=== PATIENT | female | born 1960 | race Caucasian/White ===

== ENCOUNTER 2018-04-19 13:25 | Outpatient (REF) | payer OTHER, SELFPAY ==
[2018-04-19 15:29] LABS: Anion Gap 6.9 mmol/L (3-11); BUN 18 mg/dL (7-18); CO2 33.1 mmol/L (21.0-32.0); CREATININE 1.08 mg/dL (0.55-1.02); Calcium 9.5 mg/dL (8.5-10.1); Chloride 98 mmol/L (98-107); Cholesterol 197 mg/dL (50-200); Estimated GFR 51.93 (mL/min/1.73m2); Glucose 104 mg/dL (70-100); HDL Cholesterol 79 mg/dL (40-60); LDL CHOLESTEROL 106 mg/dL (<100); Potassium 4.8 mmol/L (3.5-5.1); Sodium 138 mmol/L (136-145); Triglyceride 98 mg/dL (30-150)
[2018-04-22 10:33] LABS: Hepatitis C Ab w Rflx HCV PCR Negative (NEGAT)
== END 2018-04-19 13:45 ==
LOC: NCHCN 13:25
PROVIDERS: PCP Family Medicine; Visit Provider Family Medicine
DX: Z00.00 Encounter for general adult medical examination without abnormal findings (principal); Z13.220 Encounter for screening for lipoid disorders; Z11.59 Encounter for screening for other viral diseases; I42.9 Cardiomyopathy, unspecified; I10 Essential (primary) hypertension
CPT/HCPCS: 80048; 80061; 83721; 86803

== ENCOUNTER 2018-05-15 02:19 | Outpatient (CLI) | payer OTHER, SELFPAY ==
--- NOTE | 2018-06-10 09:31 | ZIOP_ITS ---
ZIO Patch Report DATE OF DICTATION June 10, [address] 14 days, May 15 - May 29, 2018 COMMENTS Baseline rhythm sinus. Rare single PAC. SVT noted 34 times, longest run 20 beat duration, fastest 138 beats per minute. Rare single PVC, less than 1% total beat. Rare couplet. Rare triplet. No VT. No bradycardia or block. No triggered events. No symptoms. Average rate sinus. 61 beats per minute, range 47 - 191 beats per minute. Luiz Malagon M.D. ELIA/solo T - 06/10/2018
== END 2018-05-15 02:39 ==
PROVIDERS: PCP Family Medicine; Visit Provider Family Medicine
DX: I48.91 Unspecified atrial fibrillation (principal)
CPT/HCPCS: 93225

== ENCOUNTER 2018-05-16 15:47 | Outpatient (RCR) | payer OTHER, SELFPAY ==
--- NOTE | 2018-05-16 15:48 | COCO.CNN ---
Primary Reason for Visit Medical/Dental/Vision Referral to Care Coordination Referral to Care Coordination: No Type: Other Referral to Services: No - Referral From Referral From: Self Care Plan - Plan of Care Assessment/Background: 2nd [facility] visit. Reviewed COPD triggers, provided cleaning supplies and education about making your own cleaning supplies. provided an air purifier and education about maintenance. Also provided wedge pillow. Advised client that Vacuum and matress cover had not arrived yet. Plan of Care: provide Vacuum and instruct on use.
--- NOTE | 2018-05-16 15:54 | PDOC.CNN_ITS ---
Primary Reason for Visit Medical/Dental/Vision Referral to Care Coordination Referral to Care Coordination: No Type: Other Referral to Services: No - Referral From Referral From: Self Care Plan - Plan of Care Assessment/Background: 2nd [facility] visit. Reviewed COPD triggers, provided cleaning supplies and education about making your own cleaning supplies. provided an air purifier and education about maintenance. Also provided wedge pillow. Advised client that Vacuum and matress cover had not arrived yet. Plan of Care: provide Vacuum and instruct on use.
== END 2018-06-14 23:59 | disposition home or self-care (01) ==
LOC: COCO 15:47
PROVIDERS: PCP Family Medicine; Visit Provider Family Medicine

== ENCOUNTER 2018-06-12 09:13 | Outpatient (CLI) | payer OTHER, SELFPAY ==
[2018-06-12 10:26] LABS: BUN 7 mg/dL (7-18); CREATININE 0.75 mg/dL (0.55-1.02); Calcium 9.2 mg/dL (8.5-10.1); Chloride 88 mmol/L (98-107); Glucose 95 mg/dL (70-100); Potassium 4.9 mmol/L (3.5-5.1); Sodium 125 mmol/L (136-145)
== END 2018-06-12 09:33 ==
PROVIDERS: PCP Family Medicine; Visit Provider Family Medicine
DX: I10 Essential (primary) hypertension (principal)
CPT/HCPCS: 36415; 80048

== ENCOUNTER 2018-07-03 10:11 | Outpatient (REF) | payer OTHER, SELFPAY ==
[2018-07-03 12:49] LABS: BUN 14 mg/dL (7-18); CREATININE 0.85 mg/dL (0.55-1.02); Calcium 9.6 mg/dL (8.5-10.1); Chloride 86 mmol/L (98-107); Glucose 102 mg/dL (70-100); Potassium 4.7 mmol/L (3.5-5.1)
[2018-07-03 14:05] LABS: Sodium 124 mmol/L (136-145)
== END 2018-07-03 10:31 ==
LOC: NCHCN 10:11
PROVIDERS: PCP Family Medicine; Visit Provider Family Medicine
DX: E87.1 Hypo-osmolality and hyponatremia (principal)
CPT/HCPCS: 80048

== ENCOUNTER 2018-07-12 10:38 | Outpatient (REF) | payer OTHER, SELFPAY ==
[2018-07-12 15:13] LABS: Anion Gap 7.3 mmol/L (3-11); BUN 8 mg/dL (7-18); CO2 28.7 mmol/L (21.0-32.0); CREATININE 0.86 mg/dL (0.55-1.02); Chloride 90 mmol/L (98-107); Glucose 99 mg/dL (70-100); Potassium 4.7 mmol/L (3.5-5.1); Sodium 126 mmol/L (136-145)
== END 2018-07-12 10:58 ==
LOC: NCHCN 10:38
PROVIDERS: PCP Family Medicine; Visit Provider Family Medicine
DX: E87.1 Hypo-osmolality and hyponatremia (principal)
CPT/HCPCS: 80048

== ENCOUNTER 2018-12-27 12:58 | Outpatient (REF) | payer OTHER, SELFPAY ==
[2018-12-27 19:58] LABS: Anion Gap 6.8 mmol/L (3-11); BUN 12 mg/dL (7-18); CO2 28.2 mmol/L (21.0-32.0); CREATININE 0.87 mg/dL (0.55-1.02); Calcium 9.2 mg/dL (8.5-10.1); Chloride 85 mmol/L (98-107); Glucose 107 mg/dL (70-100); Potassium 3.9 mmol/L (3.5-5.1)
[2018-12-27 20:03] LABS: Sodium 120 mmol/L (136-145)
== END 2018-12-27 13:18 ==
LOC: NCHCN 12:58
PROVIDERS: PCP Family Medicine; Visit Provider Family Medicine
DX: E87.1 Hypo-osmolality and hyponatremia (principal)
CPT/HCPCS: 80048

== ENCOUNTER 2019-01-12 15:40 | Emergency (ER) | payer OTHER, SELFPAY ==
[2019-01-12] VITALS (12 sets, daily range): BP systolic 120–136; BP diastolic 68–85; PULSE 72–90; RESP 16; TEMP 36–37.6; O2SAT 92–96
[2019-01-12] MEDS: Ondansetron 4 MG/2 ML VIAL IVP (16:08)
[2019-01-12] MEDS: Normal Saline 250 ML 500 ML IV (16:08)
--- NOTE | 2019-01-12 16:13 | ED.GENADUL_ITS ---
Discharge Plan Disposition Patient Disposition: HOME Condition: Stable Discharge Details Chief Complaint: Nausea/Vomit/Diar Clinical Impression: Nausea & vomiting, Hyponatremia, Hypomagnesemia Primary Care Provider: Hardy Eagle ED Provider: Luiz Chery Home Meds and New Rx's Prescriptions: New ondansetron 4 mg tablet,disintegrating 4 mg PO QID 5 Days Qty: 20 RF: 0 Continued nicotine 14 MG/24 HR patch 24 hour 14 mg Transdermal DAILY PRN PRNQty: 7 RF: 0 multivit, iron, min no.8, FA [Therapeutic-M] 1 TAB tablet 1 tab PO BID Qty: 200 RF: 0 fluoxetine 10 MG tablet 10 mg PO DAILY Qty: 30 RF: 1 folic acid 1 MG tablet 1 mg PO DAILY Qty: 100 RF: 0 lisinopril 5 MG tablet 5 mg PO DAILY Qty: 30 RF: 1 metoprolol tartrate 100 MG tablet 100 mg PO BID Qty: 60 RF: 1 furosemide 20 MG tablet 20 mg PO QAM Qty: 30 RF: 1 ipratropium bromide 0.2 MG/ML solution 0.2 mg Inhalation BID Qty: 25 RF: 1 albuterol sulfate 0.63 MG/3 ML solution for nebulization 0.63 mg Inhalation BID Qty: 25 RF: 1 ciprofloxacin HCl 500 MG tablet 500 mg PO BID Qty: 20 RF: 0 famotidine 20 MG tablet 20 mg PO BID Qty: 60 RF: 1 Discharge Instructions Instructions: Hyponatremia (ED), Hypomagnesemia (ED) Additional Instructions: your sodium and magnesium was found to be low and you also had evidence of dehydration from the nausea and vomit Continue to use the ondansetron every 4 hours as needed for nausea/vomit follow up this week with your primary care provider's office and you will likely need your sodium and magnesium level along with your kidney function rechecked if you feel you are becoming more ill, have persistent vomit despite medications or new symptoms such as severe abdominal pain return to the emergency department Medical Decision Making 58 yo female comes in with 3-4 days of n/v. She denies recent travel, new foods or known sick contacts. She can't think of anything that makes it better or worse. She is sitting in the stretcher in n odistress speaking in full sentences. She denies chest pain or pressure or abdominal pain nor sob. She has no abdominal tenderness or distention on exam. Given her exam I feel it is unlikely she has acute surgical pathology such as cholecystitis, sbo or other surgical pathology so do not feel ct imaging indicated at this time. Given no chest pain or pressure or sob do not feel acs workup indicated. Will tx her symptoms and evaluate for electrolyte abnormalities and monitor pt remains stable and is ambulating and drinking fluids without problems and states she feels better and has no complaints now and still has no abdominal pain. Her labs are notable for nonspecifi leukocytosis, is not having any fevers or other infectious symptoms so doubt infectious etiology at this time. Also has low mag and Na of 125. She does have hx of having low Na and with her hx of cardiomyopathy and being on lasix suspect this as the cause. Given she feels better and is tolerating PO I feel discharge with outpatient f/u is reasonable and the patient is also in agreement with this and feels well to go home. She understands to return immediately if worsening and to f/u with pcp this week Differential Diagnosis pancreatitis, food illness, colitis, gastroenteritis Medical Records Medical records reviewed: Yes I reviewed the patient's medical records. Lab Data Lab results reviewed: Yes I reviewed the patient's lab results. HPI General Mode of arrival: wheelchair . Date/Time Provider Initiated Documentation: 01/12/19 15:45 . Limitations to Documentation: no limitations . Information obtained by: patient . History of Present Illness 58 year old F presents to the emergency department with the chief complaint of vomit, described as moderate, Patient started experiencing this day(s) (4) and it has been constant. No relieving factors improve symptom(s), No exacerbating factors reported . Patient notes no other symptoms.. Patient did receive the following treatments prior to arrival, none Related Data Home Medications Medication Instructions Recorded Confirmed albuterol sulfate 0.63 mg INHALATION BID #25 vial.neb 07/10/16 ciprofloxacin HCl 500 mg PO BID #20 tab 07/10/16 famotidine 20 mg PO BID #60 tab 07/10/16 fluoxetine 10 mg PO DAILY #30 tab 07/10/16 folic acid 1 mg PO DAILY #100 tab 07/10/16 furosemide 20 mg PO QAM #30 tablet 07/10/16 ipratropium bromide 0.2 mg INHALATION BID #25 solution 07/10/16 lisinopril 5 mg PO DAILY #30 tab 07/10/16 metoprolol tartrate 100 mg PO BID #60 tablet 07/10/16 multivit, iron, min no.8, FA 1 tab PO BID #200 tab 07/10/16 [Therapeutic-M] nicotine 14 mg TRANSDERMAL DAILY PRN PRN #7 07/10/16 patch ondansetron 4 mg PO QID 5 Days #20 tab 01/12/19 Previous Rx's Medication Instructions Recorded albuterol sulfate 0.63 mg INHALATION BID #25 vial.neb 07/10/16 ciprofloxacin HCl 500 mg PO BID #20 tab 07/10/16 famotidine 20 mg PO BID #60 tab 07/10/16 fluoxetine 10 mg PO DAILY #30 tab 07/10/16 folic acid 1 mg PO DAILY #100 tab 07/10/16 furosemide 20 mg PO QAM #30 tablet 07/10/16 ipratropium bromide 0.2 mg INHALATION BID #25 solution 07/10/16 lisinopril 5 mg PO DAILY #30 tab 07/10/16 metoprolol tartrate 100 mg PO BID #60 tablet 07/10/16 multivit, iron, min no.8, FA 1 tab PO BID #200 tab 07/10/16 [Therapeutic-M] nicotine 14 mg TRANSDERMAL DAILY PRN PRN #7 07/10/16 patch ondansetron 4 mg PO QID 5 Days #20 tab 01/12/19 Allergies Allergy/AdvReac Type Severity Reaction Status Date / Time No Known Allergies Allergy Unverified 07/04/16 09:45 General Stated Complaint: Nausea/Vomit/Diar MAYA: 3 Review of Systems Review of Systems All systems reviewed & are unremarkable except as noted in HPI and below Constitutional Denies chills, Denies fever(s) and Denies weakness ENT Denies change in voice Cardiovascular Denies chest pain and Denies dyspnea Respiratory Denies cough and Denies dyspnea Gastrointestinal Denies abdominal pain and Denies vomiting Genitourinary Denies dysuria Musculoskeletal Denies joint swelling Integumentary/Breasts Denies rash Neurologic Denies weakness PFSH Medical History COPD (chronic obstructive pulmonary disease) (Chronic) Surgical History EGD - MAC (07/04/16) Social History Smoking/Tobacco Use Status: Former Tobacco Use Alcohol Intake: former Substance use type: does not use Do you feel safe in your relationship?: Yes Exam Const General: no acute distress Orientation: alert HENNJ Head: normal to inspection Ears: external ears normal General nose exam: external nose normal Mouth: moist mucous membranes Eyes General: appearance normal, both eyes and all related structures Neck Neck: normal visual inspection Resp Effort & Inspection: normal respiratory effort and able to speak in complete sentences Cardio Rate: regular rate Skin General skin exam: no rashes or lesions noted Neuro General: alert and oriented x3 Extrem General: normal to inspection Psych Mental Status: mental status grossly normal Course Vital Signs Temperature 36 C L 01/12/19 15:52 Pulse 90 01/12/19 15:52 Respiratory Rate 16 01/12/19 15:52 Blood Pressure 120/68 01/12/19 15:52 Pulse Oximetry 92 L 01/12/19 15:52 Temperature 36 C L 01/12/19 15:52 Temperature Source Temporal Artery Scan 01/12/19 15:52 Pulse 90 01/12/19 15:52 Respiratory Rate 16 01/12/19 15:52 Respiratory Effort 01/12/19 15:54 Blood Pressure 120/68 01/12/19 15:52 Pulse Oximetry 92 L 01/12/19 15:52 Oxygen Delivery Method Room Air 01/12/19 15:52 Oxygen Flow Rate 0 01/12/19 15:52 Pain Level 4 01/12/19 16:08
[2019-01-12 16:25] LABS: Abs Immature Grans 0.11 k/cumm (0.0-0.09); Absolute Basophil Count 0.03 k/cumm (0.0-0.2); Absolute Eosinophil Count 0.06 k/cumm (0.0-0.7); Absolute Neutrophil Count 13.09 k/cumm (1.2-6.7); Basophils % 0.2; Eosinophils % 0.4; HCT 43.2 % (36.0-46.0); HGB 15.1 g/dL (12.0-15.5); Immature Grans % 0.7; Lymphocytes % 7.8; Mean Corpuscular Hemoglobin 29.7 pg (27.0-33.0); Mean Platelet Volume 8.4 fL (8.0-11.0); Monocytes % 8.8; Neutrophils % 82.1; Platelet Count 354 x1000/uL (130-400); RBC 5.08 m/cumm (4.00-5.20); RBC Distribution Width 13.3 % (11.7-14.6); White Blood Cell Count 15.95 k/cumm (4.4-10.8)
[2019-01-12 16:29] LABS: Absolute Lymphocyte Count 1.24 k/cumm (1.2-3.4)
[2019-01-12 16:40] LABS: ALT 24 U/L (12-78); AST 16 U/L (15-37); Alkaline Phosphatase 103 U/L (46-116); Anion Gap 12.3 mmol/L (3-11); BUN 34 mg/dL (7-18); Bilirubin, Total 1.2 mg/dL (0.2-1.0); CO2 29.7 mmol/L (21.0-32.0); CREATININE 1.44 mg/dL (0.55-1.02); Chloride 83 mmol/L (98-107); Estimated GFR 37.13 (mL/min/1.73m2); Glucose 115 mg/dL (70-100); Lipase 243 U/L (73-393); Magnesium 1.5 mg/dL (1.8-2.4); Potassium 3.9 mmol/L (3.5-5.1); Prothrombin Time 10.1 sec (9.3-11.0)
[2019-01-12 16:43] LABS: Sodium 125 mmol/L (136-145)
--- NOTE | 2019-01-18 11:40 | NUR.NOTE ---
PCP referral faxed to patient's pcp [facility]. Dr. Eagle.Nursing Note:
== END 2019-01-12 17:23 | disposition home or self-care (01) ==
LOC: ER 17:27
PROVIDERS: Emergency Provider Emergency Medicine; PCP Family Medicine
DX: R11.2 Nausea with vomiting, unspecified (principal); E87.1 Hypo-osmolality and hyponatremia; E83.42 Hypomagnesemia; E86.0 Dehydration; I42.9 Cardiomyopathy, unspecified; J44.9 Chronic obstructive pulmonary disease, unspecified; Z87.891 Personal history of nicotine dependence
CPT/HCPCS: 80053; 83690; 96361; 96374; 99284; 83735; 85025; 85610; 85730; 99283; J2405

== ENCOUNTER 2019-01-14 08:30 | Observation (INO) | payer OTHER, SELFPAY ==
[2019-01-14] VITALS (7 sets, daily range): BP systolic 101–129; BP diastolic 65–84; PULSE 69–107; RESP 1–18; TEMP 36.2–37.1; O2SAT 87–94
--- NOTE | 2019-01-14 08:47 | ED.GENADUL_ITS ---
Discharge Plan Disposition Patient Disposition: [facility]IENT Condition: Stable Discharge Details Chief Complaint: Nausea/Vomit/Diar Clinical Impression: Inguinal hernia of left side with obstruction Admit Date/Time: 01/14/19 11:56 Admit Provider: Odette Cormier Attending Provider: Odette Cormier Primary Care Provider: [facility] Eagle ED Provider: Roni Scott Discharge Data Discharge Date/Time-TO BE ENTERED AT DEPARTURE: 01/14/19 13:02 Medical Decision Making Patient presenting to the emergency department for chief complaint of nausea vomiting. Patient states this been going on for 5 days. She denies any fever chills, belly pain, spoiled or rotten food that she is eaten, or diarrhea. She does state that she was seen here couple days ago and her sodium was low and was slightly dehydrated. Patient does state history of low sodium in the past. Patient denies any chest pain, shortness of breath, or difficulty breathing,. Physical exam shows a distended but nontender abdomen, hypoactive bowel sounds, no CVA tenderness and otherwise unremarkable examination. Plan to check labs and CT imaging given the patient is having continued symptoms and was not imaged during previous visit. Pending results patient given Phenergan and IV fluids Review of labs show hyponatremia, decreased renal function, and nonspecific leukocytosis. Speaking with radiologist and review of radiological imaging shows a left inguinal hernia that also does show evidence of bowel obstruction. Lactate was ordered and reviewed at 1.7. Did call and speak with Dr. Cormier who came and evaluated the patient. She was able to reduce the hernia in the emergency department but did recommend admission due to hydration status and continued nausea vomiting. Patient was in agreement with this plan of care. HPI General Mode of arrival: ambulatory . Date/Time Provider Initiated Documentation: 01/14/19 08:36 . Limitations to Documentation: no limitations . Information obtained by: patient, RN notes reviewed and old records reviewed . History of Present Illness 58 year old F presents to the emergency department with the chief complaint of Nausea vomiting, described as moderate and similar to prior episodes, Quality is described as other (Denies abdominal pain), Patient started experiencing this day(s) (5) and it has been constant and colicky. No relieving factors improve symptom(s), No exacerbating factors reported . Patient did receive the following treatments prior to arrival, none Related Data Home Medications Medication Instructions Recorded Confirmed Therapeutic-M 1 tab PO BID #200 tab 07/10/16 01/15/19 metoprolol tartrate 100 mg PO BID #60 tablet 07/10/16 01/15/19 ondansetron 4 mg PO QID 5 Days #20 tab 01/12/19 01/15/19 albuterol sulfate 2.5 mg INHALATION BID 01/14/19 01/15/19 albuterol sulfate [ProAir HFA] 1 - 2 puff INHALATION PRN PRN 01/14/19 01/15/19 fluoxetine 20 mg PO DAILY 01/14/19 01/15/19 lisinopril 20 mg PO HS 01/14/19 01/15/19 spironolactone 50 mg PO DAILY 01/14/19 01/15/19 fluticasone furoate-vilanterol 1 inh INHALATION DAILY 01/15/19 [Breo Ellipta] Previous Rx's Medication Instructions Recorded Therapeutic-M 1 tab PO BID #200 tab 07/10/16 metoprolol tartrate 100 mg PO BID #60 tablet 07/10/16 ondansetron 4 mg PO QID 5 Days #20 tab 01/12/19 Allergies Allergy/AdvReac Type Severity Reaction Status Date / Time No Known Allergies Allergy Unverified 07/04/16 09:45 General Stated Complaint: Nausea/Vomit/Diar MAYA: 3 Review of Systems Constitutional Reports chills, Reports fever(s) and Reports poor appetite Cardiovascular Denies chest pain and Denies dyspnea Respiratory Denies dyspnea Gastrointestinal Reports as per HPI, Reports abdominal pain, Denies melena, Denies change in bowel habits, Reports constipation, Denies diarrhea, Reports nausea and Reports vomiting Genitourinary Denies hematuria, Denies urinary incontinence, Denies urinary hesitancy and Denies urinary urgency Integumentary/Breasts Denies rash [facility] Medical History History of gastric ulcer (Resolved) History of alcoholism (Resolved) History of CHF (congestive heart failure) (Resolved) Hypertension (Chronic) COPD (chronic obstructive pulmonary disease) (Chronic) Surgical History EGD - MAC (07/04/16) Social History Smoking/Tobacco Use Status: Former Tobacco Use Alcohol Intake: former Substance use type: does not use Do you feel safe at home: Yes Do you feel safe in your relationship?: Yes Exam Const General: cooperative Orientation: alert, awake and oriented x3 Resp Effort & Inspection: normal respiratory effort and able to speak in complete sentences Auscultation: clear to auscultation bilaterally Cardio Rate: regular rate Rhythm: regular rhythm Heart Sounds: S1 normal and S2 normal GI Inspection: distended Palpation: soft, not firm, no guarding, no masses, no pulsatile masses, not rigid, no splenomegaly and nontender Auscultation: hypoactive bowel sounds Back/Spine/Pelvis Back: no CVA tenderness Neuro General: alert, awake, oriented x3, gait normal and moves all extremities Course Vital Signs Temperature 36.8 C 01/14/19 08:40 Pulse 86 01/14/19 08:40 Respiratory Rate 18 01/14/19 08:40 Blood Pressure 103/78 01/14/19 08:40 Pulse Oximetry 94 L 01/14/19 08:40 Temperature 36.8 C 01/14/19 08:40 Temperature Source Skin 01/14/19 08:40 Pulse 86 01/14/19 08:40 Respiratory Rate 18 01/14/19 08:40 Blood Pressure 103/78 01/14/19 08:40 Blood Pressure Position Sitting 01/14/19 08:40 Pulse Oximetry 94 L 01/14/19 08:40
[2019-01-14 09:07] LABS: Abs Immature Grans 0.14 k/cumm (0.0-0.09); Absolute Lymphocyte Count 1.18 k/cumm (1.2-3.4); Basophils % 0.2; Eosinophils % 0.2; HCT 42.2 % (36.0-46.0); HGB 15.1 g/dL (12.0-15.5); Immature Grans % 0.8; Lymphocytes % 6.7; Mean Corp. HGB Concentration 35.8 g/dL (32.0-36.0); Mean Corpuscular Hemoglobin 30.3 pg (27.0-33.0); Mean Corpuscular Volume 84.7 fL (80-95); Mean Platelet Volume 8.7 fL (8.0-11.0); Monocytes % 9.1; Platelet Count 323 x1000/uL (130-400); RBC 4.98 m/cumm (4.00-5.20); RBC Distribution Width 13.2 % (11.7-14.6); White Blood Cell Count 17.58 k/cumm (4.4-10.8)
[2019-01-14 09:08] LABS: Absolute Basophil Count 0.04 k/cumm (0.0-0.2); Absolute Eosinophil Count 0.04 k/cumm (0.0-0.7); Absolute Neutrophil Count 14.59 k/cumm (1.2-6.7)
[2019-01-14] MEDS: Normal Saline 1,000 ML 1000 ML IV ×2 (09:10→12:48)
[2019-01-14 09:21] LABS: Diff Comment Diff Reviewed; RBC Morphology Normal
[2019-01-14 09:44] LABS: ALT 21 U/L (12-78); AST 27 U/L (15-37); Albumin 4.1 g/dL (3.4-5.0); Alkaline Phosphatase 103 U/L (46-116); Anion Gap 14.6 mmol/L (3-11); BUN 57 mg/dL (7-18); Bilirubin, Total 1.2 mg/dL (0.2-1.0); CO2 29.4 mmol/L (21.0-32.0); CREATININE 2.43 mg/dL (0.55-1.02); Calcium 10.3 mg/dL (8.5-10.1); Chloride 80 mmol/L (98-107); Glucose 112 mg/dL (70-100); Lipase 232 U/L (73-393); Magnesium 1.7 mg/dL (1.8-2.4); Potassium 4.6 mmol/L (3.5-5.1); Total Protein 8.3 g/dL (6.4-8.2)
[2019-01-14 09:53] LABS: Sodium 124 mmol/L (136-145)
--- NOTE | 2019-01-14 10:15 | DI.CT_ITS ---
SYMPTOM/DIAGNOSIS: VOMITING, CONSTIPATION. NONCONTRAST CT ABDOMEN AND PELVIS: There are no prior comparison exams. Images were performed from the level of the adrenals through the ischial tuberosities without IV or oral contrast. There is a left inguinal hernia containing a loop of small bowel which appears obstructing. There is some thickening of the bowel wall which could indicate strangulation. There is dilatation of proximal small bowel loops. The stomach is not fully included on the exam. The colon is decompressed. There are a few scattered diverticula. The appendix appears normal. There is no free air or free fluid. The bladder is unremarkable. The uterus is markedly enlarged likely secondary to fibroids. The ovaries are unremarkable. The inferior portions of the liver and spleen appear normal. There is mild bilateral adrenal prominence without focal mass. There is no hydronephrosis or renal calculi. The aorta shows some calcification but is normal in diameter. There are severe degenerative changes as well as scoliosis in the lumbar spine. There is a tiny fatty containing hernia just above the umbilicus IMPRESSION: Left inguinal hernia containing a loop of small bowel causing obstruction.
[2019-01-14 10:36] LABS: Lactate-non-spesis 1.7 mmol/l (0.6-1.4)
--- NOTE | 2019-01-14 12:05 | W.PM.HP.N ---
Date of service: 01/14/19 Time of Service: 12:27 Assessment and Plan (1) Dehydration: Current visit: Yes Status: Acute The patient has had several days of vomiting and poor PO intake. Needs placement in the hospital for fluids and repeat labs. (2) Small bowel obstruction: Current visit: Yes Status: Acute The cause appears to be a left inguinal hernia. This was easily reduced. There is no evidence of ischemia on exam. Needs admission to ensure symptoms to not persist and she can tolerated PO. She did start having stools in the ER. Will plan to repair within the next week or so on an outpatient basis. History of Present Illness Narrative: This 58-year-old patient presented to the emergency department with complaints of vomiting all night long. This is been occurring intermittently for several days. She reports some vague abdominal discomfort but no significant pain. She has been passing flatus although is not having regular bowel movements. She had a CT scan of the abdomen pelvis which I reviewed. There is evidence of a small bowel obstruction with hernia. Patient had noted a bulge there about a year ago but was not recently aware of it. She denies recent bronchitis or pneumonia which may have exacerbated the hernia. She does have a long-standing history of COPD. Review of Systems Constitutional Denies fatigue and Denies headache(s) Eyes Denies change in vision ENT Denies headache(s) and Denies neck mass Cardiovascular Denies chest pain, Denies edema and Denies palpitations Respiratory Denies cough and Denies wheezing Gastrointestinal Denies hematochezia Genitourinary Denies abnormal vaginal bleeding and Denies dysuria Musculoskeletal Denies joint swelling Integumentary/Breasts Denies new lesions and Denies rash Neurologic Denies confusion, Denies headache(s) and Denies focal weakness Psychiatric Reports system reviewed and no additional complaints, except as docu and Denies confusion Endocrine Denies fatigue and Denies palpitations Hematologic/Lymphatic Denies easy bleeding and Denies lymphadenopathy Allergic/Immunologic Denies wheezing [facility] Medical History History of gastric ulcer (Resolved) History of alcoholism (Resolved) History of CHF (congestive heart failure) (Resolved) Hypertension (Chronic) COPD (chronic obstructive pulmonary disease) (Chronic) Surgical History EGD - MAC (07/04/16) Social History Smoking/Tobacco Use Status: Former Tobacco Use Alcohol Intake: former Substance use type: does not use Do you feel safe at home: Yes Do you feel safe in your relationship?: Yes Meds Home Medications Medication Instructions Recorded Confirmed Type albuterol sulfate 0.63 mg INHALATION BID #25 vial.neb 07/10/16 Rx ciprofloxacin HCl 500 mg PO BID #20 tab 07/10/16 Rx famotidine 20 mg PO BID #60 tab 07/10/16 Rx fluoxetine 10 mg PO DAILY #30 tab 07/10/16 Rx folic acid 1 mg PO DAILY #100 tab 07/10/16 Rx furosemide 20 mg PO QAM #30 tablet 07/10/16 Rx ipratropium bromide 0.2 mg INHALATION BID #25 solution 07/10/16 Rx lisinopril 5 mg PO DAILY #30 tab 07/10/16 Rx metoprolol tartrate 100 mg PO BID #60 tablet 07/10/16 Rx multivit, iron, min no.8, FA 1 tab PO BID #200 tab 07/10/16 Rx [Therapeutic-M] nicotine 14 mg TRANSDERMAL DAILY PRN PRN #7 07/10/16 Rx patch ondansetron 4 mg PO QID 5 Days #20 tab 01/12/19 Rx Allergies Allergy/AdvReac Type Severity Reaction Status Date / Time No Known Allergies Allergy Unverified 07/04/16 09:45 Exam Const General: not in acute distress Nutritional Appearance: well nourished Orientation: oriented x3 HENMT Head: normal to inspection Eyes Sclera: sclerae normal Pupils: PERRL Neck Neck: no lymphadenopathy Carotids: no bruits Lymphatic: no lymphadenopathy noted Resp Effort & Inspection: normal respiratory effort Auscultation: clear to auscultation bilaterally and no wheezes Cardio Rate: regular rate Rhythm: regular rhythm Pulses: dorsalis pedis pulses present GI Inspection: non-distended Palpation: soft, no hepatosplenomegaly and nontender Other: Soft, nontender hernia in left groin with bowel present. No overlying skin change. Reduced with gentle pressure. Skin General skin exam: no rashes or lesions noted Neuro General: alert Cognition: normal cognition Extrem General: normal to inspection Psych Affect: normal affect Attitude: cooperative Results Labs : 01/14/19 09:00 01/14/19 09:00 Laboratory Results - last 24 hr 01/14/19 01/14/19 01/14/19 09:00 09:00 10:30 WBC 17.58 H RBC 4.98 Hgb 15.1 Hct 42.2 MCV 84.7 MCH 30.3 MCHC 35.8 RDW 13.2 Plt Count 323 MPV 8.7 Immature Gran % 0.8 Neutrophils % 83.0 Lymphocytes % 6.7 Monocytes % 9.1 Eosinophils % 0.2 Basophils % 0.2 Absolute Neutrophils 14.59 H Absolute Lymphocytes 1.18 L Absolute Monocytes 1.60 H Absolute Eosinophils 0.04 Absolute Basophils 0.04 Differential Comment Diff reviewed RBC Morphology Normal Sodium 124 L* Potassium 4.6 Chloride 80 L Carbon Dioxide 29.4 Anion Gap 14.6 H BUN 57 H D Creatinine 2.43 H D Estimated GFR/1.73 m2 20.30 Glucose 112 H Lactate 1.7 H Calcium 10.3 H Magnesium 1.7 L Total Bilirubin 1.2 H AST 27 ALT 21 Alkaline Phosphatase 103 Total Protein 8.3 H Albumin 4.1 Lipase 232 Last Vital Signs Temp 98.2 F 01/14/19 08:40 Pulse 86 01/14/19 08:40 Resp 18 01/14/19 08:40 BP 103/78 01/14/19 08:40 Pulse Ox 94 L 01/14/19 08:40
[2019-01-14] MEDS: Normal Saline 1,000 ML 125 ML IV ×2 (13:35→22:44)
[2019-01-14] MEDS: Acetaminophen 325 MG TAB 650 MG PO (13:46)
[2019-01-14] MEDS: MORPHine 2 MG/ML SYR IVP ×2 (15:20→21:19)
[2019-01-14 15:56] LABS: Bilirubin Small (Negative); Blood Trace-intact (Negative); Clarity Clear (Clear); Glucose Negative (Negative); Ketones 40 mg/dL (Negative); Leukocyte Esterase Negative (Negative); Nitrite Negative (Negative); Specific Gravity 1.015 (1.005-1.025); Urobilinogen 0.2 EU/dL (Up TO 0.2); pH 5.5 (5-8)
[2019-01-14 16:13] LABS: Bacteria Rare HPF (Negative); C & S Indicated? No; Casts 0-2 Hyaline LPF (Negative); Crystals Negative HPF (Negative); Epithelial Cells Rare HPF (Negative); Mucus Negative (Negative)
[2019-01-14] MEDS: Normal Saline Flush 10 ML SYR IVP (20:06)
[2019-01-14] MEDS: Metoprolol 50 MG TAB 100 MG PO (20:06)
[2019-01-14] MEDS: Famotidine 20 MG TAB PO (20:06)
[2019-01-14] MEDS: Albuterol 2.5 MG/3 ML INH SOLN VIAL IH (20:20)
[2019-01-14] MEDS: Ipratropium 0.5 MG/2.5 ML UPD VIAL IH (20:21)
[2019-01-14] MEDS: Lisinopril 20 MG TAB PO (21:14)
[2019-01-15] MEDS: Normal Saline 1,000 ML 125 ML IV ×2 (06:19→13:58)
--- NOTE | 2019-01-15 06:59 | PGE_ITS ---
Documented by User: KENDALL Min 01/15/19 06:59 Date of Service Date of service: 01/15/19 Time of Service: 06:50 Assessment and Plan (1) Small bowel obstruction: Current visit: Yes Status: Acute Abdominal pain has resolved. (+) BM Tolerating clear liquids. Will progress to soft diet for breakfast denies nausea and vomiting. Disposition- D/C home once tolerating regular diet. (2) Dehydration: Current visit: Yes Status: Acute Subjective Interval history since last seen: I am so much better than yesterday. Denies nausea and vomiting. Diarrhea has resolved, after having multiple BMs yesterday. Denies any abdominal pain. Exam Const General: cooperative, healthy appearing and comfortable Orientation: alert and oriented x3 Resp Effort & Inspection: normal respiratory effort, no audible wheezes and no cough Auscultation: clear to auscultation bilaterally Cardio Rate: regular rate Rhythm: regular rhythm Heart Sounds: S1 normal, S2 normal and no murmurs GI Inspection: normal to inspection and non-distended Palpation: soft, no guarding and nontender Auscultation: normal bowel sounds Objective Objective Clinical Data: Abnormal lab results 01/14/19 01/14/19 01/14/19 Range/Units 09:00 09:00 10:30 WBC 17.58 H (4.4-10.8) k/cumm Absolute Neutrophils 14.59 H (1.2-6.7) k/cumm Absolute Lymphocytes 1.18 L (1.2-3.4) k/cumm Absolute Monocytes 1.60 H (0.11-0.7) k/cumm Sodium 124 L* (136-145) mmol/L Chloride 80 L (98-107) mmol/L Anion Gap 14.6 H (3-11) mmol/L BUN 57 H D (7-18) mg/dL Creatinine 2.43 H D (0.55-1.02) mg/dL Glucose 112 H (70-100) mg/dL Lactate 1.7 H (0.6-1.4) mmol/l Calcium 10.3 H (8.5-10.1) mg/dL Magnesium 1.7 L (1.8-2.4) mg/dL Total Bilirubin 1.2 H (0.2-1.0) mg/dL Total Protein 8.3 H (6.4-8.2) g/dL Urine Ketones (Negative) mg/dL Urine Blood (Negative) Urine Bilirubin (Negative) Urine RBC (0-2) 01/14/19 Range/Units 15:30 WBC (4.4-10.8) k/cumm Absolute Neutrophils (1.2-6.7) k/cumm Absolute Lymphocytes (1.2-3.4) k/cumm Absolute Monocytes (0.11-0.7) k/cumm Sodium (136-145) mmol/L Chloride (98-107) mmol/L Anion Gap (3-11) mmol/L BUN (7-18) mg/dL Creatinine (0.55-1.02) mg/dL Glucose (70-100) mg/dL Lactate (0.6-1.4) mmol/l Calcium (8.5-10.1) mg/dL Magnesium (1.8-2.4) mg/dL Total Bilirubin (0.2-1.0) mg/dL Total Protein (6.4-8.2) g/dL Urine Ketones 40 H (Negative) mg/dL Urine Blood Trace-intact H (Negative) Urine Bilirubin Small H (Negative) Urine RBC 3-5 H (0-2) Vital Signs Temperature 36.2 C L 01/14/19 20:02 Temperature Source Tympanic 01/14/19 20:02 Pulse 107 H 01/14/19 20:02 Pulse Rhythm Regular 01/14/19 21:55 Respiratory Rate 16 01/14/19 20:02 Respiratory Effort 01/14/19 21:55 Respiratory Depth Normal 01/14/19 21:55 Respiratory Pattern Normal 01/14/19 21:55 Blood Pressure 128/84 01/14/19 20:02 Blood Pressure Position Sitting 01/14/19 08:40 Pulse Oximetry 94 L 01/14/19 20:02 Oxygen Delivery Method Room Air 01/14/19 20:02 Oxygen Flow Rate 0 01/14/19 20:02 Pain Level 4 01/14/19 21:19 Comment 01/14/19 16:22 Intake & Output 01/14/19 01/14/19 01/15/19 06:59 18:59 06:59 Intake Total 551 / 3938.917 3387.917 / 3938.917 Output Total 400 / 400 Balance 151 / 3538.917 3387.917 / 3538.917 Weight 69.9 kg Intake: IV 51 / 8843.078 9411. Oral 500 / 0 144 / 1939 Output: Urine 400 / 400 Other: Urine Color Yellow Urine Appearance Clear Comment voiding not witnessed as pt has BRP Stool Size Small Large Stool Characteristics Liquid Brown Voiding Methods Toilet Toilet Laboratory Results WBC 17.58 k/cumm (4.4-10.8) H 01/14/19 09:00 RBC 4.98 m/cumm (4.00-5.20) 01/14/19 09:00 Hgb 15.1 g/dL (12.0-15.5) 01/14/19 09:00 Hct 42.2 % (36.0-46.0) 01/14/19 09:00 MCV 84.7 fL (80-95) 01/14/19 09:00 MCH 30.3 pg (27.0-33.0) 01/14/19 09:00 MCHC 35.8 g/dL (32.0-36.0) 01/14/19 09:00 RDW 13.2 % (11.7-14.6) 01/14/19 09:00 Plt Count 323 x1000/uL (130-400) 01/14/19 09:00 MPV 8.7 fL (8.0-11.0) 01/14/19 09:00 Immature Gran % 0.8 01/14/19 09:00 Neutrophils % 83.0 01/14/19 09:00 Lymphocytes % 6.7 01/14/19 09:00 Monocytes % 9.1 01/14/19 09:00 Eosinophils % 0.2 01/14/19 09:00 Basophils % 0.2 01/14/19 09:00 Absolute Neutrophils 14.59 k/cumm (1.2-6.7) H 01/14/19 09:00 Absolute Lymphocytes 1.18 k/cumm (1.2-3.4) L 01/14/19 09:00 Absolute Monocytes 1.60 k/cumm (0.11-0.7) H 01/14/19 09:00 Absolute Eosinophils 0.04 k/cumm (0.0-0.7) 01/14/19 09:00 Absolute Basophils 0.04 k/cumm (0.0-0.2) 01/14/19 09:00 Differential Comment Diff reviewed 01/14/19 09:00 RBC Morphology Normal 01/14/19 09:00 Sodium 124 mmol/L (136-145) L* 01/14/19 09:00 Potassium 4.6 mmol/L (3.5-5.1) 01/14/19 09:00 Chloride 80 mmol/L (98-107) L 01/14/19 09:00 Carbon Dioxide 29.4 mmol/L (21.0-32.0) 01/14/19 09:00 Anion Gap 14.6 mmol/L (3-11) H 01/14/19 09:00 BUN 57 mg/dL (7-18) H D 01/14/19 09:00 Creatinine 2.43 mg/dL (0.55-1.02) H D 01/14/19 09:00 Estimated GFR/1.73 m2 20.30 (mL/min/1.73m2) 01/14/19 09:00 Glucose 112 mg/dL (70-100) H 01/14/19 09:00 Lactate 1.7 mmol/l (0.6-1.4) H 01/14/19 10:30 Calcium 10.3 mg/dL (8.5-10.1) H 01/14/19 09:00 Magnesium 1.7 mg/dL (1.8-2.4) L 01/14/19 09:00 Total Bilirubin 1.2 mg/dL (0.2-1.0) H 01/14/19 09:00 AST 27 U/L (15-37) 01/14/19 09:00 ALT 21 U/L (12-78) 01/14/19 09:00 Alkaline Phosphatase 103 U/L (46-116) 01/14/19 09:00 Total Protein 8.3 g/dL (6.4-8.2) H 01/14/19 09:00 Albumin 4.1 g/dL (3.4-5.0) 01/14/19 09:00 Lipase 232 U/L (73-393) 01/14/19 09:00 Urine Color Yellow (Yellow) 01/14/19 15:30 Urine Clarity Clear (Clear) 01/14/19 15:30 Urine pH 5.5 (5-8) 01/14/19 15:30 Ur Specific [place] 1.015 (1.005-1.025) 01/14/19 15:30 Urine Protein Negative mg/dL (Negative) 01/14/19 15:30 Urine Ketones 40 mg/dL (Negative) H 01/14/19 15:30 Urine Blood Trace-intact (Negative) H 01/14/19 15:30 Urine Nitrite Negative (Negative) 01/14/19 15:30 Urine Bilirubin Small (Negative) H 01/14/19 15:30 Urine Urobilinogen 0.2 EU/dL (Up TO 0.2) 01/14/19 15:30 Ur Leukocyte Esterase Negative (Negative) 01/14/19 15:30 Urine RBC 3-5 (0-2) H 01/14/19 15:30 Urine WBC 3-5 HPF (0-5) 01/14/19 15:30 Ur Epithelial Cells Rare HPF (Negative) 01/14/19 15:30 Urine Crystals Negative HPF (Negative) 01/14/19 15:30 Urine Bacteria Rare HPF (Negative) 01/14/19 15:30 Urine Casts 0-2 hyaline LPF (Negative) 01/14/19 15:30 Urine Mucus Negative (Negative) 01/14/19 15:30 Ur Culture Indicated? No 01/14/19 15:30 Urine Glucose Negative mg/dL (Negative) 01/14/19 15:30 Documented by User: Oneyda Harris MD 01/15/19 13:25
[2019-01-15 07:17] LABS: Abs Immature Grans 0.04 k/cumm (0.0-0.09); Absolute Basophil Count 0.02 k/cumm (0.0-0.2); Absolute Eosinophil Count 0.13 k/cumm (0.0-0.7); Absolute Lymphocyte Count 0.86 k/cumm (1.2-3.4); Absolute Monocyte Count 0.47 k/cumm (0.11-0.7); Absolute Neutrophil Count 4.12 k/cumm (1.2-6.7); Basophils % 0.4; Eosinophils % 2.3; HCT 35.3 % (36.0-46.0); HGB 11.9 g/dL (12.0-15.5); Immature Grans % 0.7; Lymphocytes % 15.2; Mean Corp. HGB Concentration 33.7 g/dL (32.0-36.0); Mean Corpuscular Hemoglobin 29.7 pg (27.0-33.0); Mean Platelet Volume 8.6 fL (8.0-11.0); Monocytes % 8.3; Neutrophils % 73.1; Platelet Count 218 x1000/uL (130-400); RBC 4.01 m/cumm (4.00-5.20); RBC Distribution Width 13.1 % (11.7-14.6); White Blood Cell Count 5.64 k/cumm (4.4-10.8)
[2019-01-15 07:29] LABS: Anion Gap 7.2 mmol/L (3-11); BUN 29 mg/dL (7-18); CO2 26.8 mmol/L (21.0-32.0); Calcium 8.3 mg/dL (8.5-10.1); Chloride 97 mmol/L (98-107); Estimated GFR 45.83 (mL/min/1.73m2); Glucose 98 mg/dL (70-100); Potassium 3.6 mmol/L (3.5-5.1); Sodium 131 mmol/L (136-145)
[2019-01-15 08:20] VITALS: BP 115/72; PULSE 70; RESP 18; TEMP 36.9; O2SAT 91
[2019-01-15] MEDS: Famotidine 20 MG TAB PO (08:27)
[2019-01-15] MEDS: Metoprolol 50 MG TAB 100 MG PO (08:27)
[2019-01-15] MEDS: FLUoxetine 20 MG CAP PO (08:27)
[2019-01-15 10:15] VITALS: PULSE 77; O2SAT 100
[2019-01-15] MEDS: Albuterol 2.5 MG/3 ML INH SOLN VIAL IH (10:15)
[2019-01-15] MEDS: Ipratropium 0.5 MG/2.5 ML UPD VIAL IH (10:15)
--- NOTE | 2019-01-15 11:14 | INITIAL_ITS ---
- If Service Date Differs Date of service: 01/15/19 Time of Service: 10:42 Care Management Initial Assess REASON FOR HOSPITALIZATION:: SBO PAST MEDICAL HISTORY/PAST SURGICAL HISTORY:: Gastric ulcer, etoh, CHF, cardiomyopathy, iron deficency, COPD PREVIOUS FUNCTIONAL STATUS/SOCIAL/FAMILY SUPPORTS:: Deepthi lives in her own home in [place], [place] with her spouse. Her daughter Evonne lives in the upstairs apartment and her grandson. She drives minimally her spouse provides transportation. CURRENT FUNCTIONAL STATUS:: Deepthi is alert she is concerned r/t to her spouse in the ED with chest pain she ADVANCE DIRECTIVES:: On file daughter Evonne is the agent Has patient been provided with information about the portal?: Yes Did the patient sign up for the portal?: No (information provided) CODE STATUS:: Full Code INSURANCE COVERAGE / FINANCIAL ISSUES:: [facility] CURRENT HOME/COMMUNITY SERVICES/EQUIPMENT:: Patient is normally independent with ADLs, does not use any assistive equipment and does not have any services in place. PRIMARY CARE PHYSICIAN:: POTENTIAL DISCHARGE NEEDS:: Scheduled follow up with surgical provider prior to discharge. PATIENT/FAMILY EDUCATION NEEDS:: Review discharge instructions regarding medications and follow up appointments. Ask me three and self management. ANTICIPATED BARRIERS TO DISCHARGE:: None identified TRANSPORTATION:: Home via private vehicle. , [facility] to transport. PLAN:: Deepthi will be discharged home when medically ready per provider. She is receiving IV fluids and pain management. Plan will be for her to return home with no additional services she is scheduled to have a hernia repair. Deepthi will follow up with provider as directed.
--- NOTE | 2019-01-15 14:19 | DSE_ITS ---
Date of service: 01/15/19 Time of Service: 14:19 DS: Diagnosis Discharge Diagnosis (1) Incarcerated inguinal hernia, unilateral: Status: Acute (2) Dehydration: Status: Acute Discharge Plan Disposition Patient Disposition: HOME Condition: Stable Discharge Details Reason For Visit: SBO, Dehydration and incarcerated IH Admit Date/Time: 01/14/19 11:56 Admit Provider: Odette Cormier Attending Provider: Odette Cormier Primary Care Provider: Hardy Eagle [facility] Hospital Course: This 58-year-old patient presented to the emergency department on 01/14/19 with complaints of vomiting all night long. This is been occurring intermittently for several days. She reports some vague abdominal discomfort but no significant pain. She has been passing flatus although is not having regular bowel movements. She had a CT scan of the abdomen pelvis which I reviewed. There is evidence of a small bowel obstruction with hernia. Patient had noted a bulge there about a year ago but was not recently aware of it. She denies recent bronchitis or pneumonia which may have exacerbated the hernia. She does have a long-standing history of COPD. The hernia was easily reduced in the ER. There were no signs of ischemic bowel on CT scan. Patient was admitted overnight for hydration and observation. She h ad several liquid stools throughout the night and the next day. At time of admission the BM's have started to become more formed. She has no abdominal pain and no N/V. She has eaten a soft diet both for breakfast and lunch without issue. Patient will be discharged to home and is scheduled for elective inguinal hernia repair with mesh with Dr. Cormier on sunday01/21/19. She is to arrive in [facility] at 0 6:15 in the morning. She is to be NPO after misnight except for a sip of water with her metformin. She was also asked to go ahead and do her breathing treatment prior to coming to the hospital. Home Meds and New Rx's Prescriptions: Continued Therapeutic-M 1 TAB tablet 1 tab PO BID Qty: 200 RF: 0 metoprolol tartrate 100 MG tablet 100 mg PO BID Qty: 60 RF: 1 ondansetron 4 mg tablet,disintegrating 4 mg PO QID 5 Days Qty: 20 RF: 0 albuterol sulfate 2.5 mg /3 mL (0.083 %) Solution For Nebulization 2.5 mg Inhalation BID RF: 0 lisinopril 20 mg Tablet 20 mg PO HS RF: 0 albuterol sulfate [ProAir HFA] 90 mcg/actuation Hfa Aerosol Inhaler 1 - 2 puff Inhalation PRN PRNRF: 0 fluoxetine 20 mg Capsule 20 mg PO DAILY RF: 0 spironolactone 50 mg Tablet 50 mg PO DAILY RF: 0 Breo Ellipta 100-25 mcg/dose Blister With Device 1 inh INHALATION DAILY RF: 0 Discharge Instructions Instructions: Inguinal Hernia (GEN), Inguinal Hernia Repair (GEN) Additional Instructions: Activity: please do not lift anything over 20 lb until surgery. Take it easy Diet: as tolerated Please return to the ER if you develop: Fevers >101.5 Have recurrence of the Nausea, Vomiting or abdominal pain. If you see a bulge in the inguinal area that you can't push back in Activity:: No lifting, pulling or pushing >20 lb Equipment/Supplies:: No Equipment Needed Diet:: As Tolerated Discharge Orders Discharge Orders: Discharge Order (Routine); Ordered 01/15/19 Ordered By: Oneyda Harris Exam Const General: cooperative, comfortable and no acute distress Orientation: alert and oriented x3 HENMT Head: normocephalic and atraumatic Resp Effort & Inspection: normal respiratory effort Auscultation: clear to auscultation bilaterally Cardio Rate: regular rate Rhythm: regular rhythm GI Inspection: normal to inspection Palpation: soft, no hepatosplenomegaly, hernia (left inguinal hernia, reducible) and nontender Auscultation: normal bowel sounds DS: Data Vitals/I&O Vitals and I&O: Vital Signs Temperature 98.4 F 01/15/19 08:20 Temperature Source Tympanic 01/15/19 08:20 Pulse 77 01/15/19 10:15 Pulse Rhythm Regular 01/15/19 08:20 Respiratory Rate 18 01/15/19 08:20 Respiratory Effort 01/15/19 08:20 Respiratory Depth Normal 01/15/19 08:20 Respiratory Pattern Normal 01/15/19 08:20 Blood Pressure 115/72 01/15/19 08:20 Blood Pressure Position Sitting 01/14/19 08:40 Pulse Oximetry 100 01/15/19 10:15 Oxygen Delivery Method Room Air 01/15/19 10:15 Oxygen Flow Rate 0 01/15/19 10:15 Pain Level 0 01/15/19 12:57 Comment 01/14/19 16:22 Intake & Output 01/14/19 01/15/19 01/15/19 23:59 11:59 23:59 Intake Total 2700 / 2751 1427.917 / 2624.167 1196.25 / 2624.167 Output Total 400 / 400 Balance 2300 / 2351 1427.917 / 2624.167 1196.25 / 2624.167 Weight 154 lb 1.65 oz Intake: IV 1000 / 1051 947.917 / 1904.167 956.25 / 1904.167 Oral 1700 / 1700 480 / 720 240 / 720 Output: Urine 400 / 400 Other: Urine Color Yellow Urine Appearance Clear Comment voiding not witnessed as pt has BRP Stool Size Large Large Stool Characteristics Liquid Soft Brown Liquid Voiding Methods Toilet Toilet Labs on day of discharge: Labs from last 24 hours 01/15/19 01/15/19 01/14/19 06:50 06:50 15:30 WBC 5.64 D RBC 4.01 Hgb 11.9 L D Hct 35.3 L MCV 88.0 D MCH 29.7 MCHC 33.7 RDW 13.1 Plt Count 218 D MPV 8.6 Immature Gran % 0.7 Neutrophils % 73.1 Lymphocytes % 15.2 Monocytes % 8.3 Eosinophils % 2.3 Basophils % 0.4 Absolute Neutrophils 4.12 Absolute Lymphocytes 0.86 L Absolute Monocytes 0.47 Absolute Eosinophils 0.13 Absolute Basophils 0.02 Sodium 131 L Potassium 3.6 D Chloride 97 L Carbon Dioxide 26.8 Anion Gap 7.2 BUN 29 H D Creatinine 1.20 H D Estimated GFR/1.73 m2 45.83 Glucose 98 Calcium 8.3 L Urine Color Yellow Urine Clarity Clear Urine pH 5.5 Ur Specific Ava 1.015 Urine Protein Negative Urine Ketones 40 H Urine Blood Trace-intact H Urine Nitrite Negative Urine Bilirubin Small H Urine Urobilinogen 0.2 Ur Leukocyte Esterase Negative Urine RBC 3-5 H Urine WBC 3-5 Ur Epithelial Cells Rare Urine Crystals Negative Urine Bacteria Rare Urine Casts 0-2 hyaline Urine Mucus Negative Ur Culture Indicated? No Urine Glucose Negative PFSH Medical History Incarcerated inguinal hernia, unilateral (Acute) History of gastric ulcer (Resolved) History of alcoholism (Resolved) History of CHF (congestive heart failure) (Resolved) Hypertension (Chronic) COPD (chronic obstructive pulmonary disease) (Chronic) Surgical History EGD - MAC (07/04/16) Social History Smoking/Tobacco Use Status: Former Tobacco Use Alcohol Intake: former Substance use type: does not use Do you feel safe at home: Yes Do you feel safe in your relationship?: Yes
== END 2019-01-15 15:24 | disposition home or self-care (01) ==
LOC: ER 11:54 → MS 13:08
PROVIDERS: Admitting Provider Surgery; Emergency Provider Nurse Practitioner Family; PCP Family Medicine; Visit Provider Surgery
DX: K40.30 Unilateral inguinal hernia, with obstruction, without gangrene, not specified as recurrent (principal); K56.609 Unspecified intestinal obstruction, unspecified as to partial versus complete obstruction; E86.0 Dehydration; J44.9 Chronic obstructive pulmonary disease, unspecified
CPT/HCPCS: 36415; 80048; 80053; 83690; 96361; 96365; 99217; 99220; 99222; 99232; 99239; 99285; 74176; 81003; 81015; 83605; 83735; 85025; 94640; 99284; G0378; J2270; J7613; J7644

== ENCOUNTER 2019-01-21 05:44 | Day surgery (SDC) | payer OTHER, SELFPAY ==
[2019-01-21] VITALS (7 sets, daily range): BP systolic 115–135; BP diastolic 55–100; PULSE 69–84; RESP 15–20; TEMP 36.5–36.7; O2SAT 93–100
[2019-01-21] MEDS: Lactated Ringers 1,000 ML 100 ML IV ×2 (06:46→09:07)
[2019-01-21] MEDS: ceFAZolin 2 GM/50 ML BAG IVPB (07:40)
[2019-01-21] MEDS: Bupivacaine 0.25% Pres-Free 30 ML VIAL ×2 (07:50→08:10)
[2019-01-21] MEDS: Bupivacaine LIPOSOME/PF 133 MG/10 ML VIAL IJ (07:50)
--- NOTE | 2019-01-21 09:06 | W.PM.DSUDISC ---
Discharge Plan Disposition Patient Disposition: HOME Condition: Good Discharge Details Attending Provider: Odette Cormier Primary Care Provider: Hardy Eagle Home Meds and New Rx's Prescriptions: New ibuprofen [IBU] 800 mg Tablet 800 mg PO Q8-10H PRN (Reason: Pain) Qty: 30 RF: 0 Continued Therapeutic-M 1 TAB tablet 1 tab PO BID Qty: 200 RF: 0 metoprolol tartrate 100 MG tablet 100 mg PO BID Qty: 60 RF: 1 albuterol sulfate 2.5 mg /3 mL (0.083 %) Solution For Nebulization 2.5 mg Inhalation BID RF: 0 lisinopril 20 mg Tablet 20 mg PO HS RF: 0 albuterol sulfate [ProAir HFA] 90 mcg/actuation Hfa Aerosol Inhaler 1 - 2 puff Inhalation PRN PRNRF: 0 fluoxetine 20 mg Capsule 20 mg PO DAILY RF: 0 spironolactone 50 mg Tablet 50 mg PO DAILY RF: 0 Breo Ellipta 100-25 mcg/dose Blister With Device 1 inh INHALATION DAILY RF: 0 acetaminophen 325 mg Tablet 650 mg PO PRN PRNRF: 0 Discharge Instructions Instructions: Inguinal Hernia Repair (DC) Additional Instructions: Okay to shower tomorrow. Remove top dressing, water may run over steri strips Take a stool softener or milk of magnesia as needed for constipation Do not lift more than 15# for one month postop Referrals: Odette Cormier MD [ [facility] STAFF PHYSICIAN] - (Return to the office in 10-14 days) Activity:: No lifting over 15# Remove Dressings/Wound Care:: 24 hours Shower/Bathe:: 24 hours Diet:: As Tolerated DS: Diagnosis Discharge Diagnosis (1) Left inguinal hernia: Start date: 01/21/19 Start time: 09:08 Status: Acute
--- NOTE | 2019-01-21 09:09 | PDOC.DSDIS_ITS ---
Discharge Plan Disposition Patient Disposition: HOME Condition: Good Discharge Details Attending Provider: Odette Cormier Primary Care Provider: Hardy Eagle Home Meds and New Rx's Prescriptions: New ibuprofen [IBU] 800 mg Tablet 800 mg PO Q8-10H PRN (Reason: Pain) Qty: 30 RF: 0 Continued Therapeutic-M 1 TAB tablet 1 tab PO BID Qty: 200 RF: 0 metoprolol tartrate 100 MG tablet 100 mg PO BID Qty: 60 RF: 1 albuterol sulfate 2.5 mg /3 mL (0.083 %) Solution For Nebulization 2.5 mg Inhalation BID RF: 0 lisinopril 20 mg Tablet 20 mg PO HS RF: 0 albuterol sulfate [ProAir HFA] 90 mcg/actuation Hfa Aerosol Inhaler 1 - 2 puff Inhalation PRN PRNRF: 0 fluoxetine 20 mg Capsule 20 mg PO DAILY RF: 0 spironolactone 50 mg Tablet 50 mg PO DAILY RF: 0 Breo Ellipta 100-25 mcg/dose Blister With Device 1 inh INHALATION DAILY RF: 0 acetaminophen 325 mg Tablet 650 mg PO PRN PRNRF: 0 Discharge Instructions Instructions: Inguinal Hernia Repair (DC) Additional Instructions: Okay to shower tomorrow. Remove top dressing, water may run over steri strips Take a stool softener or milk of magnesia as needed for constipation Do not lift more than 15# for one month postop Referrals: Odette Cormier MD [ [facility] STAFF PHYSICIAN] - (Return to the office in 10-14 days) Activity:: No lifting over 15# Remove Dressings/Wound Care:: 24 hours Shower/Bathe:: 24 hours Diet:: As Tolerated DS: Diagnosis Discharge Diagnosis (1) Left inguinal hernia: Start date: 01/21/19 Start time: 09:08 Status: Acute
--- NOTE | 2019-01-21 14:55 | ROE_ITS ---
DATE OF PROCEDURE: January 21, 2019 PREOPERATIVE DIAGNOSIS: Left inguinal hernia. POSTOPERATIVE DIAGNOSIS: Left indirect inguinal hernia. PROCEDURE: Left inguinal hernia repair with mesh. SURGEON: Odette Cormier M.D. ANESTHESIA: Local, general and TAP block. INDICATIONS: This is a 58-year-old woman who presented last week with nausea and vomiting related to an incarcerated left inguinal hernia. The hernia was easily reduced and her symptoms resolved. She presents for repair of the hernia. PROCEDURE: She was placed supine on the operating table and after induction of general anesthetic lobo d a left-sided TAP block placed. Her left groin was then prepped and draped sterilely. The ASIS and pubic tubercle were identified and a transverse incision made between these two points after injecti ng local anesthetic. Subcutaneous tissue was divided with cautery down to the external oblique fasci a. There was a bridging vein that was clamped, divided and ligated with #3-0 Vicryl ties. Local ane sthetic was infiltrated underneath the external oblique fascia. A small incision was then made in th e fascia and extended bluntly through the external inguinal ring. The round ligament was encircled a t the level of the pubic tubercle with a Kim drain. There was a moderate-sized, chronic hernia s ac that was dissected free of the round ligament. This did have bowel within it and was carefully ma nipulated. This was reduced through the internal ring. A large mesh plug had a few of the internal petals trimmed out and then fit nicely into the internal ring. This was sutured in position with int errupted #2-0 Prolene sutures. A flat sheet of mesh was then sewn to the floor of the inguinal canal in standard Dave fashion. There was good hemostasis. The mesh was noted to not be too tigh t around the round ligament. Of note, I had identified the iliohypogastric nerve and carefully avoid ed this. The fascia was then closed with a running #3-0 Vicryl stitch, as was Otoniel's fascia, and t hen the skin closed with a running #4-0 Monocryl subcuticular stitch. She tolerated the procedure we ll and was stable to recovery.
== END 2019-01-21 11:00 | disposition home or self-care (01) ==
PROVIDERS: PCP Family Medicine; Visit Provider Surgery
PROC: (CPT 49505; principal; 2019-01-21 07:30)
DX: K40.90 Unilateral inguinal hernia, without obstruction or gangrene, not specified as recurrent (principal); J44.9 Chronic obstructive pulmonary disease, unspecified; I10 Essential (primary) hypertension
CPT/HCPCS: 49505; 76942; C1781; J0690; J1100; J1885; J2250; J2405; J3010

== ENCOUNTER → 2019-01-24 16:40 | Outpatient (REF) | payer OTHER, SELFPAY ==
[2019-01-24 19:40] LABS: HCT 36.8 % (36.0-46.0); HGB 12.2 g/dL (12.0-15.5); Mean Corp. HGB Concentration 33.2 g/dL (32.0-36.0); Mean Corpuscular Hemoglobin 30.3 pg (27.0-33.0); Mean Corpuscular Volume 91.3 fL (80-95); Mean Platelet Volume 8.7 fL (8.0-11.0); Platelet Count 359 x1000/uL (130-400); RBC 4.03 m/cumm (4.00-5.20); RBC Distribution Width 13.5 % (11.7-14.6); White Blood Cell Count 7.38 k/cumm (4.4-10.8)
[2019-01-24 19:58] LABS: Anion Gap 6.2 mmol/L (3-11); BUN 13 mg/dL (7-18); CO2 30.8 mmol/L (21.0-32.0); CREATININE 0.85 mg/dL (0.55-1.02); Calcium 9.4 mg/dL (8.5-10.1); Chloride 98 mmol/L (98-107); Glucose 99 mg/dL (70-100); NT-proBNP 3582 pg/mL; Potassium 4.1 mmol/L (3.5-5.1); Sodium 135 mmol/L (136-145)
== END ==
LOC: NCHCN 16:40
PROVIDERS: PCP Registered Nurse; Visit Provider Family Medicine
DX: E87.1 Hypo-osmolality and hyponatremia (principal); R06.02 Shortness of breath
CPT/HCPCS: 80048; 85027; 83880

== ENCOUNTER → 2019-01-27 15:14 | Outpatient (BNVA) | payer OTHER, SELFPAY | PROVIDERS: PCP Family Medicine; Referring Provider Family Medicine; Visit Provider Surgery | DX: Z98.890 Other specified postprocedural states; Z87.19 Personal history of other diseases of the digestive system; Z48.815 Encounter for surgical aftercare following surgery on the digestive system ==

== ENCOUNTER 2019-02-18 10:45 | Outpatient (REF) | payer OTHER, SELFPAY ==
[2019-02-18 20:38] LABS: Anion Gap 8.8 mmol/L (3-11); BUN 15 mg/dL (7-18); CO2 29.2 mmol/L (21.0-32.0); CREATININE 1.01 mg/dL (0.55-1.02); Calcium 9.6 mg/dL (8.5-10.1); Chloride 96 mmol/L (98-107); Estimated GFR 55.91 (mL/min/1.73m2); Glucose 106 mg/dL (70-100); Potassium 4.8 mmol/L (3.5-5.1); Sodium 134 mmol/L (136-145)
== END 2019-02-18 11:05 ==
LOC: NCHCN 10:45
PROVIDERS: PCP Family Medicine; Visit Provider Family Medicine
DX: R06.2 Wheezing (principal); E87.1 Hypo-osmolality and hyponatremia
CPT/HCPCS: 80048

== ENCOUNTER 2019-03-10 01:12 | Outpatient (CLI) | payer OTHER, SELFPAY ==
--- NOTE | 2019-03-10 13:11 | DI.MAMMO_ITS ---
SYMPTOM/DIAGNOSIS: SCREENING, PREVENTIVE HEALTH , Z00.00 MAMMOGRAMS: Mammograms were interpreted according to the usual protocol including computer analysis with CAD system, tomosynthesis and C view imaging. Comparison is made with 2018. The breasts are composed of scattered fibroglandular densities, breast density, Category B. No suspicious masses or suspicious microcalcifications are seen. There has been no significant change. IMPRESSION: Category 1, negative mammogram. Yearly screening mammography is recommended. [facility] ASSESSMENT OF FINDINGS: Negative. Category 1. Patient will receive a letter notifying them of these results. BI-RADS category B. There are scattered areas of fibroglandular density.
== END 2019-03-10 01:32 ==
PROVIDERS: PCP Family Medicine; Visit Provider Family Medicine
DX: Z12.31 Encounter for screening mammogram for malignant neoplasm of breast (principal)
CPT/HCPCS: 77063; 77067

== ENCOUNTER 2019-03-14 00:22 | Outpatient (CLI) | payer OTHER, SELFPAY ==
--- NOTE | 2019-03-14 10:20 | MERGE_ITS ---
*[facility]* *[facility]* [address] [place] [address] Date of study: 03/14/2019 Transthoracic Echocardiography M-mode, complete 2D, complete spectral Doppler, and color Doppler *STUDY CONCLUSIONS* Summary: 1. Left ventricle: The cavity size was normal. Wall thickness was increased in a pattern of mild LVH. Systolic function was normal. The estimated ejection fraction was 55-60%. Wall motion was normal; there were no regional wall motion abnormalities. 2. Right ventricle: The cavity size was normal. Systolic function was normal. 3. Mitral valve: There was mild regurgitation. 4. Pulmonary arteries: Pulmonary systolic pressure was increased, in the range of 40mm Hg to 45mm Hg. 5. Inferior vena cava: The vessel was patent and normal in size. The respirophasic diameter changes were in the normal range (greater than or equal to 50%), consistent with normal central venous pressure. *PATIENT PRESENTATION* Height: 152.4cm (60in ) S/D Pressure: Weight: 72.6kg (159.7lb ) BSA: 1.78m^2 Test start time: 10:30 AM. Test stop time: 11:30 AM. PERFORMING Unknown PERFORMING [facility] TRUCK UNLOADER Elise Villagomez RT (R)(CT), CS CONSULTING Hardy Eagle ORDERING Hardy Eagle REFERRING Hardy Eagle *PROCEDURE DATA* Procedure information: The patient was identified by two identifiers. This study was interpreted by [facility]. Pertinent images and digital data are archived for permanent storage and are available for subsequent review. Comparison was made to the study of 02/24/2017. Study status: Routine. Transthoracic echocardiography. M-mode, complete 2D, complete spectral Doppler, and color Doppler. A Transthoracic Echocardiogram was performed. Scanning was performed from the parasternal, apical, subcostal, and suprasternal notch acoustic windows. Images were obtained using an [id number] cardiac ultrasound machine. Image quality was adequate. Study completion: The patient tolerated the procedure well. There were no complications. History: PMH: SOB CM CHF 58 y/o F with h/o cardiomyopathy that improved in last echo 2016. With new SOB elevated BNap, responds to diuresis i42.9, o06.02, i50.9 *CARDIAC ANATOMY* Left ventricle: The cavity size was normal. Wall thickness was increased in a pattern of mild LVH. Systolic function was normal. The estimated ejection fraction was 55-60%. Wall motion was normal; there were no regional wall motion abnormalities. Findings consistent with diastolic dysfunction. There was no evidence of elevated ventricular filling pressure by Doppler parameters. Aortic valve: Trileaflet; mildly thickened leaflets. Mobility was not restricted. Doppler: Transvalvular velocity was within the normal range. There was no stenosis. There was no significant regurgitation. VTI ratio of LVOT to aortic valve: 0.92. Valve area (VTI): 3.1cm^2. Indexed valve area (VTI): 1.8cm^2/m^2. Peak velocity ratio of LVOT to aortic valve: 0.93. Valve area (Vmax): 3.2cm^2. Indexed valve area (Vmax): 1.8cm^2/m^2. Mean velocity ratio of LVOT to aortic valve: 0.79. Valve area (Vmean): 2.7cm^2. Indexed valve area (Vmean): 1.5cm^2/m^2. Mean gradient (S): 3mm Hg. Peak gradient (S): 5.5mm Hg. Aorta: Aortic root: The aortic root was normal in size. Ascending aorta: The ascending aorta was normal in size. Mitral valve: Mildly thickened leaflets. Mobility was not restricted. Doppler: Transvalvular velocity was within the normal range. There was no evidence for stenosis. There was mild regurgitation. Valve area by pressure half-time: 3.7cm^2. Indexed valve area by pressure half-time: 2.1cm^2/m^2. Peak gradient (D): 2.2mm Hg. Left atrium: The atrium was at the upper limits of normal in size. Right ventricle: The cavity size was normal. Systolic function was normal. Pulmonic valve: The pulmonary valve appears to be grossly normal. Doppler: Transvalvular velocity was within the normal range. There was no evidence for stenosis. There was trivial regurgitation. Tricuspid valve: Structurally normal valve. Doppler: Transvalvular velocity was within the normal range. There was no evidence for stenosis. There was trivial regurgitation. Pulmonary artery: Poorly visualized. Pulmonary systolic pressure was increased, in the range of 40mm Hg to 45mm Hg. Right atrium: The atrium was normal in size. Pericardium: There was no pericardial effusion. Systemic veins: Inferior vena cava: Well visualized. The vessel was patent and normal in size. The respirophasic diameter changes were in the normal range (greater than or equal to 50%), consistent with normal central venous pressure. Baseline ECG: Bradycardia. Measurements Left ventricle Value 03/27/2017 Reference LV ID, ED, PLAX 4.5 cm 4.4 3.5 - 6.0 LV ID, ES, PLAX 3.3 cm 3.1 2.1 - 4.0 LV PW thickness, ED, PLAX 1.2 cm 1.2 LV end-diastolic volume, 55 ml 50 1-p A2C LV ejection fraction, 1-p 63 % 55 A2C LV end-diastolic volume, 58 ml 42 1-p A4C LV ejection fraction, 1-p 67 % 45 A4C LV e', lateral 0.108 m/sec LV E/e', lateral 7 LV e', medial 0.072 m/sec LV E/e', medial 10 LV e', average 0.09 m/sec LV E/e', average 8 Ventricular septum Value 03/27/2017 Reference IVS thickness, ED, PLAX 1.3 cm 1.4 LVOT Value 03/27/2017 Reference LVOT ID, A-P 2.1 cm 2.0 LVOT area 3.4 cm^2 3.1 LVOT peak velocity, S 1.09 m/sec 1.01 LVOT mean velocity, S 0.65 m/sec LVOT VTI, S 23.9 cm 22.2 LVOT peak gradient, S 4.8 mm Hg LVOT mean gradient, S 2 mm Hg 1.8 Stroke volume (SV), LVOT 82 ml DP Stroke index (SV/bsa), 46 ml/m^2 LVOT DP Aortic valve Value 03/27/2017 Reference Aortic valve peak 1.2 m/sec velocity, S Aortic valve mean 0.8 m/sec velocity, S Aortic valve VTI, S 26.0 cm Aortic mean gradient, S 3 mm Hg Aortic peak gradient, S 5.5 mm Hg VTI ratio, LVOT/AV 0.92 Aortic valve area, VTI 3.1 cm^2 2.5 Velocity ratio, peak, 0.93 LVOT/AV Aortic valve area, peak 3.2 cm^2 2.4 velocity Velocity ratio, mean, 0.79 LVOT/AV Aortic valve area, mean 2.7 cm^2 velocity Aortic valve area/bsa, 1.5 cm^2/m^2 mean velocity Aorta Value 03/27/2017 Reference Aortic root ID, ED 2.8 cm 3.4 Ascending aorta ID, A-P, S 3.4 cm 3.4 Left atrium Value 03/27/2017 Reference LA ID, A-P, ES 3.6 cm LA ID/bsa, A-P 2.0 cm/m^2 <=2.2 LA volume, ES, 2-p 52 ml LA volume/bsa, ES, 2-p 29 ml/m^2 LA/aortic root ratio 1.32 0.99 Mitral valve Value 03/27/2017 Reference Mitral E-wave peak 0.74 m/sec 0.59 velocity Mitral A-wave peak 0.47 m/sec 0.47 velocity Mitral deceleration time 207 ms 150 - 230 Mitral pressure half-time 60 ms 73 Mitral peak gradient, D 2.2 mm Hg Mitral E/A ratio, peak 1.58 1.26 Mitral valve area, PHT, DP 3.7 cm^2 3 Tricuspid valve Value 03/27/2017 Reference Tricuspid regurg peak 3 m/sec 3.5 velocity Tricuspid peak RV-RA 36.6 mm Hg 49.1 gradient Right atrium Value 03/27/2017 Reference RA area, ES, A4C 18.4 cm^2 16 8.3 - 19.5 Pulmonic valve Value 03/27/2017 Reference Pulmonic regurg velocity, 1.24 m/sec ED Pulmonic regurg gradient, 6 mm Hg ED Legend: (L) and (H) griffin values outside specified reference range. I have personally reviewed the images and have reviewed and edited the reported findings. Electronically signed by Francesca Schmidt 03/14/2019 12:57
== END 2019-03-14 00:42 ==
PROVIDERS: PCP Family Medicine; Visit Provider Family Medicine
DX: R06.02 Shortness of breath (principal); R79.89 Other specified abnormal findings of blood chemistry; I34.0 Nonrheumatic mitral (valve) insufficiency
CPT/HCPCS: 93306

== ENCOUNTER 2019-09-03 03:42 | Outpatient (CLI) | payer OTHER, SELFPAY ==
--- NOTE | 2019-09-03 | PFT_ITS ---
PULMONARY FUNCTION TEST REPORT Patient - Deepthi Hernandez DATE OF SERVICE September 03 REQUESTING PROVIDER Hardy Eagle M.D. INTERPRETATION OF STUDY Spirometry shows severe obstructive airways disease with significant bronchodilator response. LUNG VOLUMES - Lung volumes show no evidence of restriction. There is low FVC, which is mostly due to very low ERV. DIFFUSION CAPACITY- Moderately reduced, which is mildly reduced when corrected to alveolar volume. AIRWAY RESISTANCE - Elevated. IMPRESSION Severe obstructive airways disease with significant bronchodilator response. This is associated with moderate hyperinflation and air trapping and moderate diffusion defect. When this study was compared to previous one from 04/19/17, the patient has a total of a 150 cc decline in FVC. FEV1 has remained stable. Clinical correlation recommended. Christy Renee M.D. VIVEK/ T- 04/04/20
[2019-09-03] MEDS: Inhaler, Assist Device 1 EACH MC (14:25)
[2019-09-03] MEDS: Albuterol HFA 18 GM 200 PUFF INH IH (14:26)
== END 2019-09-03 04:02 ==
PROVIDERS: PCP Family Medicine; Visit Provider Family Medicine
DX: R05 Cough (principal); J44.9 Chronic obstructive pulmonary disease, unspecified; Z87.891 Personal history of nicotine dependence
CPT/HCPCS: 94060; 94726; 94729

== ENCOUNTER 2019-09-24 02:55 | Outpatient (CLI) | payer OTHER, SELFPAY ==
--- NOTE | 2019-09-24 | DI.RAD_ITS ---
EXAM: XR CERVICAL SPINE COMP 4-5V CLINICAL HISTORY: RT NECK PAIN, M54.2. TECHNIQUE: 2D digital imaging was performed. COMPARISON: No exams were available for comparison FINDINGS: There are severe degenerative disc changes, greatest at C5-6 and C6-7. Facet degenerative changes ar e also present. There is neural foraminal narrowing bilaterally, worse at the lower levels. ALIGNMENT: Cervical spinal alignment is within normal limits. The odontoid and atlantoaxial articulat ions are normal. SOFT TISSUE: Normal. The lung apices are clear. IMPRESSION: Severe degenerative disc changes and facet degenerative changes, greatest at C5-6 and C6-7 causing ne ural foraminal narrowing bilaterally. DATA REPOSITORY: RADIATION DOSE DELIVERED:
== END 2019-09-24 03:15 ==
PROVIDERS: PCP Family Medicine; Visit Provider Family Medicine
DX: M54.2 Cervicalgia (principal); M50.322 Other cervical disc degeneration at C5-C6 level; M50.323 Other cervical disc degeneration at C6-C7 level; M47.812 Spondylosis without myelopathy or radiculopathy, cervical region
CPT/HCPCS: 72050

== ENCOUNTER → 2020-01-01 02:58 | Outpatient (CLI) | payer OTHER, SELFPAY ==
--- NOTE | 2020-01-01 | DI.US_ITS ---
EXAM: US PAIN CLINIC NEEDLE GUIDANCE CLINICAL HISTORY: NECK PAIN RT SIDE AND TRAPEZIUS REGION. TECHNIQUE: Ultrasound was performed using standard protocol. COMPARISON: No exams were available for comparison FINDINGS: Ultrasound was provided for Dr. Gray for guidance with pain clinic injection. Please see procedure n ote for details. DATA REPOSITORY:
[2020-01-01 14:46] VITALS: BP 115/72; PULSE 64; RESP 17; TEMP 36.8; O2SAT 96
[2020-01-01] MEDS: Lidocaine 2% Pres-Free 5 ML VIAL IJ (15:28)
--- NOTE | 2020-01-01 15:31 | PDOC.PAIN_ITS ---
Pain Clinic Procedure Note Procedure Note Procedure Note: ULTRASOUND GUIDED RIGHT Trapezius muscle trigger point INJECTIONS Pre-Procedural Evaluation: MYRIAM MATSON has been referred to the [facility] for an Ultrasound Guided right trapezius muscle trigger point injection for a chief com plaint of right trapezius muscle area pain. Pre-procedure Pain Score: 5/10 DX: Muscle pain Patient was interviewed and the medical record reviewed. There were no medical, pharmacologic, radiographic, or other structural contraindications to preforming an ultrasound guided injection. Risks and expected side effects as well as potential benefits of the procedure were reviewed. The patient consent form was signed and witnessed. Standard time-out procedure was performed. The use of direct ultrasound visualization of the needle (rather than a non-guid ed injection) was required to increase patient safety by excluding inadvertent intramuscular, intratendinous, or intraneural needle placement and minimizing bleeding by avoiding osteochondral or vascular injury from the needle. Additionally, the increased accuracy of placement may increase clinical effectiveness and will allow higher diagnostic specificity when evaluating effectiveness of this injection. Procedure Description: The patient was placed in the PRONE position and automated blood pressure cuff and pulse oximeter applied for monitoring during the procedure and recorded in the medical record. Pre-injection ultrasound scanning of the area of interest was performed using a linear transducer, identifying relevant anatomy, landmarks, and neurovascular structures allowing for optimal needle path. The site was then prepared in the usual sterile fashion, using thorough Chlorhexadine preparation of the skin and sterile draping. The same ultrasound transducer was then passed into the sterile field using sterile probe cover and sterile ultrasound gel. The injection target was again visualized. Skin and subcutaneous tissues were anesthetized with 1 mL of 1% Lidocaine. A 21G 80 mm PAJUNK US needle was placed under live ultrasound guidance, using an in- plane approach, to the target area. After visualization of the needle tip at the target area, a mixture of 3 mL 2% Lidocaine was delivered after negative aspiration for blood. Ultrasound images were captured and stored for documentation purposes. Post-procedure Pain Score:1/10 Vital signs were stable throughout the procedure and were as recorded in the docflowsheet by the nursing staff. Follow up plans and appointments were discussed with the patient.Post procedure instruction was given as documented in nursing documentation and having met discharge criteria, they were discharged from the [facility]. COMMENTS: Stretching of the area as taught
[2020-01-01 15:33] VITALS: PULSE 64; O2SAT 94
== END ==
PROVIDERS: PCP Family Medicine; Visit Provider Preventive Medicine Occupational Medicine
DX: M79.18 Myalgia, other site (principal)
CPT/HCPCS: 20552; 76942

== ENCOUNTER 2020-03-02 13:50 | Outpatient (REF) | payer OTHER, SELFPAY ==
[2020-03-02 20:25] LABS: Anion Gap 9.2 mmol/L (3-11); BUN 19 mg/dL (7-18); CO2 29.8 mmol/L (21.0-32.0); CREATININE 0.88 mg/dL (0.55-1.02); Calcium 9.4 mg/dL (8.5-10.1); Chloride 94 mmol/L (98-107); Glucose 110 mg/dL (74-106); Potassium 4.5 mmol/L (3.5-5.1); Sodium 133 mmol/L (136-145)
== END 2020-03-02 14:10 ==
LOC: NCHCN 13:50
PROVIDERS: PCP Family Medicine; Visit Provider Family Medicine
DX: E87.1 Hypo-osmolality and hyponatremia (principal); I50.9 Heart failure, unspecified
CPT/HCPCS: 80048

== ENCOUNTER 2020-03-04 12:19 | Outpatient (CLI) | payer OTHER, SELFPAY ==
--- NOTE | 2020-03-04 | DI.US_ITS ---
EXAM: US PAIN CLINIC NEEDLE GUIDANCE CLINICAL HISTORY: CERVICAL MYOFASCIAL PAIN SYNDROME,RT TRAPEZIUS. TECHNIQUE: Ultrasound was provided for the referring physician for guidance with performing injectio n procedure. COMPARISON: No exams were available for comparison FINDINGS: Please see procedure note for details. RADIATION DOSE DELIVERED:
[2020-03-04 12:30] VITALS: BP 123/78; PULSE 61; RESP 17; TEMP 36.6; O2SAT 95
[2020-03-04 13:16] VITALS: PULSE 64; O2SAT 95
--- NOTE | 2020-03-04 13:24 | PDOC.PAIN_ITS ---
Pain Clinic Procedure Note Procedure Note Procedure Note: ULTRASOUND GUIDED RIGHT TRAPEZIUS MUSCLE TRIGGER POINT INJECTIONS Pre-Procedural Evaluation: MYRIAM MATSON has been referred to the [facility] for an Ultrasound Guided right trapezius muscle trigger point injection for a chief com plaint of right upper shoulder pain. Pre-procedure Pain Score: 6/10 DX: Muscle pain Patient was interviewed and the medical record reviewed. There were no medical, pharmacologic, radiographic, or other structural contraindications to preforming an ultrasound guided injection. Risks and expected side effects as well as potential benefits of the procedure were reviewed. The patient consent form was signed and witnessed. Standard time-out procedure was performed. The use of direct ultrasound visualization of the needle (rather than a non- guided injection) was required to increase patient safety by excluding inadvertent intramuscular, intratendinous, or intraneural needle placement and minimizing bleeding by avoiding osteochondral or vascular injury from the needle. Additionally, the increased accuracy of placement may increase clinical effectiveness and will allow higher diagnostic specificity when evaluating effectiveness of this injection. Procedure Description: The patient was placed in the Prone position and automated blood pressure cuff and pulse oximeter applied for monitoring during the procedure and recorded in the medical record. Pre-injection ultrasound scanning of the area of interest was performed using linear transducer, identifying relevant anatomy, landmarks, and neurovascular structures allowing for optimal needle path. The site was then prepared in the usual sterile fashion, using thorough Chlorhexadine preparation of the skin and sterile draping. The same ultrasound transducer was then passed into the sterile field using sterile probe cover and sterile ultrasound gel. The injection target was again visualized. Skin and subcutaneous tissues were anesthetized with 1 mL of 1% Lidocaine. A 20 guage Pajunk Ultrasound needle was placed under live ultrasound guidance, using an in-plane, to the target area. After visualization of the needle tip at the target area, 3 mL of 1% Lidocaine was delivered after negative aspiration for blood. Ultrasound images were captured and stored for documentation purposes. Post-procedure Pain Score:2/10 Vital signs were stable throughout the procedure and were as recorded in the docflowsheet by the nursing staff. Follow up plans and appointments were discussed with the patient.Post procedure instruction was given as documented in nursing documentation and having met discharge criteria, they were discharged from the [facility]. COMMENTS: As no steroids were injected at this injection, it can be repeated at any time if it is helping her to improve her function.
== END 2020-03-04 12:39 ==
LOC: PC 13:01 → DI 13:06
PROVIDERS: PCP Family Medicine; Visit Provider Preventive Medicine Occupational Medicine
DX: M79.18 Myalgia, other site (principal)
CPT/HCPCS: 20552; 76942

== ENCOUNTER 2020-06-03 01:08 | Outpatient (CLI) | payer OTHER, SELFPAY ==
--- NOTE | 2020-06-03 | DI.US_ITS ---
EXAM: CERVICAL MYOFASCIAL PAIN SYNDROOME, COMPARISON: US US PAIN CLINIC NEEDLE GUIDANCE from 03/04/2020 TECHNIQUE: Ultrasound performed using standard protocol. FINDINGS: Sonography was provided for Dr. Gray during the performance of a trigger point injection. Please re agueda to the procedure report for complete details. DATA REPOSITORY:
[2020-06-03 13:10] VITALS: BP 123/75; PULSE 77; RESP 16; TEMP 37.2; O2SAT 93
[2020-06-03] MEDS: Lidocaine 2% Pres-Free 5 ML VIAL IJ (13:38)
[2020-06-03] MEDS: methylPREDNISolone ACETATE 40 MG/ML VIAL IJ (13:41)
[2020-06-03 13:42] VITALS: PULSE 70; O2SAT 93
--- NOTE | 2020-06-03 14:31 | PDOC.PAIN_ITS ---
Pain Clinic Procedure Note Procedure Note Procedure Note: ULTRASOUND GUIDED RIGHT TRAPEZIUS TRIGGER POINT INJECTIONS Pre-Procedural Evaluation: MYRIAM MATSON has been referred to the [facility] for an Ultrasound Guided [right/left/bilateral] [] injection for a chief complaint of []. Pre-procedure Pain Score: 6/10 DX: Muscle pain Patient was interviewed and the medical record reviewed. There were no medical, pharmacologic, radiographic, or other structural contraindications to preforming an ultrasound guided injection. Risks and expected side effects as well as potential benefits of the procedure were reviewed. The patient consent form was signed and witnessed. Standard time-out procedure was performed. The use of direct ultrasound visualization of the needle (rather than a non- guided injection) was required to increase patient safety by excluding inadvertent intramuscular, intratendinous, or intraneural needle placement and minimizing bleeding by avoiding osteochondral or vascular injury from the needle. Additionally, the increased accuracy of placement may increase clinical effectiveness and will allow higher diagnostic specificity when evaluating effectiveness of this injection. Procedure Description: The patient was placed in the prone position and automated blood pressure cuff and pulse oximeter applied for monitoring during the procedure and recorded in the medical record. Pre-injection ultrasound scanning of the area of interest was performed using linear transducer, identifying relevant anatomy, landmarks, and neurovascular structures allowing for optimal needle path. The site was then prepared in the usual sterile fashion, using thorough Chlorhexadine preparation of the skin and sterile draping. The same ultrasound transducer was then passed into the sterile field using sterile probe cover and sterile ultrasound gel. The injection target was again visualized. Skin and subcutaneous tissues were anesthetized with 1 mL of 1% Lidocaine. A 3.5 inch Pajunk Ultrasound needle was placed under live ultrasound guidance, using an in-plane approach, to the target area. After visualization of the needle tip at the target area, a mixture of 5 mL 2% Lidocaine and 1 cc Depomedrol (40 mg/cc), totaling 6 mL of injectate was delivered after negative aspiration for blood. The needle was flushed with 1/2 cc of 1% Lidocaine prior to removal. Ultrasound images were captured and stored for documentation purposes. Post-procedure Pain Score:0/10 Vital signs were stable throughout the procedure and were as recorded in the docflowsheet by the nursing staff. Follow up plans and appointments were discussed with the patient.Post procedure instruction was given as documented in nursing documentation and having met discharge criteria, they were discharged from the [facility]. COMMENTS: I did strongly encourage stretching exercises for the are we injected today
== END 2020-06-03 01:28 ==
PROVIDERS: PCP Family Medicine; Visit Provider Preventive Medicine Occupational Medicine
DX: M79.18 Myalgia, other site (principal)
CPT/HCPCS: 20552; 76942; J1030

== ENCOUNTER → 2020-09-15 01:00 | Outpatient (CLI) | payer OTHER, SELFPAY ==
--- NOTE | 2020-09-15 | DI.US_ITS ---
EXAM: CERVICAL MYOFASCIAL PAIN SYNDROME, ULTRASOUND GUIDED INJECTION COMPARISON: US US PAIN CLINIC NEEDLE GUIDANCE from 06/03/2020 TECHNIQUE: Ultrasound performed using standard protocol. FINDINGS: Sonography was provided for Dr. Gray during the performance of a ultrasound-guided myofascial inject ion. Please refer to the procedure report for complete details. DATA REPOSITORY:
[2020-09-15 08:09] VITALS: BP 142/84; PULSE 70; RESP 18; TEMP 36.9; O2SAT 93
--- NOTE | 2020-09-15 08:51 | PDOC.PAIN_ITS ---
Pain Clinic Procedure Note Procedure Note Procedure Note: Date of service: September 15, 2020 ULTRASOUND GUIDED RIGHT TRAPEZIUS MUSCLE TRIGGER POINT INJECTIONS Pre-Procedural Evaluation: MYRIAM MATSON has been referred to the [facility] for an Ultrasound Guided right Trapezius muscle trigger point injection for a chief complaint of []. Pre-procedure Pain Score: 6/10 Dx: Muscle pain Patient was interviewed and the medical record reviewed. There were no medical, pharmacologic, radiographic, or other structural contraindications to preforming an ultrasound guided injection. Risks and expected side effects as well as potential benefits of the procedure were reviewed. The patient consent form was signed and witnessed. Standard time-out procedure was performed. The use of direct ultrasound visualization of the needle (rather than a non-gu ided injection) was required to increase patient safety by excluding inadvertent intramuscular, intratendinous, or intraneural needle placement and minimizing bleeding by avoiding osteochondral or vascular injury from the needle. Additionally, the increased accuracy of placement may increase clinical effectiveness and will allow higher diagnostic specificity when evaluating effectiveness of this injection. Procedure Description: The patient was placed in the prone position and automated blood pressure cuff and pulse oximeter applied for monitoring during the procedure and recorded in the medical record. Pre-injection ultrasound scanning of the area of interest was performed using linear transducer, identifying relevant anatomy, landmarks, and neurovascular structures allowing for optimal needle path. The site was then prepared in the usual sterile fashion, using thorough Chlorhexadine preparation of the skin and sterile draping. The same ultrasound transducer was then passed into the sterile field using sterile probe cover and sterile ultrasound gel. The injection target was again visualized. Skin and subcutaneous tissues were anesthetized with 1 mL of 1% Lidocaine. A Pajunk 3.5 inch Ultrasound needle was placed under live ultrasound guidance, using an in-plane approach, to the target area. After visualization of the needle tip at the target area, a mixture of 5 cc of 2% Lidocaine and 1 cc of Depomedrol (40 mg/cc), totaling 6 mL of injectate was delivered after negative aspiration for blood. Ultrasound images were captured and stored for documentation purposes. The needle was flushed with 1 cc of 1% Lidocaine and removed. Post-procedure Pain Score:1/10 Vital signs were stable throughout the procedure and were as recorded in the docflowsheet by the nursing staff. Follow up plans and appointments were discussed with the patient.Post procedure instruction was given as documented in nursing documentation and having met discharge criteria, they were discharged from the [facility]. COMMENTS: She did well throughout the procedure. Audie Gray DO, MPH Pain Management
[2020-09-15 08:54] VITALS: PULSE 70; O2SAT 93
[2020-09-15] MEDS: methylPREDNISolone ACETATE 40 MG/ML VIAL IJ (08:55)
[2020-09-15] MEDS: Lidocaine 2% Pres-Free 5 ML VIAL IJ (08:56)
== END ==
PROVIDERS: PCP Family Medicine; Visit Provider Preventive Medicine Occupational Medicine
DX: M79.18 Myalgia, other site (principal)
CPT/HCPCS: 20552; 76942; J1030

== ENCOUNTER 2020-12-01 13:40 | Outpatient (REF) | payer OTHER, SELFPAY ==
[2020-12-01 19:05] LABS: ALT 19 U/L (14-59); AST 20 U/L (15-37); Albumin 3.9 g/dL (3.4-5.0); Alkaline Phosphatase 115 U/L (46-116); Anion Gap 6.3 mmol/L (3-11); BUN 20 mg/dL (7-18); Bilirubin, Total 0.3 mg/dL (0.2-1.0); CO2 30.7 mmol/L (21.0-32.0); Calcium 9.2 mg/dL (8.5-10.1); Chloride 93 mmol/L (98-107); Estimated GFR 56.18 (mL/min/1.73m2); Glucose 110 mg/dL (74-106); NT-proBNP 459 pg/mL (<300); Potassium 5.1 mmol/L (3.5-5.1); Sodium 130 mmol/L (136-145)
== END 2020-12-01 13:41 | disposition home or self-care (01) ==
LOC: NCHCN 13:40
PROVIDERS: PCP Family Medicine; Visit Provider Family Medicine
DX: E87.1 Hypo-osmolality and hyponatremia (principal); R17 Unspecified jaundice; I50.9 Heart failure, unspecified
CPT/HCPCS: 80053; 83880

== ENCOUNTER 2020-12-21 10:51 | Outpatient (CLI) | payer OTHER, SELFPAY ==
[2020-12-21 11:04] VITALS: BP 96/69; PULSE 72; RESP 18; TEMP 36.7; O2SAT 98
[2020-12-21] MEDS: methylPREDNISolone ACETATE 40 MG/ML VIAL IJ (11:43)
[2020-12-21] MEDS: Lidocaine 2% Pres-Free 5 ML VIAL IJ (11:43)
[2020-12-21 11:44] VITALS: BP 122/78; PULSE 67; O2SAT 98
--- NOTE | 2020-12-21 11:50 | PDOC.PAIN_ITS ---
Pain Clinic Procedure Note Procedure Note Procedure Note: Date of service: December 21, 2020 RIGHT TRAPEZIUS MUSCLE TRIGGER POINT INJECTIONS Pre-Procedural Evaluation: MYRIAM MATSON has been referred to the [facility] for an Ultrasound Guided right Trapezius muscle trigger point injection for a chief complaint of right shoulder pain. Pre-procedure Pain Score: 6/10 Dx: myofascial pain Patient was interviewed and the medical record reviewed. There were no medical, pharmacologic, radiographic, or other structural contraindications to preforming an ultrasound guided injection. Risks and expected side effects as well as potential benefits of the procedure were reviewed. The patient consent form was signed and witnessed. Standard time-out procedure was performed. The use of direct ultrasound visualization of the needle (rather than a non- guided injection) was required to increase patient safety by excluding inadvertent intramuscular, intratendinous, or intraneural needle placement and minimizing bleeding by avoiding osteochondral or vascular injury from the needle. Additionally, the increased accuracy of placement may increase clinical effectiveness and will allow higher diagnostic specificity when evaluating effectiveness of this injection. Procedure Description: The patient was placed in the seated position and automated blood pressure cuff and pulse oximeter applied for monitoring during the procedure and recorded in the medical record. The site was then prepared in the usual sterile fashion, using thorough Chlorhexadine preparation of the skin and sterile draping. Skin and subcutaneous tissues were anesthetized with 1 mL of 1% Lidocaine. A mixture of 5 cc of 2% Lidocaine and 1 cc of Depomedrol (40 mg/cc), totaling 6 mL of injectate was delivered after negative aspiration for blood into the right trapezisu muscle. The needle was flushed with 1 cc of 1% Lidocaine and removed. Post-procedure Pain Score:0/10 Vital signs were stable throughout the procedure and were as recorded in the docflowsheet by the nursing staff. Follow up plans and appointments were discussed with the patient.Post procedure instruction was given as documented in nursing documentation and having met discharge criteria, they were discharged from the [facility]. COMMENTS: She did well throughout the procedure. Rodrick Vasquez MD Pain Management
== END 2020-12-21 10:52 | disposition home or self-care (01) ==
PROVIDERS: PCP Family Medicine; Visit Provider Internal Medicine
DX: M79.18 Myalgia, other site (principal); M25.511 Pain in right shoulder
CPT/HCPCS: 20552; J1030

== ENCOUNTER 2021-03-11 03:37 | Outpatient (CLI) | payer OTHER, SELFPAY ==
--- NOTE | 2021-03-11 | DI.MAMMO_ITS ---
Exam(s) MAMMO SCREENING EXAM: MAMMO SCREENING CLINICAL HISTORY: SCREENING, Z12.39 TECHNIQUE: Mammograms were interpreted according to the usual protocol including computer analysis w DGIT CAD system, tomosynthesis and C-view imaging. COMPARISON: FINDINGS: The breasts are of moderate density with fairly symmetrical distribution of fibroglandular tissue. N o dominant mass or clumped microcalcification is identified in either breast. The current examinatio n is compared with previous examinations including February 2019 and there has been no gross interval c hange in appearance in comparison with the prior studies. IMPRESSION: No specific evidence of malignancy at this time. Routine screening examinations are suggested at yea rly intervals due to the family history of breast carcinoma. BI-RADS Category 1 - Negative Breast Density - Category B - Scattered areas of fibroglandular density
== END 2021-03-11 03:57 ==
PROVIDERS: PCP Family Medicine; Visit Provider Family Medicine
DX: Z12.31 Encounter for screening mammogram for malignant neoplasm of breast (principal)
CPT/HCPCS: 77063; 77067

== ENCOUNTER 2021-05-18 06:33 | Emergency (ER) | payer MEDICARE, SELFPAY ==
[2021-05-18] VITALS (37 sets, daily range): BP systolic 99–155; BP diastolic 43–107; PULSE 61–94; RESP 16–30; TEMP 36.3; O2SAT 89–99
--- NOTE | 2021-05-18 06:30 | RT.EKG_ITS ---
APPROVED REPORT Exam: Resting ECG Reason for Exam: bleeding Patient Location: E HR:68 bpm ECG Measurements Heart Rate 68 AXIS CA 220 P 68 QRSd 88 QRS -17 QT 399 T 43 QTc 422 Conclusion Sinus rhythm...normal P axis, V-rate 60- 99 Atrial premature complex...SV complex w/ short R-R interval Prolonged CA interval...CA >220, V-rate 50- 90 Low voltage, precordial leads...precordial leads <1.0mV
--- NOTE | 2021-05-18 06:37 | ED.GENADUL_ITS ---
Discharge Plan Disposition Patient Disposition: HOME Condition: Stable Discharge Details Clinical Impression: Post-menopausal bleeding, Uterine mass Primary Care Provider: [facility] ED Provider: Sugey Ann Home Meds and New Rx's Prescriptions: Continued multivitamin Tablet 1 tab DAILY RF: 0 furosemide 40 mg tablet 40 mg PO DAILY RF: 0 amitriptyline 25 mg tablet 25 mg PO QHS RF: 0 metoprolol tartrate 100 MG tablet 100 mg PO BID Qty: 60 RF: 1 Stiolto Respimat 2.5-2.5 mcg/actuation Mist 2 puff INHALATION DAILY RF: 0 albuterol sulfate 2.5 mg /3 mL (0.083 %) Solution For Nebulization 2.5 mg Inhalation BID RF: 0 lisinopril 20 mg Tablet 20 mg PO HS RF: 0 albuterol sulfate [ProAir HFA] 90 mcg/actuation Hfa Aerosol Inhaler 1 - 2 puff Inhalation PRN PRNRF: 0 fluoxetine 20 mg Capsule 20 mg PO DAILY RF: 0 spironolactone 50 mg Tablet 50 mg PO DAILY RF: 0 acetaminophen 325 mg Tablet 650 mg PO PRN PRNRF: 0 Discharge Instructions Instructions: Abnormal (Dysfunctional) Uterine Bleeding (ED), Endometrial Biopsy (DC) Additional Instructions: Your ultrasound today noted a uterine mass which may be a fibroid. You will be contacted by Dr. hPan's gynecology office to schedule an appointment for discussion and likely endometrial biopsy for further evaluation of this mass. Your lab work today is reassuring and your hemoglobin is within normal limits. Return immediately to the emergency department if you develop any worsening or new concerning symptoms such as fever, chest pain, shortness of breath, dizziness or worsening vaginal. Referrals: Genna Phan MD [ [facility] STAFF PHYSICIAN] - Discharge Data Discharge Physician: Sugey Ann Medical Decision Making <Luiz Chery MD - Last Filed: 05/18/21 06:51> 60 yo female with hx of copd on home o2, former smoker, who comes in with cc of vaginal bleeding. She states she felt well yesterdya and did not have any bleeding. She went to bed feeling fine then woke up about an hour ago and had a gush of blood from the vagina. She denies having this issue in the past since menopause. She felt lightheaded when she saw the blood that resolved after a few minutes, denies any chest pain or dyspnea or abdominal pain and has no lightheadedness now. She has no abdominal tenderness. She does have small amount of blood coming from the os on initial exam and does have a clot in the vaginal cault. Suspect fibroid vs tumor, will obtain labs and u/s to further evaluate pt signed out to oncoming provider pending lab and imaging results Differential Diagnosis Differential Diagnosis: fibroid, cancer, anemia Medical Records Medical records reviewed: Yes I reviewed the patient's medical records. ECG Data Attestation: I personally reviewed and interpreted this ECG (s) as follows: Prior ECG tracings: not available for review Interpretation: sinus rhythm, rate of 68, pr 220, qtc 422, no acute st t wave ischemic findings <Sugey Ann DO - Last Filed: 05/18/21 11:12> 0800 -- Please see Dr. Chery's note for initial presentation, exam and plan. Case endorsed to follow-up on ultrasound and final disposition. 0945 -- US notes: IMPRESSION: 1. There is a large solid 9 x 8 centimeter mass which is either a large uterine fibroid or parauterine mass. This was present on prior CT scan of January 2019. 2. Ovaries were not able to be identified. 3. Recommend follow-up contrast infused CT scan or MRI for added specificity here. Case discussed with Dr. Phan. No indication for additional imaging at this time and will follow up with patient in the office with plan for endometrial biopsy. Her office will call the patient to confirm this appointment. Patient also placed on gynecology list to confirm the follow-up appointment. Patient requested her morning meds here. 1100 -- Repeat H&H no significant change. Patient was able to ambulate to the bathroom and no return of vaginal bleeding. She remains hemodynamically stable. She feels comfortable going home. Advised to follow-up with [facility] as directed. Usual and customary return precautions given prior to discharge. Medical Records Medical records reviewed: Yes I reviewed the patient's medical records. Imaging Data Radiologic Study: Radiologist's impression: US PELVIS TRANSVAGINAL CLINICAL HISTORY: vaginal bleeding TECHNIQUE: Ultrasound of the pelvis was performed both transabdominal and transvaginal. COMPARISON: CT CT ABDOMEN PELVIS WO from 01/14/[address] ABDOMEN PELVIS WO from 01/14/2019 US US PAIN CLINIC NEEDLE GUIDANCE from 09/15/2020 FINDINGS: UTERUS: Measures 11 cm length x 9 cm AP x 9 cm wide. There is a large solid mass measuring approximately 9 x 8 x 8 cm which probably represents a large uterine fibroid.This prevents visualization of the remainder of the uterus including the endometrial cavity therefore cannot be assessed. OVARIES: The ovaries were not able to be identified due to this large mass.. CUL-DE-SAC: No free fluid evident. IMPRESSION: 1. There is a large solid 9 x 8 centimeter mass which is either a large uterine fibroid or parauterine mass. This was present on prior CT scan of January 2019. 2. Ovaries were not able to be identified. 3. Recommend follow-up contrast infused CT scan or MRI for added specificity here. Lab Data Lab results reviewed: Yes I reviewed the patient's lab results. Labs: Laboratory Tests Range/Units 05/18/21 05/18/21 05/18/21 06:45 06:45 06:45 WBC (4.4-10.8) 10^3/uL 7.67 RBC (3.93-5.22) 10^6/uL 4.41 Hgb (11.2-15.7) g/dL 12.9 Hct (36.0-46.0) % 41.3 MCV (80-95) fL 93.7 MCH (27.0-33.0) pg 29.3 MCHC (32.0-36.0) % 31.2 L RDW (11.7-14.6) % 13.1 Plt Count (130-400) 10^3/uL 223 MPV (8.0-11.0) fL 8.5 Immature Gran % 0.7 Neutrophils % 79.9 Lymphocytes % 8.7 Monocytes % 6.8 Eosinophils % 3.4 Basophils % 0.5 Nucleated RBC % % 0 Absolute Neutrophils (1.2-6.7) 10^3/uL 6.13 Absolute Lymphocytes (1.2-3.4) 10^3/uL 0.67 L Absolute Monocytes (0.1-0.8) 10^3/uL 0.52 Absolute Eosinophils (0.0-0.7) 10^3/uL 0.26 Absolute Basophils (0.0-0.2) 10^3/uL 0.04 PT (9.3-11.0) sec 10.2 INR (0.9-1.1) 1.0 APTT (21.0-27.5) sec 23.0 Sodium (136-145) mmol/L 133 L Potassium (3.5-5.1) mmol/L 4.3 Chloride (98-107) mmol/L 95 L Carbon Dioxide (21.0-32.0) mmol/L 37.3 H Anion Gap (3-11) mmol/L 0.7 L BUN (7-18) mg/dL 10 Creatinine (0.55-1.02) mg/dL 0.9 Estimated GFR/1.73 m2 (mL/min/1.73m2) >= 60.00 Glucose (74-106) mg/dL 129 H Calcium (8.5-10.1) mg/dL 8.9 Magnesium (1.8-2.4) mg/dL 1.8 Total Bilirubin (0.2-1.0) mg/dL 0.4 AST (15-37) U/L 17 ALT (14-59) U/L 17 Alkaline Phosphatase (46-116) U/L 102 Total Protein (6.4-8.2) g/dL 7.2 Albumin (3.4-5.0) g/dL 3.6 COVID-19 Source SARS-CoV-2 (PCR) (Negative) Patient ABO/Rh Antibody Screen Range/Units 05/18/21 05/18/21 05/18/21 06:45 07:10 10:35 WBC (4.4-10.8) 10^3/uL RBC (3.93-5.22) 10^6/uL Hgb (11.2-15.7) g/dL 12.6 Hct (36.0-46.0) % 39.7 MCV (80-95) fL MCH (27.0-33.0) pg MCHC (32.0-36.0) % RDW (11.7-14.6) % Plt Count (130-400) 10^3/uL MPV (8.0-11.0) fL Immature Gran % Neutrophils % Lymphocytes % Monocytes % Eosinophils % Basophils % Nucleated RBC % % Absolute Neutrophils (1.2-6.7) 10^3/uL Absolute Lymphocytes (1.2-3.4) 10^3/uL Absolute Monocytes (0.1-0.8) 10^3/uL Absolute Eosinophils (0.0-0.7) 10^3/uL Absolute Basophils (0.0-0.2) 10^3/uL PT (9.3-11.0) sec INR (0.9-1.1) APTT (21.0-27.5) sec Sodium (136-145) mmol/L Potassium (3.5-5.1) mmol/L Chloride (98-107) mmol/L Carbon Dioxide (21.0-32.0) mmol/L Anion Gap (3-11) mmol/L BUN (7-18) mg/dL Creatinine (0.55-1.02) mg/dL Estimated GFR/1.73 m2 (mL/min/1.73m2) Glucose (74-106) mg/dL Calcium (8.5-10.1) mg/dL Magnesium (1.8-2.4) mg/dL Total Bilirubin (0.2-1.0) mg/dL AST (15-37) U/L ALT (14-59) U/L Alkaline Phosphatase (46-116) U/L Total Protein (6.4-8.2) g/dL Albumin (3.4-5.0) g/dL COVID-19 Source Nasal/Nares SARS-CoV-2 (PCR) (Negative) Negative Patient ABO/Rh O Positive Antibody Screen NEGATIVE HPI <Luiz Chery MD - Last Filed: 05/18/21 06:51> General Mode of arrival: EMS . Date/Time Provider Initiated Documentation: 05/18/21 06:37 . Limitations to Documentation: no limitations . Information obtained by: patient . History of Present Illness 60 year old F presents to the emergency department with the chief complaint of vaginal bleeding, described as moderate, and it has been intermittent. No relieving factors improve symptom(s), No exacerbating factors reported . Patient did receive the following treatments prior to arrival, none Related Data Home Medications Medication Instructions Recorded Confirmed metoprolol tartrate 100 mg PO BID #60 tab 07/10/16 05/18/21 albuterol sulfate 2.5 mg INHALATION BID 01/14/19 05/18/21 albuterol sulfate [ProAir HFA] 1 - 2 puff INHALATION PRN PRN 01/14/19 05/18/21 fluoxetine 20 mg PO DAILY 01/14/19 05/18/21 lisinopril 20 mg PO HS 01/14/19 05/18/21 spironolactone 50 mg PO DAILY 01/14/19 05/18/21 acetaminophen 650 mg PO PRN PRN 01/21/19 05/18/21 furosemide 40 mg PO DAILY 11/17/19 05/18/21 multivitamin 1 tab DAILY 11/17/19 05/18/21 amitriptyline 25 mg tablet 25 mg PO QHS tab 11/18/19 05/18/21 Stiolto Respimat 2 puff INHALATION DAILY 09/15/20 05/18/21 Previous Rx's Medication Instructions Recorded metoprolol tartrate 100 mg PO BID #60 tab 07/10/16 Allergies Allergy/AdvReac Type Severity Reaction Status Date / Time No Known Allergies Allergy Verified 05/18/21 06:43 General MAYA: 3 Review of Systems <Luiz Chery MD - Last Filed: 05/18/21 06:51> All systems reviewed & are unremarkable except as noted in HPI and below Constitutional Constitutional: Denies chills and Denies fever(s) Cardiovascular Cardiovascular: Denies chest pain and Denies dyspnea Respiratory Respiratory: Denies cough and Denies dyspnea Gastrointestinal Gastrointestinal: Denies nausea and Denies vomiting Genitourinary Genitourinary: Denies dysuria PFS <Luiz Chery MD - Last Filed: 05/18/21 06:51> Medical History (Updated 05/18/21 @ 10:46 by Sugey Ann DO) Alcoholic gastritis COPD (chronic obstructive pulmonary disease) Former smoker History of alcoholism History of CHF (congestive heart failure) History of gastric ulcer Hypertension Hyponatremia Incarcerated inguinal hernia, unilateral Mood disorder with psychosis Neck pain on right side Surgical History EGD - [facility] (07/04/16) S/P left inguinal hernia repair 01/21/19 Dr Odette Cormier, left Social History Smoking/Tobacco Use Status: Former Tobacco Use Quit Date: 01/13/15 Smoking risk assessment performed?: Yes Alcohol Intake: former Drug use: Never Substance use type: does not use Do you feel safe at home: Yes Do you feel safe in your relationship?: Yes Exam <Luiz Chery MD - Last Filed: 05/18/21 06:51> Const General: no acute distress Orientation: alert [facility] Head: normal to inspection Ears: external ears normal General nose exam: external nose normal Mouth: moist mucous membranes Eyes General: appearance normal, both eyes and all related structures Neck Neck: normal visual inspection Resp Effort & Inspection: normal respiratory effort and able to speak in complete sentences Cardio Rate: regular rate GI Palpation: soft and nontender Skin General skin exam: no rashes or lesions noted Neuro General: patient alert and patient oriented x3 Extrem General: normal to inspection Psych Mental Status: mental status grossly normal Sign Out <Luiz Chery MD - Last Filed: 05/18/21 06:51> Sign Out Data: Sign Out Comment: woke up and had vaginal bleeding, brief sensation of lightheadedness when it happened. Pending labs and u/s Last updated by Luiz Chery MD at 05/18/21 06:52
[2021-05-18 07:00] LABS: Abs Immature Grans 0.05 10^3/uL (0.0-0.06); Absolute Basophil Count 0.04 10^3/uL (0.0-0.2); Absolute Eosinophil Count 0.26 10^3/uL (0.0-0.7); Absolute Lymphocyte Count 0.67 10^3/uL (1.2-3.4); Absolute Monocyte Count 0.52 10^3/uL (0.1-0.8); Absolute Neutrophil Count 6.13 10^3/uL (1.2-6.7); Basophils % 0.5; Eosinophils % 3.4; HCT 41.3 % (36.0-46.0); HGB 12.9 g/dL (11.2-15.7); Immature Grans % 0.7; Lymphocytes % 8.7; MCH 29.3 pg (27.0-33.0); MCHC 31.2 % (32.0-36.0); MCV 93.7 fL (80-95); MPV 8.5 fL (8.0-11.0); Monocytes % 6.8; Neutrophils % 79.9; Nucleated RBC 0 %; Platelet Count 223 10^3/uL (130-400); RBC 4.41 10^6/uL (3.93-5.22); RDW 13.1 % (11.7-14.6); RDW-SD 44.9 fL; WBC 7.67 10^3/uL (4.4-10.8)
--- NOTE | 2021-05-18 07:00 | DI.US_ITS ---
Exam(s) US PELVIS TRANSVAGINAL EXAM: US PELVIS TRANSVAGINAL CLINICAL HISTORY: vaginal bleeding TECHNIQUE: Ultrasound of the pelvis was performed both transabdominal and transvaginal. COMPARISON: CT CT ABDOMEN PELVIS WO from 01/14/[address] ABDOMEN PELVIS WO from 01/14/2019 US US PAIN CLINIC NEEDLE GUIDANCE from 09/15/2020 FINDINGS: UTERUS: Measures 11 cm length x 9 cm AP x 9 cm wide. There is a large solid mass measuring approximately 9 x 8 x 8 cm which probably represents a large ut erine fibroid.This prevents visualization of the remainder of the uterus including the endometrial ca vity therefore cannot be assessed. OVARIES: The ovaries were not able to be identified due to this large mass.. CUL-DE-SAC: No free fluid evident. IMPRESSION: 1. There is a large solid 9 x 8 centimeter mass which is either a large uterine fibroid or parauterin e mass. This was present on prior CT scan of January 2019. 2. Ovaries were not able to be identified. 3. Recommend follow-up contrast infused CT scan or MRI for added specificity here. DATA REPOSITORY:
[2021-05-18 07:13] LABS: ALT 17 U/L (14-59); AST 17 U/L (15-37); Albumin 3.6 g/dL (3.4-5.0); Alkaline Phosphatase 102 U/L (46-116); Anion Gap 0.7 mmol/L (3-11); BUN 10 mg/dL (7-18); Bilirubin, Total 0.4 mg/dL (0.2-1.0); CO2 37.3 mmol/L (21.0-32.0); CREATININE 0.9 mg/dL (0.55-1.02); Calcium 8.9 mg/dL (8.5-10.1); Chloride 95 mmol/L (98-107); Glucose 129 mg/dL (74-106); Magnesium 1.8 mg/dL (1.8-2.4); Potassium 4.3 mmol/L (3.5-5.1); Sodium 133 mmol/L (136-145); Total Protein 7.2 g/dL (6.4-8.2)
[2021-05-18 07:18] LABS: Prothrombin Time 10.2 sec (9.3-11.0)
[2021-05-18 07:31] LABS: Source Nasal/Nares
[2021-05-18 08:24] LABS: COVID-19 PCR Negative (Negative)
--- NOTE | 2021-05-18 09:54 | NUR.NOTE ---
Nursing Note: Referral fax[facility] to [facility] for follow up of uterine fibroid or mass on US. Consulted with Dr. Phan, planning procedure. Within the next few days. Cally John
[2021-05-18] MEDS: Furosemide 40 MG TAB PO (10:26)
[2021-05-18] MEDS: Spironolactone 50 MG TAB PO (10:26)
[2021-05-18] MEDS: FLUoxetine 20 MG CAP PO (10:26)
[2021-05-18] MEDS: Metoprolol 50 MG TAB 100 MG PO (10:26)
[2021-05-18 10:37] LABS: HCT 39.7 % (36.0-46.0); HGB 12.6 g/dL (11.2-15.7)
== END 2021-05-18 12:09 | disposition home or self-care (01) ==
PROVIDERS: Emergency Medicine; Emergency Provider Physician Assistant; PCP Family Medicine
DX: N95.0 Postmenopausal bleeding (principal); N85.8 Other specified noninflammatory disorders of uterus
CPT/HCPCS: 36415; 80053; 86850; 86900; 86901; 87635; 93005; 99284; 76830; 76856; 83735; 85014; 85018; 85025; 85610; 85730; 93010

== ENCOUNTER 2021-05-18 17:23 | Emergency (ER) | payer MEDICARE, SELFPAY ==
[2021-05-18] VITALS (17 sets, daily range): BP systolic 131–168; BP diastolic 73–95; PULSE 64–74; RESP 16–27; TEMP 36.1; O2SAT 95–100
--- NOTE | 2021-05-18 17:56 | ED.GENADUL_ITS ---
Discharge Plan Disposition Patient Disposition: HOME Condition: Good Discharge Details Clinical Impression: Abnormal vaginal bleeding Primary Care Provider: Hardy Eagle ED Provider: Douglas Alvarenga Home Meds and New Rx's Prescriptions: Continued multivitamin Tablet 1 tab DAILY RF: 0 furosemide 40 mg tablet 40 mg PO DAILY RF: 0 amitriptyline 25 mg tablet 25 mg PO QHS RF: 0 metoprolol tartrate 100 MG tablet 100 mg PO BID Qty: 60 RF: 1 Stiolto Respimat 2.5-2.5 mcg/actuation Mist 2 puff INHALATION DAILY RF: 0 albuterol sulfate 2.5 mg /3 mL (0.083 %) Solution For Nebulization 2.5 mg Inhalation BID RF: 0 lisinopril 20 mg Tablet 20 mg PO HS RF: 0 albuterol sulfate [ProAir HFA] 90 mcg/actuation Hfa Aerosol Inhaler 1 - 2 puff Inhalation PRN PRNRF: 0 fluoxetine 20 mg Capsule 20 mg PO DAILY RF: 0 spironolactone 50 mg Tablet 50 mg PO DAILY RF: 0 acetaminophen 325 mg Tablet 650 mg PO PRN PRNRF: 0 Discharge Instructions Instructions: Abnormal (Dysfunctional) Uterine Bleeding (ED) Additional Instructions: At this time your hemoglobin levels are stable, your heart rate is normal, your blood pressure is good. You have been given the medication medroxyprogesterone which will help slow the bleeding. Please follow-up closely with the OB doctor tomorrow at your appointment. If you notice any worsening of your symptoms, or any new symptoms such as vom iting, diarrhea, fever, chills, shortness of breath, chest pain, numbness, weakness, or fainting , please return immediately to the emergency department for reevaluation. Please follow up with your primary care provider as soon as possible for reassessment and reevaluation. As always, it was a pleasure participating in your medical care today. Referrals: Diane Celestin DO [OSTEOPATHIC DOCTOR] - Genna Phan MD [ [facility] STAFF PHYSICIAN] - Medical Decision Making 60-year-old female presents today for vaginal bleeding. She was here earlier today she was noted to have a large uterine mass. Concern for fibroid. She was discharged home as her vital signs and hemoglobin levels are stable. Throughout the day she has had continued notable bleeding and clots. She denies lightheadedness or syncope. She still admits to mild abdominal discomfort. She denies any chest pain or shortness of breath. She is not on any blood thinners. No other complaints at this time. No other modifying factors. She has not transfused earlier as there was no indication. She has not yet followed up with OB gynecology as that appointment is tomorrow. Physical exam demonstrates evidence of clots in the vaginal vault, as well as a steady slow ooze of blood. Patient's vital signs are stable. No tachycardia or hypotension. We will get a repeat CBC and evaluate for hemoglobin status, with potential for admission. Patient is notably concerned with the amount of blood that she was last throughout today. 6:26 PM Patient laboratory work-up has returned, hemoglobin is notably stable at 12.1, only 0.5 lower than earlier today. She remains normotensive with no tachycardia. I did contact OB/Dr. Phan, and discussed the case with her. She does recommend starting medroxyprogesterone to be started here and prompt follow-up tomorrow morning. With no evidence of hemodynamic instability, there is no indication for emergent operative management at this time. Discussed the case with the patient's daughter, Evonne, she is comfortable with the plan. Discussed red flags which to return. We will start the patient on the medroxyprogesterone here tonight. I have extensively reviewed the treatment plan and discharge instructions with the patient. I have addressed all patient concerns at this time. The patient was made aware of what symptoms to monitor for that would warrant a return to the emergency department. Discussed the plan with the patient, they demonstrate verbal understanding and agreement with our assessment and plan at this time. The documentation in this chart was dictated using [employer] dictation software. Please excuse any dictation errors. HPI General Date/Time Provider Initiated Documentation: 05/18/21 17:45 . HPI Narrative: 60-year-old female presents today for vaginal bleeding. She was here earlier today she was noted to have a large uterine mass. Concern for fibroid. She was discharged home as her vital signs and hemoglobin levels are stable. Throughout the day she has had continued notable bleeding and clots. She denies lightheadedness or syncope. She still admits to mild abdominal discomfort. She denies any chest pain or shortness of breath. She is not on any blood thinners. No other complaints at this time. No other modifying factors. She has not transfused earlier as there was no indication. She has not yet followed up with OB gynecology as that appointment is tomorrow. Related Data Home Medications Medication Instructions Recorded Confirmed metoprolol tartrate 100 mg PO BID #60 tab 07/10/16 05/18/21 albuterol sulfate 2.5 mg INHALATION BID 01/14/19 05/18/21 albuterol sulfate [ProAir HFA] 1 - 2 puff INHALATION PRN PRN 01/14/19 05/18/21 fluoxetine 20 mg PO DAILY 01/14/19 05/18/21 lisinopril 20 mg PO HS 01/14/19 05/18/21 spironolactone 50 mg PO DAILY 01/14/19 05/18/21 acetaminophen 650 mg PO PRN PRN 01/21/19 05/18/21 furosemide 40 mg PO DAILY 11/17/19 05/18/21 multivitamin 1 tab DAILY 11/17/19 05/18/21 amitriptyline 25 mg tablet 25 mg PO QHS tab 11/18/19 05/18/21 Stiolto Respimat 2 puff INHALATION DAILY 09/15/20 05/18/21 Previous Rx's Medication Instructions Recorded metoprolol tartrate 100 mg PO BID #60 tab 07/10/16 Allergies Allergy/AdvReac Type Severity Reaction Status Date / Time No Known Allergies Allergy Verified 05/18/21 17:39 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: 3 Review of Systems All systems reviewed & are unremarkable except as noted in HPI and below [facility] Medical History (Updated 05/18/21 @ 18:30 by Douglas Alvarenga DO) Alcoholic gastritis COPD (chronic obstructive pulmonary disease) Former smoker History of alcoholism History of CHF (congestive heart failure) History of gastric ulcer Hypertension Hyponatremia Incarcerated inguinal hernia, unilateral Mood disorder with psychosis Neck pain on right side Surgical History EGD - MAC (07/04/16) S/P left inguinal hernia repair 01/21/19 Dr Odette Cormier, left Social History Smoking/Tobacco Use Status: Former Tobacco Use Quit Date: 01/13/15 Smoking risk assessment performed?: Yes Alcohol Intake: former Drug use: Never Substance use type: does not use Do you feel safe at home: Yes Do you feel safe in your relationship?: Yes Exam Narrative Exam Narrative: 1.Const: Well-nourished, Well-developed, appearing stated age 2.Eyes: PERRL, no conjunctival injection, and symmetrical lids. 3.ENT: Atraumatic external nose and ears. Moist MM. Neck: Symmetric, trachea midline, No thyromegaly. 4.CVS: +S1/S2, No murmurs or gallops. Peripheral pulses 2+ and equal in all ex tremities. Brisk capillary refill in all extremities. 5.RESP: Unlabored respiratory effort. Clear to auscultation bilaterally. No wheezes rales or rhonchi 6.GI: Soft, Nontender/Nondistended, No hepatosplenomegaly. No guarding or rebound. Vaginal exam was performed with female nurse Theodora at bedside. Patient does have notable clots in mild continued oozing vaginally of blood. 7.MSK: Normocephalic/Atraumatic, Extremities w/o deformity or ttp No cyanosis or clubbing, Normal movement of all extremities 8.Skin: Warm, Dry. No rashes or lesions. 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 Sensation grossly intact, no focal neurologic deficits. 10.Psych: (AAO) x3. Appropriate mood and affect Course Vital Signs Vital signs: Vital Signs Temperature 36.1 C L 05/18/21 17:35 Pulse 65 05/18/21 17:35 Respiratory Rate 16 05/18/21 17:35 Blood Pressure 165/91 H 05/18/21 17:35 Pulse Oximetry 100 05/18/21 17:35 Temperature 36.1 C L 05/18/21 17:35 Temperature Source Skin 05/18/21 17:35 Pulse 65 05/18/21 17:35 Respiratory Rate 16 05/18/21 17:35 Respiratory Effort 05/18/21 17:35 Blood Pressure 165/91 H 05/18/21 17:35 Blood Pressure Position Supine 05/18/21 17:35 Pulse Oximetry 100 05/18/21 17:35 Oxygen Delivery Method Nasal Cannula 05/18/21 17:35 Oxygen Flow Rate 2 05/18/21 17:35 Pain Level 6 05/18/21 17:41 Comment 05/18/21 17:35
[2021-05-18 18:03] LABS: Abs Immature Grans 0.05 10^3/uL (0.0-0.06); Absolute Basophil Count 0.04 10^3/uL (0.0-0.2); Absolute Eosinophil Count 0.14 10^3/uL (0.0-0.7); Absolute Lymphocyte Count 0.86 10^3/uL (1.2-3.4); Absolute Monocyte Count 1.17 10^3/uL (0.1-0.8); Basophils % 0.4; Eosinophils % 1.3; HCT 37.4 % (36.0-46.0); HGB 12.1 g/dL (11.2-15.7); Immature Grans % 0.5; Lymphocytes % 7.9; MCH 29.7 pg (27.0-33.0); MCHC 32.4 % (32.0-36.0); MCV 91.7 fL (80-95); MPV 8.6 fL (8.0-11.0); Monocytes % 10.7; Neutrophils % 79.2; Nucleated RBC 0 %; Platelet Count 228 10^3/uL (130-400); RBC 4.08 10^6/uL (3.93-5.22); WBC 10.89 10^3/uL (4.4-10.8)
[2021-05-18 18:05] LABS: Absolute Neutrophil Count 8.62 10^3/uL (1.2-6.7)
[2021-05-18 18:19] LABS: ALT 20 U/L (14-59); AST 15 U/L (15-37); Albumin 3.7 g/dL (3.4-5.0); Alkaline Phosphatase 97 U/L (46-116); Anion Gap 0.2 mmol/L (3-11); BUN 11 mg/dL (7-18); Bilirubin, Total 0.3 mg/dL (0.2-1.0); CO2 37.8 mmol/L (21.0-32.0); CREATININE 0.9 mg/dL (0.55-1.02); Calcium 9.2 mg/dL (8.5-10.1); Chloride 94 mmol/L (98-107); Glucose 98 mg/dL (74-106); Potassium 4.2 mmol/L (3.5-5.1); Sodium 132 mmol/L (136-145); Total Protein 7.2 g/dL (6.4-8.2)
[2021-05-18] MEDS: medroxyPROGESTERone 10 MG TAB PO (19:26)
== END 2021-05-18 19:25 | disposition home or self-care (01) ==
PROVIDERS: Emergency Provider Student in an Organized Health Care Education/Training Program; PCP Family Medicine
DX: N93.9 Abnormal uterine and vaginal bleeding, unspecified (principal)
CPT/HCPCS: 36415; 80053; 99283; 85025

== ENCOUNTER 2021-05-19 16:18 | Outpatient (REF) | payer MEDICARE, SELFPAY ==
--- NOTE | 2021-05-19 15:00 | ENDOMET_PTH ---
PATIENT: Deepthi Hernandez LOC: [facility] U#:[id number] AGE/SX: 60/F ROOM: RE05/19/[address]: Genna Phan : 1960 BED: DIS: 05/19/2021 SPEC #: [id number] RECD: 05/19/21 16:42 STATUS: LUCIA REQ #: [id number] BRYAN: 05/19/21 15:[address]: Genna Phan DEPT: Surgical Specimen RECD BY: Gemma Hooks ENTERED: 05/19/21 16:43 SP TYPE: Endomet OTHR DR: Hardy Eagle Tissues: 1 - ENDOMETRIUM BX/SHIVETTE Procedures: GROSS AND MICRO LEVEL 4 Comments: [id number]
== END 2021-05-19 16:19 | disposition home or self-care (01) ==
LOC: LBN 16:18
PROVIDERS: PCP Family Medicine; Visit Provider Obstetrics & Gynecology Gynecology
DX: N95.0 Postmenopausal bleeding (principal)
CPT/HCPCS: 88305

== ENCOUNTER 2021-05-23 15:00 | Outpatient (REF) | payer MEDICARE, SELFPAY ==
[2021-05-23 16:42] LABS: HCT 28.1 % (36.0-46.0); HGB 8.9 g/dL (11.2-15.7); MCHC 31.7 % (32.0-36.0); MCV 94.6 fL (80-95); MPV 9.5 fL (8.0-11.0); Platelet Count 293 10^3/uL (130-400); RBC 2.97 10^6/uL (3.93-5.22); RDW 13.6 % (11.7-14.6); RDW-SD 47.1 fL; WBC 10.46 10^3/uL (4.4-10.8)
== END 2021-05-23 15:01 | disposition home or self-care (01) ==
LOC: NCHCN 15:00
PROVIDERS: PCP Family Medicine; Visit Provider Family Medicine
DX: D50.0 Iron deficiency anemia secondary to blood loss (chronic) (principal)
CPT/HCPCS: 85027

== ENCOUNTER 2021-05-26 17:49 | Inpatient (IN) | payer MEDICARE, SELFPAY ==
[2021-05-26] VITALS (19 sets, daily range): BP systolic 107–158; BP diastolic 70–98; PULSE 80–98; RESP 16–26; TEMP 36.6–37.2; O2SAT 95–100
--- NOTE | 2021-05-26 17:30 | RT.EKG_ITS ---
APPROVED REPORT Exam: Resting ECG Reason for Exam: chest pain, sob Patient Location: E HR:78 bpm ECG Measurements Heart Rate 78 AXIS RI 183 P 87 QRSd 94 QRS 0 QT 369 T 50 QTc 421 Conclusion Sinus rhythm...normal P axis, V-rate 60- 99 Low voltage, precordial leads...precordial leads <1.0mV. Sinus. No STEMI. I have reviewed and interpreted ECG and agree with software generated interpretation.
--- NOTE | 2021-05-26 18:15 | ED.GENADUL_ITS ---
Discharge Plan Disposition Patient Disposition: [facility] INPATIENT Condition: Stable Discharge Details Clinical Impression: Acute anemia, Postmenopausal bleeding, Dyspnea on exertion Admit Date/Time: 05/27/21 09:26 Admit Provider: Hardy Daniel Attending Provider: Hardy Daniel Primary Care Provider: Hardy Eagle ED Provider: Sugey Ann Discharge Data Discharge Date/Time-TO BE ENTERED AT DEPARTURE: 05/26/21 21:17 Medical Decision Making 60-year-old female with w/ recent post-menopausal bleeding with recently diagnosed parauterine mass on ultrasound 05/18 w/ endometrial biopsy with HSE SPECIALIST on 05/19 presents for continued vaginal bleeding as well as an episode of shortness of breath last night requiring increase of her normal 2 L of nasal cannula oxygen up to 6 L. EKG notes a rate of 78, sinus, no STEMI. EMS reported an O2 sat of 77% on 2 L nasal cannula which increased to 97% on 10 L nonrebreather. Oxygen saturation 98% on 2 L here in the ED. Upon my assessment, patient states she feels much better. Remainder of her vitals are within normal limits. Nursing noted that pt had a medium sized clot in the commode in the room but has not had continued bleeding while laying on stretcher. Endometrial biopsy from 05/19 noted Scant inflamed endocervical and squamous mucosa. Insufficient endometrium for further diagnosis. We will obtain screening labs, chest x-ray. Patient states she cannot go home due to her weakness and concern for continued bleeding. Case discussed with [employer] Dr. Celestin. Patient's is currently taking norethindrone 10 mg twice daily. She is planned for a hysteroscopy this week and they can f/u with pt on this admission but no indication for emergent intervention at this time. Labs reviewed. White blood cell count 13. Hemoglobin down trended from 8.9 on 05/23 to 6.9 today. 1 unit of blood ordered. Will admit to the hospital for acute anemia in the setting of dyspnea on exertion and continued vaginal bleeding for serial hemoglobins and blood transfusions if needed. Gynecology will see her while inpatient. Case discussed with hospitalist who accepts patient for admission. Medical Records Medical records reviewed: Yes I reviewed the patient's medical records. Imaging Data Radiologic Study: Radiologist's impression: Pelvis US from 05/18/21 noted: IMPRESSION: 1. There is a large solid 9 x 8 centimeter mass which is either a large uterine fibroid or parauterine mass. This was present on prior CT scan of January 2019. 2. Ovaries were not able to be identified. 3. Recommend follow-up contrast infused CT scan or MRI for added specificity here. XR Chest - 05/26/21 Exam date and time: 05/26/2021 6:47 PM Age: 60 years old Clinical indication: Shortness of breath TECHNIQUE: Imaging protocol: XR of the chest. Views: 1 view. COMPARISON: CR CHEST 2 VIEWS PA,LAT 07/09/2016 2:42 PM FINDINGS: Lungs: No mass. No consolidation. Pleural spaces: Unremarkable. No pleural effusion. No pneumothorax. Heart/Mediastinum: Unremarkable cardiomediastinal silhouette. No cardiomegaly. Bones/joints: Unremarkable. There is dextroscoliosis of the thoracolumbar spine. IMPRESSION: No evidence for acute cardiopulmonary disease. Lab Data Lab results reviewed: Yes I reviewed the patient's lab results. Labs: Laboratory Tests Range/Units 05/26/21 05/26/21 05/26/21 19:06 19:06 19:40 WBC (4.4-10.8) 10^3/uL 13.15 H RBC (3.93-5.22) 10^6/uL 2.36 L Hgb (11.2-15.7) g/dL 6.9 L* Hct (36.0-46.0) % 21.5 L MCV (80-95) fL 91.1 MCH (27.0-33.0) pg 29.2 MCHC (32.0-36.0) % 32.1 RDW (11.7-14.6) % 13.8 Plt Count (130-400) 10^3/uL 275 MPV (8.0-11.0) fL 8.5 Immature Gran % 0.4 Neutrophils % 84.6 Lymphocytes % 6.5 Monocytes % 6.9 Eosinophils % 1.4 Basophils % 0.2 Nucleated RBC % % 0 Absolute Neutrophils (1.2-6.7) 10^3/uL 11.12 H Absolute Lymphocytes (1.2-3.4) 10^3/uL 0.85 L Absolute Monocytes (0.1-0.8) 10^3/uL 0.91 H Absolute Eosinophils (0.0-0.7) 10^3/uL 0.18 Absolute Basophils (0.0-0.2) 10^3/uL 0.03 RBC Morphology See Below Polychromasia Present Sodium (136-145) mmol/L 128 L Potassium (3.5-5.1) mmol/L 4.2 Chloride (98-107) mmol/L 93 L Carbon Dioxide (21.0-32.0) mmol/L 31.4 Anion Gap (3-11) mmol/L 3.6 BUN (7-18) mg/dL 9 Creatinine (0.55-1.02) mg/dL 0.8 Estimated GFR/1.73 m2 (mL/min/1.73m2) >= 60.00 Glucose (74-106) mg/dL 106 Calcium (8.5-10.1) mg/dL 8.6 Magnesium (1.8-2.4) mg/dL 1.8 Total Bilirubin (0.2-1.0) mg/dL 0.3 AST (15-37) U/L 17 ALT (14-59) U/L 24 Alkaline Phosphatase (46-116) U/L 64 Troponin I (<0.06) ng/mL < 0.05 Total Protein (6.4-8.2) g/dL 6.1 L Albumin (3.4-5.0) g/dL 3.1 L Crossmatch See Detail ECG Data Attestation: I personally reviewed and interpreted this ECG (s) as follows: Interpretation: Rate of 78, sinus, no acute ST elevation or depression. MO 193. QRS 94. QTc 421. HPI General Mode of arrival: ambulatory . Date/Time Provider Initiated Documentation: 05/26/21 18:15 . Limitations to Documentation: no limitations . Information obtained by: patient . HPI Narrative: Pt is a 60-year-old female with w/ recent post-menopausal bleeding with recently diagnosed parauterine mass on ultrasound 05/18 w/ endometrial biopsy with HSE SPECIALIST on 05/19 presents for continued vaginal bleeding as well as an episode of shortness of breath last night requiring increase of her normal 2 L of nasal cannula oxygen up to 6 L. Patient states last night while sitting in bed she became more short of breath. She states this is worse with exertion. She denies any fever, cough or chest pain. She states her vaginal bleeding subsides at times but randomly she has large clots. She states she does not feel comfortable going home as she becomes weak and short of breath with ambulating requiring increase in her oxygen and she is too afraid to go home. She states the psychometric examiner advised that she may need surgery and she wants this done soon as possible. Related Data Home Medications Medication Instructions Recorded Confirmed metoprolol tartrate 100 mg PO BID #60 tab 07/10/16 05/26/21 albuterol sulfate 2.5 mg INHALATION BID 01/14/19 05/26/21 albuterol sulfate [ProAir HFA] 1 - 2 puff INHALATION PRN PRN 01/14/19 05/26/21 fluoxetine 20 mg PO DAILY 01/14/19 05/26/21 lisinopril 20 mg PO HS 01/14/19 05/26/21 spironolactone 50 mg PO DAILY 01/14/19 05/26/21 acetaminophen 650 mg PO PRN PRN 01/21/19 05/26/21 furosemide 40 mg PO DAILY 11/17/19 05/26/21 multivitamin 1 tab DAILY 11/17/19 05/26/21 amitriptyline 25 mg tablet 25 mg PO QHS tab 11/18/19 05/26/21 Stiolto Respimat 2 puff INHALATION DAILY 09/15/20 05/26/21 norethindrone acetate 5 mg tablet 5 mg PO .COMPLEX #45 tab 05/19/21 05/26/21 ipratropium-albuterol 3 ml INHALATION QID 05/27/21 05/27/21 lorazepam [Ativan] 1 mg PO TID PRN #20 tab 05/28/21 Previous Rx's Medication Instructions Recorded metoprolol tartrate 100 mg PO BID #60 tab 07/10/16 norethindrone acetate 5 mg tablet 5 mg PO .COMPLEX #45 tab 05/19/21 lorazepam [Ativan] 1 mg PO TID PRN #20 tab 05/28/21 Allergies Allergy/AdvReac Type Severity Reaction Status Date / Time No Known Allergies Allergy Verified 05/26/21 18:14 General Stated Complaint: SOB MAYA: 2 Review of Systems All systems reviewed & are unremarkable except as noted in HPI and below Constitutional Constitutional: Reports as per HPI, Denies chills, Denies fever(s) and Reports weakness Eyes Eyes: Denies blurry vision ENT Ears, Nose, Mouth, and Throat: Denies dizziness, Denies sore throat and Denies throat swelling Cardiovascular Cardiovascular: Denies chest pain and Reports dyspnea Respiratory Respiratory: Denies cough and Reports dyspnea Gastrointestinal Gastrointestinal: Denies abdominal pain, Denies diarrhea and Denies vomiting Genitourinary Genitourinary: Denies hematuria, Denies dysuria and Reports other (vaginal bleeding) Musculoskeletal Musculoskeletal: Denies back pain and Denies numbness Integumentary/Breasts Skin/Breast: Denies lesions and Denies rash Neurologic Neurologic: Denies dizziness, Denies localized weakness, Denies numbness and Reports weakness Allergic/Immunologic Allergic/Immunologic: Denies throat swelling [facility] Active Problem List (Updated 05/28/21 @ 10:56 by Sharon Russo NP) Anxiety (Chronic) Dyspnea (Acute) Post-menopausal bleeding (Acute) Uterine mass (Acute) Abnormal vaginal bleeding (Acute) Acute anemia (Acute) Postmenopausal bleeding (Acute) Dyspnea on exertion (Acute) S/P left inguinal hernia repair (Acute) Left inguinal hernia (Acute) Incarcerated inguinal hernia, unilateral (Acute) Small bowel obstruction (Acute) Dehydration (Acute) Hypertension (Chronic) Change in mental status (Acute) Paroxysmal SVT (supraventricular tachycardia) (Acute) Cardiomyopathy (Acute) PUD (peptic ulcer disease) (Acute) Iron deficiency anemia due to chronic blood loss (Acute) Chronic bronchitis with COPD (chronic obstructive pulmonary disease) (Acute) Alcohol abuse (Acute) Pneumonia (Acute) COPD (chronic obstructive pulmonary disease) (Chronic) Medical History (Updated 05/28/21 @ 10:56 by Sharon Russo NP) Alcoholic gastritis Former smoker Hyponatremia Mood disorder with psychosis Neck pain on right side Surgical History EGD - MAC (07/04/16) S/P left inguinal hernia repair 01/21/19 Dr Odette Cormier, left Social History Smoking/Tobacco Use Status: Former Tobacco Use Quit Date: 01/13/15 Smoking risk assessment performed?: Yes Alcohol Intake: former Drug use: Never Substance use type: does not use Do you feel safe at home: Yes Do you feel safe in your relationship?: Yes Exam Const General: cooperative and anxious HENNJ Head: normal to inspection Face and sinus: normal facial exam Eyes General: appearance normal, both eyes and all related structures EOM: EOM intact bilaterally Neck Neck: normal visual inspection and No submandibular swelling Lymphatic: no lymphadenopathy noted Chest Chest: normal inspection of the chest and no tenderness Resp Effort & Inspection: normal respiratory effort and able to speak in complete sentences Auscultation: clear to auscultation bilaterally Cardio Rate: regular rate Rhythm: regular rhythm GI Inspection: normal to inspection Palpation: soft, not firm, not rigid and nontender Auscultation: normal bowel sounds Skin General skin exam: no rashes or lesions noted Neuro General: patient alert, patient awake and patient oriented x3 Cognition: normal cognition Speech: speech normal Motor: muscle tone normal throughout Sensory Exam: no sensory deficits noted Extrem General: normal to inspection, full ROM, capillary refill normal, no calf tenderness bilaterally and no edema Psych Appearance: grossly normal Mental Status: mental status grossly normal Speech and Movement: speech and movement normal Affect: normal affect Course Vital Signs Vital signs: Vital Signs Temperature 99.0 F 05/26/21 17:49 Pulse 95 H 05/26/21 17:49 Respiratory Rate 24 05/26/21 17:49 Blood Pressure 137/93 H 05/26/21 17:49 Pulse Oximetry 95 05/26/21 17:49 Temperature 99.0 F 05/26/21 17:49 Temperature Source Temporal Artery Scan 05/26/21 17:49 Pulse 95 H 05/26/21 17:49 Respiratory Rate 24 05/26/21 17:49 Blood Pressure 137/93 H 05/26/21 17:49 Pulse Oximetry 95 05/26/21 17:49 Oxygen Delivery Method Nasal Cannula 05/26/21 17:49 Pain Level 0 05/26/21 17:49
--- NOTE | 2021-05-26 18:45 | DI.RAD_ITS ---
Exam(s) XR PORTABLE CHEST AP EXAM: XR PORTABLE CHEST AP CLINICAL HISTORY: shortness of breath, r/o acute disease. TECHNIQUE: 2D digital imaging was performed. COMPARISON: CR CHEST 2 VIEWS PA,LAT from 07/09/2016 FINDINGS: LUNGS: Clear. No pleural abnormality seen. HEART: Normal. MEDIASTINUM: Normal. OTHER FINDINGS: None. IMPRESSION: No acute pulmonary findings. DATA REPOSITORY: RADIATION DOSE DELIVERED: Total DLP
[2021-05-26 19:19] LABS: Abs Immature Grans 0.05 10^3/uL (0.0-0.06); Absolute Basophil Count 0.03 10^3/uL (0.0-0.2); Absolute Monocyte Count 0.91 10^3/uL (0.1-0.8); Basophils % 0.2; Eosinophils % 1.4; HCT 21.5 % (36.0-46.0); Immature Grans % 0.4; Lymphocytes % 6.5; MCH 29.2 pg (27.0-33.0); MCHC 32.1 % (32.0-36.0); MCV 91.1 fL (80-95); MPV 8.5 fL (8.0-11.0); Monocytes % 6.9; Neutrophils % 84.6; Nucleated RBC 0 %; Platelet Count 275 10^3/uL (130-400); RBC 2.36 10^6/uL (3.93-5.22); RDW 13.8 % (11.7-14.6); RDW-SD 45.7 fL; WBC 13.15 10^3/uL (4.4-10.8)
[2021-05-26 19:20] LABS: Absolute Eosinophil Count 0.18 10^3/uL (0.0-0.7); Absolute Lymphocyte Count 0.85 10^3/uL (1.2-3.4); Absolute Neutrophil Count 11.12 10^3/uL (1.2-6.7)
[2021-05-26 19:21] LABS: HGB 6.9 g/dL (11.2-15.7)
[2021-05-26 19:31] LABS: Albumin 3.1 g/dL (3.4-5.0); Alkaline Phosphatase 64 U/L (46-116); BUN 9 mg/dL (7-18); Bilirubin, Total 0.3 mg/dL (0.2-1.0); CREATININE 0.8 mg/dL (0.55-1.02); Calcium 8.6 mg/dL (8.5-10.1); Chloride 93 mmol/L (98-107); Glucose 106 mg/dL (74-106); Potassium 4.2 mmol/L (3.5-5.1); Sodium 128 mmol/L (136-145); Total Protein 6.1 g/dL (6.4-8.2)
[2021-05-26 19:32] LABS: ALT 24 U/L (14-59); AST 17 U/L (15-37); Anion Gap 3.6 mmol/L (3-11); CO2 31.4 mmol/L (21.0-32.0); Magnesium 1.8 mg/dL (1.8-2.4); Troponin I < 0.05 ng/mL (<0.06)
[2021-05-26 19:35] LABS: Diff Comment RBC Morph Reviewed; Polychromasia Present
--- NOTE | 2021-05-26 19:56 | DI.VRAD_ITS ---
PROCEDURE INFORMATION: Exam: XR Chest Exam date and time: 05/26/2021 6:47 PM Age: 60 years old Clinical indication: Shortness of breath TECHNIQUE: Imaging protocol: XR of the chest. Views: 1 view. COMPARISON: CR CHEST 2 VIEWS PA,LAT 07/09/2016 2:42 PM FINDINGS: Lungs: No mass. No consolidation. Pleural spaces: Unremarkable. No pleural effusion. No pneumothorax. Heart/Mediastinum: Unremarkable cardiomediastinal silhouette. No cardiomegaly. Bones/joints: Unremarkable. There is dextroscoliosis of the thoracolumbar spine. IMPRESSION: No evidence for acute cardiopulmonary disease. Dictated and Authenticated by: Audie Contreras MD. Ordering:BJORN Mayes MD
--- NOTE | 2021-05-26 20:18 | W.PM.HP.N ---
Date of service: 05/26/21 Time of Service: 20:18 Assessment and Plan Assessment and plan (1) Post-menopausal bleeding: Status: Acute Assessment and plan: This post menopausal bleeding problem is currently being investigated by gynecology. Gynecology was consulted tonight and they will be planning a hysteroscopy. I will ask for RESPIRATORY SERVICES MANAGER consult tomorrow and will keep her n.p.o. after midnight in case they decide to do a procedure tomorrow. (2) Acute anemia: Status: Acute Assessment and plan: This anemia appears likely due to her postmenopausal bleeding. She will be transfused 1 unit of blood and her hemoglobin be rechecked tomorrow. (3) Dyspnea: Status: Acute Assessment and plan: She has chronic lung disease and is on home oxygen. I think there is a component of anxiety here today as well as today at home. I will check a D-dimer to see how that looks. If the D-dimer elevated she may need a CT angiogram of the lung. Her chest x-ray is stable at this time. History of Present Illness History of Present Illness Chief Complaint: vaginal bleeding and dyspnea Narrative: This 60-year-old female is here because of shortness of breath, weakness, and recurrent vaginal bleeding. It was a bit difficult to get a history from her but she says this is the third time she has been in the emergency department because of vaginal bleeding. She told me she been bleeding for a week but she is had an endometrial biopsy done last month. She had more bleeding today and became very short of breath with O2 saturations in the 70s at home. Her oxygen saturation improved with EMS. She was told to take norethindrone an increased dose but she says is not working. She said she has been in bed all day today. She thinks menopause was about 10 years ago or more. She has not been around anyone else has been sick. She has had decreased appetite for couple days. She has had both coronavirus vaccines. She has not used tobacco. She said she is on 2 L of oxygen at home. She was found emergency department today to be anemic with a hemoglobin of 6.9 compared to 8.9 recently. Patient said she did not want to go home until she got her problem cleared up. Review of Systems Constitutional Constitutional: Denies chills, Reports fatigue, Denies fever(s), Reports malaise, Reports poor appetite and Reports weakness Cardiovascular Cardiovascular: Denies chest pain, Denies rapid heart rate, Denies palpitations, Reports dyspnea and Reports dyspnea on exertion Respiratory Respiratory: Denies chest congestion, Denies cough, Reports dyspnea, Reports dyspnea on exertion and Denies wheezing Gastrointestinal Gastrointestinal: Denies heartburn, Denies diarrhea, Denies loose stools, Denies nausea and Denies vomiting Genitourinary Genitourinary: Reports abnormal vaginal bleeding, Denies difficulty voiding and Denies flank pain Neurologic Neurologic: Denies abnormal speech and Reports weakness Endocrine Endocrine: Reports fatigue and Denies palpitations Allergic/Immunologic Allergic/Immunologic: Denies wheezing [facility] Medical History (Updated 05/26/21 @ 20:28 by Hardy Daniel MD) Alcoholic gastritis COPD (chronic obstructive pulmonary disease) Former smoker History of alcoholism History of CHF (congestive heart failure) History of gastric ulcer Hypertension Hyponatremia Incarcerated inguinal hernia, unilateral Mood disorder with psychosis Neck pain on right side Surgical History EGD - MAC (07/04/16) S/P left inguinal hernia repair 01/21/19 Dr Odette Cormier, left Social History Smoking/Tobacco Use Status: Former Tobacco Use Quit Date: 01/13/15 Smoking risk assessment performed?: Yes Alcohol Intake: former Drug use: Never Substance use type: does not use Do you feel safe at home: Yes Do you feel safe in your relationship?: Yes Meds Allergies and Home Medications Allergies Allergy/AdvReac Type Severity Reaction Status Date / Time No Known Allergies Allergy Verified 05/26/21 18:14 Home Medications Medication Instructions Recorded Confirmed Type metoprolol tartrate 100 mg PO BID #60 tab 07/10/16 05/26/21 Rx albuterol sulfate 2.5 mg INHALATION BID 01/14/19 05/26/21 History albuterol sulfate [ProAir HFA] 1 - 2 puff INHALATION PRN PRN 01/14/19 05/26/21 History fluoxetine 20 mg PO DAILY 01/14/19 05/26/21 History lisinopril 20 mg PO HS 01/14/19 05/26/21 History spironolactone 50 mg PO DAILY 01/14/19 05/26/21 History acetaminophen 650 mg PO PRN PRN 01/21/19 05/26/21 History furosemide 40 mg PO DAILY 11/17/19 05/26/21 History multivitamin 1 tab DAILY 11/17/19 05/26/21 History amitriptyline 25 mg tablet 25 mg PO QHS tab 11/18/19 05/26/21 History Stiolto Respimat 2 puff INHALATION DAILY 09/15/20 05/26/21 History norethindrone acetate 5 mg tablet 5 mg PO .COMPLEX #45 tab 05/19/21 05/26/21 Rx Exam Const General: cooperative, no acute distress and anxious Nutritional Appearance: obese Orientation: alert and awake Neck Neck: normal visual inspection and no lymphadenopathy Thyroid: thyroid normal Resp Effort & Inspection: normal respiratory effort and able to speak in complete sentences Auscultation: no rales, no rhonchi and no wheezes Cardio Jugular venous pressure: no JVD Rate: regular rate Rhythm: regular rhythm Heart Sounds: S1 normal, S2 normal, no gallops and no murmurs GI Inspection: normal to inspection and obesity Palpation: no hepatosplenomegaly and nontender Extrem General: normal to inspection and no pedal edema Results Labs Result diagrams: 05/26/21 19:06 05/26/21 19:06 Labs: Laboratory Results - last 24 hr 05/26/21 05/26/21 05/26/21 19:06 19:06 19:40 WBC 13.15 H RBC 2.36 L Hgb 6.9 L* Hct 21.5 L MCV 91.1 MCH 29.2 MCHC 32.1 RDW 13.8 Plt Count 275 MPV 8.5 Immature Gran % 0.4 Neutrophils % 84.6 Lymphocytes % 6.5 Monocytes % 6.9 Eosinophils % 1.4 Basophils % 0.2 Nucleated RBC % 0 Absolute Neutrophils 11.12 H Absolute Lymphocytes 0.85 L Absolute Monocytes 0.91 H Absolute Eosinophils 0.18 Absolute Basophils 0.03 RBC Morphology See Below Polychromasia Present Sodium 128 L Potassium 4.2 Chloride 93 L Carbon Dioxide 31.4 Anion Gap 3.6 BUN 9 Creatinine 0.8 Estimated GFR/1.73 m2 >= 60.00 Glucose 106 Calcium 8.6 Magnesium 1.8 Total Bilirubin 0.3 AST 17 ALT 24 Alkaline Phosphatase 64 Troponin I < 0.05 Total Protein 6.1 L Albumin 3.1 L Crossmatch See Detail Last Vital Signs Temp 37.2 C 05/26/21 17:49 Pulse 95 H 05/26/21 17:49 Resp 26 H 05/26/21 18:15 BP 137/93 H 05/26/21 17:49 Pulse Ox 95 05/26/21 17:49
[2021-05-26 21:06] LABS: Source Nasal/Nares
[2021-05-26] MEDS: Metoprolol 50 MG TAB 100 MG PO (22:07)
[2021-05-26] MEDS: Acetaminophen 500 MG TAB PO (22:08)
[2021-05-26] MEDS: diphenhydrAMINE 25 MG CAP 50 MG PO (22:08)
[2021-05-26] MEDS: Lisinopril 20 MG TAB PO (22:08)
[2021-05-27] VITALS (13 sets, daily range): BP systolic 97–142; BP diastolic 66–77; PULSE 70–87; RESP 4–20; TEMP 36–36.6; O2SAT 91–99
[2021-05-27] MEDS: LORazepam 1 MG TAB PO
[2021-05-27 06:57] LABS: Abs Immature Grans 0.05 10^3/uL (0.0-0.06); Absolute Lymphocyte Count 1.03 10^3/uL (1.2-3.4); Absolute Monocyte Count 0.73 10^3/uL (0.1-0.8); Basophils % 0.6; Eosinophils % 3.7; HCT 23.1 % (36.0-46.0); HGB 7.5 g/dL (11.2-15.7); Immature Grans % 0.5; Lymphocytes % 9.5; MCH 29.5 pg (27.0-33.0); MCHC 32.5 % (32.0-36.0); MCV 90.9 fL (80-95); MPV 8.6 fL (8.0-11.0); Monocytes % 6.7; Nucleated RBC 0 %; Platelet Count 236 10^3/uL (130-400); RBC 2.54 10^6/uL (3.93-5.22); RDW 13.7 % (11.7-14.6); RDW-SD 46.1 fL; WBC 10.84 10^3/uL (4.4-10.8)
[2021-05-27 07:06] LABS: Absolute Basophil Count 0.07 10^3/uL (0.0-0.2); Absolute Neutrophil Count 8.56 10^3/uL (1.2-6.7)
[2021-05-27 07:39] LABS: BUN 8 mg/dL (7-18); CREATININE 0.8 mg/dL (0.55-1.02); Calcium 8.2 mg/dL (8.5-10.1); Chloride 95 mmol/L (98-107); Glucose 96 mg/dL (74-106); Potassium 3.8 mmol/L (3.5-5.1); Sodium 130 mmol/L (136-145)
[2021-05-27] MEDS: Metoprolol 50 MG TAB 100 MG PO ×2 (08:18→19:59)
[2021-05-27] MEDS: Spironolactone 50 MG TAB PO (08:19)
[2021-05-27] MEDS: FLUoxetine 20 MG CAP PO (08:19)
--- NOTE | 2021-05-27 08:30 | GCONE_ITS ---
Date of service: 05/27/21 Time of Service: 08:30 Assessment and Plan Assessment and plan (1) Uterine mass: Status: Acute Assessment and plan: Patient has a known uterine mass consistent with uterine fibroids. She has had episodes of postmenopausal bleeding most recently significant. She had been previously scheduled for hysteroscopy with dilation and curettage for diagnosis. Endometrial sampling had been performed in the office was unsatisfactory. In the interval from the time of her sampling to current she had significant bleeding with a hemoglobin of 6.9. This caused exacerbation of her COPD and she is also known to have history of congestive heart failure. At this point my recommendation would be that she is not a surgical candidate in her current state. Efforts will be made to control her bleeding with medication which she has not proven to be compliant with at this point. She will take her norethindrone acetate, 10 mg twice daily. She is received 1 unit of packed red blood cells and a second unit has been ordered. Appreciate internal medicine input and optimizing her medical condition in hopes that she may be a candidate in the future for diagnostic procedure. She is not a surgical candidate here, arrangements will be made for follow-up with gynecology at a tertiary care center. (2) Postmenopausal bleeding: Status: Acute (3) Acute anemia: Status: Acute (4) Dyspnea on exertion: Status: Acute (5) History of CHF (congestive heart failure): Status: Resolved History of Present Illness History of Present Illness Chief Complaint: Vaginal bleeding, anemia, uterine fibroids Narrative: Patient is a 60-year-old female known to the women's wellness service who has a history of uterine fibroids. She had onset of postmenopausal bleeding and has been seen by Dr. Phan. Attempted endometrial sampling in the office was performed, however tissue was insufficient for diagnosis. She had been scheduled for hysteroscopy with dilation and curettage for diagnosis in the up coming week. Over the course of the past few days she has had increasing significantly heavy bleeding. She had been prescribed norethindrone acetate as an outpatient, though it is unclear as to how often she was truly taking her medication. She called last night with increasing bleeding. She was seen in the emergency department and evaluated found to have profound anemia with a hemoglobin of 6.9. She was admitted to the hospitalist service for this reason for transfusion and medical management. I have been asked for consultation and recommendations. Consults Consult date: 05/27/21 Requesting physician: Ashish Meneses Review of Systems All systems reviewed & are unremarkable except as noted in HPI and below Constitutional Constitutional: Reports body ache(s), Reports fatigue, Reports lethargy, Reports malaise, Reports poor appetite and Reports weakness Cardiovascular Cardiovascular: Denies chest pain, Denies chest pain at rest, Reports irregular heart rhythm, Reports palpitations, Reports dyspnea, Reports dyspnea on exertion and Reports orthopnea Respiratory Respiratory: Denies chest congestion, Denies cough, Reports dyspnea and Reports dyspnea on exertion Gastrointestinal Gastrointestinal: Denies abdominal pain, Denies belching, Denies change in stool character, Denies constipation, Denies diarrhea and Denies nausea Genitourinary Genitourinary: Reports as per HPI, Reports abnormal vaginal bleeding, Denies pelvic pain and Denies prolapse symptoms Neurologic Neurologic: Reports system reviewed and no additional complaints, except as documented and Reports weakness Endocrine Endocrine: Reports fatigue and Reports palpitations Hematologic/Lymphatic Hematologic/Lymphatic: Reports as per HPI [facility] Medical History Alcoholic gastritis COPD (chronic obstructive pulmonary disease) Former smoker History of alcoholism History of CHF (congestive heart failure) History of gastric ulcer Hypertension Hyponatremia Incarcerated inguinal hernia, unilateral Mood disorder with psychosis Neck pain on right side Surgical History EGD - MAC (07/04/16) S/P left inguinal hernia repair 01/21/19 Dr Odette Cormier, left Social History Smoking/Tobacco Use Status: Former Tobacco Use Quit Date: 01/13/15 Smoking risk assessment performed?: Yes Alcohol Intake: former Drug use: Never Substance use type: does not use Do you feel safe at home: Yes Do you feel safe in your relationship?: Yes Exam Narrative Exam Narrative: Patient was seen and examined this morning. Current activities and plan of care reviewed. She is anticipating that she has surgical procedure with hysteroscopy and dilation and curettage. We discussed over the course of approximately 30 minutes that her procedure would be for diagnosis and not curative and the most important thing at this point is to stabilize her hemoglobin, control her bleeding, and get her to the point that she is medically stable for surgical procedure. Const General: not healthy appearing, in distress (Shortness of breath) mild and ill appearing Nutritional Appearance: overweight Orientation: alert and oriented x3 Limitations: behavioral limitations Eyes General: appearance normal, both eyes and all related structures Neck Neck: normal visual inspection and supple Resp Effort & Inspection: not able to speak in complete sentences, labored and uses accessory muscles Cardio Rate: regular rate GI Inspection: normal to inspection, non-distended and visible herniation (Small umbilical hernia) Palpation: soft, not firm, no guarding and not rigid Skin General skin exam: dry skin and pallor Results Last Vital Signs Temp 97.7 F 05/27/21 07:40 Pulse 87 05/27/21 07:40 Resp 19 05/27/21 07:40 BP 123/77 05/27/21 07:40 Pulse Ox 91 L 05/27/21 07:40 Labs Result diagrams: 05/27/21 06:11 05/27/21 06:11 Labs: Laboratory Results - last 24 hr 05/26/21 05/26/21 05/26/21 19:06 19:06 19:40 WBC 13.15 H RBC 2.36 L Hgb 6.9 L* Hct 21.5 L MCV 91.1 MCH 29.2 MCHC 32.1 RDW 13.8 Plt Count 275 MPV 8.5 Immature Gran % 0.4 Neutrophils % 84.6 Lymphocytes % 6.5 Monocytes % 6.9 Eosinophils % 1.4 Basophils % 0.2 Nucleated RBC % 0 Absolute Neutrophils 11.12 H Absolute Lymphocytes 0.85 L Absolute Monocytes 0.91 H Absolute Eosinophils 0.18 Absolute Basophils 0.03 RBC Morphology See Below Polychromasia Present Sodium 128 L Potassium 4.2 Chloride 93 L Carbon Dioxide 31.4 Anion Gap 3.6 BUN 9 Creatinine 0.8 Estimated GFR/1.73 m2 >= 60.00 Glucose 106 Calcium 8.6 Magnesium 1.8 Total Bilirubin 0.3 AST 17 ALT 24 Alkaline Phosphatase 64 Troponin I < 0.05 Total Protein 6.1 L Albumin 3.1 L COVID-19 Source Patient ABO/Rh O Positive Antibody Screen NEGATIVE Crossmatch See Detail 05/26/21 05/27/21 05/27/21 21:03 06:11 06:11 WBC 10.84 H RBC 2.54 L Hgb 7.5 L Hct 23.1 L MCV 90.9 MCH 29.5 MCHC 32.5 RDW 13.7 Plt Count 236 MPV 8.6 Immature Gran % 0.5 Neutrophils % 79.0 Lymphocytes % 9.5 Monocytes % 6.7 Eosinophils % 3.7 Basophils % 0.6 Nucleated RBC % 0 Absolute Neutrophils 8.56 H Absolute Lymphocytes 1.03 L Absolute Monocytes 0.73 Absolute Eosinophils 0.40 Absolute Basophils 0.07 RBC Morphology Polychromasia Sodium 130 L Potassium 3.8 Chloride 95 L Carbon Dioxide 32.0 Anion Gap 3.0 BUN 8 Creatinine 0.8 Estimated GFR/1.73 m2 >= 60.00 Glucose 96 Calcium 8.2 L Magnesium Total Bilirubin AST ALT Alkaline Phosphatase Troponin I Total Protein Albumin COVID-19 Source Nasal/Nares Patient ABO/Rh Antibody Screen Crossmatch
--- NOTE | 2021-05-27 08:47 | INITIAL_ITS ---
- If Service Date Differs Date of service: 05/27/21 Time of Service: 08:48 Care Management Initial Assess REASON FOR HOSPITALIZATION:: post-menopausal bleeding PAST MEDICAL HISTORY/PAST SURGICAL HISTORY:: Medical History (Updated 05/26/21 @ 20:28 by Hardy Daniel MD). Alcoholic gastritis. COPD (chronic obstructive pulmonary disease). Former smoker. History of alcoholism. History of CHF (congestive heart failure). History of gastric ulcer. Hypertension. Hyponatremia. Incarcerated inguinal hernia, unilateral. Mood disorder with psychosis. Neck pain on right side. Surgical History . EGD - MAC (07/04/16). S/P left inguinal hernia repair. 01/21/19 Dr Odette Cormier, left PREVIOUS FUNCTIONAL STATUS/SOCIAL/FAMILY SUPPORTS:: Елена lives in a single family home with her Osmani and daughter Evonne in [place]. Osmani has 2 other children by a previous marriage. 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 She has COPD and emphysema (per patient) and uses home oxygen at 2L/min. Елена receives no additional community services and is independent with ADLs at baseline. She continues to drive, but rarely, she reported. CURRENT FUNCTIONAL STATUS:: Елена was sitting up in bed when CM met with her. She was polite and agreeable to answering questions. Елена shared that she has an appointmrent at [facility] for a D&C on 06/02/21. She informed that she does not believe she can wait that long however and hopes to have it done sooner. Per provider, the surgery is for diagnostic purposes only and will not likely be done at [facility]. This was explained to Елена, however in her conversation with CM, it is not clear that she understands that. The plan is to stabilize her medically with transfusions and to stop the bleeding. ADVANCE DIRECTIVES:: On file. Evonne [facility] Has patient been provided with info about the portal/API?: Yes Did the patient sign up for the portal?: No CODE STATUS:: Full Code INSURANCE COVERAGE / FINANCIAL ISSUES:: AARP Medicare Replacement CURRENT HOME/COMMUNITY SERVICES/EQUIPMENT:: Home oxygen through [facility] PRIMARY CARE PHYSICIAN:: Hardy Eagle POTENTIAL DISCHARGE NEEDS:: Follow up with PCP and plan of care PATIENT/FAMILY EDUCATION NEEDS:: Review of discharge instructions, medications, limitations, activity, Ask Me Three TRANSPORTATION:: via private vehicle with family PLAN:: Елена will likely be discharged home with no new services. She will follow up with her PCP and plan of care and transport with family. CM will assess and support identified discharge needs.
[2021-05-27 09:02] LABS: NT-proBNP 563 pg/mL (<300)
[2021-05-27 14:01] LABS: HCT 26.6 % (36.0-46.0); HGB 8.8 g/dL (11.2-15.7)
[2021-05-27 14:23] LABS: COVID-19 PCR Negative (Negative)
--- NOTE | 2021-05-27 16:06 | W.PM.PROGNOT ---
Date of Service Date of service: 05/27/21 Time of Service: 16:07 Assessment and Plan Assessment and plan (1) Post-menopausal bleeding: Start date: 05/27/21 Start time: 16:09 Status: Acute Assessment and plan: Gynecology was consulted met with patient, feel that she her needs would be best met at a tertiary center they are working on appt. She continues to have moderate to large amount of bleeding per patient. Hemoglobin 7.5 this am with repeat of 8.8 at 1350. Will repeat H/H in am, may need Transfusion and iron infusion in am. (2) Acute anemia: Start date: 05/27/21 Start time: 16:11 Status: Acute Assessment and plan: This anemia appears likely due to her postmenopausal bleeding. Transfused 1 unit PRBC. May need another unit in the morning along with iron infusion (3) Dyspnea: Start date: 05/27/21 Start time: 16:12 Status: Acute Assessment and plan: She has chronic lung disease and is on home oxygen. There is a component of anxiety here today as well as today at home. discussed with Dr. Meneses Subjective Subjective Patient reports: other Interval history since last seen: Patient sitting up in chair. On oxygen. states she had a large flow of output of blood. Will repeat labs in am. Gyno working on case as well. Exam Const General: cooperative, no acute distress and anxious Nutritional Appearance: obese Orientation: alert and awake Neck Neck: normal visual inspection and no lymphadenopathy Thyroid: thyroid normal Resp Effort & Inspection: normal respiratory effort and able to speak in complete sentences Auscultation: no rales, no rhonchi and no wheezes Cardio Jugular venous pressure: no JVD Rate: regular rate Rhythm: regular rhythm Heart Sounds: S1 normal, S2 normal, no gallops and no murmurs GI Inspection: normal to inspection and obesity Palpation: no hepatosplenomegaly and nontender Extrem General: normal to inspection and no pedal edema Objective Last Vital Signs Temp 36.6 C 05/27/21 15:46 Pulse 75 05/27/21 15:46 Resp 16 05/27/21 15:46 BP 109/73 05/27/21 11:48 Pulse Ox 95 05/27/21 15:46 Laboratory Results - last 24 hr 05/26/21 05/26/21 05/26/21 19:06 19:06 19:40 WBC 13.15 H RBC 2.36 L Hgb 6.9 L* Hct 21.5 L MCV 91.1 MCH 29.2 MCHC 32.1 RDW 13.8 Plt Count 275 MPV 8.5 Immature Gran % 0.4 Neutrophils % 84.6 Lymphocytes % 6.5 Monocytes % 6.9 Eosinophils % 1.4 Basophils % 0.2 Nucleated RBC % 0 Absolute Neutrophils 11.12 H Absolute Lymphocytes 0.85 L Absolute Monocytes 0.91 H Absolute Eosinophils 0.18 Absolute Basophils 0.03 RBC Morphology See Below Polychromasia Present Sodium 128 L Potassium 4.2 Chloride 93 L Carbon Dioxide 31.4 Anion Gap 3.6 BUN 9 Creatinine 0.8 Estimated GFR/1.73 m2 >= 60.00 Glucose 106 Calcium 8.6 Magnesium 1.8 Total Bilirubin 0.3 AST 17 ALT 24 Alkaline Phosphatase 64 Troponin I < 0.05 NT-Pro-B Natriuret Pep Total Protein 6.1 L Albumin 3.1 L COVID-19 Source SARS-CoV-2 (PCR) Patient ABO/Rh O Positive Antibody Screen NEGATIVE Crossmatch See Detail 05/26/21 05/27/21 05/27/21 21:03 06:11 06:11 WBC 10.84 H RBC 2.54 L Hgb 7.5 L Hct 23.1 L MCV 90.9 MCH 29.5 MCHC 32.5 RDW 13.7 Plt Count 236 MPV 8.6 Immature Gran % 0.5 Neutrophils % 79.0 Lymphocytes % 9.5 Monocytes % 6.7 Eosinophils % 3.7 Basophils % 0.6 Nucleated RBC % 0 Absolute Neutrophils 8.56 H Absolute Lymphocytes 1.03 L Absolute Monocytes 0.73 Absolute Eosinophils 0.40 Absolute Basophils 0.07 RBC Morphology Polychromasia Sodium 130 L Potassium 3.8 Chloride 95 L Carbon Dioxide 32.0 Anion Gap 3.0 BUN 8 Creatinine 0.8 Estimated GFR/1.73 m2 >= 60.00 Glucose 96 Calcium 8.2 L Magnesium Total Bilirubin AST ALT Alkaline Phosphatase Troponin I NT-Pro-B Natriuret Pep 563 H Total Protein Albumin COVID-19 Source Nasal/Nares SARS-CoV-2 (PCR) Negative Patient ABO/Rh Antibody Screen Crossmatch 05/27/21 13:50 WBC RBC Hgb 8.8 L Hct 26.6 L MCV MCH MCHC RDW Plt Count MPV Immature Gran % Neutrophils % Lymphocytes % Monocytes % Eosinophils % Basophils % Nucleated RBC % Absolute Neutrophils Absolute Lymphocytes Absolute Monocytes Absolute Eosinophils Absolute Basophils RBC Morphology Polychromasia Sodium Potassium Chloride Carbon Dioxide Anion Gap BUN Creatinine Estimated GFR/1.73 m2 Glucose Calcium Magnesium Total Bilirubin AST ALT Alkaline Phosphatase Troponin I NT-Pro-B Natriuret Pep Total Protein Albumin COVID-19 Source SARS-CoV-2 (PCR) Patient ABO/Rh Antibody Screen Crossmatch
[2021-05-27] MEDS: Norethindrone 5 MG TAB PO (17:27)
[2021-05-27] MEDS: Albuterol/Ipratropium 3 ML UPD VIAL UPD (17:45)
[2021-05-27] MEDS: Albuterol/Ipratropium 3 ML UPD VIAL IH (20:00)
[2021-05-27] MEDS: Lisinopril 20 MG TAB PO (21:48)
[2021-05-27] MEDS: Amitriptyline 25 MG TAB PO (21:48)
[2021-05-27] MEDS: LORazepam 0.5 MG TAB PO (21:48)
[2021-05-28 00:07] VITALS: BP 115/74; PULSE 79; RESP 20; TEMP 36.6; O2SAT 95
[2021-05-28] MEDS: Norethindrone 5 MG TAB PO ×2 (06:59→10:36)
[2021-05-28 07:39] VITALS: BP 116/62; PULSE 80; RESP 19; TEMP 36.8; O2SAT 99
[2021-05-28 07:43] LABS: HCT 26.1 % (36.0-46.0); HGB 8.5 g/dL (11.2-15.7); MCV 90.9 fL (80-95); RBC 2.87 10^6/uL (3.93-5.22); WBC 10.77 10^3/uL (4.4-10.8)
[2021-05-28 07:44] LABS: Absolute Basophil Count 0.06 10^3/uL (0.0-0.2); Absolute Eosinophil Count 0.52 10^3/uL (0.0-0.7); Absolute Lymphocyte Count 0.85 10^3/uL (1.2-3.4); Absolute Neutrophil Count 8.59 10^3/uL (1.2-6.7); Basophils % 0.6; Eosinophils % 4.8; Immature Grans % 0.4; Lymphocytes % 7.9; MCH 29.6 pg (27.0-33.0); MCHC 32.6 % (32.0-36.0); MPV 8.4 fL (8.0-11.0); Monocytes % 6.5; Neutrophils % 79.8; Platelet Count 282 10^3/uL (130-400); RDW 14.1 % (11.7-14.6)
[2021-05-28 07:50] LABS: Abs Immature Grans 0.09 10^3/uL (0.0-0.06)
[2021-05-28] MEDS: Spironolactone 50 MG TAB PO (08:31)
[2021-05-28] MEDS: Furosemide 40 MG TAB PO (08:31)
[2021-05-28] MEDS: Metoprolol 50 MG TAB 100 MG PO (08:32)
[2021-05-28] MEDS: FLUoxetine 20 MG CAP PO (08:32)
[2021-05-28] MEDS: Normal Saline Flush 10 ML SYR IVP (08:33)
[2021-05-28 08:54] VITALS: RESP 4; RESP 5
[2021-05-28] MEDS: Albuterol/Ipratropium 3 ML UPD VIAL IH ×2 (08:54→11:09)
--- NOTE | 2021-05-28 09:06 | W.PM.PROGNOT ---
Date of Service Date of service: 05/28/21 Time of Service: 09:07 Assessment and Plan Assessment and plan (1) Post-menopausal bleeding: Status: Acute Assessment and plan: Patient has Post menopausal bleeding which is controlled with progestational agents. Hgb is stable. From a video system repairer perspective, will need endometrial sampling via hysteroscopy D&C in the near future. Patient appears stable clinically for D/C home with outpatient follow up for scheduled procedure. If definitive therapy is warranted, may need procedure at a tertiary care facility. Discussed with hospitalist service who is in agreement. social services analyst involvement with medication compliance will be helpful. (2) Uterine mass: Status: Acute Assessment and plan: Suspect fibroids. Will need sampling to role out other pathology. (3) Abnormal vaginal bleeding: Status: Acute Subjective Subjective Patient reports: tolerating a regular diet; denies diarrhea, nausea and vomiting Interval history since last seen: Patient seen this AM. Less shortness of breath. Patient reports an episode of bleeding this AM with a bowel movement, though HGFB is stable and Vital are stable. Is taking Aygestin, 10 mg BID. Exam Eyes General: appearance normal, both eyes and all related structures Neck Neck: normal visual inspection Resp Effort & Inspection: normal respiratory effort Cardio Rate: regular rate Skin General skin exam: no pallor Extrem General: no clubbing, cyanosis or edema Objective Last Vital Signs Temp 98.2 F 05/28/21 07:39 Pulse 80 05/28/21 07:39 Resp 19 05/28/21 07:39 BP 116/62 05/28/21 07:39 Pulse Ox 99 05/28/21 07:39 Laboratory Results - last 24 hr 05/26/21 05/26/21 05/27/21 19:40 21:03 13:50 WBC RBC Hgb 8.8 L Hct 26.6 L MCV MCH MCHC RDW Plt Count MPV Immature Gran % Neutrophils % Lymphocytes % Monocytes % Eosinophils % Basophils % Absolute Neutrophils Absolute Lymphocytes Absolute Monocytes Absolute Eosinophils Absolute Basophils SARS-CoV-2 (PCR) Negative Patient ABO/Rh O Positive Antibody Screen NEGATIVE Crossmatch See Detail 05/28/21 07:20 WBC 10.77 RBC 2.87 L Hgb 8.5 L Hct 26.1 L MCV 90.9 MCH 29.6 MCHC 32.6 RDW 14.1 Plt Count 282 MPV 8.4 Immature Gran % 0.4 Neutrophils % 79.8 Lymphocytes % 7.9 Monocytes % 6.5 Eosinophils % 4.8 Basophils % 0.6 Absolute Neutrophils 8.59 H Absolute Lymphocytes 0.85 L Absolute Monocytes 0.70 Absolute Eosinophils 0.52 Absolute Basophils 0.06 SARS-CoV-2 (PCR) Patient ABO/Rh Antibody Screen Crossmatch
--- NOTE | 2021-05-28 10:49 | DSE_ITS ---
Date of service: 05/28/21 Time of Service: 10:49 DS: Diagnosis Discharge Diagnosis (1) Post-menopausal bleeding: Start date: 05/28/21 Start time: 10:50 Status: Acute Asessment and Plan: Patient seen by gynecology. She was suppose to be taking Aygestine 10 BID it was likely she was noncompliant given her hemoglobing on admission was 6.9 and she had profuse bleeding. She was scheduled for outpatient D&C this week. She was admitted transfused 1 unit PRBC and placed on 5 mg Aygestine po 6 hours. Per nursing she has only had spotting. Her H/H has been stable since receiving 1 unit. today hemoglobin is 8.5. Patient is highly anxious. Dr. Feliciano from Gynecology agrees to patient being discharged home as she is stable. She needs to take aygetine 10 mg BID. Will have services Nursing set up to monitor patient for bleeding, med management and symptoms. Will give anxiety medication Repeat CBC for Sunday D&C planned for with Dr. Moise (2) Anxiety: Start date: 05/28/21 Start time: 11:02 Status: Chronic Asessment and Plan: as above will write for ativan 1 mg po BID-TID prn, likely contributing to sx. (3) Uterine mass: Start date: 05/28/21 Start time: 11:03 Status: Acute Asessment and Plan: 05/18 u/s revealed large solid 9x8 cm mass either large uterine fibroid or parauterine mass. Further testing needed at [facility], will be set [facility] by [facility] (4) Abnormal vaginal bleeding: Start date: 05/28/21 Start time: 11:05 Status: Acute Asessment and Plan: as above discussed with Dr. Wu Discharge Plan Disposition Patient Disposition: HOME W/HOME HEALTH SERVICE Condition: Stable Discharge Details Reason For Visit: Anemia Admit Date/Time: 05/27/21 09:26 Admit Provider: Hardy Daniel Attending Provider: Hardy Daniel Primary Care Provider: [facility] Course Hospital Course: 60 y.o female with PMH of CHF, Alcoholism, HTN, Cardiomyopathy, PUD, ANNE MARIE, COPD oxygen dependent admitted to [facility] after labs revealed hemoglobin 6.9. She had been seen by gynecology as an outpatient and found to have uterine mass with bleeding she was initiated on Aygstimine as outpatient bid, but likely was noncompliant as she was bleeding and came in with hemoglobin 6.9. Hospitalist asked to admit, and gynecology was consulted. She was admitted to /s, she received 1 unit PRBC. Aygestin was ordered 5 mg po q 6 hours. Patient states to both myself and Dr. Celestin that she is having severe bleeding however per nursing she is only having spotting on her pads. Her hemoglobin is stable and has gone from 6.9 to 8.8 yesterday afternoon and 8.5 today. She likely is not bleeding heavy as she would require more transfusion. Per gynecology and hospitalist perspective she is stable for discharge. She will have outpatient D&C on . She needs to take her medication 10 mg BID for bleeding. Will have services nursing started to monitor patient taking medication, bleeding and for any issues. She is highly anxious which is likely her biggest concern about going home. Will give her anxiety medication, repeat cbc on Sunday and procedure with Dr. Moise on . [facility] will set up for further testing to be done at [facility] as she is not a candidate for hysteroscopy at this facility and will need to be done at tertiary center. Home Meds and New Rx's Prescriptions: New lorazepam [Ativan] 1 mg tablet 1 mg PO TID PRNQty: 20 RF: 0 Continued multivitamin Tablet 1 tab DAILY RF: 0 furosemide 40 mg tablet 40 mg PO DAILY RF: 0 amitriptyline 25 mg tablet 25 mg PO QHS RF: 0 norethindrone acetate 5 mg tablet 5 mg PO .COMPLEX Qty: 45 RF: 1 metoprolol tartrate 100 MG tablet 100 mg PO BID Qty: 60 RF: 1 Stiolto Respimat 2.5-2.5 mcg/actuation Mist 2 puff INHALATION DAILY RF: 0 ipratropium-albuterol 0.5 mg-3 mg(2.5 mg base)/3 mL Solution For Nebulization 3 ml INHALATION QID RF: 0 albuterol sulfate 2.5 mg /3 mL (0.083 %) Solution For Nebulization 2.5 mg Inhalation BID RF: 0 lisinopril 20 mg Tablet 20 mg PO HS RF: 0 albuterol sulfate [ProAir HFA] 90 mcg/actuation Hfa Aerosol Inhaler 1 - 2 puff Inhalation PRN PRNRF: 0 fluoxetine 20 mg Capsule 20 mg PO DAILY RF: 0 spironolactone 50 mg Tablet 50 mg PO DAILY RF: 0 acetaminophen 325 mg Tablet 650 mg PO PRN PRNRF: 0 Discharge Instructions Instructions: Norethindrone (By mouth), Abnormal (Dysfunctional) Uterine Bleeding (DC), Anxiety (DC), Dilation and Curettage (DC) Additional Instructions: Take Aygestin (Norethindrone) [address] Celestin Blood work to be done on Sunday Take Ativan 2-3 times daily as needed for anxiety You are scheduled with Dr. Louis to have a D&C on . Nothing to eat or drink after [place], [facility] will call you this week with the details. We will set up nursing to help you at home with medication administration, monitoring blood loss and taking lab work Follow up with [facility] as scheduled. Stand Alone Forms: Nursing Discharge Form Activity:: Activity as Tolerated Equipment/Supplies:: No Equipment Needed Diet:: Low Sodium Discharge Orders Discharge Orders: Discharge Order (Routine); Ordered 05/28/21 Ordered By: Sharon Russo DS: Summary Time Spent with Patient providing and/or coordinating discharge services: Less than 30 minutes Status at Discharge Functional status at discharge: independent ambulation Overall status at discharge: patient is back to baseline Mental Status: mental status grossly normal Speech and Movement: speech and movement normal Mood: congruent mood Affect: normal affect Exam Const General: cooperative, no acute distress and anxious Nutritional Appearance: obese Orientation: alert and awake Neck Neck: normal visual inspection and no lymphadenopathy Thyroid: thyroid normal Resp Effort & Inspection: normal respiratory effort and able to speak in complete sentences Auscultation: no rales, no rhonchi and no wheezes Cardio Jugular venous pressure: no JVD Rate: regular rate Rhythm: regular rhythm Heart Sounds: S1 normal, S2 normal, no gallops and no murmurs GI Inspection: normal to inspection and obesity Palpation: no hepatosplenomegaly and nontender Extrem General: normal to inspection and no pedal edema Psych Mental Status: mental status grossly normal Speech and Movement: speech and movement normal Mood: congruent mood Affect: normal affect DS: Data Vitals/I&O Vitals and I&O: Vital Signs Temperature 36.8 C 05/28/21 07:39 Temperature Source Tympanic 05/28/21 07:39 Pulse 80 05/28/21 07:39 Pulse Rhythm Regular 05/28/21 09:36 Pulse 91 H 05/26/21 21:01 Respiratory Rate 19 05/28/21 07:39 Respiratory Effort Short of Breath 05/28/21 09:36 Respiratory Depth Normal 05/28/21 09:36 Respiratory Pattern Normal 05/28/21 09:36 Blood Pressure 116/62 05/28/21 07:39 Blood Pressure Mean 113 05/26/21 21:01 Pulse Oximetry 99 05/28/21 07:39 Oxygen Delivery Method Room Air 05/28/21 07:39 Oxygen Flow Rate 0 05/28/21 07:39 Pain Level 0 05/28/21 07:39 Comment 05/27/21 15:30 Intake & Output 05/27/21 05/27/21 05/28/21 11:59 23:59 11:59 Intake Total 628 / 1418 790 / 1418 360 / 360 Output Total 200 / 700 500 / 700 950 / 950 Balance 428 / 718 290 / 718 -590 / -590 Intake: Oral 790 / 790 360 / 360 Blood Product 562 / 562 Rbc Leuko Reduced Unit 280 / 280 [id number] Rbc Leuko Reduced Unit 282 / 282 [id number] Other 66 / 66 Rbc Leuko Reduced Unit 30 / 30 [id number] Rbc Leuko Reduced Unit 36 / 36 [id number] Output: Urine 200 / 700 500 / 700 950 / 950 Other: Urine Color Yellow Pale Yellow Urine Appearance Clear Hematuria Clear Urine Odor None Normal Comment Void x1 in the bedside commode. RN unable to determine urine amount; pt. tossed toilet paper in the urine. Slight pink tinge to urine due to vaginal bleeding. There is blood in the urine. Stool Size Small Small Small Stool Characteristics Soft Soft Formed Brown Voiding Methods Bedside Commode Bedside Commode Diaper Data Completed and Pending Completed studies during hospitalization [Text1]: Exam(s) XR PORTABLE CHEST AP EXAM: XR PORTABLE CHEST AP CLINICAL HISTORY: shortness of breath, r/o acute disease. TECHNIQUE: 2D digital imaging was performed. COMPARISON: CR CHEST 2 VIEWS PA,LAT from 07/09/2016 FINDINGS: LUNGS: Clear. No pleural abnormality seen. HEART: Normal. MEDIASTINUM: Normal. OTHER FINDINGS: None. IMPRESSION: No acute pulmonary findings. Labs on day of discharge: Labs from last 24 hours 05/28/21 05/27/21 05/26/21 07:20 13:50 21:03 WBC 10.77 RBC 2.87 L Hgb 8.5 L 8.8 L Hct 26.1 L 26.6 L MCV 90.9 MCH 29.6 MCHC 32.6 RDW 14.1 Plt Count 282 MPV 8.4 Immature Gran % 0.4 Neutrophils % 79.8 Lymphocytes % 7.9 Monocytes % 6.5 Eosinophils % 4.8 Basophils % 0.6 Absolute Neutrophils 8.59 H Absolute Lymphocytes 0.85 L Absolute Monocytes 0.70 Absolute Eosinophils 0.52 Absolute Basophils 0.06 SARS-CoV-2 (PCR) Negative Crossmatch 05/26/21 19:40 WBC RBC Hgb Hct MCV MCH MCHC RDW Plt Count MPV Immature Gran % Neutrophils % Lymphocytes % Monocytes % Eosinophils % Basophils % Absolute Neutrophils Absolute Lymphocytes Absolute Monocytes Absolute Eosinophils Absolute Basophils SARS-CoV-2 (PCR) Crossmatch See Detail [facility] Medical History (Updated 05/28/21 @ 10:56 by Sharon Russo NP) Alcoholic gastritis COPD (chronic obstructive pulmonary disease) Former smoker History of alcoholism History of CHF (congestive heart failure) History of gastric ulcer Hypertension Hyponatremia Incarcerated inguinal hernia, unilateral Mood disorder with psychosis Neck pain on right side Surgical History EGD - MAC (07/04/16) S/P left inguinal hernia repair 01/21/19 Dr Odette Cormier, left Social History Smoking/Tobacco Use Status: Former Tobacco Use Quit Date: 01/13/15 Smoking risk assessment performed?: Yes Alcohol Intake: former Drug use: Never Substance use type: does not use Do you feel safe at home: Yes Do you feel safe in your relationship?: Yes
[2021-05-28] MEDS: LORazepam 0.5 MG TAB PO (11:07)
[2021-05-28 11:09] VITALS: RESP 1
[2021-05-28] MEDS: Tiotropium/Olodaterol 10 PUFF INHALER 2 PUFF IH (11:09)
--- NOTE | 2021-05-28 11:23 | PDOC.CMDIS ---
- If Service Date Differs Date of service: 05/28/21 Time of Service: 11:23 LACE Index Scoring Tool - Questions: Length of Stay (in days): 1 Acuity (Admit via E.D.?): Yes Comorbidities: Congestive Heart Failure, Chronic Pulmonary Disease, Any Tumor E.D. Visits: 3 - Answers: Total Score: 12 Risk of Readmission: High Risk Care Management Discharge Reason for Hospitalization: post-menopausal bleeding Discharge Plan: Елена will be discharged home with no new services. She will follow up with her PCP and plan of care and transport with family. She is cheduled for an outpatient diagnostic D&C on 06/02/21. Patient/Family Education Needs: Review of discharge instructions, medications, limitations, activity, Ask Me Three
--- NOTE | 2021-05-28 11:42 | PDOC.HHF2F ---
Home Health Certification Home Health Certification: 1. Encounter Date and Reason I certify that Deepthi Hernandez was seen by Sharon Russo on 05/28/21 and that I had a [id number] encounter with this patient that meets the physician face to face encounter requirements. 2. Clinical Findings Supporting Skilled Need and Homebound Status I certify that home health services are medically necessary, include either intermittent penitentiary and/or physical/speech therapy, and that this patient is homebound in that absences from the home require considerable and taxing effort and are infrequent or of short duration, or are attributable to the need to receive medical care. [X] (a) Attached documentation from encounter provides clinical findings supporting skilled need and homebound status (including what assistance patient requires to leave the home). The encounter with the patient was in whole, or in part, for the following medical condition, which is the primary reason for home health care: Anemia Assisted: Patient would benefit from nursing service to help with medication administration, monitoring blood loss, adl, easing anxiety with techniques, etc. 3. Certification and Authentication I certify that I composed the above information based on my clinical judgement relating to this patient's medical condition and, if applicable, clinical findings communicated to me by the NPP or inpatient physician who performed the Home Health Referral. All further orders will be obtained through ___[facility]____(Community Based Physician - PCP)
== END 2021-05-28 14:15 | disposition home health service (06) | DRG 760 ==
LOC: ER 20:57 → MS 21:19
PROVIDERS: Nurse Practitioner Family; Admitting Provider Family Medicine; Emergency Provider Physician Assistant; PCP Family Medicine; Visit Provider Family Medicine
DX: N95.0 Postmenopausal bleeding (principal); D62 Acute posthemorrhagic anemia; I42.9 Cardiomyopathy, unspecified; D25.9 Leiomyoma of uterus, unspecified; F41.9 Anxiety disorder, unspecified; J44.9 Chronic obstructive pulmonary disease, unspecified; F10.21 Alcohol dependence, in remission; I11.0 Hypertensive heart disease with heart failure; I50.9 Heart failure, unspecified; Z87.891 Personal history of nicotine dependence; Z87.11 Personal history of peptic ulcer disease; Z99.81 Dependence on supplemental oxygen; Z91.14 Patient's other noncompliance with medication regimen; Z20.822 Contact with and (suspected) exposure to COVID-19
CPT/HCPCS: 36415; 80048; 80053; 86850; 86900; 86901; 86920; 87635; 93005; 94640; 99285; 71045; 83735; 83880; 84484; 85014; 85018; 85025; 93010; 99219; 99232; 99238; J7620; P9016

== ENCOUNTER 2021-05-31 08:36 | Outpatient (CLI) | payer MEDICARE, SELFPAY ==
[2021-05-31 10:52] LABS: Source Nasal/Nares
[2021-05-31 12:33] LABS: Abs Immature Grans 0.06 10^3/uL (0.0-0.06); Absolute Basophil Count 0.05 10^3/uL (0.0-0.2); Absolute Eosinophil Count 0.22 10^3/uL (0.0-0.7); Absolute Lymphocyte Count 0.75 10^3/uL (1.2-3.4); Absolute Monocyte Count 0.82 10^3/uL (0.1-0.8); Absolute Neutrophil Count 7.58 10^3/uL (1.2-6.7); Basophils % 0.5; Eosinophils % 2.3; HCT 29.2 % (36.0-46.0); HGB 9.4 g/dL (11.2-15.7); Immature Grans % 0.6; Lymphocytes % 7.9; MCH 29.7 pg (27.0-33.0); MCHC 32.2 % (32.0-36.0); MCV 92.1 fL (80-95); MPV 8.6 fL (8.0-11.0); Monocytes % 8.6; Neutrophils % 80.1; Nucleated RBC 0 %; Platelet Count 333 10^3/uL (130-400); RBC 3.17 10^6/uL (3.93-5.22); RDW 13.8 % (11.7-14.6); RDW-SD 46.8 fL; WBC 9.48 10^3/uL (4.4-10.8)
[2021-05-31 17:36] LABS: COVID-19 PCR Negative (Negative)
== END 2021-05-31 08:37 | disposition home or self-care (01) ==
LOC: LBO 08:36
PROVIDERS: PCP Family Medicine; Visit Provider Obstetrics & Gynecology Gynecology
DX: N95.0 Postmenopausal bleeding (principal); Z20.822 Contact with and (suspected) exposure to COVID-19; Z01.818 Encounter for other preprocedural examination
CPT/HCPCS: 87635; 85025

== ENCOUNTER 2021-06-02 06:10 | Day surgery (SDC) | payer MEDICARE, SELFPAY ==
--- NOTE | 2021-06-01 21:47 | HPE_ITS ---
Date of service: 06/02/21 Time of Service: 07:15 Assessment and Plan Assessment and plan (1) Post-menopausal bleeding: Status: Acute (2) Uterine mass: Status: Acute (3) Chronic bronchitis with COPD (chronic obstructive pulmonary disease): Status: Acute (4) Preoperative exam for gynecologic surgery: Status: Acute Assessment and plan: Informed consent was obtained. Patient was counseled regarding the risk of puncture of uterus with subsequent bleeding and need for possible laparotomy;the risk of infection and injury to surrounding structures including bowel, bladder, and blood vessels. Her questions were answered. She was instructed to be n.p.o. after midnight. History of Present Illness History of Present Illness Chief Complaint: Postmenopausal bleeding Narrative: Pt is a 60yo postmenopausal female who presented to [facility] ED 04/17/21 with heavy uterine bleeding. CT showed a 9x8cm fibroid obscuring the uterine ES. Normal adnexa. H/H 12/37.4, Nl EKG. Attempt at EMBx on 05/19/21 was unsuccessful. Rx with Norethindrone q6hr She was scheduled for D&C/Hysteroscopy. 05/26/21. Admitted via ED with repeat episode of bleeding. Hbg 6.9 with heavy uterine bleeding. She was admitted, transfused 1 unit PRBC and placed on 5 mg Aygestin Acetate po 6 hours Review of Systems All systems reviewed & are unremarkable except as noted in HPI and below Cardiovascular Cardiovascular: Reports system reviewed and no additional complaints, except as documented and Reports dyspnea on exertion Respiratory Respiratory: Reports dyspnea on exertion and Reports wheezing Gastrointestinal Gastrointestinal: Denies abdominal pain Genitourinary Genitourinary: Reports abnormal vaginal bleeding (minimal at this time.) Musculoskeletal Musculoskeletal: Reports back pain and Reports myalgias Psychiatric Psychiatric: Reports anxiety Allergic/Immunologic Allergic/Immunologic: Reports wheezing [facility] Active Problem List Preoperative exam for gynecologic surgery (Acute) Anxiety (Chronic) Dyspnea (Acute) Post-menopausal bleeding (Acute) Uterine mass (Acute) Abnormal vaginal bleeding (Acute) Acute anemia (Acute) Postmenopausal bleeding (Acute) Dyspnea on exertion (Acute) S/P left inguinal hernia repair (Acute) Left inguinal hernia (Acute) Incarcerated inguinal hernia, unilateral (Acute) Small bowel obstruction (Acute) Dehydration (Acute) Hypertension (Chronic) Change in mental status (Acute) Paroxysmal SVT (supraventricular tachycardia) (Acute) Cardiomyopathy (Acute) PUD (peptic ulcer disease) (Acute) Iron deficiency anemia due to chronic blood loss (Acute) Chronic bronchitis with COPD (chronic obstructive pulmonary disease) (Acute) Alcohol abuse (Acute) Pneumonia (Acute) COPD (chronic obstructive pulmonary disease) (Chronic) Medical History Alcoholic gastritis Former smoker Hyponatremia Mood disorder with psychosis Neck pain on right side Surgical History EGD - MAC (07/04/16) S/P left inguinal hernia repair 01/21/19 Dr Odette Cormier, left Social History Smoking/Tobacco Use Status: Former Tobacco Use Quit Date: 01/13/15 Smoking risk assessment performed?: Yes Alcohol Intake: former Drug use: Never Substance use type: does not use Do you feel safe at home: Yes Do you feel safe in your relationship?: Yes Additional Social history: Unable to assess [employer] Allergies and Home Medications Allergies Allergy/AdvReac Type Severity Reaction Status Date / Time No Known Allergies Allergy Verified 05/31/21 12:12 Home Medications Medication Instructions Recorded Confirmed Type metoprolol tartrate 100 mg PO BID #60 tab 07/10/16 06/02/21 Rx albuterol sulfate 2.5 mg INHALATION BID 01/14/19 06/02/21 History albuterol sulfate [ProAir HFA] 1 - 2 puff INHALATION PRN PRN 01/14/19 06/02/21 History fluoxetine 20 mg PO DAILY 01/14/19 06/02/21 History lisinopril 20 mg PO HS 01/14/19 06/02/21 History spironolactone 50 mg PO DAILY 01/14/19 06/02/21 History acetaminophen 650 mg PO PRN PRN 01/21/19 06/02/21 History furosemide 40 mg PO DAILY 11/17/19 06/02/21 History multivitamin 1 tab DAILY 11/17/19 06/02/21 History amitriptyline 25 mg tablet 25 mg PO QHS tab 11/18/19 06/02/21 History Stiolto Respimat 2 puff INHALATION DAILY 09/15/20 06/02/21 History norethindrone acetate 5 mg tablet 5 mg PO .COMPLEX #45 tab 05/19/21 06/02/21 Rx ipratropium-albuterol 3 ml INHALATION QID 05/27/21 06/02/21 History lorazepam [Ativan] 1 mg PO TID PRN #20 tab 05/28/21 06/02/21 Rx Exam Narrative Exam Narrative: Pt reports no bleeding since previous admission. She continues to take her Progesterone as directed. Const General: cooperative and ill appearing Nutritional Appearance: overweight Orientation: alert, awake and oriented x3 Resp Effort & Inspection: audible wheezes Auscultation: wheezes Cardio Rate: regular rate Rhythm: regular rhythm GI Inspection: normal to inspection Palpation: no masses and tender General: deferred Skin General skin exam: no rashes or lesions noted Lesions: no lesions Rashes: no rashes Extrem General: normal to inspection and no clubbing, cyanosis or edema Psych Appearance: grossly normal Mental Status: mental status grossly normal Speech and Movement: speech and movement normal Mood: anxious mood Affect: normal affect Attitude: cooperative Thought Process: normal Thought Content: normal Insight: insight good Judgment: judgment good PAWSS Pt Consumed Any Amount of Alcohol Within the Last 30 days OR had positive KENDY Upon Admission: No
[2021-06-02 06:43] VITALS: BP 141/85; PULSE 76; RESP 24; TEMP 37.3; O2SAT 100
[2021-06-02] MEDS: Lactated Ringers 1,000 ML 125 ML IV (07:05)
--- NOTE | 2021-06-02 07:43 | ANES.PREOP_ITS ---
General Info Date of Service Date Performed: 06/02/21 Height: 5 ft Weight: 81.7 kg Body Mass Index (BMI): 35.2 Surgical Procedure: Operation Date: 06/02/21 07:40 Proposed Procedures Side Surgeon p Dilation & Curettage with Hysteroscopy Genna Phan MD Meds Allergies and Home Medications Allergies Allergy/AdvReac Type Severity Reaction Status Date / Time No Known Allergies Allergy Verified 05/31/21 12:12 Home Medication Medication Instructions Recorded metoprolol tartrate 100 mg PO BID #60 tab 07/10/16 albuterol sulfate 2.5 mg INHALATION BID 01/14/19 albuterol sulfate [ProAir HFA] 1 - 2 puff INHALATION PRN PRN 01/14/19 fluoxetine 20 mg PO DAILY 01/14/19 lisinopril 20 mg PO HS 01/14/19 spironolactone 50 mg PO DAILY 01/14/19 acetaminophen 650 mg PO PRN PRN 01/21/19 furosemide 40 mg PO DAILY 11/17/19 multivitamin 1 tab DAILY 11/17/19 amitriptyline 25 mg tablet 25 mg PO QHS tab 11/18/19 Stiolto Respimat 2 puff INHALATION DAILY 09/15/20 norethindrone acetate 5 mg tablet 5 mg PO .COMPLEX #45 tab 05/19/21 ipratropium-albuterol 3 ml INHALATION QID 05/27/21 lorazepam [Ativan] 1 mg PO TID PRN #20 tab 05/28/21 Current Visit Medications: Current Medications Generic Name Dose Route Start Last Admin Trade Name Freq PRN Reason Stop Dose Admin Ringer's Solution 1,000 mls @ 125 mls/hr 06/02/21 06:00 06/02/21 07:05 IV 06/14/21 23:59 125 mls/hr INFUSION ESDRAS Administration IV Miscellaneous Supplies 1 each 06/02/21 06:00 Iv Access IV 06/14/21 23:59 DIRECTED ESDRAS Sodium Chloride 0 ml 06/02/21 06:00 Normal Saline Flush 10 Ml Syr IV 06/14/21 23:59 PRN PRN Sodium Chloride 0 ml 06/02/21 06:00 Normal Saline 10 Ml Vial IJ 06/14/21 23:59 DIRECTED PRN Sterile Water 0 ml 06/02/21 06:00 Water,Injection,Sterile 10 Ml Vial IJ 06/14/21 23:59 DIRECTED PRN [facility] Active Problems Active Problems: Problem Status Onset Code Preoperative exam for gynecologic surgery Z01.818 Anxiety F41.9 Dyspnea R06.00 Post-menopausal bleeding N95.0 Uterine mass N85.8 Abnormal vaginal bleeding N93.9 Acute anemia D64.9 Postmenopausal bleeding N95.0 Dyspnea on exertion R06.00 S/P left inguinal hernia repair Z98.890, Z87.19 Left inguinal hernia K40.90 Incarcerated inguinal hernia, unilateral K40.30 Small bowel obstruction K56.609 Dehydration E86.0 History of gastric ulcer Z87.19 History of alcoholism F10.21 History of CHF (congestive heart failure) Z86.79 Hypertension I10 Change in mental status R41.82 Paroxysmal SVT (supraventricular tachycardia) I47.1 Cardiomyopathy I42.9 PUD (peptic ulcer disease) K27.9 Iron deficiency anemia due to chronic blood loss D50.0 Chronic bronchitis with COPD (chronic obstructive pulmonary disease) J44.9 Alcohol abuse F10.10 Pneumonia J18.9 COPD (chronic obstructive pulmonary disease) J44.9 Medical History Active Problem List Preoperative exam for gynecologic surgery (Acute) Anxiety (Chronic) Dyspnea (Acute) Post-menopausal bleeding (Acute) Uterine mass (Acute) Abnormal vaginal bleeding (Acute) Acute anemia (Acute) Postmenopausal bleeding (Acute) Dyspnea on exertion (Acute) S/P left inguinal hernia repair (Acute) Left inguinal hernia (Acute) Incarcerated inguinal hernia, unilateral (Acute) Small bowel obstruction (Acute) Dehydration (Acute) Hypertension (Chronic) Change in mental status (Acute) Paroxysmal SVT (supraventricular tachycardia) (Acute) Cardiomyopathy (Acute) PUD (peptic ulcer disease) (Acute) Iron deficiency anemia due to chronic blood loss (Acute) Chronic bronchitis with COPD (chronic obstructive pulmonary disease) (Acute) Alcohol abuse (Acute) Pneumonia (Acute) COPD (chronic obstructive pulmonary disease) (Chronic) Medical History Alcoholic gastritis Former smoker Hyponatremia Mood disorder with psychosis Neck pain on right side Surgical History Surgical History EGD - MAC (07/04/16) S/P left inguinal hernia repair 01/21/19 Dr Odette Cormier, left Tobacco Smoking/Tobacco Use Status: Former Tobacco Use Alcohol Alcohol Intake: former Substance Use Substance use: Never Substance use type: does not use Vital Signs and Lab Results Vital Signs Most Recent Vital Signs in EMR: Most Recent Vital Signs Temp Pulse Resp BP Pulse Ox 37.3 C 76 24 141/85 H 100 06/02/21 06:43 06/02/21 06:43 06/02/21 06:43 06/02/21 06:43 06/02/21 06:43 Lab Results Blood Type / Crossmatch: Patient ABO/Rh O Positive 05/26/21 19:40 05/26/21 Antibody Screen NEGATIVE 05/26/21 19:40 05/26/21 Crossmatch See Detail 05/26/21 19:40 05/26/21 Complete Blood Count: White Blood Count 9.48 10^3/uL (4.4-10.8) 05/31/21 10:15 05/31/21 Red Blood Count 3.17 10^6/uL (3.93-5.22) L 05/31/21 10:15 05/31/21 Hemoglobin 9.4 g/dL (11.2-15.7) L 05/31/21 10:15 05/31/21 Hematocrit 29.2 % (36.0-46.0) L 05/31/21 10:15 05/31/21 Platelet Count 333 10^3/uL (130-400) 05/31/21 10:15 05/31/21 Complete Metabolic Panel: Sodium Level 130 mmol/L (136-145) L 05/27/21 06:11 05/27/21 Potassium Level 3.8 mmol/L (3.5-5.1) 05/27/21 06:11 05/27/21 Chloride Level 95 mmol/L (98-107) L 05/27/21 06:11 05/27/21 Carbon Dioxide Level 32.0 mmol/L (21.0-32.0) 05/27/21 06:11 05/27/21 Blood Urea Nitrogen 8 mg/dL (7-18) 05/27/21 06:11 05/27/21 Creatinine 0.8 mg/dL (0.55-1.02) 05/27/21 06:11 05/27/21 Estimated GFR/1.73 m2 >= 60.00 (mL/min/1.73m2) 05/27/21 06:11 05/27/21 Magnesium Level 1.8 mg/dL (1.8-2.4) 05/26/21 19:06 05/26/21 Calcium Level 8.2 mg/dL (8.5-10.1) L 05/27/21 06:11 05/27/21 Albumin 3.1 g/dL (3.4-5.0) L 05/26/21 19:06 05/26/21 Glucose Level 96 mg/dL (74-106) 05/27/21 06:11 05/27/21 Liver Function Panel: Alanine Aminotransferase (ALT/SGPT) 24 U/L (14-59) 05/26/21 19:06 05/26/21 Aspartate Amino Transf (AST/SGOT) 17 U/L (15-37) 05/26/21 19:06 05/26/21 Coagulation Panel: INR International Normalized Ratio 1.0 (0.9-1.1) 05/18/21 06:45 05/18/21 Prothrombin Time 10.2 sec (9.3-11.0) 05/18/21 06:45 05/18/21 Activated Partial Thromboplast Time 23.0 sec (21.0-27.5) 05/18/21 06:45 05/18/21 Cardiac Panel: Troponin I < 0.05 ng/mL (<0.06) 05/26/21 19:06 05/26/21 BQ-Nle-Y-Type Natriuretic Peptide 563 pg/mL (<300) H 05/27/21 06:11 05/27/21 Arterial Blood Gas: No Data to Display Venous Blood Gas: No Data to Display Pancreas Panel: No Data to Display Thyroid Panel: No Data to Display Infectious Disease: Coronavirus (COVID-19)(PCR) Negative (Negative) 05/31/21 09:42 05/31/21 Coronavirus 2019 Source Nasal/Nares 05/31/21 09:42 05/31/21 Blood Cultures: No Data to Display Toxicology Panel: No Data to Display Imaging and Studies Imaging and Studies EKG Summary: Conclusion Sinus rhythm...normal P axis, V-rate 60- 99 Low voltage, precordial leads...precordial leads <1.0mV. Sinus. No STEMI. I have reviewed and interpreted ECG and agree with software generated interpretation. 05/26/21 Echocardiogram Summary: Summary: 1. Left ventricle: The cavity size was normal. Wall thickness was increased in a pattern of mild LVH. Systolic function was normal. The estimated ejection fraction was 55-60%. Wall motion was normal; there were no regional wall motion abnormalities. 2. Right ventricle: The cavity size was normal. Systolic function was normal. 3. Mitral valve: There was mild regurgitation. 4. Pulmonary arteries: Pulmonary systolic pressure was increased, in the range of 40mm Hg to 45mm Hg. 5. Inferior vena cava: The vessel was patent and normal in size. The respirophasic diameter changes were in the normal range (greater than or equal to 50%), consistent with normal central venous pressure. 03/14/19 Anesthesia Assessment and Plan Anesthesia History Personal History: No History of Anesthesia Complications Family History: No Family History of Anesthesia Complications Exercise Tolerance Exercise Tolerance: Metabolic Equivalents<4 Pertinent Negatives Pertinent Negatives: No Major Cardiovascular Symptoms or Complaints Cardiac & Pulmonary Exam Cardiac Exam: Normal S1/S2 Heart Sounds Pulmonary Exam: Other Cardiac and Pulmonary Comment:: COPD with home oxygen dependence. Lungs diminished throughout. ?Breathing is good today? per patient. Used inhalers per usual routine. Implantable Cardiac Device Does patient have a Pacemaker or an ICD?: No Airway Exam Known Difficult Airway: No Mallampati Class: 3 Mouth Opening: Normal (> 3cm) Thyromental Distance: Greater than 3 cm Neck Range of Motion: Full ROM Neck Circumference: Normal Teeth Condition: Normal Dentition, Removable Dentures/Plates Upper and Removable Dentures/Plates Lower ASA Classification ASA Score: ASA 3 Emergency Case?: No NPO Status NPO Status: NPO Clears >2 hours, Solids >8 hours Anesthesia Plan Resuscitation Status: Full Code Anesthesia Technique: General Anesthesia Airway Planned: Natural Airway Monitors Used: Standard Monitors Preoperative Comments:: Plan minimal sedation, patient aware she will be kept mostly awake but comfortable to maintain respiratory status.
[2021-06-02 07:48] VITALS: BMI 35.2
[2021-06-02] MEDS: Bupivacaine 0.25% Pres-Free 30 ML VIAL (08:45)
--- NOTE | 2021-06-02 08:55 | ENDOMET_PTH ---
PATIENT: Deepthi Hernandez LOC: [facility] U#:[id number] AGE/SX: 60/F ROOM: RE06/02/[address]: Genna Phan : 1960 BED: DIS: 06/02/2021 SPEC #: [id number] RECD: 06/02/21 12:00 STATUS: LUCIA REKhloe #: [id number] BRYAN: 06/02/21 08:[address]: Genna Phan DEPT: Surgical Specimen RECD BY: Gemma Hooks ENTERED: 06/02/21 12:00 SP TYPE: Endomet OTHR DR: Hardy Eagle Tissues: 1 - ENDOMETRIUM BX/BETITO Procedures: GROSS AND MICRO LEVEL 4 Comments: [id number]
[2021-06-02 09:10] VITALS: BP 115/84; PULSE 80; RESP 22; TEMP 36.6; O2SAT 93
--- NOTE | 2021-06-02 09:17 | W.PM.OP ---
Date of service: 06/02/21 Time of Service: 09:17 Operative Note Operative Note DATE OF PROCEDURE: 06/02/21 PRE-OP DIAGNOSIS: Postmenopausal bleeding, uterine fibroid POST-OP DIAGNOSIS: same PROCEDURE: Cervical dilation uterine curettage with diagnostic hysteroscopy SURGEON: Genna Phan ANESTHESIA TYPE: MAC Refer to Anesthesia Record ESTIMATED BLOOD LOSS: 5 PATHOLOGY: other (Endometrial curettings to pathology) COMPLICATIONS: None Patient was transported to: PACU Patient's condition: stable Indications: 60-year-old postmenopausal female with new onset of postmenopausal bleeding approximately 3 weeks ago. Endometrial stripe is not visualized secondary to uterine fibroid obscuring uterine cavity. Findings: Uterus sounded to 10 cm. Hysteroscopic examination showed a narrow uterine cavity with fine almost gossamer-like lining. Bilateral tubal ostia not visualized secondary to obscuring endometrial tissue. No evidence of uterine masses or active bleeding. Small amount of endometrial curettings obtained. Procedure Description: Patient was taken to the operating room where she was placed in the dorsal supine position and monitored anesthesia was administered without difficulty. She was then placed in the dorsal lithotomy position in [facility] stirrups in a neurologically neutral position. She was then prepped, and draped in the usual sterile fashion. Surgical timeout was performed and bivalve speculum was placed into the vagina and the anterior lip of the cervix was infiltrated with 2 cc of 0.25% Marcaine without epinephrine. A single-tooth tenaculum was then used to grasp and hold the anterior lip of the cervix. A paracervical block was performed with 4 cc of quarter percent Marcaine injected into the 4 and 8:00 paracervical spaces respectively. The uterus was sounded to 10 cm. The cervix was then sequentially dilated to a maximum of 16 Rashid and a hysteroscope was introduced into the uterine cavity with normal saline as the distention medium with the above noted findings. The hysteroscope was removed and a serrated banjo curette was inserted into the uterine cavity and all 4 quadrants were sequentially curetted in the tissue passed off the operative field to be sent to pathology. The hysteroscope was then reinserted uterine cavity inspected and it was noted to be intact with no bleeding. Hysteroscope was removed and the tenaculum was removed from the anterior lip of the cervix and the site was noted to be hemostatic. All instruments removed from the patient's vagina. She was placed in the dorsal supine position, awakened and transported to recovery area in stable condition. All sponge lap and needle counts are correct x2.
--- NOTE | 2021-06-02 09:36 | W.ANESPOSTOP ---
Postoperative Evaluation Date, Time and Location Date Performed: 06/02/21 Time Performed: 09:12 Patient Location: Day Surgery Unit Vital Signs Most Recent Imported Vital Signs: Most Recent Vital Signs Temp Pulse Resp BP Pulse Ox 36.6 C 80 22 115/84 93 06/02/21 09:10 06/02/21 09:10 06/02/21 09:10 06/02/21 09:10 06/02/21 09:10 Pain Score Most Recent Pain Score: Most Recent Pain Score Pain Level 0 06/02/21 09:10 Assessment Mental Status: Awake (Alert & Oriented to Patient Baseline) Airway and Respiratory Function: Patent airway with normal (patient baseline) respiratory exam Cardiovascular Function: Hemodynamically Stable Hydration Status: Adequately Hydrated Nausea & Vomiting: No Nausea or Vomiting Pain: Pt. Denies Any Pain Peripheral Nerve Block: Patient did not receive a nerve block
[2021-06-02 09:38] VITALS: BP 118/81; PULSE 70; RESP 24; TEMP 36.6; O2SAT 92
[2021-06-02 09:57] VITALS: RESP 24; O2SAT 92
--- NOTE | 2021-06-02 17:05 | PDOC.DSDIS_ITS ---
Discharge Plan Disposition Patient Disposition: HOME Condition: Fair Discharge Details Reason For Visit: Hysteroscopy with D&C Attending Provider: Genna Phan Primary Care Provider: Hardy Eagle [place] Meds and New Rx's Prescriptions: No Action multivitamin Tablet 1 tab DAILY RF: 0 furosemide 40 mg tablet 40 mg PO DAILY RF: 0 amitriptyline 25 mg tablet 25 mg PO QHS RF: 0 lorazepam [Ativan] 1 mg tablet 1 mg PO TID PRN (Reason: anxiety) Qty: 20 RF: 0 norethindrone acetate 5 mg tablet 10 mg PO BID Qty: 90 RF: 1 metoprolol tartrate 100 MG tablet 100 mg PO BID Qty: 60 RF: 1 Stiolto Respimat 2.5-2.5 mcg/actuation Mist 2 puff INHALATION DAILY RF: 0 ipratropium-albuterol 0.5 mg-3 mg(2.5 mg base)/3 mL Solution For Nebulization 3 ml INHALATION QID RF: 0 albuterol sulfate 2.5 mg /3 mL (0.083 %) Solution For Nebulization 2.5 mg Inhalation BID RF: 0 lisinopril 20 mg Tablet 20 mg PO HS RF: 0 albuterol sulfate [ProAir HFA] 90 mcg/actuation Hfa Aerosol Inhaler 1 - 2 puff Inhalation PRN PRNRF: 0 fluoxetine 20 mg Capsule 20 mg PO DAILY RF: 0 spironolactone 50 mg Tablet 50 mg PO DAILY RF: 0 acetaminophen 325 mg Tablet 650 mg PO PRN PRNRF: 0 Discharge Instructions Additional Instructions: I will call the patient with pathology results when available. You can expect additional bleeding because of the procedure. Continue to take your norethindrone 10 mg twice a day. Stand Alone Forms: Anesthesia Discharge Inst., DSU Post Gynecology Surgery Activity:: Activity as Tolerated Diet:: As Tolerated Discharge Orders Discharge Orders: Discharge Order (Routine); Ordered 06/02/21 Ordered By: Genna Phan Discharge Data Discharge Date/Time-TO BE ENTERED AT DEPARTURE: 06/02/21 11:00 Discharge Comment: Pt d/c'd with daughter in personal vehicle. DS: Diagnosis Discharge Diagnosis (1) Post-menopausal bleeding: Status: Acute (2) Uterine mass: Status: Acute (3) Chronic bronchitis with COPD (chronic obstructive pulmonary disease): Status: Acute (4) Preoperative exam for gynecologic surgery: Status: Acute
== END 2021-06-02 11:00 | disposition home or self-care (01) ==
LOC: SUR 06:11
PROVIDERS: PCP Family Medicine; Visit Provider Obstetrics & Gynecology Gynecology
PROC: 0UDB8ZZ Extraction of Endometrium, Via Natural or Artificial Opening Endoscopic (ICD-10-PCS; CPT 58558; principal; 2021-06-02 07:30)
DX: D25.0 Submucous leiomyoma of uterus (principal); N95.0 Postmenopausal bleeding; N85.8 Other specified noninflammatory disorders of uterus; J44.9 Chronic obstructive pulmonary disease, unspecified
CPT/HCPCS: 58558; 36415; 86850; 86900; 86901; 88305; J2250

== ENCOUNTER 2021-06-24 19:13 | Outpatient (REF) | payer MEDICARE, SELFPAY ==
[2021-06-24 19:26] LABS: Iron 12 ug/dL (50-170); Total Iron Binding Capacity 496 ug/dL (250-450); Transferrin Sat 2 % (15-50)
[2021-06-24 19:27] LABS: Abs Immature Grans 0.03 10^3/uL (0.0-0.06); Absolute Basophil Count 0.07 10^3/uL (0.0-0.2); Absolute Eosinophil Count 0.16 10^3/uL (0.0-0.7); Absolute Lymphocyte Count 0.74 10^3/uL (1.2-3.4); Absolute Monocyte Count 1.17 10^3/uL (0.1-0.8); Absolute Neutrophil Count 6.76 10^3/uL (1.2-6.7); Basophils % 0.8; Eosinophils % 1.8; HCT 29.9 % (36.0-46.0); Immature Grans % 0.3; Lymphocytes % 8.3; MCH 25.7 pg (27.0-33.0); MCHC 30.1 % (32.0-36.0); MCV 85.4 fL (80-95); Monocytes % 13.1; Neutrophils % 75.7; Nucleated RBC 0 %; Platelet Count 405 10^3/uL (130-400); RDW 16.1 % (11.7-14.6); RDW-SD 50.8 fL; WBC 8.93 10^3/uL (4.4-10.8)
== END 2021-06-24 19:14 | disposition home or self-care (01) ==
LOC: NCHCN 19:13
PROVIDERS: PCP Family Medicine; Visit Provider Family Medicine
DX: D50.0 Iron deficiency anemia secondary to blood loss (chronic) (principal); J44.1 Chronic obstructive pulmonary disease with (acute) exacerbation
CPT/HCPCS: 83540; 83550; 85025

== ENCOUNTER 2021-07-13 00:15 | Outpatient (CLI) | payer MEDICARE, SELFPAY ==
--- NOTE | 2021-07-13 | DI.CTLCSR_ITS ---
Exam(s) CT CHEST LUNG CANCER SCREEN EXAM: CT CHEST LUNG CANCER SCREEN CLINICAL HISTORY: SCREENING FOR LUNG CA, FORMER SMOKER, Z87.891. TECHNIQUE: Imaging Protocol: Low Dose Technique CONTRAST MATERIAL: None COMPARISON: CR,XR XR PORTABLE CHEST AP from 05/26/2021 CR,XR XR PORTABLE CHEST AP from 05/26/2021 FINDINGS: CHEST: LUNGS: There are no ominous pulmonary nodules. There is thickening of the minor fissure on the right side, this exhibiting benign appearance. There is also some atelectasis in the superior lingular seg ment of the opposite-left lung. There are no ominous pulmonary nodules and there are no pleural effu sions. MEDIASTINUM: There is no obvious hilar nor mediastinal adenopathy. CARDIAC: Heart size is normal. There is no pericardial effusion.Caliber of the thoracic aorta is wit hin normal limits. OTHER: OSSEOUS: No significant osseous lesions.. IMPRESSION: 1. Benign-appearing findings in both lungs as described above. No ominous pulmonary nodules nor pleu ral effusions. 2. No intrathoracic adenopathy evident 3. Lung RADS Cat 2 - Benign Appearance / Behavior: Nodules with a very low likelihood of becoming a c linically active cancer due to size or lack of growth Lung-RADS 1.0 CATEGORIES: Category 0 - Prior chest CT exam(s) being located for comparison. Category 1 - Annual screening in 12 months. No nodules or definitely benign nodules. Category 2 - Annual screening in 12 months. Benign appearance. Nodules with low likelihood of becomin g active cancer. Category 3 - 6-month follow-up. Probably benign. Short-term follow-up suggested. Nodules with low lik elihood of becoming active cancer. Category 4A - 3-month follow-up and CT/PET if >8 mm in size. Suspicious finding. Findings which requi re additional testing. Category 4B - Findings which require additional testing and tissue sampling. Modifier S- Potentially clinically significant findings (non lung cancer) RADIATION DOSE DELIVERED: 71.13mGy.cm Total DLP 1.84mGy CTDIvol DATA REPOSITORY: All CT scans at this facility are submitted to the National Radiology Data Registry (NRDR) Dose Index Registry (DIR) with the [employer] (ACR). RADIATION OPTIMIZATION: All CT scans at this facility use at least one of these dose optimization te chniques: automated exposure control; mA and/or kV adjustment per patient size (includes targeted exa ms where dose is matched to clinical indication); or iterative reconstruction.
== END 2021-07-13 00:35 ==
PROVIDERS: PCP Family Medicine; Visit Provider Family Medicine
DX: Z87.891 Personal history of nicotine dependence (principal); Z12.2 Encounter for screening for malignant neoplasm of respiratory organs
CPT/HCPCS: 71271

== ENCOUNTER 2021-07-25 08:54 | Inpatient (IN) | payer MEDICARE, SELFPAY ==
[2021-07-25] VITALS (20 sets, daily range): BP systolic 117–159; BP diastolic 57–86; PULSE 74–106; RESP 1–26; TEMP 36.5–37; O2SAT 93–100
--- NOTE | 2021-07-25 | DI.US_ITS ---
APPROVED REPORT EXAM: Comprehensive 2D, Doppler, and color-flow Echocardiogram Patient Location: In-Patient Room/Bed: [address] [employer] Protector: Nataliya Kate RDCS (AE) Indications: CHF, COPD, SOB, HTN Other Information Study Quality: Fair. Technically limited study due to body habitus, inability to position patient. Conclusion Technically limited study Mild concentric left ventricular hypertrophy. Estimated ejection fraction is 55 to 60%. There are n o apparent segmental wall motion abnormalities Right ventricle is not well visualized, but may be mildly enlarged Normal left atrial size. The right atrium is not well visualized There is no structural or hemodynamically significant valvular disease identified Wall motion Left Ventricle The left ventricle is normal size. The left ventricular systolic function is normal. The left ventric ular ejection fraction is within the normal range. Mild concentric left ventricular hypertrophy. Jennifer onal wall motion is grossly normal. There is no ventricular septal defect visualized. LVEF is 55-60%. Right Ventricle Right ventricle is not well visualized but appears to be enlarged Right ventricular systolic function could not be assessed. Atria The left atrium size is normal. Right atrium is not well visualized The interatrial septum is intact with no evidence for an atrial septal defect. Aortic Valve The Aortic valve is sclerotic. Aortic valve is trileaflet. There is no aortic valvular stenosis. No a ortic regurgitation is present. Mitral Valve The mitral valve is normal in structure. No evidence of mitral valve stenosis. Trace mitral regurgita tion. Tricuspid Valve The tricuspid valve is normal in structure. There is no tricuspid valve stenosis. Trace tricuspid reg urgitation. Unable to assess PA pressure. Pulmonic Valve Pulmonic valve is not well visualized. There is no pulmonic valvular stenosis. There is no pulmonic v alvular regurgitation. Great Vessels The aortic root is normal in size. Ascending aorta is not well visualized. Aortic arch is not well vi sualized. IVC is normal in size and collapses >50% with inspiration. Pericardium There is no pericardial effusion. 2D Dimensions IVSD d PLAX 1.21 cm F: 0.6-1.0 LV Vol A2C d MOD 81.7 mL LVPW d PLAX 1.20 cm F: 0.6 - 1.0 LV Vol A4C d MOD 101.4 mL LVID d PLAX 4.00 cm F: 3.8 - 5.2 LV EF A4C MOD 55.5 % LVDs 2.85 cm F: 2.2 - 3.5 LV EF A2C MOD 56.2 % Ao Root d 2.87 cm F: 2.7 - 3.3 LV EF Biplane MOD 56.4 % RA Area A4C 13.21 cm2 SV 55.18 mL RA Vol/ BSA A4C s A-L 19.5 mL/m2 SV Index 30.70 mL/m2 LV EF Teichholz 54.9 % LVEF (Sinclair's) 56.37 % F: 54 - 74 LV Volume 76.17 mL F: 46 - 106 LV Volume Index 42.55 mL/m2 F: 29 - 61 LV Vol Biplane MOD 97.9 mL FS 28.05 % M-Mode TAPSE 1.67 cm (M/F) >1.7 LV Diastology MV E' medial 0.076 (>0.07 m/s) E/A Ratio 1.2 LV E/e MED 9.90 (<14) MV E Vmax 0.75 (0.4-1.3 m/s) MV E' lateral 0.121 (>0.1 m/s) MV A Vmax 0.65 (0.4-1.3 m/s) LV E/e LAT 6.20 (<14) MV E/A Ratio 1.12 MV E/E' medial 9.94 MV E/E' lateral 6.22 Aortic Valve LVOT Area 2.79 cm2 AoV Area Vmax 2.46 cm2 LVOT Vmax 1.43 m/s AoV Area/ BSA (Vmax) 1.37 cm2/m2 LVOT Mean Cassius. 0.82 m/s ERICH Mean Cassius. 2.10 cm2 LVOT Peak Grad 8.2 mmHg ERICH Mean Cassius. Index 1.17 cm2/m2 LVOT Mean Grad 3.4 mmHg LVOT VTI 0.245 m LVOT Diam s 1.85 cm AoV Vmax 1.62 m/s Velocity Ratio 0.88 AoV Mean Cassius. 1.09 m/s AoV Peak Grad 10.5 mmHg LVOT SV 68.31 mL AoV Mean Grad 5.5 mmHg AoV VTI 0.255 m AoV Area VTI 2.68 cm2 AoV Area/ BSA (VTI) 1.49 cm/m2 Mitral Valve MV DT 209 (160-240 msec) MV PHT 61 msec MV Area PHT 3.64 cm2 MV VTI 0.192 m MV Area VTI 3.57 (4.0-6.0 cm2) Pulmonary Valve PV Vmax 1.21 (0.5-1.5 m/s) RVOT Peak Gr. 4.29 mmHg PV Peak Grad 5.9 mmHg RVOT Mean Gr. 2.25 mmHg PV Mean Grad 3.3 mmHg RVOT VTI 0.170 m PV VTI 0.204 m RVOT Vmax 1.04 m/s
--- NOTE | 2021-07-25 09:00 | RT.EKG_ITS ---
APPROVED REPORT Exam: Resting ECG Reason for Exam: SOB Patient Location: E HR:80 bpm ECG Measurements Heart Rate 80 AXIS KS 195 P 75 QRSd 82 QRS 0 QT 343 T 57 QTc 396 Conclusion Sinus rhythm...normal P axis, V-rate 60- 99 Low voltage, precordial leads...precordial leads <1.0mV Physician: no stemi, no significant st elevtion or depression
--- NOTE | 2021-07-25 09:00 | DI.RAD_ITS ---
Exam(s) XR PORTABLE CHEST AP EXAM: XR PORTABLE CHEST AP CLINICAL HISTORY: SOB TECHNIQUE: 2D digital imaging was performed. COMPARISON: CR,XR XR PORTABLE CHEST AP from 05/26/[address] CHEST LUNG CANCER SCREEN from 07/13/2021 FINDINGS: LUNGS: Clear. No pleural abnormality seen. HEART: Normal. MEDIASTINUM: Normal. BONES: Scoliosis and degenerative changes. IMPRESSION: No acute pulmonary findings. DATA REPOSITORY: RADIATION DOSE DELIVERED:
--- NOTE | 2021-07-25 09:07 | W.ED.GENAD ---
Discharge Plan Discharge Details Chief Complaint: SOB Admit Date/Time: 07/25/21 11:39 Admit Provider: Laura Mars Attending Provider: Laura Mars Primary Care Provider: [facility] ED Provider: Joslyn Mathis Discharge Data Discharge Date/Time-TO BE ENTERED AT DEPARTURE: 07/25/21 13:00 Medical Decision Making Patient is a from 60-year-old female presents with chief complaint of shortness of breath. Patient reports that she began feeling short of breath over the past couple of days and progressively been increasing. States she is feeling profoundly weak. Is having difficulty with simple daily activities. Patient that has past medical history pertinent for anxiety, uterine mass, CHF, hypertension, SVT, cardiomyopathy, iron deficiency anemia, COPD, alcohol abuse. Patient is chronically on 2 L home O2, has not increased her home O2. Did have a recent Covid test which was negative. Patient is vaccinated for COVID-19. She denies any chest pain. Is not noted lower extremity edema or discomfort. No history of PE or DVT. Patient reports that she did run out of her Stiolto 1 month ago On exam, patient appears short of breath. She does have work of breathing. Patient is tachypneic. She is on 2 L at 98%. This is the baseline for the patient. She is speaking in fragmented sentences. She sounds quite tight, wheezing noted particularly on the right side with diminished breath throughout. No lower extremity edema, calves are soft and nontender. Patient is afebrile. Vital signs stable. Concern for potential COPD exacerbation given the wheezing on exam and will begin with DuoNeb and steroids. Patient is maintaining her oxygen well. Will obtain portable chest x-ray. Also considered COVID-19, PE, ACS, pneumonia or other infectious etiology. She also received recent infusion for her anemia which did increase the shortness of breath and does have a history of CHF throughout the considers this. Will obtain baseline labs to also include a D-dimer as well as BNP. CXR reviewed by radiologist: FINDINGS: LUNGS: Clear. No pleural abnormality seen. HEART: Normal. MEDIASTINUM: Normal. BONES: Scoliosis and degenerative changes. IMPRESSION: No acute pulmonary findings. Labs reviewed. Normal WBC. Hemoglobin low at 9.0 which is baseline for the patient. Platelet count within normal limits. He does have a D-dimer elevated at 96, will move forward with CTA to evaluate for potential PE. Patient has critically low sodium of 123, patient does have baseline low sodium in the high 120s to 130 but has been described historically. Magnesium is low at 1.5, will replenish here. Mild transaminitis with AST of 45, ALT of 88. BNP is very elevated at 1285. Troponin within normal limits. Covid testing pending. Reassessed the patient, she appears much calmer is able to speak in complete sentences at this time. She reports that she is feeling much improved. We did discuss her hyponatremia, hypomagnesemia and anemia. Again, the anemia appears to be at baseline likely is not causing her acute exacerbation of her shortness of breath. Patient will require admission for asthma hyponatremia which will also give opportunity for continued evaluation for SOB. FINDINGS: Pulmonary Arteries: No evidence of filling defect to suggest pulmonary emboli. Tracheobronchial tree: Patent where visualized. Mediastinum and Fiona: No dominant adenopathy or fluid collection. Pulmonary parenchyma: No consolidation or dominant measurable mass. Stable mild thickening right major fissure. Mild scarring medial lingula. [id number] centrilobular emphysema. Mild respiratory motion lung bases. Pleura: No effusion or pneumothorax. Heart: Mild left atrial enlargement.. Coronary artery calcifications are seen. Aorta: Motion at the aortic root. Thoracic aorta non-dilated. No aneurysm. No dissection. Mild atherosclerotic changes. Tortuosity at the thoraco abdominal junction. Upper abdomen: Unremarkable. Bones: Scoliosis and degenerative changes. IMPRESSION: No evidence of pulmonary embolism or other acute abnormality. Discussed findings with the patient. Plan to admit for the hyponatremia. Am not replenishing with any fluids as she is overloaded. Will give dose of Lasix. Discussed plan with paient and who are in agreement. Consulted with hospitalist who agrees to admission for SOB, CHF exacerbation and hyponatremia. HPI General Mode of arrival: wheelchair. Date/Time Provider Initiated Documentation: 07/25/21 08:58. Limitations to Documentation: no limitations. Information obtained by: patient, RN notes reviewed and old records reviewed. History of Present Illness 60 year old F presents to the emergency department with the chief complaint of SOB, described as moderate, Quality is described as other (patient denies any pain), and is localized to the chest. Patient reports no radiation. Patient started experiencing this day(s) and it has been constant (progressively worsening). Immobilization improves symptom(s), Movement worsens symptoms . Patient notes no other symptoms.. Patient did receive the following treatments prior to arrival, none Related Data Home Medications Medication Instructions Recorded Confirmed albuterol sulfate 2.5 mg INHALATION Q4H PRN PRN 01/14/19 07/26/21 albuterol sulfate [ProAir HFA] 1 - 2 puff INHALATION Q4H PRN PRN 01/14/19 07/26/21 fluoxetine 20 mg PO DAILY 01/14/19 07/25/21 lisinopril 20 mg PO HS 01/14/19 07/25/21 spironolactone 50 mg PO DAILY 01/14/19 07/25/21 acetaminophen 650 mg PO PRN PRN 01/21/19 07/25/21 furosemide 40 mg PO DAILY 11/17/19 07/25/21 multivitamin 1 tab DAILY 11/17/19 07/25/21 amitriptyline 25 mg tablet 25 mg PO QHS tab 11/18/19 07/25/21 Stiolto Respimat 2 puff INHALATION DAILY 09/15/20 07/25/21 norethindrone acetate 5 mg tablet 10 mg PO BID #120 tab 06/08/21 07/25/21 fluticasone propionate [Flovent 1 puff INHALATION BID 07/26/21 07/26/21 HFA] lorazepam 0.5 mg PO DAILY PRN PRN 07/26/21 07/26/21 metoprolol succinate 150 mg PO QPM 07/26/21 07/26/21 nystatin [Nystop] 1 applic TOPICAL DIRECTED 07/26/21 07/26/21 Previous Rx's Medication Instructions Recorded norethindrone acetate 5 mg tablet 10 mg PO BID #120 tab 06/08/21 Allergies Allergy/AdvReac Type Severity Reaction Status Date / Time No Known Allergies Allergy Verified 07/25/21 09:07 General MAYA: 2 Review of Systems Constitutional Constitutional: Reports as per HPI, Denies chills, Reports fatigue, Denies fever(s), Denies headache(s) and Reports lethargy ENT Ears, Nose, Mouth, and Throat: Denies dizziness and Denies headache(s) Cardiovascular Cardiovascular: Reports as per HPI, Denies chest pain, Denies leg edema (had LE edema after transfusion Sunday, has since resolved), Reports dyspnea and Reports dyspnea on exertion Respiratory Respiratory: Reports as per HPI, Denies chest congestion, Denies cough, Denies pain on inspiration, Denies pain with cough, Reports dyspnea, Reports dyspnea on exertion and Reports wheezing Gastrointestinal Gastrointestinal: Reports as per HPI, Denies abdominal pain, Denies diarrhea, Denies nausea and Denies vomiting Musculoskeletal Musculoskeletal: Reports as per HPI and Denies back pain Integumentary/Breasts Skin/Breast: Reports as per HPI and Denies rash Neurologic Neurologic: Reports as per HPI, Denies dizziness and Denies headache(s) Endocrine Endocrine: Reports fatigue Allergic/Immunologic Allergic/Immunologic: Reports wheezing PFSH All Active Problems (Updated 07/28/21 @ 15:44 by Laura Mars MD) Pulmonary hypertension (Acute) Respiratory failure with hypoxia (Acute) Discharge planning issues (Acute) DVT prophylaxis (Acute) Hypoxia (Chronic) (HFpEF) heart failure with preserved ejection fraction (Chronic) Acute exacerbation of chronic obstructive pulmonary disease (COPD) (Acute) Anxiety (Chronic) Dyspnea (Acute) Uterine mass (Acute) 07/01/2021 patient referred to [facility]. Plan is to have a uterine artery embolization consult. Acute anemia (Acute) Postmenopausal bleeding (Acute) Dyspnea on exertion (Acute) S/P left inguinal hernia repair (Acute) 01/21/19 Dr Odette Cormier, left Left inguinal hernia (Acute) Incarcerated inguinal hernia, unilateral (Acute) Small bowel obstruction (Acute) Dehydration (Acute) Hypertension (Chronic) Change in mental status (Acute) Paroxysmal SVT (supraventricular tachycardia) (Acute) Cardiomyopathy (Acute) PUD (peptic ulcer disease) (Acute) Iron deficiency anemia due to chronic blood loss (Chronic) Chronic bronchitis with COPD (chronic obstructive pulmonary disease) (Acute) Alcohol abuse (Acute) COPD (chronic obstructive pulmonary disease) (Chronic) Medical History (Updated 07/28/21 @ 15:44 by Laura Mars MD) Alcoholic gastritis Former smoker Hyponatremia Mood disorder with psychosis Neck pain on right side Pneumonia Post-menopausal bleeding Pulmonary hypertension Surgical History EGD - MAC (07/04/16) Social History Smoking/Tobacco Use Status: Former Tobacco Use Quit Date: 01/13/15 Smoking risk assessment performed?: Yes Alcohol Intake: former Drug use: Never Substance use type: does not use Do you feel safe at home: Yes Do you feel safe in your relationship?: Yes Additional [facility]: [facility] Ex[facility] Const General: cooperative, comfortable, well developed, in distress respiratory and ill appearing acutely Nutritional Appearance: well nourished and overweight Orientation: alert, awake and oriented x3 HENMT Head: normal to inspection Chest Chest: normal inspection of the chest, normal palpation of entire chest wall and no crepitus Resp Effort & Inspection: not able to speak in complete sentences, labored, respiratory distress, tachypneic and uses accessory muscles Auscultation: diminished lung sounds bilaterally throughout, no rales, no rhonchi and wheezes scattered wheezes Cardio Rate: regular rate Rhythm: regular rhythm Heart Sounds: S1 normal and S2 normal GI Inspection: normal to inspection, no edema and non-distended Palpation: soft, no hepatosplenomegaly, not firm, no guarding, not rigid and nontender Auscultation: normal bowel sounds Skin General skin exam: no rashes or lesions noted Trauma: no lacerations or abrasions Neuro General: patient alert, patient awake and patient oriented x3 Cognition: normal cognition Speech: speech normal Gait: normal gait Extrem General: normal to inspection, capillary refill normal, no pedal edema, no calf tenderness and normal gait Psych Appearance: grossly normal and well kempt Mental Status: mental status grossly normal Speech and Movement: speech and movement normal
[2021-07-25] MEDS: methylPREDNISolone SUCC 125 MG VIAL IVP (09:20)
[2021-07-25] MEDS: Albuterol/Ipratropium 3 ML UPD VIAL UPD ×5 (09:21→23:00)
[2021-07-25 09:29] LABS: Source Nasal/Nares
[2021-07-25 09:33] LABS: Abs Immature Grans 0.09 10^3/uL (0.0-0.06); Absolute Basophil Count 0.04 10^3/uL (0.0-0.2); Absolute Eosinophil Count 0.01 10^3/uL (0.0-0.7); Absolute Lymphocyte Count 0.59 10^3/uL (1.2-3.4); Absolute Monocyte Count 0.67 10^3/uL (0.1-0.8); Absolute Neutrophil Count 8.21 10^3/uL (1.2-6.7); Basophils % 0.4; Eosinophils % 0.1; HCT 30.2 % (36.0-46.0); Immature Grans % 0.9; Lymphocytes % 6.1; MCH 23.2 pg (27.0-33.0); MCHC 29.8 % (32.0-36.0); MCV 77.8 fL (80-95); MPV 8.5 fL (8.0-11.0); Neutrophils % 85.5; Nucleated RBC 0 %; Platelet Count 351 10^3/uL (130-400); RBC 3.88 10^6/uL (3.93-5.22); RDW 18.6 % (11.7-14.6); RDW-SD 51.9 fL; WBC 9.61 10^3/uL (4.4-10.8)
[2021-07-25 09:47] LABS: PTT Activated 23.4 sec (21.0-27.5); Prothrombin Time 9.9 sec (9.3-11.0)
--- NOTE | 2021-07-25 10:00 | DI.CT_ITS ---
Exam(s) CT CHEST PE CTA EXAM: CT CHEST PE CTA CLINICAL HISTORY: SOB, elevated d-dimer. TECHNIQUE: Imaging Protocol: Axial CT angiography was performed with multi-slice acquisition and mu lti-planar and/or 3D reconstructions. CONTRAST MATERIAL: Intravenous: Omnipaque 350 Contrast volume:73 ml COMPARISON: CT CT CHEST LUNG CANCER SCREEN from 07/13/2021 CR XR PORTABLE CHEST AP from 07/25/2021 FINDINGS: Pulmonary Arteries: No evidence of filling defect to suggest pulmonary emboli. Tracheobronchial tree: Patent where visualized. Mediastinum and Fiona: No dominant adenopathy or fluid collection. Pulmonary parenchyma: No consolidation or dominant measurable mass. Stable mild thickening right juan or fissure. Mild scarring medial lingula. [id number] centrilobular emphysema. Mild respirato ry motion lung bases. Pleura: No effusion or pneumothorax. Heart: Mild left atrial enlargement.. Coronary artery calcifications are seen. Aorta: Motion at the aortic root. Thoracic aorta non-dilated. No aneurysm. No dissection. Mild at herosclerotic changes. Tortuosity at the thoraco abdominal junction. Upper abdomen: Unremarkable. Bones: Scoliosis and degenerative changes. IMPRESSION: No evidence of pulmonary embolism or other acute abnormality.. RADIATION DOSE DELIVERED: 378.72mGy.cm Total DLP DATA REPOSITORY: All CT scans at this facility are submitted to the National Radiology Data Registry (NRDR) Dose Index Registry (DIR) with the [employer] (ACR). RADIATION OPTIMIZATION: All CT scans at this facility use at least one of these dose optimization te chniques: automated exposure control; mA and/or kV adjustment per patient size (includes targeted exa ms where dose is matched to clinical indication); or iterative reconstruction.
[2021-07-25 10:02] LABS: ALT 88 U/L (14-59); AST 45 U/L (15-37); Albumin 3.3 g/dL (3.4-5.0); Alkaline Phosphatase 71 U/L (46-116); BUN 7 mg/dL (7-18); Bilirubin, Total 0.2 mg/dL (0.2-1.0); CREATININE 0.9 mg/dL (0.55-1.02); Chloride 86 mmol/L (98-107); Glucose 167 mg/dL (74-106); Magnesium 1.5 mg/dL (1.8-2.4); NT-proBNP 1285 pg/mL (<300); Potassium 4.2 mmol/L (3.5-5.1); Total Protein 6.8 g/dL (6.4-8.2); Troponin I < 50 ng/L (<or=60)
[2021-07-25 10:04] LABS: Sodium 123 mmol/L (136-145)
[2021-07-25 10:07] LABS: D-Dimer 986 ng/mlFEU (<500)
[2021-07-25 10:09] LABS: COVID-19 PCR Negative (Negative)
[2021-07-25] MEDS: MAGNESIUM SULFATE 1 GM/100 ML BAG IVPB (10:24)
[2021-07-25] MEDS: Omnipaque 350 MG/ML 100 ML BTL IJ (10:38)
--- NOTE | 2021-07-25 11:44 | HPE_ITS ---
Date of service: 07/25/21 Assessment and Plan Assessment and plan (1) (HFpEF) heart failure with preserved ejection fraction: Status: Acute Assessment and plan: It appears that the patient got fluid overloaded from her iron infusion. I would continue IV diuresis, monitoring I/O's and daily weights. I think she might benefit from BiPAP overnight, which I just ordered. Her echo, done today, could not estimate PA pressures. (2) Acute exacerbation of chronic obstructive pulmonary disease (COPD): Status: Acute Assessment and plan: No evidence of bacterial infection and COVID-19 is negative. Obtain VBG and trial BiPAP. Treat with prednisone, scheduled and prn nebs; Continue stiolto. Consult pulmonology. (3) Hyponatremia: Assessment and plan: I suspect this is dilutional, but the patient was also on tammi-i as outpatient. Monitor as we are diuresing with Q6H BMPs. (4) Hypoxia: Status: Chronic Assessment and plan: The patient states she is normally on 2L of O2 by [place]. Will need exercise oximetry on d/c. (5) DVT prophylaxis: Status: Acute Assessment and plan: The patient does not have current vaginal bleeding. Will start Sc heparin (6) Discharge planning issues: Status: Acute Assessment and plan: Full code History of Present Illness History of Present Illness Chief Complaint: Shortness of breath Narrative: Ms Hernandez is a 60 year old female with PMHx of oxygen-dependent COPD, normally on 2L of O2 by NC, as well as pulmonary hypertension, essential hypertension on tammi-i, iron deficiency anemia, chronic hyponatremia, who received an iron infusion on Sunday (4 days ago) and presented to [facility] ED with progressively worsening shortness of breath since then. The patient describes noting that her legs were swollen that night and that it was hard to breathe, especially laying down. She took an extra water pill to help with the swelling in her legs, which resolved it, but the breathing did not get much better. She denies fevers, runny nose/sore throat, cough, chest pain. She has not had any contacts with anyone with COVID-19, is vaccinated against COVID-19. Here, she was found to require 2L of O2 by NC, which is her baseline, desaturating to 87% on RA, but was tachypneic. She feels better after receiving 2 runs of nebulizer treatments as well as a dose of methylprednisolone. Her sodium is 123, usually close to 130s. Her CXR and CT are negative for any acute abnormalit, including acute PE. Her pro-BNP is elevated. She tested negative for COVID-19. Hospitalist admission was requested. Review of Systems All systems reviewed & are unremarkable except as noted in HPI and below PFSH All Active Problems (Updated 07/25/21 @ 17:54 by Laura Mars MD) Discharge planning issues (Acute) DVT prophylaxis (Acute) Hypoxia (Chronic) (HFpEF) heart failure with preserved ejection fraction (Acute) Acute exacerbation of chronic obstructive pulmonary disease (COPD) (Acute) Anxiety (Chronic) Dyspnea (Acute) Uterine mass (Acute) 07/01/2021 patient referred to [facility] [place] [place]. Plan is to have a uterine artery embolization consult. Acute anemia (Acute) Postmenopausal bleeding (Acute) Dyspnea on exertion (Acute) S/P left inguinal hernia repair (Acute) 01/21/19 Dr Odette Cormier, left Left inguinal hernia (Acute) Incarcerated inguinal hernia, unilateral (Acute) Small bowel obstruction (Acute) Dehydration (Acute) Hypertension (Chronic) Change in mental status (Acute) Paroxysmal SVT (supraventricular tachycardia) (Acute) Cardiomyopathy (Acute) PUD (peptic ulcer disease) (Acute) Iron deficiency anemia due to chronic blood loss (Acute) Chronic bronchitis with COPD (chronic obstructive pulmonary disease) (Acute) Alcohol abuse (Acute) Pneumonia (Acute) COPD (chronic obstructive pulmonary disease) (Chronic) Medical History (Updated 07/25/21 @ 17:54 by Laura Mars MD) Alcoholic gastritis Former smoker Hyponatremia Mood disorder with psychosis Neck pain on right side Post-menopausal bleeding Pulmonary hypertension Surgical History EGD - MAC (07/04/16) Social History Smoking/Tobacco Use Status: Former Tobacco Use Quit Date: 01/13/15 Smoking risk assessment performed?: Yes Alcohol Intake: former Drug use: Never Substance use type: does not use Do you feel safe at home: Yes Do you feel safe in your relationship?: Yes Additional Social history: Unable to assess privatley Meds Allergies and Home Medications Allergies Allergy/AdvReac Type Severity Reaction Status Date / Time No Known Allergies Allergy Verified 07/25/21 09:07 Home Medications Medication Instructions Recorded Confirmed Type metoprolol tartrate 100 mg PO BID #60 tab 07/10/16 07/25/21 Rx albuterol sulfate 2.5 mg INHALATION BID 01/14/19 07/25/21 History albuterol sulfate [ProAir HFA] 1 - 2 puff INHALATION PRN PRN 01/14/19 07/25/21 History fluoxetine 20 mg PO DAILY 01/14/19 07/25/21 History lisinopril 20 mg PO HS 01/14/19 07/25/21 History spironolactone 50 mg PO DAILY 01/14/19 07/25/21 History acetaminophen 650 mg PO PRN PRN 01/21/19 07/25/21 History furosemide 40 mg PO DAILY 11/17/19 07/25/21 History multivitamin 1 tab DAILY 11/17/19 07/25/21 History amitriptyline 25 mg tablet 25 mg PO QHS tab 11/18/19 07/25/21 History Stiolto Respimat 2 puff INHALATION DAILY 09/15/20 07/25/21 History ipratropium-albuterol 3 ml INHALATION QID 05/27/21 07/25/21 History lorazepam 1 mg tablet 1 mg PO TID PRN #20 tab 06/02/21 07/25/21 Rx norethindrone acetate 5 mg tablet 10 mg PO BID #120 tab 06/08/21 07/25/21 Rx Exam Narrative Exam Narrative: General: Pleasant middle-aged female who is anxious, dyspneic/tachypenic, speaking in 4-5 word phrases, A&Ox3, on 2L of O2 by [place] Neurological: A&Ox3, no focal deficits Psychiatric: Anxious; appropriate speech pattern/content Skin: Visible skin intact HEENT: Atraumatic, normocephalic, EOMI, MMM, R-sided tongue hematoma (mild) from tongue bite, no submandibular or cervical lymphadenopathy, no goiter, ?JVD - difficult to truly assess given adipose tissue on the neck Cardiovascular: RRR, no m/r/g Lungs: Rales and rhonchi on expiration, tachypneic, dyspneic Gastrointestinal: soft, nontender, nondistended Genitourinary: deferred Extremities: no edema/clubbing/cyanosis of BLE's, 2+ pedal pulses B Results Imaging Additional studies: EKG: HR 80, NSR, no acute ischemia CXR: No acute pulmonary findings. CTA chest: No evidence of pulmonary embolism or other acute abnormality.. Labs Result diagrams: 07/25/21 09:20 07/25/21 16:20 Labs: Laboratory Results - last 24 hr 07/25/21 07/25/21 07/25/21 09:10 09:20 09:20 WBC 9.61 RBC 3.88 L Hgb 9.0 L Hct 30.2 L MCV 77.8 L MCH 23.2 L MCHC 29.8 L RDW 18.6 H Plt Count 351 MPV 8.5 Immature Gran % 0.9 Neutrophils % 85.5 Lymphocytes % 6.1 Monocytes % 7.0 Eosinophils % 0.1 Basophils % 0.4 Nucleated RBC % 0 Absolute Neutrophils 8.21 H Absolute Lymphocytes 0.59 L Absolute Monocytes 0.67 Absolute Eosinophils 0.01 Absolute Basophils 0.04 PT INR APTT D-Dimer Sodium 123 L* Potassium 4.2 Chloride 86 L Carbon Dioxide 34.0 H Anion Gap 3.0 BUN 7 Creatinine 0.9 Estimated GFR/1.73 m2 >= 60.00 Glucose 167 H Calcium 9.0 Magnesium 1.5 L Total Bilirubin 0.2 AST 45 H ALT 88 H Alkaline Phosphatase 71 Troponin I < 50 NT-Pro-B Natriuret Pep 1285 H Total Protein 6.8 Albumin 3.3 L COVID-19 Source Nasal/Nares SARS-CoV-2 (PCR) Negative 07/25/21 09:20 WBC RBC Hgb Hct MCV MCH MCHC RDW Plt Count MPV Immature Gran % Neutrophils % Lymphocytes % Monocytes % Eosinophils % Basophils % Nucleated RBC % Absolute Neutrophils Absolute Lymphocytes Absolute Monocytes Absolute Eosinophils Absolute Basophils PT 9.9 INR 1.0 APTT 23.4 D-Dimer 986 H Sodium Potassium Chloride Carbon Dioxide Anion Gap BUN Creatinine Estimated GFR/1.73 m2 Glucose Calcium Magnesium Total Bilirubin AST ALT Alkaline Phosphatase Troponin I NT-Pro-B Natriuret Pep Total Protein Albumin COVID-19 Source SARS-CoV-2 (PCR) Last Vital Signs Temp 36.9 C 07/25/21 09:03 Pulse 77 07/25/21 10:01 Resp 20 07/25/21 10:01 BP 152/74 H 07/25/21 10:01 Pulse Ox 99 07/25/21 10:01
[2021-07-25] MEDS: Furosemide 40 MG/4 ML VIAL IVP ×3 (12:03→18:39)
[2021-07-25] MEDS: MAGNESIUM SULFATE 2 GM/50 ML BAG IVPB (12:36)
[2021-07-25 12:45] LABS: Troponin I < 50 ng/L (<or=60)
[2021-07-25 12:46] LABS: Procalcitonin < 0.1 ng/mL
[2021-07-25] MEDS: Albuterol 2.5 MG/3 ML INH SOLN VIAL UPD (15:50)
[2021-07-25 16:49] LABS: Anion Gap 3.9 mmol/L (3-11); BUN 7 mg/dL (7-18); CO2 33.1 mmol/L (21.0-32.0); CREATININE 0.9 mg/dL (0.55-1.02); Calcium 9.1 mg/dL (8.5-10.1); Chloride 85 mmol/L (98-107); Glucose 158 mg/dL (74-106)
[2021-07-25 16:51] LABS: Sodium 122 mmol/L (136-145)
[2021-07-25 17:59] LABS: BE (Venous) 12 mmol/L (-2-3); HCO3 (Venous) 35 mmol/L (23-28); O2 Sat (Venous) 96 %; TCO2 (Venous) 32 mmol/L (24-29); pCO2 (Venous) 42 mmHg (41-51); pH (Venous) 7.52 (7.31-7.41); pO2 (Venous) 65 mmHg
[2021-07-25] MEDS: Metoprolol 50 MG TAB 100 MG PO (20:25)
[2021-07-25] MEDS: Heparin 5,000 UNITS/ML VIAL 5000 UNITS SC (20:29)
[2021-07-25] MEDS: LORazepam 1 MG TAB PO (20:35)
[2021-07-25] MEDS: Norethindrone 5 MG TAB 10 MG PO (20:37)
[2021-07-25 22:40] LABS: Sodium 123 mmol/L (136-145)
[2021-07-25] MEDS: Amitriptyline 25 MG TAB PO (22:56)
[2021-07-26] VITALS (9 sets, daily range): BP systolic 127–160; BP diastolic 55–94; PULSE 80–97; RESP 4–21; TEMP 36.5–37.9; O2SAT 92–96
[2021-07-26] MEDS: Heparin 5,000 UNITS/ML VIAL 5000 UNITS SC ×3 (01:30→18:14)
[2021-07-26] MEDS: Normal Saline Flush 10 ML SYR IVP ×2 (05:07→18:15)
[2021-07-26] MEDS: Albuterol/Ipratropium 3 ML UPD VIAL UPD (05:07)
[2021-07-26 07:25] LABS: Abs Immature Grans 0.15 10^3/uL (0.0-0.06); Absolute Basophil Count 0.02 10^3/uL (0.0-0.2); Absolute Monocyte Count 1.47 10^3/uL (0.1-0.8); Basophils % 0.1; HCT 31.2 % (36.0-46.0); HGB 9.7 g/dL (11.2-15.7); Immature Grans % 0.9; Lymphocytes % 6.2; MCHC 31.1 % (32.0-36.0); MPV 8.7 fL (8.0-11.0); Monocytes % 9.1; Neutrophils % 83.7; Nucleated RBC 0 %; Platelet Count 383 10^3/uL (130-400); RBC 4.05 10^6/uL (3.93-5.22); RDW 19.9 % (11.7-14.6); RDW-SD 51.7 fL; WBC 16.13 10^3/uL (4.4-10.8)
[2021-07-26 08:00] LABS: Anion Gap 4.7 mmol/L (3-11); BUN 9 mg/dL (7-18); CO2 34.3 mmol/L (21.0-32.0); Calcium 8.5 mg/dL (8.5-10.1); Chloride 83 mmol/L (98-107); Estimated GFR 56.18 (mL/min/1.73m2); Ferritin 230 ng/mL (8-252); Glucose 102 mg/dL (74-106); Magnesium 1.8 mg/dL (1.8-2.4); Potassium 3.6 mmol/L (3.5-5.1)
[2021-07-26 08:03] LABS: Sodium 122 mmol/L (136-145)
[2021-07-26] MEDS: Metoprolol 50 MG TAB 100 MG PO (08:23)
[2021-07-26] MEDS: Norethindrone 5 MG TAB 10 MG PO ×2 (08:23→19:37)
[2021-07-26] MEDS: Multivitamin TAB 1 TAB PO (08:24)
[2021-07-26] MEDS: Pantoprazole 40 MG TABCR PO (08:24)
[2021-07-26] MEDS: FLUoxetine 20 MG CAP PO (08:24)
[2021-07-26] MEDS: predniSONE 20 MG TAB 40 MG PO (08:24)
[2021-07-26] MEDS: Spironolactone 50 MG TAB PO (08:24)
--- NOTE | 2021-07-26 08:30 | RT.EKG_ITS ---
APPROVED REPORT Exam: Resting ECG Reason for Exam: SVT Patient Location: I HR:83 bpm ECG Measurements Heart Rate 83 AXIS IA 197 P 43 QRSd 86 QRS 1 QT 338 T 54 QTc 396 Conclusion Sinus rhythm...normal P axis, V-rate 60- 99
[2021-07-26] MEDS: Tiotropium/Olodaterol 10 PUFF INHALER 2 PUFF IH (09:43)
[2021-07-26] MEDS: Milk of Magnesia 30 ML CUP PO (10:04)
--- NOTE | 2021-07-26 10:57 | PUCON_ITS ---
General Date Of Service Date of service: 07/26/21 Time of Service: 08:45 Reason for Consult: COPD exacerbation Assessment and Plan Assessment and plan (1) Respiratory failure with hypoxia: Status: Acute Qualifiers: Chronicity: chronic Qualified Code(s): J96.11 - Chronic respiratory failure with hypoxia (2) Pulmonary hypertension: Status: Acute (3) Acute exacerbation of chronic obstructive pulmonary disease (COPD): Status: Acute Assessment and plan: This is a 60 yo female with COPD on 2L/min NC who is admitted for dyspnea found to be volume overloaded and in a COPD exacerbation. Her COPD exacerbation has iproved greatly with treatment thus far. Given her tachycardia, I have changed her inhaler and neb to levalbuterol. Stiolto is a good medication choice for her and we should continue this. She does still have some wheeze, which may be chronically present. Even though there is no pneumonia on imaging, treatment with an antibiotic in COPD exacerbation is indicated as patient have better outcomes so I will start azithromycin (QTc ok) as it also has anti-inflammatory properties. She is interested in receiving pulmonary care as an outpatient, so I will set her up with a routine appointment with me. COPD Exacerbation - prednisone 40mg for 5 days - azithromycin for 5 days - levalbuterol/ipratropium nebs bid and prn - levalbuterol HFA prn - I would recommend changing her home albuterol to levalbuterol formulations given her pSVT - will schedule outpatient follow up with me Chronic hypoxic respiratory failure - continue supplemental O2 for goal 88-92% Pulmonary hypertension, mixed group 2 and 3 - optimization of volume status - optimization of cardiac and pulmonary diseases History of Present Illness Narrative: This is a 60 yo female with COPD and HFpEF who presents with volume overload and a COPD exacerbation in the setting of receiving an iron infusion for her anemia. She had a chest CT that shows emphysema and has had PFT's last completed in 2019 which show severe airflow limitation with a diffusion deficit consistent with emphysematous COPD. She is maintained on Stiolto, Duonebs and albuterol. She is on 2L/min at home for her COPD and continues to need this degree of support. She was also diuresed and looks euvolemic on my assessment. She states she has been having more difficulty with her COPD in the last few mon ths and has never seen a coat operator insulator before. She can sometimes hear wheezing but over all is feeling improved since admission. Review of Systems All systems reviewed & are unremarkable except as noted in HPI and below PFSH All Active Problems (Updated 07/26/21 @ 11:17 by Chelsey Marrero MD) Pulmonary hypertension (Acute) Respiratory failure with hypoxia (Acute) Discharge planning issues (Acute) DVT prophylaxis (Acute) Hypoxia (Chronic) (HFpEF) heart failure with preserved ejection fraction (Acute) Acute exacerbation of chronic obstructive pulmonary disease (COPD) (Acute) Anxiety (Chronic) Dyspnea (Acute) Uterine mass (Acute) 07/01/2021 [place] [facility] [place] Plan is to have a uterine artery embolization consult. Acute anemia (Acute) Postmenopausal bleeding (Acute) Dyspnea on exertion (Acute) S/P left inguinal hernia repair (Acute) 01/21/19 Dr Odette Cormier, left Left inguinal hernia (Acute) Incarcerated inguinal hernia, unilateral (Acute) Small bowel obstruction (Acute) Dehydration (Acute) Hypertension (Chronic) Change in mental status (Acute) Paroxysmal SVT (supraventricular tachycardia) (Acute) Cardiomyopathy (Acute) PUD (peptic ulcer disease) (Acute) Iron deficiency anemia due to chronic blood loss (Acute) Chronic bronchitis with COPD (chronic obstructive pulmonary disease) (Acute) Alcohol abuse (Acute) COPD (chronic obstructive pulmonary disease) (Chronic) Medical History (Updated 07/26/21 @ 11:17 by Chelsey Marrero MD) Alcoholic gastritis Former smoker Hyponatremia Mood disorder with psychosis Neck pain on right side Pneumonia Post-menopausal bleeding Pulmonary hypertension Surgical History EGD - MAC (07/04/16) Social History Smoking/Tobacco Use Status: Former Tobacco Use Quit Date: 01/13/15 Smoking risk assessment performed?: Yes Alcohol Intake: former Drug use: Never Substance use type: does not use Do you feel safe at home: Yes Do you feel safe in your relationship?: Yes Additional Social history: Unable to assess privatley Visit Medication and Allergies Active Medications Generic Name Dose Route Start Last Admin Trade Name Freq PRN Reason Stop Dose Admin Acetaminophen 0 mg 07/25/21 11:37 Acetaminophen 325 Mg Tab PO Q4H PRN PRN Al Hydrox/Mg Hydrox/Simethicone 30 ml 07/25/21 11:42 Mylanta Suspension 30 Ml Cup PO Q2H PRN PRN Albuterol Sulfate 2.5 mg 07/25/21 11:37 07/25/21 15:50 Albuterol 2.5 Mg/3 Ml Inh Soln Vial UPD 2.5 mg Q2H PRN PRN Administration Albuterol Sulfate 2 puff 07/25/21 17:17 Albuterol Hfa 8 Gm 60 Puff Inh IH Q4H PRN PRN Albuterol/Ipratropium 3 ml 07/25/21 12:00 07/26/21 05:07 Albuterol/Ipratropium 3 Ml Upd Vial UPD 3 ml Q6H ESDRAS Administration Amitriptyline HCl 25 mg 07/25/21 22:00 07/25/21 22:56 Amitriptyline 25 Mg Tab PO 25 mg HS ESDRAS Administration Device 1 each 07/25/21 18:00 Inhaler, Assist Device MC DIRECTED [facility] Dimethicone/Zinc Oxide 0 gm 07/25/21 11:37 Adriana Protect Cream 142 Gm Tube TP PRN PRN Docusate Sodium 100 mg 07/25/21 11:37 Docusate Sodium 100 Mg Cap PO TID PRN PRN Heparin Sodium (Porcine) 5,000 units 07/25/21 18:00 07/26/21 10:04 Heparin 5,000 Units/Ml Vial SC 5,000 units Q8H ESDRAS Administration Sodium Chloride 500 mls @ 0 mls/hr 07/25/21 11:37 Saline 500ml Bag IV PRN PRN As Directed IV Miscellaneous Supplies 1 each 07/25/21 11:45 Iv Access IV DIRECTED [facility] Lorazepam 0.5 mg 07/25/21 17:39 Lorazepam 2 Mg/Ml Vial IVP Q6H PRN PRN Lorazepam 1 mg 07/26/21 07:59 Lorazepam 1 Mg Tab PO TID PRN PRN anxiety Magnesium Hydroxide 30 ml 07/25/21 11:37 07/26/21 10:04 Milk Of Magnesia 30 Ml Cup PO 30 ml DAILY PRN PRN Administration Metoprolol Tartrate 100 mg 07/25/21 20:00 07/26/21 08:23 Metoprolol 50 Mg Tab PO 100 mg BID ESDRAS Administration Metoprolol Tartrate 5 mg 07/26/21 08:26 Metoprolol 5 Mg/5 Ml Vial IVP Q6H PRN PRN Multivitamins 1 tab 07/26/21 08:30 07/26/21 08:24 Multivitamin Tab PO 1 tab DAILY ESDRAS Administration Norethindrone Acetate 10 mg 07/25/21 20:00 07/26/21 08:23 Norethindrone 5 Mg Tab PO 10 mg BID ESDRAS Administration Pantoprazole Sodium 40 mg 07/26/21 07:30 07/26/21 08:24 Pantoprazole 40 Mg Tabcr PO 40 mg DAILY@0730 ESDRAS Administration Prednisone 40 mg 07/26/21 08:30 07/26/21 08:24 Prednisone 20 Mg Tab PO 40 mg DAILY ESDRAS Administration Sodium Chloride 0 ml 07/25/21 11:37 07/26/21 05:07 Normal Saline Flush 10 Ml Syr IVP 10 ml PRN PRN Administration Spironolactone 50 mg 07/26/21 08:30 07/26/21 08:24 Spironolactone 50 Mg Tab PO 50 mg DAILY ESDRAS Administration Tiotropium [place]/Olodaterol 2 puff 07/26/21 08:30 07/26/21 09:43 Tiotropium/Olodaterol 10 Puff Inhaler IH 2 inh DAILY ESDRAS Administration Allergies No Known Allergies Allergy (Verified 07/25/21 09:07) Exam Const General: no acute distress Nutritional Appearance: obese [facility] Head: normocephalic Ears: external ears normal and no periauricular adenopathy General nose exam: nasal mucous membranes and turbinates normal Face and sinus: sinuses nontender Mouth: oropharynx normal and moist mucous membranes Teeth and gingiva: dentition normal Eyes General: appearance normal, both eyes and all related structures Pupils: PERRL Neck Neck: normal visual inspection and no lymphadenopathy Chest Chest: normal inspection of the chest Resp Effort & Inspection: normal respiratory effort Auscultation: no rales, no rhonchi and wheezes expiratory wheezes (expiratory squeeks bilateral lower lung camejo) Cardio Rate: tachycardic Rhythm: regular rhythm Heart Sounds: S1 normal, S2 normal and no murmurs Pulses: radial pulses present bilaterally GI Inspection: normal to inspection Palpation: soft Skin General skin exam: no rashes or lesions noted Neuro General: patient alert, patient awake and patient oriented x3 Extrem General: no clubbing, cyanosis or edema Psych Mental Status: mental status grossly normal Affect: normal affect Attitude: cooperative Results Last Vital Signs Temp 36.8 C 07/26/21 03:38 Pulse 96 H 07/26/21 08:01 Resp 20 07/26/21 03:38 BP 145/55 H 07/26/21 03:38 Pulse Ox 95 07/26/21 03:38 Labs Result diagrams: 07/26/21 07:13 07/26/21 07:13 Labs: Laboratory Results - last 24 hr 07/25/21 07/25/21 07/25/21 09:20 12:25 16:20 WBC RBC Hgb Hct MCV MCH MCHC RDW Plt Count MPV Immature Gran % Neutrophils % Lymphocytes % Monocytes % Eosinophils % Basophils % Nucleated RBC % Absolute Neutrophils Absolute Lymphocytes Absolute Monocytes Absolute Eosinophils Absolute Basophils VBG pH VBG pCO2 VBG pO2 VBG HCO3 VBG Total CO2 VBG O2 Saturation VBG Base Excess Sodium 122 L* Potassium 4.0 Chloride 85 L Carbon Dioxide 33.1 H Anion Gap 3.9 BUN 7 Creatinine 0.9 Estimated GFR/1.73 m2 >= 60.00 Glucose 158 H Calcium 9.1 Magnesium Ferritin Troponin I < 50 Procalcitonin < 0.1 07/25/21 07/25/21 07/26/21 17:50 22:05 07:13 WBC RBC Hgb Hct MCV MCH MCHC RDW Plt Count MPV Immature Gran % Neutrophils % Lymphocytes % Monocytes % Eosinophils % Basophils % Nucleated RBC % Absolute Neutrophils Absolute Lymphocytes Absolute Monocytes Absolute Eosinophils Absolute Basophils VBG pH 7.52 H VBG pCO2 42 VBG pO2 65 VBG HCO3 35 H VBG Total CO2 32 H VBG O2 Saturation 96 VBG Base Excess 12 H Sodium 123 L* 122 L* Potassium 3.6 Chloride 83 L Carbon Dioxide 34.3 H Anion Gap 4.7 BUN 9 Creatinine 1.0 Estimated GFR/1.73 m2 56.18 Glucose 102 D Calcium 8.5 Magnesium 1.8 Ferritin 230 Troponin I Procalcitonin 07/26/21 07:13 WBC 16.13 H D RBC 4.05 Hgb 9.7 L Hct 31.2 L MCV 77.0 L MCH 24.0 L MCHC 31.1 L RDW 19.9 H Plt Count 383 MPV 8.7 Immature Gran % 0.9 Neutrophils % 83.7 Lymphocytes % 6.2 Monocytes % 9.1 Eosinophils % 0.0 Basophils % 0.1 Nucleated RBC % 0 Absolute Neutrophils 13.50 H Absolute Lymphocytes 1.00 L Absolute Monocytes 1.47 H Absolute Eosinophils 0.00 Absolute Basophils 0.02 VBG pH VBG pCO2 VBG pO2 VBG HCO3 VBG Total CO2 VBG O2 Saturation VBG Base Excess Sodium Potassium Chloride Carbon Dioxide Anion Gap BUN Creatinine Estimated GFR/1.73 m2 Glucose Calcium Magnesium Ferritin Troponin I Procalcitonin
[2021-07-26] MEDS: Azithromycin 250 MG TAB PO (11:57)
[2021-07-26] MEDS: Acetaminophen 325 MG TAB PO (11:57)
--- NOTE | 2021-07-26 12:09 | INITIAL_ITS ---
- If Service Date Differs Date of service: 07/26/21 Time of Service: 12:09 Care Management Initial Assess REASON FOR HOSPITALIZATION:: COPD exacerbation w/hypoxia, CHF, hyponatremia PAST MEDICAL HISTORY/PAST SURGICAL HISTORY:: All Active Problems. Discharge planning issues (Acute). DVT prophylaxis (Acute). Hypoxia (Chronic). (HFpEF) heart failure with preserved ejection fraction (Acute). Acute exacerbation of chronic obstructive pulmonary disease (COPD) (Acute). Anxiety (Chronic). Dyspnea (Acute). Uterine mass (Acute). 07/01/2021 patient referred to [facility] [place] Plan is to have a uterine artery embolization consult. Acute anemia (Acute). Postmenopausal bleeding (Acute). Dyspnea on exertion (Acute). S/P left inguinal hernia repair (Acute). 01/21/19 Dr Odette Cormier, left. Left inguinal hernia (Acute). Incarcerated inguinal hernia, unilateral (Acute). Small bowel obstruction (Acute). Dehydration (Acute). Hypertension (Chronic). Change in mental status (Acute). Paroxysmal SVT (supraventricular tachycardia) (Acute). Cardiomyopathy (Acute). PUD (peptic ulcer disease) (Acute). Iron deficiency anemia due to chronic blood loss (Acute). Chronic bronchitis with COPD (chronic obstructive pulmonary disease) (Acute). Alcohol abuse (Acute). Pneumonia (Acute). COPD (chronic obstructive pulmonary disease) (Chronic). Medical History. Alcoholic gastritis. Former smoker. Hyponatremia. Mood disorder with psychosis. Neck pain on right side. Post-menopausal bleeding. Pulmonary hypertension. Surgical History. EGD - MAC (07/04/16) PREVIOUS FUNCTIONAL STATUS/SOCIAL/FAMILY SUPPORTS:: Елена lives in a single family home with her Osmani and daughter Evonne in [place]. Osmani has 2 other children by a previous marriage. 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 She has COPD and emphysema (per patient) and uses home oxygen at 2L/min. Елена receives no additional community services and is independent with ADLs at baseline. She continues to drive, but rarely, she reported. CURRENT FUNCTIONAL STATUS:: Елена was sitting up on her bed when CM met with her. She reported that she is feeling weak and very tired. She stated that she has not yet had Flovent, which she normally uses at home. She also asked that she be able to have a shower tomorrow if she is still inpatient. CM relayed this to her RN. She reported that she has been seen by Pulmonology today, and will follow up out patient. Per MD, she continues to require inpatient admission. CM will continue to follow. ADVANCE DIRECTIVES:: On file. Daughter, Evonne HCA. , Osmani, listed as alternate HCA. Has patient been provided with info about the portal/API?: Yes Did the patient sign up for the portal?: No CODE STATUS:: Full Code INSURANCE COVERAGE / FINANCIAL ISSUES:: [facility] MCR replacement CURRENT HOME/COMMUNITY SERVICES/EQUIPMENT:: Home oxygen through [facility] PRIMARY CARE PHYSICIAN:: Hardy Eagle POTENTIAL DISCHARGE NEEDS:: Follow up with PCP and plan of care PATIENT/FAMILY EDUCATION NEEDS:: Review of discharge instructions, medications, limitations, activity, Ask Me Three ANTICIPATED BARRIERS TO DISCHARGE:: None identified at this time. TRANSPORTATION:: via private vehicle with family PLAN:: Елена will likely be discharged home when medically cleared by MD. She will follow up with her PCP and plan of care and transport with family. CM will assess and support identified discharge needs.
[2021-07-26 12:24] LABS: Anion Gap 3.5 mmol/L (3-11); BUN 11 mg/dL (7-18); CO2 36.5 mmol/L (21.0-32.0); Calcium 8.5 mg/dL (8.5-10.1); Chloride 84 mmol/L (98-107); Estimated GFR 56.18 (mL/min/1.73m2); Glucose 115 mg/dL (74-106); Potassium 4.5 mmol/L (3.5-5.1)
[2021-07-26 12:27] LABS: Sodium 124 mmol/L (136-145)
--- NOTE | 2021-07-26 13:05 | W.PM.PROGNOT ---
Date of Service Date of service: 07/26/21 Time of Service: 13:05 Assessment and Plan Assessment and plan (1) Acute exacerbation of chronic obstructive pulmonary disease (COPD): Status: Acute Assessment and plan: Doing much better. Evaluated by Dr Marrero - given SVT, switched to levalbuterol and will be getting the ipratropium separately. Resume home fluticasone as well. No evidence of bacterial infection and COVID-19 is negative. BiPAP not indicated based on VBG. Continue prednisone, scheduled and prn nebs as above, stiolto, fluticasone. (2) (HFpEF) heart failure with preserved ejection fraction: Status: Chronic Assessment and plan: Currently euvolemic - did not receive furosemide today. Will likely resume home furosemide dose tomorrow. Control HR. (3) Paroxysmal SVT (supraventricular tachycardia): Status: Acute Assessment and plan: Increase metoprolol dose. Keep on tele. Written for prn IV lopressor. Electrophysiology referral and extended cardiac monitoring on d/c. (4) Hyponatremia: Assessment and plan: Improved. Ddx: dilutional, due to Antonio-i, SSRI, or all of the above. Hold antonio-i and SSRI. Euvolemic. Sodium is better. Recheck at 6 pm. (5) Hypoxia: Status: Chronic Assessment and plan: The patient states she is normally on 2L of O2 by NC. Will need exercise oximetry on d/c. (6) Iron deficiency anemia due to chronic blood loss: Status: Chronic Assessment and plan: Due to dysfunctional uterine bleeding. Plan on giving IV iron with lasix tomorrow. (7) DVT prophylaxis: Status: Acute Assessment and plan: Continue SC heparin. MOnitor for recurrent vaginal bleeding. (8) Discharge planning issues: Status: Acute Assessment and plan: Full code Continues to require hospitalization Discussed case with Dr Marrero. Subjective Subjective Interval history since last seen: Ms Hernandez states she feels wiped out today, but her breathing is much better. Cough is nonproductive. Has been feeling a little lightheaded all day. Denies chest pain, endorses palpitations both here and at home, which occur on daily basis, denies n/v. C/o constipation. Usually takes metamucil. Tongue hurts. On tele, has been in SVT, up to 150s-170s. Exam Narrative Exam Narrative: General: Pleasant elderly female who appears exhausted, A&Ox3, breathing looks much better than yesterday HEENT: EOMI, MMM Heart: RRR, no m/r/g Lungs: expiratory wheezing B Abdomen: soft, full, nontender Extremities: no edema BLEs Objective Last Vital Signs Temp 37.5 C 07/26/21 12:16 Pulse 89 07/26/21 11:17 Resp 21 07/26/21 11:17 BP 132/74 07/26/21 11:17 Pulse Ox 95 07/26/21 11:17 Laboratory Results - last 24 hr 07/25/21 07/25/21 07/25/21 16:20 17:50 22:05 WBC RBC Hgb Hct MCV MCH MCHC RDW Plt Count MPV Immature Gran % Neutrophils % Lymphocytes % Monocytes % Eosinophils % Basophils % Nucleated RBC % Absolute Neutrophils Absolute Lymphocytes Absolute Monocytes Absolute Eosinophils Absolute Basophils VBG pH 7.52 H VBG pCO2 42 VBG pO2 65 VBG HCO3 35 H VBG Total CO2 32 H VBG O2 Saturation 96 VBG Base Excess 12 H Sodium 122 L* 123 L* Potassium 4.0 Chloride 85 L Carbon Dioxide 33.1 H Anion Gap 3.9 BUN 7 Creatinine 0.9 Estimated GFR/1.73 m2 >= 60.00 Glucose 158 H Calcium 9.1 Magnesium Ferritin 07/26/21 07/26/21 07/26/21 07:13 07:13 12:08 WBC 16.13 H D RBC 4.05 Hgb 9.7 L Hct 31.2 L MCV 77.0 L MCH 24.0 L MCHC 31.1 L RDW 19.9 H Plt Count 383 MPV 8.7 Immature Gran % 0.9 Neutrophils % 83.7 Lymphocytes % 6.2 Monocytes % 9.1 Eosinophils % 0.0 Basophils % 0.1 Nucleated RBC % 0 Absolute Neutrophils 13.50 H Absolute Lymphocytes 1.00 L Absolute Monocytes 1.47 H Absolute Eosinophils 0.00 Absolute Basophils 0.02 VBG pH VBG pCO2 VBG pO2 VBG HCO3 VBG Total CO2 VBG O2 Saturation VBG Base Excess Sodium 122 L* 124 L Potassium 3.6 4.5 D Chloride 83 L 84 L Carbon Dioxide 34.3 H 36.5 H Anion Gap 4.7 3.5 BUN 9 11 Creatinine 1.0 1.0 Estimated GFR/1.73 m2 56.18 56.18 Glucose 102 D 115 H Calcium 8.5 8.5 Magnesium 1.8 Ferritin 230
--- NOTE | 2021-07-26 14:24 | CHAPLAIN ---
Deepthi was sitting at the edge of her bed when I visited. She told me that she's breathing better, but still struggling. She said she isn't motivated to do much. What's the point? I feel terrible, my isn't well. When I asked Елена what did when she was feeling well, she didn't identify anything. She said her daughter came to live with them due to finances. Deepthi was pleasant and talkative. I left when her SALES SUPPORT COORDINATOR and nurse arrived. I will continue to visit.
[2021-07-26 16:19] LABS: COVID-19 PCR Negative (Negative); Influenza A PCR Negative (Negative); Influenza B PCR Negative (Negative); RSV PCR Negative (Negative)
[2021-07-26 18:24] LABS: Sodium 117 mmol/L (136-145)
[2021-07-26] MEDS: Levalbuterol 1.25 MG/3 ML UPD VIAL UPD (19:29)
[2021-07-26] MEDS: Psyllium PKT 1 EACH PO (19:37)
[2021-07-26] MEDS: Mometasone 220 MCG 14 DOSE INHALER 2 PUFF IH (19:41)
[2021-07-26] MEDS: Ipratropium 0.5 MG/2.5 ML UPD VIAL 0.25 MG UPD (19:44)
[2021-07-26] MEDS: Metoprolol CR 100 MG TABCR 200 MG PO (22:01)
[2021-07-26] MEDS: Amitriptyline 25 MG TAB PO (22:01)
[2021-07-26] MEDS: LORazepam 1 MG TAB PO (22:05)
[2021-07-27] VITALS (12 sets, daily range): BP systolic 119–155; BP diastolic 74–97; PULSE 65–93; RESP 8–20; TEMP 36–37.3; O2SAT 94–97
[2021-07-27] MEDS: Heparin 5,000 UNITS/ML VIAL 5000 UNITS SC ×3 (02:38→17:34)
[2021-07-27 07:38] LABS: Abs Immature Grans 0.15 10^3/uL (0.0-0.06); Absolute Basophil Count 0.03 10^3/uL (0.0-0.2); Absolute Eosinophil Count 0.03 10^3/uL (0.0-0.7); Absolute Lymphocyte Count 1.55 10^3/uL (1.2-3.4); Absolute Monocyte Count 1.39 10^3/uL (0.1-0.8); Basophils % 0.2; Eosinophils % 0.2; HCT 31.7 % (36.0-46.0); HGB 9.7 g/dL (11.2-15.7); Lymphocytes % 10.8; MCH 23.7 pg (27.0-33.0); MCHC 30.6 % (32.0-36.0); MCV 77.3 fL (80-95); MPV 8.9 fL (8.0-11.0); Monocytes % 9.7; Neutrophils % 78.1; Nucleated RBC 0 %; Platelet Count 395 10^3/uL (130-400); RDW 20.1 % (11.7-14.6); RDW-SD 52.1 fL; WBC 14.36 10^3/uL (4.4-10.8)
[2021-07-27 07:42] LABS: Absolute Neutrophil Count 11.22 10^3/uL (1.2-6.7)
[2021-07-27] MEDS: Levalbuterol 1.25 MG/3 ML UPD VIAL UPD ×2 (07:46→20:01)
[2021-07-27] MEDS: Ipratropium 0.5 MG/2.5 ML UPD VIAL 0.25 MG UPD ×2 (07:47→20:00)
[2021-07-27] MEDS: Tiotropium/Olodaterol 10 PUFF INHALER 2 PUFF IH (07:48)
[2021-07-27 07:57] LABS: Anion Gap 0.3 mmol/L (3-11); BUN 11 mg/dL (7-18); CO2 35.7 mmol/L (21.0-32.0); CREATININE 0.8 mg/dL (0.55-1.02); Calcium 8.6 mg/dL (8.5-10.1); Chloride 85 mmol/L (98-107); Glucose 90 mg/dL (74-106); Magnesium 1.7 mg/dL (1.8-2.4); Potassium 4.4 mmol/L (3.5-5.1)
[2021-07-27] MEDS: Acetaminophen 325 MG TAB PO (07:58)
[2021-07-27 07:59] LABS: Sodium 121 mmol/L (136-145)
[2021-07-27] MEDS: Multivitamin TAB 1 TAB PO (07:59)
[2021-07-27] MEDS: Norethindrone 5 MG TAB 10 MG PO ×2 (07:59→19:59)
[2021-07-27] MEDS: Azithromycin 250 MG TAB PO (08:00)
[2021-07-27] MEDS: Pantoprazole 40 MG TABCR PO (08:00)
[2021-07-27] MEDS: Spironolactone 50 MG TAB PO (08:01)
[2021-07-27] MEDS: predniSONE 20 MG TAB 40 MG PO (08:02)
[2021-07-27] MEDS: Psyllium PKT 1 EACH PO ×2 (08:03→20:01)
[2021-07-27 08:11] LABS: Anisocytosis 2+; Diff Comment RBC Morph Reviewed; Hypochromasia 1+
[2021-07-27] MEDS: Furosemide 20 MG/2 ML VIAL IVP (10:03)
[2021-07-27] MEDS: Mometasone 220 MCG 14 DOSE INHALER 2 PUFF IH ×2 (10:04→19:57)
[2021-07-27] MEDS: MAGNESIUM SULFATE 2 GM/50 ML BAG IVPB (10:04)
[2021-07-27] MEDS: Normal Saline Flush 10 ML SYR IVP ×2 (10:07→15:29)
[2021-07-27 12:32] LABS: Sodium 121 mmol/L (136-145)
--- NOTE | 2021-07-27 14:50 | W.PM.PROGNOT ---
Date of Service Date of service: 07/27/21 Time of Service: 14:50 Assessment and Plan Assessment and plan (1) Acute exacerbation of chronic obstructive pulmonary disease (COPD): Status: Acute Assessment and plan: Doing much better. Continue prednisone, scheduled ipratropium/levalbuterol, prn levalbuterol, fluticasone, stiolto. (2) (HFpEF) heart failure with preserved ejection fraction: Status: Chronic Assessment and plan: Again fluid overloaded today. Increase IV lasix. Intensify fluid restriction - 1200 cc daily. (3) Paroxysmal SVT (supraventricular tachycardia): Status: Acute Assessment and plan: No recurrences last night on tele. Continue toprol XL 200 mg HS. Keep on tele. Written for prn IV lopressor. Electrophysiology referral and extended cardiac monitoring on d/c. Continue levalbuterol in place of albuterol. (4) Hyponatremia: Assessment and plan: Worse - given the fact that the patient was drinking a lot of water, fluid restriction will likely help. Ddx: dilutional/psychogenic polydypsia, due to Antonio-i, SSRI, SIADH. Hold antonio-i and SSRI. Continue monitoring Sodiums Q6Hrs with the tightened fluid restriction (1200 cc). Last sodium was 121. No neuro sx except, perhaps, lightheadedness. Recheck at 6 pm and midnight. (5) Hypoxia: Status: Chronic Assessment and plan: The patient states she is normally on 2L of O2 by NC. Will need exercise oximetry on d/c. (6) Iron deficiency anemia due to chronic blood loss: Status: Chronic Assessment and plan: Due to dysfunctional uterine bleeding. Plan on giving IV iron with lasix tomorrow morning as she is acting fluid overloaded today. (7) Constipation: Status: Acute Assessment and plan: Intensify bowel regimen. (8) DVT prophylaxis: Status: Acute Assessment and plan: Continue SC heparin. Monitor for recurrent vaginal bleeding. (9) Discharge planning issues: Status: Acute Assessment and plan: Full code Continues to require hospitalization Subjective Subjective Interval history since last seen: Ms Hernandez states that her breathing is better today. She requests ice chips. Nursing reports that she has been drinking a lot of water, and since then, fluid restriction was instituted. Reports constipation. Endorses feeling lightheaded a lot, but not right now. Denies chest pain, nausea. Exam Narrative Exam Narrative: General: Pleasant elderly female, very alert today A&Ox3, breathing better, speaking in full sentences HEENT: EOMI, MMM Heart: RRR, no m/r/g Lungs: improved expiratory wheezing B; crackles at B bases Abdomen: soft, full, nontender Extremities: trace edema BLEs Objective Last Vital Signs Temp 36.5 C 07/27/21 11:23 Pulse 76 07/27/21 11:23 Resp 18 07/27/21 11:23 BP 119/79 07/27/21 11:23 Pulse Ox 94 07/27/21 11:23 Laboratory Results - last 24 hr 07/26/21 07/26/21 07/27/21 15:30 18:04 07:15 WBC RBC Hgb Hct MCV MCH MCHC RDW Plt Count MPV Immature Gran % Neutrophils % Lymphocytes % Monocytes % Eosinophils % Basophils % Nucleated RBC % Absolute Neutrophils Absolute Lymphocytes Absolute Monocytes Absolute Eosinophils Absolute Basophils RBC Morphology Hypochromasia Anisocytosis Sodium 117 L* 121 L* Potassium 4.4 Chloride 85 L Carbon Dioxide 35.7 H Anion Gap 0.3 L BUN 11 Creatinine 0.8 Estimated GFR/1.73 m2 >= 60.00 Glucose 90 Calcium 8.6 Magnesium 1.7 L COVID-19 Source NASOPHARYX SARS-CoV-2 (PCR) Negative Influenza Type A (PCR) Negative Influenza Type B (PCR) Negative RSV (PCR) Negative 07/27/21 07/27/21 07:15 12:11 WBC 14.36 H RBC 4.10 Hgb 9.7 L Hct 31.7 L MCV 77.3 L MCH 23.7 L MCHC 30.6 L RDW 20.1 H Plt Count 395 MPV 8.9 Immature Gran % 1.0 Neutrophils % 78.1 Lymphocytes % 10.8 Monocytes % 9.7 Eosinophils % 0.2 Basophils % 0.2 Nucleated RBC % 0 Absolute Neutrophils 11.22 H Absolute Lymphocytes 1.55 Absolute Monocytes 1.39 H Absolute Eosinophils 0.03 Absolute Basophils 0.03 RBC Morphology See Below Hypochromasia 1+ Anisocytosis 2+ Sodium 121 L* Potassium Chloride Carbon Dioxide Anion Gap BUN Creatinine Estimated GFR/1.73 m2 Glucose Calcium Magnesium COVID-19 Source SARS-CoV-2 (PCR) Influenza Type A (PCR) Influenza Type B (PCR) RSV (PCR)
[2021-07-27] MEDS: Furosemide 40 MG/4 ML VIAL IVP (15:28)
[2021-07-27] MEDS: Docusate Sodium 100 MG CAP PO ×2 (15:28→19:59)
[2021-07-27] MEDS: Senna TAB 1 TAB PO (15:28)
[2021-07-27] MEDS: Bisacodyl 5 MG TABEC 10 MG PO (15:39)
--- NOTE | 2021-07-27 16:23 | CHAPLAIN ---
Елена was resting in bed when I visited. She told me has water in her lungs now. She also talked about having a large fibroid that, and she's schedule for procedure on at [facility] to shrink it. Елена hopes to be well enough to go to [facility] that day. She also is cataract surgery coming up and needs to have a hernia taken care of. It's one thing after another, she told me. We talked about taking things one day at a time, and how she can best be resilient. I will continue to visit.
[2021-07-27 18:33] LABS: Sodium 123 mmol/L (136-145)
--- NOTE | 2021-07-27 18:46 | CMPROGNOTE_ITS ---
- If Service Date Differs Date of service: 07/27/21 Time of Service: 18:46 Care Management Progress Note S/O: Deepthi was sitting up in her bed when CM met with her. She reported that she is still feeling very tired and weak, with no energy. She reported that she has trouble paying for some of her medications monthly, and that she has some outstanding hospital bills. CM discussed resources for her including patient assistance, and [facility] for insurance navigation. CM will send a referral to [facility] to assist her with insurance and support with prescriptions. CM will continue to follow. A: Deepthi is a 60 year old female admitted to [facility] on 07/25/21 with COPD exacerbation. P: Елена will likely be discharged home when medically cleared by MD. She will follow up with her PCP and plan of care and transport with family. CM will assess and support identified discharge needs.
[2021-07-27] MEDS: Metoprolol CR 100 MG TABCR 200 MG PO (21:14)
[2021-07-27] MEDS: LORazepam 1 MG TAB PO (21:14)
[2021-07-27] MEDS: Amitriptyline 25 MG TAB PO (21:14)
[2021-07-28] VITALS (10 sets, daily range): BP systolic 124–159; BP diastolic 72–92; PULSE 76–96; RESP 4–19; TEMP 37–37.4; O2SAT 94–96
[2021-07-28 00:33] LABS: Sodium 124 mmol/L (136-145)
[2021-07-28] MEDS: Heparin 5,000 UNITS/ML VIAL 5000 UNITS SC ×2 (01:23→18:02)
[2021-07-28 07:05] LABS: Abs Immature Grans 0.19 10^3/uL (0.0-0.06); Absolute Basophil Count 0.02 10^3/uL (0.0-0.2); Absolute Eosinophil Count 0.05 10^3/uL (0.0-0.7); Absolute Monocyte Count 1.43 10^3/uL (0.1-0.8); Basophils % 0.1; Eosinophils % 0.3; HCT 33.7 % (36.0-46.0); HGB 10.2 g/dL (11.2-15.7); Immature Grans % 1.2; Lymphocytes % 11.6; MCH 23.8 pg (27.0-33.0); MCHC 30.3 % (32.0-36.0); MCV 78.6 fL (80-95); Monocytes % 9.2; Neutrophils % 77.6; Nucleated RBC 0 %; Platelet Count 408 10^3/uL (130-400); RBC 4.29 10^6/uL (3.93-5.22); RDW 20.7 % (11.7-14.6); RDW-SD 56.5 fL; WBC 15.49 10^3/uL (4.4-10.8)
[2021-07-28 07:09] LABS: Absolute Neutrophil Count 12.02 10^3/uL (1.2-6.7)
[2021-07-28 07:39] LABS: Diff Comment RBC Morph Reviewed
[2021-07-28 07:41] LABS: Anion Gap 3.9 mmol/L (3-11); Anisocytosis 1+; BUN 14 mg/dL (7-18); CO2 34.1 mmol/L (21.0-32.0); CREATININE 0.8 mg/dL (0.55-1.02); Calcium 8.6 mg/dL (8.5-10.1); Chloride 86 mmol/L (98-107); Glucose 82 mg/dL (74-106); Hypochromasia 1+; Magnesium 2.1 mg/dL (1.8-2.4); Microcytosis 1+; Poikilocytes 1+; Polychromasia Present; Potassium 3.9 mmol/L (3.5-5.1)
[2021-07-28 07:43] LABS: Sodium 124 mmol/L (136-145)
[2021-07-28] MEDS: Docusate Sodium 100 MG CAP PO ×2 (07:50→19:50)
[2021-07-28] MEDS: Azithromycin 250 MG TAB PO (07:50)
[2021-07-28] MEDS: Norethindrone 5 MG TAB 10 MG PO ×2 (07:50→19:50)
[2021-07-28] MEDS: Spironolactone 50 MG TAB PO (07:51)
[2021-07-28] MEDS: predniSONE 20 MG TAB 40 MG PO (07:51)
[2021-07-28] MEDS: Levalbuterol 1.25 MG/3 ML UPD VIAL UPD ×3 (07:51→19:50)
[2021-07-28] MEDS: Pantoprazole 40 MG TABCR PO (07:51)
[2021-07-28] MEDS: Furosemide 40 MG/4 ML VIAL IVP ×2 (07:51→16:04)
[2021-07-28] MEDS: Multivitamin TAB 1 TAB PO (07:51)
[2021-07-28] MEDS: Ipratropium 0.5 MG/2.5 ML UPD VIAL 0.25 MG UPD ×2 (07:52→19:50)
[2021-07-28] MEDS: Acetaminophen 325 MG TAB PO ×2 (07:56→18:02)
[2021-07-28] MEDS: Psyllium PKT 1 EACH PO ×2 (07:56→19:50)
[2021-07-28] MEDS: Tiotropium/Olodaterol 10 PUFF INHALER 2 PUFF IH (09:07)
[2021-07-28] MEDS: Mometasone 220 MCG 14 DOSE INHALER 2 PUFF IH ×2 (09:08→19:51)
--- NOTE | 2021-07-28 09:50 | CMPROGNOTE_ITS ---
- If Service Date Differs Date of service: 07/28/21 Time of Service: 09:50 Care Management Progress Note S/O: Deepthi was sitting in bed when CM met with her. She reported that she is still feeling very tired and weak, but she feels that her breathing is better. She expressed concern regarding the cost of her medications, as we discussed yesterday. CM sent a referral to [facility] as well as [employer], and C moderate needs. Later, CM went back to have her sign the form for moderate needs, and she had a lready talked to [facility] and made an appointment for next week. She was very happy to have been connected with this community support during her inpatient stay. CM will continue to follow. A: Deepthi is a 60 year old female admitted to [facility] on 07/25/21 with COPD exacerbation. P: Елена will likely be discharged home when medically cleared by . She will follow up with her PCP and plan of care and transport with family. CM will assess and support identified discharge needs.
--- NOTE | 2021-07-28 12:39 | W.NUTRFU ---
Date of service: 07/28/21 Time of Service: 12:39 Nutrition Note NOTE: Weight is fairly stable. BMI is 33 kg/m2 c/w class 1 obesity. PO intake is good on heart healthy diet. No nutritional issues noted at this time. Will continue to follow. Time Spent in Nutritional Counseling and Treatment: 0
[2021-07-28 14:04] LABS: Sodium 122 mmol/L (136-145)
--- NOTE | 2021-07-28 15:34 | W.PM.PROGNOT ---
Date of Service Date of service: 07/28/21 Time of Service: 15:34 Assessment and Plan Assessment and plan (1) Acute exacerbation of chronic obstructive pulmonary disease (COPD): Status: Acute Assessment and plan: Doing much better. Continue prednisone, scheduled ipratropium/levalbuterol, prn levalbuterol, fluticasone, stiolto. (2) (HFpEF) heart failure with preserved ejection fraction: Status: Chronic Assessment and plan: Again fluid overloaded today. Continue IV lasix. Continue fluid restriction - 1200 cc daily. (3) Paroxysmal SVT (supraventricular tachycardia): Status: Acute Assessment and plan: very brief burst of SVT last night. Continue toprol XL 200 mg HS. Keep on tele. Written for prn IV lopressor. Electrophysiology referral and extended cardiac monitoring on d/c. Continue levalbuterol in place of albuterol. (4) Hyponatremia: Assessment and plan: Not improving consistently. Ddx: dilutional/psychogenic polydypsia, due to Antonio-i, SSRI, SIADH. Hold antonio-i and SSRI. Check urine sodium and osmolality. Continue monitoring Sodiums Q6Hrs with the tightened fluid restriction (1200 cc).No neuro sx. (5) Hypoxia: Status: Chronic Assessment and plan: The patient states she is normally on 2L of O2 by NC. Will need exercise oximetry on d/c. (6) Iron deficiency anemia due to chronic blood loss: Status: Chronic Assessment and plan: Due to dysfunctional uterine bleeding. Not needing IV iron today as her H/H is 10.2/33.7 (7) Constipation: Status: Resolved Assessment and plan: Continue bowel regimen. (8) DVT prophylaxis: Status: Acute Assessment and plan: Continue SC heparin. Monitor for recurrent vaginal bleeding. (9) Discharge planning issues: Status: Acute Assessment and plan: Full code Continues to require hospitalization Anticipate discharge home in 48 hrs. Subjective Subjective Interval history since last seen: Ms Hernandez feels better. She is not as dizzy. Denies chest pain, nausea. She remains on fluid restriction. Exam Narrative Exam Narrative: General: Pleasant elderly female, very alert, A&Ox3, no focal deficits, dyspneic for a brief period that she was not wearing her O2, but no dyspnea with O2 on. HEENT: EOMI, MMM Heart: RRR, no m/r/g Lungs: very quiet rales at B bases Abdomen: soft, full, nontender Extremities: no edema BLEs Objective Last Vital Signs Temp 37.4 C 07/28/21 09:10 Pulse 79 07/28/21 15:24 Resp 16 07/28/21 09:10 BP 146/87 H 07/28/21 09:10 Pulse Ox 96 07/28/21 09:10 Laboratory Results - last 24 hr 07/27/21 07/28/21 07/28/21 18:13 00:20 06:05 WBC RBC Hgb Hct MCV MCH MCHC RDW Plt Count MPV Immature Gran % Neutrophils % Lymphocytes % Monocytes % Eosinophils % Basophils % Nucleated RBC % Absolute Neutrophils Absolute Lymphocytes Absolute Monocytes Absolute Eosinophils Absolute Basophils RBC Morphology Polychromasia Hypochromasia Poikilocytosis Anisocytosis Microcytosis Sodium 123 L* 124 L 124 L Potassium 3.9 Chloride 86 L Carbon Dioxide 34.1 H Anion Gap 3.9 BUN 14 Creatinine 0.8 Estimated GFR/1.73 m2 >= 60.00 Glucose 82 Calcium 8.6 Magnesium 2.1 07/28/21 07/28/21 06:05 13:50 WBC 15.49 H RBC 4.29 Hgb 10.2 L Hct 33.7 L MCV 78.6 L MCH 23.8 L MCHC 30.3 L RDW 20.7 H Plt Count 408 H MPV 9.0 Immature Gran % 1.2 Neutrophils % 77.6 Lymphocytes % 11.6 Monocytes % 9.2 Eosinophils % 0.3 Basophils % 0.1 Nucleated RBC % 0 Absolute Neutrophils 12.02 H Absolute Lymphocytes 1.80 Absolute Monocytes 1.43 H Absolute Eosinophils 0.05 Absolute Basophils 0.02 RBC Morphology See Below Polychromasia Present Hypochromasia 1+ Poikilocytosis 1+ Anisocytosis 1+ Microcytosis 1+ Sodium 122 L* Potassium Chloride Carbon Dioxide Anion Gap BUN Creatinine Estimated GFR/1.73 m2 Glucose Calcium Magnesium
--- NOTE | 2021-07-28 16:25 | CHAPLAIN ---
Елена was in bed when I visited. I have not seen her out of bed when I've been on the med/surg floor. She said she is not sure when she will be discharged. She is still hoping to be recovered enough to have her surgery scheduled at [facility] later this month. She's in touch with her by phone and her daughter visits. Her is not vaccinated, so he is not allowed to visit according to hospital policies.
[2021-07-28 17:45] LABS: Sodium, Urine 99 mmol/L
[2021-07-28 20:23] LABS: Anion Gap 3.7 mmol/L (3-11); BUN 20 mg/dL (7-18); CO2 32.3 mmol/L (21.0-32.0); CREATININE 1.1 mg/dL (0.55-1.02); Calcium 8.5 mg/dL (8.5-10.1); Chloride 88 mmol/L (98-107); Estimated GFR 50.33 (mL/min/1.73m2); Glucose 119 mg/dL (74-106)
[2021-07-28 20:24] LABS: Sodium 124 mmol/L (136-145)
[2021-07-28] MEDS: Metoprolol CR 100 MG TABCR 200 MG PO (21:31)
[2021-07-28] MEDS: Amitriptyline 25 MG TAB PO (21:31)
[2021-07-28] MEDS: LORazepam 1 MG TAB PO (21:31)
[2021-07-29] VITALS (12 sets, daily range): BP systolic 129–154; BP diastolic 79–92; PULSE 71–91; RESP 1–22; TEMP 36.5–37.3; O2SAT 92–96
[2021-07-29] MEDS: Heparin 5,000 UNITS/ML VIAL 5000 UNITS SC (01:20)
[2021-07-29] MEDS: Acetaminophen 325 MG TAB PO (03:32)
[2021-07-29] MEDS: Docusate Sodium 100 MG CAP PO ×2 (08:03→19:44)
[2021-07-29] MEDS: Multivitamin TAB 1 TAB PO (08:03)
[2021-07-29] MEDS: Ipratropium 0.5 MG/2.5 ML UPD VIAL 0.25 MG UPD ×2 (08:04→19:59)
[2021-07-29] MEDS: Pantoprazole 40 MG TABCR PO (08:04)
[2021-07-29] MEDS: Azithromycin 250 MG TAB PO (08:04)
[2021-07-29] MEDS: Furosemide 40 MG/4 ML VIAL IVP ×2 (08:04→15:20)
[2021-07-29] MEDS: Norethindrone 5 MG TAB 10 MG PO ×2 (08:04→19:44)
[2021-07-29] MEDS: predniSONE 20 MG TAB 40 MG PO (08:04)
[2021-07-29] MEDS: Levalbuterol 1.25 MG/3 ML UPD VIAL UPD ×2 (08:05→19:45)
[2021-07-29] MEDS: Psyllium PKT 1 EACH PO ×2 (08:05→19:45)
[2021-07-29] MEDS: Mometasone 220 MCG 14 DOSE INHALER 2 PUFF IH ×2 (08:05→19:58)
[2021-07-29] MEDS: Tiotropium/Olodaterol 10 PUFF INHALER 2 PUFF IH (08:05)
[2021-07-29 09:19] LABS: Anion Gap 5.3 mmol/L (3-11); BUN 18 mg/dL (7-18); CO2 31.7 mmol/L (21.0-32.0); CREATININE 0.9 mg/dL (0.55-1.02); Calcium 8.8 mg/dL (8.5-10.1); Chloride 88 mmol/L (98-107); Glucose 105 mg/dL (74-106); Magnesium 1.9 mg/dL (1.8-2.4); Potassium 3.9 mmol/L (3.5-5.1); Sodium 125 mmol/L (136-145)
--- NOTE | 2021-07-29 10:52 | PT.INIE ---
PT Notes Visit Reasons: COPD Exacerbation w/Hypoxia,CHF,Hyponatremia Inpatient Physical Therapy Evaluation Date: 07/29/21 Referring Doctor: Dr. Mars PT Orders: PT CONSULT: limited ability to ambulate Precautions: standard Patient Profile/Admitting Diagnosis: Patient admitted for medical management of (HFpEF) heart failure with preserved ejection fraction and COPD exacerbation. PMHX: Discharge planning issues (Acute) DVT prophylaxis (Acute) Hypoxia (Chronic) (HFpEF) heart failure with preserved ejection fraction (Acute) Acute exacerbation of chronic obstructive pulmonary disease (COPD) (Acute) Anxiety (Chronic) Dyspnea (Acute) Uterine mass (Acute) 07/01/2021 patient referred to [facility] [place] [place]. Plan is to have a uterine artery embolization consult. Acute anemia (Acute) Postmenopausal bleeding (Acute) Dyspnea on exertion (Acute) S/P left inguinal hernia repair (Acute) 01/21/19 Dr Odette Cormier, left Left inguinal hernia (Acute) Incarcerated inguinal hernia, unilateral (Acute) Small bowel obstruction (Acute) Dehydration (Acute) Hypertension (Chronic) Change in mental status (Acute) Paroxysmal SVT (supraventricular tachycardia) (Acute) Cardiomyopathy (Acute) PUD (peptic ulcer disease) (Acute) Iron deficiency anemia due to chronic blood loss (Acute) Chronic bronchitis with COPD (chronic obstructive pulmonary disease) (Acute) Alcohol abuse (Acute) Pneumonia (Acute) COPD (chronic obstructive pulmonary disease) (Chronic) Medical History (Updated 07/25/21 @ 17:54 by Laura Mars MD) Alcoholic gastritis Former smoker Hyponatremia Mood disorder with psychosis Neck pain on right side Post-menopausal bleeding Pulmonary hypertension Social History/Home Situation: Patient lives in a private home with her . She has home O2 and a rollator walker. States that she only walks short distances due to fatigue. She has been walking from her front door to her back door for exercise, which she estimates is about 100'. She sometimes has to sit during this walk. She no longer drives. Participates in some home duties such as cooking, but states she is no longer able to sweep the floor or clean to any degree. Equipment Owned/DME: 4WW, home O2 Subjective: Deepthi states that she is very anxious to do some walking. She's been moving around her room a bit, but feels like she really needs to take a long walk. She is worried about losing endurance. She states that she is feeling so much better than when she came into the hospital. Objective: General Observation: Resting in bed with supplemental O2 via nasal cannula. IV in RUE. Mental Status: A&Ox3 Pain: denies Vital Signs: SaO2 92% at rest on 2LPM supplemental O2. With ambulation, patient has ANDERS and wheezing, although SaO2 remains between 93-96%. ROM: Right Upper Extremity: WFL Left Upper Extremity: WFL Right Lower Extremity: WLF Left Lower Extremity: WFL Strength: Right Upper Extremity: Shoulder flexion 4/5. Biceps 4+/5. Senior Accountant Analyst is strong and equal. Left Upper Extremity: Shoulder flexion 4/5. Biceps 4+/5. Senior Accountant Analyst is strong and equal. Right Lower Extremity: Hip flexion 4/5. Quads 4+/5. Hamstrings 4/5. Ankle DF 4+/5. Left Lower Extremity: Hip flexion 4/5. Quads 4+/5. Hamstrings 4/5. Ankle DF 4+/5. Sensation: intact distally Bed Mobility/Transfers: supine-sit: independent with HOB at 30 degrees sit-stand: independent stand-sit: independent Bed-chair: independent without AD Gait: Patient ambulates 100' with FWW, 2LPM O2 via nasal cannula. She demonstrates slow, shuffling gait pattern, and requires standing rest periods x 3 due to ANDERS. Balance: Static Sitting: normal Dynamic Sitting: normal Static Standing: good Dynamic Standing: fair Special Tests: 4 Position Balance Test: 2/4 (unable to tandem stand) Mobility Limitations Standardized Measure [facility] AM-PAC 6 clicks Basic Mobility Inpatient Short Form: Raw Score: 23 CMS Score: 11% impairment Informed Consent/Education: Patient instructed in purpose of PT consult and plan of care. Patient was instructed in therex as noted below. Therapeutic Exercises ([id number]): Patient was instructed in seated and standing exercises as noted on flowsheet. Worked on pacing and cued for breathing technique throughout. Patient was provided with HEP for completion between PT sessions consisting of the followin. seated september x 1 minute 2. LAQ x 10 3. Iso shoulder ER with yellow band, 10x10 seconds Assessment: Patient is a 60 year old female referred to physical therapy services with the diagnosis of COPD exacerbation and heart failure. Patient presents with clinical signs and symptoms consistent with diagnosis, with associated limitations in functional mobility and activity tolerance. Patient has been ambulating independently in her room, and demonstrates good safety with short distance ambulation. PT goals are primarily to improve activity tolerance for household distance ambulation and maximize safety with longer distance ambulation. She currently demonstrates the following impairment level findings: 1. Decreased activity tolerance 2. Decreased LE strength 3. Decreased UE strength 4. ANDERS with household distance ambulation Impairments are contributing to the following functional limitations: 1. Unable to ambulate community distances 2. 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 Patient has an extensive medical history and limited baseline mobility. Examination: functional limitations as noted above Presentation: evolving Decision Making: moderate complexity Goals: Goals X1 week 1. Supine-Sit : independent 2. Sit-Supine : independent 3. Sit-Stand : independent 4. Stand-Sit : independent 5. Bed-Chair : independent 6. Chair-Bed : independent 7. Gait : supervision x 250' with FWW Plan of Care/Treatment Plan: 1x/day, 7 days/week x 1 week. Plan of care has been reviewed with the [facility] providing the service under Physical Therapy direction. Initiate Physical Therapy intervention for strengthening, bed mobility, transfers, gait, stairs, balance training, use of assistive device. DISCHARGE RECOMMENDATIONS: Home with services [ PT] TREATMENT CODE/TIME: 11:00 - 11:40 ([id number]) Jodi Garcia, PT, DPT [facility]
--- NOTE | 2021-07-29 12:11 | CMPROGNOTE_ITS ---
- If Service Date Differs Date of service: 07/29/21 Time of Service: 12:11 Care Management Progress Note S/O: Елена was sitting up in bed today when CM met with her. She reported that she is feeling better, but still tired and weak. She stated that she talked to the MD, who reported that she would likely be ready for discharge tomorrow, as she is changing her medications to oral today, and will want to monitor her overnight. PT was consulted today and is recommending HH PT. CM contacted HH to inform them of her potential discharge over the weekend. CM will continue to follow. A: Deepthi is a 60 year old female admitted to [facility] on 07/25/21 with COPD exacerbation. P: Елена will likely be discharged home when medically cleared by MD. She will have new orders for HH PT. She will follow up with her PCP and plan of care and transport with family. CM will assess and support identified discharge needs.
[2021-07-29 17:02] LABS: Osmolality, Urine 319 mOsm/kg (150-1,150)
[2021-07-29 17:47] LABS: Anion Gap 7.3 mmol/L (3-11); BUN 21 mg/dL (7-18); CO2 29.7 mmol/L (21.0-32.0); CREATININE 1.2 mg/dL (0.55-1.02); Calcium 8.5 mg/dL (8.5-10.1); Chloride 89 mmol/L (98-107); Estimated GFR 45.52 (mL/min/1.73m2); Glucose 162 mg/dL (74-106); Magnesium 1.6 mg/dL (1.8-2.4); Potassium 4.5 mmol/L (3.5-5.1); Sodium 126 mmol/L (136-145)
--- NOTE | 2021-07-29 18:05 | W.PM.PROGNOT ---
Date of Service Date of service: 07/29/21 Time of Service: 16:45 Assessment and Plan Assessment and plan (1) Acute exacerbation of chronic obstructive pulmonary disease (COPD): Status: Acute Assessment and plan: Improved. Finished 5th day of steroids today. Continue scheduled ipratropium/levalbuterol, prn levalbuterol, fluticasone, stiolto. (2) (HFpEF) heart failure with preserved ejection fraction: Status: Chronic Assessment and plan: Finished IV lasix and transitioned to Po furosemide today (60 mg PO BID). Continue fluid restriction - 1200 cc daily. (3) Paroxysmal SVT (supraventricular tachycardia): Status: Resolved Assessment and plan: No SVT overnight. Continue toprol XL 200 mg HS. Keep on tele. Written for prn IV lopressor. Continue levalbuterol in place of albuterol. Electrophysiology referral and extended cardiac monitoring on d/c. (4) Hyponatremia: Assessment and plan: Better. Continue diuresis. Ddx: dilutional/psychogenic polydypsia, due to Antonio-i, SSRI, SIADH. Hold antonio-i and SSRI. We are also holding aldactone. Await urine osmolality. Continue monitoring Sodiums Q6Hrs with the tightened fluid restriction (1200 cc). No neuro sx. (5) Hypoxia: Status: Chronic Assessment and plan: The patient states she is normally on 2L of O2 by [place]. Will need exercise oximetry on d/c. (6) Iron deficiency anemia due to chronic blood loss: Status: Chronic Assessment and plan: Due to dysfunctional uterine bleeding. H/H at target - no need for IV iron at this time. (7) Constipation: Status: Resolved Assessment and plan: Continue bowel regimen. (8) DVT prophylaxis: Status: Acute Assessment and plan: Continue SC heparin. Monitor for recurrent vaginal bleeding. (9) Discharge planning issues: Status: Acute Assessment and plan: Full code Continues to require hospitalization Anticipate discharge home tomorrow. Subjective Subjective Interval history since last seen: Ms Hernandez states that she is feeling a lot better today. Her breathing is better. Her biggest complaint is that her hands are cramping up. She has noted how much water weight she has lost. Denies dizziness, chest pain, nausea. + BM. Exam Narrative Exam Narrative: General: Pleasant elderly female, very alert, A&Ox3, no focal deficits, Sitting at the side of the bed eating dinner HEENT: EOMI, MMM Heart: RRR, no m/r/g Lungs: rales at B bases Abdomen: soft, full, nontender Extremities: no edema BLEs Objective Last Vital Signs Temp 37.2 C 07/29/21 16:01 Pulse 91 H 07/29/21 16:01 Resp 18 07/29/21 16:01 BP 145/79 H 07/29/21 16:01 Pulse Ox 95 07/29/21 16:01 Laboratory Results - last 24 hr 07/28/21 07/28/21 07/29/21 16:40 20:07 09:00 Sodium 124 L 125 L Potassium 5.0 D 3.9 D Chloride 88 L 88 L Carbon Dioxide 32.3 H 31.7 Anion Gap 3.7 5.3 BUN 20 H D 18 Creatinine 1.1 H 0.9 Estimated GFR/1.73 m2 50.33 >= 60.00 Glucose 119 H 105 Calcium 8.5 8.8 Magnesium 1.9 Urine Osmolality 319 07/29/21 17:33 Sodium 126 L Potassium 4.5 Chloride 89 L Carbon Dioxide 29.7 Anion Gap 7.3 BUN 21 H Creatinine 1.2 H Estimated GFR/1.73 m2 45.52 Glucose 162 H Calcium 8.5 Magnesium 1.6 L Urine Osmolality
[2021-07-29] MEDS: MAGNESIUM SULFATE 2 GM/50 ML BAG IVPB (19:45)
[2021-07-29] MEDS: Amitriptyline 25 MG TAB PO (21:38)
[2021-07-29] MEDS: Metoprolol CR 100 MG TABCR 200 MG PO (21:38)
[2021-07-29] MEDS: Normal Saline Flush 10 ML SYR IVP (21:39)
[2021-07-29] MEDS: LORazepam 1 MG TAB PO (21:41)
[2021-07-30] MEDS: Heparin 5,000 UNITS/ML VIAL 5000 UNITS SC (01:37)
[2021-07-30 03:17] VITALS: BP 151/81; PULSE 74; RESP 18; TEMP 37; O2SAT 91
[2021-07-30 06:08] LABS: Abs Immature Grans 0.25 10^3/uL (0.0-0.06); Basophils % 0.4; Eosinophils % 0.6; HCT 35.4 % (36.0-46.0); HGB 10.4 g/dL (11.2-15.7); Immature Grans % 1.4; MCH 23.5 pg (27.0-33.0); MCHC 29.4 % (32.0-36.0); MCV 80.1 fL (80-95); MPV 8.8 fL (8.0-11.0); Monocytes % 7.3; Neutrophils % 77.3; Nucleated RBC 0 %; Platelet Count 374 10^3/uL (130-400); RBC 4.42 10^6/uL (3.93-5.22); RDW 20.4 % (11.7-14.6); RDW-SD 58.9 fL; WBC 18.48 10^3/uL (4.4-10.8)
[2021-07-30 06:24] LABS: Absolute Basophil Count 0.07 10^3/uL (0.0-0.2); Absolute Eosinophil Count 0.11 10^3/uL (0.0-0.7); Absolute Monocyte Count 1.35 10^3/uL (0.1-0.8); Absolute Neutrophil Count 14.29 10^3/uL (1.2-6.7)
[2021-07-30 06:34] LABS: Anion Gap 3.2 mmol/L (3-11); BUN 18 mg/dL (7-18); CO2 32.8 mmol/L (21.0-32.0); CREATININE 0.9 mg/dL (0.55-1.02); Calcium 8.3 mg/dL (8.5-10.1); Chloride 89 mmol/L (98-107); Magnesium 2.1 mg/dL (1.8-2.4); Sodium 125 mmol/L (136-145)
[2021-07-30 06:36] LABS: Glucose 93 mg/dL (74-106)
[2021-07-30 06:39] LABS: Anisocytosis 1+
[2021-07-30 07:00] VITALS: PULSE 70
[2021-07-30 07:18] VITALS: BP 145/81; PULSE 73; RESP 18; TEMP 36.5; O2SAT 96
[2021-07-30] MEDS: Psyllium PKT 1 EACH PO (07:34)
[2021-07-30] MEDS: Levalbuterol 1.25 MG/3 ML UPD VIAL UPD (07:34)
[2021-07-30] MEDS: Docusate Sodium 100 MG CAP PO (07:35)
[2021-07-30] MEDS: Pantoprazole 40 MG TABCR PO (07:35)
[2021-07-30] MEDS: Ipratropium 0.5 MG/2.5 ML UPD VIAL 0.25 MG UPD (07:35)
[2021-07-30] MEDS: Acetaminophen 325 MG TAB PO (07:35)
[2021-07-30] MEDS: Norethindrone 5 MG TAB 10 MG PO (07:35)
[2021-07-30] MEDS: Multivitamin TAB 1 TAB PO (07:36)
[2021-07-30] MEDS: Azithromycin 250 MG TAB PO (07:36)
[2021-07-30] MEDS: Tiotropium/Olodaterol 10 PUFF INHALER 2 PUFF IH (07:37)
[2021-07-30] MEDS: Mometasone 220 MCG 14 DOSE INHALER 2 PUFF IH (07:37)
[2021-07-30] MEDS: Furosemide 40 MG TAB 60 MG PO (08:27)
--- NOTE | 2021-07-30 09:09 | PTTR_ITS ---
PT Notes Visit Reasons: COPD Exacerbation w/Hypoxia,CHF,Hyponatremia 07/30/2021 SUBJECTIVE: Feeling quite a bit better today other than a little tired from not sleeping well last night. Her breathing feels good today. She has done one set of her exercises independently today. OBJECTIVE: TRANSFERS Supine to sit: I Sit to supine: I Sit to stand: I Stand to sit: I GAIT Device: FWW Weight bearing: Full Assist: S Distance: 150' Deviation: 2 L NC, Vitals: 74 b/m, 93% post ambulation ASSESSMENT: No LOB or path deviations noted today with ambulation. Does not require rest breaks. Able to carry on conversation throughout. PLAN: Continue per POC. Treatment time: [id number] Alicia Baer PTA Clinic location: [facility] [place], [place]
--- NOTE | 2021-07-30 10:25 | DSE_ITS ---
Date of service: 07/30/21 Time of Service: 11:41 DS: Diagnosis Discharge Diagnosis (1) Acute exacerbation of chronic obstructive pulmonary disease (COPD): Status: Acute (2) (HFpEF) heart failure with preserved ejection fraction: Status: Chronic (3) Paroxysmal SVT (supraventricular tachycardia): Status: Resolved (4) Hyponatremia: (5) Hypoxia: Status: Chronic (6) Iron deficiency anemia due to chronic blood loss: Status: Chronic (7) Constipation: Status: Resolved (8) DVT prophylaxis: Status: Acute (9) Discharge planning issues: Status: Acute Discharge Plan Disposition Patient Disposition: HOME W/HOME HEALTH SERVICE Condition: Improving Discharge Details Reason For Visit: COPD Exacerbation w/Hypoxia,CHF,Hyponatremia Admit Date/Time: 07/25/21 11:39 Admit Provider: Laura Mars Attending Provider: Laura Mars Primary Care Provider: [facility] Course: Ms Hernandez is a 60 year old female with PMHx of oxygen-dependent COPD, normally on 2L of O2 by NC, as well as pulmonary hypertension, essential hypertension on tammi-i, iron deficiency anemia, chronic hyponatremia, who received an iron infusion on Sunday (4 days before this admission) and presented to [facility] ED with progressively worsening shortness of breath since then. The patient describes noting that her legs were swollen that night and that it was hard to breathe, especially laying down. She took an extra water pill to help with the swelling in her legs, which resolved it, but the breathing did not get much better. She denies fevers, runny nose/sore throat, cough, chest pain. She has not had any contacts with anyone with COVID-19, is vaccinated against COVID-19. Here, she was found to require 2L of O2 by NC, which is her baseline, desaturating to 87% on RA, but was tachypneic. She felt better after receiving 2 runs of nebulizer treatments as well as a dose of methylprednisolone. Her sodium is 123, usually close to 130s. Her CXR and CT were negative for any acute abnormalities, including acute PE. Her pro-BNP was elevated. She tested negative for COVID-19. IV lasix initiated along with a fluid restriction. A trial of BiPAP was initiated. Scheduled and prn nebs ordered with a change from albuterol to levalbuterol gien pSVT. Home Stiolto continued. Prednisone and 5 days of azithromycin initiated. Pulmonary medicine consulted. She was monitored on telemetry. Her metoprolol succinate was increased from 150mg to 200mg nightly. Her lisinopril was held then d/c'd. Due to her hyponatremia, her SSRI was held but she was to restart upon discharge. Her Na improved from a maggie of 117 to 125. She will d/c on an increased dose of lasix. Spironolactone was discontinued. Continue 1200ml fluid restriction. BMP to monitor Na at time of PCP follow up. Home with home health nursing, PT/OT, JUNIOR NETWORK ENGINEER F/U with PCP in 1-2 weeks. Outpt cardiac monitoring suggested and consider EP referral. Home Meds and New Rx's Prescriptions: New ipratropium bromide 0.02 % Solution 0.25 mg UPD BID Qty: 60 RF: 0 ipratropium bromide 0.02 % Solution 0.5 mg UPD Q4H PRN PRNQty: 150 RF: 0 levalbuterol tartrate 45 mcg/actuation Hfa Aerosol Inhaler 2 puff inhalation Q4H PRN PRNQty: 15 RF: 0 levalbuterol HCl 1.25 mg/3 mL Solution For Nebulization 1.25 mg UPD BID Qty: 60 RF: 0 levalbuterol HCl 1.25 mg/3 mL Solution For Nebulization 1.25 mg UPD Q4H PRN PRNQty: 90 RF: 0 sennosides [Senokot] 8.6 mg Tablet 1 tab PO BID PRN PRNQty: 60 RF: 0 metoprolol succinate 100 mg Tablet Extended Release 24 Hr 200 mg PO HS Qty: 60 RF: 0 pantoprazole 40 mg Tablet,Delayed Release (Dr/Ec) 40 mg PO DAILY@0730 Qty: 30 RF: 0 Metamucil Sugar-Free (aspart) 3.4 gram/5.8 gram Powder 1 ea PO BID Qty: 0 RF: 0 furosemide 40 mg tablet 40 mg PO BID Qty: 60 RF: 0 Continued multivitamin Tablet 1 tab DAILY RF: 0 amitriptyline 25 mg tablet 25 mg PO QHS RF: 0 norethindrone acetate 5 mg tablet 10 mg PO BID Qty: 120 RF: 1 Stiolto Respimat 2.5-2.5 mcg/actuation Mist 2 puff INHALATION DAILY RF: 0 lorazepam 0.5 mg tablet 0.5 mg PO DAILY PRN PRNRF: 0 Flovent HFA 220 mcg/actuation HFA aerosol inhaler 1 puff INHALATION BID RF: 0 fluoxetine 20 mg Capsule 20 mg PO DAILY RF: 0 acetaminophen 325 mg Tablet 650 mg PO PRN PRNRF: 0 Discontinued furosemide 40 mg tablet 40 mg PO DAILY RF: 0 metoprolol succinate 100 mg tablet extended release 24 hr 150 mg PO QPM RF: 0 albuterol sulfate 2.5 mg /3 mL (0.083 %) Solution For Nebulization 2.5 mg Inhalation Q4H PRN PRNRF: 0 lisinopril 20 mg Tablet 20 mg PO HS RF: 0 albuterol sulfate [ProAir HFA] 90 mcg/actuation Hfa Aerosol Inhaler 1 - 2 puff Inhalation Q4H PRN PRNRF: 0 spironolactone 50 mg Tablet 50 mg PO DAILY RF: 0 No Action nystatin [Nystop] 100,000 unit/gram powder 1 applic TOPICAL DIRECTED RF: 0 Discharge Instructions Stand Alone Forms: Nursing Discharge Form Referrals: Chelsey Marrero MD [ [facility] STAFF PHYSICIAN] - 09/30/21 8:30 am [facility] [Primary Care Provider] - (Please the office on Sunday to schedule a follow up appointment for 1-2 weeks.) Activity:: Activity as Tolerated Equipment/Supplies:: No Equipment Needed Diet:: resume usual diet Discharge Orders Discharge Orders: Discharge Order (Routine); Ordered 07/30/21 Ordered By: Ashish Meneses Discharge Data Discharge Date/Time-TO BE ENTERED AT DEPARTURE: 07/30/21 13:11 DS: Summary Time Spent with Patient providing and/or coordinating discharge services: Greater than 30 minutes Status at Discharge Functional status at discharge: uses cane/walker Overall status at discharge: patient is progressing back to baseline Mental Status: mental status grossly normal Speech and Movement: speech clear Mood: congruent mood Affect: normal affect Exam Narrative Exam Narrative: General: Pleasant elderly female, very alert, A&Ox3, no focal deficits, Sitting at the side of the bed eating dinner HEENT: EOMI, MMM Heart: RRR, no m/r/g Lungs: rales at B bases Abdomen: soft, full, nontender Extremities: no edema BLEs Psych Mental Status: mental status grossly normal Speech and Movement: speech clear Mood: congruent mood Affect: normal affect DS: Data Vitals/I&O Vitals and I&O: Vital Signs Temperature 36.5 C 07/30/21 07:18 Temperature Source Tympanic 07/30/21 07:18 Pulse 73 07/30/21 07:18 Pulse Rhythm Regular 07/30/21 08:20 Pulse 100 H 07/25/21 12:50 Respiratory Rate 18 07/30/21 07:18 Respiratory Effort 07/30/21 08:20 Respiratory Depth Normal 07/30/21 08:20 Respiratory Pattern Normal 07/30/21 03:23 Blood Pressure 145/81 H 07/30/21 07:18 Blood Pressure Mean 100 07/25/21 10:31 Blood Pressure Position Sitting 07/25/21 09:03 Pulse Oximetry 96 07/30/21 07:18 Oxygen Delivery Method Nasal Cannula 07/30/21 07:18 Oxygen Flow Rate 2 07/30/21 07:18 Fraction of Inspired Oxygen (FIO2) 96 07/25/21 12:53 Pain Level 0 07/30/21 07:18 Comment 07/26/21 19:38 Intake & Output 07/29/21 07/29/21 07/30/21 11:59 23:59 11:59 Intake Total 100 / 835 735 / 835 Output Total 400 / 1200 800 / 1200 800 / 800 Balance -300 / -365 -65 / -365 -800 / -800 Weight 75.4 kg Intake: IV 50 / 50 Oral 100 / 785 685 / 785 Output: Urine 400 / 1200 800 / 1200 800 / 800 Other: Urine Color Yellow Yellow Urine Appearance Clear Clear Clear Urine Odor None Comment Per patien she used the bathroom this morning Pt used commode throughout the night Stool Size Moderate Stool Characteristics Soft Formed Voiding Methods Toilet Bedside Commode Bedside Commode Data Completed and Pending Labs on day of discharge: Labs from last 24 hours 07/30/21 07/30/21 07/29/21 05:35 05:35 17:33 WBC 18.48 H RBC 4.42 Hgb 10.4 L Hct 35.4 L MCV 80.1 MCH 23.5 L MCHC 29.4 L RDW 20.4 H Plt Count 374 MPV 8.8 Immature Gran % 1.4 Neutrophils % 77.3 Lymphocytes % 13.0 Monocytes % 7.3 Eosinophils % 0.6 Basophils % 0.4 Nucleated RBC % 0 Absolute Neutrophils 14.29 H Absolute Lymphocytes 2.40 Absolute Monocytes 1.35 H Absolute Eosinophils 0.11 Absolute Basophils 0.07 Anisocytosis 1+ Sodium 125 L 126 L Potassium 4.0 4.5 Chloride 89 L 89 L Carbon Dioxide 32.8 H 29.7 Anion Gap 3.2 7.3 BUN 18 21 H Creatinine 0.9 1.2 H Estimated GFR/1.73 m2 >= 60.00 45.52 Glucose 93 D 162 H Calcium 8.3 L 8.5 Magnesium 2.1 1.6 L Urine Osmolality 07/28/21 16:40 WBC RBC Hgb Hct MCV MCH MCHC RDW Plt Count MPV Immature Gran % Neutrophils % Lymphocytes % Monocytes % Eosinophils % Basophils % Nucleated RBC % Absolute Neutrophils Absolute Lymphocytes Absolute Monocytes Absolute Eosinophils Absolute Basophils Anisocytosis Sodium Potassium Chloride Carbon Dioxide Anion Gap BUN Creatinine Estimated GFR/1.73 m2 Glucose Calcium Magnesium Urine Osmolality 319 PFSH All Active Problems Pulmonary hypertension (Acute) Respiratory failure with hypoxia (Acute) Discharge planning issues (Acute) DVT prophylaxis (Acute) Hypoxia (Chronic) (HFpEF) heart failure with preserved ejection fraction (Chronic) Acute exacerbation of chronic obstructive pulmonary disease (COPD) (Acute) Anxiety (Chronic) Dyspnea (Acute) Uterine mass (Acute) 07/01/2021 patient referred to [facility]. Plan is to have a uterine artery embolization consult. Acute anemia (Acute) Postmenopausal bleeding (Acute) Dyspnea on exertion (Acute) S/P left inguinal hernia repair (Acute) 01/21/19 Dr Odette Cormier, left Left inguinal hernia (Acute) Incarcerated inguinal hernia, unilateral (Acute) Small bowel obstruction (Acute) Dehydration (Acute) Hypertension (Chronic) Change in mental status (Acute) Cardiomyopathy (Acute) PUD (peptic ulcer disease) (Acute) Iron deficiency anemia due to chronic blood loss (Chronic) Chronic bronchitis with COPD (chronic obstructive pulmonary disease) (Acute) Alcohol abuse (Acute) COPD (chronic obstructive pulmonary disease) (Chronic) Medical History Alcoholic gastritis Former smoker Hyponatremia Mood disorder with psychosis Neck pain on right side Pneumonia Post-menopausal bleeding Pulmonary hypertension Surgical History EGD - MAC (07/04/16) Social History Smoking/Tobacco Use Status: Former Tobacco Use Quit Date: 01/13/15 Smoking risk assessment performed?: Yes Alcohol Intake: former Drug use: Never Substance use type: does not use Do you feel safe at home: Yes Do you feel safe in your relationship?: Yes Additional Social history: Unable to assess privatley
[2021-07-30 11:08] VITALS: BP 138/86; PULSE 79; RESP 18; TEMP 36.6; O2SAT 93
--- NOTE | 2021-07-30 11:30 | CMDISCH_ITS ---
- If Service Date Differs Date of service: 07/30/21 Time of Service: 11:31 LACE Index Scoring Tool - Questions: Length of Stay (in days): 4 - 6 Acuity (Admit via E.D.?): Yes Comorbidities: Congestive Heart Failure, Chronic Pulmonary Disease E.D. Visits: 3 - Answers: Total Score: 15 Risk of Readmission: High Risk Care Management Discharge Reason for Hospitalization: COPD exacerbation w/hypoxia, CHF, hyponatremia Discharge Plan: Елена will be discharged home when medically cleared by MD. She will have new orders for HH RN, PT OT, ELECTRICAL AUTOMATION ENGINEER. She will follow up with her PCP and plan of care and transport with family. Her pharmacy-[facility] in [place]-is closed over the weekend so she will be sent home with enough medication until she is able to retrieve her medications on Sunday. CM reviewed with Елена's daughter Evonne, who will transport her mother home at 1300; CM notified team. Елена will follow up with her PCP and plan of care as prescribed. Patient/Family Education Needs: Review discharge instructions, discuss Ask Me Three. Services Needed at Discharge: Home Health Care Services (RN/PT/OT/ELECTRICAL AUTOMATION ENGINEER)
--- NOTE | 2021-07-30 11:47 | PDOC.HHF2F ---
Home Health Certification Home Health Certification: 1. Encounter Date and Reason I certify that Deepthi Hernandez was seen by Ashish Meneses MD on 07/30/21 and that I had a [id number] encounter with this patient that meets the physician face to face encounter requirements. 2. Clinical Findings Supporting Skilled Need and Homebound Status I certify that home health services are medically necessary, include either intermittent alf and/or physical/speech therapy, and that this patient is homebound in that absences from the home require considerable and taxing effort and are infrequent or of short duration, or are attributable to the need to receive medical care. [X] (a) Attached documentation from encounter provides clinical findings supporting skilled need and homebound status (including what assistance patient requires to leave the home). The encounter with the patient was in whole, or in part, for the following medical condition, which is the primary reason for home health care: COPD Exacerbation w/Hypoxia,CHF,Hyponatremia Retirement:Monitoring medications (multiple changes and new prescriptions). Monitor respiratory and cardiac status Physical Therapy and Occupational Therapy: Evaluate and assist in strengthening, gait stability/balance, endurance. Evaluate ability to perform ADLs and assist with deficits. GUEST HOUSE MANAGER: Assist in obtaining community services that would be beneficial. Speech Therapy: Homebound:Requires assistance of another person for safe ambulation outside of the home. 3. Certification and Authentication I certify that I composed the above information based on my clinical judgement relating to this patient's medical condition and, if applicable, clinical findings communicated to me by the NPP or inpatient physician who performed the Home Health Referral. All further orders will be obtained through [facility] (Community Based Physician - PCP)
[2021-07-30 12:11] VITALS: PULSE 89
--- NOTE | 2021-08-03 09:43 | INDS_ITS ---
PT Notes Visit Reasons: COPD Exacerbation w/Hypoxia,CHF,Hyponatremia Physical Therapy Inpatient Discharge Summary Date: 08/03/21 Dates of service: 07/29/2021 through 07/30/2021 This is a clinical summary of care provided for the duration of dates listed above. No charge was made in the completion of this documentation. Referring Doctor: Dr. Mars PT Orders: PT CONSULT: limited ability to ambulate Precautions: standard Patient Profile/Admitting Diagnosis: Patient admitted for medical management of (HFpEF) heart failure with preserved ejection fraction and COPD exacerbation. PMHX: All Active problems (Updated 07/25/21 @ 17:54 by Laura Mars MD) Discharge planning issues (Acute) DVT prophylaxis (Acute) Hypoxia (Chronic) (HFpEF) heart failure with preserved ejection fraction (Acute) Acute exacerbation of chronic obstructive pulmonary disease (COPD) (Acute) Anxiety (Chronic) Dyspnea (Acute) Uterine mass (Acute) 07/01/2021 patient referred to [facility]. Plan is to have a uterine artery embolization consult. Acute anemia (Acute) Postmenopausal bleeding (Acute) Dyspnea on exertion (Acute) S/P left inguinal hernia repair (Acute) 01/21/19 Dr Odette Cormier, left Left inguinal hernia (Acute) Incarcerated inguinal hernia, unilateral (Acute) Small bowel obstruction (Acute) Dehydration (Acute) Hypertension (Chronic) Change in mental status (Acute) Paroxysmal SVT (supraventricular tachycardia) (Acute) Cardiomyopathy (Acute) PUD (peptic ulcer disease) (Acute) Iron deficiency anemia due to chronic blood loss (Acute) Chronic bronchitis with COPD (chronic obstructive pulmonary disease) (Acute) Alcohol abuse (Acute) Pneumonia (Acute) COPD (chronic obstructive pulmonary disease) (Chronic) Medical History (Updated 07/25/21 @ 17:54 by Laura Mars MD) Alcoholic gastritis Former smoker Hyponatremia Mood disorder with psychosis Neck pain on right side Post-menopausal bleeding Pulmonary hypertension Social History/Home Situation: Patient lives in a private home with her . She has home O2 and a rollator walker. States that she only walks short distances due to fatigue. She has been walking from her front door to her back door for exercise, which she estimates is about 100'. She sometimes has to sit during this walk. She no longer drives. Participates in some home duties such as cooking, but states she is no longer able to sweep the floor or clean to any degree. Equipment Owned/DME: 4WW, home O2 Subjective: NT. See most recent UPHOLSTERY BUNDLER notes. Objective: General Observation: NT. See most recent UPHOLSTERY BUNDLER notes. Mental Status: NT. See most recent UPHOLSTERY BUNDLER notes. Pain: NT. See most recent UPHOLSTERY BUNDLER notes. Vital Signs: NT. See most recent UPHOLSTERY BUNDLER notes. ROM: Right Upper Extremity: WFL Left Upper Extremity: WFL Right Lower Extremity: WLF Left Lower Extremity: WFL Strength: Right Upper Extremity: Shoulder flexion 4/5. Biceps 4+/5. Contract Associate Manager is strong and equal. Left Upper Extremity: Shoulder flexion 4/5. Biceps 4+/5. Contract Associate Manager is strong and equal. Right Lower Extremity: Hip flexion 4/5. Quads 4+/5. Hamstrings 4/5. Ankle DF 4+/5. Left Lower Extremity: Hip flexion 4/5. Quads 4+/5. Hamstrings 4/5. Ankle DF 4+/5. Sensation: intact distally Bed Mobility/Transfers: supine-sit: independent with HOB at 30 degrees sit-stand: independent stand-sit: independent Bed-chair: independent without AD Gait: Patient ambulates 150 with FWW, 2LPM O2 via nasal cannula. She demonstrates slow, shuffling gait pattern. Oxygen saturation at 96%. Balance: Static Sitting: normal Dynamic Sitting: normal Static Standing: good Dynamic Standing: fair Assessment: Patient demonstrates functional mobility improvement as evidenced by mobility level above and goals status below. Goals: Goals X1 week 1. Supine-Sit : independent MET 2. Sit-Supine : independent MET 3. Sit-Stand : independent MET 4. Stand-Sit : independent MET 5. Bed-Chair : independent MET 6. Chair-Bed : independent MET 7. Gait : supervision x 250' with FWW MET DISCHARGE RECOMMENDATIONS: Home with services [ PT] TREATMENT CODE/TIME: NC Thank you for the opportunity to participate in the care of this patient. Marie Murillo PT, DPT, CLT [facility] [place], [place]
== END 2021-07-30 13:11 | disposition home health service (06) | DRG 291 ==
LOC: ER 12:37 → MS 07-26 09:16
PROVIDERS: Admitting Provider Internal Medicine; Emergency Provider Physician Assistant; PCP Family Medicine; Visit Provider Internal Medicine
DX: I11.0 Hypertensive heart disease with heart failure (principal); I50.33 Acute on chronic diastolic (congestive) heart failure; J44.1 Chronic obstructive pulmonary disease with (acute) exacerbation; I47.1 Supraventricular tachycardia; J96.11 Chronic respiratory failure with hypoxia; I42.9 Cardiomyopathy, unspecified; R53.1 Weakness; F41.9 Anxiety disorder, unspecified; J44.9 Chronic obstructive pulmonary disease, unspecified; F10.10 Alcohol abuse, uncomplicated; Z99.81 Dependence on supplemental oxygen; I27.20 Pulmonary hypertension, unspecified; D50.0 Iron deficiency anemia secondary to blood loss (chronic); K59.00 Constipation, unspecified
CPT/HCPCS: 36410; 36415; 71275; 80048; 80053; 82805; 83935; 84145; 87635; 87637; 93005; 93306; 94640; 96365; 96366; 96375; 97110; 97162; 97530; 99285; 71045; 82728; 83735; 83880; 84295; 84300; 84484; 85025; 85379; 85610; 85730; 87081; 93010; 94667; 99223; 99232; 99233; 99239; J1644; J1940; J1941; J2930; J3475; J3490; J7512; J7613; J7614; J7620; J7644

== ENCOUNTER 2021-08-05 01:19 | Outpatient (RCR) | payer MEDICARE, SELFPAY ==
[2021-07-22] MEDS: Normal Saline Flush 10 ML SYR IVP (10:48)
[2021-07-22] MEDS: IRON SUCROSE COMPLEX 300 MG in Normal Saline 250 ML 176.667 MG IVPB (10:58)
== END 2021-08-15 23:59 | disposition home or self-care (01) ==
LOC: INF 01:19
PROVIDERS: PCP Family Medicine; Visit Provider Family Medicine
DX: D50.0 Iron deficiency anemia secondary to blood loss (chronic) (principal)
CPT/HCPCS: 96365; 96366; J1756

== ENCOUNTER 2021-08-09 17:25 | Outpatient (REF) | payer MEDICARE, SELFPAY ==
[2021-08-09 16:32] LABS: HCT 32.3 % (36.0-46.0); HGB 9.4 g/dL (11.2-15.7); MCH 23.5 pg (27.0-33.0); MCHC 29.1 % (32.0-36.0); MCV 80.8 fL (80-95); MPV 9.3 fL (8.0-11.0); Platelet Count 348 10^3/uL (130-400); RDW 20.5 % (11.7-14.6); RDW-SD 59.5 fL; WBC 11.56 10^3/uL (4.4-10.8)
[2021-08-09 17:15] LABS: Anion Gap 4.3 mmol/L (3-11); BUN 10 mg/dL (7-18); CO2 33.7 mmol/L (21.0-32.0); Calcium 8.3 mg/dL (8.5-10.1); Chloride 97 mmol/L (98-107); Estimated GFR 56.18 (mL/min/1.73m2); Glucose 114 mg/dL (74-106); Magnesium 1.6 mg/dL (1.8-2.4); Potassium 3.9 mmol/L (3.5-5.1); Sodium 135 mmol/L (136-145)
== END 2021-08-09 17:26 | disposition home or self-care (01) ==
LOC: LBN 17:25
PROVIDERS: PCP Family Medicine; Visit Provider Family Medicine
DX: D50.0 Iron deficiency anemia secondary to blood loss (chronic) (principal); E87.1 Hypo-osmolality and hyponatremia; I50.9 Heart failure, unspecified
CPT/HCPCS: 80048; 85027; 83735

== ENCOUNTER 2021-08-26 11:46 | Outpatient (REF) | payer MEDICARE, SELFPAY ==
[2021-08-26 09:50] LABS: Anion Gap 3.2 mmol/L (3-11); BUN 12 mg/dL (7-18); CO2 36.8 mmol/L (21.0-32.0); CREATININE 0.9 mg/dL (0.55-1.02); Calcium 8.3 mg/dL (8.5-10.1); Chloride 92 mmol/L (98-107); Glucose 145 mg/dL (74-106); Magnesium 1.9 mg/dL (1.8-2.4); Potassium 3.9 mmol/L (3.5-5.1); Sodium 132 mmol/L (136-145)
== END 2021-08-26 11:47 | disposition home or self-care (01) ==
LOC: NCHCN 11:46
PROVIDERS: PCP Family Medicine; Visit Provider Family Medicine
DX: R06.09 Other forms of dyspnea (principal); J44.9 Chronic obstructive pulmonary disease, unspecified; I50.33 Acute on chronic diastolic (congestive) heart failure
CPT/HCPCS: 80048; 83735

== ENCOUNTER → 2021-09-01 00:54 | Outpatient (CLI) | payer MEDICARE, SELFPAY | PROVIDERS: PCP Family Medicine; Visit Provider Family Medicine ==

== ENCOUNTER 2021-09-09 19:05 | Outpatient (REF) | payer MEDICARE, SELFPAY ==
[2021-09-09 14:25] LABS: Abs Immature Grans 0.04 10^3/uL (0.0-0.06); Absolute Basophil Count 0.04 10^3/uL (0.0-0.2); Absolute Eosinophil Count 0.09 10^3/uL (0.0-0.7); Absolute Lymphocyte Count 0.65 10^3/uL (1.2-3.4); Absolute Neutrophil Count 7.58 10^3/uL (1.2-6.7); Basophils % 0.4; HCT 35.3 % (36.0-46.0); HGB 9.9 g/dL (11.2-15.7); Immature Grans % 0.4; MCH 22.7 pg (27.0-33.0); MPV 9.3 fL (8.0-11.0); Monocytes % 9.7; Neutrophils % 81.5; Nucleated RBC 0 %; Platelet Count 297 10^3/uL (130-400); RBC 4.36 10^6/uL (3.93-5.22); RDW-SD 56.3 fL
[2021-09-09 14:34] LABS: Anion Gap 3.8 mmol/L (3-11); BUN 13 mg/dL (7-18); CO2 36.2 mmol/L (21.0-32.0); CREATININE 0.8 mg/dL (0.55-1.02); Calcium 8.9 mg/dL (8.5-10.1); Chloride 91 mmol/L (98-107); Glucose 101 mg/dL (74-106); Potassium 4.4 mmol/L (3.5-5.1); Sodium 131 mmol/L (136-145)
[2021-09-09 15:47] LABS: NT-proBNP 1363 pg/mL (<300)
== END 2021-09-09 19:06 | disposition home or self-care (01) ==
LOC: NCHCN 19:05
PROVIDERS: PCP Family Medicine; Visit Provider Family Medicine
DX: D50.0 Iron deficiency anemia secondary to blood loss (chronic) (principal); I50.9 Heart failure, unspecified; J44.9 Chronic obstructive pulmonary disease, unspecified
CPT/HCPCS: 80048; 83880; 85025

== ENCOUNTER 2021-10-18 14:46 | Outpatient (REF) | payer MEDICARE, SELFPAY ==
[2021-10-18 17:55] LABS: HCT 34.9 % (36.0-46.0); HGB 9.9 g/dL (11.2-15.7); MCH 22.5 pg (27.0-33.0); MCHC 28.4 % (32.0-36.0); MCV 79.3 fL (80-95); MPV 9.5 fL (8.0-11.0); Platelet Count 318 10^3/uL (130-400); RDW 16.5 % (11.7-14.6); RDW-SD 47.8 fL; WBC 6.12 10^3/uL (4.4-10.8)
[2021-10-18 18:13] LABS: Anion Gap 6.7 mmol/L (3-11); BUN 14 mg/dL (7-18); CO2 30.3 mmol/L (21.0-32.0); CREATININE 0.8 mg/dL (0.55-1.02); Calcium 8.2 mg/dL (8.5-10.1); Chloride 93 mmol/L (98-107); Glucose 91 mg/dL (74-106); Magnesium 1.8 mg/dL (1.8-2.4); Potassium 5.4 mmol/L (3.5-5.1); Sodium 130 mmol/L (136-145); Vitamin B12 193 pg/mL (193-986)
== END 2021-10-18 14:47 | disposition home or self-care (01) ==
LOC: NCHCN 14:46
PROVIDERS: PCP Family Medicine; Visit Provider Family Medicine
DX: I50.9 Heart failure, unspecified (principal); G62.9 Polyneuropathy, unspecified; I10 Essential (primary) hypertension; E87.1 Hypo-osmolality and hyponatremia; D50.0 Iron deficiency anemia secondary to blood loss (chronic)
CPT/HCPCS: 80048; 85027; 82607; 83735

== ENCOUNTER 2021-10-21 00:40 | Outpatient (CLI) | payer MEDICARE, SELFPAY ==
--- NOTE | 2021-10-21 07:15 | DI.US_ITS ---
Exam(s) US PELVIS TRANSVAGINAL EXAM: US PELVIS TRANSVAGINAL CLINICAL HISTORY: f/u on submucosal fibroid after UA embolization,automotive fuel systems converter bleeding,n95.0,n85.8, TECHNIQUE: Ultrasound of the pelvis was performed both transabdominal and transvaginal. COMPARISON: CT CT CHEST PE CTA from 07/25/2021 FINDINGS: UTERUS: Nongravid and anteverted Measures 6 cm length x 13 cm AP x 13 cm wide. There is interval arch fibroid again noted. This has increased when compared to the prior study pres ently measuring 12 x 12 x 12 cm.Also calcification right-side upper uterine body measuring 2.5 x 2.6 x 3.3 cm. This is also probably a fibroid with some calcifications therein. Endometrium cannot be assessed as it is obscured by the large fibroid. There is no obvious fluid in the endometrial canal. CERVIX: There are no obvious nabothian cysts. RIGHT OVARY: Not able to be seen LEFT OVARY: Also not able to be seen. CUL-DE-SAC: No free fluid evident. IMPRESSION: 1. Large uterine fibroid measuring 12 x 12 x 12 cm exhibiting further increased in size. There is al so a smaller partially calcified fibroid on the right side measuring 2.5 x 2.6 x 3.3 cm 2. Ovaries are not able to be seen, being obscured by the large fibroid. 3. No free fluid evident in the adnexal regions and cul-de-sac. DATA REPOSITORY:
== END 2021-10-21 01:00 ==
LOC: DI 00:40
PROVIDERS: PCP Family Medicine; Visit Provider Obstetrics & Gynecology Gynecology
DX: N95.0 Postmenopausal bleeding (principal); N85.8 Other specified noninflammatory disorders of uterus; D25.9 Leiomyoma of uterus, unspecified
CPT/HCPCS: 76830; 76856

== ENCOUNTER 2021-11-23 00:13 | Outpatient (CLI) | payer MEDICARE, SELFPAY ==
--- NOTE | 2021-11-23 | DI.US_ITS ---
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 CONTRAST MATERIAL: None COMPARISON: No exams were available for comparison FINDINGS: Ultrasound was provided for Dr. Gray for guidance with needle placement for pain clinic injection. Please see procedure note for details. DATA REPOSITORY:
[2021-11-23 12:52] VITALS: BP 136/71; PULSE 78; RESP 22; TEMP 36.9; O2SAT 95
[2021-11-23 13:32] VITALS: PULSE 73; O2SAT 99
--- NOTE | 2021-11-23 13:32 | PDOC.PAIN_ITS ---
Pain Clinic Procedure Note Procedure Note Procedure Note: ULTRASOUND GUIDED right trapezius trigger point INJECTIONS Pre-Procedural Evaluation: Deepthi Hernandez has been referred to the [facility] for an Ultrasound Guided right trapzius muscle trigger point injection for a chief complaint of right shoulder pain. Pre-procedure Pain Score: 7/10 Patient was interviewed and the medical record reviewed. There were no medical, pharmacologic, radiographic, or other structural contraindications to preforming an ultrasound guided injection. Risks and expected side effects as well as potential benefits of the procedure were reviewed. The patient consent form was signed and witnessed. Standard time-out procedure was performed. The use of direct ultrasound visualization of the needle (rather than a non- guided injection) was required to increase patient safety by excluding inadvertent intramuscular, intratendinous, or intraneural needle placement and minimizing bleeding by avoiding osteochondral or vascular injury from the needle. Additionally, the increased accuracy of placement may increase clinical effectiveness and will allow higher diagnostic specificity when evaluating effectiveness of this injection. Procedure Description: The patient was placed in the seated position and automated blood pressure cuff and pulse oximeter applied for monitoring during the procedure and recorded in the medical record. Pre-injection ultrasound scanning of the area of interest was performed using a linear transducer, identifying relevant anatomy, landmarks, and neurovascular structures allowing for optimal needle path. The site was then prepared in the usual sterile fashion, using thorough Chlorhexadine preparation of the skin and sterile draping. The same ultrasound transducer was then passed into the sterile field using sterile probe cover and sterile ultrasound gel. The injection target was again visualized. Skin and subcutaneous tissues were anesthetized with 2 mL of 1% Lidocaine. A 21G 3.5 Pajunk ultrasound needle was placed under live ultrasound guidance, using an in-plane approach, to the target area. After visualization of the needle tip at the target area, 1 cc of Depomedrol (40mg/cc) was delivered after negative aspiration for blood. This was followed by 5 cc of 1% Lidocaine. Approximately 15 passes were made through the trapezius muscle fascia. Ultrasound images were captured and stored for documentation purposes. Post-procedure Pain Score:0/10 Vital signs were stable throughout the procedure and were as recorded in the docflowsheet by the nursing staff. Follow up plans and appointments were discussed with the patient.Post procedure instruction was given as documented in nursing documentation and having met discharge criteria, they were discharged from the [facility]. COMMENTS: This procedure can be completed up to 4 times per 12 months if helpful. Audie Gray DO, MPH [facility]
[2021-11-23] MEDS: methylPREDNISolone ACETATE 40 MG/ML VIAL IJ (13:40)
[2021-11-23] MEDS: Lidocaine 1% Pres-Free 5 ML VIAL IJ (13:51)
== END 2021-11-23 00:33 ==
PROVIDERS: PCP Family Medicine; Visit Provider Preventive Medicine Occupational Medicine
DX: M25.511 Pain in right shoulder (principal)
CPT/HCPCS: 20611; 76942; J1030

== ENCOUNTER 2021-12-08 10:17 | Observation (INO) | payer MEDICARE, SELFPAY ==
[2021-12-08] VITALS (34 sets, daily range): BP systolic 103–164; BP diastolic 59–95; PULSE 62–96; RESP 15–29; TEMP 36.7–37.2; O2SAT 86–100
--- NOTE | 2021-12-08 10:15 | RT.EKG_ITS ---
APPROVED REPORT Exam: Resting ECG Reason for Exam: short of breath Patient Location: E HR:64 bpm ECG Measurements Heart Rate 64 AXIS GA 203 P 68 QRSd 86 QRS -67 QT 386 T [id number] QTc 400 Conclusion Sinus rhythm...normal P axis, V-rate 60- 99 LAD, consider left anterior fascicular block...axis(240,-40), S>R II III aVF. Sinus. No STEMI. I have reviewed and interpreted ECG and agree with software generated interpretation.
--- NOTE | 2021-12-08 10:15 | DI.RAD_ITS ---
Exam(s) XR PORTABLE CHEST AP EXAM: XR PORTABLE CHEST AP CLINICAL HISTORY: shortness of breath TECHNIQUE: 2D digital imaging was performed of the chest. One image was obtained. An AP view was ob tained. COMPARISON: CR XR PORTABLE CHEST AP from 07/25/2021 FINDINGS: MEDIASTINUM: Normal. HEART: Normal. PULMONARY VASCULATURE: Normal. LUNGS: Clear. PLEURAL SPACE: No pleural effusion or pneumothorax. BONE:Within normal limits for the patient's age. OTHER FINDINGS:Normal. IMPRESSION: No acute pulmonary findings. DATA REPOSITORY: RADIATION DOSE DELIVERED:
--- NOTE | 2021-12-08 10:21 | ED.GENADUL_ITS ---
Discharge Plan Disposition Patient Disposition: [facility] INPATIENT Condition: Stable Discharge Details Clinical Impression: Acute exacerbation of chronic obstructive pulmonary disease, Hyponatremia Admit Date/Time: 12/08/21 13:05 Admit Provider: Laura Mars Attending Provider: Laura Mars Primary Care Provider: Hardy Eagle ED Provider: Sugey Ann Discharge Data Discharge Date/Time-TO BE ENTERED AT DEPARTURE: 12/08/21 14:45 Medical Decision Making 1030 -- 61-year-old female with a history of COPD chronically on 2 L of nasal cannula oxygen, CHF, alcoholism, alcoholic gastritis, pulmonary hypertension, cardiomyopathy, paroxysmal SVT, PUD presents for shortness of breath for the past 2 days, worse today. Vitals within normal limits. Oxygen saturation 97% on her baseline 2 L. She is speaking in 3-4 word sentences with diminished breath sounds and scattered wheezing throughout. Differential diagnosis includes acute COPD exacerbation, acute CHF exacerbation, pneumonia, acute bronchitis, COVID-19. History and presentation does not appear consistent with acs, PE or dissection. Will place an IV, obtain screening labs, portable chest x-ray, COVID swab and give duo nebs, IV steroids and reassess. EKG notes a rate of 64, sinus, no STEMI. 1125 --patient reassessed and she states she feels better. Breath sounds improved throughout. Oxygen saturation 96% on her baseline 2 L. Labs reviewed. Normal white blood cell count. Sodium 123, she has chronic hyponatremia and was 130 on last results. She states she currently does not drink alcohol. Troponin negative. BNP 493. Covid negative. CXR negative. 1230 --patient reassessed and she feels better but is complaining of feeling lightheaded. We will give gentle fluid hydration. Patient states she is concerned of going home if her symptoms worsen. Case discussed with hospitalist who accepts patient for admission. 1320 --patient more short of breath after eating. Oxygen saturation 88% on 2 L. Increased to 3 L and O2 sat 94%. She is declining any additional neb treatments at this time. Medical Records Medical records reviewed: Yes I reviewed the patient's medical records. Imaging Data Radiologic Study: Radiologist's impression: ?XR PORTABLE CHEST AP CLINICAL HISTORY:? shortness of breath TECHNIQUE:? 2D digital imaging was performed of the chest. One image was obtained.? An AP view was obtained. COMPARISON:? CR XR PORTABLE CHEST AP from 07/25/2021 FINDINGS: MEDIASTINUM: Normal.? HEART: Normal. PULMONARY VASCULATURE: Normal. LUNGS: Clear.? PLEURAL SPACE: No pleural effusion or pneumothorax. BONE:Within normal limits for the patient's age. OTHER FINDINGS:Normal.? IMPRESSION: No acute pulmonary findings. Lab Data Lab results reviewed: Yes I reviewed the patient's lab results. Labs: Laboratory Tests Range/Units 12/08/21 12/08/21 12/08/21 10:40 10:45 10:45 WBC (4.4-10.8) 10^3/uL 8.87 RBC (3.93-5.22) 10^6/uL 4.89 Hgb (11.2-15.7) g/dL 11.6 Hct (36.0-46.0) % 39.3 MCV (80-95) fL 80 MCH (27.0-33.0) pg 23.7 L MCHC (32.0-36.0) % 29.5 L RDW (11.7-14.6) % 15.6 H Plt Count (130-400) 10^3/uL 248 MPV (8.0-11.0) fL 8.6 Immature Gran % 0.3 Neutrophils % 82.8 Lymphocytes % 6.7 Monocytes % 9.7 Eosinophils % 0.3 Basophils % 0.2 Nucleated RBC % (0.0-0.3) % 0.0 Absolute Neutrophils (1.2-6.7) 10^3/uL 7.34 H Absolute Lymphocytes (1.2-3.4) 10^3/uL 0.59 L Absolute Monocytes (0.1-0.8) 10^3/uL 0.86 H Absolute Eosinophils (0.0-0.7) 10^3/uL 0.03 Absolute Basophils (0.0-0.2) 10^3/uL 0.02 Sodium (136-145) mmol/L 123 L* Potassium (3.5-5.1) mmol/L 4.1 Chloride (98-107) mmol/L 84 L Carbon Dioxide (21.0-32.0) mmol/L 38.0 H Anion Gap (3-11) mmol/L 1.0 L BUN (7-18) mg/dL 16 Creatinine (0.55-1.02) mg/dL 1.0 Estimated GFR/1.73 m2 (mL/min/1.73m2) 56.00 Glucose (74-106) mg/dL 118 H Calcium (8.5-10.1) mg/dL 9.3 Magnesium (1.8-2.4) mg/dL 2.1 Total Bilirubin (0.2-1.0) mg/dL 0.4 AST (15-37) U/L 14 L ALT (14-59) U/L 22 Alkaline Phosphatase (46-116) U/L 77 Troponin I (<or=60) ng/L < 50 NT-Pro-B Natriuret Pep (<300) pg/mL Total Protein (6.4-8.2) g/dL 7.2 Albumin (3.4-5.0) g/dL 3.7 COVID-19 Source Nasal/Nares SARS-CoV-2 (PCR) (Negative) Negative Range/Units 12/08/21 10:45 WBC (4.4-10.8) 10^3/uL RBC (3.93-5.22) 10^6/uL Hgb (11.2-15.7) g/dL Hct (36.0-46.0) % MCV (80-95) fL MCH (27.0-33.0) pg MCHC (32.0-36.0) % RDW (11.7-14.6) % Plt Count (130-400) 10^3/uL MPV (8.0-11.0) fL Immature Gran % Neutrophils % Lymphocytes % Monocytes % Eosinophils % Basophils % Nucleated RBC % (0.0-0.3) % Absolute Neutrophils (1.2-6.7) 10^3/uL Absolute Lymphocytes (1.2-3.4) 10^3/uL Absolute Monocytes (0.1-0.8) 10^3/uL Absolute Eosinophils (0.0-0.7) 10^3/uL Absolute Basophils (0.0-0.2) 10^3/uL Sodium (136-145) mmol/L Potassium (3.5-5.1) mmol/L Chloride (98-107) mmol/L Carbon Dioxide (21.0-32.0) mmol/L Anion Gap (3-11) mmol/L BUN (7-18) mg/dL Creatinine (0.55-1.02) mg/dL Estimated GFR/1.73 m2 (mL/min/1.73m2) Glucose (74-106) mg/dL Calcium (8.5-10.1) mg/dL Magnesium (1.8-2.4) mg/dL Total Bilirubin (0.2-1.0) mg/dL AST (15-37) U/L ALT (14-59) U/L Alkaline Phosphatase (46-116) U/L Troponin I (<or=60) ng/L NT-Pro-B Natriuret Pep (<300) pg/mL 493 H Total Protein (6.4-8.2) g/dL Albumin (3.4-5.0) g/dL COVID-19 Source SARS-CoV-2 (PCR) (Negative) ECG Data Attestation: I personally reviewed and interpreted this ECG (s) as follows: Interpretation: Rate of 64, sinus, no STEMI. HPI General Mode of arrival: ambulatory . Date/Time Provider Initiated Documentation: 12/08/21 10:18 . Limitations to Documentation: no limitations . Information obtained by: patient . HPI Narrative: Patient is a 61-year-old female with a history of COPD chronically on 2 L of nasal cannula oxygen, CHF, cardiomyopathy, paroxysmal SVT, alcohol abuse, pulmonary hypertension, PUD who presents for shortness of breath for the past few days, worse this morning. She admits to mostly a dry cough. She denies any fever, chest pain vomiting or diarrhea. She states she is vaccinated for COVID and thinks she may have received a booster but cannot remember. Related Data Home Medications Medication Instructions Recorded Confirmed fluoxetine 20 mg capsule 20 mg PO DAILY 01/14/19 12/08/21 acetaminophen 325 mg tablet 650 mg PO PRN PRN 01/21/19 12/08/21 multivitamin 1 tab DAILY 11/17/19 12/08/21 tiotropium 2.5 mcg-olodaterol 2.5 2 puff inhalation DAILY 09/15/20 12/08/21 mcg/actuation mist for inhalation (Stiolto Respimat) fluticasone propionate 220 1 puff inhalation BID 07/26/21 12/08/21 mcg/actuation HFA aerosol inhaler (Flovent HFA) lorazepam 0.5 mg tablet 0.5 mg PO DAILY PRN PRN 07/26/21 12/08/21 nystatin 100,000 unit/gram topical 1 applic topical DIRECTED 07/26/21 12/08/21 powder (Nystop) ipratropium bromide 0.02 % 0.25 mg (1.25 mL) UPD BID #60 mL 07/29/21 11/23/21 solution for inhalation ipratropium bromide 0.02 % 0.5 mg (2.5 mL) UPD Q4H PRN PRN 07/29/21 09/03/21 solution for inhalation #150 mL levalbuterol HCl 1.25 mg/3 mL 1.25 mg (3 mL) UPD BID #60 mL 07/29/21 12/08/21 solution for nebulization levalbuterol HCl 1.25 mg/3 mL 1.25 mg (3 mL) UPD Q4H PRN PRN #90 07/29/21 12/08/21 solution for nebulization mL levalbuterol tartrate 45 2 puff inhalation Q4H PRN PRN #15 07/29/21 12/08/21 mcg/actuation aerosol inhaler grams metoprolol succinate 100 mg 200 mg PO HS #60 tabs 07/29/21 12/08/21 tablet,extended release 24 hr furosemide 40 mg tablet 40 mg PO BID #60 tabs 07/30/21 12/08/21 norethindrone acetate 5 mg tablet 10 mg PO BID #240 tabs 11/14/21 12/08/21 Previous Rx's Medication Instructions Recorded ipratropium bromide 0.02 % 0.25 mg (1.25 mL) UPD BID #60 mL 07/29/21 solution for inhalation ipratropium bromide 0.02 % 0.5 mg (2.5 mL) UPD Q4H PRN PRN 07/29/21 solution for inhalation #150 mL levalbuterol HCl 1.25 mg/3 mL 1.25 mg (3 mL) UPD BID #60 mL 07/29/21 solution for nebulization levalbuterol HCl 1.25 mg/3 mL 1.25 mg (3 mL) UPD Q4H PRN PRN #90 07/29/21 solution for nebulization mL levalbuterol tartrate 45 2 puff inhalation Q4H PRN PRN #15 07/29/21 mcg/actuation aerosol inhaler grams metoprolol succinate 100 mg 200 mg PO HS #60 tabs 07/29/21 tablet,extended release 24 hr furosemide 40 mg tablet 40 mg PO BID #60 tabs 07/30/21 norethindrone acetate 5 mg tablet 10 mg PO BID #240 tabs 11/14/21 Allergies Allergy/AdvReac Type Severity Reaction Status Date / Time No Known Allergies Allergy Verified 12/08/21 10:32 General Stated Complaint: SOB MAYA: 2 Review of Systems All systems reviewed & are unremarkable except as noted in HPI and below Constitutional Constitutional: Denies chills, Denies excessive sweating, Denies fatigue, Denies fever(s), Denies weakness and Denies weight loss Eyes Eyes: Reports system reviewed and no additional complaints, except as documented and Denies blurry vision ENT Ears, Nose, Mouth, and Throat: Denies vertigo, Denies dizziness, Denies otalgia, Denies nasal congestion, Denies sore throat and Denies throat swelling Cardiovascular Cardiovascular: Denies chest pain, Denies syncope, Denies rapid heart rate and Reports dyspnea Respiratory Respiratory: Denies chest congestion, Denies cough, Denies pain on inspiration and Reports dyspnea Gastrointestinal Gastrointestinal: Denies abdominal pain, Denies diarrhea and Denies vomiting Genitourinary Genitourinary: Denies hematuria, Denies dysuria and Denies flank pain Musculoskeletal Musculoskeletal: Denies back pain and Denies joint swelling Integumentary/Breasts Skin/Breast: Denies lesions and Denies rash Neurologic Neurologic: Denies behavioral changes, Denies confusion, Denies vertigo, Denies dizziness, Denies syncope, Denies localized weakness and Denies weakness Psychiatric Psychiatric: Denies behavioral changes, Denies confusion and Denies depression Endocrine Endocrine: Denies excessive sweating and Denies fatigue Hematologic/Lymphatic Hematologic/Lymphatic: Denies easy bruising and Denies lymphadenopathy Allergic/Immunologic Allergic/Immunologic: Denies throat swelling PFSH All Active Problems Acute exacerbation of chronic obstructive pulmonary disease (Acute) Hyponatremia (Acute) Pulmonary hypertension (Acute) Hypoxia (Chronic) (HFpEF) heart failure with preserved ejection fraction (Chronic) Anxiety (Chronic) Dyspnea (Acute) Uterine mass (Acute) Not candidate for surgery at [facility] or [facility].08/10/21. Had partial uterine artery embolization. Unable to complete 2/2 hypoxia. Acute anemia (Acute) Postmenopausal bleeding (Acute) Dyspnea on exertion (Acute) S/P left inguinal hernia repair (Acute) 01/21/19 Dr Odette Cormier, left Left inguinal hernia (Acute) Incarcerated inguinal hernia, unilateral (Acute) Small bowel obstruction (Acute) Dehydration (Acute) Hypertension (Chronic) Change in mental status (Acute) Cardiomyopathy (Acute) PUD (peptic ulcer disease) (Acute) Iron deficiency anemia due to chronic blood loss (Chronic) Chronic bronchitis with COPD (chronic obstructive pulmonary disease) (Acute) Alcohol abuse (Acute) COPD (chronic obstructive pulmonary disease) (Chronic) Medical History Alcoholic gastritis Former smoker Hyponatremia Mood disorder with psychosis Neck pain on right side Pneumonia Post-menopausal bleeding Pulmonary hypertension Respiratory failure with hypoxia Surgical History EGD - MAC (07/04/16) Social History Smoking/Tobacco Use Status: Former Tobacco Use Quit Date: 01/13/15 Smoking risk assessment performed?: Yes Alcohol Intake: former Drug use: Never Substance use type: does not use Do you feel safe at home: Yes Do you feel safe in your relationship?: Yes Additional Social history: Unable to assess [place] Exam Const General: cooperative Orientation: alert, awake and oriented x3 HENMT Head: normal to inspection Ears: hearing grossly normal bilaterally and external ears normal General nose exam: external nose normal Face and sinus: normal facial exam Eyes General: appearance normal, both eyes and all related structures Eyelids: eyelids normal Pupils: PERRL EOM: EOM intact bilaterally Neck Neck: normal visual inspection Lymphatic: no lymphadenopathy noted Chest Chest: normal inspection of the chest Resp Effort & Inspection: normal respiratory effort and not able to speak in complete sentences (3-4 word sentences) Auscultation: diminished lung sounds bilaterally throughout and wheezes scattered wheezes Cardio Rate: regular rate Rhythm: regular rhythm GI Inspection: normal to inspection Palpation: soft, not firm, no guarding, no hepatosplenomegaly, no masses and nontender Auscultation: normal bowel sounds Back/Spine/Pelvis Back: no CVA tenderness Skin General skin exam: no rashes or lesions noted Neuro General: patient alert and patient awake Cognition: normal cognition Speech: speech normal Gait: normal gait Motor: muscle tone normal throughout Sensory Exam: no sensory deficits noted Extrem General: normal to inspection, full ROM, capillary refill normal and no edema Psych Appearance: grossly normal Mental Status: mental status grossly normal Speech and Movement: speech and movement normal Affect: normal affect Thought Process: normal
[2021-12-08] MEDS: Albuterol/Ipratropium 3 ML UPD VIAL UPD (10:47)
[2021-12-08 10:53] LABS: Source Nasal/Nares
[2021-12-08] MEDS: methylPREDNISolone SUCC 125 MG VIAL IVP (10:54)
[2021-12-08] MEDS: Ondansetron 4 MG/2 ML VIAL IVP (10:54)
[2021-12-08 10:56] LABS: Abs Immature Grans 0.03 10^3/uL (0.0-0.06); Absolute Basophil Count 0.02 10^3/uL (0.0-0.2); Absolute Eosinophil Count 0.03 10^3/uL (0.0-0.7); Absolute Lymphocyte Count 0.59 10^3/uL (1.2-3.4); Absolute Monocyte Count 0.86 10^3/uL (0.1-0.8); Absolute Neutrophil Count 7.34 10^3/uL (1.2-6.7); Basophils % 0.2; Eosinophils % 0.3; HCT 39.3 % (36.0-46.0); HGB 11.6 g/dL (11.2-15.7); Immature Grans % 0.3; Lymphocytes % 6.7; MCH 23.7 pg (27.0-33.0); MCHC 29.5 % (32.0-36.0); MCV 80 fL (80-95); MPV 8.6 fL (8.0-11.0); Monocytes % 9.7; Neutrophils % 82.8; Platelet Count 248 10^3/uL (130-400); RBC 4.89 10^6/uL (3.93-5.22); RDW 15.6 % (11.7-14.6); RDW-SD 45.6 fL; WBC 8.87 10^3/uL (4.4-10.8)
[2021-12-08 11:13] LABS: ALT 22 U/L (14-59); AST 14 U/L (15-37); Albumin 3.7 g/dL (3.4-5.0); Alkaline Phosphatase 77 U/L (46-116); BUN 16 mg/dL (7-18); Bilirubin, Total 0.4 mg/dL (0.2-1.0); Calcium 9.3 mg/dL (8.5-10.1); Chloride 84 mmol/L (98-107); Glucose 118 mg/dL (74-106); Magnesium 2.1 mg/dL (1.8-2.4); Potassium 4.1 mmol/L (3.5-5.1); Total Protein 7.2 g/dL (6.4-8.2); Troponin I < 50 ng/L (<or=60)
[2021-12-08 11:19] LABS: NT-proBNP 493 pg/mL (<300)
[2021-12-08 11:21] LABS: Sodium 123 mmol/L (136-145)
[2021-12-08 11:45] LABS: COVID-19 PCR Negative (Negative)
[2021-12-08] MEDS: Albuterol 2.5 MG/3 ML INH SOLN VIAL 5 MG UPD (12:03)
[2021-12-08 13:11] LABS: Lab Add On Test DONE
[2021-12-08 13:47] LABS: Procalcitonin < 0.1 ng/mL
[2021-12-08] MEDS: Normal Saline 500 ML IV (14:14)
[2021-12-08] MEDS: Enoxaparin 40 MG/0.4 ML SYR SC (16:10)
[2021-12-08 17:13] LABS: Anion Gap 2.4 mmol/L (3-11); BUN 15 mg/dL (7-18); CO2 35.6 mmol/L (21.0-32.0); CREATININE 0.9 mg/dL (0.55-1.02); Calcium 9.4 mg/dL (8.5-10.1); Chloride 86 mmol/L (98-107); Glucose 161 mg/dL (74-106); Potassium 4.3 mmol/L (3.5-5.1)
--- NOTE | 2021-12-08 17:17 | W.PM.HP.N ---
Date of service: 12/08/21 Time of Service: 17:00 Assessment and Plan Assessment and plan (1) Acute exacerbation of chronic obstructive pulmonary disease: Start date: 12/08/21 Start time: 16:29 Status: Acute Assessment and plan: No evidence of bacterial infection and Covid 19 is negative. Prednisone, prn nebs (levalbuterol given past hx of psvt) and symbicort Continue oxygen @ 2 LPM NC keep SPO2 >88% (2) Hyponatremia: Status: Acute Assessment and plan: 4 year history of chronic hyponatremia. Will monitor (3) Anxiety: Status: Chronic Assessment and plan: Continue small dose of lorazepam prn; encourage meditation, distraction (4) Dyspnea: Status: Acute Assessment and plan: as above (5) Hypoxia: Status: Chronic Assessment and plan: The patient is on 2 lpm oxygen via n/c continuously at home; plan for exercise oximetry before discharge History of Present Illness Consults Consult date: 12/08/21 Requesting physician: Chelsey Marrero Narrative: 61-year-old female with a history of COPD chronically on 2 L of nasal cannula oxygen at home, CHF, alcoholism, alcoholic gastritis, pulmonary hypertension, cardiomyopathy, paroxysmal SVT, PUD. She presents to the ED with shortness of breath for the past 2 days, worse today. She reports having a dry cough. She denies nausea, vomiting, diarrhea, fever, or chest pain. Oxygen saturation 97% on her baseline 2 L.? She speaks in full sentences. Her breath sounds are diminished and scattered expiratory wheezing throughout.?EKG in ED NSR. Denies palpitations. She was given nebulizers in the ED and improved. She has chronic hyponatremia since about 2018. She denies smoking and alcohol for the past 8 years. Review of Systems All systems reviewed & are unremarkable except as noted in HPI and below PFSH All Active Problems Acute exacerbation of chronic obstructive pulmonary disease (Acute) Hyponatremia (Acute) Pulmonary hypertension (Acute) Hypoxia (Chronic) (HFpEF) heart failure with preserved ejection fraction (Chronic) Anxiety (Chronic) Dyspnea (Acute) Uterine mass (Acute) Not candidate for surgery at [facility] or [facility].08/10/21. Had partial uterine artery embolization. Unable to complete 2/2 hypoxia. Acute anemia (Acute) Postmenopausal bleeding (Acute) Dyspnea on exertion (Acute) S/P left inguinal hernia repair (Acute) 01/21/19 Dr Odette Cormier, left Left inguinal hernia (Acute) Incarcerated inguinal hernia, unilateral (Acute) Small bowel obstruction (Acute) Dehydration (Acute) Hypertension (Chronic) Change in mental status (Acute) Cardiomyopathy (Acute) PUD (peptic ulcer disease) (Acute) Iron deficiency anemia due to chronic blood loss (Chronic) Chronic bronchitis with COPD (chronic obstructive pulmonary disease) (Acute) Alcohol abuse (Acute) COPD (chronic obstructive pulmonary disease) (Chronic) Medical History Alcoholic gastritis Former smoker Hyponatremia Mood disorder with psychosis Neck pain on right side Pneumonia Post-menopausal bleeding Pulmonary hypertension Respiratory failure with hypoxia Surgical History EGD - MAC (07/04/16) Social History Smoking/Tobacco Use Status: Former Tobacco Use Quit Date: 01/13/15 Smoking risk assessment performed?: Yes Alcohol Intake: former Drug use: Never Substance use type: does not use Do you feel safe at home: Yes Do you feel safe in your relationship?: Yes Additional Social history: Unable to assess [facility] Allergies and Home Medications Allergies Allergy/AdvReac Type Severity Reaction Status Date / Time No Known Allergies Allergy Verified 12/08/21 10:32 Home Medications Medication Instructions Recorded Confirmed Type fluoxetine 20 mg capsule 20 mg PO DAILY 01/14/19 12/08/21 History acetaminophen 325 mg tablet 650 mg PO PRN PRN 01/21/19 12/08/21 History multivitamin 1 tab DAILY 11/17/19 12/08/21 History tiotropium 2.5 mcg-olodaterol 2.5 2 puff inhalation DAILY 09/15/20 12/08/21 History mcg/actuation mist for inhalation (Stiolto Respimat) fluticasone propionate 220 1 puff inhalation BID 07/26/21 12/08/21 History mcg/actuation HFA aerosol inhaler (Flovent HFA) lorazepam 0.5 mg tablet 0.5 mg PO DAILY PRN PRN 07/26/21 12/08/21 History nystatin 100,000 unit/gram topical 1 applic topical DIRECTED 07/26/21 12/08/21 History powder (Nystop) ipratropium bromide 0.02 % 0.25 mg (1.25 mL) UPD BID #60 mL 07/29/21 11/23/21 Rx solution for inhalation ipratropium bromide 0.02 % 0.5 mg (2.5 mL) UPD Q4H PRN PRN 07/29/21 09/03/21 Rx solution for inhalation #150 mL levalbuterol HCl 1.25 mg/3 mL 1.25 mg (3 mL) UPD BID #60 mL 07/29/21 12/08/21 Rx solution for nebulization levalbuterol HCl 1.25 mg/3 mL 1.25 mg (3 mL) UPD Q4H PRN PRN #90 07/29/21 12/08/21 Rx solution for nebulization mL levalbuterol tartrate 45 2 puff inhalation Q4H PRN PRN #15 07/29/21 12/08/21 Rx mcg/actuation aerosol inhaler grams metoprolol succinate 100 mg 200 mg PO HS #60 tabs 07/29/21 12/08/21 Rx tablet,extended release 24 hr furosemide 40 mg tablet 40 mg PO BID #60 tabs 07/30/21 12/08/21 Rx norethindrone acetate 5 mg tablet 10 mg PO BID #240 tabs 11/14/21 12/08/21 Rx Exam Narrative Exam Narrative: General: [id number] year old female who appears exhausted, A&Ox3 HEENT: EOMI, MMM Heart: RRR Lungs: expiratory wheezing throughout Abdomen: soft, full, nontender Extremities: no edema BLEs Results Labs Result diagrams: 12/09/21 06:55 12/09/21 06:55 Labs: Laboratory Results - last 24 hr 12/08/21 12/08/21 12/08/21 10:40 10:45 10:45 WBC 8.87 RBC 4.89 Hgb 11.6 Hct 39.3 MCV 80 MCH 23.7 L MCHC 29.5 L RDW 15.6 H Plt Count 248 MPV 8.6 Immature Gran % 0.3 Neutrophils % 82.8 Lymphocytes % 6.7 Monocytes % 9.7 Eosinophils % 0.3 Basophils % 0.2 Nucleated RBC % 0.0 Absolute Neutrophils 7.34 H Absolute Lymphocytes 0.59 L Absolute Monocytes 0.86 H Absolute Eosinophils 0.03 Absolute Basophils 0.02 Sodium 123 L* Potassium 4.1 Chloride 84 L Carbon Dioxide 38.0 H Anion Gap 1.0 L BUN 16 Creatinine 1.0 Estimated GFR/1.73 m2 56.00 Glucose 118 H Calcium 9.3 Magnesium 2.1 Total Bilirubin 0.4 AST 14 L ALT 22 Alkaline Phosphatase 77 Troponin I < 50 NT-Pro-B Natriuret Pep Total Protein 7.2 Albumin 3.7 Procalcitonin COVID-19 Source Nasal/Nares SARS-CoV-2 (PCR) Negative Add-On Test Request 12/08/21 12/08/21 12/08/21 10:45 10:45 Unknown WBC RBC Hgb Hct MCV MCH MCHC RDW Plt Count MPV Immature Gran % Neutrophils % Lymphocytes % Monocytes % Eosinophils % Basophils % Nucleated RBC % Absolute Neutrophils Absolute Lymphocytes Absolute Monocytes Absolute Eosinophils Absolute Basophils Sodium Potassium Chloride Carbon Dioxide Anion Gap BUN Creatinine Estimated GFR/1.73 m2 Glucose Calcium Magnesium Total Bilirubin AST ALT Alkaline Phosphatase Troponin I NT-Pro-B Natriuret Pep 493 H Total Protein Albumin Procalcitonin < 0.1 COVID-19 Source SARS-CoV-2 (PCR) Add-On Test Request DONE Last Vital Signs Temp 37.2 C 12/08/21 16:19 Pulse 88 12/08/21 16:19 Resp 16 12/08/21 16:19 BP 137/88 12/08/21 16:19 Pulse Ox 91 L 12/08/21 16:19
[2021-12-08 17:19] LABS: Sodium 124 mmol/L (136-145)
[2021-12-08] MEDS: Acetaminophen 325 MG TAB PO (18:54)
[2021-12-08] MEDS: Ipratropium 0.5 MG/2.5 ML UPD VIAL UPD ×2 (19:02→23:39)
[2021-12-08] MEDS: Norethindrone 5 MG TAB 10 MG PO (19:26)
[2021-12-08] MEDS: Budesonide/Formoterol 80/4.5 6.9 GM 60 PUFF INH IH (19:27)
[2021-12-08] MEDS: Normal Saline Flush 10 ML SYR IVP (19:30)
[2021-12-08] MEDS: Normal Saline 1,000 ML 125 ML IV (19:30)
[2021-12-08] MEDS: Mylanta Suspension 30 ML CUP PO (20:36)
[2021-12-08 21:12] LABS: Sodium 122 mmol/L (136-145)
[2021-12-08] MEDS: Metoprolol CR 100 MG TABCR 200 MG PO (23:37)
[2021-12-09] MEDS: LORazepam 0.5 MG TAB PO (00:25)
[2021-12-09 00:40] LABS: Sodium 122 mmol/L (136-145)
[2021-12-09] MEDS: Normal Saline 1,000 ML 125 ML IV (03:08)
[2021-12-09 04:00] VITALS: BP 149/92; PULSE 90; RESP 90; TEMP 36.6
[2021-12-09 04:32] LABS: Sodium, Urine 61 mmol/L
[2021-12-09 07:32] VITALS: BP 163/96; PULSE 71; RESP 17; TEMP 36.4; O2SAT 95
[2021-12-09 07:34] LABS: Abs Immature Grans 0.04 10^3/uL (0.0-0.06); Absolute Basophil Count 0.01 10^3/uL (0.0-0.2); Absolute Lymphocyte Count 0.49 10^3/uL (1.2-3.4); Absolute Monocyte Count 0.77 10^3/uL (0.1-0.8); Absolute Neutrophil Count 8.27 10^3/uL (1.2-6.7); Basophils % 0.1; Immature Grans % 0.4; Lymphocytes % 5.1; MCH 24.9 pg (27.0-33.0); MCHC 31.4 % (32.0-36.0); MCV 79 fL (80-95); MPV 9.3 fL (8.0-11.0); Neutrophils % 86.4; Platelet Count 242 10^3/uL (130-400); RBC 4.42 10^6/uL (3.93-5.22); RDW 15.6 % (11.7-14.6); RDW-SD 44.6 fL; WBC 9.58 10^3/uL (4.4-10.8)
[2021-12-09 07:44] LABS: Anion Gap 3.1 mmol/L (3-11); BUN 12 mg/dL (7-18); CO2 33.9 mmol/L (21.0-32.0); CREATININE 0.8 mg/dL (0.55-1.02); Calcium 8.7 mg/dL (8.5-10.1); Chloride 88 mmol/L (98-107); Glucose 104 mg/dL (74-106); Magnesium 1.7 mg/dL (1.8-2.4); Potassium 4.7 mmol/L (3.5-5.1); Sodium 125 mmol/L (136-145)
[2021-12-09 07:45] VITALS: BP 148/86
[2021-12-09 07:46] VITALS: RESP 2; RESP 4; O2SAT 95
[2021-12-09] MEDS: Ipratropium 0.5 MG/2.5 ML UPD VIAL UPD ×2 (07:46→11:47)
[2021-12-09] MEDS: Pantoprazole 40 MG TABCR PO (07:47)
[2021-12-09] MEDS: Norethindrone 5 MG TAB 10 MG PO (07:47)
[2021-12-09] MEDS: Multivitamin TAB 1 TAB PO (07:47)
[2021-12-09] MEDS: predniSONE 20 MG TAB 40 MG PO (07:47)
[2021-12-09] MEDS: FLUoxetine 20 MG CAP PO (07:48)
[2021-12-09] MEDS: Budesonide/Formoterol 80/4.5 6.9 GM 60 PUFF INH IH (07:48)
[2021-12-09 10:57] VITALS: PULSE 72; PULSE 86; RESP 16; RESP 22; O2SAT 93; O2SAT 98
[2021-12-09 11:20] VITALS: BP 151/78; PULSE 69; RESP 18; TEMP 36.3; O2SAT 91
--- NOTE | 2021-12-09 12:46 | DSE_ITS ---
Date of service: 12/09/21 Time of Service: 11:46 DS: Diagnosis Discharge Diagnosis (1) Acute exacerbation of chronic obstructive pulmonary disease: Status: Acute (2) Hyponatremia: Status: Acute (3) Anxiety: Status: Chronic (4) Dyspnea: Status: Acute (5) Hypoxia: Status: Chronic Discharge Plan Disposition Patient Disposition: HOME W/HOME HEALTH SERVICE Condition: Stable Discharge Details Reason For Visit: COPD Exacerbation,Hyponatremia Admit Date/Time: 12/08/21 13:05 Admit Provider: Laura Mars Attending Provider: Laura Mars [facility] Course: This is a 61 year old female who presented to the ED with worsening shortness of breath. she has a history of chronic obstructive pulmonary disease and is ox ygen dependent. He was given nebulizers and steroids with improvement in symptoms. There was no evidence of pneumonia or heart failure on evaluation but labs did show acute on chronic hyponatremia she had since about 2018. She denies smoking and alcohol for the past 8 years. She was given IV saline with improvement of sodium from 123 to 125 which is her baseline. He has been re- ambulated and oxygenating well on his home oxygen dosing of 2 liters. She is stable and taking and feels back to her baseline. she is being discharged to home with home health services. she will complete a 5 day steroid burst. discharge discussed with Dr Mars Home Meds and New Rx's Prescriptions: New prednisone 20 mg Tablet 40 mg PO DAILY Qty: 10 0RF Continued multivitamin Tablet 1 tab DAILY Label Comments: take 1 tablet by mouth once daily norethindrone acetate 5 mg tablet 10 mg PO BID Qty: 240 5RF Stiolto Respimat 2.5-2.5 mcg/actuation Mist 2 puff INHALATION DAILY lorazepam 0.5 mg tablet 0.5 mg PO DAILY PRN PRN Label Comments: TAKE 1 TABLET BY MOUTH EVERY DAY NEEDED FOR PANIC nystatin [Nystop] 100,000 unit/gram powder 1 applic TOPICAL DIRECTED Label Comments: APPLY A SMALL AMOUNT TO AFFECTED AREA 2-3 TIMES A DAY UNTIL HEALED Rx Instructions: APPLY A SMALL AMOUNT TO SKIN 2-3 TIMES PER DAY UNTIL HEALED Flovent HFA 220 mcg/actuation HFA aerosol inhaler 1 puff INHALATION BID Label Comments: INHALE 1 PUFF BY MOUTH TWICE DAILY WITH STIOLTO ipratropium bromide 0.02 % Solution 0.25 mg UPD BID Qty: 60 0RF ipratropium bromide 0.02 % Solution 0.5 mg UPD Q4H PRN PRNQty: 150 0RF levalbuterol tartrate 45 mcg/actuation Hfa Aerosol Inhaler 2 puff inhalation Q4H PRN PRNQty: 15 0RF levalbuterol HCl 1.25 mg/3 mL Solution For Nebulization 1.25 mg UPD BID Qty: 60 0RF levalbuterol HCl 1.25 mg/3 mL Solution For Nebulization 1.25 mg UPD Q4H PRN PRNQty: 90 0RF metoprolol succinate 100 mg Tablet Extended Release 24 Hr 200 mg PO HS Qty: 60 0RF furosemide 40 mg tablet 40 mg PO BID Qty: 60 0RF fluoxetine 20 mg Capsule 20 mg PO DAILY acetaminophen 325 mg Tablet 650 mg PO PRN PRN Discharge Instructions Instructions: COPD (Chronic Obstructive Pulmonary Disease) (DC) Additional Instructions: continue steroid burst for 5 days resume usual medication and oxygen as previously directed. Stand Alone Forms: Nursing Discharge Form Referrals: Hardy Eagle [Primary Care Provider] - 12/21/21 2:20 pm Activity:: Activity as Tolerated Equipment/Supplies:: No Equipment Needed Diet:: As Tolerated Discharge Orders Discharge Orders: Discharge Order (Routine); Ordered 12/09/21 Ordered By: January Ramírez Discharge Data Discharge Date/Time-TO BE ENTERED AT DEPARTURE: 12/09/21 14:20 DS: Summary Time Spent with Patient providing and/or coordinating discharge services: Less than 30 minutes Status at Discharge Functional status at discharge: independent ambulation Overall status at discharge: patient is back to baseline Mental Status: mental status grossly normal Speech and Movement: speech and movement normal Mood: congruent mood Affect: normal affect Exam Const General: cooperative Orientation: alert, awake and oriented x3 HENMT Head: normal to inspection Face and sinus: normal facial exam Eyes General: appearance normal, both eyes and all related structures Eyelids: eyelids normal Pupils: PERRL EOM: EOM intact bilaterally Neck Neck: normal visual inspection Chest Chest: normal inspection of the chest Resp Effort & Inspection: normal respiratory effort and not able to speak in complete sentences (3-4 word sentences) Auscultation: diminished lung sounds bilaterally throughout and wheezes scattered wheezes Cardio Rate: regular rate Rhythm: regular rhythm GI Inspection: normal to inspection Palpation: soft, not firm, no guarding, no hepatosplenomegaly, no masses and nontender Auscultation: normal bowel sounds Back/Spine/Pelvis Back: no CVA tenderness Skin General skin exam: no rashes or lesions noted Neuro General: patient alert and patient awake Cognition: normal cognition Speech: speech normal Gait: normal gait Motor: muscle tone normal throughout Sensory Exam: no sensory deficits noted Extrem General: normal to inspection, full ROM and no edema Psych Appearance: grossly normal Mental Status: mental status grossly normal Speech and Movement: speech and movement normal Mood: congruent mood Affect: normal affect Thought Process: normal DS: Data Vitals/I&O Vitals and I&O: Vital Signs Temperature 36.3 C L 12/09/21 11:20 Temperature Source Tympanic 12/09/21 11:20 Pulse 69 12/09/21 11:20 Pulse Rhythm Regular 12/09/21 11:15 Pulse 91 H 12/08/21 14:10 Respiratory Rate 18 12/09/21 11:20 Respiratory Effort 12/09/21 11:15 Respiratory Depth Normal 12/09/21 11:15 Respiratory Pattern Normal 12/09/21 11:15 Blood Pressure 151/78 H 12/09/21 11:20 Blood Pressure Mean 99 12/08/21 11:31 Blood Pressure Position Sitting 12/08/21 10:28 Pulse Oximetry 91 L 12/09/21 11:20 Oxygen Delivery Method Nasal Cannula 12/09/21 11:20 Oxygen Flow Rate 2 12/09/21 11:20 Pain Level 0 12/09/21 11:20 Comment 12/09/21 11:20 Intake & Output 12/08/21 12/09/21 12/09/21 23:59 11:59 23:59 Intake Total 1953.1953. Output Total 300 / 300 1749 / 1949 Balance -300 / -300 204.167 / 4.167 -200 / .167 Weight 83 kg 81.1 kg Intake: IV Output: Urine 300 / 300 1749 / 1949 Other: Urine Color Light Merle Yellow Yellow Urine Appearance Clear Clear Clear Urine Odor Normal Normal Stool Size Moderate Stool Characteristics Formed Voiding Methods Bedside Commode Bedside Commode Data Completed and Pending Labs on day of discharge: Labs from last 24 hours 12/09/21 12/09/21 12/09/21 06:55 06:55 06:55 WBC 9.58 RBC 4.42 Hgb 11.0 L Hct 35.0 L MCV 79 L MCH 24.9 L MCHC 31.4 L D RDW 15.6 H Plt Count 242 MPV 9.3 Immature Gran % 0.4 Neutrophils % 86.4 Lymphocytes % 5.1 Monocytes % 8.0 Eosinophils % 0.0 Basophils % 0.1 Nucleated RBC % 0.0 Absolute Neutrophils 8.27 H Absolute Lymphocytes 0.49 L Absolute Monocytes 0.77 Absolute Eosinophils 0.00 Absolute Basophils 0.01 Sodium 125 L Potassium 4.7 Chloride 88 L Carbon Dioxide 33.9 H Anion Gap 3.1 BUN 12 Creatinine 0.8 Estimated GFR/1.73 m2 >= 60.00 Glucose 104 Serum Osmolality Pending Calcium 8.7 Magnesium 1.7 L Procalcitonin Urine Osmolality Ur Random Sodium Add-On Test Request 12/09/21 12/09/21 12/09/21 03:00 03:00 00:20 WBC RBC Hgb Hct MCV MCH MCHC RDW Plt Count MPV Immature Gran % Neutrophils % Lymphocytes % Monocytes % Eosinophils % Basophils % Nucleated RBC % Absolute Neutrophils Absolute Lymphocytes Absolute Monocytes Absolute Eosinophils Absolute Basophils Sodium 122 L* Potassium Chloride Carbon Dioxide Anion Gap BUN Creatinine Estimated GFR/1.73 m2 Glucose Serum Osmolality Calcium Magnesium Procalcitonin Urine Osmolality Pending Ur Random Sodium 61 Add-On Test Request 12/08/21 12/08/21 12/08/21 Unknown 20:53 16:58 WBC RBC Hgb Hct MCV MCH MCHC RDW Plt Count MPV Immature Gran % Neutrophils % Lymphocytes % Monocytes % Eosinophils % Basophils % Nucleated RBC % Absolute Neutrophils Absolute Lymphocytes Absolute Monocytes Absolute Eosinophils Absolute Basophils Sodium 122 L* 124 L Potassium 4.3 Chloride 86 L Carbon Dioxide 35.6 H Anion Gap 2.4 L BUN 15 Creatinine 0.9 Estimated GFR/1.73 m2 >= 60.00 Glucose 161 H Serum Osmolality Calcium 9.4 Magnesium Procalcitonin Urine Osmolality Ur Random Sodium Add-On Test Request DONE 12/08/21 10:45 WBC RBC Hgb Hct MCV MCH MCHC RDW Plt Count MPV Immature Gran % Neutrophils % Lymphocytes % Monocytes % Eosinophils % Basophils % Nucleated RBC % Absolute Neutrophils Absolute Lymphocytes Absolute Monocytes Absolute Eosinophils Absolute Basophils Sodium Potassium Chloride Carbon Dioxide Anion Gap BUN Creatinine Estimated GFR/1.73 m2 Glucose Serum Osmolality Calcium Magnesium Procalcitonin < 0.1 Urine Osmolality Ur Random Sodium Add-On Test Request [facility] All Active Problems Acute exacerbation of chronic obstructive pulmonary disease (Acute) Hyponatremia (Acute) Pulmonary hypertension (Acute) Hypoxia (Chronic) (HFpEF) heart failure with preserved ejection fraction (Chronic) Anxiety (Chronic) Dyspnea (Acute) Uterine mass (Acute) Not candidate for surgery at [facility] or [facility].08/10/21. Had partial uterine artery embolization. Unable to complete /2 hypoxia. Acute anemia (Acute) Postmenopausal bleeding (Acute) Dyspnea on exertion (Acute) S/P left inguinal hernia repair (Acute) 01/21/19 Dr Odette Cormier, left Left inguinal hernia (Acute) Incarcerated inguinal hernia, unilateral (Acute) Small bowel obstruction (Acute) Dehydration (Acute) Hypertension (Chronic) Change in mental status (Acute) Cardiomyopathy (Acute) PUD (peptic ulcer disease) (Acute) Iron deficiency anemia due to chronic blood loss (Chronic) Chronic bronchitis with COPD (chronic obstructive pulmonary disease) (Acute) Alcohol abuse (Acute) COPD (chronic obstructive pulmonary disease) (Chronic) Medical History Alcoholic gastritis Former smoker Hyponatremia Mood disorder with psychosis Neck pain on right side Pneumonia Post-menopausal bleeding Pulmonary hypertension Respiratory failure with hypoxia Surgical History EGD - [facility] (07/04/16) Social History Smoking/Tobacco Use Status: Former Tobacco Use Quit Date: 01/13/15 Smoking risk assessment performed?: Yes Alcohol Intake: former Drug use: Never Substance use type: does not use Do you feel safe at home: Yes Do you feel safe in your relationship?: Yes Additional Social history: Unable to assess [facility]
--- NOTE | 2021-12-09 13:11 | PDOC.HHF2F_ITS ---
Home Health Certification Home Health Certification: 1. Encounter Date and Reason I certify that Deepthi Hernandez was seen by January Ramírez on 12/09/21 and that I had a [id number] encounter with this patient that meets the physician face to face encounter requirements. 2. Clinical Findings Supporting Skilled Need and Homebound Status I certify that home health services are medically necessary, include either intermittent senior living and/or physical/speech therapy, and that this patient is homebound in that absences from the home require considerable and taxing effort and are infrequent or of short duration, or are attributable to the need to receive medical care. [X] (a) Attached documentation from encounter provides clinical findings supporting skilled need and homebound status (including what assistance patient requires to leave the home). The encounter with the patient was in whole, or in part, for the following medical condition, which is the primary reason for home health care: COPD Exacerbation,Hyponatremia Fci: routine evaluation and medication oversight. Homebound: patient unable to safely leave the house unattended d/t decreased strength and endurance and shortness of breath that limits ambulation distance 3. Certification and Authentication I certify that I composed the above information based on my clinical judgment relating to this patient's medical condition and, if applicable, clinical findings communicated to me by the NPP or inpatient physician who performed the Home Health Referral. All further orders will be obtained through _Hardy Eagle MD__(Community Based Physician - PCP)
--- NOTE | 2021-12-09 14:16 | CMDISCH_ITS ---
- If Service Date Differs Date of service: 12/09/21 Time of Service: 14:16 LACE Index Scoring Tool - Questions: Length of Stay (in days): 1 Acuity (Admit via E.D.?): Yes Comorbidities: Congestive Heart Failure, Chronic Pulmonary Disease E.D. Visits: 5 - Answers: Total Score: 13 Risk of Readmission: High Risk Care Management Discharge Reason for Hospitalization: COPD, Exacerbation, hyponatremia Discharge Plan: Deepthi discharged home via private vehicle with with New [facility] RN services. Deepthi with continue her steroid burst as prescribed and follow up with her PCP on 12/21/21 at 2:20pm as scheduled. Patient/Family Education Needs: Review discharge instructions, limitations, medications and plan to follow up with community providers. ask me three. Services Needed at Discharge: Home Health Care Services (Bud [facility] RN, CM notified Samuel at [facility].)
[2021-12-09 17:32] LABS: Osmolality, Urine 315 mOsm/kg (150-1,150)
[2021-12-09 17:38] LABS: Osmolality Serum 261 mOsm/kg (275-295)
== END 2021-12-09 14:20 | disposition home health service (06) ==
LOC: ER 12:55 → MS 14:44
PROVIDERS: Family Medicine; Nurse Practitioner Family; Admitting Provider Internal Medicine; Emergency Provider Physician Assistant; PCP Family Medicine; Visit Provider Internal Medicine
DX: J44.1 Chronic obstructive pulmonary disease with (acute) exacerbation (principal); E87.1 Hypo-osmolality and hyponatremia; R09.02 Hypoxemia; F41.9 Anxiety disorder, unspecified; R06.02 Shortness of breath; Z99.81 Dependence on supplemental oxygen; I27.20 Pulmonary hypertension, unspecified; I42.9 Cardiomyopathy, unspecified; I47.1 Supraventricular tachycardia; K27.9 Peptic ulcer, site unspecified, unspecified as acute or chronic, without hemorrhage or perforation; Z20.822 Contact with and (suspected) exposure to COVID-19; I50.32 Chronic diastolic (congestive) heart failure; N85.9 Noninflammatory disorder of uterus, unspecified; I11.0 Hypertensive heart disease with heart failure; D50.0 Iron deficiency anemia secondary to blood loss (chronic); Z87.891 Personal history of nicotine dependence; F10.21 Alcohol dependence, in remission
CPT/HCPCS: 36415; 80048; 80053; 83935; 84145; 87635; 93005; 94618; 94640; 96360; 96361; 96372; 96374; 96375; 99285; J1650; 71045; 83735; 83880; 83930; 84295; 84300; 84484; 85025; 93010; 99217; 99220; G0378; J2405; J2930; J7512; J7613; J7620; J7644

== ENCOUNTER 2021-12-23 16:07 | Outpatient (REF) | payer MEDICARE, SELFPAY ==
[2021-12-23 14:58] LABS: Anion Gap 8.3 mmol/L (3-11); BUN 14 mg/dL (7-18); CO2 32.7 mmol/L (21.0-32.0); CREATININE 0.9 mg/dL (0.55-1.02); Calcium 9.1 mg/dL (8.5-10.1); Chloride 81 mmol/L (98-107); Glucose 111 mg/dL (74-106); Potassium 4.3 mmol/L (3.5-5.1); TSH (W/Ref FT4) 0.74 uIU/mL (0.36-3.74)
[2021-12-23 15:47] LABS: Sodium 122 mmol/L (136-145)
== END 2021-12-23 16:08 | disposition home or self-care (01) ==
LOC: NCHCN 16:07
PROVIDERS: PCP Family Medicine; Visit Provider Family Medicine
DX: E87.1 Hypo-osmolality and hyponatremia (principal)
CPT/HCPCS: 80048; 82533; 84443

== ENCOUNTER 2021-12-30 08:05 | Emergency (ER) | payer MEDICARE, SELFPAY ==
[2021-12-30] VITALS (17 sets, daily range): BP systolic 110–128; BP diastolic 66–95; PULSE 71–81; RESP 2–32; TEMP 36.8–37; O2SAT 87–97
--- NOTE | 2021-12-30 08:00 | RT.EKG_ITS ---
APPROVED REPORT Exam: Resting ECG Reason for Exam: Chest pain Patient Location: E HR:75 bpm ECG Measurements Heart Rate 75 AXIS TN 204 P 70 QRSd 98 QRS -14 QT 372 T 61 QTc 417 Conclusion Sinus rhythm...normal P axis, V-rate 60- 99
--- NOTE | 2021-12-30 08:30 | DI.RAD_ITS ---
Exam(s) XR PORTABLE CHEST AP EXAM: XR PORTABLE CHEST AP CLINICAL HISTORY: cough/sob. TECHNIQUE: 2D digital imaging was performed. COMPARISON: CR XR PORTABLE CHEST AP from 12/08/2021 FINDINGS: LUNGS: Clear. No pleural abnormality seen. HEART: Normal. MEDIASTINUM: Normal. OTHER FINDINGS: None. IMPRESSION: No acute pulmonary findings. DATA REPOSITORY: RADIATION DOSE DELIVERED: Total DLP
--- NOTE | 2021-12-30 08:37 | W.ED.GENAD ---
Discharge Plan Disposition Patient Disposition: HOME Condition: Improving Discharge Details Clinical Impression: COPD (chronic obstructive pulmonary disease), CHF (congestive heart failure) Primary Care Provider: Hardy Eagle ED Provider: Norman Trimble Home Meds and New Rx's Prescriptions: New prednisone 20 mg tablet 60 mg PO DAILY 5 Days Qty: 15 0RF Continued multivitamin Tablet 1 tab DAILY Label Comments: take 1 tablet by mouth once daily norethindrone acetate 5 mg tablet 10 mg PO BID Qty: 240 5RF Stiolto Respimat 2.5-2.5 mcg/actuation Mist 2 puff INHALATION DAILY lorazepam 0.5 mg tablet 0.5 mg PO DAILY PRN PRN Label Comments: TAKE 1 TABLET BY MOUTH EVERY DAY NEEDED FOR PANIC nystatin [Nystop] 100,000 unit/gram powder 1 applic TOPICAL DIRECTED Label Comments: APPLY A SMALL AMOUNT TO AFFECTED AREA 2-3 TIMES A DAY UNTIL HEALED Rx Instructions: APPLY A SMALL AMOUNT TO SKIN 2-3 TIMES PER DAY UNTIL HEALED fluticasone propionate [Flovent HFA] 220 mcg/actuation HFA aerosol inhaler 1 puff INHALATION BID Label Comments: INHALE 1 PUFF BY MOUTH TWICE DAILY WITH STIOLTO ipratropium bromide 0.02 % Solution 0.25 mg UPD BID Qty: 60 0RF ipratropium bromide 0.02 % Solution 0.5 mg UPD Q4H PRN PRNQty: 150 0RF levalbuterol tartrate 45 mcg/actuation Hfa Aerosol Inhaler 2 puff inhalation Q4H PRN PRNQty: 15 0RF levalbuterol HCl 1.25 mg/3 mL Solution For Nebulization 1.25 mg UPD BID Qty: 60 0RF levalbuterol HCl 1.25 mg/3 mL Solution For Nebulization 1.25 mg UPD Q4H PRN PRNQty: 90 0RF metoprolol succinate 100 mg Tablet Extended Release 24 Hr 200 mg PO HS Qty: 60 0RF furosemide 40 mg tablet 40 mg PO BID Qty: 60 0RF prednisone 20 mg Tablet 40 mg PO DAILY Qty: 10 0RF fluoxetine 20 mg Capsule 20 mg PO DAILY acetaminophen 325 mg Tablet 650 mg PO PRN PRN ondansetron 4 mg tablet,disintegrating lisinopril 20 mg tablet Label Comments: TAKE ONE TABLET BY MOUTH EVERY DAY spironolactone 50 mg Tablet chlorthalidone 25 mg tablet Label Comments: TAKE HALF A TABLET BY MOUTH ONCE A DAY FOR BLOOD PRESSURE nortriptyline 25 mg capsule Label Comments: Take 1 capsule by mouth every night for pain pantoprazole [Protonix] 40 mg tablet,delayed release (DR/EC) PO Label Comments: Take 1 tablet by mouth once a day take at 730AM Discharge Instructions Instructions: Heart Failure (ED), COPD (Chronic Obstructive Pulmonary Disease) (ED) Additional Instructions: Prednisone as directed. I would like you to increase your furosemide to 60 mg twice daily for the next 4 days. Please watch for new or worsening symptoms and return to the ER for any concerns. Otherwise I would like you to follow-up with your primary care provider on the as already scheduled. Medical Decision Making 61-year-old female, past medical history of heart failure, hypertension, COPD, anxiety, O2 dependent, recent hospitalization for COPD exacerbation, reports the ER at the request of her PCP office for evaluation of general weakness, acute on chronic shortness of breath. Patient presented on her home O2 88% but with rest her O2 sat came up to 96% without any difficulty. She looks chronically ill in general however no acute distress, no respiratory distress, speaking in full sentences. Given her extensive past medical history we will initiate cardiac work-up, give IV Solu-Medrol and provide a DuoNeb and albuterol neb. Patient denies any chest pain whatsoever. No evidence of tachycardia Patient reports moderate improvement of her symptoms with breathing treatment, she is now moving more air and only has occasional scattered wheeze, primarily clear with coughing. Laboratory values do not reveal any evidence of leukocytosis or anemia. What appears to be chronic hyponatremia. BUN 20 creatinine 1.1 with a GFR of 50.17. Magnesium 1.7, LFTs unremarkable. Troponin less than 50. BNP 1324. Urinalysis unremarkable for infection. Chest x-ray unremarkable Patient would likely benefit from slight increase of her Lasix as well as a steroid burst, no clear indication for admission. Given she was sent here by her PCP office, I would like to talk with them prior to discharge. Case was discussed with Dr. Eagle, patient had a nurse visit today with outpatient lab draw. They sent her to the hospital as an outpatient to obtain a chest x-ray and apparently there was a miscommunication and she accidentally checked into the ER. She thought she was coming to the ER for evaluation when it was meant as an outpatient chest x-ray. Fortunately she had a thorough work-up including a chest x-ray that did not reveal any emergent process. He is aware of the increased Lasix as well as the steroids and will follow her as an outpatient on the as already scheduled. Standard discharge and return precautions were provided. Patient understands, is agreeable to this plan, and has no additional questions or concerns upon discharge. This documentation was generated using Newsleation system, please disregard any oddities of phrase or misspellings. Medical Records Medical records reviewed: Yes I reviewed the patient's medical records. Imaging Data Radiologic Study: Attestation: I personally reviewed and interpreted this imaging study as follows: Imaging: X-Ray Radiologist's impression: XR PORTABLE CHEST AP EXAM: XR PORTABLE CHEST AP CLINICAL HISTORY: cough/sob. TECHNIQUE: 2D digital imaging was performed. COMPARISON: CR XR PORTABLE CHEST AP from 12/08/2021 FINDINGS: LUNGS: Clear. No pleural abnormality seen. HEART: Normal. MEDIASTINUM: Normal. OTHER FINDINGS: None. IMPRESSION: No acute pulmonary findings. Lab Data Lab results reviewed: Yes I reviewed the patient's lab results. Labs: Laboratory Tests Range/Units 12/30/21 12/30/21 12/30/21 08:18 08:18 08:18 WBC (4.4-10.8) 10^3/uL 9.92 RBC (3.93-5.22) 10^6/uL 5.02 Hgb (11.2-15.7) g/dL 12.4 Hct (36.0-46.0) % 41.5 MCV (80-95) fL 83 MCH (27.0-33.0) pg 24.7 L MCHC (32.0-36.0) % 29.9 L RDW (11.7-14.6) % 16.3 H Plt Count (130-400) 10^3/uL 287 MPV (8.0-11.0) fL 9.3 Immature Gran % 0.4 Neutrophils % 86.1 Lymphocytes % 5.2 Monocytes % 7.3 Eosinophils % 0.6 Basophils % 0.4 Nucleated RBC % (0.0-0.3) % 0.0 Absolute Neutrophils (1.2-6.7) 10^3/uL 8.54 H Absolute Lymphocytes (1.2-3.4) 10^3/uL 0.52 L Absolute Monocytes (0.1-0.8) 10^3/uL 0.72 Absolute Eosinophils (0.0-0.7) 10^3/uL 0.06 Absolute Basophils (0.0-0.2) 10^3/uL 0.04 Sodium (136-145) mmol/L 127 L Potassium (3.5-5.1) mmol/L 4.0 Chloride (98-107) mmol/L 83 L Carbon Dioxide (21.0-32.0) mmol/L 43.8 H Anion Gap (3-11) mmol/L 0.2 L BUN (7-18) mg/dL 20 H Creatinine (0.55-1.02) mg/dL 1.1 H Estimated GFR/1.73 m2 (mL/min/1.73m2) 50.17 Glucose (74-106) mg/dL 134 H Calcium (8.5-10.1) mg/dL 9.3 Magnesium Cancelled 1.7 L Total Bilirubin (0.2-1.0) mg/dL 0.6 AST (15-37) U/L 16 ALT (14-59) U/L 27 Alkaline Phosphatase (46-116) U/L 79 Troponin I Cancelled < 50 NT-Pro-B Natriuret Pep Cancelled 1324 H Total Protein (6.4-8.2) g/dL 7.8 Albumin (3.4-5.0) g/dL 3.9 Urine Color (Yellow) Urine Clarity (Clear) Urine pH (5-8) Ur Specific [place] (1.005-1.025) Urine Protein (Negative) mg/dL Urine Ketones (Negative) mg/dL Urine Blood (Negative) Urine Nitrite (Negative) Urine Bilirubin (Negative) Urine Urobilinogen (Up TO 0.2) EU/dL Ur Leukocyte Esterase (Negative) Urine RBC (0-2) HPF Urine WBC (0-5) HPF Ur Epithelial Cells (Negative) HPF Urine Crystals (Negative) HPF Urine Bacteria (Negative) HPF Urine Casts (Negative) LPF Urine Mucus (Negative) Urine Other (Negative) Ur Culture Indicated? Urine Glucose (Negative) mg/dL COVID-19 Source SARS-CoV-2 (PCR) (Negative) Influenza Type A (PCR) (Negative) Influenza Type B (PCR) (Negative) RSV (PCR) (Negative) Range/Units 12/30/21 12/30/21 08:41 08:56 WBC (4.4-10.8) 10^3/uL RBC (3.93-5.22) 10^6/uL Hgb (11.2-15.7) g/dL Hct (36.0-46.0) % MCV (80-95) fL MCH (27.0-33.0) pg MCHC (32.0-36.0) % RDW (11.7-14.6) % Plt Count (130-400) 10^3/uL MPV (8.0-11.0) fL Immature Gran % Neutrophils % Lymphocytes % Monocytes % Eosinophils % Basophils % Nucleated RBC % (0.0-0.3) % Absolute Neutrophils (1.2-6.7) 10^3/uL Absolute Lymphocytes (1.2-3.4) 10^3/uL Absolute Monocytes (0.1-0.8) 10^3/uL Absolute Eosinophils (0.0-0.7) 10^3/uL Absolute Basophils (0.0-0.2) 10^3/uL Sodium (136-145) mmol/L Potassium (3.5-5.1) mmol/L Chloride (98-107) mmol/L Carbon Dioxide (21.0-32.0) mmol/L Anion Gap (3-11) mmol/L BUN (7-18) mg/dL Creatinine (0.55-1.02) mg/dL Estimated GFR/1.73 m2 (mL/min/1.73m2) Glucose (74-106) mg/dL Calcium (8.5-10.1) mg/dL Magnesium Total Bilirubin (0.2-1.0) mg/dL AST (15-37) U/L ALT (14-59) U/L Alkaline Phosphatase (46-116) U/L Troponin I NT-Pro-B Natriuret Pep Total Protein (6.4-8.2) g/dL Albumin (3.4-5.0) g/dL Urine Color (Yellow) Yellow Urine Clarity (Clear) Clear Urine pH (5-8) 7.0 Ur Specific [place] (1.005-1.025) 1.020 Urine Protein (Negative) mg/dL Negative Urine Ketones (Negative) mg/dL Negative Urine Blood (Negative) Trace-intact H Urine Nitrite (Negative) Negative Urine Bilirubin (Negative) Negative Urine Urobilinogen (Up TO 0.2) EU/dL 0.2 Ur Leukocyte Esterase (Negative) Negative Urine RBC (0-2) HPF 0-2 Urine WBC (0-5) HPF Negative Ur Epithelial Cells (Negative) HPF Few Urine Crystals (Negative) HPF Negative Urine Bacteria (Negative) HPF Rare Urine Casts (Negative) LPF Negative Urine Mucus (Negative) Negative Urine Other (Negative) Negative Ur Culture Indicated? No Urine Glucose (Negative) mg/dL Negative COVID-19 Source Nasopharynx SARS-CoV-2 (PCR) (Negative) Negative Influenza Type A (PCR) (Negative) Negative Influenza Type B (PCR) (Negative) Negative RSV (PCR) (Negative) Negative ECG Data Attestation: I personally reviewed and interpreted this ECG (s) as follows: Interpretation: Please see official report by Dr. Crawford. Sinus rhythm, ventricular rate of 75, no STEMI. HPI General Mode of arrival: ambulatory. Date/Time Provider Initiated Documentation: 12/30/21 08:06. Limitations to Documentation: no limitations. Information obtained by: patient and family. HPI Narrative: This is a 61-year-old female, past medical history of COPD, O2 dependent at baseline on 2 L nasal cannula, chronic hyponatremia, pulmonary hypertension, CHF, anxiety, hypertension, cardiomyopathy, presenting to the ER at the request of her PCP office for what she describes as generalized weakness, acute on chronic shortness of breath, and occasional dizziness. Patient tells me at rest she feels well and is currently asymptomatic. She tells me that she presented to her primary care office today either for a routine lab draw and/or chest x-ray and was directed to come to the ER. She makes it clear to me that she does not wish to be here a long period of time, and is not interested in admission or potential rehab facility if required. She tells me she was admitted to our hospital last month and after discharge has had some lingering symptoms of her COPD. She denies headache, fever, chest pain, worsening cough, abdominal pain, nausea, vomiting, increased pain or swelling her legs. She tells me that she is compliant with her medications. Related Data Home Medications Medication Instructions Recorded Confirmed fluoxetine 20 mg capsule 20 mg PO DAILY 01/14/19 12/08/21 acetaminophen 325 mg tablet 650 mg PO PRN PRN 01/21/19 12/30/21 multivitamin 1 tab DAILY 11/17/19 12/30/21 tiotropium 2.5 mcg-olodaterol 2.5 2 puff inhalation DAILY 09/15/20 12/30/21 mcg/actuation mist for inhalation (Stiolto Respimat) fluticasone propionate 220 1 puff inhalation BID 07/26/21 12/30/21 mcg/actuation HFA aerosol inhaler (Flovent HFA) lorazepam 0.5 mg tablet 0.5 mg PO DAILY PRN PRN 07/26/21 12/30/21 nystatin 100,000 unit/gram topical 1 applic topical DIRECTED 07/26/21 12/30/21 powder (Nystop) ipratropium bromide 0.02 % 0.25 mg (1.25 mL) UPD BID #60 mL 07/29/21 12/30/21 solution for inhalation ipratropium bromide 0.02 % 0.5 mg (2.5 mL) UPD Q4H PRN PRN 07/29/21 12/30/21 solution for inhalation #150 mL levalbuterol HCl 1.25 mg/3 mL 1.25 mg (3 mL) UPD BID #60 mL 07/29/21 12/30/21 solution for nebulization levalbuterol HCl 1.25 mg/3 mL 1.25 mg (3 mL) UPD Q4H PRN PRN #90 07/29/21 12/30/21 solution for nebulization mL levalbuterol tartrate 45 2 puff inhalation Q4H PRN PRN #15 07/29/21 12/30/21 mcg/actuation aerosol inhaler grams metoprolol succinate 100 mg 200 mg PO HS #60 tabs 07/29/21 12/30/21 tablet,extended release 24 hr furosemide 40 mg tablet 40 mg PO BID #60 tabs 07/30/21 12/30/21 norethindrone acetate 5 mg tablet 10 mg PO BID #240 tabs 11/14/21 12/30/21 prednisone 20 mg tablet 40 mg PO DAILY #10 tabs 12/09/21 chlorthalidone 25 mg tablet tab 12/30/21 12/30/21 lisinopril 20 mg tablet tab 12/30/21 12/30/21 nortriptyline 25 mg capsule cap 12/30/21 12/30/21 ondansetron 4 mg disintegrating tab 12/30/21 12/30/21 tablet pantoprazole 40 mg tablet,delayed tab PO 12/30/21 12/30/21 release (Protonix) prednisone 20 mg tablet 60 mg PO DAILY 5 days #15 tabs 12/30/21 spironolactone 50 mg tablet mg 12/30/21 Previous Rx's Medication Instructions Recorded ipratropium bromide 0.02 % 0.25 mg (1.25 mL) UPD BID #60 mL 07/29/21 solution for inhalation ipratropium bromide 0.02 % 0.5 mg (2.5 mL) UPD Q4H PRN PRN 07/29/21 solution for inhalation #150 mL levalbuterol HCl 1.25 mg/3 mL 1.25 mg (3 mL) UPD BID #60 mL 07/29/21 solution for nebulization levalbuterol HCl 1.25 mg/3 mL 1.25 mg (3 mL) UPD Q4H PRN PRN #90 07/29/21 solution for nebulization mL levalbuterol tartrate 45 2 puff inhalation Q4H PRN PRN #15 07/29/21 mcg/actuation aerosol inhaler grams metoprolol succinate 100 mg 200 mg PO HS #60 tabs 07/29/21 tablet,extended release 24 hr furosemide 40 mg tablet 40 mg PO BID #60 tabs 07/30/21 norethindrone acetate 5 mg tablet 10 mg PO BID #240 tabs 11/14/21 prednisone 20 mg tablet 40 mg PO DAILY #10 tabs 12/09/21 prednisone 20 mg tablet 60 mg PO DAILY 5 days #15 tabs 12/30/21 Allergies Allergy/AdvReac Type Severity Reaction Status Date / Time No Known Allergies Allergy Verified 12/08/21 10:32 General Stated Complaint: GenMedical MAYA: 2 Review of Systems Constitutional Constitutional: Denies fatigue, Denies fever(s), Denies headache(s) and Reports weakness (Generalized) ENT Ears, Nose, Mouth, and Throat: Denies headache(s) and Denies neck pain Cardiovascular Cardiovascular: Denies chest pain, Reports dyspnea and Reports dyspnea on exertion Respiratory Respiratory: Reports cough, Reports dyspnea and Reports dyspnea on exertion Gastrointestinal Gastrointestinal: Denies abdominal pain, Denies nausea and Denies vomiting Genitourinary Genitourinary: Denies dysuria Musculoskeletal Musculoskeletal: Denies back pain and Denies neck pain Integumentary/Breasts Skin/Breast: Denies rash Neurologic Neurologic: Denies headache(s) and Reports weakness (Generalized) Endocrine Endocrine: Denies fatigue Hematologic/Lymphatic Hematologic/Lymphatic: Denies easy bleeding and Denies easy bruising PFSH All Active Problems (Updated 12/30/21 @ 10:58 by KENDALL Morales) CHF (congestive heart failure) (Chronic) Acute exacerbation of chronic obstructive pulmonary disease (Acute) Hyponatremia (Acute) Pulmonary hypertension (Acute) Hypoxia (Chronic) (HFpEF) heart failure with preserved ejection fraction (Chronic) Anxiety (Chronic) Dyspnea (Acute) Uterine mass (Acute) Not candidate for surgery at [facility] or [facility] [place]. Had partial uterine artery embolization. Unable to complete 2/2 hypoxia. Acute anemia (Acute) Postmenopausal bleeding (Acute) Dyspnea on exertion (Acute) S/P left inguinal hernia repair (Acute) 01/21/19 Dr Odette Cormier, left Left inguinal hernia (Acute) Incarcerated inguinal hernia, unilateral (Acute) Small bowel obstruction (Acute) Dehydration (Acute) Hypertension (Chronic) Change in mental status (Acute) Cardiomyopathy (Acute) PUD (peptic ulcer disease) (Acute) Iron deficiency anemia due to chronic blood loss (Chronic) Chronic bronchitis with COPD (chronic obstructive pulmonary disease) (Acute) Alcohol abuse (Acute) COPD (chronic obstructive pulmonary disease) (Chronic) Medical History Alcoholic gastritis Former smoker Hyponatremia Mood disorder with psychosis Neck pain on right side Pneumonia Post-menopausal bleeding Pulmonary hypertension Respiratory failure with hypoxia Surgical History EGD - [facility] (07/04/16) Social History Smoking/Tobacco Use Status: Former Tobacco Use Quit Date: 01/13/15 Smoking risk assessment performed?: Yes Alcohol Intake: former Drug use: Never Substance use type: does not use Do you feel safe at home: Yes Do you feel safe in your relationship?: Yes Exam Const General: cooperative, comfortable and no acute distress Orientation: alert and awake [facility] Head: normal to inspection, normocephalic and atraumatic Face and sinus: normal facial exam Mouth: moist mucous membranes Eyes General: appearance normal, both eyes and all related structures Conjunctivae: conjunctivae normal Neck Neck: normal visual inspection, full ROM, trachea midline and supple Resp Effort & Inspection: normal respiratory effort and able to speak in complete sentences Auscultation: diminished lung sounds bilaterally in the lower lung camejo and wheezes (Scattered throughout) Cardio Rate: regular rate Rhythm: regular rhythm GI Palpation: soft and nontender Back/Spine/Pelvis Back: No back tenderness Skin General skin exam: no rashes or lesions noted Neuro General: patient alert, patient awake, moves all extremities and no focal motor deficits Cognition: normal cognition Speech: speech normal Gait: normal gait Motor: muscle tone normal throughout Sensory Exam: no sensory deficits noted Extrem General: normal to inspection, full ROM, capillary refill normal, no calf tenderness and pedal edema bilaterally non-pitting and 1+ Psych Appearance: grossly normal Mental Status: mental status grossly normal Course Vital Signs Vital signs: Vital Signs Temperature 36.8 C 12/30/21 08:13 Pulse 79 12/30/21 08:13 Respiratory Rate 18 12/30/21 08:13 Blood Pressure 111/72 12/30/21 08:13 Pulse Oximetry 88 L 12/30/21 08:13 Temperature 36.8 C 12/30/21 08:13 Temperature Source Tympanic 12/30/21 08:13 Pulse 71 12/30/21 08:17 Pulse 76 12/30/21 08:20 Respiratory Rate 26 H 12/30/21 08:20 Respiratory Effort 12/30/21 08:18 Respiratory Depth Shallow 12/30/21 08:18 Respiratory Pattern Tachypnea 12/30/21 08:18 Blood Pressure 111/72 12/30/21 08:17 Blood Pressure Mean 82 12/30/21 08:17 Pulse Oximetry 97 12/30/21 08:20 Oxygen Delivery Method Nasal Cannula 12/30/21 08:13 Oxygen Flow Rate 2 12/30/21 08:13 Pain Level 0 12/30/21 08:13
[2021-12-30 08:47] LABS: Abs Immature Grans 0.04 10^3/uL (0.0-0.06); Absolute Basophil Count 0.04 10^3/uL (0.0-0.2); Absolute Eosinophil Count 0.06 10^3/uL (0.0-0.7); Absolute Lymphocyte Count 0.52 10^3/uL (1.2-3.4); Absolute Monocyte Count 0.72 10^3/uL (0.1-0.8); Absolute Neutrophil Count 8.54 10^3/uL (1.2-6.7); Basophils % 0.4; Eosinophils % 0.6; HCT 41.5 % (36.0-46.0); HGB 12.4 g/dL (11.2-15.7); Immature Grans % 0.4; Lymphocytes % 5.2; MCH 24.7 pg (27.0-33.0); MCHC 29.9 % (32.0-36.0); MCV 83 fL (80-95); MPV 9.3 fL (8.0-11.0); Monocytes % 7.3; Neutrophils % 86.1; Platelet Count 287 10^3/uL (130-400); RBC 5.02 10^6/uL (3.93-5.22); RDW 16.3 % (11.7-14.6); WBC 9.92 10^3/uL (4.4-10.8)
[2021-12-30] MEDS: Albuterol 2.5 MG/3 ML INH SOLN VIAL UPD (08:55)
[2021-12-30] MEDS: Albuterol/Ipratropium 3 ML UPD VIAL UPD (08:55)
[2021-12-30] MEDS: methylPREDNISolone SUCC 125 MG VIAL IVP (08:55)
[2021-12-30 09:12] LABS: ALT 27 U/L (14-59); AST 16 U/L (15-37); Albumin 3.9 g/dL (3.4-5.0); Alkaline Phosphatase 79 U/L (46-116); Anion Gap 0.2 mmol/L (3-11); BUN 20 mg/dL (7-18); Bilirubin, Total 0.6 mg/dL (0.2-1.0); CO2 43.8 mmol/L (21.0-32.0); CREATININE 1.1 mg/dL (0.55-1.02); Calcium 9.3 mg/dL (8.5-10.1); Chloride 83 mmol/L (98-107); Estimated GFR 50.17 (mL/min/1.73m2); Glucose 134 mg/dL (74-106); Magnesium 1.7 mg/dL (1.8-2.4); NT-proBNP 1324 pg/mL (<300); Sodium 127 mmol/L (136-145); Total Protein 7.8 g/dL (6.4-8.2); Troponin I < 50 ng/L (<or=60)
[2021-12-30 09:29] LABS: Bilirubin Negative (Negative); Blood Trace-intact (Negative); Clarity Clear (Clear); Glucose Negative (Negative); Ketones Negative (Negative); Leukocyte Esterase Negative (Negative); Nitrite Negative (Negative); Urobilinogen 0.2 EU/dL (Up TO 0.2)
[2021-12-30 09:49] LABS: Bacteria Rare HPF (Negative); Epithelial Cells Few HPF (Negative); Other Cells Negative (Negative); RBC 0-2 HPF (0-2); WBC Negative HPF (0-5)
[2021-12-30 09:50] LABS: C & S Indicated? No; Casts Negative LPF (Negative); Crystals Negative HPF (Negative); Mucus Negative (Negative)
[2021-12-30 09:57] LABS: COVID-19 PCR Negative (Negative); Influenza A PCR Negative (Negative); Influenza B PCR Negative (Negative); RSV PCR Negative (Negative)
[2021-12-30 09:59] LABS: Source Nasopharynx
== END 2021-12-30 11:10 | disposition home or self-care (01) ==
PROVIDERS: Emergency Provider Physician Assistant; PCP Family Medicine
DX: J44.9 Chronic obstructive pulmonary disease, unspecified (principal); I50.32 Chronic diastolic (congestive) heart failure; R06.02 Shortness of breath; R07.9 Chest pain, unspecified; Z20.822 Contact with and (suspected) exposure to COVID-19
CPT/HCPCS: 36415; 80053; 87637; 93005; 96374; 99284; 71045; 81003; 81015; 83735; 83880; 84484; 85025; 93010; J2930; J7613; J7620

== ENCOUNTER 2021-12-30 10:31 | Outpatient (REF) | payer MEDICARE, SELFPAY ==
[2021-12-30 19:54] LABS: Anion Gap 1.2 mmol/L (3-11); BUN 25 mg/dL (7-18); CO2 40.8 mmol/L (21.0-32.0); CREATININE 1.3 mg/dL (0.55-1.02); Calcium 8.9 mg/dL (8.5-10.1); Chloride 81 mmol/L (98-107); Estimated GFR 41.37 (mL/min/1.73m2); Glucose 136 mg/dL (74-106); Potassium 4.1 mmol/L (3.5-5.1)
[2021-12-30 20:03] LABS: Sodium 123 mmol/L (136-145)
== END 2021-12-30 10:32 | disposition home or self-care (01) ==
LOC: NCHCN 10:31
PROVIDERS: PCP Family Medicine; Visit Provider Family Medicine
DX: I10 Essential (primary) hypertension (principal); D50.0 Iron deficiency anemia secondary to blood loss (chronic); I50.9 Heart failure, unspecified
CPT/HCPCS: 80048

== ENCOUNTER 2022-01-11 01:04 | Outpatient (CLI) | payer MEDICARE, SELFPAY ==
--- NOTE | 2022-01-11 | DI.RAD_ITS ---
Exam(s) XR CHEST 2V PA LATERAL EXAM: XR CHEST 2V PA LATERAL CLINICAL HISTORY: RT BASILAR RALES, H/O CHF AND COPD,R09.89 TECHNIQUE: COMPARISON: CR XR PORTABLE CHEST AP from 12/30/2021 FINDINGS: The heart is not enlarged. Lungs are predominantly clear with minimal linear areas of increased radi odensity which may represent fissural prominence or scarring. No focal consolidation. No pleural ef fusion or pneumothorax. IMPRESSION: No evidence of acute process. RADIATION DOSE DELIVERED: Total DLP
== END 2022-01-11 01:24 ==
LOC: DI 01:04
PROVIDERS: PCP Family Medicine; Visit Provider Family Medicine
DX: R09.89 Other specified symptoms and signs involving the circulatory and respiratory systems (principal); I50.9 Heart failure, unspecified; J44.9 Chronic obstructive pulmonary disease, unspecified
CPT/HCPCS: 71046

== ENCOUNTER 2022-01-11 14:41 | Outpatient (REF) | payer MEDICARE, SELFPAY ==
[2022-01-11 16:25] LABS: Anion Gap 0.8 mmol/L (3-11); BUN 17 mg/dL (7-18); CO2 38.2 mmol/L (21.0-32.0); Calcium 9.4 mg/dL (8.5-10.1); Chloride 91 mmol/L (98-107); Glucose 100 mg/dL (74-106); NT-proBNP 891 pg/mL (<300); Potassium 5.5 mmol/L (3.5-5.1); Sodium 130 mmol/L (136-145)
== END 2022-01-11 14:42 | disposition home or self-care (01) ==
LOC: NCHCN 14:41
PROVIDERS: PCP Family Medicine; Visit Provider Family Medicine
DX: E87.1 Hypo-osmolality and hyponatremia (principal); I50.9 Heart failure, unspecified; E83.42 Hypomagnesemia
CPT/HCPCS: 80048; 83735; 83880

== ENCOUNTER 2022-01-30 18:21 | Outpatient (REF) | payer MEDICARE, SELFPAY ==
[2022-01-30 19:08] LABS: BUN 19 mg/dL (7-18); CREATININE 1.1 mg/dL (0.55-1.02); Calcium 9.1 mg/dL (8.5-10.1); Chloride 89 mmol/L (98-107); Estimated GFR 50.17 (mL/min/1.73m2); Glucose 112 mg/dL (74-106); NT-proBNP 622 pg/mL (<300); Sodium 126 mmol/L (136-145)
== END 2022-01-30 18:22 | disposition home or self-care (01) ==
LOC: NCHCN 18:21
PROVIDERS: PCP Family Medicine; Visit Provider Family Medicine
DX: E87.5 Hyperkalemia (principal); I50.33 Acute on chronic diastolic (congestive) heart failure
CPT/HCPCS: 80048; 83880

== ENCOUNTER 2022-01-31 15:31 | Inpatient (IN) | payer MEDICARE, SELFPAY ==
[2022-01-31] VITALS (207 sets, daily range): BP systolic 95–158; BP diastolic 46–111; PULSE 73–88; RESP 16–40; TEMP 36.6; O2SAT 80–99
--- NOTE | 2022-01-31 16:00 | RT.EKG_ITS ---
APPROVED REPORT Exam: Resting ECG Reason for Exam: SOB Patient Location: E HR:80 bpm ECG Measurements Heart Rate 80 AXIS [place] 196 P 60 QRSd 82 QRS -28 QT 345 T 45 QTc 399 Conclusion Sinus rhythm...normal P axis, V-rate 60- 99. Sinus. No STEMI. I have reviewed and interpreted ECG and agree with software generated interpretation.
[2022-01-31] MEDS: Furosemide 100 MG/10 ML VIAL 80 MG IVP (16:28)
[2022-01-31] MEDS: MORPHine 4 MG/ML SYR IVP (16:41)
[2022-01-31 16:42] LABS: Abs Immature Grans 0.03 10^3/uL (0.0-0.06); Absolute Basophil Count 0.03 10^3/uL (0.0-0.2); Absolute Eosinophil Count 0.07 10^3/uL (0.0-0.7); Absolute Lymphocyte Count 0.68 10^3/uL (1.2-3.4); Absolute Monocyte Count 1.07 10^3/uL (0.1-0.8); Absolute Neutrophil Count 5.88 10^3/uL (1.2-6.7); Basophils % 0.4; Eosinophils % 0.9; HCT 36.2 % (36.0-46.0); Immature Grans % 0.4; Lymphocytes % 8.8; MCH 26.1 pg (27.0-33.0); MCHC 30.4 % (32.0-36.0); MCV 86 fL (80-95); MPV 8.9 fL (8.0-11.0); Monocytes % 13.8; Neutrophils % 75.7; Platelet Count 259 10^3/uL (130-400); RBC 4.21 10^6/uL (3.93-5.22); RDW-SD 50.1 fL; WBC 7.76 10^3/uL (4.4-10.8)
[2022-01-31 17:06] LABS: ALT 19 U/L (14-59); AST 16 U/L (15-37); Albumin 3.1 g/dL (3.4-5.0); Alkaline Phosphatase 70 U/L (46-116); Anion Gap 2.1 mmol/L (3-11); BUN 22 mg/dL (7-18); Bilirubin, Total 0.2 mg/dL (0.2-1.0); CO2 39.9 mmol/L (21.0-32.0); CREATININE 1.3 mg/dL (0.55-1.02); Calcium 8.6 mg/dL (8.5-10.1); Chloride 92 mmol/L (98-107); Estimated GFR 41.37 (mL/min/1.73m2); Glucose 102 mg/dL (74-106); Magnesium 1.9 mg/dL (1.8-2.4); NT-proBNP 798 pg/mL (<300); Potassium 4.5 mmol/L (3.5-5.1); Sodium 134 mmol/L (136-145); Total Protein 6.4 g/dL (6.4-8.2); Troponin I < 50 ng/L (<or=60)
--- NOTE | 2022-01-31 17:15 | DI.RAD_ITS ---
Exam(s) XR PORTABLE CHEST AP EXAM: XR PORTABLE CHEST AP CLINICAL HISTORY: Shortness of breath TECHNIQUE: 2D digital imaging was performed. COMPARISON: CR XR CHEST 2V PA LATERAL from 01/11/2022 FINDINGS: LUNGS: Mild fibrotic changes, otherwise clear. No pleural abnormality seen. HEART: Within normal limits in size for projection. AORTA: Tortuous. Mild calcification. BONES: Unremarkable for age. Soft tissues: Unremarkable. IMPRESSION: No acute findings. DATA REPOSITORY: RADIATION DOSE DELIVERED:
--- NOTE | 2022-01-31 18:22 | DI.VRAD_ITS ---
PROCEDURE INFORMATION: Exam: XR Chest Exam date and time: 01/31/2022 5:31 PM Age: 61 years old Clinical indication: Other: Shortness of breath TECHNIQUE: Imaging protocol: Radiologic exam of the chest. Views: 1 view. COMPARISON: CR XR CHEST 2V PA LATERAL 01/11/2022 10:02 AM FINDINGS: Lungs: No focal pneumonia or pneumothorax. Pleural spaces: There are no pleural effusions present. Heart/Mediastinum: Unremarkable. No cardiomegaly. Vasculature: The vasculature demonstrates diffuse mild atherosclerotic calcification. Diaphragm: There is nonspecific elevation of the left hemidiaphragm. Bones/joints: The thoracic spine demonstrates mild degenerative changes at multiple levels. IMPRESSION: No focal pneumonia or pneumothorax. Dictated and Authenticated by: Yunier Alcala MD. Ordering:MIAH Tamayo MD
[2022-01-31] MEDS: methylPREDNISolone SUCC 125 MG VIAL IVP (19:19)
[2022-01-31 19:29] LABS: Source Nasopharynx
[2022-01-31 19:51] LABS: Troponin I < 50 ng/L (<or=60)
--- NOTE | 2022-01-31 20:07 | ED.GENADUL_ITS ---
Discharge Plan Disposition Patient Disposition: [facility] INPATIENT Condition: Fair Discharge Details Clinical Impression: CHF exacerbation, Acute exacerbation of chronic obstructive pulmonary disease Admit Date/Time: 01/31/22 20:08 Admit Provider: Laura Mars Attending Provider: Laura Mars Primary Care Provider: Hardy Eagle ED Provider: Roni Scott Discharge Data Discharge Date/Time-TO BE ENTERED AT DEPARTURE: 01/31/22 21:52 Medical Decision Making Patient presenting to the emergency department in moderate to severe respiratory distress. Patient speaking in 2-3 word sentences with obvious labored breathing. Patient has significant history of COPD with CHF and was seen yesterday in the emergency department and offered admission which at that time she delayed and requested to go home on increased Lasix. She does state that she took 80 mg of furosemide this morning with no improvement and had some worsening of symptoms. Patient denies any pain or discomfort or other associated symptoms. Physical exam shows 60-year-old female with obvious labored breathing in moderate to severe respiratory distress. Some reduced lung sounds are noted with slight wheezing in the upper bases and crackles in lower bases. Patient does have 1-2+ pitting edema in lower extremities and otherwise unremarkable exam. We will plan on placing patient on BiPAP, IV 80 mg Lasix, morphine 4 reduction of respiratory rate on BiPAP, Solu-Medrol and standard ED labs including BNP and troponin, EKG and chest x-ray. Please see physician interpretation for full interpretation of EKG patient is in sinus rhythm with a rate of 80, no acute signs of STEMI.. Review of labs show an overall unremarkable CBC with a slightly low hemoglobin of 11 but otherwise nondiagnostic, CMP does show sodium of 134, chloride of 92, carbon dioxide of 39 9, anion gap 2.1, BUN of 22 and creatinine 1.3 with a GFR 41. While patient does have history of decreased renal function this is slightly worse but not completely out of patient's past medical history. Initial troponin is nondetected with BNP elevated from yesterday's labs and today is at 798. Chest x-ray per radiologist read of no focal pneumonia or pneumothorax noted. Patient tolerated BiPAP appropriately but was requesting to eat. Will give trial of patient being off BiPAP given that she has urinated multiple times and less respiratory effort is noted. Patient was able to tolerate being off the BiPAP and was placed just on nasal cannula. Delta troponin is negative. I do feel that patient should be admitted for further diuresis and monitoring. Patient is agreeable to this plan of care. Called and spoke and discussed case with hospitalist who agreed with plan of care. Medical Records Medical records reviewed: Yes I reviewed the patient's medical records. Imaging Data Radiologic Study: Attestation: I personally reviewed and interpreted this imaging study as follows: Imaging: X-Ray Radiologist's impression: FINDINGS: Lungs: No focal pneumonia or pneumothorax. Pleural spaces: There are no pleural effusions present. Heart/Mediastinum: Unremarkable. No cardiomegaly. Vasculature: The vasculature demonstrates diffuse mild atherosclerotic calcification. Diaphragm: There is nonspecific elevation of the left hemidiaphragm. Bones/joints: The thoracic spine demonstrates mild degenerative changes at multiple levels. IMPRESSION: No focal pneumonia or pneumothorax Lab Data Lab results reviewed: Yes I reviewed the patient's lab results. HPI General Mode of arrival: wheelchair . Date/Time Provider Initiated Documentation: 01/31/22 16:06 . Limitations to Documentation: no limitations . Information obtained by: patient and family . History of Present Illness 61 year old F presents to the emergency department with the chief complaint of Shortness of breath swelling of lower, described as moderate and similar to prior episodes, Quality is described as other (denies pain ), Patient started experiencing this day(s) (2) and it has been constant. No relieving factors improve symptom(s), No exacerbating factors reported . Patient notes malaise and shortness of breath; denies fever/chills. Patient did receive the following treatments prior to arrival, other (80 mg Lasix this morning) Related Data Home Medications Medication Instructions Recorded Confirmed fluoxetine 20 mg capsule 20 mg PO DAILY 01/14/19 01/31/22 acetaminophen 325 mg tablet 650 mg PO PRN PRN 01/21/19 01/31/22 multivitamin 1 tab DAILY 11/17/19 01/31/22 tiotropium 2.5 mcg-olodaterol 2.5 2 puff inhalation DAILY 09/15/20 01/31/22 mcg/actuation mist for inhalation (Stiolto Respimat) fluticasone propionate 220 1 puff inhalation BID 07/26/21 01/31/22 mcg/actuation HFA aerosol inhaler (Flovent HFA) lorazepam 0.5 mg tablet 0.5 mg PO DAILY PRN PRN 07/26/21 01/31/22 nystatin 100,000 unit/gram topical 1 applic topical DIRECTED 07/26/21 01/31/22 powder (Nystop) ipratropium bromide 0.02 % 0.25 mg (1.25 mL) UPD BID #60 mL 07/29/21 01/31/22 solution for inhalation ipratropium bromide 0.02 % 0.5 mg (2.5 mL) UPD Q4H PRN PRN 07/29/21 01/31/22 solution for inhalation #150 mL levalbuterol HCl 1.25 mg/3 mL 1.25 mg (3 mL) UPD BID #60 mL 07/29/21 01/31/22 solution for nebulization levalbuterol HCl 1.25 mg/3 mL 1.25 mg (3 mL) UPD Q4H PRN PRN #90 07/29/21 01/31/22 solution for nebulization mL levalbuterol tartrate 45 2 puff inhalation Q4H PRN PRN #15 07/29/21 01/31/22 mcg/actuation aerosol inhaler grams metoprolol succinate 100 mg 200 mg PO HS #60 tabs 07/29/21 01/31/22 tablet,extended release 24 hr norethindrone acetate 5 mg tablet 10 mg PO BID #240 tabs 11/14/21 01/31/22 chlorthalidone 25 mg tablet 1 tab PO 1XD 12/30/21 01/31/22 lisinopril 20 mg tablet tab 12/30/21 12/30/21 nortriptyline 25 mg capsule 1 cap PO 1XD 12/30/21 01/31/22 pantoprazole 40 mg tablet,delayed 40 tab PO 1XD 12/30/21 01/31/22 release (Protonix) spironolactone 50 mg tablet 50 mg PO 1XD 12/30/21 01/31/22 furosemide 40 mg tablet 80 mg PO BID 01/31/22 01/31/22 prednisone 20 mg tablet 80 mg PO DAILY 01/31/22 01/31/22 Previous Rx's Medication Instructions Recorded ipratropium bromide 0.02 % 0.25 mg (1.25 mL) UPD BID #60 mL 01/14/22 solution for inhalation ipratropium bromide 0.02 % 0.5 mg (2.5 mL) UPD Q4H PRN PRN 07/29/21 solution for inhalation #150 mL levalbuterol HCl 1.25 mg/3 mL 1.25 mg (3 mL) UPD BID #60 mL 07/29/21 solution for nebulization levalbuterol HCl 1.25 mg/3 mL 1.25 mg (3 mL) UPD Q4H PRN PRN #90 07/29/21 solution for nebulization mL levalbuterol tartrate 45 2 puff inhalation Q4H PRN PRN #15 07/29/21 mcg/actuation aerosol inhaler grams metoprolol succinate 100 mg 200 mg PO HS #60 tabs 07/29/21 tablet,extended release 24 hr norethindrone acetate 5 mg tablet 10 mg PO BID #240 tabs 11/14/21 Allergies Allergy/AdvReac Type Severity Reaction Status Date / Time No Known Allergies Allergy Verified 12/08/21 10:32 General Stated Complaint: SOB MAYA: 3 Review of Systems Constitutional Constitutional: Denies chills, Reports fatigue, Denies fever(s) and Reports malaise Cardiovascular Cardiovascular: Reports as per HPI, Reports chest pain (Described as chest tightness not pain), Denies chest pain with activity, Denies syncope, Reports pedal edema, Reports edema, Denies irregular heart rhythm, Reports leg edema, Reports dyspnea and Reports dyspnea on exertion Respiratory Respiratory: Reports as per HPI, Reports cough, Denies hemoptysis, Reports dyspnea and Reports dyspnea on exertion Gastrointestinal Gastrointestinal: Denies abdominal pain, Denies nausea and Denies vomiting Neurologic Neurologic: Denies syncope Psychiatric Psychiatric: Denies anxiety Endocrine Endocrine: Reports fatigue PFSH All Active Problems (Updated 02/04/22 @ 17:46 by Norman Wu MD) Vaginal bleeding (Acute) Palliative care patient (Acute) Discharge planning issues (Acute) DVT prophylaxis (Acute) Acute on chronic respiratory failure with hypoxia and hypercapnia (Acute) Acute on chronic diastolic heart failure (Acute) CHF exacerbation (Acute) Acute exacerbation of chronic obstructive pulmonary disease (Acute) Hyponatremia (Acute) Pulmonary hypertension (Chronic) Hypoxia (Chronic) (HFpEF) heart failure with preserved ejection fraction (Chronic) Anxiety (Chronic) Dyspnea (Acute) Uterine mass (Acute) Not candidate for surgery at [facility] or [facility] [place].08/10/21. Had partial uterine artery embolization. Unable to complete 2/2 hypoxia. Acute anemia (Acute) Postmenopausal bleeding (Acute) Dyspnea on exertion (Acute) S/P left inguinal hernia repair (Acute) 01/21/19 Dr Odette Cormier, left Left inguinal hernia (Acute) Incarcerated inguinal hernia, unilateral (Acute) Small bowel obstruction (Acute) Dehydration (Acute) Hypertension (Chronic) Change in mental status (Acute) Cardiomyopathy (Acute) PUD (peptic ulcer disease) (Acute) Iron deficiency anemia due to chronic blood loss (Chronic) Chronic bronchitis with COPD (chronic obstructive pulmonary disease) (Acute) Alcohol abuse (Acute) COPD (chronic obstructive pulmonary disease) (Chronic) Medical History Alcoholic gastritis Former smoker Hyponatremia Mood disorder with psychosis Neck pain on right side Pneumonia Post-menopausal bleeding Pulmonary hypertension Respiratory failure with hypoxia Surgical History EGD - MAC (07/04/16) Social History Smoking/Tobacco Use Status: Former Tobacco Use Quit Date: 01/13/15 Smoking risk assessment performed?: Yes Alcohol Intake: former Drug use: Never Substance use type: does not use Do you feel safe at home: Yes Do you feel safe in your relationship?: Yes Exam Const General: cooperative, in distress moderate, severe and respiratory, not diap horetic and not ill appearing Orientation: alert, awake and oriented x3 Limitations: mental status not altered Neck Neck: normal visual inspection, full ROM, trachea midline, supple and no anterior neck swelling Thyroid: thyroid normal Carotids: normal carotid upstroke and no bruits Chest Chest: normal inspection of the chest Resp Effort & Inspection: labored and tachypneic Auscultation: crackles bilaterally at the base, diminished lung sounds and wheezes upper bilaterally Cardio Jugular venous pressure: no JVD Palpation: normal PMI Rate: regular rate Rhythm: regular rhythm Heart Sounds: S1 normal, S2 normal, no click, no gallops, no murmurs and no rubs Bruits: no abdominal aortic bruits and no carotid bruits Pulses: radial pulses present bilaterally 2+ GI Inspection: normal to inspection Palpation: soft, no aortic enlargement, no pulsatile masses and nontender Auscultation: normal bowel sounds Skin General skin exam: no rashes or lesions noted Neuro General: patient alert, patient awake, patient oriented x3, tone normal and moves all extremities Extrem General: pedal edema bilaterally pitting and 2+ Course Vital Signs Vital signs: Vital Signs Temperature 36.6 C 01/31/22 15:54 Pulse 85 01/31/22 15:54 Respiratory Rate 26 H 01/31/22 15:54 Blood Pressure 124/84 01/31/22 15:54 Pulse Oximetry 80 L 01/31/22 15:54 Temperature 36.6 C 01/31/22 15:54 Temperature Source Skin 01/31/22 15:54 Pulse 84 01/31/22 19:30 Respiratory Rate 25 H 01/31/22 19:47 Respiratory Effort 01/31/22 16:37 Respiratory Depth Normal 01/31/22 16:37 Respiratory Pattern Normal 01/31/22 16:22 Blood Pressure 119/46 L 01/31/22 19:30 Blood Pressure Position Sitting 01/31/22 15:54 Pulse Oximetry 94 01/31/22 19:51 Oxygen Delivery Method Bi-pap 01/31/22 16:37 Oxygen Flow Rate 2 01/31/22 15:54 Pain Level 0 01/31/22 15:54 Lab/Test Results Lab/Test Results: Laboratory Tests Range/Units 01/31/22 01/31/22 01/31/22 16:30 16:30 19:07 WBC (4.4-10.8) 10^3/uL 7.76 RBC (3.93-5.22) 10^6/uL 4.21 Hgb (11.2-15.7) g/dL 11.0 L Hct (36.0-46.0) % 36.2 MCV (80-95) fL 86 MCH (27.0-33.0) pg 26.1 L MCHC (32.0-36.0) % 30.4 L RDW (11.7-14.6) % 16.0 H Plt Count (130-400) 10^3/uL 259 MPV (8.0-11.0) fL 8.9 Immature Gran % 0.4 Neutrophils % 75.7 Lymphocytes % 8.8 Monocytes % 13.8 Eosinophils % 0.9 Basophils % 0.4 Nucleated RBC % (0.0-0.3) % 0.0 Absolute Neutrophils (1.2-6.7) 10^3/uL 5.88 Absolute Lymphocytes (1.2-3.4) 10^3/uL 0.68 L Absolute Monocytes (0.1-0.8) 10^3/uL 1.07 H Absolute Eosinophils (0.0-0.7) 10^3/uL 0.07 Absolute Basophils (0.0-0.2) 10^3/uL 0.03 Sodium (136-145) mmol/L 134 L Potassium (3.5-5.1) mmol/L 4.5 Chloride (98-107) mmol/L 92 L Carbon Dioxide (21.0-32.0) mmol/L 39.9 H Anion Gap (3-11) mmol/L 2.1 L BUN (7-18) mg/dL 22 H Creatinine (0.55-1.02) mg/dL 1.3 H Estimated GFR/1.73 m2 (mL/min/1.73m2) 41.37 Glucose (74-106) mg/dL 102 Calcium (8.5-10.1) mg/dL 8.6 Magnesium (1.8-2.4) mg/dL 1.9 Total Bilirubin (0.2-1.0) mg/dL 0.2 AST (15-37) U/L 16 ALT (14-59) U/L 19 Alkaline Phosphatase (46-116) U/L 70 Troponin I (<or=60) ng/L < 50 NT-Pro-B Natriuret Pep (<300) pg/mL 798 H Total Protein (6.4-8.2) g/dL 6.4 Albumin (3.4-5.0) g/dL 3.1 L COVID-19 Source Nasopharynx Range/Units 01/31/22 19:25 WBC (4.4-10.8) 10^3/uL RBC (3.93-5.22) 10^6/uL Hgb (11.2-15.7) g/dL Hct (36.0-46.0) % MCV (80-95) fL MCH (27.0-33.0) pg MCHC (32.0-36.0) % RDW (11.7-14.6) % Plt Count (130-400) 10^3/uL MPV (8.0-11.0) fL Immature Gran % Neutrophils % Lymphocytes % Monocytes % Eosinophils % Basophils % Nucleated RBC % (0.0-0.3) % Absolute Neutrophils (1.2-6.7) 10^3/uL Absolute Lymphocytes (1.2-3.4) 10^3/uL Absolute Monocytes (0.1-0.8) 10^3/uL Absolute Eosinophils (0.0-0.7) 10^3/uL Absolute Basophils (0.0-0.2) 10^3/uL Sodium (136-145) mmol/L Potassium (3.5-5.1) mmol/L Chloride (98-107) mmol/L Carbon Dioxide (21.0-32.0) mmol/L Anion Gap (3-11) mmol/L BUN (7-18) mg/dL Creatinine (0.55-1.02) mg/dL Estimated GFR/1.73 m2 (mL/min/1.73m2) Glucose (74-106) mg/dL Calcium (8.5-10.1) mg/dL Magnesium (1.8-2.4) mg/dL Total Bilirubin (0.2-1.0) mg/dL AST (15-37) U/L ALT (14-59) U/L Alkaline Phosphatase (46-116) U/L Troponin I (<or=60) ng/L < 50 NT-Pro-B Natriuret Pep (<300) pg/mL Total Protein (6.4-8.2) g/dL Albumin (3.4-5.0) g/dL COVID-19 Source
[2022-01-31 20:16] LABS: HCO3 (Venous) 43 mmol/L (23-28); O2 Sat (Venous) 82 %; TCO2 (Venous) 40 mmol/L (24-29); pH (Venous) 7.34 (7.31-7.41); pO2 (Venous) 50 mmHg
[2022-01-31 20:19] LABS: COVID-19 PCR Negative (Negative)
[2022-01-31 20:37] LABS: BE (Venous) > 15 mmol/L (-2-3); pCO2 (Venous) 80 mmHg (41-51)
[2022-01-31 20:50] LABS: Lab Add On Test DONE
[2022-01-31 21:50] LABS: Procalcitonin 0.1 ng/mL
--- NOTE | 2022-01-31 22:50 | W.PM.HP.N ---
Date of service: 01/31/22 Time of Service: 22:50 Assessment and Plan Assessment and plan (1) Acute on chronic respiratory failure with hypoxia and hypercapnia: Status: Acute Assessment and plan: Primarily due to an acute exacerbation of chronic diastolic CHF, but COPD exacerbation cannot be entirely ruled out. Will treat with BiPAP, IV lasix 80 mg IV BID, bronchodilators, prednisone 40 mg daily. Procalcitonin low - no role for abx. We need to confirm the patient's medications - she is not sure what medications she takes and her daughter usually manages them for her. The trigger was most likely dietary salt indiscretion. (2) Acute on chronic diastolic heart failure: Status: Acute Assessment and plan: As above (3) Acute exacerbation of chronic obstructive pulmonary disease: Status: Acute Assessment and plan: As above (4) Pulmonary hypertension: Status: Chronic Assessment and plan: Per last echo, her pulmonary pressures could not be assessed. She is certainly at high risk of having pulmonary hypertension. Debbie. (5) DVT prophylaxis: Status: Acute Assessment and plan: Sc enoxaparin (6) Discharge planning issues: Status: Acute Assessment and plan: DNR/DNI. We will verify whether the patient is truly on hospice and, if so, she can hopefully be transferred to hospice for remainder of her hospitalization. History of Present Illness History of Present Illness Chief Complaint: Shortness of breath Narrative: Mr Hernandez is a 61 year old female with PMHx of oxygen-dependent COPD, cardiomyopathy/chronic diastolic CHF, pulmonary hypertension, chronic hypoxic respiratory failure on 2L of O2 by NC, chronic hyponatremia, who returned to [facility] ED Today c/o shortness of breath x months, especially so over the last month. The patient admits to having a lot of salt hidden in her diet, knows she has gained weight, endorses orthopnea, PND, and leg swelling.She was evaluated in our ER yesterday for the same symptoms, was found to have an acute exacerbation of her diastolic CHF and was sent home on an increased dose of furosemide. She cannot tell me the doses of her medications, unfortunately. Today, the patient was saturating 80-84% on her usual 2L of O2 and was in enough respiratory distress to warrant initiation of BiPAP (I am unable to locate settings in the medical record at this time). She also received a bolus of 80 mg of IV lasix, methylprednisoone 125 mg, a push of morphine 4 mg x1, and bronchodilators. With these measures, the patient was able to be weaned off of BiPAP to regular nasal canula - 3L. Admission to the hospitalist service was requested. The patient told me that she is on hospice and is DNR/DNI. She says she did not call her hospice team prior to coming to the hospital today, and we were not aware of her hospice status until after her admission to the medical service. Review of Systems All systems reviewed & are unremarkable except as noted in HPI and below PFSH All Active Problems (Updated 01/31/22 @ 23:53 by Laura Mars MD) Discharge planning issues (Acute) DVT prophylaxis (Acute) Acute on chronic respiratory failure with hypoxia and hypercapnia (Acute) Acute on chronic diastolic heart failure (Acute) CHF exacerbation (Acute) Acute exacerbation of chronic obstructive pulmonary disease (Acute) Hyponatremia (Acute) Pulmonary hypertension (Chronic) Hypoxia (Chronic) (HFpEF) heart failure with preserved ejection fraction (Chronic) Anxiety (Chronic) Dyspnea (Acute) Uterine mass (Acute) Not candidate for surgery at [facility] or [facility].08/10/21. Had partial uterine artery embolization. Unable to complete 2/2 hypoxia. Acute anemia (Acute) Postmenopausal bleeding (Acute) Dyspnea on exertion (Acute) S/P left inguinal hernia repair (Acute) 01/21/19 Dr Odette Cormier, left Left inguinal hernia (Acute) Incarcerated inguinal hernia, unilateral (Acute) Small bowel obstruction (Acute) Dehydration (Acute) Hypertension (Chronic) Change in mental status (Acute) Cardiomyopathy (Acute) PUD (peptic ulcer disease) (Acute) Iron deficiency anemia due to chronic blood loss (Chronic) Chronic bronchitis with COPD (chronic obstructive pulmonary disease) (Acute) Alcohol abuse (Acute) COPD (chronic obstructive pulmonary disease) (Chronic) Medical History Alcoholic gastritis Former smoker Hyponatremia Mood disorder with psychosis Neck pain on right side Pneumonia Post-menopausal bleeding Pulmonary hypertension Respiratory failure with hypoxia Surgical History EGD - MAC (07/04/16) Social History Smoking/Tobacco Use Status: Former Tobacco Use Quit Date: 01/13/15 Smoking risk assessment performed?: Yes Alcohol Intake: former Drug use: Never Substance use type: does not use Do you feel safe at home: Yes Do you feel safe in your relationship?: Yes Meds Allergies and Home Medications Allergies Allergy/AdvReac Type Severity Reaction Status Date / Time No Known Allergies Allergy Verified 12/08/21 10:32 Home Medications Medication Instructions Recorded Confirmed Type fluoxetine 20 mg capsule 20 mg PO DAILY 01/14/19 01/31/22 History acetaminophen 325 mg tablet 650 mg PO PRN PRN 01/21/19 01/31/22 History multivitamin 1 tab DAILY 11/17/19 01/31/22 History tiotropium 2.5 mcg-olodaterol 2.5 2 puff inhalation DAILY 09/15/20 01/31/22 History mcg/actuation mist for inhalation (Stiolto Respimat) fluticasone propionate 220 1 puff inhalation BID 07/26/21 01/31/22 History mcg/actuation HFA aerosol inhaler (Flovent HFA) lorazepam 0.5 mg tablet 0.5 mg PO DAILY PRN PRN 07/26/21 01/31/22 History nystatin 100,000 unit/gram topical 1 applic topical DIRECTED 07/26/21 01/31/22 History powder (Nystop) ipratropium bromide 0.02 % 0.25 mg (1.25 mL) UPD BID #60 mL 07/29/21 01/31/22 Rx solution for inhalation ipratropium bromide 0.02 % 0.5 mg (2.5 mL) UPD Q4H PRN PRN 07/29/21 01/31/22 Rx solution for inhalation #150 mL levalbuterol HCl 1.25 mg/3 mL 1.25 mg (3 mL) UPD BID #60 mL 07/29/21 01/31/22 Rx solution for nebulization levalbuterol HCl 1.25 mg/3 mL 1.25 mg (3 mL) UPD Q4H PRN PRN #90 07/29/21 01/31/22 Rx solution for nebulization mL levalbuterol tartrate 45 2 puff inhalation Q4H PRN PRN #15 07/29/21 01/31/22 Rx mcg/actuation aerosol inhaler grams metoprolol succinate 100 mg 200 mg PO HS #60 tabs 07/29/21 01/31/22 Rx tablet,extended release 24 hr norethindrone acetate 5 mg tablet 10 mg PO BID #240 tabs 11/14/21 01/31/22 Rx chlorthalidone 25 mg tablet 1 tab PO 1XD 12/30/21 01/31/22 History lisinopril 20 mg tablet tab 12/30/21 12/30/21 History nortriptyline 25 mg capsule 1 cap PO 1XD 12/30/21 01/31/22 History pantoprazole 40 mg tablet,delayed 40 tab PO 1XD 12/30/21 01/31/22 History release (Protonix) spironolactone 50 mg tablet 50 mg PO 1XD 12/30/21 01/31/22 History furosemide 40 mg tablet 80 mg PO BID 01/31/22 01/31/22 History prednisone 20 mg tablet 80 mg PO DAILY 01/31/22 01/31/22 History Exam Narrative Exam Narrative: General: Pleasant middle-aged female who appears older than her stated age, speaking in 3-5 word sentences, appears dyspneic Neurological: A&Ox3, no focal deficits Psychiatric: Mildly anxious Skin: Visible skin intact; ichthiosis BLEs HEENT: Atraumatic, normocephalic, EOMI, dry MM, clear oropharynx (dentures in place), no submandibular or cervical lymphadenopathy, no goiter or JVD Cardiovascular: RRR,no m/r/g Lungs: rales at B bases Gastrointestinal: soft, nontender, nondistended Genitourinary: deferred Extremities: +1 BLE edema, symmetric Results Imaging Additional studies: CXR: No focal pneumonia or pneumothorax. Labs Result diagrams: 01/31/22 16:30 01/31/22 16:30 Labs: Laboratory Results - last 24 hr 01/31/22 01/31/22 01/31/22 16:30 16:30 19:07 WBC 7.76 RBC 4.21 Hgb 11.0 L Hct 36.2 MCV 86 MCH 26.1 L MCHC 30.4 L RDW 16.0 H Plt Count 259 MPV 8.9 Immature Gran % 0.4 Neutrophils % 75.7 Lymphocytes % 8.8 Monocytes % 13.8 Eosinophils % 0.9 Basophils % 0.4 Nucleated RBC % 0.0 Absolute Neutrophils 5.88 Absolute Lymphocytes 0.68 L Absolute Monocytes 1.07 H Absolute Eosinophils 0.07 Absolute Basophils 0.03 VBG pH VBG pCO2 VBG pO2 VBG HCO3 VBG Total CO2 VBG O2 Saturation VBG Base Excess Sodium 134 L Potassium 4.5 Chloride 92 L Carbon Dioxide 39.9 H Anion Gap 2.1 L BUN 22 H Creatinine 1.3 H Estimated GFR/1.73 m2 41.37 Glucose 102 Calcium 8.6 Magnesium 1.9 Total Bilirubin 0.2 AST 16 ALT 19 Alkaline Phosphatase 70 Troponin I < 50 NT-Pro-B Natriuret Pep 798 H Total Protein 6.4 Albumin 3.1 L Procalcitonin COVID-19 Source Nasopharynx SARS-CoV-2 (PCR) Negative Add-On Test Request 01/31/22 01/31/22 01/31/22 19:25 19:25 19:25 WBC RBC Hgb Hct MCV MCH MCHC RDW Plt Count MPV Immature Gran % Neutrophils % Lymphocytes % Monocytes % Eosinophils % Basophils % Nucleated RBC % Absolute Neutrophils Absolute Lymphocytes Absolute Monocytes Absolute Eosinophils Absolute Basophils VBG pH VBG pCO2 VBG pO2 VBG HCO3 VBG Total CO2 VBG O2 Saturation VBG Base Excess Sodium Potassium Chloride Carbon Dioxide Anion Gap BUN Creatinine Estimated GFR/1.73 m2 Glucose Calcium Magnesium Total Bilirubin AST ALT Alkaline Phosphatase Troponin I < 50 NT-Pro-B Natriuret Pep Total Protein Albumin Procalcitonin 0.1 COVID-19 Source SARS-CoV-2 (PCR) Add-On Test Request DONE 01/31/22 20:08 WBC RBC Hgb Hct MCV MCH MCHC RDW Plt Count MPV Immature Gran % Neutrophils % Lymphocytes % Monocytes % Eosinophils % Basophils % Nucleated RBC % Absolute Neutrophils Absolute Lymphocytes Absolute Monocytes Absolute Eosinophils Absolute Basophils VBG pH 7.34 VBG pCO2 80 H* VBG pO2 50 VBG HCO3 43 H VBG Total CO2 40 H VBG O2 Saturation 82 VBG Base Excess > 15 H Sodium Potassium Chloride Carbon Dioxide Anion Gap BUN Creatinine Estimated GFR/1.73 m2 Glucose Calcium Magnesium Total Bilirubin AST ALT Alkaline Phosphatase Troponin I NT-Pro-B Natriuret Pep Total Protein Albumin Procalcitonin COVID-19 Source SARS-CoV-2 (PCR) Add-On Test Request Last Vital Signs Temp 36.6 C 01/31/22 15:54 Pulse 83 01/31/22 20:00 Resp 18 01/31/22 20:35 BP 95/63 L 01/31/22 20:00 Pulse Ox 93 01/31/22 20:28
[2022-01-31] MEDS: Enoxaparin 40 MG/0.4 ML SYR SC (23:34)
--- NOTE | 2022-01-31 23:34 | NUR.NOTE ---
Nursing Note: [phone] Evonne Lucio
[2022-02-01] VITALS (70 sets, daily range): BP systolic 117–196; BP diastolic 60–151; PULSE 71–117; RESP 2–35; TEMP 31–37.4; O2SAT 80–99
[2022-02-01] MEDS: Metoprolol CR 100 MG TABCR 200 MG PO (01:05)
[2022-02-01] MEDS: Levalbuterol 1.25 MG/3 ML UPD VIAL UPD ×2 (05:27→08:58)
--- NOTE | 2022-02-01 05:45 | W.PM.PROGNOT ---
Date of Service Date of service: 02/01/22 Time of Service: 05:45 Subjective Subjective Interval history since last seen: I came to emergently evaluate the patient who, after being on BiPAP overnight for several hours, all of a sudden woke up, tearing off her BiPAP, tremulous and not making direct eye contact, yet having purposeful movements. She is not following commands or answering questions. 2 mg of IV ativan total given with improvement in tremors and restlessness, but dyspnea with hypoventilation continued. Difficult to get an adequate O2 sat with probes available to us, but the patient seems to have O2 sats in the 70s on 5L of O2. Lasix 80 mg IV x 1, morphine prn, matamoros catheter. levalbuterol given. I called the patient's /daughter at the number on the chart - no response - left a voicemail. I reached out to [facility] nurse pipeline superintendent division - the patient is NOT currently enrolled into their hospice program, but is on their home health program. Given this, I think the patient should be upgraded to the ICU. I ordered a stat ABG and am transferring her to the ICU. I placed a palliative care consult. If the patient does not tolerate BiPAP, while humidified heated high flow is not ideal in hypercapnic failure, it might be more comfortable for her than a nonrebreather at 15 L that she currently has on her. Total Critical Care Time 45 minutes. Objective Last Vital Signs Temp 36.6 C 01/31/22 15:54 Pulse 87 02/01/22 00:38 Resp 20 01/31/22 23:10 BP 158/82 H 01/31/22 22:14 Pulse Ox 94 02/01/22 00:38 Laboratory Results - last 24 hr 01/31/22 01/31/22 01/31/22 16:30 16:30 19:07 WBC 7.76 RBC 4.21 Hgb 11.0 L Hct 36.2 MCV 86 MCH 26.1 L MCHC 30.4 L RDW 16.0 H Plt Count 259 MPV 8.9 Immature Gran % 0.4 Neutrophils % 75.7 Lymphocytes % 8.8 Monocytes % 13.8 Eosinophils % 0.9 Basophils % 0.4 Nucleated RBC % 0.0 Absolute Neutrophils 5.88 Absolute Lymphocytes 0.68 L Absolute Monocytes 1.07 H Absolute Eosinophils 0.07 Absolute Basophils 0.03 VBG pH VBG pCO2 VBG pO2 VBG HCO3 VBG Total CO2 VBG O2 Saturation VBG Base Excess Sodium 134 L Potassium 4.5 Chloride 92 L Carbon Dioxide 39.9 H Anion Gap 2.1 L BUN 22 H Creatinine 1.3 H Estimated GFR/1.73 m2 41.37 Glucose 102 Calcium 8.6 Magnesium 1.9 Total Bilirubin 0.2 AST 16 ALT 19 Alkaline Phosphatase 70 Troponin I < 50 NT-Pro-B Natriuret Pep 798 H Total Protein 6.4 Albumin 3.1 L Procalcitonin COVID-19 Source Nasopharynx SARS-CoV-2 (PCR) Negative Add-On Test Request 01/31/22 01/31/22 01/31/22 19:25 19:25 19:25 WBC RBC Hgb Hct MCV MCH MCHC RDW Plt Count MPV Immature Gran % Neutrophils % Lymphocytes % Monocytes % Eosinophils % Basophils % Nucleated RBC % Absolute Neutrophils Absolute Lymphocytes Absolute Monocytes Absolute Eosinophils Absolute Basophils VBG pH VBG pCO2 VBG pO2 VBG HCO3 VBG Total CO2 VBG O2 Saturation VBG Base Excess Sodium Potassium Chloride Carbon Dioxide Anion Gap BUN Creatinine Estimated GFR/1.73 m2 Glucose Calcium Magnesium Total Bilirubin AST ALT Alkaline Phosphatase Troponin I < 50 NT-Pro-B Natriuret Pep Total Protein Albumin Procalcitonin 0.1 COVID-19 Source SARS-CoV-2 (PCR) Add-On Test Request DONE 01/31/22 20:08 WBC RBC Hgb Hct MCV MCH MCHC RDW Plt Count MPV Immature Gran % Neutrophils % Lymphocytes % Monocytes % Eosinophils % Basophils % Nucleated RBC % Absolute Neutrophils Absolute Lymphocytes Absolute Monocytes Absolute Eosinophils Absolute Basophils VBG pH 7.34 VBG pCO2 80 H* VBG pO2 50 VBG HCO3 43 H VBG Total CO2 40 H VBG O2 Saturation 82 VBG Base Excess > 15 H Sodium Potassium Chloride Carbon Dioxide Anion Gap BUN Creatinine Estimated GFR/1.73 m2 Glucose Calcium Magnesium Total Bilirubin AST ALT Alkaline Phosphatase Troponin I NT-Pro-B Natriuret Pep Total Protein Albumin Procalcitonin COVID-19 Source SARS-CoV-2 (PCR) Add-On Test Request
[2022-02-01] MEDS: Furosemide 40 MG/4 ML VIAL 80 MG IVP (06:07)
[2022-02-01] MEDS: LORazepam 20 MG/10 ML VIAL IVP ×4 (06:09→22:55)
--- NOTE | 2022-02-01 06:15 | DI.RAD_ITS ---
Exam(s) XR PORTABLE CHEST AP EXAM: XR PORTABLE CHEST AP CLINICAL HISTORY: respiratory distress TECHNIQUE: 2D digital imaging was performed. COMPARISON: CR XR CHEST 2V PA LATERAL from 01/11/2022 FINDINGS: LUNGS: Fibrotic changes. No superimposed infiltrate . No pleural abnormality seen. HEART: Within normal limits in size.. AORTA: Tortuous. Normal diameter. Mild calcification. BONES: Scoliosis and degenerative changes.. Soft tissues: Unremarkable. IMPRESSION: No acute findings. DATA REPOSITORY: RADIATION DOSE DELIVERED:
[2022-02-01 06:22] LABS: Abs Immature Grans 0.06 10^3/uL (0.0-0.06); Absolute Basophil Count 0.01 10^3/uL (0.0-0.2); Absolute Lymphocyte Count 0.31 10^3/uL (1.2-3.4); Absolute Monocyte Count 0.06 10^3/uL (0.1-0.8); Absolute Neutrophil Count 5.44 10^3/uL (1.2-6.7); Basophils % 0.2; HCT 40.3 % (36.0-46.0); HGB 11.8 g/dL (11.2-15.7); Lymphocytes % 5.3; MCH 25.8 pg (27.0-33.0); MCHC 29.3 % (32.0-36.0); MCV 88 fL (80-95); MPV 9.7 fL (8.0-11.0); Neutrophils % 92.5; Platelet Count 248 10^3/uL (130-400); RBC 4.58 10^6/uL (3.93-5.22); RDW 15.9 % (11.7-14.6); RDW-SD 51.1 fL; WBC 5.88 10^3/uL (4.4-10.8)
[2022-02-01 06:33] LABS: HCO3 46 mmol/L (22-26); pH 7.32 (7.35-7.45); pO2 52 mmHg (80-105); sO2 85 % (95-98); tCO2 43 mmol/L (23-27)
[2022-02-01 06:35] LABS: Anion Gap 0.5 mmol/L (3-11); BUN 22 mg/dL (7-18); CO2 41.5 mmol/L (21.0-32.0); CREATININE 1.1 mg/dL (0.55-1.02); Calcium 8.6 mg/dL (8.5-10.1); Chloride 93 mmol/L (98-107); Estimated GFR 50.17 (mL/min/1.73m2); Glucose 192 mg/dL (74-106); Magnesium 1.9 mg/dL (1.8-2.4); Potassium 4.9 mmol/L (3.5-5.1); Sodium 135 mmol/L (136-145)
[2022-02-01 06:38] LABS: BE > 15 mmol/L (-2-3); FIO2 40 %; Site Left Radial; pCO2 89 mmHg (35-45)
[2022-02-01] MEDS: Normal Saline Flush 10 ML SYR IVP ×5 (06:53→22:41)
[2022-02-01] MEDS: MORPHine 2 MG/ML SYR 1 MG IVP (06:54)
[2022-02-01 07:08] LABS: Creatine Kinase 78 U/L (26-192)
--- NOTE | 2022-02-01 07:47 | DI.VRAD_ITS ---
PROCEDURE INFORMATION: Exam: XR Chest Exam date and time: 02/01/2022 6:55 AM Age: 61 years old Clinical indication: Other: Respiratory distress TECHNIQUE: Imaging protocol: Radiologic exam of the chest. Views: 1 view. COMPARISON: 1. XR PORTABLE CHEST AP 01/31/2022 5:31 PM 2. CR XR CHEST 2V PA LATERAL 01/11/2022 10:02 AM FINDINGS: Lungs: There is unchanged minimal linear subsegmental atelectasis versus scarring in the lateral mid lung regions. There is no new consolidation or pulmonary edema. The pulmonary vasculature is normal in caliber. Pleural spaces: Unremarkable. No pleural effusion or pneumothorax. Heart/Mediastinum: Heart size is normal. The thoracic aorta is tortuous and calcified. Cardiomediastinal contours are stable. Bones/joints: Degenerative changes. No acute osseous abnormality. IMPRESSION: No acute cardiopulmonary abnormality. Dictated and Authenticated by: Chanel Ring MD. Ordering:LON Sanchez MD
[2022-02-01] MEDS: Ipratropium 0.5 MG/2.5 ML UPD VIAL UPD ×4 (09:00→19:43)
[2022-02-01] MEDS: Multivitamin TAB 1 TAB PO (09:06)
[2022-02-01] MEDS: Pantoprazole 40 MG TABCR PO (09:06)
[2022-02-01] MEDS: FLUoxetine 20 MG CAP PO (09:06)
[2022-02-01] MEDS: Spironolactone 50 MG TAB PO (09:06)
--- NOTE | 2022-02-01 09:20 | W.PULMCC ---
General Date of Service Date of service: 02/01/22 Time of Service: 08:15 Reason for Admission to ICU: Hypoxic and hypercapnic respiratory failure Assessment and Plan Assessment and plan (1) Acute on chronic respiratory failure with hypoxia and hypercapnia: Status: Acute (2) Acute on chronic diastolic heart failure: Status: Acute (3) Acute exacerbation of chronic obstructive pulmonary disease: Status: Acute (4) Pulmonary hypertension: Status: Chronic Assessment and plan: This is a chronically ill 61 yo female who is admitted for acute on chronic hypoxic and hypercapnic respiratory failure. Her serum bicarb is chronically elevated indicative of chronic hypercapnea. Nocturnal NIV will likely be beneficial to her moving forward, so I will see her in follow up for this and for her COPD. She improved with BiPAP and diuresis. I do believe her main acute issue is CHF exacerbation, as opposed to COPD, however with her severely limited PFT's it is reasonable to treat her with a short burst of prednisone. Her COPD meds have been continued and she is being diuresed. Recommendations Pulmonary: Acute on chronic hypoxic and hypercapnic respiratory failure - continue with BiPAP while sleeping - HFNC or nasal cannula while awake as tolerated - IS and Acapella as able - OOB to chair as able Severe COPD - continued on pamela inhalers - Stiolto and Asmanex (on Flovent at home) - Xopenex and Atrovent nebs QID - prednisone 40mg for 5 days Pulmonary Hypertension, group 2 and 3 - optimization of pulmonary and cardiac disease Cardiac: CHF exacerbation - is being diuresed effectively - net negative 1 L in 24 hours recommended - BiPAP as above HTN - continue home meds as able Renal: Strict I/O's I&O: Intake & Output 01/29/22 01/30/22 01/31/22 02/01/22 23:59 23:59 23:59 23:59 Output Total 350 / 350 1100 / 1100 Balance -350 / -350 -1100 / -1100 Weight 79.832 kg 80 kg Daily Fluid Goal:: negative 1 L in 24 hours GI Nutrition: ok for PO diet Infectious Disease: No acute concerns Hematologic: No acute concerns Neurologic: No acute concerns - was obtunded but this improved with treatment Endocrine: no acute concerns Lines: PIV Munoz Prophylaxis: Lovenox Protonix (home med) Code Status: Resuscitation Status Full Code Subjective Critical and life-threatening events over the past 24 hours: This is a chronically ill woman with COPD, CHF, pulmonary hypertension and chronic hypoxic and hypercapnic respiratory failure on 2LPM at home who is admitted for worsening respiratory failure. She has had shortness of breath over the last month, which has worsened. She has gained weight, eaten alot of salt, increased leg swelling as trouble laying flat due to breathlessness. She require BiPAP in the Ed for her respiratory failure which improved her status clinically. She has been given Lasix, bronchodilators and prednisone. Her CXR does not show an obvious pneumonia, but is consistent with a volume overloaded state, worse than prior films. On my assessment she says she is feeling a bit better and breathing ok now. He denies chest pain. She is hungry. Exam Narrative Exam Narrative: Gen: NAD, normal respiratory effort, obese HENT: PERRL Chest: No respiratory distress, normal appearance of chest, diminished breath sounds Heart: regular rate and rhythym, no murmurs, rubs or gallops Abdomen: Non-distended, soft, non tender Extremities: No clubbing, 2+ edema, cyanosis, rashes Neuro: AAOx3 , non focal Psych: cooperative, appropriate mental affect Most Recent VS/Results Last Vital Signs Temp 36.6 C 01/31/22 15:54 Pulse 91 H 02/01/22 08:58 Resp 27 H 02/01/22 08:58 BP 127/60 02/01/22 04:00 Pulse Ox 93 02/01/22 08:58 Laboratory Results - last 24 hr 01/31/22 01/31/22 01/31/22 16:30 16:30 19:07 WBC 7.76 RBC 4.21 Hgb 11.0 L Hct 36.2 MCV 86 MCH 26.1 L MCHC 30.4 L RDW 16.0 H Plt Count 259 MPV 8.9 Immature Gran % 0.4 Neutrophils % 75.7 Lymphocytes % 8.8 Monocytes % 13.8 Eosinophils % 0.9 Basophils % 0.4 Nucleated RBC % 0.0 Absolute Neutrophils 5.88 Absolute Lymphocytes 0.68 L Absolute Monocytes 1.07 H Absolute Eosinophils 0.07 Absolute Basophils 0.03 ABG Sample Site ABG pH ABG pCO2 ABG pO2 ABG HCO3 ABG Total CO2 ABG O2 Saturation ABG Base Excess VBG pH VBG pCO2 VBG pO2 VBG HCO3 VBG Total CO2 VBG O2 Saturation VBG Base Excess FiO2 Sodium 134 L Potassium 4.5 Chloride 92 L Carbon Dioxide 39.9 H Anion Gap 2.1 L BUN 22 H Creatinine 1.3 H Estimated GFR/1.73 m2 41.37 Glucose 102 Calcium 8.6 Magnesium 1.9 Total Bilirubin 0.2 AST 16 ALT 19 Alkaline Phosphatase 70 Creatine Kinase Troponin I < 50 NT-Pro-B Natriuret Pep 798 H Total Protein 6.4 Albumin 3.1 L Procalcitonin Prolactin COVID-19 Source Nasopharynx SARS-CoV-2 (PCR) Negative Add-On Test Request 01/31/22 01/31/22 01/31/22 19:25 19:25 19:25 WBC RBC Hgb Hct MCV MCH MCHC RDW Plt Count MPV Immature Gran % Neutrophils % Lymphocytes % Monocytes % Eosinophils % Basophils % Nucleated RBC % Absolute Neutrophils Absolute Lymphocytes Absolute Monocytes Absolute Eosinophils Absolute Basophils ABG Sample Site ABG pH ABG pCO2 ABG pO2 ABG HCO3 ABG Total CO2 ABG O2 Saturation ABG Base Excess VBG pH VBG pCO2 VBG pO2 VBG HCO3 VBG Total CO2 VBG O2 Saturation VBG Base Excess FiO2 Sodium Potassium Chloride Carbon Dioxide Anion Gap BUN Creatinine Estimated GFR/1.73 m2 Glucose Calcium Magnesium Total Bilirubin AST ALT Alkaline Phosphatase Creatine Kinase Troponin I < 50 NT-Pro-B Natriuret Pep Total Protein Albumin Procalcitonin 0.1 Prolactin COVID-19 Source SARS-CoV-2 (PCR) Add-On Test Request DONE 01/31/22 02/01/22 02/01/22 20:08 05:07 05:07 WBC 5.88 RBC 4.58 Hgb 11.8 Hct 40.3 MCV 88 MCH 25.8 L MCHC 29.3 L RDW 15.9 H Plt Count 248 MPV 9.7 Immature Gran % 1.0 Neutrophils % 92.5 Lymphocytes % 5.3 Monocytes % 1.0 Eosinophils % 0.0 Basophils % 0.2 Nucleated RBC % 0.0 Absolute Neutrophils 5.44 Absolute Lymphocytes 0.31 L Absolute Monocytes 0.06 L Absolute Eosinophils 0.00 Absolute Basophils 0.01 ABG Sample Site ABG pH ABG pCO2 ABG pO2 ABG HCO3 ABG Total CO2 ABG O2 Saturation ABG Base Excess VBG pH 7.34 VBG pCO2 80 H* VBG pO2 50 VBG HCO3 43 H VBG Total CO2 40 H VBG O2 Saturation 82 VBG Base Excess > 15 H FiO2 Sodium 135 L Potassium 4.9 Chloride 93 L Carbon Dioxide 41.5 H Anion Gap 0.5 L BUN 22 H Creatinine 1.1 H Estimated GFR/1.73 m2 50.17 Glucose 192 H Calcium 8.6 Magnesium 1.9 Total Bilirubin AST ALT Alkaline Phosphatase Creatine Kinase Troponin I NT-Pro-B Natriuret Pep Total Protein Albumin Procalcitonin Prolactin COVID-19 Source SARS-CoV-2 (PCR) Add-On Test Request 02/01/22 02/01/22 02/01/22 05:07 05:07 06:25 WBC RBC Hgb Hct MCV MCH MCHC RDW Plt Count MPV Immature Gran % Neutrophils % Lymphocytes % Monocytes % Eosinophils % Basophils % Nucleated RBC % Absolute Neutrophils Absolute Lymphocytes Absolute Monocytes Absolute Eosinophils Absolute Basophils ABG Sample Site Left Radial ABG pH 7.32 L ABG pCO2 89 H* ABG pO2 52 L ABG HCO3 46 H ABG Total CO2 43 H ABG O2 Saturation 85 L ABG Base Excess > 15 H VBG pH VBG pCO2 VBG pO2 VBG HCO3 VBG Total CO2 VBG O2 Saturation VBG Base Excess FiO2 40 Sodium Potassium Chloride Carbon Dioxide Anion Gap BUN Creatinine Estimated GFR/1.73 m2 Glucose Calcium Magnesium Total Bilirubin AST ALT Alkaline Phosphatase Creatine Kinase 78 Troponin I NT-Pro-B Natriuret Pep Total Protein Albumin Procalcitonin Prolactin Cancelled COVID-19 Source SARS-CoV-2 (PCR) Add-On Test Request Review of Systems All systems reviewed & are unremarkable except as noted in HPI and below Time spent with patient Time spent in Critical Care: 40 Time spent in Critical care included: Coordination of care, Chart review, Documenting critically ill care, Time at immediate bedside and Discussing critically ill care with other medical staff Multi-Disciplinary Checklist Lines/Tubes CENTRAL LINE: no ARTERIAL LINE: no MUNOZ: yes, Munoz Day#: 1 ENDOTRACHEAL TUBE: no ICU Maintenance GLUCOSE 140-180mg/dL: yes NUTRITION AT GOAL: yes PRESSURE ULCER: no RESTRAINTS: no ANTIBIOTICS(if yes, consider Stewardship): No Social Issues FAMILY UPDATED: no, Reason/Intervention: deferred to hospitalist service GOALS/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
--- NOTE | 2022-02-01 09:23 | PDOC.CMIN ---
- If Service Date Differs Date of service: 02/01/22 Time of Service: 09:23 Care Management Initial Assess REASON FOR HOSPITALIZATION:: Acute on chronic hypoxic respiratory failure PAST MEDICAL HISTORY/PAST SURGICAL HISTORY:: All Active Problems. Discharge planning issues (Acute). DVT prophylaxis (Acute). Acute on chronic respiratory failure with hypoxia and hypercapnia (Acute). Acute on chronic diastolic heart failure (Acute). CHF exacerbation (Acute). Acute exacerbation of chronic obstructive pulmonary disease (Acute). Hyponatremia (Acute). Pulmonary hypertension (Chronic). Hypoxia (Chronic). (HFpEF) heart failure with preserved ejection fraction (Chronic). Anxiety (Chronic). Dyspnea (Acute). Uterine mass (Acute). Not candidate for surgery at [facility] or [facility]. Had partial uterine artery embolization. Unable to complete 2/2 hypoxia. Acute anemia (Acute). Postmenopausal bleeding (Acute). Dyspnea on exertion (Acute). S/P left inguinal hernia repair (Acute). 01/21/19 Dr Odette Cormier, left. Left inguinal hernia (Acute). Incarcerated inguinal hernia, unilateral (Acute). Small bowel obstruction (Acute). Dehydration (Acute). Hypertension (Chronic). Change in mental status (Acute). Cardiomyopathy (Acute). PUD (peptic ulcer disease) (Acute). Iron deficiency anemia due to chronic blood loss (Chronic). Chronic bronchitis with COPD (chronic obstructive pulmonary disease) (Acute). Alcohol abuse (Acute). COPD (chronic obstructive pulmonary disease) (Chronic). Medical History. Alcoholic gastritis. Former smoker. Hyponatremia. Mood disorder with psychosis. Neck pain on right side. Pneumonia. Post-menopausal bleeding. Pulmonary hypertension. Respiratory failure with hypoxia. Surgical History. EGD - MAC (07/04/16) PREVIOUS FUNCTIONAL STATUS/SOCIAL/FAMILY SUPPORTS:: Елена lives in a single family home with her Osmani and daughter Evonne in [place]. Osmani has 2 other children by a previous marriage. 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 She has COPD and emphysema (per patient) and uses home oxygen at 2L/min. Елена receives no additional community services and is independent with ADLs at baseline. She continues to drive, but rarely, she reported. CURRENT FUNCTIONAL STATUS:: Елена was sitting up on the edge of her bed in the ICU. She reported that she is feeling sick and tired of being sick. She is on high flow O2 currently, and she reports that she is on approximately 5L O2 at home. She stated that her is very supportive, and is a great cook. She also stated that her daughter has recently moved out, but she has HH services, and she is very happy with their support. CM will continue to follow. ADVANCE DIRECTIVES:: On file. Daughter, Evonne HCA. , Osmani, listed as alternate HCA. Has patient been provided with info about the portal/API?: Yes Did the patient sign up for the portal?: No INSURANCE COVERAGE / FINANCIAL ISSUES:: [facility] MCR replacement CURRENT HOME/COMMUNITY SERVICES/EQUIPMENT:: KRISTA RN, Home O2 through [facility] PRIMARY CARE PHYSICIAN:: Hardy Eagle POTENTIAL DISCHARGE NEEDS:: Follow up with PCP and plan of care PATIENT/FAMILY EDUCATION NEEDS:: Review of discharge instructions, medications, limitations, activity, Ask Me Three ANTICIPATED BARRIERS TO DISCHARGE:: None identified at this time. TRANSPORTATION:: Via private vehicle by family. PLAN:: Елена will likely be discharged home when medically cleared by MD, with a resumption of KRISAT RN. She will follow up with her PCP and plan of care and transport with family. CM will assess and support identified discharge needs.
--- NOTE | 2022-02-01 10:10 | W.PM.PROGNOT ---
Date of Service Date of service: 02/01/22 Time of Service: 10:10 Assessment and Plan Assessment and plan (1) Acute on chronic respiratory failure with hypoxia and hypercapnia: Status: Acute Assessment and plan: I agree w/ Dr. Mars that her primary acute process was worsening HFPEF w/ several days of worsening bilateral leg edema, wt gain, dietary indiscretion w/ salt restriction and PND; she probably has undiagnosed ISAURA and per her daughter, Dr. Eagle was in the process of making referral for PSG. She has nocturnal hallucinations, poor sleep quality, frequent nocturnal awakenings, severe snoring and witnessed apneic spells. I do not feel that she has a COPD exacerbation (no increase in coughing, no sputum production and no fevers). Critical care time spent interviewing and examining the patient, reviewing studies, discussing case with patient's nurse and consulting physicians was 30 minutes (2) Acute on chronic diastolic heart failure: Status: Acute Assessment and plan: continue iv lasix for next 24 hr to aggressively diurese, then I would switch her home lasix to bumex or torsemide, continue spironolactone, I would consider addition of SGLT2 inhibitor. (3) Acute exacerbation of chronic obstructive pulmonary disease: Status: Acute Assessment and plan: I am not convinced that there is an exacerbation of her COPD. I think her hypercapneic respiratory failure is d/t untreated ISAURA in setting of her COPD. However, I do think that her dyspneic was brougth on by her CHF. Her wheezes are much improved since diuresing. (4) Pulmonary hypertension: Status: Chronic Assessment and plan: Per last echo, her pulmonary pressures could not be assessed. She is certainly at high risk of having pulmonary hypertension. Her prior echo from 2019 however did show PHTN w/ RVSP 40 to 45 mm Diurese. (5) DVT prophylaxis: Status: Acute Assessment and plan: Sc enoxaparin (6) Discharge planning issues: Status: Acute Assessment and plan: patient is full code per both the patient and her and her daughters instructions. Objective Last Vital Signs Temp 36.5 C 02/01/22 07:30 Pulse 85 02/01/22 09:01 Resp 35 H 02/01/22 09:01 BP 150/70 H 02/01/22 09:01 Pulse Ox 94 07/20/22 09:01 Laboratory Results - last 24 hr 01/31/22 01/31/22 01/31/22 16:30 16:30 19:07 WBC 7.76 RBC 4.21 Hgb 11.0 L Hct 36.2 MCV 86 MCH 26.1 L MCHC 30.4 L RDW 16.0 H Plt Count 259 MPV 8.9 Immature Gran % 0.4 Neutrophils % 75.7 Lymphocytes % 8.8 Monocytes % 13.8 Eosinophils % 0.9 Basophils % 0.4 Nucleated RBC % 0.0 Absolute Neutrophils 5.88 Absolute Lymphocytes 0.68 L Absolute Monocytes 1.07 H Absolute Eosinophils 0.07 Absolute Basophils 0.03 ABG Sample Site ABG pH ABG pCO2 ABG pO2 ABG HCO3 ABG Total CO2 ABG O2 Saturation ABG Base Excess VBG pH VBG pCO2 VBG pO2 VBG HCO3 VBG Total CO2 VBG O2 Saturation VBG Base Excess FiO2 Sodium 134 L Potassium 4.5 Chloride 92 L Carbon Dioxide 39.9 H Anion Gap 2.1 L BUN 22 H Creatinine 1.3 H Estimated GFR/1.73 m2 41.37 Glucose 102 Calcium 8.6 Magnesium 1.9 Total Bilirubin 0.2 AST 16 ALT 19 Alkaline Phosphatase 70 Creatine Kinase Troponin I < 50 NT-Pro-B Natriuret Pep 798 H Total Protein 6.4 Albumin 3.1 L Procalcitonin Prolactin COVID-19 Source Nasopharynx SARS-CoV-2 (PCR) Negative Add-On Test Request 01/31/22 01/31/22 01/31/22 19:25 19:25 19:25 WBC RBC Hgb Hct MCV MCH MCHC RDW Plt Count MPV Immature Gran % Neutrophils % Lymphocytes % Monocytes % Eosinophils % Basophils % Nucleated RBC % Absolute Neutrophils Absolute Lymphocytes Absolute Monocytes Absolute Eosinophils Absolute Basophils ABG Sample Site ABG pH ABG pCO2 ABG pO2 ABG HCO3 ABG Total CO2 ABG O2 Saturation ABG Base Excess VBG pH VBG pCO2 VBG pO2 VBG HCO3 VBG Total CO2 VBG O2 Saturation VBG Base Excess FiO2 Sodium Potassium Chloride Carbon Dioxide Anion Gap BUN Creatinine Estimated GFR/1.73 m2 Glucose Calcium Magnesium Total Bilirubin AST ALT Alkaline Phosphatase Creatine Kinase Troponin I < 50 NT-Pro-B Natriuret Pep Total Protein Albumin Procalcitonin 0.1 Prolactin COVID-19 Source SARS-CoV-2 (PCR) Add-On Test Request DONE 01/31/22 02/01/22 02/01/22 20:08 05:07 05:07 WBC 5.88 RBC 4.58 Hgb 11.8 Hct 40.3 MCV 88 MCH 25.8 L MCHC 29.3 L RDW 15.9 H Plt Count 248 MPV 9.7 Immature Gran % 1.0 Neutrophils % 92.5 Lymphocytes % 5.3 Monocytes % 1.0 Eosinophils % 0.0 Basophils % 0.2 Nucleated RBC % 0.0 Absolute Neutrophils 5.44 Absolute Lymphocytes 0.31 L Absolute Monocytes 0.06 L Absolute Eosinophils 0.00 Absolute Basophils 0.01 ABG Sample Site ABG pH ABG pCO2 ABG pO2 ABG HCO3 ABG Total CO2 ABG O2 Saturation ABG Base Excess VBG pH 7.34 VBG pCO2 80 H* VBG pO2 50 VBG HCO3 43 H VBG Total CO2 40 H VBG O2 Saturation 82 VBG Base Excess > 15 H FiO2 Sodium 135 L Potassium 4.9 Chloride 93 L Carbon Dioxide 41.5 H Anion Gap 0.5 L BUN 22 H Creatinine 1.1 H Estimated GFR/1.73 m2 50.17 Glucose 192 H Calcium 8.6 Magnesium 1.9 Total Bilirubin AST ALT Alkaline Phosphatase Creatine Kinase Troponin I NT-Pro-B Natriuret Pep Total Protein Albumin Procalcitonin Prolactin COVID-19 Source SARS-CoV-2 (PCR) Add-On Test Request 02/01/22 02/01/22 02/01/22 05:07 05:07 06:25 WBC RBC Hgb Hct MCV MCH MCHC RDW Plt Count MPV Immature Gran % Neutrophils % Lymphocytes % Monocytes % Eosinophils % Basophils % Nucleated RBC % Absolute Neutrophils Absolute Lymphocytes Absolute Monocytes Absolute Eosinophils Absolute Basophils ABG Sample Site Left Radial ABG pH 7.32 L ABG pCO2 89 H* ABG pO2 52 L ABG HCO3 46 H ABG Total CO2 43 H ABG O2 Saturation 85 L ABG Base Excess > 15 H VBG pH VBG pCO2 VBG pO2 VBG HCO3 VBG Total CO2 VBG O2 Saturation VBG Base Excess FiO2 40 Sodium Potassium Chloride Carbon Dioxide Anion Gap BUN Creatinine Estimated GFR/1.73 m2 Glucose Calcium Magnesium Total Bilirubin AST ALT Alkaline Phosphatase Creatine Kinase 78 Troponin I NT-Pro-B Natriuret Pep Total Protein Albumin Procalcitonin Prolactin Cancelled COVID-19 Source SARS-CoV-2 (PCR) Add-On Test Request
[2022-02-01] MEDS: Furosemide 100 MG/10 ML VIAL 80 MG IVP (16:10)
[2022-02-01 18:16] LABS: BE (Venous) > 15 mmol/L (-2-3); HCO3 (Venous) 44 mmol/L (23-28); O2 Sat (Venous) 98 %; TCO2 (Venous) 40 mmol/L (24-29); pH (Venous) 7.42 (7.31-7.41); pO2 (Venous) 105 mmHg
[2022-02-01 18:18] LABS: pCO2 (Venous) 69 mmHg (41-51)
[2022-02-01] MEDS: LORazepam 0.5 MG TAB PO (19:43)
[2022-02-01] MEDS: Acetaminophen 325 MG TAB PO (19:43)
[2022-02-01] MEDS: MORPHine 2 MG/ML SYR IVP (22:41)
[2022-02-01] MEDS: Enoxaparin 40 MG/0.4 ML SYR SC (22:42)
[2022-02-02] VITALS (18 sets, daily range): BP systolic 117–152; BP diastolic 71–90; PULSE 74–143; RESP 2–28; TEMP 36.7–37.2; O2SAT 92–99
[2022-02-02] MEDS: MORPHine 2 MG/ML SYR IVP ×4 (01:02→20:45)
[2022-02-02] MEDS: LORazepam 20 MG/10 ML VIAL IVP ×3 (01:08→22:18)
[2022-02-02 06:47] LABS: HCO3 (Venous) 46 mmol/L (23-28); O2 Sat (Venous) 91 %; TCO2 (Venous) 42 mmol/L (24-29); pH (Venous) 7.42 (7.31-7.41); pO2 (Venous) 56 mmHg
[2022-02-02 06:48] LABS: BE (Venous) > 15 mmol/L (-2-3); pCO2 (Venous) 71 mmHg (41-51)
[2022-02-02 06:59] LABS: Anion Gap -2.5 mmol/L (3-11); BUN 25 mg/dL (7-18); CO2 44.5 mmol/L (21.0-32.0); Calcium 9.1 mg/dL (8.5-10.1); Chloride 93 mmol/L (98-107); Glucose 100 mg/dL (74-106); Potassium 4.3 mmol/L (3.5-5.1); Sodium 135 mmol/L (136-145)
[2022-02-02] MEDS: Lisinopril 20 MG TAB 10 MG PO (09:05)
[2022-02-02] MEDS: Furosemide 100 MG/10 ML VIAL 80 MG IVP (09:05)
[2022-02-02] MEDS: FLUoxetine 20 MG CAP PO (09:05)
[2022-02-02] MEDS: Multivitamin TAB 1 TAB PO (09:05)
[2022-02-02] MEDS: Spironolactone 50 MG TAB PO (09:05)
[2022-02-02] MEDS: Pantoprazole 40 MG TABCR PO (09:05)
[2022-02-02] MEDS: Normal Saline Flush 10 ML SYR IVP ×4 (09:08→22:18)
--- NOTE | 2022-02-02 09:20 | IN_ITS ---
Date of service: 02/02/22 Time of Service: 09:20 PT Notes Visit Reasons: Acute on Chronic Hypoxic Respiratory Failure Physical Therapy Inpatient Initial Evaluation Date: 02/02/2022 Referring Doctor: Norman Sequeira MD PT Orders: PT CONSULT: Exacerbation Chronic Cond Precautions: Fall. Standard. Activity as tolerated. Patient Profile/Admitting Diagnosis: Елена is a 61-year-old female with diagnoses of acute on chronic respiratory failure, acute on chronic COPD, pulmonary hypertension, with worsening shortness of breath that has limited her for couple of months now. PMHX: All Active Problems?(Updated 01/31/22 @ 23:53 by Laura Mars MD) Discharge planning issues (Acute) DVT prophylaxis (Acute) Acute on chronic respiratory failure with hypoxia and hypercapnia (Acute) Acute on chronic diastolic heart failure (Acute) CHF exacerbation (Acute) Acute exacerbation of chronic obstructive pulmonary disease (Acute) Hyponatremia (Acute) Pulmonary hypertension (Chronic) Hypoxia (Chronic) (HFpEF) heart failure with preserved ejection fraction (Chronic) Anxiety (Chronic) Dyspnea (Acute) Uterine mass (Acute) Not candidate for surgery at [facility] [place] [facility] Had partial uterine artery embolization. Unable to complete 2/2 hypoxia. Acute anemia (Acute) Postmenopausal bleeding (Acute) Dyspnea on exertion (Acute) S/P left inguinal hernia repair (Acute) 01/21/19 Dr Odette Cormier, left Left inguinal hernia (Acute) Incarcerated inguinal hernia, unilateral (Acute) Small bowel obstruction (Acute) Dehydration (Acute) Hypertension (Chronic) Change in mental status (Acute) Cardiomyopathy (Acute) PUD (peptic ulcer disease) (Acute) Iron deficiency anemia due to chronic blood loss (Chronic) Chronic bronchitis with COPD (chronic obstructive pulmonary disease) (Acute) Alcohol abuse (Acute) COPD (chronic obstructive pulmonary disease) (Chronic) Medical Hitory? Alcoholic gastritis Former smoker Hyponatremia Mood disorder with psychosis Neck pain on right side Pneumonia Post-menopausal bleeding Pulmonary hypertension Respiratory failure with hypoxia Surgical History? EGD - MAC (07/04/16) Social History/Home Situation: Lives with in a private home with 4 steps to enter with 1 rail. Independent with 4WW prior to admission. Equipment Owned/DME: 4WW Subjective: Agreeable to PT consult. Reports being fatigued and weak but is willing to get out of bed onto the bedside recliner with PT this morning. Objective: General Observation: Supine in bed. Blanchard catheter in place. Telemetry monitoring in place. On 2 L of oxygen supplementation via NC. TEDS to B legs. Mental Status: Alert and oriented as to person, place, time, and purpose but did require some repetition of instructions for this evaluation. Pain: Denies Vital Signs: 94% on 2L of O2 after a short distance walk ROM: Right Upper Extremity: Shoulder Flexion WFL. Shoulder abduction WFL. Elbow flexion WFL. Wrist flexion WFL. Functional opening and closing of hand WFL. Left Upper Extremity: Shoulder Flexion WFL. Shoulder abduction WFL. Elbow flexion WFL. Wrist flexion WFL. Functional opening and closing of hand WFL. Right Lower Extremity: Hip flexion WFL. Hip abduction WFL. Knee flexion WFL. Ankle dorsiflexion WFL. Ankle plantarflexion WFL. Left Lower Extremity: Hip flexion WFL. Hip abduction WFL. Knee flexion WFL. Ankle dorsiflexion WFL. Ankle plantarflexion WFL. Strength: Right Upper Extremity: Shoulder flexors 4-/5. Shoulder abductors 4-/5. Elbow flexors 4/5. Elbow extensors 4-/5. Communication Analyst strong. Left Upper Extremity: Shoulder flexors 4-/5. Shoulder abductors 4-/5. Elbow flexors 4/5. Elbow extensors 4-/5. Communication Analyst strong. Right Lower Extremity: Hip flexors 3+/5. Hip abductors 3+/5. Knee flexors 4-/5. Knee extensors 4-/5. Ankle dorsiflexors 4-/5. Ankle plantarflexors 4-/5. Left Lower Extremity: Hip flexors 3+/5. Hip abductors 3+/5. Knee flexors 4-/5. Knee extensors 4-/5. Ankle dorsiflexors 4-/5. Ankle plantarflexors 4-/5. Bed Mobility/Transfers: Supine to sit minimal assist Sit to supine minimal assist Sit to stand contact guard assist Stand to sit contact guard assist Bed to reclining minimal assist Gait: Instructed patient with level surface ambulation of 10 feet requiring minimal assist. Migdalia decreased. Moderate SOB that subsided with rest. Mild instability noted. 94% on 2L of O2 after a short distance walk. Balance: Static Sitting: Good Dynamic Sitting: Good Static Standing: Fair Dynamic Standing: Fair Special Tests: Mobility Limitations Standardized Measure [facility] AM-PAC 6 clicks Basic Mobility Inpatient Short Form: Raw Score: 15 CMS Score: 58% deficit 4-stage Balance Test: Unable at this time due to shortness of breath Informed Consent/Education: Patient was instructed in purpose of PT consult and plan of care. Agreeable to proceed with established PT POC to achieve personal goals. Assessment: Patient presents with clinical signs and symptoms consistent with current/admitting diagnoses that have resulted to mobility limitations, gait instability, generalized weakness, and overall ADL decline as demonstrated by the following impairment level findings: 1. Decreased strength to B UE/LE major muscle groups 2. Impaired sitting/standing balance 3. Impaired activity tolerance 4. Shortness of breath with activity Impairments are contributing to the following functional limitations: 1. Decline in bed mobility skills 2. Decline in transfer skills 3. Difficulty with ambulation without assistive device and physical assistance 4. Increased completion time for mobility ADL performance 5. Increased risk for falls 6. Difficulty with managing steps alone safely Patient is assessed as a 54594 moderate complexity based on the following: History: 61-year-old female with past medical history as indicated above Examination: Demonstrable impairment in strength, balance, and mobility level with underlying impairments and functional limitations as exhibited above as well as deficit score of 58% utilizing the [facility] Mobility Inpatient Short Form Presentation: Evolving Decision Makin moderate complexity Goals: Goals X1 week 1. Supine-Sit independent 2. Sit-Supine independent 3. Sit-Stand independent 4. Stand-Sit independent with 4WW 5. Bed-Chair independent with 4WW 6. Chair-Bed independent with 4WW 7. Independent gait on level surface with use of 4WW for at least 100 feet without report of pain nor dyspnea 8. Independent stair negotiation while holding onto 1 rail for at least 5 steps without report of pain nor dyspnea 9. Independent with home exercise program 10. Good static and dynamic standing balance/tolerance Plan of Care/Treatment Plan: 1-2x/day, 7 days/week x 1 week. Plan of care has been reviewed with the [employer] providing the service under Physical Therapy direction. Initiate Physical Therapy intervention for pain management as needed, strengthening, bed mobility, transfers, gait, stairs, balance training, and use of assistive device. DISCHARGE RECOMMENDATIONS: [] Home with no services [] [] Home with services [specify] [] Home with outpatient PT [] [] SNF for continued rehabilitation [] [] Penitentiary Care [] [] SNF versus LTC based on ability to participate and progress [] [X] SNF vs PT depending on patient's progress towards goals and level of assist at home TREATMENT CODE/TIME: 01660 x 15 minutes, 96497 x 14 minutes beginning at 9:20 AM. Thank you for the opportunity to participate in the care of this patient. Marie Murillo PT, DPT, CLT [facility] [place], [place]
--- NOTE | 2022-02-02 09:37 | W.PM.PROGNOT ---
Date of Service Date of service: 02/02/22 Time of Service: 09:38 Assessment and Plan Assessment and plan (1) Acute on chronic respiratory failure with hypoxia and hypercapnia: Status: Acute Assessment and plan: Multifactorial including underlying COPD and undiagnosed and untreated ISAURA exacerbated by recent acute worsening of her diastolic heart failure. At this point I think she is euvolemic. I discontinued her IV Lasix. I will put her back on oral maintenance dose of her diuretic at 80 mg p.o. twice daily beginning tomorrow morning. Continue her spironolactone. She had a one-time dose of Solu-Medrol in the emergency department I think she would benefit from a short burst of prednisone 40 mg daily for 5 days. I also think she needs scheduled bronchodilators in addition to her Spiriva. She is only been getting as needed dosing of her Xopenex. She was only getting the Xopenex every 4 hours as needed and only received 2 doses yesterday and none last night or yesterday afternoon or this morning. I will put her on Xopenex 1.25 mg inhaled updraft qid along with every 2 hours as needed dyspnea/wheezing. Still see no evidence of acute infection therefore I have held off on starting any antibiotics. I think with her hypercapnia is best treated with an adaptive BiPAP such as trilogy however she has not had a formal PSG to document her ISAURA. For now we will use BiPAP with a backup respiratory rate whenever she is napping or sleeping at night. I will request that nursing not treat her anxiety and agitation with lorazepam which will only worsen her delirium. She can have as needed morphine for dyspnea. I think she would benefit from an SSRI for anxiety. Professional time spent interviewing and examining patient, discussion of goals of care with hospital team (care management, nursing and consulting professionals) was 45 minutes. (2) Acute exacerbation of chronic obstructive pulmonary disease: Status: Acute Assessment and plan: As above. We will give her steroid burst of prednisone 40 mg daily for 5 days. Check ABG this morning to monitor her hypercarbia. Continue BiPAP while asleep and high flow nasal cannula during the day. Change as needed bronchodilators to scheduled qid along with as needed short acting beta agonist aerosol treatment. She may benefit from an inhaled steroid if she gets a good response from the prednisone. (3) Acute on chronic diastolic heart failure: Status: Acute Assessment and plan: 50Last echocardiogram dated 07/25/2021 was a limited study showed mild concentric LVH within 5 to 60%. No segmental wall motion abnormalities. RV was not well visualized and pulmonary pressures could not be estimated. Prior to that she had an echocardiogram dated 03/14/2019 which again showed mild LVH normal LVEF of 55 to 60%. On that echo her RV was normal in size with normal RV systolic function and she had mild pulmonary hypertension with RVSP of 40 to 45 mm. I think she has been adequately diuresed. Her proBNP levels were not tremendously elevated on admission. It was 798. Clinically she looks euvolemic with no peripheral edema no JVD and no rales on auscultation of her lungs. At this point we will discontinue IV Lasix and resume her home oral dose beginning tomorrow morning. (4) History of gastric ulcer: Status: Resolved Assessment and plan: Continue Protonix 40 mg daily (5) DVT prophylaxis: Status: Acute Assessment and plan: Continue Lovenox 40 mg subcutaneously daily (6) Discharge planning issues: Status: Acute Assessment and plan: Patient remains a full code per my discussion with her daughter and her and the patient yesterday. Patient will return home with resumption of home health services including visiting nurse once she is medically stable. Subjective Subjective Interval history since last seen: Patient had a restless night last night and became acutely confused ripping off her BiPAP mask. She was medicated with Ativan and morphine. This morning she is more alert and oriented she knows she is at [facility] she knows the month and the year. She is mildly dyspneic with any kind of activity. Nursing and PT are getting her up to work with her this morning. Exam Narrative Exam Narrative: Middle-aged white female who is obese alert and oriented person place time and circumstance. HEENT is remarkable Lungs diffusely wheezy in all lung camejo with expiratory wheezing no rhonchi Heart is tachycardic but regular. Abdomen is obese soft and nontender Lower extremities no peripheral edema. Blanchard catheter string clear yellow urine. Objective Last Vital Signs Temp 37.2 C 02/02/22 07:44 Pulse 74 02/02/22 07:44 Resp 20 02/02/22 07:44 BP 124/76 02/02/22 07:44 Pulse Ox 99 02/02/22 07:44 Laboratory Results - last 24 hr 02/01/22 02/02/22 02/02/22 18:09 06:24 06:24 VBG pH 7.42 H 7.42 H VBG pCO2 69 H* 71 H* VBG pO2 105 56 VBG HCO3 44 H 46 H VBG Total CO2 40 H 42 H VBG O2 Saturation 98 91 VBG Base Excess > 15 H > 15 H Sodium 135 L Potassium 4.3 Chloride 93 L Carbon Dioxide 44.5 H Anion Gap -2.5 L BUN 25 H Creatinine 1.0 Estimated GFR/1.73 m2 56.00 Glucose 100 Calcium 9.1
[2022-02-02 10:02] LABS: HCO3 48 mmol/L (22-26); pH 7.32 (7.35-7.45); pO2 75 mmHg (80-105); sO2 94 % (95-98); tCO2 45 mmol/L (23-27)
[2022-02-02] MEDS: Tiotropium/Olodaterol 10 PUFF INHALER 2 PUFF IH (10:04)
[2022-02-02 10:05] LABS: BE > 15 mmol/L (-2-3)
[2022-02-02 10:08] LABS: pCO2 95 mmHg (35-45)
[2022-02-02] MEDS: Mometasone 220 MCG 14 DOSE INHALER 1 PUFF IH ×2 (10:09→20:36)
[2022-02-02] MEDS: Ipratropium 0.5 MG/2.5 ML UPD VIAL UPD ×4 (10:27→20:36)
[2022-02-02] MEDS: predniSONE 20 MG TAB 60 MG PO (11:01)
[2022-02-02] MEDS: Levalbuterol 1.25 MG/3 ML UPD VIAL UPD ×3 (12:58→20:37)
--- NOTE | 2022-02-02 13:47 | W.PALLCONSUL ---
Date of service: 02/02/22 Time of Service: 13:48 History of Present Illness Narrative: Елена was seen for palliative consultation. She is a 61 yo with past medical Hx significant for COPD, CHF, pulmonary HTN, anxiety, uterine mass. Елена is currently hospitalized for acute on chronic respiratory failure with hypoxia and hypercapnia, acute exacerbation of CHF, acute exacerbation of COPD. She is currently on BiPAP. She was falling asleep during the visit and reports that she just received morphine. Discussed CODE status briefly. She first said that she would not want CPR or intubation but when we talked about completing a COLST form, she said she was not sure what she would want. She was not able to engage in an extensive discussion today due to falling asleep after receiving medication. Assessment and Plan Assessment and plan (1) Acute exacerbation of chronic obstructive pulmonary disease: Status: Acute (2) Acute on chronic respiratory failure with hypoxia and hypercapnia: Status: Acute (3) Acute on chronic diastolic heart failure: Status: Acute (4) Pulmonary hypertension: Status: Chronic (5) (HFpEF) heart failure with preserved ejection fraction: Status: Chronic (6) Anxiety: Status: Chronic (7) Dyspnea: Status: Acute (8) Uterine mass: Status: Acute (9) Paroxysmal SVT (supraventricular tachycardia): Status: Resolved (10) Cardiomyopathy: Status: Acute (11) PUD (peptic ulcer disease): Status: Acute (12) Palliative care patient: Status: Acute Assessment and plan: Елена is a 61 yo with past medical Hx significant for COPD, CHF, pulmonary HTN, anxiety, uterine mass. She is currently hospitalized for acute on chronic respiratory failure with hypoxia and hypercapnia, acute exacerbation of CHF, acute exacerbation of COPD. She is currently on BiPAP. Елена was unable to engage in an extensive conversation due to her falling asleep after receiving a dose of morphine. We discussed CODE status, she is currently FULL CODE. She initially stated that she wanted to be a DNR/DNI but when I suggested that we complete a COLST form, she was not clear about what she wanted her CODE status to be. Briefly discussed Hospice as an option since she states she does not want to be hospitalized. She agrees to f/u with Palliative to continue discussions on goals of care and advanced care planning. She would benefit from ongoing conversation when she is more clear. Palliative will f/u while hospitalized or outpatient. Review of Systems Narrative: unable to participate in full ROS. [facility] All Active Problems (Updated 02/02/22 @ 14:33 by Rubi Javier NP) Palliative care patient (Acute) Discharge planning issues (Acute) DVT prophylaxis (Acute) Acute on chronic respiratory failure with hypoxia and hypercapnia (Acute) Acute on chronic diastolic heart failure (Acute) CHF exacerbation (Acute) Acute exacerbation of chronic obstructive pulmonary disease (Acute) Hyponatremia (Acute) Pulmonary hypertension (Chronic) Hypoxia (Chronic) (HFpEF) heart failure with preserved ejection fraction (Chronic) Anxiety (Chronic) Dyspnea (Acute) Uterine mass (Acute) Not candidate for surgery at [facility] or [facility] [place]08/10[place]21. Had partial uterine artery embolization. Unable to complete 2/2 hypoxia. Acute anemia (Acute) Postmenopausal bleeding (Acute) Dyspnea on exertion (Acute) S/P left inguinal hernia repair (Acute) 01/21/19 Dr Odette Cormier, left Left inguinal hernia (Acute) Incarcerated inguinal hernia, unilateral (Acute) Small bowel obstruction (Acute) Dehydration (Acute) Hypertension (Chronic) Change in mental status (Acute) Cardiomyopathy (Acute) PUD (peptic ulcer disease) (Acute) Iron deficiency anemia due to chronic blood loss (Chronic) Chronic bronchitis with COPD (chronic obstructive pulmonary disease) (Acute) Alcohol abuse (Acute) COPD (chronic obstructive pulmonary disease) (Chronic) Medical History Alcoholic gastritis Former smoker Hyponatremia Mood disorder with psychosis Neck pain on right side Pneumonia Post-menopausal bleeding Pulmonary hypertension Respiratory failure with hypoxia Surgical History EGD - [facility] (07/04/16) Social History Smoking/Tobacco Use Status: Former Tobacco Use Quit Date: 01/13/15 Smoking risk assessment performed?: Yes Alcohol Intake: former Drug use: Never Substance use type: does not use Do you feel safe at home: Yes Do you feel safe in your relationship?: Yes Exam Narrative Exam Narrative: General: well-nourished, middle aged female, laying in bed with HOB elevated, wearing BiPAP. She is falling asleep while talking. HEENT: normocephalic, atraumatic, EOMI, MM moist. Neck: supple. Respiratory: in NAD, wearing BiPAP, does not appear SOB at rest. Extremities: moves extremities freely. Results Last Vital Signs Temp 37 C 02/02/22 11:30 Pulse 108 H 02/02/22 12:58 Resp 24 02/02/22 11:30 BP 133/83 02/02/22 11:30 Pulse Ox 94 02/02/22 12:58 Labs Result diagrams: 02/01/22 05:07 02/02/22 06:24 Labs: Laboratory Results - last 24 hr 02/01/22 02/02/22 02/02/22 18:09 06:24 06:24 ABG Sample Site ABG pH ABG pCO2 ABG pO2 ABG HCO3 ABG Total CO2 ABG O2 Saturation ABG Base Excess VBG pH 7.42 H 7.42 H VBG pCO2 69 H* 71 H* VBG pO2 105 56 VBG HCO3 44 H 46 H VBG Total CO2 40 H 42 H VBG O2 Saturation 98 91 VBG Base Excess > 15 H > 15 H Sodium 135 L Potassium 4.3 Chloride 93 L Carbon Dioxide 44.5 H Anion Gap -2.5 L BUN 25 H Creatinine 1.0 Estimated GFR/1.73 m2 56.00 Glucose 100 Calcium 9.1 02/02/22 09:55 ABG Sample Site Unknown ABG pH 7.32 L ABG pCO2 95 H* ABG pO2 75 L ABG HCO3 48 H ABG Total CO2 45 H ABG O2 Saturation 94 L ABG Base Excess > 15 H VBG pH VBG pCO2 VBG pO2 VBG HCO3 VBG Total CO2 VBG O2 Saturation VBG Base Excess Sodium Potassium Chloride Carbon Dioxide Anion Gap BUN Creatinine Estimated GFR/1.73 m2 Glucose Calcium
--- NOTE | 2022-02-02 13:50 | NUR.NOTE ---
late entry; On 02/01/22 at 1610 I called the nursing waterworks supervisor to discuss my concerns about the pt's transfer to med surg. Pt was rushed out from the ICU at change of shift to make room for an ER pt to come up to the ICU. I was not given report prior. Upon review of the pt, it was noted that pt is still on bipap and that her blood gases are worse today than yesterday with a CO2 of 89. Pt is lethargic and reaching for things into the air. Pt frequently calling out for assistance. Nursing waterworks supervisor will discuss with Respiratory therapy and with MD. Nursing Note:
[2022-02-02] MEDS: Docusate Sodium 100 MG CAP PO (15:34)
--- NOTE | 2022-02-02 17:25 | CMPROGNOTE_ITS ---
- If Service Date Differs Date of service: 02/02/22 Time of Service: 17:25 Care Management Progress Note S/O: Елена was sleeping when CM attempted to meet with her. She was wearing BiPAP at the time. She continues to have high oxygen requirements. She was seen today by Palliative Care, who will follow her in the community. She is not yet medically cleared. CM will continue to follow. A: Deepthi is a 61 year old female admitted to [facility] on 01/31/22 for acute on chronic respiratory failure. P: Елена will likely be discharged home when medically cleared by MD, with a resumption of RN. She will follow up with her PCP and plan of care and transport with family. CM will assess and support identified discharge needs.
[2022-02-02] MEDS: Budesonide/Formoterol 160/4.5 6 GM 60 PUFF INH IH (20:35)
[2022-02-02] MEDS: Enoxaparin 40 MG/0.4 ML SYR SC (21:12)
[2022-02-02] MEDS: Metoprolol CR 100 MG TABCR 200 MG PO (21:12)
[2022-02-03] VITALS (19 sets, daily range): BP systolic 117–147; BP diastolic 77–86; PULSE 77–97; RESP 8–26; TEMP 31–37.4; O2SAT 91–98
[2022-02-03] MEDS: LORazepam 20 MG/10 ML VIAL IVP (02:23)
[2022-02-03] MEDS: Normal Saline Flush 10 ML SYR IVP ×2 (02:24→08:15)
[2022-02-03] MEDS: Multivitamin TAB 1 TAB PO (08:15)
[2022-02-03] MEDS: predniSONE 20 MG TAB 40 MG PO (08:15)
[2022-02-03] MEDS: Docusate Sodium 100 MG CAP PO ×2 (08:15→20:38)
[2022-02-03] MEDS: Spironolactone 50 MG TAB PO (08:16)
[2022-02-03] MEDS: Pantoprazole 40 MG TABCR PO (08:16)
[2022-02-03] MEDS: Lisinopril 20 MG TAB 10 MG PO (08:16)
[2022-02-03] MEDS: FLUoxetine 20 MG CAP PO (08:16)
[2022-02-03] MEDS: Furosemide 40 MG TAB 80 MG PO ×2 (08:19→16:32)
[2022-02-03] MEDS: Milk of Magnesia 30 ML CUP PO (08:19)
[2022-02-03] MEDS: Levalbuterol 1.25 MG/3 ML UPD VIAL UPD ×4 (08:55→20:39)
[2022-02-03] MEDS: Mometasone 220 MCG 14 DOSE INHALER 1 PUFF IH ×2 (08:55→20:44)
[2022-02-03] MEDS: Tiotropium/Olodaterol 10 PUFF INHALER 2 PUFF IH (08:55)
[2022-02-03] MEDS: Ipratropium 0.5 MG/2.5 ML UPD VIAL UPD ×4 (08:55→20:39)
--- NOTE | 2022-02-03 10:50 | PGE_ITS ---
Date of Service Date of service: 02/03/22 Time of Service: 10:51 Assessment and Plan Assessment and plan (1) Acute on chronic respiratory failure with hypoxia and hypercapnia: Status: Acute Assessment and plan: multifactorial including undiagnosed ISAURA (but w/ multiple symptoms including witnessed apneic and hypopneic spells, nocturnal awakenings w/ acute confusion). She is being treated for COPD exacerbation with steroids and HFNC during the day and BIPAP at night. She needs to get a PSG done as soon as possible. I spoke w/ Dr. Marrero and she indicated that she will expedite this. I have asked CM to see if one was set up through Dr. Eagle's office. I will have nursing/RT to try to wean her HFNC and get her back on her home setting of oxygen. Professional time spent interviewing and examining patient, discussion of goals of care with hospital team (care management, nursing and consulting professionals) was 30 minutes. (2) Acute exacerbation of chronic obstructive pulmonary disease: Status: Acute Assessment and plan: As above. We will give her steroid burst of prednisone 40 mg daily for 5 days. Change as needed bronchodilators to scheduled qid along with as needed short acting beta agonist aerosol treatment. Continue Spiriva, Symbicort combo as we do not have Stiolto Respimat. She has not evidence of acute infectious process so I have not put her on any antibiotics. Her CXR did not show any infiltrates. (3) Acute on chronic diastolic heart failure: Status: Acute Assessment and plan: Last echocardiogram dated 07/25/2021 was a limited study showed mild concentric LVH within 5 to 60%. No segmental wall motion abnormalities. RV was not well visualized and pulmonary pressures could not be estimated. Prior to that she had an echocardiogram dated 03/14/2019 which again showed mild LVH normal LVEF of 55 to 60%. On that echo her RV was normal in size with normal RV systolic function and she had mild pulmonary hypertension with RVSP of 40 to 45 mm. I think she has been adequately diuresed. Her proBNP levels were not tremendously elevated on admission. It was 798. Clinically she looks euvolemic with no peripheral edema no JVD and no rales on auscultation of her lungs. At this point we will discontinue IV Lasix and resume her home oral dose beginning today. (4) History of gastric ulcer: Status: Resolved Assessment and plan: Continue Protonix 40 mg daily, add carafate for added protection while she is on prednisone (5) DVT prophylaxis: Status: Acute Assessment and plan: Continue Lovenox 40 mg subcutaneously daily (6) Discharge planning issues: Status: Acute Assessment and plan: Patient remains a full code per my discussion with her daughter and her and the patient. Patient will return home with resumption of home health services including visiting nurse once she is medically stable. I anticipate continued hospitalization for another 24 hr. to 48 hr. Subjective Subjective Interval history since last seen: Елена states that she did not sleep well last night. This morning she is alert and oriented x 4 (person/ place [facility], date including month/year, and reason she is in the hospital). She has no cough or sputum production, no fevers. I spoke w/ her daughter, who indicated that Dr. Eagle has been trying to get her setup for sleep study for two months. At home the patient has home oxygen and concentrator and portable oxygen and a nebulizer but has not been able to get CPAP or BIPAP as she has not been able to get a sleep study. Exam Narrative Exam Narrative: Елена is sitting up in her chair, alert and oriented; no respiratory discomfort. She is wearing her HFNC at 40 LPM, 37% FIO2. Lungs: diffuse fine rales; no rhonchi Heart: RRR Abdomen: obese, soft, nondistended Legs: no edema Objective Last Vital Signs Temp 37.1 C 02/03/22 07:50 Pulse 89 02/03/22 09:06 Resp 20 02/03/22 07:50 BP 146/81 H 02/03/22 07:50 Pulse Ox 92 02/03/22 08:55 Reviewed Pertinent PMH: Yes Objective Narrative Objective Narrative: CXR 02/01: no acute findings. no infiltrates, but she has fibrotic changes.
--- NOTE | 2022-02-03 11:37 | CMPROGNOTE_ITS ---
- If Service Date Differs Date of service: 02/03/22 Time of Service: 11:37 Care Management Progress Note S/O: Елена was sitting up in her chair when CM met with her. She was working with RT at the time. CM asked RT about providing Елена with an oxy mask for home, and RT stated that they would discuss the options with Елена and MD. CM reported that Елена has a supportive family who will assist with her equipment, if needed. suggested that Елена may qualify for a Trilogy. CM asked that RT explore this option to inquire if she qualifies for a Trilogy or other equipment to help keep Елена more stable at home. LAMBERTO contacted the sleep clinic who reported that she has a consultation appointment on 03/14/22 at 10:55am. CM informed Елена's daughter of this appointment. CM will continue to follow. A: Deepthi is a 61 year old female admitted to [facility] on 01/31/22 for acute on chronic respiratory failure. P: Елена will likely be discharged home when medically cleared by MD, with a resumption of HH RN. She will follow up with her PCP and plan of care and transport with family. CM will assess and support identified discharge needs.
[2022-02-03] MEDS: Sucralfate 1 GM TAB PO ×3 (13:25→22:08)
--- NOTE | 2022-02-03 15:51 | PT.INTREAT ---
Date of service: 02/03/22 Time of Service: 13:17 PT Notes Visit Reasons: Acute on Chronic Hypoxic Respiratory Failure Inpatient Physical Therapy Treatment Note [facility] Date: 02/03/2022 PRECAUTIONS: Activity as tolerated, monitor O2 SUBJECTIVE: Елена is pleasant and agreeable to participating in PT. She reports that she is feeling better today, although she did not sleep well last night. OBJECTIVE: PAIN: No c/o pain BED MOBILITY/TRANSFERS Supine-sit: I Sit-stand: I Stand-sit: I Bed-Chair: S GAIT Assistive Device: FWW Weight bearing: Full Assist: S Distance: 300' Deviation: None VITALS: 96-100% on 15L O2 via mask with gait training TOILETING: Patient toileted independently x2 ASSESSMENT: Patient tolerated a progression in gait distance with FWW support, while on 15L O2. She demonstrates independence with transfers and bed mobility at this time. PLAN: Continue with general conditioning for improved activity tolerance. TREATMENT CODE/TIME: 29 minutes; 05759 x2 (13:17)
[2022-02-03] MEDS: Melatonin 3 MG TAB 6 MG PO (22:08)
[2022-02-03] MEDS: Metoprolol CR 100 MG TABCR 200 MG PO (22:09)
[2022-02-03] MEDS: Senna TAB 1 TAB PO (22:10)
[2022-02-04] VITALS (9 sets, daily range): BP systolic 114–137; BP diastolic 68–85; PULSE 65–84; RESP 15–20; TEMP 36.6–37.1; O2SAT 93–98
[2022-02-04] MEDS: Mylanta Suspension 30 ML CUP PO (04:41)
[2022-02-04 06:54] LABS: Platelet Count 222 10^3/uL (130-400)
[2022-02-04 07:14] LABS: Anion Gap -0.9 mmol/L (3-11); BUN 22 mg/dL (7-18); CO2 44.9 mmol/L (21.0-32.0); Chloride 89 mmol/L (98-107); Glucose 96 mg/dL (74-106); Potassium 3.9 mmol/L (3.5-5.1); Sodium 133 mmol/L (136-145)
[2022-02-04] MEDS: Multivitamin TAB 1 TAB PO (08:24)
[2022-02-04] MEDS: Furosemide 40 MG TAB 80 MG PO ×2 (08:24→17:01)
[2022-02-04] MEDS: Docusate Sodium 100 MG CAP PO ×2 (08:25→20:10)
[2022-02-04] MEDS: FLUoxetine 20 MG CAP PO (08:25)
[2022-02-04] MEDS: Pantoprazole 40 MG TABCR PO (08:25)
[2022-02-04] MEDS: predniSONE 20 MG TAB 40 MG PO (08:25)
[2022-02-04] MEDS: Sucralfate 1 GM TAB PO ×4 (08:25→20:10)
[2022-02-04] MEDS: Spironolactone 50 MG TAB PO (08:26)
[2022-02-04] MEDS: Lisinopril 20 MG TAB 10 MG PO (08:26)
[2022-02-04] MEDS: Ipratropium 0.5 MG/2.5 ML UPD VIAL UPD ×4 (09:15→20:09)
[2022-02-04] MEDS: Budesonide/Formoterol 160/4.5 6 GM 60 PUFF INH IH ×2 (09:15→20:12)
[2022-02-04] MEDS: Levalbuterol 1.25 MG/3 ML UPD VIAL UPD ×4 (09:16→20:10)
[2022-02-04] MEDS: Tiotropium/Olodaterol 10 PUFF INHALER 2 PUFF IH (09:16)
[2022-02-04] MEDS: Mometasone 220 MCG 14 DOSE INHALER 1 PUFF IH ×2 (09:16→20:09)
[2022-02-04] MEDS: Acetaminophen 325 MG TAB PO (09:54)
--- NOTE | 2022-02-04 11:08 | PT.INNT ---
PT Notes Visit Reasons: Acute on Chronic Hypoxic Respiratory Failure PT refused x 2 today. The second time pt reports that she is too tired to complete PT.
[2022-02-04] MEDS: Norethindrone 5 MG TAB 10 MG PO ×2 (13:53→20:10)
--- NOTE | 2022-02-04 15:55 | PGE_ITS ---
Date of Service Date of service: 02/04/22 Time of Service: 15:55 Assessment and Plan Assessment and plan (1) Acute on chronic respiratory failure with hypoxia and hypercapnia: Status: Acute Assessment and plan: multifactorial including undiagnosed ISAURA (but w/ multiple symptoms including witnessed apneic and hypopneic spells, nocturnal awakenings w/ acute confusion). She is being treated for COPD exacerbation with steroids and was on HFNC during the day and BIPAP at night but now she is back to 2 LPM during the day. She needs to get a PSG done as soon as possible. I spoke w/ Dr. Marrero and she indicated that she will expedite this. I spoke w/ RT and now that the patient is back to her baseline oxygen needs, we can get an ABG tomorrow and if her PCO2 is over 55 then she should qualify for adaptive BIPAP such as Trilogy. Professional time spent interviewing and examining patient, discussion of goals of care with hospital team (care management, nursing and consulting professionals) was 20 minutes. (2) Acute exacerbation of chronic obstructive pulmonary disease: Status: Acute Assessment and plan: Her COPD seems to be controlled now on her current meds of Stiolto Respimat and xopenex (3) Acute on chronic diastolic heart failure: Status: Acute Assessment and plan: Last echocardiogram dated 07/25/2021 was a limited study showed mild concentric LVH within 55 to 60%. No segmental wall motion abnormalities. RV was not well visualized and pulmonary pressures could not be estimated. Prior to that she had an echocardiogram dated 03/14/2019 which again showed mild LVH normal LVEF of 55 to 60%. On that echo her RV was normal in size with normal RV systolic function and she had mild pulmonary hypertension with RVSP of 40 to 45 mm. I think she has been adequately diuresed. Her proBNP levels were not tremendously elevated on admission. It was 798. Clinically she looks euvolemic with no peripheral edema no JVD and no rales on auscultation of her lungs. At this point we will discontinue IV Lasix and resume her home oral dose beginning today. (4) History of gastric ulcer: Status: Resolved Assessment and plan: Continue Protonix 40 mg daily, add carafate for added protection while she is on prednisone (5) DVT prophylaxis: Status: Acute Assessment and plan: Continue Lovenox 40 mg subcutaneously daily (6) Vaginal bleeding: Status: Acute Assessment and plan: probably d/t withdrawal of her norethindrone. I have asked pharmacy to resume her home dose. If bleeding does not improve by tomorrow then I will ask [employer] to see her. (7) Discharge planning issues: Status: Acute Assessment and plan: Patient remains a full code per my discussion with her daughter and her and the patient. Patient will return home with resumption of home health services including visiting nurse once she is medically stable. I anticipate continued hospitalization for another 24 hr. I anticipate dc home tomorrow w/ resumption of any services. Subjective Subjective Interval history since last seen: Patient complains of vaginal bleeding. Apparently her norethindrone did not get reordered on admission and now she is having breakthrough bleeding As for her hypoxemic/hypercarbic respiratory failure, she is doing better while she wears her BIPAP at night. This morning she has been weaned back down to 2 LPM per simple nasal cannula and her SPO2 is 95% Lungs: are clear bilaterally Heart: RRR Neuro: she is alert/oriented x 3 (she knew that she is in the hospital, was able to name the hospital, city, state, month and years); she has no tremors/myoclonus Objective Last Vital Signs Temp 37.1 C 02/04/22 15:22 Pulse 72 02/04/22 15:22 Resp 20 02/04/22 15:22 BP 134/84 02/04/22 15:22 Pulse Ox 93 02/04/22 15:22 Laboratory Results - last 24 hr 02/04/22 02/04/22 06:32 06:32 Plt Count 222 Sodium 133 L Potassium 3.9 Chloride 89 L Carbon Dioxide 44.9 H Anion Gap -0.9 L BUN 22 H Creatinine 1.0 Estimated GFR/1.73 m2 56.00 Glucose 96 Calcium 9.0
[2022-02-04] MEDS: Metoprolol CR 100 MG TABCR 200 MG PO (20:10)
[2022-02-04] MEDS: Senna TAB 1 TAB PO (20:10)
[2022-02-04] MEDS: Melatonin 3 MG TAB 6 MG PO (20:10)
[2022-02-05] VITALS (23 sets, daily range): BP systolic 68–131; BP diastolic 30–81; PULSE 71–138; RESP 8–20; TEMP 36.6–36.9; O2SAT 93–96
[2022-02-05 07:20] LABS: BE 24 mmol/L (-2-3); HCO3 49 mmol/L (22-26); pCO2 77 mmHg (35-45); pH 7.41 (7.35-7.45); pO2 68 mmHg (80-105)
[2022-02-05 07:21] LABS: FIO2L 2 L; Site Right Radial; TCO2 50 mmol/L (23-27); sO2 92 % (95-98)
[2022-02-05] MEDS: Docusate Sodium 100 MG CAP PO ×2 (08:51→21:16)
[2022-02-05] MEDS: Sucralfate 1 GM TAB PO ×4 (08:51→21:16)
[2022-02-05] MEDS: Pantoprazole 40 MG TABCR PO (08:51)
[2022-02-05] MEDS: Norethindrone 5 MG TAB 10 MG PO ×2 (08:51→21:17)
[2022-02-05] MEDS: FLUoxetine 20 MG CAP PO (08:52)
[2022-02-05] MEDS: Spironolactone 50 MG TAB PO (08:52)
[2022-02-05] MEDS: Furosemide 40 MG TAB 80 MG PO ×2 (08:52→17:25)
[2022-02-05] MEDS: Lisinopril 20 MG TAB 10 MG PO (08:52)
[2022-02-05] MEDS: Multivitamin TAB 1 TAB PO (08:52)
[2022-02-05] MEDS: predniSONE 20 MG TAB 40 MG PO (08:52)
[2022-02-05] MEDS: Levalbuterol 1.25 MG/3 ML UPD VIAL UPD ×4 (08:57→21:18)
[2022-02-05] MEDS: Tiotropium/Olodaterol 10 PUFF INHALER 2 PUFF IH (08:57)
[2022-02-05] MEDS: Mometasone 220 MCG 14 DOSE INHALER 1 PUFF IH ×2 (08:57→21:17)
[2022-02-05] MEDS: Budesonide/Formoterol 160/4.5 6 GM 60 PUFF INH IH ×2 (08:57→21:21)
[2022-02-05] MEDS: Ipratropium 0.5 MG/2.5 ML UPD VIAL UPD ×4 (08:58→21:17)
--- NOTE | 2022-02-05 10:30 | PT.INTREAT ---
PT Notes Visit Reasons: Acute on Chronic Hypoxic Respiratory Failure Inpatient Physical Therapy Treatment Note [facility] Date: 02/05/22 Subjective:Pt reports that she is tired today and just doesn't feel like doing much today. OBJECTIVE: Sit-stand: SBA Stand-Sit: SBA GAIT Assistive Device: FWW Weight bearing: Full Assist: SBA Distance: Marching in place to F pt did not feel up to walking outside the room. THEREX: Seated UE: circles x 10, horz abd x 10, shoulder flex x 10, rowing x 10 LE: LAQ x 10, ankle pumps x 10, abd x 10, and marching x 10. ASSESSMENT: Pt was more willing to participate in PT today than yesterday but still fatigued quickly. PLAN: Cont as per PT POC. TREATMENT CODE/TIME: 10:15-10:30 TP (15)
--- NOTE | 2022-02-05 10:53 | W.PM.PROGNOT ---
Date of Service Date of service: 02/05/22 Time of Service: 10:53 Assessment and Plan Assessment and plan (1) Acute on chronic respiratory failure with hypoxia and hypercapnia: Status: Acute Assessment and plan: multifactorial including undiagnosed ISAUAR (but w/ multiple symptoms including witnessed apneic and hypopneic spells, nocturnal awakenings w/ acute confusion). Currently being treated with prednisone aerosolized bronchodilators. Patient will be discharged home on her home treatment of Stiolto no along with prn Xopenex. Paperwork will be filled out for her to apply for trilogy device which should help with her nocturnal hypoxemic spells as well as treating her hypercarbia (2) Acute exacerbation of chronic obstructive pulmonary disease: Status: Acute Assessment and plan: Her COPD seems to be controlled now on her current meds of Stiolto Respimat and xopenex and prednisone burst. (3) Acute on chronic diastolic heart failure: Status: Acute Assessment and plan: Last echocardiogram dated 07/25/2021 was a limited study showed mild concentric LVH within 55 to 60%. No segmental wall motion abnormalities. RV was not well visualized and pulmonary pressures could not be estimated. Prior to that she had an echocardiogram dated 03/14/2019 which again showed mild LVH normal LVEF of 55 to 60%. On that echo her RV was normal in size with normal RV systolic function and she had mild pulmonary hypertension with RVSP of 40 to 45 mm. I think she has been adequately diuresed. Her proBNP levels were not tremendously elevated on admission. It was 798. Clinically she looks euvolemic with no peripheral edema no JVD and no rales on auscultation of her lungs. Patient was initially treated with IV Lasix on admission but is now resumed her home diuretic dose of Lasix and spironolactone. (4) History of gastric ulcer: Status: Resolved Assessment and plan: Continue Protonix 40 mg daily, add carafate for added protection while she is on prednisone (5) DVT prophylaxis: Status: Acute Assessment and plan: Lovenox on hold due to her vaginal bleeding (6) Vaginal bleeding: Status: Acute Assessment and plan: Improving since the Lovenox was put on hold and she was started back on her norethindrone (7) Discharge planning issues: Status: Acute Assessment and plan: Patient remains a full code per my discussion with her daughter and her and the patient. Patient will return home with resumption of home health services including visiting nurse once she is medically stable. I anticipate dc home today w/ resumption of any HH services. Subjective Subjective Interval history since last seen: Patient is in pretty good today no dyspnea. She slept well last night. She is currently on her baseline oxygen requirements of 2 L/min per nasal cannula. No fevers overnight and not coughing up any purulent sputum. I told him I think she could go home today we will give a try to get her qualified for trilogy. She had a ABG taken this morning on her baseline oxygen. . Her PCO2 was elevated at 77 and her PO2 was 68 with a pH of 7.41 this was taken on 2 L/min per nasal cannula which is her baseline oxygen requirement With respect to her vaginal bleeding that is slowed down since the norethindrone got restarted. So there was just a trace of blood when she voided this morning. Exam Narrative Exam Narrative: Obese white female lying in bed watching TV. Not using accessory respiratory muscles not dyspneic able to talk in complete paragraphs Barrel chested with fine end expiratory wheezes on auscultation her lungs Heart is regular but tachycardic Abdomen is obese soft nontender with normal bowel sounds Extremities without edema Objective Last Vital Signs Temp 36.6 C 02/05/22 07:09 Pulse 76 02/05/22 09:22 Resp 18 02/05/22 08:59 BP 131/81 02/05/22 07:09 Pulse Ox 95 02/05/22 08:59 Laboratory Results - last 24 hr 02/04/22 02/05/22 02/05/22 08:52 07:01 07:15 Sample Site Right Radial ABG Sample Site Cancelled Cancelled ABG pH Cancelled 7.41 ABG pCO2 Cancelled 77 H* ABG pO2 Cancelled 68 L ABG HCO3 Cancelled 49 H ABG Total CO2 Cancelled 50 H ABG O2 Saturation Cancelled 92 L ABG Base Excess Cancelled 24 H Oxygen Liter Flow Cancelled Cancelled FiO2 Cancelled Cancelled FiO2 (liters per min) 2
--- NOTE | 2022-02-05 11:15 | RT.EKG_ITS ---
APPROVED REPORT Exam: Resting ECG Reason for Exam: tachycardia Patient Location: I HR:153 bpm ECG Measurements Heart Rate 153 AXIS PA [id number] P [id number] QRSd 107 QRS -30 QT 298 T 59 QTc 476 Conclusion Atrial fibrillation...? atrial activity Low voltage, extremity and precordial leads...extremity<0.5mV, precordial<1.0mV Poor R wave progression Baseline wander in lead(s) V1,V2
[2022-02-05] MEDS: Normal Saline 250 ML 1000 ML IV (12:02)
[2022-02-05 12:30] LABS: Abs Immature Grans 0.06 10^3/uL (0.0-0.06); Absolute Basophil Count 0.02 10^3/uL (0.0-0.2); Absolute Eosinophil Count 0.01 10^3/uL (0.0-0.7); Absolute Lymphocyte Count 0.46 10^3/uL (1.2-3.4); Absolute Monocyte Count 0.62 10^3/uL (0.1-0.8); Absolute Neutrophil Count 10.15 10^3/uL (1.2-6.7); Basophils % 0.2; Eosinophils % 0.1; HCT 38.2 % (36.0-46.0); HGB 11.3 g/dL (11.2-15.7); Immature Grans % 0.5; Lymphocytes % 4.1; MCH 25.7 pg (27.0-33.0); MCHC 29.6 % (32.0-36.0); MCV 87 fL (80-95); MPV 9.1 fL (8.0-11.0); Monocytes % 5.5; Neutrophils % 89.6; Platelet Count 236 10^3/uL (130-400); RDW-SD 48.1 fL; WBC 11.33 10^3/uL (4.4-10.8)
[2022-02-05 12:40] LABS: BUN 34 mg/dL (7-18); CREATININE 1.3 mg/dL (0.55-1.02); Calcium 9.3 mg/dL (8.5-10.1); Chloride 90 mmol/L (98-107); Estimated GFR 41.37 (mL/min/1.73m2); Glucose 105 mg/dL (74-106); Magnesium 1.8 mg/dL (1.8-2.4); Sodium 135 mmol/L (136-145)
[2022-02-05 12:54] LABS: Troponin I 102 ng/L (<or=60)
[2022-02-05 12:55] LABS: Anion Gap -0.00001 mmol/L (3-11)
[2022-02-05 12:56] LABS: CO2 > 45.0 mmol/L (21.0-32.0)
[2022-02-05] MEDS: dilTIAZem 30 MG TAB PO (14:17)
--- NOTE | 2022-02-05 16:30 | RT.EKG_ITS ---
APPROVED REPORT Exam: Resting ECG Reason for Exam: elevated troponin Patient Location: I HR:90 bpm ECG Measurements Heart Rate 90 AXIS LA 172 P 59 QRSd 82 QRS -27 QT 339 T 56 QTc 415 Conclusion Sinus rhythm...normal P axis, V-rate 50- 99 Left axis
[2022-02-05 16:36] LABS: Troponin I 652 ng/L (<or=60)
[2022-02-05] MEDS: Metoprolol 25 MG TAB PO (17:25)
[2022-02-05] MEDS: Melatonin 3 MG TAB 6 MG PO (21:16)
[2022-02-05] MEDS: Senna TAB 1 TAB PO (21:16)
[2022-02-05 21:26] LABS: Troponin I 774 ng/L (<or=60)
[2022-02-06] VITALS (9 sets, daily range): BP systolic 117–126; BP diastolic 68–81; PULSE 70–89; RESP 2–20; TEMP 36.4–37.3; O2SAT 92–95
[2022-02-06] MEDS: Metoprolol 25 MG TAB PO ×3 (01:28→12:07)
[2022-02-06 07:34] LABS: Platelet Count 213 10^3/uL (130-400)
[2022-02-06 07:54] LABS: Troponin I 499 ng/L (<or=60)
--- NOTE | 2022-02-06 08:00 | DI.US_ITS ---
APPROVED REPORT EXAM: Comprehensive 2D, Doppler, and color-flow Echocardiogram Patient Location: In-Patient Room/Bed: 226 [address] Address System Mechanic: Nataliya Kate RDCS (AE) Indications: Elevated troponin, LV function Other Information Study Quality: Adequate Conclusion Normal left ventricular wall thickness and chamber size. Estimated ejection fraction is 55 to 60%. Wall motion is normal Normal right ventricular size and systolic function Both atria are normal in size There is no structural or hemodynamically significant valvular disease Mildly dilated ascending aorta measuring 3.4 cm Estimated right ventricular systolic pressure is 39 mmHg Wall motion Left Ventricle The left ventricle is normal size. The left ventricular systolic function is normal. The left ventric ular ejection fraction is within the normal range. There is normal left ventricular wall thickness. T here is normal LV segmental wall motion. There is no ventricular septal defect visualized. LVEF is 55 -60%. Right Ventricle The right ventricle is normal size. The right ventricular systolic function is normal. The RVSP is 39 .2mmHg. Atria The left atrium size is normal. The right atrium size is normal. The interatrial septum is intact wit h no evidence for an atrial septal defect. Aortic Valve The aortic valve is normal in structure. Aortic valve is trileaflet. There is no aortic valvular sten osis. No aortic regurgitation is present. Mitral Valve The mitral valve is normal in structure. No evidence of mitral valve stenosis. Trace to mild mitral r egurgitation. Tricuspid Valve The tricuspid valve is normal in structure. There is no tricuspid valve stenosis. Trace tricuspid reg urgitation. Trace tricuspid regurgitation. Pulmonic Valve The pulmonary valve is normal in structure. There is no pulmonic valvular stenosis. Trace pulmonic re gurgitation. Great Vessels The aortic root is normal in size. The ascending aorta is mildly dilated. IVC is normal in size and c ollapses >50% with inspiration. Pericardium There is no pericardial effusion. 2D Dimensions IVSD d PLAX 1.19 cm F: 0.6-1.0 LV Vol A2C d MOD 84.6 mL LVPW d PLAX 1.19 cm F: 0.6 - 1.0 LV Vol A4C d MOD 91.5 mL LVID d PLAX 4.55 cm F: 3.8 - 5.2 LA vol/ BSA A2C s A-L 29.3 mL/m2 LVDs 3.25 cm F: 2.2 - 3.5 LA vol/ BSA A4C s A-L 34.9 mL/m2 Ao Root d 2.75 cm F: 2.7 - 3.3 LA Vol/ BSA Biplane s A-L 32.9 mL/m2 RA Area A4C 13.18 cm2 LA Area A4C s MOD 20.22 cm2 RA Vol/ BSA A4C s A-L 18.8 mL/m2 LA Area A2C s MOD 18.03 cm2 Ao Asc Diam d 3.40 cm F: 2.3 - 3.1 LV EF A4C MOD 58.1 % LV EF Teichholz 55.2 % LV EF A2C MOD 60.9 % LVEF (Sinclair's) 59.64 % F: 54 - 74 LV EF Biplane MOD 59.6 % LV Volume 70.56 mL F: 46 - 106 SV 53.42 mL LV Volume Index 40.78 mL/m2 F: 29 - 61 SV Index 30.74 mL/m2 LV Vol Biplane MOD 89.6 mL FS 28.60 % M-Mode TAPSE 1.93 cm (M/F) >1.7 LV Diastology MV E' medial 0.094 (>0.07 m/s) E/A Ratio 0.9 LV E/e MED 6.05 (<14) MV E Vmax 0.57 (0.4-1.3 m/s) MV E' lateral 0.110 (>0.1 m/s) MV A Vmax 0.60 (0.4-1.3 m/s) LV E/e LAT 5.20 (<14) MV E/A Ratio 0.95 MV E/E' medial 6.09 MV E/E' lateral 5.21 Aortic Valve LVOT Area 3.66 cm2 AoV Area Vmax 3.11 cm2 LVOT Vmax 1.05 m/s AoV Area/ BSA (Vmax) 1.79 cm2/m2 LVOT Mean Cassius. 0.65 m/s ERICH Mean Cassius. 2.82 cm2 LVOT Peak Grad 4.4 mmHg ERICH Mean Cassius. Index 1.62 cm2/m2 LVOT Mean Grad 2.0 mmHg LVOT VTI 0.199 m LVOT Diam s 2.15 cm AoV Vmax 1.24 m/s Velocity Ratio 0.84 AoV Mean Cassius. 0.84 m/s AoV Peak Grad 6.1 mmHg LVOT SV 72.79 mL AoV Mean Grad 3.3 mmHg AoV VTI 0.215 m AoV Area VTI 3.39 cm2 AoV Area/ BSA (VTI) 1.95 cm/m2 Mitral Valve MV DT 218 (160-240 msec) MV PHT 63 msec MV Area PHT 3.48 cm2 MV VTI 0.219 m MV Area VTI 3.33 (4.0-6.0 cm2) Pulmonary Valve PV Vmax 0.90 (0.5-1.5 m/s) RVOT Peak Gr. 1.82 mmHg PV Peak Grad 3.3 mmHg RVOT Mean Gr. 0.90 mmHg PV Mean Grad 1.9 mmHg RVOT VTI 0.153 m PV VTI 0.206 m RVOT Vmax 0.68 m/s Tricuspid Valve TR Peak Grad 36.1 mmHg TR Vmax 3.01 m/s RA Pressure 3.00 mmHg RVSP (TR) 39.2 mmHg
[2022-02-06] MEDS: Pantoprazole 40 MG TABCR PO (08:34)
[2022-02-06] MEDS: Sucralfate 1 GM TAB PO ×3 (08:34→15:52)
[2022-02-06] MEDS: FLUoxetine 20 MG CAP PO (08:34)
[2022-02-06] MEDS: Multivitamin TAB 1 TAB PO (08:34)
[2022-02-06] MEDS: Furosemide 40 MG TAB 80 MG PO ×2 (08:34→15:52)
[2022-02-06] MEDS: Norethindrone 5 MG TAB 10 MG PO (08:34)
[2022-02-06] MEDS: Docusate Sodium 100 MG CAP PO (08:34)
[2022-02-06] MEDS: predniSONE 20 MG TAB 40 MG PO (08:34)
[2022-02-06] MEDS: dilTIAZem 30 MG TAB PO ×2 (08:34→14:19)
[2022-02-06] MEDS: Spironolactone 50 MG TAB PO (08:34)
[2022-02-06] MEDS: Levalbuterol 1.25 MG/3 ML UPD VIAL UPD (09:27)
[2022-02-06] MEDS: Ipratropium 0.5 MG/2.5 ML UPD VIAL UPD (09:29)
[2022-02-06] MEDS: Tiotropium/Olodaterol 10 PUFF INHALER 2 PUFF IH (09:31)
[2022-02-06] MEDS: Budesonide/Formoterol 160/4.5 6 GM 60 PUFF INH IH (09:31)
--- NOTE | 2022-02-06 13:07 | PT.INTREAT ---
Date of service: 02/06/22 Time of Service: 11:36 PT Notes Visit Reasons: Acute on Chronic Hypoxic Respiratory Failure Inpatient Physical Therapy Treatment Note [facility] Date: 02/06/2022 PRECAUTIONS: Activity as tolerated, monitor O2 SUBJECTIVE: Елена is pleasant and agreeable to participating in PT. She is hoping to be discharged to home later today. OBJECTIVE: PAIN: No c/o pain BED MOBILITY/TRANSFERS Supine-sit: I Sit-stand: I Stand-sit: I Bed-Chair: I GAIT Assistive Device: FWW Weight bearing: Full Assist: S Distance: 250' Deviation: None VITALS: 90-93% on 2L O2 via NC with gait training TOILETING: Patient toileted independently ASSESSMENT: Patient tolerated gait training with c/o increased fatigue and mild SOB. She maintains appropriate oxygen saturation with gait training on 2L O2 via NC. She demonstrates independence with transfers and bed mobility at this time. PLAN: Patient to discharge to home later today, per provider. Recommend follow up with PT for continued conditioning for improved activity tolerance. TREATMENT CODE/TIME: 11 minutes; 69226 (11:36)
--- NOTE | 2022-02-06 13:32 | W.PM.DS.N ---
Date of service: 02/06/22 Time of Service: 13:32 DS: Diagnosis Discharge Diagnosis (1) Acute on chronic respiratory failure with hypoxia and hypercapnia: Status: Acute (2) Acute exacerbation of chronic obstructive pulmonary disease: Status: Acute (3) Acute on chronic diastolic heart failure: Status: Acute (4) History of gastric ulcer: Status: Resolved (5) DVT prophylaxis: Status: Acute (6) Vaginal bleeding: Status: Acute (7) Discharge planning issues: Status: Acute Discharge Plan Disposition Patient Disposition: HOME W/HOME HEALTH SERVICE Condition: Fair Discharge Details Reason For Visit: Acute on Chronic Hypoxic Respiratory Failure Admit Date/Time: 01/31/22 20:08 Admit Provider: Laura Mars Attending Provider: Laura Mars Primary Care Provider: [facility] Course Hospital Course: Ms Hernandez is a 61 year old female with PMHx of oxygen-dependent COPD, cardiomyopathy/chronic diastolic CHF, pulmonary hypertension, chronic hypoxic respiratory failure on 2L of O2 by NC, chronic hyponatremia, who returned to [facility] ED with c/o shortness of breath x months, especially so over the last month. The patient admits to having a lot of salt hidden in her diet, knows she has gained weight, endorses orthopnea, PND, and leg swelling.She was evaluated in our ER yesterday for the same symptoms, was found to have an acute exacerbation of her diastolic CHF and was sent home on an increased dose of furosemide. She cannot tell me the doses of her medications, unfortunately. Now, on day of admission, the patient was saturating 80-84% on her usual 2L of O2 and was in enough respiratory distress to warrant initiation of BiPAP. She also received a bolus of 80 mg of IV lasix, methylprednisolone 125 mg, a push of morphine 4 mg x1, and bronchodilators. With these measures, the patient was able to be weaned off of BiPAP to regular nasal canula - 3L. Admission to the hospitalist service was requested. The patient endorsed that she is on hospice and is DNR/DNI. She says she did not call her hospice team prior to coming to the hospital today, and we were not aware of her hospice status until after her admission to the medical service. Her PCP has initiated a referral for a sleep study; concerns for ISAURA. Upon admission IV lasix 80mg BID initiated. With diuresis she improved. Her echocardiogram showed a LVEF of 55-65%. RVSP of 39 mmHg. On the day of intially planned discharge she developed atrial fibrillation with a rapid ventricular response. Her blood pressure dropped to 71/34 with symtoms of dizziness. She was given a fluid bolus, her BB dosage was adjusted and diltiazem initiated. She did convert back to normal sinus rhythm and her BP recovered. She will d/c with a cardiac event monitor. Home wit home health services; resume nursing and added PT/OT and PHARMACY TECHNOLOGY INSTRUCTOR. F/U with PCP in 1-2 weeks. Home Meds and New Rx's Prescriptions: New prednisone 20 mg Tablet 40 mg PO DAILY Qty: 0 0RF Continued multivitamin Tablet 1 tab DAILY Label Comments: take 1 tablet by mouth once daily norethindrone acetate 5 mg tablet 10 mg PO BID Qty: 240 5RF Stiolto Respimat 2.5-2.5 mcg/actuation Mist 2 puff INHALATION DAILY lorazepam 0.5 mg tablet 0.5 mg PO DAILY PRN PRN Label Comments: TAKE 1 TABLET BY MOUTH EVERY DAY NEEDED FOR PANIC nystatin [Nystop] 100,000 unit/gram powder 1 applic TOPICAL DIRECTED Label Comments: APPLY A SMALL AMOUNT TO AFFECTED AREA 2-3 TIMES A DAY UNTIL HEALED Rx Instructions: APPLY A SMALL AMOUNT TO SKIN 2-3 TIMES PER DAY UNTIL HEALED fluticasone propionate [Flovent HFA] 220 mcg/actuation HFA aerosol inhaler 1 puff INHALATION BID Label Comments: INHALE 1 PUFF BY MOUTH TWICE DAILY WITH STIOLTO ipratropium bromide 0.02 % Solution 0.25 mg UPD BID Qty: 60 0RF ipratropium bromide 0.02 % Solution 0.5 mg UPD Q4H PRN PRNQty: 150 0RF levalbuterol tartrate 45 mcg/actuation Hfa Aerosol Inhaler 2 puff inhalation Q4H PRN PRNQty: 15 0RF levalbuterol HCl 1.25 mg/3 mL Solution For Nebulization 1.25 mg UPD BID Qty: 60 0RF levalbuterol HCl 1.25 mg/3 mL Solution For Nebulization 1.25 mg UPD Q4H PRN PRNQty: 90 0RF metoprolol succinate 100 mg Tablet Extended Release 24 Hr 200 mg PO HS Qty: 60 0RF fluoxetine 20 mg Capsule 20 mg PO DAILY acetaminophen 325 mg Tablet 650 mg PO PRN PRN lisinopril 20 mg tablet Label Comments: TAKE ONE TABLET BY MOUTH EVERY DAY spironolactone 50 mg Tablet 50 mg PO 1XD chlorthalidone 25 mg tablet 1 tab PO 1XD Label Comments: TAKE HALF A TABLET BY MOUTH ONCE A DAY FOR BLOOD PRESSURE nortriptyline 25 mg capsule 1 cap PO 1XD Label Comments: Take 1 capsule by mouth every night for pain pantoprazole [Protonix] 40 mg tablet,delayed release (DR/EC) 40 tab PO 1XD Label Comments: Take 1 tablet by mouth once a day take at 730AM furosemide 40 mg tablet 80 mg PO BID Discontinued prednisone 20 mg tablet 80 mg PO DAILY Discharge Instructions Instructions: A-fib (Atrial Fibrillation) (DC) Referrals: [facility] [OTHER] - 03/14/22 10:55 am (Consultation in [facility], 10:55 check in, bring paperwork filled out) Activity:: Activity as Tolerated Equipment/Supplies:: Cardiac event monitor Diet:: Resume usual home diet Discharge Orders Discharge Orders: Discharge Order (Routine); Ordered 02/06/22 Ordered By: Ashish Meneses Other Ambulatory Orders: Cardiac Event Recorder (Routine) Timeframe: 1 Month Facility: [facility] - Location: Respiratory Therapy Ordered By: Ashish Meneses DS: Summary Time Spent with Patient providing and/or coordinating discharge services: Greater than 30 minutes Status at Discharge Functional status at discharge: independent ambulation Overall status at discharge: patient is progressing back to baseline Mental Status: mental status grossly normal Speech and Movement: speech and movement normal Mood: congruent mood Affect: normal affect Exam Narrative Exam Narrative: Obese white female asleep in bed. Not using accessory respiratory muscles not dyspneic able to talk in complete paragraphs. Lungs: clear. No increased work of breathing. Heart is regular. S1, S2. Abdomen is obese soft nontender with normal bowel sounds Extremities without edema Psych Mental Status: mental status grossly normal Speech and Movement: speech and movement normal Mood: congruent mood Affect: normal affect DS: Data Vitals/I&O Vitals and I&O: Vital Signs Temperature 36.6 C 02/06/22 11:03 Temperature Source Tympanic 02/06/22 11:03 Pulse 70 02/06/22 11:03 Pulse Rhythm Regular 02/06/22 09:24 Pulse 88 02/01/22 14:00 Respiratory Rate 20 02/06/22 11:03 Respiratory Effort 02/06/22 09:24 Respiratory Depth Normal 02/06/22 09:24 Respiratory Pattern Normal 02/06/22 09:24 Blood Pressure 118/81 02/06/22 11:03 Blood Pressure Mean 108 02/01/22 12:00 Blood Pressure Position Sitting 02/01/22 12:00 Pulse Oximetry 95 02/06/22 11:03 Respiratory End-tidal CO2 45 02/01/22 06:10 Oxygen Delivery Method Nasal Cannula 02/06/22 11:03 Oxygen Flow Rate 2 02/06/22 11:03 Fraction of Inspired Oxygen (FIO2) 40 02/05/22 08:00 Pain Level 0 02/06/22 07:17 Comment 02/05/22 21:27 Intake & Output 02/05/22 02/06/22 02/06/22 23:59 11:59 23:59 Intake Total 490 / 850 770 / 770 Output Total 750 / 750 550 / 550 Balance -260 / 100 220 / 220 Weight 77.6 kg Intake: IV 250 / 250 Oral 240 / 600 770 / 770 Output: Urine 750 / 750 550 / 550 Other: Urine Color [place] Urine Appearance Clear Clear Urine Odor Normal None Comment Voiding independently in commode Voiding Methods Bedside Commode Bedside Commode Data Completed and Pending Labs on day of discharge: Labs from last 24 hours 02/06/22 02/06/22 02/05/22 06:48 06:48 20:40 Plt Count 213 Troponin I 499 H* 774 H* 02/05/22 16:00 Plt Count Troponin I 652 H* PFSH All Active Problems Vaginal bleeding (Acute) Palliative care patient (Acute) Discharge planning issues (Acute) DVT prophylaxis (Acute) Acute on chronic respiratory failure with hypoxia and hypercapnia (Acute) Acute on chronic diastolic heart failure (Acute) CHF exacerbation (Acute) Acute exacerbation of chronic obstructive pulmonary disease (Acute) Hyponatremia (Acute) Pulmonary hypertension (Chronic) Hypoxia (Chronic) (HFpEF) heart failure with preserved ejection fraction (Chronic) Anxiety (Chronic) Dyspnea (Acute) Uterine mass (Acute) Not candidate for surgery at [facility] or [facility].08/10/21. Had partial uterine artery embolization. Unable to complete 2/2 hypoxia. Acute anemia (Acute) Postmenopausal bleeding (Acute) Dyspnea on exertion (Acute) S/P left inguinal hernia repair (Acute) 01/21/19 Dr Odette Cormier, left Left inguinal hernia (Acute) Incarcerated inguinal hernia, unilateral (Acute) Small bowel obstruction (Acute) Dehydration (Acute) Hypertension (Chronic) Change in mental status (Acute) Cardiomyopathy (Acute) PUD (peptic ulcer disease) (Acute) Iron deficiency anemia due to chronic blood loss (Chronic) Chronic bronchitis with COPD (chronic obstructive pulmonary disease) (Acute) Alcohol abuse (Acute) COPD (chronic obstructive pulmonary disease) (Chronic) Medical History Alcoholic gastritis Former smoker Hyponatremia Mood disorder with psychosis Neck pain on right side Pneumonia Post-menopausal bleeding Pulmonary hypertension Respiratory failure with hypoxia Surgical History EGD - MAC (07/04/16) Social History Smoking/Tobacco Use Status: Former Tobacco Use Quit Date: 01/13/15 Smoking risk assessment performed?: Yes Alcohol Intake: former Drug use: Never Substance use type: does not use Do you feel safe at home: Yes Do you feel safe in your relationship?: Yes
--- NOTE | 2022-02-06 15:47 | PDOC.HHF2F ---
Home Health Certification Home Health Certification: 1. Encounter Date and Reason I certify that Deepthi Hernandez was seen by Ashish Meneses MD on 02/06/22 and that I had a [id number] encounter with this patient that meets the physician face to face encounter requirements. 2. Clinical Findings Supporting Skilled Need and Homebound Status I certify that home health services are medically necessary, include either intermittent intermediate and/or physical/speech therapy, and that this patient is homebound in that absences from the home require considerable and taxing effort and are infrequent or of short duration, or are attributable to the need to receive medical care. [X] (a) Attached documentation from encounter provides clinical findings supporting skilled need and homebound status (including what assistance patient requires to leave the home). The encounter with the patient was in whole, or in part, for the following medical condition, which is the primary reason for home health care: Acute on Chronic Hypoxic Respiratory Failure Senior Care:Resume nursing orders Physical Therapy/Occupational Therapy: Evaluate and treat for gait stability, balance, strengthening. Speech Therapy: REPRODUCTION TECHNICIAN: Assist with obtaining community services. Homebound: D/T ambulatory dysfunction, cannot be out of home w/o assistance of another person. 3. Certification and Authentication I certify that I composed the above information based on my clinical judgement relating to this patient's medical condition and, if applicable, clinical findings communicated to me by the NPP or inpatient physician who performed the Home Health Referral. All further orders will be obtained through [facility] (Community Based Physician - PCP)
--- NOTE | 2022-02-06 17:58 | PDOC.CMDIS ---
- If Service Date Differs Date of service: 02/06/22 Time of Service: 17:58 LACE Index Scoring Tool - Questions: Length of Stay (in days): 4 - 6 Acuity (Admit via E.D.?): Yes Comorbidities: Congestive Heart Failure, Chronic Pulmonary Disease E.D. Visits: 7 - Answers: Total Score: 16 Risk of Readmission: High Risk Care Management Discharge Reason for Hospitalization: Acute on chronic hypoxic respiratory failure Discharge Plan: Deepthi returned home today with new orders for HH RN, PT, OT, RELIGION INSTRUCTOR. Her daughter drove her home via private vehicle. She will follow up with her PCP and discharge plan of care. She is happy to be returning home. Patient/Family Education Needs: Review discharge instructions and limitations, discussion of self care needs including ask me three. Services Needed at Discharge: Home Health Care Services (HH RN, PT, OT, RELIGION INSTRUCTOR)
--- NOTE | 2022-02-06 18:00 | PT.INDS ---
Date of service: 02/06/22 PT Notes Visit Reasons: Acute on Chronic Hypoxic Respiratory Failure Physical Therapy Inpatient Discharge Summary Date: 02/06/2022 Dates of service: 02/02/2022 through 02/06/2022 This is a clinical summary of care provided for the duration of dates listed above. No charge was made in the completion of this documentation. Referring Doctor: Norman Sequeira MD PT Orders: PT CONSULT: Exacerbation Chronic Cond Precautions: Fall. Standard. Activity as tolerated. Patient Profile/Admitting Diagnosis:? Елена is a 61-year-old female with diagnoses of acute on chronic respiratory failure, acute on chronic COPD, pulmonary hypertension, with worsening shortness of breath that has limited her for couple of months now. PMHX: All Active Problems?(Updated 01/31/22 @ 23:53 by Laura Mars MD) Discharge planning issues (Acute) DVT prophylaxis (Acute) Acute on chronic respiratory failure with hypoxia and hypercapnia (Acute) Acute on chronic diastolic heart failure (Acute) CHF exacerbation (Acute) Acute exacerbation of chronic obstructive pulmonary disease (Acute) Hyponatremia (Acute) Pulmonary hypertension (Chronic) Hypoxia (Chronic) (HFpEF) heart failure with preserved ejection fraction (Chronic) Anxiety (Chronic) Dyspnea (Acute) Uterine mass (Acute) Not candidate for [facility] at [facility] or [facility]. Had partial uterine artery embolization. Unable to complete 2/2 hypoxia. Acute anemia (Acute) Postmenopausal bleeding (Acute) Dyspnea on exertion (Acute) S/P left inguinal hernia repair (Acute) 01/21/19 Dr Odette Cormier, left Left inguinal hernia (Acute) Incarcerated inguinal hernia, unilateral (Acute) Small bowel obstruction (Acute) Dehydration (Acute) Hypertension (Chronic) Change in mental status (Acute) Cardiomyopathy (Acute) PUD (peptic ulcer disease) (Acute) Iron deficiency anemia due to chronic blood loss (Chronic) Chronic bronchitis with COPD (chronic obstructive pulmonary disease) (Acute) Alcohol abuse (Acute) COPD (chronic obstructive pulmonary disease) (Chronic) Medical Hitory? Alcoholic gastritis Former smoker Hyponatremia Mood disorder with psychosis Neck pain on right side Pneumonia Post-menopausal bleeding Pulmonary hypertension Respiratory failure with hypoxia Surgical History? EGD - MAC (07/04/16) Social History/Home Situation: Lives with in a private home with 4 steps to enter with 1 rail.? Independent with 4WW prior to admission. Equipment Owned/DME: 4WW Subjective: NT. See most recent CHRONOGRAPH OPERATOR notes. Objective: General Observation: NT. See most recent CHRONOGRAPH OPERATOR notes. Mental Status: NT. See most recent CHRONOGRAPH OPERATOR notes. Pain: NT. See most recent CHRONOGRAPH OPERATOR notes. Vital Signs: NT. See most recent CHRONOGRAPH OPERATOR notes. ROM: Right Upper Extremity: ? Shoulder Flexion WFL. Shoulder abduction WFL. Elbow flexion WFL. Wrist flexion WFL. Functional opening and closing of hand WFL. Left Upper Extremity:? Shoulder Flexion WFL. Shoulder abduction WFL. Elbow flexion WFL. Wrist flexion WFL. Functional opening and closing of hand WFL. Right Lower Extremity: Hip flexion WFL. Hip abduction WFL. Knee flexion WFL. Ankle dorsiflexion WFL. Ankle plantarflexion WFL. Left Lower Extremity: Hip flexion WFL. Hip abduction WFL. Knee flexion WFL. Ankle dorsiflexion WFL. Ankle plantarflexion WFL. Strength: Right Upper Extremity: Shoulder flexors 4-/5. Shoulder abductors 4-/5. Elbow flexors 4/5. Elbow extensors 4-/5. Brushing Machine Operator strong. Left Upper Extremity: Shoulder flexors 4-/5. Shoulder abductors 4-/5. Elbow flexors 4/5. Elbow extensors 4-/5. Brushing Machine Operator strong. Right Lower Extremity: Hip flexors 3+/5. Hip abductors 3+/5. Knee flexors 4-/5. Knee extensors 4-/5. Ankle dorsiflexors 4-/5. Ankle plantarflexors 4-/5. Left Lower Extremity: Hip flexors 3+/5. Hip abductors 3+/5. Knee flexors 4-/5. Knee extensors 4-/5. Ankle dorsiflexors 4-/5. Ankle plantarflexors 4-/5. Bed Mobility/Transfers: Supine to sit independent Sit to supine independent Sit to stand independent Stand to sit independent Bed to reclining independent Gait: Instructed patient with level surface ambulation of 250 feet requiring supervision using 4WW. Balance: Static Sitting: Good Dynamic Sitting: Good Static Standing: Fair Dynamic Standing: Fair Assessment: Patient demonstrates functional mobility improvement based on current status above & mobility level below Goals: Goals X1 week 1. Supine-Sit independent MET 2. Sit-Supine independent MET 3. Sit-Stand independent MET 4. Stand-Sit independent with 4WW MET 5. Bed-Chair independent with 4WW MET 6. Chair-Bed independent with 4WW MET 7. Independent gait on level surface with use of 4WW for at least 100 feet without report of pain nor dyspnea MET 8. Independent stair negotiation while holding onto 1 rail for at least 5 steps without report of pain nor dyspnea MET 9. Independent with home exercise program MET 10. Good static and dynamic standing balance/tolerance MET DISCHARGE RECOMMENDATIONS: [] ? Home with no services [] [] ? Home with services [specify] [] ? Home with outpatient PT [] [] ? SNF for continued rehabilitation [] [] ? Auto Tester Care [] [] ? SNF versus LTC based on ability to participate and progress [] [X] ? SNF vs PT depending on patient's progress towards goals and? level of assist at home TREATMENT CODE/TIME:? NC Thank you for the opportunity to participate in the care of this patient. Marie Murillo PT, DPT, CLT [facility] [place], [place]
--- NOTE | 2022-02-15 12:57 | PFT_ITS ---
Date of service: 02/06/22 Time of Service: 16:45 Pulmonary Function Test Result Requesting Provider Ashish Meneses Indications: Trilogy qualification Interpretation Spirometry: There is severe airflow limitation. The FVC is low. Impression Severe airflow limitation. The FVC may be low due to obesity related pseudo- restriction, but cannot rule out restrictive lung disease from spirometry alone. Clinical Correlation therefore is recommended.
== END 2022-02-06 17:01 | disposition home health service (06) | DRG 291 ==
LOC: ER 20:31 → ICU 22:01 → MS 02-01 15:50
PROVIDERS: Family Medicine; Internal Medicine; Admitting Provider Internal Medicine; Emergency Provider Nurse Practitioner Family; PCP Family Medicine; Visit Provider Internal Medicine
DX: I11.0 Hypertensive heart disease with heart failure (principal); I50.33 Acute on chronic diastolic (congestive) heart failure; J96.21 Acute and chronic respiratory failure with hypoxia; J96.22 Acute and chronic respiratory failure with hypercapnia; J44.1 Chronic obstructive pulmonary disease with (acute) exacerbation; E87.1 Hypo-osmolality and hyponatremia; I42.9 Cardiomyopathy, unspecified; I27.20 Pulmonary hypertension, unspecified; F41.9 Anxiety disorder, unspecified; N95.0 Postmenopausal bleeding; E86.0 Dehydration; F10.10 Alcohol abuse, uncomplicated; D50.0 Iron deficiency anemia secondary to blood loss (chronic); Z99.81 Dependence on supplemental oxygen; Z87.891 Personal history of nicotine dependence; N85.9 Noninflammatory disorder of uterus, unspecified; G47.33 Obstructive sleep apnea (adult) (pediatric); Z87.11 Personal history of peptic ulcer disease; I48.91 Unspecified atrial fibrillation; I95.9 Hypotension, unspecified
CPT/HCPCS: 36410; 36415; 80048; 80053; 82550; 82803; 82805; 84145; 87635; 93005; 93306; 94640; 96374; 96375; 97110; 97162; 97530; 99285; J1650; 36600; 71045; 83735; 83880; 84146; 84484; 85025; 85049; 93010; 94010; 94660; 94664; 94760; 99223; 99231; 99232; 99233; 99239; 99291; J1940; J2270; J2930; J3490; J7512; J7614; J7644

== ENCOUNTER 2022-02-09 03:36 | Outpatient (CLI) | payer MEDICARE, SELFPAY ==
--- NOTE | 2022-03-13 14:44 | W.CARDEVENT ---
Date of service: 03/13/22 Time of Service: 14:44 Cardiac Event Recorder Referring Provider:: [facility] Indications:: Atrial fibrillation Cardiac Event Note: This is a 30-day cardiac event recorder, ordered for paroxysmal atrial fibrillation. Predominant rhythm was sinus with an average heart rate overall of 76. Minimum was 56, maximum 132 There were several episodes of paroxysmal atrial fibrillation, generally with elevated heart rates of approximately 140. It appeared atrial fibrillation was present 1-1/2 days from February 09 through No patient symptoms were reported
== END 2022-02-09 03:37 | disposition home or self-care (01) ==
LOC: RT 03:36
PROVIDERS: PCP Family Medicine; Visit Provider Family Medicine
DX: I47.1 Supraventricular tachycardia (principal)
CPT/HCPCS: 93270

== ENCOUNTER 2022-02-17 14:33 | Outpatient (REF) | payer MEDICARE, SELFPAY ==
[2022-02-17 20:37] LABS: Anion Gap 2.1 mmol/L (3-11); BUN 19 mg/dL (7-18); CO2 38.9 mmol/L (21.0-32.0); CREATININE 0.9 mg/dL (0.55-1.02); Chloride 89 mmol/L (98-107); Glucose 108 mg/dL (74-106); Magnesium 1.9 mg/dL (1.8-2.4); Potassium 4.6 mmol/L (3.5-5.1); Sodium 130 mmol/L (136-145)
== END 2022-02-17 14:34 | disposition home or self-care (01) ==
LOC: NCHCN 14:33
PROVIDERS: PCP Family Medicine; Visit Provider Family Medicine
DX: E87.5 Hyperkalemia (principal); E83.42 Hypomagnesemia; I50.9 Heart failure, unspecified
CPT/HCPCS: 80048; 83735

== ENCOUNTER 2022-03-13 14:44 | Outpatient (CLI) | payer MEDICARE, SELFPAY | END 2022-03-13 14:45 | LOC: CARDO 03-27 09:45 | PROVIDERS: PCP Family Medicine; Referring Provider Family Medicine; Visit Provider Internal Medicine Cardiovascular Disease | DX: I47.1 Supraventricular tachycardia (principal); I48.0 Paroxysmal atrial fibrillation | CPT/HCPCS: 93272 ==

== ENCOUNTER 2022-03-27 10:59 | Inpatient (IN) | payer MEDICARE, SELFPAY ==
[2022-03-27] VITALS (59 sets, daily range): BP systolic 101–143; BP diastolic 45–98; PULSE 62–92; RESP 2–47; TEMP 36.5–37; O2SAT 77–98
--- NOTE | 2022-03-27 11:00 | RT.EKG_ITS ---
APPROVED REPORT Exam: Resting ECG Reason for Exam: sob Patient Location: E HR:70 bpm ECG Measurements Heart Rate 70 AXIS GA 198 P 38 QRSd 89 QRS -51 QT 365 T 24 QTc 394 Conclusion Sinus rhythm...normal P axis, V-rate 60- 99 LAD, consider left anterior fascicular block...axis(240,-40), S>R II III aVF sinus rhythm at 70, left anterior fascicular block, no acute ischemic changes, nondiagnostic EKG
[2022-03-27] MEDS: Albuterol/Ipratropium 3 ML UPD VIAL UPD ×3 (11:49→20:17)
[2022-03-27 11:53] LABS: Abs Immature Grans 0.03 10^3/uL (0.0-0.06); Absolute Basophil Count 0.05 10^3/uL (0.0-0.2); Absolute Eosinophil Count 0.05 10^3/uL (0.0-0.7); Absolute Lymphocyte Count 0.46 10^3/uL (1.2-3.4); Absolute Monocyte Count 1.08 10^3/uL (0.1-0.8); Absolute Neutrophil Count 8.06 10^3/uL (1.2-6.7); Basophils % 0.5; Eosinophils % 0.5; HCT 40.1 % (36.0-46.0); HGB 11.6 g/dL (11.2-15.7); Immature Grans % 0.3; Lymphocytes % 4.7; MCH 25.3 pg (27.0-33.0); MCHC 28.9 % (32.0-36.0); MCV 87 fL (80-95); MPV 9.5 fL (8.0-11.0); Monocytes % 11.1; Neutrophils % 82.9; Platelet Count 318 10^3/uL (130-400); RBC 4.59 10^6/uL (3.93-5.22); RDW 14.8 % (11.7-14.6); RDW-SD 47.7 fL; WBC 9.73 10^3/uL (4.4-10.8)
--- NOTE | 2022-03-27 12:12 | ED.GENADUL_ITS ---
Discharge Plan Disposition Patient Disposition: [facility] INPATIENT Condition: Fair Discharge Details Chief Complaint: RespSymp Clinical Impression: SOB (shortness of breath), Hypercarbia Admit Date/Time: 03/27/22 13:51 Admit Provider: Ashish Meneses Attending Provider: Ashish Meneses Primary Care Provider: [facility] ED Provider: Stacey Nichols Discharge Instructions Activity:: Activity as Tolerated Equipment/Supplies:: Oxygen (L/min Below) Diet:: As Tolerated Discharge Orders Discharge Orders: Discharge Order (Routine); Ordered 03/30/22 Ordered By: Sonam Mccoy Discharge Data Discharge Date/Time-TO BE ENTERED AT DEPARTURE: 03/27/22 15:13 Medical Decision Making Concern for COPD exacerbation, CHF, worsening pulmonary hypertension, acute coronary syndrome,, pneumonia, COVID, other. Doubt pulmonary embolism. Exam/history at this time is not consistent with acute aortic pathology, sepsis. Plan for IV placement, EKG, telemetry, DuoNeb, screening labs, chest x-ray. Will monitor and reassess. Chest x-ray without acute process per radiology. PCO2 on VBG 88. Concern for significant hypercarbia, plan for BiPAP despite no apparent respiratory distress, patient with continued expiratory wheeze, plan for DuoNeb and Solu- Medrol. There may be some component of CHF however concern for COPD exacerbation as major factor in shortness of breath at this time. Plan for admission to ICU on BiPAP. Patient reports feeling improved on BiPAP. Repeat VBG unimproved, will plan to continue. Medical Records Medical records reviewed: Yes I reviewed the patient's medical records. Imaging Data Radiologic Study: Attestation: I personally reviewed and interpreted this imaging study as follows: Radiologist's impression: EXAM:? XR PORTABLE CHEST AP CLINICAL HISTORY: ? SOB. ? TECHNIQUE:? 2D digital imaging was performed. COMPARISON:? CR XR PORTABLE CHEST AP from 12/08/2021 CR,XR XR PORTABLE CHEST AP from 02/01/2022 FINDINGS: Single AP portable view. Heart size is upper normal.? The mediastinum is not widened. Mildly increased interstitial markings in both lung camejo again noted, similar to previous and possibly an element of interstitial chronic disease.? No obvious confluent infiltrates nor pleural effusions.? No Topher B lines.? No pulmonary edema.? No pneumothorax IMPRESSION: Probable chronic interstitial disease.? No obvious new acute pulmonary findings. Lab Data Lab results reviewed: Yes I reviewed the patient's lab results. ECG Data Attestation: I personally reviewed and interpreted this ECG (s) as follows: Interpretation: EKG shows sinus rhythm at 70, left anterior fascicular block, no acute ischemic changes, nondiagnostic EKG HPI General Date/Time Provider Initiated Documentation: 03/27/22 11:25 . Limitations to Documentation: no limitations . Information obtained by: patient, family, RN notes reviewed and old records reviewed . HPI Narrative: Deepthi Hernandez is a 61-year-old woman with history of COPD, pulmonary hypertension, CHF, hypertension presenting to the emergency department with shortness of breath. Patient reports that she has had worsening shortness of breath over the past 3 days. Patient reports that she has had cough, but this is at baseline for her not worse than usual. She denies any other new symptoms. Denies pain, fever, vomiting, diarrhea, numbness, weakness, rash. Patient reports that she has been using albuterol inhaler at home with some improvement in her shortness of breath. Has been taking all other meds as prescribed. Has been eating and drinking as usual. Related Data Home Medications Medication Instructions Recorded Confirmed fluoxetine 20 mg capsule 10 mg PO DAILY 01/14/19 03/27/22 acetaminophen 325 mg tablet 650 mg PO PRN PRN 01/21/19 03/27/22 multivitamin 1 tab DAILY 11/17/19 03/27/22 tiotropium 2.5 mcg-olodaterol 2.5 2 puff inhalation DAILY 09/15/20 03/27/22 mcg/actuation mist for inhalation (Stiolto Respimat) fluticasone propionate 220 1 puff inhalation BID 07/26/21 03/27/22 mcg/actuation HFA aerosol inhaler (Flovent HFA) lorazepam 0.5 mg tablet 0.5 mg PO DAILY PRN PRN 07/26/21 03/27/22 nystatin 100,000 unit/gram topical 1 applic topical DIRECTED 07/26/21 03/27/22 powder (Nystop) ipratropium bromide 0.02 % 0.25 mg (1.25 mL) UPD BID #60 mL 07/29/21 03/27/22 solution for inhalation levalbuterol HCl 1.25 mg/3 mL 1.25 mg (3 mL) UPD BID #60 mL 07/29/21 03/27/22 solution for nebulization levalbuterol tartrate 45 2 puff inhalation Q4H PRN PRN #15 07/29/21 03/27/22 mcg/actuation aerosol inhaler grams metoprolol succinate 100 mg 200 mg PO HS #60 tabs 07/29/21 03/27/22 tablet,extended release 24 hr norethindrone acetate 5 mg tablet 10 mg PO BID #240 tabs 11/14/21 03/27/22 lisinopril 20 mg tablet 0.5 tab DAILY 12/30/21 03/27/22 spironolactone 50 mg tablet 50 mg PO 1XD 12/30/21 03/27/22 furosemide 80 mg tablet 1 tab BID 03/27/22 03/27/22 ipratropium 0.5 mg-albuterol 3 mg 3 ml inhalation BID PRN 03/29/22 03/29/22 (2.5 mg base)/3 mL nebulization soln pregabalin 25 mg capsule 1 - 2 cap PO BID 03/29/22 03/29/22 risperidone 0.25 mg tablet 1 tab PO HS 03/29/22 03/29/22 magnesium oxide 400 mg (241.3 mg 400 mg PO HS #0 tabs 03/30/22 magnesium) tablet prednisone 20 mg tablet 40 mg PO DAILY #6 tabs 03/30/22 Previous Rx's Medication Instructions Recorded ipratropium bromide 0.02 % 0.25 mg (1.25 mL) UPD BID #60 mL 07/29/21 solution for inhalation levalbuterol HCl 1.25 mg/3 mL 1.25 mg (3 mL) UPD BID #60 mL 07/29/21 solution for nebulization levalbuterol tartrate 45 2 puff inhalation Q4H PRN PRN #15 07/29/21 mcg/actuation aerosol inhaler grams metoprolol succinate 100 mg 200 mg PO HS #60 tabs 07/29/21 tablet,extended release 24 hr norethindrone acetate 5 mg tablet 10 mg PO BID #240 tabs 11/14/21 magnesium oxide 400 mg (241.3 mg 400 mg PO HS #0 tabs 03/30/22 magnesium) tablet prednisone 20 mg tablet 40 mg PO DAILY #6 tabs 03/30/22 Allergies Allergy/AdvReac Type Severity Reaction Status Date / Time No Known Allergies Allergy Verified 03/27/22 11:16 General Stated Complaint: RespSymp MAYA: 2 Review of Systems Narrative: Constitutional: denies fevers Eyes: denies eye pain ENT: denies ear pain, dental pain, sore throat Cardiovascular: denies chest pain, edema Respiratory: Reports SOB, chronic cough GI: denies abdominal pain, vomiting, diarrhea : denies flank pain MSK: denies back pain, neck pain, arthralgias, myalgias Skin: denies rash Neuro: denies headaches, numbness, weakness PFSH All Active Problems (Updated 04/03/22 @ 12:10 by Stacey Nichols MD) SOB (shortness of breath) (Acute) Hypercarbia (Acute) COPD exacerbation (Acute) Acute and chronic respiratory failure (Acute) Vaginal bleeding (Acute) Palliative care patient (Acute) Hyponatremia (Acute) Pulmonary hypertension (Chronic) Hypoxia (Chronic) (HFpEF) heart failure with preserved ejection fraction (Chronic) Anxiety (Chronic) Dyspnea (Acute) Acute anemia (Acute) Postmenopausal bleeding (Acute) Dyspnea on exertion (Acute) S/P left inguinal hernia repair (Acute) 01/21/19 Dr Odette Cormier, left Left inguinal hernia (Acute) Incarcerated inguinal hernia, unilateral (Acute) Small bowel obstruction (Acute) Dehydration (Acute) Hypertension (Chronic) Change in mental status (Acute) Cardiomyopathy (Acute) Iron deficiency anemia due to chronic blood loss (Chronic) Chronic bronchitis with COPD (chronic obstructive pulmonary disease) (Acute) Alcohol abuse (Acute) COPD (chronic obstructive pulmonary disease) (Chronic) Medical History Alcoholic gastritis Former smoker Hyponatremia Mood disorder with psychosis Neck pain on right side Pneumonia Post-menopausal bleeding Pulmonary hypertension Respiratory failure with hypoxia Uterine mass Not candidate for surgery at [facility] or [facility] Had partial uterine artery embolization. Unable to complete 2/2 hypoxia. Surgical History EGD - MAC (07/04/16) Social History Smoking/Tobacco Use Status: Former Tobacco Use Quit Date: 01/13/15 Smoking risk assessment performed?: Yes Alcohol Intake: former Drug use: Never Substance use type: does not use Do you feel safe at home: Yes Do you feel safe in your relationship?: Yes Exam Narrative Exam Narrative: Constitutional: well and [id number], pleasant, conversing normally HENT: head atraumatic/normocephalic/normal inspection, mucous membranes moist Eyes: conjunctiva normal, sclera normal, pupils 3mm b/l Neck: no stridor, normal ROM, trachea midline Chest: normal inspection Resp: normal work of breathing, fine rales bilateral bases, mild expiratory wheeze throughout Cardio: normal rate, normal rhythm, no murmur appreciated GI: abdomen soft, non-tender, non-distended Back: normal inspection, no rash Skin: warm, dry, normal color, no rash Neuro: alert, not altered, grossly non-focal, normal tone Ext: no edema, no posterior calf tenderness to palpation Psych: normal mood, normal affect, normal behavior Course Vital Signs Vital signs: Vital Signs Temperature 36.5 C 03/27/22 11:05 Pulse 74 03/27/22 11:05 Respiratory Rate 24 03/27/22 11:05 Blood Pressure 118/45 L 03/27/22 11:05 Pulse Oximetry 77 L 03/27/22 11:05 Temperature 36.5 C 03/27/22 11:05 Temperature Source Temporal Artery Scan 03/27/22 11:05 Pulse 74 03/27/22 11:05 Pulse 73 03/27/22 12:00 Respiratory Rate 26 H 03/27/22 12:00 Respiratory Effort 03/27/22 11:43 Respiratory Depth Normal 03/27/22 11:43 Blood Pressure 118/45 L 03/27/22 11:05 Blood Pressure Position Sitting 03/27/22 11:05 Pulse Oximetry 96 03/27/22 12:00 Oxygen Delivery Method Nasal Cannula 03/27/22 11:05 Oxygen Flow Rate 2 03/27/22 11:05 Lab/Test Results Lab/Test Results: Laboratory Tests Range/Units 03/27/22 11:25 WBC (4.4-10.8) 10^3/uL 9.73 RBC (3.93-5.22) 10^6/uL 4.59 Hgb (11.2-15.7) g/dL 11.6 Hct (36.0-46.0) % 40.1 MCV (80-95) fL 87 MCH (27.0-33.0) pg 25.3 L MCHC (32.0-36.0) % 28.9 L RDW (11.7-14.6) % 14.8 H Plt Count (130-400) 10^3/uL 318 MPV (8.0-11.0) fL 9.5 Immature Gran % 0.3 Neutrophils % 82.9 Lymphocytes % 4.7 Monocytes % 11.1 Eosinophils % 0.5 Basophils % 0.5 Nucleated RBC % (0.0-0.3) % 0.0 Absolute Neutrophils (1.2-6.7) 10^3/uL 8.06 H Absolute Lymphocytes (1.2-3.4) 10^3/uL 0.46 L Absolute Monocytes (0.1-0.8) 10^3/uL 1.08 H Absolute Eosinophils (0.0-0.7) 10^3/uL 0.05 Absolute Basophils (0.0-0.2) 10^3/uL 0.05 Critical Care Time Critical Care Time Critical Care Time: Yes Total Critical Care Time: 35 Attestation: I have spent 35 minutes of critical care time including frequent bedside reassessments, interpretation of labs, discussion with family.
[2022-03-27] MEDS: methylPREDNISolone SUCC 125 MG VIAL IVP (12:13)
[2022-03-27 12:22] LABS: ALT 25 U/L (14-59); AST 20 U/L (15-37); Albumin 3.5 g/dL (3.4-5.0); Alkaline Phosphatase 69 U/L (46-116); Anion Gap -0.1 mmol/L (3-11); BUN 21 mg/dL (7-18); Bilirubin, Total 0.4 mg/dL (0.2-1.0); CO2 40.1 mmol/L (21.0-32.0); Calcium 8.8 mg/dL (8.5-10.1); Chloride 92 mmol/L (98-107); Glucose 96 mg/dL (74-106); Potassium 4.8 mmol/L (3.5-5.1); Sodium 132 mmol/L (136-145); Total Protein 7.5 g/dL (6.4-8.2); Troponin I < 50 ng/L (<or=60)
[2022-03-27 12:28] LABS: COVID-19 PCR Negative (Negative); Influenza A PCR Negative (Negative); Influenza B PCR Negative (Negative); RSV PCR Negative (Negative)
[2022-03-27 12:39] LABS: BE (Venous) 14 mmol/L (-2-3); HCO3 (Venous) 41 mmol/L (23-28); O2 Sat (Venous) 51 %; TCO2 (Venous) 39 mmol/L (24-29); pH (Venous) 7.28 (7.31-7.41); pO2 (Venous) 31 mmHg
[2022-03-27 12:41] LABS: pCO2 (Venous) 88 mmHg (41-51)
[2022-03-27 13:02] LABS: D-Dimer 660 ng/mlFEU (<500)
[2022-03-27 13:17] LABS: NT-proBNP 2642 pg/mL (<300)
--- NOTE | 2022-03-27 13:38 | DI.RAD_ITS ---
Exam(s) XR PORTABLE CHEST AP EXAM: XR PORTABLE CHEST AP CLINICAL HISTORY: SOB. TECHNIQUE: 2D digital imaging was performed. COMPARISON: CR XR PORTABLE CHEST AP from 12/08/2021 CR,XR XR PORTABLE CHEST AP from 02/01/2022 FINDINGS: Single AP portable view. Heart size is upper normal. The mediastinum is not widened. Mildly increased interstitial markings in both lung camejo again noted, similar to previous and possi unique an element of interstitial chronic disease. No obvious confluent infiltrates nor pleural effusio ns. No Topher B lines. No pulmonary edema. No pneumothorax IMPRESSION: Probable chronic interstitial disease. No obvious new acute pulmonary findings. DATA REPOSITORY: RADIATION DOSE DELIVERED: All CT scans at this facility use at least one of these dose optimization techniques: automated exposure control; mA and/or kV adjustment per patient size (includes targeted e xams where dose is matched to clinical indication); or iterative reconstruction.
[2022-03-27 14:35] LABS: BE (Venous) 14 mmol/L (-2-3); HCO3 (Venous) 41 mmol/L (23-28); O2 Sat (Venous) 73 %; TCO2 (Venous) 39 mmol/L (24-29); pH (Venous) 7.27 (7.31-7.41); pO2 (Venous) 43 mmHg
[2022-03-27 14:37] LABS: pCO2 (Venous) 89 mmHg (41-51)
[2022-03-27 15:05] LABS: Troponin I < 50 ng/L (<or=60)
[2022-03-27] MEDS: Enoxaparin 40 MG/0.4 ML SYR SC (16:13)
[2022-03-27] MEDS: Normal Saline Flush 10 ML SYR IVP ×2 (16:15→20:16)
[2022-03-27] MEDS: Furosemide 40 MG/4 ML VIAL IVP (16:16)
--- NOTE | 2022-03-27 16:32 | W.PM.HP.N ---
Date of service: 03/27/22 Time of Service: 16:33 Assessment and Plan Assessment and plan (1) Hyponatremia: Status: Acute Assessment and plan: Chronic and in her typical range. (2) Pulmonary hypertension: Status: Chronic Assessment and plan: This is a factor in her chronic resp failure, along with COPD, OHS. (3) (HFpEF) heart failure with preserved ejection fraction: Status: Chronic Assessment and plan: Echocardiogram in January of this year showed an EF of 55-60%. Elevated BNP currently. Lasix 40mg IV BID. Heart Healthy diet. (4) Acute and chronic respiratory failure: Status: Acute Assessment and plan: Has had recent sleep study and PFTs. Waiting for sleep study results to determine intervention. Will continue to f/u with Dr Marrero, pulmonary medicine. Significant CO2 retainer. BiPAP. (5) COPD exacerbation: Status: Acute Assessment and plan: Cont IV steroids, nebs, Stiolto. (6) Hypertension: Status: Chronic Assessment and plan: Cont lisinopril and metoprolol. Monitor (7) Mood disorder with psychosis: Assessment and plan: Continue fluoxetine and daily prn lorazepam. History of Present Illness History of Present Illness Chief Complaint: Shortness of air Narrative: This is a 61 yo female with a PMH of O2 dependent COPD / chronic respiratory failure, cardiomyopathy, diastolic CHF, pulmonary HTN, chronic hyponatremia. She endorsed 3 days of increasing SOA. No CP, sputum, F/C. She endorsed recent sleep study. Recent PFTs showed restrictive pattern thought to be at least in part d/t body habitus/obesity. Echocardiogram on 02/06/22 showed an EF of 55-60%. Vital Signs Temperature ?36.5 C ?03/27/22 11:05 Pulse ?74 ?03/27/22 11:05 Respiratory Rate ?24 ?03/27/22 11:05 Blood Pressure ?118/45 L ?03/27/22 11:05 Pulse Oximetry ?77 L ?03/27/22 11:05 VBG pCO2 was 88. WBC count normal. Na 132. NTProBNP 2642 CXR reading: probable chronic interstitial disease. No obvious new acute pulmonary findings. She was administered Duonebs and IV methyprednisolone. She was placed on BiPAP Review of Systems All systems reviewed & are unremarkable except as noted in HPI and below PFSH All Active Problems (Updated 03/27/22 @ 16:54 by Ashish Meneses MD) COPD exacerbation (Acute) Acute and chronic respiratory failure (Acute) Vaginal bleeding (Acute) Palliative care patient (Acute) Hyponatremia (Acute) Pulmonary hypertension (Chronic) Hypoxia (Chronic) (HFpEF) heart failure with preserved ejection fraction (Chronic) Anxiety (Chronic) Dyspnea (Acute) Uterine mass (Acute) Not candidate for surgery at [facility] or [facility] [place].08/10/21. Had partial uterine artery embolization. Unable to complete 2/2 hypoxia. Acute anemia (Acute) Postmenopausal bleeding (Acute) Dyspnea on exertion (Acute) S/P left inguinal hernia repair (Acute) 01/21/19 Dr Odette Cormier, left Left inguinal hernia (Acute) Incarcerated inguinal hernia, unilateral (Acute) Small bowel obstruction (Acute) Dehydration (Acute) Hypertension (Chronic) Change in mental status (Acute) Cardiomyopathy (Acute) Iron deficiency anemia due to chronic blood loss (Chronic) Chronic bronchitis with COPD (chronic obstructive pulmonary disease) (Acute) Alcohol abuse (Acute) COPD (chronic obstructive pulmonary disease) (Chronic) Medical History Alcoholic gastritis Former smoker Hyponatremia Mood disorder with psychosis Neck pain on right side Pneumonia Post-menopausal bleeding Pulmonary hypertension Respiratory failure with hypoxia Surgical History EGD - MAC (07/04/16) Social History Smoking/Tobacco Use Status: Former Tobacco Use Quit Date: 01/13/15 Smoking risk assessment performed?: Yes Alcohol Intake: former Drug use: Never Substance use type: does not use Do you feel safe at home: Yes Do you feel safe in your relationship?: Yes Meds Allergies and Home Medications Allergies Allergy/AdvReac Type Severity Reaction Status Date / Time No Known Allergies Allergy Verified 03/27/22 11:16 Home Medications Medication Instructions Recorded Confirmed Type fluoxetine 20 mg capsule 10 mg PO DAILY 01/14/19 03/27/22 History acetaminophen 325 mg tablet 650 mg PO PRN PRN 01/21/19 03/27/22 History multivitamin 1 tab DAILY 11/17/19 03/27/22 History tiotropium 2.5 mcg-olodaterol 2.5 2 puff inhalation DAILY 09/15/20 03/27/22 History mcg/actuation mist for inhalation (Stiolto Respimat) fluticasone propionate 220 1 puff inhalation BID 07/26/21 03/27/22 History mcg/actuation HFA aerosol inhaler (Flovent HFA) lorazepam 0.5 mg tablet 0.5 mg PO DAILY PRN PRN 07/26/21 03/27/22 History nystatin 100,000 unit/gram topical 1 applic topical DIRECTED 07/26/21 03/27/22 History powder (Nystop) ipratropium bromide 0.02 % 0.25 mg (1.25 mL) UPD BID #60 mL 07/29/21 03/27/22 Rx solution for inhalation levalbuterol HCl 1.25 mg/3 mL 1.25 mg (3 mL) UPD BID #60 mL 07/29/21 03/27/22 Rx solution for nebulization levalbuterol tartrate 45 2 puff inhalation Q4H PRN PRN #15 07/29/21 03/27/22 Rx mcg/actuation aerosol inhaler grams metoprolol succinate 100 mg 200 mg PO HS #60 tabs 07/29/21 03/27/22 Rx tablet,extended release 24 hr norethindrone acetate 5 mg tablet 10 mg PO BID #240 tabs 11/14/21 03/27/22 Rx lisinopril 20 mg tablet 0.5 tab DAILY 12/30/21 03/27/22 History spironolactone 50 mg tablet 50 mg PO 1XD 12/30/21 03/27/22 History furosemide 80 mg tablet 1 tab BID 03/27/22 03/27/22 History Exam Narrative Exam Narrative: BiPAP in place. Pt asleep. Arouses briefly to stimuli. Const General: cooperative and no acute distress Nutritional Appearance: obese Eyes General: appearance normal, both eyes and all related structures Sclera: sclerae normal Resp Auscultation: bronchial breath sounds and diminished lung sounds Cardio Rate: regular rate Rhythm: regular rhythm Heart Sounds: S1 normal and S2 normal GI Palpation: soft and nontender Auscultation: normal bowel sounds Skin General skin exam: no rashes or lesions noted Extrem General: no pedal edema and no calf tenderness Results Labs Result diagrams: 03/27/22 11:25 03/27/22 11:25 Labs: Laboratory Results - last 24 hr 03/27/22 03/27/22 03/27/22 11:25 11:25 11:25 WBC 9.73 RBC 4.59 Hgb 11.6 Hct 40.1 MCV 87 MCH 25.3 L MCHC 28.9 L RDW 14.8 H Plt Count 318 MPV 9.5 Immature Gran % 0.3 Neutrophils % 82.9 Lymphocytes % 4.7 Monocytes % 11.1 Eosinophils % 0.5 Basophils % 0.5 Nucleated RBC % 0.0 Absolute Neutrophils 8.06 H Absolute Lymphocytes 0.46 L Absolute Monocytes 1.08 H Absolute Eosinophils 0.05 Absolute Basophils 0.05 D-Dimer 660 H VBG pH VBG pCO2 VBG pO2 VBG HCO3 VBG Total CO2 VBG O2 Saturation VBG Base Excess Sodium 132 L Potassium 4.8 Chloride 92 L Carbon Dioxide 40.1 H Anion Gap -0.1 L BUN 21 H Creatinine 1.0 Est GFR (CKD-EPI 2020) 63.30 Glucose 96 Calcium 8.8 Total Bilirubin 0.4 AST 20 ALT 25 Alkaline Phosphatase 69 Troponin I < 50 NT-Pro-B Natriuret Pep Total Protein 7.5 Albumin 3.5 COVID-19 Source SARS-CoV-2 (PCR) Influenza Type A (PCR) Influenza Type B (PCR) RSV (PCR) 03/27/22 03/27/22 03/27/22 11:39 12:35 12:35 WBC RBC Hgb Hct MCV MCH MCHC RDW Plt Count MPV Immature Gran % Neutrophils % Lymphocytes % Monocytes % Eosinophils % Basophils % Nucleated RBC % Absolute Neutrophils Absolute Lymphocytes Absolute Monocytes Absolute Eosinophils Absolute Basophils D-Dimer VBG pH 7.28 L VBG pCO2 88 H* VBG pO2 31 VBG HCO3 41 H VBG Total CO2 39 H VBG O2 Saturation 51 VBG Base Excess 14 H Sodium Potassium Chloride Carbon Dioxide Anion Gap BUN Creatinine Est GFR (CKD-EPI 2020) Glucose Calcium Total Bilirubin AST ALT Alkaline Phosphatase Troponin I NT-Pro-B Natriuret Pep 2642 H Total Protein Albumin COVID-19 Source Not Applicable SARS-CoV-2 (PCR) Negative Influenza Type A (PCR) Negative Influenza Type B (PCR) Negative RSV (PCR) Negative 03/27/22 03/27/22 14:17 14:17 WBC RBC Hgb Hct MCV MCH MCHC RDW Plt Count MPV Immature Gran % Neutrophils % Lymphocytes % Monocytes % Eosinophils % Basophils % Nucleated RBC % Absolute Neutrophils Absolute Lymphocytes Absolute Monocytes Absolute Eosinophils Absolute Basophils D-Dimer VBG pH 7.27 L VBG pCO2 89 H* VBG pO2 43 VBG HCO3 41 H VBG Total CO2 39 H VBG O2 Saturation 73 VBG Base Excess 14 H Sodium Potassium Chloride Carbon Dioxide Anion Gap BUN Creatinine Est GFR (CKD-EPI 2020) Glucose Calcium Total Bilirubin AST ALT Alkaline Phosphatase Troponin I < 50 NT-Pro-B Natriuret Pep Total Protein Albumin COVID-19 Source SARS-CoV-2 (PCR) Influenza Type A (PCR) Influenza Type B (PCR) RSV (PCR) Last Vital Signs Temp 37.0 C 03/27/22 15:15 Pulse 74 03/27/22 15:32 Resp 18 03/27/22 15:32 BP 132/57 L 03/27/22 15:15 Pulse Ox 90 L 03/27/22 15:32
[2022-03-27] MEDS: methylPREDNISolone SUCC 40 MG VIAL IVP ×2 (16:56→20:17)
[2022-03-27] MEDS: LORazepam 0.5 MG TAB PO (20:16)
[2022-03-27] MEDS: Acetaminophen 325 MG TAB PO (20:16)
[2022-03-27] MEDS: Norethindrone 5 MG TAB 10 MG PO (20:18)
[2022-03-27] MEDS: Mometasone 220 MCG 14 DOSE INHALER 2 PUFF IH (20:18)
[2022-03-27] MEDS: Metoprolol CR 100 MG TABCR 200 MG PO (20:20)
[2022-03-28] VITALS (30 sets, daily range): BP systolic 98–152; BP diastolic 61–90; PULSE 69–88; RESP 1–35; TEMP 36.5–37.4; O2SAT 88–95
[2022-03-28 05:36] LABS: HCO3 (Venous) 41 mmol/L (23-28); O2 Sat (Venous) 92 %; TCO2 (Venous) 38 mmol/L (24-29); pH (Venous) 7.39 (7.31-7.41); pO2 (Venous) 60 mmHg
[2022-03-28 05:41] LABS: BE (Venous) > 15 mmol/L (-2-3)
[2022-03-28 05:42] LABS: pCO2 (Venous) 69 mmHg (41-51)
[2022-03-28 06:03] LABS: Anion Gap -1.3 mmol/L (3-11); BUN 19 mg/dL (7-18); CO2 40.3 mmol/L (21.0-32.0); Calcium 8.9 mg/dL (8.5-10.1); Chloride 89 mmol/L (98-107); Glucose 139 mg/dL (74-106); Magnesium 1.7 mg/dL (1.8-2.4); Potassium 5.5 mmol/L (3.5-5.1); Sodium 128 mmol/L (136-145)
[2022-03-28] MEDS: Albuterol/Ipratropium 3 ML UPD VIAL UPD ×3 (07:49→19:52)
[2022-03-28] MEDS: Mometasone 220 MCG 14 DOSE INHALER 2 PUFF IH ×2 (07:49→19:53)
[2022-03-28] MEDS: Tiotropium/Olodaterol 10 PUFF INHALER 2 PUFF IH (07:49)
[2022-03-28] MEDS: Normal Saline Flush 10 ML SYR IVP ×2 (08:31→15:54)
[2022-03-28] MEDS: FLUoxetine 10 MG TAB PO (08:32)
[2022-03-28] MEDS: Multivitamin TAB 1 TAB PO (08:32)
[2022-03-28] MEDS: Norethindrone 5 MG TAB 10 MG PO ×2 (08:32→19:51)
[2022-03-28] MEDS: methylPREDNISolone SUCC 40 MG VIAL IVP ×2 (08:32→19:52)
[2022-03-28] MEDS: Lisinopril 10 MG TAB PO (08:32)
[2022-03-28] MEDS: Spironolactone 50 MG TAB PO (08:32)
[2022-03-28] MEDS: Furosemide 40 MG/4 ML VIAL IVP ×2 (08:33→15:54)
--- NOTE | 2022-03-28 10:40 | NUR.NOTE ---
Patient stated that she has eye pain and belly pain. Patient also stated that she feels a little depressed today because she's in the hospital again. RN notified. Nursing Note:
[2022-03-28] MEDS: Acetaminophen 325 MG TAB PO ×3 (10:49→19:52)
--- NOTE | 2022-03-28 15:37 | W.PM.PROGNOT ---
Date of Service Date of service: 03/28/22 Time of Service: 15:37 Assessment and Plan Assessment and plan (1) Hyponatremia: Status: Acute Assessment and plan: Chronic. 132 on admission; now 128. Monitor. (2) Pulmonary hypertension: Status: Chronic Assessment and plan: This is a factor in her chronic resp failure, along with COPD, OHS. (3) (HFpEF) heart failure with preserved ejection fraction: Status: Chronic Assessment and plan: Echocardiogram in January of this year showed an EF of 55-60%. Elevated BNP currently. Lasix 40mg IV BID; change to daily in AM. Heart Healthy diet. (4) Acute and chronic respiratory failure: Status: Acute Assessment and plan: Has had recent sleep study and PFTs. Waiting for sleep study results to determine intervention. Will continue to f/u with Dr Marrero, pulmonary medicine. Significant CO2 retainer. BiPAP. Tolerating fairly well. VBG pCO2 now 69; down from 89 on presentation. pH now 7.39. (5) COPD exacerbation: Status: Acute Assessment and plan: Cont IV steroids, nebs, Stiolto. Change to po prednisone in AM. (6) Hypertension: Status: Chronic Assessment and plan: Cont lisinopril and metoprolol. Monitor (7) Mood disorder with psychosis: Assessment and plan: Continue fluoxetine and daily prn lorazepam. Subjective Subjective Patient reports: no new complaints, feels better, tolerating a regular diet and shortness of breath (With exertion); denies nausea or vomiting Exam Narrative Exam Narrative: Pt sitting in Const General: cooperative and no acute distress Nutritional Appearance: obese Orientation: alert and oriented x3 Eyes General: appearance normal, both eyes and all related structures Sclera: sclerae normal Resp Effort & Inspection: normal respiratory effort Auscultation: diminished lung sounds and rales bilaterally (Faint) Cardio Rate: regular rate Rhythm: regular rhythm Heart Sounds: S1 normal and S2 normal GI Palpation: soft and nontender Auscultation: normal bowel sounds Skin General skin exam: no rashes or lesions noted Extrem General: no pedal edema and no calf tenderness Psych Appearance: grossly normal Mental Status: mental status grossly normal Affect: normal affect Thought Process: normal (Occassionally tangential. ) Thought Content: normal Insight: fair Objective Last Vital Signs Temp 36.5 C 03/28/22 13:42 Pulse 76 03/28/22 12:04 Resp 24 03/28/22 11:38 BP 135/78 03/28/22 12:04 Pulse Ox 89 L 03/28/22 13:31 Laboratory Results - last 24 hr 03/28/22 03/28/22 05:23 05:23 VBG pH 7.39 VBG pCO2 69 H* VBG pO2 60 VBG HCO3 41 H VBG Total CO2 38 H VBG O2 Saturation 92 VBG Base Excess > 15 H Sodium 128 L Potassium 5.5 H Chloride 89 L Carbon Dioxide 40.3 H Anion Gap -1.3 L BUN 19 H Creatinine 1.0 Est GFR (CKD-EPI 2020) 63.30 Glucose 139 H Calcium 8.9 Magnesium 1.7 L
[2022-03-28] MEDS: Levalbuterol 1.25 MG/3 ML UPD VIAL UPD (15:52)
[2022-03-28] MEDS: Enoxaparin 40 MG/0.4 ML SYR SC (15:52)
--- NOTE | 2022-03-28 16:12 | CHAPLAIN ---
I visited with Deepthi when she was in the ED. She told me that she's been dealing with COPD and cardiac issues, as well as a hernia. She explained that her health issues wear her out, and she is often tired. Her daughter was here to visit earlier in the day.
--- NOTE | 2022-03-28 17:08 | INITIAL_ITS ---
- If Service Date Differs Date of service: 03/28/22 Time of Service: 17:08 Care Management Initial Assess REASON FOR HOSPITALIZATION:: COPD exacerbation PAST MEDICAL HISTORY/PAST SURGICAL HISTORY:: All Active Problems. COPD exacerbation (Acute). Acute and chronic respiratory failure (Acute). Vaginal bleeding (Acute). Palliative care patient (Acute). Hyponatremia (Acute). Pulmonary hypertension (Chronic). Hypoxia (Chronic). (HFpEF) heart failure w ith preserved ejection fraction (Chronic). Anxiety (Chronic). Dyspnea (Acute). Uterine mass (Acute). Not candidate for surgery at [facility] or [facility] [place] [facility].08/10/21. Had partial uterine artery embolization. Unable to complete 2/2 hypoxia. Acute anemia (Acute). Postmenopausal bleeding (Acute). Dyspnea on exertion (Acute). S/P left inguinal hernia repair (Acute). 01/21/19 Dr Odette Cormier, left. Left inguinal hernia (Acute). Incarcerated inguinal hernia, unilateral (Acute). Small bowel obstruction (Acute). Dehydration (Acute). Hypertension (Chronic). Change in mental status (Acute). Cardiomyopathy (Acute). Iron deficiency anemia due to chronic blood loss (Chronic). Chronic bronchitis with COPD (chronic obstructive pulmonary disease) (Acute). Alcohol abuse (Acute). COPD (chronic obstructive pulmonary disease) (Chronic). Medical History. Alcoholic gastritis. Former smoker. Hyponatremia. Mood disorder with psychosis. Neck pain on right side. Pneumonia. Post-menopausal bleeding. Pulmonary hypertension. Respiratory failure with hypoxia. Surgical History. EGD - MAC (07/04/16) PREVIOUS FUNCTIONAL STATUS/SOCIAL/FAMILY SUPPORTS:: Елена lives in a single family home with her Osmani and daughter Evonne in [place]. Osmani has 2 other children by a previous marriage. 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 She has COPD and emphysema (per patient) and uses home oxygen at 2L/min. Елена receives no additional community services and is independent with ADLs at baseline. She continues to drive, but rarely, she reported. CURRENT FUNCTIONAL STATUS:: Елена was sitting up in her chair, visiting with her daughter, Evonne. She stated that things were going well at home, although she struggles with her oxygen needs at night. She reported that she had a sleep study, but that she was asked to go back for another study. She has a palliative care consult, but there is no availability today for palliative care, so she will likely be seen in the next day or two. CM will continue to follow. ADVANCE DIRECTIVES:: On file. Daughter, Evonne HCA. , Osmani, listed as alternate HCA. Has patient been provided with info about the portal/API?: Yes Did the patient sign up for the portal?: No CODE STATUS:: Full Code INSURANCE COVERAGE / FINANCIAL ISSUES:: [facility] MCR replacement CURRENT HOME/COMMUNITY SERVICES/EQUIPMENT:: [facility]STA RN, Home O2 through [facility] [place] PRIMARY CARE PHYSICIAN:: [facility] Eagle POTENTIAL DISCHARGE NEEDS:: Follow up with PCP and plan of care PATIENT/FAMILY EDUCATION NEEDS:: Review of discharge instructions, medications, limitations, activity, Ask Me Three ANTICIPATED BARRIERS TO DISCHARGE:: None. TRANSPORTATION:: Via private vehicle by family. PLAN:: Елена will likely be discharged home when medically cleared by MD, with a resumption of [facility]RISTA RN. She will follow up with her PCP and plan of care and tra nsport with family. CM will assess and support identified discharge needs.
[2022-03-28] MEDS: Milk of Magnesia 30 ML CUP PO (19:51)
[2022-03-28] MEDS: LORazepam 0.5 MG TAB PO (19:52)
[2022-03-28] MEDS: Metoprolol CR 100 MG TABCR 200 MG PO (20:55)
[2022-03-29] VITALS (10 sets, daily range): BP systolic 128–154; BP diastolic 77–84; PULSE 74–85; RESP 4–20; TEMP 35.9–36.7; O2SAT 92–96
[2022-03-29 07:03] LABS: Platelet Count 318 10^3/uL (130-400)
[2022-03-29 07:10] LABS: Anion Gap -2.3 mmol/L (3-11); BUN 24 mg/dL (7-18); CO2 41.3 mmol/L (21.0-32.0); Calcium 9.4 mg/dL (8.5-10.1); Chloride 89 mmol/L (98-107); Glucose 103 mg/dL (74-106); Potassium 5.2 mmol/L (3.5-5.1); Sodium 128 mmol/L (136-145)
[2022-03-29] MEDS: Furosemide 80 MG TAB PO ×2 (07:35→15:50)
[2022-03-29] MEDS: Lisinopril 10 MG TAB PO (07:35)
[2022-03-29] MEDS: predniSONE 20 MG TAB 40 MG PO (07:35)
[2022-03-29] MEDS: Norethindrone 5 MG TAB 10 MG PO ×2 (07:36→19:57)
[2022-03-29] MEDS: FLUoxetine 10 MG TAB PO (07:36)
[2022-03-29] MEDS: Spironolactone 50 MG TAB PO (07:36)
[2022-03-29] MEDS: Multivitamin TAB 1 TAB PO (07:36)
[2022-03-29] MEDS: Tiotropium/Olodaterol 10 PUFF INHALER 2 PUFF IH (08:24)
[2022-03-29] MEDS: Mometasone 220 MCG 14 DOSE INHALER 2 PUFF IH ×2 (08:24→20:00)
[2022-03-29] MEDS: Albuterol/Ipratropium 3 ML UPD VIAL UPD ×3 (08:25→19:57)
--- NOTE | 2022-03-29 10:01 | PDOC.CMPRO ---
- If Service Date Differs Date of service: 03/29/22 Time of Service: 10:01 Care Management Progress Note S/O: Елена was not available when CM attempted to meet with her today. Per report, she is nearing her baseline oxygen requirement at this time. RT and MD are inquiring about her ability to qualify for a Trilogy machine, which will reportedly help her breathing. She may have to undergo additional out patient testing before she qualifies. Palliative will likely visit with her tomorrow. CM will continue to follow. A: Deepthi is a 61 year old female admitted to [facility] on 03/27/22 for COPD exacerbation. P: Елена will likely be discharged home when medically cleared by MD, with a resumption of HH RN. She will follow up with her PCP and plan of care and transport with family. CM will assess and support identified discharge needs.
--- NOTE | 2022-03-29 15:21 | PHA.REVIEW2 ---
Pharmacy Admission Review - Admission Clinical Review (Last Reviewed 03/27/22 @ 16:46 by Ashish Meneses MD) COPD exacerbation (Acute) Acute and chronic respiratory failure (Acute) Hyponatremia (Acute) No Known Allergies Allergy (Verified 03/27/22 11:16) Resuscitation Status Full Code Height 5 ft Weight 78.4 kg - Renal Dosing Renal Dosing: BUN 24 mg/dL (7-18) H 03/29/22 06:10 Creatinine 1.0 mg/dL (0.55-1.02) 03/29/22 06:10 Medications needing adjustments: Reviewed List of meds needing interventions: eCrCl 53 ml/min, orders ok - Anticoagulation Anticoagulation: Hgb 11.6 g/dL (11.2-15.7) 03/27/22 11:25 Hct 40.1 % (36.0-46.0) 03/27/22 11:25 Plt Count 318 10^3/uL (130-400) 03/29/22 06:10 Creatinine 1.0 mg/dL (0.55-1.02) 03/29/22 06:10 DVT Prophylaxis: Reviewed Medications: Enoxaparin - Opiate Usage Evaluate Pain Scale/Pains Meds: N/A - Relevant Labs Sodium 128 mmol/L (136-145) L 03/29/22 06:10 Potassium 5.2 mmol/L (3.5-5.1) H 03/29/22 06:10 Chloride 89 mmol/L (98-107) L 03/29/22 06:10 Magnesium 1.7 mg/dL (1.8-2.4) L 03/28/22 05:23 Electrolytes, C-Reactive P, ESR: Reviewed (chronic hyponatremiamd aware/monitoring) - DM Control DM Control: Glucose 103 mg/dL (74-106) 03/29/22 06:10 DM Control: N/A - Cardiac Review Cardiac Review: Troponin I < 50 ng/L (<or=60) 03/27/22 14:17 NT-Pro-B Natriuret Pep 2642 pg/mL (<300) H 03/27/22 12:35 BP, HR, EF%: Reviewed List meds needing interventions: furosemide, metoprolol succ, lisinopril, spironolactone - Qtc Review QTc: Reviewed If Elevated, List meds needing intervention: 394 on admission - IV to PO Switch IV Medications: Reviewed - Home Meds Home Med List reviewed: Intervened Relevent Home Meds Not ordered & why?: made adjustments per external rx hx; not ordered: pregabalin, risperidone - Current meds Current Medication Order Review: Reviewed
[2022-03-29] MEDS: Enoxaparin 40 MG/0.4 ML SYR SC (15:50)
[2022-03-29] MEDS: LORazepam 0.5 MG TAB PO (19:57)
[2022-03-29] MEDS: Metoprolol CR 100 MG TABCR 200 MG PO (19:57)
[2022-03-29] MEDS: Zolpidem 5 MG TAB PO (21:36)
[2022-03-29] MEDS: Magnesium Oxide 400 MG TAB PO (21:36)
--- NOTE | 2022-03-29 23:46 | W.PM.PROGNOT ---
Date of Service Date of service: 03/29/22 Time of Service: 12:40 Assessment and Plan Assessment and plan (1) Hyponatremia: Status: Acute Assessment and plan: Chronic. 132 on admission; now 128 x 2 days. Monitor. (2) Pulmonary hypertension: Status: Chronic Assessment and plan: This is a factor in her chronic resp failure, along with COPD, OHS. (3) (HFpEF) heart failure with preserved ejection fraction: Status: Chronic Assessment and plan: Echocardiogram in January of this year showed an EF of 55-60%. Elevated BNP currently. Lasix 40mg IV BID; changed to home dosing of 80mg po BID. Cont spironolactone 50mg daily. Heart Healthy diet. (4) Acute and chronic respiratory failure: Status: Acute Assessment and plan: Has had recent sleep study and PFTs. Waiting for sleep study results to determine intervention. Will continue to f/u with Dr Marrero, pulmonary medicine. Significant CO2 retainer. BiPAP. Tolerating fairly well at times. VBG pCO2 now 69; down from 89 on presentation. pH now 7.39. (5) COPD exacerbation: Status: Acute Assessment and plan: Cont prednisone, nebs, Stiolto. (6) Hypertension: Status: Chronic Assessment and plan: Cont lisinopril and metoprolol. Monitor (7) Mood disorder with psychosis: Assessment and plan: Continue fluoxetine and daily prn lorazepam. (8) Discharge planning issues: Status: Resolved Assessment and plan: Likely home with home health nursing for monitoring. Subjective Subjective Patient reports: no new complaints, feels better, tolerating a regular diet, shortness of breath (with exertion; improved. ) and afebrile; denies nausea or vomiting Exam Narrative Exam Narrative: Pt sitting in chair. Conversant. Const General: cooperative and no acute distress Nutritional Appearance: obese Orientation: alert and oriented x3 Eyes General: appearance normal, both eyes and all related structures Sclera: sclerae normal Resp Effort & Inspection: normal respiratory effort Auscultation: diminished lung sounds, no rales and no wheezes Cardio Rate: regular rate Rhythm: regular rhythm Heart Sounds: S1 normal and S2 normal GI Palpation: soft and nontender Auscultation: normal bowel sounds Skin General skin exam: no rashes or lesions noted Extrem General: no pedal edema and no calf tenderness Psych Appearance: grossly normal Mental Status: mental status grossly normal Affect: normal affect Thought Process: normal (Occassionally tangential. ) Thought Content: normal Insight: fair Objective Last Vital Signs Temp 36.7 C 03/29/22 19:30 Pulse 79 03/29/22 19:30 Resp 19 03/29/22 19:30 BP 142/77 H 03/29/22 19:30 Pulse Ox 95 03/29/22 19:30 Laboratory Results - last 24 hr 03/29/22 03/29/22 06:10 06:10 Plt Count 318 Sodium 128 L Potassium 5.2 H Chloride 89 L Carbon Dioxide 41.3 H Anion Gap -2.3 L BUN 24 H Creatinine 1.0 Est GFR (CKD-EPI 2020) 63.30 Glucose 103 Calcium 9.4
[2022-03-30] VITALS (9 sets, daily range): BP systolic 103–142; BP diastolic 62–84; PULSE 72–84; RESP 4–24; TEMP 36.3–37.1; O2SAT 91–96
[2022-03-30] MEDS: Acetaminophen 325 MG TAB PO ×2 (04:01→11:38)
[2022-03-30] MEDS: Furosemide 80 MG TAB PO ×2 (05:53→11:39)
[2022-03-30] MEDS: Mometasone 220 MCG 14 DOSE INHALER 2 PUFF IH (07:45)
[2022-03-30] MEDS: Albuterol/Ipratropium 3 ML UPD VIAL UPD ×2 (07:45→14:45)
[2022-03-30] MEDS: Tiotropium/Olodaterol 10 PUFF INHALER 2 PUFF IH (07:45)
[2022-03-30] MEDS: Norethindrone 5 MG TAB 10 MG PO (07:57)
[2022-03-30] MEDS: Lisinopril 10 MG TAB PO (07:57)
[2022-03-30] MEDS: FLUoxetine 10 MG TAB PO (07:57)
[2022-03-30] MEDS: Multivitamin TAB 1 TAB PO (07:57)
[2022-03-30] MEDS: Spironolactone 50 MG TAB PO (07:57)
[2022-03-30] MEDS: predniSONE 20 MG TAB 40 MG PO (07:57)
[2022-03-30] MEDS: Ondansetron O.D.T. 4 MG TABEF PO (11:39)
--- NOTE | 2022-03-30 12:25 | DSE_ITS ---
Date of service: 03/30/22 Time of Service: 12:25 DS: Diagnosis Discharge Diagnosis (1) Hyponatremia: Status: Acute (2) Pulmonary hypertension: Status: Chronic (3) (HFpEF) heart failure with preserved ejection fraction: Status: Chronic (4) Acute and chronic respiratory failure: Status: Acute (5) COPD exacerbation: Status: Acute (6) Hypertension: Status: Chronic (7) Mood disorder with psychosis: (8) Discharge planning issues: Status: Resolved Discharge Plan Disposition Patient Disposition: HOME W/HOME HEALTH SERVICE Condition: Fair Discharge Details Reason For Visit: COPD Exacerbation Admit Date/Time: 03/27/22 13:51 Admit Provider: Ashish Meneses Attending Provider: Ashish Meneses Primary Care Provider: [facility] Course Hospital Course: This is a 61 yo female patient with a PMH of oxygen dependency COPD, chronic respiratory failure, cardiomyopathy, diastolic CHF, pulmonary HTN, and chronic hyponatremia.? She presented to the [facility] emergency department on 03/27/22 with the complaint of three days of increasing shortness of breath.? No CP, sputum, F/C. She endorsed recent sleep study.? Recent PFTs showed restrictive pattern thought to be at least in part d/t body habitus/obesity.? Echocardiogram on 02/06/22 showed an EF of 55-60%.?VBG pCO2 was 88.? WBC count normal. Na 132. NTProBNP 2642 CXR reading: probable chronic interstitial disease.? No obvious new acute pulmonary findings. She was administered Duonebs and IV methyprednisolone.? She was placed on BiPAP. She was admitted to the medical floor with exacerbation of COPD.? She was started on IV steroids, diuretic, nebulizers and Stiolto.? ?Her CO2 decreased as did her oxygen requirements.? She has no new complaints, feels better, tolerating a regular diet, shortness of breath (with exertion; improved) and afebrile; denies nausea or vomiting.? She feels at her baseline. She is norma ng discharged to home with resumption of Home Health Nursing services. Discussed with Dr Wu Home Meds and New Rx's Prescriptions: New magnesium oxide 400 mg (241.3 mg magnesium) Tablet 400 mg PO HS Qty: 0 0RF prednisone 20 mg Tablet 40 mg PO DAILY Qty: 6 0RF Continued multivitamin Tablet 1 tab DAILY Label Comments: take 1 tablet by mouth once daily norethindrone acetate 5 mg tablet 10 mg PO BID Qty: 240 5RF Stiolto Respimat 2.5-2.5 mcg/actuation Mist 2 puff INHALATION DAILY lorazepam 0.5 mg tablet 0.5 mg PO DAILY PRN PRN Label Comments: TAKE 1 TABLET BY MOUTH EVERY DAY NEEDED FOR PANIC nystatin [Nystop] 100,000 unit/gram powder 1 applic TOPICAL DIRECTED Label Comments: APPLY A SMALL AMOUNT TO AFFECTED AREA 2-3 TIMES A DAY UNTIL HEALED Rx Instructions: APPLY A SMALL AMOUNT TO SKIN 2-3 TIMES PER DAY UNTIL HEALED fluticasone propionate [Flovent HFA] 220 mcg/actuation HFA aerosol inhaler 1 puff INHALATION BID Label Comments: INHALE 1 PUFF BY MOUTH TWICE DAILY WITH STIOLTO ipratropium bromide 0.02 % Solution 0.25 mg UPD BID Qty: 60 0RF metoprolol succinate 100 mg Tablet Extended Release 24 Hr 200 mg PO HS Qty: 60 0RF fluoxetine 20 mg Capsule 10 mg PO DAILY lisinopril 20 mg tablet 0.5 tab DAILY Label Comments: TAKE ONE TABLET BY MOUTH EVERY DAY spironolactone 50 mg Tablet 50 mg PO 1XD furosemide 80 mg tablet 1 tab BID Label Comments: Take 1 tablet by mouth twice a day hog sawyer and noon ipratropium-albuterol 0.5 mg-3 mg(2.5 mg base)/3 mL solution for nebulization 3 ml INHALATION BID PRN Label Comments: Inhale 3 ml as directed twice a day as needed risperidone 0.25 mg tablet 1 tab PO HS Label Comments: Take 1 tablet by mouth at bedtime pregabalin 25 mg capsule 1 - 2 cap PO BID Label Comments: Take 1-2 capsule by mouth twice a day No Action levalbuterol tartrate 45 mcg/actuation Hfa Aerosol Inhaler 2 puff inhalation Q4H PRN PRNQty: 15 0RF levalbuterol HCl 1.25 mg/3 mL Solution For Nebulization 1.25 mg UPD BID Qty: 60 0RF acetaminophen 325 mg Tablet 650 mg PO PRN PRN Discharge Instructions Instructions: Magnesium Oxide (By mouth), Hypomagnesemia (DC), Chronic Lung Disease and Infection Prevention (DC) Additional Instructions: Continue home medications. Take prednisone 40 mg for three days. Use your oxygen and inhalers. Your magnesium is a little low; take 400 mg daily until you are seen by your PCP for further instruction. Stand Alone Forms: Nursing Discharge Form Referrals: Hardy Eagle [Primary Care Provider] - 04/05/22 10:10 am (follow up in 1-2 weeks) Activity:: Activity as Tolerated Equipment/Supplies:: Oxygen (L/min Below) Diet:: As Tolerated Discharge Orders Discharge Orders: Discharge Order (Routine); Ordered 03/30/22 Ordered By: Sonam Mccoy Discharge Data Discharge Date/Time-TO BE ENTERED AT DEPARTURE: 03/30/22 15:20 DS: Summary Time Spent with Patient providing and/or coordinating discharge services: Less than 30 minutes Status at Discharge Functional status at discharge: uses cane/walker Overall status at discharge: patient is back to baseline Mental Status: mental status grossly normal Speech and Movement: speech and movement normal Mood: congruent mood Affect: normal affect Exam Narrative Exam Narrative: Pt sitting on the bed. Conversant. Const General: cooperative and no acute distress Nutritional Appearance: obese Orientation: alert and oriented x3 Eyes General: appearance normal, both eyes and all related structures Sclera: sclerae normal Resp Effort & Inspection: normal respiratory effort Auscultation: diminished lung sounds, no rales and no wheezes Cardio Rate: regular rate Rhythm: regular rhythm Heart Sounds: S1 normal and S2 normal GI Palpation: soft and nontender Auscultation: normal bowel sounds Skin General skin exam: no rashes or lesions noted Extrem General: no pedal edema and no calf tenderness Psych Appearance: grossly normal Mental Status: mental status grossly normal Speech and Movement: speech and movement normal Mood: congruent mood Affect: normal affect Thought Process: normal (Occassionally tangential. ) Thought Content: normal Insight: fair DS: Data Vitals/I&O Vitals and I&O: Vital Signs Temperature 36.9 C 03/30/22 11:36 Temperature Source Tympanic 03/30/22 11:36 Pulse 78 03/30/22 11:36 Pulse Rhythm Regular 03/30/22 10:02 Pulse 80 03/28/22 08:00 Respiratory Rate 24 03/30/22 11:36 Respiratory Effort Non-Labored 03/30/22 10:02 Respiratory Depth Normal 03/30/22 10:02 Respiratory Pattern Normal 03/30/22 10:02 Blood Pressure 142/84 H 03/30/22 11:36 Blood Pressure Mean 90 03/28/22 12:04 Blood Pressure Position Sitting 03/28/22 08:15 Pulse Oximetry 93 03/30/22 11:36 Oxygen Delivery Method Nasal Cannula 03/30/22 11:36 Oxygen Flow Rate 2 03/30/22 11:36 Fraction of Inspired Oxygen (FIO2) 35 03/30/22 07:48 Pain Level 3 03/30/22 11:38 Comment 03/30/22 03:33 Intake & Output 03/29/22 03/30/22 03/30/22 23:59 11:59 23:59 Intake Total 720 / 1220 Output Total 1500 / 2400 1550 / 1550 Balance -780 / -1180 -1550 / -1550 Weight 77.5 kg Intake: Oral 720 / 1220 Output: Urine 1500 / 2400 1550 / 1550 Other: Urine Color Yellow Yellow Urine Appearance Clear Clear Urine Odor None Voiding Methods Toilet PFSH All Active Problems (Updated 03/31/22 @ 00:06 by AUGUSTA RODGERS) COPD exacerbation (Acute) Acute and chronic respiratory failure (Acute) Vaginal bleeding (Acute) Palliative care patient (Acute) Hyponatremia (Acute) Pulmonary hypertension (Chronic) Hypoxia (Chronic) (HFpEF) heart failure with preserved ejection fraction (Chronic) Anxiety (Chronic) Dyspnea (Acute) Acute anemia (Acute) Postmenopausal bleeding (Acute) Dyspnea on exertion (Acute) S/P left inguinal hernia repair (Acute) 01/21/19 Dr Odette Cormier, left Left inguinal hernia (Acute) Incarcerated inguinal hernia, unilateral (Acute) Small bowel obstruction (Acute) Dehydration (Acute) Hypertension (Chronic) Change in mental status (Acute) Cardiomyopathy (Acute) Iron deficiency anemia due to chronic blood loss (Chronic) Chronic bronchitis with COPD (chronic obstructive pulmonary disease) (Acute) Alcohol abuse (Acute) COPD (chronic obstructive pulmonary disease) (Chronic) Medical History Alcoholic gastritis Former smoker Hyponatremia Mood disorder with psychosis Neck pain on right side Pneumonia Post-menopausal bleeding Pulmonary hypertension Respiratory failure with hypoxia Surgical History EGD - MAC (07/04/16) Social History Smoking/Tobacco Use Status: Former Tobacco Use Quit Date: 01/13/15 Smoking risk assessment performed?: Yes Alcohol Intake: former Drug use: Never Substance use type: does not use Do you feel safe at home: Yes Do you feel safe in your relationship?: Yes
--- NOTE | 2022-03-30 14:13 | PCNE_ITS ---
Date of service: 03/30/22 Time of Service: 13:15 History of Present Illness Narrative: Елена is a 61 y.o. female who is currently hospitalized for acute on chronic respiratory failure, COPD exacerbation. Palliative was consulted to discuss goals of care and CODE STATUS. Елена is clear that she is a FULL CODE. Discussed in detail and she maintains that she wants to be a full code. She feels that her breathing is better than when she arrived in the ED, however, she is SOB at baseline. Discussed liquid MS, she has never tried MS for SOB. She reports that she has AD filled out at home, we do not have them on file, we will need to obtain a copy. Her daughter, Evonne, sets up her medications for her and makes dinner for her a few days per week. Her cooks the rest of the time. She has HH. She is able to do her own bathing. She uses her walker to get around the house. Assessment and Plan Assessment and plan (1) COPD exacerbation: Status: Acute (2) Acute and chronic respiratory failure: Status: Acute (3) Pulmonary hypertension: Status: Chronic (4) Hypoxia: Status: Chronic (5) (HFpEF) heart failure with preserved ejection fraction: Status: Chronic (6) Anxiety: Status: Chronic (7) Dyspnea: Status: Acute (8) Uterine mass: Status: Acute (9) Palliative care patient: Status: Acute Assessment and plan: Елена is a 61 yo female who is currently hospitalized for acute on chronic respiratory failure, COPD exacerbation. She also has hx of pulmonary HTN, cardiomyopathy, HFpEF, anxiety, uterine mass (not a candidate for surgery at [facility]), hx of etoh abuse. Palliative was consulted to discuss goals of care and CODE STATUS. She feels her breathing has improved. She has SOB at baseline. Discussed morphine oral concentrate for SOB, she has never tried MS. She has HH services. Her daughter, Evonne, sets up her meds and makes dinner for her a few times per week. Her is very helpful at home. She is clear that she wants to remain a FULL CODE. She reports that she has completed AD but we do not have it on file. Will need to get a copy of AD. She was initially reluctant to follow up with palliative care, however, she agreed to a home visit at the end of the visit. Review of Systems All systems reviewed & are unremarkable except as noted in HPI and below PFSH All Active Problems (Updated 03/30/22 @ 15:17 by Rubi Javier NP) Palliative care patient (Acute) COPD exacerbation (Acute) Acute and chronic respiratory failure (Acute) Vaginal bleeding (Acute) Palliative care patient (Acute) Hyponatremia (Acute) Pulmonary hypertension (Chronic) Hypoxia (Chronic) (HFpEF) heart failure with preserved ejection fraction (Chronic) Anxiety (Chronic) Dyspnea (Acute) Uterine mass (Acute) Not candidate for surgery at [facility] or [facility].08/10/21. Had partial uterine artery embolization. Unable to complete 2/2 hypoxia. Acute anemia (Acute) Postmenopausal bleeding (Acute) Dyspnea on exertion (Acute) S/P left inguinal hernia repair (Acute) 01/21/19 Dr Odette Cormier, left Left inguinal hernia (Acute) Incarcerated inguinal hernia, unilateral (Acute) Small bowel obstruction (Acute) Dehydration (Acute) Hypertension (Chronic) Change in mental status (Acute) Cardiomyopathy (Acute) Iron deficiency anemia due to chronic blood loss (Chronic) Chronic bronchitis with COPD (chronic obstructive pulmonary disease) (Acute) Alcohol abuse (Acute) COPD (chronic obstructive pulmonary disease) (Chronic) Medical History Alcoholic gastritis Former smoker Hyponatremia Mood disorder with psychosis Neck pain on right side Pneumonia Post-menopausal bleeding Pulmonary hypertension Respiratory failure with hypoxia Surgical History EGD - MAC (07/04/16) Social History Smoking/Tobacco Use Status: Former Tobacco Use Quit Date: 01/13/15 Smoking risk assessment performed?: Yes Alcohol Intake: former Drug use: Never Substance use type: does not use Do you feel safe at home: Yes Do you feel safe in your relationship?: Yes Exam Narrative Exam Narrative: General: very pleasant, middle aged female, laying in hospital bed with HOB elevated. She is awake and alert, talkative. HEENT: normocephalic, atraumatic, EOMI, mmm. Neck: supple. Respiratory: wearing O2 via nc, appears SOB at times while talking. Extremities: moves all 4 extremities freely. Results Last Vital Signs Temp 36.9 C 03/30/22 11:36 Pulse 78 03/30/22 11:36 Resp 24 03/30/22 11:36 BP 142/84 H 03/30/22 11:36 Pulse Ox 93 03/30/22 11:36 Labs Result diagrams: 03/29/22 06:10 03/29/22 06:10
--- NOTE | 2022-03-30 15:52 | PDOC.CMDIS ---
- If Service Date Differs Date of service: 03/30/22 Time of Service: 15:52 LACE Index Scoring Tool - Questions: Length of Stay (in days): 3 Acuity (Admit via E.D.?): Yes Comorbidities: Congestive Heart Failure, Chronic Pulmonary Disease E.D. Visits: 8 - Answers: Total Score: 15 Risk of Readmission: High Risk Care Management Discharge Reason for Hospitalization: COPD exacerbation Discharge Plan: Deepthi returned home today with a resumption of HH RN. Her daughter drove her home via private vehicle. She will follow up with her PCP and discharge plan of care. She is happy to be going home. Patient/Family Education Needs: Review discharge instructions and limitations, discussion of self care needs including ask me three. Services Needed at Discharge: Home Health Care Services (resume HH RN)
== END 2022-03-30 15:20 | disposition home health service (06) | DRG 640 ==
LOC: ER 14:05 → ICU 15:07 → MS 03-28 15:31
PROVIDERS: Admitting Provider Family Medicine; Emergency Provider Student in an Organized Health Care Education/Training Program; PCP Family Medicine; Visit Provider Family Medicine
DX: E87.1 Hypo-osmolality and hyponatremia (principal); J96.21 Acute and chronic respiratory failure with hypoxia; J44.1 Chronic obstructive pulmonary disease with (acute) exacerbation; I50.32 Chronic diastolic (congestive) heart failure; E66.2 Morbid (severe) obesity with alveolar hypoventilation; I42.9 Cardiomyopathy, unspecified; I27.20 Pulmonary hypertension, unspecified; Z68.33 Body mass index [BMI] 33.0-33.9, adult; I10 Essential (primary) hypertension; F39 Unspecified mood [affective] disorder; F28 Other psychotic disorder not due to a substance or known physiological condition; F41.9 Anxiety disorder, unspecified; N85.8 Other specified noninflammatory disorders of uterus; N95.0 Postmenopausal bleeding; D50.0 Iron deficiency anemia secondary to blood loss (chronic); F10.10 Alcohol abuse, uncomplicated; Z87.891 Personal history of nicotine dependence
CPT/HCPCS: 36415; 80048; 80053; 82805; 87637; 93005; 94640; 96374; 96375; 99291; J1650; 71045; 83735; 83880; 84484; 85025; 85049; 85379; 93010; 94660; 99223; 99232; 99238; J1940; J2930; J7512; J7614; J7620

== ENCOUNTER 2022-04-05 12:11 | Outpatient (REF) | payer MEDICARE, SELFPAY ==
[2022-04-05 16:31] LABS: Anion Gap 0.2 mmol/L (3-11); BUN 18 mg/dL (7-18); CO2 39.8 mmol/L (21.0-32.0); CREATININE 0.9 mg/dL (0.55-1.02); Calcium 9.1 mg/dL (8.5-10.1); Chloride 93 mmol/L (98-107); Estimated GFR 71.83 (mL/min/1.73m2); Glucose 106 mg/dL (74-106); Potassium 3.9 mmol/L (3.5-5.1); Sodium 133 mmol/L (136-145)
== END 2022-04-05 12:12 | disposition home or self-care (01) ==
LOC: NCHCN 12:11
PROVIDERS: PCP Family Medicine; Visit Provider Family Medicine
DX: E87.5 Hyperkalemia (principal)
CPT/HCPCS: 80048

== ENCOUNTER 2022-05-10 06:36 | Inpatient (IN) | payer MEDICARE, SELFPAY ==
[2022-05-10] VITALS (178 sets, daily range): BP systolic 59–160; BP diastolic 35–123; PULSE 71–205; RESP 4–43; TEMP 36.6–37.3; O2SAT 84–100
--- NOTE | 2022-05-10 06:30 | RT.EKG_ITS ---
APPROVED REPORT Exam: Resting ECG Reason for Exam: sob Patient Location: E HR:106 bpm ECG Measurements Heart Rate 106 AXIS RI 175 P 54 QRSd 92 QRS -38 QT 310 T -9 QTc 413 Conclusion Sinus tachycardia...rate> 99 Left axis deviation...QRS axis (-30,-90) Nonspecific T abnormalities, anterior leads...T <-0.10mV, V2-V4
[2022-05-10] MEDS: Albuterol/Ipratropium 3 ML UPD VIAL 9 ML UPD (06:56)
[2022-05-10] MEDS: methylPREDNISolone SUCC 125 MG VIAL IVP (06:56)
[2022-05-10 06:59] LABS: O2 Sat (Venous) 63 %; pH (Venous) 7.22 (7.31-7.41); pO2 (Venous) 40 mmHg
[2022-05-10 07:03] LABS: Abs Immature Grans 0.22 10^3/uL (0.0-0.06); Absolute Basophil Count 0.05 10^3/uL (0.0-0.2); Absolute Lymphocyte Count 0.45 10^3/uL (1.2-3.4); Absolute Monocyte Count 0.81 10^3/uL (0.1-0.8); Basophils % 0.4; HCT 39.7 % (36.0-46.0); Immature Grans % 1.9; Lymphocytes % 3.8; MCH 25.6 pg (27.0-33.0); MCHC 27.7 % (32.0-36.0); MCV 92 fL (80-95); MPV 9.7 fL (8.0-11.0); Monocytes % 6.9; Nucleated RBC 0.6 % (0.0-0.3); Platelet Count 258 10^3/uL (130-400); RDW 17.8 % (11.7-14.6); RDW-SD 57.2 fL; WBC 11.73 10^3/uL (4.4-10.8)
[2022-05-10 07:04] LABS: pCO2 (Venous) > 100 mmHg (41-51)
--- NOTE | 2022-05-10 07:04 | W.ED.GENAD ---
Discharge Plan Disposition Patient Disposition: [facility] INPATIENT Condition: Serious Discharge Details Clinical Impression: COPD (chronic obstructive pulmonary disease), Altered mental status, Hypercarbia, Acidemia Primary Care Provider: [facility] ED Provider: Ashish Kurtz Home Meds and New Rx's Prescriptions: No Action multivitamin Tablet 1 tab DAILY Label Comments: take 1 tablet by mouth once daily norethindrone acetate 5 mg tablet 10 mg PO BID Qty: 240 5RF Stiolto Respimat 2.5-2.5 mcg/actuation Mist 2 puff INHALATION DAILY lorazepam 0.5 mg tablet 0.5 mg PO DAILY PRN PRN Label Comments: TAKE 1 TABLET BY MOUTH EVERY DAY NEEDED FOR PANIC nystatin [Nystop] 100,000 unit/gram powder 1 applic TOPICAL DIRECTED Label Comments: APPLY A SMALL AMOUNT TO AFFECTED AREA 2-3 TIMES A DAY UNTIL HEALED Rx Instructions: APPLY A SMALL AMOUNT TO SKIN 2-3 TIMES PER DAY UNTIL HEALED fluticasone propionate [Flovent HFA] 220 mcg/actuation HFA aerosol inhaler 1 puff INHALATION BID Label Comments: INHALE 1 PUFF BY MOUTH TWICE DAILY WITH STIOLTO ipratropium bromide 0.02 % Solution 0.25 mg UPD BID Qty: 60 0RF levalbuterol tartrate 45 mcg/actuation Hfa Aerosol Inhaler 2 puff inhalation Q4H PRN PRNQty: 15 0RF levalbuterol HCl 1.25 mg/3 mL Solution For Nebulization 1.25 mg UPD BID Qty: 60 0RF metoprolol succinate 100 mg Tablet Extended Release 24 Hr 200 mg PO HS Qty: 60 0RF fluoxetine 20 mg Capsule 10 mg PO DAILY acetaminophen 325 mg Tablet 650 mg PO PRN PRN lisinopril 20 mg tablet 0.5 tab DAILY Label Comments: TAKE ONE TABLET BY MOUTH EVERY DAY spironolactone 50 mg Tablet 50 mg PO 1XD furosemide 80 mg tablet 1 tab BID Label Comments: Take 1 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 ipratropium-albuterol 0.5 mg-3 mg(2.5 mg base)/3 mL solution for nebulization 3 ml INHALATION BID PRN Label Comments: Inhale 3 ml as directed twice a day as needed risperidone 0.25 mg tablet 1 tab PO HS Label Comments: Take 1 tablet by mouth at bedtime pregabalin 25 mg capsule 1 - 2 cap PO BID Label Comments: Take 1-2 capsule by mouth twice a day magnesium oxide 400 mg (241.3 mg magnesium) Tablet 400 mg PO HS Qty: 0 0RF prednisone 20 mg Tablet 40 mg PO DAILY Qty: 6 0RF Medical Decision Making 61-year-old female history of COPD, CHF, alcohol use, presents with altered mental status and hypoxia hypoxia to 70s on room air in the field, responding to loud verbal stimuli and painful stimuli, groaning verbal response, opening eyes to pain and sound, following basic commands, GCS approximately 10 on arrival, placed on nasal cannula, started on nebs and steroids concern for CO2 narcosis in the setting of COPD versus postictal state, patient does have bilateral tongue abrasion, no external signs of trauma, minimal edema to bilateral ankles, tachycardia and relative hypotension. Must consider COPD exacerbation with CO2 narcosis versus seizure versus intoxication; initially patient too somnolent to tolerate BiPAP did have some dry heaving as well, mental status improving after nasal cannula and nebs we will reconsider starting on BiPAP versus intubation for progression of altered mental status. Labs and imaging admission likely 7: 35 given persistent altered mental status severe acidemia and hypercarbia, patient intubated for airway protection and to improve ventilation. Patient be admitted to ICU. Placed on propofol drip for sedation. X-ray at bedside. HPI General Date/Time Provider Initiated Documentation: 05/10/22 06:47. HPI Narrative: 61-year-old female history of COPD CHF alcohol abuse, presents with altered mental status and hypoxia hypoxic in the 70s in the field per EMS, some improvement on nasal cannula, altered mental status noted by her overnight, poorly arousable per EMS, fingerstick normal in the field Related Data Home Medications Medication Instructions Recorded Confirmed fluoxetine 20 mg capsule 10 mg PO DAILY 01/14/19 03/27/22 acetaminophen 325 mg tablet 650 mg PO PRN PRN 01/21/19 03/27/22 multivitamin 1 tab DAILY 11/17/19 03/27/22 tiotropium 2.5 mcg-olodaterol 2.5 2 puff inhalation DAILY 09/15/20 03/27/22 mcg/actuation mist for inhalation (Stiolto Respimat) fluticasone propionate 220 1 puff inhalation BID 07/26/21 03/27/22 mcg/actuation HFA aerosol inhaler (Flovent HFA) lorazepam 0.5 mg tablet 0.5 mg PO DAILY PRN PRN 07/26/21 03/27/22 nystatin 100,000 unit/gram topical 1 applic topical DIRECTED 07/26/21 03/27/22 powder (Nystop) ipratropium bromide 0.02 % 0.25 mg (1.25 mL) UPD BID #60 mL 07/29/21 03/27/22 solution for inhalation levalbuterol HCl 1.25 mg/3 mL 1.25 mg (3 mL) UPD BID #60 mL 07/29/21 03/27/22 solution for nebulization levalbuterol tartrate 45 2 puff inhalation Q4H PRN PRN #15 07/29/21 03/27/22 mcg/actuation aerosol inhaler grams metoprolol succinate 100 mg 200 mg PO HS #60 tabs 07/29/21 03/27/22 tablet,extended release 24 hr norethindrone acetate 5 mg tablet 10 mg PO BID #240 tabs 11/14/21 03/27/22 lisinopril 20 mg tablet 0.5 tab DAILY 12/30/21 03/27/22 spironolactone 50 mg tablet 50 mg PO 1XD 12/30/21 03/27/22 furosemide 80 mg tablet 1 tab BID 03/27/22 03/27/22 ipratropium 0.5 mg-albuterol 3 mg 3 ml inhalation BID PRN 03/29/22 03/29/22 (2.5 mg base)/3 mL nebulization soln pregabalin 25 mg capsule 1 - 2 cap PO BID 03/29/22 03/29/22 risperidone 0.25 mg tablet 1 tab PO HS 03/29/22 03/29/22 magnesium oxide 400 mg (241.3 mg 400 mg PO HS #0 tabs 03/30/22 magnesium) tablet prednisone 20 mg tablet 40 mg PO DAILY #6 tabs 03/30/22 Previous Rx's Medication Instructions Recorded ipratropium bromide 0.02 % 0.25 mg (1.25 mL) UPD BID #60 mL 07/29/21 solution for inhalation levalbuterol HCl 1.25 mg/3 mL 1.25 mg (3 mL) UPD BID #60 mL 07/29/21 solution for nebulization levalbuterol tartrate 45 2 puff inhalation Q4H PRN PRN #15 07/29/21 mcg/actuation aerosol inhaler grams metoprolol succinate 100 mg 200 mg PO HS #60 tabs 07/29/21 tablet,extended release 24 hr norethindrone acetate 5 mg tablet 10 mg PO BID #240 tabs 11/14/21 magnesium oxide 400 mg (241.3 mg 400 mg PO HS #0 tabs 03/30/22 magnesium) tablet prednisone 20 mg tablet 40 mg PO DAILY #6 tabs 03/30/22 Allergies Allergy/AdvReac Type Severity Reaction Status Date / Time No Known Allergies Allergy Verified 03/27/22 11:16 General Stated Complaint: SOB MAYA: 1 Review of Systems Narrative: Review of Systems Constitutional: AMS Eyes: negative ENT: negative Cardiovascular: negative Respiratory: Hypoxia Gastrointestinal: negative : negative Musculoskeletal: negative Skin: negative Neurologic: negative Psych: negative PFSH All Active Problems (Updated 05/10/22 @ 07:37 by Ashish Kurtz MD) Altered mental status (Acute) Hypercarbia (Acute) Acidemia (Acute) SOB (shortness of breath) (Acute) Hypercarbia (Acute) COPD exacerbation (Acute) Acute and chronic respiratory failure (Acute) Vaginal bleeding (Acute) Hyponatremia (Acute) Pulmonary hypertension (Chronic) Hypoxia (Chronic) (HFpEF) heart failure with preserved ejection fraction (Chronic) Anxiety (Chronic) Dyspnea (Acute) Acute anemia (Acute) Postmenopausal bleeding (Acute) Dyspnea on exertion (Acute) S/P left inguinal hernia repair (Acute) 01/21/19 Dr Odette Cormier, left Left inguinal hernia (Acute) Incarcerated inguinal hernia, unilateral (Acute) Small bowel obstruction (Acute) Dehydration (Acute) Hypertension (Chronic) Change in mental status (Acute) Cardiomyopathy (Acute) Iron deficiency anemia due to chronic blood loss (Chronic) Chronic bronchitis with COPD (chronic obstructive pulmonary disease) (Acute) Alcohol abuse (Acute) COPD (chronic obstructive pulmonary disease) (Chronic) Medical History (Updated 05/10/22 @ 07:37 by Ashish Kurtz MD) Alcoholic gastritis Former smoker Hyponatremia Mood disorder with psychosis Neck pain on right side Palliative care patient Pneumonia Post-menopausal bleeding Pulmonary hypertension Respiratory failure with hypoxia Uterine mass Not candidate for surgery at [facility] [place] [facility] [place] Had partial uterine artery embolization. Unable to complete 2/2 hypoxia. Surgical History EGD - MAC (07/04/16) Social History Smoking/Tobacco Use Status: Former Tobacco Use Quit Date: 01/13/15 Smoking risk assessment performed?: Yes Alcohol Intake: former Drug use: Never Substance use type: does not use Do you feel safe at home: Yes Do you feel safe in your relationship?: Yes Exam Narrative Exam Narrative: Physical Examination General: Somnolent HEENT: normocephalic, atraumatic; PERRL, EOM intact, conjunctiva normal; no nasal discharge; moist mucous membranes, oral and pharyngeal mucosa normal, tolerating secretions Neck: supple, trachea midline; full ROM Chest: normal to inspection Respiratory: Shallow rapid respirations, clear lungs bilaterally Cardiac: Tachycardia, regular rhythm, S1S2 intact, no murmurs rubs or gallops GI: abdomen soft, non-tender, non-distended; no palpable mass or hepatosplenomegaly Skin: no lesions, rashes or trauma appreciated Neuro: Somnolent, arousable to loud verbal stimulation and painful stimulus, following basic commands; will open eyes to command, will move extremities to command, moaning verbal response Extremities: Minimal edema to bilateral ankles Course Vital Signs Vital signs: Vital Signs Temperature 36.6 C 05/10/22 06:46 Pulse 104 H 05/10/22 06:46 Respiratory Rate 31 H 05/10/22 06:46 Blood Pressure 101/78 05/10/22 06:46 Pulse Oximetry 87 L 05/10/22 06:46 Temperature 36.6 C 05/10/22 06:46 Temperature Source Temporal Artery Scan 05/10/22 06:46 Pulse 104 H 05/10/22 06:46 Respiratory Rate 31 H 05/10/22 06:46 Blood Pressure 101/78 05/10/22 06:46 Blood Pressure Position Sitting 05/10/22 06:46 Pulse Oximetry 87 L 05/10/22 06:46 Lab/Test Results Lab/Test Results: Laboratory Tests Range/Units 05/10/22 06:52 VBG pH (7.31-7.41) 7.22 L VBG pCO2 (41-51) mmHg > 100 H* VBG pO2 mmHg 40 VBG HCO3 (23-28) mmol/L VBG Total CO2 (24-29) mmol/L VBG O2 Saturation % 63 VBG Base Excess (-2-3) mmol/L Procedures Intubation Time out performed: Yes sedative: Etomidate Mg Given: 20 paralytic: Succinylcholine Mg Given: 100 Laryngoscope: other (glide scope) ET Tube Size: 7.5 ET Tube Uncuffed: No Tube Secured Depth (cm): 22 Tube Secured Location: lips Tube Placement Confirmation: visualized tube passing through cords, equal breath sounds bilaterally, no breath sounds over epigastrum and confirmation by capnometry Patient Tolerated Procedure: well Intubation Complications: none
[2022-05-10] MEDS: Ondansetron 4 MG/2 ML VIAL IVP (07:07)
[2022-05-10] MEDS: Normal Saline 500 ML 1000 ML IV ×2 (07:07→11:18)
[2022-05-10 07:14] LABS: Absolute Neutrophil Count 10.21 10^3/uL (1.2-6.7)
[2022-05-10 07:15] LABS: Basophilic Stippling Present; Hypochromasia 1+; Polychromasia Present
--- NOTE | 2022-05-10 07:15 | DI.RAD_ITS ---
Exam(s) XR PORTABLE CHEST AP EXAM: XR PORTABLE CHEST AP CLINICAL HISTORY: post intubation TECHNIQUE: COMPARISON: CR XR PORTABLE CHEST AP from 03/27/2022 FINDINGS: Portable AP chest at 0733 hours. There is a poor inspiration. Prominence of pulmonary markings note d which may be due in part to the poor inspiration. Scattered infiltrates not excluded, appropriate follow-up studies suggested. There is an ET tube in place which lies 4-5 cm above the misti. IMPRESSION: RADIATION DOSE DELIVERED: Total DLP
[2022-05-10 07:16] LABS: Prothrombin Time 9.7 sec (9.3-11.0)
[2022-05-10] MEDS: Etomidate 20 MG/10 ML VIAL 50 MG IVP (07:20)
[2022-05-10] MEDS: Succinylcholine 100 MG/5 ML SYR IVP (07:21)
[2022-05-10 07:29] LABS: ALT 23 U/L (14-59); AST 26 U/L (15-37); Albumin 3.6 g/dL (3.4-5.0); Alkaline Phosphatase 69 U/L (46-116); BUN 39 mg/dL (7-18); Bilirubin, Total 0.3 mg/dL (0.2-1.0); CREATININE 1.4 mg/dL (0.55-1.02); Calcium 9.3 mg/dL (8.5-10.1); Chloride 93 mmol/L (98-107); Estimated GFR 42.27 (mL/min/1.73m2); Glucose 153 mg/dL (74-106); NT-proBNP 17616 pg/mL (<300); Potassium 5.9 mmol/L (3.5-5.1); Sodium 135 mmol/L (136-145)
[2022-05-10] MEDS: PROPOFOL 1,000 MG/100 ML BTL 2.6 MG IV (07:30)
[2022-05-10 07:31] LABS: Anion Gap -3.00001 mmol/L (3-11); CO2 > 45.0 mmol/L (21.0-32.0); ETHANOL BLOOD < 3.0 mg/dL (<10)
[2022-05-10 07:32] LABS: Troponin I 62 ng/L (<or=60)
[2022-05-10] MEDS: Propofol 200 MG/20 ML VIAL (07:36)
[2022-05-10] MEDS: fentaNYL 100 MCG/2 ML VIAL IVP (07:44)
[2022-05-10] MEDS: Rocuronium 50 MG/5 ML SYR IVP (08:00)
--- NOTE | 2022-05-10 08:00 | DI.RAD_ITS ---
Exam(s) XR PORTABLE CHEST AP POST LINE EXAM: XR PORTABLE CHEST AP POST LINE CLINICAL HISTORY: post central line TECHNIQUE: COMPARISON: CR XR PORTABLE CHEST AP from 05/10/2022 FINDINGS: Portable supine chest at 0820 hours. Endotracheal tube again noted in good position. Right central venous line via apparent IJ root lies with its tip in superior vena cava. Mild diffuse bilateral pulmonary interstitial patchy infiltrates noted, appropriate follow-up films r equested. IMPRESSION: RADIATION DOSE DELIVERED: Total DLP
[2022-05-10] MEDS: fentaNYL 100 MCG/2 ML VIAL (08:02)
[2022-05-10] MEDS: CALCIUM GLUCONATE in NaCl 1 GM/50 ML BAG IVPB (08:08)
[2022-05-10] MEDS: Dextrose 50%-Water 25 GM/50 ML SYR IVP (08:08)
[2022-05-10] MEDS: Insulin REGULAR-Human 100 UNITS/ML UNIT 6 UNITS IV (08:09)
[2022-05-10 08:48] LABS: HCO3 41 mmol/L (22-26); pH 7.38 (7.35-7.45); pO2 71 mmHg (80-105); sO2 95 % (95-98); tCO2 38 mmol/L (23-27)
[2022-05-10 08:52] LABS: BE > 15 mmol/L (-2-3); FIO2 50 %; Site Right Brachial
[2022-05-10 08:53] LABS: pCO2 68 mmHg (35-45)
[2022-05-10] MEDS: fentaNYL 1,000 MCG in Normal Saline 80 ML 8.8 MCG IV (09:36)
[2022-05-10 10:05] LABS: Bilirubin Negative (Negative); Blood Trace-intact (Negative); Clarity Clear (Clear); Glucose 250 mg/dL (Negative); Ketones Negative (Negative); Leukocyte Esterase Negative (Negative); Nitrite Negative (Negative); Urobilinogen 0.2 EU/dL (Up TO 0.2); pH 7.5 (5-8)
[2022-05-10 10:11] LABS: Bacteria Few HPF (Negative); C & S Indicated? No; Casts Negative LPF (Negative); Crystals Negative HPF (Negative); Epithelial Cells Few HPF (Negative); Mucus Trace (Negative); Other Cells Rare Renal (Negative); WBC Negative HPF (0-5)
[2022-05-10 10:20] LABS: Troponin I 112 ng/L (<or=60)
[2022-05-10 10:22] LABS: *AMPHETAMINES SCREEN URINE Negative (Negative); *BARBITURATES SCREEN URINE Negative (Negative); *BENZODIAZEPINES SCREEN URINE Negative (Negative); Cannabinoids THC Negative (Negative); Cocaine Screen,Urine Negative (Negative); METHADONE URINE SCREEN Negative (Negative); OPIATES URINE SCREEN Negative (Negative); Tricyclic Antidepressants Negative (Negative)
[2022-05-10 10:35] LABS: COVID-19 PCR Negative (Negative); Influenza A PCR Negative (Negative); Influenza B PCR Negative (Negative); RSV PCR Negative (Negative)
[2022-05-10 10:42] LABS: Source Nasopharynx
--- NOTE | 2022-05-10 10:52 | DI.CT_ITS ---
Exam(s) CT HEAD WO EXAM: CT HEAD WO CLINICAL HISTORY: ams. TECHNIQUE: Imaging Protocol: Axial computed tomography images with coronal and sagittal reformatted images were created and reviewed COMPARISON: CT HEAD WITHOUT CONTRAST from 07/08/2016 FINDINGS: ET and NG tubes noted in the oral cavity. There is mild generalized cerebral atrophy . No evidence of acute intracranial hemorrhage, mass effect, or midline shift. The orbital structures are unremarkable. The temporal bone structures appear intact. Calvarium: Normal. Visualized Paranasal sinuses/Mastoids: Clear. IMPRESSION: No evidence of acute intracranial process. RADIATION DOSE DELIVERED: 765.99mGy.cm Total DLP 765.99mGy.cm Total DLP !Error CTDIvol DATA REPOSITORY: All CT scans at this facility are submitted to the National Radiology Data Registry (NRDR) Dose Index Registry (DIR) with the [employer] ([employer]). RADIATION OPTIMIZATION: All CT scans at this facility use at least one of these dose optimization te chniques: automated exposure control; mA and/or kV adjustment per patient size (includes targeted exa ms where dose is matched to clinical indication); or iterative reconstruction.
[2022-05-10] MEDS: PROPOFOL 1,000 MG/100 ML BTL 31.7 MG (11:03)
[2022-05-10] MEDS: PROPOFOL 1,000 MG/100 ML BTL 31.7 MG IV (11:42)
[2022-05-10] MEDS: Albuterol/Ipratropium 3 ML UPD VIAL (12:09)
[2022-05-10 12:27] LABS: HCO3 (Venous) 43 mmol/L (23-28); O2 Sat (Venous) 67 %; TCO2 (Venous) 40 mmol/L (24-29); pH (Venous) 7.41 (7.31-7.41); pO2 (Venous) 35 mmHg
[2022-05-10 12:29] LABS: BE (Venous) > 15 mmol/L (-2-3)
[2022-05-10 12:30] LABS: pCO2 (Venous) 68 mmHg (41-51)
--- NOTE | 2022-05-10 12:41 | HPE_ITS ---
Date of service: 05/10/22 Time of Service: 12:42 Assessment and Plan Assessment and plan (1) Acute and chronic respiratory failure: Status: Acute Assessment and plan: continue supportive care w/ mechanical ventilator, monitor VBG/ETCO2/SPO2; can lighten sedation now to keep at RASS -1; consider switch to precedex; check sputum, procalcitonin, urine antigens for infectious cause but suspect this is acute exacerbation of her chronic COPD and probably ISAURA as well. P.E. has not been ruled out but would not explain her hypercarbia. Will check d-dimer and echo. if d-dimer is negative then no need for CTA but if elevated or if signs of RV strain or failure then will proceed w/ CTA. Critical care time spent interviewing and examining the patient, reviewing studies, discussing case with patient's nurse and consulting physicians was 60 minutes (2) COPD (chronic obstructive pulmonary disease): Status: Chronic Assessment and plan: patient given solumedrol 125 mg in the ER. Will continue for now but she does not sound bronchospastic. continue maintenance ICS/LAMA/LABA and use albuterol/i pratroprium prn (3) Elevated troponin I level: Status: Acute Assessment and plan: suspect secondary to type II demand ischemia from hypoxemia. troponin I is rising but not rapidly; however she has new anterolateral T wave changes, therefore check echo for new RWMA. (4) WENDY (acute kidney injury): Status: Acute Assessment and plan: patient was bolused w/ iv fluids; given her hx of HFPEF, will need to try to keep her on dry side in order to be able to get her off the ventilator. monitor urine output and BMP (5) (HFpEF) heart failure with preserved ejection fraction: Status: Chronic Assessment and plan: as above; check echo; keep on the dry side in order to be able to get her off ventilator (6) Seizure: Status: Suspected Assessment and plan: consult neuro; check EEG; Keppra was initiated in the ED; will continue for now however, I suspect that if indeed she had seizure then it was d/t her hypercarbia and hypoxemia. CT head showed no acute abnormalities. consider MRI brain when hemodynamically stable and off ventilator, consult neurology History of Present Illness History of Present Illness Chief Complaint: respiratory failure Narrative: 61-year-old female with oxygen dependent COPD, hypertension, HFpEF presented to the emergency department in acute respiratory failure with hypoxemic and hypercarbic respiratory failure. states that she has been struggling for couple days with increasing dyspnea this morning was confused. EMS found her oxygen saturation in the 70s on arrival. Patient's GCS was estimated 10 on arrival responding to loud verbal stimuli and painful stimuli groaning with verbal responses and opening her eyes to pain and sound and following basic commands. Patient was treated with nebulized bronchodilators and IV steroids for treatment of COPD exacerbation. Concern was raised for possible postictal state as the patient was found to have some tongue lacerations. Patient was tachycardic 130's sinus tachycardia, initially hypertensive w/ BP 160/109 and repeat of 152/101 however she became hypotensive w/ BP 68/49 and 77/52 associated w/ administration of sedation for preparation for intubation. She required fluid boluses and norepinephrine. Patient's BP did improve and now she is sedated on propofol drip and mechanically ventilated. Talking w/ her it does not sound like she had an antecedent infectious symptoms such as fever, chills or increased mucous production but she became progressively more dyspneic over past 24hr although it sounds like she had been having increased difficulty for at least couple days despite use of her nebulizer. Workup in the ED included routine labs including CBC (WBC 11,700), CMP (BUN 39, creatinine 1.4 w/ baseline 18 and 0.9, CO2 >45, pro BNP 17,600, troponin I of 62, 112, 119. Negative alcohol and UDS screen. UA unremarkable. Head CT no acute intracranial process. CXR w/ mild diffuse patchy interstitial infiltrates. EKG demonstrates sinus tachycardia @ 106 bpm however she has anterolateral T wave inversions which appear to be new compared to 03/27/22. Previous echo was done 02/06/22 which showed normal LV size and motion w/ LVEF 55-60%, normal RV size and function. Stat echo is being done to evaluate for any new RWMA and to assess LV overall function. Review of Systems Unobtainable due to mental status PFSH All Active Problems (Updated 05/10/22 @ 15:59 by Chelsey Marrero MD) Leukocytosis (Acute) Hyperkalemia (Acute) CHF exacerbation (Acute) Acute on chronic respiratory acidosis (Acute) Respiratory failure with hypoxia and hypercapnia (Acute) WENDY (acute kidney injury) (Acute) Elevated troponin I level (Acute) Altered mental status (Acute) Hypercarbia (Acute) Acidemia (Acute) SOB (shortness of breath) (Acute) Hypercarbia (Acute) COPD exacerbation (Acute) Acute and chronic respiratory failure (Acute) Vaginal bleeding (Acute) Hyponatremia (Acute) Pulmonary hypertension (Chronic) Hypoxia (Chronic) (HFpEF) heart failure with preserved ejection fraction (Chronic) Anxiety (Chronic) Dyspnea (Acute) Acute anemia (Acute) Postmenopausal bleeding (Acute) Dyspnea on exertion (Acute) S/P left inguinal hernia repair (Acute) 01/21/19 Dr Odette Cormier, left Left inguinal hernia (Acute) Incarcerated inguinal hernia, unilateral (Acute) Small bowel obstruction (Acute) Dehydration (Acute) Hypertension (Chronic) Change in mental status (Acute) Cardiomyopathy (Acute) Iron deficiency anemia due to chronic blood loss (Chronic) Chronic bronchitis with COPD (chronic obstructive pulmonary disease) (Acute) Alcohol abuse (Acute) COPD (chronic obstructive pulmonary disease) (Chronic) Medical History Alcoholic gastritis Former smoker Hyponatremia Mood disorder with psychosis Neck pain on right side Palliative care patient Pneumonia Post-menopausal bleeding Pulmonary hypertension Respiratory failure with hypoxia Uterine mass Not candidate for surgery at [facility] [place] [facility] [place] Had partial uterine artery embolization. Unable to complete / hypoxia. Surgical History EGD - MAC (07/04/16) Social History Smoking/Tobacco Use Status: Former Tobacco Use Quit Date: 01/13/15 Smoking risk assessment performed?: Yes Alcohol Intake: former Drug use: Never Substance use type: does not use Do you feel safe at home: Yes Do you feel safe in your relationship?: Yes Meds Allergies and Home Medications Allergies Allergy/AdvReac Type Severity Reaction Status Date / Time No Known Allergies Allergy Verified 05/10/22 09:11 Home Medications Medication Instructions Recorded Confirmed Type fluoxetine 20 mg capsule 10 mg PO DAILY 01/14/19 05/10/22 History acetaminophen 325 mg tablet 650 mg PO PRN PRN 01/21/19 03/27/22 History multivitamin 1 tab DAILY 11/17/19 05/10/22 History tiotropium 2.5 mcg-olodaterol 2.5 2 puff inhalation DAILY 09/15/20 05/10/22 History mcg/actuation mist for inhalation (Stiolto Respimat) fluticasone propionate 220 1 puff inhalation BID 07/26/21 05/10/22 History mcg/actuation HFA aerosol inhaler (Flovent HFA) lorazepam 0.5 mg tablet 0.5 mg PO DAILY PRN PRN 07/26/21 05/10/22 History nystatin 100,000 unit/gram topical 1 applic topical DIRECTED 07/26/21 03/27/22 History powder (Nystop) ipratropium bromide 0.02 % 0.25 mg (1.25 mL) UPD BID #60 mL 07/29/21 03/27/22 Rx solution for inhalation levalbuterol HCl 1.25 mg/3 mL 1.25 mg (3 mL) UPD BID #60 mL 07/29/21 03/27/22 Rx solution for nebulization levalbuterol tartrate 45 2 puff inhalation Q4H PRN PRN #15 07/29/21 03/27/22 Rx mcg/actuation aerosol inhaler grams metoprolol succinate 100 mg 200 mg PO HS #60 tabs 07/29/21 05/10/22 Rx tablet,extended release 24 hr norethindrone acetate 5 mg tablet 10 mg PO BID #240 tabs 11/14/21 05/10/22 Rx lisinopril 20 mg tablet 20 mg PO DAILY 12/30/21 05/10/22 History spironolactone 50 mg tablet 50 mg PO 1XD 12/30/21 05/10/22 History furosemide 80 mg tablet 1 tab BID 03/27/22 05/10/22 History ipratropium 0.5 mg-albuterol 3 mg 3 ml inhalation BID PRN 03/29/22 05/10/22 History (2.5 mg base)/3 mL nebulization soln pregabalin 25 mg capsule 1 - 2 cap PO BID 03/29/22 03/29/22 History risperidone 0.25 mg tablet 1 tab PO HS 03/29/22 03/29/22 History magnesium oxide 400 mg (241.3 mg 400 mg PO HS #0 tabs 03/30/22 05/10/22 Rx magnesium) tablet prednisone 20 mg tablet 40 mg PO DAILY #6 tabs 03/30/22 Rx ferrous sulfate 325 mg (65 mg 1 tab PO DAILY 05/10/22 05/10/22 History iron) tablet Exam Narrative Exam Narrative: Obese white female who is intubated. There are some swelling of her lips with some small lacerations no acute bleeding. HEENT without facial asymmetry Lungs with diffusely diminished breath sounds with some basilar rales no rhonchi Heart is regular but tachycardic Abdomen obese soft diminished bowel sounds no bruits no palpable masses Legs/feet w/out peripheral edema Results Labs Result diagrams: 05/10/22 06:52 05/10/22 06:52 Labs: Laboratory Results - last 24 hr 05/10/22 05/10/22 05/10/22 06:52 06:52 06:52 WBC 11.73 H RBC 4.30 Hgb 11.0 L Hct 39.7 MCV 92 MCH 25.6 L MCHC 27.7 L RDW 17.8 H Plt Count 258 MPV 9.7 Immature Gran % 1.9 Neutrophils % 87.0 Lymphocytes % 3.8 Monocytes % 6.9 Eosinophils % 0.0 Basophils % 0.4 Nucleated RBC % 0.6 H Absolute Neutrophils 10.21 H Absolute Lymphocytes 0.45 L Absolute Monocytes 0.81 H Absolute Eosinophils 0.00 Absolute Basophils 0.05 RBC Morphology See Below Polychromasia Present Hypochromasia 1+ Basophilic Stippling Present PT 9.7 INR 1.0 APTT 23.0 ABG Sample Site ABG pH ABG pCO2 ABG pO2 ABG HCO3 ABG Total CO2 ABG O2 Saturation ABG Base Excess VBG pH VBG pCO2 VBG pO2 VBG HCO3 VBG Total CO2 VBG O2 Saturation VBG Base Excess FiO2 Sodium 135 L Potassium 5.9 H Chloride 93 L Carbon Dioxide > 45.0 H Anion Gap -3.95645 L BUN 39 H Creatinine 1.4 H Est GFR (CKD-EPI 2020) 42.27 Glucose 153 H Calcium 9.3 Total Bilirubin 0.3 AST 26 ALT 23 Alkaline Phosphatase 69 Troponin I 62 H* NT-Pro-B Natriuret Pep 91763 H Total Protein 8.0 Albumin 3.6 TSH 1.20 Urine Color Urine Clarity Urine pH Ur Specific [place] Urine Protein Urine Ketones Urine Blood Urine Nitrite Urine Bilirubin Urine Urobilinogen Ur Leukocyte Esterase Urine RBC Urine WBC Ur Epithelial Cells Urine Crystals Urine Bacteria Urine Casts Urine Mucus Urine Other Ur Culture Indicated? Urine Glucose Urine Opiates Screen Urine Methadone Screen Ur Barbiturates Screen Ur Tricyclics Screen Ur Amphetamines Screen U Benzodiazepines Scrn Urine Cocaine Screen Ur THC Screen Ethyl Alcohol < 3.0 COVID-19 Source SARS-CoV-2 (PCR) Influenza Type A (PCR) Influenza Type B (PCR) RSV (PCR) 05/10/22 05/10/22 05/10/22 06:52 08:45 09:40 WBC RBC Hgb Hct MCV MCH MCHC RDW Plt Count MPV Immature Gran % Neutrophils % Lymphocytes % Monocytes % Eosinophils % Basophils % Nucleated RBC % Absolute Neutrophils Absolute Lymphocytes Absolute Monocytes Absolute Eosinophils Absolute Basophils RBC Morphology Polychromasia Hypochromasia Basophilic Stippling PT INR APTT ABG Sample Site Right Brachial ABG pH 7.38 ABG pCO2 68 H* ABG pO2 71 L ABG HCO3 41 H ABG Total CO2 38 H ABG O2 Saturation 95 ABG Base Excess > 15 H VBG pH 7.22 L VBG pCO2 > 100 H* VBG pO2 40 VBG HCO3 VBG Total CO2 VBG O2 Saturation 63 VBG Base Excess FiO2 50 Sodium Potassium Chloride Carbon Dioxide Anion Gap BUN Creatinine Est GFR (CKD-EPI 2020) Glucose Calcium Total Bilirubin AST ALT Alkaline Phosphatase Troponin I NT-Pro-B Natriuret Pep Total Protein Albumin TSH Urine Color Urine Clarity Urine pH Ur Specific [place] Urine Protein Urine Ketones Urine Blood Urine Nitrite Urine Bilirubin Urine Urobilinogen Ur Leukocyte Esterase Urine RBC Urine WBC Ur Epithelial Cells Urine Crystals Urine Bacteria Urine Casts Urine Mucus Urine Other Ur Culture Indicated? Urine Glucose Urine Opiates Screen Urine Methadone Screen Ur Barbiturates Screen Ur Tricyclics Screen Ur Amphetamines Screen U Benzodiazepines Scrn Urine Cocaine Screen Ur THC Screen Ethyl Alcohol COVID-19 Source Nasopharynx SARS-CoV-2 (PCR) Negative Influenza Type A (PCR) Negative Influenza Type B (PCR) Negative RSV (PCR) Negative 05/10/22 05/10/22 05/10/22 09:51 09:51 09:51 WBC RBC Hgb Hct MCV MCH MCHC RDW Plt Count MPV Immature Gran % Neutrophils % Lymphocytes % Monocytes % Eosinophils % Basophils % Nucleated RBC % Absolute Neutrophils Absolute Lymphocytes Absolute Monocytes Absolute Eosinophils Absolute Basophils RBC Morphology Polychromasia Hypochromasia Basophilic Stippling PT INR APTT ABG Sample Site ABG pH ABG pCO2 ABG pO2 ABG HCO3 ABG Total CO2 ABG O2 Saturation ABG Base Excess VBG pH VBG pCO2 VBG pO2 VBG HCO3 VBG Total CO2 VBG O2 Saturation VBG Base Excess FiO2 Sodium Potassium Chloride Carbon Dioxide Anion Gap BUN Creatinine Est GFR (CKD-EPI 2020) Glucose Calcium Total Bilirubin AST ALT Alkaline Phosphatase Troponin I 112 H* NT-Pro-B Natriuret Pep Total Protein Albumin TSH Urine Color Yellow Urine Clarity Clear Urine pH 7.5 Ur Specific [place] 1.020 Urine Protein 30 H Urine Ketones Negative Urine Blood Trace-intact H Urine Nitrite Negative Urine Bilirubin Negative Urine Urobilinogen 0.2 Ur Leukocyte Esterase Negative Urine RBC 3-5 H Urine WBC Negative Ur Epithelial Cells Few Urine Crystals Negative Urine Bacteria Few Urine Casts Negative Urine Mucus Trace Urine Other Rare Renal Ur Culture Indicated? No Urine Glucose 250 H Urine Opiates Screen Negative Urine Methadone Screen Negative Ur Barbiturates Screen Negative Ur Tricyclics Screen Negative Ur Amphetamines Screen Negative U Benzodiazepines Scrn Negative Urine Cocaine Screen Negative Ur THC Screen Negative Ethyl Alcohol COVID-19 Source SARS-CoV-2 (PCR) Influenza Type A (PCR) Influenza Type B (PCR) RSV (PCR) 05/10/22 12:20 WBC RBC Hgb Hct MCV MCH MCHC RDW Plt Count MPV Immature Gran % Neutrophils % Lymphocytes % Monocytes % Eosinophils % Basophils % Nucleated RBC % Absolute Neutrophils Absolute Lymphocytes Absolute Monocytes Absolute Eosinophils Absolute Basophils RBC Morphology Polychromasia Hypochromasia Basophilic Stippling PT INR APTT ABG Sample Site ABG pH ABG pCO2 ABG pO2 ABG HCO3 ABG Total CO2 ABG O2 Saturation ABG Base Excess VBG pH 7.41 VBG pCO2 68 H* VBG pO2 35 VBG HCO3 43 H VBG Total CO2 40 H VBG O2 Saturation 67 VBG Base Excess > 15 H FiO2 Sodium Potassium Chloride Carbon Dioxide Anion Gap BUN Creatinine Est GFR (CKD-EPI 2020) Glucose Calcium Total Bilirubin AST ALT Alkaline Phosphatase Troponin I NT-Pro-B Natriuret Pep Total Protein Albumin TSH Urine Color Urine Clarity Urine pH Ur Specific [place] Urine Protein Urine Ketones Urine Blood Urine Nitrite Urine Bilirubin Urine Urobilinogen Ur Leukocyte Esterase Urine RBC Urine WBC Ur Epithelial Cells Urine Crystals Urine Bacteria Urine Casts Urine Mucus Urine Other Ur Culture Indicated? Urine Glucose Urine Opiates Screen Urine Methadone Screen Ur Barbiturates Screen Ur Tricyclics Screen Ur Amphetamines Screen U Benzodiazepines Scrn Urine Cocaine Screen Ur THC Screen Ethyl Alcohol COVID-19 Source SARS-CoV-2 (PCR) Influenza Type A (PCR) Influenza Type B (PCR) RSV (PCR) Last Vital Signs Temp 36.6 C 05/10/22 06:46 Pulse 72 05/10/22 11:50 Resp 14 05/10/22 12:09 BP 95/63 L 05/10/22 11:50 Pulse Ox 98 05/10/22 12:09
[2022-05-10 12:51] LABS: Troponin I 119 ng/L (<or=60)
[2022-05-10] MEDS: PROPOFOL 1,000 MG/100 ML BTL 10.236 MG IV (13:00)
[2022-05-10 14:03] LABS: Procalcitonin < 0.1 ng/mL
[2022-05-10 14:08] LABS: D-Dimer 874 ng/mlFEU (<500)
--- NOTE | 2022-05-10 14:34 | PUCC_ITS ---
General Date of Service Date of service: 05/10/22 Time of Service: 14:34 Reason for Admission to ICU: Acute on chronic hypoxic and hypercapnic respiratory failure. Assessment and Plan Assessment and plan (1) Seizure: Status: Suspected (2) WENDY (acute kidney injury): Status: Acute (3) Elevated troponin I level: Status: Acute (4) Altered mental status: Status: Acute (5) Respiratory failure with hypoxia and hypercapnia: Status: Acute (6) Acute on chronic respiratory acidosis: Status: Acute (7) COPD exacerbation: Status: Acute (8) CHF exacerbation: Status: Acute (9) Hyperkalemia: Status: Acute (10) Leukocytosis: Status: Acute Assessment and plan: This is a co-morbid 61 yo admitted to the ICU for acute on chronic hypoxic and hypercapnic respiratory failure. Clinically, she is volume overloaded. She is not having bronchospasm, however with the acute on chronic respiratory acidosis, I recommend still covering her for a COPD exacerbation. She has gained 20lbs in the last month has had orthopnea, pulmonary edema and peripheral edema in addition to an extremely elevated bnp (even when compared to prior hospit alizations). In speaking with family the picture seems to be worsening volume overload (CHF exacerbation) leading to worsening hypoventilation and subsequent acute on chronic respiratory acidosis. She is stable on the ventilator, however was not receiving lung protective ventilation, so I did adjust her settings. Recommendations Pulmonary: Acute on chronic hypoxic and hypercapnic respiratory failure - lung protective ventilation - TV 6-8 cc/kg - I decreased from 450cc to 350cc - increased PEEP from 5-8cmH2O given pulmonary edema/volume as well as body habitus - keep RR at 14 - FiO2 wean to 88-92% SpO2 - driving pressure <15 - VAP bundle - negative fluid balance (see below) - I have started the process for obtaining a Trilogy on discharge COPD - will treat for exacerbation, although not currently clinically behaving as such - change IV methylpred to 40mg prednisone daily - Duonebs q6h - she is on Flovent and Stiolto at home, but on Symbicort here - once extubated would switch back to her home regimen - azithromycin 500mg IV daily for 5 days - can switch to PO once improving Cardiac: CHF Exacerbation - recommend negative fluid balance as below - 40mg IV Lasix now and daily to start - may need more doses in the day depending on response - no inotropy needed at this time Elevated troponin - demand related - no need to continue trending as it has plataeued Renal: WENDY - possibly congestion - continue to monitor UOP and Cr - diuresis and re-assess - daily lytes, Mg and phos Hyperkalemia - re-assess after diuresis I&O: Intake & Output 05/07/22 05/08/22 05/09/22 05/10/22 23:59 23:59 23:59 23:59 Intake Total 1356.428 / 1356.428 Output Total 200 / 200 Balance 1156.428 / 1156.428 Weight 88 kg Daily Fluid Goal:: Negative 1 L within next 24 hours GI Nutrition: Nutrition - will start Jevity tube feeds - start at 10cc/hr and increase by 5-10cc every 2-4 hours to a goal of 30cc/hr - nutrition consult in am Infectious Disease: No acute concerns Hematologic: Leukocytosis - reactive Neurologic: Seizure? - s/p Keppra - neurology consulted, will defer recs to them Endocrine: No acute concerns Lines: Right IJ CVC Munoz ETT Prophylaxis: Lovenosx Protonix Code Status: Resuscitation Status Full Code Subjective Critical and life-threatening events over the past 24 hours: This is a 61 yo woman with COPD, CHF, OHS and ISAURA who is admitted to the ICU for respiratory failure necessitating invasive mechanical ventilation. Per her daughter she has been having increased somnolence, worsening orthopnea, weight gain (20lbs in the last month) and general malaise for a couple weeks. She was found to have hypoxia and was obtunded so was intubated in the ED. She had transient hypotension in the setting of intubation. Her blood gas found an acute on chronic hypercapnic respiratory failure. Her head CT was negative and her EKG was non-ischemic. Her troponins were slightly bumped, she has a increase in her creatinine and her CXR shows clear volume overload. She has had a sleep study recently, recommending a titration study for CPAP/BiPAP/ASV to determine her needs but this was not completed yet. Her AHI is 71. Exam Narrative Exam Narrative: POCUS 05/10/22: All views visualized, parasternal view suboptimal. Likely borderline low EF, RV normal size and function. IVC 2.5cm with no collapse (while on 8 of PEEP). No pericardial effusion. No pleural effusions bilaterally. + significant B-lines posteriorly, non significant B-lines anteriorly. Gen: NAD, sedated and mechanicall ventilated HENT: PERRL, nasal turbinates normal without erythema or inflammation, moist oral mucosa, Mallampati 2, No LAD or JVD Chest: No respiratory distress, normal appearance of chest, clear to auscultation bilaterally, + posterior scattered crackles, normal inspiratory effort Heart: regular rate and rhythym, no murmurs, rubs or gallops Abdomen: Non-distended, soft, non tender Extremities: No clubbing, 3+ edema to knee, cyanosis, rashes Neuro: sedated, RASS -4 Psych: unable to assess - sedated Most Recent VS/Results Last Vital Signs Temp 36.6 C 05/10/22 06:46 Pulse 86 05/10/22 13:50 Resp 14 05/10/22 14:15 BP 95/59 L 05/10/22 13:50 Pulse Ox 90 L 05/10/22 13:51 Laboratory Results - last 24 hr 05/10/22 05/10/22 05/10/22 06:52 06:52 06:52 WBC 11.73 H RBC 4.30 Hgb 11.0 L Hct 39.7 MCV 92 MCH 25.6 L MCHC 27.7 L RDW 17.8 H Plt Count 258 MPV 9.7 Immature Gran % 1.9 Neutrophils % 87.0 Lymphocytes % 3.8 Monocytes % 6.9 Eosinophils % 0.0 Basophils % 0.4 Nucleated RBC % 0.6 H Absolute Neutrophils 10.21 H Absolute Lymphocytes 0.45 L Absolute Monocytes 0.81 H Absolute Eosinophils 0.00 Absolute Basophils 0.05 RBC Morphology See Below Polychromasia Present Hypochromasia 1+ Basophilic Stippling Present PT 9.7 INR 1.0 APTT 23.0 D-Dimer ABG Sample Site ABG pH ABG pCO2 ABG pO2 ABG HCO3 ABG Total CO2 ABG O2 Saturation ABG Base Excess VBG pH VBG pCO2 VBG pO2 VBG HCO3 VBG Total CO2 VBG O2 Saturation VBG Base Excess FiO2 Sodium 135 L Potassium 5.9 H Chloride 93 L Carbon Dioxide > 45.0 H Anion Gap -3.32120 L BUN 39 H Creatinine 1.4 H Est GFR (CKD-EPI 2020) 42.27 Glucose 153 H Calcium 9.3 Total Bilirubin 0.3 AST 26 ALT 23 Alkaline Phosphatase 69 Troponin I 62 H* NT-Pro-B Natriuret Pep 44790 H Total Protein 8.0 Albumin 3.6 Procalcitonin TSH 1.20 Urine Color Urine Clarity Urine pH Ur Specific [place] Urine Protein Urine Ketones Urine Blood Urine Nitrite Urine Bilirubin Urine Urobilinogen Ur Leukocyte Esterase Urine RBC Urine WBC Ur Epithelial Cells Urine Crystals Urine Bacteria Urine Casts Urine Mucus Urine Other Ur Culture Indicated? Urine Glucose Urine Opiates Screen Urine Methadone Screen Ur Barbiturates Screen Ur Tricyclics Screen Ur Amphetamines Screen U Benzodiazepines Scrn Urine Cocaine Screen Ur THC Screen Ethyl Alcohol < 3.0 COVID-19 Source SARS-CoV-2 (PCR) Influenza Type A (PCR) Influenza Type B (PCR) RSV (PCR) 05/10/22 05/10/22 05/10/22 06:52 06:52 08:45 WBC RBC Hgb Hct MCV MCH MCHC RDW Plt Count MPV Immature Gran % Neutrophils % Lymphocytes % Monocytes % Eosinophils % Basophils % Nucleated RBC % Absolute Neutrophils Absolute Lymphocytes Absolute Monocytes Absolute Eosinophils Absolute Basophils RBC Morphology Polychromasia Hypochromasia Basophilic Stippling PT INR APTT D-Dimer 874 H ABG Sample Site Right Brachial ABG pH 7.38 ABG pCO2 68 H* ABG pO2 71 L ABG HCO3 41 H ABG Total CO2 38 H ABG O2 Saturation 95 ABG Base Excess > 15 H VBG pH 7.22 L VBG pCO2 > 100 H* VBG pO2 40 VBG HCO3 VBG Total CO2 VBG O2 Saturation 63 VBG Base Excess FiO2 50 Sodium Potassium Chloride Carbon Dioxide Anion Gap BUN Creatinine Est GFR (CKD-EPI 2020) Glucose Calcium Total Bilirubin AST ALT Alkaline Phosphatase Troponin I NT-Pro-B Natriuret Pep Total Protein Albumin Procalcitonin TSH Urine Color Urine Clarity Urine pH Ur Specific [place] Urine Protein Urine Ketones Urine Blood Urine Nitrite Urine Bilirubin Urine Urobilinogen Ur Leukocyte Esterase Urine RBC Urine WBC Ur Epithelial Cells Urine Crystals Urine Bacteria Urine Casts Urine Mucus Urine Other Ur Culture Indicated? Urine Glucose Urine Opiates Screen Urine Methadone Screen Ur Barbiturates Screen Ur Tricyclics Screen Ur Amphetamines Screen U Benzodiazepines Scrn Urine Cocaine Screen Ur THC Screen Ethyl Alcohol COVID-19 Source SARS-CoV-2 (PCR) Influenza Type A (PCR) Influenza Type B (PCR) RSV (PCR) 05/10/22 05/10/22 05/10/22 09:40 09:51 09:51 WBC RBC Hgb Hct MCV MCH MCHC RDW Plt Count MPV Immature Gran % Neutrophils % Lymphocytes % Monocytes % Eosinophils % Basophils % Nucleated RBC % Absolute Neutrophils Absolute Lymphocytes Absolute Monocytes Absolute Eosinophils Absolute Basophils RBC Morphology Polychromasia Hypochromasia Basophilic Stippling PT INR APTT D-Dimer ABG Sample Site ABG pH ABG pCO2 ABG pO2 ABG HCO3 ABG Total CO2 ABG O2 Saturation ABG Base Excess VBG pH VBG pCO2 VBG pO2 VBG HCO3 VBG Total CO2 VBG O2 Saturation VBG Base Excess FiO2 Sodium Potassium Chloride Carbon Dioxide Anion Gap BUN Creatinine Est GFR (CKD-EPI 2020) Glucose Calcium Total Bilirubin AST ALT Alkaline Phosphatase Troponin I 112 H* NT-Pro-B Natriuret Pep Total Protein Albumin Procalcitonin TSH Urine Color Urine Clarity Urine pH Ur Specific [place] Urine Protein Urine Ketones Urine Blood Urine Nitrite Urine Bilirubin Urine Urobilinogen Ur Leukocyte Esterase Urine RBC Urine WBC Ur Epithelial Cells Urine Crystals Urine Bacteria Urine Casts Urine Mucus Urine Other Ur Culture Indicated? Urine Glucose Urine Opiates Screen Negative Urine Methadone Screen Negative Ur Barbiturates Screen Negative Ur Tricyclics Screen Negative Ur Amphetamines Screen Negative U Benzodiazepines Scrn Negative Urine Cocaine Screen Negative Ur THC Screen Negative Ethyl Alcohol COVID-19 Source Nasopharynx SARS-CoV-2 (PCR) Negative Influenza Type A (PCR) Negative Influenza Type B (PCR) Negative RSV (PCR) Negative 05/10/22 05/10/22 05/10/22 09:51 12:20 12:20 WBC RBC Hgb Hct MCV MCH MCHC RDW Plt Count MPV Immature Gran % Neutrophils % Lymphocytes % Monocytes % Eosinophils % Basophils % Nucleated RBC % Absolute Neutrophils Absolute Lymphocytes Absolute Monocytes Absolute Eosinophils Absolute Basophils RBC Morphology Polychromasia Hypochromasia Basophilic Stippling PT INR APTT D-Dimer ABG Sample Site ABG pH ABG pCO2 ABG pO2 ABG HCO3 ABG Total CO2 ABG O2 Saturation ABG Base Excess VBG pH 7.41 VBG pCO2 68 H* VBG pO2 35 VBG HCO3 43 H VBG Total CO2 40 H VBG O2 Saturation 67 VBG Base Excess > 15 H FiO2 Sodium Potassium Chloride Carbon Dioxide Anion Gap BUN Creatinine Est GFR (CKD-EPI 2020) Glucose Calcium Total Bilirubin AST ALT Alkaline Phosphatase Troponin I 119 H* NT-Pro-B Natriuret Pep Total Protein Albumin Procalcitonin TSH Urine Color Yellow Urine Clarity Clear Urine pH 7.5 Ur Specific [place] 1.020 Urine Protein 30 H Urine Ketones Negative Urine Blood Trace-intact H Urine Nitrite Negative Urine Bilirubin Negative Urine Urobilinogen 0.2 Ur Leukocyte Esterase Negative Urine RBC 3-5 H Urine WBC Negative Ur Epithelial Cells Few Urine Crystals Negative Urine Bacteria Few Urine Casts Negative Urine Mucus Trace Urine Other Rare Renal Ur Culture Indicated? No Urine Glucose 250 H Urine Opiates Screen Urine Methadone Screen Ur Barbiturates Screen Ur Tricyclics Screen Ur Amphetamines Screen U Benzodiazepines Scrn Urine Cocaine Screen Ur THC Screen Ethyl Alcohol COVID-19 Source SARS-CoV-2 (PCR) Influenza Type A (PCR) Influenza Type B (PCR) RSV (PCR) 05/10/22 12:20 WBC RBC Hgb Hct MCV MCH MCHC RDW Plt Count MPV Immature Gran % Neutrophils % Lymphocytes % Monocytes % Eosinophils % Basophils % Nucleated RBC % Absolute Neutrophils Absolute Lymphocytes Absolute Monocytes Absolute Eosinophils Absolute Basophils RBC Morphology Polychromasia Hypochromasia Basophilic Stippling PT INR APTT D-Dimer ABG Sample Site ABG pH ABG pCO2 ABG pO2 ABG HCO3 ABG Total CO2 ABG O2 Saturation ABG Base Excess VBG pH VBG pCO2 VBG pO2 VBG HCO3 VBG Total CO2 VBG O2 Saturation VBG Base Excess FiO2 Sodium Potassium Chloride Carbon Dioxide Anion Gap BUN Creatinine Est GFR (CKD-EPI 2020) Glucose Calcium Total Bilirubin AST ALT Alkaline Phosphatase Troponin I NT-Pro-B Natriuret Pep Total Protein Albumin Procalcitonin < 0.1 TSH Urine Color Urine Clarity Urine pH Ur Specific [place] Urine Protein Urine Ketones Urine Blood Urine Nitrite Urine Bilirubin Urine Urobilinogen Ur Leukocyte Esterase Urine RBC Urine WBC Ur Epithelial Cells Urine Crystals Urine Bacteria Urine Casts Urine Mucus Urine Other Ur Culture Indicated? Urine Glucose Urine Opiates Screen Urine Methadone Screen Ur Barbiturates Screen Ur Tricyclics Screen Ur Amphetamines Screen U Benzodiazepines Scrn Urine Cocaine Screen Ur THC Screen Ethyl Alcohol COVID-19 Source SARS-CoV-2 (PCR) Influenza Type A (PCR) Influenza Type B (PCR) RSV (PCR) Review of Systems Unobtainable due to endotracheal tube Time spent with patient Time spent in Critical Care: 70 Time spent in Critical care included: Coordination of care, Chart review, Documenting critically ill care, Time at immediate bedside, Discussing critically ill care with other medical staff and Discussing care with family members Multi-Disciplinary Checklist Lines/Tubes CENTRAL LINE: yes, Central Line Day#: 0 ARTERIAL LINE: no MUNOZ: yes, Munoz Day#: 0 ENDOTRACHEAL TUBE: yes, Endotracheal Tube Day#: 0 Sedation: yes, Sedation Vacation: no, Reason/Intervention: just intubated today, will perform this tomorrow Head of Bed@30 degrees: yes Spontaneous Breathing Trial: no, Reason/Intervention: just intubated, will perform tomorrow ICU Maintenance GLUCOSE 140-180mg/dL: yes NUTRITION AT GOAL: no, Reason/Intervention: started Jevity tube feeds PRESSURE ULCER: no RESTRAINTS: yes, Reviewed Necessity: Yes ANTIBIOTICS(if yes, consider Stewardship): Yes Social Issues FAMILY UPDATED: yes PT/OT: no, Reason/Intervention: not currently appropriate GOALS/DISPOSITION/PROFESSIONAL ATHLETES COACH: no, Reason/Intervention: just admitted, will discuss CODE STATUS: Full Prophylaxis DVT PROPHYLAXIS: yes GI PROPHYLAXIS: yes, Indication: mechanical ventilation
[2022-05-10] MEDS: Enoxaparin 40 MG/0.4 ML SYR SC (14:52)
[2022-05-10] MEDS: Furosemide 40 MG/4 ML VIAL (15:15)
[2022-05-10] MEDS: Albuterol/Ipratropium 3 ML UPD VIAL UPD (15:57)
[2022-05-10] MEDS: Normal Saline Flush 10 ML SYR IVP (16:04)
[2022-05-10] MEDS: Pantoprazole 40 MG VIAL IVP (16:04)
[2022-05-10] MEDS: AZITHROMYCIN 500 MG in Normal Saline 250 ML 250 MG IVPB (16:06)
--- NOTE | 2022-05-10 16:40 | PHA.REVIEW2 ---
Pharmacy Admission Review - Admission Clinical Review (Last Reviewed 05/10/22 @ 13:03 by Norman Wu MD) Leukocytosis (Acute) Hyperkalemia (Acute) CHF exacerbation (Acute) Acute on chronic respiratory acidosis (Acute) Respiratory failure with hypoxia and hypercapnia (Acute) WENDY (acute kidney injury) (Acute) Elevated troponin I level (Acute) Altered mental status (Acute) Hypercarbia (Acute) Acidemia (Acute) COPD exacerbation (Acute) Acute and chronic respiratory failure (Acute) No Known Allergies Allergy (Verified 05/10/22 09:11) Resuscitation Status Full Code Weight 85.3 kg - Renal Dosing Renal Dosing: BUN 39 mg/dL (7-18) H 05/10/22 06:52 Creatinine 1.4 mg/dL (0.55-1.02) H 05/10/22 06:52 Medications needing adjustments: Reviewed List of meds needing interventions: eCrCl 39.9 ml/min - Anticoagulation Anticoagulation: Hgb 11.0 g/dL (11.2-15.7) L 05/10/22 06:52 Hct 39.7 % (36.0-46.0) 05/10/22 06:52 Plt Count 258 10^3/uL (130-400) 05/10/22 06:52 INR 1.0 (0.9-1.1) 05/10/22 06:52 Creatinine 1.4 mg/dL (0.55-1.02) H 05/10/22 06:52 DVT Prophylaxis: Reviewed Medications: Enoxaparin - Opiate Usage Evaluate Pain Scale/Pains Meds: Reviewed - Relevant Labs Sodium 135 mmol/L (136-145) L 05/10/22 06:52 Potassium 5.9 mmol/L (3.5-5.1) H 05/10/22 06:52 Chloride 93 mmol/L (98-107) L 05/10/22 06:52 Electrolytes, C-Reactive P, ESR: Reviewed (calcium gluconate + insulin/dextrose given in the ED for hyperkalemia) - DM Control DM Control: Glucose 153 mg/dL (74-106) H 05/10/22 06:52 Finger Stick Blood Glucose 172 Finger Stick Blood Glucose 172 DM Control: Reviewed - Cardiac Review Cardiac Review: Troponin I 119 ng/L (<or=60) H* 05/10/22 12:20 NT-Pro-B Natriuret Pep 11099 pg/mL (<300) H 05/10/22 06:52 BP, HR, EF%: Reviewed - Qtc Review QTc: N/A - IV to PO Switch IV Medications: Reviewed (currently intubated) - Home Meds Home Med List reviewed: Reviewed - Current meds Current Medication Order Review: Reviewed (azithromycin 500mg daily x5 days started for copd exacerbation coverage, possible seizure so was started on IV keppra, propofol for sedation)
--- NOTE | 2022-05-10 16:44 | NCONE_ITS ---
Date of service: 05/10/22 Time of Service: 16:44 Assessment and Plan Assessment and plan (1) Altered mental status: Status: Acute Assessment and plan: Patient with AMS in setting of hypoxemia and hypercapnea presumed to be secondary to CHF exacerbation. She was noted to have a tongue laceration on exa m and thus concerns raised for possible seizure activity prior to arrival. Limited exam at time due to intubation and sedating medications. Continue LEV 1000mg BID for now. No EEG available today - will plan for EEG tomorrow. Post- extubation, consider brain MRI pending how she does/other findings. History of Present Illness History of Present Illness Chief Complaint: AMS and ?seizure Narrative: Handedness: unknown. Ms. Hernandez is a 61 year-old with COPD, CHF, pulmonary hypertension, depression, anxiety, ?ISAURA, remote ETOH abuse, and a uterine mass (not a surgical candidate at [facility] [place]). Per reports, she had been having increased dyspnea >1 week with increasing home O2 needs. Along with this, she has gained 20+ pounds and noted LE edema. EMS was called this am due to altered mental status found to have O2 sats in the 70s. Per reports, AMS has been present for at least 24 hours prior to admission. In the ER, she was minimally responsive, unable to tolerate bipap and intubated. She was noted to have tongue lacerations - though no obvious external trauma. For this reason, conern was raised that she may have had a seizure - though no seizure activity was witnessed at home. She has no prior history of seizures. She is currently on proprofol drip. She was also given 1500mg levetiracetam x1 and now on 1000mg BID. -CTH (05/10/22): No acute findings. I reviewed these images personally and this is my personal interpretation. -Labs (05/10/22): W 11.73, Hgb 11.0, Na 135 (stable), CO2 >45, BUN 39, Cr 1.4, trop 62 -> 112 - > 119, BNP 46827, procalcitonin <0.1, TSH 1.20 Review of Systems Unobtainable due to endotracheal tube PFSH All Active Problems (Updated 05/10/22 @ 15:59 by Chelsey Marrero MD) Leukocytosis (Acute) Hyperkalemia (Acute) CHF exacerbation (Acute) Acute on chronic respiratory acidosis (Acute) Respiratory failure with hypoxia and hypercapnia (Acute) WENDY (acute kidney injury) (Acute) Elevated troponin I level (Acute) Altered mental status (Acute) Hypercarbia (Acute) Acidemia (Acute) SOB (shortness of breath) (Acute) Hypercarbia (Acute) COPD exacerbation (Acute) Acute and chronic respiratory failure (Acute) Vaginal bleeding (Acute) Hyponatremia (Acute) Pulmonary hypertension (Chronic) Hypoxia (Chronic) (HFpEF) heart failure with preserved ejection fraction (Chronic) Anxiety (Chronic) Dyspnea (Acute) Acute anemia (Acute) Postmenopausal bleeding (Acute) Dyspnea on exertion (Acute) S/P left inguinal hernia repair (Acute) 01/21/19 Dr Odette Cormier, left Left inguinal hernia (Acute) Incarcerated inguinal hernia, unilateral (Acute) Small bowel obstruction (Acute) Dehydration (Acute) Hypertension (Chronic) Change in mental status (Acute) Cardiomyopathy (Acute) Iron deficiency anemia due to chronic blood loss (Chronic) Chronic bronchitis with COPD (chronic obstructive pulmonary disease) (Acute) Alcohol abuse (Acute) COPD (chronic obstructive pulmonary disease) (Chronic) Medical History Alcoholic gastritis Former smoker Hyponatremia Mood disorder with psychosis Neck pain on right side Palliative care patient Pneumonia Post-menopausal bleeding Pulmonary hypertension Respiratory failure with hypoxia Uterine mass Not candidate for surgery at [facility] or [facility].08/10/21. Had partial uterine artery embolization. Unable to complete 2/2 hypoxia. Surgical History EGD - MAC (07/04/16) Social History Smoking/Tobacco Use Status: Former Tobacco Use Quit Date: 01/13/15 Smoking risk assessment performed?: Yes Alcohol Intake: former Drug use: Never Substance use type: does not use Do you feel safe at home: Yes Do you feel safe in your relationship?: Yes Visit Medication and Allergies Active Medications Generic Name Dose Route Start Last Admin Trade Name Freq PRN Reason Stop Dose Admin Acetaminophen 650 mg 05/10/22 11:47 Acetaminophen 650 Mg Supp KS Q4H PRN PRN Albuterol/Ipratropium 3 ml 05/10/22 16:00 05/10/22 15:57 Albuterol/Ipratropium 3 Ml Upd Vial UPD 3 ml Q6H ESDRAS Administration Budesonide/Formoterol Fumarate 2 puff 05/10/22 20:00 Budesonide/Formoterol 160/4.5 6 Gm 60 Puff Inh IH BID ESDRAS Chlorhexidine Gluconate 0 ml 05/10/22 13:15 Chlorhexidine Gluconate 0.12% Mouthwash 118 Ml Btl MM DIRECTED ESDRAS Device 1 each 05/10/22 14:00 Inhaler, Assist Device MC DIRECTED [facility] Dimethicone/Zinc Oxide 0 gm 05/10/22 11:47 Adriana Protect Cream 142 Gm Tube TP PRN PRN Enoxaparin Sodium 40 mg 05/10/22 14:00 05/10/22 14:52 Enoxaparin 40 Mg/0.4 Ml Syr SC 40 mg Q24H ESDRAS Administration Fentanyl 50 mcg 05/10/22 15:19 Fentanyl 100 Mcg/2 Ml Vial IVP Q2H PRN PRN Furosemide 40 mg 05/11/22 08:30 Furosemide 40 Mg/4 Ml Vial IVP DAILY [facility] Sodium Chloride 500 mls @ 0 mls/hr 05/10/22 11:47 Saline 500ml Bag IV PRN PRN As Directed Levetiracetam 1,000 mg/ Sodium 110 mls @ 400 mls/hr 05/10/22 22:00 Chloride IVPB Q12H ESDRAS Azithromycin 500 mg/ Sodium 250 mls @ 250 mls/hr 05/10/22 16:00 05/10/22 16:06 Chloride IVPB 250 mls/hr Q24H [facility] Administration Propofol 1,000 mg in 100 mls @ 10.236 mls/hr 05/10/22 15:30 05/10/22 13:00 Diprivan IV 20 mcg/kg/min INFUSION ESDRAS 10.236 mls/hr Administration Protocol 20 MCG/KG/MIN IV Miscellaneous Supplies 1 each 05/10/22 12:00 Iv Access IV DIRECTED [facility] Nicotine 21 mg 05/10/22 11:47 Nicotine 21 Mg/24 Hr Patch TD DAILY PRN PRN Pantoprazole Sodium 40 mg 05/10/22 16:00 05/10/22 16:04 Pantoprazole 40 Mg Vial IVP 40 mg Q24H ESDRAS Administration Prednisone 40 mg 05/11/22 08:30 Prednisone 20 Mg Tab PO DAILY ESDRAS Sodium Chloride 0 ml 05/10/22 11:47 05/10/22 16:04 Normal Saline Flush 10 Ml Syr IVP 20 ml PRN PRN Administration Allergies No Known Allergies Allergy (Verified 05/10/22 09:11) Exam Narrative Exam Narrative: Physical Exam: Constitutional: patient intubated on proprofol drip; does not respond to voice or noxious stimuli Neck: Supple, no meningismus CV: RRR Resp: CTAB Abd: Soft, nontender, nondistended, +BS Extrem: mild bilateral LE edema; no cyanosis, no obvious limb injuries Neuro: MS/Language/Speech: intubated, does not respond to voice or noxious stimuli CN: PERRL, does squint to light; doll's eye absent Sensori-Motor: No response to noxious stimuli in any extremity. No spontaneous movements Reflexes: brisk in R hemibody with sustained R ankle clonus; there were a few beats of clonus on the left; toes down going; Coordination: cannot assess Gait: cannot assess Results Last Vital Signs Temp 98.2 F 05/10/22 14:44 Pulse 90 05/10/22 15:57 Resp 14 05/10/22 16:00 BP 80/50 L 05/10/22 16:00 Pulse Ox 91 L 05/10/22 16:00 Labs Result diagrams: 05/10/22 06:52 05/10/22 06:52 Labs: Laboratory Results - last 24 hr 05/10/22 05/10/22 05/10/22 06:52 06:52 06:52 WBC 11.73 H RBC 4.30 Hgb 11.0 L Hct 39.7 MCV 92 MCH 25.6 L MCHC 27.7 L RDW 17.8 H Plt Count 258 MPV 9.7 Immature Gran % 1.9 Neutrophils % 87.0 Lymphocytes % 3.8 Monocytes % 6.9 Eosinophils % 0.0 Basophils % 0.4 Nucleated RBC % 0.6 H Absolute Neutrophils 10.21 H Absolute Lymphocytes 0.45 L Absolute Monocytes 0.81 H Absolute Eosinophils 0.00 Absolute Basophils 0.05 RBC Morphology See Below Polychromasia Present Hypochromasia 1+ Basophilic Stippling Present PT 9.7 INR 1.0 APTT 23.0 D-Dimer ABG Sample Site ABG pH ABG pCO2 ABG pO2 ABG HCO3 ABG Total CO2 ABG O2 Saturation ABG Base Excess VBG pH VBG pCO2 VBG pO2 VBG HCO3 VBG Total CO2 VBG O2 Saturation VBG Base Excess FiO2 Sodium 135 L Potassium 5.9 H Chloride 93 L Carbon Dioxide > 45.0 H Anion Gap -3.84508 L BUN 39 H Creatinine 1.4 H Est GFR (CKD-EPI 2020) 42.27 Glucose 153 H Calcium 9.3 Total Bilirubin 0.3 AST 26 ALT 23 Alkaline Phosphatase 69 Troponin I 62 H* NT-Pro-B Natriuret Pep 47321 H Total Protein 8.0 Albumin 3.6 Procalcitonin TSH 1.20 Urine Color Urine Clarity Urine pH Ur Specific [place] Urine Protein Urine Ketones Urine Blood Urine Nitrite Urine Bilirubin Urine Urobilinogen Ur Leukocyte Esterase Urine RBC Urine WBC Ur Epithelial Cells Urine Crystals Urine Bacteria Urine Casts Urine Mucus Urine Other Ur Culture Indicated? Urine Glucose Urine Opiates Screen Urine Methadone Screen Ur Barbiturates Screen Ur Tricyclics Screen Ur Amphetamines Screen U Benzodiazepines Scrn Urine Cocaine Screen Ur THC Screen Ethyl Alcohol < 3.0 COVID-19 Source SARS-CoV-2 (PCR) Influenza Type A (PCR) Influenza Type B (PCR) RSV (PCR) 05/10/22 05/10/22 05/10/22 06:52 06:52 08:45 WBC RBC Hgb Hct MCV MCH MCHC RDW Plt Count MPV Immature Gran % Neutrophils % Lymphocytes % Monocytes % Eosinophils % Basophils % Nucleated RBC % Absolute Neutrophils Absolute Lymphocytes Absolute Monocytes Absolute Eosinophils Absolute Basophils RBC Morphology Polychromasia Hypochromasia Basophilic Stippling PT INR APTT D-Dimer 874 H ABG Sample Site Right Brachial ABG pH 7.38 ABG pCO2 68 H* ABG pO2 71 L ABG HCO3 41 H ABG Total CO2 38 H ABG O2 Saturation 95 ABG Base Excess > 15 H VBG pH 7.22 L VBG pCO2 > 100 H* VBG pO2 40 VBG HCO3 VBG Total CO2 VBG O2 Saturation 63 VBG Base Excess FiO2 50 Sodium Potassium Chloride Carbon Dioxide Anion Gap BUN Creatinine Est GFR (CKD-EPI 2020) Glucose Calcium Total Bilirubin AST ALT Alkaline Phosphatase Troponin I NT-Pro-B Natriuret Pep Total Protein Albumin Procalcitonin TSH Urine Color Urine Clarity Urine pH Ur Specific [place] Urine Protein Urine Ketones Urine Blood Urine Nitrite Urine Bilirubin Urine Urobilinogen Ur Leukocyte Esterase Urine RBC Urine WBC Ur Epithelial Cells Urine Crystals Urine Bacteria Urine Casts Urine Mucus Urine Other Ur Culture Indicated? Urine Glucose Urine Opiates Screen Urine Methadone Screen Ur Barbiturates Screen Ur Tricyclics Screen Ur Amphetamines Screen U Benzodiazepines Scrn Urine Cocaine Screen Ur THC Screen Ethyl Alcohol COVID-19 Source SARS-CoV-2 (PCR) Influenza Type A (PCR) Influenza Type B (PCR) RSV (PCR) 05/10/22 05/10/22 05/10/22 09:40 09:51 09:51 WBC RBC Hgb Hct MCV MCH MCHC RDW Plt Count MPV Immature Gran % Neutrophils % Lymphocytes % Monocytes % Eosinophils % Basophils % Nucleated RBC % Absolute Neutrophils Absolute Lymphocytes Absolute Monocytes Absolute Eosinophils Absolute Basophils RBC Morphology Polychromasia Hypochromasia Basophilic Stippling PT INR APTT D-Dimer ABG Sample Site ABG pH ABG pCO2 ABG pO2 ABG HCO3 ABG Total CO2 ABG O2 Saturation ABG Base Excess VBG pH VBG pCO2 VBG pO2 VBG HCO3 VBG Total CO2 VBG O2 Saturation VBG Base Excess FiO2 Sodium Potassium Chloride Carbon Dioxide Anion Gap BUN Creatinine Est GFR (CKD-EPI 2020) Glucose Calcium Total Bilirubin AST ALT Alkaline Phosphatase Troponin I 112 H* NT-Pro-B Natriuret Pep Total Protein Albumin Procalcitonin TSH Urine Color Urine Clarity Urine pH Ur Specific [place] Urine Protein Urine Ketones Urine Blood Urine Nitrite Urine Bilirubin Urine Urobilinogen Ur Leukocyte Esterase Urine RBC Urine WBC Ur Epithelial Cells Urine Crystals Urine Bacteria Urine Casts Urine Mucus Urine Other Ur Culture Indicated? Urine Glucose Urine Opiates Screen Negative Urine Methadone Screen Negative Ur Barbiturates Screen Negative Ur Tricyclics Screen Negative Ur Amphetamines Screen Negative U Benzodiazepines Scrn Negative Urine Cocaine Screen Negative Ur THC Screen Negative Ethyl Alcohol COVID-19 Source Nasopharynx SARS-CoV-2 (PCR) Negative Influenza Type A (PCR) Negative Influenza Type B (PCR) Negative RSV (PCR) Negative 05/10/22 05/10/22 05/10/22 09:51 12:20 12:20 WBC RBC Hgb Hct MCV MCH MCHC RDW Plt Count MPV Immature Gran % Neutrophils % Lymphocytes % Monocytes % Eosinophils % Basophils % Nucleated RBC % Absolute Neutrophils Absolute Lymphocytes Absolute Monocytes Absolute Eosinophils Absolute Basophils RBC Morphology Polychromasia Hypochromasia Basophilic Stippling PT INR APTT D-Dimer ABG Sample Site ABG pH ABG pCO2 ABG pO2 ABG HCO3 ABG Total CO2 ABG O2 Saturation ABG Base Excess VBG pH 7.41 VBG pCO2 68 H* VBG pO2 35 VBG HCO3 43 H VBG Total CO2 40 H VBG O2 Saturation 67 VBG Base Excess > 15 H FiO2 Sodium Potassium Chloride Carbon Dioxide Anion Gap BUN Creatinine Est GFR (CKD-EPI 2020) Glucose Calcium Total Bilirubin AST ALT Alkaline Phosphatase Troponin I 119 H* NT-Pro-B Natriuret Pep Total Protein Albumin Procalcitonin TSH Urine Color Yellow Urine Clarity Clear Urine pH 7.5 Ur Specific [place] 1.020 Urine Protein 30 H Urine Ketones Negative Urine Blood Trace-intact H Urine Nitrite Negative Urine Bilirubin Negative Urine Urobilinogen 0.2 Ur Leukocyte Esterase Negative Urine RBC 3-5 H Urine WBC Negative Ur Epithelial Cells Few Urine Crystals Negative Urine Bacteria Few Urine Casts Negative Urine Mucus Trace Urine Other Rare Renal Ur Culture Indicated? No Urine Glucose 250 H Urine Opiates Screen Urine Methadone Screen Ur Barbiturates Screen Ur Tricyclics Screen Ur Amphetamines Screen U Benzodiazepines Scrn Urine Cocaine Screen Ur THC Screen Ethyl Alcohol COVID-19 Source SARS-CoV-2 (PCR) Influenza Type A (PCR) Influenza Type B (PCR) RSV (PCR) 05/10/22 12:20 WBC RBC Hgb Hct MCV MCH MCHC RDW Plt Count MPV Immature Gran % Neutrophils % Lymphocytes % Monocytes % Eosinophils % Basophils % Nucleated RBC % Absolute Neutrophils Absolute Lymphocytes Absolute Monocytes Absolute Eosinophils Absolute Basophils RBC Morphology Polychromasia Hypochromasia Basophilic Stippling PT INR APTT D-Dimer ABG Sample Site ABG pH ABG pCO2 ABG pO2 ABG HCO3 ABG Total CO2 ABG O2 Saturation ABG Base Excess VBG pH VBG pCO2 VBG pO2 VBG HCO3 VBG Total CO2 VBG O2 Saturation VBG Base Excess FiO2 Sodium Potassium Chloride Carbon Dioxide Anion Gap BUN Creatinine Est GFR (CKD-EPI 2020) Glucose Calcium Total Bilirubin AST ALT Alkaline Phosphatase Troponin I NT-Pro-B Natriuret Pep Total Protein Albumin Procalcitonin < 0.1 TSH Urine Color Urine Clarity Urine pH Ur Specific [place] Urine Protein Urine Ketones Urine Blood Urine Nitrite Urine Bilirubin Urine Urobilinogen Ur Leukocyte Esterase Urine RBC Urine WBC Ur Epithelial Cells Urine Crystals Urine Bacteria Urine Casts Urine Mucus Urine Other Ur Culture Indicated? Urine Glucose Urine Opiates Screen Urine Methadone Screen Ur Barbiturates Screen Ur Tricyclics Screen Ur Amphetamines Screen U Benzodiazepines Scrn Urine Cocaine Screen Ur THC Screen Ethyl Alcohol COVID-19 Source SARS-CoV-2 (PCR) Influenza Type A (PCR) Influenza Type B (PCR) RSV (PCR)
[2022-05-10 19:11] LABS: Troponin I 79 ng/L (<or=60)
[2022-05-10] MEDS: levETIRAcetam 1,000 MG in Normal Saline 100 ML 400 MG IVPB (23:53)
[2022-05-10] MEDS: PROPOFOL 1,000 MG/100 ML BTL 13.2 MG IV (23:58)
[2022-05-11] VITALS (126 sets, daily range): BP systolic 63–182; BP diastolic 28–159; PULSE 43–203; RESP 1–36; TEMP 36.8–37.9; O2SAT 88–100
[2022-05-11] MEDS: Budesonide/Formoterol 160/4.5 6 GM 60 PUFF INH IH ×3 (00:02→21:00)
[2022-05-11] MEDS: fentaNYL 100 MCG/2 ML VIAL 50 MCG IVP ×3 (01:20→21:30)
--- NOTE | 2022-05-11 02:38 | W.POCUS ---
Pocus Exam Limited Cardiac Exam DATE OF EXAM: 05/11/22 TIME OF EXAM: 00:30 PROVIDER THAT PERFORMED THE STUDY: Norman Wu IS THIS A REPEAT EXAM DURING THIS ENCOUNTER: no REASON FOR EXAM: Congestive heart failure and Dyspnea VISUALIZED STRUCTURES: four chambers, left atrium, left ventricle (normal LV size and systolic function, LVH), LVOT, right atrium, right ventricle (mild RV enlargement and RVH (1.1 cm), normal RV systolic fxn (TAPSE 21.4 mm, tricuspid s prime 16.6 cm/s)), aortic valve, mitral valve, Interventricular septum (enlarged IVS 1.42 cm) and IVC VIEW OBTAINED: Apical 4-Chamber, Parasternal long-axis, Parasternal short-axis and Subxiphoid PERTINENT FINDINGS/IMPRESSION: Plethoric IVC, RV dilation (moderate RV enlargement w/ RVH but normal RV systolic function) and Other Normal LV and RV systolic function w/ LVH, RVH and mild RV dilatation, pulmonary hypertension w/ estimated RVSP at least 38 mm DIFFERENTIAL DIAGNOSES: Normal LV and RV systolic function w/ mildly dilated RV and RVH w/ estimated PASP of at least 38 mm (difficult to accurately assess as CVP could not be reliably estimated as patient is on mechanical ventilation); peak TR velocity is 3.08. CVP estimated less than 10 cm based on RV inflow to TV velocity (E/e') ratio of 3.6. IVC is plethoric but dynamics not reliable d/t mechanical ventilation. INCIDENTAL FINDINGS: Avg C.O. 5.0, VTI 15.9 pre passive leg raise, avg CO 6.0, VTI 18.8 post passive leg raise, 10.1% increase. Exam complete
[2022-05-11] MEDS: PROPOFOL 1,000 MG/100 ML BTL 21.1 MG IV ×2 (04:37→08:02)
[2022-05-11 07:15] LABS: Abs Immature Grans 0.07 10^3/uL (0.0-0.06); Absolute Basophil Count 0.01 10^3/uL (0.0-0.2); Basophils % 0.1; HCT 32.1 % (36.0-46.0); HGB 9.1 g/dL (11.2-15.7); Immature Grans % 0.6; Lymphocytes % 2.7; MCH 25.5 pg (27.0-33.0); MCHC 28.3 % (32.0-36.0); MCV 90 fL (80-95); MPV 10.4 fL (8.0-11.0); Neutrophils % 86.6; Nucleated RBC 0.2 % (0.0-0.3); Platelet Count 233 10^3/uL (130-400); RBC 3.57 10^6/uL (3.93-5.22); RDW-SD 56.5 fL; WBC 12.06 10^3/uL (4.4-10.8)
[2022-05-11 07:17] LABS: Absolute Lymphocyte Count 0.33 10^3/uL (1.2-3.4); Absolute Monocyte Count 1.21 10^3/uL (0.1-0.8); Absolute Neutrophil Count 10.44 10^3/uL (1.2-6.7)
[2022-05-11 07:39] LABS: ALT 15 U/L (14-59); AST 15 U/L (15-37); Albumin 2.7 g/dL (3.4-5.0); Alkaline Phosphatase 47 U/L (46-116); Anion Gap -3.4 mmol/L (3-11); BUN 34 mg/dL (7-18); Bilirubin, Total 0.3 mg/dL (0.2-1.0); CO2 42.4 mmol/L (21.0-32.0); CREATININE 1.3 mg/dL (0.55-1.02); Calcium 8.5 mg/dL (8.5-10.1); Chloride 99 mmol/L (98-107); Estimated GFR 46.21 (mL/min/1.73m2); Glucose 102 mg/dL (74-106); Magnesium 2.3 mg/dL (1.8-2.4); PHOSPHORUS 3.6 mg/dL (2.6-4.7); Potassium 5.8 mmol/L (3.5-5.1); Sodium 138 mmol/L (136-145)
[2022-05-11] MEDS: predniSONE 20 MG TAB 40 MG PO (08:02)
[2022-05-11] MEDS: Furosemide 40 MG/4 ML VIAL IVP (08:02)
[2022-05-11] MEDS: Normal Saline Flush 10 ML SYR IVP ×2 (08:12→21:32)
--- NOTE | 2022-05-11 08:39 | DI.RAD_ITS ---
Exam(s) XR PORTABLE CHEST AP EXAM: XR PORTABLE CHEST AP CLINICAL HISTORY: F/u intubated patient TECHNIQUE: 2D digital imaging was performed of the chest. One image was obtained. An AP view was ob tained. COMPARISON: CR XR PORTABLE CHEST AP POST LINE from 05/10/2022 FINDINGS: MEDIASTINUM: Normal. HEART: Normal. PULMONARY VASCULATURE: Normal. LUNGS: There are low lung volumes with linear infiltrates in the lung bases which may represent atele ctasis. No focal consolidating infiltrates are seen. PLEURAL SPACE: No pleural effusion or pneumothorax. BONE:Within normal limits for the patient's age. OTHER FINDINGS:The tip of the endotracheal tube is located 4 cm above the misti. The tip of the rig ht IJ catheter is seen near the junction of the superior vena cava and right atrium. The tip of the nasogastric tube is seen in the stomach. IMPRESSION: 1. Low lung volumes with atelectasis or scarring in the lung bases. No focal consolidating infiltrat es. 2. Tubes and catheters as described above. DATA REPOSITORY: RADIATION DOSE DELIVERED:
--- NOTE | 2022-05-11 08:49 | W.PM.PROGNOT ---
Date of Service Date of service: 05/11/22 Time of Service: 08:49 Assessment and Plan Assessment and plan (1) Acute and chronic respiratory failure: Status: Acute Assessment and plan: In setting of COPD exacerbation as well as R-sided CHF. I am unable to tell re diastolic dysfunction based on the echo read. Intubated/sedated. Continue diuresis. Continue steroids, nebs. On empiric azithromycin. Wean O2 as tolerated. Will plan for extubation to BiPAP tomorrow. Await ABG/CXR. Qualifiers: Respiratory failure complication: hypoxia and hypercapnia Qualified Code(s): J96.21 - Acute and chronic respiratory failure with hypoxia; J96.22 - Acute and chronic respiratory failure with hypercapnia (2) COPD (chronic obstructive pulmonary disease): Status: Chronic Assessment and plan: As above Qualifiers: COPD type: COPD with acute exacerbation Qualified Code(s): J44.1 - Chronic obstructive pulmonary disease with (acute) exacerbation (3) Elevated troponin I level: Status: Acute Assessment and plan: Agree that this is likely Type 2 NSTEMI in setting of hypoxemia/respiratory failure/fluid overload. Echo yesterday: LVEF preserved; no wall motion abnormalities. Does have RV dilation on echo. (4) WENDY (acute kidney injury): Status: Acute Assessment and plan: Avoid IVF given fluid overload. MOnitor renal function and UOP while diuresing. (5) (HFpEF) heart failure with preserved ejection fraction: Status: Chronic Assessment and plan: as above (6) Seizure: Status: Suspected Assessment and plan: suspected based on a tongue laceration. Await EEG. Continue keppra. Seen by neurology. (7) DVT prophylaxis: Status: Acute Assessment and plan: sc enoxaparin (8) Discharge planning issues: Status: Acute Assessment and plan: Full code Keep in ICU Continues to require restraints. Total Critical Care Time 45 minutes. Subjective Subjective Interval history since last seen: Remains intubated. While on sedation with propofol, woke up, followed commands, responded to increase in dose of propofol. Getting an EEG currently. Exam Narrative Exam Narrative: General: Intubated, sedated, wakes up to verbal stimuli, tracks, follows commands; tremors in LUE spreading to RUE and RLE - however, still able to squeeze nurse's hand. HEENT: EOMI (tracking), MMM, ET and OG tubs in place Heart: RRR, tachycardic Lungs: CTAB on vent Abdomen: soft, nontender, nondistended Extremities: no edema BLEs, able to move all 4 extremities, BUEs in soft restraints Objective Last Vital Signs Temp 37.3 C 05/11/22 06:00 Pulse 98 H 05/11/22 06:00 Resp 14 05/11/22 08:16 BP 128/73 05/11/22 08:16 Pulse Ox 93 05/11/22 08:16 Laboratory Results - last 24 hr 05/10/22 05/10/22 05/10/22 06:52 08:45 09:40 WBC RBC Hgb Hct MCV MCH MCHC RDW Plt Count MPV Immature Gran % Neutrophils % Lymphocytes % Monocytes % Eosinophils % Basophils % Nucleated RBC % Absolute Neutrophils Absolute Lymphocytes Absolute Monocytes Absolute Eosinophils Absolute Basophils D-Dimer 874 H ABG Sample Site Right Brachial ABG pH 7.38 ABG pCO2 68 H* ABG pO2 71 L ABG HCO3 41 H ABG Total CO2 38 H ABG O2 Saturation 95 ABG Base Excess > 15 H VBG pH VBG pCO2 VBG pO2 VBG HCO3 VBG Total CO2 VBG O2 Saturation VBG Base Excess FiO2 50 Sodium Potassium Chloride Carbon Dioxide Anion Gap BUN Creatinine Est GFR (CKD-EPI 2020) Glucose Calcium Phosphorus Magnesium Total Bilirubin AST ALT Alkaline Phosphatase Troponin I Total Protein Albumin Procalcitonin Urine Color Urine Clarity Urine pH Ur Specific [place] Urine Protein Urine Ketones Urine Blood Urine Nitrite Urine Bilirubin Urine Urobilinogen Ur Leukocyte Esterase Urine RBC Urine WBC Ur Epithelial Cells Urine Crystals Urine Bacteria Urine Casts Urine Mucus Urine Other Ur Culture Indicated? Urine Glucose Urine Opiates Screen Urine Methadone Screen Ur Barbiturates Screen Ur Tricyclics Screen Ur Amphetamines Screen U Benzodiazepines Scrn Urine Cocaine Screen Ur THC Screen COVID-19 Source Nasopharynx SARS-CoV-2 (PCR) Negative Influenza Type A (PCR) Negative Influenza Type B (PCR) Negative RSV (PCR) Negative 05/10/22 05/10/22 05/10/22 09:51 09:51 09:51 WBC RBC Hgb Hct MCV MCH MCHC RDW Plt Count MPV Immature Gran % Neutrophils % Lymphocytes % Monocytes % Eosinophils % Basophils % Nucleated RBC % Absolute Neutrophils Absolute Lymphocytes Absolute Monocytes Absolute Eosinophils Absolute Basophils D-Dimer ABG Sample Site ABG pH ABG pCO2 ABG pO2 ABG HCO3 ABG Total CO2 ABG O2 Saturation ABG Base Excess VBG pH VBG pCO2 VBG pO2 VBG HCO3 VBG Total CO2 VBG O2 Saturation VBG Base Excess FiO2 Sodium Potassium Chloride Carbon Dioxide Anion Gap BUN Creatinine Est GFR (CKD-EPI 2020) Glucose Calcium Phosphorus Magnesium Total Bilirubin AST ALT Alkaline Phosphatase Troponin I 112 H* Total Protein Albumin Procalcitonin Urine Color Yellow Urine Clarity Clear Urine pH 7.5 Ur Specific [place] 1.020 Urine Protein 30 H Urine Ketones Negative Urine Blood Trace-intact H Urine Nitrite Negative Urine Bilirubin Negative Urine Urobilinogen 0.2 Ur Leukocyte Esterase Negative Urine RBC 3-5 H Urine WBC Negative Ur Epithelial Cells Few Urine Crystals Negative Urine Bacteria Few Urine Casts Negative Urine Mucus Trace Urine Other Rare Renal Ur Culture Indicated? No Urine Glucose 250 H Urine Opiates Screen Negative Urine Methadone Screen Negative Ur Barbiturates Screen Negative Ur Tricyclics Screen Negative Ur Amphetamines Screen Negative U Benzodiazepines Scrn Negative Urine Cocaine Screen Negative Ur THC Screen Negative COVID-19 Source SARS-CoV-2 (PCR) Influenza Type A (PCR) Influenza Type B (PCR) RSV (PCR) 05/10/22 05/10/22 05/10/22 12:00 12:20 12:20 WBC RBC Hgb Hct MCV MCH MCHC RDW Plt Count MPV Immature Gran % Neutrophils % Lymphocytes % Monocytes % Eosinophils % Basophils % Nucleated RBC % Absolute Neutrophils Absolute Lymphocytes Absolute Monocytes Absolute Eosinophils Absolute Basophils D-Dimer ABG Sample Site ABG pH ABG pCO2 ABG pO2 ABG HCO3 ABG Total CO2 ABG O2 Saturation ABG Base Excess VBG pH 7.41 VBG pCO2 68 H* VBG pO2 35 VBG HCO3 43 H VBG Total CO2 40 H VBG O2 Saturation 67 VBG Base Excess > 15 H FiO2 Sodium Potassium Chloride Carbon Dioxide Anion Gap BUN Creatinine Est GFR (CKD-EPI 2020) Glucose Calcium Phosphorus Magnesium Total Bilirubin AST ALT Alkaline Phosphatase Troponin I Cancelled 119 H* Total Protein Albumin Procalcitonin Urine Color Urine Clarity Urine pH Ur Specific [place] Urine Protein Urine Ketones Urine Blood Urine Nitrite Urine Bilirubin Urine Urobilinogen Ur Leukocyte Esterase Urine RBC Urine WBC Ur Epithelial Cells Urine Crystals Urine Bacteria Urine Casts Urine Mucus Urine Other Ur Culture Indicated? Urine Glucose Urine Opiates Screen Urine Methadone Screen Ur Barbiturates Screen Ur Tricyclics Screen Ur Amphetamines Screen U Benzodiazepines Scrn Urine Cocaine Screen Ur THC Screen COVID-19 Source SARS-CoV-2 (PCR) Influenza Type A (PCR) Influenza Type B (PCR) RSV (PCR) 05/10/22 05/10/22 05/11/22 12:20 18:30 05:10 WBC RBC Hgb Hct MCV MCH MCHC RDW Plt Count MPV Immature Gran % Neutrophils % Lymphocytes % Monocytes % Eosinophils % Basophils % Nucleated RBC % Absolute Neutrophils Absolute Lymphocytes Absolute Monocytes Absolute Eosinophils Absolute Basophils D-Dimer ABG Sample Site ABG pH ABG pCO2 ABG pO2 ABG HCO3 ABG Total CO2 ABG O2 Saturation ABG Base Excess VBG pH VBG pCO2 VBG pO2 VBG HCO3 VBG Total CO2 VBG O2 Saturation VBG Base Excess FiO2 Sodium 138 Potassium 5.8 H Chloride 99 Carbon Dioxide 42.4 H Anion Gap -3.4 L BUN 34 H Creatinine 1.3 H Est GFR (CKD-EPI 2020) 46.21 Glucose 102 Calcium 8.5 Phosphorus 3.6 Magnesium 2.3 Total Bilirubin 0.3 AST 15 ALT 15 Alkaline Phosphatase 47 Troponin I 79 H* Total Protein 6.0 L Albumin 2.7 L Procalcitonin < 0.1 Urine Color Urine Clarity Urine pH Ur Specific [place] Urine Protein Urine Ketones Urine Blood Urine Nitrite Urine Bilirubin Urine Urobilinogen Ur Leukocyte Esterase Urine RBC Urine WBC Ur Epithelial Cells Urine Crystals Urine Bacteria Urine Casts Urine Mucus Urine Other Ur Culture Indicated? Urine Glucose Urine Opiates Screen Urine Methadone Screen Ur Barbiturates Screen Ur Tricyclics Screen Ur Amphetamines Screen U Benzodiazepines Scrn Urine Cocaine Screen Ur THC Screen COVID-19 Source SARS-CoV-2 (PCR) Influenza Type A (PCR) Influenza Type B (PCR) RSV (PCR) 05/11/22 05/11/22 05:10 05:10 WBC 12.06 H RBC 3.57 L Hgb 9.1 L Hct 32.1 L MCV 90 MCH 25.5 L MCHC 28.3 L RDW 18.0 H Plt Count 233 MPV 10.4 Immature Gran % 0.6 Neutrophils % 86.6 Lymphocytes % 2.7 Monocytes % 10.0 Eosinophils % 0.0 Basophils % 0.1 Nucleated RBC % 0.2 Absolute Neutrophils 10.44 H Absolute Lymphocytes 0.33 L Absolute Monocytes 1.21 H Absolute Eosinophils 0.00 Absolute Basophils 0.01 D-Dimer ABG Sample Site ABG pH ABG pCO2 ABG pO2 ABG HCO3 ABG Total CO2 ABG O2 Saturation ABG Base Excess VBG pH VBG pCO2 VBG pO2 VBG HCO3 VBG Total CO2 VBG O2 Saturation VBG Base Excess FiO2 Sodium Potassium Chloride Carbon Dioxide Anion Gap BUN Creatinine Est GFR (CKD-EPI 2020) Glucose Calcium Phosphorus Cancelled Magnesium Total Bilirubin AST ALT Alkaline Phosphatase Troponin I Total Protein Albumin Procalcitonin Urine Color Urine Clarity Urine pH Ur Specific [place] Urine Protein Urine Ketones Urine Blood Urine Nitrite Urine Bilirubin Urine Urobilinogen Ur Leukocyte Esterase Urine RBC Urine WBC Ur Epithelial Cells Urine Crystals Urine Bacteria Urine Casts Urine Mucus Urine Other Ur Culture Indicated? Urine Glucose Urine Opiates Screen Urine Methadone Screen Ur Barbiturates Screen Ur Tricyclics Screen Ur Amphetamines Screen U Benzodiazepines Scrn Urine Cocaine Screen Ur THC Screen COVID-19 Source SARS-CoV-2 (PCR) Influenza Type A (PCR) Influenza Type B (PCR) RSV (PCR) Multi-Disciplinary Checklist Lines/Tubes CENTRAL LINE: yes, Central Line Day#: 1 Note: inserted 05/10/22 ARTERIAL LINE: no MUNOZ: yes, Munoz Day#: 1 Note: inserted 05/10 ENDOTRACHEAL TUBE: yes, Endotracheal Tube Day#: 1 Sedation: yes, Sedation Vacation: yes Head of Bed@30 degrees: yes Spontaneous Breathing Trial: yes ICU Maintenance GLUCOSE 140-180mg/dL: no, Reason/Intervention: TF being initiated NUTRITION AT GOAL: no, Reason/Intervention: TF being initiated PRESSURE ULCER: no RESTRAINTS: yes, Reviewed Necessity: Yes ANTIBIOTICS(if yes, consider Stewardship): Yes Social Issues FAMILY UPDATED: yes PT/OT: no, Reason/Intervention: not clinically appropriate GOALS/DISPOSITION/ADULT AND PEDIATRIC NEUROLOGIST: yes CODE STATUS: Full Prophylaxis DVT PROPHYLAXIS: yes GI PROPHYLAXIS: yes, Indication: Not yet on tube feeding; NPO and intubated
[2022-05-11 09:31] LABS: HCO3 43 mmol/L (22-26); pH 7.36 (7.35-7.45); pO2 74 mmHg (80-105); sO2 94 % (95-98); tCO2 41 mmol/L (23-27)
[2022-05-11 09:32] LABS: BE > 15 mmol/L (-2-3)
[2022-05-11 09:33] LABS: FIO2 50 %; Site Right Radial
[2022-05-11 09:34] LABS: pCO2 76 mmHg (35-45)
[2022-05-11] MEDS: Albuterol/Ipratropium 3 ML UPD VIAL UPD (09:40)
--- NOTE | 2022-05-11 09:41 | W.NUTCONSULT ---
Date of service: 05/11/22 Time of Service: 09:41 Nutritional Consult ASSESSMENT: Елена was intubated secondary to respiratory failure and admitted to ICU early this morning with WENDY. PMH: COPD, CHF, HTN, obesity. BUN/Cre/K elevated. Meds include propofol. Order to start NG feeding: Jevity 1.2 with goal rate of 30 cc/hour, flush 100 cc q 4 hours will provide total of 864 calories, 39 g protein, 1146 ml fluid. Estimated Needs: (BEE x 1.2-1.5): 2256-2354 kcal, 64-70 g protein, 2000 ml fluid (based on adjusted body weight of 120 lbs). Above enteral feeding will provide 72 % of calorie needs, 60 % of protein needs and 50% of fluid needs. NUTRITIONAL DIAGNOSIS: inability to take nutrient by mouth secondary to intubation, reliance on enteral feeding INTERVENTION: Recommend hold off on tube feeding until electrolytes stable and kidney function improved. Start enteral feeding if intubation expected > 3 days - Recommend continue with order of Jevity 1.2 initial goal rate 30 cc/hour, flush 100 cc q 4 hours (when IV fluids discontinued, will increase to meet 100% of needs) MONITORING AND EVALUATION: check residuals q 4 hours, hold for 4 hours if > 100 cc Time Spent in Nutritional Counseling and Treatment: 0
[2022-05-11 10:02] LABS: Potassium 5.5 mmol/L (3.5-5.1)
[2022-05-11] MEDS: Metoprolol 5 MG/5 ML VIAL IVP (10:27)
[2022-05-11] MEDS: Metoprolol 5 MG/5 ML VIAL 2.5 MG IVP (10:30)
--- NOTE | 2022-05-11 10:30 | RT.EKG_ITS ---
APPROVED REPORT Exam: Resting ECG Reason for Exam: SVT vs A-fib Patient Location: I HR:176 bpm ECG Measurements Heart Rate 176 AXIS LA [id number] P [id number] QRSd 72 QRS -35 QT 256 T 21 QTc 438 Conclusion Atrial fibrillation with rapid V-rate...A-rate 286 Low voltage, extremity leads...all extremity leads <0.5mV Repolarization abnormality, prob rate related...ST dep, T neg, tachycardia
--- NOTE | 2022-05-11 10:39 | PDOC.EEG_ITS ---
Neurology EEG EEG: [facility] Department of Neurology INPATIENT EEG REPORT Date of Recordin05/11/22 Interpreting Physician: Dr. Lala Rand Reason for study: Ms. Hernandez was admitted with respiratory failure with concern for pre-hospital seizure. Currently intubated on propofol drip. Current Medications: Current Medications Acetaminophen (Acetaminophen 650 Mg Supp) 650 mg AK Q4H PRN PRN Budesonide/Formoterol Fumarate (Budesonide/Formoterol 160/4.5 6 Gm 60 Puff Inh) 2 puff IH BID [facility] Last Admin: 05/11/22 09:58 Dose: 2 puff Chlorhexidine Gluconate (Chlorhexidine Gluconate 0.12% Mouthwash 118 Ml Btl) 0 ml MM DIRECTED [facility] Device (Inhaler, Assist Device) 1 each MC DIRECTED [facility] Dimethicone/Zinc Oxide (Adriana Protect Cream 142 Gm Tube) 0 gm TP PRN PRN Enoxaparin Sodium (Enoxaparin 40 Mg/0.4 Ml Syr) 40 mg SC Q24H [facility] Last Admin: 05/10/22 14:52 Dose: 40 mg Fentanyl (Fentanyl 100 Mcg/2 Ml Vial) 50 mcg IVP Q2H PRN PRN Last Admin: 05/11/22 08:11 Dose: 50 mcg Furosemide (Furosemide 40 Mg/4 Ml Vial) 40 mg IVP DAILY [facility] Last Admin: 05/11/22 08:02 Dose: 40 mg Sodium Chloride (Saline 500ml Bag) 500 mls @ 0 mls/hr IV PRN PRN Levetiracetam 1,000 mg/ Sodium (Chloride) 110 mls @ 400 mls/hr IVPB Q12H [facility] Last Infusion: 05/11/22 02:48 Dose: Infused Azithromycin 500 mg/ Sodium (Chloride) 250 mls @ 250 mls/hr IVPB Q24H [facility] Last Infusion: 05/10/22 17:30 Dose: Infused Propofol (Diprivan) 1,000 mg in 100 mls @ 10.236 mls/hr IV INFUSION [facility]; Protocol Last Admin: 05/11/22 08:02 Dose: 41.23 mcg/kg/min, 21.1 mls/hr IV Miscellaneous Supplies (Iv Access) 1 each IV DIRECTED [facility] Ipratropium [place] (Ipratropium 0.5 Mg/2.5 Ml Upd Vial) 0.5 mg UPD Q6H ESDRAS Levalbuterol HCl (Levalbuterol 1.25 Mg/3 Ml Upd Vial) 1.25 mg UPD Q6H PRN Metoprolol Tartrate (Metoprolol 5 Mg/5 Ml Vial) 5 mg IVP NOW ONE Stop: 05/11/22 10:26 Metoprolol Tartrate (Metoprolol 5 Mg/5 Ml Vial) 5 mg IVP Q6H PRN PRN Metoprolol Tartrate (Metoprolol 5 Mg/5 Ml Vial) 5 mg IVP Q6H ESDRAS Metoprolol Tartrate (Metoprolol 5 Mg/5 Ml Vial) 2.5 mg IVP NOW ONE Stop: 05/11/22 10:32 Mineral Oil/White Petrolatum (Lacri-Lube 3.5 Gm Tube) 3.5 gm OU BID [facility] Nicotine (Nicotine 21 Mg/24 Hr Patch) 21 mg TD DAILY PRN PRN Pantoprazole Sodium (Pantoprazole 40 Mg Vial) 40 mg IVP Q24H [facility] Last Admin: 05/10/22 16:04 Dose: 40 mg Prednisone (Prednisone 20 Mg Tab) 40 mg PO DAILY [facility] Last Admin: 05/11/22 08:02 Dose: 40 mg Sodium Chloride (Normal Saline Flush 10 Ml Syr) 0 ml IVP PRN PRN Last Admin: 05/11/22 08:12 Dose: 20 ml Sodium Zirconium Cyclosilicate (Sodium Zirconium Cyclosilicate 10 Gm Pkt) 10 gm NG TID@0630,1430,2230 [facility] Stop: 05/13/22 06:31 METHODS: A 21 channel digitized electroencephalogram was performed in the [facility] Med/Surg Floor or ICU. The 10/20 international system of electrode placement was used and bipolar and referential electrode montages were recorded. In addition to EEG the patient was monitored for EKG and lateral/vertical eye movements. Activation procedures of photic stimulation and hyperventilation were performed if applicable. Video was used during activation procedures and during events where applicable. The duration of the recording was ~45 minutes. DESCRIPTION OF EEG: The patient was noted to be asleep only during the recording. There was generalized slowing with diffuse low-amplitude beta and what appeared to be intermittent symmetrical sleep spindles with rare vertex waves. There was no epileptiform activity. Activating Procedures: Photic stimulation and hyperventilation were not performed. EKG: EKG revealed normal sinus rhythm until the end in which it was becoming somewhat irregular. INTERPRETATION: This EEG is consistent with medicinal sedation. There was no epileptiform activity or focal slowing. PRIOR EEG: none CLINICAL CORRELATION: No focal regions of cerebral dysfunction or epileptiform activity was present. Epilepsy remains a clinical diagnosis and a normal EEG does not rule out epilepsy. Clinical correlation is advised. Lala Rand MD
--- NOTE | 2022-05-11 10:39 | W.EVENT ---
Date of service: 05/11/22 Time of Service: 10:39 Event Note: Responded to staff emergency called overhead. Nursing notes that the patient's HR had gone into low 200s shortly after receiving albuterol nebulizer as well as symbicort. Of note, the patient has a documented h/o of SVT. She is normally on toprol XL 200 mg PO daily and on xopenex. Her HR responded to bolus of IV metoprolol 5 mg followed by 2.5 with HR now down to 150s-160s. BP 64/47, MAP 51. IVF - LR 250 cc bolus infusing. EKG pending, but by monitor it looks like Afib w/ RVR. Will trial cardizem bolus 5 mg IV, then drip at low rates. Backing off of propofol. If vasopressor support needed, would choose phenylephrine given rapid HR. Time Spent with Patient Time spent in critical care(minutes): 45 Time Spent Included: Chart review, Documenting critically ill care, Time at immediate bedside and Discussing critically ill care with other medical staff
[2022-05-11] MEDS: Lactated Ringers 250 ML 999 ML IV (10:45)
[2022-05-11] MEDS: dilTIAZem 25 MG/5 ML VIAL 5 MG IVP (10:47)
--- NOTE | 2022-05-11 11:00 | RT.EKG_ITS ---
APPROVED REPORT Exam: Resting ECG Reason for Exam: Rhythm change Patient Location: I HR:100 bpm ECG Measurements Heart Rate 100 AXIS AL 156 P 57 QRSd 86 QRS -26 QT 301 T 21 QTc 389 Conclusion Sinus tachycardia...rate> 99 Borderline left axis deviation...QRS axis (-15,-29) Low voltage, extremity leads...all extremity leads <0.5mV
[2022-05-11 11:05] LABS: Troponin I < 50 ng/L (<or=60)
[2022-05-11] MEDS: levETIRAcetam 1,000 MG in Normal Saline 100 ML 400 MG IVPB ×2 (11:26→21:32)
[2022-05-11] MEDS: Lacri-Lube 3.5 GM TUBE OU ×2 (11:27→21:00)
[2022-05-11] MEDS: Metoprolol 50 MG TAB PO ×2 (11:43→17:58)
[2022-05-11] MEDS: Levalbuterol 1.25 MG/3 ML UPD VIAL UPD ×2 (12:37→17:51)
[2022-05-11] MEDS: Ipratropium 0.5 MG/2.5 ML UPD VIAL UPD ×3 (12:37→23:48)
[2022-05-11] MEDS: PROPOFOL 1,000 MG/100 ML BTL 21.102 MG IV (12:47)
[2022-05-11] MEDS: Lactated Ringers 250 ML IV ×3 (13:12→23:20)
[2022-05-11 14:24] LABS: Troponin I < 50 ng/L (<or=60)
[2022-05-11] MEDS: Enoxaparin 40 MG/0.4 ML SYR SC (15:35)
[2022-05-11] MEDS: Sodium Zirconium Cyclosilicate 10 GM PKT NG ×2 (15:36→23:48)
[2022-05-11] MEDS: Pantoprazole 40 MG VIAL IVP (15:36)
--- NOTE | 2022-05-11 15:58 | W.PM.PROGNOT ---
Date of Service Date of service: 05/11/22 Time of Service: 15:58 Assessment and Plan Assessment and plan (1) Altered mental status: Status: Acute Assessment and plan: Patient with AMS in setting of hypoxemia and hypercapnea presumed to be secondary to CHF exacerbation. She was noted to have a tongue laceration on exam and thus concerns raised for possible seizure activity prior to arrival. Now with diffuse twtiching, subtle myoclonus - captured on EEG with no epileptiform activity - so likely metabolic. Limited exam due to intubation and sedating medications. Continue LEV 1000mg BID for now. Post-extubation, consider brain MRI pending how she does/other findings. Suspect that she will likely not need levetiracetam long-term, but will continue to follow. Subjective Subjective Interval history since last seen: SVT vs afib with RVR this am. She was briefly following commands this am. She has been having some minor diffuse twitching all day attributed to hypercapnia. EEG this am with no epileptiform activity and captured these movements. Exam Narrative Exam Narrative: Physical Exam: Constitutional: patient intubated on proprofol drip; briefly opened eyes to noxious stimuli Neck: Supple, no meningismus CV: RRR Resp: CTAB Abd: Soft, nontender, nondistended, +BS Extrem: mild bilateral LE edema; no cyanosis, no obvious limb injuries Neuro: MS/Language/Speech: intubated, does not respond to voice but did open eyes to noxious stimuli CN: PERRL, does squint to light; doll's eye absent Sensori-Motor: No response to noxious stimuli in any extremity. No spontaneous movements Reflexes: hyporeflexic throughout today; several beats of clonus in L ankle, none on R; toes down going; Coordination: cannot assess Gait: cannot assess Objective Last Vital Signs Temp 99.3 F 05/11/22 12:00 Pulse 75 05/11/22 13:01 Resp 14 05/11/22 14:27 BP 96/61 L 05/11/22 14:27 Pulse Ox 95 05/11/22 14:27 Laboratory Results - last 24 hr 05/10/22 05/10/22 05/11/22 12:00 18:30 05:10 WBC RBC Hgb Hct MCV MCH MCHC RDW Plt Count MPV Immature Gran % Neutrophils % Lymphocytes % Monocytes % Eosinophils % Basophils % Nucleated RBC % Absolute Neutrophils Absolute Lymphocytes Absolute Monocytes Absolute Eosinophils Absolute Basophils ABG Sample Site ABG pH ABG pCO2 ABG pO2 ABG HCO3 ABG Total CO2 ABG O2 Saturation ABG Base Excess FiO2 Sodium 138 Potassium 5.8 H Chloride 99 Carbon Dioxide 42.4 H Anion Gap -3.4 L BUN 34 H Creatinine 1.3 H Est GFR (CKD-EPI 2020) 46.21 Glucose 102 Calcium 8.5 Phosphorus 3.6 Magnesium 2.3 Total Bilirubin 0.3 AST 15 ALT 15 Alkaline Phosphatase 47 Troponin I Cancelled 79 H* Total Protein 6.0 L Albumin 2.7 L 05/11/22 05/11/22 05/11/22 05:10 05:10 09:25 WBC 12.06 H RBC 3.57 L Hgb 9.1 L Hct 32.1 L MCV 90 MCH 25.5 L MCHC 28.3 L RDW 18.0 H Plt Count 233 MPV 10.4 Immature Gran % 0.6 Neutrophils % 86.6 Lymphocytes % 2.7 Monocytes % 10.0 Eosinophils % 0.0 Basophils % 0.1 Nucleated RBC % 0.2 Absolute Neutrophils 10.44 H Absolute Lymphocytes 0.33 L Absolute Monocytes 1.21 H Absolute Eosinophils 0.00 Absolute Basophils 0.01 ABG Sample Site Right Radial ABG pH 7.36 ABG pCO2 76 H* ABG pO2 74 L ABG HCO3 43 H ABG Total CO2 41 H ABG O2 Saturation 94 L ABG Base Excess > 15 H FiO2 50 Sodium Potassium Chloride Carbon Dioxide Anion Gap BUN Creatinine Est GFR (CKD-EPI 2020) Glucose Calcium Phosphorus Cancelled Magnesium Total Bilirubin AST ALT Alkaline Phosphatase Troponin I Total Protein Albumin 05/11/22 05/11/22 05/11/22 09:50 09:50 13:56 WBC RBC Hgb Hct MCV MCH MCHC RDW Plt Count MPV Immature Gran % Neutrophils % Lymphocytes % Monocytes % Eosinophils % Basophils % Nucleated RBC % Absolute Neutrophils Absolute Lymphocytes Absolute Monocytes Absolute Eosinophils Absolute Basophils ABG Sample Site ABG pH ABG pCO2 ABG pO2 ABG HCO3 ABG Total CO2 ABG O2 Saturation ABG Base Excess FiO2 Sodium Potassium 5.5 H Chloride Carbon Dioxide Anion Gap BUN Creatinine Est GFR (CKD-EPI 2020) Glucose Calcium Phosphorus Magnesium Total Bilirubin AST ALT Alkaline Phosphatase Troponin I < 50 < 50 Total Protein Albumin
--- NOTE | 2022-05-11 16:31 | INITIAL_ITS ---
- If Service Date Differs Date of service: 05/11/22 Time of Service: 16:31 Care Management Initial Assess REASON FOR HOSPITALIZATION:: hypoxemic/hypercarbic/resp failure, seizure PAST MEDICAL HISTORY/PAST SURGICAL HISTORY:: All Active Problems. Leukocytosis (Acute). Hyperkalemia (Acute). CHF exacerbation (Acute). Acute on chronic respiratory acidosis (Acute). Respiratory failure with hypoxia and hypercapnia (Acute). WENDY (acute kidney injury) (Acute). Elevated troponin I level (Acute). Altered mental status (Acute). Hypercarbia (Acute). Acidemia (Acute). SOB (shortness of breath) (Acute). Hypercarbia (Acute). COPD exacerbation (Acute). Acute and chronic respiratory failure (Acute). Vaginal bleeding (Acute). Hyponatremia (Acute). Pulmonary hypertension (Chronic). Hypoxia (Chronic). (HFpEF) heart failure with preserved ejection fraction (Chronic). Anxiety (Chronic). Dyspnea (Acute). Acute anemia (Acute). Postmenopausal bleeding (Acute). Dyspnea on exertion (Acute). S/P left inguinal hernia repair (Acute). 01/21/19 Dr Odette Cormier, left. Left inguinal hernia (Acute). Incarcerated inguinal hernia, unilateral (Acute). Small bowel obstruction (Acute). Dehydration (Acute). Hypertension (Chronic). Change in mental status (Acute). Cardiomyopathy (Acute). Iron deficiency anemia due to chronic blood loss (Chronic). Chronic bronchitis with COPD (chronic obstructive pulmonary disease) (Acute). Alcohol abuse (Acute). COPD (chronic obstructive pulmonary disease) (Chronic). Medical History. Alcoholic gastritis. Former smoker. Hyponatremia. Mood disorder with psychosis. Neck pain on right side. Palliative care patient. Pneumonia. Post-menopausal bleeding. Pulmonary hypertension. Respiratory failure with hypoxia. Uterine mass. Not candidate for surgery at [facility] or [facility] [place], [place].08/10/21. Had partial uterine artery embolization. Unable to complete 2/2 hypoxia. Surgical History. EGD - MAC (07/04/16) PREVIOUS FUNCTIONAL STATUS/SOCIAL/FAMILY SUPPORTS:: Елена lives in a single family home with her Osmani and daughter Evonne in [place]. Osmani has 2 other children by a previous marriage. 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 She has COPD and emphysema (per patient) and uses home oxygen at 2L/min. Елена receives no additional community services and is independent with ADLs at baseline. She continues to drive, but rarely, she reported. CURRENT FUNCTIONAL STATUS:: Deepthi is currently intubated. Her RN was talking with her daughter on the phone when CM was checking in at the ICU. Her family is being updated by nursing regularly. CM will continue to follow. ADVANCE DIRECTIVES:: On file. Daughter, Evonne HCA. , Osmani, listed as alternate HCA. Has patient been provided with info about the portal/API?: No Did the patient sign up for the portal?: No CODE STATUS:: Full Code INSURANCE COVERAGE / FINANCIAL ISSUES:: [facility] MCR replacement CURRENT HOME/COMMUNITY SERVICES/EQUIPMENT:: HH RN, Home O2 through [facility] PRIMARY CARE PHYSICIAN:: Hardy Eagle POTENTIAL DISCHARGE NEEDS:: Follow up with PCP and plan of care, resumption of HH services. PATIENT/FAMILY EDUCATION NEEDS:: Review of discharge instructions, medications, limitations, activity, Ask Me Three ANTICIPATED BARRIERS TO DISCHARGE:: None. TRANSPORTATION:: Via private vehicle by family. PLAN:: Елена is being closely monitored at ICU level of care. She will likely be discharged home when medically cleared by MD, with a resumption of HH RN. She will follow up with her PCP and plan of care and transport with family. CM will assess and support identified discharge needs.
[2022-05-11] MEDS: AZITHROMYCIN 500 MG in Normal Saline 250 ML 250 MG IVPB (16:36)
[2022-05-11] MEDS: PROPOFOL 1,000 MG/100 ML BTL 19.96 MG IV (21:50)
[2022-05-11 22:57] LABS: Legionella Ag Detection Urine Negative (Negative)
[2022-05-12] VITALS (126 sets, daily range): BP systolic 59–168; BP diastolic 28–98; PULSE 51–175; RESP 7–42; TEMP 36.5–37.4; O2SAT 89–100
[2022-05-12] MEDS: Metoprolol 50 MG TAB PO (00:52)
[2022-05-12] MEDS: Metoprolol 5 MG/5 ML VIAL IVP ×2 (01:23→09:49)
[2022-05-12] MEDS: fentaNYL 100 MCG/2 ML VIAL 50 MCG IVP (01:24)
[2022-05-12] MEDS: Lactated Ringers 1,000 ML 150 ML IV ×2 (01:45→06:05)
--- NOTE | 2022-05-12 02:00 | DI.RAD_ITS ---
Exam(s) XR PORTABLE CHEST AP EXAM: XR PORTABLE CHEST AP CLINICAL HISTORY: vented pt TECHNIQUE: 2D digital imaging was performed of the chest. Images were obtained. PA and lateral v iews were obtained. COMPARISON: CR XR PORTABLE CHEST AP from 05/11/2022 FINDINGS: MEDIASTINUM: Normal. HEART: Mild cardiomegaly. PULMONARY VASCULATURE: Normal. LUNGS: Mild pulmonary opacities particularly in the left lung base. PLEURAL SPACE: There is a question of a left pleural effusion. No right pleural effusion. No pneumo thorax. BONE:Within normal limits for the patient's age. OTHER FINDINGS:The tip of the endotracheal tube is 4.5 cm above the misti. The nasogastric tube pas ses into the stomach. The tip of the right IJ catheter is seen in the right atrium. IMPRESSION: Bilateral pulmonary opacities. Pneumonia cannot be excluded. DATA REPOSITORY: RADIATION DOSE DELIVERED:
[2022-05-12 02:25] LABS: HCO3 (Venous) 41 mmol/L (23-28); O2 Sat (Venous) 69 %; TCO2 (Venous) 39 mmol/L (24-29); pH (Venous) 7.36 (7.31-7.41); pO2 (Venous) 39 mmHg
[2022-05-12 02:27] LABS: BE (Venous) > 15 mmol/L (-2-3); Lactate 1.2 mmol/L (0.6-1.4); pCO2 (Venous) 74 mmHg (41-51)
[2022-05-12 02:28] LABS: Abs Immature Grans 0.32 10^3/uL (0.0-0.06); Absolute Basophil Count 0.02 10^3/uL (0.0-0.2); Absolute Lymphocyte Count 0.69 10^3/uL (1.2-3.4); Absolute Monocyte Count 1.63 10^3/uL (0.1-0.8); Absolute Neutrophil Count 13.68 10^3/uL (1.2-6.7); Basophils % 0.1; HCT 34.3 % (36.0-46.0); HGB 9.8 g/dL (11.2-15.7); Lymphocytes % 4.2; MCH 25.8 pg (27.0-33.0); MCHC 28.6 % (32.0-36.0); MCV 90 fL (80-95); MPV 9.5 fL (8.0-11.0); Neutrophils % 83.7; Nucleated RBC 0.2 % (0.0-0.3); Platelet Count 291 10^3/uL (130-400); RDW 18.4 % (11.7-14.6); WBC 16.34 10^3/uL (4.4-10.8)
[2022-05-12] MEDS: Normal Saline Flush 10 ML SYR IVP ×6 (02:38→17:25)
[2022-05-12] MEDS: PROPOFOL 1,000 MG/100 ML BTL 25.59 MG IV ×2 (02:38→06:33)
[2022-05-12 02:39] LABS: Hypochromasia 1+
--- NOTE | 2022-05-12 02:40 | DI.VRAD_ITS ---
PROCEDURE INFORMATION: Exam: XR Chest Exam date and time: 05/12/2022 2:04 AM Age: 61 years old Clinical indication: Other: Vented PT TECHNIQUE: Imaging protocol: Radiologic exam of the chest. Views: 1 view. COMPARISON: CR XR PORTABLE CHEST AP 05/11/2022 8:20 AM FINDINGS: Endotracheal tube tip 5 cm above the misti. Enteric tube in the stomach. Right IJ central venous catheter in the right atrium approximately 4 cm below the cavoatrial junction Lungs: Left basilar consolidation. Mild interstitial opacities Pleural spaces: Question left pleural effusion. No pneumothorax. Heart/Mediastinum: Moderate cardiomegaly. Bones/joints: Unremarkable. IMPRESSION: Line and tubes as described Left basilar consolidation question left pleural fluid Dictated and Authenticated by: Angelo Haynes MD. Ordering:FLOYD Bronson MD
[2022-05-12 02:43] LABS: Magnesium 2.1 mg/dL (1.8-2.4)
[2022-05-12 02:48] LABS: Anion Gap -2.7 mmol/L (3-11); BUN 31 mg/dL (7-18); CO2 41.7 mmol/L (21.0-32.0); CREATININE 1.3 mg/dL (0.55-1.02); Calcium 8.3 mg/dL (8.5-10.1); Chloride 97 mmol/L (98-107); Estimated GFR 46.21 (mL/min/1.73m2); Glucose 122 mg/dL (74-106); Potassium 5.5 mmol/L (3.5-5.1); Sodium 136 mmol/L (136-145); Troponin I 54 ng/L (<or=60)
[2022-05-12] MEDS: dilTIAZem 125 MG in Normal Saline 100 ML IV (03:30)
[2022-05-12] MEDS: methylPREDNISolone SUCC 125 MG VIAL IVP (03:59)
--- NOTE | 2022-05-12 04:21 | W.PM.PROGNOT ---
Date of Service Date of service: 05/12/22 Time of Service: 04:21 Assessment and Plan Assessment and plan (1) PAF (paroxysmal atrial fibrillation): Start date: 05/11/22 Status: Acute Assessment and plan: This is 61-year-old lady with paroxysmal atrial fibrillation with a history of tacky arrhythmia on metoprolol which was restarted but was not responding to Lopressor orally and then IV for tachycardic rhythm which had sudden onset during the evening. Her blood pressure has been low and she eventually did require epinephrine infusion which has supported blood pressure allowing some treatment. Eventually we did initiate IV diltiazem and her heart rate is beginning to slow from the 160 range in the 130 range but her blood pressure is also continuing to be problematic. She is on IV fluids with some response. She is becoming more hypoxic with her slower heart rate with ventilation being modified. (2) Respiratory failure with hypoxia and hypercapnia: Status: Acute Assessment and plan: Patient is intubated and on mechanical ventilation which will be adjusted for hypoxemia and CO2 retention which is worsening by VBG. Respiratory therapy will be consulted and adjust ventilation settings. (3) Pneumonia: Start date: 05/12/22 Assessment and plan: Patient is intubated and on mechanical ventilation which will be adjusted for hypoxemia and CO2 retention which is worsening by VBG. Respiratory therapy will be consulted and adjust ventilation settings. (4) COPD exacerbation: Status: Acute Assessment and plan: Patient CO2 is rising and ventilation settings will be adjusted. Add Solu-Medrol high-dose for COPD exacerbation with patient's respiratory status worsening. Continue mechanical ventilation and support. 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 Watch for fluid overload and IV Lasix if needed though this is being avoided presently with her hypotension. Subjective Subjective Patient reports: other (Intubated and sedated) Interval history since last seen: This is a 61-year-old lady with end-stage severe lung disease who has been intubated for hypercapnic respiratory failure and began to have lower blood pressures with blood pressures already soft during the day and a tachycardic rhythm which appeared to be atrial fibrillation. She had metoprolol ordered orally through her OG tube being intubated and IV if needed but blood pressure does limit this treatment. During the night she was given fluid boluses of lactated Ringer's and started on lactated Ringer's at 150 cc an hour to help support her blood pressure but she still was having hypotension with norepinephrine infusion initiated. Blood pressures were improved on pressor agent but her atrial fibrillation and rapid rate persisted. I did call the daughter, Evonne who stated that she has been having long discussion with mother about CODE STATUS and she would prefer to be a DNR if not responding to aggressive therapy and things were not going well with aggressive therapy. I did change patient's status to a DNR and she remains intubated. Imaging and lab were performed and patient appears to have a progressive pneumonia with slightly fluid overloaded lungs but not white out and not pulmonary edema. It appears she could tolerate more fluids but this needs to be done gently with her cardiomyopathy and CHF. Patient was not not talking throughout my evaluation and did have discussions with the nurse several times during the night modified medical therapy as above. Critical care ICU time spent with patient was greater than 90 minutes discussing case with nursing staff and consulting with pharmacy as well as discussing case with family and adjusting medical therapy with time spent in the ICU accomplishing above task and reevaluating patient. Exam Narrative Exam Narrative: General: Patient is intubated and nonresponsive. HEENT: Normocephalic with coarsened facial features, eyes with pupils equal react light symmetrically, extraocular movement intact and sclera anicteric. Oropharynx with dry mucosa and OG tube in place with patient having endotracheal intubation as well. Neck: Supple without JVD. Heart: Distant heart sounds with tachycardic rate slightly irregular but no appreciable murmur or gallop. Lungs: Bronchovesicular breath sounds diffusely with inspirations ventilated and no focalizing rales or rhonchi with fairly clear lung camejo and shallow breath. Abdomen: Obese contour and soft. Extremity: Without pitting edema or cyanosis. Skin: Moist, warm and pale. Neuro: Patient obtunded. Objective Last Vital Signs Temp 36.5 C 05/12/22 04:00 Pulse 150 H 05/12/22 01:53 Resp 39 H 05/12/22 01:30 BP 91/72 L 05/12/22 01:30 Pulse Ox 97 05/12/22 01:30 Laboratory Results - last 24 hr 05/11/22 05/11/22 05/11/22 05:10 05:10 05:10 WBC 12.06 H RBC 3.57 L Hgb 9.1 L Hct 32.1 L MCV 90 MCH 25.5 L MCHC 28.3 L RDW 18.0 H Plt Count 233 MPV 10.4 Immature Gran % 0.6 Neutrophils % 86.6 Lymphocytes % 2.7 Monocytes % 10.0 Eosinophils % 0.0 Basophils % 0.1 Nucleated RBC % 0.2 Absolute Neutrophils 10.44 H Absolute Lymphocytes 0.33 L Absolute Monocytes 1.21 H Absolute Eosinophils 0.00 Absolute Basophils 0.01 RBC Morphology Hypochromasia ABG Sample Site ABG pH ABG pCO2 ABG pO2 ABG HCO3 ABG Total CO2 ABG O2 Saturation ABG Base Excess VBG pH VBG pCO2 VBG pO2 VBG HCO3 VBG Total CO2 VBG O2 Saturation VBG Base Excess VBG Lactate FiO2 Sodium 138 Potassium 5.8 H Chloride 99 Carbon Dioxide 42.4 H Anion Gap -3.4 L BUN 34 H Creatinine 1.3 H Est GFR (CKD-EPI 2020) 46.21 Glucose 102 Calcium 8.5 Phosphorus 3.6 Cancelled Magnesium 2.3 Total Bilirubin 0.3 AST 15 ALT 15 Alkaline Phosphatase 47 Troponin I Total Protein 6.0 L Albumin 2.7 L 05/11/22 05/11/22 05/11/22 09:25 09:50 09:50 WBC RBC Hgb Hct MCV MCH MCHC RDW Plt Count MPV Immature Gran % Neutrophils % Lymphocytes % Monocytes % Eosinophils % Basophils % Nucleated RBC % Absolute Neutrophils Absolute Lymphocytes Absolute Monocytes Absolute Eosinophils Absolute Basophils RBC Morphology Hypochromasia ABG Sample Site Right Radial ABG pH 7.36 ABG pCO2 76 H* ABG pO2 74 L ABG HCO3 43 H ABG Total CO2 41 H ABG O2 Saturation 94 L ABG Base Excess > 15 H VBG pH VBG pCO2 VBG pO2 VBG HCO3 VBG Total CO2 VBG O2 Saturation VBG Base Excess VBG Lactate FiO2 50 Sodium Potassium 5.5 H Chloride Carbon Dioxide Anion Gap BUN Creatinine Est GFR (CKD-EPI 2020) Glucose Calcium Phosphorus Magnesium Total Bilirubin AST ALT Alkaline Phosphatase Troponin I < 50 Total Protein Albumin 05/11/22 05/12/22 05/12/22 13:56 02:15 02:15 WBC RBC Hgb Hct MCV MCH MCHC RDW Plt Count MPV Immature Gran % Neutrophils % Lymphocytes % Monocytes % Eosinophils % Basophils % Nucleated RBC % Absolute Neutrophils Absolute Lymphocytes Absolute Monocytes Absolute Eosinophils Absolute Basophils RBC Morphology Hypochromasia ABG Sample Site ABG pH ABG pCO2 ABG pO2 ABG HCO3 ABG Total CO2 ABG O2 Saturation ABG Base Excess VBG pH 7.36 VBG pCO2 74 H* VBG pO2 39 VBG HCO3 41 H VBG Total CO2 39 H VBG O2 Saturation 69 VBG Base Excess > 15 H VBG Lactate FiO2 Sodium 136 Potassium 5.5 H Chloride 97 L Carbon Dioxide 41.7 H Anion Gap -2.7 L BUN 31 H Creatinine 1.3 H Est GFR (CKD-EPI 2020) 46.21 Glucose 122 H Calcium 8.3 L Phosphorus Magnesium Total Bilirubin AST ALT Alkaline Phosphatase Troponin I < 50 54 Total Protein Albumin 05/12/22 05/12/22 05/12/22 02:15 02:15 02:15 WBC 16.34 H RBC 3.80 L Hgb 9.8 L Hct 34.3 L MCV 90 MCH 25.8 L MCHC 28.6 L RDW 18.4 H Plt Count 291 MPV 9.5 Immature Gran % 2.0 Neutrophils % 83.7 Lymphocytes % 4.2 Monocytes % 10.0 Eosinophils % 0.0 Basophils % 0.1 Nucleated RBC % 0.2 Absolute Neutrophils 13.68 H Absolute Lymphocytes 0.69 L Absolute Monocytes 1.63 H Absolute Eosinophils 0.00 Absolute Basophils 0.02 RBC Morphology See Below Hypochromasia 1+ ABG Sample Site ABG pH ABG pCO2 ABG pO2 ABG HCO3 ABG Total CO2 ABG O2 Saturation ABG Base Excess VBG pH VBG pCO2 VBG pO2 VBG HCO3 VBG Total CO2 VBG O2 Saturation VBG Base Excess VBG Lactate 1.2 FiO2 Sodium Potassium Chloride Carbon Dioxide Anion Gap BUN Creatinine Est GFR (CKD-EPI 2020) Glucose Calcium Phosphorus Magnesium 2.1 Total Bilirubin AST ALT Alkaline Phosphatase Troponin I Total Protein Albumin Exam: XR Chest Exam date and time: 05/12/2022 2:04 AM Age: 61 years old Clinical indication: Other: Vented PT TECHNIQUE: Imaging protocol: Radiologic exam of the chest. Views: 1 view. COMPARISON: CR XR PORTABLE CHEST AP 05/11/2022 8:20 AM FINDINGS: Endotracheal tube tip 5 cm above the misti.? Enteric tube in the stomach.? Right IJ central venous catheter in the right atrium approximately 4 cm below the cavoatrial junction Lungs:? Left basilar consolidation.? Mild interstitial opacities Pleural spaces:? Question left pleural effusion. No pneumothorax. Heart/Mediastinum:? Moderate cardiomegaly. Bones/joints: Unremarkable. IMPRESSION: Line and tubes as described Left basilar consolidation question left pleural fluid
[2022-05-12] MEDS: PIPERACILLIN/TAZO 3.375 GM in Normal Saline 50 ML IVPB (04:47)
[2022-05-12] MEDS: Ipratropium 0.5 MG/2.5 ML UPD VIAL UPD ×3 (05:29→18:17)
[2022-05-12 06:50] LABS: Abs Immature Grans 0.17 10^3/uL (0.0-0.06); Absolute Basophil Count 0.03 10^3/uL (0.0-0.2); Absolute Lymphocyte Count 0.55 10^3/uL (1.2-3.4); Absolute Monocyte Count 0.81 10^3/uL (0.1-0.8); Absolute Neutrophil Count 14.57 10^3/uL (1.2-6.7); Basophils % 0.2; HGB 10.8 g/dL (11.2-15.7); Immature Grans % 1.1; Lymphocytes % 3.4; MCH 25.3 pg (27.0-33.0); MCHC 28.4 % (32.0-36.0); MCV 89 fL (80-95); MPV 9.7 fL (8.0-11.0); Neutrophils % 90.3; Nucleated RBC 0.5 % (0.0-0.3); Platelet Count 357 10^3/uL (130-400); RBC 4.27 10^6/uL (3.93-5.22); RDW 18.6 % (11.7-14.6); RDW-SD 57.8 fL; WBC 16.13 10^3/uL (4.4-10.8)
[2022-05-12 07:08] LABS: Anion Gap 1.8 mmol/L (3-11); BUN 32 mg/dL (7-18); CO2 38.2 mmol/L (21.0-32.0); CREATININE 1.3 mg/dL (0.55-1.02); Calcium 8.5 mg/dL (8.5-10.1); Chloride 95 mmol/L (98-107); Estimated GFR 46.21 (mL/min/1.73m2); Glucose 158 mg/dL (74-106); Potassium 5.5 mmol/L (3.5-5.1); Sodium 135 mmol/L (136-145)
--- NOTE | 2022-05-12 07:38 | PUCC_ITS ---
General Date of Service Date of service: 05/12/22 Time of Service: 07:39 Reason for Admission to ICU: Acute on chronic hypoxic and hypercapnic respiratory failure. Assessment and Plan Assessment and plan (1) Seizure: Status: Suspected (2) WENDY (acute kidney injury): Status: Acute (3) Elevated troponin I level: Status: Acute (4) Altered mental status: Status: Acute (5) Respiratory failure with hypoxia and hypercapnia: Status: Acute (6) PAF (paroxysmal atrial fibrillation): Status: Acute (7) Acute on chronic respiratory acidosis: Status: Acute (8) COPD exacerbation: Status: Acute (9) CHF exacerbation: Status: Acute (10) Hyperkalemia: Status: Acute (11) Leukocytosis: Status: Acute Assessment and plan: This is a co-morbid 61 yo admitted to the ICU for acute on chronic hypoxic and hypercapnic respiratory failure. Clinically, she is volume overloaded and unfortunately is more volume up than when I last saw her. She is not having bronchospasm, however with the acute on chronic respiratory acidosis, I recommend still covering her for a COPD exacerbation (but there is no clear signs of infection so will discontinue Zosyn and vancomycin). She has gained 20lbs in the last month has had orthopnea, pulmonary edema and peripheral edema in addition to an extremely elevated bnp (even when compared to prior hospitalizations). In speaking with family the picture seems to be worsening volume overload (CHF exacerbation) leading to worsening hypoventilation and subsequent acute on chronic respiratory acidosis. She is stable on the ventilator. She developed A. fib and I adjusted her medications as she was receiving both Levophed and a diltiazem infusion (which are acting against each other in every way). I will start phenylephrine to try and decrease the Levophed needs. For the A. fib I discontinued the PO metoprolol and instead recommend a prn IV approach with dilt of metoprolol. If this is not sufficient or it affects her blood pressure too much, I recommend starting he on an amiodarone infusion. Recommendations Pulmonary: Acute on chronic hypoxic and hypercapnic respiratory failure - lung protective ventilation - TV 6-8 cc/kg - I decreased from 450cc to 350cc - increased PEEP from 5-8cmH2O given pulmonary edema/volume as well as body habitus - keep RR at 14 - FiO2 wean to 88-92% SpO2 - driving pressure <15 - VAP bundle - negative fluid balance (see below) - I have started the process for obtaining a Trilogy on discharge COPD - will treat for exacerbation, although not currently clinically behaving as such - 40mg prednisone daily - Duonebs q6h - albuterol changed to Xopenex in light of Tejinder underwood - she is on Flovent and Stiolto at home, but on Symbicort here - once extubated would switch back to her home regimen - azithromycin 500mg IV daily for 5 days - can switch to PO once improving Cardiac: Atrial Fibrillation - recommend prn IV metoprolol or diltiazem to start - if ineffective or too much affect on BP then recommend giving a bolus of amiodarone and then starting an infusion at 1 CHF Exacerbation - recommend negative fluid balance as below - 40mg IV Lasix daily to start - may need more doses in the day depending on response - no inotropy needed at this time Elevated troponin - demand related - no need to continue trending as it has plataeued Renal: WENDY - possibly congestion - continue to monitor UOP and Cr - diuresis and re-assess - daily lytes, Mg and phos Hyperkalemia - re-assess after diuresis I&O: Intake & Output 05/09/22 05/10/22 05/11/22 05/12/22 23:59 23:59 23:59 23:59 Intake Total 1680.492 / 0535.514 1682.658 / 7117.011 1223.570 / 1457.570 Output Total 700 / 700 2175 / 2525 350 / 350 Balance 980.492 / 980.492 -360.342 / -586.970 5933.570 / 1107.570 Weight 85.3 kg 83.2 kg 84 kg Daily Fluid Goal:: Negative 1 L in next 24 hours GI Nutrition: Nutrition - on tube feeds Infectious Disease: No acute concerns Hematologic: Leukocytosis - reactive Neurologic: Seizure? - on Keppra - neurology consulted, will defer recs to them Endocrine: No acute concerns Lines: Right IJ CVC Blanchard ETT Prophylaxis: Lovenox Protonix Code Status: Resuscitation Status DNR Subjective Critical and life-threatening events over the past 24 hours: Overnight Deepthi was placed on continuous fluids, levophed and a diltiazem infusion. She also was started on vancomycin and Zosyn. I have discontinued everything except for the Levophed and have ordered phenylephrine to try and lighten the Levophed dose to help with her A. Fib. Her PEEP had also been dr opped to 5 again, so again I increased to 8 (driving pressure 13). She was also changed to DNR overnight, however in discussing with the daughter and this is not in the patients or their wishes. The made it clear that the patient would want everything done until we are at a point where there is nothing more medically that can be done for her - which we are not at currently. Her code status has been reverted back to full code. She is sedated when I evaluated her and was still tachycardic with stable blood pressures on the Levophed (able to be weaned down actually). I did not lighten her sedation for a vacation as she was currently too active. Exam Narrative Exam Narrative: POCUS 05/10/22: All views visualized, parasternal view suboptimal. Likely borderline low EF, RV normal size and function. IVC 2.5cm with no collapse (while on 8 of PEEP). No pericardial effusion. No pleural effusions bilaterally. + significant B-lines posteriorly, non significant B-lines anteriorly. Gen: NAD, sedated and mechanicall ventilated HENT: PERRL, nasal turbinates normal without erythema or inflammation, moist oral mucosa, Mallampati 2, No LAD or JVD Chest: No respiratory distress, normal appearance of chest, clear to auscultation bilaterally, + posterior scattered crackles, normal inspiratory effort Heart: regular rate and rhythym, no murmurs, rubs or gallops Abdomen: Non-distended, soft, non tender Extremities: No clubbing, 3+ edema to knee, cyanosis, rashes Neuro: sedated, RASS -4 Psych: unable to assess - sedated Most Recent VS/Results Last Vital Signs Temp 36.5 C 05/12/22 04:00 Pulse 156 H 05/12/22 04:20 Resp 26 H 05/12/22 04:20 BP 96/77 L 05/12/22 04:20 Pulse Ox 94 05/12/22 04:20 Laboratory Results - last 24 hr 05/11/22 05/11/22 05/11/22 05:10 09:25 09:50 WBC RBC Hgb Hct MCV MCH MCHC RDW Plt Count MPV Immature Gran % Neutrophils % Lymphocytes % Monocytes % Eosinophils % Basophils % Nucleated RBC % Absolute Neutrophils Absolute Lymphocytes Absolute Monocytes Absolute Eosinophils Absolute Basophils RBC Morphology Hypochromasia ABG Sample Site Right Radial ABG pH 7.36 ABG pCO2 76 H* ABG pO2 74 L ABG HCO3 43 H ABG Total CO2 41 H ABG O2 Saturation 94 L ABG Base Excess > 15 H VBG pH VBG pCO2 VBG pO2 VBG HCO3 VBG Total CO2 VBG O2 Saturation VBG Base Excess VBG Lactate FiO2 50 Sodium 138 Potassium 5.8 H 5.5 H Chloride 99 Carbon Dioxide 42.4 H Anion Gap -3.4 L BUN 34 H Creatinine 1.3 H Est GFR (CKD-EPI 2020) 46.21 Glucose 102 Calcium 8.5 Phosphorus 3.6 Magnesium 2.3 Total Bilirubin 0.3 AST 15 ALT 15 Alkaline Phosphatase 47 Troponin I Total Protein 6.0 L Albumin 2.7 L 05/11/22 05/11/22 05/12/22 09:50 13:56 02:15 WBC RBC Hgb Hct MCV MCH MCHC RDW Plt Count MPV Immature Gran % Neutrophils % Lymphocytes % Monocytes % Eosinophils % Basophils % Nucleated RBC % Absolute Neutrophils Absolute Lymphocytes Absolute Monocytes Absolute Eosinophils Absolute Basophils RBC Morphology Hypochromasia ABG Sample Site ABG pH ABG pCO2 ABG pO2 ABG HCO3 ABG Total CO2 ABG O2 Saturation ABG Base Excess VBG pH VBG pCO2 VBG pO2 VBG HCO3 VBG Total CO2 VBG O2 Saturation VBG Base Excess VBG Lactate FiO2 Sodium 136 Potassium 5.5 H Chloride 97 L Carbon Dioxide 41.7 H Anion Gap -2.7 L BUN 31 H Creatinine 1.3 H Est GFR (CKD-EPI 2020) 46.21 Glucose 122 H Calcium 8.3 L Phosphorus Magnesium Total Bilirubin AST ALT Alkaline Phosphatase Troponin I < 50 < 50 54 Total Protein Albumin 05/12/22 05/12/22 05/12/22 02:15 02:15 02:15 WBC 16.34 H RBC 3.80 L Hgb 9.8 L Hct 34.3 L MCV 90 MCH 25.8 L MCHC 28.6 L RDW 18.4 H Plt Count 291 MPV 9.5 Immature Gran % 2.0 Neutrophils % 83.7 Lymphocytes % 4.2 Monocytes % 10.0 Eosinophils % 0.0 Basophils % 0.1 Nucleated RBC % 0.2 Absolute Neutrophils 13.68 H Absolute Lymphocytes 0.69 L Absolute Monocytes 1.63 H Absolute Eosinophils 0.00 Absolute Basophils 0.02 RBC Morphology See Below Hypochromasia 1+ ABG Sample Site ABG pH ABG pCO2 ABG pO2 ABG HCO3 ABG Total CO2 ABG O2 Saturation ABG Base Excess VBG pH 7.36 VBG pCO2 74 H* VBG pO2 39 VBG HCO3 41 H VBG Total CO2 39 H VBG O2 Saturation 69 VBG Base Excess > 15 H VBG Lactate 1.2 FiO2 Sodium Potassium Chloride Carbon Dioxide Anion Gap BUN Creatinine Est GFR (CKD-EPI 2020) Glucose Calcium Phosphorus Magnesium Total Bilirubin AST ALT Alkaline Phosphatase Troponin I Total Protein Albumin 05/12/22 05/12/22 05/12/22 02:15 06:40 06:40 WBC 16.13 H RBC 4.27 Hgb 10.8 L Hct 38.0 MCV 89 MCH 25.3 L MCHC 28.4 L RDW 18.6 H Plt Count 357 MPV 9.7 Immature Gran % 1.1 Neutrophils % 90.3 Lymphocytes % 3.4 Monocytes % 5.0 Eosinophils % 0.0 Basophils % 0.2 Nucleated RBC % 0.5 H Absolute Neutrophils 14.57 H Absolute Lymphocytes 0.55 L Absolute Monocytes 0.81 H Absolute Eosinophils 0.00 Absolute Basophils 0.03 RBC Morphology Hypochromasia ABG Sample Site ABG pH ABG pCO2 ABG pO2 ABG HCO3 ABG Total CO2 ABG O2 Saturation ABG Base Excess VBG pH VBG pCO2 VBG pO2 VBG HCO3 VBG Total CO2 VBG O2 Saturation VBG Base Excess VBG Lactate FiO2 Sodium 135 L Potassium 5.5 H Chloride 95 L Carbon Dioxide 38.2 H Anion Gap 1.8 L BUN 32 H Creatinine 1.3 H Est GFR (CKD-EPI 2020) 46.21 Glucose 158 H Calcium 8.5 Phosphorus Magnesium 2.1 2.0 Total Bilirubin AST ALT Alkaline Phosphatase Troponin I Total Protein Albumin Review of Systems Unobtainable due to endotracheal tube Time spent with patient Time spent in Critical Care: 45 Time spent in Critical care included: Coordination of care, Chart review, Documenting critically ill care, Time at immediate bedside, Discussing critically ill care with other medical staff and Discussing care with family members
[2022-05-12] MEDS: Sodium Zirconium Cyclosilicate 10 GM PKT NG ×3 (07:40→22:10)
--- NOTE | 2022-05-12 07:42 | NUR.NOTE ---
FI02 is at 40%. Patient is sating in high 80's. RN speaks to respiratory therapist about increasing FIO2. FI02 is increased to 50%.Nursing Note:
--- NOTE | 2022-05-12 07:48 | NUR.NOTE ---
Dr. Dejesus orders LR to be dc'd and Diltiazem to be dc'd stat. Same is done.Nursing Note:
[2022-05-12] MEDS: Furosemide 40 MG/4 ML VIAL IVP (08:00)
[2022-05-12] MEDS: Budesonide/Formoterol 160/4.5 6 GM 60 PUFF INH IH ×2 (08:48→19:44)
[2022-05-12] MEDS: PROPOFOL 1,000 MG/100 ML BTL 26.4 MG IV (09:36)
--- NOTE | 2022-05-12 09:59 | CMPROGNOTE_ITS ---
- If Service Date Differs Date of service: 05/12/22 Time of Service: 09:59 Care Management Progress Note S/O: Deepthi remains intubated and closely monitored at ICU level of care. CM checked in with nursing, who reported that her family was visiting this morning, and received an update from her RN. Per report, her medications are being adjusted, and her O2 will be weaned as tolerated. CM will continue to follow. A: Deepthi is a 61 female admitted to [facility] on 05/10/22 P: Елена is being closely monitored at ICU level of care. She will likely be discharged home when medically cleared by MD, with a resumption of RN. She will follow up with her PCP and plan of care and transport with family. CM will assess and support identified discharge needs.
[2022-05-12] MEDS: Amiodarone in Dextrose 360 MG/200 ML BAG 33.333 MG IV ×2 (10:08→13:01)
[2022-05-12] MEDS: levETIRAcetam 1,000 MG in Normal Saline 100 ML 400 MG IVPB ×2 (10:22→22:09)
--- NOTE | 2022-05-12 11:04 | NUR.NOTE ---
RN turns Norepinephrine off for 2 mintues and patient's blood pressure drops to 61/50. RN then titrates Norepinephrine to 0.2mcg/kg/min or 31.5ml/hr and blood pressure is 84/65.Nursing Note:
[2022-05-12] MEDS: predniSONE 20 MG TAB 40 MG PO (11:54)
[2022-05-12] MEDS: Lacri-Lube 3.5 GM TUBE OU ×2 (12:00→19:44)
--- NOTE | 2022-05-12 12:37 | PGE_ITS ---
Date of Service Date of service: 05/12/22 Time of Service: 09:20 Assessment and Plan Assessment and plan (1) Acute and chronic respiratory failure: Status: Acute Assessment and plan: In setting of COPD exacerbation as well as R-sided CHF. I am unable to tell re diastolic dysfunction based on the echo read. Intubated/sedated. Continue diuresis. Unfortunately, the patient received 1.5 L of IVF in 24 hrs given hypotension. Continue steroids, nebs. On empiric azithromycin. Wean O2 as tolerated. FiO2 not significantly better today - will not attempt to extubate today. Recheck ABG and CXR in am. Qualifiers: Respiratory failure complication: hypoxia and hypercapnia Qualified Code(s): J96.21 - Acute and chronic respiratory failure with hypoxia; J96.22 - Acute and chronic respiratory failure with hypercapnia (2) Paroxysmal atrial fibrillation with rapid ventricular response: Status: Acute Assessment and plan: Initiated on amiodarone gtt and heparin gtt. Weaning levophed - should the patient still require a vasopressor agent, would prefer it be phenylephrine. (3) COPD (chronic obstructive pulmonary disease): Status: Chronic Assessment and plan: As above Qualifiers: COPD type: COPD with acute exacerbation Qualified Code(s): J44.1 - Chronic obstructive pulmonary disease with (acute) exacerbation (4) Elevated troponin I level: Status: Acute Assessment and plan: Likely Type 2 NSTEMI in setting of hypoxemia/respiratory failure/fluid overload. Echo: LVEF preserved; no wall motion abnormalities. Does have RV dilation on echo. Rate control imperative. (5) WENDY (acute kidney injury): Status: Acute Assessment and plan: Avoid IVF given fluid overload. Monitor renal function and UOP while diuresing. (6) (HFpEF) heart failure with preserved ejection fraction: Status: Chronic Assessment and plan: as above (7) Seizure: Status: Suspected Assessment and plan: suspected based on a tongue laceration. EEG not c/w epilepsy. Continue keppra for now. Will need an MRI of the brain once extubated. (8) DVT prophylaxis: Status: Acute Assessment and plan: Heparin gtt. (9) Discharge planning issues: Status: Acute Assessment and plan: Full code Keep in ICU Continues to require restraints. Discussed with Dr Marrero Total Critical Care Time 45 minutes. Subjective Subjective Interval history since last seen: Went into rapid Afib during the day which had resolved with IV lopressor and IV diltiazem and then recurred last night. Received a bolus of IVF, was initiated on cardizem gtt + norepinephrine. This morning HRs remained in 160s-170s. Modest response to IV lopressor. Discussed with daughter - The patient has been having bouts of rapid rates at home at night even while on metoprolol at home. Decision was made to initiate the patient on amiodarone and heparin gtt. HR is now down to 140s. Exam Narrative Exam Narrative: General: Intubated, sedated, on vent HEENT: eyes closed, MMM, ET and OG tubs in place Heart: irregularly irregular rhythm, tachycardic Lungs: CTAB on vent Abdomen: soft, nontender, nondistended Extremities: no edema BLEs, able to move all 4 extremities, BUEs in soft restraints Objective Last Vital Signs Temp 37.4 C 05/12/22 11:15 Pulse 149 H 05/12/22 12:29 Resp 14 05/12/22 12:29 BP 105/71 05/12/22 11:49 Pulse Ox 93 05/12/22 12:13 Laboratory Results - last 24 hr 05/11/22 05/11/22 05/12/22 11:29 13:56 02:15 WBC RBC Hgb Hct MCV MCH MCHC RDW Plt Count MPV Immature Gran % Neutrophils % Lymphocytes % Monocytes % Eosinophils % Basophils % Nucleated RBC % Absolute Neutrophils Absolute Lymphocytes Absolute Monocytes Absolute Eosinophils Absolute Basophils RBC Morphology Hypochromasia VBG pH VBG pCO2 VBG pO2 VBG HCO3 VBG Total CO2 VBG O2 Saturation VBG Base Excess VBG Lactate Sodium 136 Potassium 5.5 H Chloride 97 L Carbon Dioxide 41.7 H Anion Gap -2.7 L BUN 31 H Creatinine 1.3 H Est GFR (CKD-EPI 2020) 46.21 Glucose 122 H Calcium 8.3 L Magnesium Troponin I < 50 54 Urine Legionella Ag Negative 05/12/22 05/12/22 05/12/22 02:15 02:15 02:15 WBC 16.34 H RBC 3.80 L Hgb 9.8 L Hct 34.3 L MCV 90 MCH 25.8 L MCHC 28.6 L RDW 18.4 H Plt Count 291 MPV 9.5 Immature Gran % 2.0 Neutrophils % 83.7 Lymphocytes % 4.2 Monocytes % 10.0 Eosinophils % 0.0 Basophils % 0.1 Nucleated RBC % 0.2 Absolute Neutrophils 13.68 H Absolute Lymphocytes 0.69 L Absolute Monocytes 1.63 H Absolute Eosinophils 0.00 Absolute Basophils 0.02 RBC Morphology See Below Hypochromasia 1+ VBG pH 7.36 VBG pCO2 74 H* VBG pO2 39 VBG HCO3 41 H VBG Total CO2 39 H VBG O2 Saturation 69 VBG Base Excess > 15 H VBG Lactate 1.2 Sodium Potassium Chloride Carbon Dioxide Anion Gap BUN Creatinine Est GFR (CKD-EPI 2020) Glucose Calcium Magnesium Troponin I Urine Legionella Ag 05/12/22 05/12/22 05/12/22 02:15 06:40 06:40 WBC 16.13 H RBC 4.27 Hgb 10.8 L Hct 38.0 MCV 89 MCH 25.3 L MCHC 28.4 L RDW 18.6 H Plt Count 357 MPV 9.7 Immature Gran % 1.1 Neutrophils % 90.3 Lymphocytes % 3.4 Monocytes % 5.0 Eosinophils % 0.0 Basophils % 0.2 Nucleated RBC % 0.5 H Absolute Neutrophils 14.57 H Absolute Lymphocytes 0.55 L Absolute Monocytes 0.81 H Absolute Eosinophils 0.00 Absolute Basophils 0.03 RBC Morphology Hypochromasia VBG pH VBG pCO2 VBG pO2 VBG HCO3 VBG Total CO2 VBG O2 Saturation VBG Base Excess VBG Lactate Sodium 135 L Potassium 5.5 H Chloride 95 L Carbon Dioxide 38.2 H Anion Gap 1.8 L BUN 32 H Creatinine 1.3 H Est GFR (CKD-EPI 2020) 46.21 Glucose 158 H Calcium 8.5 Magnesium 2.1 2.0 Troponin I Urine Legionella Ag Objective Narrative Objective Narrative: CXR: Bilateral pulmonary opacities.? Pneumonia cannot be excluded. Multi-Disciplinary Checklist Lines/Tubes CENTRAL LINE: yes, Central Line Day#: 2 Note: 05/10/22 ARTERIAL LINE: no MUNOZ: yes, Munoz Day#: 2 Note: 05/10/22 ENDOTRACHEAL TUBE: yes, Endotracheal Tube Day#: 2 Sedation: yes, Sedation Vacation: yes Head of Bed@30 degrees: yes Spontaneous Breathing Trial: yes ICU Maintenance GLUCOSE 140-180mg/dL: yes NUTRITION AT GOAL: no, Reason/Intervention: awaiting tube feeding recommendations PRESSURE ULCER: no RESTRAINTS: yes, Reviewed Necessity: Yes ANTIBIOTICS(if yes, consider Stewardship): Yes Social Issues FAMILY UPDATED: yes PT/OT: no, Reason/Intervention: not clinically appropriate GOALS/DISPOSITION/MIDDLEWARE ADMINISTRATOR: yes CODE STATUS: Full (Daughter clear about this at bedside today) Prophylaxis DVT PROPHYLAXIS: no Reason/Intervention: On therapeutic anticoagulation GI PROPHYLAXIS: yes, Indication: NPO on vent
--- NOTE | 2022-05-12 13:00 | NUR.NOTE ---
Liquor Bridge Operator called at this time in regards to what this patient needs nutritionally, they did not answer, message left. RN notified. Nursing Note:
[2022-05-12] MEDS: PROPOFOL 1,000 MG/100 ML BTL 20.472 MG IV ×3 (13:35→22:19)
--- NOTE | 2022-05-12 14:02 | W.NUTRFU ---
Date of service: 05/12/22 Time of Service: 14:02 Nutrition Note NOTE: Labs reviewed, continues with elevated K, Cre, BUN. Nsg reports fluid overloaded, sedated, intubated. Would recommend more concentrated and lower potassium tube feeding to be initiated. Recommend Osmolite 1.5 @ 40 cc/hour, flush 100 ml q 6 hours provides total of : 1440 kcal, 45 g protein, 1500 mg potassium, 1540 ml fluid. Check residual q 4 hours, hold x 4 hours if over 100 ml. Time Spent in Nutritional Counseling and Treatment: 10
[2022-05-12 14:42] LABS: Streptococcus Pneumoniae Ag, U Negative (Negative)
--- NOTE | 2022-05-12 15:47 | NUR.NOTE ---
At 08:00 ET is 7.5, and 22cm at lip, OG tube is 48cm at lip. Triple lumen IJ is patent.
--- NOTE | 2022-05-12 15:51 | NUR.NOTE ---
At 14:00 fish and game club manager assesses patient to see if patient should be started on feeds. Driving Instructor does not recommend starting patient on feeds because of the amount of fluids patient is receiving and an elevated Potassium. The need for feeds will be reviewed tomorrow.Nursing Note:
[2022-05-12] MEDS: Pantoprazole 40 MG VIAL IVP (16:09)
[2022-05-12] MEDS: AZITHROMYCIN 500 MG in Normal Saline 250 ML 250 MG IVPB (16:09)
--- NOTE | 2022-05-12 17:00 | RT.EKG_ITS ---
APPROVED REPORT Exam: Resting ECG Reason for Exam: Afib conversion to SR Patient Location: I HR:91 bpm ECG Measurements Heart Rate 91 AXIS IL 173 P 57 QRSd 88 QRS -20 QT 337 T -12 QTc 415 Conclusion Sinus rhythm...normal P axis, V-rate 50- 99 Borderline left axis deviation...QRS axis (-15,-29) Low voltage, extremity and precordial leads...extremity<0.5mV, precordial<1.0mV
[2022-05-12 17:36] LABS: PTT Activated 36.2 sec (21.0-27.5)
[2022-05-12] MEDS: Amiodarone in Dextrose 360 MG/200 ML BAG 16.667 MG IV (18:41)
[2022-05-13] VITALS (119 sets, daily range): BP systolic 66–182; BP diastolic 37–117; PULSE 47–188; RESP 2–35; TEMP 36.7–38.2; O2SAT 88–98
[2022-05-13] MEDS: Metoprolol 5 MG/5 ML VIAL IVP ×3 (00:08→20:21)
[2022-05-13] MEDS: Ipratropium 0.5 MG/2.5 ML UPD VIAL UPD ×4 (00:09→18:58)
[2022-05-13] MEDS: Normal Saline Flush 10 ML SYR IVP ×4 (00:09→20:04)
[2022-05-13] MEDS: PROPOFOL 1,000 MG/100 ML BTL 25.59 MG IV (02:18)
[2022-05-13] MEDS: Metoprolol 5 MG/5 ML VIAL 2.5 MG IVP ×2 (03:17→23:00)
[2022-05-13] MEDS: Sodium Zirconium Cyclosilicate 10 GM PKT NG (06:13)
[2022-05-13] MEDS: PROPOFOL 1,000 MG/100 ML BTL 23.031 MG IV ×2 (06:14→23:01)
[2022-05-13] MEDS: Amiodarone in Dextrose 360 MG/200 ML BAG 16.667 MG IV (06:24)
[2022-05-13 06:57] LABS: Abs Immature Grans 0.14 10^3/uL (0.0-0.06); Absolute Basophil Count 0.01 10^3/uL (0.0-0.2); Absolute Lymphocyte Count 0.52 10^3/uL (1.2-3.4); Absolute Monocyte Count 1.18 10^3/uL (0.1-0.8); Absolute Neutrophil Count 9.62 10^3/uL (1.2-6.7); Basophils % 0.1; HGB 9.7 g/dL (11.2-15.7); Immature Grans % 1.2; Lymphocytes % 4.5; MCH 25.2 pg (27.0-33.0); MCHC 28.5 % (32.0-36.0); MCV 88 fL (80-95); MPV 9.8 fL (8.0-11.0); Monocytes % 10.3; Neutrophils % 83.9; Nucleated RBC 0.5 % (0.0-0.3); Platelet Count 265 10^3/uL (130-400); RBC 3.85 10^6/uL (3.93-5.22); RDW 18.1 % (11.7-14.6); RDW-SD 56.1 fL; WBC 11.47 10^3/uL (4.4-10.8)
[2022-05-13 07:14] LABS: Anion Gap 1.1 mmol/L (3-11); BUN 35 mg/dL (7-18); CO2 38.9 mmol/L (21.0-32.0); CREATININE 1.2 mg/dL (0.55-1.02); Calcium 8.4 mg/dL (8.5-10.1); Chloride 98 mmol/L (98-107); Estimated GFR 50.86 (mL/min/1.73m2); Glucose 113 mg/dL (74-106); Magnesium 2.1 mg/dL (1.8-2.4); Potassium 4.4 mmol/L (3.5-5.1); Sodium 138 mmol/L (136-145)
[2022-05-13 07:48] LABS: Procalcitonin < 0.1 ng/mL
[2022-05-13 08:08] LABS: PTT Activated 52.3 sec (21.0-27.5)
--- NOTE | 2022-05-13 08:30 | DI.RAD_ITS ---
Exam(s) XR PORTABLE CHEST AP EXAM: XR PORTABLE CHEST AP CLINICAL HISTORY: intubated patient TECHNIQUE: 2D digital imaging was performed of the chest. Images were obtained. PA and lateral v iews were obtained. COMPARISON: CR,XR XR PORTABLE CHEST AP from 05/12/2022 FINDINGS: MEDIASTINUM: Normal. HEART: Normal. PULMONARY VASCULATURE: Normal. LUNGS: Persistent bilateral opacities are seen, left greater than right. There has been no significa nt change. PLEURAL SPACE: No pleural effusion or pneumothorax. BONE:Within normal limits for the patient's age. OTHER FINDINGS:The tip of the orogastric tube is in the stomach. The tip of the endotracheal tube is 3.9 cm above the misti. The tip of the right IJ catheter is in the right atrium. Oral contrast is seen in the stomach. IMPRESSION: Stable pulmonary infiltrates. DATA REPOSITORY: RADIATION DOSE DELIVERED:
[2022-05-13 08:59] LABS: BE (Venous) 14 mmol/L (-2-3); HCO3 (Venous) 38 mmol/L (23-28); O2 Sat (Venous) 95 %; TCO2 (Venous) 36 mmol/L (24-29); pCO2 (Venous) 60 mmHg (41-51); pH (Venous) 7.41 (7.31-7.41); pO2 (Venous) 76 mmHg
--- NOTE | 2022-05-13 09:07 | NUR.NOTE ---
Nursing Note: VBG drawn by laborer drying department. ABG draw was unsuccessful by respiratory therapist.
[2022-05-13] MEDS: Levalbuterol 1.25 MG/3 ML UPD VIAL UPD ×3 (09:10→18:57)
[2022-05-13] MEDS: levETIRAcetam 1,000 MG in Normal Saline 100 ML 400 MG IVPB ×2 (09:24→21:48)
[2022-05-13] MEDS: Budesonide 0.25 MG/2 ML UPD VIAL UPD ×2 (09:37→20:04)
--- NOTE | 2022-05-13 10:33 | DI.VRAD_ITS ---
PROCEDURE INFORMATION: Exam: XR Chest Exam date and time: 05/13/2022 9:59 AM Age: 61 years old Clinical indication: Other: Intubated patient TECHNIQUE: Imaging protocol: Radiologic exam of the chest. Views: 1 view. COMPARISON: XR PORTABLE CHEST AP 05/12/2022 2:04 AM FINDINGS: Tubes, catheters and devices: Similar position of endotracheal tube, enteric tube and right IJ catheter. Lungs and Pleural spaces: Persistent bilateral interstitial opacities and left basilar consolidation/pleural effusion. No pneumothorax. Heart/Mediastinum: Similar cardiomediastinal silhouette. Aortic atherosclerosis. Bones/joints: Similar appearance. Other: Oral contrast again seen in region of stomach. IMPRESSION: No significant interval change. Dictated and Authenticated by: Sharifa Gibbons MD. Ordering:LON Sanchez MD
[2022-05-13] MEDS: Furosemide 40 MG/4 ML VIAL IVP (10:34)
[2022-05-13] MEDS: PROPOFOL 1,000 MG/100 ML BTL 23.8 MG IV ×3 (10:44→18:44)
--- NOTE | 2022-05-13 10:52 | NUR.NOTE ---
No change in heparin drip since APTT of 52.3 does not require a changed.Nursing Note:
[2022-05-13] MEDS: predniSONE 20 MG TAB 40 MG PO (11:48)
[2022-05-13] MEDS: Lacri-Lube 3.5 GM TUBE OU ×2 (11:56→18:04)
--- NOTE | 2022-05-13 12:09 | NUR.NOTE ---
Sedation vacation trial begins. Propofol is off. Respiratory therapist is in room.Nursing Note:
--- NOTE | 2022-05-13 12:19 | NUR.NOTE ---
Patient fails weaning trials. Propofol is recommenced.Nursing Note:
--- NOTE | 2022-05-13 13:48 | W.PM.PROGNOT ---
Date of Service Date of service: 05/13/22 Time of Service: 09:40 Assessment and Plan Assessment and plan (1) Acute and chronic respiratory failure: Status: Acute Assessment and plan: In setting of COPD exacerbation as well as R-sided CHF. I am unable to tell re diastolic dysfunction based on the echo read. Remains intubated/on vent. Continue diuresis. Continue steroids, nebs. On empiric azithromycin. Wean O2 as tolerated. Not quite ready for extubation today - tachypneic. Recheck ABG in am. Qualifiers: Respiratory failure complication: hypoxia and hypercapnia Qualified Code(s): J96.21 - Acute and chronic respiratory failure with hypoxia; J96.22 - Acute and chronic respiratory failure with hypercapnia (2) Paroxysmal atrial fibrillation with rapid ventricular response: Status: Acute Assessment and plan: Continue amiodarone and heparin gtt. If we are unable to control rates by tomorrow morning, will discuss with cardiology the possibility of transfer for an ablation. (3) COPD (chronic obstructive pulmonary disease): Status: Chronic Assessment and plan: As above Qualifiers: COPD type: COPD with acute exacerbation Qualified Code(s): J44.1 - Chronic obstructive pulmonary disease with (acute) exacerbation (4) Elevated troponin I level: Status: Acute Assessment and plan: Likely Type 2 NSTEMI in setting of hypoxemia/respiratory failure/fluid overload. Echo: LVEF preserved; no wall motion abnormalities. Does have RV dilation on echo. Rate control imperative. (5) WENDY (acute kidney injury): Status: Acute Assessment and plan: Avoid IVF given fluid overload. Monitor renal function and UOP while diuresing. (6) (HFpEF) heart failure with preserved ejection fraction: Status: Chronic Assessment and plan: as above (7) Seizure: Status: Suspected Assessment and plan: suspected based on a tongue laceration. EEG not c/w epilepsy. Continue keppra for now. Will need an MRI of the brain once extubated. (8) DVT prophylaxis: Status: Acute Assessment and plan: Heparin gtt. (9) Discharge planning issues: Status: Acute Assessment and plan: Full code Keep in ICU Continues to require restraints. Total Critical Care Time 45 minutes. Subjective Subjective Interval history since last seen: Ms Hernandez remains intubated. Woke up with her sedation vacation. Got very tachypneic very quickly on the spontaneous weaning trial. FiO2 down to 35% with 5 of PEEP on vent. Converted to NSR circa 4 pm and again into rapid afib at 23:45 requiring re-initiation of phenylephrine for BP support. UOP adequate. Remains on amiodarone gtt @ 1 mg/hr. Exam Narrative Exam Narrative: General: Intubated, arousable and tracking, on vent in SBT - tachypneic HEENT:EOMI, MMM, ET and OG tubs in place Heart: irregularly irregular rhythm, tachycardic Lungs: CTAB on vent, tachypenic during SBT Abdomen: soft, nontender, nondistended Extremities: no edema BLEs, able to move all 4 extremities, BUEs in soft restraints Objective Last Vital Signs Temp 36.7 C 05/13/22 12:12 Pulse 163 H 05/13/22 12:56 Resp 19 05/13/22 12:40 BP 109/81 05/13/22 12:56 Pulse Ox 89 L 05/13/22 12:40 Laboratory Results - last 24 hr 05/11/22 05/12/22 05/13/22 11:29 17:12 00:45 WBC RBC Hgb Hct MCV MCH MCHC RDW Plt Count MPV Immature Gran % Neutrophils % Lymphocytes % Monocytes % Eosinophils % Basophils % Nucleated RBC % Absolute Neutrophils Absolute Lymphocytes Absolute Monocytes Absolute Eosinophils Absolute Basophils APTT 36.2 H 61.0 H VBG pH VBG pCO2 VBG pO2 VBG HCO3 VBG Total CO2 VBG O2 Saturation VBG Base Excess Sodium Potassium Chloride Carbon Dioxide Anion Gap BUN Creatinine Est GFR (CKD-EPI 2020) Glucose Calcium Magnesium Procalcitonin Ur Strep pneumoniae Ag Negative 05/13/22 05/13/22 05/13/22 06:14 06:14 06:14 WBC 11.47 H RBC 3.85 L Hgb 9.7 L Hct 34.0 L MCV 88 MCH 25.2 L MCHC 28.5 L RDW 18.1 H Plt Count 265 MPV 9.8 Immature Gran % 1.2 Neutrophils % 83.9 Lymphocytes % 4.5 Monocytes % 10.3 Eosinophils % 0.0 Basophils % 0.1 Nucleated RBC % 0.5 H Absolute Neutrophils 9.62 H Absolute Lymphocytes 0.52 L Absolute Monocytes 1.18 H Absolute Eosinophils 0.00 Absolute Basophils 0.01 APTT VBG pH VBG pCO2 VBG pO2 VBG HCO3 VBG Total CO2 VBG O2 Saturation VBG Base Excess Sodium 138 Potassium 4.4 D Chloride 98 Carbon Dioxide 38.9 H Anion Gap 1.1 L BUN 35 H Creatinine 1.2 H Est GFR (CKD-EPI 2020) 50.86 Glucose 113 H Calcium 8.4 L Magnesium 2.1 Procalcitonin < 0.1 Ur Strep pneumoniae Ag 05/13/22 05/13/22 06:14 08:51 WBC RBC Hgb Hct MCV MCH MCHC RDW Plt Count MPV Immature Gran % Neutrophils % Lymphocytes % Monocytes % Eosinophils % Basophils % Nucleated RBC % Absolute Neutrophils Absolute Lymphocytes Absolute Monocytes Absolute Eosinophils Absolute Basophils APTT 52.3 H VBG pH 7.41 VBG pCO2 60 H VBG pO2 76 VBG HCO3 38 H VBG Total CO2 36 H VBG O2 Saturation 95 VBG Base Excess 14 H Sodium Potassium Chloride Carbon Dioxide Anion Gap BUN Creatinine Est GFR (CKD-EPI 2020) Glucose Calcium Magnesium Procalcitonin Ur Strep pneumoniae Ag Objective Narrative Objective Narrative: CXR; No significant interval change. Multi-Disciplinary Checklist Lines/Tubes CENTRAL LINE: yes, Central Line Day#: 3 Note: 05/10/22 ARTERIAL LINE: no MUNOZ: yes, Munoz Day#: 3 Note: 05/10/22 ENDOTRACHEAL TUBE: yes, Endotracheal Tube Day#: 3 Sedation: yes, Sedation Vacation: yes Head of Bed@30 degrees: yes Spontaneous Breathing Trial: yes ICU Maintenance GLUCOSE 140-180mg/dL: yes NUTRITION AT GOAL: yes PRESSURE ULCER: no RESTRAINTS: yes, Reviewed Necessity: Yes ANTIBIOTICS(if yes, consider Stewardship): Yes Social Issues FAMILY UPDATED: yes PT/OT: no, Reason/Intervention: not clinically appropriate GOALS/DISPOSITION/AUDIOVISUAL PRODUCTION SPECIALIST: yes CODE STATUS: Full (Daughter clear about this at bedside today) Prophylaxis DVT PROPHYLAXIS: no Reason/Intervention: On therapeutic anticoagulation GI PROPHYLAXIS: yes, Indication: NPO on vent
--- NOTE | 2022-05-13 13:55 | NUR.NOTE ---
Mouth care performed.Nursing Note:
[2022-05-13] MEDS: Amiodarone in Dextrose 360 MG/200 ML BAG 33.3 MG IV ×2 (13:59→20:04)
--- NOTE | 2022-05-13 14:31 | NUR.NOTE ---
Osmolite feed 1.5 chance is started at 10ml per hour via OG tube.Nursing Note:
--- NOTE | 2022-05-13 14:56 | NUR.NOTE ---
ETT is 22 cm at lip, OG is 48cm at lip and ET is 7.5.Nursing Note:
--- NOTE | 2022-05-13 15:00 | NUR.NOTE ---
Phenyephrine is turned off.Nursing Note:
[2022-05-13] MEDS: AZITHROMYCIN 500 MG in Normal Saline 250 ML 250 MG IVPB (16:48)
[2022-05-13] MEDS: Pantoprazole 40 MG VIAL IVP (16:48)
[2022-05-13] MEDS: Acetaminophen 650 MG SUPP PR (20:04)
[2022-05-14] VITALS (79 sets, daily range): BP systolic 75–136; BP diastolic 49–94; PULSE 100–163; RESP 1–34; TEMP 36.5–38.5; O2SAT 85–99
--- NOTE | 2022-05-14 | DI.RAD_ITS ---
Exam(s) XR PORTABLE CHEST AP EXAM: XR PORTABLE CHEST AP CLINICAL HISTORY: vented patient, ?PNA TECHNIQUE: 2D digital imaging was performed. COMPARISON: CR XR PORTABLE CHEST AP from 05/11/2022 CR,XR XR PORTABLE CHEST AP from 05/12/2022 CR,XR XR PORTABLE CHEST AP from 05/13/2022 FINDINGS: Exam is limited by overlying tubing. A nasogastric tube, endotracheal tube and central venous [address] are unchanged in position. The heart appears enlarged, unchanged. Basilar streaky opacities per sist. IMPRESSION: Stable appearance of the chest. DATA REPOSITORY: RADIATION DOSE DELIVERED:
--- NOTE | 2022-05-14 00:16 | NUR.NOTE ---
RN noted patients hands were very swollen. This technical document writer got rings off of patients left hand. 3 gold rings were taken off. Floss technique used. On last ring, at almost the knuckle, this technical document writer noticed a very small amount of blood from ring. Once ring was off, this technical document writer noticed that the ring was a little bit jagged ridges that caused very small scratches on patients fingers. KAILEE Reddy and oncoming KAILEE Sanchez notified of this happening. 3 gold rings placed in clear bag and taped on mirror in patients room at this time by KAILEE Ambriz. Nursing Note:
[2022-05-14] MEDS: Ipratropium 0.5 MG/2.5 ML UPD VIAL UPD ×5 (00:27→23:15)
[2022-05-14] MEDS: Amiodarone in Dextrose 360 MG/200 ML BAG 33.333 MG IV ×2 (01:32→08:28)
[2022-05-14] MEDS: PROPOFOL 1,000 MG/100 ML BTL 23.031 MG IV (02:04)
--- NOTE | 2022-05-14 02:47 | NUR.NOTE ---
Nursing Note:Patient with increasing ETCO2, decreasing SPO2. Suctioned patient for moderate amount of thick white/[place] secretions. Changed monitoring of SPO2 probe from right finger to left finger, Changed out Filter and in-line ETCO2 monitor. Paged hospitalist for notification.
--- NOTE | 2022-05-14 03:39 | NUR.NOTE ---
Nursing Note: Order placed for ABG stat per conversation with Dr Magaloln, RT is currently busy in the ER.
[2022-05-14] MEDS: fentaNYL 100 MCG/2 ML VIAL 50 MCG IVP ×3 (04:40→23:15)
[2022-05-14] MEDS: Normal Saline Flush 10 ML SYR IVP ×3 (05:22→20:41)
[2022-05-14 06:15] LABS: Abs Immature Grans 0.08 10^3/uL (0.0-0.06); Absolute Basophil Count 0.01 10^3/uL (0.0-0.2); Absolute Lymphocyte Count 0.66 10^3/uL (1.2-3.4); Absolute Monocyte Count 1.04 10^3/uL (0.1-0.8); Basophils % 0.1; HCT 31.9 % (36.0-46.0); HGB 9.2 g/dL (11.2-15.7); Immature Grans % 0.9; Lymphocytes % 7.1; MCH 25.9 pg (27.0-33.0); MCHC 28.8 % (32.0-36.0); MCV 90 fL (80-95); MPV 9.8 fL (8.0-11.0); Monocytes % 11.2; Neutrophils % 80.7; Nucleated RBC 0.4 % (0.0-0.3); Platelet Count 222 10^3/uL (130-400); RBC 3.55 10^6/uL (3.93-5.22); RDW 17.7 % (11.7-14.6); WBC 9.29 10^3/uL (4.4-10.8)
[2022-05-14 06:30] LABS: Anion Gap -0.5 mmol/L (3-11); BUN 34 mg/dL (7-18); CO2 41.5 mmol/L (21.0-32.0); CREATININE 1.2 mg/dL (0.55-1.02); Calcium 8.3 mg/dL (8.5-10.1); Chloride 99 mmol/L (98-107); Estimated GFR 50.86 (mL/min/1.73m2); Glucose 123 mg/dL (74-106); Potassium 3.9 mmol/L (3.5-5.1); Sodium 140 mmol/L (136-145)
[2022-05-14 06:32] LABS: PTT Activated 21.4 sec (21.0-27.5)
[2022-05-14 07:47] LABS: Lactate 0.7 mmol/L (0.6-1.4)
[2022-05-14 07:49] LABS: HCO3 41 mmol/L (22-26); pH 7.38 (7.35-7.45); pO2 81 mmHg (80-105); sO2 97 % (95-98); tCO2 39 mmol/L (23-27)
[2022-05-14 07:53] LABS: BE > 15 mmol/L (-2-3); FIO2 40 %; Site Right Radial; pCO2 69 mmHg (35-45)
[2022-05-14] MEDS: Budesonide 0.25 MG/2 ML UPD VIAL UPD ×2 (08:16→20:41)
[2022-05-14] MEDS: predniSONE 20 MG TAB 40 MG PO (08:20)
[2022-05-14] MEDS: Furosemide 40 MG/4 ML VIAL IVP (08:20)
[2022-05-14] MEDS: PROPOFOL 1,000 MG/100 ML BTL 17.913 MG IV (08:25)
[2022-05-14] MEDS: VANCOMYCIN/WATER (PEG) 1.5 GM/300 ML BAG IVPB (08:27)
[2022-05-14 09:32] LABS: Bilirubin Negative (Negative); Blood Moderate (Negative); Clarity Clear (Clear); Glucose Negative (Negative); Ketones Negative (Negative); Leukocyte Esterase Negative (Negative); Nitrite Negative (Negative); Specific Gravity 1.025 (1.005-1.025); Urobilinogen 0.2 EU/dL (Up TO 0.2)
[2022-05-14 09:44] LABS: Bacteria Negative HPF (Negative); Epithelial Cells Few HPF (Negative); RBC >50 HPF (0-2); WBC Negative HPF (0-5)
[2022-05-14 09:45] LABS: C & S Indicated? No; Casts Negative LPF (Negative); Crystals Moderate Uric Acid HPF (Negative); Mucus Negative (Negative)
[2022-05-14] MEDS: Lacri-Lube 3.5 GM TUBE OU ×2 (10:21→20:54)
[2022-05-14] MEDS: CEFEPIME 2 GM in Normal Saline 100 ML IVPB ×2 (10:21→22:24)
--- NOTE | 2022-05-14 10:48 | W.PM.PROGNOT ---
Date of Service Date of service: 05/14/22 Time of Service: 10:48 Assessment and Plan Assessment and plan (1) Acute and chronic respiratory failure: Status: Acute Assessment and plan: In setting of COPD exacerbation as well as R-sided CHF. Obtain CXR given her fever. I am unable to tell re diastolic dysfunction based on the echo read. Remains intubated/on vent. Optimistic about extubating tomorrow. Continue diuresis. Continue steroids, nebs. Wean O2 as tolerated. Qualifiers: Respiratory failure complication: hypoxia and hypercapnia Qualified Code(s): J96.21 - Acute and chronic respiratory failure with hypoxia; J96.22 - Acute and chronic respiratory failure with hypercapnia (2) Paroxysmal atrial fibrillation with rapid ventricular response: Status: Acute Assessment and plan: Continue amiodarone. Heparin gtt held last night due to uterine bleeding (known problem for patient, norethindrone resumed). Awaiting call back from cardiology at [facility] [place]. Suspect infectious process could be driving the HR up. (3) COPD (chronic obstructive pulmonary disease): Status: Chronic Assessment and plan: As above Qualifiers: COPD type: COPD with acute exacerbation Qualified Code(s): J44.1 - Chronic obstructive pulmonary disease with (acute) exacerbation (4) Elevated troponin I level: Status: Acute Assessment and plan: Likely Type 2 NSTEMI in setting of hypoxemia/respiratory failure/fluid overload. Echo: LVEF preserved; no wall motion abnormalities. Does have mild RV dilation on echo. Rate control imperative. (5) WENDY (acute kidney injury): Status: Acute Assessment and plan: Avoid IVF given fluid overload. Monitor renal function and UOP while diuresing. (6) (HFpEF) heart failure with preserved ejection fraction: Status: Chronic Assessment and plan: as above (7) Seizure: Status: Suspected Assessment and plan: suspected based on a tongue laceration. EEG not c/w epilepsy. Continue keppra for now. Will need an MRI of the brain once extubated. (8) DVT prophylaxis: Status: Acute Assessment and plan: Heparin gtt on hold due to uterine bleeding Start SCDs (9) Discharge planning issues: Status: Acute Assessment and plan: Full code Keep in ICU Continues to require restraints. Total Critical Care Time 45 minutes. Subjective Subjective Interval history since last seen: Ms Hernandez remains intubated, did well with sedation vacation. Became more tachycardic during her weaning trial. Denied pain, shortness of breath, nausea. Had a fever overnight and her antibiotics were expanded. Remains in rapid Afib. Off of phenylephrine since about 1800 yesterday. Exam Narrative Exam Narrative: General: Intubated, awake and tracking, following commands, on vent in SBT - not tachypneic HEENT:EOMI, MMM, ET and OG tubs in place Heart: irregularly irregular rhythm, tachycardic Lungs: CTAB on vent, breathing on her own during SBT Abdomen: soft, nontender, nondistended Extremities: no edema BLEs, able to move all 4 extremities, BUEs in soft restraints Objective Last Vital Signs Temp 37.3 C 05/14/22 08:00 Pulse 152 H 05/14/22 09:55 Resp 16 05/14/22 09:55 BP 101/85 05/14/22 08:40 Pulse Ox 93 05/14/22 09:55 Laboratory Results - last 24 hr 05/14/22 05/14/22 05/14/22 03:18 05:20 05:20 WBC RBC Hgb Hct MCV MCH MCHC RDW Plt Count MPV Immature Gran % Neutrophils % Lymphocytes % Monocytes % Eosinophils % Basophils % Nucleated RBC % Absolute Neutrophils Absolute Lymphocytes Absolute Monocytes Absolute Eosinophils Absolute Basophils APTT 21.4 ABG Sample Site Cancelled ABG pH Cancelled ABG pCO2 Cancelled ABG pO2 Cancelled ABG HCO3 Cancelled ABG Total CO2 Cancelled ABG O2 Saturation Cancelled ABG Base Excess Cancelled VBG Lactate Oxygen Liter Flow Cancelled FiO2 Cancelled Sodium 140 Potassium 3.9 Chloride 99 Carbon Dioxide 41.5 H Anion Gap -0.5 L BUN 34 H Creatinine 1.2 H Est GFR (CKD-EPI 2020) 50.86 Glucose 123 H Calcium 8.3 L Magnesium 2.0 Urine Color Urine Clarity Urine pH Ur Specific [place] Urine Protein Urine Ketones Urine Blood Urine Nitrite Urine Bilirubin Urine Urobilinogen Ur Leukocyte Esterase Urine RBC Urine WBC Ur Epithelial Cells Urine Crystals Urine Bacteria Urine Casts Urine Mucus Ur Culture Indicated? Urine Glucose 05/14/22 05/14/22 05/14/22 05:20 07:41 07:45 WBC 9.29 RBC 3.55 L Hgb 9.2 L Hct 31.9 L MCV 90 MCH 25.9 L MCHC 28.8 L RDW 17.7 H Plt Count 222 MPV 9.8 Immature Gran % 0.9 Neutrophils % 80.7 Lymphocytes % 7.1 Monocytes % 11.2 Eosinophils % 0.0 Basophils % 0.1 Nucleated RBC % 0.4 H Absolute Neutrophils 7.50 H Absolute Lymphocytes 0.66 L Absolute Monocytes 1.04 H Absolute Eosinophils 0.00 Absolute Basophils 0.01 APTT ABG Sample Site Right Radial ABG pH 7.38 ABG pCO2 69 H* ABG pO2 81 ABG HCO3 41 H ABG Total CO2 39 H ABG O2 Saturation 97 ABG Base Excess > 15 H VBG Lactate 0.7 Oxygen Liter Flow VT350/RR14/P5 FiO2 40 Sodium Potassium Chloride Carbon Dioxide Anion Gap BUN Creatinine Est GFR (CKD-EPI 2020) Glucose Calcium Magnesium Urine Color Urine Clarity Urine pH Ur Specific [place] Urine Protein Urine Ketones Urine Blood Urine Nitrite Urine Bilirubin Urine Urobilinogen Ur Leukocyte Esterase Urine RBC Urine WBC Ur Epithelial Cells Urine Crystals Urine Bacteria Urine Casts Urine Mucus Ur Culture Indicated? Urine Glucose 05/14/22 09:20 WBC RBC Hgb Hct MCV MCH MCHC RDW Plt Count MPV Immature Gran % Neutrophils % Lymphocytes % Monocytes % Eosinophils % Basophils % Nucleated RBC % Absolute Neutrophils Absolute Lymphocytes Absolute Monocytes Absolute Eosinophils Absolute Basophils APTT ABG Sample Site ABG pH ABG pCO2 ABG pO2 ABG HCO3 ABG Total CO2 ABG O2 Saturation ABG Base Excess VBG Lactate Oxygen Liter Flow FiO2 Sodium Potassium Chloride Carbon Dioxide Anion Gap BUN Creatinine Est GFR (CKD-EPI 2020) Glucose Calcium Magnesium Urine Color Yellow Urine Clarity Clear Urine pH 6.0 Ur Specific [place] 1.025 Urine Protein Negative Urine Ketones Negative Urine Blood Moderate H Urine Nitrite Negative Urine Bilirubin Negative Urine Urobilinogen 0.2 Ur Leukocyte Esterase Negative Urine RBC >50 H Urine WBC Negative Ur Epithelial Cells Few Urine Crystals Moderate Uric Acid Urine Bacteria Negative Urine Casts Negative Urine Mucus Negative Ur Culture Indicated? No Urine Glucose Negative Multi-Disciplinary Checklist Lines/Tubes CENTRAL LINE: yes, Central Line Day#: 4 Note: inserted 05/10/22 ARTERIAL LINE: no MUNOZ: yes, Munoz Day#: 4 Note: inserted on 05/10/22 ENDOTRACHEAL TUBE: yes, Endotracheal Tube Day#: 4 Sedation: yes, Sedation Vacation: yes Head of Bed@30 degrees: yes Spontaneous Breathing Trial: yes ICU Maintenance GLUCOSE 140-180mg/dL: yes NUTRITION AT GOAL: yes PRESSURE ULCER: no RESTRAINTS: yes, Reviewed Necessity: Yes ANTIBIOTICS(if yes, consider Stewardship): Yes Social Issues FAMILY UPDATED: yes PT/OT: no, Reason/Intervention: not clinically appropriate GOALS/DISPOSITION/TERMINOLOGIST: yes CODE STATUS: Full Prophylaxis DVT PROPHYLAXIS: no Reason/Intervention: chemical dvt ppx on hold due to uterine bleeding; starting SCDs GI PROPHYLAXIS: yes,
[2022-05-14] MEDS: levETIRAcetam 1,000 MG in Normal Saline 100 ML 400 MG IVPB ×2 (10:53→21:51)
[2022-05-14] MEDS: Norethindrone 5 MG TAB 10 MG PO ×2 (10:58→20:41)
[2022-05-14] MEDS: Levalbuterol 1.25 MG/3 ML UPD VIAL UPD ×2 (12:10→18:59)
[2022-05-14] MEDS: AZITHROMYCIN 500 MG in Normal Saline 250 ML 250 MG IVPB (15:50)
[2022-05-14] MEDS: PROPOFOL 1,000 MG/100 ML BTL 25.59 MG IV ×3 (15:50→22:56)
[2022-05-14] MEDS: Pantoprazole 40 MG VIAL IVP (15:51)
--- NOTE | 2022-05-14 17:25 | DI.VRAD_ITS ---
PROCEDURE INFORMATION: Exam: XR Chest Exam date and time: 05/14/2022 4:46 PM Age: 61 years old Clinical indication: Other: Vented patient, ? pna TECHNIQUE: Imaging protocol: Radiologic exam of the chest. Views: 1 view. Other technique: Portable exam. COMPARISON: XR PORTABLE CHEST AP 05/13/2022 9:59 AM FINDINGS: Tubes, catheters and devices: Endotracheal tube in place with the tip at the T5 level. Right central line catheter unchanged in position. Nasogastric tube remains in place. Lungs: There are some increased airspace markings at the right lung base compared to prior study. There is dense retrocardiac opacity, unchanged. There is a focal left mid lung lateral opacity possibly related to overlying artifact versus interval airspace change. Pleural spaces: There is a small left pleural effusion. This does not appear significantly changed from recent study. Heart/Mediastinum: Unremarkable. No cardiomegaly. Vasculature: Aortic ectasia noted. Bones/joints: Unremarkable. IMPRESSION: Increasing right lung base markings with persistent left lower lobe opacity. Concern for pneumonia with possible left-sided atelectasis. No change small left effusion. Dictated and Authenticated by: Lizeth Bartlett MD. Ordering:LON Sanchez MD
[2022-05-14 19:53] LABS: COVID-19 PCR Negative (Negative); Influenza A PCR Negative (Negative); Influenza B PCR Negative (Negative); RSV PCR Negative (Negative)
[2022-05-14 19:54] LABS: Source Nasopharynx
[2022-05-14] MEDS: Metoprolol 5 MG/5 ML VIAL IVP (20:40)
[2022-05-14] MEDS: VANCOMYCIN 750 MG in Normal Saline 250 ML 166.667 MG IVPB (23:11)
[2022-05-15] VITALS (57 sets, daily range): BP systolic 81–140; BP diastolic 57–100; PULSE 94–163; RESP 0–38; TEMP 36.4–36.9; O2SAT 89–100
[2022-05-15] MEDS: fentaNYL 100 MCG/2 ML VIAL 50 MCG IVP ×2 (02:32→04:50)
[2022-05-15] MEDS: PROPOFOL 1,000 MG/100 ML BTL 17.913 MG IV (03:08)
[2022-05-15] MEDS: Ipratropium 0.5 MG/2.5 ML UPD VIAL UPD ×3 (04:49→22:16)
[2022-05-15 06:32] LABS: Absolute Basophil Count 0.01 10^3/uL (0.0-0.2); Absolute Eosinophil Count 0.04 10^3/uL (0.0-0.7); Absolute Lymphocyte Count 0.73 10^3/uL (1.2-3.4); Absolute Monocyte Count 0.96 10^3/uL (0.1-0.8); Absolute Neutrophil Count 7.35 10^3/uL (1.2-6.7); Basophils % 0.1; Eosinophils % 0.4; HCT 32.5 % (36.0-46.0); Immature Grans % 1.1; Lymphocytes % 7.9; MCH 24.9 pg (27.0-33.0); MCHC 27.7 % (32.0-36.0); MCV 90 fL (80-95); Monocytes % 10.4; Neutrophils % 80.1; Nucleated RBC 0.3 % (0.0-0.3); Platelet Count 234 10^3/uL (130-400); RBC 3.61 10^6/uL (3.93-5.22); RDW 17.7 % (11.7-14.6); RDW-SD 57.7 fL; WBC 9.19 10^3/uL (4.4-10.8)
[2022-05-15 06:42] LABS: Anion Gap 2.1 mmol/L (3-11); BUN 24 mg/dL (7-18); CO2 41.9 mmol/L (21.0-32.0); CREATININE 0.8 mg/dL (0.55-1.02); Calcium 8.6 mg/dL (8.5-10.1); Chloride 100 mmol/L (98-107); Estimated GFR 82.74 (mL/min/1.73m2); Glucose 114 mg/dL (74-106); Magnesium 1.9 mg/dL (1.8-2.4); Potassium 3.7 mmol/L (3.5-5.1); Sodium 144 mmol/L (136-145)
[2022-05-15 07:00] LABS: Basophilic Stippling Present; Diff Comment RBC Morph Reviewed; Hypochromasia 2+
--- NOTE | 2022-05-15 07:32 | W.PULMCC ---
General Date of Service Date of service: 05/15/22 Time of Service: 07:33 Reason for Admission to ICU: Acute on chronic hypoxic and hypercapnic respiratory failure. Assessment and Plan Assessment and plan (1) Seizure: Status: Suspected (2) WENDY (acute kidney injury): Status: Acute (3) Elevated troponin I level: Status: Acute (4) Altered mental status: Status: Acute (5) Respiratory failure with hypoxia and hypercapnia: Status: Acute (6) PAF (paroxysmal atrial fibrillation): Status: Acute (7) Acute on chronic respiratory acidosis: Status: Acute (8) COPD exacerbation: Status: Acute (9) CHF exacerbation: Status: Acute (10) Hyperkalemia: Status: Acute (11) Leukocytosis: Status: Acute Assessment and plan: This is a co-morbid 61 yo admitted to the ICU for acute on chronic hypoxic and hypercapnic respiratory failure. Clinically, she is volume overloaded and unfortunately remains with a cumulative positive fluid balance. She did have a fever and so broad spectrum antibiotics were started and she grew gram positive cocci from the central line, so we will work on pulling the liine today after she has peripheral access. She remains on amiodarone, and I would not cut it down to 0.5 unless her heart rate is better controlled (I am hoping extubation will help with this as well). She was having CVP's trended which provide no clinically useful information in her situation so I will discontinue this. I will increase her Lasix dosing to bid to try and get her negative as this is imperative. There is no clinical utility in daily blood gases or CXR's even when intubated. If she passes her SBT this morning, I will plan to extubate to BiPAP. Recommendations Pulmonary: Acute on chronic hypoxic and hypercapnic respiratory failure - lung protective ventilation - TV 6-8 cc/kg - I decreased from 450cc to 350cc - recommend PEEP of 8cmH2O given pulmonary edema/volume as well as body habitus - keep RR at 14 - FiO2 wean to 88-92% SpO2 - driving pressure <15 - VAP bundle - negative fluid balance (see below) - I have started the process for obtaining a Trilogy on discharge - if SBT passed today will extubate to BiPAP 26/02 and RT is to wean COPD - will treat for exacerbation, although not currently clinically behaving as such - continue prednisone until 08/17/21 - will change nebs to QID - she is on Flovent and Stiolto at home, but on Symbicort here - once extubated would switch back to her home regimen - azithromycin 500mg IV daily for 5 days - will discontinue after todays dose Cardiac: Atrial Fibrillation - continue amiodarone at 1 until HR begins to improve - once HR in better control decrease to 0.5 and start PO dosing CHF Exacerbation - recommend negative fluid balance as below - 40mg IV Lasix daily increased to bid dosing - no inotropy needed at this time Elevated troponin - demand related - no need to continue trending as it has plataeued Renal: WENDY - possibly congestion, now improved - continue to monitor UOP and Cr - diuresis and re-assess - daily lytes, Mg and phos Hyperkalemia - improved I&O: Intake & Output 05/12/22 05/13/22 05/14/22 05/15/22 23:59 23:59 23:59 23:59 Intake Total 3763.557 / 3763.557 2758.226 / 2758.226 2913.347 / 2940.643 976.442 / 976.442 Output Total 1850 / 1850 1500 / 1500 2615 / 2675 195 / 195 Balance 1913.557 / 8412.651 9065.226 / 1258.226 298.347 / 265.643 781.442 / 781.442 Weight 84 kg 85.5 kg 84.5 kg 84.8 kg Daily Fluid Goal:: Negative 1 L in next 24 hours GI Nutrition: Nutrition - on tube feeds - held this morning given plan for extubation - [facility] eval for swallowing and diet upon extubation Date of Last Bowel Movement: 05/09/22 Infectious Disease: No acute concerns Hematologic: Gram positive bacteremia - MRSA nares - will d/c central line - anesthesia consulted to place midline and hopefully another peripheral line - on cefepime and vanc Neurologic: Seizure? - on Keppra - neurology consulted, will defer recs to them - planned reassessment after extubation Endocrine: No acute concerns Lines: Right IJ CVC [place] ETT Prophylaxis: Lovenox Protonix Code Status: Resuscitation Status Full Code Subjective Critical and life-threatening events over the past 24 hours: Елена is unfortunately still cumulatively positive. She has improved with regard to her FiO2 and if she passes an hour of SBT this morning, I feel comfortable extubating her to BiPAP. She is growing gram positive cocci from a blood culture drawn from her central line, so we will get her additional peripheral IV access and plan to remover the central line today. She is on broad spectrum antibiotics currently, I placed a MRSA nares to hopefully be able to discontinue the vanc. Exam Narrative Exam Narrative: POCUS 05/10/22: All views visualized, parasternal view suboptimal. Likely borderline low EF, RV normal size and function. IVC 2.5cm with no collapse (while on 8 of PEEP). No pericardial effusion. No pleural effusions bilaterally. + significant B-lines posteriorly, non significant B-lines anteriorly. Gen: NAD, sedated and mechanicall ventilated HENT: PERRL, nasal turbinates normal without erythema or inflammation, moist oral mucosa, Mallampati 2, No LAD or JVD Chest: No respiratory distress, normal appearance of chest, clear to auscultation bilaterally, no anterior crackles, normal inspiratory effort Heart: regular rate and rhythym, no murmurs, rubs or gallops Abdomen: Non-distended, soft, non tender Extremities: No clubbing, 3+ edema to knee, cyanosis, rashes Neuro: sedated, RASS -1 Psych: unable to assess - sedated Most Recent VS/Results Last Vital Signs Temp 36.7 C 05/15/22 06:00 Pulse 117 H 05/15/22 06:01 Resp 14 05/15/22 06:01 BP 81/57 L 05/15/22 06:01 Pulse Ox 93 05/15/22 06:01 Laboratory Results - last 24 hr 05/14/22 05/14/22 05/14/22 03:18 07:41 07:45 WBC RBC Hgb Hct MCV MCH MCHC RDW Plt Count MPV Immature Gran % Neutrophils % Lymphocytes % Monocytes % Eosinophils % Basophils % Nucleated RBC % Absolute Neutrophils Absolute Lymphocytes Absolute Monocytes Absolute Eosinophils Absolute Basophils RBC Morphology Hypochromasia Basophilic Stippling ABG Sample Site Cancelled Right Radial ABG pH Cancelled 7.38 ABG pCO2 Cancelled 69 H* ABG pO2 Cancelled 81 ABG HCO3 Cancelled 41 H ABG Total CO2 Cancelled 39 H ABG O2 Saturation Cancelled 97 ABG Base Excess Cancelled > 15 H VBG Lactate 0.7 Oxygen Liter Flow Cancelled VT350/RR14/P5 FiO2 Cancelled 40 Sodium Potassium Chloride Carbon Dioxide Anion Gap BUN Creatinine Est GFR (CKD-EPI 2020) Glucose Calcium Magnesium Urine Color Urine Clarity Urine pH Ur Specific [place] Urine Protein Urine Ketones Urine Blood Urine Nitrite Urine Bilirubin Urine Urobilinogen Ur Leukocyte Esterase Urine RBC Urine WBC Ur Epithelial Cells Urine Crystals Urine Bacteria Urine Casts Urine Mucus Ur Culture Indicated? Urine Glucose COVID-19 Source SARS-CoV-2 (PCR) Influenza Type A (PCR) Influenza Type B (PCR) RSV (PCR) 05/14/22 05/14/22 05/15/22 09:20 18:20 05:50 WBC RBC Hgb Hct MCV MCH MCHC RDW Plt Count MPV Immature Gran % Neutrophils % Lymphocytes % Monocytes % Eosinophils % Basophils % Nucleated RBC % Absolute Neutrophils Absolute Lymphocytes Absolute Monocytes Absolute Eosinophils Absolute Basophils RBC Morphology Hypochromasia Basophilic Stippling ABG Sample Site ABG pH ABG pCO2 ABG pO2 ABG HCO3 ABG Total CO2 ABG O2 Saturation ABG Base Excess VBG Lactate Oxygen Liter Flow FiO2 Sodium 144 Potassium 3.7 Chloride 100 Carbon Dioxide 41.9 H Anion Gap 2.1 L BUN 24 H Creatinine 0.8 Est GFR (CKD-EPI 2020) 82.74 Glucose 114 H Calcium 8.6 Magnesium 1.9 Urine Color Yellow Urine Clarity Clear Urine pH 6.0 Ur Specific [place] 1.025 Urine Protein Negative Urine Ketones Negative Urine Blood Moderate H Urine Nitrite Negative Urine Bilirubin Negative Urine Urobilinogen 0.2 Ur Leukocyte Esterase Negative Urine RBC >50 H Urine WBC Negative Ur Epithelial Cells Few Urine Crystals Moderate Uric Acid Urine Bacteria Negative Urine Casts Negative Urine Mucus Negative Ur Culture Indicated? No Urine Glucose Negative COVID-19 Source Nasopharynx SARS-CoV-2 (PCR) Negative Influenza Type A (PCR) Negative Influenza Type B (PCR) Negative RSV (PCR) Negative 05/15/22 05:50 WBC 9.19 RBC 3.61 L Hgb 9.0 L Hct 32.5 L MCV 90 MCH 24.9 L MCHC 27.7 L RDW 17.7 H Plt Count 234 MPV 10.0 Immature Gran % 1.1 Neutrophils % 80.1 Lymphocytes % 7.9 Monocytes % 10.4 Eosinophils % 0.4 Basophils % 0.1 Nucleated RBC % 0.3 Absolute Neutrophils 7.35 H Absolute Lymphocytes 0.73 L Absolute Monocytes 0.96 H Absolute Eosinophils 0.04 Absolute Basophils 0.01 RBC Morphology See Below Hypochromasia 2+ Basophilic Stippling Present ABG Sample Site ABG pH ABG pCO2 ABG pO2 ABG HCO3 ABG Total CO2 ABG O2 Saturation ABG Base Excess VBG Lactate Oxygen Liter Flow FiO2 Sodium Potassium Chloride Carbon Dioxide Anion Gap BUN Creatinine Est GFR (CKD-EPI 2020) Glucose Calcium Magnesium Urine Color Urine Clarity Urine pH Ur Specific [place] Urine Protein Urine Ketones Urine Blood Urine Nitrite Urine Bilirubin Urine Urobilinogen Ur Leukocyte Esterase Urine RBC Urine WBC Ur Epithelial Cells Urine Crystals Urine Bacteria Urine Casts Urine Mucus Ur Culture Indicated? Urine Glucose COVID-19 Source SARS-CoV-2 (PCR) Influenza Type A (PCR) Influenza Type B (PCR) RSV (PCR) Review of Systems Unobtainable due to endotracheal tube Time spent with patient Time spent in Critical Care: 40 Time spent in Critical care included: Coordination of care, Chart review, Documenting critically ill care, Time at immediate bedside and Discussing critically ill care with other medical staff
[2022-05-15] MEDS: Budesonide 0.25 MG/2 ML UPD VIAL UPD ×2 (08:06→22:16)
--- NOTE | 2022-05-15 08:30 | DI.RAD_ITS ---
Exam(s) XR PORTABLE CHEST AP EXAM: XR PORTABLE CHEST AP CLINICAL HISTORY: intubated patient TECHNIQUE: 2D digital imaging was performed. COMPARISON: CR,XR XR PORTABLE CHEST AP from 05/14/2022 FINDINGS: Exam is limited by overlying tubing and monitor leads. There has been no change in the positioning o f the endotracheal tube, nasogastric tube and right-sided central venous catheter. The lungs are gus ewhat obscured. The lungs are not well inflated. There are mild bibasilar densities. No new abnorm alities are seen. IMPRESSION: No acute findings. DATA REPOSITORY: RADIATION DOSE DELIVERED:
--- NOTE | 2022-05-15 09:01 | PGE_ITS ---
Date of Service Date of service: 05/15/22 Time of Service: 09:01 Assessment and Plan Assessment and plan (1) Altered mental status: Status: Acute Assessment and plan: Patient with AMS in setting of hypoxemia and hypercapnea presumed to be secondary to CHF exacerbation. She was noted to have a tongue laceration on exam and thus concerns raised for possible seizure activity prior to arrival. Now with diffuse twitching, subtle myoclonus - captured on EEG with no epileptiform activity - so likely metabolic - and now resolved. She is following commands and has been with lightening of sedation. Continue LEV 1000mg BID for now. Post-extubation, consider brain MRI pending how she does/other findings. Suspect that she will likely not need levetiracetam long- term, but will continue to follow. Subjective Subjective Interval history since last seen: Plan is for extubation today. Over weekend, patient continued to have afib with RVR preventing extubation. During sedation vacations, has been following commands. Twitching has seemingly resolved. Following commands this am. Exam Narrative Exam Narrative: Physical Exam: Constitutional: Patient of apparent stated age, well nourished, well developed, no acute distress Neck: Supple, no meningismus CV: tachy Resp: CTAB Abd: Soft, nontender, nondistended, +BS Extrem: boots in place Neuro: MS/Language/Speech: Alert, awake, intubated, following commands CN: PERRL, EOMI, no facial asymmetry, hearing intact Motor: Normal bulk and tone. FMM reduced bilaterally. Moves all extremities equally - diffusely weak. Coordination: no ataxia Gait: intubated, unable to test Objective Last Vital Signs Temp 98.1 F 05/15/22 06:00 Pulse 117 H 05/15/22 06:01 Resp 35 H 05/15/22 08:07 BP 81/57 L 05/15/22 06:01 Pulse Ox 90 L 05/15/22 08:07 Laboratory Results - last 24 hr 05/14/22 05/14/22 05/15/22 09:20 18:20 05:50 WBC RBC Hgb Hct MCV MCH MCHC RDW Plt Count MPV Immature Gran % Neutrophils % Lymphocytes % Monocytes % Eosinophils % Basophils % Nucleated RBC % Absolute Neutrophils Absolute Lymphocytes Absolute Monocytes Absolute Eosinophils Absolute Basophils RBC Morphology Hypochromasia Basophilic Stippling Sodium 144 Potassium 3.7 Chloride 100 Carbon Dioxide 41.9 H Anion Gap 2.1 L BUN 24 H Creatinine 0.8 Est GFR (CKD-EPI 2020) 82.74 Glucose 114 H Calcium 8.6 Magnesium 1.9 Urine Color Yellow Urine Clarity Clear Urine pH 6.0 Ur Specific [place] 1.025 Urine Protein Negative Urine Ketones Negative Urine Blood Moderate H Urine Nitrite Negative Urine Bilirubin Negative Urine Urobilinogen 0.2 Ur Leukocyte Esterase Negative Urine RBC >50 H Urine WBC Negative Ur Epithelial Cells Few Urine Crystals Moderate Uric Acid Urine Bacteria Negative Urine Casts Negative Urine Mucus Negative Ur Culture Indicated? No Urine Glucose Negative COVID-19 Source Nasopharynx SARS-CoV-2 (PCR) Negative Influenza Type A (PCR) Negative Influenza Type B (PCR) Negative RSV (PCR) Negative 05/15/22 05:50 WBC 9.19 RBC 3.61 L Hgb 9.0 L Hct 32.5 L MCV 90 MCH 24.9 L MCHC 27.7 L RDW 17.7 H Plt Count 234 MPV 10.0 Immature Gran % 1.1 Neutrophils % 80.1 Lymphocytes % 7.9 Monocytes % 10.4 Eosinophils % 0.4 Basophils % 0.1 Nucleated RBC % 0.3 Absolute Neutrophils 7.35 H Absolute Lymphocytes 0.73 L Absolute Monocytes 0.96 H Absolute Eosinophils 0.04 Absolute Basophils 0.01 RBC Morphology See Below Hypochromasia 2+ Basophilic Stippling Present Sodium Potassium Chloride Carbon Dioxide Anion Gap BUN Creatinine Est GFR (CKD-EPI 2020) Glucose Calcium Magnesium Urine Color Urine Clarity Urine pH Ur Specific [place] Urine Protein Urine Ketones Urine Blood Urine Nitrite Urine Bilirubin Urine Urobilinogen Ur Leukocyte Esterase Urine RBC Urine WBC Ur Epithelial Cells Urine Crystals Urine Bacteria Urine Casts Urine Mucus Ur Culture Indicated? Urine Glucose COVID-19 Source SARS-CoV-2 (PCR) Influenza Type A (PCR) Influenza Type B (PCR) RSV (PCR)
[2022-05-15] MEDS: Norethindrone 5 MG TAB 10 MG PO ×2 (09:47→20:20)
[2022-05-15] MEDS: predniSONE 20 MG TAB 40 MG PO (09:47)
[2022-05-15] MEDS: Furosemide 40 MG/4 ML VIAL IVP ×2 (09:48→15:55)
[2022-05-15] MEDS: Normal Saline-STERILE FIELD 0.9% 10 ML SYR ×2 (09:50)
--- NOTE | 2022-05-15 10:11 | PDOC.CMPRO ---
- If Service Date Differs Date of service: 05/15/22 Time of Service: 10:11 Care Management Progress Note S/O: Елена was lying in bed when CM met with her. Her daughter, Evonne, was by her side visiting. Елена was extubated this morning, and remains on BIPAP. Елена was struggling to speak to CM and Evonne, but eventually stated that she wants water. CM informed her RN, who stated that at this time, she is not able to remove the mask due to her de saturating when it is off, even for a brief time. She will provide mouth care/water as soon as it is safe to do so. Evonne expressed that she is hoping that her mother can be sent home with a BIPAP on this admission, CM stated that RT coordinates respiratory equipment. CM will discuss this with RT. CM will continue to follow. A: Deepthi is a 61 female admitted to [facility] on 05/10/22 P: Елена is being closely monitored at ICU level of care. She will likely be discharged home when medically cleared by MD, with a resumption of RN. She will follow up with her PCP and plan of care and transport with family. CM will assess and support identified discharge needs.
--- NOTE | 2022-05-15 10:13 | W.ANESVAS ---
Midline Placement Date Performed: 05/15/22 Procedure Time: 08:59 Requesting Provider: Chelsey Marrero Procedure Location: Intensive Care Unit Sedation Given (Indicate Dose Given): Propofol IV (on 10 mcg/kg/min, turned up for the procedure, back down at the end. ) Dose:: 60 mcg/kg/min Patient Mental Status: Sedate with meaningful communication Sterility: Hand Hygiene, Surgical Cap, Surgical Mask, Sterile Gloves, Sterile Drape/Sheet and Chlorhexidine Laterality: Left Insertion Site: Brachial Midline Device: PowerGlide Pro 18G Catheter Length: 10 cm Midline Procedure Procedure: 1% Lidocaine to skin and subcutaneous tissue with 25g needle and Catheter placed without resistance Dressing: Tegaderm Applied and Statlock Applied Blood Return: Present Flushes: Easily Ultrasound: Sterile probe cover and gel used Ultrasound Image Saved?: Yes Number of Attempts (See previous attempts in note section): 1 Procedure Tolerated: No Complications Procedure Outcome: Successful Performed By: Nadir Carlson
--- NOTE | 2022-05-15 10:17 | W.ANESNERVE ---
Midline Placement Date Performed: 05/15/22 Procedure Time: 09:10 Requesting Provider: Chelsey Marrero Procedure Location: Intensive Care Unit Sedation Given (Indicate Dose Given): Propofol IV (same as previous midline. ) Dose:: 60 mcg/kg/min Patient Mental Status: Sedate with meaningful communication Sterility: Hand Hygiene, Surgical Cap, Surgical Mask and Sterile Gloves Laterality: Right Insertion Site: Basilic Midline Device: PowerGlide Pro 18G Catheter Length: 10 cm Midline Procedure Procedure: 1% Lidocaine to skin and subcutaneous tissue with 25g needle and Catheter placed without resistance Dressing: Tegaderm Applied and Statlock Applied Blood Return: Present Flushes: Easily Ultrasound: Sterile probe cover and gel used Ultrasound Image Saved?: Yes Number of Attempts (See previous attempts in note section): 2 Procedure Tolerated: No Complications Procedure Outcome: Successful Procedure Comment:: first attempt was for left brachial by Toby than myself, with poor success (catheter seen clearly in the vessel, but no blood return and poor flush, good blood return and flush with catheter almost 1/2 out), and attempt aborted. next. second attempt on the right by toby, than myself with success. Performed By: Nadir Carlson
[2022-05-15] MEDS: CEFEPIME 2 GM in Normal Saline 100 ML IVPB ×2 (10:40→22:16)
[2022-05-15] MEDS: levETIRAcetam 1,000 MG in Normal Saline 100 ML 400 MG IVPB ×2 (10:45→22:31)
[2022-05-15] MEDS: Metoprolol 5 MG/5 ML VIAL IVP (11:42)
[2022-05-15] MEDS: VANCOMYCIN 750 MG in Normal Saline 250 ML 250 MG IVPB (11:44)
--- NOTE | 2022-05-15 14:20 | PGE_ITS ---
Date of Service Date of service: 05/15/22 Time of Service: 09:00 Assessment and Plan Assessment and plan (1) Acute and chronic respiratory failure: Status: Acute Assessment and plan: In setting of COPD exacerbation as well as R-sided CHF. Extubated. I am unable to tell re diastolic dysfunction based on the echo read. Continue diuresis. Continue steroids, nebs. Wean O2 as tolerated. Qualifiers: Respiratory failure complication: hypoxia and hypercapnia Qualified Code(s): J96.21 - Acute and chronic respiratory failure with hypoxia; J96.22 - Acute and chronic respiratory failure with hypercapnia (2) Central line infection: Status: Acute Assessment and plan: GPCs in blood cultures drawn from line. Line removed. Catheter tip culture ordered. Continue empiric vanco/cefepime. (3) Paroxysmal atrial fibrillation with rapid ventricular response: Status: Acute Assessment and plan: Bacteremia/line infection are possible drivers. Continue amiodarone - now that the infected line has been removed, I suspect that the heart rates will calm down. Heparin gtt held due to uterine bleeding (known problem for patient, norethindrone resumed). Resume heparin gtt as the uterine bleeding has slowed significantly. (4) COPD (chronic obstructive pulmonary disease): Status: Chronic Assessment and plan: As above Qualifiers: COPD type: COPD with acute exacerbation Qualified Code(s): J44.1 - Chronic obstructive pulmonary disease with (acute) exacerbation (5) Elevated troponin I level: Status: Acute Assessment and plan: Likely Type 2 NSTEMI in setting of hypoxemia/respiratory failure/fluid overload. Echo: LVEF preserved; no wall motion abnormalities. Does have mild RV dilation on echo. Rate control imperative. (6) WENDY (acute kidney injury): Status: Acute Assessment and plan: Avoid IVF given fluid overload. Monitor renal function and UOP while diuresing. (7) (HFpEF) heart failure with preserved ejection fraction: Status: Chronic Assessment and plan: as above (8) Seizure: Status: Suspected Assessment and plan: suspected based on a tongue laceration. EEG not c/w epilepsy. Continue keppra for now. Consider MRI now that she is extubated. (9) DVT prophylaxis: Status: Acute Assessment and plan: Heparin gtt resumed (10) Discharge planning issues: Status: Acute Assessment and plan: Full code Keep in ICU Discussed with Dr Marrero Total Critical Care Time 45 minutes. Subjective Subjective Interval history since last seen: At the time of my visit, the patient was undergoing a weaning trial (extubated later on). She was awake, following commands, breathing comfortably. Remained in Rapid afib overnight. Off of vasopressors. Afebrile over the last 24 hrs. T max 37.7. Blood culture positive from the CVL - removed, tip cultured. Exam Narrative Exam Narrative: General: Intubated, awake and tracking, following commands, on vent in SBT - not tachypneic HEENT:EOMI, MMM, ET and OG tubs in place; R IJ CVL still in place at time of exam Heart: irregularly irregular rhythm, tachycardic Lungs: CTAB on vent, breathing on her own during SBT Abdomen: soft, nontender, nondistended Extremities: no edema BLEs, able to move all 4 extremities, BUEs in soft restraints Objective Last Vital Signs Temp 36.7 C 05/15/22 12:00 Pulse 148 H 05/15/22 12:12 Resp 29 H 05/15/22 12:00 BP 119/81 05/15/22 11:42 Pulse Ox 95 05/15/22 12:00 Laboratory Results - last 24 hr 05/13/22 05/14/22 05/15/22 05:35 18:20 05:35 WBC RBC Hgb Hct MCV MCH MCHC RDW Plt Count MPV Immature Gran % Neutrophils % Lymphocytes % Monocytes % Eosinophils % Basophils % Nucleated RBC % Absolute Neutrophils Absolute Lymphocytes Absolute Monocytes Absolute Eosinophils Absolute Basophils RBC Morphology Hypochromasia Basophilic Stippling ABG Sample Site Cancelled Cancelled ABG pH Cancelled Cancelled ABG pCO2 Cancelled Cancelled ABG pO2 Cancelled Cancelled ABG HCO3 Cancelled Cancelled ABG Total CO2 Cancelled Cancelled ABG O2 Saturation Cancelled Cancelled ABG Base Excess Cancelled Cancelled Oxygen Liter Flow Cancelled Cancelled FiO2 Cancelled Cancelled Sodium Potassium Chloride Carbon Dioxide Anion Gap BUN Creatinine Est GFR (CKD-EPI 2020) Glucose Calcium Magnesium COVID-19 Source Nasopharynx SARS-CoV-2 (PCR) Negative Influenza Type A (PCR) Negative Influenza Type B (PCR) Negative RSV (PCR) Negative 05/15/22 05/15/22 05:50 05:50 WBC 9.19 RBC 3.61 L Hgb 9.0 L Hct 32.5 L MCV 90 MCH 24.9 L MCHC 27.7 L RDW 17.7 H Plt Count 234 MPV 10.0 Immature Gran % 1.1 Neutrophils % 80.1 Lymphocytes % 7.9 Monocytes % 10.4 Eosinophils % 0.4 Basophils % 0.1 Nucleated RBC % 0.3 Absolute Neutrophils 7.35 H Absolute Lymphocytes 0.73 L Absolute Monocytes 0.96 H Absolute Eosinophils 0.04 Absolute Basophils 0.01 RBC Morphology See Below Hypochromasia 2+ Basophilic Stippling Present ABG Sample Site ABG pH ABG pCO2 ABG pO2 ABG HCO3 ABG Total CO2 ABG O2 Saturation ABG Base Excess Oxygen Liter Flow FiO2 Sodium 144 Potassium 3.7 Chloride 100 Carbon Dioxide 41.9 H Anion Gap 2.1 L BUN 24 H Creatinine 0.8 Est GFR (CKD-EPI 2020) 82.74 Glucose 114 H Calcium 8.6 Magnesium 1.9 COVID-19 Source SARS-CoV-2 (PCR) Influenza Type A (PCR) Influenza Type B (PCR) RSV (PCR) Objective Narrative Objective Narrative: CXR 05/15/22: No acute? findings. Multi-Disciplinary Checklist Lines/Tubes CENTRAL LINE: no ARTERIAL LINE: no MUNOZ: yes, Munoz Day#: 5 ENDOTRACHEAL TUBE: no ICU Maintenance GLUCOSE 140-180mg/dL: yes NUTRITION AT GOAL: no, PRESSURE ULCER: no RESTRAINTS: no ANTIBIOTICS(if yes, consider Stewardship): Yes Social Issues FAMILY UPDATED: no, PT/OT: yes GOALS/DISPOSITION/STUDENT SERVICES COUNSELOR: yes CODE STATUS: Full Prophylaxis DVT PROPHYLAXIS: yes GI PROPHYLAXIS: yes, Indication: NPO
[2022-05-15] MEDS: Amiodarone in Dextrose 360 MG/200 ML BAG 16.667 MG IV (14:40)
[2022-05-15] MEDS: Levalbuterol 1.25 MG/3 ML UPD VIAL UPD ×2 (15:23→22:16)
[2022-05-15] MEDS: Metoprolol 5 MG/5 ML VIAL 2.5 MG IVP (15:42)
[2022-05-15] MEDS: Normal Saline Flush 10 ML SYR IVP (15:46)
[2022-05-15] MEDS: Pantoprazole 40 MG VIAL IVP (15:55)
[2022-05-15] MEDS: AZITHROMYCIN 500 MG in Normal Saline 250 ML 250 MG IVPB (15:56)
[2022-05-15 16:06] LABS: PTT Activated 17.8 sec (21.0-27.5)
[2022-05-15] MEDS: Metoprolol 25 MG TAB PO (20:21)
[2022-05-15] MEDS: Amiodarone in Dextrose 360 MG/200 ML BAG 33.333 MG IV (20:55)
[2022-05-15] MEDS: Nicotine 21 MG/24 HR PATCH TD (22:31)
[2022-05-16] VITALS (46 sets, daily range): BP systolic 93–150; BP diastolic 59–102; PULSE 73–116; RESP 8–35; TEMP 32–37.9; O2SAT 88–100
--- NOTE | 2022-05-16 | DI.CT_ITS ---
Exam(s) CT ABD AORTA CTA W RUNOFF EXAM: CT ABD AORTA CTA W RUNOFF CLINICAL HISTORY: ischemic left foot. TECHNIQUE: Imaging Protocol: Axial computed tomography images with coronal and sagittal reformatted images were created and reviewed CONTRAST MATERIAL: Intravenous: Omnipaque 350 Contrast volume:150 mL Oral: None COMPARISON: CT CT CHEST PE CTA from 07/25/2021 FINDINGS: Left pleural effusion incidentally noted. Also incidentally noted is a grossly enlarged uterus which measures 15 cm length by 13 cm AP by 12.5 cm wide. In addition a calcified fibroids the endometrium is grossly thickened and suspicious for endometrial malignancy. AORTA and bilateral lower extremity runoff: There is no evidence of abdominal aortic aneurysm. No significant stenosis at the origin of the jordyn c and superior mesenteric arteries and the inferior mesenteric artery is also patent. There is some m ural calcification in the lower half of the abdominal aorta no significant aneurysm nor stenosis. How ever, there is significant tight stenosis at the proximal aspect of the right renal artery and some s ignificant calcified plaque also evident at the proximal aspect of the left renal artery. Right kidne y appears smaller than the left. There is no tight stenosis at the aortic bifurcation. No aneurysm of the common iliac arteries. These vessels exhibits some calcified plaque no tight stenosis. The external iliac arteries exhibit normal diameters but exhibits significant plaque at the origin of this vessel on the right side where there also appears to be an intimal flap. This is in the proximal right external iliac arteries. Similar f inding not seen on the left side although there is calcified and noncalcified plaque on the posterior wall of the left external iliac artery. Both internal iliac arteries are patent. Both common femoral arteries are patent. RIGHT LOWER EXTREMITY: Right common femoral artery patent. However, the right SFA is occluded at its origin. Profundal collaterals reconstitute the distal ipsilateral SFA and the right popliteal artery is patent. No aneurysms at this level. The right tibioperoneal trunk is patent. There is 2 vessel run off in the right calf. The dominant runoff vessel is the right anterior tibial artery which descends as normal caliber vessel and is continuous into the foot is a dorsalis pedis vessel. The right mental health specialist ior tibial artery is occluded proximally and beaded more distally. The thin right peroneal artery j carlos ches the lower calf. LEFT LOWER EXTREMITY: The left SFA is patent with mild-moderate multilevel disease. The left poplitea l artery is patent and there is no aneurysm at this level. The left tibioperoneal trunk is patent and there is good three-vessel runoff in the left calf. The anterior tibial artery is continuous with th e dorsalis pedis at the ankle level and the posterior tibial artery is continuous around the medial m alleolus with the plantar vessels. The left peroneal artery does reach lower calf level. IMPRESSION: 1. Vascular findings as described in detail above. 2. Incidentally noted is a grossly enlarged uterus with significantly thickened and abnormal appearin g endometrium. Significant suspicion for endometrial neoplasm/malignancy. Appropriate follow-up recom mended. No abnormal adnexal masses. 3. Left pleural effusion noted 4. Mild symmetrical anasarca bilaterally and extending in the subcutaneous lateral thighs bilaterally . RADIATION DOSE DELIVERED: Total DLP DATA REPOSITORY: All CT scans at this facility are submitted to the National Radiology Data Registry (NRDR) Dose Index Registry (DIR) with the [employer] (ACR). RADIATION OPTIMIZATION: All CT scans at this facility use at least one of these dose optimization te chniques: automated exposure control; mA and/or kV adjustment per patient size (includes targeted exa ms where dose is matched to clinical indication); or iterative reconstruction.
[2022-05-16] MEDS: Metoprolol 25 MG TAB PO ×4 (00:07→19:43)
[2022-05-16] MEDS: VANCOMYCIN 750 MG in Normal Saline 250 ML 166 MG IVPB (00:07)
[2022-05-16 00:29] LABS: PTT Activated 33.6 sec (21.0-27.5)
[2022-05-16] MEDS: Amiodarone in Dextrose 360 MG/200 ML BAG 33.333 MG IV (03:00)
--- NOTE | 2022-05-16 07:27 | W.PULMCC ---
General Date of Service Date of service: 05/16/22 Time of Service: 07:28 Reason for Admission to ICU: Acute on chronic hypoxic and hypercapnic respiratory failure. Assessment and Plan Assessment and plan (1) Seizure: Status: Suspected (2) WENDY (acute kidney injury): Status: Acute (3) Elevated troponin I level: Status: Acute (4) Altered mental status: Status: Acute (5) Respiratory failure with hypoxia and hypercapnia: Status: Acute (6) PAF (paroxysmal atrial fibrillation): Status: Acute (7) Acute on chronic respiratory acidosis: Status: Acute (8) COPD exacerbation: Status: Acute (9) CHF exacerbation: Status: Acute (10) Hyperkalemia: Status: Acute (11) Leukocytosis: Status: Acute Assessment and plan: This is a co-morbid 61 yo admitted to the ICU for acute on chronic hypoxic and hypercapnic respiratory failure. She diuresed well in the last 24 hours. Her rhythm reverted to sinus overnight. We will cut the amiodarone drip to 0.5 and start PO amio to liberate her from this drip. She is receiving a fair amount of fluids via IV meds and the more we can decrease these the better. Her blood cultures is still 1 bottle positive from the central line growing gram positive rods. She remains on vanc and cefepime. If she remains stable respiratory and hemodynamic enrique and is able to be liberated from amiodarone she may be ok for transfer out of ICU tomorrow. Recommendations Pulmonary: Acute on chronic hypoxic and hypercapnic respiratory failure - extubated - BiPAP 14/8 and a back up rate of 12 bpm while napping and at night - NC/HFNC during the day for sats 88-92% - negative fluid balance (see below) - I have started the process for obtaining a Trilogy on discharge - I will follow up as an outpatient COPD - will treat for exacerbation, although not currently clinically behaving as such - continue prednisone until 08/17/21 - will change nebs to prn - started back on home regimen of Stiolto and Flovent - s/p 5 days azithromycin Cardiac: Atrial Fibrillation - decrease amio drip to 0.5 - start PO amio - can likely stop amio drip tomorrow morning CHF Exacerbation - recommend negative fluid balance as below - 40mg IV Lasix bid - may need to scale this back depending on kidney function and UOP - spironolactone added by hospitalist Elevated troponin - demand related - no need to continue trending as it has plataeued Renal: WENDY - possibly congestion, now improved - continue to monitor UOP and Cr - diuresis and re-assess - daily lytes, Mg Hyperkalemia - improved I&O: Intake & Output 05/13/22 05/14/22 05/15/22 05/16/22 23:59 23:59 23:59 23:59 Intake Total 2758.226 / 2758.226 2913.347 / 2940.643 2586.206 / 2586.206 506.800 / 506.800 Output Total 1500 / 1500 2615 / 2675 3120 / 3120 200 / 200 Balance 1258.226 / 1258.226 298.347 / 265.643 -533.794 / -533.794 306.800 / 306.800 Weight 85.5 kg 84.5 kg 84.8 kg Daily Fluid Goal:: Negative 1 L in next 24 hours GI Nutrition: Nutrition - PEER FINANCIAL COUNSELOR evaluation today and then diet - can switch IV to PO meds once cleared to swallow Date of Last Bowel Movement: 05/15/22 Infectious Disease: Gram positive harsh bacteremia - MRSA nares - central line removed - on cefepime and vanc Hematologic: No acute concerns Neurologic: Seizure? - on Keppra - neurology consulted, will defer recs to them Endocrine: No acute concerns Lines: Midline Munoz Prophylaxis: on Heparin drip Code Status: Resuscitation Status Full Code Subjective Critical and life-threatening events over the past 24 hours: Елена is feeling better but is still confused. She tells me today that she is getting the tube taken out of her throat. I told her she had that done yesterday and this is why she is able to speak. She wore the BiPAP overnight and did very well on it. She denies pain but did complain of some chest tightness. Exam Narrative Exam Narrative: POCUS 05/10/22: All views visualized, parasternal view suboptimal. Likely borderline low EF, RV normal size and function. IVC 2.5cm with no collapse (while on 8 of PEEP). No pericardial effusion. No pleural effusions bilaterally. + significant B-lines posteriorly, non significant B-lines anteriorly. Gen: NAD, sedated and mechanicall ventilated HENT: PERRL, nasal turbinates normal without erythema or inflammation, moist oral mucosa, Mallampati 2, No LAD or JVD Chest: No respiratory distress, normal appearance of chest, clear to auscultation bilaterally, no anterior crackles, normal inspiratory effort Heart: regular rate and rhythym, no murmurs, rubs or gallops Abdomen: Non-distended, soft, non tender Extremities: No clubbing, no edema, cyanosis, rashes Neuro: tremor/myoclonus? present Psych: cooperative Most Recent VS/Results Last Vital Signs Temp 37 C 05/16/22 04:30 Pulse 74 05/16/22 04:01 Resp 22 05/16/22 05:00 BP 126/59 L 05/16/22 04:01 Pulse Ox 93 05/16/22 05:00 Laboratory Results - last 24 hr 05/13/22 05/15/22 05/15/22 05:35 05:35 15:35 APTT 17.8 L ABG Sample Site Cancelled Cancelled ABG pH Cancelled Cancelled ABG pCO2 Cancelled Cancelled ABG pO2 Cancelled Cancelled ABG HCO3 Cancelled Cancelled ABG Total CO2 Cancelled Cancelled ABG O2 Saturation Cancelled Cancelled ABG Base Excess Cancelled Cancelled Oxygen Liter Flow Cancelled Cancelled FiO2 Cancelled Cancelled 05/16/22 00:04 APTT 33.6 H ABG Sample Site ABG pH ABG pCO2 ABG pO2 ABG HCO3 ABG Total CO2 ABG O2 Saturation ABG Base Excess Oxygen Liter Flow FiO2 Review of Systems All systems reviewed & are unremarkable except as noted in HPI and below Time spent with patient Time spent in Critical Care: 40 Time spent in Critical care included: Chart review, Documenting critically ill care, Time at immediate bedside and Discussing critically ill care with other medical staff Multi-Disciplinary Checklist Lines/Tubes CENTRAL LINE: no ARTERIAL LINE: no MUNOZ: yes, Munoz Day#: 6 ENDOTRACHEAL TUBE: no ICU Maintenance GLUCOSE 140-180mg/dL: yes NUTRITION AT GOAL: no, Reason/Intervention: PE[employer] FINANCIAL COUNSELOR eval today and initiation of diet PRESSURE ULCER: no RESTRAINTS: no ANTIBIOTICS(if yes, consider Stewardship): Yes Social Issues FAMILY UPDATED: no, Reason/Intervention: discussed with patient PT/OT: yes GOALS/DISPOSITION/CRYSTAL LAPPER: yes CODE STATUS: Full Prophylaxis DVT PROPHYLAXIS: yes GI PROPHYLAXIS: no
[2022-05-16 08:04] LABS: Abs Immature Grans 0.11 10^3/uL (0.0-0.06); Absolute Basophil Count 0.02 10^3/uL (0.0-0.2); Absolute Eosinophil Count 0.12 10^3/uL (0.0-0.7); Absolute Lymphocyte Count 0.62 10^3/uL (1.2-3.4); Absolute Monocyte Count 0.98 10^3/uL (0.1-0.8); Absolute Neutrophil Count 7.45 10^3/uL (1.2-6.7); Basophils % 0.2; Eosinophils % 1.3; HCT 31.9 % (36.0-46.0); Immature Grans % 1.2; Lymphocytes % 6.7; MCH 25.1 pg (27.0-33.0); MCHC 28.2 % (32.0-36.0); MCV 89 fL (80-95); MPV 9.8 fL (8.0-11.0); Monocytes % 10.5; Neutrophils % 80.1; Nucleated RBC 0.2 % (0.0-0.3); Platelet Count 232 10^3/uL (130-400); RBC 3.59 10^6/uL (3.93-5.22); RDW 17.5 % (11.7-14.6); RDW-SD 56.7 fL
[2022-05-16] MEDS: Levalbuterol 1.25 MG/3 ML UPD VIAL UPD (08:14)
[2022-05-16] MEDS: Ipratropium 0.5 MG/2.5 ML UPD VIAL UPD (08:15)
[2022-05-16 08:21] LABS: PTT Activated 45.3 sec (21.0-27.5)
[2022-05-16 08:22] LABS: BUN 21 mg/dL (7-18); Calcium 8.6 mg/dL (8.5-10.1); Chloride 100 mmol/L (98-107); Glucose 102 mg/dL (74-106); Magnesium 1.8 mg/dL (1.8-2.4); Potassium 3.3 mmol/L (3.5-5.1); Sodium 143 mmol/L (136-145)
[2022-05-16 08:26] LABS: Vancomycin, Trough 18.1 ug/mL (10.0-20.0)
[2022-05-16] MEDS: Normal Saline Flush 10 ML SYR IVP ×2 (08:36→16:59)
[2022-05-16] MEDS: Furosemide 40 MG/4 ML VIAL IVP ×2 (08:36→16:59)
[2022-05-16] MEDS: predniSONE 20 MG TAB 40 MG PO (08:42)
[2022-05-16] MEDS: Norethindrone 5 MG TAB 10 MG PO ×2 (08:43→19:43)
--- NOTE | 2022-05-16 08:45 | RT.EKG_ITS ---
APPROVED REPORT Exam: Resting ECG Reason for Exam: conversion afib to NSR Patient Location: I HR:81 bpm ECG Measurements Heart Rate 81 AXIS NE 198 P 53 QRSd 94 QRS -24 QT 375 T -25 QTc 436 Conclusion Sinus rhythm...normal P axis, V-rate 50- 99 Supraventricular bigeminy...bigeminy string>4 w/ SV complexes Borderline left axis deviation...QRS axis (-15,-29) Low voltage, extremity leads...all extremity leads <0.5mV
--- NOTE | 2022-05-16 08:52 | W.PM.PROGNOT ---
Date of Service Date of service: 05/16/22 Time of Service: 08:52 Assessment and Plan Assessment and plan (1) Acute and chronic respiratory failure: Status: Acute Assessment and plan: In setting of COPD exacerbation, ISAURA as well as R-sided CHF. Extubated yesterday (05/15) I am unable to tell re diastolic dysfunction based on the echo read. Continue diuresis (Dr. Marrero has incr. lasix to 40 mg IV bid, I added low dose spironolactone 25 mg daily now she is able to take po, this will not only help w/ volume but also her low potassium which needs corrected. Continue steroids, nebs. Wean O2 as tolerated. Qualifiers: Respiratory failure complication: hypoxia and hypercapnia Qualified Code(s): J96.21 - Acute and chronic respiratory failure with hypoxia; J96.22 - Acute and chronic respiratory failure with hypercapnia (2) Central line infection: Status: Acute Assessment and plan: GPCs in blood cultures drawn from line. Line removed yesterday. She has two peripheral lines. Catheter tip culture ordered. Continue empiric vanco/cefepime. (3) Paroxysmal atrial fibrillation with rapid ventricular response: Status: Acute Assessment and plan: Bacteremia/line infection as well as her underlying ISAURA/COPD are contributors to her arrhythmia Continue amiodarone drip at 0.5 mg/minute, begin oral loading dose 400 mg bid x 10 days, then decrease to 200 mg daily, I would overlap her iv amiodarone and po amiodarone x 24 hours (i.e. until she has had at least couple doses of oral amiodarone) continue heparin drip, consider switch to DOAC (4) Ischemia of foot: Status: Acute Assessment and plan: I have added aspirin to her regimen; will watch foot closely, no ischemic pain in foot and sensation is intact; continue heparin drip; may need arteriogram (5) COPD (chronic obstructive pulmonary disease): Status: Chronic Assessment and plan: As above Qualifiers: COPD type: COPD with acute exacerbation Qualified Code(s): J44.1 - Chronic obstructive pulmonary disease with (acute) exacerbation (6) Elevated troponin I level: Status: Acute Assessment and plan: Likely Type 2 NSTEMI in setting of hypoxemia/respiratory failure/fluid overload. Echo: LVEF preserved; no wall motion abnormalities. Does have mild RV dilation on echo. Rate control imperative. (7) (HFpEF) heart failure with preserved ejection fraction: Status: Chronic Assessment and plan: as above (8) WENDY (acute kidney injury): Status: Acute Assessment and plan: monitor BMP and urine output; cont. diuresis per pulmonary service (9) Seizure: Status: Suspected Assessment and plan: suspected based on a tongue laceration. EEG not c/w epilepsy. Continue keppra for now. Consider MRI now that she is extubated. (10) DVT prophylaxis: Status: Acute Assessment and plan: Heparin gtt resumed (11) Discharge planning issues: Status: Acute Assessment and plan: Full code Keep in ICU for today but is she remains stable then possible transfer in 24 hours Total Critical Care Time 45 minutes. Subjective Subjective Interval history since last seen: Patient is s/p extubation d#2, she tolerated clears and her pills. No complaints of chest pain/pressure, no abdominal complaints. She has made it clear to me and her nurse that she does not want to be reintubated should the situation occur Exam Narrative Exam Narrative: Middle-aged white female who is sitting up in the bed semi-Medeiros position alert and oriented to person, place ([facility]), and date (month/year) and circumstances Lungs: some coarse adventitious breath sounds that clears w/ cough and deep breathing and after nebulizer Heart: regular (now in NSR since 2:30 am, converted from afib)] Abdomen: soft, nontender, normal bowel sounds, nondistended Blanchard catheter draining clear yellow urine Legs/feet: mottling over left foot at great toe and 2nd MTP w/ cool skin; non-palpable pedal pulses w/ faint doppler signal over P.T. but not over D.P., good signal at the popliteal; normal pulses and doppler over right foot and right foot has no mottling or coolness neuro: no focal motor deficits; sensory grossly intact over extremities Objective Last Vital Signs Temp 37 C 05/16/22 04:30 Pulse 74 05/16/22 04:01 Resp 22 05/16/22 05:00 BP 126/59 L 05/16/22 04:01 Pulse Ox 89 L 05/16/22 08:30 Laboratory Results - last 24 hr 05/13/22 05/15/22 05/15/22 05:35 05:35 15:35 WBC RBC Hgb Hct MCV MCH MCHC RDW Plt Count MPV Immature Gran % Neutrophils % Lymphocytes % Monocytes % Eosinophils % Basophils % Nucleated RBC % Absolute Neutrophils Absolute Lymphocytes Absolute Monocytes Absolute Eosinophils Absolute Basophils APTT 17.8 L ABG Sample Site Cancelled Cancelled ABG pH Cancelled Cancelled ABG pCO2 Cancelled Cancelled ABG pO2 Cancelled Cancelled ABG HCO3 Cancelled Cancelled ABG Total CO2 Cancelled Cancelled ABG O2 Saturation Cancelled Cancelled ABG Base Excess Cancelled Cancelled Oxygen Liter Flow Cancelled Cancelled FiO2 Cancelled Cancelled Sodium Potassium Chloride Carbon Dioxide Anion Gap BUN Creatinine Est GFR (CKD-EPI 2020) Glucose Calcium Magnesium Vancomycin Trough 05/16/22 05/16/22 05/16/22 00:04 07:40 07:40 WBC RBC Hgb Hct MCV MCH MCHC RDW Plt Count MPV Immature Gran % Neutrophils % Lymphocytes % Monocytes % Eosinophils % Basophils % Nucleated RBC % Absolute Neutrophils Absolute Lymphocytes Absolute Monocytes Absolute Eosinophils Absolute Basophils APTT 33.6 H ABG Sample Site ABG pH ABG pCO2 ABG pO2 ABG HCO3 ABG Total CO2 ABG O2 Saturation ABG Base Excess Oxygen Liter Flow FiO2 Sodium 143 Potassium 3.3 L Chloride 100 Carbon Dioxide 44.0 H Anion Gap -1.0 L BUN 21 H Creatinine 1.0 Est GFR (CKD-EPI 2020) 63.30 Glucose 102 Calcium 8.6 Magnesium 1.8 Vancomycin Trough 18.1 05/16/22 05/16/22 07:40 07:40 WBC 9.30 RBC 3.59 L Hgb 9.0 L Hct 31.9 L MCV 89 MCH 25.1 L MCHC 28.2 L RDW 17.5 H Plt Count 232 MPV 9.8 Immature Gran % 1.2 Neutrophils % 80.1 Lymphocytes % 6.7 Monocytes % 10.5 Eosinophils % 1.3 Basophils % 0.2 Nucleated RBC % 0.2 Absolute Neutrophils 7.45 H Absolute Lymphocytes 0.62 L Absolute Monocytes 0.98 H Absolute Eosinophils 0.12 Absolute Basophils 0.02 APTT 45.3 H ABG Sample Site ABG pH ABG pCO2 ABG pO2 ABG HCO3 ABG Total CO2 ABG O2 Saturation ABG Base Excess Oxygen Liter Flow FiO2 Sodium Potassium Chloride Carbon Dioxide Anion Gap BUN Creatinine Est GFR (CKD-EPI 2020) Glucose Calcium Magnesium Vancomycin Trough
[2022-05-16] MEDS: Mometasone 220 MCG 14 DOSE INHALER 1 PUFF IH ×2 (08:56→19:45)
[2022-05-16] MEDS: Tiotropium/Olodaterol 10 PUFF INHALER 2 PUFF IH (08:57)
[2022-05-16] MEDS: CEFEPIME 2 GM in Normal Saline 100 ML IVPB ×2 (08:58→21:18)
[2022-05-16] MEDS: Amiodarone in Dextrose 360 MG/200 ML BAG 16.667 MG IV ×2 (09:35→21:49)
[2022-05-16] MEDS: levETIRAcetam 1,000 MG in Normal Saline 100 ML 400 MG IVPB (09:45)
[2022-05-16] MEDS: Spironolactone 25 MG TAB PO (09:48)
[2022-05-16] MEDS: Aspirin 81 MG CHEW 324 MG CH (09:48)
[2022-05-16] MEDS: Amiodarone 200 MG TAB 400 MG PO ×2 (09:49→19:43)
[2022-05-16] MEDS: Potassium Chloride Liquid 20 MEQ PKT PO ×3 (09:49→19:43)
[2022-05-16] MEDS: Omnipaque 350 MG/ML 500 ML BTL-Imaging package IJ (10:45)
--- NOTE | 2022-05-16 11:20 | CMPROGNOTE_ITS ---
- If Service Date Differs Date of service: 05/16/22 Time of Service: Care Management Progress Note S/O: Deepthi continues to be closely monitored at ICU level of care, and her daughter Evonne was visiting today when CM talked to her RN. She remains on BIPAP, RT is working on obtaining a trilogy machine upon discharge. She was seen by speech therapy and palliative care today, and remains a full code. PT has not been able to work with her yet, but will follow her progress, and plans to see her once she is more stable. Her diet was advanced to clears, which she tolerated well. CM will continue to follow. A: Deepthi is a 61 female admitted to [facility] on 05/10/22 P: Елена is being closely monitored at ICU level of care. She will likely be discharged home when medically cleared by MD, with a resumption of HH RN. She will follow up with her PCP and plan of care and transport with family. CM will assess and support identified discharge needs.
[2022-05-16 11:30] LABS: Lactate 0.7 mmol/L (0.6-1.4)
--- NOTE | 2022-05-16 11:30 | SP_ITS ---
Date of service: 05/16/22 Time of Service: 12:48 Subjective Patient received alert/awake, agreeable to evaluation, able to communicate wants/needs effectively; able to demonstrate comprehension of recommendations for safe p.o. intake upon discharge once deemed medically stable.? patient and daughter both deny difficulties with swallowing prior to hospitalization, including pharyngeal stasis, difficulty chewing, coughing, throat clear, or wet vocal quality during meals. HPI: Елена is a 61 y/o F admitted with acute and chronic respiratory failure in setting of COPD exacerbation, ISAURA, and R-sided CHF. She was intubated for several days, extubated yesterday. Currently on BIPAP hoping to wean to HFNC. Also with elevated troponin and HFpEF, likely type 2 NSTEMI in setting of respiratory failure/fluid overload, as we ll as WENDY. Seizure was also suspected but EEG not c/w epilepsy. PFSH All Active Problems?(Updated 05/10/22 @ 15:59 by Chelsey Marrero MD) Leukocytosis (Acute) Hyperkalemia (Acute) CHF exacerbation (Acute) Acute on chronic respiratory acidosis (Acute) Respiratory failure with hypoxia and hypercapnia (Acute) WENDY (acute kidney injury) (Acute) Elevated troponin I level (Acute) Altered mental status (Acute) Hypercarbia (Acute) Acidemia (Acute) SOB (shortness of breath) (Acute) Hypercarbia (Acute) COPD exacerbation (Acute) Acute and chronic respiratory failure (Acute) Vaginal bleeding (Acute) Hyponatremia (Acute) Pulmonary hypertension (Chronic) Hypoxia (Chronic) (HFpEF) heart failure with preserved ejection fraction (Chronic) Anxiety (Chronic) Dyspnea (Acute) Acute anemia (Acute) Postmenopausal bleeding (Acute) Dyspnea on exertion (Acute) S/P left inguinal hernia repair (Acute) 01/21/19 Dr Odette Cormier, leftLeft inguinal hernia (Acute) Incarcerated inguinal hernia, unilateral (Acute) Small bowel obstruction (Acute) Dehydration (Acute) Hypertension (Chronic) Change in mental status (Acute) Cardiomyopathy (Acute) Iron deficiency anemia due to chronic blood loss (Chronic) Chronic bronchitis with COPD (chronic obstructive pulmonary disease) (Acute) Alcohol abuse (Acute) COPD (chronic obstructive pulmonary disease) (Chronic) Medical History? Alcoholic gastritis Former smoker Hyponatremia Mood disorder with psychosis Neck pain on right side Palliative care patient Pneumonia Post-menopausal bleeding Pulmonary hypertension Respiratory failure with hypoxia Uterine mass Not candidate for surgery at [facility] or [facility].08/10/21. Had partial uterine artery embolization. Unable to complete 2/2 hypoxia. Surgical History? EGD - MAC (07/04/16) Objective Objective Mental status: Oriented to date, month, year, self, reason for hospitalization. Follows multi-step instructions with occasional request for repetition. Respiratory Status: Per RN, patient trialed HFNC this date but unable to tolerate and was returned to BIPAP. For this evaluation, patient was put on 2L via NC to enable PO intake. Remained in 89-91% throughout evaluation. HR was in the upper 80's to 90's, respiratory rate variable from 18 to 30. Speech: without s/sx dysarthria Oral-Peripheral Exam Partial dentures. Good oral care, dry mucosa. Cranial nerve exam largely normal for strength and coordination. ' Difficult to palpate swallow due to obesity, but able to appreciate activation of suprahyoid muscles for volitional and naturalistic swallow. Voice is mildly rough/strained. Patient and daughter endorse it is much better than yesterday and almost back to baseline after intubation. PO Trials: Ice chips x5: no s/sx aspiration Thin liquids via tsp x8, via straw x6: no s/sx aspiration Puree (pudding) via tsp X7: minimal oral residue, timely transit, Patient with open mouth posture prior to breathing for deep inhale indicative of high work of breathing w hich increases risk of aspiration prior to/after the swallow. Did not trial any chewable solids at this time as they increase work of breathing. Assessment Patient OK to initiate puree diet in conservative amounts. Tolerates thin liquids while on NC this date, given 1:1 feeding assist via tsp or straw with instructions to take very small sips. No s/sx aspiration, but work of breathing is very high. 1:1 feeding for assist in setting of weakness and to monitor for respiratory tolerance as well as s/s aspiration. Caregivers should enforce frequent breathing breaks between bites/sips. If oxygen desaturates or patient with cough or wet/gurgly voice, discontinue trials. Aggressive oral care is necessary to mitigate pulmonary risks of aspiration; thorough oral care with friction using toothbrush on all oral structures should be performed every 3-4 hours minimum. NEURODIAGNOSTIC TECHNOLOGIST Services: Warranted while inpatient: NEURODIAGNOSTIC TECHNOLOGIST to follow up with patient tomorrow to monitor progress and ensure diet tolerance. Recommendations: IDDSI Level(s) SOLIDS 4-Pureed Solids LIQUIDS 0-Thin Liquids PO intake risk management as outlined Medication Intake: Whole with 4-Extremely Thick Liquids RISK MANAGEMENT: HOB upright as tolerated; upright for all PO intake. Encourage physical mobility as tolerated. Oral hygiene q4h/every 4 hours, before/after PO intake, using friction with toothbrush on all oral structures as tolerated ? Level of Assistance/Supervision: Assistive feeding only by trained staff/family PO intake only when awake/alert? Strategies/Adaptations/Assistive Equipment: Reduce auditory and/or visual distractions when eating, Provide verbal and/or visual cues to use recommended strategies, Small sips and bites when eating, Slow rate of intake, Small+frequent meals throughout day Posture/Positioning Needs: Maintain upright position at least 30 minutes after meals, Avoid meals/snacks 2- 3 hours prior to reclining/sleeping, Sleep with head of bed elevated to reduce likelihood of nocturnal reflux, Other Plan Short Term Goals: Patient will tolerate baseline diet without s/sx aspiration. Patient/caregiver will be independent with swallow strategies and risk management strategies. CODIN Clinical swallow evaluation, 35 minutes spent direct care with patient Coding
[2022-05-16] MEDS: VANCOMYCIN 750 MG in Normal Saline 250 ML 100 MG IVPB (12:55)
--- NOTE | 2022-05-16 13:26 | W.PALLCONSUL ---
Date of service: 05/16/22 Time of Service: 13:26 History of Present Illness History of Present Illness Chief Complaint: ACcute on Chronic respiratory failure Narrative: Ms. Marin is a 61-year-old woman with chronic respiratory failure on home oxygen, COPD, history of CO2 retention, anxiety, uterine mass (nonoperable), with several recent episodes of acute respiratory failure, who is waiting to get a Trilegy machine for home for treatment of ISAURA. 5 days ago she went to acute respiratory failure associated with possible seizures (see neurology note). She was intubated in the ER because of somnolence. In the past she said her episodes of acute respiratory failure have been manageable with BiPAP. As per ED notes, they were concerned about airway protection and therefore proceeded to intubation. She remained intubated for about 4 days. She was extubated yesterday and transitioned to BiPAP. She has been tolerating trials off of the BiPAP as well. Patient has been followed by Rubi Javier NP of the Palliative Medicine Service, last seen her about 6 weeks ago. Patient has stated repeatedly that she would want to be a full code. Then yesterday and today she mentioned to staff and her family that she does not want to be intubated again. Palliative care service is being consulted to review goals of care and CODE STATUS with patient today. Since spring 2021 she has had 4 admissions for acute on chronic respiratory failure requiring either BiPAP or intubation. In between she has been able to go back home to be cared for by her and daughter. She enjoys her time at home. Her sample preparation supervisor and PCP believed that ISAURA is contributing to development of these episodes of respiratory failure. Her health insurance has thus far been unwilling to approve the Trilogy apparatus. LAst week her pulmonoligist submitted yet another request. The hope of her family and medical providers is that once she is able to use this equipment at home, she will sleep better and be less likley to become hypercapneic and hypoxic.. What bothers you the most: Feeling like shit . (Cannot further describe) What worries you the most: Wondering if this is the end . Wondering if she is dying and if this is getting worse. Social history: Patient lives in [place] with her and dogs and cats. Daughter Evonne lives nearby and provides a lot of support. Patient is homebound, mostly sits in her chair, watches TV, able to do some light housework such as folding laundry. Rarely leaves the house. Has been on supplemental oxygen 24/7 for a while now. She denies feelings of depression. She enjoys being with her family and her pets. She wishes she could do more but does not have feelings of sadness. She does take fluoxetine. Dr. Eagle is her PCP and she has the highest regard for him, has worked with him for many years. She is not a baptist person and does not find spirituality to be helpful in dealing with stressful situations. She cannot identify anything special that helps her cope with her medical issues; I just have to live with it . Advance care planning: Advanced directive: March 2022 advance care directive scanned into chart. Healthcare agent: Daughter Evonne Hernandez COLST: None on file, patient has repeatedly requested full CPR and resuscitation. Palliative care review of systems: Pain: None Shortness of breath: Mild during visit Anorexia: Mild Nausea/vomiting/diarrhea/constipation: None Depression: Denies Pruritus: Denies Consults Consult date: 05/16/22 Requesting physician: Norman Wu Assessment and Plan Assessment and plan (1) Palliative care encounter: Status: Acute Assessment and plan: Goals of care discussion today with patient and her daughter. On closer questioning, she has no recollection of the period when she was intubated, on no pain or anxiety from this episode. She does feel quite tired and generally unwell at this time. She reports that she does not find being on BiPAP burdensome or uncomfortable and has been so for a few days at a time without difficulties. She still values her time at home with her family and pets. After consideration, she would accept a time-limited trial of intubation should she go into acute respiratory failure that is not amenable to noninvasive ventilation. She would want to limit this time trial to somewhere between 2 and 5 days. If she was not able to come off intubation at that point, she would want to transition to comfort care only. Additionally she would like to have all other treatments tried as needed including CPR, IV hydration, antibiotics , feeding tube Today we completed a COLST form that reflects her wishes as discussed above. Only change from previous wishes is adding a time-limited trial of intubation. Palliative care team is available to come and revise this at any time if desired by patient. Patient also understands that daughter Evonne is her healthcare agent and would act on her behalf if she no longer had capacity to do so herself. Additionally today, we did supportive counseling with patient and her daughter. Explored any additional support that they may need. We will check back in on the patient in about a week. We will also have Rubi Javier SATELLITE COMMUNICATIONS OPERATOR from palliative care follow-up with her (probably with a home visit) after discharge from the hospital. (2) Acute on chronic respiratory acidosis: Status: Acute Assessment and plan: See discussion above (3) COPD exacerbation: Status: Acute Assessment and plan: See discussion above (4) (HFpEF) heart failure with preserved ejection fraction: Status: Chronic Assessment and plan: See discussion above [facility] All Active Problems Palliative care encounter (Acute) Ischemia of foot (Acute) Central line infection (Acute) Paroxysmal atrial fibrillation with rapid ventricular response (Acute) PAF (paroxysmal atrial fibrillation) (Acute) Discharge planning issues (Acute) DVT prophylaxis (Acute) Leukocytosis (Acute) Hyperkalemia (Acute) CHF exacerbation (Acute) Acute on chronic respiratory acidosis (Acute) Respiratory failure with hypoxia and hypercapnia (Acute) WENDY (acute kidney injury) (Acute) Elevated troponin I level (Acute) Altered mental status (Acute) Hypercarbia (Acute) Acidemia (Acute) SOB (shortness of breath) (Acute) Hypercarbia (Acute) COPD exacerbation (Acute) Acute and chronic respiratory failure (Acute) Vaginal bleeding (Acute) Hyponatremia (Acute) Pulmonary hypertension (Chronic) Hypoxia (Chronic) (HFpEF) heart failure with preserved ejection fraction (Chronic) Anxiety (Chronic) Dyspnea (Acute) Acute anemia (Acute) Postmenopausal bleeding (Acute) Dyspnea on exertion (Acute) S/P left inguinal hernia repair (Acute) 01/21/19 Dr Odette Cormier, left Left inguinal hernia (Acute) Incarcerated inguinal hernia, unilateral (Acute) Small bowel obstruction (Acute) Dehydration (Acute) Hypertension (Chronic) Change in mental status (Acute) Cardiomyopathy (Chronic) Iron deficiency anemia due to chronic blood loss (Chronic) Chronic bronchitis with COPD (chronic obstructive pulmonary disease) (Acute) COPD (chronic obstructive pulmonary disease) (Chronic) Medical History Alcohol abuse History of alcohol abuse, reports sober since 2013 Alcoholic gastritis Former smoker Hyponatremia Mood disorder with psychosis Neck pain on right side Palliative care patient Pneumonia Post-menopausal bleeding Pulmonary hypertension Respiratory failure with hypoxia Uterine mass Not candidate for surgery at [facility] or [facility].08/10/21. Had partial uterine artery embolization. Unable to complete 2/2 hypoxia. 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 Daughter Evonne Hernandez Do you feel safe at home: Yes Do you feel safe in your relationship?: Yes Exam Narrative Exam Narrative: Pleasant obese woman appearing older than stated age laying in stretcher in ICU bed. Initially has BiPAP mask on but then is Switched oxygen via nasal cannula. Able to hold conversation. Unable to sit up on her own. Unable to hold a cup. Good eye contact. Recalls her daughter's phone number as well as her own birthday without difficulty. Speech is slow but appropriate. She has no respiratory distress. 1 short episode of coughing. Color is okay. Results Last Vital Signs Temp 37.9 C H 05/16/22 13:12 Pulse 79 05/16/22 13:12 Resp 21 05/16/22 13:12 BP 131/99 H 05/16/22 12:02 Pulse Ox 95 05/16/22 13:12 Labs Result diagrams: 05/16/22 07:40 05/16/22 07:40 Labs: Laboratory Results - last 24 hr 05/15/22 05/16/22 05/16/22 15:35 00:04 07:40 WBC RBC Hgb Hct MCV MCH MCHC RDW Plt Count MPV Immature Gran % Neutrophils % Lymphocytes % Monocytes % Eosinophils % Basophils % Nucleated RBC % Absolute Neutrophils Absolute Lymphocytes Absolute Monocytes Absolute Eosinophils Absolute Basophils APTT 17.8 L 33.6 H VBG Lactate Sodium Potassium Chloride Carbon Dioxide Anion Gap BUN Creatinine Est GFR (CKD-EPI 2020) Glucose Calcium Magnesium Vancomycin Trough 18.1 05/16/22 05/16/22 05/16/22 07:40 07:40 07:40 WBC 9.30 RBC 3.59 L Hgb 9.0 L Hct 31.9 L MCV 89 MCH 25.1 L MCHC 28.2 L RDW 17.5 H Plt Count 232 MPV 9.8 Immature Gran % 1.2 Neutrophils % 80.1 Lymphocytes % 6.7 Monocytes % 10.5 Eosinophils % 1.3 Basophils % 0.2 Nucleated RBC % 0.2 Absolute Neutrophils 7.45 H Absolute Lymphocytes 0.62 L Absolute Monocytes 0.98 H Absolute Eosinophils 0.12 Absolute Basophils 0.02 APTT 45.3 H VBG Lactate Sodium 143 Potassium 3.3 L Chloride 100 Carbon Dioxide 44.0 H Anion Gap -1.0 L BUN 21 H Creatinine 1.0 Est GFR (CKD-EPI 2020) 63.30 Glucose 102 Calcium 8.6 Magnesium 1.8 Vancomycin Trough 05/16/22 11:20 WBC RBC Hgb Hct MCV MCH MCHC RDW Plt Count MPV Immature Gran % Neutrophils % Lymphocytes % Monocytes % Eosinophils % Basophils % Nucleated RBC % Absolute Neutrophils Absolute Lymphocytes Absolute Monocytes Absolute Eosinophils Absolute Basophils APTT VBG Lactate 0.7 Sodium Potassium Chloride Carbon Dioxide Anion Gap BUN Creatinine Est GFR (CKD-EPI 2020) Glucose Calcium Magnesium Vancomycin Trough
[2022-05-16 14:24] LABS: PTT Activated 34.7 sec (21.0-27.5)
--- NOTE | 2022-05-16 14:36 | PT.INNT ---
Date of service: 05/16/22 Time of Service: 14:36 PT Notes Visit Reasons: Hypoxemic/Hypercarbic Respiratory Failure,Seizure Attempted to see patient twice and patient does not appear to be appropriate for PT at this time. Per Nurse Li, patient has not been doing well and may require further testing for a vascular issue. Will recheck patient in the morning and evaluate as ordered when appropriate. Thank you for the opportunity to participate in the care of this patient. Marie Murillo PT, DPT, CLT [facility] [place], [place]
--- NOTE | 2022-05-16 16:31 | PGE_ITS ---
Date of Service Date of service: 05/16/22 Time of Service: 16:31 Assessment and Plan Assessment and plan (1) Altered mental status: Status: Acute Assessment and plan: Patient with AMS in setting of hypoxemia and hypercapnea presumed to be secondary to CHF exacerbation. She was noted to have a tongue laceration on initial exam and thus concerns raised for possible seizure activity prior to arrival. Then with diffuse twitching, subtle myoclonus while intubated - captured on EEG with no epileptiform activity - so likely metabolic - and now resolved. Extubation delayed due to afib with RVR - now on heparin. Now also concern for L leg ischemia. Recommend brain MRI w/o as further work-up, especially in light of ischemic limb which raises possibility of ischemia elsewhere. Continue LEV 1000mg BID for no - but barring any major brain MRI findings, will likely d/c. Subjective Subjective Interval history since last seen: Handedness: right. Extubated yesterday and now on bipap. Seems at baseline. Diffusely weak. Concern for ischemic L foot. CTA performed today. On heparin since afib. No seizure activity. She has no history of seizures or family history of seizures. Numerous head injuries over the years. Sober from ETOH x 8.5 years. No history of GUEST SERVICE REPRESENTATIVE infection. Exam Narrative Exam Narrative: Physical Exam: Constitutional: Patient of apparent stated age, well nourished, well developed, no acute distress Extrem: Mottling/purpling L ball of foot Neuro: MS/Language/Speech: Alert, awake, on bipap, following commands Motor: Normal bulk and tone. FMM reduced bilaterally. Moves all extremities equally - diffusely weak 4/5. Coordination: no ataxia Gait: on bipap, unable to test Objective Last Vital Signs Temp 100.2 F H 05/16/22 13:12 Pulse 85 05/16/22 14:00 Resp 27 H 05/16/22 15:00 BP 144/93 H 05/16/22 14:00 Pulse Ox 92 05/16/22 16:25 Laboratory Results - last 24 hr 05/16/22 05/16/22 05/16/22 00:04 03:35 07:40 WBC RBC Hgb Hct MCV MCH MCHC RDW Plt Count MPV Immature Gran % Neutrophils % Lymphocytes % Monocytes % Eosinophils % Basophils % Nucleated RBC % Absolute Neutrophils Absolute Lymphocytes Absolute Monocytes Absolute Eosinophils Absolute Basophils APTT 33.6 H 34.7 H VBG Lactate Sodium Potassium Chloride Carbon Dioxide Anion Gap BUN Creatinine Est GFR (CKD-EPI 2020) Glucose Calcium Magnesium Vancomycin Trough 18.1 05/16/22 05/16/22 05/16/22 07:40 07:40 07:40 WBC 9.30 RBC 3.59 L Hgb 9.0 L Hct 31.9 L MCV 89 MCH 25.1 L MCHC 28.2 L RDW 17.5 H Plt Count 232 MPV 9.8 Immature Gran % 1.2 Neutrophils % 80.1 Lymphocytes % 6.7 Monocytes % 10.5 Eosinophils % 1.3 Basophils % 0.2 Nucleated RBC % 0.2 Absolute Neutrophils 7.45 H Absolute Lymphocytes 0.62 L Absolute Monocytes 0.98 H Absolute Eosinophils 0.12 Absolute Basophils 0.02 APTT 45.3 H VBG Lactate Sodium 143 Potassium 3.3 L Chloride 100 Carbon Dioxide 44.0 H Anion Gap -1.0 L BUN 21 H Creatinine 1.0 Est GFR (CKD-EPI 2020) 63.30 Glucose 102 Calcium 8.6 Magnesium 1.8 Vancomycin Trough 05/16/22 11:20 WBC RBC Hgb Hct MCV MCH MCHC RDW Plt Count MPV Immature Gran % Neutrophils % Lymphocytes % Monocytes % Eosinophils % Basophils % Nucleated RBC % Absolute Neutrophils Absolute Lymphocytes Absolute Monocytes Absolute Eosinophils Absolute Basophils APTT VBG Lactate 0.7 Sodium Potassium Chloride Carbon Dioxide Anion Gap BUN Creatinine Est GFR (CKD-EPI 2020) Glucose Calcium Magnesium Vancomycin Trough
--- NOTE | 2022-05-16 17:58 | CHAPLAIN ---
Deepthi is here for acute respiratory failure. She was extubated yesterday after being intubated in the ED a few days ago. She as been admitted, and sometimes intubated, since the spring. Елена had a PC consult today and told Genna Oglesby NP that she does not find spiritual support helpful or comforting. I introduced myself to Deepthi before I read Genna's note. She was polite but not interested in further conversation.
[2022-05-16] MEDS: levETIRAcetam 500 MG TAB 1000 MG PO (19:42)
[2022-05-16] MEDS: Protein Nutritional Supplement 16 GM 1 OUNCE PACKET PO (19:43)
[2022-05-17] VITALS (50 sets, daily range): BP systolic 111–150; BP diastolic 66–127; PULSE 42–130; RESP 14–32; TEMP 31–37.4; O2SAT 88–98
[2022-05-17] MEDS: VANCOMYCIN 750 MG in Normal Saline 250 ML 100 MG IVPB ×3 (00:24→23:35)
[2022-05-17] MEDS: Metoprolol 25 MG TAB PO (00:25)
[2022-05-17 05:40] LABS: Abs Immature Grans 0.12 10^3/uL (0.0-0.06); Absolute Basophil Count 0.03 10^3/uL (0.0-0.2); Absolute Eosinophil Count 0.12 10^3/uL (0.0-0.7); Absolute Lymphocyte Count 0.73 10^3/uL (1.2-3.4); Absolute Monocyte Count 1.01 10^3/uL (0.1-0.8); Absolute Neutrophil Count 7.75 10^3/uL (1.2-6.7); Basophils % 0.3; Eosinophils % 1.2; HCT 33.2 % (36.0-46.0); HGB 9.5 g/dL (11.2-15.7); Immature Grans % 1.2; Lymphocytes % 7.5; MCH 25.5 pg (27.0-33.0); MCHC 28.6 % (32.0-36.0); MCV 89 fL (80-95); Monocytes % 10.3; Neutrophils % 79.5; Nucleated RBC 0.2 % (0.0-0.3); Platelet Count 291 10^3/uL (130-400); RBC 3.73 10^6/uL (3.93-5.22); RDW 17.2 % (11.7-14.6); WBC 9.76 10^3/uL (4.4-10.8)
[2022-05-17 06:00] LABS: ALT 56 U/L (14-59); AST 24 U/L (15-37); Albumin 2.7 g/dL (3.4-5.0); Alkaline Phosphatase 46 U/L (46-116); BUN 21 mg/dL (7-18); Bilirubin, Total 0.5 mg/dL (0.2-1.0); CREATININE 0.9 mg/dL (0.55-1.02); Calcium 9.2 mg/dL (8.5-10.1); Chloride 98 mmol/L (98-107); Estimated GFR 71.83 (mL/min/1.73m2); Glucose 118 mg/dL (74-106); Potassium 3.5 mmol/L (3.5-5.1); Sodium 141 mmol/L (136-145); Total Protein 6.2 g/dL (6.4-8.2)
[2022-05-17 06:02] LABS: Anion Gap -2.00001 mmol/L (3-11); CO2 > 45.0 mmol/L (21.0-32.0)
[2022-05-17] MEDS: Tiotropium/Olodaterol 10 PUFF INHALER 2 PUFF IH (07:40)
[2022-05-17] MEDS: Mometasone 220 MCG 14 DOSE INHALER 1 PUFF IH ×2 (07:40→20:37)
--- NOTE | 2022-05-17 08:42 | W.PM.PROGNOT ---
Date of Service Date of service: 05/17/22 Time of Service: 08:42 Assessment and Plan Assessment and plan (1) Acute and chronic respiratory failure: Status: Acute Assessment and plan: acute on chronic hypoxemic/hypercarbic respiratory failure d/t COPD and ISAURA; patient was intubated on admission (05/10) and extubated on 05/15. She still requires support w/ BIPAP and will continue to need this especially when sleeping. We will continue trials off BIPAP w/ use of HFNC during the day, particularly at meal times but will use BIPAP whenever she sleeps or when she fatigues. Dr. Marrero is working on getting her qualified for Trelegy device. Critical care time spent interviewing and examining the patient, reviewing studies, discussing case with patient's nurse and consulting physicians was 60 minutes Qualifiers: Respiratory failure complication: hypoxia and hypercapnia Qualified Code(s): J96.21 - Acute and chronic respiratory failure with hypoxia; J96.22 - Acute and chronic respiratory failure with hypercapnia (2) Central line infection: Status: Suspected Assessment and plan: probably contaminant, blood cultures from 05/13 (peripheral draw) showed no growth, blood culture 05/13 from central line grew Staph epi from anaerobic culture; repeat blood cultures from 05/15 1 set had no growth, the other set had aerobic bottle positive for gram positive rods, Bacillus species, not anthracis. This likely is contaminant. I will check procalcitonin level and if normal the consider dc antibiotics (currently on cefepime and vancomycin). Her MRSA was negative and sputum culture from 05/14 showed no growth (3) Paroxysmal atrial fibrillation with rapid ventricular response: Status: Acute Assessment and plan: patient on amiodarone 0.5 mg/hr along w/ loading oral dose at 400 mg bid; she is on lopressor 25 mg qid. I will increase her lopressor, dc the iv amiodarone but continue loading of amiodarone at 400 mg bid for 12 to 14 days (total loading dose of 12 to 16 gm). (4) Ischemia of foot: Status: Acute Assessment and plan: Patient has bilateral PAD per her CTA of her legs. Most notably she has occluded R. SFA; I discussed her clinical presentation, lack of ischemic pain or ulcerations and intact sensation in her feet along w/ the CTA findings w/ vascular surgeon, Dr. Evangelista at [facility] [place]. He feels that the occluded SFA on the right is probably chronic and she has collateral flow to the right foot and for that reason we are able to obtain pulses and the right foot is warm. He concurs w/ use of anticoagulation along w/ ASA and to check CHRISTY. If CHRISTY in her legs is <0.5 or if she gets ischemic pain or ischemic changes in her exam then he indicated that we are to call [facility] [place] and he will arrange transfer for acute intervention, otherwise she should reduce her vascular risk factors, i.e. statin for HLD, stop smoking, continue ASA and DOAC and follow up w/ vascular clinic at [facility] [place]. (5) COPD (chronic obstructive pulmonary disease): Status: Chronic Assessment and plan: As above, use of HFNC, BIPAP and bronchodilators Qualifiers: COPD type: COPD with acute exacerbation Qualified Code(s): J44.1 - Chronic obstructive pulmonary disease with (acute) exacerbation (6) Elevated troponin I level: Status: Acute Assessment and plan: type II demand ischemia; preserved LV and RV function per echo 05/10 (7) (HFpEF) heart failure with preserved ejection fraction: Status: Chronic Assessment and plan: diuretics (remains on lasix 40 mg iv q12h, I added spironolactone 25 mg daily); beta blockers w/ titration to control her afib rate; anticoagulation; consider Jardiance (I will hold on this until she is on a stable dose of diuretics) (8) Anemia: Status: Chronic Assessment and plan: NC/NC; will check iron/TIBC/ferritin/B12 and folate levels. she is already on MVS, she may benefit from iron supplementation. As she is on prednisone for her COPD and anticoagulation (heparin to be changed to apixaban), and now ASA for PAD, she needs to have GI protection w/ a PPI (9) WENDY (acute kidney injury): Status: Resolved Assessment and plan: resolved. stable BUN and creatinine despite iv diuretics. cont. to monitor U.O. and daily BMP. (10) Seizure: Status: Suspected Assessment and plan: unclear as to whether or not she acutally had seizure; Keppra intiated based on presenting symptoms. check MRI of brain; if no tumor or CVA then will dc Keppra per neurology recommendation (11) DVT prophylaxis: Status: Acute Assessment and plan: currently on heparin drip; will change to apixaban today (12) Discharge planning issues: Status: Acute Assessment and plan: Full code Keep in ICU for today but is she remains stable then possible transfer in 24 hours Total Critical Care Time 60 minutes. case discussed w/ Dr. Marrero and nursing as well as w/ Dr. Evangelista Subjective Subjective Interval history since last seen: Елена offers no new complaints. She denies any chest pain is not short of breath with normal conversation however she is intermittently required going back on BiPAP. She is currently on high flow nasal cannula @ 50 lpm and 34% FIO2. She is tolerating a diet. Exam Narrative Exam Narrative: Елена is sitting up in bed alert and oriented person place and circumstance. She denies any CP or leg/foot pain Neck: obese, difficult to discern JVD, normal carotid pulses although tachycardica and irregular Lungs: some adventitious upper airway sounds; no wheezing; diminished breath sounds at the bases w/ some rales at right base Heart: irregularly irregular; she is now back in afib at rates in the 110's Abdomen: small umbilical hernia; not incarcerated; soft, nontender; normal bowel sounds Legs/feet: left foot is now warm compared to yesterday; there is palpable PT pulse but still not able to feel DP pulse; cyanosis of left great toe is better/resolving but still w/ some cyanosis over left 2nd MTP; no mottling of right foot and she has palpable DP and PT pulses over right foot; she has normal sensation to light touch over both feet Neuro: no focal motor or sensory deficits; cognition is intact Objective Last Vital Signs Temp 37.1 C 05/17/22 00:00 Pulse 118 H 05/17/22 07:45 Resp 32 H 05/17/22 07:45 BP 147/98 H 05/17/22 06:00 Pulse Ox 98 05/17/22 07:45 Laboratory Results - last 24 hr 05/16/22 05/16/22 05/16/22 03:35 11:20 21:00 WBC RBC Hgb Hct MCV MCH MCHC RDW Plt Count MPV Immature Gran % Neutrophils % Lymphocytes % Monocytes % Eosinophils % Basophils % Nucleated RBC % Absolute Neutrophils Absolute Lymphocytes Absolute Monocytes Absolute Eosinophils Absolute Basophils APTT 34.7 H Cancelled VBG Lactate 0.7 Sodium Potassium Chloride Carbon Dioxide Anion Gap BUN Creatinine Est GFR (CKD-EPI 2020) Glucose Calcium Total Bilirubin AST ALT Alkaline Phosphatase Total Protein Albumin 05/16/22 05/17/22 05/17/22 21:03 05:15 05:15 WBC 9.76 RBC 3.73 L Hgb 9.5 L Hct 33.2 L MCV 89 MCH 25.5 L MCHC 28.6 L RDW 17.2 H Plt Count 291 MPV 10.0 Immature Gran % 1.2 Neutrophils % 79.5 Lymphocytes % 7.5 Monocytes % 10.3 Eosinophils % 1.2 Basophils % 0.3 Nucleated RBC % 0.2 Absolute Neutrophils 7.75 H Absolute Lymphocytes 0.73 L Absolute Monocytes 1.01 H Absolute Eosinophils 0.12 Absolute Basophils 0.03 APTT 51.0 H VBG Lactate Sodium 141 Potassium 3.5 Chloride 98 Carbon Dioxide > 45.0 H Anion Gap -2.28658 L BUN 21 H Creatinine 0.9 Est GFR (CKD-EPI 2020) 71.83 Glucose 118 H Calcium 9.2 Total Bilirubin 0.5 AST 24 ALT 56 Alkaline Phosphatase 46 Total Protein 6.2 L Albumin 2.7 L 05/17/22 05:15 WBC RBC Hgb Hct MCV MCH MCHC RDW Plt Count MPV Immature Gran % Neutrophils % Lymphocytes % Monocytes % Eosinophils % Basophils % Nucleated RBC % Absolute Neutrophils Absolute Lymphocytes Absolute Monocytes Absolute Eosinophils Absolute Basophils APTT 46.0 H VBG Lactate Sodium Potassium Chloride Carbon Dioxide Anion Gap BUN Creatinine Est GFR (CKD-EPI 2020) Glucose Calcium Total Bilirubin AST ALT Alkaline Phosphatase Total Protein Albumin
[2022-05-17] MEDS: predniSONE 20 MG TAB 40 MG PO (09:37)
[2022-05-17] MEDS: levETIRAcetam 500 MG TAB 1000 MG PO ×2 (09:37→20:36)
[2022-05-17] MEDS: Norethindrone 5 MG TAB 10 MG PO ×2 (09:37→20:36)
[2022-05-17] MEDS: Potassium Chloride Liquid 20 MEQ PKT PO (09:38)
[2022-05-17] MEDS: Amiodarone 200 MG TAB 400 MG PO ×2 (09:38→20:37)
[2022-05-17] MEDS: Metoprolol 50 MG TAB PO ×3 (09:38→20:37)
[2022-05-17] MEDS: Spironolactone 25 MG TAB PO (09:38)
[2022-05-17] MEDS: Aspirin 81 MG CHEW PO (09:38)
[2022-05-17] MEDS: Furosemide 40 MG/4 ML VIAL IVP ×2 (09:39→16:30)
[2022-05-17] MEDS: Multivitamin w/Minerals TAB 1 TAB PO (09:57)
[2022-05-17] MEDS: Apixaban 5 MG TAB PO ×2 (09:58→20:36)
[2022-05-17] MEDS: Normal Saline Flush 10 ML SYR IVP ×4 (09:58→23:37)
[2022-05-17] MEDS: Pantoprazole 40 MG TABCR PO (09:58)
[2022-05-17] MEDS: Protein Nutritional Supplement 16 GM 1 OUNCE PACKET PO ×2 (10:00→20:35)
[2022-05-17] MEDS: CEFEPIME 2 GM in Normal Saline 100 ML IVPB (10:00)
--- NOTE | 2022-05-17 10:10 | PT.INIE ---
Date of service: 05/17/22 Time of Service: 10:10 PT Notes Visit Reasons: Hypoxemic/Hypercarbic Respiratory Failure,Seizure Physical Therapy Inpatient Initial Evaluation Date: 05/17/2022 Referring Doctor: Laura Mars MD PT Orders: PT CONSULT: Limited ability Precautions: Fall. Standard. Activity as tolerated. Patient Profile/Admitting Diagnosis: Deepthi is a 61-year-old female with diagnoses of acute and chronic respiratory failure, central line infection, PAF with RVR, ischemia L foot, COPD exacerbation, elevated troponin level, HFpEF heart failure with preserved ejection fraction, anemia, acute kidney injury, and seizure. PMHX: All Active Problems?(Updated 05/10/22 @ 15:59 by Chelsey Marrero MD) Leukocytosis (Acute) Hyperkalemia (Acute) CHF exacerbation (Acute) Acute on chronic respiratory acidosis (Acute) Respiratory failure with hypoxia and hypercapnia (Acute) WENDY (acute kidney injury) (Acute) Elevated troponin I level (Acute) Altered mental status (Acute) Hypercarbia (Acute) Acidemia (Acute) SOB (shortness of breath) (Acute) Hypercarbia (Acute) COPD exacerbation (Acute) Acute and chronic respiratory failure (Acute) Vaginal bleeding (Acute) Hyponatremia (Acute) Pulmonary hypertension (Chronic) Hypoxia (Chronic) (HFpEF) heart failure with preserved ejection fraction (Chronic) Anxiety (Chronic) Dyspnea (Acute) Acute anemia (Acute) Postmenopausal bleeding (Acute) Dyspnea on exertion (Acute) S/P left inguinal hernia repair (Acute) 01/21/19 Dr Odette Cormier, leftLeft inguinal hernia (Acute) Incarcerated inguinal hernia, unilateral (Acute) Small bowel obstruction (Acute) Dehydration (Acute) Hypertension (Chronic) Change in mental status (Acute) Cardiomyopathy (Acute) Iron deficiency anemia due to chronic blood loss (Chronic) Chronic bronchitis with COPD (chronic obstructive pulmonary disease) (Acute) Alcohol abuse (Acute) COPD (chronic obstructive pulmonary disease) (Chronic) Medical History? Alcoholic gastritis Former smoker Hyponatremia Mood disorder with psychosis Neck pain on right side Palliative care patient Pneumonia Post-menopausal bleeding Pulmonary hypertension Respiratory failure with hypoxia Uterine mass Not candidate for surgery at [facility] or [facility].08/10/21. Had partial uterine artery embolization. Unable to complete 2/2 hypoxia. Surgical History? EGD - MAC (07/04/16) Social History/Home Situation: Lives with in a private home with 4 steps to enter with rails on both sides. Independent with mobility ADLs prior to admission. cooks meals while she does laundry. Still drives. Equipment Owned/DME: BSC, FWW, SPC, shower seat Subjective: Reports shortness of breath with the smallest of activity. Needs frequent rests. Denies pain in B lower extremities. Objective: General Observation: Supine in bed. On HF oxygen supp. telemetry monitoring in place. Blanchard catheter in place. Mental Status: Alert and oriented as to person, place, time, and purpose. Able to pay attention, focus, and respond appropriately. Pain: Denies Vital Signs: Oxygen saturation lowest at 90% and highest of 93% on HF setting ROM: Right Upper Extremity: Shoulder Flexion WFL. Shoulder abduction WFL. Elbow flexion WFL. Wrist flexion WFL. Functional opening and closing of hand WFL. Left Upper Extremity: Shoulder Flexion WFL. Shoulder abduction WFL. Elbow flexion WFL. Wrist flexion WFL. Functional opening and closing of hand WFL. Right Lower Extremity: Hip flexion lacks the last 25% of AROM. Hip abduction WFL. Knee flexion WFL. Ankle dorsiflexion to neutral only. Ankle plantarflexion WFL. Left Lower Extremity: Hip flexion lacks the last 25% of AROM. Hip abduction WFL. Knee flexion WFL. Ankle dorsiflexion to neutral only. Ankle plantarflexion WFL. Strength: Right Upper Extremity: Shoulder flexors 4-/5. Shoulder abductors 4-/5. Elbow flexors 4-/5. Elbow extensors 4-/5. Stone Driller Helper strong. Left Upper Extremity: Shoulder flexors 4-/5. Shoulder abductors 4-/5. Elbow flexors 4-/5. Elbow extensors 4-/5. Stone Driller Helper strong. Right Lower Extremity: Hip flexors 3-/5. Hip abductors 4-/5. Knee flexors 4-/5. Knee extensors 4-/5. Ankle dorsiflexors 3-/5. Ankle plantarflexors 3-/5. Left Lower Extremity: Hip flexors 3-/5. Hip abductors 4-/5. Knee flexors 4-/5. Knee extensors 4-/5. Ankle dorsiflexors 3-/5. Ankle plantarflexors 3-/5. Bed Mobility/Transfers: (NAYANA Vallejo helped out for line management and safety) Supine to sit minimal assist with HOB at 45 degrees Sit to stand minimal assist Stand to sit with minimal assist and SBA of another for line management Bed to bedside commode minimal assist of 2 Bedside commode to bedside chair minimal assist of 2 Gait: Instructed patient with level surface ambulation of 5 feet requiring minimal assist of 2. Migdalia decreased. Step height decreased. Step length decreased. Moderate shortness of breath that subsided with activity. Reports increased weakness in B LE that resolved with rest. Balance: Static Sitting: Good Dynamic Sitting: Normal Static Standing: Fair Dynamic Standing: Poor Special Tests: Mobility Limitations Standardized Measure [facility] AM-PAC 6 clicks Basic Mobility Inpatient Short Form: Raw Score: 11 CMS Score: 73% deficit Informed Consent/Education: Patient was instructed in purpose of PT consult and plan of care. Agreeable to proceed with established PT POC to achieve personal goals. Assessment: Deepthi is a 61-year-old female with diagnoses of acute and chronic respiratory failure, central line infection, PAF with RVR, ischemia L foot, COPD exacerbation, elevated troponin level, HFpEF heart failure with preserved ejection fraction, anemia, acute kidney injury, and seizure. Low endurance, needs frequent rests. Remains on high flow oxygen supplementation. Patient presents with clinical signs and symptoms consistent with current/admitting diagnoses that have resulted to mobility limitations, gait instability, generalized weakness, and overall ADL decline as demonstrated by the following impairment level findings: 1. Decreased strength to B LE major muscle groups 2. Impaired sitting/standing balance 3. Impaired activity tolerance 4. Shortness of breath 5. Swelling Impairments are contributing to the following functional limitations: 1. Decline in bed mobility skills 2. Decline in transfer skills 3. Difficulty with ambulation without assistive device and physical assistance 4. Increased completion time for mobility ADL performance 5. Increased risk for falls 6. Difficulty with managing steps alone safely 7. On high flow rate oxygen supp Patient is assessed as a 10167 moderate complexity based on the following: History: 61-year-old female with past medical history as indicated above Examination: Demonstrable impairment in strength, balance, and mobility level with underlying impairments and functional limitations as exhibited above as well as deficit score of 73% utilizing the [facility] Mobility Inpatient Short Form Presentation: Evolving Decision Makin moderate complexity Goals: Goals X1 week 1. Supine-Sit independent 2. Sit-Supine independent 3. Sit-Stand independent 4. Stand-Sit independent with FWW 5. Bed-Chair independent with FWW 6. Chair-Bed independent with FWW 7. Independent gait on level surface with use of FWW for at least 100 feet without report of pain nor dyspnea 8. Independent stair negotiation while holding onto B rails for at least 4 steps without report of pain nor dyspnea 10. Good static and dynamic standing balance/tolerance Plan of Care/Treatment Plan: 1-2x/day, 7 days/week x 1 week. Plan of care has been reviewed with the PERFORMANCE MAKEUP ARTIST providing the service under Physical Therapy direction. Initiate Physical Therapy intervention for pain management as needed, strengthening, bed mobility, transfers, gait, stairs, balance training, and use of assistive device. DISCHARGE RECOMMENDATIONS: [] Home with no services [] [] Home with services [specify] [] Home with outpatient PT [] [] SNF for continued rehabilitation [] [] Prison [facility] [] [] SNF versus LTC based on ability to participate and progress [] [X] SNF vs PT depending on progress towards goals TREATMENT CODE/TIME: 25205 x 20 minutes, 54937 x 19 minutes beginning at 10:10 AM. Thank you for the opportunity to participate in the care of this patient. Marie Murillo PT, DPT, CLT [facility] [place], [place]
--- NOTE | 2022-05-17 10:14 | W.PULMCC ---
General Date of Service Date of service: 05/17/22 Time of Service: 08:00 Reason for Admission to ICU: Acute on chronic hypoxic and hypercapnic respiratory failure. Assessment and Plan Assessment and plan (1) Seizure: Status: Suspected (2) WENDY (acute kidney injury): Status: Resolved (3) Elevated troponin I level: Status: Acute (4) Altered mental status: Status: Acute (5) Respiratory failure with hypoxia and hypercapnia: Status: Acute (6) PAF (paroxysmal atrial fibrillation): Status: Acute (7) Acute on chronic respiratory acidosis: Status: Acute (8) COPD exacerbation: Status: Acute (9) CHF exacerbation: Status: Acute (10) Hyperkalemia: Status: Acute (11) Leukocytosis: Status: Acute Assessment and plan: This is a co-morbid 61 yo admitted to the ICU for acute on chronic hypoxic and hypercapnic respiratory failure. She diuresed well in the last 24 hours. She is back in A. fib today, but relatively rate controlled. I think the amiodarone drip be stopped and her A. fib now managed with PO meds, especially given her good BP now. She required a fair amount of HFNC and BiPAP yesterday, so she should remain in the ICU for at least another day. We will work on getting out of the bed to a chair and working with PT today. Her blood culture returned as a bacillus specieis, not anthraces. The catheter tip also grew gram positives. Her MRSA nares was negative, but with the bacillus speciation my concern is for catheter related B. cereus (cathether tip positive to gram positive bugs), which is probably resistant to cefepime, so the vanc should be continued. Recommendations Pulmonary: Acute on chronic hypoxic and hypercapnic respiratory failure - extubated - BiPAP 14/8 and a back up rate of 12 bpm while napping and at night - NC/HFNC during the day for sats 88-92% - negative fluid balance (see below) - I have started the process for obtaining a Trilogy on discharge - I will follow up as an outpatient - out of bed to chair and PT consultation today COPD - will treat for exacerbation, although not currently clinically behaving as such - stop prednisone today - will change nebs to prn - started back on home regimen of Stiolto and Flovent - s/p 5 days azithromycin Cardiac: Atrial Fibrillation - can stop amiodaron drip - started PO amio and metoprolol CHF Exacerbation - recommend negative fluid balance as below - 40mg IV Lasix bid - may need to scale this back depending on kidney function and UOP - spironolactone added by hospitalist Elevated troponin - demand related - no need to continue trending as it has plataeued Renal: WENDY - possibly congestion, now improved - continue to monitor UOP and Cr - diuresis and re-assess - daily lytes, Mg Hyperkalemia - improved I&O: Intake & Output 05/14/22 05/15/22 05/16/22 05/17/22 23:59 23:59 23:59 23:59 Intake Total 2913.347 / 2940.643 2686.206 / 2686.206 1939.633 / 1939.633 Output Total 2615 / 2675 3120 / 3120 4750 / 4750 425 / 425 Balance 298.347 / 265.643 -433.794 / -433.794 -2810.367 / -2810.367 -425 / -425 Weight 84.5 kg 84.8 kg 83.3 kg 83.3 kg Daily Fluid Goal:: Negative 1 L in next 24 hours GI Nutrition: Nutrition - CERTIFIED INDOOR ENVIRONMENTALIST evaluation today and then diet - can switch IV to PO meds once cleared to swallow Date of Last Bowel Movement: 05/15/22 Infectious Disease: Bacillus bacteremia - MRSA nares negative - central line removed - tip culture and grew gram positive zari - on cefepime and vanc - would continue for now given possibility of B. cereus - once speciated and resistances tested can narrow Hematologic: No acute concerns Neurologic: Seizure? - on Keppra - MRI being done today - neurology consulted, will defer recs to them Endocrine: No acute concerns Lines: Midline Munoz Prophylaxis: on Heparin drip Code Status: Resuscitation Status Full Code Subjective Critical and life-threatening events over the past 24 hours: Елена is looking and feeling much better today. Everyday she is improving a bit. She has some discomfort with her umbilical hernia. She denies leg pain. She does still get short of breath and does feel better on HFNC and BiPAP. Exam Narrative Exam Narrative: POCUS 05/10/22: All views visualized, parasternal view suboptimal. Likely borderline low EF, RV normal size and function. IVC 2.5cm with no collapse (while on 8 of PEEP). No pericardial effusion. No pleural effusions bilaterally. + significant B-lines posteriorly, non significant B-lines anteriorly. Gen: NAD, sedated and mechanicall ventilated HENT: PERRL, nasal turbinates normal without erythema or inflammation, moist oral mucosa, Mallampati 2, No LAD or JVD Chest: No respiratory distress, normal appearance of chest, clear to auscultation bilaterally, no anterior crackles, normal inspiratory effort Heart: regular rate and rhythym, no murmurs, rubs or gallops Abdomen: Non-distended, soft, non tender Extremities: No clubbing, no edema, cyanosis, rashes - warm B/L feet. Absent palpable pulses on left foot, positive palpable pulses on right foot. Neuro: non focal Psych: cooperative Most Recent VS/Results Last Vital Signs Temp 37.1 C 05/17/22 00:00 Pulse 118 H 05/17/22 07:45 Resp 32 H 05/17/22 07:45 BP 147/98 H 05/17/22 06:00 Pulse Ox 98 05/17/22 07:45 Laboratory Results - last 24 hr 05/16/22 05/16/22 05/16/22 03:35 11:20 21:00 WBC RBC Hgb Hct MCV MCH MCHC RDW Plt Count MPV Immature Gran % Neutrophils % Lymphocytes % Monocytes % Eosinophils % Basophils % Nucleated RBC % Absolute Neutrophils Absolute Lymphocytes Absolute Monocytes Absolute Eosinophils Absolute Basophils APTT 34.7 H Cancelled VBG Lactate 0.7 Sodium Potassium Chloride Carbon Dioxide Anion Gap BUN Creatinine Est GFR (CKD-EPI 2020) Glucose Calcium Total Bilirubin AST ALT Alkaline Phosphatase Total Protein Albumin 05/16/22 05/17/22 05/17/22 21:03 05:15 05:15 WBC 9.76 RBC 3.73 L Hgb 9.5 L Hct 33.2 L MCV 89 MCH 25.5 L MCHC 28.6 L RDW 17.2 H Plt Count 291 MPV 10.0 Immature Gran % 1.2 Neutrophils % 79.5 Lymphocytes % 7.5 Monocytes % 10.3 Eosinophils % 1.2 Basophils % 0.3 Nucleated RBC % 0.2 Absolute Neutrophils 7.75 H Absolute Lymphocytes 0.73 L Absolute Monocytes 1.01 H Absolute Eosinophils 0.12 Absolute Basophils 0.03 APTT 51.0 H VBG Lactate Sodium 141 Potassium 3.5 Chloride 98 Carbon Dioxide > 45.0 H Anion Gap -2.08713 L BUN 21 H Creatinine 0.9 Est GFR (CKD-EPI 2020) 71.83 Glucose 118 H Calcium 9.2 Total Bilirubin 0.5 AST 24 ALT 56 Alkaline Phosphatase 46 Total Protein 6.2 L Albumin 2.7 L 05/17/22 05:15 WBC RBC Hgb Hct MCV MCH MCHC RDW Plt Count MPV Immature Gran % Neutrophils % Lymphocytes % Monocytes % Eosinophils % Basophils % Nucleated RBC % Absolute Neutrophils Absolute Lymphocytes Absolute Monocytes Absolute Eosinophils Absolute Basophils APTT 46.0 H VBG Lactate Sodium Potassium Chloride Carbon Dioxide Anion Gap BUN Creatinine Est GFR (CKD-EPI 2020) Glucose Calcium Total Bilirubin AST ALT Alkaline Phosphatase Total Protein Albumin Review of Systems All systems reviewed & are unremarkable except as noted in HPI and below Time spent with patient Time spent in Critical Care: 40 Time spent in Critical care included: Coordination of care, Chart review, Documenting critically ill care, Time at immediate bedside and Discussing critically ill care with other medical staff Multi-Disciplinary Checklist Lines/Tubes CENTRAL LINE: no ARTERIAL LINE: no MUNOZ: yes, Munoz Day#: 7 ENDOTRACHEAL TUBE: no ICU Maintenance GLUCOSE 140-180mg/dL: yes NUTRITION AT GOAL: yes PRESSURE ULCER: no RESTRAINTS: no ANTIBIOTICS(if yes, consider Stewardship): Yes Social Issues FAMILY UPDATED: no, Reason/Intervention: discussed with patient PT/OT: yes GOALS/DISPOSITION/HANDKERCHIEF PRESSER: yes CODE STATUS: Full Prophylaxis DVT PROPHYLAXIS: yes GI PROPHYLAXIS: no
[2022-05-17 11:07] LABS: Lab Add On Test DONE
[2022-05-17 11:35] LABS: Procalcitonin < 0.1 ng/mL
--- NOTE | 2022-05-17 12:00 | W.SPSTP ---
Date of service: 05/17/22 Time of Service: 12:00 Subjective Contacted Елена in her ICU room this date. Her Park was present, as well as RT team initially providing instruction for acapella therapy. Елена is sitting up in bedside thair this date, able to hold things on her own today, looking stronger but still very tired and SOB at times. Interim updates: Tolerating HFNC (50 per RT) in low 90's throughout session. Per med team, she required intermittent BIPAP throughout the day today but has been stable on just HFNC this date. Nursing reports she has been taking whole pills and tolerating puree diet without s/sx aspiration, but with low intake in setting of fatigue. Objective/Assessment/Plan Objective Treatment Techniques & Outcomes: SHORT TERM GOALS: 1. Patient will tolerate baseline diet without s/sx aspiration. IN PROGRESS: PO Trials: Patient trialed upgraded solids with PREPARATION SUPERVISOR CANNING this date. Soft solids: cheddar cheese Regular solids: Aman cracker No s/sx aspiration. Patient does appear with increased WOB with more chewable textures, espc aman crackers. Open mouth posture breathing while with food in mouth during mastication. Tolerating HFNC (50 per RT) in low 90's throughout session. Intermittently with RR fluctuating into the low 30''s. 2. Patient/caregiver will be independent with swallow strategies and risk management strategies. IN PROGRESS: Independently with slow rate, small bites, breathing breaks during PO trials. Provided repeat education r/t rationale for increased frequency oral care this date. Patient and verbalize understanding. Patient/Caregiver/Staff Education: See objective above. Provided updated recommendations and rationale for below recommendations with RN/WAREHOUSE LEAD as well this date. Assessment WOB is still too high to initiate diet requiring much mastication, but she can be upgraded to level 5 minced/moist. If she continues to improve medically with decreased work of breathing and weaning off of HFNC, plan to trial soft and regular solids again later this week. 1:1 feeding assist is still recommended to maximize PO intake and minimize work of breathing. Plan Plan: PREPARATION SUPERVISOR CANNING to follow patient while on unit to monitor for diet tolerance, provide education, and trial upgraded textures. Recommendations Recommendations: IDDSI Level(s) SOLIDS 5-Minced & Moist Solids LIQUIDS 0-Thin Liquids ? ? PO intake risk management as outlined Medication Intake: Whole with 4-Extremely Thick Liquids RISK MANAGEMENT: HOB upright as tolerated; upright for all PO intake. Encourage physical mobility as tolerated. Oral hygiene q4h/every 4 hours, before/after PO intake, using friction with toothbrush on all oral structures as tolerated ? Level of Assistance/Supervision: 1:1 Assistive feeding only by trained staff/family PO intake only when awake/alert? Strategies/Adaptations/Assistive Equipment: Reduce auditory and/or visual distractions when eating, Provide verbal and/or visual cues to use recommended strategies, Small sips and bites when eating, Slow rate of intake, Small+frequent meals throughout day Posture/Positioning Needs: Maintain upright position at least 30 minutes after meals, Avoid meals/snacks 2-3 hours prior to reclining/sleeping, Sleep with head of bed elevated to reduce likelihood of nocturnal reflux, Other Total Time Spent: 25 min 17066 swallow treatment Coding
[2022-05-17 12:31] LABS: Vitamin B12 348 pg/mL (193-986)
[2022-05-17 12:34] LABS: Folate > 20.0 ng/mL (8.6-20.0)
[2022-05-17 12:46] LABS: HCO3 44 mmol/L (22-26); pCO2 59 mmHg (35-45); pH 7.48 (7.35-7.45); pO2 68 mmHg (80-105); sO2 94 % (95-98); tCO2 41 mmol/L (23-27)
[2022-05-17 12:47] LABS: BE > 15 mmol/L (-2-3); Site Right Radial
[2022-05-17 12:48] LABS: FIO2 35 %; FIO2L 50 L
--- NOTE | 2022-05-17 14:12 | CMPROGNOTE_ITS ---
- If Service Date Differs Date of service: 05/17/22 Time of Service: 14:12 Care Management Progress Note S/O: Елена was sitting up in a chair when CM met with her. She had just met with speech therapy, and RT was also waiting to meet with her. She was on high flow nasal cannula, and is still requiring support with Bipap, per report. She remains ICU level of care today, but may be ready for med/surge in the next 24 hours. RT continues to work on getting a trilogy machine approved through her in [facility]. CM will continue to follow. A: Deepthi is a 61 female admitted to [facility] on 05/10/22 P: Елена is being closely monitored at ICU level of care. She will likely be discharged home when medically cleared by MD, with a resumption of HH RN. She will follow up with her PCP and plan of care and transport with family. CM will assess and support identified discharge needs.
[2022-05-17] MEDS: Melatonin 3 MG TAB 6 MG PO (20:36)
[2022-05-18] VITALS (51 sets, daily range): BP systolic 113–148; BP diastolic 60–104; PULSE 65–117; RESP 14–34; TEMP 31–37.5; O2SAT 87–98
[2022-05-18] MEDS: Metoprolol 50 MG TAB PO ×2 (01:45→10:05)
[2022-05-18 06:51] LABS: Abs Immature Grans 0.13 10^3/uL (0.0-0.06); Absolute Basophil Count 0.03 10^3/uL (0.0-0.2); Absolute Eosinophil Count 0.11 10^3/uL (0.0-0.7); Absolute Monocyte Count 0.99 10^3/uL (0.1-0.8); Absolute Neutrophil Count 7.45 10^3/uL (1.2-6.7); Basophils % 0.3; Eosinophils % 1.2; HCT 33.4 % (36.0-46.0); HGB 9.8 g/dL (11.2-15.7); Immature Grans % 1.4; Lymphocytes % 7.4; MCH 25.2 pg (27.0-33.0); MCHC 29.3 % (32.0-36.0); MCV 86 fL (80-95); MPV 9.6 fL (8.0-11.0); Monocytes % 10.5; Neutrophils % 79.2; Platelet Count 301 10^3/uL (130-400); RBC 3.89 10^6/uL (3.93-5.22); RDW-SD 52.4 fL; WBC 9.41 10^3/uL (4.4-10.8)
[2022-05-18 07:11] LABS: ALT 41 U/L (14-59); AST 19 U/L (15-37); Albumin 2.6 g/dL (3.4-5.0); Alkaline Phosphatase 43 U/L (46-116); Anion Gap 4.2 mmol/L (3-11); BUN 23 mg/dL (7-18); Bilirubin, Total 0.6 mg/dL (0.2-1.0); CO2 38.8 mmol/L (21.0-32.0); CREATININE 0.8 mg/dL (0.55-1.02); Calcium 9.2 mg/dL (8.5-10.1); Chloride 98 mmol/L (98-107); Estimated GFR 82.74 (mL/min/1.73m2); Glucose 91 mg/dL (74-106); Potassium 3.4 mmol/L (3.5-5.1); Sodium 141 mmol/L (136-145)
[2022-05-18 07:20] LABS: C-Reactive Protein 1.18 mg/dL (0.0-0.3)
[2022-05-18] MEDS: Mometasone 220 MCG 14 DOSE INHALER 1 PUFF IH ×2 (07:44→20:30)
[2022-05-18] MEDS: Tiotropium/Olodaterol 10 PUFF INHALER 2 PUFF IH (07:44)
--- NOTE | 2022-05-18 08:05 | PDOC.CMPRO ---
- If Service Date Differs Date of service: 05/18/22 Time of Service: 08:05 Care Management Progress Note S/O: Елена remains inpatient and continues to work with speech therapy, and RT. She is still requiring support with Bipap, per report-RT continues to work on getting a trilogy machine approved through her insurance. She remains in the ICU at this time; CM did not meet with Deepthi today, and continues to follow. A: Deepthi is a 61 female admitted to [facility] on 05/10/22 P: Елена is being closely monitored at ICU level of care. She will likely be discharged home when medically cleared by MD, with a resumption of RN. She will follow up with her PCP and plan of care and transport with family. CM will continue to assess and support identified discharge needs.
[2022-05-18 08:26] LABS: Lab Add On Test DONE
[2022-05-18 08:45] LABS: Magnesium 1.6 mg/dL (1.8-2.4)
[2022-05-18] MEDS: Protein Nutritional Supplement 16 GM 1 OUNCE PACKET PO ×2 (10:04→19:42)
[2022-05-18] MEDS: Aspirin 81 MG CHEW PO (10:05)
[2022-05-18] MEDS: Multivitamin w/Minerals TAB 1 TAB PO (10:06)
[2022-05-18] MEDS: Norethindrone 5 MG TAB 10 MG PO ×2 (10:06→19:42)
[2022-05-18] MEDS: Amiodarone 200 MG TAB 400 MG PO ×2 (10:07→19:42)
[2022-05-18] MEDS: Pantoprazole 40 MG TABCR PO (10:07)
[2022-05-18] MEDS: Apixaban 5 MG TAB PO ×2 (10:08→19:43)
[2022-05-18] MEDS: Potassium Chloride Liquid 20 MEQ PKT PO ×3 (10:09→19:42)
[2022-05-18] MEDS: Normal Saline Flush 10 ML SYR IVP ×2 (10:09→23:20)
--- NOTE | 2022-05-18 10:25 | PT.INTREAT ---
Date of service: 05/18/22 Time of Service: 09:30 PT Notes Visit Reasons: Hypoxemic/Hypercarbic Respiratory Failure,Seizure Physical Therapy Inpatient Treatment Note Date: 05/18/2022 Precautions: Fall. Standard. Activity as tolerated. Subjective: Denies pain in B LE. Oxygen saturation stayed above 89% on HF setting even during mobility training despite patient reporting SOB. Objective: General Observation: Supine in bed.? On HF oxygen supp.? Telemetry monitoring in place.? Blanchard catheter in place. Mental Status: Alert and oriented as to person, place, time, and purpose. Able to pay attention, focus, and respond appropriately. Pain: Denies Vital Signs: Oxygen saturation lowest at 89% and highest of 93% on HF setting Bed Mobility/Transfers:? Sit to stand stand by assist Stand to sit stand by assist Bed to bedside chair in front of sinkl for morning care Bed to chair 1 stand by assist Chair 1 to chair 2 stand by assist Chair 2 to bed stand by assist Bed back to chair 2 stand by assist Gait: Instructed patient with level surface ambulation of 6 feet x 5 reps allowing adequate rests in between, stand by assist and minimal verbal cueing for hand placement given.? Migdalia increasing. Step height increasing. Step length incrreasing.? Moderate shortness of breath subsided with rest.? Balance: Static Sitting: Good Dynamic Sitting: Normal Static Standing: Fair Dynamic Standing: Poor Assessment: Significant improvement in activuty tolerance and mobility independence today. If allowed frequent rests in between small tasks, patient is able to do more. NO pain complaints in B LE. Did get short of breath each time with oxygen saturation low of 88% with quicker recovery back up to 90% still on HF oxygen supp. DISCHARGE RECOMMENDATIONS: [] ? Home with no services [] [] ? Home with services [specify] [] ? Home with outpatient PT [] [] ? SNF for continued rehabilitation [] [] ? Retirement Care [] [] ? SNF versus LTC based on ability to participate and progress [] [X] ? SNF vs HH PT depending on progress towards goals TREATMENT CODE/TIME: 31053 x 35 minutes beginning at 9:30 and 10:25 AM.
[2022-05-18 11:23] LABS: Vancomycin, Trough 14.5 ug/mL (10.0-20.0)
[2022-05-18] MEDS: VANCOMYCIN 750 MG in Normal Saline 250 ML 100 MG IVPB ×2 (12:48→23:19)
--- NOTE | 2022-05-18 13:53 | PGE_ITS ---
Date of Service Date of service: 05/18/22 Time of Service: 13:53 Assessment and Plan Assessment and plan (1) Acute and chronic respiratory failure: Status: Acute Assessment and plan: acute on chronic hypoxemic/hypercarbic respiratory failure d/t COPD and ISAURA; patient was intubated on admission (05/10) and extubated on 05/15. She still requires support w/ BIPAP and will continue to need this especially when sleeping. We will continue trials off BIPAP w/ use of HFNC during the day, particularly at meal times but will use BIPAP whenever she sleeps or when she fatigues. Dr. Marrero is working on getting her qualified for Trelegy device. Her labs are showing prerenal azotemia and urine is more concentrated and she had some low BP this morning; therefore I have put her diuretics on hold Critical care time spent interviewing and examining the patient, reviewing studies, discussing case with patient's nurse and consulting physicians was 30 minutes Qualifiers: Respiratory failure complication: hypoxia and hypercapnia Qualified Code(s): J96.21 - Acute and chronic respiratory failure with hypoxia; J96.22 - Acute and chronic respiratory failure with hypercapnia (2) Central line infection: Status: Suspected Assessment and plan: probably contaminant, blood cultures from 05/13 (peripheral draw) showed no growth, blood culture 05/13 from central line grew Staph epi from anaerobic culture; repeat blood cultures from 05/15 1 set had no growth, the other set had aerobic bottle positive for gram positive rods, Bacillus species, not anthracis. This likely is contaminant. Her MRSA was negative and sputum culture from 05/14 showed no growth Procalcitonin was <0.1 and she has no leukocytosis, therefore the blood cultures and cath tip are likel contaminant, however, with both her blood culture and cath tip growing gram positive zari and the blood culture from her central line grew Staph epi. I will continue Vancomycin and have stopped her cefepime. We will continue Vancomycin for 7 to 10 days. I will repeat her blood cultures. (3) Paroxysmal atrial fibrillation with rapid ventricular response: Status: Acute Assessment and plan: patient on amiodarone 0.5 mg/hr along w/ loading oral dose at 400 mg bid; she is on lopressor 25 mg qid. I will increase her lopressor, dc the iv amiodarone but continue loading of amiodarone at 400 mg bid for 12 to 14 days (total loading dose of 12 to 16 gm). (4) Ischemia of foot: Status: Acute Assessment and plan: Patient has bilateral PAD per her CTA of her legs. Most notably she has occluded R. SFA; I discussed her clinical presentation, lack of ischemic pain or ulcerations and intact sensation in her feet along w/ the CTA findings w/ vascular surgeon, Dr. Evangelista at [facility]. He feels that the occluded SFA on the right is probably chronic and she has collateral flow to the right foot and for that reason we are able to obtain pulses and the right foot is warm. He concurs w/ use of anticoagulation along w/ ASA and to check CHRISTY. If CHRISTY in her legs is <0.5 or if she gets ischemic pain or ischemic changes in her exam then he indicated that we are to call [facility] and he will arrange transfer for acute intervention, otherwise she should reduce her vascular risk factors, i.e. statin for HLD, stop smoking, continue ASA and DOAC and follow up w/ vascular clinic at [facility]. (5) COPD (chronic obstructive pulmonary disease): Status: Chronic Assessment and plan: As above, use of HFNC, BIPAP and bronchodilators Qualifiers: COPD type: COPD with acute exacerbation Qualified Code(s): J44.1 - Chronic obstructive pulmonary disease with (acute) exacerbation (6) Elevated troponin I level: Status: Acute Assessment and plan: type II demand ischemia; preserved LV and RV function per echo 05/10 (7) (HFpEF) heart failure with preserved ejection fraction: Status: Chronic Assessment and plan: diuretics on hold for now; monitor renal function/I&O which tapered off. (8) Anemia: Status: Chronic Assessment and plan: NC/NC; will check iron/TIBC/ferritin/B12 and folate levels. she is already on MVS, she may benefit from iron supplementation. As she is on prednisone for her COPD and anticoagulation (heparin to be changed to apixaban), and now ASA for PAD, she needs to have GI protection w/ a PPI (9) WENDY (acute kidney injury): Status: Resolved Assessment and plan: resolved. stable BUN and creatinine despite iv diuretics. cont. to monitor U.O. and daily BMP. (10) Seizure: Status: Suspected Assessment and plan: unclear as to whether or not she acutally had seizure; Keppra intiated based on presenting symptoms. check MRI of brain; if no tumor or CVA then will dc Keppra per neurology recommendation MRI was not done yesterday due to patient being on HFNC which could not be accomodated in the MRI. patient is refusing to take her Keppra. She has had no visible signs of seizuers since admission. (11) DVT prophylaxis: Status: Acute Assessment and plan: currently on heparin drip; will change to apixaban today (12) Discharge planning issues: Status: Acute Assessment and plan: Full code Keep in ICU for today but is she remains stable then possible transfer in 24 hours Subjective Subjective Interval history since last seen: Deepthi continues to improve. She has no chest discomfort. She has no nausea or vomiting or abdominal pain. She is tolerating her diet. Currently on minced and moist with thin liquids. She not short of breath at rest but still gets breathless with any activity. Exam Narrative Exam Narrative: Obese female alert and oriented person place time circumstance. Lungs are clear anteriorly posteriorly some faint basilar rales no rhonchi or wheezes Heart is regular, review of her telemetry reveals that she still has some intermittent runs of paroxysmal atrial fibrillation but rate seems to be reasonably controlled. Most the time she is in sinus rhythm. Abdomen is obese soft nontender normal bowel sounds Blanchard's drain clear yellow urine sanchez color Legs are without peripheral edema; she still has no palpable pulses on the left foot, but palpable on the right. the mottling in her left great toe and left 2nd MTP has resolved. the left foot is cooler than the right but sensation is intact. Objective Last Vital Signs Temp 37.5 C 05/18/22 08:45 Pulse 115 H 05/18/22 10:44 Resp 20 05/18/22 11:00 BP 125/79 05/18/22 10:44 Pulse Ox 94 05/18/22 11:00 Laboratory Results - last 24 hr 05/18/22 05/18/22 05/18/22 05:55 05:55 05:55 WBC 9.41 RBC 3.89 L Hgb 9.8 L Hct 33.4 L MCV 86 MCH 25.2 L MCHC 29.3 L RDW 17.0 H Plt Count 301 MPV 9.6 Immature Gran % 1.4 Neutrophils % 79.2 Lymphocytes % 7.4 Monocytes % 10.5 Eosinophils % 1.2 Basophils % 0.3 Nucleated RBC % 0.0 Absolute Neutrophils 7.45 H Absolute Lymphocytes 0.70 L Absolute Monocytes 0.99 H Absolute Eosinophils 0.11 Absolute Basophils 0.03 Sodium 141 Potassium 3.4 L Chloride 98 Carbon Dioxide 38.8 H Anion Gap 4.2 BUN 23 H Creatinine 0.8 Est GFR (CKD-EPI 2020) 82.74 Glucose 91 Calcium 9.2 Magnesium Total Bilirubin 0.6 AST 19 ALT 41 Alkaline Phosphatase 43 L C-Reactive Protein 1.18 H Total Protein 6.0 L Albumin 2.6 L Vancomycin Trough Add-On Test Request DONE 05/18/22 05/18/22 05:55 11:00 WBC RBC Hgb Hct MCV MCH MCHC RDW Plt Count MPV Immature Gran % Neutrophils % Lymphocytes % Monocytes % Eosinophils % Basophils % Nucleated RBC % Absolute Neutrophils Absolute Lymphocytes Absolute Monocytes Absolute Eosinophils Absolute Basophils Sodium Potassium Chloride Carbon Dioxide Anion Gap BUN Creatinine Est GFR (CKD-EPI 2020) Glucose Calcium Magnesium 1.6 L Total Bilirubin AST ALT Alkaline Phosphatase C-Reactive Protein Total Protein Albumin Vancomycin Trough 14.5 Add-On Test Request
--- NOTE | 2022-05-18 13:59 | W.NUTRFU ---
Date of service: 05/18/22 Time of Service: 13:59 Nutrition Note NOTE: Met with Deepthi today. She reports no issues with eating despite being intubated for several days. Encouraged her to complete her meals and stay hydrated. Will offer ensure for extra nutrients. Doing well from nutritional standpoint. Will continue to follow. Time Spent in Nutritional Counseling and Treatment: 10
[2022-05-18] MEDS: Metoprolol 25 MG TAB PO (14:09)
--- NOTE | 2022-05-18 14:53 | PT.INTREAT ---
Date of service: 05/18/22 Time of Service: 14:10 PT Notes Visit Reasons: Hypoxemic/Hypercarbic Respiratory Failure,Seizure Inpatient Physical Therapy Treatment Note [facility] Date: 05/18/2022 PRECAUTIONS: Activity as tolerated SUBJECTIVE: Елена is pleasant and agreeable to participating in PT. She reports that she is feeling better, but tired. She has been in the chair for the majority of the day and is looking forward to getting back into bed. OBJECTIVE: PAIN: No c/o pain BED MOBILITY/TRANSFERS Sit-supine: S with HOB flat Sit-stand: S Stand-sit: S GAIT Assistive Device: No AD Weight bearing: Full Assist: S Distance: [id number] transfer x5 Deviation: Seated rests between each transfer, SOB, increased fatigue ASSESSMENT: Patient tolerated session well, however, with complaint of increased fatigue and SOB with activity. She demonstrates limited activity tolerance, and gait distance is limited due to attachment to HiFlo O2 unit. PLAN: Continue with global strengthening and gait training for improved activity tolerance. TREATMENT CODE/TIME: 26 minutes; 88453 x2 (14:10)
[2022-05-18] MEDS: Metoprolol 25 MG TAB 75 MG PO ×2 (16:30→19:43)
[2022-05-18] MEDS: levETIRAcetam 500 MG TAB 1000 MG PO (19:43)
[2022-05-18] MEDS: Melatonin 3 MG TAB 6 MG PO (19:43)
[2022-05-19] VITALS (45 sets, daily range): BP systolic 113–140; BP diastolic 56–94; PULSE 63–88; RESP 14–33; TEMP 29–37.1; O2SAT 89–99
[2022-05-19] MEDS: Normal Saline Flush 10 ML SYR IVP ×4 (01:51→15:41)
--- NOTE | 2022-05-19 01:52 | NUR.NOTE ---
Nursing Note: Right arm Saline lock patent following Vancomycin infusion.
[2022-05-19] MEDS: Metoprolol 25 MG TAB 75 MG PO ×2 (03:06→10:54)
[2022-05-19] MEDS: Acetaminophen 325 MG TAB 650 MG PO (03:07)
[2022-05-19 07:11] LABS: Abs Immature Grans 0.17 10^3/uL (0.0-0.06); Absolute Basophil Count 0.04 10^3/uL (0.0-0.2); Absolute Eosinophil Count 0.33 10^3/uL (0.0-0.7); Absolute Lymphocyte Count 0.66 10^3/uL (1.2-3.4); Absolute Monocyte Count 0.88 10^3/uL (0.1-0.8); Absolute Neutrophil Count 7.04 10^3/uL (1.2-6.7); Basophils % 0.4; Eosinophils % 3.6; HCT 34.7 % (36.0-46.0); HGB 9.8 g/dL (11.2-15.7); Immature Grans % 1.9; Lymphocytes % 7.2; MCH 24.7 pg (27.0-33.0); MCHC 28.2 % (32.0-36.0); MCV 88 fL (80-95); MPV 9.7 fL (8.0-11.0); Monocytes % 9.6; Neutrophils % 77.3; Platelet Count 280 10^3/uL (130-400); RBC 3.96 10^6/uL (3.93-5.22); RDW-SD 54.1 fL; WBC 9.12 10^3/uL (4.4-10.8)
[2022-05-19 07:43] LABS: ALT 39 U/L (14-59); AST 22 U/L (15-37); Albumin 2.7 g/dL (3.4-5.0); Alkaline Phosphatase 42 U/L (46-116); BUN 21 mg/dL (7-18); Bilirubin, Total 0.5 mg/dL (0.2-1.0); CREATININE 0.9 mg/dL (0.55-1.02); Chloride 100 mmol/L (98-107); Estimated GFR 71.83 (mL/min/1.73m2); Glucose 100 mg/dL (74-106); Potassium 3.8 mmol/L (3.5-5.1); Sodium 141 mmol/L (136-145); Total Protein 5.9 g/dL (6.4-8.2)
[2022-05-19] MEDS: Tiotropium/Olodaterol 10 PUFF INHALER 2 PUFF IH (07:49)
[2022-05-19] MEDS: Apixaban 5 MG TAB PO ×2 (08:47→21:02)
[2022-05-19] MEDS: Amiodarone 200 MG TAB 400 MG PO ×2 (08:47→21:02)
[2022-05-19] MEDS: Magnesium Oxide 400 MG TAB 800 MG PO ×2 (08:48→21:02)
[2022-05-19] MEDS: levETIRAcetam 500 MG TAB 1000 MG PO ×2 (08:48→21:02)
[2022-05-19] MEDS: Aspirin 81 MG CHEW PO (08:48)
[2022-05-19] MEDS: Multivitamin w/Minerals TAB 1 TAB PO (08:49)
[2022-05-19] MEDS: Pantoprazole 40 MG TABCR PO (08:50)
[2022-05-19] MEDS: Norethindrone 5 MG TAB 10 MG PO ×2 (08:50→21:02)
[2022-05-19] MEDS: Protein Nutritional Supplement 16 GM 1 OUNCE PACKET PO ×2 (08:50→21:02)
[2022-05-19] MEDS: Potassium Chloride Liquid 20 MEQ PKT PO (08:50)
[2022-05-19] MEDS: Mometasone 220 MCG 14 DOSE INHALER 1 PUFF IH ×2 (09:03→21:05)
--- NOTE | 2022-05-19 09:13 | PGE_ITS ---
Date of Service Date of service: 05/19/22 Time of Service: 09:14 Assessment and Plan Assessment and plan (1) Acute and chronic respiratory failure: Status: Acute Assessment and plan: improving. Now on regular NC @ 2.5 LPM and her SPO2 is 92%. She will continue her LAMA/LABA (Stiolot Respimat) and her ICS (Asmanex) along w/ prn bronchodilator updrafts; cont. use of I.S. Encourage inreased activity. Will transfer out of ICU today (or at least decrease her to med/surg status). continue P.T. to improve her strength. Patient now approved for her Trilogy device but will need to be brought in prior to her discharge. Professional time spent interviewing and examining patient, discussion of goals of care with hospital team (care management, nursing and consulting professiona desiree) was 45 minutes. Qualifiers: Respiratory failure complication: hypoxia and hypercapnia Qualified Code(s): J96.21 - Acute and chronic respiratory failure with hypoxia; J96.22 - Acute and chronic respiratory failure with hypercapnia (2) COPD (chronic obstructive pulmonary disease): Status: Chronic Assessment and plan: as above for respiratory failure Qualifiers: COPD type: COPD with acute exacerbation Qualified Code(s): J44.1 - Chronic obstructive pulmonary disease with (acute) exacerbation (3) Central line infection: Status: Suspected Assessment and plan: CVC tip grew GP zari and one blood culture grew Bacillus species. Patient is on Vancomycin d#6/10 days. (Through 05/24). Will repeat her blood culture prior to discontinuation of her vancomycin (4) Paroxysmal atrial fibrillation with rapid ventricular response: Status: Acute Assessment and plan: remains in NSR, rhythm control w/ amiodarone and rate controlled w/ metoprolol. patient anticoagulated w/ apixaban. She is still on the loading doses of her amiodarone through 05/26 afterwards she should go down to 200 mg daily. Her lopressor is at 75 mg qid, I will switch her to long acting Toprol XL to try to consolidate her meds. (5) Peripheral arterial occlusive disease: Status: Chronic Assessment and plan: aortogram w/ bilateral lower extremity runoff was done on 05/16 and demonstrated bilateral disease w/ R. SFA occlusion w/ reconstitution via profuna collaterals but also has R. posterior tibial occlusion; left side w/ multilevel disease but has good 3 vessel runoff at the calf. Due to her having ischemic left great toe a couple of days, I have put her on aspirin therapy along w/ her apixaban. She is on a PPI for GI protection from bleeding. (6) Elevated troponin I level: Status: Acute Assessment and plan: type II demand ischemia; preserved LV and RV function per echo 05/10 (7) (HFpEF) heart failure with preserved ejection fraction: Status: Chronic Assessment and plan: lasix resumed per pulmonary service who feels that she will need lifelong diuretics (8) Anemia: Status: Chronic Assessment and plan: B12 and folate levels are normal. Will check her serum iron and ferritin and TIBC. May be anemia of chronic disease, however, iron levels were not done. continue to monitor particulary while on anticoagulants. However can reduce her labs to couple time per week rather than daily. I will change her labs to every Sunday and Sunday. (9) Seizure: Status: Suspected Assessment and plan: will check her brain MRI today not that she is no longer on HFNC nor requiring BIPAP during the day. If MRI is negative for CVA'S then we can probably dc her Keppra as any seizure was probably d/t her hypoxemia event. (10) DVT prophylaxis: Status: Acute Assessment and plan: now on apixaban (11) Discharge planning issues: Status: Acute Assessment and plan: Full code transfer to med/surg Subjective Subjective Interval history since last seen: Елена offers no acute complaints. Eating well. Having good BM. She is now on regular NC rather than HFNC but still needs BIPAP at night. Per Dr. Marrero, patient was approved for her Trilogy adaptive NIPPV. Dr. Marrero indicated that when patient is nearing dc to home, Christina from the [facility] [employer] needs to be called to bring in the device so patient can use it in the hospital and she and her family can be educated on its use. Patient is medically stable and can be transferred to the floor. Exam Narrative Exam Narrative: Елена is sitting up in her bed, talking on her phone w/ family. She is alert and oriented. Елена is able to talk in complete sentences w/out getting dyspneic Lungs: clear anteriorly and posteriorly she is clear in mid and upper camejo;some diminished at bases; no rhonchi or wheezing Heart: regular w/out murmur; (review of her telemetry she is in NSR) Abdomen: soft, nontender; normal bowel sounds Legs/feet: no edema; she has some excoriation over her right denton from where she scratched her skin; this has mepilex on it; feet: R has palpable pedal pulses; L has PT pulse but no DP pulse however, no cyanosis and both feet are warm Objective Last Vital Signs Temp 36.6 C 05/19/22 08:43 Pulse 77 05/19/22 08:43 Resp 26 H 05/19/22 08:43 BP 137/89 05/19/22 08:43 Pulse Ox 90 L 05/19/22 08:43 Laboratory Results - last 24 hr 05/18/22 05/19/22 05/19/22 11:00 05:20 05:20 WBC 9.12 RBC 3.96 Hgb 9.8 L Hct 34.7 L MCV 88 MCH 24.7 L MCHC 28.2 L RDW 17.0 H Plt Count 280 MPV 9.7 Immature Gran % 1.9 Neutrophils % 77.3 Lymphocytes % 7.2 Monocytes % 9.6 Eosinophils % 3.6 Basophils % 0.4 Nucleated RBC % 0.0 Absolute Neutrophils 7.04 H Absolute Lymphocytes 0.66 L Absolute Monocytes 0.88 H Absolute Eosinophils 0.33 Absolute Basophils 0.04 Sodium 141 Potassium 3.8 Chloride 100 Carbon Dioxide 39.0 H Anion Gap 2.0 L BUN 21 H Creatinine 0.9 Est GFR (CKD-EPI 2020) 71.83 Glucose 100 Calcium 9.0 Total Bilirubin 0.5 AST 22 ALT 39 Alkaline Phosphatase 42 L Total Protein 5.9 L Albumin 2.7 L Vancomycin Trough 14.5
--- NOTE | 2022-05-19 09:54 | NUR.NOTE ---
Patient exercises with PT, standing and marching and standing on tippy toes. Patient tolerates same well while maintaining a sat of 90%.Nursing Note:
--- NOTE | 2022-05-19 10:19 | PDOC.CMPRO ---
- If Service Date Differs Date of service: 05/19/22 Time of Service: 10:19 Care Management Progress Note S/O: Елена was lying in bed when CM met with her. She stated that she is feeling better, and is only requiring BiPAP at night. Per RN report, she is currently on hi flow O2 nasal canula, 50L/min, 35 FiO2. She stated that she hopes to move to med/surge later today, or possibly over the weekend if there is no bed available for her today. Pulmonary/RT have been working on getting her Trilogy approved, which reportedly has been approved, pending discharge education from [facility]. CM will continue to follow. A: Deepthi is a 61 female admitted to [facility] on 05/10/22 P: Елена is being closely monitored at ICU level of care. She will likely be discharged home when medically cleared by MD, with a resumption of RN. She will follow up with her PCP and plan of care and transport with family. CM will continue to assess and support identified discharge needs.
--- NOTE | 2022-05-19 10:38 | W.PULMCC ---
General Date of Service Date of service: 05/19/22 Time of Service: 08:00 Reason for Admission to ICU: Acute on chronic hypoxic and hypercapnic respiratory failure. Assessment and Plan Assessment and plan (1) Seizure: Status: Suspected (2) WENDY (acute kidney injury): Status: Resolved (3) Elevated troponin I level: Status: Acute (4) Altered mental status: Status: Acute (5) Respiratory failure with hypoxia and hypercapnia: Status: Acute (6) PAF (paroxysmal atrial fibrillation): Status: Acute (7) Acute on chronic respiratory acidosis: Status: Acute (8) COPD exacerbation: Status: Acute (9) CHF exacerbation: Status: Acute (10) Hyperkalemia: Status: Acute (11) Leukocytosis: Status: Acute Assessment and plan: This is a co-morbid 61 yo admitted to the ICU for acute on chronic hypoxic and hypercapnic respiratory failure. She diuresed well in the last 24 hours. She is back in A. fib today, but relatively rate controlled. I think the amiodarone drip be stopped and her A. fib now managed with PO meds, especially given her good BP now. Her diuresis was held yesterday for borderline blood pressures, but I think these should be restarted as her volume status was positive yesterday and her UOP tapered off overnight. She should be on a daily diuretic regimen to prevent volume overload. I was able to have her Trilogy approved - once she is approaching discharge, [facility] should be notified so they can plan for education and a night of Trilogy in the hospital before she goes to a rehab or home. Recommendations Pulmonary: Acute on chronic hypoxic and hypercapnic respiratory failure - extubated - BiPAP 14/8 and a back up rate of 12 bpm while napping and at night - NC during the day for sats 88-92% - negative fluid balance (see below) - Trilogy approved for discharge - let [facility] know when approaching discharge - I will follow up as an outpatient - out of bed to chair and PT consultation COPD - will treat for exacerbation, although not currently clinically behaving as such - nebs to prn - started back on home regimen of Stiolto and Flovent - s/p prednisone and azithromycin Cardiac: Atrial Fibrillation - on PO amiodarone and meoprolol CHF Exacerbation - recommend negative fluid balance as below - restart diuresis today - spironolactone and torsemide ordered Elevated troponin - demand related - no need to continue trending as it has plataeued Renal: WENDY - possibly congestion, now improved - continue to monitor UOP and Cr - daily lytes, Mg Hyperkalemia - improved I&O: Intake & Output 05/16/22 05/17/22 05/18/22 05/19/22 23:59 23:59 23:59 23:59 Intake Total 1939.633 / 1939.633 841.6 / 1081.6 1940 / 1940 420 / 420 Output Total 4750 / 4750 2675 / 2675 755 / 755 375 / 375 Balance -2810.367 / -2810.367 -1833.4 / -1593.4 1185 / 1185 45 / 45 Weight 83.3 kg 83.3 kg 81.7 kg 85.4 kg Daily Fluid Goal:: Negative 1 L in next 24 hours GI Nutrition: Nutrition - conitnue diet Date of Last Bowel Movement: 05/19/22 Infectious Disease: Bacillus bacteremia - MRSA nares negative - central line removed - tip culture and grew gram positive zari - continue vancomycin for 1 week total - ordered a repeat blood culture to ensure clearance Hematologic: No acute concerns - anemia likely ICU drift from recurrent draws and anemia of critical illness Neurologic: Seizure? - on Keppra - MRI recommended by neuro - neurology consulted, will defer recs to them Endocrine: No acute concerns Lines: Midline Munoz - can consider Munoz removal Prophylaxis: Eliquis On Protonix again but no indication for this, was not a home med, recommend it be DC'ed Code Status: Resuscitation Status Full Code Subjective Critical and life-threatening events over the past 24 hours: Her diuretics were held yesterday due to a concern for borderline blood pressures. She was positive yesterday and cumulatively during her stay she is even. She is doing well on BiPAP at night and was still using HFNC throughout the day, although her FiO2 needs have improved. She should be put on regular NC when note using BiPAP. She is feeling well today overall. Exam Narrative Exam Narrative: POCUS 05/10/22: All views visualized, parasternal view suboptimal. Likely borderline low EF, RV normal size and function. IVC 2.5cm with no collapse (while on 8 of PEEP). No pericardial effusion. No pleural effusions bilaterally. + significant B-lines posteriorly, non significant B-lines anteriorly. Gen: NAD, sedated and mechanicall ventilated HENT: PERRL, nasal turbinates normal without erythema or inflammation, moist oral mucosa, Mallampati 2, No LAD or JVD Chest: No respiratory distress, normal appearance of chest, clear to auscultation bilaterally, no anterior crackles, normal inspiratory effort Heart: regular rate and rhythym, no murmurs, rubs or gallops Abdomen: Non-distended, soft, non tender Extremities: No clubbing, no edema, cyanosis, rashes - warm B/L feet. Absent palpable pulses on left foot, positive palpable pulses on right foot. Neuro: non focal Psych: cooperative Most Recent VS/Results Last Vital Signs Temp 36.5 C 05/19/22 09:27 Pulse 75 05/19/22 09:27 Resp 27 H 05/19/22 09:27 BP 125/66 05/19/22 09:27 Pulse Ox 93 05/19/22 09:27 Laboratory Results - last 24 hr 05/18/22 05/19/22 05/19/22 11:00 05:20 05:20 WBC 9.12 RBC 3.96 Hgb 9.8 L Hct 34.7 L MCV 88 MCH 24.7 L MCHC 28.2 L RDW 17.0 H Plt Count 280 MPV 9.7 Immature Gran % 1.9 Neutrophils % 77.3 Lymphocytes % 7.2 Monocytes % 9.6 Eosinophils % 3.6 Basophils % 0.4 Nucleated RBC % 0.0 Absolute Neutrophils 7.04 H Absolute Lymphocytes 0.66 L Absolute Monocytes 0.88 H Absolute Eosinophils 0.33 Absolute Basophils 0.04 Sodium 141 Potassium 3.8 Chloride 100 Carbon Dioxide 39.0 H Anion Gap 2.0 L BUN 21 H Creatinine 0.9 Est GFR (CKD-EPI 2020) 71.83 Glucose 100 Calcium 9.0 Total Bilirubin 0.5 AST 22 ALT 39 Alkaline Phosphatase 42 L Total Protein 5.9 L Albumin 2.7 L Vancomycin Trough 14.5 Add-On Test Request 05/19/22 05:20 WBC RBC Hgb Hct MCV MCH MCHC RDW Plt Count MPV Immature Gran % Neutrophils % Lymphocytes % Monocytes % Eosinophils % Basophils % Nucleated RBC % Absolute Neutrophils Absolute Lymphocytes Absolute Monocytes Absolute Eosinophils Absolute Basophils Sodium Potassium Chloride Carbon Dioxide Anion Gap BUN Creatinine Est GFR (CKD-EPI 2020) Glucose Calcium Total Bilirubin AST ALT Alkaline Phosphatase Total Protein Albumin Vancomycin Trough Add-On Test Request TNP Review of Systems All systems reviewed & are unremarkable except as noted in HPI and below Time spent with patient Time spent in Critical Care: 40 Time spent in Critical care included: Chart review, Documenting critically ill care, Time at immediate bedside and Discussing critically ill care with other medical staff Multi-Disciplinary Checklist Lines/Tubes CENTRAL LINE: no ARTERIAL LINE: no MUNOZ: yes, Munoz #: 9 ENDOTRACHEAL TUBE: no ICU Maintenance GLUCOSE 140-180mg/dL: yes NUTRITION AT GOAL: yes PRESSURE ULCER: no RESTRAINTS: no ANTIBIOTICS(if yes, consider Stewardship): Yes Social Issues FAMILY UPDATED: no, Reason/Intervention: discussed with patient PT/OT: yes GOALS/DISPOSITION/PC NETWORK 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
[2022-05-19] MEDS: Torsemide 20 MG TAB PO (10:54)
[2022-05-19 11:04] LABS: Ferritin 31 ng/mL (8-252)
[2022-05-19 11:15] LABS: Iron 35 ug/dL (50-170)
--- NOTE | 2022-05-19 11:32 | NUR.NOTE ---
Left upper arm midline is dc'd per MD order to have simply one IV access. Nursing Note:
[2022-05-19] MEDS: VANCOMYCIN 750 MG in Normal Saline 250 ML 100 MG IVPB (12:40)
[2022-05-19 13:57] LABS: Total Iron Binding Capacity 580 ug/dL (250-450)
--- NOTE | 2022-05-19 15:07 | NUR.NOTE ---
Patient awaiting transfer to Med/Surg unit.Nursing Note:
[2022-05-19] MEDS: Metoprolol CR 100 MG TABCR 200 MG PO (21:02)
[2022-05-19] MEDS: Melatonin 3 MG TAB 6 MG PO (21:03)
[2022-05-20] VITALS (16 sets, daily range): BP systolic 117–148; BP diastolic 79–102; PULSE 66–85; RESP 1–30; TEMP 36.5–36.9; O2SAT 89–96
[2022-05-20] MEDS: VANCOMYCIN 750 MG in Normal Saline 250 ML 167 MG IVPB ×2 (00:37→12:08)
[2022-05-20] MEDS: Normal Saline Flush 10 ML SYR IVP ×4 (00:38→19:06)
[2022-05-20] MEDS: LORazepam 0.5 MG TAB PO ×2 (01:08→20:58)
--- NOTE | 2022-05-20 02:48 | NUR.NOTE ---
Nursing Note: Patient transferred from ICU around 02:10 on 05/20/22.
[2022-05-20 07:42] LABS: Anion Gap 1.5 mmol/L (3-11); BUN 19 mg/dL (7-18); CO2 41.5 mmol/L (21.0-32.0); CREATININE 0.9 mg/dL (0.55-1.02); Calcium 9.1 mg/dL (8.5-10.1); Chloride 99 mmol/L (98-107); Estimated GFR 71.83 (mL/min/1.73m2); Glucose 102 mg/dL (74-106); Sodium 142 mmol/L (136-145)
[2022-05-20] MEDS: Mometasone 220 MCG 14 DOSE INHALER 1 PUFF IH ×2 (08:28→19:45)
[2022-05-20] MEDS: Tiotropium/Olodaterol 10 PUFF INHALER 2 PUFF IH (08:29)
[2022-05-20] MEDS: Potassium Chloride 10 MEQ CAPCR 20 MEQ PO (08:56)
[2022-05-20] MEDS: Protein Nutritional Supplement 16 GM 1 OUNCE PACKET PO ×2 (08:57→19:07)
[2022-05-20] MEDS: Apixaban 5 MG TAB PO ×2 (08:57→19:07)
[2022-05-20] MEDS: Norethindrone 5 MG TAB 10 MG PO ×2 (08:57→19:06)
[2022-05-20] MEDS: Torsemide 20 MG TAB PO (08:57)
[2022-05-20] MEDS: Pantoprazole 40 MG TABCR PO (08:57)
[2022-05-20] MEDS: levETIRAcetam 500 MG TAB 1000 MG PO ×2 (08:58→19:07)
[2022-05-20] MEDS: Multivitamin w/Minerals TAB 1 TAB PO (08:58)
[2022-05-20] MEDS: Spironolactone 25 MG TAB PO (08:58)
[2022-05-20] MEDS: Aspirin 81 MG CHEW PO (08:58)
[2022-05-20] MEDS: Amiodarone 200 MG TAB 400 MG PO ×2 (08:58→19:07)
[2022-05-20] MEDS: Magnesium Oxide 400 MG TAB 800 MG PO ×2 (08:58→19:07)
[2022-05-20] MEDS: FLUoxetine 10 MG TAB PO (09:07)
--- NOTE | 2022-05-20 11:28 | PT.INTREAT ---
PT Notes Visit Reasons: Hypoxemic/Hypercarbic Respiratory Failure,Seizure Inpatient Physical Therapy Treatment Note [facility] Date: 05/20/22 OBJECTIVE: Sit-stand: CGA Stand-sit: CGA GAIT Assistive Device: 4WW Weight bearing: Full Assist: CGA Distance: Marching in place for 30 sec THEREX: Shoulder flexion x 10, horz abd x 10, circles x 10, LAQ x 10, hip abd x 10. ASSESSMENT: Pt had take short rest periods due to SOB and fatigue. PLAN: Cont as per PT POC. TREATMENT CODE/TIME: 11:10-11:28 (18) TP
--- NOTE | 2022-05-20 18:00 | W.PM.PROGNOT ---
Date of Service Date of service: 05/20/22 Time of Service: 18:00 Assessment and Plan Assessment and plan (1) Acute and chronic respiratory failure: Status: Acute Assessment and plan: improving. Now on regular NC @ 2.5 LPM and her SPO2 is 92%. She will continue her LAMA/LABA (Stiolot Respimat) and her ICS (Asmanex) along w/ prn bronchodilator updrafts; cont. use of I.S. Encourage inreased activity. Patient is now on the medical/surgical floor. Continue P.T. to improve her strength. Patient now approved for her Trilogy device but will need to be brought in prior to her discharge. Professional time spent interviewing and examining patient, discussion of goals of care with hospital team (care management, nursing and consulting professionals) was 20 minutes. Qualifiers: Respiratory failure complication: hypoxia and hypercapnia Qualified Code(s): J96.21 - Acute and chronic respiratory failure with hypoxia; J96.22 - Acute and chronic respiratory failure with hypercapnia (2) COPD (chronic obstructive pulmonary disease): Status: Chronic Assessment and plan: as above for respiratory failure Qualifiers: COPD type: COPD with acute exacerbation Qualified Code(s): J44.1 - Chronic obstructive pulmonary disease with (acute) exacerbation (3) Central line infection: Status: Suspected Assessment and plan: CVC tip grew GP zari and one blood culture grew Bacillus species. Patient is on Vancomycin d#7/10 days. (Through 05/25). Will repeat her blood culture prior to discontinuation of her vancomycin (4) Paroxysmal atrial fibrillation with rapid ventricular response: Status: Acute Assessment and plan: remains in NSR, rhythm control w/ amiodarone and rate controlled w/ metoprolol. patient anticoagulated w/ apixaban. She is still on the loading doses of her amiodarone through 05/26 afterwards she should go down to 200 mg daily. Her lopressor is at 75 mg qid, I will switch her to long acting Toprol XL to try to consolidate her meds. (5) Peripheral arterial occlusive disease: Status: Chronic Assessment and plan: aortogram w/ bilateral lower extremity runoff was done on 05/16 and demonstrated bilateral disease w/ R. SFA occlusion w/ reconstitution via profuna collaterals but also has R. posterior tibial occlusion; left side w/ multilevel disease but has good 3 vessel runoff at the calf. Due to her having ischemic left great toe a couple of days, I have put her on aspirin therapy along w/ her apixaban. She is on a PPI for GI protection from bleeding. (6) Elevated troponin I level: Status: Acute Assessment and plan: type II demand ischemia; preserved LV and RV function per echo 05/10 (7) (HFpEF) heart failure with preserved ejection fraction: Status: Chronic Assessment and plan: lasix resumed per pulmonary service who feels that she will need lifelong diuretics. I have put her on spironolactone to reduce her need for potassium and to help w/ diuretic control. As she is showing some pedal edema and needs to remain euvolemic, I have incresaed her torsemide to 40 mg daily. Will continue to monitor her BMP (8) Anemia: Status: Chronic Assessment and plan: she has iron deficiency anemia. Serum iron is 35 w/ high TIBC 580, lower normal level of ferritin 31. I will put her on ferrous sulfate 325 mg bid along w/ vitamin C for absorption given her need for a PPI. (9) Seizure: Status: Suspected Assessment and plan: brain MRI ordered but not done. Hopefully will get on Sunday. If no evidence for CVA then can dc elena (10) DVT prophylaxis: Status: Acute Assessment and plan: now on apixaban (11) Discharge planning issues: Status: Acute Assessment and plan: Full code however she has indicated that she does not want to be reintubated. Palliative care met w/ the patient last week and completed a COLST form indicating that she wanted a short trial of reintubation in the event of acute respiratory failure. I do not believe this is actually her current wishes. I think that this should be re-visited w/ the patient and her family involvement and that hospital medicine should be involved in this discussion. She is now on med/surg and progressing. If she continues to improve then she could potentially be discharged mid week. disposition will depend on P.T. recommendations for inpatient skilled vs home health Subjective Subjective Interval history since last seen: And has no acute complaints denies any chest discomfort or dyspnea. No cough or sputum production. Exam Narrative Exam Narrative: Елена is sitting up in her bed, watching TV. She is alert and oriented. Елена is able to talk in complete sentences w/out getting dyspneic Lungs: clear anteriorly and posteriorly she is clear in mid and upper camejo;some diminished at bases; no rhonchi or wheezing Heart: regular w/out murmur; (review of her telemetry she is in NSR) Abdomen: soft, nontender; normal bowel sounds Legs/feet: Trace of pedal and pretibial edema. Left foot is cool but not cyanotic, right foot is warm and dry Objective Last Vital Signs Temp 36.9 C 05/20/22 14:50 Pulse 72 05/20/22 14:50 Resp 18 05/20/22 14:50 BP 133/82 05/20/22 14:50 Pulse Ox 92 05/20/22 14:50 Laboratory Results - last 24 hr 05/20/22 06:15 Sodium 142 Potassium 4.0 Chloride 99 Carbon Dioxide 41.5 H Anion Gap 1.5 L BUN 19 H Creatinine 0.9 Est GFR (CKD-EPI 2020) 71.83 Glucose 102 Calcium 9.1
[2022-05-20] MEDS: Ipratropium 0.5 MG/2.5 ML UPD VIAL UPD (20:42)
[2022-05-20] MEDS: Melatonin 3 MG TAB 6 MG PO (20:47)
[2022-05-20] MEDS: Metoprolol CR 100 MG TABCR 200 MG PO (20:47)
[2022-05-20] MEDS: Levalbuterol 1.25 MG/3 ML UPD VIAL UPD (20:58)
[2022-05-21] VITALS (15 sets, daily range): BP systolic 135–162; BP diastolic 77–94; PULSE 67–76; RESP 4–29; TEMP 36.3–37; O2SAT 92–96
[2022-05-21] MEDS: VANCOMYCIN 750 MG in Normal Saline 250 ML 166.667 MG IVPB (00:32)
[2022-05-21 07:12] LABS: Anion Gap 0.5 mmol/L (3-11); BUN 18 mg/dL (7-18); CO2 41.5 mmol/L (21.0-32.0); CREATININE 0.7 mg/dL (0.55-1.02); Chloride 99 mmol/L (98-107); Estimated GFR 97.12 (mL/min/1.73m2); Glucose 100 mg/dL (74-106); Potassium 4.4 mmol/L (3.5-5.1); Sodium 141 mmol/L (136-145)
[2022-05-21] MEDS: Tiotropium/Olodaterol 10 PUFF INHALER 2 PUFF IH (07:48)
[2022-05-21] MEDS: Mometasone 220 MCG 14 DOSE INHALER 1 PUFF IH ×2 (07:49→19:49)
[2022-05-21] MEDS: Protein Nutritional Supplement 16 GM 1 OUNCE PACKET PO ×2 (08:42→19:49)
[2022-05-21] MEDS: Multivitamin w/Minerals TAB 1 TAB PO (08:43)
[2022-05-21] MEDS: Spironolactone 25 MG TAB PO (08:43)
[2022-05-21] MEDS: Magnesium Oxide 400 MG TAB 800 MG PO ×2 (08:43→19:48)
[2022-05-21] MEDS: Aspirin 81 MG CHEW PO (08:43)
[2022-05-21] MEDS: Norethindrone 5 MG TAB 10 MG PO ×2 (08:43→19:48)
[2022-05-21] MEDS: levETIRAcetam 500 MG TAB 1000 MG PO ×2 (08:43→19:47)
[2022-05-21] MEDS: Torsemide 20 MG TAB 40 MG PO (08:43)
[2022-05-21] MEDS: FLUoxetine 10 MG TAB PO (08:44)
[2022-05-21] MEDS: Amiodarone 200 MG TAB 400 MG PO ×2 (08:44→19:47)
[2022-05-21] MEDS: Pantoprazole 40 MG TABCR PO (08:44)
[2022-05-21] MEDS: Apixaban 5 MG TAB PO ×2 (08:44→19:46)
[2022-05-21] MEDS: Ferrous Sulfate 325 MG TAB PO ×2 (08:44→19:48)
[2022-05-21] MEDS: Ascorbic Acid 500 MG TAB PO ×2 (08:44→19:47)
--- NOTE | 2022-05-21 10:05 | PT.INTREAT ---
PT Notes Visit Reasons: Hypoxemic/Hypercarbic Respiratory Failure,Seizure Inpatient Physical Therapy Treatment Note [facility] Date: 05/21/22 SUBJECTIVE: Pt reports having difficulty breathing today. OBJECTIVE: Sit-supine: SBA Sit-stand: SBA Stand-sit: SBA GAIT Assistive Device: FWW Weight bearing: Full Assist: SBA Distance: from bed to commode a couple of steps THEREX: Supine shoulder fleixon x 10, abd x 10, rowing x 10, circles x 10, heel slides x 10, hip abd x 10, q.s. x 10, ankle pumps x 10. ASSESSMENT: Pt was having more difficulty breathing today and had to use the mask for oxygen most of her session today. Pt did require frequent rest periods due to SOB. PLAN: Cont as per PT POC. TREATMENT CODE/TIME: 9:45-10:05 (20) [facility]
[2022-05-21 11:44] LABS: Lab Add On Test DONE
[2022-05-21 12:06] LABS: Hemoglobin A1C 5.7 % (<5.7)
[2022-05-21] MEDS: VANCOMYCIN 750 MG in Normal Saline 250 ML 166 MG IVPB ×2 (12:14→23:43)
[2022-05-21] MEDS: LORazepam 0.5 MG TAB PO (13:54)
[2022-05-21] MEDS: Acetaminophen 325 MG TAB 650 MG PO (13:54)
--- NOTE | 2022-05-21 14:30 | W.PM.PROGNOT ---
Date of Service Date of service: 05/21/22 Time of Service: 14:30 Assessment and Plan Assessment and plan (1) Acute and chronic respiratory failure: Status: Acute Assessment and plan: Generally improving. Now on regular NC @ 2.5 LPM. Continue her LAMA/LABA (Stiolot Respimat) and her ICS (Asmanex) along w/ prn bronchodilator updrafts; cont. use of I.S. Encourage inreased activity. Continue P.T. to improve her strength. Patient now approved for her Trilogy device but will need to be brought in prior to her discharge. Qualifiers: Respiratory failure complication: hypoxia and hypercapnia Qualified Code(s): J96.21 - Acute and chronic respiratory failure with hypoxia; J96.22 - Acute and chronic respiratory failure with hypercapnia (2) COPD (chronic obstructive pulmonary disease): Status: Chronic Assessment and plan: as above for respiratory failure Qualifiers: COPD type: COPD with acute exacerbation Qualified Code(s): J44.1 - Chronic obstructive pulmonary disease with (acute) exacerbation (3) Central line infection: Status: Suspected Assessment and plan: CVC tip grew GP zari and one blood culture grew Bacillus species. Patient is on Vancomycin d#7 days. (Through 05/25). Repeat blood cx negative x 24H. (4) Paroxysmal atrial fibrillation with rapid ventricular response: Status: Acute Assessment and plan: Remains in NSR, rhythm control w/ amiodarone and rate controlled w/ metoprolol. patient anticoagulated w/ apixaban. She is still on the loading doses of her amiodarone through 05/26 afterwards she should go down to 200 mg daily. (5) Peripheral arterial occlusive disease: Status: Chronic Assessment and plan: Aortogram w/ bilateral lower extremity runoff was done on 05/16 and demonstrated bilateral disease w/ R SFA occlusion w/ reconstitution via profunda collaterals but also has R posterior tibial occlusion; left side w/ multilevel disease but has good 3 vessel runoff at the calf. Due to her having ischemic of the left great toe for several days, she was placed on aspirin therapy along w/ her apixaban. She is on a PPI for GI protection from bleeding. (6) Elevated troponin I level: Status: Acute Assessment and plan: type II demand ischemia; preserved LV and RV function per echo 05/10 (7) (HFpEF) heart failure with preserved ejection fraction: Status: Chronic Assessment and plan: Lasix resumed per pulmonary service who feels that she will need lifelong diuretics. Also now on spironolactone to reduce her need for potassium and to help w/ diuretic control. Now on increased torsemide of 40 mg daily. Will continue to monitor her BMP (8) Anemia: Status: Chronic Assessment and plan: she has iron deficiency anemia. Serum iron is 35 w/ high TIBC 580, lower normal level of ferritin 31. I will put her on ferrous sulfate 325 mg bid along w/ vitamin C for absorption given her need for a PPI. (9) Seizure: Status: Suspected Assessment and plan: brain MRI ordered but not done. Hopefully will get on Sunday. If no evidence for CVA then can dc elena (10) DVT prophylaxis: Status: Acute Assessment and plan: now on apixaban (11) Discharge planning issues: Status: Acute Assessment and plan: Full code As per Dr Wu; she has indicated that she does not want to be reintubated. Palliative care met w/ the patient last week and completed a COLST form indicating that she wanted a short trial of reintubation in the event of acute respiratory failure. I do not believe this is actually her current wishes. I think that this should be re-visited w/ the patient and her family involvement and that hospital medicine should be involved in this discussion. She is now on med/surg and progressing. If she continues to improve then she could potentially be discharged mid week. disposition will depend on P.T. recommendations for inpatient skilled vs home health Subjective Subjective Patient reports: feels better, tolerating a regular diet, shortness of breath and afebrile; denies nausea or vomiting Interval history since last seen: She feels her SOA is improving Exam Narrative Exam Narrative: Gen: Sitting up in bed. She gets to the commode w/o assistance ambulating. Lungs: clear anteriorly and posteriorly she is clear in mid and upper camejo;some diminished at bases. Mild SOA with conversation. Heart: regular w/out murmur; (review of her telemetry she is in NSR) Abdomen: soft, nontender; normal bowel sounds Exts: Trace of pedal and pretibial edema. No calf tenderness. Objective Last Vital Signs Temp 37 C 05/21/22 11:22 Pulse 74 05/21/22 11:22 Resp 22 05/21/22 11:22 BP 139/89 05/21/22 11:22 Pulse Ox 95 05/21/22 11:22 Laboratory Results - last 24 hr 05/21/22 05/21/22 05/21/22 06:25 06:25 06:25 Sodium 141 Potassium 4.4 Chloride 99 Carbon Dioxide 41.5 H Anion Gap 0.5 L BUN 18 Creatinine 0.7 Est GFR (CKD-EPI 2020) 97.12 Glucose 100 Hemoglobin A1c 5.7 Calcium 9.0 Add-On Test Request DONE
[2022-05-21] MEDS: Melatonin 3 MG TAB 6 MG PO (21:09)
[2022-05-21] MEDS: Metoprolol CR 100 MG TABCR 200 MG PO (21:09)
[2022-05-21] MEDS: Normal Saline Flush 10 ML SYR IVP ×2 (21:10→23:41)
[2022-05-21] MEDS: Levalbuterol 1.25 MG/3 ML UPD VIAL UPD (23:37)
[2022-05-21] MEDS: Normal Saline 500 ML 30 ML IV (23:42)
[2022-05-22] VITALS (7 sets, daily range): BP systolic 142–165; BP diastolic 79–90; PULSE 70–78; RESP 22–25; TEMP 36.2–37; O2SAT 92–96
[2022-05-22] MEDS: LORazepam 0.5 MG TAB PO (03:21)
[2022-05-22] MEDS: Levalbuterol 1.25 MG/3 ML UPD VIAL UPD (05:50)
[2022-05-22 06:52] LABS: Absolute Basophil Count 0.04 10^3/uL (0.0-0.2); Absolute Eosinophil Count 0.07 10^3/uL (0.0-0.7); Absolute Lymphocyte Count 0.55 10^3/uL (1.2-3.4); Absolute Monocyte Count 0.68 10^3/uL (0.1-0.8); Absolute Neutrophil Count 7.89 10^3/uL (1.2-6.7); Basophils % 0.4; Eosinophils % 0.8; HCT 34.5 % (36.0-46.0); HGB 10.2 g/dL (11.2-15.7); Immature Grans % 1.1; Lymphocytes % 5.9; MCH 25.5 pg (27.0-33.0); MCHC 29.6 % (32.0-36.0); MCV 86 fL (80-95); MPV 9.8 fL (8.0-11.0); Monocytes % 7.3; Neutrophils % 84.5; Platelet Count 248 10^3/uL (130-400); RDW 17.2 % (11.7-14.6); RDW-SD 54.4 fL; WBC 9.33 10^3/uL (4.4-10.8)
[2022-05-22 07:12] LABS: ALT 76 U/L (14-59); AST 40 U/L (15-37); Albumin 3.1 g/dL (3.4-5.0); Alkaline Phosphatase 50 U/L (46-116); Anion Gap 1.4 mmol/L (3-11); BUN 19 mg/dL (7-18); Bilirubin, Total 0.6 mg/dL (0.2-1.0); CO2 42.6 mmol/L (21.0-32.0); Calcium 8.9 mg/dL (8.5-10.1); Chloride 96 mmol/L (98-107); Glucose 96 mg/dL (74-106); Magnesium 1.8 mg/dL (1.8-2.4); Sodium 140 mmol/L (136-145); Total Protein 6.4 g/dL (6.4-8.2)
[2022-05-22] MEDS: Multivitamin w/Minerals TAB 1 TAB PO (07:43)
[2022-05-22] MEDS: Amiodarone 200 MG TAB 400 MG PO ×2 (07:43→20:55)
[2022-05-22] MEDS: FLUoxetine 10 MG TAB PO (07:43)
[2022-05-22] MEDS: Ferrous Sulfate 325 MG TAB PO ×2 (07:43→20:55)
[2022-05-22] MEDS: Norethindrone 5 MG TAB 10 MG PO ×2 (07:43→20:54)
[2022-05-22] MEDS: Pantoprazole 40 MG TABCR PO (07:43)
[2022-05-22] MEDS: Spironolactone 25 MG TAB PO (07:44)
[2022-05-22] MEDS: Apixaban 5 MG TAB PO ×2 (07:44→20:55)
[2022-05-22] MEDS: Aspirin 81 MG CHEW PO (07:44)
[2022-05-22] MEDS: levETIRAcetam 500 MG TAB 1000 MG PO ×2 (07:44→20:55)
[2022-05-22] MEDS: Torsemide 20 MG TAB 40 MG PO (07:44)
[2022-05-22] MEDS: Magnesium Oxide 400 MG TAB 800 MG PO ×2 (07:44→20:55)
[2022-05-22] MEDS: Ascorbic Acid 500 MG TAB PO ×2 (07:44→20:55)
[2022-05-22] MEDS: Protein Nutritional Supplement 16 GM 1 OUNCE PACKET PO ×2 (07:45→20:54)
[2022-05-22] MEDS: Normal Saline Flush 10 ML SYR IVP ×4 (07:45→23:44)
[2022-05-22] MEDS: Tiotropium/Olodaterol 10 PUFF INHALER 2 PUFF IH (07:55)
[2022-05-22] MEDS: Mometasone 220 MCG 14 DOSE INHALER 1 PUFF IH ×2 (07:55→20:56)
--- NOTE | 2022-05-22 08:03 | PCNE_ITS ---
Date of service: 05/22/22 Time of Service: 08:04 History of Present Illness History of Present Illness Chief Complaint: hypoxia and dyspnea Narrative: Елена has had a long course of problems with her COPD and hypoxia. She was intubated and is now extubated and in her hospital room. She does have on BiPAP. Per pulmonology her trilogy machine was recently approved. She was seen last week by Dr. Mon. At that time she stated she would except a trial of intubation. She had spoken to the nurses and said that she wanted to change th at and not be intubated again. I was asked to clarify her goals of care and her CODE STATUS. Елена was somewhat confused. She could not remember what she had said in the past. She said she wants to live and she is okay with a trial of intubation Assessment and Plan Assessment and plan (1) Palliative care encounter: Status: Acute Assessment and plan: Елена and I reminisced about her granddaughter. She could clearly tell me events relating to her granddaughter. She was somewhat confused about CODE STATUS and what she would choose but again stated that she wants to live and that she would be okay with a trial of intubation. Since this is in keeping with her recent COLST form, I will not change her CODE STATUS. She is a full code. Thank you very much for consulting me. Hopefully the trilogy will work well for Елена and her thinking will be more clear as time goes on. She seems struggling to think and also to breath on our visit today Review of Systems Narrative: She states that she is presently somewhat confused. It is hard for her to breathe. She is very thirsty and asked for a drink during our time together. She wants to get home as soon as possible to be with her loved ones [facility] All Active Problems (Updated 05/19/22 @ 09:47 by Norman Wu MD) Peripheral arterial occlusive disease (Chronic) Anemia (Chronic) Palliative care encounter (Acute) Ischemia of foot (Acute) Paroxysmal atrial fibrillation with rapid ventricular response (Acute) PAF (paroxysmal atrial fibrillation) (Acute) Discharge planning issues (Acute) DVT prophylaxis (Acute) Leukocytosis (Acute) Hyperkalemia (Acute) CHF exacerbation (Acute) Acute on chronic respiratory acidosis (Acute) Respiratory failure with hypoxia and hypercapnia (Acute) Elevated troponin I level (Acute) Altered mental status (Acute) Hypercarbia (Acute) Acidemia (Acute) SOB (shortness of breath) (Acute) Hypercarbia (Acute) COPD exacerbation (Acute) Acute and chronic respiratory failure (Acute) Vaginal bleeding (Acute) Hyponatremia (Acute) Pulmonary hypertension (Chronic) Hypoxia (Chronic) (HFpEF) heart failure with preserved ejection fraction (Chronic) Anxiety (Chronic) Dyspnea (Acute) Acute anemia (Acute) Postmenopausal bleeding (Acute) Dyspnea on exertion (Acute) S/P left inguinal hernia repair (Acute) 01/21/19 Dr Odette Cormier, left Left inguinal hernia (Acute) Incarcerated inguinal hernia, unilateral (Acute) Small bowel obstruction (Acute) Dehydration (Acute) Hypertension (Chronic) Change in mental status (Acute) Cardiomyopathy (Chronic) Iron deficiency anemia due to chronic blood loss (Chronic) Chronic bronchitis with COPD (chronic obstructive pulmonary disease) (Acute) COPD (chronic obstructive pulmonary disease) (Chronic) Medical History Alcohol abuse History of alcohol abuse, reports sober since 2013 Alcoholic gastritis Former smoker Hyponatremia Mood disorder with psychosis Neck pain on right side Palliative care patient Pneumonia Post-menopausal bleeding Pulmonary hypertension Respiratory failure with hypoxia Uterine mass Not candidate for surgery at [facility] or [facility].08/10/21. Had partial uterine artery embolization. Unable to complete / hypoxia. 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 Daughter Evonne Hernandez Do you feel safe at home: Yes Do you feel safe in your relationship?: Yes Exam Narrative Exam Narrative: 61-year-old woman with severe COPD and recent respiratory failure. She is now extubated. She was very clear that she would except a trial of intubation. At the same time she could not really remember what she had chosen in the past. Lungs few scattered wheezing but little air movement. Heart was regular. She was struggling to talk and could only speak in 2-3 word sentences. She kept removing the mask so that she could talk. Results Last Vital Signs Temp 98.2 F 05/22/22 07:26 Pulse 74 05/22/22 07:26 Resp 22 05/22/22 07:26 BP 165/83 H 05/22/22 07:26 Pulse Ox 94 05/22/22 07:26 Labs Result diagrams: 05/22/22 06:00 05/22/22 06:00 Labs: Laboratory Results - last 24 hr 05/21/22 05/21/22 05/22/22 06:25 06:25 06:00 WBC RBC Hgb Hct MCV MCH MCHC RDW Plt Count MPV Immature Gran % Neutrophils % Lymphocytes % Monocytes % Eosinophils % Basophils % Nucleated RBC % Absolute Neutrophils Absolute Lymphocytes Absolute Monocytes Absolute Eosinophils Absolute Basophils Sodium 140 Potassium 4.0 Chloride 96 L Carbon Dioxide 42.6 H Anion Gap 1.4 L BUN 19 H Creatinine 1.0 Est GFR (CKD-EPI 2020) 63.30 Glucose 96 Hemoglobin A1c 5.7 Calcium 8.9 Magnesium 1.8 Total Bilirubin 0.6 AST 40 H ALT 76 H Alkaline Phosphatase 50 Total Protein 6.4 Albumin 3.1 L Add-On Test Request DONE 05/22/22 06:00 WBC 9.33 RBC 4.00 Hgb 10.2 L Hct 34.5 L MCV 86 MCH 25.5 L MCHC 29.6 L RDW 17.2 H Plt Count 248 MPV 9.8 Immature Gran % 1.1 Neutrophils % 84.5 Lymphocytes % 5.9 Monocytes % 7.3 Eosinophils % 0.8 Basophils % 0.4 Nucleated RBC % 0.0 Absolute Neutrophils 7.89 H Absolute Lymphocytes 0.55 L Absolute Monocytes 0.68 Absolute Eosinophils 0.07 Absolute Basophils 0.04 Sodium Potassium Chloride Carbon Dioxide Anion Gap BUN Creatinine Est GFR (CKD-EPI 2020) Glucose Hemoglobin A1c Calcium Magnesium Total Bilirubin AST ALT Alkaline Phosphatase Total Protein Albumin Add-On Test Request
--- NOTE | 2022-05-22 08:39 | PUCON_ITS ---
General Date Of Service Date of service: 05/22/22 Time of Service: 08:00 Requesting physician: Norman Wu Reason for Consult: Hypoxic and hypercapnic respiratory failure Assessment and Plan Assessment and plan (1) Respiratory failure with hypoxia and hypercapnia: Status: Acute (2) Acute on chronic respiratory acidosis: Status: Acute (3) COPD exacerbation: Status: Acute (4) CHF exacerbation: Status: Acute Assessment and plan: This is a co-morbid 61 yo admitted to the ICU for acute on chronic hypoxic and hypercapnic respiratory failure. She has been diuresed well over the weekend. y and her UOP tapered off overnight. She should be on a daily diuretic regimen to prevent volume overload, but I think maybe her torsemide could be cut in half to avoid over diuresis. I was able to have her Trilogy approved and have reached out to [facility] to set up education tomorrow with her and her daughter. Acute on chronic hypoxic and hypercapnic respiratory failure - s/p MV - BiPAP 14/8 and a back up rate of 12 bpm while napping and at night - NC during the day for sats 88-92% - Trilogy approved for discharge - [facility] informed about possibility of DC for Wed, asked for education for patient and patients daughter to be done tomorrow - I will follow up as an outpatient COPD - nebs prn - home regimen of Stiolto and Flovent - s/p prednisone and azithromycin CHF Exacerbation - recommend negative fluid balance (-500) - continue spirinolactone, would cut torsemide in half History of Present Illness Narrative: Елена is lookiing very good this morning. She has been diuresing well and is cumulatively 4.5L negative for her hospital stay. She is likely approaching discharge so will coordinate with [facility] about education for the Trilogy tomorrow. Consults Consult date: 05/16/22 Review of Systems All systems reviewed & are unremarkable except as noted in HPI and below PFSH All Active Problems (Updated 05/19/22 @ 09:47 by Norman Wu MD) Peripheral arterial occlusive disease (Chronic) Anemia (Chronic) Palliative care encounter (Acute) Ischemia of foot (Acute) Paroxysmal atrial fibrillation with rapid ventricular response (Acute) PAF (paroxysmal atrial fibrillation) (Acute) Discharge planning issues (Acute) DVT prophylaxis (Acute) Leukocytosis (Acute) Hyperkalemia (Acute) CHF exacerbation (Acute) Acute on chronic respiratory acidosis (Acute) Respiratory failure with hypoxia and hypercapnia (Acute) Elevated troponin I level (Acute) Altered mental status (Acute) Hypercarbia (Acute) Acidemia (Acute) SOB (shortness of breath) (Acute) Hypercarbia (Acute) COPD exacerbation (Acute) Acute and chronic respiratory failure (Acute) Vaginal bleeding (Acute) Hyponatremia (Acute) Pulmonary hypertension (Chronic) Hypoxia (Chronic) (HFpEF) heart failure with preserved ejection fraction (Chronic) Anxiety (Chronic) Dyspnea (Acute) Acute anemia (Acute) Postmenopausal bleeding (Acute) Dyspnea on exertion (Acute) S/P left inguinal hernia repair (Acute) 01/21/19 Dr Odette Cormier, left Left inguinal hernia (Acute) Incarcerated inguinal hernia, unilateral (Acute) Small bowel obstruction (Acute) Dehydration (Acute) Hypertension (Chronic) Change in mental status (Acute) Cardiomyopathy (Chronic) Iron deficiency anemia due to chronic blood loss (Chronic) Chronic bronchitis with COPD (chronic obstructive pulmonary disease) (Acute) COPD (chronic obstructive pulmonary disease) (Chronic) Medical History Alcohol abuse History of alcohol abuse, reports sober since 2013 Alcoholic gastritis Former smoker Hyponatremia Mood disorder with psychosis Neck pain on right side Palliative care patient Pneumonia Post-menopausal bleeding Pulmonary hypertension Respiratory failure with hypoxia Uterine mass Not candidate [facility] at [facility] [place] [facility] Had partial uterine artery embolization. Unable to complete 2/2 hypoxia. 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 Daughter Evonne Hernandez Do you feel safe at home: Yes Do you feel safe in your relationship?: Yes Visit Medication and Allergies Active Medications Generic Name Dose Route Start Last Admin Trade Name Freq PRN Reason Stop Dose Admin Acetaminophen 650 mg 05/16/22 11:37 05/21/22 13:54 Acetaminophen 325 Mg Tab PO 650 mg Q4H PRN PRN Administration Amiodarone HCl 400 mg 05/16/22 09:00 05/22/22 07:43 Amiodarone 200 Mg Tab PO 05/26/22 08:59 400 mg BID ESDRAS Administration Apixaban 5 mg 05/17/22 09:25 05/22/22 07:44 Apixaban 5 Mg Tab PO 5 mg BID ESDRAS Administration Ascorbic Acid 500 mg 05/21/22 08:30 05/22/22 07:44 Ascorbic Acid 500 Mg Tab PO 500 mg BID ESDRAS Administration Aspirin 81 mg 05/17/22 08:30 05/22/22 07:44 Aspirin 81 Mg Chew PO 81 mg DAILY ESDRAS Administration Device 1 each 05/10/22 14:00 Inhaler, Assist Device MC DIRECTED ESDRAS Dimethicone/Zinc Oxide 0 gm 05/10/22 11:47 Adriana Protect Cream 142 Gm Tube TP PRN PRN Ferrous Sulfate 325 mg 05/21/22 08:30 05/22/22 07:43 Ferrous Sulfate 325 Mg Tab PO 325 mg BID ESDRAS Administration Fluoxetine HCl 10 mg 05/20/22 09:00 05/22/22 07:43 Fluoxetine 10 Mg Tab PO 10 mg DAILY ESDRAS Administration Sodium Chloride 500 mls @ 0 mls/hr 05/10/22 11:47 05/22/22 03:09 Saline 500ml Bag IV 0 mls/hr PRN PRN Infusion As Directed Vancomycin HCl 750 mg/ Sodium 250 mls @ 166.667 mls/hr 05/15/22 00:00 05/22/22 01:13 Chloride IVPB Infused Q12H ESDRAS Infusion Protocol Per Protocol IV Miscellaneous Supplies 1 each 05/10/22 12:00 Iv Access IV DIRECTED ESDRAS Ipratropium [place] 0.5 mg 05/16/22 07:23 05/20/22 20:42 Ipratropium 0.5 Mg/2.5 Ml Upd Vial UPD 0.5 mg Q4H PRN PRN Administration Iron/Minerals/Multivitamins 1 tab 05/17/22 09:25 05/22/22 07:43 Multivitamin W/Minerals Tab PO 1 tab DAILY ESDRAS Administration Levalbuterol HCl 1.25 mg 05/16/22 07:23 05/22/22 05:50 Levalbuterol 1.25 Mg/3 Ml Upd Vial UPD 1.25 mg Q4H PRN PRN Administration Levetiracetam 1,000 mg 05/16/22 20:00 05/22/22 07:44 Levetiracetam 500 Mg Tab PO 1,000 mg BID ESDRAS Administration Lorazepam 0.5 mg 05/19/22 12:19 Lorazepam 2 Mg/Ml Vial IVP ONCE PRN attraction worker to MRI scan Lorazepam 0.5 mg 05/20/22 00:59 05/22/22 03:21 Lorazepam 0.5 Mg Tab PO 0.5 mg DAILY PRN PRN Administration Magnesium Oxide 800 mg 05/19/22 08:30 05/22/22 07:44 Magnesium Oxide 400 Mg Tab PO 800 mg BID ESDRAS Administration Melatonin 6 mg 05/17/22 22:00 05/21/22 21:09 Melatonin 3 Mg Tab PO 6 mg HS ESDRAS Administration Metoprolol Succinate 200 mg 05/19/22 22:00 05/21/22 21:09 Metoprolol Cr 100 Mg Tabcr PO 200 mg HS ESDRAS Administration Metoprolol Tartrate 5 mg 05/17/22 07:22 Metoprolol 5 Mg/5 Ml Vial IVP Q1H PRN PRN Mometasone Furoate 1 puff 05/16/22 08:30 05/22/22 07:55 Mometasone 220 Mcg 14 Dose Inhaler IH 1 puff BID ESDRAS Administration Multi-Ingredient Supplement 1 ounce 05/16/22 20:00 05/22/22 07:45 Protein Nutritional Supplement 16 Gm 1 Ounce Packet PO 1 ounce BID ESDRAS Administration Nicotine 21 mg 05/10/22 11:47 05/15/22 22:31 Nicotine 21 Mg/24 Hr Patch TD 21 mg DAILY PRN PRN Administration Norethindrone Acetate 10 mg 05/14/22 08:30 05/22/22 07:43 Norethindrone 5 Mg Tab PO 10 mg BID ESDRAS Administration Pantoprazole Sodium 40 mg 05/18/22 07:30 05/22/22 07:43 Pantoprazole 40 Mg Tabcr PO 40 mg DAILY@0730 ESDRAS Administration Sodium Chloride 0 ml 05/10/22 11:47 05/22/22 07:45 Normal Saline Flush 10 Ml Syr IVP 10 ml PRN PRN Administration Spironolactone 25 mg 05/16/22 09:10 05/22/22 07:44 Spironolactone 25 Mg Tab PO 25 mg DAILY ESDRAS Administration Tiotropium [place]/Olodaterol 2 puff 05/16/22 08:30 05/22/22 07:55 Tiotropium/Olodaterol 10 Puff Inhaler IH 2 puffs DAILY ESDRAS Administration Torsemide 40 mg 05/21/22 08:30 05/22/22 07:44 Torsemide 20 Mg Tab PO 40 mg DAILY ESDRAS Administration Allergies No Known Allergies Allergy (Verified 05/10/22 09:11) Exam Narrative Exam Narrative: POCUS 05/10/22:?All views visualized, parasternal view suboptimal. Likely borderline low EF, RV normal size and function. IVC 2.5cm with no collapse (while on 8 of PEEP). No pericardial effusion. No pleural effusions bilaterally. + significant B-lines posteriorly, non significant B-lines anteriorly. Gen:?NAD, sedated and mechanicall ventilated HENT:?PERRL, nasal turbinates normal without erythema or inflammation, moist oral? mucosa, Mallampati 2, No LAD or JVD Chest:?No respiratory distress, normal appearance of chest, clear to auscultation bilaterally, no anterior crackles, normal inspiratory effort Heart:?regular rate and rhythym, no murmurs, rubs or gallops Abdomen:?Non-distended, soft, non tender Extremities:?No clubbing, no edema, cyanosis, rashes Neuro:?non focal Psych:?cooperative Results Last Vital Signs Temp 36.8 C 05/22/22 07:26 Pulse 74 05/22/22 07:26 Resp 22 05/22/22 07:26 BP 165/83 H 05/22/22 07:26 Pulse Ox 94 05/22/22 07:26 Labs Result diagrams: 05/22/22 06:00 05/22/22 06:00 Labs: Laboratory Results - last 24 hr 05/21/22 05/21/22 05/22/22 06:25 06:25 06:00 WBC RBC Hgb Hct MCV MCH MCHC RDW Plt Count MPV Immature Gran % Neutrophils % Lymphocytes % Monocytes % Eosinophils % Basophils % Nucleated RBC % Absolute Neutrophils Absolute Lymphocytes Absolute Monocytes Absolute Eosinophils Absolute Basophils Sodium 140 Potassium 4.0 Chloride 96 L Carbon Dioxide 42.6 H Anion Gap 1.4 L BUN 19 H Creatinine 1.0 Est GFR (CKD-EPI 2020) 63.30 Glucose 96 Hemoglobin A1c 5.7 Calcium 8.9 Magnesium 1.8 Total Bilirubin 0.6 AST 40 H ALT 76 H Alkaline Phosphatase 50 Total Protein 6.4 Albumin 3.1 L Add-On Test Request DONE 05/22/22 06:00 WBC 9.33 RBC 4.00 Hgb 10.2 L Hct 34.5 L MCV 86 MCH 25.5 L MCHC 29.6 L RDW 17.2 H Plt Count 248 MPV 9.8 Immature Gran % 1.1 Neutrophils % 84.5 Lymphocytes % 5.9 Monocytes % 7.3 Eosinophils % 0.8 Basophils % 0.4 Nucleated RBC % 0.0 Absolute Neutrophils 7.89 H Absolute Lymphocytes 0.55 L Absolute Monocytes 0.68 Absolute Eosinophils 0.07 Absolute Basophils 0.04 Sodium Potassium Chloride Carbon Dioxide Anion Gap BUN Creatinine Est GFR (CKD-EPI 2020) Glucose Hemoglobin A1c Calcium Magnesium Total Bilirubin AST ALT Alkaline Phosphatase Total Protein Albumin Add-On Test Request
[2022-05-22] MEDS: LORazepam 2 MG/ML VIAL 0.5 MG IVP (10:46)
--- NOTE | 2022-05-22 11:15 | DI.MRI_ITS ---
Exam(s) MR BRAIN WO EXAM: MR BRAIN WO CLINICAL HISTORY: seizure TECHNIQUE: Multiplanar multisequence MRI of the brain was performed. COMPARISON: No prior brain imaging studies available were available for comparison FINDINGS: There is motion artifact on multiple sequences CEREBRAL PARENCHYMA: There is no evidence of intracranial hemorrhage, mass effect, or shift of midline structures. There are no extra-axial fluid collections. Ventricles are not enlarged or shifted. No significant focal signal abnormality in the cerebellar hemispheres. There is some signal abnormal ity in both sides of the olaf, not associated with restricted diffusion. No abnormal signal in the m idbrain and thalami. Mild signal abnormality in the periventricular white matter. No restricted diffusion evident on DWI No microhemorrhages evident on SWI PITUITARY GLAND: No mass nor parasellar abnormality. No obvious abnormality in the cavernous sinuses. FLOW VOIDS: There is absence of flow void in the right internal carotid artery at the skull base and cavernous sinus. Flow void is noted in the right middle cerebral artery. There is normal flow void in the left internal carotid artery both in the cavernous sinus and supraclinoid aspect. Also normal flow signal in the left middle cerebral artery. There is flow void evident in the vertebral arterie s the skull base as well as the basilar artery. PARANASAL SINUSES: The visualized paranasal sinuses appear unremarkable. No obvious finding ORBITS: No obvious findings. 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 Recommend MRA or CTA of the head and neck There is some signal abnormality in both sides of the olaf and mild periventricular signal abnormalit y consistent with chronic small vessel ischemic changes. There is no evidence of restricted diffusion in the brain to suggest acute infarct at this time. DATA REPOSITORY:
--- NOTE | 2022-05-22 12:07 | PT.INTREAT ---
Date of service: 05/22/22 Time of Service: 09:40 PT Notes Visit Reasons: Hypoxemic/Hypercarbic Respiratory Failure,Seizure Inpatient Physical Therapy Treatment Note [facility] Date: 05/22/2022 PRECAUTIONS: Activity as tolerated SUBJECTIVE: Елена is pleasant and agreeable to participating in PT. She reports that she is feeling better, but feels that she may need SNF-level rehab prior to returning to home. OBJECTIVE: PAIN: No c/o pain BED MOBILITY/TRANSFERS Sit-stand: SBA Stand-sit: SBA GAIT Assistive Device: FWW Weight bearing: Full Assist: SBA Distance: 15' x2 + 5 steps Deviation: Seated rest x2, SOB, increased fatigue THEREX: Patient was instructed in a LE strengthening program, completed in a seated position, to include: heel raises, LAQ, hip flexion, and hip abduction. She requires rests between each exercise due to fatigue and SOB. TOILETING: Patient toileted with SBA for transfers ASSESSMENT: Patient tolerated session well, however, with complaint of increased fatigue and SOB with all activity. She continues to demonstrate limited activity tolerance. PLAN: Continue with global strengthening and gait training for improved activity tolerance. TREATMENT CODE/TIME: Session 1: 24 minutes; [id number], [id number] (09:40) Session 2: Refused x2 due to significant fatigue
[2022-05-22] MEDS: VANCOMYCIN 750 MG in Normal Saline 250 ML 166 MG IVPB (12:53)
[2022-05-22] MEDS: Normal Saline 500 ML 30 ML IV (12:53)
--- NOTE | 2022-05-22 15:02 | PGE_ITS ---
Date of Service Date of service: 05/22/22 Time of Service: 15:02 Assessment and Plan Assessment and plan (1) Acute and chronic respiratory failure: Status: Acute Assessment and plan: Generally improving. Now on regular NC @ 1.5 - 2.5 LPM. O2 saturations 92-95. Continue her LAMA/LABA (Stiolot Respimat) and her ICS (Asmanex) along w/ prn bronchodilator updrafts; cont. use of I.S. Encourage inreased activity. Continue P.T. to improve her strength. Patient now approved for her Trilogy device but will need to be brought in prior to her discharge. Qualifiers: Respiratory failure complication: hypoxia and hypercapnia Qualified Code(s): J96.21 - Acute and chronic respiratory failure with hypoxia; J96.22 - Acute and chronic respiratory failure with hypercapnia (2) COPD (chronic obstructive pulmonary disease): Status: Chronic Assessment and plan: as above for respiratory failure Qualifiers: COPD type: COPD with acute exacerbation Qualified Code(s): J44.1 - Chronic obstructive pulmonary disease with (acute) exacerbation (3) Central line infection: Status: Suspected Assessment and plan: CVC tip grew GP zari and one blood culture grew Bacillus species. Patient is on Vancomycin d#01/22 days. (Through 05/25). Repeat blood cx negative x 24H. (4) Paroxysmal atrial fibrillation with rapid ventricular response: Status: Acute Assessment and plan: Remains in NSR, rhythm control w/ amiodarone and rate controlled w/ metoprolol. patient anticoagulated w/ apixaban. She is still on the loading doses of her amiodarone through 05/26 afterwards she should go down to 200 mg daily. (5) Peripheral arterial occlusive disease: Status: Chronic Assessment and plan: Aortogram w/ bilateral lower extremity runoff was done on 05/16 and demonstrated bilateral disease w/ R SFA occlusion w/ reconstitution via profunda collaterals but also has R posterior tibial occlusion; left side w/ multilevel disease but has good 3 vessel runoff at the calf. Due to her having ischemic of the left great toe for several days, she was placed on aspirin therapy along w/ her apixaban. She is on a PPI for GI protection from bleeding. (6) Elevated troponin I level: Status: Acute Assessment and plan: type II demand ischemia; preserved LV and RV function per echo 05/10 (7) (HFpEF) heart failure with preserved ejection fraction: Status: Chronic Assessment and plan: Lasix resumed per pulmonary service who feels that she will need lifelong diuretics. Also now on spironolactone to reduce her need for potassium and to help w/ diuretic control. Will decrease torsemide to 10 mg daily. Will continue to monitor her BMP (8) Anemia: Status: Chronic Assessment and plan: she has iron deficiency anemia. Serum iron is 35 w/ high TIBC 580, lower normal level of ferritin 31. I will put her on ferrous sulfate 325 mg bid along w/ vitamin C for absorption given her need for a PPI. (9) Seizure: Status: Suspected Assessment and plan: brain MRI ordered but not done. Hopefully will get on Sunday. If no evidence for CVA then can dc elena (10) DVT prophylaxis: Status: Acute Assessment and plan: now on apixaban (11) Discharge planning issues: Status: Acute Assessment and plan: Full code As per Dr Wu; she has indicated that she does not want to be reintubated. Palliative care met w/ the patient last week and completed a COLST form indicating that she wanted a short trial of reintubation in the event of acute respiratory failure. I do not believe this is actually her current wishes. I think that this should be re-visited w/ the patient and her family involvement and that hospital medicine should be involved in this discussion. She is now on med/surg and progressing. If she continues to improve then she could potentially be discharged mid week. disposition will depend on P.T. recommendations for inpatient skilled vs home health. She is agreeable to SNF for rehab. Subjective Subjective Patient reports: no new complaints, feels better, shortness of breath (Imp roving) and afebrile; denies nausea or vomiting Exam Narrative Exam Narrative: Gen: Sitting in recliner. Lungs: clear anteriorly. Diminished. Mild SOA with conversation. Heart: regular w/out murmur Abdomen: soft, nontender; normal bowel sounds Exts: Trace of pedal and pretibial edema. No calf tenderness. Objective Last Vital Signs Temp 37 C 05/22/22 12:36 Pulse 78 05/22/22 12:36 Resp 24 05/22/22 12:36 BP 146/79 H 05/22/22 12:36 Pulse Ox 94 05/22/22 12:36 Laboratory Results - last 24 hr 05/22/22 05/22/22 06:00 06:00 WBC 9.33 RBC 4.00 Hgb 10.2 L Hct 34.5 L MCV 86 MCH 25.5 L MCHC 29.6 L RDW 17.2 H Plt Count 248 MPV 9.8 Immature Gran % 1.1 Neutrophils % 84.5 Lymphocytes % 5.9 Monocytes % 7.3 Eosinophils % 0.8 Basophils % 0.4 Nucleated RBC % 0.0 Absolute Neutrophils 7.89 H Absolute Lymphocytes 0.55 L Absolute Monocytes 0.68 Absolute Eosinophils 0.07 Absolute Basophils 0.04 Sodium 140 Potassium 4.0 Chloride 96 L Carbon Dioxide 42.6 H Anion Gap 1.4 L BUN 19 H Creatinine 1.0 Est GFR (CKD-EPI 2020) 63.30 Glucose 96 Calcium 8.9 Magnesium 1.8 Total Bilirubin 0.6 AST 40 H ALT 76 H Alkaline Phosphatase 50 Total Protein 6.4 Albumin 3.1 L
--- NOTE | 2022-05-22 15:46 | PDOC.CMPRO ---
- If Service Date Differs Date of service: 05/22/22 Time of Service: 15:46 Care Management Progress Note S/O: Елена was sitting up in her chair when CM met with her. PT stated that Елена was thinking about going to short term rehab prior to returning home. CM discussed this with Елена, who stated that she doesn't want to be a burden on her family. CM will send the referral to [facility], which is the only facility she will consider at this time. RT stated that if she chooses to go to a SNF, it may change her ability to have the Trilogy, as this was approved for home use. CM inquired with admissions at [facility] about whether or not they can accommodate a Trilogy machine. Елена stated that she would prefer to return home with the Triology vs going to SNF without it. RT asked for CM to assist with the financial assistance application for [facility], to avoid a copay for Елена upon discharge. CM will continue to follow. A: Deepthi is a 61 female admitted to [facility] on 05/10/22 P: Елена is being closely monitored at ICU level of care. She will likely be discharged home when medically cleared by MD, with a resumption of HH RN. She will follow up with her PCP and plan of care and transport with family. CM will continue to assess and support identified discharge needs.
--- NOTE | 2022-05-22 17:00 | W.PM.PROGNOT ---
Date of Service Date of service: 05/22/22 Time of Service: 17:00 Assessment and Plan Assessment and plan (1) Altered mental status: Status: Acute Assessment and plan: Patient with AMS in setting of hypoxemia and hypercapnea presumed to be secondary to CHF exacerbation. She was noted to have a tongue laceration on initial exam and thus concerns raised for possible seizure activity prior to arrival. Then with diffuse twitching, subtle myoclonus while intubated - captured on EEG with no epileptiform activity - so likely metabolic - and now resolved. Extubation delayed due to afib with RVR - now on heparin; also concern for L leg ischemia. Brain MRI largely unremarkable structurally in regards to seizures and with no other seizure risk factors, I think she can stop the levetiracetam at this time. MRI brain however, concerning for R ICA occlusion. I recommend a CTA head/neck as further work-up. She has already been started on aspirin 81mg daily during this hospitalization. She is also on Eliquis 5mg BID. Consider updated lipid panel + statin pending CTA results. Subjective Subjective Interval history since last seen: No seizures. She has been slowly reducing her O2 needs with diuresis. Awaiting trilogy device. -MRI brain (05/22/22): No acute findings. Mild chronic vascular changes. Concern for R ICA occlusion. I reviewed these images personally and this is my personal interpretation. Exam Narrative Exam Narrative: Physical Exam: Constitutional: Patient of apparent stated age, well nourished, well developed, no acute distress Extrem: Mottling/purpling L ball of foot Neuro: MS/Language/Speech: Alert, awake, following commands; mild dysarthria Motor: Normal bulk and tone. FMM reduced bilaterally. Moves all extremities equally - diffusely weak 4+/5. Coordination: no ataxia Objective Last Vital Signs Temp 98.6 F 05/22/22 15:56 Pulse 74 05/22/22 15:56 Resp 25 H 05/22/22 15:56 BP 152/87 H 05/22/22 15:56 Pulse Ox 94 05/22/22 15:56 Laboratory Results - last 24 hr 05/22/22 05/22/22 06:00 06:00 WBC 9.33 RBC 4.00 Hgb 10.2 L Hct 34.5 L MCV 86 MCH 25.5 L MCHC 29.6 L RDW 17.2 H Plt Count 248 MPV 9.8 Immature Gran % 1.1 Neutrophils % 84.5 Lymphocytes % 5.9 Monocytes % 7.3 Eosinophils % 0.8 Basophils % 0.4 Nucleated RBC % 0.0 Absolute Neutrophils 7.89 H Absolute Lymphocytes 0.55 L Absolute Monocytes 0.68 Absolute Eosinophils 0.07 Absolute Basophils 0.04 Sodium 140 Potassium 4.0 Chloride 96 L Carbon Dioxide 42.6 H Anion Gap 1.4 L BUN 19 H Creatinine 1.0 Est GFR (CKD-EPI 2020) 63.30 Glucose 96 Calcium 8.9 Magnesium 1.8 Total Bilirubin 0.6 AST 40 H ALT 76 H Alkaline Phosphatase 50 Total Protein 6.4 Albumin 3.1 L
[2022-05-22] MEDS: Metoprolol CR 100 MG TABCR 200 MG PO (22:01)
[2022-05-22] MEDS: Melatonin 3 MG TAB 6 MG PO (22:02)
[2022-05-22] MEDS: VANCOMYCIN 750 MG in Normal Saline 250 ML 166.6 MG IVPB (23:43)
[2022-05-23] VITALS (10 sets, daily range): BP systolic 134–163; BP diastolic 70–97; PULSE 70–77; RESP 2–25; TEMP 36.6–37.1; O2SAT 93–96
--- NOTE | 2022-05-23 | DI.CT_ITS ---
Exam(s) CT BRAIN NECK CTA EXAM: CT BRAIN NECK CTA CLINICAL HISTORY: likely occlusion of R internal carotid artery on M. TECHNIQUE: Imaging Protocol: Axial CT angiography was performed with multi-slice acquisition and mu lti-planar and/or 3D reconstructions. CONTRAST MATERIAL: Intravenous: Omnipaque 350 contrast volume:85 mL COMPARISON: CT CT ABD AORTA CTA W RUNOFF from 05/16/2022 MR MR BRAIN WO from 05/22/2022 FINDINGS: The examination is limited due to patient motion artifact. CT Head W/O and W: Ventricles and Extra axial spaces: Normal in size and morphology for the patient's age. Hemorrhage: None. Cerebral parenchyma: No evidence of an acute territorial infarct. Midline shift: None. Brainstem/Cerebellum: Normal. Calvarium: Normal. Visualized Paranasal sinuses/Mastoids: Clear. Soft Tissues: Unremarkable. Enhancement: Unremarkable. CTA Neck W: Common Carotid: Right: No dissection, occlusion or significant stenosis. Left: No dissection, occlusion or significant stenosis. External Carotid: Right: No occlusion or significant stenosis. Left: No occlusion or significant stenosis. Internal Carotid: Right: There is occlusion of the right internal carotid artery beginning at the bifurcation and thro ughout its course into the cavernous sinus portion. Left: No dissection, occlusion or significant stenosis. There is mild atherosclerosis at the origin of the left internal carotid artery. Vertebral Artery: Right: No dissection, occlusion or significant stenosis. Left: No dissection, occlusion or significant stenosis. Lung Apices: Patchy ground-glass opacities are seen in the lung apices. Bones: Within normal limits for the patient's age. There is reversal of the normal cervical lordosis. 3 mm anterolisthesis of C3 on C4 is noted. Soft Tissues: Normal. Thyroid gland: There is a 1.3 cm hypodense nodule in the right lobe of the thyroid gland. Nonemergen t thyroid ultrasound is recommended. CTA Brain W: Internal Carotid Arteries: There is occlusion of the right internal carotid artery throughout its ent keith length. Anterior Cerebral Arteries: Right: No aneurysm, occlusion or significant stenosis. Left: No aneurysm, occlusion or significant stenosis. Middle Cerebral Arteries: Right: No aneurysm, occlusion or significant stenosis. Left: No aneurysm, occlusion or significant stenosis. Posterior Cerebral Arteries: Right: No aneurysm, occlusion or significant stenosis. Left: No aneurysm, occlusion or significant stenosis. The left GL[employer] arises from the left PCOM which i s a normal variant. Vertebral Arteries: Right: No aneurysm, occlusion or significant stenosis. Left: No aneurysm, occlusion or significant stenosis. Basilar Artery: No aneurysm, occlusion or significant stenosis. IMPRESSION: 1. 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 2. The remainder of the CT angiography of the head is unremarkable. 3. No acute intracranial process. 4. No occlusion or significant stenosis on the CT angiography of the neck. 5. Ground-glass opacities in the lung apices. This may be due to atelectasis but an infectious proce ss or edema cannot be excluded. Please correlate clinically. RADIATION DOSE DELIVERED: 2,171.96mGy.cm Total DLP DATA REPOSITORY: All CT scans at this facility are submitted to the National Radiology Data Registry (NRDR) Dose Index Registry (DIR) with the [employer] ([employer]). RADIATION OPTIMIZATION: All CT scans at this facility use at least one of these dose optimization te chniques: automated exposure control; mA and/or kV adjustment per patient size (includes targeted exa ms where dose is matched to clinical indication); or iterative reconstruction.
[2022-05-23] MEDS: Ipratropium 0.5 MG/2.5 ML UPD VIAL UPD ×2 (00:35→13:43)
[2022-05-23] MEDS: Mometasone 220 MCG 14 DOSE INHALER 1 PUFF IH ×2 (07:39→20:30)
[2022-05-23] MEDS: Tiotropium/Olodaterol 10 PUFF INHALER 2 PUFF IH (07:39)
[2022-05-23] MEDS: Protein Nutritional Supplement 16 GM 1 OUNCE PACKET PO ×2 (08:22→20:20)
[2022-05-23] MEDS: Torsemide 20 MG TAB 10 MG PO (08:22)
[2022-05-23] MEDS: Amiodarone 200 MG TAB 400 MG PO ×2 (08:23→20:21)
[2022-05-23] MEDS: Aspirin 81 MG CHEW PO (08:23)
[2022-05-23] MEDS: FLUoxetine 10 MG TAB PO (08:23)
[2022-05-23] MEDS: Ferrous Sulfate 325 MG TAB PO ×2 (08:23→20:21)
[2022-05-23] MEDS: Multivitamin w/Minerals TAB 1 TAB PO (08:23)
[2022-05-23] MEDS: Pantoprazole 40 MG TABCR PO (08:24)
[2022-05-23] MEDS: Ascorbic Acid 500 MG TAB PO ×2 (08:24→20:21)
[2022-05-23] MEDS: Apixaban 5 MG TAB PO ×2 (08:24→20:21)
[2022-05-23] MEDS: levETIRAcetam 500 MG TAB 1000 MG PO ×2 (08:24→20:21)
[2022-05-23] MEDS: Spironolactone 25 MG TAB PO (08:24)
[2022-05-23] MEDS: Magnesium Oxide 400 MG TAB 800 MG PO ×2 (08:24→20:21)
[2022-05-23] MEDS: Normal Saline Flush 10 ML SYR IVP ×2 (08:25→20:20)
[2022-05-23] MEDS: Norethindrone 5 MG TAB 10 MG PO ×2 (08:25→20:21)
[2022-05-23] MEDS: Omnipaque 350 MG/ML 500 ML BTL-Imaging package IJ (09:41)
--- NOTE | 2022-05-23 10:04 | PGE_ITS ---
Assessment and Plan Assessment and plan (1) Respiratory failure with hypoxia and hypercapnia: Status: Acute (2) Acute on chronic respiratory acidosis: Status: Acute (3) COPD exacerbation: Status: Acute (4) CHF exacerbation: Status: Acute Assessment and plan: This is a co-morbid 61 yo admitted to the ICU for acute on chronic hypoxic and hypercapnic respiratory failure. She has been diuresed well over the weekend. y and her UOP tapered off overnight. She should be on a daily diuretic regimen to prevent volume overload, but I think maybe her torsemide could be cut in half to avoid over diuresis. I was able to have her Trilogy approved and have reached out to [facility] to set up education today with her daughter present at 3:30 to go over education and how to use the machine. Acute on chronic hypoxic and hypercapnic respiratory failure - s/p MV - will use the Trilogy device this evening and not the hospital BiPAP - education with her daughter with [facility] today at 3:30 to go over the machine - NC during the day for sats 88-92 - I will follow up as an outpatient COPD - nebs prn - home regimen of Stiolto and Flovent - s/p prednisone and azithromycin CHF Exacerbation - recommend negative fluid balance (-500) - continue spirinolactone, torsemide was cut down General Date Of Service Date of service: 05/23/22 Time of Service: 08:30 Requesting physician: Norman Wu Reason for Consult: Hypoxic and hypercapnic respiratory failure Subjective Note Note: Елена is doing good today. Her breathing continues to improve. She is mentioning that she feels tired today. At 3:30 [facility] and her daughter will meet with her to go over the Trilogy education and get her set up. Exam Narrative Exam Narrative: POCUS 05/10/22: All views visualized, parasternal view suboptimal. Likely borderline low EF, RV normal size and function. IVC 2.5cm with no collapse (while on 8 of PEEP). No pericardial effusion. No pleural effusions bilaterally. + significant B-lines posteriorly, non significant B-lines anteriorly. Gen: NAD, sedated and mechanicall ventilated HENT: PERRL, nasal turbinates normal without erythema or inflammation, moist oral mucosa, Mallampati 2, No LAD or JVD Chest: No respiratory distress, normal appearance of chest, clear to auscultation bilaterally, no anterior crackles, normal inspiratory effort Heart: regular rate and rhythym, no murmurs, rubs or gallops Abdomen: Non-distended, soft, non tender Extremities: No clubbing, no edema, cyanosis, rashes - warm B/L feet. Neuro: non focal Psych: cooperative Objective Last Vital Signs Temp 36.8 C 05/23/22 07:33 Pulse 77 05/23/22 07:33 Resp 22 05/23/22 07:33 BP 143/82 H 05/23/22 07:33 Pulse Ox 93 05/23/22 07:33 Results Medications Medications: Active Medications Generic Name Dose Route Start Last Admin Trade Name Freq PRN Reason Stop Dose Admin Acetaminophen 650 mg 05/16/22 11:37 05/21/22 13:54 Acetaminophen 325 Mg Tab PO 650 mg Q4H PRN PRN Administration Amiodarone HCl 400 mg 05/16/22 09:00 05/23/22 08:23 Amiodarone 200 Mg Tab PO 05/26/22 08:59 400 mg BID ESDRAS Administration Apixaban 5 mg 05/17/22 09:25 05/23/22 08:24 Apixaban 5 Mg Tab PO 5 mg BID ESDRAS Administration Ascorbic Acid 500 mg 05/21/22 08:30 05/23/22 08:24 Ascorbic Acid 500 Mg Tab PO 500 mg BID ESDRAS Administration Aspirin 81 mg 05/17/22 08:30 05/23/22 08:23 Aspirin 81 Mg Chew PO 81 mg DAILY ESDRAS Administration Device 1 each 05/10/22 14:00 Inhaler, Assist Device MC DIRECTED ESDRAS Dimethicone/Zinc Oxide 0 gm 05/10/22 11:47 Adriana Protect Cream 142 Gm Tube TP PRN PRN Ferrous Sulfate 325 mg 05/21/22 08:30 05/23/22 08:23 Ferrous Sulfate 325 Mg Tab PO 325 mg BID ESDRAS Administration Fluoxetine HCl 10 mg 05/20/22 09:00 05/23/22 08:23 Fluoxetine 10 Mg Tab PO 10 mg DAILY ESDRAS Administration Sodium Chloride 500 mls @ 0 mls/hr 05/10/22 11:47 05/23/22 01:25 Saline 500ml Bag IV 0 mls/hr PRN PRN Infusion As Directed Vancomycin HCl 750 mg/ Sodium 250 mls @ 166.667 mls/hr 05/15/22 00:00 05/23/22 01:20 Chloride IVPB Infused Q12H ESDRAS Infusion Protocol Per Protocol IV Miscellaneous Supplies 1 each 05/10/22 12:00 Iv Access IV DIRECTED ESDRAS Iohexol 500 ml 05/23/22 09:45 05/23/22 09:41 Omnipaque 350 Mg/Ml 500 Ml Btl-Imaging Package IJ 05/23/22 12:00 85 ml DIRECTED ESDRAS Administration Ipratropium [place] 0.5 mg 05/16/22 07:23 05/23/22 00:35 Ipratropium 0.5 Mg/2.5 Ml Upd Vial UPD 0.5 mg Q4H PRN PRN Administration Iron/Minerals/Multivitamins 1 tab 05/17/22 09:25 05/23/22 08:23 Multivitamin W/Minerals Tab PO 1 tab DAILY ESDRAS Administration Levalbuterol HCl 1.25 mg 05/16/22 07:23 05/22/22 05:50 Levalbuterol 1.25 Mg/3 Ml Upd Vial UPD 1.25 mg Q4H PRN PRN Administration Levetiracetam 1,000 mg 05/16/22 20:00 05/23/22 08:24 Levetiracetam 500 Mg Tab PO 1,000 mg BID ESDRAS Administration Lorazepam 0.5 mg 05/19/22 12:19 Lorazepam 2 Mg/Ml Vial IVP ONCE PRN [employer] consultant to MRI scan Lorazepam 0.5 mg 05/20/22 00:59 05/22/22 03:21 Lorazepam 0.5 Mg Tab PO 0.5 mg DAILY PRN PRN Administration Magnesium Oxide 800 mg 05/19/22 08:30 05/23/22 08:24 Magnesium Oxide 400 Mg Tab PO 800 mg BID ESDRAS Administration Melatonin 6 mg 05/17/22 22:00 05/22/22 22:02 Melatonin 3 Mg Tab PO 6 mg HS ESDRAS Administration Metoprolol Succinate 200 mg 05/19/22 22:00 05/22/22 22:01 Metoprolol Cr 100 Mg Tabcr PO 200 mg HS ESDRAS Administration Metoprolol Tartrate 5 mg 05/17/22 07:22 Metoprolol 5 Mg/5 Ml Vial IVP Q1H PRN PRN Mometasone Furoate 1 puff 05/16/22 08:30 05/23/22 07:39 Mometasone 220 Mcg 14 Dose Inhaler IH 1 puff BID ESDRAS Administration Multi-Ingredient Supplement 1 ounce 05/16/22 20:00 05/23/22 08:22 Protein Nutritional Supplement 16 Gm 1 Ounce Packet PO 1 ounce BID ESDRAS Administration Nicotine 21 mg 05/10/22 11:47 05/15/22 22:31 Nicotine 21 Mg/24 Hr Patch TD 21 mg DAILY PRN PRN Administration Norethindrone Acetate 10 mg 05/14/22 08:30 05/23/22 08:25 Norethindrone 5 Mg Tab PO 10 mg BID ESDRAS Administration Pantoprazole Sodium 40 mg 05/18/22 07:30 05/23/22 08:24 Pantoprazole 40 Mg Tabcr PO 40 mg DAILY@0730 ESDRAS Administration Sodium Chloride 0 ml 05/10/22 11:47 05/23/22 08:25 Normal Saline Flush 10 Ml Syr IVP 10 ml PRN PRN Administration Spironolactone 25 mg 05/16/22 09:10 05/23/22 08:24 Spironolactone 25 Mg Tab PO 25 mg DAILY ESDRAS Administration Tiotropium [place]/Olodaterol 2 puff 05/16/22 08:30 05/23/22 07:39 Tiotropium/Olodaterol 10 Puff Inhaler IH 2 puffs DAILY ESDRAS Administration Torsemide 10 mg 05/23/22 08:30 05/23/22 08:22 Torsemide 20 Mg Tab PO 10 mg DAILY ESDRAS Administration Allergies No Known Allergies Allergy (Verified 05/10/22 09:11) Labs Result Diagrams: 05/22/22 06:00 05/22/22 06:00 Labs: 05/20/22 06:23 Blood Blood Culture - Preliminary NO GROWTH 72 HOURS 05/20/22 06:15 Blood Blood Culture - Preliminary NO GROWTH 72 HOURS 05/19/22 12:40 Blood Blood Culture - Preliminary NO GROWTH 72 HOURS 05/15/22 15:35 Blood Blood Culture - Final Bacillus Sp., Not Anthracis 05/15/22 15:33 Blood Blood Culture - Final NO GROWTH 120 HOURS 05/13/22 22:58 Blood Blood Culture - Final Staphylococcus Epidermidis 05/13/22 23:05 Blood Blood Culture - Final NO GROWTH 120 HOURS 05/15/22 10:50 Tip/Tube Catheter Tip Culture - Final Gram Positive Marielle 05/14/22 13:00 Sputum Sputum Culture - Final 05/14/22 13:00 Sputum Gram Stain - Final 05/15/22 11:50 Nose MRSA Screen - Final Laboratory Tests Range/Units 05/10/22 05/10/22 05/10/22 06:52 06:52 06:52 WBC (4.4-10.8) 10^3/uL 11.73 H RBC (3.93-5.22) 10^6/uL 4.30 Hgb (11.2-15.7) g/dL 11.0 L Hct (36.0-46.0) % 39.7 MCV (80-95) fL 92 MCH (27.0-33.0) pg 25.6 L MCHC (32.0-36.0) % 27.7 L RDW (11.7-14.6) % 17.8 H Plt Count (130-400) 10^3/uL 258 MPV (8.0-11.0) fL 9.7 Immature Gran % 1.9 Neutrophils % 87.0 Lymphocytes % 3.8 Monocytes % 6.9 Eosinophils % 0.0 Basophils % 0.4 Nucleated RBC % (0.0-0.3) % 0.6 H Absolute Neutrophils (1.2-6.7) 10^3/uL 10.21 H Absolute Lymphocytes (1.2-3.4) 10^3/uL 0.45 L Absolute Monocytes (0.1-0.8) 10^3/uL 0.81 H Absolute Eosinophils (0.0-0.7) 10^3/uL 0.00 Absolute Basophils (0.0-0.2) 10^3/uL 0.05 RBC Morphology See Below Polychromasia Present Hypochromasia 1+ Basophilic Stippling Present PT (9.3-11.0) sec 9.7 INR (0.9-1.1) 1.0 APTT (21.0-27.5) sec 23.0 D-Dimer (<500) ng/mlFEU ABG Sample Site ABG pH (7.35-7.45) ABG pCO2 (35-45) mmHg ABG pO2 (80-105) mmHg ABG HCO3 (22-26) mmol/L ABG Total CO2 (23-27) mmol/L ABG O2 Saturation (95-98) % ABG Base Excess (-2-3) mmol/L VBG pH (7.31-7.41) VBG pCO2 (41-51) mmHg VBG pO2 mmHg VBG HCO3 (23-28) mmol/L VBG Total CO2 (24-29) mmol/L VBG O2 Saturation % VBG Base Excess (-2-3) mmol/L VBG Lactate (0.6-1.4) mmol/L Oxygen Liter Flow FiO2 % Sodium (136-145) mmol/L 135 L Potassium (3.5-5.1) mmol/L 5.9 H Chloride (98-107) mmol/L 93 L Carbon Dioxide (21.0-32.0) mmol/L > 45.0 H Anion Gap (3-11) mmol/L -3.81444 L BUN (7-18) mg/dL 39 H Creatinine (0.55-1.02) mg/dL 1.4 H Est GFR (CKD-EPI 2020) (mL/min/1.73m2) 42.27 Glucose (74-106) mg/dL 153 H Hemoglobin A1c (<5.7) % Calcium (8.5-10.1) mg/dL 9.3 Phosphorus (2.6-4.7) mg/dL Magnesium (1.8-2.4) mg/dL Iron (50-170) ug/dL TIBC (250-450) ug/dL Ferritin (8-252) ng/mL Total Bilirubin (0.2-1.0) mg/dL 0.3 AST (15-37) U/L 26 ALT (14-59) U/L 23 Alkaline Phosphatase (46-116) U/L 69 Troponin I (<or=60) ng/L 62 H* C-Reactive Protein (0.0-0.3) mg/dL NT-Pro-B Natriuret Pep (<300) pg/mL 80241 H Total Protein (6.4-8.2) g/dL 8.0 Albumin (3.4-5.0) g/dL 3.6 Vitamin B12 (193-986) pg/mL Folate (8.6-20.0) ng/mL Procalcitonin ng/mL TSH (0.36-3.74) uIU/mL 1.20 Urine Color (Yellow) Urine Clarity (Clear) Urine pH (5-8) Ur Specific [place] (1.005-1.025) Urine Protein (Negative) mg/dL Urine Ketones (Negative) mg/dL Urine Blood (Negative) Urine Nitrite (Negative) Urine Bilirubin (Negative) Urine Urobilinogen (Up TO 0.2) EU/dL Ur Leukocyte Esterase (Negative) Urine RBC (0-2) HPF Urine WBC (0-5) HPF Ur Epithelial Cells (Negative) HPF Urine Crystals (Negative) HPF Urine Bacteria (Negative) HPF Urine Casts (Negative) LPF Urine Mucus (Negative) Urine Other (Negative) Ur Culture Indicated? Urine Glucose (Negative) mg/dL Vancomycin Trough (10.0-20.0) ug/mL Urine Opiates Screen (Negative) Urine Methadone Screen (Negative) Ur Barbiturates Screen (Negative) Ur Tricyclics Screen (Negative) Ur Amphetamines Screen (Negative) U Benzodiazepines Scrn (Negative) Urine Cocaine Screen (Negative) Ur THC Screen (Negative) Ethyl Alcohol (<10) mg/dL < 3.0 COVID-19 Source SARS-CoV-2 (PCR) (Negative) Influenza Type A (PCR) (Negative) Influenza Type B (PCR) (Negative) Urine Legionella Ag (Negative) RSV (PCR) (Negative) Ur Strep pneumoniae Ag (Negative) Add-On Test Request Range/Units 05/10/22 05/10/22 05/10/22 06:52 06:52 08:45 WBC (4.4-10.8) 10^3/uL RBC (3.93-5.22) 10^6/uL Hgb (11.2-15.7) g/dL Hct (36.0-46.0) % MCV (80-95) fL MCH (27.0-33.0) pg MCHC (32.0-36.0) % RDW (11.7-14.6) % Plt Count (130-400) 10^3/uL MPV (8.0-11.0) fL Immature Gran % Neutrophils % Lymphocytes % Monocytes % Eosinophils % Basophils % Nucleated RBC % (0.0-0.3) % Absolute Neutrophils (1.2-6.7) 10^3/uL Absolute Lymphocytes (1.2-3.4) 10^3/uL Absolute Monocytes (0.1-0.8) 10^3/uL Absolute Eosinophils (0.0-0.7) 10^3/uL Absolute Basophils (0.0-0.2) 10^3/uL RBC Morphology Polychromasia Hypochromasia Basophilic Stippling PT (9.3-11.0) sec INR (0.9-1.1) APTT (21.0-27.5) sec D-Dimer (<500) ng/mlFEU 874 H ABG Sample Site Right Brachial ABG pH (7.35-7.45) 7.38 ABG pCO2 (35-45) mmHg 68 H* ABG pO2 (80-105) mmHg 71 L ABG HCO3 (22-26) mmol/L 41 H ABG Total CO2 (23-27) mmol/L 38 H ABG O2 Saturation (95-98) % 95 ABG Base Excess (-2-3) mmol/L > 15 H VBG pH (7.31-7.41) 7.22 L VBG pCO2 (41-51) mmHg > 100 H* VBG pO2 mmHg 40 VBG HCO3 (23-28) mmol/L VBG Total CO2 (24-29) mmol/L VBG O2 Saturation % 63 VBG Base Excess (-2-3) mmol/L VBG Lactate (0.6-1.4) mmol/L Oxygen Liter Flow FiO2 % 50 Sodium (136-145) mmol/L Potassium (3.5-5.1) mmol/L Chloride (98-107) mmol/L Carbon Dioxide (21.0-32.0) mmol/L Anion Gap (3-11) mmol/L BUN (7-18) mg/dL Creatinine (0.55-1.02) mg/dL Est GFR (CKD-EPI 2020) (mL/min/1.73m2) Glucose (74-106) mg/dL Hemoglobin A1c (<5.7) % Calcium (8.5-10.1) mg/dL Phosphorus (2.6-4.7) mg/dL Magnesium (1.8-2.4) mg/dL Iron (50-170) ug/dL TIBC (250-450) ug/dL Ferritin (8-252) ng/mL Total Bilirubin (0.2-1.0) mg/dL AST (15-37) U/L ALT (14-59) U/L Alkaline Phosphatase (46-116) U/L Troponin I (<or=60) ng/L C-Reactive Protein (0.0-0.3) mg/dL NT-Pro-B Natriuret Pep (<300) pg/mL Total Protein (6.4-8.2) g/dL Albumin (3.4-5.0) g/dL Vitamin B12 (193-986) pg/mL Folate (8.6-20.0) ng/mL Procalcitonin ng/mL TSH (0.36-3.74) uIU/mL Urine Color (Yellow) Urine Clarity (Clear) Urine pH (5-8) Ur Specific [place] (1.005-1.025) Urine Protein (Negative) mg/dL Urine Ketones (Negative) mg/dL Urine Blood (Negative) Urine Nitrite (Negative) Urine Bilirubin (Negative) Urine Urobilinogen (Up TO 0.2) EU/dL Ur Leukocyte Esterase (Negative) Urine RBC (0-2) HPF Urine WBC (0-5) HPF Ur Epithelial Cells (Negative) HPF Urine Crystals (Negative) HPF Urine Bacteria (Negative) HPF Urine Casts (Negative) LPF Urine Mucus (Negative) Urine Other (Negative) Ur Culture Indicated? Urine Glucose (Negative) mg/dL Vancomycin Trough (10.0-20.0) ug/mL Urine Opiates Screen (Negative) Urine Methadone Screen (Negative) Ur Barbiturates Screen (Negative) Ur Tricyclics Screen (Negative) Ur Amphetamines Screen (Negative) U Benzodiazepines Scrn (Negative) Urine Cocaine Screen (Negative) Ur THC Screen (Negative) Ethyl Alcohol (<10) mg/dL COVID-19 Source SARS-CoV-2 (PCR) (Negative) Influenza Type A (PCR) (Negative) Influenza Type B (PCR) (Negative) Urine Legionella Ag (Negative) RSV (PCR) (Negative) Ur Strep pneumoniae Ag (Negative) Add-On Test Request Range/Units 05/10/22 05/10/22 05/10/22 09:40 09:51 09:51 WBC (4.4-10.8) 10^3/uL RBC (3.93-5.22) 10^6/uL Hgb (11.2-15.7) g/dL Hct (36.0-46.0) % MCV (80-95) fL MCH (27.0-33.0) pg MCHC (32.0-36.0) % RDW (11.7-14.6) % Plt Count (130-400) 10^3/uL MPV (8.0-11.0) fL Immature Gran % Neutrophils % Lymphocytes % Monocytes % Eosinophils % Basophils % Nucleated RBC % (0.0-0.3) % Absolute Neutrophils (1.2-6.7) 10^3/uL Absolute Lymphocytes (1.2-3.4) 10^3/uL Absolute Monocytes (0.1-0.8) 10^3/uL Absolute Eosinophils (0.0-0.7) 10^3/uL Absolute Basophils (0.0-0.2) 10^3/uL RBC Morphology Polychromasia Hypochromasia Basophilic Stippling PT (9.3-11.0) sec INR (0.9-1.1) APTT (21.0-27.5) sec D-Dimer (<500) ng/mlFEU ABG Sample Site ABG pH (7.35-7.45) ABG pCO2 (35-45) mmHg ABG pO2 (80-105) mmHg ABG HCO3 (22-26) mmol/L ABG Total CO2 (23-27) mmol/L ABG O2 Saturation (95-98) % ABG Base Excess (-2-3) mmol/L VBG pH (7.31-7.41) VBG pCO2 (41-51) mmHg VBG pO2 mmHg VBG HCO3 (23-28) mmol/L VBG Total CO2 (24-29) mmol/L VBG O2 Saturation % VBG Base Excess (-2-3) mmol/L VBG Lactate (0.6-1.4) mmol/L Oxygen Liter Flow FiO2 % Sodium (136-145) mmol/L Potassium (3.5-5.1) mmol/L Chloride (98-107) mmol/L Carbon Dioxide (21.0-32.0) mmol/L Anion Gap (3-11) mmol/L BUN (7-18) mg/dL Creatinine (0.55-1.02) mg/dL Est GFR (CKD-EPI 2020) (mL/min/1.73m2) Glucose (74-106) mg/dL Hemoglobin A1c (<5.7) % Calcium (8.5-10.1) mg/dL Phosphorus (2.6-4.7) mg/dL Magnesium (1.8-2.4) mg/dL Iron (50-170) ug/dL TIBC (250-450) ug/dL Ferritin (8-252) ng/mL Total Bilirubin (0.2-1.0) mg/dL AST (15-37) U/L ALT (14-59) U/L Alkaline Phosphatase (46-116) U/L Troponin I (<or=60) ng/L 112 H* C-Reactive Protein (0.0-0.3) mg/dL NT-Pro-B Natriuret Pep (<300) pg/mL Total Protein (6.4-8.2) g/dL Albumin (3.4-5.0) g/dL Vitamin B12 (193-986) pg/mL Folate (8.6-20.0) ng/mL Procalcitonin ng/mL TSH (0.36-3.74) uIU/mL Urine Color (Yellow) Urine Clarity (Clear) Urine pH (5-8) Ur Specific [place] (1.005-1.025) Urine Protein (Negative) mg/dL Urine Ketones (Negative) mg/dL Urine Blood (Negative) Urine Nitrite (Negative) Urine Bilirubin (Negative) Urine Urobilinogen (Up TO 0.2) EU/dL Ur Leukocyte Esterase (Negative) Urine RBC (0-2) HPF Urine WBC (0-5) HPF Ur Epithelial Cells (Negative) HPF Urine Crystals (Negative) HPF Urine Bacteria (Negative) HPF Urine Casts (Negative) LPF Urine Mucus (Negative) Urine Other (Negative) Ur Culture Indicated? Urine Glucose (Negative) mg/dL Vancomycin Trough (10.0-20.0) ug/mL Urine Opiates Screen (Negative) Negative Urine Methadone Screen (Negative) Negative Ur Barbiturates Screen (Negative) Negative Ur Tricyclics Screen (Negative) Negative Ur Amphetamines Screen (Negative) Negative U Benzodiazepines Scrn (Negative) Negative Urine Cocaine Screen (Negative) Negative Ur THC Screen (Negative) Negative Ethyl Alcohol (<10) mg/dL COVID-19 Source Nasopharynx SARS-CoV-2 (PCR) (Negative) Negative Influenza Type A (PCR) (Negative) Negative Influenza Type B (PCR) (Negative) Negative Urine Legionella Ag (Negative) RSV (PCR) (Negative) Negative Ur Strep pneumoniae Ag (Negative) Add-On Test Request Range/Units 05/10/22 05/10/22 05/10/22 09:51 12:00 12:20 WBC (4.4-10.8) 10^3/uL RBC (3.93-5.22) 10^6/uL Hgb (11.2-15.7) g/dL Hct (36.0-46.0) % MCV (80-95) fL MCH (27.0-33.0) pg MCHC (32.0-36.0) % RDW (11.7-14.6) % Plt Count (130-400) 10^3/uL MPV (8.0-11.0) fL Immature Gran % Neutrophils % Lymphocytes % Monocytes % Eosinophils % Basophils % Nucleated RBC % (0.0-0.3) % Absolute Neutrophils (1.2-6.7) 10^3/uL Absolute Lymphocytes (1.2-3.4) 10^3/uL Absolute Monocytes (0.1-0.8) 10^3/uL Absolute Eosinophils (0.0-0.7) 10^3/uL Absolute Basophils (0.0-0.2) 10^3/uL RBC Morphology Polychromasia Hypochromasia Basophilic Stippling PT (9.3-11.0) sec INR (0.9-1.1) APTT (21.0-27.5) sec D-Dimer (<500) ng/mlFEU ABG Sample Site ABG pH (7.35-7.45) ABG pCO2 (35-45) mmHg ABG pO2 (80-105) mmHg ABG HCO3 (22-26) mmol/L ABG Total CO2 (23-27) mmol/L ABG O2 Saturation (95-98) % ABG Base Excess (-2-3) mmol/L VBG pH (7.31-7.41) VBG pCO2 (41-51) mmHg VBG pO2 mmHg VBG HCO3 (23-28) mmol/L VBG Total CO2 (24-29) mmol/L VBG O2 Saturation % VBG Base Excess (-2-3) mmol/L VBG Lactate (0.6-1.4) mmol/L Oxygen Liter Flow FiO2 % Sodium (136-145) mmol/L Potassium (3.5-5.1) mmol/L Chloride (98-107) mmol/L Carbon Dioxide (21.0-32.0) mmol/L Anion Gap (3-11) mmol/L BUN (7-18) mg/dL Creatinine (0.55-1.02) mg/dL Est GFR (CKD-EPI 2020) (mL/min/1.73m2) Glucose (74-106) mg/dL Hemoglobin A1c (<5.7) % Calcium (8.5-10.1) mg/dL Phosphorus (2.6-4.7) mg/dL Magnesium (1.8-2.4) mg/dL Iron (50-170) ug/dL TIBC (250-450) ug/dL Ferritin (8-252) ng/mL Total Bilirubin (0.2-1.0) mg/dL AST (15-37) U/L ALT (14-59) U/L Alkaline Phosphatase (46-116) U/L Troponin I (<or=60) ng/L Cancelled 119 H* C-Reactive Protein (0.0-0.3) mg/dL NT-Pro-B Natriuret Pep (<300) pg/mL Total Protein (6.4-8.2) g/dL Albumin (3.4-5.0) g/dL Vitamin B12 (193-986) pg/mL Folate (8.6-20.0) ng/mL Procalcitonin ng/mL TSH (0.36-3.74) uIU/mL Urine Color (Yellow) Yellow Urine Clarity (Clear) Clear Urine pH (5-8) 7.5 Ur Specific [place] (1.005-1.025) 1.020 Urine Protein (Negative) mg/dL 30 H Urine Ketones (Negative) mg/dL Negative Urine Blood (Negative) Trace-intact H Urine Nitrite (Negative) Negative Urine Bilirubin (Negative) Negative Urine Urobilinogen (Up TO 0.2) EU/dL 0.2 Ur Leukocyte Esterase (Negative) Negative Urine RBC (0-2) HPF 3-5 H Urine WBC (0-5) HPF Negative Ur Epithelial Cells (Negative) HPF Few Urine Crystals (Negative) HPF Negative Urine Bacteria (Negative) HPF Few Urine Casts (Negative) LPF Negative Urine Mucus (Negative) Trace Urine Other (Negative) Rare Renal Ur Culture Indicated? No Urine Glucose (Negative) mg/dL 250 H Vancomycin Trough (10.0-20.0) ug/mL Urine Opiates Screen (Negative) Urine Methadone Screen (Negative) Ur Barbiturates Screen (Negative) Ur Tricyclics Screen (Negative) Ur Amphetamines Screen (Negative) U Benzodiazepines Scrn (Negative) Urine Cocaine Screen (Negative) Ur THC Screen (Negative) Ethyl Alcohol (<10) mg/dL COVID-19 Source SARS-CoV-2 (PCR) (Negative) Influenza Type A (PCR) (Negative) Influenza Type B (PCR) (Negative) Urine Legionella Ag (Negative) RSV (PCR) (Negative) Ur Strep pneumoniae Ag (Negative) Add-On Test Request Range/Units 05/10/22 05/10/22 05/10/22 12:20 12:20 18:30 WBC (4.4-10.8) 10^3/uL RBC (3.93-5.22) 10^6/uL Hgb (11.2-15.7) g/dL Hct (36.0-46.0) % MCV (80-95) fL MCH (27.0-33.0) pg MCHC (32.0-36.0) % RDW (11.7-14.6) % Plt Count (130-400) 10^3/uL MPV (8.0-11.0) fL Immature Gran % Neutrophils % Lymphocytes % Monocytes % Eosinophils % Basophils % Nucleated RBC % (0.0-0.3) % Absolute Neutrophils (1.2-6.7) 10^3/uL Absolute Lymphocytes (1.2-3.4) 10^3/uL Absolute Monocytes (0.1-0.8) 10^3/uL Absolute Eosinophils (0.0-0.7) 10^3/uL Absolute Basophils (0.0-0.2) 10^3/uL RBC Morphology Polychromasia Hypochromasia Basophilic Stippling PT (9.3-11.0) sec INR (0.9-1.1) APTT (21.0-27.5) sec D-Dimer (<500) ng/mlFEU ABG Sample Site ABG pH (7.35-7.45) ABG pCO2 (35-45) mmHg ABG pO2 (80-105) mmHg ABG HCO3 (22-26) mmol/L ABG Total CO2 (23-27) mmol/L ABG O2 Saturation (95-98) % ABG Base Excess (-2-3) mmol/L VBG pH (7.31-7.41) 7.41 VBG pCO2 (41-51) mmHg 68 H* VBG pO2 mmHg 35 VBG HCO3 (23-28) mmol/L 43 H VBG Total CO2 (24-29) mmol/L 40 H VBG O2 Saturation % 67 VBG Base Excess (-2-3) mmol/L > 15 H VBG Lactate (0.6-1.4) mmol/L Oxygen Liter Flow FiO2 % Sodium (136-145) mmol/L Potassium (3.5-5.1) mmol/L Chloride (98-107) mmol/L Carbon Dioxide (21.0-32.0) mmol/L Anion Gap (3-11) mmol/L BUN (7-18) mg/dL Creatinine (0.55-1.02) mg/dL Est GFR (CKD-EPI 2020) (mL/min/1.73m2) Glucose (74-106) mg/dL Hemoglobin A1c (<5.7) % Calcium (8.5-10.1) mg/dL Phosphorus (2.6-4.7) mg/dL Magnesium (1.8-2.4) mg/dL Iron (50-170) ug/dL TIBC (250-450) ug/dL Ferritin (8-252) ng/mL Total Bilirubin (0.2-1.0) mg/dL AST (15-37) U/L ALT (14-59) U/L Alkaline Phosphatase (46-116) U/L Troponin I (<or=60) ng/L 79 H* C-Reactive Protein (0.0-0.3) mg/dL NT-Pro-B Natriuret Pep (<300) pg/mL Total Protein (6.4-8.2) g/dL Albumin (3.4-5.0) g/dL Vitamin B12 (193-986) pg/mL Folate (8.6-20.0) ng/mL Procalcitonin ng/mL < 0.1 TSH (0.36-3.74) uIU/mL Urine Color (Yellow) Urine Clarity (Clear) Urine pH (5-8) Ur Specific [place] (1.005-1.025) Urine Protein (Negative) mg/dL Urine Ketones (Negative) mg/dL Urine Blood (Negative) Urine Nitrite (Negative) Urine Bilirubin (Negative) Urine Urobilinogen (Up TO 0.2) EU/dL Ur Leukocyte Esterase (Negative) Urine RBC (0-2) HPF Urine WBC (0-5) HPF Ur Epithelial Cells (Negative) HPF Urine Crystals (Negative) HPF Urine Bacteria (Negative) HPF Urine Casts (Negative) LPF Urine Mucus (Negative) Urine Other (Negative) Ur Culture Indicated? Urine Glucose (Negative) mg/dL Vancomycin Trough (10.0-20.0) ug/mL Urine Opiates Screen (Negative) Urine Methadone Screen (Negative) Ur Barbiturates Screen (Negative) Ur Tricyclics Screen (Negative) Ur Amphetamines Screen (Negative) U Benzodiazepines Scrn (Negative) Urine Cocaine Screen (Negative) Ur THC Screen (Negative) Ethyl Alcohol (<10) mg/dL COVID-19 Source SARS-CoV-2 (PCR) (Negative) Influenza Type A (PCR) (Negative) Influenza Type B (PCR) (Negative) Urine Legionella Ag (Negative) RSV (PCR) (Negative) Ur Strep pneumoniae Ag (Negative) Add-On Test Request Range/Units 05/11/22 05/11/22 05/11/22 05:10 05:10 05:10 WBC (4.4-10.8) 10^3/uL 12.06 H RBC (3.93-5.22) 10^6/uL 3.57 L Hgb (11.2-15.7) g/dL 9.1 L Hct (36.0-46.0) % 32.1 L MCV (80-95) fL 90 MCH (27.0-33.0) pg 25.5 L MCHC (32.0-36.0) % 28.3 L RDW (11.7-14.6) % 18.0 H Plt Count (130-400) 10^3/uL 233 MPV (8.0-11.0) fL 10.4 Immature Gran % 0.6 Neutrophils % 86.6 Lymphocytes % 2.7 Monocytes % 10.0 Eosinophils % 0.0 Basophils % 0.1 Nucleated RBC % (0.0-0.3) % 0.2 Absolute Neutrophils (1.2-6.7) 10^3/uL 10.44 H Absolute Lymphocytes (1.2-3.4) 10^3/uL 0.33 L Absolute Monocytes (0.1-0.8) 10^3/uL 1.21 H Absolute Eosinophils (0.0-0.7) 10^3/uL 0.00 Absolute Basophils (0.0-0.2) 10^3/uL 0.01 RBC Morphology Polychromasia Hypochromasia Basophilic Stippling PT (9.3-11.0) sec INR (0.9-1.1) APTT (21.0-27.5) sec D-Dimer (<500) ng/mlFEU ABG Sample Site ABG pH (7.35-7.45) ABG pCO2 (35-45) mmHg ABG pO2 (80-105) mmHg ABG HCO3 (22-26) mmol/L ABG Total CO2 (23-27) mmol/L ABG O2 Saturation (95-98) % ABG Base Excess (-2-3) mmol/L VBG pH (7.31-7.41) VBG pCO2 (41-51) mmHg VBG pO2 mmHg VBG HCO3 (23-28) mmol/L VBG Total CO2 (24-29) mmol/L VBG O2 Saturation % VBG Base Excess (-2-3) mmol/L VBG Lactate (0.6-1.4) mmol/L Oxygen Liter Flow FiO2 % Sodium (136-145) mmol/L 138 Potassium (3.5-5.1) mmol/L 5.8 H Chloride (98-107) mmol/L 99 Carbon Dioxide (21.0-32.0) mmol/L 42.4 H Anion Gap (3-11) mmol/L -3.4 L BUN (7-18) mg/dL 34 H Creatinine (0.55-1.02) mg/dL 1.3 H Est GFR (CKD-EPI 2020) (mL/min/1.73m2) 46.21 Glucose (74-106) mg/dL 102 Hemoglobin A1c (<5.7) % Calcium (8.5-10.1) mg/dL 8.5 Phosphorus (2.6-4.7) mg/dL 3.6 Cancelled Magnesium (1.8-2.4) mg/dL 2.3 Iron (50-170) ug/dL TIBC (250-450) ug/dL Ferritin (8-252) ng/mL Total Bilirubin (0.2-1.0) mg/dL 0.3 AST (15-37) U/L 15 ALT (14-59) U/L 15 Alkaline Phosphatase (46-116) U/L 47 Troponin I (<or=60) ng/L C-Reactive Protein (0.0-0.3) mg/dL NT-Pro-B Natriuret Pep (<300) pg/mL Total Protein (6.4-8.2) g/dL 6.0 L Albumin (3.4-5.0) g/dL 2.7 L Vitamin B12 (193-986) pg/mL Folate (8.6-20.0) ng/mL Procalcitonin ng/mL TSH (0.36-3.74) uIU/mL Urine Color (Yellow) Urine Clarity (Clear) Urine pH (5-8) Ur Specific [place] (1.005-1.025) Urine Protein (Negative) mg/dL Urine Ketones (Negative) mg/dL Urine Blood (Negative) Urine Nitrite (Negative) Urine Bilirubin (Negative) Urine Urobilinogen (Up TO 0.2) EU/dL Ur Leukocyte Esterase (Negative) Urine RBC (0-2) HPF Urine WBC (0-5) HPF Ur Epithelial Cells (Negative) HPF Urine Crystals (Negative) HPF Urine Bacteria (Negative) HPF Urine Casts (Negative) LPF Urine Mucus (Negative) Urine Other (Negative) Ur Culture Indicated? Urine Glucose (Negative) mg/dL Vancomycin Trough (10.0-20.0) ug/mL Urine Opiates Screen (Negative) Urine Methadone Screen (Negative) Ur Barbiturates Screen (Negative) Ur Tricyclics Screen (Negative) Ur Amphetamines Screen (Negative) U Benzodiazepines Scrn (Negative) Urine Cocaine Screen (Negative) Ur THC Screen (Negative) Ethyl Alcohol (<10) mg/dL COVID-19 Source SARS-CoV-2 (PCR) (Negative) Influenza Type A (PCR) (Negative) Influenza Type B (PCR) (Negative) Urine Legionella Ag (Negative) RSV (PCR) (Negative) Ur Strep pneumoniae Ag (Negative) Add-On Test Request Range/Units 05/11/22 05/11/22 05/11/22 09:25 09:50 09:50 WBC (4.4-10.8) 10^3/uL RBC (3.93-5.22) 10^6/uL Hgb (11.2-15.7) g/dL Hct (36.0-46.0) % MCV (80-95) fL MCH (27.0-33.0) pg MCHC (32.0-36.0) % RDW (11.7-14.6) % Plt Count (130-400) 10^3/uL MPV (8.0-11.0) fL Immature Gran % Neutrophils % Lymphocytes % Monocytes % Eosinophils % Basophils % Nucleated RBC % (0.0-0.3) % Absolute Neutrophils (1.2-6.7) 10^3/uL Absolute Lymphocytes (1.2-3.4) 10^3/uL Absolute Monocytes (0.1-0.8) 10^3/uL Absolute Eosinophils (0.0-0.7) 10^3/uL Absolute Basophils (0.0-0.2) 10^3/uL RBC Morphology Polychromasia Hypochromasia Basophilic Stippling PT (9.3-11.0) sec INR (0.9-1.1) APTT (21.0-27.5) sec D-Dimer (<500) ng/mlFEU ABG Sample Site Right Radial ABG pH (7.35-7.45) 7.36 ABG pCO2 (35-45) mmHg 76 H* ABG pO2 (80-105) mmHg 74 L ABG HCO3 (22-26) mmol/L 43 H ABG Total CO2 (23-27) mmol/L 41 H ABG O2 Saturation (95-98) % 94 L ABG Base Excess (-2-3) mmol/L > 15 H VBG pH (7.31-7.41) VBG pCO2 (41-51) mmHg VBG pO2 mmHg VBG HCO3 (23-28) mmol/L VBG Total CO2 (24-29) mmol/L VBG O2 Saturation % VBG Base Excess (-2-3) mmol/L VBG Lactate (0.6-1.4) mmol/L Oxygen Liter Flow FiO2 % 50 Sodium (136-145) mmol/L Potassium (3.5-5.1) mmol/L 5.5 H Chloride (98-107) mmol/L Carbon Dioxide (21.0-32.0) mmol/L Anion Gap (3-11) mmol/L BUN (7-18) mg/dL Creatinine (0.55-1.02) mg/dL Est GFR (CKD-EPI 2020) (mL/min/1.73m2) Glucose (74-106) mg/dL Hemoglobin A1c (<5.7) % Calcium (8.5-10.1) mg/dL Phosphorus (2.6-4.7) mg/dL Magnesium (1.8-2.4) mg/dL Iron (50-170) ug/dL TIBC (250-450) ug/dL Ferritin (8-252) ng/mL Total Bilirubin (0.2-1.0) mg/dL AST (15-37) U/L ALT (14-59) U/L Alkaline Phosphatase (46-116) U/L Troponin I (<or=60) ng/L < 50 C-Reactive Protein (0.0-0.3) mg/dL NT-Pro-B Natriuret Pep (<300) pg/mL Total Protein (6.4-8.2) g/dL Albumin (3.4-5.0) g/dL Vitamin B12 (193-986) pg/mL Folate (8.6-20.0) ng/mL Procalcitonin ng/mL TSH (0.36-3.74) uIU/mL Urine Color (Yellow) Urine Clarity (Clear) Urine pH (5-8) Ur Specific [place] (1.005-1.025) Urine Protein (Negative) mg/dL Urine Ketones (Negative) mg/dL Urine Blood (Negative) Urine Nitrite (Negative) Urine Bilirubin (Negative) Urine Urobilinogen (Up TO 0.2) EU/dL Ur Leukocyte Esterase (Negative) Urine RBC (0-2) HPF Urine WBC (0-5) HPF Ur Epithelial Cells (Negative) HPF Urine Crystals (Negative) HPF Urine Bacteria (Negative) HPF Urine Casts (Negative) LPF Urine Mucus (Negative) Urine Other (Negative) Ur Culture Indicated? Urine Glucose (Negative) mg/dL Vancomycin Trough (10.0-20.0) ug/mL Urine Opiates Screen (Negative) Urine Methadone Screen (Negative) Ur Barbiturates Screen (Negative) Ur Tricyclics Screen (Negative) Ur Amphetamines Screen (Negative) U Benzodiazepines Scrn (Negative) Urine Cocaine Screen (Negative) Ur THC Screen (Negative) Ethyl Alcohol (<10) mg/dL COVID-19 Source SARS-CoV-2 (PCR) (Negative) Influenza Type A (PCR) (Negative) Influenza Type B (PCR) (Negative) Urine Legionella Ag (Negative) RSV (PCR) (Negative) Ur Strep pneumoniae Ag (Negative) Add-On Test Request Range/Units 05/11/22 05/11/22 05/11/22 11:29 11:29 13:56 WBC (4.4-10.8) 10^3/uL RBC (3.93-5.22) 10^6/uL Hgb (11.2-15.7) g/dL Hct (36.0-46.0) % MCV (80-95) fL MCH (27.0-33.0) pg MCHC (32.0-36.0) % RDW (11.7-14.6) % Plt Count (130-400) 10^3/uL MPV (8.0-11.0) fL Immature Gran % Neutrophils % Lymphocytes % Monocytes % Eosinophils % Basophils % Nucleated RBC % (0.0-0.3) % Absolute Neutrophils (1.2-6.7) 10^3/uL Absolute Lymphocytes (1.2-3.4) 10^3/uL Absolute Monocytes (0.1-0.8) 10^3/uL Absolute Eosinophils (0.0-0.7) 10^3/uL Absolute Basophils (0.0-0.2) 10^3/uL RBC Morphology Polychromasia Hypochromasia Basophilic Stippling PT (9.3-11.0) sec INR (0.9-1.1) APTT (21.0-27.5) sec D-Dimer (<500) ng/mlFEU ABG Sample Site ABG pH (7.35-7.45) ABG pCO2 (35-45) mmHg ABG pO2 (80-105) mmHg ABG HCO3 (22-26) mmol/L ABG Total CO2 (23-27) mmol/L ABG O2 Saturation (95-98) % ABG Base Excess (-2-3) mmol/L VBG pH (7.31-7.41) VBG pCO2 (41-51) mmHg VBG pO2 mmHg VBG HCO3 (23-28) mmol/L VBG Total CO2 (24-29) mmol/L VBG O2 Saturation % VBG Base Excess (-2-3) mmol/L VBG Lactate (0.6-1.4) mmol/L Oxygen Liter Flow FiO2 % Sodium (136-145) mmol/L Potassium (3.5-5.1) mmol/L Chloride (98-107) mmol/L Carbon Dioxide (21.0-32.0) mmol/L Anion Gap (3-11) mmol/L BUN (7-18) mg/dL Creatinine (0.55-1.02) mg/dL Est GFR (CKD-EPI 2020) (mL/min/1.73m2) Glucose (74-106) mg/dL Hemoglobin A1c (<5.7) % Calcium (8.5-10.1) mg/dL Phosphorus (2.6-4.7) mg/dL Magnesium (1.8-2.4) mg/dL Iron (50-170) ug/dL TIBC (250-450) ug/dL Ferritin (8-252) ng/mL Total Bilirubin (0.2-1.0) mg/dL AST (15-37) U/L ALT (14-59) U/L Alkaline Phosphatase (46-116) U/L Troponin I (<or=60) ng/L < 50 C-Reactive Protein (0.0-0.3) mg/dL NT-Pro-B Natriuret Pep (<300) pg/mL Total Protein (6.4-8.2) g/dL Albumin (3.4-5.0) g/dL Vitamin B12 (193-986) pg/mL Folate (8.6-20.0) ng/mL Procalcitonin ng/mL TSH (0.36-3.74) uIU/mL Urine Color (Yellow) Urine Clarity (Clear) Urine pH (5-8) Ur Specific [place] (1.005-1.025) Urine Protein (Negative) mg/dL Urine Ketones (Negative) mg/dL Urine Blood (Negative) Urine Nitrite (Negative) Urine Bilirubin (Negative) Urine Urobilinogen (Up TO 0.2) EU/dL Ur Leukocyte Esterase (Negative) Urine RBC (0-2) HPF Urine WBC (0-5) HPF Ur Epithelial Cells (Negative) HPF Urine Crystals (Negative) HPF Urine Bacteria (Negative) HPF Urine Casts (Negative) LPF Urine Mucus (Negative) Urine Other (Negative) Ur Culture Indicated? Urine Glucose (Negative) mg/dL Vancomycin Trough (10.0-20.0) ug/mL Urine Opiates Screen (Negative) Urine Methadone Screen (Negative) Ur Barbiturates Screen (Negative) Ur Tricyclics Screen (Negative) Ur Amphetamines Screen (Negative) U Benzodiazepines Scrn (Negative) Urine Cocaine Screen (Negative) Ur THC Screen (Negative) Ethyl Alcohol (<10) mg/dL COVID-19 Source SARS-CoV-2 (PCR) (Negative) Influenza Type A (PCR) (Negative) Influenza Type B (PCR) (Negative) Urine Legionella Ag (Negative) Negative RSV (PCR) (Negative) Ur Strep pneumoniae Ag (Negative) Negative Add-On Test Request Range/Units 05/12/22 05/12/22 05/12/22 02:15 02:15 02:15 WBC (4.4-10.8) 10^3/uL RBC (3.93-5.22) 10^6/uL Hgb (11.2-15.7) g/dL Hct (36.0-46.0) % MCV (80-95) fL MCH (27.0-33.0) pg MCHC (32.0-36.0) % RDW (11.7-14.6) % Plt Count (130-400) 10^3/uL MPV (8.0-11.0) fL Immature Gran % Neutrophils % Lymphocytes % Monocytes % Eosinophils % Basophils % Nucleated RBC % (0.0-0.3) % Absolute Neutrophils (1.2-6.7) 10^3/uL Absolute Lymphocytes (1.2-3.4) 10^3/uL Absolute Monocytes (0.1-0.8) 10^3/uL Absolute Eosinophils (0.0-0.7) 10^3/uL Absolute Basophils (0.0-0.2) 10^3/uL RBC Morphology Polychromasia Hypochromasia Basophilic Stippling PT (9.3-11.0) sec INR (0.9-1.1) APTT (21.0-27.5) sec D-Dimer (<500) ng/mlFEU ABG Sample Site ABG pH (7.35-7.45) ABG pCO2 (35-45) mmHg ABG pO2 (80-105) mmHg ABG HCO3 (22-26) mmol/L ABG Total CO2 (23-27) mmol/L ABG O2 Saturation (95-98) % ABG Base Excess (-2-3) mmol/L VBG pH (7.31-7.41) 7.36 VBG pCO2 (41-51) mmHg 74 H* VBG pO2 mmHg 39 VBG HCO3 (23-28) mmol/L 41 H VBG Total CO2 (24-29) mmol/L 39 H VBG O2 Saturation % 69 VBG Base Excess (-2-3) mmol/L > 15 H VBG Lactate (0.6-1.4) mmol/L 1.2 Oxygen Liter Flow FiO2 % Sodium (136-145) mmol/L 136 Potassium (3.5-5.1) mmol/L 5.5 H Chloride (98-107) mmol/L 97 L Carbon Dioxide (21.0-32.0) mmol/L 41.7 H Anion Gap (3-11) mmol/L -2.7 L BUN (7-18) mg/dL 31 H Creatinine (0.55-1.02) mg/dL 1.3 H Est GFR (CKD-EPI 2020) (mL/min/1.73m2) 46.21 Glucose (74-106) mg/dL 122 H Hemoglobin A1c (<5.7) % Calcium (8.5-10.1) mg/dL 8.3 L Phosphorus (2.6-4.7) mg/dL Magnesium (1.8-2.4) mg/dL Iron (50-170) ug/dL TIBC (250-450) ug/dL Ferritin (8-252) ng/mL Total Bilirubin (0.2-1.0) mg/dL AST (15-37) U/L ALT (14-59) U/L Alkaline Phosphatase (46-116) U/L Troponin I (<or=60) ng/L 54 C-Reactive Protein (0.0-0.3) mg/dL NT-Pro-B Natriuret Pep (<300) pg/mL Total Protein (6.4-8.2) g/dL Albumin (3.4-5.0) g/dL Vitamin B12 (193-986) pg/mL Folate (8.6-20.0) ng/mL Procalcitonin ng/mL TSH (0.36-3.74) uIU/mL Urine Color (Yellow) Urine Clarity (Clear) Urine pH (5-8) Ur Specific [place] (1.005-1.025) Urine Protein (Negative) mg/dL Urine Ketones (Negative) mg/dL Urine Blood (Negative) Urine Nitrite (Negative) Urine Bilirubin (Negative) Urine Urobilinogen (Up TO 0.2) EU/dL Ur Leukocyte Esterase (Negative) Urine RBC (0-2) HPF Urine WBC (0-5) HPF Ur Epithelial Cells (Negative) HPF Urine Crystals (Negative) HPF Urine Bacteria (Negative) HPF Urine Casts (Negative) LPF Urine Mucus (Negative) Urine Other (Negative) Ur Culture Indicated? Urine Glucose (Negative) mg/dL Vancomycin Trough (10.0-20.0) ug/mL Urine Opiates Screen (Negative) Urine Methadone Screen (Negative) Ur Barbiturates Screen (Negative) Ur Tricyclics Screen (Negative) Ur Amphetamines Screen (Negative) U Benzodiazepines Scrn (Negative) Urine Cocaine Screen (Negative) Ur THC Screen (Negative) Ethyl Alcohol (<10) mg/dL COVID-19 Source SARS-CoV-2 (PCR) (Negative) Influenza Type A (PCR) (Negative) Influenza Type B (PCR) (Negative) Urine Legionella Ag (Negative) RSV (PCR) (Negative) Ur Strep pneumoniae Ag (Negative) Add-On Test Request Range/Units 05/12/22 05/12/22 05/12/22 02:15 02:15 06:40 WBC (4.4-10.8) 10^3/uL 16.34 H RBC (3.93-5.22) 10^6/uL 3.80 L Hgb (11.2-15.7) g/dL 9.8 L Hct (36.0-46.0) % 34.3 L MCV (80-95) fL 90 MCH (27.0-33.0) pg 25.8 L MCHC (32.0-36.0) % 28.6 L RDW (11.7-14.6) % 18.4 H Plt Count (130-400) 10^3/uL 291 MPV (8.0-11.0) fL 9.5 Immature Gran % 2.0 Neutrophils % 83.7 Lymphocytes % 4.2 Monocytes % 10.0 Eosinophils % 0.0 Basophils % 0.1 Nucleated RBC % (0.0-0.3) % 0.2 Absolute Neutrophils (1.2-6.7) 10^3/uL 13.68 H Absolute Lymphocytes (1.2-3.4) 10^3/uL 0.69 L Absolute Monocytes (0.1-0.8) 10^3/uL 1.63 H Absolute Eosinophils (0.0-0.7) 10^3/uL 0.00 Absolute Basophils (0.0-0.2) 10^3/uL 0.02 RBC Morphology See Below Polychromasia Hypochromasia 1+ Basophilic Stippling PT (9.3-11.0) sec INR (0.9-1.1) APTT (21.0-27.5) sec D-Dimer (<500) ng/mlFEU ABG Sample Site ABG pH (7.35-7.45) ABG pCO2 (35-45) mmHg ABG pO2 (80-105) mmHg ABG HCO3 (22-26) mmol/L ABG Total CO2 (23-27) mmol/L ABG O2 Saturation (95-98) % ABG Base Excess (-2-3) mmol/L VBG pH (7.31-7.41) VBG pCO2 (41-51) mmHg VBG pO2 mmHg VBG HCO3 (23-28) mmol/L VBG Total CO2 (24-29) mmol/L VBG O2 Saturation % VBG Base Excess (-2-3) mmol/L VBG Lactate (0.6-1.4) mmol/L Oxygen Liter Flow FiO2 % Sodium (136-145) mmol/L 135 L Potassium (3.5-5.1) mmol/L 5.5 H Chloride (98-107) mmol/L 95 L Carbon Dioxide (21.0-32.0) mmol/L 38.2 H Anion Gap (3-11) mmol/L 1.8 L BUN (7-18) mg/dL 32 H Creatinine (0.55-1.02) mg/dL 1.3 H Est GFR (CKD-EPI 2020) (mL/min/1.73m2) 46.21 Glucose (74-106) mg/dL 158 H Hemoglobin A1c (<5.7) % Calcium (8.5-10.1) mg/dL 8.5 Phosphorus (2.6-4.7) mg/dL Magnesium (1.8-2.4) mg/dL 2.1 2.0 Iron (50-170) ug/dL TIBC (250-450) ug/dL Ferritin (8-252) ng/mL Total Bilirubin (0.2-1.0) mg/dL AST (15-37) U/L ALT (14-59) U/L Alkaline Phosphatase (46-116) U/L Troponin I (<or=60) ng/L C-Reactive Protein (0.0-0.3) mg/dL NT-Pro-B Natriuret Pep (<300) pg/mL Total Protein (6.4-8.2) g/dL Albumin (3.4-5.0) g/dL Vitamin B12 (193-986) pg/mL Folate (8.6-20.0) ng/mL Procalcitonin ng/mL TSH (0.36-3.74) uIU/mL Urine Color (Yellow) Urine Clarity (Clear) Urine pH (5-8) Ur Specific [place] (1.005-1.025) Urine Protein (Negative) mg/dL Urine Ketones (Negative) mg/dL Urine Blood (Negative) Urine Nitrite (Negative) Urine Bilirubin (Negative) Urine Urobilinogen (Up TO 0.2) EU/dL Ur Leukocyte Esterase (Negative) Urine RBC (0-2) HPF Urine WBC (0-5) HPF Ur Epithelial Cells (Negative) HPF Urine Crystals (Negative) HPF Urine Bacteria (Negative) HPF Urine Casts (Negative) LPF Urine Mucus (Negative) Urine Other (Negative) Ur Culture Indicated? Urine Glucose (Negative) mg/dL Vancomycin Trough (10.0-20.0) ug/mL Urine Opiates Screen (Negative) Urine Methadone Screen (Negative) Ur Barbiturates Screen (Negative) Ur Tricyclics Screen (Negative) Ur Amphetamines Screen (Negative) U Benzodiazepines Scrn (Negative) Urine Cocaine Screen (Negative) Ur THC Screen (Negative) Ethyl Alcohol (<10) mg/dL COVID-19 Source SARS-CoV-2 (PCR) (Negative) Influenza Type A (PCR) (Negative) Influenza Type B (PCR) (Negative) Urine Legionella Ag (Negative) RSV (PCR) (Negative) Ur Strep pneumoniae Ag (Negative) Add-On Test Request Range/Units 05/12/22 05/12/22 05/13/22 06:40 17:12 00:45 WBC (4.4-10.8) 10^3/uL 16.13 H RBC (3.93-5.22) 10^6/uL 4.27 Hgb (11.2-15.7) g/dL 10.8 L Hct (36.0-46.0) % 38.0 MCV (80-95) fL 89 MCH (27.0-33.0) pg 25.3 L MCHC (32.0-36.0) % 28.4 L RDW (11.7-14.6) % 18.6 H Plt Count (130-400) 10^3/uL 357 MPV (8.0-11.0) fL 9.7 Immature Gran % 1.1 Neutrophils % 90.3 Lymphocytes % 3.4 Monocytes % 5.0 Eosinophils % 0.0 Basophils % 0.2 Nucleated RBC % (0.0-0.3) % 0.5 H Absolute Neutrophils (1.2-6.7) 10^3/uL 14.57 H Absolute Lymphocytes (1.2-3.4) 10^3/uL 0.55 L Absolute Monocytes (0.1-0.8) 10^3/uL 0.81 H Absolute Eosinophils (0.0-0.7) 10^3/uL 0.00 Absolute Basophils (0.0-0.2) 10^3/uL 0.03 RBC Morphology Polychromasia Hypochromasia Basophilic Stippling PT (9.3-11.0) sec INR (0.9-1.1) APTT (21.0-27.5) sec 36.2 H 61.0 H D-Dimer (<500) ng/mlFEU ABG Sample Site ABG pH (7.35-7.45) ABG pCO2 (35-45) mmHg ABG pO2 (80-105) mmHg ABG HCO3 (22-26) mmol/L ABG Total CO2 (23-27) mmol/L ABG O2 Saturation (95-98) % ABG Base Excess (-2-3) mmol/L VBG pH (7.31-7.41) VBG pCO2 (41-51) mmHg VBG pO2 mmHg VBG HCO3 (23-28) mmol/L VBG Total CO2 (24-29) mmol/L VBG O2 Saturation % VBG Base Excess (-2-3) mmol/L VBG Lactate (0.6-1.4) mmol/L Oxygen Liter Flow FiO2 % Sodium (136-145) mmol/L Potassium (3.5-5.1) mmol/L Chloride (98-107) mmol/L Carbon Dioxide (21.0-32.0) mmol/L Anion Gap (3-11) mmol/L BUN (7-18) mg/dL Creatinine (0.55-1.02) mg/dL Est GFR (CKD-EPI 2020) (mL/min/1.73m2) Glucose (74-106) mg/dL Hemoglobin A1c (<5.7) % Calcium (8.5-10.1) mg/dL Phosphorus (2.6-4.7) mg/dL Magnesium (1.8-2.4) mg/dL Iron (50-170) ug/dL TIBC (250-450) ug/dL Ferritin (8-252) ng/mL Total Bilirubin (0.2-1.0) mg/dL AST (15-37) U/L ALT (14-59) U/L Alkaline Phosphatase (46-116) U/L Troponin I (<or=60) ng/L C-Reactive Protein (0.0-0.3) mg/dL NT-Pro-B Natriuret Pep (<300) pg/mL Total Protein (6.4-8.2) g/dL Albumin (3.4-5.0) g/dL Vitamin B12 (193-986) pg/mL Folate (8.6-20.0) ng/mL Procalcitonin ng/mL TSH (0.36-3.74) uIU/mL Urine Color (Yellow) Urine Clarity (Clear) Urine pH (5-8) Ur Specific [place] (1.005-1.025) Urine Protein (Negative) mg/dL Urine Ketones (Negative) mg/dL Urine Blood (Negative) Urine Nitrite (Negative) Urine Bilirubin (Negative) Urine Urobilinogen (Up TO 0.2) EU/dL Ur Leukocyte Esterase (Negative) Urine RBC (0-2) HPF Urine WBC (0-5) HPF Ur Epithelial Cells (Negative) HPF Urine Crystals (Negative) HPF Urine Bacteria (Negative) HPF Urine Casts (Negative) LPF Urine Mucus (Negative) Urine Other (Negative) Ur Culture Indicated? Urine Glucose (Negative) mg/dL Vancomycin Trough (10.0-20.0) ug/mL Urine Opiates Screen (Negative) Urine Methadone Screen (Negative) Ur Barbiturates Screen (Negative) Ur Tricyclics Screen (Negative) Ur Amphetamines Screen (Negative) U Benzodiazepines Scrn (Negative) Urine Cocaine Screen (Negative) Ur THC Screen (Negative) Ethyl Alcohol (<10) mg/dL COVID-19 Source SARS-CoV-2 (PCR) (Negative) Influenza Type A (PCR) (Negative) Influenza Type B (PCR) (Negative) Urine Legionella Ag (Negative) RSV (PCR) (Negative) Ur Strep pneumoniae Ag (Negative) Add-On Test Request Range/Units 05/13/22 05/13/22 05/13/22 05:35 06:14 06:14 WBC (4.4-10.8) 10^3/uL 11.47 H RBC (3.93-5.22) 10^6/uL 3.85 L Hgb (11.2-15.7) g/dL 9.7 L Hct (36.0-46.0) % 34.0 L MCV (80-95) fL 88 MCH (27.0-33.0) pg 25.2 L MCHC (32.0-36.0) % 28.5 L RDW (11.7-14.6) % 18.1 H Plt Count (130-400) 10^3/uL 265 MPV (8.0-11.0) fL 9.8 Immature Gran % 1.2 Neutrophils % 83.9 Lymphocytes % 4.5 Monocytes % 10.3 Eosinophils % 0.0 Basophils % 0.1 Nucleated RBC % (0.0-0.3) % 0.5 H Absolute Neutrophils (1.2-6.7) 10^3/uL 9.62 H Absolute Lymphocytes (1.2-3.4) 10^3/uL 0.52 L Absolute Monocytes (0.1-0.8) 10^3/uL 1.18 H Absolute Eosinophils (0.0-0.7) 10^3/uL 0.00 Absolute Basophils (0.0-0.2) 10^3/uL 0.01 RBC Morphology Polychromasia Hypochromasia Basophilic Stippling PT (9.3-11.0) sec INR (0.9-1.1) APTT (21.0-27.5) sec D-Dimer (<500) ng/mlFEU ABG Sample Site Cancelled ABG pH (7.35-7.45) Cancelled ABG pCO2 (35-45) mmHg Cancelled ABG pO2 (80-105) mmHg Cancelled ABG HCO3 (22-26) mmol/L Cancelled ABG Total CO2 (23-27) mmol/L Cancelled ABG O2 Saturation (95-98) % Cancelled ABG Base Excess (-2-3) mmol/L Cancelled VBG pH (7.31-7.41) VBG pCO2 (41-51) mmHg VBG pO2 mmHg VBG HCO3 (23-28) mmol/L VBG Total CO2 (24-29) mmol/L VBG O2 Saturation % VBG Base Excess (-2-3) mmol/L VBG Lactate (0.6-1.4) mmol/L Oxygen Liter Flow Cancelled FiO2 % Cancelled Sodium (136-145) mmol/L 138 Potassium (3.5-5.1) mmol/L 4.4 D Chloride (98-107) mmol/L 98 Carbon Dioxide (21.0-32.0) mmol/L 38.9 H Anion Gap (3-11) mmol/L 1.1 L BUN (7-18) mg/dL 35 H Creatinine (0.55-1.02) mg/dL 1.2 H Est GFR (CKD-EPI 2020) (mL/min/1.73m2) 50.86 Glucose (74-106) mg/dL 113 H Hemoglobin A1c (<5.7) % Calcium (8.5-10.1) mg/dL 8.4 L Phosphorus (2.6-4.7) mg/dL Magnesium (1.8-2.4) mg/dL 2.1 Iron (50-170) ug/dL TIBC (250-450) ug/dL Ferritin (8-252) ng/mL Total Bilirubin (0.2-1.0) mg/dL AST (15-37) U/L ALT (14-59) U/L Alkaline Phosphatase (46-116) U/L Troponin I (<or=60) ng/L C-Reactive Protein (0.0-0.3) mg/dL NT-Pro-B Natriuret Pep (<300) pg/mL Total Protein (6.4-8.2) g/dL Albumin (3.4-5.0) g/dL Vitamin B12 (193-986) pg/mL Folate (8.6-20.0) ng/mL Procalcitonin ng/mL TSH (0.36-3.74) uIU/mL Urine Color (Yellow) Urine Clarity (Clear) Urine pH (5-8) Ur Specific [place] (1.005-1.025) Urine Protein (Negative) mg/dL Urine Ketones (Negative) mg/dL Urine Blood (Negative) Urine Nitrite (Negative) Urine Bilirubin (Negative) Urine Urobilinogen (Up TO 0.2) EU/dL Ur Leukocyte Esterase (Negative) Urine RBC (0-2) HPF Urine WBC (0-5) HPF Ur Epithelial Cells (Negative) HPF Urine Crystals (Negative) HPF Urine Bacteria (Negative) HPF Urine Casts (Negative) LPF Urine Mucus (Negative) Urine Other (Negative) Ur Culture Indicated? Urine Glucose (Negative) mg/dL Vancomycin Trough (10.0-20.0) ug/mL Urine Opiates Screen (Negative) Urine Methadone Screen (Negative) Ur Barbiturates Screen (Negative) Ur Tricyclics Screen (Negative) Ur Amphetamines Screen (Negative) U Benzodiazepines Scrn (Negative) Urine Cocaine Screen (Negative) Ur THC Screen (Negative) Ethyl Alcohol (<10) mg/dL COVID-19 Source SARS-CoV-2 (PCR) (Negative) Influenza Type A (PCR) (Negative) Influenza Type B (PCR) (Negative) Urine Legionella Ag (Negative) RSV (PCR) (Negative) Ur Strep pneumoniae Ag (Negative) Add-On Test Request Range/Units 05/13/22 05/13/22 05/13/22 06:14 06:14 08:51 WBC (4.4-10.8) 10^3/uL RBC (3.93-5.22) 10^6/uL Hgb (11.2-15.7) g/dL Hct (36.0-46.0) % MCV (80-95) fL MCH (27.0-33.0) pg MCHC (32.0-36.0) % RDW (11.7-14.6) % Plt Count (130-400) 10^3/uL MPV (8.0-11.0) fL Immature Gran % Neutrophils % Lymphocytes % Monocytes % Eosinophils % Basophils % Nucleated RBC % (0.0-0.3) % Absolute Neutrophils (1.2-6.7) 10^3/uL Absolute Lymphocytes (1.2-3.4) 10^3/uL Absolute Monocytes (0.1-0.8) 10^3/uL Absolute Eosinophils (0.0-0.7) 10^3/uL Absolute Basophils (0.0-0.2) 10^3/uL RBC Morphology Polychromasia Hypochromasia Basophilic Stippling PT (9.3-11.0) sec INR (0.9-1.1) APTT (21.0-27.5) sec 52.3 H D-Dimer (<500) ng/mlFEU ABG Sample Site ABG pH (7.35-7.45) ABG pCO2 (35-45) mmHg ABG pO2 (80-105) mmHg ABG HCO3 (22-26) mmol/L ABG Total CO2 (23-27) mmol/L ABG O2 Saturation (95-98) % ABG Base Excess (-2-3) mmol/L VBG pH (7.31-7.41) 7.41 VBG pCO2 (41-51) mmHg 60 H VBG pO2 mmHg 76 VBG HCO3 (23-28) mmol/L 38 H VBG Total CO2 (24-29) mmol/L 36 H VBG O2 Saturation % 95 VBG Base Excess (-2-3) mmol/L 14 H VBG Lactate (0.6-1.4) mmol/L Oxygen Liter Flow FiO2 % Sodium (136-145) mmol/L Potassium (3.5-5.1) mmol/L Chloride (98-107) mmol/L Carbon Dioxide (21.0-32.0) mmol/L Anion Gap (3-11) mmol/L BUN (7-18) mg/dL Creatinine (0.55-1.02) mg/dL Est GFR (CKD-EPI 2020) (mL/min/1.73m2) Glucose (74-106) mg/dL Hemoglobin A1c (<5.7) % Calcium (8.5-10.1) mg/dL Phosphorus (2.6-4.7) mg/dL Magnesium (1.8-2.4) mg/dL Iron (50-170) ug/dL TIBC (250-450) ug/dL Ferritin (8-252) ng/mL Total Bilirubin (0.2-1.0) mg/dL AST (15-37) U/L ALT (14-59) U/L Alkaline Phosphatase (46-116) U/L Troponin I (<or=60) ng/L C-Reactive Protein (0.0-0.3) mg/dL NT-Pro-B Natriuret Pep (<300) pg/mL Total Protein (6.4-8.2) g/dL Albumin (3.4-5.0) g/dL Vitamin B12 (193-986) pg/mL Folate (8.6-20.0) ng/mL Procalcitonin ng/mL < 0.1 TSH (0.36-3.74) uIU/mL Urine Color (Yellow) Urine Clarity (Clear) Urine pH (5-8) Ur Specific [place] (1.005-1.025) Urine Protein (Negative) mg/dL Urine Ketones (Negative) mg/dL Urine Blood (Negative) Urine Nitrite (Negative) Urine Bilirubin (Negative) Urine Urobilinogen (Up TO 0.2) EU/dL Ur Leukocyte Esterase (Negative) Urine RBC (0-2) HPF Urine WBC (0-5) HPF Ur Epithelial Cells (Negative) HPF Urine Crystals (Negative) HPF Urine Bacteria (Negative) HPF Urine Casts (Negative) LPF Urine Mucus (Negative) Urine Other (Negative) Ur Culture Indicated? Urine Glucose (Negative) mg/dL Vancomycin Trough (10.0-20.0) ug/mL Urine Opiates Screen (Negative) Urine Methadone Screen (Negative) Ur Barbiturates Screen (Negative) Ur Tricyclics Screen (Negative) Ur Amphetamines Screen (Negative) U Benzodiazepines Scrn (Negative) Urine Cocaine Screen (Negative) Ur THC Screen (Negative) Ethyl Alcohol (<10) mg/dL COVID-19 Source SARS-CoV-2 (PCR) (Negative) Influenza Type A (PCR) (Negative) Influenza Type B (PCR) (Negative) Urine Legionella Ag (Negative) RSV (PCR) (Negative) Ur Strep pneumoniae Ag (Negative) Add-On Test Request Range/Units 05/14/22 05/14/22 05/14/22 03:18 05:20 05:20 WBC (4.4-10.8) 10^3/uL RBC (3.93-5.22) 10^6/uL Hgb (11.2-15.7) g/dL Hct (36.0-46.0) % MCV (80-95) fL MCH (27.0-33.0) pg MCHC (32.0-36.0) % RDW (11.7-14.6) % Plt Count (130-400) 10^3/uL MPV (8.0-11.0) fL Immature Gran % Neutrophils % Lymphocytes % Monocytes % Eosinophils % Basophils % Nucleated RBC % (0.0-0.3) % Absolute Neutrophils (1.2-6.7) 10^3/uL Absolute Lymphocytes (1.2-3.4) 10^3/uL Absolute Monocytes (0.1-0.8) 10^3/uL Absolute Eosinophils (0.0-0.7) 10^3/uL Absolute Basophils (0.0-0.2) 10^3/uL RBC Morphology Polychromasia Hypochromasia Basophilic Stippling PT (9.3-11.0) sec INR (0.9-1.1) APTT (21.0-27.5) sec 21.4 D-Dimer (<500) ng/mlFEU ABG Sample Site Cancelled ABG pH (7.35-7.45) Cancelled ABG pCO2 (35-45) mmHg Cancelled ABG pO2 (80-105) mmHg Cancelled ABG HCO3 (22-26) mmol/L Cancelled ABG Total CO2 (23-27) mmol/L Cancelled ABG O2 Saturation (95-98) % Cancelled ABG Base Excess (-2-3) mmol/L Cancelled VBG pH (7.31-7.41) VBG pCO2 (41-51) mmHg VBG pO2 mmHg VBG HCO3 (23-28) mmol/L VBG Total CO2 (24-29) mmol/L VBG O2 Saturation % VBG Base Excess (-2-3) mmol/L VBG Lactate (0.6-1.4) mmol/L Oxygen Liter Flow Cancelled FiO2 % Cancelled Sodium (136-145) mmol/L 140 Potassium (3.5-5.1) mmol/L 3.9 Chloride (98-107) mmol/L 99 Carbon Dioxide (21.0-32.0) mmol/L 41.5 H Anion Gap (3-11) mmol/L -0.5 L BUN (7-18) mg/dL 34 H Creatinine (0.55-1.02) mg/dL 1.2 H Est GFR (CKD-EPI 2020) (mL/min/1.73m2) 50.86 Glucose (74-106) mg/dL 123 H Hemoglobin A1c (<5.7) % Calcium (8.5-10.1) mg/dL 8.3 L Phosphorus (2.6-4.7) mg/dL Magnesium (1.8-2.4) mg/dL 2.0 Iron (50-170) ug/dL TIBC (250-450) ug/dL Ferritin (8-252) ng/mL Total Bilirubin (0.2-1.0) mg/dL AST (15-37) U/L ALT (14-59) U/L Alkaline Phosphatase (46-116) U/L Troponin I (<or=60) ng/L C-Reactive Protein (0.0-0.3) mg/dL NT-Pro-B Natriuret Pep (<300) pg/mL Total Protein (6.4-8.2) g/dL Albumin (3.4-5.0) g/dL Vitamin B12 (193-986) pg/mL Folate (8.6-20.0) ng/mL Procalcitonin ng/mL TSH (0.36-3.74) uIU/mL Urine Color (Yellow) Urine Clarity (Clear) Urine pH (5-8) Ur Specific [place] (1.005-1.025) Urine Protein (Negative) mg/dL Urine Ketones (Negative) mg/dL Urine Blood (Negative) Urine Nitrite (Negative) Urine Bilirubin (Negative) Urine Urobilinogen (Up TO 0.2) EU/dL Ur Leukocyte Esterase (Negative) Urine RBC (0-2) HPF Urine WBC (0-5) HPF Ur Epithelial Cells (Negative) HPF Urine Crystals (Negative) HPF Urine Bacteria (Negative) HPF Urine Casts (Negative) LPF Urine Mucus (Negative) Urine Other (Negative) Ur Culture Indicated? Urine Glucose (Negative) mg/dL Vancomycin Trough (10.0-20.0) ug/mL Urine Opiates Screen (Negative) Urine Methadone Screen (Negative) Ur Barbiturates Screen (Negative) Ur Tricyclics Screen (Negative) Ur Amphetamines Screen (Negative) U Benzodiazepines Scrn (Negative) Urine Cocaine Screen (Negative) Ur THC Screen (Negative) Ethyl Alcohol (<10) mg/dL COVID-19 Source SARS-CoV-2 (PCR) (Negative) Influenza Type A (PCR) (Negative) Influenza Type B (PCR) (Negative) Urine Legionella Ag (Negative) RSV (PCR) (Negative) Ur Strep pneumoniae Ag (Negative) Add-On Test Request Range/Units 05/14/22 05/14/22 05/14/22 05:20 07:41 07:45 WBC (4.4-10.8) 10^3/uL 9.29 RBC (3.93-5.22) 10^6/uL 3.55 L Hgb (11.2-15.7) g/dL 9.2 L Hct (36.0-46.0) % 31.9 L MCV (80-95) fL 90 MCH (27.0-33.0) pg 25.9 L MCHC (32.0-36.0) % 28.8 L RDW (11.7-14.6) % 17.7 H Plt Count (130-400) 10^3/uL 222 MPV (8.0-11.0) fL 9.8 Immature Gran % 0.9 Neutrophils % 80.7 Lymphocytes % 7.1 Monocytes % 11.2 Eosinophils % 0.0 Basophils % 0.1 Nucleated RBC % (0.0-0.3) % 0.4 H Absolute Neutrophils (1.2-6.7) 10^3/uL 7.50 H Absolute Lymphocytes (1.2-3.4) 10^3/uL 0.66 L Absolute Monocytes (0.1-0.8) 10^3/uL 1.04 H Absolute Eosinophils (0.0-0.7) 10^3/uL 0.00 Absolute Basophils (0.0-0.2) 10^3/uL 0.01 RBC Morphology Polychromasia Hypochromasia Basophilic Stippling PT (9.3-11.0) sec INR (0.9-1.1) APTT (21.0-27.5) sec D-Dimer (<500) ng/mlFEU ABG Sample Site Right Radial ABG pH (7.35-7.45) 7.38 ABG pCO2 (35-45) mmHg 69 H* ABG pO2 (80-105) mmHg 81 ABG HCO3 (22-26) mmol/L 41 H ABG Total CO2 (23-27) mmol/L 39 H ABG O2 Saturation (95-98) % 97 ABG Base Excess (-2-3) mmol/L > 15 H VBG pH (7.31-7.41) VBG pCO2 (41-51) mmHg VBG pO2 mmHg VBG HCO3 (23-28) mmol/L VBG Total CO2 (24-29) mmol/L VBG O2 Saturation % VBG Base Excess (-2-3) mmol/L VBG Lactate (0.6-1.4) mmol/L 0.7 Oxygen Liter Flow VT350/RR14/P5 FiO2 % 40 Sodium (136-145) mmol/L Potassium (3.5-5.1) mmol/L Chloride (98-107) mmol/L Carbon Dioxide (21.0-32.0) mmol/L Anion Gap (3-11) mmol/L BUN (7-18) mg/dL Creatinine (0.55-1.02) mg/dL Est GFR (CKD-EPI 2020) (mL/min/1.73m2) Glucose (74-106) mg/dL Hemoglobin A1c (<5.7) % Calcium (8.5-10.1) mg/dL Phosphorus (2.6-4.7) mg/dL Magnesium (1.8-2.4) mg/dL Iron (50-170) ug/dL TIBC (250-450) ug/dL Ferritin (8-252) ng/mL Total Bilirubin (0.2-1.0) mg/dL AST (15-37) U/L ALT (14-59) U/L Alkaline Phosphatase (46-116) U/L Troponin I (<or=60) ng/L C-Reactive Protein (0.0-0.3) mg/dL NT-Pro-B Natriuret Pep (<300) pg/mL Total Protein (6.4-8.2) g/dL Albumin (3.4-5.0) g/dL Vitamin B12 (193-986) pg/mL Folate (8.6-20.0) ng/mL Procalcitonin ng/mL TSH (0.36-3.74) uIU/mL Urine Color (Yellow) Urine Clarity (Clear) Urine pH (5-8) Ur Specific [place] (1.005-1.025) Urine Protein (Negative) mg/dL Urine Ketones (Negative) mg/dL Urine Blood (Negative) Urine Nitrite (Negative) Urine Bilirubin (Negative) Urine Urobilinogen (Up TO 0.2) EU/dL Ur Leukocyte Esterase (Negative) Urine RBC (0-2) HPF Urine WBC (0-5) HPF Ur Epithelial Cells (Negative) HPF Urine Crystals (Negative) HPF Urine Bacteria (Negative) HPF Urine Casts (Negative) LPF Urine Mucus (Negative) Urine Other (Negative) Ur Culture Indicated? Urine Glucose (Negative) mg/dL Vancomycin Trough (10.0-20.0) ug/mL Urine Opiates Screen (Negative) Urine Methadone Screen (Negative) Ur Barbiturates Screen (Negative) Ur Tricyclics Screen (Negative) Ur Amphetamines Screen (Negative) U Benzodiazepines Scrn (Negative) Urine Cocaine Screen (Negative) Ur THC Screen (Negative) Ethyl Alcohol (<10) mg/dL COVID-19 Source SARS-CoV-2 (PCR) (Negative) Influenza Type A (PCR) (Negative) Influenza Type B (PCR) (Negative) Urine Legionella Ag (Negative) RSV (PCR) (Negative) Ur Strep pneumoniae Ag (Negative) Add-On Test Request Range/Units 05/14/22 05/14/22 05/15/22 09:20 18:20 05:35 WBC (4.4-10.8) 10^3/uL RBC (3.93-5.22) 10^6/uL Hgb (11.2-15.7) g/dL Hct (36.0-46.0) % MCV (80-95) fL MCH (27.0-33.0) pg MCHC (32.0-36.0) % RDW (11.7-14.6) % Plt Count (130-400) 10^3/uL MPV (8.0-11.0) fL Immature Gran % Neutrophils % Lymphocytes % Monocytes % Eosinophils % Basophils % Nucleated RBC % (0.0-0.3) % Absolute Neutrophils (1.2-6.7) 10^3/uL Absolute Lymphocytes (1.2-3.4) 10^3/uL Absolute Monocytes (0.1-0.8) 10^3/uL Absolute Eosinophils (0.0-0.7) 10^3/uL Absolute Basophils (0.0-0.2) 10^3/uL RBC Morphology Polychromasia Hypochromasia Basophilic Stippling PT (9.3-11.0) sec INR (0.9-1.1) APTT (21.0-27.5) sec D-Dimer (<500) ng/mlFEU ABG Sample Site Cancelled ABG pH (7.35-7.45) Cancelled ABG pCO2 (35-45) mmHg Cancelled ABG pO2 (80-105) mmHg Cancelled ABG HCO3 (22-26) mmol/L Cancelled ABG Total CO2 (23-27) mmol/L Cancelled ABG O2 Saturation (95-98) % Cancelled ABG Base Excess (-2-3) mmol/L Cancelled VBG pH (7.31-7.41) VBG pCO2 (41-51) mmHg VBG pO2 mmHg VBG HCO3 (23-28) mmol/L VBG Total CO2 (24-29) mmol/L VBG O2 Saturation % VBG Base Excess (-2-3) mmol/L VBG Lactate (0.6-1.4) mmol/L Oxygen Liter Flow Cancelled FiO2 % Cancelled Sodium (136-145) mmol/L Potassium (3.5-5.1) mmol/L Chloride (98-107) mmol/L Carbon Dioxide (21.0-32.0) mmol/L Anion Gap (3-11) mmol/L BUN (7-18) mg/dL Creatinine (0.55-1.02) mg/dL Est GFR (CKD-EPI 2020) (mL/min/1.73m2) Glucose (74-106) mg/dL Hemoglobin A1c (<5.7) % Calcium (8.5-10.1) mg/dL Phosphorus (2.6-4.7) mg/dL Magnesium (1.8-2.4) mg/dL Iron (50-170) ug/dL TIBC (250-450) ug/dL Ferritin (8-252) ng/mL Total Bilirubin (0.2-1.0) mg/dL AST (15-37) U/L ALT (14-59) U/L Alkaline Phosphatase (46-116) U/L Troponin I (<or=60) ng/L C-Reactive Protein (0.0-0.3) mg/dL NT-Pro-B Natriuret Pep (<300) pg/mL Total Protein (6.4-8.2) g/dL Albumin (3.4-5.0) g/dL Vitamin B12 (193-986) pg/mL Folate (8.6-20.0) ng/mL Procalcitonin ng/mL TSH (0.36-3.74) uIU/mL Urine Color (Yellow) Yellow Urine Clarity (Clear) Clear Urine pH (5-8) 6.0 Ur Specific [place] (1.005-1.025) 1.025 Urine Protein (Negative) mg/dL Negative Urine Ketones (Negative) mg/dL Negative Urine Blood (Negative) Moderate H Urine Nitrite (Negative) Negative Urine Bilirubin (Negative) Negative Urine Urobilinogen (Up TO 0.2) EU/dL 0.2 Ur Leukocyte Esterase (Negative) Negative Urine RBC (0-2) HPF >50 H Urine WBC (0-5) HPF Negative Ur Epithelial Cells (Negative) HPF Few Urine Crystals (Negative) HPF Moderate Uric Acid Urine Bacteria (Negative) HPF Negative Urine Casts (Negative) LPF Negative Urine Mucus (Negative) Negative Urine Other (Negative) Ur Culture Indicated? No Urine Glucose (Negative) mg/dL Negative Vancomycin Trough (10.0-20.0) ug/mL Urine Opiates Screen (Negative) Urine Methadone Screen (Negative) Ur Barbiturates Screen (Negative) Ur Tricyclics Screen (Negative) Ur Amphetamines Screen (Negative) U Benzodiazepines Scrn (Negative) Urine Cocaine Screen (Negative) Ur THC Screen (Negative) Ethyl Alcohol (<10) mg/dL COVID-19 Source Nasopharynx SARS-CoV-2 (PCR) (Negative) Negative Influenza Type A (PCR) (Negative) Negative Influenza Type B (PCR) (Negative) Negative Urine Legionella Ag (Negative) RSV (PCR) (Negative) Negative Ur Strep pneumoniae Ag (Negative) Add-On Test Request Range/Units 05/15/22 05/15/22 05/15/22 05:50 05:50 15:35 WBC (4.4-10.8) 10^3/uL 9.19 RBC (3.93-5.22) 10^6/uL 3.61 L Hgb (11.2-15.7) g/dL 9.0 L Hct (36.0-46.0) % 32.5 L MCV (80-95) fL 90 MCH (27.0-33.0) pg 24.9 L MCHC (32.0-36.0) % 27.7 L RDW (11.7-14.6) % 17.7 H Plt Count (130-400) 10^3/uL 234 MPV (8.0-11.0) fL 10.0 Immature Gran % 1.1 Neutrophils % 80.1 Lymphocytes % 7.9 Monocytes % 10.4 Eosinophils % 0.4 Basophils % 0.1 Nucleated RBC % (0.0-0.3) % 0.3 Absolute Neutrophils (1.2-6.7) 10^3/uL 7.35 H Absolute Lymphocytes (1.2-3.4) 10^3/uL 0.73 L Absolute Monocytes (0.1-0.8) 10^3/uL 0.96 H Absolute Eosinophils (0.0-0.7) 10^3/uL 0.04 Absolute Basophils (0.0-0.2) 10^3/uL 0.01 RBC Morphology See Below Polychromasia Hypochromasia 2+ Basophilic Stippling Present PT (9.3-11.0) sec INR (0.9-1.1) APTT (21.0-27.5) sec 17.8 L D-Dimer (<500) ng/mlFEU ABG Sample Site ABG pH (7.35-7.45) ABG pCO2 (35-45) mmHg ABG pO2 (80-105) mmHg ABG HCO3 (22-26) mmol/L ABG Total CO2 (23-27) mmol/L ABG O2 Saturation (95-98) % ABG Base Excess (-2-3) mmol/L VBG pH (7.31-7.41) VBG pCO2 (41-51) mmHg VBG pO2 mmHg VBG HCO3 (23-28) mmol/L VBG Total CO2 (24-29) mmol/L VBG O2 Saturation % VBG Base Excess (-2-3) mmol/L VBG Lactate (0.6-1.4) mmol/L Oxygen Liter Flow FiO2 % Sodium (136-145) mmol/L 144 Potassium (3.5-5.1) mmol/L 3.7 Chloride (98-107) mmol/L 100 Carbon Dioxide (21.0-32.0) mmol/L 41.9 H Anion Gap (3-11) mmol/L 2.1 L BUN (7-18) mg/dL 24 H Creatinine (0.55-1.02) mg/dL 0.8 Est GFR (CKD-EPI 2020) (mL/min/1.73m2) 82.74 Glucose (74-106) mg/dL 114 H Hemoglobin A1c (<5.7) % Calcium (8.5-10.1) mg/dL 8.6 Phosphorus (2.6-4.7) mg/dL Magnesium (1.8-2.4) mg/dL 1.9 Iron (50-170) ug/dL TIBC (250-450) ug/dL Ferritin (8-252) ng/mL Total Bilirubin (0.2-1.0) mg/dL AST (15-37) U/L ALT (14-59) U/L Alkaline Phosphatase (46-116) U/L Troponin I (<or=60) ng/L C-Reactive Protein (0.0-0.3) mg/dL NT-Pro-B Natriuret Pep (<300) pg/mL Total Protein (6.4-8.2) g/dL Albumin (3.4-5.0) g/dL Vitamin B12 (193-986) pg/mL Folate (8.6-20.0) ng/mL Procalcitonin ng/mL TSH (0.36-3.74) uIU/mL Urine Color (Yellow) Urine Clarity (Clear) Urine pH (5-8) Ur Specific [place] (1.005-1.025) Urine Protein (Negative) mg/dL Urine Ketones (Negative) mg/dL Urine Blood (Negative) Urine Nitrite (Negative) Urine Bilirubin (Negative) Urine Urobilinogen (Up TO 0.2) EU/dL Ur Leukocyte Esterase (Negative) Urine RBC (0-2) HPF Urine WBC (0-5) HPF Ur Epithelial Cells (Negative) HPF Urine Crystals (Negative) HPF Urine Bacteria (Negative) HPF Urine Casts (Negative) LPF Urine Mucus (Negative) Urine Other (Negative) Ur Culture Indicated? Urine Glucose (Negative) mg/dL Vancomycin Trough (10.0-20.0) ug/mL Urine Opiates Screen (Negative) Urine Methadone Screen (Negative) Ur Barbiturates Screen (Negative) Ur Tricyclics Screen (Negative) Ur Amphetamines Screen (Negative) U Benzodiazepines Scrn (Negative) Urine Cocaine Screen (Negative) Ur THC Screen (Negative) Ethyl Alcohol (<10) mg/dL COVID-19 Source SARS-CoV-2 (PCR) (Negative) Influenza Type A (PCR) (Negative) Influenza Type B (PCR) (Negative) Urine Legionella Ag (Negative) RSV (PCR) (Negative) Ur Strep pneumoniae Ag (Negative) Add-On Test Request Range/Units 05/16/22 05/16/22 05/16/22 00:04 03:35 07:40 WBC (4.4-10.8) 10^3/uL RBC (3.93-5.22) 10^6/uL Hgb (11.2-15.7) g/dL Hct (36.0-46.0) % MCV (80-95) fL MCH (27.0-33.0) pg MCHC (32.0-36.0) % RDW (11.7-14.6) % Plt Count (130-400) 10^3/uL MPV (8.0-11.0) fL Immature Gran % Neutrophils % Lymphocytes % Monocytes % Eosinophils % Basophils % Nucleated RBC % (0.0-0.3) % Absolute Neutrophils (1.2-6.7) 10^3/uL Absolute Lymphocytes (1.2-3.4) 10^3/uL Absolute Monocytes (0.1-0.8) 10^3/uL Absolute Eosinophils (0.0-0.7) 10^3/uL Absolute Basophils (0.0-0.2) 10^3/uL RBC Morphology Polychromasia Hypochromasia Basophilic Stippling PT (9.3-11.0) sec INR (0.9-1.1) APTT (21.0-27.5) sec 33.6 H 34.7 H D-Dimer (<500) ng/mlFEU ABG Sample Site ABG pH (7.35-7.45) ABG pCO2 (35-45) mmHg ABG pO2 (80-105) mmHg ABG HCO3 (22-26) mmol/L ABG Total CO2 (23-27) mmol/L ABG O2 Saturation (95-98) % ABG Base Excess (-2-3) mmol/L VBG pH (7.31-7.41) VBG pCO2 (41-51) mmHg VBG pO2 mmHg VBG HCO3 (23-28) mmol/L VBG Total CO2 (24-29) mmol/L VBG O2 Saturation % VBG Base Excess (-2-3) mmol/L VBG Lactate (0.6-1.4) mmol/L Oxygen Liter Flow FiO2 % Sodium (136-145) mmol/L Potassium (3.5-5.1) mmol/L Chloride (98-107) mmol/L Carbon Dioxide (21.0-32.0) mmol/L Anion Gap (3-11) mmol/L BUN (7-18) mg/dL Creatinine (0.55-1.02) mg/dL Est GFR (CKD-EPI 2020) (mL/min/1.73m2) Glucose (74-106) mg/dL Hemoglobin A1c (<5.7) % Calcium (8.5-10.1) mg/dL Phosphorus (2.6-4.7) mg/dL Magnesium (1.8-2.4) mg/dL Iron (50-170) ug/dL TIBC (250-450) ug/dL Ferritin (8-252) ng/mL Total Bilirubin (0.2-1.0) mg/dL AST (15-37) U/L ALT (14-59) U/L Alkaline Phosphatase (46-116) U/L Troponin I (<or=60) ng/L C-Reactive Protein (0.0-0.3) mg/dL NT-Pro-B Natriuret Pep (<300) pg/mL Total Protein (6.4-8.2) g/dL Albumin (3.4-5.0) g/dL Vitamin B12 (193-986) pg/mL Folate (8.6-20.0) ng/mL Procalcitonin ng/mL TSH (0.36-3.74) uIU/mL Urine Color (Yellow) Urine Clarity (Clear) Urine pH (5-8) Ur Specific [place] (1.005-1.025) Urine Protein (Negative) mg/dL Urine Ketones (Negative) mg/dL Urine Blood (Negative) Urine Nitrite (Negative) Urine Bilirubin (Negative) Urine Urobilinogen (Up TO 0.2) EU/dL Ur Leukocyte Esterase (Negative) Urine RBC (0-2) HPF Urine WBC (0-5) HPF Ur Epithelial Cells (Negative) HPF Urine Crystals (Negative) HPF Urine Bacteria (Negative) HPF Urine Casts (Negative) LPF Urine Mucus (Negative) Urine Other (Negative) Ur Culture Indicated? Urine Glucose (Negative) mg/dL Vancomycin Trough (10.0-20.0) ug/mL 18.1 Urine Opiates Screen (Negative) Urine Methadone Screen (Negative) Ur Barbiturates Screen (Negative) Ur Tricyclics Screen (Negative) Ur Amphetamines Screen (Negative) U Benzodiazepines Scrn (Negative) Urine Cocaine Screen (Negative) Ur THC Screen (Negative) Ethyl Alcohol (<10) mg/dL COVID-19 Source SARS-CoV-2 (PCR) (Negative) Influenza Type A (PCR) (Negative) Influenza Type B (PCR) (Negative) Urine Legionella Ag (Negative) RSV (PCR) (Negative) Ur Strep pneumoniae Ag (Negative) Add-On Test Request Range/Units 05/16/22 05/16/22 05/16/22 07:40 07:40 07:40 WBC (4.4-10.8) 10^3/uL 9.30 RBC (3.93-5.22) 10^6/uL 3.59 L Hgb (11.2-15.7) g/dL 9.0 L Hct (36.0-46.0) % 31.9 L MCV (80-95) fL 89 MCH (27.0-33.0) pg 25.1 L MCHC (32.0-36.0) % 28.2 L RDW (11.7-14.6) % 17.5 H Plt Count (130-400) 10^3/uL 232 MPV (8.0-11.0) fL 9.8 Immature Gran % 1.2 Neutrophils % 80.1 Lymphocytes % 6.7 Monocytes % 10.5 Eosinophils % 1.3 Basophils % 0.2 Nucleated RBC % (0.0-0.3) % 0.2 Absolute Neutrophils (1.2-6.7) 10^3/uL 7.45 H Absolute Lymphocytes (1.2-3.4) 10^3/uL 0.62 L Absolute Monocytes (0.1-0.8) 10^3/uL 0.98 H Absolute Eosinophils (0.0-0.7) 10^3/uL 0.12 Absolute Basophils (0.0-0.2) 10^3/uL 0.02 RBC Morphology Polychromasia Hypochromasia Basophilic Stippling PT (9.3-11.0) sec INR (0.9-1.1) APTT (21.0-27.5) sec 45.3 H D-Dimer (<500) ng/mlFEU ABG Sample Site ABG pH (7.35-7.45) ABG pCO2 (35-45) mmHg ABG pO2 (80-105) mmHg ABG HCO3 (22-26) mmol/L ABG Total CO2 (23-27) mmol/L ABG O2 Saturation (95-98) % ABG Base Excess (-2-3) mmol/L VBG pH (7.31-7.41) VBG pCO2 (41-51) mmHg VBG pO2 mmHg VBG HCO3 (23-28) mmol/L VBG Total CO2 (24-29) mmol/L VBG O2 Saturation % VBG Base Excess (-2-3) mmol/L VBG Lactate (0.6-1.4) mmol/L Oxygen Liter Flow FiO2 % Sodium (136-145) mmol/L 143 Potassium (3.5-5.1) mmol/L 3.3 L Chloride (98-107) mmol/L 100 Carbon Dioxide (21.0-32.0) mmol/L 44.0 H Anion Gap (3-11) mmol/L -1.0 L BUN (7-18) mg/dL 21 H Creatinine (0.55-1.02) mg/dL 1.0 Est GFR (CKD-EPI 2020) (mL/min/1.73m2) 63.30 Glucose (74-106) mg/dL 102 Hemoglobin A1c (<5.7) % Calcium (8.5-10.1) mg/dL 8.6 Phosphorus (2.6-4.7) mg/dL Magnesium (1.8-2.4) mg/dL 1.8 Iron (50-170) ug/dL TIBC (250-450) ug/dL Ferritin (8-252) ng/mL Total Bilirubin (0.2-1.0) mg/dL AST (15-37) U/L ALT (14-59) U/L Alkaline Phosphatase (46-116) U/L Troponin I (<or=60) ng/L C-Reactive Protein (0.0-0.3) mg/dL NT-Pro-B Natriuret Pep (<300) pg/mL Total Protein (6.4-8.2) g/dL Albumin (3.4-5.0) g/dL Vitamin B12 (193-986) pg/mL Folate (8.6-20.0) ng/mL Procalcitonin ng/mL TSH (0.36-3.74) uIU/mL Urine Color (Yellow) Urine Clarity (Clear) Urine pH (5-8) Ur Specific [place] (1.005-1.025) Urine Protein (Negative) mg/dL Urine Ketones (Negative) mg/dL Urine Blood (Negative) Urine Nitrite (Negative) Urine Bilirubin (Negative) Urine Urobilinogen (Up TO 0.2) EU/dL Ur Leukocyte Esterase (Negative) Urine RBC (0-2) HPF Urine WBC (0-5) HPF Ur Epithelial Cells (Negative) HPF Urine Crystals (Negative) HPF Urine Bacteria (Negative) HPF Urine Casts (Negative) LPF Urine Mucus (Negative) Urine Other (Negative) Ur Culture Indicated? Urine Glucose (Negative) mg/dL Vancomycin Trough (10.0-20.0) ug/mL Urine Opiates Screen (Negative) Urine Methadone Screen (Negative) Ur Barbiturates Screen (Negative) Ur Tricyclics Screen (Negative) Ur Amphetamines Screen (Negative) U Benzodiazepines Scrn (Negative) Urine Cocaine Screen (Negative) Ur THC Screen (Negative) Ethyl Alcohol (<10) mg/dL COVID-19 Source SARS-CoV-2 (PCR) (Negative) Influenza Type A (PCR) (Negative) Influenza Type B (PCR) (Negative) Urine Legionella Ag (Negative) RSV (PCR) (Negative) Ur Strep pneumoniae Ag (Negative) Add-On Test Request Range/Units 05/16/22 05/16/22 05/16/22 11:20 21:00 21:03 WBC (4.4-10.8) 10^3/uL RBC (3.93-5.22) 10^6/uL Hgb (11.2-15.7) g/dL Hct (36.0-46.0) % MCV (80-95) fL MCH (27.0-33.0) pg MCHC (32.0-36.0) % RDW (11.7-14.6) % Plt Count (130-400) 10^3/uL MPV (8.0-11.0) fL Immature Gran % Neutrophils % Lymphocytes % Monocytes % Eosinophils % Basophils % Nucleated RBC % (0.0-0.3) % Absolute Neutrophils (1.2-6.7) 10^3/uL Absolute Lymphocytes (1.2-3.4) 10^3/uL Absolute Monocytes (0.1-0.8) 10^3/uL Absolute Eosinophils (0.0-0.7) 10^3/uL Absolute Basophils (0.0-0.2) 10^3/uL RBC Morphology Polychromasia Hypochromasia Basophilic Stippling PT (9.3-11.0) sec INR (0.9-1.1) APTT (21.0-27.5) sec Cancelled 51.0 H D-Dimer (<500) ng/mlFEU ABG Sample Site ABG pH (7.35-7.45) ABG pCO2 (35-45) mmHg ABG pO2 (80-105) mmHg ABG HCO3 (22-26) mmol/L ABG Total CO2 (23-27) mmol/L ABG O2 Saturation (95-98) % ABG Base Excess (-2-3) mmol/L VBG pH (7.31-7.41) VBG pCO2 (41-51) mmHg VBG pO2 mmHg VBG HCO3 (23-28) mmol/L VBG Total CO2 (24-29) mmol/L VBG O2 Saturation % VBG Base Excess (-2-3) mmol/L VBG Lactate (0.6-1.4) mmol/L 0.7 Oxygen Liter Flow FiO2 % Sodium (136-145) mmol/L Potassium (3.5-5.1) mmol/L Chloride (98-107) mmol/L Carbon Dioxide (21.0-32.0) mmol/L Anion Gap (3-11) mmol/L BUN (7-18) mg/dL Creatinine (0.55-1.02) mg/dL Est GFR (CKD-EPI 2020) (mL/min/1.73m2) Glucose (74-106) mg/dL Hemoglobin A1c (<5.7) % Calcium (8.5-10.1) mg/dL Phosphorus (2.6-4.7) mg/dL Magnesium (1.8-2.4) mg/dL Iron (50-170) ug/dL TIBC (250-450) ug/dL Ferritin (8-252) ng/mL Total Bilirubin (0.2-1.0) mg/dL AST (15-37) U/L ALT (14-59) U/L Alkaline Phosphatase (46-116) U/L Troponin I (<or=60) ng/L C-Reactive Protein (0.0-0.3) mg/dL NT-Pro-B Natriuret Pep (<300) pg/mL Total Protein (6.4-8.2) g/dL Albumin (3.4-5.0) g/dL Vitamin B12 (193-986) pg/mL Folate (8.6-20.0) ng/mL Procalcitonin ng/mL TSH (0.36-3.74) uIU/mL Urine Color (Yellow) Urine Clarity (Clear) Urine pH (5-8) Ur Specific [place] (1.005-1.025) Urine Protein (Negative) mg/dL Urine Ketones (Negative) mg/dL Urine Blood (Negative) Urine Nitrite (Negative) Urine Bilirubin (Negative) Urine Urobilinogen (Up TO 0.2) EU/dL Ur Leukocyte Esterase (Negative) Urine RBC (0-2) HPF Urine WBC (0-5) HPF Ur Epithelial Cells (Negative) HPF Urine Crystals (Negative) HPF Urine Bacteria (Negative) HPF Urine Casts (Negative) LPF Urine Mucus (Negative) Urine Other (Negative) Ur Culture Indicated? Urine Glucose (Negative) mg/dL Vancomycin Trough (10.0-20.0) ug/mL Urine Opiates Screen (Negative) Urine Methadone Screen (Negative) Ur Barbiturates Screen (Negative) Ur Tricyclics Screen (Negative) Ur Amphetamines Screen (Negative) U Benzodiazepines Scrn (Negative) Urine Cocaine Screen (Negative) Ur THC Screen (Negative) Ethyl Alcohol (<10) mg/dL COVID-19 Source SARS-CoV-2 (PCR) (Negative) Influenza Type A (PCR) (Negative) Influenza Type B (PCR) (Negative) Urine Legionella Ag (Negative) RSV (PCR) (Negative) Ur Strep pneumoniae Ag (Negative) Add-On Test Request Range/Units 05/17/22 05/17/22 05/17/22 05:15 05:15 05:15 WBC (4.4-10.8) 10^3/uL 9.76 RBC (3.93-5.22) 10^6/uL 3.73 L Hgb (11.2-15.7) g/dL 9.5 L Hct (36.0-46.0) % 33.2 L MCV (80-95) fL 89 MCH (27.0-33.0) pg 25.5 L MCHC (32.0-36.0) % 28.6 L RDW (11.7-14.6) % 17.2 H Plt Count (130-400) 10^3/uL 291 MPV (8.0-11.0) fL 10.0 Immature Gran % 1.2 Neutrophils % 79.5 Lymphocytes % 7.5 Monocytes % 10.3 Eosinophils % 1.2 Basophils % 0.3 Nucleated RBC % (0.0-0.3) % 0.2 Absolute Neutrophils (1.2-6.7) 10^3/uL 7.75 H Absolute Lymphocytes (1.2-3.4) 10^3/uL 0.73 L Absolute Monocytes (0.1-0.8) 10^3/uL 1.01 H Absolute Eosinophils (0.0-0.7) 10^3/uL 0.12 Absolute Basophils (0.0-0.2) 10^3/uL 0.03 RBC Morphology Polychromasia Hypochromasia Basophilic Stippling PT (9.3-11.0) sec INR (0.9-1.1) APTT (21.0-27.5) sec 46.0 H D-Dimer (<500) ng/mlFEU ABG Sample Site ABG pH (7.35-7.45) ABG pCO2 (35-45) mmHg ABG pO2 (80-105) mmHg ABG HCO3 (22-26) mmol/L ABG Total CO2 (23-27) mmol/L ABG O2 Saturation (95-98) % ABG Base Excess (-2-3) mmol/L VBG pH (7.31-7.41) VBG pCO2 (41-51) mmHg VBG pO2 mmHg VBG HCO3 (23-28) mmol/L VBG Total CO2 (24-29) mmol/L VBG O2 Saturation % VBG Base Excess (-2-3) mmol/L VBG Lactate (0.6-1.4) mmol/L Oxygen Liter Flow FiO2 % Sodium (136-145) mmol/L 141 Potassium (3.5-5.1) mmol/L 3.5 Chloride (98-107) mmol/L 98 Carbon Dioxide (21.0-32.0) mmol/L > 45.0 H Anion Gap (3-11) mmol/L -[id number] L BUN (7-18) mg/dL 21 H Creatinine (0.55-1.02) mg/dL 0.9 Est GFR (CKD-EPI 2020) (mL/min/1.73m2) 71.83 Glucose (74-106) mg/dL 118 H Hemoglobin A1c (<5.7) % Calcium (8.5-10.1) mg/dL 9.2 Phosphorus (2.6-4.7) mg/dL Magnesium (1.8-2.4) mg/dL Iron (50-170) ug/dL TIBC (250-450) ug/dL Ferritin (8-252) ng/mL Total Bilirubin (0.2-1.0) mg/dL 0.5 AST (15-37) U/L 24 ALT (14-59) U/L 56 Alkaline Phosphatase (46-116) U/L 46 Troponin I (<or=60) ng/L C-Reactive Protein (0.0-0.3) mg/dL NT-Pro-B Natriuret Pep (<300) pg/mL Total Protein (6.4-8.2) g/dL 6.2 L Albumin (3.4-5.0) g/dL 2.7 L Vitamin B12 (193-986) pg/mL Folate (8.6-20.0) ng/mL Procalcitonin ng/mL TSH (0.36-3.74) uIU/mL Urine Color (Yellow) Urine Clarity (Clear) Urine pH (5-8) Ur Specific [place] (1.005-1.025) Urine Protein (Negative) mg/dL Urine Ketones (Negative) mg/dL Urine Blood (Negative) Urine Nitrite (Negative) Urine Bilirubin (Negative) Urine Urobilinogen (Up TO 0.2) EU/dL Ur Leukocyte Esterase (Negative) Urine RBC (0-2) HPF Urine WBC (0-5) HPF Ur Epithelial Cells (Negative) HPF Urine Crystals (Negative) HPF Urine Bacteria (Negative) HPF Urine Casts (Negative) LPF Urine Mucus (Negative) Urine Other (Negative) Ur Culture Indicated? Urine Glucose (Negative) mg/dL Vancomycin Trough (10.0-20.0) ug/mL Urine Opiates Screen (Negative) Urine Methadone Screen (Negative) Ur Barbiturates Screen (Negative) Ur Tricyclics Screen (Negative) Ur Amphetamines Screen (Negative) U Benzodiazepines Scrn (Negative) Urine Cocaine Screen (Negative) Ur THC Screen (Negative) Ethyl Alcohol (<10) mg/dL COVID-19 Source SARS-CoV-2 (PCR) (Negative) Influenza Type A (PCR) (Negative) Influenza Type B (PCR) (Negative) Urine Legionella Ag (Negative) RSV (PCR) (Negative) Ur Strep pneumoniae Ag (Negative) Add-On Test Request Range/Units 05/17/22 05/17/22 05/17/22 05:15 05:15 05:50 WBC (4.4-10.8) 10^3/uL RBC (3.93-5.22) 10^6/uL Hgb (11.2-15.7) g/dL Hct (36.0-46.0) % MCV (80-95) fL MCH (27.0-33.0) pg MCHC (32.0-36.0) % RDW (11.7-14.6) % Plt Count (130-400) 10^3/uL MPV (8.0-11.0) fL Immature Gran % Neutrophils % Lymphocytes % Monocytes % Eosinophils % Basophils % Nucleated RBC % (0.0-0.3) % Absolute Neutrophils (1.2-6.7) 10^3/uL Absolute Lymphocytes (1.2-3.4) 10^3/uL Absolute Monocytes (0.1-0.8) 10^3/uL Absolute Eosinophils (0.0-0.7) 10^3/uL Absolute Basophils (0.0-0.2) 10^3/uL RBC Morphology Polychromasia Hypochromasia Basophilic Stippling PT (9.3-11.0) sec INR (0.9-1.1) APTT (21.0-27.5) sec D-Dimer (<500) ng/mlFEU ABG Sample Site ABG pH (7.35-7.45) ABG pCO2 (35-45) mmHg ABG pO2 (80-105) mmHg ABG HCO3 (22-26) mmol/L ABG Total CO2 (23-27) mmol/L ABG O2 Saturation (95-98) % ABG Base Excess (-2-3) mmol/L VBG pH (7.31-7.41) VBG pCO2 (41-51) mmHg VBG pO2 mmHg VBG HCO3 (23-28) mmol/L VBG Total CO2 (24-29) mmol/L VBG O2 Saturation % VBG Base Excess (-2-3) mmol/L VBG Lactate (0.6-1.4) mmol/L Oxygen Liter Flow FiO2 % Sodium (136-145) mmol/L Potassium (3.5-5.1) mmol/L Chloride (98-107) mmol/L Carbon Dioxide (21.0-32.0) mmol/L Anion Gap (3-11) mmol/L BUN (7-18) mg/dL Creatinine (0.55-1.02) mg/dL Est GFR (CKD-EPI 2020) (mL/min/1.73m2) Glucose (74-106) mg/dL Hemoglobin A1c (<5.7) % Calcium (8.5-10.1) mg/dL Phosphorus (2.6-4.7) mg/dL Magnesium (1.8-2.4) mg/dL Iron (50-170) ug/dL TIBC (250-450) ug/dL Ferritin (8-252) ng/mL Total Bilirubin (0.2-1.0) mg/dL AST (15-37) U/L ALT (14-59) U/L Alkaline Phosphatase (46-116) U/L Troponin I (<or=60) ng/L C-Reactive Protein (0.0-0.3) mg/dL NT-Pro-B Natriuret Pep (<300) pg/mL Total Protein (6.4-8.2) g/dL Albumin (3.4-5.0) g/dL Vitamin B12 (193-986) pg/mL 348 Folate (8.6-20.0) ng/mL > 20.0 H Procalcitonin ng/mL < 0.1 TSH (0.36-3.74) uIU/mL Urine Color (Yellow) Urine Clarity (Clear) Urine pH (5-8) Ur Specific [place] (1.005-1.025) Urine Protein (Negative) mg/dL Urine Ketones (Negative) mg/dL Urine Blood (Negative) Urine Nitrite (Negative) Urine Bilirubin (Negative) Urine Urobilinogen (Up TO 0.2) EU/dL Ur Leukocyte Esterase (Negative) Urine RBC (0-2) HPF Urine WBC (0-5) HPF Ur Epithelial Cells (Negative) HPF Urine Crystals (Negative) HPF Urine Bacteria (Negative) HPF Urine Casts (Negative) LPF Urine Mucus (Negative) Urine Other (Negative) Ur Culture Indicated? Urine Glucose (Negative) mg/dL Vancomycin Trough (10.0-20.0) ug/mL Urine Opiates Screen (Negative) Urine Methadone Screen (Negative) Ur Barbiturates Screen (Negative) Ur Tricyclics Screen (Negative) Ur Amphetamines Screen (Negative) U Benzodiazepines Scrn (Negative) Urine Cocaine Screen (Negative) Ur THC Screen (Negative) Ethyl Alcohol (<10) mg/dL COVID-19 Source SARS-CoV-2 (PCR) (Negative) Influenza Type A (PCR) (Negative) Influenza Type B (PCR) (Negative) Urine Legionella Ag (Negative) RSV (PCR) (Negative) Ur Strep pneumoniae Ag (Negative) Add-On Test Request DONE Range/Units 05/17/22 05/18/22 05/18/22 12:40 05:55 05:55 WBC (4.4-10.8) 10^3/uL 9.41 RBC (3.93-5.22) 10^6/uL 3.89 L Hgb (11.2-15.7) g/dL 9.8 L Hct (36.0-46.0) % 33.4 L MCV (80-95) fL 86 MCH (27.0-33.0) pg 25.2 L MCHC (32.0-36.0) % 29.3 L RDW (11.7-14.6) % 17.0 H Plt Count (130-400) 10^3/uL 301 MPV (8.0-11.0) fL 9.6 Immature Gran % 1.4 Neutrophils % 79.2 Lymphocytes % 7.4 Monocytes % 10.5 Eosinophils % 1.2 Basophils % 0.3 Nucleated RBC % (0.0-0.3) % 0.0 Absolute Neutrophils (1.2-6.7) 10^3/uL 7.45 H Absolute Lymphocytes (1.2-3.4) 10^3/uL 0.70 L Absolute Monocytes (0.1-0.8) 10^3/uL 0.99 H Absolute Eosinophils (0.0-0.7) 10^3/uL 0.11 Absolute Basophils (0.0-0.2) 10^3/uL 0.03 RBC Morphology Polychromasia Hypochromasia Basophilic Stippling PT (9.3-11.0) sec INR (0.9-1.1) APTT (21.0-27.5) sec D-Dimer (<500) ng/mlFEU ABG Sample Site Right Radial ABG pH (7.35-7.45) 7.48 H ABG pCO2 (35-45) mmHg 59 H ABG pO2 (80-105) mmHg 68 L ABG HCO3 (22-26) mmol/L 44 H ABG Total CO2 (23-27) mmol/L 41 H ABG O2 Saturation (95-98) % 94 L ABG Base Excess (-2-3) mmol/L > 15 H VBG pH (7.31-7.41) VBG pCO2 (41-51) mmHg VBG pO2 mmHg VBG HCO3 (23-28) mmol/L VBG Total CO2 (24-29) mmol/L VBG O2 Saturation % VBG Base Excess (-2-3) mmol/L VBG Lactate (0.6-1.4) mmol/L Oxygen Liter Flow 50 FiO2 % 35 Sodium (136-145) mmol/L 141 Potassium (3.5-5.1) mmol/L 3.4 L Chloride (98-107) mmol/L 98 Carbon Dioxide (21.0-32.0) mmol/L 38.8 H Anion Gap (3-11) mmol/L 4.2 BUN (7-18) mg/dL 23 H Creatinine (0.55-1.02) mg/dL 0.8 Est GFR (CKD-EPI 2020) (mL/min/1.73m2) 82.74 Glucose (74-106) mg/dL 91 Hemoglobin A1c (<5.7) % Calcium (8.5-10.1) mg/dL 9.2 Phosphorus (2.6-4.7) mg/dL Magnesium (1.8-2.4) mg/dL Iron (50-170) ug/dL TIBC (250-450) ug/dL Ferritin (8-252) ng/mL Total Bilirubin (0.2-1.0) mg/dL 0.6 AST (15-37) U/L 19 ALT (14-59) U/L 41 Alkaline Phosphatase (46-116) U/L 43 L Troponin I (<or=60) ng/L C-Reactive Protein (0.0-0.3) mg/dL 1.18 H NT-Pro-B Natriuret Pep (<300) pg/mL Total Protein (6.4-8.2) g/dL 6.0 L Albumin (3.4-5.0) g/dL 2.6 L Vitamin B12 (193-986) pg/mL Folate (8.6-20.0) ng/mL Procalcitonin ng/mL TSH (0.36-3.74) uIU/mL Urine Color (Yellow) Urine Clarity (Clear) Urine pH (5-8) Ur Specific [place] (1.005-1.025) Urine Protein (Negative) mg/dL Urine Ketones (Negative) mg/dL Urine Blood (Negative) Urine Nitrite (Negative) Urine Bilirubin (Negative) Urine Urobilinogen (Up TO 0.2) EU/dL Ur Leukocyte Esterase (Negative) Urine RBC (0-2) HPF Urine WBC (0-5) HPF Ur Epithelial Cells (Negative) HPF Urine Crystals (Negative) HPF Urine Bacteria (Negative) HPF Urine Casts (Negative) LPF Urine Mucus (Negative) Urine Other (Negative) Ur Culture Indicated? Urine Glucose (Negative) mg/dL Vancomycin Trough (10.0-20.0) ug/mL Urine Opiates Screen (Negative) Urine Methadone Screen (Negative) Ur Barbiturates Screen (Negative) Ur Tricyclics Screen (Negative) Ur Amphetamines Screen (Negative) U Benzodiazepines Scrn (Negative) Urine Cocaine Screen (Negative) Ur THC Screen (Negative) Ethyl Alcohol (<10) mg/dL COVID-19 Source SARS-CoV-2 (PCR) (Negative) Influenza Type A (PCR) (Negative) Influenza Type B (PCR) (Negative) Urine Legionella Ag (Negative) RSV (PCR) (Negative) Ur Strep pneumoniae Ag (Negative) Add-On Test Request Range/Units 05/18/22 05/18/22 05/18/22 05:55 05:55 11:00 WBC (4.4-10.8) 10^3/uL RBC (3.93-5.22) 10^6/uL Hgb (11.2-15.7) g/dL Hct (36.0-46.0) % MCV (80-95) fL MCH (27.0-33.0) pg MCHC (32.0-36.0) % RDW (11.7-14.6) % Plt Count (130-400) 10^3/uL MPV (8.0-11.0) fL Immature Gran % Neutrophils % Lymphocytes % Monocytes % Eosinophils % Basophils % Nucleated RBC % (0.0-0.3) % Absolute Neutrophils (1.2-6.7) 10^3/uL Absolute Lymphocytes (1.2-3.4) 10^3/uL Absolute Monocytes (0.1-0.8) 10^3/uL Absolute Eosinophils (0.0-0.7) 10^3/uL Absolute Basophils (0.0-0.2) 10^3/uL RBC Morphology Polychromasia Hypochromasia Basophilic Stippling PT (9.3-11.0) sec INR (0.9-1.1) APTT (21.0-27.5) sec D-Dimer (<500) ng/mlFEU ABG Sample Site ABG pH (7.35-7.45) ABG pCO2 (35-45) mmHg ABG pO2 (80-105) mmHg ABG HCO3 (22-26) mmol/L ABG Total CO2 (23-27) mmol/L ABG O2 Saturation (95-98) % ABG Base Excess (-2-3) mmol/L VBG pH (7.31-7.41) VBG pCO2 (41-51) mmHg VBG pO2 mmHg VBG HCO3 (23-28) mmol/L VBG Total CO2 (24-29) mmol/L VBG O2 Saturation % VBG Base Excess (-2-3) mmol/L VBG Lactate (0.6-1.4) mmol/L Oxygen Liter Flow FiO2 % Sodium (136-145) mmol/L Potassium (3.5-5.1) mmol/L Chloride (98-107) mmol/L Carbon Dioxide (21.0-32.0) mmol/L Anion Gap (3-11) mmol/L BUN (7-18) mg/dL Creatinine (0.55-1.02) mg/dL Est GFR (CKD-EPI 2020) (mL/min/1.73m2) Glucose (74-106) mg/dL Hemoglobin A1c (<5.7) % Calcium (8.5-10.1) mg/dL Phosphorus (2.6-4.7) mg/dL Magnesium (1.8-2.4) mg/dL 1.6 L Iron (50-170) ug/dL TIBC (250-450) ug/dL Ferritin (8-252) ng/mL Total Bilirubin (0.2-1.0) mg/dL AST (15-37) U/L ALT (14-59) U/L Alkaline Phosphatase (46-116) U/L Troponin I (<or=60) ng/L C-Reactive Protein (0.0-0.3) mg/dL NT-Pro-B Natriuret Pep (<300) pg/mL Total Protein (6.4-8.2) g/dL Albumin (3.4-5.0) g/dL Vitamin B12 (193-986) pg/mL Folate (8.6-20.0) ng/mL Procalcitonin ng/mL TSH (0.36-3.74) uIU/mL Urine Color (Yellow) Urine Clarity (Clear) Urine pH (5-8) Ur Specific [place] (1.005-1.025) Urine Protein (Negative) mg/dL Urine Ketones (Negative) mg/dL Urine Blood (Negative) Urine Nitrite (Negative) Urine Bilirubin (Negative) Urine Urobilinogen (Up TO 0.2) EU/dL Ur Leukocyte Esterase (Negative) Urine RBC (0-2) HPF Urine WBC (0-5) HPF Ur Epithelial Cells (Negative) HPF Urine Crystals (Negative) HPF Urine Bacteria (Negative) HPF Urine Casts (Negative) LPF Urine Mucus (Negative) Urine Other (Negative) Ur Culture Indicated? Urine Glucose (Negative) mg/dL Vancomycin Trough (10.0-20.0) ug/mL 14.5 Urine Opiates Screen (Negative) Urine Methadone Screen (Negative) Ur Barbiturates Screen (Negative) Ur Tricyclics Screen (Negative) Ur Amphetamines Screen (Negative) U Benzodiazepines Scrn (Negative) Urine Cocaine Screen (Negative) Ur THC Screen (Negative) Ethyl Alcohol (<10) mg/dL COVID-19 Source SARS-CoV-2 (PCR) (Negative) Influenza Type A (PCR) (Negative) Influenza Type B (PCR) (Negative) Urine Legionella Ag (Negative) RSV (PCR) (Negative) Ur Strep pneumoniae Ag (Negative) Add-On Test Request DONE Range/Units 05/19/22 05/19/22 05/19/22 05:20 05:20 05:20 WBC (4.4-10.8) 10^3/uL 9.12 RBC (3.93-5.22) 10^6/uL 3.96 Hgb (11.2-15.7) g/dL 9.8 L Hct (36.0-46.0) % 34.7 L MCV (80-95) fL 88 MCH (27.0-33.0) pg 24.7 L MCHC (32.0-36.0) % 28.2 L RDW (11.7-14.6) % 17.0 H Plt Count (130-400) 10^3/uL 280 MPV (8.0-11.0) fL 9.7 Immature Gran % 1.9 Neutrophils % 77.3 Lymphocytes % 7.2 Monocytes % 9.6 Eosinophils % 3.6 Basophils % 0.4 Nucleated RBC % (0.0-0.3) % 0.0 Absolute Neutrophils (1.2-6.7) 10^3/uL 7.04 H Absolute Lymphocytes (1.2-3.4) 10^3/uL 0.66 L Absolute Monocytes (0.1-0.8) 10^3/uL 0.88 H Absolute Eosinophils (0.0-0.7) 10^3/uL 0.33 Absolute Basophils (0.0-0.2) 10^3/uL 0.04 RBC Morphology Polychromasia Hypochromasia Basophilic Stippling PT (9.3-11.0) sec INR (0.9-1.1) APTT (21.0-27.5) sec D-Dimer (<500) ng/mlFEU ABG Sample Site ABG pH (7.35-7.45) ABG pCO2 (35-45) mmHg ABG pO2 (80-105) mmHg ABG HCO3 (22-26) mmol/L ABG Total CO2 (23-27) mmol/L ABG O2 Saturation (95-98) % ABG Base Excess (-2-3) mmol/L VBG pH (7.31-7.41) VBG pCO2 (41-51) mmHg VBG pO2 mmHg VBG HCO3 (23-28) mmol/L VBG Total CO2 (24-29) mmol/L VBG O2 Saturation % VBG Base Excess (-2-3) mmol/L VBG Lactate (0.6-1.4) mmol/L Oxygen Liter Flow FiO2 % Sodium (136-145) mmol/L 141 Potassium (3.5-5.1) mmol/L 3.8 Chloride (98-107) mmol/L 100 Carbon Dioxide (21.0-32.0) mmol/L 39.0 H Anion Gap (3-11) mmol/L 2.0 L BUN (7-18) mg/dL 21 H Creatinine (0.55-1.02) mg/dL 0.9 Est GFR (CKD-EPI 2020) (mL/min/1.73m2) 71.83 Glucose (74-106) mg/dL 100 Hemoglobin A1c (<5.7) % Calcium (8.5-10.1) mg/dL 9.0 Phosphorus (2.6-4.7) mg/dL Magnesium (1.8-2.4) mg/dL Iron (50-170) ug/dL TIBC (250-450) ug/dL Ferritin (8-252) ng/mL Total Bilirubin (0.2-1.0) mg/dL 0.5 AST (15-37) U/L 22 ALT (14-59) U/L 39 Alkaline Phosphatase (46-116) U/L 42 L Troponin I (<or=60) ng/L C-Reactive Protein (0.0-0.3) mg/dL NT-Pro-B Natriuret Pep (<300) pg/mL Total Protein (6.4-8.2) g/dL 5.9 L Albumin (3.4-5.0) g/dL 2.7 L Vitamin B12 (193-986) pg/mL Folate (8.6-20.0) ng/mL Procalcitonin ng/mL TSH (0.36-3.74) uIU/mL Urine Color (Yellow) Urine Clarity (Clear) Urine pH (5-8) Ur Specific [place] (1.005-1.025) Urine Protein (Negative) mg/dL Urine Ketones (Negative) mg/dL Urine Blood (Negative) Urine Nitrite (Negative) Urine Bilirubin (Negative) Urine Urobilinogen (Up TO 0.2) EU/dL Ur Leukocyte Esterase (Negative) Urine RBC (0-2) HPF Urine WBC (0-5) HPF Ur Epithelial Cells (Negative) HPF Urine Crystals (Negative) HPF Urine Bacteria (Negative) HPF Urine Casts (Negative) LPF Urine Mucus (Negative) Urine Other (Negative) Ur Culture Indicated? Urine Glucose (Negative) mg/dL Vancomycin Trough (10.0-20.0) ug/mL Urine Opiates Screen (Negative) Urine Methadone Screen (Negative) Ur Barbiturates Screen (Negative) Ur Tricyclics Screen (Negative) Ur Amphetamines Screen (Negative) U Benzodiazepines Scrn (Negative) Urine Cocaine Screen (Negative) Ur THC Screen (Negative) Ethyl Alcohol (<10) mg/dL COVID-19 Source SARS-CoV-2 (PCR) (Negative) Influenza Type A (PCR) (Negative) Influenza Type B (PCR) (Negative) Urine Legionella Ag (Negative) RSV (PCR) (Negative) Ur Strep pneumoniae Ag (Negative) Add-On Test Request TNP Range/Units 05/19/22 05/19/22 05/19/22 05:20 05:20 12:40 WBC (4.4-10.8) 10^3/uL RBC (3.93-5.22) 10^6/uL Hgb (11.2-15.7) g/dL Hct (36.0-46.0) % MCV (80-95) fL MCH (27.0-33.0) pg MCHC (32.0-36.0) % RDW (11.7-14.6) % Plt Count (130-400) 10^3/uL MPV (8.0-11.0) fL Immature Gran % Neutrophils % Lymphocytes % Monocytes % Eosinophils % Basophils % Nucleated RBC % (0.0-0.3) % Absolute Neutrophils (1.2-6.7) 10^3/uL Absolute Lymphocytes (1.2-3.4) 10^3/uL Absolute Monocytes (0.1-0.8) 10^3/uL Absolute Eosinophils (0.0-0.7) 10^3/uL Absolute Basophils (0.0-0.2) 10^3/uL RBC Morphology Polychromasia Hypochromasia Basophilic Stippling PT (9.3-11.0) sec INR (0.9-1.1) APTT (21.0-27.5) sec D-Dimer (<500) ng/mlFEU ABG Sample Site ABG pH (7.35-7.45) ABG pCO2 (35-45) mmHg ABG pO2 (80-105) mmHg ABG HCO3 (22-26) mmol/L ABG Total CO2 (23-27) mmol/L ABG O2 Saturation (95-98) % ABG Base Excess (-2-3) mmol/L VBG pH (7.31-7.41) VBG pCO2 (41-51) mmHg VBG pO2 mmHg VBG HCO3 (23-28) mmol/L VBG Total CO2 (24-29) mmol/L VBG O2 Saturation % VBG Base Excess (-2-3) mmol/L VBG Lactate (0.6-1.4) mmol/L Oxygen Liter Flow FiO2 % Sodium (136-145) mmol/L Potassium (3.5-5.1) mmol/L Chloride (98-107) mmol/L Carbon Dioxide (21.0-32.0) mmol/L Anion Gap (3-11) mmol/L BUN (7-18) mg/dL Creatinine (0.55-1.02) mg/dL Est GFR (CKD-EPI 2020) (mL/min/1.73m2) Glucose (74-106) mg/dL Hemoglobin A1c (<5.7) % Calcium (8.5-10.1) mg/dL Phosphorus (2.6-4.7) mg/dL Magnesium (1.8-2.4) mg/dL Iron (50-170) ug/dL 35 L TIBC (250-450) ug/dL 580 H Ferritin (8-252) ng/mL 31 Total Bilirubin (0.2-1.0) mg/dL AST (15-37) U/L ALT (14-59) U/L Alkaline Phosphatase (46-116) U/L Troponin I (<or=60) ng/L C-Reactive Protein (0.0-0.3) mg/dL NT-Pro-B Natriuret Pep (<300) pg/mL Total Protein (6.4-8.2) g/dL Albumin (3.4-5.0) g/dL Vitamin B12 (193-986) pg/mL Folate (8.6-20.0) ng/mL Procalcitonin ng/mL TSH (0.36-3.74) uIU/mL Urine Color (Yellow) Urine Clarity (Clear) Urine pH (5-8) Ur Specific [place] (1.005-1.025) Urine Protein (Negative) mg/dL Urine Ketones (Negative) mg/dL Urine Blood (Negative) Urine Nitrite (Negative) Urine Bilirubin (Negative) Urine Urobilinogen (Up TO 0.2) EU/dL Ur Leukocyte Esterase (Negative) Urine RBC (0-2) HPF Urine WBC (0-5) HPF Ur Epithelial Cells (Negative) HPF Urine Crystals (Negative) HPF Urine Bacteria (Negative) HPF Urine Casts (Negative) LPF Urine Mucus (Negative) Urine Other (Negative) Ur Culture Indicated? Urine Glucose (Negative) mg/dL Vancomycin Trough (10.0-20.0) ug/mL Urine Opiates Screen (Negative) Urine Methadone Screen (Negative) Ur Barbiturates Screen (Negative) Ur Tricyclics Screen (Negative) Ur Amphetamines Screen (Negative) U Benzodiazepines Scrn (Negative) Urine Cocaine Screen (Negative) Ur THC Screen (Negative) Ethyl Alcohol (<10) mg/dL COVID-19 Source SARS-CoV-2 (PCR) (Negative) Influenza Type A (PCR) (Negative) Influenza Type B (PCR) (Negative) Urine Legionella Ag (Negative) RSV (PCR) (Negative) Ur Strep pneumoniae Ag (Negative) Add-On Test Request Range/Units 05/20/22 05/21/22 05/21/22 06:15 06:25 06:25 WBC (4.4-10.8) 10^3/uL RBC (3.93-5.22) 10^6/uL Hgb (11.2-15.7) g/dL Hct (36.0-46.0) % MCV (80-95) fL MCH (27.0-33.0) pg MCHC (32.0-36.0) % RDW (11.7-14.6) % Plt Count (130-400) 10^3/uL MPV (8.0-11.0) fL Immature Gran % Neutrophils % Lymphocytes % Monocytes % Eosinophils % Basophils % Nucleated RBC % (0.0-0.3) % Absolute Neutrophils (1.2-6.7) 10^3/uL Absolute Lymphocytes (1.2-3.4) 10^3/uL Absolute Monocytes (0.1-0.8) 10^3/uL Absolute Eosinophils (0.0-0.7) 10^3/uL Absolute Basophils (0.0-0.2) 10^3/uL RBC Morphology Polychromasia Hypochromasia Basophilic Stippling PT (9.3-11.0) sec INR (0.9-1.1) APTT (21.0-27.5) sec D-Dimer (<500) ng/mlFEU ABG Sample Site ABG pH (7.35-7.45) ABG pCO2 (35-45) mmHg ABG pO2 (80-105) mmHg ABG HCO3 (22-26) mmol/L ABG Total CO2 (23-27) mmol/L ABG O2 Saturation (95-98) % ABG Base Excess (-2-3) mmol/L VBG pH (7.31-7.41) VBG pCO2 (41-51) mmHg VBG pO2 mmHg VBG HCO3 (23-28) mmol/L VBG Total CO2 (24-29) mmol/L VBG O2 Saturation % VBG Base Excess (-2-3) mmol/L VBG Lactate (0.6-1.4) mmol/L Oxygen Liter Flow FiO2 % Sodium (136-145) mmol/L 142 141 Potassium (3.5-5.1) mmol/L 4.0 4.4 Chloride (98-107) mmol/L 99 99 Carbon Dioxide (21.0-32.0) mmol/L 41.5 H 41.5 H Anion Gap (3-11) mmol/L 1.5 L 0.5 L BUN (7-18) mg/dL 19 H 18 Creatinine (0.55-1.02) mg/dL 0.9 0.7 Est GFR (CKD-EPI 2020) (mL/min/1.73m2) 71.83 97.12 Glucose (74-106) mg/dL 102 100 Hemoglobin A1c (<5.7) % Calcium (8.5-10.1) mg/dL 9.1 9.0 Phosphorus (2.6-4.7) mg/dL Magnesium (1.8-2.4) mg/dL Iron (50-170) ug/dL TIBC (250-450) ug/dL Ferritin (8-252) ng/mL Total Bilirubin (0.2-1.0) mg/dL AST (15-37) U/L ALT (14-59) U/L Alkaline Phosphatase (46-116) U/L Troponin I (<or=60) ng/L C-Reactive Protein (0.0-0.3) mg/dL NT-Pro-B Natriuret Pep (<300) pg/mL Total Protein (6.4-8.2) g/dL Albumin (3.4-5.0) g/dL Vitamin B12 (193-986) pg/mL Folate (8.6-20.0) ng/mL Procalcitonin ng/mL TSH (0.36-3.74) uIU/mL Urine Color (Yellow) Urine Clarity (Clear) Urine pH (5-8) Ur Specific [place] (1.005-1.025) Urine Protein (Negative) mg/dL Urine Ketones (Negative) mg/dL Urine Blood (Negative) Urine Nitrite (Negative) Urine Bilirubin (Negative) Urine Urobilinogen (Up TO 0.2) EU/dL Ur Leukocyte Esterase (Negative) Urine RBC (0-2) HPF Urine WBC (0-5) HPF Ur Epithelial Cells (Negative) HPF Urine Crystals (Negative) HPF Urine Bacteria (Negative) HPF Urine Casts (Negative) LPF Urine Mucus (Negative) Urine Other (Negative) Ur Culture Indicated? Urine Glucose (Negative) mg/dL Vancomycin Trough (10.0-20.0) ug/mL Urine Opiates Screen (Negative) Urine Methadone Screen (Negative) Ur Barbiturates Screen (Negative) Ur Tricyclics Screen (Negative) Ur Amphetamines Screen (Negative) U Benzodiazepines Scrn (Negative) Urine Cocaine Screen (Negative) Ur THC Screen (Negative) Ethyl Alcohol (<10) mg/dL COVID-19 Source SARS-CoV-2 (PCR) (Negative) Influenza Type A (PCR) (Negative) Influenza Type B (PCR) (Negative) Urine Legionella Ag (Negative) RSV (PCR) (Negative) Ur Strep pneumoniae Ag (Negative) Add-On Test Request DONE Range/Units 05/21/22 05/22/22 05/22/22 06:25 06:00 06:00 WBC (4.4-10.8) 10^3/uL 9.33 RBC (3.93-5.22) 10^6/uL 4.00 Hgb (11.2-15.7) g/dL 10.2 L Hct (36.0-46.0) % 34.5 L MCV (80-95) fL 86 MCH (27.0-33.0) pg 25.5 L MCHC (32.0-36.0) % 29.6 L RDW (11.7-14.6) % 17.2 H Plt Count (130-400) 10^3/uL 248 MPV (8.0-11.0) fL 9.8 Immature Gran % 1.1 Neutrophils % 84.5 Lymphocytes % 5.9 Monocytes % 7.3 Eosinophils % 0.8 Basophils % 0.4 Nucleated RBC % (0.0-0.3) % 0.0 Absolute Neutrophils (1.2-6.7) 10^3/uL 7.89 H Absolute Lymphocytes (1.2-3.4) 10^3/uL 0.55 L Absolute Monocytes (0.1-0.8) 10^3/uL 0.68 Absolute Eosinophils (0.0-0.7) 10^3/uL 0.07 Absolute Basophils (0.0-0.2) 10^3/uL 0.04 RBC Morphology Polychromasia Hypochromasia Basophilic Stippling PT (9.3-11.0) sec INR (0.9-1.1) APTT (21.0-27.5) sec D-Dimer (<500) ng/mlFEU ABG Sample Site ABG pH (7.35-7.45) ABG pCO2 (35-45) mmHg ABG pO2 (80-105) mmHg ABG HCO3 (22-26) mmol/L ABG Total CO2 (23-27) mmol/L ABG O2 Saturation (95-98) % ABG Base Excess (-2-3) mmol/L VBG pH (7.31-7.41) VBG pCO2 (41-51) mmHg VBG pO2 mmHg VBG HCO3 (23-28) mmol/L VBG Total CO2 (24-29) mmol/L VBG O2 Saturation % VBG Base Excess (-2-3) mmol/L VBG Lactate (0.6-1.4) mmol/L Oxygen Liter Flow FiO2 % Sodium (136-145) mmol/L 140 Potassium (3.5-5.1) mmol/L 4.0 Chloride (98-107) mmol/L 96 L Carbon Dioxide (21.0-32.0) mmol/L 42.6 H Anion Gap (3-11) mmol/L 1.4 L BUN (7-18) mg/dL 19 H Creatinine (0.55-1.02) mg/dL 1.0 Est GFR (CKD-EPI 2020) (mL/min/1.73m2) 63.30 Glucose (74-106) mg/dL 96 Hemoglobin A1c (<5.7) % 5.7 Calcium (8.5-10.1) mg/dL 8.9 Phosphorus (2.6-4.7) mg/dL Magnesium (1.8-2.4) mg/dL 1.8 Iron (50-170) ug/dL TIBC (250-450) ug/dL Ferritin (8-252) ng/mL Total Bilirubin (0.2-1.0) mg/dL 0.6 AST (15-37) U/L 40 H ALT (14-59) U/L 76 H Alkaline Phosphatase (46-116) U/L 50 Troponin I (<or=60) ng/L C-Reactive Protein (0.0-0.3) mg/dL NT-Pro-B Natriuret Pep (<300) pg/mL Total Protein (6.4-8.2) g/dL 6.4 Albumin (3.4-5.0) g/dL 3.1 L Vitamin B12 (193-986) pg/mL Folate (8.6-20.0) ng/mL Procalcitonin ng/mL TSH (0.36-3.74) uIU/mL Urine Color (Yellow) Urine Clarity (Clear) Urine pH (5-8) Ur Specific [place] (1.005-1.025) Urine Protein (Negative) mg/dL Urine Ketones (Negative) mg/dL Urine Blood (Negative) Urine Nitrite (Negative) Urine Bilirubin (Negative) Urine Urobilinogen (Up TO 0.2) EU/dL Ur Leukocyte Esterase (Negative) Urine RBC (0-2) HPF Urine WBC (0-5) HPF Ur Epithelial Cells (Negative) HPF Urine Crystals (Negative) HPF Urine Bacteria (Negative) HPF Urine Casts (Negative) LPF Urine Mucus (Negative) Urine Other (Negative) Ur Culture Indicated? Urine Glucose (Negative) mg/dL Vancomycin Trough (10.0-20.0) ug/mL Urine Opiates Screen (Negative) Urine Methadone Screen (Negative) Ur Barbiturates Screen (Negative) Ur Tricyclics Screen (Negative) Ur Amphetamines Screen (Negative) U Benzodiazepines Scrn (Negative) Urine Cocaine Screen (Negative) Ur THC Screen (Negative) Ethyl Alcohol (<10) mg/dL COVID-19 Source SARS-CoV-2 (PCR) (Negative) Influenza Type A (PCR) (Negative) Influenza Type B (PCR) (Negative) Urine Legionella Ag (Negative) RSV (PCR) (Negative) Ur Strep pneumoniae Ag (Negative) Add-On Test Request
--- NOTE | 2022-05-23 11:31 | PDOC.CMPRO ---
- If Service Date Differs Date of service: 05/23/22 Time of Service: 11:31 Care Management Progress Note S/O: Елена was sitting up in her chair when CM met with her. Елена was thinking about going to short term rehab prior to returning home, however she is only open to going to [facility] they don't manage [facility] there. In addition, RT stated that her Trilogy is approved for home use so going to a SNF may be a barrier. Елена stated that she would prefer to return home with the Triology vs going to SNF without it. Patient has asked her Daughter Evonne to stop by later to help her complete a financial assistance application for [facility]. CM will continue to follow. A: Deepthi is a 61 female admitted to [facility] on 05/10/22 P: Елена is being closely monitored at ICU level of care. She will likely be discharged home when medically cleared by MD, with a resumption of HH RN. She will follow up with her PCP and plan of care and transport with family. CM will continue to assess and support identified discharge needs.
[2022-05-23] MEDS: VANCOMYCIN 750 MG in Normal Saline 250 ML 166.6 MG IVPB (11:46)
[2022-05-23] MEDS: Normal Saline 500 ML 30 ML IV (11:46)
--- NOTE | 2022-05-23 12:30 | W.SPSTP ---
Date of service: 05/23/22 Time of Service: 12:30 Subjective Елена was contacted at the end of her lunch meal this date, sitting upright in her chair. She reports feeling very, very tired this date. She says she didn't get very much sleep. Interim updates: O2 via NC 1.5-2 L without telemetry this date, appears to tolerate at rest. She continues with somewhat low PO intake in setting of fatigue. Oral care was provided with SUPERVISOR ACCOUNTS RECEIVABLE assist prior to PO trials this date. Patient has not done any oral care since yesterday. Objective/Assessment/Plan Objective Treatment Techniques & Outcomes: SHORT TERM GOALS: 1. Patient will tolerate baseline diet without s/sx aspiration. IN PROGRESS: PO Trials: Patient trialed upgraded solids with SUPERVISOR ACCOUNTS RECEIVABLE this date. Regular solids: Paramjit cracker with honey Thin liquids: Via cup x 10 sips No s/sx aspiration, though patient with mild wet/vibratory breathing sounds at baseline on exhale. Patient does appear with notably increased WOB with solids and in between. Remains with intermittent open mouth posture and audible/visible heavy breathing while with food in mouth during mastication, though improved over prior. 2. Patient/caregiver will be independent with swallow strategies and risk management strategies. IN PROGRESS: Independently with slow rate, small bites, breathing breaks during PO trials. Provided repeat education r/t rationale for increased frequency oral care this date. Patient verbalized understanding Updated white board to reflect current recommendations Patient/Caregiver/Staff Education: See objective above. Provided updated recommendations and rationale for below recommendations with RN/DIGITAL CARTOGRAPHER as well this date. Assessment Given patient's current endorsed and observed fatigue level and increased WOB during very limited trials this date, plan to hold off on upgrading diet at this time to reduce risk of aspiration/choking. Plan to re-contact patient tomorrow with trial tray of upgraded diet to assess tolerance if she is feeling better. 1:1 feeding assist is still recommended to maximize PO intake and minimize work of breathing. Plan Plan: SUPERVISOR ACCOUNTS RECEIVABLE to follow patient while on unit to monitor for diet tolerance, provide education, and trial upgraded textures. Recommendations Recommendations: IDDSI Level(s) SOLIDS 5-Minced & Moist Solids LIQUIDS 0-Thin Liquids ? ? PO intake risk management as outlined Medication Intake: Whole with 4-Extremely Thick Liquids RISK MANAGEMENT: HOB upright as tolerated; upright for all PO intake. Encourage physical mobility as tolerated. Oral hygiene q4h/every 4 hours, before/after PO intake, using friction with toothbrush on all oral structures as tolerated ? Level of Assistance/Supervision: 1:1 Assistive feeding only by trained staff/family PO intake only when awake/alert? Strategies/Adaptations/Assistive Equipment: Reduce auditory and/or visual distractions when eating, Provide verbal and/or visual cues to use recommended strategies, Small sips and bites when eating, Slow rate of intake, Small+frequent meals throughout day Posture/Positioning Needs: Maintain upright position at least 30 minutes after meals, Avoid meals/snacks 2-3 hours prior to reclining/sleeping, Sleep with head of bed elevated to reduce likelihood of nocturnal reflux, Other Total Time Spent: 25 min 93620 swallow treatment Coding
--- NOTE | 2022-05-23 12:32 | PT.INTREAT ---
Date of service: 05/23/22 Time of Service: 09:06 PT Notes Visit Reasons: Hypoxemic/Hypercarbic Respiratory Failure,Seizure Inpatient Physical Therapy Treatment Note [facility] Date: 05/23/2022 PRECAUTIONS: Activity as tolerated SUBJECTIVE: Елена is pleasant and agreeable to participating in PT. She reports that she is not feeling well today. OBJECTIVE: PAIN: No c/o pain BED MOBILITY/TRANSFERS Sit-stand: SBA Stand-sit: SBA GAIT Assistive Device: FWW Weight bearing: Full Assist: SBA Distance: 15' x2 in a.m.; 15' x2 in p.m. Deviation: Seated rest, SOB, increased fatigue, 3L O2 THEREX: Patient was instructed in a LE strengthening program, completed in a seated position, to include: ankle pumps, LAQ, hip flexion and hip abduction. TOILETING: Patient toileted with SBA for transfers ASSESSMENT: Patient tolerated session with complaint of increased global fatigue and SOB with all activity. She continues to demonstrate limited activity tolerance. PLAN: Continue with global strengthening and gait training for improved activity tolerance. TREATMENT CODE/TIME: Session 1: 24 minutes; 44457 x2 (09:06) Session 2: 24 minutes; [id number], [id number] (14:08)
--- NOTE | 2022-05-23 13:12 | W.PM.PROGNOT ---
Date of Service Date of service: 05/23/22 Time of Service: 13:12 Assessment and Plan Assessment and plan (1) Acute and chronic respiratory failure: Status: Acute Assessment and plan: Generally improving. Now on regular NC @ 1.5 - 2.5 LPM. Continue her LAMA/LABA (Stiolot Respimat) and her ICS (Asmanex) along w/ prn bronchodilator updrafts; cont. use of I.S. Encourage inreased activity. Continue P.T. to improve her strength. Patient now approved for her Trilogy device. She and daughter will meet with [facility] to be trained on the device. Qualifiers: Respiratory failure complication: hypoxia and hypercapnia Qualified Code(s): J96.21 - Acute and chronic respiratory failure with hypoxia; J96.22 - Acute and chronic respiratory failure with hypercapnia (2) COPD (chronic obstructive pulmonary disease): Status: Chronic Assessment and plan: as above for respiratory failure Qualifiers: COPD type: COPD with acute exacerbation Qualified Code(s): J44.1 - Chronic obstructive pulmonary disease with (acute) exacerbation (3) Central line infection: Status: Suspected Assessment and plan: CVC tip grew GP zari and one blood culture grew Bacillus species. Patient is on Vancomycin (Through 05/25). Repeat blood cx negative x 72H. (4) Paroxysmal atrial fibrillation with rapid ventricular response: Status: Acute Assessment and plan: Remains in NSR, rhythm control w/ amiodarone and rate controlled w/ metoprolol. patient anticoagulated w/ apixaban. She is still on the loading doses of her amiodarone through 05/26 afterwards she should go down to 200 mg daily. (5) Peripheral arterial occlusive disease: Status: Chronic Assessment and plan: Aortogram w/ bilateral lower extremity runoff was done on 05/16 and demonstrated bilateral disease w/ R SFA occlusion w/ reconstitution via profunda collaterals but also has R posterior tibial occlusion; left side w/ multilevel disease but has good 3 vessel runoff at the calf. Due to her having ischemic of the left great toe for several days, she was placed on aspirin therapy along w/ her apixaban. She is on a PPI for GI protection from bleeding. (6) Elevated troponin I level: Status: Acute Assessment and plan: type II demand ischemia; preserved LV and RV function per echo 10/26 (7) (HFpEF) heart failure with preserved ejection fraction: Status: Chronic Assessment and plan: Lasix resumed per pulmonary service who feels that she will need lifelong diuretics. Also now on spironolactone to reduce her need for potassium and to help w/ diuretic control. Will decrease torsemide to 10 mg daily. Will continue to monitor her BMP (8) Anemia: Status: Chronic Assessment and plan: she has iron deficiency anemia. Serum iron is 35 w/ high TIBC 580, lower normal level of ferritin 31. I will put her on ferrous sulfate 325 mg bid along w/ vitamin C for absorption given her need for a PPI. (9) Seizure: Status: Suspected Assessment and plan: brain MRI ordered but not done. Hopefully will get on Sunday. If no evidence for CVA then can dc elena (10) DVT prophylaxis: Status: Acute Assessment and plan: now on apixaban (11) Discharge planning issues: Status: Acute Assessment and plan: Full code As per Dr Wu; she has indicated that she does not want to be reintubated. Palliative care met w/ the patient last week and completed a COLST form indicating that she wanted a short trial of reintubation in the event of acute respiratory failure. I do not believe this is actually her current wishes. I think that this should be re-visited w/ the patient and her family involvement and that hospital medicine should be involved in this discussion. She is now on med/surg and progressing. If she continues to improve then she could potentially be discharged mid week. disposition will depend on P.T. recommendations for inpatient skilled vs home health. She is agreeable to SNF for rehab. (12) Carotid artery occlusion: Status: Acute Assessment and plan: Noted on MRI at time of admission; evaluating for possible seizure. CTA head/neck also showed occlusion of entire length of right internal carotid artery. Otherwise, CTA head unremarkable. No occlusion or significant stenosis of the CT angiography of the neck. Subjective Subjective Patient reports: no new complaints, tolerating a regular diet, shortness of breath (with ambulation. ) and afebrile; denies nausea or vomiting Exam Narrative Exam Narrative: Gen: Sitting in recliner. Lungs: clear anteriorly. Diminished. Mild SOA with conversation. Heart: regular w/out murmur Abdomen: soft, nontender; normal bowel sounds Exts: Trace of pedal and pretibial edema. No calf tenderness. Psych: affect is blunted. Oriented x 3. Objective Last Vital Signs Temp 37 C 05/23/22 11:15 Pulse 74 05/23/22 11:15 Resp 22 05/23/22 11:15 BP 163/92 H 05/23/22 11:15 Pulse Ox 94 05/23/22 11:15
[2022-05-23] MEDS: Levalbuterol 1.25 MG/3 ML UPD VIAL UPD ×2 (13:45→22:41)
--- NOTE | 2022-05-23 16:40 | W.PM.PROGNOT ---
Date of Service Date of service: 05/23/22 Time of Service: 16:40 Assessment and Plan Assessment and plan (1) Carotid artery occlusion: Status: Acute (2) Altered mental status: Status: Acute Assessment and plan: Patient with AMS in setting of hypoxemia and hypercapnea presumed to be secondary to CHF exacerbation. She was noted to have a tongue laceration on initial exam and thus concerns raised for possible seizure activity prior to arrival. Then with diffuse twitching, subtle myoclonus while intubated - captured on EEG with no epileptiform activity - so likely metabolic - and now resolved. Extubation delayed due to afib with RVR - now on heparin; also concern for L leg ischemia. LEV stopped following brain MRI and with no further events/significant risk factors. Also, she has R ICA occlusion in addition to PAD. She should continue aspirin 81mg daily indefinitely. Consider updated lipid panel + statin. No need for neurology follow-up at this time. Please call with any further questions or concerns. Subjective Subjective Interval history since last seen: Doing well. Tired. Getting set up with Trilogy this evening when I was in her room. -CTA head/neck (05/23/22): R ICA occlusion from the bifurcation. I reviewed these images personally and this is my personal interpretation. Exam Narrative Exam Narrative: Physical Exam: Constitutional: Patient of apparent stated age, well nourished, well developed, no acute distress Extrem: Mottling/purpling L ball of foot Neuro: MS/Language/Speech: Alert, awake, following commands; mild dysarthria Coordination: no ataxia Objective Last Vital Signs Temp 98.2 F 05/23/22 15:38 Pulse 71 05/23/22 15:38 Resp 22 05/23/22 15:38 BP 157/97 H 05/23/22 15:38 Pulse Ox 95 05/23/22 15:38
[2022-05-23] MEDS: Metoprolol CR 100 MG TABCR 200 MG PO (22:22)
[2022-05-23] MEDS: Melatonin 3 MG TAB 6 MG PO (22:22)
[2022-05-23] MEDS: LORazepam 0.5 MG TAB PO (22:22)
[2022-05-24] VITALS (16 sets, daily range): BP systolic 129–146; BP diastolic 76–91; PULSE 66–88; RESP 1–26; TEMP 36.2–36.9; O2SAT 88–98
[2022-05-24] MEDS: VANCOMYCIN 750 MG in Normal Saline 250 ML 166.6 MG IVPB (00:32)
[2022-05-24] MEDS: Normal Saline Flush 10 ML SYR IVP ×4 (00:33→19:51)
[2022-05-24] MEDS: Levalbuterol 1.25 MG/3 ML UPD VIAL UPD ×3 (04:26→14:19)
[2022-05-24 07:21] LABS: Anion Gap 1.3 mmol/L (3-11); BUN 16 mg/dL (7-18); CO2 40.7 mmol/L (21.0-32.0); CREATININE 0.9 mg/dL (0.55-1.02); Calcium 9.1 mg/dL (8.5-10.1); Chloride 97 mmol/L (98-107); Estimated GFR 71.83 (mL/min/1.73m2); Glucose 103 mg/dL (74-106); Sodium 139 mmol/L (136-145)
[2022-05-24] MEDS: Protein Nutritional Supplement 16 GM 1 OUNCE PACKET PO ×2 (07:36→19:52)
--- NOTE | 2022-05-24 07:36 | PGE_ITS ---
Assessment and Plan Assessment and plan (1) Respiratory failure with hypoxia and hypercapnia: Status: Acute (2) Acute on chronic respiratory acidosis: Status: Acute (3) COPD exacerbation: Status: Acute (4) CHF exacerbation: Status: Acute Assessment and plan: This is a co-morbid 61 yo admitted to the ICU for acute on chronic hypoxic and hypercapnic respiratory failure. She has been diuresed well over the weekend. y and her UOP tapered off overnight. She should be on a daily diuretic regimen to prevent volume overload. I was able to have her Trilogy approved and she used it last night without issue. Acute on chronic hypoxic and hypercapnic respiratory failure - s/p MV - continue Trilogy use - NC during the day for sats 88-92 - I will follow up as an outpatient COPD - nebs prn - home regimen of Stiolto and Flovent - s/p prednisone and azithromycin CHF Exacerbation - recommend negative fluid balance (-500) - continue spirinolactone, torsemide General Date Of Service Date of service: 05/24/22 Time of Service: 07:37 Requesting physician: Norman Wu Reason for Consult: Hypoxic and hypercapnic respiratory failure Subjective Note Note: Елена is doing well. Her and her family met with [facility] and received education on her Trilogy and she wore it overnight without issue. Her dispo plan is still unclear but she would prefer to rehab at [facility]. Exam Narrative Exam Narrative: POCUS 05/10/22: All views visualized, parasternal view suboptimal. Likely borderline low EF, RV normal size and function. IVC 2.5cm with no collapse (while on 8 of PEEP). No pericardial effusion. No pleural effusions bilaterally. + significant B-lines posteriorly, non significant B-lines anteriorly. Gen: NAD, sedated and mechanicall ventilated HENT: PERRL, nasal turbinates normal without erythema or inflammation, moist oral mucosa, Mallampati 2, No LAD or JVD Chest: No respiratory distress, normal appearance of chest, clear to auscultation bilaterally, bilaterally crackles, normal inspiratory effort Heart: regular rate and rhythym, no murmurs, rubs or gallops Abdomen: Non-distended, soft, non tender Extremities: No clubbing, no edema, cyanosis, rashes - warm B/L feet. Neuro: non focal Psych: cooperative Objective Last Vital Signs Temp 36.9 C 11/09/22 03:24 Pulse 67 05/24/22 04:26 Resp 26 H 05/24/22 04:26 BP 129/88 05/24/22 03:24 Pulse Ox 98 05/24/22 04:26 Laboratory Results - last 24 hr 05/24/22 06:00 Sodium 139 Potassium 4.0 Chloride 97 L Carbon Dioxide 40.7 H Anion Gap 1.3 L BUN 16 Creatinine 0.9 Est GFR (CKD-EPI 2020) 71.83 Glucose 103 Calcium 9.1 Results Medications Medications: Active Medications Generic Name Dose Route Start Last Admin Trade Name Freq PRN Reason Stop Dose Admin Acetaminophen 650 mg 05/16/22 11:37 05/21/22 13:54 Acetaminophen 325 Mg Tab PO 650 mg Q4H PRN PRN Administration Amiodarone HCl 400 mg 05/16/22 09:00 05/23/22 20:21 Amiodarone 200 Mg Tab PO 05/26/22 08:59 400 mg BID ESDRAS Administration Apixaban 5 mg 05/17/22 09:25 05/23/22 20:21 Apixaban 5 Mg Tab PO 5 mg BID ESDRAS Administration Ascorbic Acid 500 mg 05/21/22 08:30 05/23/22 20:21 Ascorbic Acid 500 Mg Tab PO 500 mg BID ESDRAS Administration Aspirin 81 mg 05/17/22 08:30 05/23/22 08:23 Aspirin 81 Mg Chew PO 81 mg DAILY ESDRAS Administration Device 1 each 05/10/22 14:00 Inhaler, Assist Device DIRECTED ESDRAS Dimethicone/Zinc Oxide 0 gm 05/10/22 11:47 Adriana Protect Cream 142 Gm Tube TP PRN PRN Ferrous Sulfate 325 mg 05/21/22 08:30 05/23/22 20:21 Ferrous Sulfate 325 Mg Tab PO 325 mg BID ESDRAS Administration Fluoxetine HCl 10 mg 05/20/22 09:00 05/23/22 08:23 Fluoxetine 10 Mg Tab PO 10 mg DAILY ESDRAS Administration Sodium Chloride 500 mls @ 0 mls/hr 05/10/22 11:47 05/23/22 15:30 Saline 500ml Bag IV 0 mls/hr PRN PRN Infusion As Directed Vancomycin HCl 750 mg/ Sodium 250 mls @ 166.667 mls/hr 05/15/22 00:00 05/24/22 02:39 Chloride IVPB Infused Q12H ESDRAS Infusion Protocol Per Protocol IV Miscellaneous Supplies 1 each 05/10/22 12:00 Iv Access IV DIRECTED ESDRAS Ipratropium [place] 0.5 mg 05/16/22 07:23 05/23/22 13:43 Ipratropium 0.5 Mg/2.5 Ml Upd Vial UPD 0.5 mg Q4H PRN PRN Administration Iron/Minerals/Multivitamins 1 tab 05/17/22 09:25 05/23/22 08:23 Multivitamin W/Minerals Tab PO 1 tab DAILY ESDRAS Administration Levalbuterol HCl 1.25 mg 05/16/22 07:23 05/24/22 04:26 Levalbuterol 1.25 Mg/3 Ml Upd Vial UPD 1.25 mg Q4H PRN PRN Administration Levetiracetam 1,000 mg 05/16/22 20:00 05/23/22 20:21 Levetiracetam 500 Mg Tab PO 1,000 mg BID ESDRAS Administration Lorazepam 0.5 mg 05/19/22 12:19 Lorazepam 2 Mg/Ml Vial IVP 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 Lorazepam 0.5 mg 05/20/22 00:59 05/23/22 22:22 Lorazepam 0.5 Mg Tab PO 0.5 mg DAILY PRN PRN Administration Magnesium Oxide 800 mg 05/19/22 08:30 05/23/22 20:21 Magnesium Oxide 400 Mg Tab PO 800 mg BID ESDRAS Administration Melatonin 6 mg 05/17/22 22:00 05/23/22 22:22 Melatonin 3 Mg Tab PO 6 mg HS ESDRAS Administration Metoprolol Succinate 200 mg 05/19/22 22:00 05/23/22 22:22 Metoprolol Cr 100 Mg Tabcr PO 200 mg HS ESDRAS Administration Metoprolol Tartrate 5 mg 05/17/22 07:22 Metoprolol 5 Mg/5 Ml Vial IVP Q1H PRN PRN Mometasone Furoate 1 puff 05/16/22 08:30 05/23/22 20:30 Mometasone 220 Mcg 14 Dose Inhaler IH 1 puff BID ESDRAS Administration Multi-Ingredient Supplement 1 ounce 05/16/22 20:00 05/23/22 20:20 Protein Nutritional Supplement 16 Gm 1 Ounce Packet PO 1 ounce BID ESDRAS Administration Nicotine 21 mg 05/10/22 11:47 05/15/22 22:31 Nicotine 21 Mg/24 Hr Patch TD 21 mg DAILY PRN PRN Administration Norethindrone Acetate 10 mg 05/14/22 08:30 05/23/22 20:21 Norethindrone 5 Mg Tab PO 10 mg BID ESDRAS Administration Pantoprazole Sodium 40 mg 05/18/22 07:30 05/23/22 08:24 Pantoprazole 40 Mg Tabcr PO 40 mg DAILY@0730 ESDRAS Administration Sodium Chloride 0 ml 05/10/22 11:47 05/24/22 02:40 Normal Saline Flush 10 Ml Syr IVP 10 ml PRN PRN Administration Spironolactone 25 mg 05/16/22 09:10 05/23/22 08:24 Spironolactone 25 Mg Tab PO 25 mg DAILY ESDRAS Administration Tiotropium [place]/Olodaterol 2 puff 05/16/22 08:30 05/23/22 07:39 Tiotropium/Olodaterol 10 Puff Inhaler IH 2 puffs DAILY ESDRAS Administration Torsemide 10 mg 05/23/22 08:30 05/23/22 08:22 Torsemide 20 Mg Tab PO 10 mg DAILY ESDRAS Administration Allergies No Known Allergies Allergy (Verified 05/10/22 09:11) Labs Result Diagrams: 05/22/22 06:00 05/24/22 06:00 Labs: 05/19/22 12:40 Blood Blood Culture - Preliminary NO GROWTH 96 HOURS 05/20/22 06:23 Blood Blood Culture - Preliminary NO GROWTH 72 HOURS 05/20/22 06:15 Blood Blood Culture - Preliminary NO GROWTH 72 HOURS 05/15/22 15:35 Blood Blood Culture - Final Bacillus Sp., Not Anthracis 05/15/22 15:33 Blood Blood Culture - Final NO GROWTH 120 HOURS 05/13/22 22:58 Blood Blood Culture - Final Staphylococcus Epidermidis 05/13/22 23:05 Blood Blood Culture - Final NO GROWTH 120 HOURS 05/15/22 10:50 Tip/Tube Catheter Tip Culture - Final Gram Positive Marielle 05/14/22 13:00 Sputum Sputum Culture - Final 05/14/22 13:00 Sputum Gram Stain - Final 05/15/22 11:50 Nose MRSA Screen - Final Laboratory Tests Range/Units 05/10/22 05/10/22 05/10/22 06:52 06:52 06:52 WBC (4.4-10.8) 10^3/uL 11.73 H RBC (3.93-5.22) 10^6/uL 4.30 Hgb (11.2-15.7) g/dL 11.0 L Hct (36.0-46.0) % 39.7 MCV (80-95) fL 92 MCH (27.0-33.0) pg 25.6 L MCHC (32.0-36.0) % 27.7 L RDW (11.7-14.6) % 17.8 H Plt Count (130-400) 10^3/uL 258 MPV (8.0-11.0) fL 9.7 Immature Gran % 1.9 Neutrophils % 87.0 Lymphocytes % 3.8 Monocytes % 6.9 Eosinophils % 0.0 Basophils % 0.4 Nucleated RBC % (0.0-0.3) % 0.6 H Absolute Neutrophils (1.2-6.7) 10^3/uL 10.21 H Absolute Lymphocytes (1.2-3.4) 10^3/uL 0.45 L Absolute Monocytes (0.1-0.8) 10^3/uL 0.81 H Absolute Eosinophils (0.0-0.7) 10^3/uL 0.00 Absolute Basophils (0.0-0.2) 10^3/uL 0.05 RBC Morphology See Below Polychromasia Present Hypochromasia 1+ Basophilic Stippling Present PT (9.3-11.0) sec 9.7 INR (0.9-1.1) 1.0 APTT (21.0-27.5) sec 23.0 D-Dimer (<500) ng/mlFEU ABG Sample Site ABG pH (7.35-7.45) ABG pCO2 (35-45) mmHg ABG pO2 (80-105) mmHg ABG HCO3 (22-26) mmol/L ABG Total CO2 (23-27) mmol/L ABG O2 Saturation (95-98) % ABG Base Excess (-2-3) mmol/L VBG pH (7.31-7.41) VBG pCO2 (41-51) mmHg VBG pO2 mmHg VBG HCO3 (23-28) mmol/L VBG Total CO2 (24-29) mmol/L VBG O2 Saturation % VBG Base Excess (-2-3) mmol/L VBG Lactate (0.6-1.4) mmol/L Oxygen Liter Flow FiO2 % Sodium (136-145) mmol/L 135 L Potassium (3.5-5.1) mmol/L 5.9 H Chloride (98-107) mmol/L 93 L Carbon Dioxide (21.0-32.0) mmol/L > 45.0 H Anion Gap (3-11) mmol/L -3.04332 L BUN (7-18) mg/dL 39 H Creatinine (0.55-1.02) mg/dL 1.4 H Est GFR (CKD-EPI 2020) (mL/min/1.73m2) 42.27 Glucose (74-106) mg/dL 153 H Hemoglobin A1c (<5.7) % Calcium (8.5-10.1) mg/dL 9.3 Phosphorus (2.6-4.7) mg/dL Magnesium (1.8-2.4) mg/dL Iron (50-170) ug/dL TIBC (250-450) ug/dL Ferritin (8-252) ng/mL Total Bilirubin (0.2-1.0) mg/dL 0.3 AST (15-37) U/L 26 ALT (14-59) U/L 23 Alkaline Phosphatase (46-116) U/L 69 Troponin I (<or=60) ng/L 62 H* C-Reactive Protein (0.0-0.3) mg/dL NT-Pro-B Natriuret Pep (<300) pg/mL 40675 H Total Protein (6.4-8.2) g/dL 8.0 Albumin (3.4-5.0) g/dL 3.6 Vitamin B12 (193-986) pg/mL Folate (8.6-20.0) ng/mL Procalcitonin ng/mL TSH (0.36-3.74) uIU/mL 1.20 Urine Color (Yellow) Urine Clarity (Clear) Urine pH (5-8) Ur Specific [place] (1.005-1.025) Urine Protein (Negative) mg/dL Urine Ketones (Negative) mg/dL Urine Blood (Negative) Urine Nitrite (Negative) Urine Bilirubin (Negative) Urine Urobilinogen (Up TO 0.2) EU/dL Ur Leukocyte Esterase (Negative) Urine RBC (0-2) HPF Urine WBC (0-5) HPF Ur Epithelial Cells (Negative) HPF Urine Crystals (Negative) HPF Urine Bacteria (Negative) HPF Urine Casts (Negative) LPF Urine Mucus (Negative) Urine Other (Negative) Ur Culture Indicated? Urine Glucose (Negative) mg/dL Vancomycin Trough (10.0-20.0) ug/mL Urine Opiates Screen (Negative) Urine Methadone Screen (Negative) Ur Barbiturates Screen (Negative) Ur Tricyclics Screen (Negative) Ur Amphetamines Screen (Negative) U Benzodiazepines Scrn (Negative) Urine Cocaine Screen (Negative) Ur THC Screen (Negative) Ethyl Alcohol (<10) mg/dL < 3.0 COVID-19 Source SARS-CoV-2 (PCR) (Negative) Influenza Type A (PCR) (Negative) Influenza Type B (PCR) (Negative) Urine Legionella Ag (Negative) RSV (PCR) (Negative) Ur Strep pneumoniae Ag (Negative) Add-On Test Request Range/Units 05/10/22 05/10/22 05/10/22 06:52 06:52 08:45 WBC (4.4-10.8) 10^3/uL RBC (3.93-5.22) 10^6/uL Hgb (11.2-15.7) g/dL Hct (36.0-46.0) % MCV (80-95) fL MCH (27.0-33.0) pg MCHC (32.0-36.0) % RDW (11.7-14.6) % Plt Count (130-400) 10^3/uL MPV (8.0-11.0) fL Immature Gran % Neutrophils % Lymphocytes % Monocytes % Eosinophils % Basophils % Nucleated RBC % (0.0-0.3) % Absolute Neutrophils (1.2-6.7) 10^3/uL Absolute Lymphocytes (1.2-3.4) 10^3/uL Absolute Monocytes (0.1-0.8) 10^3/uL Absolute Eosinophils (0.0-0.7) 10^3/uL Absolute Basophils (0.0-0.2) 10^3/uL RBC Morphology Polychromasia Hypochromasia Basophilic Stippling PT (9.3-11.0) sec INR (0.9-1.1) APTT (21.0-27.5) sec D-Dimer (<500) ng/mlFEU 874 H ABG Sample Site Right Brachial ABG pH (7.35-7.45) 7.38 ABG pCO2 (35-45) mmHg 68 H* ABG pO2 (80-105) mmHg 71 L ABG HCO3 (22-26) mmol/L 41 H ABG Total CO2 (23-27) mmol/L 38 H ABG O2 Saturation (95-98) % 95 ABG Base Excess (-2-3) mmol/L > 15 H VBG pH (7.31-7.41) 7.22 L VBG pCO2 (41-51) mmHg > 100 H* VBG pO2 mmHg 40 VBG HCO3 (23-28) mmol/L VBG Total CO2 (24-29) mmol/L VBG O2 Saturation % 63 VBG Base Excess (-2-3) mmol/L VBG Lactate (0.6-1.4) mmol/L Oxygen Liter Flow FiO2 % 50 Sodium (136-145) mmol/L Potassium (3.5-5.1) mmol/L Chloride (98-107) mmol/L Carbon Dioxide (21.0-32.0) mmol/L Anion Gap (3-11) mmol/L BUN (7-18) mg/dL Creatinine (0.55-1.02) mg/dL Est GFR (CKD-EPI 2020) (mL/min/1.73m2) Glucose (74-106) mg/dL Hemoglobin A1c (<5.7) % Calcium (8.5-10.1) mg/dL Phosphorus (2.6-4.7) mg/dL Magnesium (1.8-2.4) mg/dL Iron (50-170) ug/dL TIBC (250-450) ug/dL Ferritin (8-252) ng/mL Total Bilirubin (0.2-1.0) mg/dL AST (15-37) U/L ALT (14-59) U/L Alkaline Phosphatase (46-116) U/L Troponin I (<or=60) ng/L C-Reactive Protein (0.0-0.3) mg/dL NT-Pro-B Natriuret Pep (<300) pg/mL Total Protein (6.4-8.2) g/dL Albumin (3.4-5.0) g/dL Vitamin B12 (193-986) pg/mL Folate (8.6-20.0) ng/mL Procalcitonin ng/mL TSH (0.36-3.74) uIU/mL Urine Color (Yellow) Urine Clarity (Clear) Urine pH (5-8) Ur Specific [place] (1.005-1.025) Urine Protein (Negative) mg/dL Urine Ketones (Negative) mg/dL Urine Blood (Negative) Urine Nitrite (Negative) Urine Bilirubin (Negative) Urine Urobilinogen (Up TO 0.2) EU/dL Ur Leukocyte Esterase (Negative) Urine RBC (0-2) HPF Urine WBC (0-5) HPF Ur Epithelial Cells (Negative) HPF Urine Crystals (Negative) HPF Urine Bacteria (Negative) HPF Urine Casts (Negative) LPF Urine Mucus (Negative) Urine Other (Negative) Ur Culture Indicated? Urine Glucose (Negative) mg/dL Vancomycin Trough (10.0-20.0) ug/mL Urine Opiates Screen (Negative) Urine Methadone Screen (Negative) Ur Barbiturates Screen (Negative) Ur Tricyclics Screen (Negative) Ur Amphetamines Screen (Negative) U Benzodiazepines Scrn (Negative) Urine Cocaine Screen (Negative) Ur THC Screen (Negative) Ethyl Alcohol (<10) mg/dL COVID-19 Source SARS-CoV-2 (PCR) (Negative) Influenza Type A (PCR) (Negative) Influenza Type B (PCR) (Negative) Urine Legionella Ag (Negative) RSV (PCR) (Negative) Ur Strep pneumoniae Ag (Negative) Add-On Test Request Range/Units 05/10/22 05/10/22 05/10/22 09:40 09:51 09:51 WBC (4.4-10.8) 10^3/uL RBC (3.93-5.22) 10^6/uL Hgb (11.2-15.7) g/dL Hct (36.0-46.0) % MCV (80-95) fL MCH (27.0-33.0) pg MCHC (32.0-36.0) % RDW (11.7-14.6) % Plt Count (130-400) 10^3/uL MPV (8.0-11.0) fL Immature Gran % Neutrophils % Lymphocytes % Monocytes % Eosinophils % Basophils % Nucleated RBC % (0.0-0.3) % Absolute Neutrophils (1.2-6.7) 10^3/uL Absolute Lymphocytes (1.2-3.4) 10^3/uL Absolute Monocytes (0.1-0.8) 10^3/uL Absolute Eosinophils (0.0-0.7) 10^3/uL Absolute Basophils (0.0-0.2) 10^3/uL RBC Morphology Polychromasia Hypochromasia Basophilic Stippling PT (9.3-11.0) sec INR (0.9-1.1) APTT (21.0-27.5) sec D-Dimer (<500) ng/mlFEU ABG Sample Site ABG pH (7.35-7.45) ABG pCO2 (35-45) mmHg ABG pO2 (80-105) mmHg ABG HCO3 (22-26) mmol/L ABG Total CO2 (23-27) mmol/L ABG O2 Saturation (95-98) % ABG Base Excess (-2-3) mmol/L VBG pH (7.31-7.41) VBG pCO2 (41-51) mmHg VBG pO2 mmHg VBG HCO3 (23-28) mmol/L VBG Total CO2 (24-29) mmol/L VBG O2 Saturation % VBG Base Excess (-2-3) mmol/L VBG Lactate (0.6-1.4) mmol/L Oxygen Liter Flow FiO2 % Sodium (136-145) mmol/L Potassium (3.5-5.1) mmol/L Chloride (98-107) mmol/L Carbon Dioxide (21.0-32.0) mmol/L Anion Gap (3-11) mmol/L BUN (7-18) mg/dL Creatinine (0.55-1.02) mg/dL Est GFR (CKD-EPI 2020) (mL/min/1.73m2) Glucose (74-106) mg/dL Hemoglobin A1c (<5.7) % Calcium (8.5-10.1) mg/dL Phosphorus (2.6-4.7) mg/dL Magnesium (1.8-2.4) mg/dL Iron (50-170) ug/dL TIBC (250-450) ug/dL Ferritin (8-252) ng/mL Total Bilirubin (0.2-1.0) mg/dL AST (15-37) U/L ALT (14-59) U/L Alkaline Phosphatase (46-116) U/L Troponin I (<or=60) ng/L 112 H* C-Reactive Protein (0.0-0.3) mg/dL NT-Pro-B Natriuret Pep (<300) pg/mL Total Protein (6.4-8.2) g/dL Albumin (3.4-5.0) g/dL Vitamin B12 (193-986) pg/mL Folate (8.6-20.0) ng/mL Procalcitonin ng/mL TSH (0.36-3.74) uIU/mL Urine Color (Yellow) Urine Clarity (Clear) Urine pH (5-8) Ur Specific [place] (1.005-1.025) Urine Protein (Negative) mg/dL Urine Ketones (Negative) mg/dL Urine Blood (Negative) Urine Nitrite (Negative) Urine Bilirubin (Negative) Urine Urobilinogen (Up TO 0.2) EU/dL Ur Leukocyte Esterase (Negative) Urine RBC (0-2) HPF Urine WBC (0-5) HPF Ur Epithelial Cells (Negative) HPF Urine Crystals (Negative) HPF Urine Bacteria (Negative) HPF Urine Casts (Negative) LPF Urine Mucus (Negative) Urine Other (Negative) Ur Culture Indicated? Urine Glucose (Negative) mg/dL Vancomycin Trough (10.0-20.0) ug/mL Urine Opiates Screen (Negative) Negative Urine Methadone Screen (Negative) Negative Ur Barbiturates Screen (Negative) Negative Ur Tricyclics Screen (Negative) Negative Ur Amphetamines Screen (Negative) Negative U Benzodiazepines Scrn (Negative) Negative Urine Cocaine Screen (Negative) Negative Ur THC Screen (Negative) Negative Ethyl Alcohol (<10) mg/dL COVID-19 Source Nasopharynx SARS-CoV-2 (PCR) (Negative) Negative Influenza Type A (PCR) (Negative) Negative Influenza Type B (PCR) (Negative) Negative Urine Legionella Ag (Negative) RSV (PCR) (Negative) Negative Ur Strep pneumoniae Ag (Negative) Add-On Test Request Range/Units 05/10/22 05/10/22 05/10/22 09:51 12:00 12:20 WBC (4.4-10.8) 10^3/uL RBC (3.93-5.22) 10^6/uL Hgb (11.2-15.7) g/dL Hct (36.0-46.0) % MCV (80-95) fL MCH (27.0-33.0) pg MCHC (32.0-36.0) % RDW (11.7-14.6) % Plt Count (130-400) 10^3/uL MPV (8.0-11.0) fL Immature Gran % Neutrophils % Lymphocytes % Monocytes % Eosinophils % Basophils % Nucleated RBC % (0.0-0.3) % Absolute Neutrophils (1.2-6.7) 10^3/uL Absolute Lymphocytes (1.2-3.4) 10^3/uL Absolute Monocytes (0.1-0.8) 10^3/uL Absolute Eosinophils (0.0-0.7) 10^3/uL Absolute Basophils (0.0-0.2) 10^3/uL RBC Morphology Polychromasia Hypochromasia Basophilic Stippling PT (9.3-11.0) sec INR (0.9-1.1) APTT (21.0-27.5) sec D-Dimer (<500) ng/mlFEU ABG Sample Site ABG pH (7.35-7.45) ABG pCO2 (35-45) mmHg ABG pO2 (80-105) mmHg ABG HCO3 (22-26) mmol/L ABG Total CO2 (23-27) mmol/L ABG O2 Saturation (95-98) % ABG Base Excess (-2-3) mmol/L VBG pH (7.31-7.41) VBG pCO2 (41-51) mmHg VBG pO2 mmHg VBG HCO3 (23-28) mmol/L VBG Total CO2 (24-29) mmol/L VBG O2 Saturation % VBG Base Excess (-2-3) mmol/L VBG Lactate (0.6-1.4) mmol/L Oxygen Liter Flow FiO2 % Sodium (136-145) mmol/L Potassium (3.5-5.1) mmol/L Chloride (98-107) mmol/L Carbon Dioxide (21.0-32.0) mmol/L Anion Gap (3-11) mmol/L BUN (7-18) mg/dL Creatinine (0.55-1.02) mg/dL Est GFR (CKD-EPI 2020) (mL/min/1.73m2) Glucose (74-106) mg/dL Hemoglobin A1c (<5.7) % Calcium (8.5-10.1) mg/dL Phosphorus (2.6-4.7) mg/dL Magnesium (1.8-2.4) mg/dL Iron (50-170) ug/dL TIBC (250-450) ug/dL Ferritin (8-252) ng/mL Total Bilirubin (0.2-1.0) mg/dL AST (15-37) U/L ALT (14-59) U/L Alkaline Phosphatase (46-116) U/L Troponin I (<or=60) ng/L Cancelled 119 H* C-Reactive Protein (0.0-0.3) mg/dL NT-Pro-B Natriuret Pep (<300) pg/mL Total Protein (6.4-8.2) g/dL Albumin (3.4-5.0) g/dL Vitamin B12 (193-986) pg/mL Folate (8.6-20.0) ng/mL Procalcitonin ng/mL TSH (0.36-3.74) uIU/mL Urine Color (Yellow) Yellow Urine Clarity (Clear) Clear Urine pH (5-8) 7.5 Ur Specific [place] (1.005-1.025) 1.020 Urine Protein (Negative) mg/dL 30 H Urine Ketones (Negative) mg/dL Negative Urine Blood (Negative) Trace-intact H Urine Nitrite (Negative) Negative Urine Bilirubin (Negative) Negative Urine Urobilinogen (Up TO 0.2) EU/dL 0.2 Ur Leukocyte Esterase (Negative) Negative Urine RBC (0-2) HPF 3-5 H Urine WBC (0-5) HPF Negative Ur Epithelial Cells (Negative) HPF Few Urine Crystals (Negative) HPF Negative Urine Bacteria (Negative) HPF Few Urine Casts (Negative) LPF Negative Urine Mucus (Negative) Trace Urine Other (Negative) Rare Renal Ur Culture Indicated? No Urine Glucose (Negative) mg/dL 250 H Vancomycin Trough (10.0-20.0) ug/mL Urine Opiates Screen (Negative) Urine Methadone Screen (Negative) Ur Barbiturates Screen (Negative) Ur Tricyclics Screen (Negative) Ur Amphetamines Screen (Negative) U Benzodiazepines Scrn (Negative) Urine Cocaine Screen (Negative) Ur THC Screen (Negative) Ethyl Alcohol (<10) mg/dL COVID-19 Source SARS-CoV-2 (PCR) (Negative) Influenza Type A (PCR) (Negative) Influenza Type B (PCR) (Negative) Urine Legionella Ag (Negative) RSV (PCR) (Negative) Ur Strep pneumoniae Ag (Negative) Add-On Test Request Range/Units 05/10/22 05/10/22 05/10/22 12:20 12:20 18:30 WBC (4.4-10.8) 10^3/uL RBC (3.93-5.22) 10^6/uL Hgb (11.2-15.7) g/dL Hct (36.0-46.0) % MCV (80-95) fL MCH (27.0-33.0) pg MCHC (32.0-36.0) % RDW (11.7-14.6) % Plt Count (130-400) 10^3/uL MPV (8.0-11.0) fL Immature Gran % Neutrophils % Lymphocytes % Monocytes % Eosinophils % Basophils % Nucleated RBC % (0.0-0.3) % Absolute Neutrophils (1.2-6.7) 10^3/uL Absolute Lymphocytes (1.2-3.4) 10^3/uL Absolute Monocytes (0.1-0.8) 10^3/uL Absolute Eosinophils (0.0-0.7) 10^3/uL Absolute Basophils (0.0-0.2) 10^3/uL RBC Morphology Polychromasia Hypochromasia Basophilic Stippling PT (9.3-11.0) sec INR (0.9-1.1) APTT (21.0-27.5) sec D-Dimer (<500) ng/mlFEU ABG Sample Site ABG pH (7.35-7.45) ABG pCO2 (35-45) mmHg ABG pO2 (80-105) mmHg ABG HCO3 (22-26) mmol/L ABG Total CO2 (23-27) mmol/L ABG O2 Saturation (95-98) % ABG Base Excess (-2-3) mmol/L VBG pH (7.31-7.41) 7.41 VBG pCO2 (41-51) mmHg 68 H* VBG pO2 mmHg 35 VBG HCO3 (23-28) mmol/L 43 H VBG Total CO2 (24-29) mmol/L 40 H VBG O2 Saturation % 67 VBG Base Excess (-2-3) mmol/L > 15 H VBG Lactate (0.6-1.4) mmol/L Oxygen Liter Flow FiO2 % Sodium (136-145) mmol/L Potassium (3.5-5.1) mmol/L Chloride (98-107) mmol/L Carbon Dioxide (21.0-32.0) mmol/L Anion Gap (3-11) mmol/L BUN (7-18) mg/dL Creatinine (0.55-1.02) mg/dL Est GFR (CKD-EPI 2020) (mL/min/1.73m2) Glucose (74-106) mg/dL Hemoglobin A1c (<5.7) % Calcium (8.5-10.1) mg/dL Phosphorus (2.6-4.7) mg/dL Magnesium (1.8-2.4) mg/dL Iron (50-170) ug/dL TIBC (250-450) ug/dL Ferritin (8-252) ng/mL Total Bilirubin (0.2-1.0) mg/dL AST (15-37) U/L ALT (14-59) U/L Alkaline Phosphatase (46-116) U/L Troponin I (<or=60) ng/L 79 H* C-Reactive Protein (0.0-0.3) mg/dL NT-Pro-B Natriuret Pep (<300) pg/mL Total Protein (6.4-8.2) g/dL Albumin (3.4-5.0) g/dL Vitamin B12 (193-986) pg/mL Folate (8.6-20.0) ng/mL Procalcitonin ng/mL < 0.1 TSH (0.36-3.74) uIU/mL Urine Color (Yellow) Urine Clarity (Clear) Urine pH (5-8) Ur Specific [place] (1.005-1.025) Urine Protein (Negative) mg/dL Urine Ketones (Negative) mg/dL Urine Blood (Negative) Urine Nitrite (Negative) Urine Bilirubin (Negative) Urine Urobilinogen (Up TO 0.2) EU/dL Ur Leukocyte Esterase (Negative) Urine RBC (0-2) HPF Urine WBC (0-5) HPF Ur Epithelial Cells (Negative) HPF Urine Crystals (Negative) HPF Urine Bacteria (Negative) HPF Urine Casts (Negative) LPF Urine Mucus (Negative) Urine Other (Negative) Ur Culture Indicated? Urine Glucose (Negative) mg/dL Vancomycin Trough (10.0-20.0) ug/mL Urine Opiates Screen (Negative) Urine Methadone Screen (Negative) Ur Barbiturates Screen (Negative) Ur Tricyclics Screen (Negative) Ur Amphetamines Screen (Negative) U Benzodiazepines Scrn (Negative) Urine Cocaine Screen (Negative) Ur THC Screen (Negative) Ethyl Alcohol (<10) mg/dL COVID-19 Source SARS-CoV-2 (PCR) (Negative) Influenza Type A (PCR) (Negative) Influenza Type B (PCR) (Negative) Urine Legionella Ag (Negative) RSV (PCR) (Negative) Ur Strep pneumoniae Ag (Negative) Add-On Test Request Range/Units 05/11/22 05/11/22 05/11/22 05:10 05:10 05:10 WBC (4.4-10.8) 10^3/uL 12.06 H RBC (3.93-5.22) 10^6/uL 3.57 L Hgb (11.2-15.7) g/dL 9.1 L Hct (36.0-46.0) % 32.1 L MCV (80-95) fL 90 MCH (27.0-33.0) pg 25.5 L MCHC (32.0-36.0) % 28.3 L RDW (11.7-14.6) % 18.0 H Plt Count (130-400) 10^3/uL 233 MPV (8.0-11.0) fL 10.4 Immature Gran % 0.6 Neutrophils % 86.6 Lymphocytes % 2.7 Monocytes % 10.0 Eosinophils % 0.0 Basophils % 0.1 Nucleated RBC % (0.0-0.3) % 0.2 Absolute Neutrophils (1.2-6.7) 10^3/uL 10.44 H Absolute Lymphocytes (1.2-3.4) 10^3/uL 0.33 L Absolute Monocytes (0.1-0.8) 10^3/uL 1.21 H Absolute Eosinophils (0.0-0.7) 10^3/uL 0.00 Absolute Basophils (0.0-0.2) 10^3/uL 0.01 RBC Morphology Polychromasia Hypochromasia Basophilic Stippling PT (9.3-11.0) sec INR (0.9-1.1) APTT (21.0-27.5) sec D-Dimer (<500) ng/mlFEU ABG Sample Site ABG pH (7.35-7.45) ABG pCO2 (35-45) mmHg ABG pO2 (80-105) mmHg ABG HCO3 (22-26) mmol/L ABG Total CO2 (23-27) mmol/L ABG O2 Saturation (95-98) % ABG Base Excess (-2-3) mmol/L VBG pH (7.31-7.41) VBG pCO2 (41-51) mmHg VBG pO2 mmHg VBG HCO3 (23-28) mmol/L VBG Total CO2 (24-29) mmol/L VBG O2 Saturation % VBG Base Excess (-2-3) mmol/L VBG Lactate (0.6-1.4) mmol/L Oxygen Liter Flow FiO2 % Sodium (136-145) mmol/L 138 Potassium (3.5-5.1) mmol/L 5.8 H Chloride (98-107) mmol/L 99 Carbon Dioxide (21.0-32.0) mmol/L 42.4 H Anion Gap (3-11) mmol/L -3.4 L BUN (7-18) mg/dL 34 H Creatinine (0.55-1.02) mg/dL 1.3 H Est GFR (CKD-EPI 2020) (mL/min/1.73m2) 46.21 Glucose (74-106) mg/dL 102 Hemoglobin A1c (<5.7) % Calcium (8.5-10.1) mg/dL 8.5 Phosphorus (2.6-4.7) mg/dL 3.6 Cancelled Magnesium (1.8-2.4) mg/dL 2.3 Iron (50-170) ug/dL TIBC (250-450) ug/dL Ferritin (8-252) ng/mL Total Bilirubin (0.2-1.0) mg/dL 0.3 AST (15-37) U/L 15 ALT (14-59) U/L 15 Alkaline Phosphatase (46-116) U/L 47 Troponin I (<or=60) ng/L C-Reactive Protein (0.0-0.3) mg/dL NT-Pro-B Natriuret Pep (<300) pg/mL Total Protein (6.4-8.2) g/dL 6.0 L Albumin (3.4-5.0) g/dL 2.7 L Vitamin B12 (193-986) pg/mL Folate (8.6-20.0) ng/mL Procalcitonin ng/mL TSH (0.36-3.74) uIU/mL Urine Color (Yellow) Urine Clarity (Clear) Urine pH (5-8) Ur Specific [place] (1.005-1.025) Urine Protein (Negative) mg/dL Urine Ketones (Negative) mg/dL Urine Blood (Negative) Urine Nitrite (Negative) Urine Bilirubin (Negative) Urine Urobilinogen (Up TO 0.2) EU/dL Ur Leukocyte Esterase (Negative) Urine RBC (0-2) HPF Urine WBC (0-5) HPF Ur Epithelial Cells (Negative) HPF Urine Crystals (Negative) HPF Urine Bacteria (Negative) HPF Urine Casts (Negative) LPF Urine Mucus (Negative) Urine Other (Negative) Ur Culture Indicated? Urine Glucose (Negative) mg/dL Vancomycin Trough (10.0-20.0) ug/mL Urine Opiates Screen (Negative) Urine Methadone Screen (Negative) Ur Barbiturates Screen (Negative) Ur Tricyclics Screen (Negative) Ur Amphetamines Screen (Negative) U Benzodiazepines Scrn (Negative) Urine Cocaine Screen (Negative) Ur THC Screen (Negative) Ethyl Alcohol (<10) mg/dL COVID-19 Source SARS-CoV-2 (PCR) (Negative) Influenza Type A (PCR) (Negative) Influenza Type B (PCR) (Negative) Urine Legionella Ag (Negative) RSV (PCR) (Negative) Ur Strep pneumoniae Ag (Negative) Add-On Test Request Range/Units 05/11/22 05/11/22 05/11/22 09:25 09:50 09:50 WBC (4.4-10.8) 10^3/uL RBC (3.93-5.22) 10^6/uL Hgb (11.2-15.7) g/dL Hct (36.0-46.0) % MCV (80-95) fL MCH (27.0-33.0) pg MCHC (32.0-36.0) % RDW (11.7-14.6) % Plt Count (130-400) 10^3/uL MPV (8.0-11.0) fL Immature Gran % Neutrophils % Lymphocytes % Monocytes % Eosinophils % Basophils % Nucleated RBC % (0.0-0.3) % Absolute Neutrophils (1.2-6.7) 10^3/uL Absolute Lymphocytes (1.2-3.4) 10^3/uL Absolute Monocytes (0.1-0.8) 10^3/uL Absolute Eosinophils (0.0-0.7) 10^3/uL Absolute Basophils (0.0-0.2) 10^3/uL RBC Morphology Polychromasia Hypochromasia Basophilic Stippling PT (9.3-11.0) sec INR (0.9-1.1) APTT (21.0-27.5) sec D-Dimer (<500) ng/mlFEU ABG Sample Site Right Radial ABG pH (7.35-7.45) 7.36 ABG pCO2 (35-45) mmHg 76 H* ABG pO2 (80-105) mmHg 74 L ABG HCO3 (22-26) mmol/L 43 H ABG Total CO2 (23-27) mmol/L 41 H ABG O2 Saturation (95-98) % 94 L ABG Base Excess (-2-3) mmol/L > 15 H VBG pH (7.31-7.41) VBG pCO2 (41-51) mmHg VBG pO2 mmHg VBG HCO3 (23-28) mmol/L VBG Total CO2 (24-29) mmol/L VBG O2 Saturation % VBG Base Excess (-2-3) mmol/L VBG Lactate (0.6-1.4) mmol/L Oxygen Liter Flow FiO2 % 50 Sodium (136-145) mmol/L Potassium (3.5-5.1) mmol/L 5.5 H Chloride (98-107) mmol/L Carbon Dioxide (21.0-32.0) mmol/L Anion Gap (3-11) mmol/L BUN (7-18) mg/dL Creatinine (0.55-1.02) mg/dL Est GFR (CKD-EPI 2020) (mL/min/1.73m2) Glucose (74-106) mg/dL Hemoglobin A1c (<5.7) % Calcium (8.5-10.1) mg/dL Phosphorus (2.6-4.7) mg/dL Magnesium (1.8-2.4) mg/dL Iron (50-170) ug/dL TIBC (250-450) ug/dL Ferritin (8-252) ng/mL Total Bilirubin (0.2-1.0) mg/dL AST (15-37) U/L ALT (14-59) U/L Alkaline Phosphatase (46-116) U/L Troponin I (<or=60) ng/L < 50 C-Reactive Protein (0.0-0.3) mg/dL NT-Pro-B Natriuret Pep (<300) pg/mL Total Protein (6.4-8.2) g/dL Albumin (3.4-5.0) g/dL Vitamin B12 (193-986) pg/mL Folate (8.6-20.0) ng/mL Procalcitonin ng/mL TSH (0.36-3.74) uIU/mL Urine Color (Yellow) Urine Clarity (Clear) Urine pH (5-8) Ur Specific [place] (1.005-1.025) Urine Protein (Negative) mg/dL Urine Ketones (Negative) mg/dL Urine Blood (Negative) Urine Nitrite (Negative) Urine Bilirubin (Negative) Urine Urobilinogen (Up TO 0.2) EU/dL Ur Leukocyte Esterase (Negative) Urine RBC (0-2) HPF Urine WBC (0-5) HPF Ur Epithelial Cells (Negative) HPF Urine Crystals (Negative) HPF Urine Bacteria (Negative) HPF Urine Casts (Negative) LPF Urine Mucus (Negative) Urine Other (Negative) Ur Culture Indicated? Urine Glucose (Negative) mg/dL Vancomycin Trough (10.0-20.0) ug/mL Urine Opiates Screen (Negative) Urine Methadone Screen (Negative) Ur Barbiturates Screen (Negative) Ur Tricyclics Screen (Negative) Ur Amphetamines Screen (Negative) U Benzodiazepines Scrn (Negative) Urine Cocaine Screen (Negative) Ur THC Screen (Negative) Ethyl Alcohol (<10) mg/dL COVID-19 Source SARS-CoV-2 (PCR) (Negative) Influenza Type A (PCR) (Negative) Influenza Type B (PCR) (Negative) Urine Legionella Ag (Negative) RSV (PCR) (Negative) Ur Strep pneumoniae Ag (Negative) Add-On Test Request Range/Units 05/11/22 05/11/22 05/11/22 11:29 11:29 13:56 WBC (4.4-10.8) 10^3/uL RBC (3.93-5.22) 10^6/uL Hgb (11.2-15.7) g/dL Hct (36.0-46.0) % MCV (80-95) fL MCH (27.0-33.0) pg MCHC (32.0-36.0) % RDW (11.7-14.6) % Plt Count (130-400) 10^3/uL MPV (8.0-11.0) fL Immature Gran % Neutrophils % Lymphocytes % Monocytes % Eosinophils % Basophils % Nucleated RBC % (0.0-0.3) % Absolute Neutrophils (1.2-6.7) 10^3/uL Absolute Lymphocytes (1.2-3.4) 10^3/uL Absolute Monocytes (0.1-0.8) 10^3/uL Absolute Eosinophils (0.0-0.7) 10^3/uL Absolute Basophils (0.0-0.2) 10^3/uL RBC Morphology Polychromasia Hypochromasia Basophilic Stippling PT (9.3-11.0) sec INR (0.9-1.1) APTT (21.0-27.5) sec D-Dimer (<500) ng/mlFEU ABG Sample Site ABG pH (7.35-7.45) ABG pCO2 (35-45) mmHg ABG pO2 (80-105) mmHg ABG HCO3 (22-26) mmol/L ABG Total CO2 (23-27) mmol/L ABG O2 Saturation (95-98) % ABG Base Excess (-2-3) mmol/L VBG pH (7.31-7.41) VBG pCO2 (41-51) mmHg VBG pO2 mmHg VBG HCO3 (23-28) mmol/L VBG Total CO2 (24-29) mmol/L VBG O2 Saturation % VBG Base Excess (-2-3) mmol/L VBG Lactate (0.6-1.4) mmol/L Oxygen Liter Flow FiO2 % Sodium (136-145) mmol/L Potassium (3.5-5.1) mmol/L Chloride (98-107) mmol/L Carbon Dioxide (21.0-32.0) mmol/L Anion Gap (3-11) mmol/L BUN (7-18) mg/dL Creatinine (0.55-1.02) mg/dL Est GFR (CKD-EPI 2020) (mL/min/1.73m2) Glucose (74-106) mg/dL Hemoglobin A1c (<5.7) % Calcium (8.5-10.1) mg/dL Phosphorus (2.6-4.7) mg/dL Magnesium (1.8-2.4) mg/dL Iron (50-170) ug/dL TIBC (250-450) ug/dL Ferritin (8-252) ng/mL Total Bilirubin (0.2-1.0) mg/dL AST (15-37) U/L ALT (14-59) U/L Alkaline Phosphatase (46-116) U/L Troponin I (<or=60) ng/L < 50 C-Reactive Protein (0.0-0.3) mg/dL NT-Pro-B Natriuret Pep (<300) pg/mL Total Protein (6.4-8.2) g/dL Albumin (3.4-5.0) g/dL Vitamin B12 (193-986) pg/mL Folate (8.6-20.0) ng/mL Procalcitonin ng/mL TSH (0.36-3.74) uIU/mL Urine Color (Yellow) Urine Clarity (Clear) Urine pH (5-8) Ur Specific [place] (1.005-1.025) Urine Protein (Negative) mg/dL Urine Ketones (Negative) mg/dL Urine Blood (Negative) Urine Nitrite (Negative) Urine Bilirubin (Negative) Urine Urobilinogen (Up TO 0.2) EU/dL Ur Leukocyte Esterase (Negative) Urine RBC (0-2) HPF Urine WBC (0-5) HPF Ur Epithelial Cells (Negative) HPF Urine Crystals (Negative) HPF Urine Bacteria (Negative) HPF Urine Casts (Negative) LPF Urine Mucus (Negative) Urine Other (Negative) Ur Culture Indicated? Urine Glucose (Negative) mg/dL Vancomycin Trough (10.0-20.0) ug/mL Urine Opiates Screen (Negative) Urine Methadone Screen (Negative) Ur Barbiturates Screen (Negative) Ur Tricyclics Screen (Negative) Ur Amphetamines Screen (Negative) U Benzodiazepines Scrn (Negative) Urine Cocaine Screen (Negative) Ur THC Screen (Negative) Ethyl Alcohol (<10) mg/dL COVID-19 Source SARS-CoV-2 (PCR) (Negative) Influenza Type A (PCR) (Negative) Influenza Type B (PCR) (Negative) Urine Legionella Ag (Negative) Negative RSV (PCR) (Negative) Ur Strep pneumoniae Ag (Negative) Negative Add-On Test Request Range/Units 05/12/22 05/12/22 05/12/22 02:15 02:15 02:15 WBC (4.4-10.8) 10^3/uL RBC (3.93-5.22) 10^6/uL Hgb (11.2-15.7) g/dL Hct (36.0-46.0) % MCV (80-95) fL MCH (27.0-33.0) pg MCHC (32.0-36.0) % RDW (11.7-14.6) % Plt Count (130-400) 10^3/uL MPV (8.0-11.0) fL Immature Gran % Neutrophils % Lymphocytes % Monocytes % Eosinophils % Basophils % Nucleated RBC % (0.0-0.3) % Absolute Neutrophils (1.2-6.7) 10^3/uL Absolute Lymphocytes (1.2-3.4) 10^3/uL Absolute Monocytes (0.1-0.8) 10^3/uL Absolute Eosinophils (0.0-0.7) 10^3/uL Absolute Basophils (0.0-0.2) 10^3/uL RBC Morphology Polychromasia Hypochromasia Basophilic Stippling PT (9.3-11.0) sec INR (0.9-1.1) APTT (21.0-27.5) sec D-Dimer (<500) ng/mlFEU ABG Sample Site ABG pH (7.35-7.45) ABG pCO2 (35-45) mmHg ABG pO2 (80-105) mmHg ABG HCO3 (22-26) mmol/L ABG Total CO2 (23-27) mmol/L ABG O2 Saturation (95-98) % ABG Base Excess (-2-3) mmol/L VBG pH (7.31-7.41) 7.36 VBG pCO2 (41-51) mmHg 74 H* VBG pO2 mmHg 39 VBG HCO3 (23-28) mmol/L 41 H VBG Total CO2 (24-29) mmol/L 39 H VBG O2 Saturation % 69 VBG Base Excess (-2-3) mmol/L > 15 H VBG Lactate (0.6-1.4) mmol/L 1.2 Oxygen Liter Flow FiO2 % Sodium (136-145) mmol/L 136 Potassium (3.5-5.1) mmol/L 5.5 H Chloride (98-107) mmol/L 97 L Carbon Dioxide (21.0-32.0) mmol/L 41.7 H Anion Gap (3-11) mmol/L -2.7 L BUN (7-18) mg/dL 31 H Creatinine (0.55-1.02) mg/dL 1.3 H Est GFR (CKD-EPI 2020) (mL/min/1.73m2) 46.21 Glucose (74-106) mg/dL 122 H Hemoglobin A1c (<5.7) % Calcium (8.5-10.1) mg/dL 8.3 L Phosphorus (2.6-4.7) mg/dL Magnesium (1.8-2.4) mg/dL Iron (50-170) ug/dL TIBC (250-450) ug/dL Ferritin (8-252) ng/mL Total Bilirubin (0.2-1.0) mg/dL AST (15-37) U/L ALT (14-59) U/L Alkaline Phosphatase (46-116) U/L Troponin I (<or=60) ng/L 54 C-Reactive Protein (0.0-0.3) mg/dL NT-Pro-B Natriuret Pep (<300) pg/mL Total Protein (6.4-8.2) g/dL Albumin (3.4-5.0) g/dL Vitamin B12 (193-986) pg/mL Folate (8.6-20.0) ng/mL Procalcitonin ng/mL TSH (0.36-3.74) uIU/mL Urine Color (Yellow) Urine Clarity (Clear) Urine pH (5-8) Ur Specific [place] (1.005-1.025) Urine Protein (Negative) mg/dL Urine Ketones (Negative) mg/dL Urine Blood (Negative) Urine Nitrite (Negative) Urine Bilirubin (Negative) Urine Urobilinogen (Up TO 0.2) EU/dL Ur Leukocyte Esterase (Negative) Urine RBC (0-2) HPF Urine WBC (0-5) HPF Ur Epithelial Cells (Negative) HPF Urine Crystals (Negative) HPF Urine Bacteria (Negative) HPF Urine Casts (Negative) LPF Urine Mucus (Negative) Urine Other (Negative) Ur Culture Indicated? Urine Glucose (Negative) mg/dL Vancomycin Trough (10.0-20.0) ug/mL Urine Opiates Screen (Negative) Urine Methadone Screen (Negative) Ur Barbiturates Screen (Negative) Ur Tricyclics Screen (Negative) Ur Amphetamines Screen (Negative) U Benzodiazepines Scrn (Negative) Urine Cocaine Screen (Negative) Ur THC Screen (Negative) Ethyl Alcohol (<10) mg/dL COVID-19 Source SARS-CoV-2 (PCR) (Negative) Influenza Type A (PCR) (Negative) Influenza Type B (PCR) (Negative) Urine Legionella Ag (Negative) RSV (PCR) (Negative) Ur Strep pneumoniae Ag (Negative) Add-On Test Request Range/Units 05/12/22 05/12/22 05/12/22 02:15 02:15 06:40 WBC (4.4-10.8) 10^3/uL 16.34 H RBC (3.93-5.22) 10^6/uL 3.80 L Hgb (11.2-15.7) g/dL 9.8 L Hct (36.0-46.0) % 34.3 L MCV (80-95) fL 90 MCH (27.0-33.0) pg 25.8 L MCHC (32.0-36.0) % 28.6 L RDW (11.7-14.6) % 18.4 H Plt Count (130-400) 10^3/uL 291 MPV (8.0-11.0) fL 9.5 Immature Gran % 2.0 Neutrophils % 83.7 Lymphocytes % 4.2 Monocytes % 10.0 Eosinophils % 0.0 Basophils % 0.1 Nucleated RBC % (0.0-0.3) % 0.2 Absolute Neutrophils (1.2-6.7) 10^3/uL 13.68 H Absolute Lymphocytes (1.2-3.4) 10^3/uL 0.69 L Absolute Monocytes (0.1-0.8) 10^3/uL 1.63 H Absolute Eosinophils (0.0-0.7) 10^3/uL 0.00 Absolute Basophils (0.0-0.2) 10^3/uL 0.02 RBC Morphology See Below Polychromasia Hypochromasia 1+ Basophilic Stippling PT (9.3-11.0) sec INR (0.9-1.1) APTT (21.0-27.5) sec D-Dimer (<500) ng/mlFEU ABG Sample Site ABG pH (7.35-7.45) ABG pCO2 (35-45) mmHg ABG pO2 (80-105) mmHg ABG HCO3 (22-26) mmol/L ABG Total CO2 (23-27) mmol/L ABG O2 Saturation (95-98) % ABG Base Excess (-2-3) mmol/L VBG pH (7.31-7.41) VBG pCO2 (41-51) mmHg VBG pO2 mmHg VBG HCO3 (23-28) mmol/L VBG Total CO2 (24-29) mmol/L VBG O2 Saturation % VBG Base Excess (-2-3) mmol/L VBG Lactate (0.6-1.4) mmol/L Oxygen Liter Flow FiO2 % Sodium (136-145) mmol/L 135 L Potassium (3.5-5.1) mmol/L 5.5 H Chloride (98-107) mmol/L 95 L Carbon Dioxide (21.0-32.0) mmol/L 38.2 H Anion Gap (3-11) mmol/L 1.8 L BUN (7-18) mg/dL 32 H Creatinine (0.55-1.02) mg/dL 1.3 H Est GFR (CKD-EPI 2020) (mL/min/1.73m2) 46.21 Glucose (74-106) mg/dL 158 H Hemoglobin A1c (<5.7) % Calcium (8.5-10.1) mg/dL 8.5 Phosphorus (2.6-4.7) mg/dL Magnesium (1.8-2.4) mg/dL 2.1 2.0 Iron (50-170) ug/dL TIBC (250-450) ug/dL Ferritin (8-252) ng/mL Total Bilirubin (0.2-1.0) mg/dL AST (15-37) U/L ALT (14-59) U/L Alkaline Phosphatase (46-116) U/L Troponin I (<or=60) ng/L C-Reactive Protein (0.0-0.3) mg/dL NT-Pro-B Natriuret Pep (<300) pg/mL Total Protein (6.4-8.2) g/dL Albumin (3.4-5.0) g/dL Vitamin B12 (193-986) pg/mL Folate (8.6-20.0) ng/mL Procalcitonin ng/mL TSH (0.36-3.74) uIU/mL Urine Color (Yellow) Urine Clarity (Clear) Urine pH (5-8) Ur Specific [place] (1.005-1.025) Urine Protein (Negative) mg/dL Urine Ketones (Negative) mg/dL Urine Blood (Negative) Urine Nitrite (Negative) Urine Bilirubin (Negative) Urine Urobilinogen (Up TO 0.2) EU/dL Ur Leukocyte Esterase (Negative) Urine RBC (0-2) HPF Urine WBC (0-5) HPF Ur Epithelial Cells (Negative) HPF Urine Crystals (Negative) HPF Urine Bacteria (Negative) HPF Urine Casts (Negative) LPF Urine Mucus (Negative) Urine Other (Negative) Ur Culture Indicated? Urine Glucose (Negative) mg/dL Vancomycin Trough (10.0-20.0) ug/mL Urine Opiates Screen (Negative) Urine Methadone Screen (Negative) Ur Barbiturates Screen (Negative) Ur Tricyclics Screen (Negative) Ur Amphetamines Screen (Negative) U Benzodiazepines Scrn (Negative) Urine Cocaine Screen (Negative) Ur THC Screen (Negative) Ethyl Alcohol (<10) mg/dL COVID-19 Source SARS-CoV-2 (PCR) (Negative) Influenza Type A (PCR) (Negative) Influenza Type B (PCR) (Negative) Urine Legionella Ag (Negative) RSV (PCR) (Negative) Ur Strep pneumoniae Ag (Negative) Add-On Test Request Range/Units 05/12/22 05/12/22 05/13/22 06:40 17:12 00:45 WBC (4.4-10.8) 10^3/uL 16.13 H RBC (3.93-5.22) 10^6/uL 4.27 Hgb (11.2-15.7) g/dL 10.8 L Hct (36.0-46.0) % 38.0 MCV (80-95) fL 89 MCH (27.0-33.0) pg 25.3 L MCHC (32.0-36.0) % 28.4 L RDW (11.7-14.6) % 18.6 H Plt Count (130-400) 10^3/uL 357 MPV (8.0-11.0) fL 9.7 Immature Gran % 1.1 Neutrophils % 90.3 Lymphocytes % 3.4 Monocytes % 5.0 Eosinophils % 0.0 Basophils % 0.2 Nucleated RBC % (0.0-0.3) % 0.5 H Absolute Neutrophils (1.2-6.7) 10^3/uL 14.57 H Absolute Lymphocytes (1.2-3.4) 10^3/uL 0.55 L Absolute Monocytes (0.1-0.8) 10^3/uL 0.81 H Absolute Eosinophils (0.0-0.7) 10^3/uL 0.00 Absolute Basophils (0.0-0.2) 10^3/uL 0.03 RBC Morphology Polychromasia Hypochromasia Basophilic Stippling PT (9.3-11.0) sec INR (0.9-1.1) APTT (21.0-27.5) sec 36.2 H 61.0 H D-Dimer (<500) ng/mlFEU ABG Sample Site ABG pH (7.35-7.45) ABG pCO2 (35-45) mmHg ABG pO2 (80-105) mmHg ABG HCO3 (22-26) mmol/L ABG Total CO2 (23-27) mmol/L ABG O2 Saturation (95-98) % ABG Base Excess (-2-3) mmol/L VBG pH (7.31-7.41) VBG pCO2 (41-51) mmHg VBG pO2 mmHg VBG HCO3 (23-28) mmol/L VBG Total CO2 (24-29) mmol/L VBG O2 Saturation % VBG Base Excess (-2-3) mmol/L VBG Lactate (0.6-1.4) mmol/L Oxygen Liter Flow FiO2 % Sodium (136-145) mmol/L Potassium (3.5-5.1) mmol/L Chloride (98-107) mmol/L Carbon Dioxide (21.0-32.0) mmol/L Anion Gap (3-11) mmol/L BUN (7-18) mg/dL Creatinine (0.55-1.02) mg/dL Est GFR (CKD-EPI 2020) (mL/min/1.73m2) Glucose (74-106) mg/dL Hemoglobin A1c (<5.7) % Calcium (8.5-10.1) mg/dL Phosphorus (2.6-4.7) mg/dL Magnesium (1.8-2.4) mg/dL Iron (50-170) ug/dL TIBC (250-450) ug/dL Ferritin (8-252) ng/mL Total Bilirubin (0.2-1.0) mg/dL AST (15-37) U/L ALT (14-59) U/L Alkaline Phosphatase (46-116) U/L Troponin I (<or=60) ng/L C-Reactive Protein (0.0-0.3) mg/dL NT-Pro-B Natriuret Pep (<300) pg/mL Total Protein (6.4-8.2) g/dL Albumin (3.4-5.0) g/dL Vitamin B12 (193-986) pg/mL Folate (8.6-20.0) ng/mL Procalcitonin ng/mL TSH (0.36-3.74) uIU/mL Urine Color (Yellow) Urine Clarity (Clear) Urine pH (5-8) Ur Specific [place] (1.005-1.025) Urine Protein (Negative) mg/dL Urine Ketones (Negative) mg/dL Urine Blood (Negative) Urine Nitrite (Negative) Urine Bilirubin (Negative) Urine Urobilinogen (Up TO 0.2) EU/dL Ur Leukocyte Esterase (Negative) Urine RBC (0-2) HPF Urine WBC (0-5) HPF Ur Epithelial Cells (Negative) HPF Urine Crystals (Negative) HPF Urine Bacteria (Negative) HPF Urine Casts (Negative) LPF Urine Mucus (Negative) Urine Other (Negative) Ur Culture Indicated? Urine Glucose (Negative) mg/dL Vancomycin Trough (10.0-20.0) ug/mL Urine Opiates Screen (Negative) Urine Methadone Screen (Negative) Ur Barbiturates Screen (Negative) Ur Tricyclics Screen (Negative) Ur Amphetamines Screen (Negative) U Benzodiazepines Scrn (Negative) Urine Cocaine Screen (Negative) Ur THC Screen (Negative) Ethyl Alcohol (<10) mg/dL COVID-19 Source SARS-CoV-2 (PCR) (Negative) Influenza Type A (PCR) (Negative) Influenza Type B (PCR) (Negative) Urine Legionella Ag (Negative) RSV (PCR) (Negative) Ur Strep pneumoniae Ag (Negative) Add-On Test Request Range/Units 05/13/22 05/13/22 05/13/22 05:35 06:14 06:14 WBC (4.4-10.8) 10^3/uL 11.47 H RBC (3.93-5.22) 10^6/uL 3.85 L Hgb (11.2-15.7) g/dL 9.7 L Hct (36.0-46.0) % 34.0 L MCV (80-95) fL 88 MCH (27.0-33.0) pg 25.2 L MCHC (32.0-36.0) % 28.5 L RDW (11.7-14.6) % 18.1 H Plt Count (130-400) 10^3/uL 265 MPV (8.0-11.0) fL 9.8 Immature Gran % 1.2 Neutrophils % 83.9 Lymphocytes % 4.5 Monocytes % 10.3 Eosinophils % 0.0 Basophils % 0.1 Nucleated RBC % (0.0-0.3) % 0.5 H Absolute Neutrophils (1.2-6.7) 10^3/uL 9.62 H Absolute Lymphocytes (1.2-3.4) 10^3/uL 0.52 L Absolute Monocytes (0.1-0.8) 10^3/uL 1.18 H Absolute Eosinophils (0.0-0.7) 10^3/uL 0.00 Absolute Basophils (0.0-0.2) 10^3/uL 0.01 RBC Morphology Polychromasia Hypochromasia Basophilic Stippling PT (9.3-11.0) sec INR (0.9-1.1) APTT (21.0-27.5) sec D-Dimer (<500) ng/mlFEU ABG Sample Site Cancelled ABG pH (7.35-7.45) Cancelled ABG pCO2 (35-45) mmHg Cancelled ABG pO2 (80-105) mmHg Cancelled ABG HCO3 (22-26) mmol/L Cancelled ABG Total CO2 (23-27) mmol/L Cancelled ABG O2 Saturation (95-98) % Cancelled ABG Base Excess (-2-3) mmol/L Cancelled VBG pH (7.31-7.41) VBG pCO2 (41-51) mmHg VBG pO2 mmHg VBG HCO3 (23-28) mmol/L VBG Total CO2 (24-29) mmol/L VBG O2 Saturation % VBG Base Excess (-2-3) mmol/L VBG Lactate (0.6-1.4) mmol/L Oxygen Liter Flow Cancelled FiO2 % Cancelled Sodium (136-145) mmol/L 138 Potassium (3.5-5.1) mmol/L 4.4 D Chloride (98-107) mmol/L 98 Carbon Dioxide (21.0-32.0) mmol/L 38.9 H Anion Gap (3-11) mmol/L 1.1 L BUN (7-18) mg/dL 35 H Creatinine (0.55-1.02) mg/dL 1.2 H Est GFR (CKD-EPI 2020) (mL/min/1.73m2) 50.86 Glucose (74-106) mg/dL 113 H Hemoglobin A1c (<5.7) % Calcium (8.5-10.1) mg/dL 8.4 L Phosphorus (2.6-4.7) mg/dL Magnesium (1.8-2.4) mg/dL 2.1 Iron (50-170) ug/dL TIBC (250-450) ug/dL Ferritin (8-252) ng/mL Total Bilirubin (0.2-1.0) mg/dL AST (15-37) U/L ALT (14-59) U/L Alkaline Phosphatase (46-116) U/L Troponin I (<or=60) ng/L C-Reactive Protein (0.0-0.3) mg/dL NT-Pro-B Natriuret Pep (<300) pg/mL Total Protein (6.4-8.2) g/dL Albumin (3.4-5.0) g/dL Vitamin B12 (193-986) pg/mL Folate (8.6-20.0) ng/mL Procalcitonin ng/mL TSH (0.36-3.74) uIU/mL Urine Color (Yellow) Urine Clarity (Clear) Urine pH (5-8) Ur Specific [place] (1.005-1.025) Urine Protein (Negative) mg/dL Urine Ketones (Negative) mg/dL Urine Blood (Negative) Urine Nitrite (Negative) Urine Bilirubin (Negative) Urine Urobilinogen (Up TO 0.2) EU/dL Ur Leukocyte Esterase (Negative) Urine RBC (0-2) HPF Urine WBC (0-5) HPF Ur Epithelial Cells (Negative) HPF Urine Crystals (Negative) HPF Urine Bacteria (Negative) HPF Urine Casts (Negative) LPF Urine Mucus (Negative) Urine Other (Negative) Ur Culture Indicated? Urine Glucose (Negative) mg/dL Vancomycin Trough (10.0-20.0) ug/mL Urine Opiates Screen (Negative) Urine Methadone Screen (Negative) Ur Barbiturates Screen (Negative) Ur Tricyclics Screen (Negative) Ur Amphetamines Screen (Negative) U Benzodiazepines Scrn (Negative) Urine Cocaine Screen (Negative) Ur THC Screen (Negative) Ethyl Alcohol (<10) mg/dL COVID-19 Source SARS-CoV-2 (PCR) (Negative) Influenza Type A (PCR) (Negative) Influenza Type B (PCR) (Negative) Urine Legionella Ag (Negative) RSV (PCR) (Negative) Ur Strep pneumoniae Ag (Negative) Add-On Test Request Range/Units 05/13/22 05/13/22 05/13/22 06:14 06:14 08:51 WBC (4.4-10.8) 10^3/uL RBC (3.93-5.22) 10^6/uL Hgb (11.2-15.7) g/dL Hct (36.0-46.0) % MCV (80-95) fL MCH (27.0-33.0) pg MCHC (32.0-36.0) % RDW (11.7-14.6) % Plt Count (130-400) 10^3/uL MPV (8.0-11.0) fL Immature Gran % Neutrophils % Lymphocytes % Monocytes % Eosinophils % Basophils % Nucleated RBC % (0.0-0.3) % Absolute Neutrophils (1.2-6.7) 10^3/uL Absolute Lymphocytes (1.2-3.4) 10^3/uL Absolute Monocytes (0.1-0.8) 10^3/uL Absolute Eosinophils (0.0-0.7) 10^3/uL Absolute Basophils (0.0-0.2) 10^3/uL RBC Morphology Polychromasia Hypochromasia Basophilic Stippling PT (9.3-11.0) sec INR (0.9-1.1) APTT (21.0-27.5) sec 52.3 H D-Dimer (<500) ng/mlFEU ABG Sample Site ABG pH (7.35-7.45) ABG pCO2 (35-45) mmHg ABG pO2 (80-105) mmHg ABG HCO3 (22-26) mmol/L ABG Total CO2 (23-27) mmol/L ABG O2 Saturation (95-98) % ABG Base Excess (-2-3) mmol/L VBG pH (7.31-7.41) 7.41 VBG pCO2 (41-51) mmHg 60 H VBG pO2 mmHg 76 VBG HCO3 (23-28) mmol/L 38 H VBG Total CO2 (24-29) mmol/L 36 H VBG O2 Saturation % 95 VBG Base Excess (-2-3) mmol/L 14 H VBG Lactate (0.6-1.4) mmol/L Oxygen Liter Flow FiO2 % Sodium (136-145) mmol/L Potassium (3.5-5.1) mmol/L Chloride (98-107) mmol/L Carbon Dioxide (21.0-32.0) mmol/L Anion Gap (3-11) mmol/L BUN (7-18) mg/dL Creatinine (0.55-1.02) mg/dL Est GFR (CKD-EPI 2020) (mL/min/1.73m2) Glucose (74-106) mg/dL Hemoglobin A1c (<5.7) % Calcium (8.5-10.1) mg/dL Phosphorus (2.6-4.7) mg/dL Magnesium (1.8-2.4) mg/dL Iron (50-170) ug/dL TIBC (250-450) ug/dL Ferritin (8-252) ng/mL Total Bilirubin (0.2-1.0) mg/dL AST (15-37) U/L ALT (14-59) U/L Alkaline Phosphatase (46-116) U/L Troponin I (<or=60) ng/L C-Reactive Protein (0.0-0.3) mg/dL NT-Pro-B Natriuret Pep (<300) pg/mL Total Protein (6.4-8.2) g/dL Albumin (3.4-5.0) g/dL Vitamin B12 (193-986) pg/mL Folate (8.6-20.0) ng/mL Procalcitonin ng/mL < 0.1 TSH (0.36-3.74) uIU/mL Urine Color (Yellow) Urine Clarity (Clear) Urine pH (5-8) Ur Specific [place] (1.005-1.025) Urine Protein (Negative) mg/dL Urine Ketones (Negative) mg/dL Urine Blood (Negative) Urine Nitrite (Negative) Urine Bilirubin (Negative) Urine Urobilinogen (Up TO 0.2) EU/dL Ur Leukocyte Esterase (Negative) Urine RBC (0-2) HPF Urine WBC (0-5) HPF Ur Epithelial Cells (Negative) HPF Urine Crystals (Negative) HPF Urine Bacteria (Negative) HPF Urine Casts (Negative) LPF Urine Mucus (Negative) Urine Other (Negative) Ur Culture Indicated? Urine Glucose (Negative) mg/dL Vancomycin Trough (10.0-20.0) ug/mL Urine Opiates Screen (Negative) Urine Methadone Screen (Negative) Ur Barbiturates Screen (Negative) Ur Tricyclics Screen (Negative) Ur Amphetamines Screen (Negative) U Benzodiazepines Scrn (Negative) Urine Cocaine Screen (Negative) Ur THC Screen (Negative) Ethyl Alcohol (<10) mg/dL COVID-19 Source SARS-CoV-2 (PCR) (Negative) Influenza Type A (PCR) (Negative) Influenza Type B (PCR) (Negative) Urine Legionella Ag (Negative) RSV (PCR) (Negative) Ur Strep pneumoniae Ag (Negative) Add-On Test Request Range/Units 05/14/22 05/14/22 05/14/22 03:18 05:20 05:20 WBC (4.4-10.8) 10^3/uL RBC (3.93-5.22) 10^6/uL Hgb (11.2-15.7) g/dL Hct (36.0-46.0) % MCV (80-95) fL MCH (27.0-33.0) pg MCHC (32.0-36.0) % RDW (11.7-14.6) % Plt Count (130-400) 10^3/uL MPV (8.0-11.0) fL Immature Gran % Neutrophils % Lymphocytes % Monocytes % Eosinophils % Basophils % Nucleated RBC % (0.0-0.3) % Absolute Neutrophils (1.2-6.7) 10^3/uL Absolute Lymphocytes (1.2-3.4) 10^3/uL Absolute Monocytes (0.1-0.8) 10^3/uL Absolute Eosinophils (0.0-0.7) 10^3/uL Absolute Basophils (0.0-0.2) 10^3/uL RBC Morphology Polychromasia Hypochromasia Basophilic Stippling PT (9.3-11.0) sec INR (0.9-1.1) APTT (21.0-27.5) sec 21.4 D-Dimer (<500) ng/mlFEU ABG Sample Site Cancelled ABG pH (7.35-7.45) Cancelled ABG pCO2 (35-45) mmHg Cancelled ABG pO2 (80-105) mmHg Cancelled ABG HCO3 (22-26) mmol/L Cancelled ABG Total CO2 (23-27) mmol/L Cancelled ABG O2 Saturation (95-98) % Cancelled ABG Base Excess (-2-3) mmol/L Cancelled VBG pH (7.31-7.41) VBG pCO2 (41-51) mmHg VBG pO2 mmHg VBG HCO3 (23-28) mmol/L VBG Total CO2 (24-29) mmol/L VBG O2 Saturation % VBG Base Excess (-2-3) mmol/L VBG Lactate (0.6-1.4) mmol/L Oxygen Liter Flow Cancelled FiO2 % Cancelled Sodium (136-145) mmol/L 140 Potassium (3.5-5.1) mmol/L 3.9 Chloride (98-107) mmol/L 99 Carbon Dioxide (21.0-32.0) mmol/L 41.5 H Anion Gap (3-11) mmol/L -0.5 L BUN (7-18) mg/dL 34 H Creatinine (0.55-1.02) mg/dL 1.2 H Est GFR (CKD-EPI 2020) (mL/min/1.73m2) 50.86 Glucose (74-106) mg/dL 123 H Hemoglobin A1c (<5.7) % Calcium (8.5-10.1) mg/dL 8.3 L Phosphorus (2.6-4.7) mg/dL Magnesium (1.8-2.4) mg/dL 2.0 Iron (50-170) ug/dL TIBC (250-450) ug/dL Ferritin (8-252) ng/mL Total Bilirubin (0.2-1.0) mg/dL AST (15-37) U/L ALT (14-59) U/L Alkaline Phosphatase (46-116) U/L Troponin I (<or=60) ng/L C-Reactive Protein (0.0-0.3) mg/dL NT-Pro-B Natriuret Pep (<300) pg/mL Total Protein (6.4-8.2) g/dL Albumin (3.4-5.0) g/dL Vitamin B12 (193-986) pg/mL Folate (8.6-20.0) ng/mL Procalcitonin ng/mL TSH (0.36-3.74) uIU/mL Urine Color (Yellow) Urine Clarity (Clear) Urine pH (5-8) Ur Specific [place] (1.005-1.025) Urine Protein (Negative) mg/dL Urine Ketones (Negative) mg/dL Urine Blood (Negative) Urine Nitrite (Negative) Urine Bilirubin (Negative) Urine Urobilinogen (Up TO 0.2) EU/dL Ur Leukocyte Esterase (Negative) Urine RBC (0-2) HPF Urine WBC (0-5) HPF Ur Epithelial Cells (Negative) HPF Urine Crystals (Negative) HPF Urine Bacteria (Negative) HPF Urine Casts (Negative) LPF Urine Mucus (Negative) Urine Other (Negative) Ur Culture Indicated? Urine Glucose (Negative) mg/dL Vancomycin Trough (10.0-20.0) ug/mL Urine Opiates Screen (Negative) Urine Methadone Screen (Negative) Ur Barbiturates Screen (Negative) Ur Tricyclics Screen (Negative) Ur Amphetamines Screen (Negative) U Benzodiazepines Scrn (Negative) Urine Cocaine Screen (Negative) Ur THC Screen (Negative) Ethyl Alcohol (<10) mg/dL COVID-19 Source SARS-CoV-2 (PCR) (Negative) Influenza Type A (PCR) (Negative) Influenza Type B (PCR) (Negative) Urine Legionella Ag (Negative) RSV (PCR) (Negative) Ur Strep pneumoniae Ag (Negative) Add-On Test Request Range/Units 05/14/22 05/14/22 05/14/22 05:20 07:41 07:45 WBC (4.4-10.8) 10^3/uL 9.29 RBC (3.93-5.22) 10^6/uL 3.55 L Hgb (11.2-15.7) g/dL 9.2 L Hct (36.0-46.0) % 31.9 L MCV (80-95) fL 90 MCH (27.0-33.0) pg 25.9 L MCHC (32.0-36.0) % 28.8 L RDW (11.7-14.6) % 17.7 H Plt Count (130-400) 10^3/uL 222 MPV (8.0-11.0) fL 9.8 Immature Gran % 0.9 Neutrophils % 80.7 Lymphocytes % 7.1 Monocytes % 11.2 Eosinophils % 0.0 Basophils % 0.1 Nucleated RBC % (0.0-0.3) % 0.4 H Absolute Neutrophils (1.2-6.7) 10^3/uL 7.50 H Absolute Lymphocytes (1.2-3.4) 10^3/uL 0.66 L Absolute Monocytes (0.1-0.8) 10^3/uL 1.04 H Absolute Eosinophils (0.0-0.7) 10^3/uL 0.00 Absolute Basophils (0.0-0.2) 10^3/uL 0.01 RBC Morphology Polychromasia Hypochromasia Basophilic Stippling PT (9.3-11.0) sec INR (0.9-1.1) APTT (21.0-27.5) sec D-Dimer (<500) ng/mlFEU ABG Sample Site Right Radial ABG pH (7.35-7.45) 7.38 ABG pCO2 (35-45) mmHg 69 H* ABG pO2 (80-105) mmHg 81 ABG HCO3 (22-26) mmol/L 41 H ABG Total CO2 (23-27) mmol/L 39 H ABG O2 Saturation (95-98) % 97 ABG Base Excess (-2-3) mmol/L > 15 H VBG pH (7.31-7.41) VBG pCO2 (41-51) mmHg VBG pO2 mmHg VBG HCO3 (23-28) mmol/L VBG Total CO2 (24-29) mmol/L VBG O2 Saturation % VBG Base Excess (-2-3) mmol/L VBG Lactate (0.6-1.4) mmol/L 0.7 Oxygen Liter Flow VT350/RR14/P5 FiO2 % 40 Sodium (136-145) mmol/L Potassium (3.5-5.1) mmol/L Chloride (98-107) mmol/L Carbon Dioxide (21.0-32.0) mmol/L Anion Gap (3-11) mmol/L BUN (7-18) mg/dL Creatinine (0.55-1.02) mg/dL Est GFR (CKD-EPI 2020) (mL/min/1.73m2) Glucose (74-106) mg/dL Hemoglobin A1c (<5.7) % Calcium (8.5-10.1) mg/dL Phosphorus (2.6-4.7) mg/dL Magnesium (1.8-2.4) mg/dL Iron (50-170) ug/dL TIBC (250-450) ug/dL Ferritin (8-252) ng/mL Total Bilirubin (0.2-1.0) mg/dL AST (15-37) U/L ALT (14-59) U/L Alkaline Phosphatase (46-116) U/L Troponin I (<or=60) ng/L C-Reactive Protein (0.0-0.3) mg/dL NT-Pro-B Natriuret Pep (<300) pg/mL Total Protein (6.4-8.2) g/dL Albumin (3.4-5.0) g/dL Vitamin B12 (193-986) pg/mL Folate (8.6-20.0) ng/mL Procalcitonin ng/mL TSH (0.36-3.74) uIU/mL Urine Color (Yellow) Urine Clarity (Clear) Urine pH (5-8) Ur Specific [place] (1.005-1.025) Urine Protein (Negative) mg/dL Urine Ketones (Negative) mg/dL Urine Blood (Negative) Urine Nitrite (Negative) Urine Bilirubin (Negative) Urine Urobilinogen (Up TO 0.2) EU/dL Ur Leukocyte Esterase (Negative) Urine RBC (0-2) HPF Urine WBC (0-5) HPF Ur Epithelial Cells (Negative) HPF Urine Crystals (Negative) HPF Urine Bacteria (Negative) HPF Urine Casts (Negative) LPF Urine Mucus (Negative) Urine Other (Negative) Ur Culture Indicated? Urine Glucose (Negative) mg/dL Vancomycin Trough (10.0-20.0) ug/mL Urine Opiates Screen (Negative) Urine Methadone Screen (Negative) Ur Barbiturates Screen (Negative) Ur Tricyclics Screen (Negative) Ur Amphetamines Screen (Negative) U Benzodiazepines Scrn (Negative) Urine Cocaine Screen (Negative) Ur THC Screen (Negative) Ethyl Alcohol (<10) mg/dL COVID-19 Source SARS-CoV-2 (PCR) (Negative) Influenza Type A (PCR) (Negative) Influenza Type B (PCR) (Negative) Urine Legionella Ag (Negative) RSV (PCR) (Negative) Ur Strep pneumoniae Ag (Negative) Add-On Test Request Range/Units 05/14/22 05/14/22 05/15/22 09:20 18:20 05:35 WBC (4.4-10.8) 10^3/uL RBC (3.93-5.22) 10^6/uL Hgb (11.2-15.7) g/dL Hct (36.0-46.0) % MCV (80-95) fL MCH (27.0-33.0) pg MCHC (32.0-36.0) % RDW (11.7-14.6) % Plt Count (130-400) 10^3/uL MPV (8.0-11.0) fL Immature Gran % Neutrophils % Lymphocytes % Monocytes % Eosinophils % Basophils % Nucleated RBC % (0.0-0.3) % Absolute Neutrophils (1.2-6.7) 10^3/uL Absolute Lymphocytes (1.2-3.4) 10^3/uL Absolute Monocytes (0.1-0.8) 10^3/uL Absolute Eosinophils (0.0-0.7) 10^3/uL Absolute Basophils (0.0-0.2) 10^3/uL RBC Morphology Polychromasia Hypochromasia Basophilic Stippling PT (9.3-11.0) sec INR (0.9-1.1) APTT (21.0-27.5) sec D-Dimer (<500) ng/mlFEU ABG Sample Site Cancelled ABG pH (7.35-7.45) Cancelled ABG pCO2 (35-45) mmHg Cancelled ABG pO2 (80-105) mmHg Cancelled ABG HCO3 (22-26) mmol/L Cancelled ABG Total CO2 (23-27) mmol/L Cancelled ABG O2 Saturation (95-98) % Cancelled ABG Base Excess (-2-3) mmol/L Cancelled VBG pH (7.31-7.41) VBG pCO2 (41-51) mmHg VBG pO2 mmHg VBG HCO3 (23-28) mmol/L VBG Total CO2 (24-29) mmol/L VBG O2 Saturation % VBG Base Excess (-2-3) mmol/L VBG Lactate (0.6-1.4) mmol/L Oxygen Liter Flow Cancelled FiO2 % Cancelled Sodium (136-145) mmol/L Potassium (3.5-5.1) mmol/L Chloride (98-107) mmol/L Carbon Dioxide (21.0-32.0) mmol/L Anion Gap (3-11) mmol/L BUN (7-18) mg/dL Creatinine (0.55-1.02) mg/dL Est GFR (CKD-EPI 2020) (mL/min/1.73m2) Glucose (74-106) mg/dL Hemoglobin A1c (<5.7) % Calcium (8.5-10.1) mg/dL Phosphorus (2.6-4.7) mg/dL Magnesium (1.8-2.4) mg/dL Iron (50-170) ug/dL TIBC (250-450) ug/dL Ferritin (8-252) ng/mL Total Bilirubin (0.2-1.0) mg/dL AST (15-37) U/L ALT (14-59) U/L Alkaline Phosphatase (46-116) U/L Troponin I (<or=60) ng/L C-Reactive Protein (0.0-0.3) mg/dL NT-Pro-B Natriuret Pep (<300) pg/mL Total Protein (6.4-8.2) g/dL Albumin (3.4-5.0) g/dL Vitamin B12 (193-986) pg/mL Folate (8.6-20.0) ng/mL Procalcitonin ng/mL TSH (0.36-3.74) uIU/mL Urine Color (Yellow) Yellow Urine Clarity (Clear) Clear Urine pH (5-8) 6.0 Ur Specific [place] (1.005-1.025) 1.025 Urine Protein (Negative) mg/dL Negative Urine Ketones (Negative) mg/dL Negative Urine Blood (Negative) Moderate H Urine Nitrite (Negative) Negative Urine Bilirubin (Negative) Negative Urine Urobilinogen (Up TO 0.2) EU/dL 0.2 Ur Leukocyte Esterase (Negative) Negative Urine RBC (0-2) HPF >50 H Urine WBC (0-5) HPF Negative Ur Epithelial Cells (Negative) HPF Few Urine Crystals (Negative) HPF Moderate Uric Acid Urine Bacteria (Negative) HPF Negative Urine Casts (Negative) LPF Negative Urine Mucus (Negative) Negative Urine Other (Negative) Ur Culture Indicated? No Urine Glucose (Negative) mg/dL Negative Vancomycin Trough (10.0-20.0) ug/mL Urine Opiates Screen (Negative) Urine Methadone Screen (Negative) Ur Barbiturates Screen (Negative) Ur Tricyclics Screen (Negative) Ur Amphetamines Screen (Negative) U Benzodiazepines Scrn (Negative) Urine Cocaine Screen (Negative) Ur THC Screen (Negative) Ethyl Alcohol (<10) mg/dL COVID-19 Source Nasopharynx SARS-CoV-2 (PCR) (Negative) Negative Influenza Type A (PCR) (Negative) Negative Influenza Type B (PCR) (Negative) Negative Urine Legionella Ag (Negative) RSV (PCR) (Negative) Negative Ur Strep pneumoniae Ag (Negative) Add-On Test Request Range/Units 05/15/22 05/15/22 05/15/22 05:50 05:50 15:35 WBC (4.4-10.8) 10^3/uL 9.19 RBC (3.93-5.22) 10^6/uL 3.61 L Hgb (11.2-15.7) g/dL 9.0 L Hct (36.0-46.0) % 32.5 L MCV (80-95) fL 90 MCH (27.0-33.0) pg 24.9 L MCHC (32.0-36.0) % 27.7 L RDW (11.7-14.6) % 17.7 H Plt Count (130-400) 10^3/uL 234 MPV (8.0-11.0) fL 10.0 Immature Gran % 1.1 Neutrophils % 80.1 Lymphocytes % 7.9 Monocytes % 10.4 Eosinophils % 0.4 Basophils % 0.1 Nucleated RBC % (0.0-0.3) % 0.3 Absolute Neutrophils (1.2-6.7) 10^3/uL 7.35 H Absolute Lymphocytes (1.2-3.4) 10^3/uL 0.73 L Absolute Monocytes (0.1-0.8) 10^3/uL 0.96 H Absolute Eosinophils (0.0-0.7) 10^3/uL 0.04 Absolute Basophils (0.0-0.2) 10^3/uL 0.01 RBC Morphology See Below Polychromasia Hypochromasia 2+ Basophilic Stippling Present PT (9.3-11.0) sec INR (0.9-1.1) APTT (21.0-27.5) sec 17.8 L D-Dimer (<500) ng/mlFEU ABG Sample Site ABG pH (7.35-7.45) ABG pCO2 (35-45) mmHg ABG pO2 (80-105) mmHg ABG HCO3 (22-26) mmol/L ABG Total CO2 (23-27) mmol/L ABG O2 Saturation (95-98) % ABG Base Excess (-2-3) mmol/L VBG pH (7.31-7.41) VBG pCO2 (41-51) mmHg VBG pO2 mmHg VBG HCO3 (23-28) mmol/L VBG Total CO2 (24-29) mmol/L VBG O2 Saturation % VBG Base Excess (-2-3) mmol/L VBG Lactate (0.6-1.4) mmol/L Oxygen Liter Flow FiO2 % Sodium (136-145) mmol/L 144 Potassium (3.5-5.1) mmol/L 3.7 Chloride (98-107) mmol/L 100 Carbon Dioxide (21.0-32.0) mmol/L 41.9 H Anion Gap (3-11) mmol/L 2.1 L BUN (7-18) mg/dL 24 H Creatinine (0.55-1.02) mg/dL 0.8 Est GFR (CKD-EPI 2020) (mL/min/1.73m2) 82.74 Glucose (74-106) mg/dL 114 H Hemoglobin A1c (<5.7) % Calcium (8.5-10.1) mg/dL 8.6 Phosphorus (2.6-4.7) mg/dL Magnesium (1.8-2.4) mg/dL 1.9 Iron (50-170) ug/dL TIBC (250-450) ug/dL Ferritin (8-252) ng/mL Total Bilirubin (0.2-1.0) mg/dL AST (15-37) U/L ALT (14-59) U/L Alkaline Phosphatase (46-116) U/L Troponin I (<or=60) ng/L C-Reactive Protein (0.0-0.3) mg/dL NT-Pro-B Natriuret Pep (<300) pg/mL Total Protein (6.4-8.2) g/dL Albumin (3.4-5.0) g/dL Vitamin B12 (193-986) pg/mL Folate (8.6-20.0) ng/mL Procalcitonin ng/mL TSH (0.36-3.74) uIU/mL Urine Color (Yellow) Urine Clarity (Clear) Urine pH (5-8) Ur Specific [place] (1.005-1.025) Urine Protein (Negative) mg/dL Urine Ketones (Negative) mg/dL Urine Blood (Negative) Urine Nitrite (Negative) Urine Bilirubin (Negative) Urine Urobilinogen (Up TO 0.2) EU/dL Ur Leukocyte Esterase (Negative) Urine RBC (0-2) HPF Urine WBC (0-5) HPF Ur Epithelial Cells (Negative) HPF Urine Crystals (Negative) HPF Urine Bacteria (Negative) HPF Urine Casts (Negative) LPF Urine Mucus (Negative) Urine Other (Negative) Ur Culture Indicated? Urine Glucose (Negative) mg/dL Vancomycin Trough (10.0-20.0) ug/mL Urine Opiates Screen (Negative) Urine Methadone Screen (Negative) Ur Barbiturates Screen (Negative) Ur Tricyclics Screen (Negative) Ur Amphetamines Screen (Negative) U Benzodiazepines Scrn (Negative) Urine Cocaine Screen (Negative) Ur THC Screen (Negative) Ethyl Alcohol (<10) mg/dL COVID-19 Source SARS-CoV-2 (PCR) (Negative) Influenza Type A (PCR) (Negative) Influenza Type B (PCR) (Negative) Urine Legionella Ag (Negative) RSV (PCR) (Negative) Ur Strep pneumoniae Ag (Negative) Add-On Test Request Range/Units 05/16/22 05/16/22 05/16/22 00:04 03:35 07:40 WBC (4.4-10.8) 10^3/uL RBC (3.93-5.22) 10^6/uL Hgb (11.2-15.7) g/dL Hct (36.0-46.0) % MCV (80-95) fL MCH (27.0-33.0) pg MCHC (32.0-36.0) % RDW (11.7-14.6) % Plt Count (130-400) 10^3/uL MPV (8.0-11.0) fL Immature Gran % Neutrophils % Lymphocytes % Monocytes % Eosinophils % Basophils % Nucleated RBC % (0.0-0.3) % Absolute Neutrophils (1.2-6.7) 10^3/uL Absolute Lymphocytes (1.2-3.4) 10^3/uL Absolute Monocytes (0.1-0.8) 10^3/uL Absolute Eosinophils (0.0-0.7) 10^3/uL Absolute Basophils (0.0-0.2) 10^3/uL RBC Morphology Polychromasia Hypochromasia Basophilic Stippling PT (9.3-11.0) sec INR (0.9-1.1) APTT (21.0-27.5) sec 33.6 H 34.7 H D-Dimer (<500) ng/mlFEU ABG Sample Site ABG pH (7.35-7.45) ABG pCO2 (35-45) mmHg ABG pO2 (80-105) mmHg ABG HCO3 (22-26) mmol/L ABG Total CO2 (23-27) mmol/L ABG O2 Saturation (95-98) % ABG Base Excess (-2-3) mmol/L VBG pH (7.31-7.41) VBG pCO2 (41-51) mmHg VBG pO2 mmHg VBG HCO3 (23-28) mmol/L VBG Total CO2 (24-29) mmol/L VBG O2 Saturation % VBG Base Excess (-2-3) mmol/L VBG Lactate (0.6-1.4) mmol/L Oxygen Liter Flow FiO2 % Sodium (136-145) mmol/L Potassium (3.5-5.1) mmol/L Chloride (98-107) mmol/L Carbon Dioxide (21.0-32.0) mmol/L Anion Gap (3-11) mmol/L BUN (7-18) mg/dL Creatinine (0.55-1.02) mg/dL Est GFR (CKD-EPI 2020) (mL/min/1.73m2) Glucose (74-106) mg/dL Hemoglobin A1c (<5.7) % Calcium (8.5-10.1) mg/dL Phosphorus (2.6-4.7) mg/dL Magnesium (1.8-2.4) mg/dL Iron (50-170) ug/dL TIBC (250-450) ug/dL Ferritin (8-252) ng/mL Total Bilirubin (0.2-1.0) mg/dL AST (15-37) U/L ALT (14-59) U/L Alkaline Phosphatase (46-116) U/L Troponin I (<or=60) ng/L C-Reactive Protein (0.0-0.3) mg/dL NT-Pro-B Natriuret Pep (<300) pg/mL Total Protein (6.4-8.2) g/dL Albumin (3.4-5.0) g/dL Vitamin B12 (193-986) pg/mL Folate (8.6-20.0) ng/mL Procalcitonin ng/mL TSH (0.36-3.74) uIU/mL Urine Color (Yellow) Urine Clarity (Clear) Urine pH (5-8) Ur Specific [place] (1.005-1.025) Urine Protein (Negative) mg/dL Urine Ketones (Negative) mg/dL Urine Blood (Negative) Urine Nitrite (Negative) Urine Bilirubin (Negative) Urine Urobilinogen (Up TO 0.2) EU/dL Ur Leukocyte Esterase (Negative) Urine RBC (0-2) HPF Urine WBC (0-5) HPF Ur Epithelial Cells (Negative) HPF Urine Crystals (Negative) HPF Urine Bacteria (Negative) HPF Urine Casts (Negative) LPF Urine Mucus (Negative) Urine Other (Negative) Ur Culture Indicated? Urine Glucose (Negative) mg/dL Vancomycin Trough (10.0-20.0) ug/mL 18.1 Urine Opiates Screen (Negative) Urine Methadone Screen (Negative) Ur Barbiturates Screen (Negative) Ur Tricyclics Screen (Negative) Ur Amphetamines Screen (Negative) U Benzodiazepines Scrn (Negative) Urine Cocaine Screen (Negative) Ur THC Screen (Negative) Ethyl Alcohol (<10) mg/dL COVID-19 Source SARS-CoV-2 (PCR) (Negative) Influenza Type A (PCR) (Negative) Influenza Type B (PCR) (Negative) Urine Legionella Ag (Negative) RSV (PCR) (Negative) Ur Strep pneumoniae Ag (Negative) Add-On Test Request Range/Units 05/16/22 05/16/22 05/16/22 07:40 07:40 07:40 WBC (4.4-10.8) 10^3/uL 9.30 RBC (3.93-5.22) 10^6/uL 3.59 L Hgb (11.2-15.7) g/dL 9.0 L Hct (36.0-46.0) % 31.9 L MCV (80-95) fL 89 MCH (27.0-33.0) pg 25.1 L MCHC (32.0-36.0) % 28.2 L RDW (11.7-14.6) % 17.5 H Plt Count (130-400) 10^3/uL 232 MPV (8.0-11.0) fL 9.8 Immature Gran % 1.2 Neutrophils % 80.1 Lymphocytes % 6.7 Monocytes % 10.5 Eosinophils % 1.3 Basophils % 0.2 Nucleated RBC % (0.0-0.3) % 0.2 Absolute Neutrophils (1.2-6.7) 10^3/uL 7.45 H Absolute Lymphocytes (1.2-3.4) 10^3/uL 0.62 L Absolute Monocytes (0.1-0.8) 10^3/uL 0.98 H Absolute Eosinophils (0.0-0.7) 10^3/uL 0.12 Absolute Basophils (0.0-0.2) 10^3/uL 0.02 RBC Morphology Polychromasia Hypochromasia Basophilic Stippling PT (9.3-11.0) sec INR (0.9-1.1) APTT (21.0-27.5) sec 45.3 H D-Dimer (<500) ng/mlFEU ABG Sample Site ABG pH (7.35-7.45) ABG pCO2 (35-45) mmHg ABG pO2 (80-105) mmHg ABG HCO3 (22-26) mmol/L ABG Total CO2 (23-27) mmol/L ABG O2 Saturation (95-98) % ABG Base Excess (-2-3) mmol/L VBG pH (7.31-7.41) VBG pCO2 (41-51) mmHg VBG pO2 mmHg VBG HCO3 (23-28) mmol/L VBG Total CO2 (24-29) mmol/L VBG O2 Saturation % VBG Base Excess (-2-3) mmol/L VBG Lactate (0.6-1.4) mmol/L Oxygen Liter Flow FiO2 % Sodium (136-145) mmol/L 143 Potassium (3.5-5.1) mmol/L 3.3 L Chloride (98-107) mmol/L 100 Carbon Dioxide (21.0-32.0) mmol/L 44.0 H Anion Gap (3-11) mmol/L -1.0 L BUN (7-18) mg/dL 21 H Creatinine (0.55-1.02) mg/dL 1.0 Est GFR (CKD-EPI 2020) (mL/min/1.73m2) 63.30 Glucose (74-106) mg/dL 102 Hemoglobin A1c (<5.7) % Calcium (8.5-10.1) mg/dL 8.6 Phosphorus (2.6-4.7) mg/dL Magnesium (1.8-2.4) mg/dL 1.8 Iron (50-170) ug/dL TIBC (250-450) ug/dL Ferritin (8-252) ng/mL Total Bilirubin (0.2-1.0) mg/dL AST (15-37) U/L ALT (14-59) U/L Alkaline Phosphatase (46-116) U/L Troponin I (<or=60) ng/L C-Reactive Protein (0.0-0.3) mg/dL NT-Pro-B Natriuret Pep (<300) pg/mL Total Protein (6.4-8.2) g/dL Albumin (3.4-5.0) g/dL Vitamin B12 (193-986) pg/mL Folate (8.6-20.0) ng/mL Procalcitonin ng/mL TSH (0.36-3.74) uIU/mL Urine Color (Yellow) Urine Clarity (Clear) Urine pH (5-8) Ur Specific [place] (1.005-1.025) Urine Protein (Negative) mg/dL Urine Ketones (Negative) mg/dL Urine Blood (Negative) Urine Nitrite (Negative) Urine Bilirubin (Negative) Urine Urobilinogen (Up TO 0.2) EU/dL Ur Leukocyte Esterase (Negative) Urine RBC (0-2) HPF Urine WBC (0-5) HPF Ur Epithelial Cells (Negative) HPF Urine Crystals (Negative) HPF Urine Bacteria (Negative) HPF Urine Casts (Negative) LPF Urine Mucus (Negative) Urine Other (Negative) Ur Culture Indicated? Urine Glucose (Negative) mg/dL Vancomycin Trough (10.0-20.0) ug/mL Urine Opiates Screen (Negative) Urine Methadone Screen (Negative) Ur Barbiturates Screen (Negative) Ur Tricyclics Screen (Negative) Ur Amphetamines Screen (Negative) U Benzodiazepines Scrn (Negative) Urine Cocaine Screen (Negative) Ur THC Screen (Negative) Ethyl Alcohol (<10) mg/dL COVID-19 Source SARS-CoV-2 (PCR) (Negative) Influenza Type A (PCR) (Negative) Influenza Type B (PCR) (Negative) Urine Legionella Ag (Negative) RSV (PCR) (Negative) Ur Strep pneumoniae Ag (Negative) Add-On Test Request Range/Units 05/16/22 05/16/22 05/16/22 11:20 21:00 21:03 WBC (4.4-10.8) 10^3/uL RBC (3.93-5.22) 10^6/uL Hgb (11.2-15.7) g/dL Hct (36.0-46.0) % MCV (80-95) fL MCH (27.0-33.0) pg MCHC (32.0-36.0) % RDW (11.7-14.6) % Plt Count (130-400) 10^3/uL MPV (8.0-11.0) fL Immature Gran % Neutrophils % Lymphocytes % Monocytes % Eosinophils % Basophils % Nucleated RBC % (0.0-0.3) % Absolute Neutrophils (1.2-6.7) 10^3/uL Absolute Lymphocytes (1.2-3.4) 10^3/uL Absolute Monocytes (0.1-0.8) 10^3/uL Absolute Eosinophils (0.0-0.7) 10^3/uL Absolute Basophils (0.0-0.2) 10^3/uL RBC Morphology Polychromasia Hypochromasia Basophilic Stippling PT (9.3-11.0) sec INR (0.9-1.1) APTT (21.0-27.5) sec Cancelled 51.0 H D-Dimer (<500) ng/mlFEU ABG Sample Site ABG pH (7.35-7.45) ABG pCO2 (35-45) mmHg ABG pO2 (80-105) mmHg ABG HCO3 (22-26) mmol/L ABG Total CO2 (23-27) mmol/L ABG O2 Saturation (95-98) % ABG Base Excess (-2-3) mmol/L VBG pH (7.31-7.41) VBG pCO2 (41-51) mmHg VBG pO2 mmHg VBG HCO3 (23-28) mmol/L VBG Total CO2 (24-29) mmol/L VBG O2 Saturation % VBG Base Excess (-2-3) mmol/L VBG Lactate (0.6-1.4) mmol/L 0.7 Oxygen Liter Flow FiO2 % Sodium (136-145) mmol/L Potassium (3.5-5.1) mmol/L Chloride (98-107) mmol/L Carbon Dioxide (21.0-32.0) mmol/L Anion Gap (3-11) mmol/L BUN (7-18) mg/dL Creatinine (0.55-1.02) mg/dL Est GFR (CKD-EPI 2020) (mL/min/1.73m2) Glucose (74-106) mg/dL Hemoglobin A1c (<5.7) % Calcium (8.5-10.1) mg/dL Phosphorus (2.6-4.7) mg/dL Magnesium (1.8-2.4) mg/dL Iron (50-170) ug/dL TIBC (250-450) ug/dL Ferritin (8-252) ng/mL Total Bilirubin (0.2-1.0) mg/dL AST (15-37) U/L ALT (14-59) U/L Alkaline Phosphatase (46-116) U/L Troponin I (<or=60) ng/L C-Reactive Protein (0.0-0.3) mg/dL NT-Pro-B Natriuret Pep (<300) pg/mL Total Protein (6.4-8.2) g/dL Albumin (3.4-5.0) g/dL Vitamin B12 (193-986) pg/mL Folate (8.6-20.0) ng/mL Procalcitonin ng/mL TSH (0.36-3.74) uIU/mL Urine Color (Yellow) Urine Clarity (Clear) Urine pH (5-8) Ur Specific [place] (1.005-1.025) Urine Protein (Negative) mg/dL Urine Ketones (Negative) mg/dL Urine Blood (Negative) Urine Nitrite (Negative) Urine Bilirubin (Negative) Urine Urobilinogen (Up TO 0.2) EU/dL Ur Leukocyte Esterase (Negative) Urine RBC (0-2) HPF Urine WBC (0-5) HPF Ur Epithelial Cells (Negative) HPF Urine Crystals (Negative) HPF Urine Bacteria (Negative) HPF Urine Casts (Negative) LPF Urine Mucus (Negative) Urine Other (Negative) Ur Culture Indicated? Urine Glucose (Negative) mg/dL Vancomycin Trough (10.0-20.0) ug/mL Urine Opiates Screen (Negative) Urine Methadone Screen (Negative) Ur Barbiturates Screen (Negative) Ur Tricyclics Screen (Negative) Ur Amphetamines Screen (Negative) U Benzodiazepines Scrn (Negative) Urine Cocaine Screen (Negative) Ur THC Screen (Negative) Ethyl Alcohol (<10) mg/dL COVID-19 Source SARS-CoV-2 (PCR) (Negative) Influenza Type A (PCR) (Negative) Influenza Type B (PCR) (Negative) Urine Legionella Ag (Negative) RSV (PCR) (Negative) Ur Strep pneumoniae Ag (Negative) Add-On Test Request Range/Units 05/17/22 05/17/22 05/17/22 05:15 05:15 05:15 WBC (4.4-10.8) 10^3/uL 9.76 RBC (3.93-5.22) 10^6/uL 3.73 L Hgb (11.2-15.7) g/dL 9.5 L Hct (36.0-46.0) % 33.2 L MCV (80-95) fL 89 MCH (27.0-33.0) pg 25.5 L MCHC (32.0-36.0) % 28.6 L RDW (11.7-14.6) % 17.2 H Plt Count (130-400) 10^3/uL 291 MPV (8.0-11.0) fL 10.0 Immature Gran % 1.2 Neutrophils % 79.5 Lymphocytes % 7.5 Monocytes % 10.3 Eosinophils % 1.2 Basophils % 0.3 Nucleated RBC % (0.0-0.3) % 0.2 Absolute Neutrophils (1.2-6.7) 10^3/uL 7.75 H Absolute Lymphocytes (1.2-3.4) 10^3/uL 0.73 L Absolute Monocytes (0.1-0.8) 10^3/uL 1.01 H Absolute Eosinophils (0.0-0.7) 10^3/uL 0.12 Absolute Basophils (0.0-0.2) 10^3/uL 0.03 RBC Morphology Polychromasia Hypochromasia Basophilic Stippling PT (9.3-11.0) sec INR (0.9-1.1) APTT (21.0-27.5) sec 46.0 H D-Dimer (<500) ng/mlFEU ABG Sample Site ABG pH (7.35-7.45) ABG pCO2 (35-45) mmHg ABG pO2 (80-105) mmHg ABG HCO3 (22-26) mmol/L ABG Total CO2 (23-27) mmol/L ABG O2 Saturation (95-98) % ABG Base Excess (-2-3) mmol/L VBG pH (7.31-7.41) VBG pCO2 (41-51) mmHg VBG pO2 mmHg VBG HCO3 (23-28) mmol/L VBG Total CO2 (24-29) mmol/L VBG O2 Saturation % VBG Base Excess (-2-3) mmol/L VBG Lactate (0.6-1.4) mmol/L Oxygen Liter Flow FiO2 % Sodium (136-145) mmol/L 141 Potassium (3.5-5.1) mmol/L 3.5 Chloride (98-107) mmol/L 98 Carbon Dioxide (21.0-32.0) mmol/L > 45.0 H Anion Gap (3-11) mmol/L -[id number] L BUN (7-18) mg/dL 21 H Creatinine (0.55-1.02) mg/dL 0.9 Est GFR (CKD-EPI 2020) (mL/min/1.73m2) 71.83 Glucose (74-106) mg/dL 118 H Hemoglobin A1c (<5.7) % Calcium (8.5-10.1) mg/dL 9.2 Phosphorus (2.6-4.7) mg/dL Magnesium (1.8-2.4) mg/dL Iron (50-170) ug/dL TIBC (250-450) ug/dL Ferritin (8-252) ng/mL Total Bilirubin (0.2-1.0) mg/dL 0.5 AST (15-37) U/L 24 ALT (14-59) U/L 56 Alkaline Phosphatase (46-116) U/L 46 Troponin I (<or=60) ng/L C-Reactive Protein (0.0-0.3) mg/dL NT-Pro-B Natriuret Pep (<300) pg/mL Total Protein (6.4-8.2) g/dL 6.2 L Albumin (3.4-5.0) g/dL 2.7 L Vitamin B12 (193-986) pg/mL Folate (8.6-20.0) ng/mL Procalcitonin ng/mL TSH (0.36-3.74) uIU/mL Urine Color (Yellow) Urine Clarity (Clear) Urine pH (5-8) Ur Specific [place] (1.005-1.025) Urine Protein (Negative) mg/dL Urine Ketones (Negative) mg/dL Urine Blood (Negative) Urine Nitrite (Negative) Urine Bilirubin (Negative) Urine Urobilinogen (Up TO 0.2) EU/dL Ur Leukocyte Esterase (Negative) Urine RBC (0-2) HPF Urine WBC (0-5) HPF Ur Epithelial Cells (Negative) HPF Urine Crystals (Negative) HPF Urine Bacteria (Negative) HPF Urine Casts (Negative) LPF Urine Mucus (Negative) Urine Other (Negative) Ur Culture Indicated? Urine Glucose (Negative) mg/dL Vancomycin Trough (10.0-20.0) ug/mL Urine Opiates Screen (Negative) Urine Methadone Screen (Negative) Ur Barbiturates Screen (Negative) Ur Tricyclics Screen (Negative) Ur Amphetamines Screen (Negative) U Benzodiazepines Scrn (Negative) Urine Cocaine Screen (Negative) Ur THC Screen (Negative) Ethyl Alcohol (<10) mg/dL COVID-19 Source SARS-CoV-2 (PCR) (Negative) Influenza Type A (PCR) (Negative) Influenza Type B (PCR) (Negative) Urine Legionella Ag (Negative) RSV (PCR) (Negative) Ur Strep pneumoniae Ag (Negative) Add-On Test Request Range/Units 05/17/22 05/17/22 05/17/22 05:15 05:15 05:50 WBC (4.4-10.8) 10^3/uL RBC (3.93-5.22) 10^6/uL Hgb (11.2-15.7) g/dL Hct (36.0-46.0) % MCV (80-95) fL MCH (27.0-33.0) pg MCHC (32.0-36.0) % RDW (11.7-14.6) % Plt Count (130-400) 10^3/uL MPV (8.0-11.0) fL Immature Gran % Neutrophils % Lymphocytes % Monocytes % Eosinophils % Basophils % Nucleated RBC % (0.0-0.3) % Absolute Neutrophils (1.2-6.7) 10^3/uL Absolute Lymphocytes (1.2-3.4) 10^3/uL Absolute Monocytes (0.1-0.8) 10^3/uL Absolute Eosinophils (0.0-0.7) 10^3/uL Absolute Basophils (0.0-0.2) 10^3/uL RBC Morphology Polychromasia Hypochromasia Basophilic Stippling PT (9.3-11.0) sec INR (0.9-1.1) APTT (21.0-27.5) sec D-Dimer (<500) ng/mlFEU ABG Sample Site ABG pH (7.35-7.45) ABG pCO2 (35-45) mmHg ABG pO2 (80-105) mmHg ABG HCO3 (22-26) mmol/L ABG Total CO2 (23-27) mmol/L ABG O2 Saturation (95-98) % ABG Base Excess (-2-3) mmol/L VBG pH (7.31-7.41) VBG pCO2 (41-51) mmHg VBG pO2 mmHg VBG HCO3 (23-28) mmol/L VBG Total CO2 (24-29) mmol/L VBG O2 Saturation % VBG Base Excess (-2-3) mmol/L VBG Lactate (0.6-1.4) mmol/L Oxygen Liter Flow FiO2 % Sodium (136-145) mmol/L Potassium (3.5-5.1) mmol/L Chloride (98-107) mmol/L Carbon Dioxide (21.0-32.0) mmol/L Anion Gap (3-11) mmol/L BUN (7-18) mg/dL Creatinine (0.55-1.02) mg/dL Est GFR (CKD-EPI 2020) (mL/min/1.73m2) Glucose (74-106) mg/dL Hemoglobin A1c (<5.7) % Calcium (8.5-10.1) mg/dL Phosphorus (2.6-4.7) mg/dL Magnesium (1.8-2.4) mg/dL Iron (50-170) ug/dL TIBC (250-450) ug/dL Ferritin (8-252) ng/mL Total Bilirubin (0.2-1.0) mg/dL AST (15-37) U/L ALT (14-59) U/L Alkaline Phosphatase (46-116) U/L Troponin I (<or=60) ng/L C-Reactive Protein (0.0-0.3) mg/dL NT-Pro-B Natriuret Pep (<300) pg/mL Total Protein (6.4-8.2) g/dL Albumin (3.4-5.0) g/dL Vitamin B12 (193-986) pg/mL 348 Folate (8.6-20.0) ng/mL > 20.0 H Procalcitonin ng/mL < 0.1 TSH (0.36-3.74) uIU/mL Urine Color (Yellow) Urine Clarity (Clear) Urine pH (5-8) Ur Specific [place] (1.005-1.025) Urine Protein (Negative) mg/dL Urine Ketones (Negative) mg/dL Urine Blood (Negative) Urine Nitrite (Negative) Urine Bilirubin (Negative) Urine Urobilinogen (Up TO 0.2) EU/dL Ur Leukocyte Esterase (Negative) Urine RBC (0-2) HPF Urine WBC (0-5) HPF Ur Epithelial Cells (Negative) HPF Urine Crystals (Negative) HPF Urine Bacteria (Negative) HPF Urine Casts (Negative) LPF Urine Mucus (Negative) Urine Other (Negative) Ur Culture Indicated? Urine Glucose (Negative) mg/dL Vancomycin Trough (10.0-20.0) ug/mL Urine Opiates Screen (Negative) Urine Methadone Screen (Negative) Ur Barbiturates Screen (Negative) Ur Tricyclics Screen (Negative) Ur Amphetamines Screen (Negative) U Benzodiazepines Scrn (Negative) Urine Cocaine Screen (Negative) Ur THC Screen (Negative) Ethyl Alcohol (<10) mg/dL COVID-19 Source SARS-CoV-2 (PCR) (Negative) Influenza Type A (PCR) (Negative) Influenza Type B (PCR) (Negative) Urine Legionella Ag (Negative) RSV (PCR) (Negative) Ur Strep pneumoniae Ag (Negative) Add-On Test Request DONE Range/Units 05/17/22 05/18/22 05/18/22 12:40 05:55 05:55 WBC (4.4-10.8) 10^3/uL 9.41 RBC (3.93-5.22) 10^6/uL 3.89 L Hgb (11.2-15.7) g/dL 9.8 L Hct (36.0-46.0) % 33.4 L MCV (80-95) fL 86 MCH (27.0-33.0) pg 25.2 L MCHC (32.0-36.0) % 29.3 L RDW (11.7-14.6) % 17.0 H Plt Count (130-400) 10^3/uL 301 MPV (8.0-11.0) fL 9.6 Immature Gran % 1.4 Neutrophils % 79.2 Lymphocytes % 7.4 Monocytes % 10.5 Eosinophils % 1.2 Basophils % 0.3 Nucleated RBC % (0.0-0.3) % 0.0 Absolute Neutrophils (1.2-6.7) 10^3/uL 7.45 H Absolute Lymphocytes (1.2-3.4) 10^3/uL 0.70 L Absolute Monocytes (0.1-0.8) 10^3/uL 0.99 H Absolute Eosinophils (0.0-0.7) 10^3/uL 0.11 Absolute Basophils (0.0-0.2) 10^3/uL 0.03 RBC Morphology Polychromasia Hypochromasia Basophilic Stippling PT (9.3-11.0) sec INR (0.9-1.1) APTT (21.0-27.5) sec D-Dimer (<500) ng/mlFEU ABG Sample Site Right Radial ABG pH (7.35-7.45) 7.48 H ABG pCO2 (35-45) mmHg 59 H ABG pO2 (80-105) mmHg 68 L ABG HCO3 (22-26) mmol/L 44 H ABG Total CO2 (23-27) mmol/L 41 H ABG O2 Saturation (95-98) % 94 L ABG Base Excess (-2-3) mmol/L > 15 H VBG pH (7.31-7.41) VBG pCO2 (41-51) mmHg VBG pO2 mmHg VBG HCO3 (23-28) mmol/L VBG Total CO2 (24-29) mmol/L VBG O2 Saturation % VBG Base Excess (-2-3) mmol/L VBG Lactate (0.6-1.4) mmol/L Oxygen Liter Flow 50 FiO2 % 35 Sodium (136-145) mmol/L 141 Potassium (3.5-5.1) mmol/L 3.4 L Chloride (98-107) mmol/L 98 Carbon Dioxide (21.0-32.0) mmol/L 38.8 H Anion Gap (3-11) mmol/L 4.2 BUN (7-18) mg/dL 23 H Creatinine (0.55-1.02) mg/dL 0.8 Est GFR (CKD-EPI 2020) (mL/min/1.73m2) 82.74 Glucose (74-106) mg/dL 91 Hemoglobin A1c (<5.7) % Calcium (8.5-10.1) mg/dL 9.2 Phosphorus (2.6-4.7) mg/dL Magnesium (1.8-2.4) mg/dL Iron (50-170) ug/dL TIBC (250-450) ug/dL Ferritin (8-252) ng/mL Total Bilirubin (0.2-1.0) mg/dL 0.6 AST (15-37) U/L 19 ALT (14-59) U/L 41 Alkaline Phosphatase (46-116) U/L 43 L Troponin I (<or=60) ng/L C-Reactive Protein (0.0-0.3) mg/dL 1.18 H NT-Pro-B Natriuret Pep (<300) pg/mL Total Protein (6.4-8.2) g/dL 6.0 L Albumin (3.4-5.0) g/dL 2.6 L Vitamin B12 (193-986) pg/mL Folate (8.6-20.0) ng/mL Procalcitonin ng/mL TSH (0.36-3.74) uIU/mL Urine Color (Yellow) Urine Clarity (Clear) Urine pH (5-8) Ur Specific [place] (1.005-1.025) Urine Protein (Negative) mg/dL Urine Ketones (Negative) mg/dL Urine Blood (Negative) Urine Nitrite (Negative) Urine Bilirubin (Negative) Urine Urobilinogen (Up TO 0.2) EU/dL Ur Leukocyte Esterase (Negative) Urine RBC (0-2) HPF Urine WBC (0-5) HPF Ur Epithelial Cells (Negative) HPF Urine Crystals (Negative) HPF Urine Bacteria (Negative) HPF Urine Casts (Negative) LPF Urine Mucus (Negative) Urine Other (Negative) Ur Culture Indicated? Urine Glucose (Negative) mg/dL Vancomycin Trough (10.0-20.0) ug/mL Urine Opiates Screen (Negative) Urine Methadone Screen (Negative) Ur Barbiturates Screen (Negative) Ur Tricyclics Screen (Negative) Ur Amphetamines Screen (Negative) U Benzodiazepines Scrn (Negative) Urine Cocaine Screen (Negative) Ur THC Screen (Negative) Ethyl Alcohol (<10) mg/dL COVID-19 Source SARS-CoV-2 (PCR) (Negative) Influenza Type A (PCR) (Negative) Influenza Type B (PCR) (Negative) Urine Legionella Ag (Negative) RSV (PCR) (Negative) Ur Strep pneumoniae Ag (Negative) Add-On Test Request Range/Units 05/18/22 05/18/22 05/18/22 05:55 05:55 11:00 WBC (4.4-10.8) 10^3/uL RBC (3.93-5.22) 10^6/uL Hgb (11.2-15.7) g/dL Hct (36.0-46.0) % MCV (80-95) fL MCH (27.0-33.0) pg MCHC (32.0-36.0) % RDW (11.7-14.6) % Plt Count (130-400) 10^3/uL MPV (8.0-11.0) fL Immature Gran % Neutrophils % Lymphocytes % Monocytes % Eosinophils % Basophils % Nucleated RBC % (0.0-0.3) % Absolute Neutrophils (1.2-6.7) 10^3/uL Absolute Lymphocytes (1.2-3.4) 10^3/uL Absolute Monocytes (0.1-0.8) 10^3/uL Absolute Eosinophils (0.0-0.7) 10^3/uL Absolute Basophils (0.0-0.2) 10^3/uL RBC Morphology Polychromasia Hypochromasia Basophilic Stippling PT (9.3-11.0) sec INR (0.9-1.1) APTT (21.0-27.5) sec D-Dimer (<500) ng/mlFEU ABG Sample Site ABG pH (7.35-7.45) ABG pCO2 (35-45) mmHg ABG pO2 (80-105) mmHg ABG HCO3 (22-26) mmol/L ABG Total CO2 (23-27) mmol/L ABG O2 Saturation (95-98) % ABG Base Excess (-2-3) mmol/L VBG pH (7.31-7.41) VBG pCO2 (41-51) mmHg VBG pO2 mmHg VBG HCO3 (23-28) mmol/L VBG Total CO2 (24-29) mmol/L VBG O2 Saturation % VBG Base Excess (-2-3) mmol/L VBG Lactate (0.6-1.4) mmol/L Oxygen Liter Flow FiO2 % Sodium (136-145) mmol/L Potassium (3.5-5.1) mmol/L Chloride (98-107) mmol/L Carbon Dioxide (21.0-32.0) mmol/L Anion Gap (3-11) mmol/L BUN (7-18) mg/dL Creatinine (0.55-1.02) mg/dL Est GFR (CKD-EPI 2020) (mL/min/1.73m2) Glucose (74-106) mg/dL Hemoglobin A1c (<5.7) % Calcium (8.5-10.1) mg/dL Phosphorus (2.6-4.7) mg/dL Magnesium (1.8-2.4) mg/dL 1.6 L Iron (50-170) ug/dL TIBC (250-450) ug/dL Ferritin (8-252) ng/mL Total Bilirubin (0.2-1.0) mg/dL AST (15-37) U/L ALT (14-59) U/L Alkaline Phosphatase (46-116) U/L Troponin I (<or=60) ng/L C-Reactive Protein (0.0-0.3) mg/dL NT-Pro-B Natriuret Pep (<300) pg/mL Total Protein (6.4-8.2) g/dL Albumin (3.4-5.0) g/dL Vitamin B12 (193-986) pg/mL Folate (8.6-20.0) ng/mL Procalcitonin ng/mL TSH (0.36-3.74) uIU/mL Urine Color (Yellow) Urine Clarity (Clear) Urine pH (5-8) Ur Specific [place] (1.005-1.025) Urine Protein (Negative) mg/dL Urine Ketones (Negative) mg/dL Urine Blood (Negative) Urine Nitrite (Negative) Urine Bilirubin (Negative) Urine Urobilinogen (Up TO 0.2) EU/dL Ur Leukocyte Esterase (Negative) Urine RBC (0-2) HPF Urine WBC (0-5) HPF Ur Epithelial Cells (Negative) HPF Urine Crystals (Negative) HPF Urine Bacteria (Negative) HPF Urine Casts (Negative) LPF Urine Mucus (Negative) Urine Other (Negative) Ur Culture Indicated? Urine Glucose (Negative) mg/dL Vancomycin Trough (10.0-20.0) ug/mL 14.5 Urine Opiates Screen (Negative) Urine Methadone Screen (Negative) Ur Barbiturates Screen (Negative) Ur Tricyclics Screen (Negative) Ur Amphetamines Screen (Negative) U Benzodiazepines Scrn (Negative) Urine Cocaine Screen (Negative) Ur THC Screen (Negative) Ethyl Alcohol (<10) mg/dL COVID-19 Source SARS-CoV-2 (PCR) (Negative) Influenza Type A (PCR) (Negative) Influenza Type B (PCR) (Negative) Urine Legionella Ag (Negative) RSV (PCR) (Negative) Ur Strep pneumoniae Ag (Negative) Add-On Test Request DONE Range/Units 05/19/22 05/19/22 05/19/22 05:20 05:20 05:20 WBC (4.4-10.8) 10^3/uL 9.12 RBC (3.93-5.22) 10^6/uL 3.96 Hgb (11.2-15.7) g/dL 9.8 L Hct (36.0-46.0) % 34.7 L MCV (80-95) fL 88 MCH (27.0-33.0) pg 24.7 L MCHC (32.0-36.0) % 28.2 L RDW (11.7-14.6) % 17.0 H Plt Count (130-400) 10^3/uL 280 MPV (8.0-11.0) fL 9.7 Immature Gran % 1.9 Neutrophils % 77.3 Lymphocytes % 7.2 Monocytes % 9.6 Eosinophils % 3.6 Basophils % 0.4 Nucleated RBC % (0.0-0.3) % 0.0 Absolute Neutrophils (1.2-6.7) 10^3/uL 7.04 H Absolute Lymphocytes (1.2-3.4) 10^3/uL 0.66 L Absolute Monocytes (0.1-0.8) 10^3/uL 0.88 H Absolute Eosinophils (0.0-0.7) 10^3/uL 0.33 Absolute Basophils (0.0-0.2) 10^3/uL 0.04 RBC Morphology Polychromasia Hypochromasia Basophilic Stippling PT (9.3-11.0) sec INR (0.9-1.1) APTT (21.0-27.5) sec D-Dimer (<500) ng/mlFEU ABG Sample Site ABG pH (7.35-7.45) ABG pCO2 (35-45) mmHg ABG pO2 (80-105) mmHg ABG HCO3 (22-26) mmol/L ABG Total CO2 (23-27) mmol/L ABG O2 Saturation (95-98) % ABG Base Excess (-2-3) mmol/L VBG pH (7.31-7.41) VBG pCO2 (41-51) mmHg VBG pO2 mmHg VBG HCO3 (23-28) mmol/L VBG Total CO2 (24-29) mmol/L VBG O2 Saturation % VBG Base Excess (-2-3) mmol/L VBG Lactate (0.6-1.4) mmol/L Oxygen Liter Flow FiO2 % Sodium (136-145) mmol/L 141 Potassium (3.5-5.1) mmol/L 3.8 Chloride (98-107) mmol/L 100 Carbon Dioxide (21.0-32.0) mmol/L 39.0 H Anion Gap (3-11) mmol/L 2.0 L BUN (7-18) mg/dL 21 H Creatinine (0.55-1.02) mg/dL 0.9 Est GFR (CKD-EPI 2020) (mL/min/1.73m2) 71.83 Glucose (74-106) mg/dL 100 Hemoglobin A1c (<5.7) % Calcium (8.5-10.1) mg/dL 9.0 Phosphorus (2.6-4.7) mg/dL Magnesium (1.8-2.4) mg/dL Iron (50-170) ug/dL TIBC (250-450) ug/dL Ferritin (8-252) ng/mL Total Bilirubin (0.2-1.0) mg/dL 0.5 AST (15-37) U/L 22 ALT (14-59) U/L 39 Alkaline Phosphatase (46-116) U/L 42 L Troponin I (<or=60) ng/L C-Reactive Protein (0.0-0.3) mg/dL NT-Pro-B Natriuret Pep (<300) pg/mL Total Protein (6.4-8.2) g/dL 5.9 L Albumin (3.4-5.0) g/dL 2.7 L Vitamin B12 (193-986) pg/mL Folate (8.6-20.0) ng/mL Procalcitonin ng/mL TSH (0.36-3.74) uIU/mL Urine Color (Yellow) Urine Clarity (Clear) Urine pH (5-8) Ur Specific [place] (1.005-1.025) Urine Protein (Negative) mg/dL Urine Ketones (Negative) mg/dL Urine Blood (Negative) Urine Nitrite (Negative) Urine Bilirubin (Negative) Urine Urobilinogen (Up TO 0.2) EU/dL Ur Leukocyte Esterase (Negative) Urine RBC (0-2) HPF Urine WBC (0-5) HPF Ur Epithelial Cells (Negative) HPF Urine Crystals (Negative) HPF Urine Bacteria (Negative) HPF Urine Casts (Negative) LPF Urine Mucus (Negative) Urine Other (Negative) Ur Culture Indicated? Urine Glucose (Negative) mg/dL Vancomycin Trough (10.0-20.0) ug/mL Urine Opiates Screen (Negative) Urine Methadone Screen (Negative) Ur Barbiturates Screen (Negative) Ur Tricyclics Screen (Negative) Ur Amphetamines Screen (Negative) U Benzodiazepines Scrn (Negative) Urine Cocaine Screen (Negative) Ur THC Screen (Negative) Ethyl Alcohol (<10) mg/dL COVID-19 Source SARS-CoV-2 (PCR) (Negative) Influenza Type A (PCR) (Negative) Influenza Type B (PCR) (Negative) Urine Legionella Ag (Negative) RSV (PCR) (Negative) Ur Strep pneumoniae Ag (Negative) Add-On Test Request TNP Range/Units 05/19/22 05/19/22 05/19/22 05:20 05:20 12:40 WBC (4.4-10.8) 10^3/uL RBC (3.93-5.22) 10^6/uL Hgb (11.2-15.7) g/dL Hct (36.0-46.0) % MCV (80-95) fL MCH (27.0-33.0) pg MCHC (32.0-36.0) % RDW (11.7-14.6) % Plt Count (130-400) 10^3/uL MPV (8.0-11.0) fL Immature Gran % Neutrophils % Lymphocytes % Monocytes % Eosinophils % Basophils % Nucleated RBC % (0.0-0.3) % Absolute Neutrophils (1.2-6.7) 10^3/uL Absolute Lymphocytes (1.2-3.4) 10^3/uL Absolute Monocytes (0.1-0.8) 10^3/uL Absolute Eosinophils (0.0-0.7) 10^3/uL Absolute Basophils (0.0-0.2) 10^3/uL RBC Morphology Polychromasia Hypochromasia Basophilic Stippling PT (9.3-11.0) sec INR (0.9-1.1) APTT (21.0-27.5) sec D-Dimer (<500) ng/mlFEU ABG Sample Site ABG pH (7.35-7.45) ABG pCO2 (35-45) mmHg ABG pO2 (80-105) mmHg ABG HCO3 (22-26) mmol/L ABG Total CO2 (23-27) mmol/L ABG O2 Saturation (95-98) % ABG Base Excess (-2-3) mmol/L VBG pH (7.31-7.41) VBG pCO2 (41-51) mmHg VBG pO2 mmHg VBG HCO3 (23-28) mmol/L VBG Total CO2 (24-29) mmol/L VBG O2 Saturation % VBG Base Excess (-2-3) mmol/L VBG Lactate (0.6-1.4) mmol/L Oxygen Liter Flow FiO2 % Sodium (136-145) mmol/L Potassium (3.5-5.1) mmol/L Chloride (98-107) mmol/L Carbon Dioxide (21.0-32.0) mmol/L Anion Gap (3-11) mmol/L BUN (7-18) mg/dL Creatinine (0.55-1.02) mg/dL Est GFR (CKD-EPI 2020) (mL/min/1.73m2) Glucose (74-106) mg/dL Hemoglobin A1c (<5.7) % Calcium (8.5-10.1) mg/dL Phosphorus (2.6-4.7) mg/dL Magnesium (1.8-2.4) mg/dL Iron (50-170) ug/dL 35 L TIBC (250-450) ug/dL 580 H Ferritin (8-252) ng/mL 31 Total Bilirubin (0.2-1.0) mg/dL AST (15-37) U/L ALT (14-59) U/L Alkaline Phosphatase (46-116) U/L Troponin I (<or=60) ng/L C-Reactive Protein (0.0-0.3) mg/dL NT-Pro-B Natriuret Pep (<300) pg/mL Total Protein (6.4-8.2) g/dL Albumin (3.4-5.0) g/dL Vitamin B12 (193-986) pg/mL Folate (8.6-20.0) ng/mL Procalcitonin ng/mL TSH (0.36-3.74) uIU/mL Urine Color (Yellow) Urine Clarity (Clear) Urine pH (5-8) Ur Specific [place] (1.005-1.025) Urine Protein (Negative) mg/dL Urine Ketones (Negative) mg/dL Urine Blood (Negative) Urine Nitrite (Negative) Urine Bilirubin (Negative) Urine Urobilinogen (Up TO 0.2) EU/dL Ur Leukocyte Esterase (Negative) Urine RBC (0-2) HPF Urine WBC (0-5) HPF Ur Epithelial Cells (Negative) HPF Urine Crystals (Negative) HPF Urine Bacteria (Negative) HPF Urine Casts (Negative) LPF Urine Mucus (Negative) Urine Other (Negative) Ur Culture Indicated? Urine Glucose (Negative) mg/dL Vancomycin Trough (10.0-20.0) ug/mL Urine Opiates Screen (Negative) Urine Methadone Screen (Negative) Ur Barbiturates Screen (Negative) Ur Tricyclics Screen (Negative) Ur Amphetamines Screen (Negative) U Benzodiazepines Scrn (Negative) Urine Cocaine Screen (Negative) Ur THC Screen (Negative) Ethyl Alcohol (<10) mg/dL COVID-19 Source SARS-CoV-2 (PCR) (Negative) Influenza Type A (PCR) (Negative) Influenza Type B (PCR) (Negative) Urine Legionella Ag (Negative) RSV (PCR) (Negative) Ur Strep pneumoniae Ag (Negative) Add-On Test Request Range/Units 05/20/22 05/21/22 05/21/22 06:15 06:25 06:25 WBC (4.4-10.8) 10^3/uL RBC (3.93-5.22) 10^6/uL Hgb (11.2-15.7) g/dL Hct (36.0-46.0) % MCV (80-95) fL MCH (27.0-33.0) pg MCHC (32.0-36.0) % RDW (11.7-14.6) % Plt Count (130-400) 10^3/uL MPV (8.0-11.0) fL Immature Gran % Neutrophils % Lymphocytes % Monocytes % Eosinophils % Basophils % Nucleated RBC % (0.0-0.3) % Absolute Neutrophils (1.2-6.7) 10^3/uL Absolute Lymphocytes (1.2-3.4) 10^3/uL Absolute Monocytes (0.1-0.8) 10^3/uL Absolute Eosinophils (0.0-0.7) 10^3/uL Absolute Basophils (0.0-0.2) 10^3/uL RBC Morphology Polychromasia Hypochromasia Basophilic Stippling PT (9.3-11.0) sec INR (0.9-1.1) APTT (21.0-27.5) sec D-Dimer (<500) ng/mlFEU ABG Sample Site ABG pH (7.35-7.45) ABG pCO2 (35-45) mmHg ABG pO2 (80-105) mmHg ABG HCO3 (22-26) mmol/L ABG Total CO2 (23-27) mmol/L ABG O2 Saturation (95-98) % ABG Base Excess (-2-3) mmol/L VBG pH (7.31-7.41) VBG pCO2 (41-51) mmHg VBG pO2 mmHg VBG HCO3 (23-28) mmol/L VBG Total CO2 (24-29) mmol/L VBG O2 Saturation % VBG Base Excess (-2-3) mmol/L VBG Lactate (0.6-1.4) mmol/L Oxygen Liter Flow FiO2 % Sodium (136-145) mmol/L 142 141 Potassium (3.5-5.1) mmol/L 4.0 4.4 Chloride (98-107) mmol/L 99 99 Carbon Dioxide (21.0-32.0) mmol/L 41.5 H 41.5 H Anion Gap (3-11) mmol/L 1.5 L 0.5 L BUN (7-18) mg/dL 19 H 18 Creatinine (0.55-1.02) mg/dL 0.9 0.7 Est GFR (CKD-EPI 2020) (mL/min/1.73m2) 71.83 97.12 Glucose (74-106) mg/dL 102 100 Hemoglobin A1c (<5.7) % Calcium (8.5-10.1) mg/dL 9.1 9.0 Phosphorus (2.6-4.7) mg/dL Magnesium (1.8-2.4) mg/dL Iron (50-170) ug/dL TIBC (250-450) ug/dL Ferritin (8-252) ng/mL Total Bilirubin (0.2-1.0) mg/dL AST (15-37) U/L ALT (14-59) U/L Alkaline Phosphatase (46-116) U/L Troponin I (<or=60) ng/L C-Reactive Protein (0.0-0.3) mg/dL NT-Pro-B Natriuret Pep (<300) pg/mL Total Protein (6.4-8.2) g/dL Albumin (3.4-5.0) g/dL Vitamin B12 (193-986) pg/mL Folate (8.6-20.0) ng/mL Procalcitonin ng/mL TSH (0.36-3.74) uIU/mL Urine Color (Yellow) Urine Clarity (Clear) Urine pH (5-8) Ur Specific [place] (1.005-1.025) Urine Protein (Negative) mg/dL Urine Ketones (Negative) mg/dL Urine Blood (Negative) Urine Nitrite (Negative) Urine Bilirubin (Negative) Urine Urobilinogen (Up TO 0.2) EU/dL Ur Leukocyte Esterase (Negative) Urine RBC (0-2) HPF Urine WBC (0-5) HPF Ur Epithelial Cells (Negative) HPF Urine Crystals (Negative) HPF Urine Bacteria (Negative) HPF Urine Casts (Negative) LPF Urine Mucus (Negative) Urine Other (Negative) Ur Culture Indicated? Urine Glucose (Negative) mg/dL Vancomycin Trough (10.0-20.0) ug/mL Urine Opiates Screen (Negative) Urine Methadone Screen (Negative) Ur Barbiturates Screen (Negative) Ur Tricyclics Screen (Negative) Ur Amphetamines Screen (Negative) U Benzodiazepines Scrn (Negative) Urine Cocaine Screen (Negative) Ur THC Screen (Negative) Ethyl Alcohol (<10) mg/dL COVID-19 Source SARS-CoV-2 (PCR) (Negative) Influenza Type A (PCR) (Negative) Influenza Type B (PCR) (Negative) Urine Legionella Ag (Negative) RSV (PCR) (Negative) Ur Strep pneumoniae Ag (Negative) Add-On Test Request DONE Range/Units 05/21/22 05/22/22 05/22/22 06:25 06:00 06:00 WBC (4.4-10.8) 10^3/uL 9.33 RBC (3.93-5.22) 10^6/uL 4.00 Hgb (11.2-15.7) g/dL 10.2 L Hct (36.0-46.0) % 34.5 L MCV (80-95) fL 86 MCH (27.0-33.0) pg 25.5 L MCHC (32.0-36.0) % 29.6 L RDW (11.7-14.6) % 17.2 H Plt Count (130-400) 10^3/uL 248 MPV (8.0-11.0) fL 9.8 Immature Gran % 1.1 Neutrophils % 84.5 Lymphocytes % 5.9 Monocytes % 7.3 Eosinophils % 0.8 Basophils % 0.4 Nucleated RBC % (0.0-0.3) % 0.0 Absolute Neutrophils (1.2-6.7) 10^3/uL 7.89 H Absolute Lymphocytes (1.2-3.4) 10^3/uL 0.55 L Absolute Monocytes (0.1-0.8) 10^3/uL 0.68 Absolute Eosinophils (0.0-0.7) 10^3/uL 0.07 Absolute Basophils (0.0-0.2) 10^3/uL 0.04 RBC Morphology Polychromasia Hypochromasia Basophilic Stippling PT (9.3-11.0) sec INR (0.9-1.1) APTT (21.0-27.5) sec D-Dimer (<500) ng/mlFEU ABG Sample Site ABG pH (7.35-7.45) ABG pCO2 (35-45) mmHg ABG pO2 (80-105) mmHg ABG HCO3 (22-26) mmol/L ABG Total CO2 (23-27) mmol/L ABG O2 Saturation (95-98) % ABG Base Excess (-2-3) mmol/L VBG pH (7.31-7.41) VBG pCO2 (41-51) mmHg VBG pO2 mmHg VBG HCO3 (23-28) mmol/L VBG Total CO2 (24-29) mmol/L VBG O2 Saturation % VBG Base Excess (-2-3) mmol/L VBG Lactate (0.6-1.4) mmol/L Oxygen Liter Flow FiO2 % Sodium (136-145) mmol/L 140 Potassium (3.5-5.1) mmol/L 4.0 Chloride (98-107) mmol/L 96 L Carbon Dioxide (21.0-32.0) mmol/L 42.6 H Anion Gap (3-11) mmol/L 1.4 L BUN (7-18) mg/dL 19 H Creatinine (0.55-1.02) mg/dL 1.0 Est GFR (CKD-EPI 2020) (mL/min/1.73m2) 63.30 Glucose (74-106) mg/dL 96 Hemoglobin A1c (<5.7) % 5.7 Calcium (8.5-10.1) mg/dL 8.9 Phosphorus (2.6-4.7) mg/dL Magnesium (1.8-2.4) mg/dL 1.8 Iron (50-170) ug/dL TIBC (250-450) ug/dL Ferritin (8-252) ng/mL Total Bilirubin (0.2-1.0) mg/dL 0.6 AST (15-37) U/L 40 H ALT (14-59) U/L 76 H Alkaline Phosphatase (46-116) U/L 50 Troponin I (<or=60) ng/L C-Reactive Protein (0.0-0.3) mg/dL NT-Pro-B Natriuret Pep (<300) pg/mL Total Protein (6.4-8.2) g/dL 6.4 Albumin (3.4-5.0) g/dL 3.1 L Vitamin B12 (193-986) pg/mL Folate (8.6-20.0) ng/mL Procalcitonin ng/mL TSH (0.36-3.74) uIU/mL Urine Color (Yellow) Urine Clarity (Clear) Urine pH (5-8) Ur Specific [place] (1.005-1.025) Urine Protein (Negative) mg/dL Urine Ketones (Negative) mg/dL Urine Blood (Negative) Urine Nitrite (Negative) Urine Bilirubin (Negative) Urine Urobilinogen (Up TO 0.2) EU/dL Ur Leukocyte Esterase (Negative) Urine RBC (0-2) HPF Urine WBC (0-5) HPF Ur Epithelial Cells (Negative) HPF Urine Crystals (Negative) HPF Urine Bacteria (Negative) HPF Urine Casts (Negative) LPF Urine Mucus (Negative) Urine Other (Negative) Ur Culture Indicated? Urine Glucose (Negative) mg/dL Vancomycin Trough (10.0-20.0) ug/mL Urine Opiates Screen (Negative) Urine Methadone Screen (Negative) Ur Barbiturates Screen (Negative) Ur Tricyclics Screen (Negative) Ur Amphetamines Screen (Negative) U Benzodiazepines Scrn (Negative) Urine Cocaine Screen (Negative) Ur THC Screen (Negative) Ethyl Alcohol (<10) mg/dL COVID-19 Source SARS-CoV-2 (PCR) (Negative) Influenza Type A (PCR) (Negative) Influenza Type B (PCR) (Negative) Urine Legionella Ag (Negative) RSV (PCR) (Negative) Ur Strep pneumoniae Ag (Negative) Add-On Test Request Range/Units 05/24/22 06:00 WBC (4.4-10.8) 10^3/uL RBC (3.93-5.22) 10^6/uL Hgb (11.2-15.7) g/dL Hct (36.0-46.0) % MCV (80-95) fL MCH (27.0-33.0) pg MCHC (32.0-36.0) % RDW (11.7-14.6) % Plt Count (130-400) 10^3/uL MPV (8.0-11.0) fL Immature Gran % Neutrophils % Lymphocytes % Monocytes % Eosinophils % Basophils % Nucleated RBC % (0.0-0.3) % Absolute Neutrophils (1.2-6.7) 10^3/uL Absolute Lymphocytes (1.2-3.4) 10^3/uL Absolute Monocytes (0.1-0.8) 10^3/uL Absolute Eosinophils (0.0-0.7) 10^3/uL Absolute Basophils (0.0-0.2) 10^3/uL RBC Morphology Polychromasia Hypochromasia Basophilic Stippling PT (9.3-11.0) sec INR (0.9-1.1) APTT (21.0-27.5) sec D-Dimer (<500) ng/mlFEU ABG Sample Site ABG pH (7.35-7.45) ABG pCO2 (35-45) mmHg ABG pO2 (80-105) mmHg ABG HCO3 (22-26) mmol/L ABG Total CO2 (23-27) mmol/L ABG O2 Saturation (95-98) % ABG Base Excess (-2-3) mmol/L VBG pH (7.31-7.41) VBG pCO2 (41-51) mmHg VBG pO2 mmHg VBG HCO3 (23-28) mmol/L VBG Total CO2 (24-29) mmol/L VBG O2 Saturation % VBG Base Excess (-2-3) mmol/L VBG Lactate (0.6-1.4) mmol/L Oxygen Liter Flow FiO2 % Sodium (136-145) mmol/L 139 Potassium (3.5-5.1) mmol/L 4.0 Chloride (98-107) mmol/L 97 L Carbon Dioxide (21.0-32.0) mmol/L 40.7 H Anion Gap (3-11) mmol/L 1.3 L BUN (7-18) mg/dL 16 Creatinine (0.55-1.02) mg/dL 0.9 Est GFR (CKD-EPI 2020) (mL/min/1.73m2) 71.83 Glucose (74-106) mg/dL 103 Hemoglobin A1c (<5.7) % Calcium (8.5-10.1) mg/dL 9.1 Phosphorus (2.6-4.7) mg/dL Magnesium (1.8-2.4) mg/dL Iron (50-170) ug/dL TIBC (250-450) ug/dL Ferritin (8-252) ng/mL Total Bilirubin (0.2-1.0) mg/dL AST (15-37) U/L ALT (14-59) U/L Alkaline Phosphatase (46-116) U/L Troponin I (<or=60) ng/L C-Reactive Protein (0.0-0.3) mg/dL NT-Pro-B Natriuret Pep (<300) pg/mL Total Protein (6.4-8.2) g/dL Albumin (3.4-5.0) g/dL Vitamin B12 (193-986) pg/mL Folate (8.6-20.0) ng/mL Procalcitonin ng/mL TSH (0.36-3.74) uIU/mL Urine Color (Yellow) Urine Clarity (Clear) Urine pH (5-8) Ur Specific [place] (1.005-1.025) Urine Protein (Negative) mg/dL Urine Ketones (Negative) mg/dL Urine Blood (Negative) Urine Nitrite (Negative) Urine Bilirubin (Negative) Urine Urobilinogen (Up TO 0.2) EU/dL Ur Leukocyte Esterase (Negative) Urine RBC (0-2) HPF Urine WBC (0-5) HPF Ur Epithelial Cells (Negative) HPF Urine Crystals (Negative) HPF Urine Bacteria (Negative) HPF Urine Casts (Negative) LPF Urine Mucus (Negative) Urine Other (Negative) Ur Culture Indicated? Urine Glucose (Negative) mg/dL Vancomycin Trough (10.0-20.0) ug/mL Urine Opiates Screen (Negative) Urine Methadone Screen (Negative) Ur Barbiturates Screen (Negative) Ur Tricyclics Screen (Negative) Ur Amphetamines Screen (Negative) U Benzodiazepines Scrn (Negative) Urine Cocaine Screen (Negative) Ur THC Screen (Negative) Ethyl Alcohol (<10) mg/dL COVID-19 Source SARS-CoV-2 (PCR) (Negative) Influenza Type A (PCR) (Negative) Influenza Type B (PCR) (Negative) Urine Legionella Ag (Negative) RSV (PCR) (Negative) Ur Strep pneumoniae Ag (Negative) Add-On Test Request
[2022-05-24] MEDS: Apixaban 5 MG TAB PO ×2 (07:37→19:52)
[2022-05-24] MEDS: Torsemide 20 MG TAB 10 MG PO (07:37)
[2022-05-24] MEDS: Ascorbic Acid 500 MG TAB PO ×2 (07:37→19:53)
[2022-05-24] MEDS: Ferrous Sulfate 325 MG TAB PO ×2 (07:38→19:53)
[2022-05-24] MEDS: Spironolactone 25 MG TAB PO (07:38)
[2022-05-24] MEDS: FLUoxetine 10 MG TAB PO (07:38)
[2022-05-24] MEDS: Multivitamin w/Minerals TAB 1 TAB PO (07:38)
[2022-05-24] MEDS: levETIRAcetam 500 MG TAB 1000 MG PO (07:38)
[2022-05-24] MEDS: Pantoprazole 40 MG TABCR PO (07:38)
[2022-05-24] MEDS: Aspirin 81 MG CHEW PO (07:38)
[2022-05-24] MEDS: Norethindrone 5 MG TAB 10 MG PO ×2 (07:38→19:54)
[2022-05-24] MEDS: Amiodarone 200 MG TAB 400 MG PO ×2 (07:39→19:53)
[2022-05-24] MEDS: Magnesium Oxide 400 MG TAB 800 MG PO ×2 (07:39→19:53)
[2022-05-24] MEDS: Tiotropium/Olodaterol 10 PUFF INHALER 2 PUFF IH (07:40)
[2022-05-24] MEDS: Mometasone 220 MCG 14 DOSE INHALER 1 PUFF IH ×2 (07:45→19:37)
[2022-05-24] MEDS: Ipratropium 0.5 MG/2.5 ML UPD VIAL UPD ×2 (10:29→14:16)
--- NOTE | 2022-05-24 11:14 | CMPROGNOTE_ITS ---
- If Service Date Differs Date of service: 05/24/22 Time of Service: 11:14 Care Management Progress Note S/O: Елена was sitting up in her chair when CM met with her. She was napping and stated that she is tired, but was able to engage in conversation. Елена stated that she feels she would benefit from short term rehab. CM discussed this with her, as she is only agreeable to going to [facility], which has declined her as [facility] facilities are not able to accommodate a Trilogy. CM talked to Елена about SWB 1, which is short term, and she may need longer than 7-10 days. She also would need to be approved for SWB from her insurance, [facility]. Елена prefers to try SWB 1 for a week, and agrees to identify alternative SNF's if she does not improve. LAMBERTO initiated the PA from [facility]. CM will attempt to facilitate a family meeting to discuss expectations for SWB and discharge planning. CM will continue to follow. A: Deepthi is a 61 female admitted to [facility] on 05/10/22 P: Елена is being closely monitored at ICU level of care. She will likely be discharged home when medically cleared by MD, with a resumption of RN. She will follow up with her PCP and plan of care and transport with family. CM will continue to assess and support identified discharge needs.
[2022-05-24 11:39] LABS: CREATININE 0.8 mg/dL (0.55-1.02); Estimated GFR 82.74 (mL/min/1.73m2); Vancomycin, Trough 15.5 ug/mL (10.0-20.0)
[2022-05-24] MEDS: VANCOMYCIN 750 MG in Normal Saline 250 ML 166.67 MG IVPB (11:52)
[2022-05-24] MEDS: Normal Saline 500 ML 30 ML IV (11:52)
--- NOTE | 2022-05-24 12:30 | PDOC.STREC ---
Date of service: 05/24/22 Time of Service: 12:30 Speech Therapy Recommendations Report ST Recommendations: Елена was contacted at the end of her lunch meal this date, stating she continues to feel very tired and out of breath. She is on 2-3 L O2 via NC at time of visit. Patient reluctant to take PO trials, states she is too tired & full (though with majority of lunch tray remaining in front of her). She appears SOB consistent with yesterday when eating both purees and regular solids. She wishes to stay on her current diet. Given patient's current endorsed and observed fatigue level and increased WOB during very limited trials this date, plan to hold off on upgrading diet at this time to reduce risk of aspiration/choking and limit impact on WOB during meals. P FOOD BEVERAGE ATTENDANT to continue to follow while on unit. 1:1 feeding assist is still recommended to maximize PO intake and minimize work of breathing. Plan Plan: FOOD BEVERAGE ATTENDANT to follow patient while on unit to monitor for diet tolerance, provide education, and trial upgraded textures. Recommendations Recommendations: IDDSI Level(s) SOLIDS 5-Minced & Moist Solids LIQUIDS 0-Thin Liquids ? ? PO intake risk management as outlined Medication Intake: Whole with 4-Extremely Thick Liquids RISK MANAGEMENT: HOB upright as tolerated; upright for all PO intake. Encourage physical mobility as tolerated. Oral hygiene q4h/every 4 hours, before/after PO intake, using friction with toothbrush on all oral structures as tolerated ? Level of Assistance/Supervision: 1:1 Assistive feeding only by trained staff/family PO intake only when awake/alert? Strategies/Adaptations/Assistive Equipment: Reduce auditory and/or visual distractions when eating, Provide verbal and/or visual cues to use recommended strategies, Small sips and bites when eating, Slow rate of intake, Small+frequent meals throughout day Posture/Positioning Needs: Maintain upright position at least 30 minutes after meals, Avoid meals/snacks 2-3 hours prior to reclining/sleeping, Sleep with head of bed elevated to reduce likelihood of nocturnal reflux, Other Time spent: 5 min (no charges) Coding
--- NOTE | 2022-05-24 15:21 | W.PM.PROGNOT ---
Date of Service Date of service: 05/24/22 Time of Service: 15:21 Assessment and Plan Assessment and plan (1) Acute and chronic respiratory failure: Status: Acute Assessment and plan: Generally improving. Now on regular NC @ 1.5 - 2.5 LPM. Continue her LAMA/LABA (Stiolot Respimat) and her ICS (Asmanex) along w/ prn bronchodilator updrafts; cont. use of I.S. Encourage inreased activity. Continue P.T. to improve her strength. Used Trilogy overnight. Intermittently SOA even at rest. Endorses feeling anxious and then short of breath. Increase ative 0.5 po from QD prn to BID prn. Qualifiers: Respiratory failure complication: hypoxia and hypercapnia Qualified Code(s): J96.21 - Acute and chronic respiratory failure with hypoxia; J96.22 - Acute and chronic respiratory failure with hypercapnia (2) COPD (chronic obstructive pulmonary disease): Status: Chronic Assessment and plan: as above for respiratory failure Qualifiers: COPD type: COPD with acute exacerbation Qualified Code(s): J44.1 - Chronic obstructive pulmonary disease with (acute) exacerbation (3) Central line infection: Status: Suspected Assessment and plan: CVC tip grew GP zari and one blood culture grew Bacillus species. Patient is on Vancomycin (Through 05/25). Repeat blood cx negative x 96H. (4) Paroxysmal atrial fibrillation with rapid ventricular response: Status: Acute Assessment and plan: Remains in NSR, rhythm control w/ amiodarone and rate controlled w/ metoprolol. patient anticoagulated w/ apixaban. She is still on the loading doses of her amiodarone through 05/26 afterwards she should go down to 200 mg daily. (5) Peripheral arterial occlusive disease: Status: Chronic Assessment and plan: Aortogram w/ bilateral lower extremity runoff was done on 05/16 and demonstrated bilateral disease w/ R SFA occlusion w/ reconstitution via profunda collaterals but also has R posterior tibial occlusion; left side w/ multilevel disease but has good 3 vessel runoff at the calf. Due to her having ischemic of the left great toe for several days, she was placed on aspirin therapy along w/ her apixaban. She is on a PPI for GI protection from bleeding. (6) Elevated troponin I level: Status: Acute Assessment and plan: type II demand ischemia; preserved LV and RV function per echo 05/10 (7) (HFpEF) heart failure with preserved ejection fraction: Status: Chronic Assessment and plan: Lasix resumed per pulmonary service who feels that she will need lifelong diuretics. Also now on spironolactone to reduce her need for potassium and to help w/ diuretic control. Will decrease torsemide to 10 mg daily. Will continue to monitor her BMP (8) Anemia: Status: Chronic Assessment and plan: she has iron deficiency anemia. Serum iron is 35 w/ high TIBC 580, lower normal level of ferritin 31. I will put her on ferrous sulfate 325 mg bid along w/ vitamin C for absorption given her need for a PPI. (9) Seizure: Status: Suspected Assessment and plan: brain MRI ordered but not done. Hopefully will get on Sunday. If no evidence for CVA then can dc elena (10) DVT prophylaxis: Status: Acute Assessment and plan: now on apixaban (11) Discharge planning issues: Status: Acute Assessment and plan: Full code As per Dr Wu; she has indicated that she does not want to be reintubated. Palliative care met w/ the patient last week and completed a COLST form indicating that she wanted a short trial of reintubation in the event of acute respiratory failure. I do not believe this is actually her current wishes. I think that this should be re-visited w/ the patient and her family involvement and that hospital medicine should be involved in this discussion. She is now on med/surg and progressing. If she continues to improve then she could potentially be discharged mid week. disposition will depend on P.T. recommendations for inpatient skilled vs home health. She is agreeable to SNF for rehab. vs swing bed. (12) Carotid artery occlusion: Status: Acute Assessment and plan: Noted on MRI at time of admission; evaluating for possible seizure. CTA head/neck also showed occlusion of entire length of right internal carotid artery. Otherwise, CTA head unremarkable. No occlusion or significant stenosis of the CT angiography of the neck. Subjective Subjective Patient reports: tolerating a regular diet, shortness of breath (Endorses anxiety as a factor.) and afebrile; denies nausea or vomiting Exam Narrative Exam Narrative: Gen: Lying semi-supine in bed. Appears tired. Lungs: clear anteriorly. Diminished. Mild SOA with conversation. Heart: regular w/out murmur Abdomen: soft, nontender; normal bowel sounds Exts: Trace of pedal and pretibial edema. No calf tenderness. Psych: affect is blunted. Oriented x 3. Speech with some dysarthria. Objective Last Vital Signs Temp 36.9 C 05/24/22 11:39 Pulse 74 05/24/22 14:19 Resp 20 05/24/22 14:19 BP 138/80 05/24/22 11:39 Pulse Ox 97 05/24/22 14:19 Laboratory Results - last 24 hr 05/24/22 05/24/22 06:00 11:15 Sodium 139 Potassium 4.0 Chloride 97 L Carbon Dioxide 40.7 H Anion Gap 1.3 L BUN 16 Creatinine 0.9 0.8 Est GFR (CKD-EPI 2020) 71.83 82.74 Glucose 103 Calcium 9.1 Vancomycin Trough 15.5
[2022-05-24] MEDS: LORazepam 0.5 MG TAB PO ×2 (15:30→22:29)
--- NOTE | 2022-05-24 16:05 | RESPIRATORY ---
Pt's own Trilogy WES machine. DME: [employer] O2 bleed in: 2 Lpm Mode #1: AVAPS-AE BR-Auto Target VT 350-650 Max Pressure: 20 Pressure Support Min: 5, Max:15 EPAP Min: 5-10, Max 5-10
[2022-05-24] MEDS: Melatonin 3 MG TAB 6 MG PO (21:17)
[2022-05-24] MEDS: Metoprolol CR 100 MG TABCR 200 MG PO (21:17)
[2022-05-25] VITALS (11 sets, daily range): BP systolic 138–153; BP diastolic 79–88; PULSE 67–75; RESP 2–30; TEMP 35.9–37.2; O2SAT 88–98
[2022-05-25] MEDS: Normal Saline Flush 10 ML SYR IVP ×3 (00:46→12:19)
[2022-05-25] MEDS: VANCOMYCIN 750 MG in Normal Saline 250 ML 167 MG IVPB ×2 (00:47→12:18)
[2022-05-25] MEDS: Ipratropium 0.5 MG/2.5 ML UPD VIAL UPD (02:54)
[2022-05-25] MEDS: Levalbuterol 1.25 MG/3 ML UPD VIAL UPD ×2 (03:13→11:02)
--- NOTE | 2022-05-25 07:45 | PT.INTREAT ---
Date of service: 05/24/22 Time of Service: 10:04 PT Notes Visit Reasons: Hypoxemic/Hypercarbic Respiratory Failure,Seizure Inpatient Physical Therapy Treatment Note [facility] Date: 05/24/2022 PRECAUTIONS: Activity as tolerated SUBJECTIVE: Елена is pleasant and agreeable to participating in PT. She reports that she is feeling very SOB today, even at rest. OBJECTIVE: PAIN: No c/o pain BED MOBILITY/TRANSFERS Sit-stand: SBA Stand-sit: SBA GAIT Assistive Device: FWW Weight bearing: Full Assist: SBA Distance: 15' x3 Deviation: Seated rest, significant SOB, increased fatigue, 3L O2 TOILETING: Patient toileted with SBA for transfers ASSESSMENT: Patient tolerated session with complaint of increased global fatigue and SOB with all activity. She continues to demonstrate limited activity tolerance. PLAN: Continue with global strengthening and gait training for improved activity tolerance. TREATMENT CODE/TIME: 26 minutes; [id number] x2 (10:04)
[2022-05-25] MEDS: Mometasone 220 MCG 14 DOSE INHALER 1 PUFF IH (07:57)
[2022-05-25] MEDS: Tiotropium/Olodaterol 10 PUFF INHALER 2 PUFF IH (07:57)
[2022-05-25] MEDS: Ferrous Sulfate 325 MG TAB PO (09:14)
[2022-05-25] MEDS: Spironolactone 25 MG TAB PO (09:14)
[2022-05-25] MEDS: Torsemide 20 MG TAB 10 MG PO (09:14)
[2022-05-25] MEDS: Ascorbic Acid 500 MG TAB PO (09:14)
[2022-05-25] MEDS: Pantoprazole 40 MG TABCR PO (09:14)
[2022-05-25] MEDS: FLUoxetine 10 MG TAB PO (09:15)
[2022-05-25] MEDS: Norethindrone 5 MG TAB 10 MG PO (09:15)
[2022-05-25] MEDS: Apixaban 5 MG TAB PO (09:15)
[2022-05-25] MEDS: Aspirin 81 MG CHEW PO (09:15)
[2022-05-25] MEDS: Multivitamin w/Minerals TAB 1 TAB PO (09:15)
[2022-05-25] MEDS: Magnesium Oxide 400 MG TAB 800 MG PO (09:16)
[2022-05-25] MEDS: Amiodarone 200 MG TAB 400 MG PO (09:30)
[2022-05-25] MEDS: Protein Nutritional Supplement 16 GM 1 OUNCE PACKET PO (09:30)
--- NOTE | 2022-05-25 10:07 | OTIE_ITS ---
Occupational Therapy Notes Inpatient Occupational Therapy Evaluation Date: 05/25/22 Referring Doctor:Dr. Meneses OT Orders: Non urgent Precautions: Fall, standard, full PATIENT PROFILE/ADMITTING DIAGNOSIS: Pt is a 61 year old female who was admitted to [facility] for a dx of of acute and chronic respiratory failure, central line infection, PAF with RVR, ischemia L foot, COPD exacerbation, elevated troponin level, HFpEF heart failure with preserved ejection fraction, anemia, acute kidney injury, and seizure. Past Medical History: All Active Problems?(Updated 05/10/22 @ 15:59 by Chelsey Marrero MD) Leukocytosis (Acute) Hyperkalemia (Acute) CHF exacerbation (Acute) Acute on chronic respiratory acidosis (Acute) Respiratory failure with hypoxia and hypercapnia (Acute) WENDY (acute kidney injury) (Acute) Elevated troponin I level (Acute) Altered mental status (Acute) Hypercarbia (Acute) Acidemia (Acute) SOB (shortness of breath) (Acute) Hypercarbia (Acute) COPD exacerbation (Acute) Acute and chronic respiratory failure (Acute) Vaginal bleeding (Acute) Hyponatremia (Acute) Pulmonary hypertension (Chronic) Hypoxia (Chronic) (HFpEF) heart failure with preserved ejection fraction (Chronic) Anxiety (Chronic) Dyspnea (Acute) Acute anemia (Acute) Postmenopausal bleeding (Acute) Dyspnea on exertion (Acute) S/P left inguinal hernia repair (Acute) 01/21/19 Dr Odette Cormier, leftLeft inguinal hernia (Acute) Incarcerated inguinal hernia, unilateral (Acute) Small bowel obstruction (Acute) Dehydration (Acute) Hypertension (Chronic) Change in mental status (Acute) Cardiomyopathy (Acute) Iron deficiency anemia due to chronic blood loss (Chronic) Chronic bronchitis with COPD (chronic obstructive pulmonary disease) (Acute) Alcohol abuse (Acute) COPD (chronic obstructive pulmonary disease) (Chronic) Medical History? Alcoholic gastritis Former smoker Hyponatremia Mood disorder with psychosis Neck pain on right side Palliative care patient Pneumonia Post-menopausal bleeding Pulmonary hypertension Respiratory failure with hypoxia Uterine mass Not candidate for surgery at [facility] or [facility].08/10/21. Had partial uterine artery embolization. Unable to complete 2/2 hypoxia. Surgical History? EGD - MAC (07/04/16) Social History/Home Situation: lives with her in private home. She notes that she was (I) at her baseline level of function. She states that her does the grocery shopping and cooking. She reports that her breathing is what bothers her the most at this time. Equipment owned/DME: Shower seat, grab bars, FWW SUBJECTIVE: Pt was sitting in chair when OT arrived. She is agreeable to consult and notes that she is tired today. OBJECTIVE: General Observation: Pleasant and agreeable, IV in (R) UE Mental Status: A&Ox3 Pain: c/o pain throughout (B) UE ROM: RUE AROM WFL L UE AROM WFL STRENGTH: RUE 3/5 throughout LUE 3/5 throughout FUNCTIONAL MOBILITY/ADLS: Transfers with FWW BATHING sitting in chair with max (A) Set up/clean up Bathing UE (I) face, (B) UE, abdomen- pt requires mod vc throughout as she notes that she is too tired Bathing LE (I) (B) LE to knees DRESSING sitting in chair Dressing UE min (A) don and doffing hosptial gown Dressing LE NT GROOMING NT pt denied. TOILETING NT BALANCE: Static sitting Normal Dynamic Sitting Good SPECIAL TESTS: Daily Activity Limitations Standardized Measure [facility] AM PAC ?6 clicks? Daily Activity Inpatient Short Form: Raw score: 19 Standardized score: 40.22 CMS score: 42.80% INFORMED CONSENT/EDUCATION: Pt instructed in purpose of OT Consult and plan of care. ASSESSMENT: Patient is a 61-year-old female referred to occupational therapy services with diagnosis of acute and chronic respiratory failure, central line infection, PAF with RVR, ischemia L foot, COPD exacerbation, elevated troponin level, HFpEF heart failure with preserved ejection fraction, anemia, acute kidney injury, and seizure. Patient presents with clinical signs and symptoms consistent with dx, as demonstrated by the following impairment level findings/functional limitations: impairments in ADL/IADL and leisure activities, decreased functional activity tolerance, pain throughout body, decreased functional mobility required for ADL performance. AMPAC score 19 Patient is assessed as a Moderate 56901 complexity based on the following: History: see above Examination: see functional limitations as noted above Presentation: evolving Decision Making: AMPAC score 19 GOALS Goals x1 week 1. Transfers (I) 2. Dressing sitting in chair (I) 3. Bathing standing at sink (I) UE/LE 4. Toileting on toilet (I) 5. Eating (I) PLAN OF CARE/TREATMENT PLAN: 1x/day, 5 days/ week x 1week Initiate Occupational Therapy Services for bathing, dressing, grooming, toileting, eating, transfer training. DISCHARGE RECOMMENDATIONS OT recommends SNF vs. Home with HH services. TREATMENT TIME/MINUTES/CODES 97295, [id number], 15 minutes (09:10) Maci Benjamin OTR/L [facility] [place]
--- NOTE | 2022-05-25 10:40 | W.PM.DS.N ---
Date of service: 05/25/22 Time of Service: 10:40 DS: Diagnosis Discharge Diagnosis (1) Acute and chronic respiratory failure: Status: Acute (2) COPD (chronic obstructive pulmonary disease): Status: Chronic (3) Central line infection: Status: Suspected (4) Paroxysmal atrial fibrillation with rapid ventricular response: Status: Acute (5) Peripheral arterial occlusive disease: Status: Chronic (6) Elevated troponin I level: Status: Acute (7) (HFpEF) heart failure with preserved ejection fraction: Status: Chronic (8) Anemia: Status: Chronic (9) Seizure: Status: Suspected Asessment and Plan: There was an initial concern for a seizure at time of presentation; possible post-ictal state. EEG did not show any epileptiform acitivity or focal slowing. Keppra was inititated, then later stopped. No seizure, seizure like activity noted during the course of this hospitalization. (10) DVT prophylaxis: Status: Acute (11) Discharge planning issues: Status: Acute (12) Carotid artery occlusion: Status: Acute Discharge Plan Disposition Patient Disposition: [facility] BED LEVEL 1 Condition: Serious Discharge Details Reason For Visit: Hypoxemic/Hypercarbic Respiratory Failure,Seizure Admit Date/Time: 05/10/22 08:49 Admit Provider: Norman Wu Attending Provider: Norman Wu Primary Care Provider: [facility] Hospital Course: 61-year-old female with oxygen dependent COPD, hypertension, HFpEF presented to the emergency department in acute respiratory failure with hypoxemic and hypercarbic respiratory failure.? stated that she has been struggling for a couple of days with increasing dyspnea. Noted to be confused on day of presentation.? EMS found her oxygen saturation in the 70s on arrival.? Patient's GCS was estimated 10 on arrival responding to loud verbal stimuli and painful stimuli groaning with verbal responses and opening her eyes to pain and sound and following basic commands.? Patient was treated with nebulized bronchodilators and IV steroids for treatment of COPD exacerbation.? Concern was raised for possible postictal state as the patient was found to have some tongue lacerations.? Patient was tachycardic 130's sinus tachycardia, initially hypertensive w/ BP 160/109 and repeat of 152/101 however she became hypotensive w/ BP 68/49 and 77/52 associated w/ administration of sedation for preparation for intubation. She required fluid boluses and norepinephrine. Patient's BP did improve. She was intubated on a propofol drip. Talking w/ her it does not sound like she had any antecedent infectious symptoms such as fever, chills or increased mucous production but she became progressively more dyspneic over past 24hr although it sounds like she had been having increased difficulty for at least couple days despite use of her nebulizer. Workup in the ED included routine labs including CBC (WBC 11,700), CMP (BUN 39, creatinine 1.4 w/ baseline 18 and 0.9, CO2 >45, pro BNP 17,600, troponin I of 62, 112, 119. Negative alcohol and UDS screen. UA unremarkable. Head CT no acute intracranial process. CXR w/ mild diffuse patchy interstitial infiltrates. EKG demonstrates sinus tachycardia @ 106 bpm however she has anterolateral T wave inversions which appear to be new compared to 03/27/22. Previous echo was done 02/06/22 which showed normal LV size and motion w/ LVEF 55-60%, normal RV size and function. Stat bedside echo performed by admitting hospitalist. Global left ventricular systolic function appeared to be likely normal w/o any obvious segmental wall motion abnormalities. Patient was followed by Dr Marrero, dump grader/residential real estate agent. D dimer elevated at 874. Neurology consulted given possible seizure. Keppra initiated in the ED. EEG showed no focal regions of cerebral dysfunction or epileptiform activity was present. While intubated she developed afib with RVR; initially treated with IV diltiazem. She also required Levophed for pressure support. There was an inadequate response to diltiazem and amoiodarone gtt initiated. Once extubated, amiodarone converted to oral. Also noted was a Type 2 NSTEMI in setting of hypoxemia/respiratory failure/fluid overload. Echo: LVEF preserved; no wall motion abnormalities. Does have RV dilation on echo. COPD treated with prednisone 40mg daily, nebs, Symbicort and azithromycin for 5 days. CHF treated with diuretics with good response. Her torsemide was decreased eventually to 10mg daily with continued dosing of spironolactone at 25mg daily (the later initiated for diuretic effect and to assist in maintenance of her K+ level). She was extubated and maintained on supplemental O2 per [place]. Speech and nutrition consulted. Gram positive cocci grew in blood cultures. Her central line was discontinued and vancomycine and cefepime initiated. However, the GPC was likely a contaminant. Blood cultures from 05/13 (peripheral draw) showed no growth, blood culture 05/13 from central line grew Staph epi from anaerobic culture; repeat blood cultures from 05/15 1 set had no growth, the other set had aerobic bottle positive for gram positive rods, Bacillus species, not anthracis. This likely is contaminant. Her MRSA was negative and sputum culture from 05/14 showed no growth. Procalcitonin negative. She subsequently completed a 10 day course of vancomycin. She was noted to have mottling of the left foot at great toe and 2nd NTO, She was noted to have bilateral PAD per her CTA of her legs. Most notably she has occluded R. SFA. Discussed her clinical presentation, lack of ischemic pain or ulcerations and intact sensation in her feet along w/ the CTA findings w/ vascular surgeon, Dr. Evangelista at [facility] [place]. He felt that the occluded SFA on the right is probably chronic and she has collateral flow to the right foot and for that reason we are able to obtain pulses and the right foot is warm. He concurs w/ use of anticoagulation along w/ ASA and to check CHRISTY. If CHRISTY in her legs is <0.5 or if she gets ischemic pain or ischemic changes in her exam then he indicated that we are to call [facility] and he will arrange transfer for acute intervention, otherwise she should reduce her vascular risk factors, i.e. statin for HLD, stop smoking, continue ASA and DOAC and follow up w/ vascular clinic at [facility]. Now on regular NC @ 2.5 LPMm LAMA/LABA (Stiolot Respimat) and her ICS (Asmanex) along w/ prn bronchodilator updrafts; cont. use of I.S. Encourage increased activity.? Continue P.T. to improve her strength. Pt however, requires much encourage to participate in activity. Patient approved for her Trilogy device and she has been using it intermittently at night as she adjusts to it. She endorses some claustrophobia with the mask and insomnia. She has ativan 0.5mg po BID prn to utilize. Initiating gabapentin at 200mg QHS to help with insomnia; can titrate as needed for effectiveness. On amiodarone she did convert to NSR. After 05/26/2022 she will decrease the dose of amiodarone to 200mg daily. Carotid artery occlusion noted on MRI at time of admission; when evaluating for possible seizure. CTA head/neck also showed occlusion of entire length of right internal carotid artery.? Otherwise, CTA head unremarkable.? No occlusion or significant stenosis of the CT angiography of the neck. Patient has been approved by her insurance carrier for 5 days of swingbed status. During that time it will be important to assist in her acceptance/use of the Trilegy device. She will also be encouraged to participate in PT efforts. Her goal is to return home. Home Meds and New Rx's Prescriptions: No Action multivitamin Tablet 1 tab DAILY Label Comments: take 1 tablet by mouth once daily norethindrone acetate 5 mg tablet 10 mg PO BID Qty: 240 5RF Stiolto Respimat 2.5-2.5 mcg/actuation Mist 2 puff INHALATION DAILY lorazepam 0.5 mg tablet 0.5 mg PO DAILY PRN PRN Label Comments: TAKE 1 TABLET BY MOUTH EVERY DAY NEEDED FOR PANIC nystatin [Nystop] 100,000 unit/gram powder 1 applic TOPICAL DIRECTED Label Comments: APPLY A SMALL AMOUNT TO AFFECTED AREA 2-3 TIMES A DAY UNTIL HEALED Rx Instructions: APPLY A SMALL AMOUNT TO SKIN 2-3 TIMES PER DAY UNTIL HEALED fluticasone propionate [Flovent HFA] 220 mcg/actuation HFA aerosol inhaler 1 puff INHALATION BID Label Comments: INHALE 1 PUFF BY MOUTH TWICE DAILY WITH STIOLTO ipratropium bromide 0.02 % Solution 0.25 mg UPD BID Qty: 60 0RF levalbuterol tartrate 45 mcg/actuation Hfa Aerosol Inhaler 2 puff inhalation Q4H PRN PRNQty: 15 0RF levalbuterol HCl 1.25 mg/3 mL Solution For Nebulization 1.25 mg UPD BID Qty: 60 0RF metoprolol succinate 100 mg Tablet Extended Release 24 Hr 200 mg PO HS Qty: 60 0RF fluoxetine 20 mg Capsule 10 mg PO DAILY acetaminophen 325 mg Tablet 650 mg PO PRN PRN lisinopril 20 mg tablet 20 mg PO DAILY Label Comments: TAKE ONE TABLET BY MOUTH EVERY DAY spironolactone 50 mg Tablet 50 mg PO 1XD furosemide 80 mg tablet 1 tab BID Label Comments: Take 1 tablet by mouth twice a day 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 and noon ipratropium-albuterol 0.5 mg-3 mg(2.5 mg base)/3 mL solution for nebulization 3 ml INHALATION BID PRN Label Comments: Inhale 3 ml as directed twice a day as needed risperidone 0.25 mg tablet 1 tab PO HS Label Comments: Take 1 tablet by mouth at bedtime pregabalin 25 mg capsule 1 - 2 cap PO BID Label Comments: Take 1-2 capsule by mouth twice a day magnesium oxide 400 mg (241.3 mg magnesium) Tablet 400 mg PO HS Qty: 0 0RF prednisone 20 mg Tablet 40 mg PO DAILY Qty: 6 0RF ferrous sulfate 325 mg (65 mg iron) tablet 1 tab PO DAILY Label Comments: Take 1 tablet by mouth once a day Discharge Instructions Activity:: Activity as Tolerated Equipment/Supplies:: No Equipment Needed Diet:: Heart healthy DS: Summary Time Spent with Patient providing and/or coordinating discharge services: Greater than 30 minutes Status at Discharge Functional status at discharge: uses cane/walker Overall status at discharge: patient is not back to baseline Mental Status: mental status grossly normal Speech and Movement: slowed movement Mood: anxious mood Affect: blunted Exam Psych Mental Status: mental status grossly normal Speech and Movement: slowed movement Mood: anxious mood Affect: blunted DS: Data Vitals/I&O Vitals and I&O: Vital Signs Temperature 37.2 C 05/25/22 07:40 Temperature Source Tympanic 05/25/22 07:40 Pulse 73 05/25/22 07:40 Pulse Rhythm Regular 05/24/22 23:20 Pulse 72 05/20/22 01:00 Respiratory Rate 18 05/25/22 07:40 Respiratory Effort 05/24/22 23:20 Respiratory Depth Shallow 05/24/22 23:20 Respiratory Pattern Tachypnea 05/24/22 23:20 Blood Pressure 152/85 H 05/25/22 07:40 Blood Pressure Mean 95 05/20/22 00:07 Blood Pressure Position Supine 05/20/22 00:00 Pulse Oximetry 93 05/25/22 07:40 Respiratory End-tidal CO2 56 05/15/22 10:12 Oxygen Delivery Method Nasal Cannula 05/25/22 07:40 Oxygen Flow Rate 2.5 05/25/22 07:40 Fraction of Inspired Oxygen (FIO2) 32 05/24/22 14:19 Pain Level 0 05/25/22 07:40 Comment ANTIQUE CLOCKS REPAIRER/RN informed 05/23/22 11:15 Intake & Output 05/24/22 05/24/22 05/25/22 11:59 23:59 11:59 Intake Total 800 / 1693 893 / 1693 370 / 370 Output Total 750 / 1800 1050 / 1800 500 / 500 Balance 50 / -107 -157 / -107 -130 / -130 Weight 80.1 kg 79.7 kg Intake: IV 260 / 793 533 / 793 250 / 250 Oral 540 / 900 360 / 900 120 / 120 Output: Urine 750 / 1800 1050 / 1800 500 / 500 Other: Urine Color Yellow Straw Yellow Urine Appearance Clear Clear Clear Urine Odor Normal Normal Comment urine mixed with stool unable to get an accurate amount Stool Occult Blood Negative Stool Size Small Small Large Stool Characteristics Soft Soft Soft Brown Formed Formed Brown Brown Voiding Methods Bedside Commode Bedside Commode Bedside Commode Data Completed and Pending Labs on day of discharge: Labs from last 24 hours 05/24/22 11:15 Creatinine 0.8 Est GFR (CKD-EPI 2020) 82.74 Vancomycin Trough 15.5 PFSH All Active Problems Carotid artery occlusion (Acute) Peripheral arterial occlusive disease (Chronic) Anemia (Chronic) Palliative care encounter (Acute) Ischemia of foot (Acute) Paroxysmal atrial fibrillation with rapid ventricular response (Acute) PAF (paroxysmal atrial fibrillation) (Acute) Discharge planning issues (Acute) DVT prophylaxis (Acute) Leukocytosis (Acute) Hyperkalemia (Acute) CHF exacerbation (Acute) Acute on chronic respiratory acidosis (Acute) Respiratory failure with hypoxia and hypercapnia (Acute) Elevated troponin I level (Acute) Altered mental status (Acute) Hypercarbia (Acute) Acidemia (Acute) SOB (shortness of breath) (Acute) Hypercarbia (Acute) COPD exacerbation (Acute) Acute and chronic respiratory failure (Acute) Vaginal bleeding (Acute) Hyponatremia (Acute) Pulmonary hypertension (Chronic) Hypoxia (Chronic) (HFpEF) heart failure with preserved ejection fraction (Chronic) Anxiety (Chronic) Dyspnea (Acute) Acute anemia (Acute) Postmenopausal bleeding (Acute) Dyspnea on exertion (Acute) S/P left inguinal hernia repair (Acute) 01/21/19 Dr Odette Cormier, left Left inguinal hernia (Acute) Incarcerated inguinal hernia, unilateral (Acute) Small bowel obstruction (Acute) Dehydration (Acute) Hypertension (Chronic) Change in mental status (Acute) Cardiomyopathy (Chronic) Iron deficiency anemia due to chronic blood loss (Chronic) Chronic bronchitis with COPD (chronic obstructive pulmonary disease) (Acute) COPD (chronic obstructive pulmonary disease) (Chronic) Medical History Alcohol abuse History of alcohol abuse, reports sober since 2013 Alcoholic gastritis Former smoker Hyponatremia Mood disorder with psychosis Neck pain on right side Palliative care patient Pneumonia Post-menopausal bleeding Pulmonary hypertension Respiratory failure with hypoxia Uterine mass Not candidate for surgery at [facility] or [facility].08/10/21. Had partial uterine artery embolization. Unable to complete 08/17 hypoxia. 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 Daughter Evonne Hernandez Do you feel safe at home: Yes Do you feel safe in your relationship?: Yes
[2022-05-25] MEDS: LORazepam 0.5 MG TAB PO (11:02)
--- NOTE | 2022-05-25 11:14 | PDOC.CMPRO ---
- If Service Date Differs Date of service: 05/25/22 Time of Service: 11:14 Care Management Progress Note S/O: Deepthi will transition to SWB1 today to work with PT/OT while adjusting to wearing her Trilogy. CM received an approval for 5 days of SWB1, with her last day as 05/29/22. Palliative will see her today, and will follow her outpatient once she is ready for discharge. LAMBERTO met with Елена and discussed the plan of care for her SWB1, and informed her of the 5 day approval, limiting her SWB stay. Her plan will be to return home with increased HH supports on Sunday. Елена did not have any questions or concerns that were unanswered. CM will continue to follow. A: Deepthi is a 61 female admitted to [facility] on 05/10/22 P: Елена is entering SWB 1 for continued strengthening and improved mobility, working with PT/OT. Once she is medically cleared, she will return home with increased HH supports. She will follow up with her PCP and plan of care and transport with family. CM will continue to assess and support identified discharge needs.
[2022-05-25] MEDS: Normal Saline 500 ML 30 ML IV (12:19)
--- NOTE | 2022-05-25 13:30 | W.PALLCONSUL ---
Date of service: 05/25/22 Time of Service: 13:31 History of Present Illness Narrative: This is Елена's third Palliative visit during this hospitalization. She has been seen by Palliative during previous admissions. Елена has had 7 hospital visits with over the last year, mostly for acute on chronic respiratory failure. There have been several conversations about CODE STATUS. She has chosen to remain a FULL CODE, she has a COLST that states she would only want intubation for a short period, specifically up to a week. She was intubated during this admission. She was been started on Trilogy during this admission. She is transitioning to [facility] level of care for 5 days (based on insurance authorization). ? if she would qualify for long-term medicaid/choices for care for additional help at home- CM to evaluate. We discussed expectations for rehab- she would only want to stay until she can care for herself. She states, I will have to talk to my daughter, I don't think I am ready to go home yet. Support at home- has home health coming in, her is with her, Evonne will stay with her until she figures out Trilogy. She reports that Evonne is busy trying to get her nursing degree. Briefly discussed hospice as an option for when she no longer wants to go to the hospital and wants to stay home and be kept comfortable. She has advanced directives which indicate that she wants aggressive care. She has assigned health care agents - Evonne Hernandez, daughter is her first agent. Her , Osmani Hernandez is her alternate agent. Reviewed the fact that she was on a ventilator during this admission, discussed if she would want that again and she states, well it brought me back this time. She clearly has increased WOB at rest. Her SOB increases with talking. She had Trilogy on at the start of the visit but asked nursing to take it off during the meeting. Discussed trial of morphine oral concentrate, she is open to trying, she states, anything to make me feel better. Assessment and Plan Assessment and plan (1) Acute and chronic respiratory failure: Status: Acute (2) Respiratory failure with hypoxia and hypercapnia: Status: Acute (3) Hypoxia: Status: Chronic (4) (HFpEF) heart failure with preserved ejection fraction: Status: Chronic (5) Anxiety: Status: Chronic (6) Dyspnea: Status: Acute (7) Postmenopausal bleeding: Status: Acute (8) History of alcoholism: Status: Resolved (9) Cardiomyopathy: Status: Chronic (10) COPD (chronic obstructive pulmonary disease): Status: Chronic Qualifiers: COPD type: COPD with acute exacerbation Qualified Code(s): J44.1 - Chronic obstructive pulmonary disease with (acute) exacerbation (11) Palliative care encounter: Status: Acute Assessment and plan: This is Елена's third Palliative visit during this hospitalization. She has been seen by Palliative during previous admissions. Елена has had 7 hospital visits with over the last year, mostly for acute on chronic respiratory failure. There have been several conversations about CODE STATUS. She has chosen to remain a FULL CODE, she has a COLST that states she would only want intubation for a short period, specifically up to a week. She was intubated during this admission. She reports that being intubated saved her/brought her back. She was been started on Trilogy during this admission. She is transitioning to SWB level of care for 5 days (based on insurance authorization). Disposition: She will remain on SWBx5 days. She knows she is not ready to return home. She would be interested in SNF temporarily to see if she can get stronger. It is not clear if this will be covered by insurance. She states they do not have funds to hire help at home or pay for a facility. Consider long-term medicaid/[facility] application- discussed with CM. If she goes home, she has her , HH and her daughter to help. Her daughter is busy with nursing school. She has advanced directives which indicate that she wants aggressive care. She has assigned health care agents - Evonne Hernandez, daughter is her first agent. Her , Osmani Hernandez is her alternate agent. She has increased WOB at rest, increases with talking. Trial MS adi concentrate. Discussed hospice briefly - when she no longer wants to go to the hospital for Tx and prefers to be treated at home. Hospice would provide more support and symptom management. It will be helpful to have her family involved in some visits going forward. She will benefit from ongoing Palliative visits after discharge from the hospital. F/u during this hospitalization or after discharge. Review of Systems Narrative: She denies pain, she is eating and drinking and tolerating her diet, she is moving her bowels. She states, it's just my breathing. PFSH All Active Problems (Updated 05/26/22 @ 14:36 by Rubi Javier NP) Acute and chronic respiratory failure (Acute) Carotid artery occlusion (Acute) Peripheral arterial occlusive disease (Chronic) Anemia (Chronic) Palliative care encounter (Acute) Ischemia of foot (Acute) PAF (paroxysmal atrial fibrillation) (Acute) DVT prophylaxis (Acute) Respiratory failure with hypoxia and hypercapnia (Acute) SOB (shortness of breath) (Acute) Hypercarbia (Acute) Vaginal bleeding (Acute) Hyponatremia (Acute) Pulmonary hypertension (Chronic) Hypoxia (Chronic) (HFpEF) heart failure with preserved ejection fraction (Chronic) Anxiety (Chronic) Dyspnea (Acute) Acute anemia (Acute) Postmenopausal bleeding (Acute) Dyspnea on exertion (Acute) S/P left inguinal hernia repair (Acute) 01/21/19 Dr Odette Cormier, left Left inguinal hernia (Acute) Incarcerated inguinal hernia, unilateral (Acute) Small bowel obstruction (Acute) Dehydration (Acute) Hypertension (Chronic) Change in mental status (Acute) Cardiomyopathy (Chronic) Iron deficiency anemia due to chronic blood loss (Chronic) Chronic bronchitis with COPD (chronic obstructive pulmonary disease) (Acute) COPD (chronic obstructive pulmonary disease) (Chronic) Medical History Alcohol abuse History of alcohol abuse, reports sober since 2013 Alcoholic gastritis Former smoker Hyponatremia Mood disorder with psychosis Neck pain on right side Palliative care patient Pneumonia Post-menopausal bleeding Pulmonary hypertension Respiratory failure with hypoxia Uterine mass Not candidate for surgery at [facility] or [facility]08/10/[place]. Had partial uterine artery embolization. Unable to complete 2/2 hypoxia. 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 Daughter Evonne Hernandez Do you feel safe at home: Yes Do you feel safe in your relationship?: Yes Exam Narrative Exam Narrative: General: very pleasant middle aged woman, sitting up in the recliner. She was wearing the Trilogy initially but then asked nursing to take it off during the visit. HEENT: normocephalic, atraumatic, EOMI, mmm. Neck: supple. Respiratory: increased WOB at rest, increased with talking. GI: soft, round abd, nontender on palpation. Extremities: trace edema to BLEs. Psych: appears anxious. Results Last Vital Signs Temp 36.5 C 05/25/22 11:35 Pulse 67 05/25/22 11:46 Resp 20 05/25/22 11:46 BP 153/88 H 05/25/22 11:35 Pulse Ox 91 L 05/25/22 11:46 Labs Result diagrams: 05/22/22 06:00 05/24/22 11:15
--- NOTE | 2022-05-26 09:01 | PT.INDS ---
Date of service: 05/26/22 PT Notes Visit Reasons: Hypoxemic/Hypercarbic Respiratory Failure,Seizure Physical Therapy Swing Bed Level I Initial Evaluation Date: 05/26/2022 Dates of Service: 05/17/2022 through 05/25/2022 This is a clinical summary of care provided for the duration of dates listed above. No charge was made in the completion of this documentation. Referring Doctor: Ashish Meneses MD PT Orders: PT CONSULT: Limited ability Precautions: Fall. Standard. Activity as tolerated. Patient Profile/Admitting Diagnosis:? Saida converted to swing bed level I of care for continued rehabilitattion in antcipation of discharge to home when medically ready.? Deepthi is a 61-year-old female with diagnoses of acute and chronic respiratory failure, central line infection, PAF with RVR, ischemia L foot, COPD exacerbation, elevated troponin level, HFpEF heart failure with preserved ejection fraction, anemia, acute kidney injury, and seizure. PMHX: All Active Problems?(Updated 05/10/22 @ 15:59 by Chelsey Marrero MD) Leukocytosis (Acute) Hyperkalemia (Acute) CHF exacerbation (Acute) Acute on chronic respiratory acidosis (Acute) Respiratory failure with hypoxia and hypercapnia (Acute) WENDY (acute kidney injury) (Acute) Elevated troponin I level (Acute) Altered mental status (Acute) Hypercarbia (Acute) Acidemia (Acute) SOB (shortness of breath) (Acute) Hypercarbia (Acute) COPD exacerbation (Acute) Acute and chronic respiratory failure (Acute) Vaginal bleeding (Acute) Hyponatremia (Acute) Pulmonary hypertension (Chronic) Hypoxia (Chronic) (HFpEF) heart failure with preserved ejection fraction (Chronic) Anxiety (Chronic) Dyspnea (Acute) Acute anemia (Acute) Postmenopausal bleeding (Acute) Dyspnea on exertion (Acute) S/P left inguinal hernia repair (Acute) 01/21/19 Dr Odette Cormier, leftLeft inguinal hernia (Acute) Incarcerated inguinal hernia, unilateral (Acute) Small bowel obstruction (Acute) Dehydration (Acute) Hypertension (Chronic) Change in mental status (Acute) Cardiomyopathy (Acute) Iron deficiency anemia due to chronic blood loss (Chronic) Chronic bronchitis with COPD (chronic obstructive pulmonary disease) (Acute) Alcohol abuse (Acute) COPD (chronic obstructive pulmonary disease) (Chronic) Medical History? Alcoholic gastritis Former smoker Hyponatremia Mood disorder with psychosis Neck pain on right side Palliative care patient Pneumonia Post-menopausal bleeding Pulmonary hypertension Respiratory failure with hypoxia Uterine mass Not candidate for surgery at [facility] or [facility]. Had partial uterine artery embolization. Unable to complete 2/2 hypoxia. Surgical History? EGD - MAC (07/04/16) Social History/Home Situation: Lives with in a private home with 4 steps to enter with rails on both sides.? Independent with mobility ADLs prior to admission.? cooks meals while she does laundry.? Still drives.? Equipment Owned/DME: BSC, FWW, SPC,? shower seat Subjective: NT. See most recent LEAD MEDICAL TECHNOLOGIST notes. Objective: General Observation: NT. See most recent LEAD MEDICAL TECHNOLOGIST notes. Mental Status: NT. See most recent LEAD MEDICAL TECHNOLOGIST notes. Pain: NT. See most recent LEAD MEDICAL TECHNOLOGIST notes. Vital Signs: NT. See most recent LEAD MEDICAL TECHNOLOGIST notes. ROM: Right Upper Extremity: ? Shoulder Flexion WFL. Shoulder abduction WFL. Elbow flexion WFL. Wrist flexion WFL. Functional opening and closing of hand WFL. Left Upper Extremity:? Shoulder Flexion WFL. Shoulder abduction WFL. Elbow flexion WFL. Wrist flexion WFL. Functional opening and closing of hand WFL. Right Lower Extremity: Hip flexion lacks the last 25% of AROM. Hip abduction WFL. Knee flexion WFL. Ankle dorsiflexion to neutral only. Ankle plantarflexion WFL. Left Lower Extremity: Hip flexion lacks the last 25% of AROM. Hip abduction WFL. Knee flexion WFL. Ankle dorsiflexion to neutral only. Ankle plantarflexion WFL. Strength: Right Upper Extremity: Shoulder flexors 4-/5. Shoulder abductors 4-/5. Elbow flexors 4-/5. Elbow extensors 4-/5. Stranner strong. Left Upper Extremity: Shoulder flexors 4-/5. Shoulder abductors 4-/5. Elbow flexors 4-/5. Elbow extensors 4-/5. Stranner strong. Right Lower Extremity: Hip flexors 3-/5. Hip abductors 4-/5. Knee flexors 4-/5. Knee extensors 4-/5. Ankle dorsiflexors 3-/5. Ankle plantarflexors 3-/5. Left Lower Extremity: Hip flexors 3-/5. Hip abductors 4-/5. Knee flexors 4-/5. Knee extensors 4-/5. Ankle dorsiflexors 3-/5. Ankle plantarflexors 3-/5. Bed Mobility/Transfers:? (NAYANA Vallejo helped out for line management and safety) Sit to stand minimal assist stand by assist Stand to sit stand by assist Bed to bedside commode stand by assist Bedside commode to bedside chair stand by assist Gait: Instructed patient with level surface ambulation of 20 small steps.? Migdalia decreased. Step height decreased. Step length decreased.? Moderate shortness of breath that subsided with activity.? Reports increased weakness in B LE that resolved with rest. O2 sat low of 87% on 4L but re-saturated back to 91% after about 1 minute of seated rest. Balance: Static Sitting: Good Dynamic Sitting: Normal Static Standing: Fair Dynamic Standing: Fair Special Tests: Mobility Limitations Standardized Measure [facility] 6 clicks Basic Mobility Inpatient Short Form: Raw Score: 23? CMS Score: 11% deficit? ? ? Assessment: Activity tolerance slowly improving.? Saturastion level low of 87% on $ L of oxygen per minute after ambulation activity with recovery back to 91% after 1 minute of seated rest.? Patient converted to swing bed level I on 06/04/2022 and is re-evaluated today for continued rehabilitation to maxmize functional mobiluty outcomes.? Deepthi is a 61-year-old female with diagnoses of acute and chronic respiratory failure, central line infection, PAF with RVR, ischemia L foot, COPD exacerbation, elevated troponin level, HFpEF heart failure with preserved ejection fraction, anemia, acute kidney injury, and seizure.? Low endurance, needs frequent rests.? Remains on high flow oxygen supplementation.? Patient presents with clinical signs and symptoms consistent with current/admitting diagnoses that have resulted to mobility limitations, gait instability, generalized weakness, and overall ADL decline as demonstrated by the following impairment level findings: 1.? Decreased strength to B LE major muscle groups 2.? Impaired sitting/standing balance 3.? Impaired activity tolerance 4.? Shortness of breath 5.? Swelling Impairments are contributing to the following functional limitations: 1.? Decline in bed mobility skills 2.? Decline in transfer skills 3.? Difficulty with ambulation without assistive device and physical assistance 4.? Increased completion time for mobility ADL performance 5.? Increased risk for falls 6.? Difficulty with managing steps alone safely 7.? On high flow rate oxygen supp Goals: Goals X1 week 1. Supine-Sit independent NOT MET, CONTINUE 2. Sit-Supine independent NOT MET, CONTINUE 3. Sit-Stand independent NOT MET, CONTINUE 4. Stand-Sit independent with FWW NOT MET, CONTINUE 5. Bed-Chair independent with FWW NOT MET, CONTINUE 6. Chair-Bed independent with FWW NOT MET, CONTINUE 7. Supervision gait on level surface with use of FWW for at least 30 feet without report of pain nor dyspnea NOT MET, CONTINUE 8. Supervision stair negotiation while holding onto B rails for at least 4 steps without report of pain nor dyspnea NOT MET, CONTINUE 10. Good static and dynamic standing balance/tolerance NOT MET, CONTINUE DISCHARGE RECOMMENDATIONS: [] ? Home with no services [] [] ? Home with services [specify] [] ? Home with outpatient PT [] [] ? SNF for continued rehabilitation [] [] ? Solution Spec Care [] [] ? SNF versus LTC based on ability to participate and progress [] [X] ? SNF vs PT depending on progress towards goals TREATMENT CODE/TIME: NV Thank you for the opportunity to participate in the care of this patient. Marie Murillo PT, DPT, CLT [facility] [place], [place]
== END 2022-05-25 15:37 | disposition swing bed (61) | DRG 207 ==
LOC: ER 09:17 → ICU 14:02 → MS 05-20 07:59
PROVIDERS: Family Medicine; General Practice; Internal Medicine; Student in an Organized Health Care Education/Training Program; Admitting Provider Internal Medicine; Emergency Provider Emergency Medicine; PCP Family Medicine; Visit Provider Internal Medicine
DX: J96.21 Acute and chronic respiratory failure with hypoxia (principal); T80.218A Other infection due to central venous catheter, initial encounter; I21.A1 Myocardial infarction type 2; I50.33 Acute on chronic diastolic (congestive) heart failure; J44.1 Chronic obstructive pulmonary disease with (acute) exacerbation; N17.9 Acute kidney failure, unspecified; E87.20 Acidosis, unspecified; E87.1 Hypo-osmolality and hyponatremia; I47.1 Supraventricular tachycardia; I42.9 Cardiomyopathy, unspecified; Z16.19 Resistance to other specified beta lactam antibiotics; J96.22 Acute and chronic respiratory failure with hypercapnia; I11.0 Hypertensive heart disease with heart failure; R56.9 Unspecified convulsions; R40.2422 Glasgow coma scale score 9-12, at arrival to emergency department; G47.33 Obstructive sleep apnea (adult) (pediatric); Z99.81 Dependence on supplemental oxygen; I95.9 Hypotension, unspecified; E87.5 Hyperkalemia; D72.829 Elevated white blood cell count, unspecified; I27.20 Pulmonary hypertension, unspecified; F41.9 Anxiety disorder, unspecified; N95.0 Postmenopausal bleeding; K40.90 Unilateral inguinal hernia, without obstruction or gangrene, not specified as recurrent; E86.0 Dehydration; D50.0 Iron deficiency anemia secondary to blood loss (chronic); S01.512A Laceration without foreign body of oral cavity, initial encounter; X58.XXXA Exposure to other specified factors, initial encounter; I50.811 Acute right heart failure; G25.3 Myoclonus; I48.0 Paroxysmal atrial fibrillation; Z66 Do not resuscitate; E87.6 Hypokalemia; F10.11 Alcohol abuse, in remission; I70.201 Unspecified atherosclerosis of native arteries of extremities, right leg; B96.89 Other specified bacterial agents as the cause of diseases classified elsewhere; I65.21 Occlusion and stenosis of right carotid artery
CPT/HCPCS: 93308; 31500; 36415; 36416; 36592; 70496; 70498; 71045; 75635; 76942; 80048; 80053; 80307; 82805; 82962; 84145; 87040; 87077; 87081; 87449; 87637; 92526; 92610; 93005; 94640; 95819; 97110; 97162; 97530; 99223; 99232; 99285; J1650; 36600; 70450; 70551; 80202; 80320; 81003; 81015; 82565; 82607; 82728; 82746; 83036; 83540; 83550; 83605; 83735; 83880; 84100; 84132; 84443; 84484; 85025; 85379; 85610; 85730; 86140; 87070; 87186; 87205; 87899; 93010; 94002; 94003; 94660; 94667; 99233; 99239; 99291; 99292; J0456; J1940; J1953; J2060; J2370; J2405; J2543; J2704; J2930; J3010; J3490; J7512; J7614; J7620; J7633; J7644

== ENCOUNTER 2022-05-25 16:27 | Inpatient (IN) | payer MEDICARE, SELFPAY ==
[2022-05-25 15:40] VITALS: BP 138/79; PULSE 71; RESP 20; TEMP 36.8; O2SAT 96
--- NOTE | 2022-05-25 17:36 | PDOC.CMPRO ---
- If Service Date Differs Date of service: 05/25/22 Time of Service: 17:36 Care Management Progress Note S/O: Deepthi will transition to SWB1 today to work with PT/OT while adjusting to wearing her Trilogy. CM received an approval for 5 days of SWB1, with her last day as 05/29/22. Palliative will see her today, and will follow her outpatient once she is ready for discharge. LAMBERTO met with Елена and discussed the plan of care for her SWB1, and informed her of the 5 day approval, limiting her SWB stay. Her plan will be to return home with increased HH supports on Sunday. Елена did not have any questions or concerns that were unanswered. CM will continue to follow. A: Deepthi is a 61 female admitted to [facility] on 05/10/22 P: Елена is entering SWB 1 for continued strengthening and improved mobility, working with PT/OT. Once she is medically cleared, she will return home with increased HH supports. She will follow up with her PCP and plan of care and transport with family. CM will continue to assess and support identified discharge needs.
--- NOTE | 2022-05-25 17:36 | CM.SWINGPC ---
- If Service Date Differs Date of service: 05/25/22 Time of Service: 17:36 Swingbed Plan of Care Plan of care: SWING BED PROGRAM ACTIVITIES/DISCHARGE PLAN OF CARE ACTIVITIES PLAN Date: 05/25/22 Identified Need: Life enrichment while in SWB 1, working with PT/OT, and adjusting to wearing her Trilogy at night. Intervention/Plan: Cart items, TV with remote, visits with family. Initials KM DISCHARGE PLAN Date: 05/25/22 Identified Need: Continued strengthening and improved mobility while adjusting to wearing her Trilogy at night. Intervention/Plan: Work with PT/OT daily to improve strength, endurance and independence. Initials OLIMPIA
--- NOTE | 2022-05-25 17:38 | CM.SBPSYCH ---
- If Service Date Differs Date of service: 05/25/22 Time of Service: 17:38 SB Psychosocial/Act.Assessment - Hospital Admission Admission Date: 05/10/22 Admission From:: Home Diagnosis:: Hypercarbic repiratory failure - Swing Bed Admission Swing Bed Admit Date:: 05/25/22 Swing Bed Level of Care: Level 1/SNF - Social Supports PREVIOUS FUNCTIONAL STATUS/SOCIAL/FAMILY SUPPORTS:: Елена lives in a single family home with her Osmani and daughter Evonne in [place]. Osmani has 2 other children by a previous marriage. 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 She has COPD and emphysema (per patient) and uses home oxygen at 2L/min. Елена receives no additional community services and is independent with ADLs at baseline. She continues to drive, but rarely, she reported. - Prior to Admission Living Arrangements/Environment Prior to Admission:: Елена lives at home with her , who is supportive. There are four steps to get in the home. Indpendent with ADL's prior to admission. Her cooks and does light housekeeping. Daughter, Evonne, lives nearby and is supportive. 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 - [place]: No Burlington's Spouse: No - Benefits Financial: Social Security, SSI, Other Pension ('s [employer] Pension), Medicare - Restoration Active Restorationist Member:: No - Advance Directives for Healthcare Advance Directives for Healthcare: Advance Directives Advance Directive Agent: Evonne rae - Community Community Supports/Involvement: N/A - Interests TV/Movies:: Watches TV for entertainment - Present Functional Status Physical Abilities:: Mostly sedentary, limited by oxygen requirements Cognitive:: Intact, A/O Communication:: Clear, direct Sensory Systems: Intact Behavior:: Cooperative - Medical History PAST MEDICAL HISTORY/PAST SURGICAL HISTORY:: All Active Problems. Leukocytosis (Acute). Hyperkalemia (Acute). CHF exacerbation (Acute). Acute on chronic respiratory acidosis (Acute). Respiratory failure with hypoxia and hypercapnia (Acute). WENDY (acute kidney injury) (Acute). Elevated troponin I level (Acute). Altered mental status (Acute). Hypercarbia (Acute). Acidemia (Acute). SOB (shortness of breath) (Acute). Hypercarbia (Acute). COPD exacerbation (Acute). Acute and chronic respiratory failure (Acute). Vaginal bleeding (Acute). Hyponatremia (Acute). Pulmonary hypertension (Chronic). Hypoxia (Chronic). (HFpEF) heart failure with preserved ejection fraction (Chronic). Anxiety (Chronic). Dyspnea (Acute). Acute anemia (Acute). Postmenopausal bleeding (Acute). Dyspnea on exertion (Acute). S/P left inguinal hernia repair (Acute). 01/21/19 Dr Odette Cormier, left. Left inguinal hernia (Acute). Incarcerated inguinal hernia, unilateral (Acute). Small bowel obstruction (Acute). Dehydration (Acute). Hypertension (Chronic). Change in mental status (Acute). Cardiomyopathy (Acute). Iron deficiency anemia due to chronic blood loss (Chronic). Chronic bronchitis with COPD (chronic obstructive pulmonary disease) (Acute). Alcohol abuse (Acute). COPD (chronic obstructive pulmonary disease) (Chronic). Medical History. Alcoholic gastritis. Former smoker. Hyponatremia. Mood disorder with psychosis. Neck pain on right side. Palliative care patient. Pneumonia. Post-menopausal bleeding. Pulmonary hypertension. Respiratory failure with hypoxia. Uterine mass. Not candidate for surgery at [facility] or [facility].08/10/21. Had partial uterine artery embolization. Unable to complete /2 hypoxia. Surgical History. EGD - MAC (07/04/16) - Admission Data Reason for Swing Bed Admission:: Strengthen and improve endurance, independence with mobility, while adjusting to wearing new Triology. Discharge Plan:: Home, increased HH supports. Assessment: Елена will remain on SWB1 to continue to work with PT/OT and gain strength and independence with mobility while adjusting to her new trilogy. She will return home after five days (approval from [facility]) with increased HH supports. Quilting Machine Operator: Audrey Abrams Date Assessment was completed:: 05/25/22
[2022-05-25 20:58] VITALS: BP 135/80; PULSE 68; RESP 20; TEMP 36.4; O2SAT 96
[2022-05-25 21:00] VITALS: O2SAT 96
[2022-05-25] MEDS: Magnesium Oxide 400 MG TAB 800 MG PO (21:02)
[2022-05-25] MEDS: Ferrous Sulfate 325 MG TAB PO (21:03)
[2022-05-25] MEDS: Apixaban 5 MG TAB PO (21:03)
[2022-05-25] MEDS: Amiodarone 200 MG TAB 400 MG PO (21:03)
[2022-05-25] MEDS: Ascorbic Acid 500 MG TAB PO (21:03)
[2022-05-25] MEDS: Norethindrone 5 MG TAB 10 MG PO (21:03)
[2022-05-25] MEDS: Protein Nutritional Supplement 16 GM 1 OUNCE PACKET PO (21:04)
[2022-05-25] MEDS: Metoprolol CR 100 MG TABCR 200 MG PO (21:04)
[2022-05-25] MEDS: Melatonin 3 MG TAB 6 MG PO (21:04)
[2022-05-25] MEDS: Gabapentin 100 MG CAP 200 MG PO (21:04)
[2022-05-25] MEDS: Mometasone 220 MCG 14 DOSE INHALER 1 PUFF IH (21:14)
[2022-05-25] MEDS: Normal Saline Flush 10 ML SYR IVP (21:15)
[2022-05-25] MEDS: LORazepam 0.5 MG TAB PO (22:36)
[2022-05-26] VITALS (9 sets, daily range): BP systolic 122–126; BP diastolic 72–77; PULSE 64–74; RESP 1–20; TEMP 36.7–36.8; O2SAT 82–94
[2022-05-26] MEDS: Levalbuterol 1.25 MG/3 ML UPD VIAL UPD ×2 (01:38→17:07)
[2022-05-26] MEDS: Protein Nutritional Supplement 16 GM 1 OUNCE PACKET PO ×2 (08:20→19:29)
[2022-05-26] MEDS: Torsemide 20 MG TAB 10 MG PO (08:20)
[2022-05-26] MEDS: Amiodarone 200 MG TAB 400 MG PO ×2 (08:21→19:26)
[2022-05-26] MEDS: Multivitamin w/Minerals TAB 1 TAB PO (08:21)
[2022-05-26] MEDS: Aspirin 81 MG CHEW PO (08:21)
[2022-05-26] MEDS: Norethindrone 5 MG TAB 10 MG PO ×2 (08:21→19:25)
[2022-05-26] MEDS: FLUoxetine 10 MG TAB PO (08:21)
[2022-05-26] MEDS: Magnesium Oxide 400 MG TAB 800 MG PO ×2 (08:21→19:26)
[2022-05-26] MEDS: Pantoprazole 40 MG TABCR PO (08:22)
[2022-05-26] MEDS: Apixaban 5 MG TAB PO ×2 (08:22→19:27)
[2022-05-26] MEDS: Ascorbic Acid 500 MG TAB PO ×2 (08:22→19:27)
[2022-05-26] MEDS: Spironolactone 25 MG TAB PO (08:22)
[2022-05-26] MEDS: Ferrous Sulfate 325 MG TAB PO ×2 (08:22→19:27)
[2022-05-26] MEDS: Acetaminophen 325 MG TAB 650 MG PO (08:27)
--- NOTE | 2022-05-26 09:01 | PT.INIE ---
Date of service: 05/26/22 Time of Service: 09:01 PT Notes Visit Reasons: Chronic Respiratory Physical Therapy Swing Bed Level I Initial Evaluation Date: 05/26/2022 Referring Doctor: Ashish Meneses MD PT Orders: PT CONSULT: Limited ability Precautions: Fall. Standard. Activity as tolerated. Patient Profile/Admitting Diagnosis:? Sukhwindern converted to swing bed level I of care for continued rehabilitattion in antcipation of discharge to home when medically ready. Deepthi is a 61-year-old female with diagnoses of acute and chronic respiratory failure, central line infection, PAF with RVR, ischemia L foot, COPD exacerbation, elevated troponin level, HFpEF heart failure with preserved ejection fraction, anemia, acute kidney injury, and seizure. PMHX: All Active Problems?(Updated 05/10/22 @ 15:59 by Chelsey Marrero MD) Leukocytosis (Acute) Hyperkalemia (Acute) CHF exacerbation (Acute) Acute on chronic respiratory acidosis (Acute) Respiratory failure with hypoxia and hypercapnia (Acute) WENDY (acute kidney injury) (Acute) Elevated troponin I level (Acute) Altered mental status (Acute) Hypercarbia (Acute) Acidemia (Acute) SOB (shortness of breath) (Acute) Hypercarbia (Acute) COPD exacerbation (Acute) Acute and chronic respiratory failure (Acute) Vaginal bleeding (Acute) Hyponatremia (Acute) Pulmonary hypertension (Chronic) Hypoxia (Chronic) (HFpEF) heart failure with preserved ejection fraction (Chronic) Anxiety (Chronic) Dyspnea (Acute) Acute anemia (Acute) Postmenopausal bleeding (Acute) Dyspnea on exertion (Acute) S/P left inguinal hernia repair (Acute) 01/21/19 Dr Odette Cormier, leftLeft inguinal hernia (Acute) Incarcerated inguinal hernia, unilateral (Acute) Small bowel obstruction (Acute) Dehydration (Acute) Hypertension (Chronic) Change in mental status (Acute) Cardiomyopathy (Acute) Iron deficiency anemia due to chronic blood loss (Chronic) Chronic bronchitis with COPD (chronic obstructive pulmonary disease) (Acute) Alcohol abuse (Acute) COPD (chronic obstructive pulmonary disease) (Chronic) Medical History? Alcoholic gastritis Former smoker Hyponatremia Mood disorder with psychosis Neck pain on right side Palliative care patient Pneumonia Post-menopausal bleeding Pulmonary hypertension Respiratory failure with hypoxia Uterine mass Not candidate for surgery at [facility] or [facility].08/10/21. Had partial uterine artery embolization. Unable to complete 2/2 hypoxia. Surgical History? EGD - MAC (07/04/16) Social History/Home Situation: Lives with in a private home with 4 steps to enter with rails on both sides.? Independent with mobility ADLs prior to admission.? cooks meals while she does laundry.? Still drives.? Equipment Owned/DME: BSC, FWW, SPC,? shower seat Subjective: Reports shortness of breath with the smallest of activity.? Needs frequent rests.? Denies pain in B lower extremities. Agreeable to goals for PT for the next 5 days of swing bed level care. Objective: General Observation: Seated onchair.? On 4l of oxygen supp via NC.? Telemetry monitoring in place.? Blanchard catheter in place. Mental Status: Alert and oriented as to person, place, time, and purpose. Able to pay attention, focus, and respond appropriately. Pain: Denies Vital Signs: Oxygen saturation lowest at 87% after ambulation activity but re-saturated back to 91% after about 1 minute of seated rest. ROM: Right Upper Extremity: ? Shoulder Flexion WFL. Shoulder abduction WFL. Elbow flexion WFL. Wrist flexion WFL. Functional opening and closing of hand WFL. Left Upper Extremity:? Shoulder Flexion WFL. Shoulder abduction WFL. Elbow flexion WFL. Wrist flexion WFL. Functional opening and closing of hand WFL. Right Lower Extremity: Hip flexion lacks the last 25% of AROM. Hip abduction WFL. Knee flexion WFL. Ankle dorsiflexion to neutral only. Ankle plantarflexion WFL. Left Lower Extremity: Hip flexion lacks the last 25% of AROM. Hip abduction WFL. Knee flexion WFL. Ankle dorsiflexion to neutral only. Ankle plantarflexion WFL. Strength: Right Upper Extremity: Shoulder flexors 4-/5. Shoulder abductors 4-/5. Elbow flexors 4-/5. Elbow extensors 4-/5. Sliver Cutter strong. Left Upper Extremity: Shoulder flexors 4-/5. Shoulder abductors 4-/5. Elbow flexors 4-/5. Elbow extensors 4-/5. Sliver Cutter strong. Right Lower Extremity: Hip flexors 3-/5. Hip abductors 4-/5. Knee flexors 4-/5. Knee extensors 4-/5. Ankle dorsiflexors 3-/5. Ankle plantarflexors 3-/5. Left Lower Extremity: Hip flexors 3-/5. Hip abductors 4-/5. Knee flexors 4-/5. Knee extensors 4-/5. Ankle dorsiflexors 3-/5. Ankle plantarflexors 3-/5. Bed Mobility/Transfers:? (NAYANA Vallejo helped out for line management and safety) Sit to stand minimal assist stand by assist Stand to sit stand by assist Bed to bedside commode stand by assist Bedside commode to bedside chair stand by assist Gait: Instructed patient with level surface ambulation of 20 small steps.? Migdalia decreased. Step height decreased. Step length decreased.? Moderate shortness of breath that subsided with activity.? Reports increased weakness in B LE that resolved with rest. O2 sat low of 87% on 4L but re-saturated back to 91% after about 1 minute of seated rest. Balance: Static Sitting: Good Dynamic Sitting: Normal Static Standing: Fair Dynamic Standing: Fair Special Tests: Mobility Limitations Standardized Measure [facility] 6 clicks Basic Mobility Inpatient Short Form: Raw Score: 23? CMS Score: 11% deficit? ? ? Informed Consent/Education: Patient was instructed in purpose of PT consult and plan of care. Agreeable to proceed with established PT POC to achieve personal goals. Assessment: Activity tolerance slowly improving. Saturastion level low of 87% on $ L of oxygen per minute after ambulation activity with recovery back to 91% after 1 minute of seated rest. Patient converted to swing bed level I on 06/04/2022 and is re-evaluated today for continued rehabilitation to [facility] functional mobiluty outcomes. Deepthi is a 61-year-old female with diagnoses of acute and chronic respiratory failure, central line infection, PAF with RVR, ischemia L foot, COPD exacerbation, elevated troponin level, HFpEF heart failure with preserved ejection fraction, anemia, acute kidney injury, and seizure.? Low endurance, needs frequent rests.? Remains on high flow oxygen supplementation.? Patient presents with clinical signs and symptoms consistent with current/admitting diagnoses that have resulted to mobility limitations, gait instability, generalized weakness, and overall ADL decline as demonstrated by the following impairment level findings: 1.? Decreased strength to B LE major muscle groups 2.? Impaired sitting/standing balance 3.? Impaired activity tolerance 4.? Shortness of breath 5.? Swelling Impairments are contributing to the following functional limitations: 1.? Decline in bed mobility skills 2.? Decline in transfer skills 3.? Difficulty with ambulation without assistive device and physical assistance 4.? Increased completion time for mobility ADL performance 5.? Increased risk for falls 6.? Difficulty with managing steps alone safely 7.? On high flow rate oxygen supp Patient is assessed as a 64564 moderate complexity based on the following: History: 61-year-old female with past medical history as indicated above Examination: Demonstrable impairment in strength, balance, and mobility level with underlying impairments and functional limitations as exhibited above as well as deficit score of 73% utilizing the [facility] Mobility Inpatient Short Form Presentation: Evolving Decision Makin moderate complexity Goals: Goals X1 week 1. Supine-Sit independent 2. Sit-Supine independent 3. Sit-Stand independent 4. Stand-Sit independent with FWW 5. Bed-Chair independent with FWW 6. Chair-Bed independent with FWW 7. Supervision gait on level surface with use of FWW for at least 30 feet without report of pain nor dyspnea 8. Supervision stair negotiation while holding onto B rails for at least 4 steps without report of pain nor dyspnea 10. Good static and dynamic standing balance/tolerance Plan of Care/Treatment Plan: 1-2x/day, 7 days/week x 1 week. Plan of care has been reviewed with the OCCUPATIONAL THERAPY ASSISTANT providing the service under Physical Therapy direction. Initiate Physical Therapy intervention for pain management as needed, strengthening, bed mobility, transfers, gait, stairs, balance training, and use of assistive device. DISCHARGE RECOMMENDATIONS: [] ? Home with no services [] [] ? Home with services [specify] [] ? Home with outpatient PT [] [] ? SNF for continued rehabilitation [] [] ? Processing Spec Care [] [] ? SNF versus LTC based on ability to participate and progress [] [X] ? SNF vs HH PT depending on progress towards goals TREATMENT CODE/TIME: 57899 x 26 minutes beginning at 9:01 AM. Thank you for the opportunity to participate in the care of this patient. Marie Murillo PT, DPT, CLT [facility], [place]
[2022-05-26] MEDS: Tiotropium/Olodaterol 10 PUFF INHALER 2 PUFF IH (09:03)
[2022-05-26] MEDS: Mometasone 220 MCG 14 DOSE INHALER 1 PUFF IH ×2 (09:03→19:28)
--- NOTE | 2022-05-26 15:22 | PT.INTREAT ---
Date of service: 05/26/22 Time of Service: 12:48 PT Notes Visit Reasons: Chronic Respiratory Inpatient Physical Therapy Treatment Note [facility] Date: 05/26/2022 PRECAUTIONS: Activity as tolerated SUBJECTIVE: Елена is pleasant and agreeable to participating in PT. She reports that she is feeling a little better today because she slept well overnight. OBJECTIVE: PAIN: No c/o pain BED MOBILITY/TRANSFERS Sit-supine: I Supine-sit: I Sit-stand: SBA Stand-sit: SBA GAIT Assistive Device: FWW Weight bearing: Full Assist: SBA Distance: 30' x2 Deviation: Seated rest, significant SOB, increased fatigue, 3L O2 THEREX: Patient was instructed in a LE strengthening program, completed in a supine position, to include: ankle pumps, quad sets, glute sets, heel slides and hip abduction. ASSESSMENT: Patient tolerated session with complaint of increased global fatigue and SOB with all activity. She continues to demonstrate limited activity tolerance, although was able to tolerate a progression in gait distance with FWW support and SBA. PLAN: Continue with global strengthening and gait training for improved activity tolerance. TREATMENT CODE/TIME: 23 minutes; [id number], [id number] (12:48)
--- NOTE | 2022-05-26 17:10 | NUR.NOTE ---
patient refused trilogy all day despite many efforts by nursing staff. Patients O2 has dropped into the mid 80's multiple times and with encouragement for effective breathing through the nasal cannula O2 would rise to low 90's. This nurse has explained multiple times how important the trilogy is to wear while sleeping and napping. Patient continues to decline the use of the machine. Will continue to monitor and offer breathing treatments and educate on the importance of using the trilogy. :
[2022-05-26] MEDS: Ipratropium 0.5 MG/2.5 ML UPD VIAL UPD (19:29)
[2022-05-26] MEDS: Melatonin 3 MG TAB 6 MG PO (21:19)
[2022-05-26] MEDS: Metoprolol CR 100 MG TABCR 200 MG PO (21:19)
[2022-05-27] VITALS (14 sets, daily range): BP systolic 110–152; BP diastolic 61–86; PULSE 72–90; RESP 1–22; TEMP 36.1–36.8; O2SAT 75–94
--- NOTE | 2022-05-27 | DI.RAD_ITS ---
Exam(s) XR PORTABLE CHEST AP EXAM: XR PORTABLE CHEST AP CLINICAL HISTORY: worsening hypoxia. TECHNIQUE: 2D digital imaging was performed. COMPARISON: CR XR PORTABLE CHEST AP from 05/15/2022 FINDINGS: Single AP portable view. The patient has been extubated Heart size is upper normal. The mediastinum is not widened. There are interstitial and patchy infiltrates bilaterally, more prominent on the right side. No obvi ous pleural effusions. IMPRESSION: Bilateral infiltrates interstitial and patchy more so on the right side. No pleural effusions. No K erley B lines. Appears somewhat worse than on the 05/15/2022 study. However, at that time patient w as intubated and there was positive pressure which can make the lungs look better than the actually a re. DATA REPOSITORY: RADIATION DOSE DELIVERED:
[2022-05-27] MEDS: Levalbuterol 1.25 MG/3 ML UPD VIAL UPD ×4 (00:18→18:18)
[2022-05-27] MEDS: LORazepam 0.5 MG TAB PO ×3 (00:18→23:45)
[2022-05-27] MEDS: Ipratropium 0.5 MG/2.5 ML UPD VIAL UPD ×5 (05:27→18:19)
[2022-05-27] MEDS: Tiotropium/Olodaterol 10 PUFF INHALER 2 PUFF IH (08:31)
[2022-05-27] MEDS: Mometasone 220 MCG 14 DOSE INHALER 1 PUFF IH ×2 (08:32→19:41)
[2022-05-27] MEDS: Torsemide 20 MG TAB 10 MG PO (09:56)
[2022-05-27] MEDS: Protein Nutritional Supplement 16 GM 1 OUNCE PACKET PO ×2 (09:56→19:40)
[2022-05-27] MEDS: Norethindrone 5 MG TAB 10 MG PO ×2 (09:57→19:41)
[2022-05-27] MEDS: Spironolactone 25 MG TAB PO (09:57)
[2022-05-27] MEDS: Magnesium Oxide 400 MG TAB 800 MG PO ×2 (09:57→19:42)
[2022-05-27] MEDS: Ferrous Sulfate 325 MG TAB PO ×2 (09:57→19:42)
[2022-05-27] MEDS: Apixaban 5 MG TAB PO ×2 (09:57→19:42)
[2022-05-27] MEDS: Amiodarone 200 MG TAB PO ×2 (09:57→19:42)
[2022-05-27] MEDS: FLUoxetine 10 MG TAB PO (09:57)
[2022-05-27] MEDS: Aspirin 81 MG CHEW PO (09:57)
[2022-05-27] MEDS: Multivitamin w/Minerals TAB 1 TAB PO (09:57)
[2022-05-27] MEDS: Ascorbic Acid 500 MG TAB PO ×2 (09:58→19:42)
[2022-05-27] MEDS: Pantoprazole 40 MG TABCR PO (09:58)
--- NOTE | 2022-05-27 11:02 | PT.INTREAT ---
Date of service: 05/27/22 Time of Service: 09:15 PT Notes Visit Reasons: Chronic Respiratory Inpatient Physical Therapy Treatment Note [facility] Date: 05/27/2022 PRECAUTIONS: Activity as tolerated SUBJECTIVE: Doing okay, but has not been able to keep her O2 stats up today. Discussed this with Nurse Osman and he was concerned her oxygen meter was not working correctly. OBJECTIVE: ? PAIN: No c/o pain ? BED MOBILITY/TRANSFERS? Sit-supine: I Supine-sit: I Sit-stand: SBA? Stand-sit: SBA ? GAIT? Assistive Device: FWW ? Weight bearing: Full Assist: SBA ? Distance: 45ft and 25ft Deviation: Seated rest, significant SOB, increased fatigue, 4L O2 supplement with O2 readings starting at 91% at rest dropping to 84% THEREX: Patient was instructed in a LE strengthening program, completed in a supine position, to include: ankle pumps, quad sets, glute sets, heel slides and hip abduction x 10 reps each. ASSESSMENT:? Patient tolerated session with complaint of increased global fatigue and SOB with all activity.? She continues to demonstrate limited activity tolerance. PLAN: Continue with global strengthening and gait training for improved activity tolerance. TREATMENT CODE/TIME:
--- NOTE | 2022-05-27 15:10 | DI.VRAD_ITS ---
PROCEDURE INFORMATION: Exam: XR Chest Exam date and time: 05/27/2022 2:30 PM Age: 61 years old Clinical indication: Other: Worsening hypoxia TECHNIQUE: Imaging protocol: Radiologic exam of the chest. Views: 1 view. Other technique: Portable exam. COMPARISON: CR XR PORTABLE CHEST AP 05/15/2022 8:26 AM FINDINGS: Lungs: Right mid lung atelectasis. There is some minimal coarse interstitial increased markings at both lung bases and right upper lobe. Pleural spaces: Unremarkable. No pleural effusion. No pneumothorax. Heart/Mediastinum: Heart size upper limits of normal. Vasculature: Mild aortic ectasia. Bones/joints: Unremarkable. IMPRESSION: Right mid lung atelectasis. Possible congestive heart failure versus infectious process, likely viral. Dictated and Authenticated by: Lizeth Bartlett MD. Ordering:LON Sanchez MD
[2022-05-27] MEDS: Metoprolol CR 100 MG TABCR 200 MG PO (21:15)
[2022-05-27] MEDS: Melatonin 3 MG TAB 6 MG PO (21:15)
[2022-05-28] VITALS (11 sets, daily range): BP systolic 150–170; BP diastolic 75–86; PULSE 70–80; RESP 4–40; TEMP 36.4–36.8; O2SAT 77–94
[2022-05-28] MEDS: LORazepam 1 MG TAB PO (00:29)
[2022-05-28] MEDS: Ipratropium 0.5 MG/2.5 ML UPD VIAL UPD ×3 (00:53→06:49)
[2022-05-28] MEDS: Levalbuterol 1.25 MG/3 ML UPD VIAL UPD ×3 (00:53→06:50)
[2022-05-28 02:08] LABS: BE (Venous) 13 mmol/L (-2-3); HCO3 (Venous) 39 mmol/L (23-28); pH (Venous) 7.32 (7.31-7.41); pO2 (Venous) 173 mmHg
[2022-05-28 02:09] LABS: O2 Sat (Venous) > 99 %
[2022-05-28 02:12] LABS: pCO2 (Venous) 78 mmHg (41-51)
--- NOTE | 2022-05-28 02:43 | DI.RAD_ITS ---
Exam(s) XR PORTABLE CHEST AP EXAM: XR PORTABLE CHEST AP CLINICAL HISTORY: dyspnea. TECHNIQUE: 2D digital imaging was performed. COMPARISON: CR XR PORTABLE CHEST AP from 05/15/2022 CR,XR XR PORTABLE CHEST AP from 05/27/2022 FINDINGS: Single AP portable view. Heart size unchanged. Mediastinum not widened. There is no improvement in the appearance of the lung camejo. Bilateral interstitial disease again n oted as well as some confluent infiltrate in the lateral right lung, unchanged from yesterday. This infiltrate was not evident on 05/15/2022. IMPRESSION: Persistent bilateral interstitial pattern and confluent lateral right lung infiltrate. DATA REPOSITORY: RADIATION DOSE DELIVERED:
--- NOTE | 2022-05-28 02:59 | DI.VRAD_ITS ---
PROCEDURE INFORMATION: Exam: XR Chest Exam date and time: 05/28/2022 2:19 AM Age: 61 years old Clinical indication: Dyspnea TECHNIQUE: Imaging protocol: Radiologic exam of the chest. Views: 1 view. COMPARISON: XR PORTABLE CHEST AP 05/27/2022 2:30 PM FINDINGS: Lungs: Lung volumes are low. Right midlung opacity is noted. Interstitial markings are prominent. Pleural spaces: No pleural effusion. No pneumothorax. Heart/Mediastinum: Mild cardiomegaly. Bones/joints: Thoracolumbar scoliosis. IMPRESSION: Moderate pulmonary infiltrates and edema. Mild right lung consolidation/consolidation. No significant change. Dictated and Authenticated by: Luiz Lugo MD. Ordering:SHY Dash MD
[2022-05-28 03:28] LABS: Lactate 0.6 mmol/L (0.6-1.4)
[2022-05-28 03:29] LABS: Absolute Lymphocyte Count 0.33 10^3/uL (1.2-3.4); Absolute Monocyte Count 0.81 10^3/uL (0.1-0.8); Absolute Neutrophil Count 11.85 10^3/uL (1.2-6.7); Basophils % 0.5; HCT 35.9 % (36.0-46.0); HGB 9.9 g/dL (11.2-15.7); Immature Grans % 1.5; Lymphocytes % 2.5; MCH 25.4 pg (27.0-33.0); MCHC 27.6 % (32.0-36.0); MCV 92 fL (80-95); MPV 9.8 fL (8.0-11.0); Monocytes % 6.1; Neutrophils % 89.4; Nucleated RBC 0.5 % (0.0-0.3); Platelet Count 190 10^3/uL (130-400); RBC 3.89 10^6/uL (3.93-5.22); RDW 19.5 % (11.7-14.6); RDW-SD 62.1 fL; WBC 13.25 10^3/uL (4.4-10.8)
[2022-05-28 03:30] LABS: Absolute Basophil Count 0.07 10^3/uL (0.0-0.2)
[2022-05-28 03:43] LABS: NT-proBNP 6425 pg/mL (<300)
[2022-05-28 03:46] LABS: Anisocytosis 1+; Hypochromasia 1+
[2022-05-28 03:47] LABS: Anion Gap -0.1 mmol/L (3-11); BUN 23 mg/dL (7-18); CO2 39.1 mmol/L (21.0-32.0); CREATININE 0.9 mg/dL (0.55-1.02); Calcium 9.3 mg/dL (8.5-10.1); Chloride 93 mmol/L (98-107); Estimated GFR 71.83 (mL/min/1.73m2); Glucose 134 mg/dL (74-106); Magnesium 2.4 mg/dL (1.8-2.4); Potassium 5.5 mmol/L (3.5-5.1); Sodium 132 mmol/L (136-145); Troponin I < 50 ng/L (<or=60)
[2022-05-28] MEDS: methylPREDNISolone SUCC 125 MG VIAL IVP (04:00)
[2022-05-28 04:02] LABS: Procalcitonin < 0.1 ng/mL
[2022-05-28] MEDS: Normal Saline Flush 10 ML SYR IVP ×2 (04:02→07:53)
[2022-05-28 04:09] LABS: D-Dimer 734 ng/mlFEU (<500)
--- NOTE | 2022-05-28 05:49 | PGE_ITS ---
Date of Service Date of service: 05/28/22 Time of Service: 05:49 Assessment and Plan Assessment and plan (1) Acute and chronic respiratory failure: Status: Acute Assessment and plan: I reviewed her chest x-ray which shows some right middle lobe infiltrate which is a bit worse than previous study. Her white blood cell count is 13,000. Procalcitonin negative. Venous gases show a slightly low ph and a PCO2 of 78. This will be repeated. Blood cultures have been obtained. She has been given a dose of Solu-Medrol of 125 mg. Initially she was not having much wheezing but after the BiPAP was reinstituted she is having some wheezing. She was given another dose of levalbuterol.I will give her a loading dose of piperazillin- tazobactam and levofloxacin . Subjective Subjective Interval history since last seen: I was called to see this patient because of increased difficulty breathing. She was taking off the oxygen mask frequently. Oxygen saturations into the 70s. Staff could not get Trilogy to the operate effectively. She was switched to a nonrebreather mask. She cannot provide much history at the present time. Her other vital signs have remained stable except her pulse oximetry. Exam Neck Neck: normal visual inspection, no lymphadenopathy and no JVD Resp Auscultation: no rales and wheezes Cardio Rate: regular rate Rhythm: regular rhythm Heart Sounds: S1 normal, S2 normal, no gallops and no murmurs GI Inspection: distended Palpation: no hepatosplenomegaly and nontender Extrem Other: +1 edema both legs. Objective Last Vital Signs Temp 36.8 C 05/28/22 02:23 Pulse 74 05/28/22 04:11 Resp 38 H 05/28/22 04:11 BP 150/75 H 05/28/22 02:23 Pulse Ox 92 05/28/22 04:11 Laboratory Results - last 24 hr 05/28/22 05/28/22 05/28/22 02:02 02:02 02:02 WBC RBC Hgb Hct MCV MCH MCHC RDW Plt Count MPV Immature Gran % Neutrophils % Lymphocytes % Monocytes % Eosinophils % Basophils % Nucleated RBC % Absolute Neutrophils Absolute Lymphocytes Absolute Monocytes Absolute Eosinophils Absolute Basophils Hypochromasia Anisocytosis D-Dimer VBG pH 7.32 VBG pCO2 78 H* VBG pO2 173 VBG HCO3 39 H VBG O2 Saturation > 99 VBG Base Excess 13 H VBG Lactate Sodium 132 L Potassium 5.5 H Chloride 93 L Carbon Dioxide 39.1 H Anion Gap -0.1 L BUN 23 H Creatinine 0.9 Est GFR (CKD-EPI 2020) 71.83 Glucose 134 H Calcium 9.3 Magnesium 2.4 Troponin I < 50 NT-Pro-B Natriuret Pep 6425 H Procalcitonin 05/28/22 05/28/22 05/28/22 02:02 03:20 03:20 WBC 13.25 H RBC 3.89 L Hgb 9.9 L Hct 35.9 L MCV 92 MCH 25.4 L MCHC 27.6 L RDW 19.5 H Plt Count 190 MPV 9.8 Immature Gran % 1.5 Neutrophils % 89.4 Lymphocytes % 2.5 Monocytes % 6.1 Eosinophils % 0.0 Basophils % 0.5 Nucleated RBC % 0.5 H Absolute Neutrophils 11.85 H Absolute Lymphocytes 0.33 L Absolute Monocytes 0.81 H Absolute Eosinophils 0.00 Absolute Basophils 0.07 Hypochromasia 1+ Anisocytosis 1+ D-Dimer 734 H VBG pH VBG pCO2 VBG pO2 VBG HCO3 VBG O2 Saturation VBG Base Excess VBG Lactate 0.6 Sodium Potassium Chloride Carbon Dioxide Anion Gap BUN Creatinine Est GFR (CKD-EPI 2020) Glucose Calcium Magnesium Troponin I NT-Pro-B Natriuret Pep Procalcitonin < 0.1
[2022-05-28 07:07] LABS: BE (Venous) 12 mmol/L (-2-3); HCO3 (Venous) 39 mmol/L (23-28); O2 Sat (Venous) 98 %; TCO2 (Venous) 36 mmol/L (24-29); pH (Venous) 7.28 (7.31-7.41); pO2 (Venous) 114 mmHg
[2022-05-28 07:09] LABS: pCO2 (Venous) 83 mmHg (41-51)
[2022-05-28] MEDS: Furosemide 40 MG/4 ML VIAL IVP (07:30)
[2022-05-28] MEDS: PIPERACILLIN/TAZO 4.5 GM in Normal Saline 100 ML IVPB (07:52)
--- NOTE | 2022-05-28 08:13 | DSE_ITS ---
Date of service: 05/28/22 Time of Service: 08:49 DS: Diagnosis Discharge Diagnosis (1) Respiratory failure with hypoxia and hypercapnia: Status: Acute (2) Acute and chronic respiratory failure: Status: Acute (3) (HFpEF) heart failure with preserved ejection fraction: Status: Chronic (4) Pulmonary hypertension: Status: Chronic (5) COPD (chronic obstructive pulmonary disease): Status: Chronic (6) Respiratory acidosis: Status: Acute (7) Toxic metabolic encephalopathy: Status: Acute (8) Carotid artery occlusion: Status: Acute (9) Peripheral arterial occlusive disease: Status: Chronic (10) Anemia: Status: Chronic (11) Ischemia of foot: Status: Acute (12) PAF (paroxysmal atrial fibrillation): Status: Acute (13) Anxiety: Status: Chronic (14) Leucocytosis: Status: Acute Discharge Plan Disposition Patient Disposition: [facility] INPATIENT Condition: Critical Discharge Details Reason For Visit: Chronic Respiratory Admit Date/Time: 05/25/22 15:38 Admit Provider: Ashish Meneses Attending Provider: Ashish Meneses Primary Care Provider: [facility] Hospital Course: Ms Hernandez is a 61 year old female with PMHx of chronic hypoxic hypercapnic respiratory failure due to COPD, HFpEF, hypertension, paroxysmal SVT, who was admitted into swing bed level 1 status on 05/25/22 after a lengthy admission for acute on chronic hypoxic hypercapnic repsiratory failure requiring intubation, CHF exacerbation, rapid Afib requiring initiation of amiodarone therapy, bacteremia/sepsis, concern for seizure, carotid stenosis, ischemia of her left foot with underlying BLE PAD. While in swing bed status, the patient had been noncompliant with her new trilogy device. On the evening of 05/27/22, the patient was noted to be cyanotic and progressively more and more hypoxic and somnolent with difficulty getting her back to adequate O2 sats despite increasing oxygen requirement. Because the patient was apparently saturating 70% on trilogy last night, she was placed back on BiPAP. Her imaging is consistent with pulmonary edema and mid right lunc consolidation. Her VBG demonstrates a pH of 7.28 with pCO2 of 83. She is requiring FiO2 of 70%. Her BiPAP settings were just changed from 15/5 to 20/5 and 40 mg of IV furosemide were given with some UOP already in the matamoros catheter. She is arousable to voice now, which she was not earlier today. She was started on zosyn empirically for PNA, though her procalcitonin is negative. Of note, the patient has been recently evaluated by palliative care where she chose to remain full code. Family updated and agrees with plan. Total Critical Care Time 90 minutes. Home Meds and New Rx's Prescriptions: No Action multivitamin Tablet 1 tab PO DAILY Label Comments: take 1 tablet by mouth once daily norethindrone acetate 5 mg tablet 10 mg PO BID Qty: 240 5RF Stiolto Respimat 2.5-2.5 mcg/actuation Mist 2 puff INHALATION DAILY lorazepam 0.5 mg tablet 0.5 mg PO BID PRN PRN Label Comments: TAKE 1 TABLET BY MOUTH EVERY DAY NEEDED FOR PANIC nystatin [Nystop] 100,000 unit/gram powder 1 applic TOPICAL DIRECTED Label Comments: APPLY A SMALL AMOUNT TO AFFECTED AREA 2-3 TIMES A DAY UNTIL HEALED Rx Instructions: APPLY A SMALL AMOUNT TO SKIN 2-3 TIMES PER DAY UNTIL HEALED fluticasone propionate [Flovent HFA] 220 mcg/actuation HFA aerosol inhaler 1 puff INHALATION BID Label Comments: INHALE 1 PUFF BY MOUTH TWICE DAILY WITH STIOLTO ipratropium bromide 0.02 % Solution 0.25 mg UPD BID Qty: 60 0RF levalbuterol tartrate 45 mcg/actuation Hfa Aerosol Inhaler 2 puff inhalation Q4H PRN PRNQty: 15 0RF levalbuterol HCl 1.25 mg/3 mL Solution For Nebulization 1.25 mg UPD BID Qty: 60 0RF metoprolol succinate 100 mg Tablet Extended Release 24 Hr 200 mg PO HS Qty: 60 0RF nicotine 21 mg/24 hr Patch 24 Hour 1 patch TRANSDERMAL Q24H PRN morphine 10 mg/5 mL Solution 5 - 10 mg fluoxetine 20 mg Capsule 10 mg PO DAILY acetaminophen 325 mg Tablet 650 mg PO PRN PRN lisinopril 20 mg tablet 20 mg PO DAILY Label Comments: TAKE ONE TABLET BY MOUTH EVERY DAY spironolactone 50 mg Tablet 50 mg PO 1XD furosemide 80 mg tablet 1 tab BID Label Comments: Take 1 tablet by mouth twice a day direct care provider and noon ipratropium-albuterol 0.5 mg-3 mg(2.5 mg base)/3 mL solution for nebulization 3 ml INHALATION BID PRN Label Comments: Inhale 3 ml as directed twice a day as needed risperidone 0.25 mg tablet 1 tab PO HS Label Comments: Take 1 tablet by mouth at bedtime pregabalin 25 mg capsule 1 - 2 cap PO BID Label Comments: Take 1-2 capsule by mouth twice a day magnesium oxide 400 mg (241.3 mg magnesium) Tablet 400 mg PO HS Qty: 0 0RF prednisone 20 mg Tablet 40 mg PO DAILY Qty: 6 0RF ferrous sulfate 325 mg (65 mg iron) tablet 1 tab PO DAILY Label Comments: Take 1 tablet by mouth once a day Discharge Instructions Activity:: bedrest, turn q2h Equipment/Supplies:: No Equipment Needed Diet:: NPO Discharge Orders Discharge Orders: Discharge Order (Routine); Ordered 05/28/22 Ordered By: Laura Mars Discharge Data Discharge Date/Time-TO BE ENTERED AT DEPARTURE: 05/28/22 08:00 DS: Summary Time Spent with Patient providing and/or coordinating discharge services: Greater than 30 minutes Status at Discharge Functional status at discharge: bed bound Overall status at discharge: patient is not back to baseline Mental Status: other (obtunded, wakes up to painful and verbal stimuli) Speech and Movement: other Mood: other (obtunded, wakes up to painful and verbal stimuli) Affect: other Exam Narrative Exam Narrative: General: Obese female, initially not arousable to verbal stimuli - only to painful; on reevaluation, arousable to verbal stimuli, on BiPAP, not cyanotic HEENT: EOMI, MMM Heart: RRR Lungs: rales and rhonchi B; sounds wet Abdomen: soft, nontender, nondistended : has a matamoros Extremities: no edema BLEs Psych Mental Status: other (obtunded, wakes up to painful and verbal stimuli) Speech and Movement: other Mood: other (obtunded, wakes up to painful and verbal stimuli) Affect: other DS: Data Vitals/I&O Vitals and I&O: Vital Signs Temperature 36.4 C L 05/28/22 06:48 Temperature Source Tympanic 05/28/22 06:48 Pulse 80 05/28/22 06:50 Pulse Rhythm Irregular 05/28/22 05:28 Respiratory Rate 40 H 05/28/22 06:50 Respiratory Effort Labored 05/28/22 05:28 Respiratory Depth Shallow 05/28/22 05:28 Respiratory Pattern Tachypnea 05/28/22 05:28 Blood Pressure 170/86 H 05/28/22 06:48 Pulse Oximetry 80 L 05/28/22 06:50 Oxygen Delivery Method Bi-pap 05/28/22 06:50 Oxygen Flow Rate 5 05/28/22 02:23 Fraction of Inspired Oxygen (FIO2) 80 05/28/22 06:50 Pain Level 5 05/26/22 08:27 Comment 05/28/22 01:40 Intake & Output 05/27/22 05/27/22 05/28/22 11:59 23:59 11:59 Output Total 400 / 600 200 / 600 Balance -400 / -600 -200 / -600 Output: Urine 400 / 600 200 / 600 Other: Urine Color Yellow Light Merle Urine Appearance Clear Clear Clear Urine Odor Normal Normal Voiding Methods Bedside Commode Bedside Commode Data Completed and Pending Completed studies during hospitalization [Text1]: CXR #1 05/27/22: Bilateral infiltrates interstitial and patchy more so on the right side.? No pleural effusions.? No Topher B lines.? Appears somewhat worse than on the 05/15/2022 study.? However, at that time patient was intubated and there was positive pressure which can make the lungs look better than the actually are. CXR #2 05/27/22: Moderate pulmonary infiltrates and edema. Mild right lung consolidation/consolidation. No significant change. Labs on day of discharge: Labs from last 24 hours 05/28/22 05/28/22 05/28/22 09:00 07:36 07:36 WBC RBC Hgb Hct MCV MCH MCHC RDW Plt Count MPV Immature Gran % Neutrophils % Lymphocytes % Monocytes % Eosinophils % Basophils % Nucleated RBC % Absolute Neutrophils Absolute Lymphocytes Absolute Monocytes Absolute Eosinophils Absolute Basophils Hypochromasia Anisocytosis D-Dimer VBG pH VBG pCO2 VBG pO2 VBG HCO3 VBG Total CO2 VBG O2 Saturation VBG Base Excess VBG Lactate Sodium Cancelled Pending Potassium Cancelled Pending Chloride Cancelled Pending Carbon Dioxide Cancelled Pending Anion Gap Cancelled Pending BUN Cancelled Pending Creatinine Cancelled Pending Est GFR (CKD-EPI 2020) Cancelled Pending Glucose Cancelled Pending Calcium Cancelled Pending Magnesium Pending Ammonia Pending Troponin I Pending NT-Pro-B Natriuret Pep Procalcitonin 05/28/22 05/28/22 05/28/22 06:40 03:20 03:20 WBC 13.25 H RBC 3.89 L Hgb 9.9 L Hct 35.9 L MCV 92 MCH 25.4 L MCHC 27.6 L RDW 19.5 H Plt Count 190 MPV 9.8 Immature Gran % 1.5 Neutrophils % 89.4 Lymphocytes % 2.5 Monocytes % 6.1 Eosinophils % 0.0 Basophils % 0.5 Nucleated RBC % 0.5 H Absolute Neutrophils 11.85 H Absolute Lymphocytes 0.33 L Absolute Monocytes 0.81 H Absolute Eosinophils 0.00 Absolute Basophils 0.07 Hypochromasia 1+ Anisocytosis 1+ D-Dimer 734 H VBG pH 7.28 L VBG pCO2 83 H* VBG pO2 114 VBG HCO3 39 H VBG Total CO2 36 H VBG O2 Saturation 98 VBG Base Excess 12 H VBG Lactate Sodium Potassium Chloride Carbon Dioxide Anion Gap BUN Creatinine Est GFR (CKD-EPI 2020) Glucose Calcium Magnesium Ammonia Troponin I NT-Pro-B Natriuret Pep Procalcitonin 05/28/22 05/28/22 05/28/22 02:02 02:02 02:02 WBC RBC Hgb Hct MCV MCH MCHC RDW Plt Count MPV Immature Gran % Neutrophils % Lymphocytes % Monocytes % Eosinophils % Basophils % Nucleated RBC % Absolute Neutrophils Absolute Lymphocytes Absolute Monocytes Absolute Eosinophils Absolute Basophils Hypochromasia Anisocytosis D-Dimer VBG pH VBG pCO2 VBG pO2 VBG HCO3 VBG Total CO2 VBG O2 Saturation VBG Base Excess VBG Lactate 0.6 Sodium 132 L Potassium 5.5 H Chloride 93 L Carbon Dioxide 39.1 H Anion Gap -0.1 L BUN 23 H Creatinine 0.9 Est GFR (CKD-EPI 2020) 71.83 Glucose 134 H Calcium 9.3 Magnesium 2.4 Ammonia Troponin I < 50 NT-Pro-B Natriuret Pep 6425 H Procalcitonin < 0.1 05/28/22 02:02 WBC RBC Hgb Hct MCV MCH MCHC RDW Plt Count MPV Immature Gran % Neutrophils % Lymphocytes % Monocytes % Eosinophils % Basophils % Nucleated RBC % Absolute Neutrophils Absolute Lymphocytes Absolute Monocytes Absolute Eosinophils Absolute Basophils Hypochromasia Anisocytosis D-Dimer VBG pH 7.32 VBG pCO2 78 H* VBG pO2 173 VBG HCO3 39 H VBG Total CO2 Pending VBG O2 Saturation > 99 VBG Base Excess 13 H VBG Lactate Sodium Potassium Chloride Carbon Dioxide Anion Gap BUN Creatinine Est GFR (CKD-EPI 2020) Glucose Calcium Magnesium Ammonia Troponin I NT-Pro-B Natriuret Pep Procalcitonin 05/28/22 03:20 Blood Blood Culture - Pending 05/28/22 03:10 Blood Blood Culture - Pending Preliminary micro results at discharge 05/28/22 03:20 Blood Culture - Pending Blood 05/28/22 03:10 Blood Culture - Pending Blood [facility] All Active Problems (Updated 05/28/22 @ 08:47 by Laura Mars MD) Leucocytosis (Acute) Respiratory acidosis (Acute) Toxic metabolic encephalopathy (Acute) Acute and chronic respiratory failure (Acute) Carotid artery occlusion (Acute) Peripheral arterial occlusive disease (Chronic) Anemia (Chronic) Palliative care encounter (Acute) Ischemia of foot (Acute) PAF (paroxysmal atrial fibrillation) (Acute) DVT prophylaxis (Acute) Respiratory failure with hypoxia and hypercapnia (Acute) SOB (shortness of breath) (Acute) Hypercarbia (Acute) Vaginal bleeding (Acute) Hyponatremia (Acute) Pulmonary hypertension (Chronic) Hypoxia (Chronic) (HFpEF) heart failure with preserved ejection fraction (Chronic) Anxiety (Chronic) Dyspnea (Acute) Acute anemia (Acute) Postmenopausal bleeding (Acute) Dyspnea on exertion (Acute) S/P left inguinal hernia repair (Acute) 01/21/19 Dr Odette Cormier, left Left inguinal hernia (Acute) Incarcerated inguinal hernia, unilateral (Acute) Small bowel obstruction (Acute) Dehydration (Acute) Hypertension (Chronic) Change in mental status (Acute) Cardiomyopathy (Chronic) Iron deficiency anemia due to chronic blood loss (Chronic) Chronic bronchitis with COPD (chronic obstructive pulmonary disease) (Acute) COPD (chronic obstructive pulmonary disease) (Chronic) Medical History Alcohol abuse History of alcohol abuse, reports sober since 2013 Alcoholic gastritis Former smoker Hyponatremia Mood disorder with psychosis Neck pain on right side Palliative care patient Pneumonia Post-menopausal bleeding Pulmonary hypertension Respiratory failure with hypoxia Uterine mass Not candidate for surgery at [facility] or [facility] [place].08/10/21. Had partial uterine artery embolization. Unable to complete 2/2 hypoxia. 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 Daughter Evonne Hernandez Do you feel safe at home: Yes Do you feel safe in your relationship?: Yes
[2022-05-28 08:32] LABS: Ammonia 31 umol/L (11-32)
[2022-05-28 08:37] LABS: Anion Gap -1.2 mmol/L (3-11); BUN 25 mg/dL (7-18); CO2 40.2 mmol/L (21.0-32.0); Calcium 9.2 mg/dL (8.5-10.1); Chloride 92 mmol/L (98-107); Glucose 167 mg/dL (74-106); Magnesium 2.4 mg/dL (1.8-2.4); Potassium 5.6 mmol/L (3.5-5.1); Sodium 131 mmol/L (136-145); Troponin I < 50 ng/L (<or=60)
--- NOTE | 2022-05-28 10:34 | CMSCP_ITS ---
- If Service Date Differs Date of service: 05/28/22 Time of Service: 10:34 [facility] Plan of Care Plan of care: SWING BED PROGRAM ACTIVITIES/DISCHARGE PLAN OF CARE ACTIVITIES PLAN Date: Identified Need: Intervention/Plan: Initials DISCHARGE PLAN Date: 05/28/2022 Identified Need: Patient is discharged from swing bed level 1 status and admitted inpatient after being noncompliant with the trilogy device and becoming cyanotic, somnolent and increasingly more hypoxic despite increased oxygen requirement. Intervention/Plan: Patient will remain inpatient until she stabilizes. Initials LFS
--- NOTE | 2022-05-29 18:00 | INDS_ITS ---
PT Notes Visit Reasons: Chronic Respiratory Physical Therapy Inpatient Discharge Summary Date: 05/29/2022 Dates of Service: 05/26/2022 through 05/27/2022 This is a clinical summary of care provided for the duration of dates listed above. No charge was made in the completion of this documentation. Referring Doctor: Ashish Meneses MD PT Orders: PT CONSULT: Limited ability Precautions: Fall. Standard. Activity as tolerated. Patient Profile/Admitting Diagnosis:? Sukhwindern converted to swing bed level I of care for continued rehabilitattion in antcipation of discharge to home when medically ready.? Deepthi is a 61-year-old female with diagnoses of acute and chronic respiratory failure, central line infection, PAF with RVR, ischemia L foot, COPD exacerbation, elevated troponin level, HFpEF heart failure with preserved ejection fraction, anemia, acute kidney injury, and seizure. PMHX: All Active Problems?(Updated 05/10/22 @ 15:59 by Chelsey Marrero MD) Leukocytosis (Acute) Hyperkalemia (Acute) CHF exacerbation (Acute) Acute on chronic respiratory acidosis (Acute) Respiratory failure with hypoxia and hypercapnia (Acute) WENDY (acute kidney injury) (Acute) Elevated troponin I level (Acute) Altered mental status (Acute) Hypercarbia (Acute) Acidemia (Acute) SOB (shortness of breath) (Acute) Hypercarbia (Acute) COPD exacerbation (Acute) Acute and chronic respiratory failure (Acute) Vaginal bleeding (Acute) Hyponatremia (Acute) Pulmonary hypertension (Chronic) Hypoxia (Chronic) (HFpEF) heart failure with preserved ejection fraction (Chronic) Anxiety (Chronic) Dyspnea (Acute) Acute anemia (Acute) Postmenopausal bleeding (Acute) Dyspnea on exertion (Acute) S/P left inguinal hernia repair (Acute) 01/21/19 Dr Odette Cormier, leftLeft inguinal hernia (Acute) Incarcerated inguinal hernia, unilateral (Acute) Small bowel obstruction (Acute) Dehydration (Acute) Hypertension (Chronic) Change in mental status (Acute) Cardiomyopathy (Acute) Iron deficiency anemia due to chronic blood loss (Chronic) Chronic bronchitis with COPD (chronic obstructive pulmonary disease) (Acute) Alcohol abuse (Acute) COPD (chronic obstructive pulmonary disease) (Chronic) Medical History? Alcoholic gastritis Former smoker Hyponatremia Mood disorder with psychosis Neck pain on right side Palliative care patient Pneumonia Post-menopausal bleeding Pulmonary hypertension Respiratory failure with hypoxia Uterine mass Not candidate for surgery at [facility] or [facility]. Had partial uterine artery embolization. Unable to complete 2/2 hypoxia. Surgical History? EGD - MAC (07/04/16) Social History/Home Situation: Lives with in a private home with 4 steps to enter with rails on both sides.? Independent with mobility ADLs prior to admission.? cooks meals while she does laundry.? Still drives.? Equipment Owned/DME: BSC, FWW, SPC,? shower seat Subjective: NT. See most recent SPECIFICATION CONSULTANT notes. Objective: General Observation: NT. See most recent SPECIFICATION CONSULTANT notes. Mental Status: NT. See most recent SPECIFICATION CONSULTANT notes. Pain: NT. See most recent SPECIFICATION CONSULTANT notes. Anything new Vital Signs: NT. See most recent SPECIFICATION CONSULTANT notes. ROM: Right Upper Extremity: ? Shoulder Flexion WFL. Shoulder abduction WFL. Elbow flexion WFL. Wrist flexion WFL. Functional opening and closing of hand WFL. Left Upper Extremity:? Shoulder Flexion WFL. Shoulder abduction WFL. Elbow flexion WFL. Wrist flexion WFL. Functional opening and closing of hand WFL. Right Lower Extremity: Hip flexion lacks the last 25% of AROM. Hip abduction WFL. Knee flexion WFL. Ankle dorsiflexion to neutral only. Ankle plantarflexion WFL. Left Lower Extremity: Hip flexion lacks the last 25% of AROM. Hip abduction WFL. Knee flexion WFL. Ankle dorsiflexion to neutral only. Ankle plantarflexion WFL. Strength: Right Upper Extremity: Shoulder flexors 4-/5. Shoulder abductors 4-/5. Elbow flexors 4-/5. Elbow extensors 4-/5. Formulator Compounder strong. Left Upper Extremity: Shoulder flexors 4-/5. Shoulder abductors 4-/5. Elbow flexors 4-/5. Elbow extensors 4-/5. Formulator Compounder strong. Right Lower Extremity: Hip flexors 3-/5. Hip abductors 4-/5. Knee flexors 4-/5. Knee extensors 4-/5. Ankle dorsiflexors 3-/5. Ankle plantarflexors 3-/5. Left Lower Extremity: Hip flexors 3-/5. Hip abductors 4-/5. Knee flexors 4-/5. Knee extensors 4-/5. Ankle dorsiflexors 3-/5. Ankle plantarflexors 3-/5. BED MOBILITY/TRANSFERS? Sit-supine: I Supine-sit: I Sit-stand: SBA? Stand-sit: SBA ? GAIT? Assistive Device: FWW ? Weight bearing: Full Assist: SBA ? Distance: 45ft and 25ft Deviation: Seated rest, significant SOB, increased fatigue, 4L O2 supplement with O2 readings starting at 91% at rest dropping to 84% Balance: Static Sitting: Good Dynamic Sitting: Normal Static Standing: Fair Dynamic Standing: Fair Assessment: Patient moved to ICU due to symptom exacerbation. Activity tolerance slowly improving.? Saturastion level low of 87% on $ L of oxygen per minute after ambulation activity with recovery back to 91% after 1 minute of seated rest.? Patient converted to swing bed level I on 06/04/2022 and is re-evaluated today for continued rehabilitation to maxtxze functional mobiluty outcomes.? Deepthi is a 61-year-old female with diagnoses of acute and chronic respiratory failure, central line infection, PAF with RVR, ischemia L foot, COPD exacerbation, elevated troponin level, HFpEF heart failure with preserved ejection fraction, anemia, acute kidney injury, and seizure.? Low endurance, needs frequent rests.? Remains on high flow oxygen supplementation.? Patient presents with clinical signs and symptoms consistent with current/admitting diagnoses that have resulted to mobility limitations, gait instability, generalized weakness, and overall ADL decline as demonstrated by the following impairment level findings: 1.? Decreased strength to B LE major muscle groups 2.? Impaired sitting/standing balance 3.? Impaired activity tolerance 4.? Shortness of breath 5.? Swelling Impairments are contributing to the following functional limitations: 1.? Decline in bed mobility skills 2.? Decline in transfer skills 3.? Difficulty with ambulation without assistive device and physical assistance 4.? Increased completion time for mobility ADL performance 5.? Increased risk for falls 6.? Difficulty with managing steps alone safely 7.? On high flow rate oxygen supp Patient is assessed as a [id number] moderate complexity based on the following: History: 61-year-old female with past medical history as indicated above Examination: Demonstrable impairment in strength, balance, and mobility level with underlying impairments and functional limitations as exhibited above as well as deficit score of 73% utilizing the [facility] Mobility Inpatient Short Form Presentation: Evolving Decision Makin moderate complexity Goals: Goals X1 week 1. Supine-Sit independent NOT MET 2. Sit-Supine independent NOT MET 3. Sit-Stand independent NOT MET 4. Stand-Sit independent with FWW NOT MET 5. Bed-Chair independent with FWW NOT MET 6. Chair-Bed independent with FWW NOT MET 7. Supervision gait on level surface with use of FWW for at least 30 feet without report of pain nor dyspnea NOT MET 8. Supervision stair negotiation while holding onto B rails for at least 4 steps without report of pain nor dyspnea NOT MET 10. Good static and dynamic standing balance/tolerance NOT MET DISCHARGE RECOMMENDATIONS: [] ? Home with no services [] [] ? Home with services [specify] [] ? Home with outpatient PT [] [] ? SNF for continued rehabilitation [] [] ? Nursing Home Care [] [] ? SNF versus LTC based on ability to participate and progress [] [X] ? SNF vs PT depending on progress towards goals TREATMENT CODE/TIME: CATY Thank you for the opportunity to participate in the care of this patient. Marie Murillo PT, DPT, CLT [facility] [place], [place]
== END 2022-05-28 08:00 | disposition short-term general hospital (02) | DRG 189 ==
PROVIDERS: Family Medicine; Internal Medicine; Admitting Provider Family Medicine; PCP Family Medicine; Visit Provider Family Medicine
DX: J96.21 Acute and chronic respiratory failure with hypoxia (principal); G92.8 Other toxic encephalopathy; E87.20 Acidosis, unspecified; I50.32 Chronic diastolic (congestive) heart failure; J44.1 Chronic obstructive pulmonary disease with (acute) exacerbation; I47.1 Supraventricular tachycardia; J96.22 Acute and chronic respiratory failure with hypercapnia; I27.20 Pulmonary hypertension, unspecified; I48.0 Paroxysmal atrial fibrillation; I77.89 Other specified disorders of arteries and arterioles; R74.8 Abnormal levels of other serum enzymes; D64.9 Anemia, unspecified; R56.9 Unspecified convulsions; I65.29 Occlusion and stenosis of unspecified carotid artery; F41.9 Anxiety disorder, unspecified; D72.829 Elevated white blood cell count, unspecified; I11.0 Hypertensive heart disease with heart failure; Z91.14 Patient's other noncompliance with medication regimen; Z99.81 Dependence on supplemental oxygen
CPT/HCPCS: 36415; 80048; 82805; 84145; 87040; 94640; 97110; 97162; 97530; 71045; 82140; 83605; 83735; 83880; 84484; 85025; 85379; 94660; 99233; 99291; J1940; J2543; J2930; J7614; J7644

== ENCOUNTER 2022-05-28 08:02 | Inpatient (IN) | payer MEDICARE, SELFPAY ==
[2022-05-28] VITALS (57 sets, daily range): BP systolic 92–138; BP diastolic 45–123; PULSE 65–150; RESP 7–33; TEMP 36–36.3; O2SAT 83–98
--- NOTE | 2022-05-28 08:50 | W.PM.HP.N ---
Date of service: 05/28/22 Time of Service: 08:50 Assessment and Plan Assessment and plan (1) Acute on chronic respiratory failure with hypoxia and hypercapnia: Status: Acute Assessment and plan: Clinically, this is more so due to her fluid status and possible infecious process. She does not appear to be in COPD exacerbation clinically. She has improved with BiPAP and diuresis, which we will continue. Continue to monitor in the ICU. Will continue zosyn initiated this morning and add vancomcyin. Check MRSA nares. Continue scheduled + prn nebs. Will need a palliative care consult to discuss goals of care as she has been so resistant to using her trilogy. (2) (HFpEF) heart failure with preserved ejection fraction: Status: Acute Assessment and plan: As above diurese while monitorig I/Os and daily weights. Qualifiers: Heart failure chronicity: acute on chronic Qualified Code(s): I50.33 - Acute on chronic diastolic (congestive) heart failure (3) Toxic metabolic encephalopathy: Status: Acute Assessment and plan: Already improving with treatment of the respiratory acidosis. I do not feel that imaging of the brain is indicated at this time, but will consider it. (4) Respiratory acidosis: Status: Acute Assessment and plan: As above (5) HCAP (healthcare-associated pneumonia): Status: Acute Assessment and plan: As above Obtain sputum culture. Await blood cultures. (6) DVT prophylaxis: Status: Acute Assessment and plan: Therapeutic eliquis (7) Discharge planning issues: Status: Acute Assessment and plan: Full code C/s palliative care. Admit to ICU from SB1. Additional Total Critical Care Time 35 minutes. History of Present Illness History of Present Illness Chief Complaint: worsening hypoxia, altered mental status Narrative: Ms Hernandez is a 61 year old female with PMHx of chronic hypoxic hypercapnic respiratory failure due to COPD, HFpEF, hypertension, paroxysmal SVT, who was admitted into swing bed level 1 status on 05/25/22 after a lengthy admission for acute on chronic hypoxic hypercapnic repsiratory failure requiring intubation, CHF exacerbation, rapid Afib requiring initiation of amiodarone therapy, bacteremia/sepsis, concern for seizure, carotid stenosis, ischemia of her left foot with underlying BLE PAD. While in swing bed status, the patient had been noncompliant with her new trilogy device. On the evening of 05/27/22, the patient was noted to be cyanotic and progressively more and more hypoxic and somnolent with difficulty getting her back to adequate O2 sats despite increasing oxygen requirement. Because the patient was apparently saturating 70% on trilogy last night, she was placed back on BiPAP. Her imaging is consistent with pulmonary edema and mid right lunc consolidation. Her VBG demonstrates a pH of 7.28 with pCO2 of 83. She is requiring FiO2 of 70%. Her BiPAP settings were just changed from 15/5 to 20/5 and 40 mg of IV furosemide were given with some UOP already in the matamoros catheter. She is arousable to voice now, which she was not earlier today. She was started on zosyn empirically for PNA, though her procalcitonin is negative. Of note, the patient has been recently evaluated by palliative care where she chose to remain full code. Family updated and agrees with plan. Additional 35 minutes of critical Care time spent on documentation and care for the patient. Review of Systems Unobtainable due to mental status PFSH All Active Problems (Updated 05/28/22 @ 12:31 by Laura Mars MD) Discharge planning issues (Acute) HCAP (healthcare-associated pneumonia) (Acute) Acute on chronic respiratory failure with hypoxia and hypercapnia (Acute) Leucocytosis (Acute) Respiratory acidosis (Acute) Toxic metabolic encephalopathy (Acute) Acute and chronic respiratory failure (Acute) Carotid artery occlusion (Acute) Peripheral arterial occlusive disease (Chronic) Anemia (Chronic) Palliative care encounter (Acute) Ischemia of foot (Acute) PAF (paroxysmal atrial fibrillation) (Acute) DVT prophylaxis (Acute) Respiratory failure with hypoxia and hypercapnia (Acute) SOB (shortness of breath) (Acute) Hypercarbia (Acute) Vaginal bleeding (Acute) Hyponatremia (Acute) Pulmonary hypertension (Chronic) Hypoxia (Chronic) (HFpEF) heart failure with preserved ejection fraction (Acute) Anxiety (Chronic) Dyspnea (Acute) Acute anemia (Acute) Postmenopausal bleeding (Acute) Dyspnea on exertion (Acute) S/P left inguinal hernia repair (Acute) 01/21/19 Dr Odette Cormier, left Left inguinal hernia (Acute) Incarcerated inguinal hernia, unilateral (Acute) Small bowel obstruction (Acute) Dehydration (Acute) Hypertension (Chronic) Change in mental status (Acute) Cardiomyopathy (Chronic) Iron deficiency anemia due to chronic blood loss (Chronic) Chronic bronchitis with COPD (chronic obstructive pulmonary disease) (Acute) COPD (chronic obstructive pulmonary disease) (Chronic) Medical History Alcohol abuse History of alcohol abuse, reports sober since 2013 Alcoholic gastritis Former smoker Hyponatremia Mood disorder with psychosis Neck pain on right side Palliative care patient Pneumonia Post-menopausal bleeding Pulmonary hypertension Respiratory failure with hypoxia Uterine mass Not candidate for surgery at [facility] [place] [facility] [place]. Had partial uterine artery embolization. Unable to complete 2/2 hypoxia. 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 Daughter Evonne Hernandez Do you feel safe at home: Yes Do you feel safe in your relationship?: Yes Meds Allergies and Home Medications Allergies Allergy/AdvReac Type Severity Reaction Status Date / Time No Known Allergies Allergy Verified 05/10/22 09:11 Home Medications Medication Instructions Recorded Confirmed Type fluoxetine 20 mg capsule 10 mg PO DAILY 01/14/19 05/10/22 History acetaminophen 325 mg tablet 650 mg PO PRN PRN 01/21/19 05/25/22 History multivitamin 1 tab PO DAILY 11/17/19 05/25/22 History tiotropium 2.5 mcg-olodaterol 2.5 2 puff inhalation DAILY 09/15/20 05/10/22 History mcg/actuation mist for inhalation (Stiolto Respimat) fluticasone propionate 220 1 puff inhalation BID 07/26/21 05/10/22 History mcg/actuation HFA aerosol inhaler (Flovent HFA) lorazepam 0.5 mg tablet 0.5 mg PO BID PRN PRN 07/26/21 05/25/22 History nystatin 100,000 unit/gram topical 1 applic topical DIRECTED 07/26/21 05/25/22 History powder (Nystop) ipratropium bromide 0.02 % 0.25 mg (1.25 mL) UPD BID #60 mL 07/29/21 05/25/22 Rx solution for inhalation levalbuterol HCl 1.25 mg/3 mL 1.25 mg (3 mL) UPD BID #60 mL 07/29/21 05/25/22 Rx solution for nebulization levalbuterol tartrate 45 2 puff inhalation Q4H PRN PRN #15 07/29/21 03/27/22 Rx mcg/actuation aerosol inhaler grams metoprolol succinate 100 mg 200 mg PO HS #60 tabs 07/29/21 05/25/22 Rx tablet,extended release 24 hr norethindrone acetate 5 mg tablet 10 mg PO BID #240 tabs 11/14/21 05/25/22 Rx lisinopril 20 mg tablet 20 mg PO DAILY 12/30/21 05/10/22 History spironolactone 50 mg tablet 50 mg PO 1XD 12/30/21 05/25/22 History furosemide 80 mg tablet 1 tab BID 03/27/22 05/10/22 History ipratropium 0.5 mg-albuterol 3 mg 3 ml inhalation BID PRN 03/29/22 05/10/22 History (2.5 mg base)/3 mL nebulization soln pregabalin 25 mg capsule 1 - 2 cap PO BID 03/29/22 05/25/22 History risperidone 0.25 mg tablet 1 tab PO HS 03/29/22 05/25/22 History magnesium oxide 400 mg (241.3 mg 400 mg PO HS #0 tabs 03/30/22 05/25/22 Rx magnesium) tablet prednisone 20 mg tablet 40 mg PO DAILY #6 tabs 03/30/22 05/25/22 Rx ferrous sulfate 325 mg (65 mg 1 tab PO DAILY 05/10/22 05/10/22 History iron) tablet morphine 10 mg/5 mL oral solution 5 - 10 mg 05/25/22 History nicotine 21 mg/24 hr daily 1 patch transdermal Q24H PRN 05/25/22 05/25/22 History transdermal patch Exam Narrative Exam Narrative: General: Obese female who is evaluated on several occasions. 1st: responding to repetitive painful stimuli only; 2nd: responding to verbal and painful stimuli; 3rd: arousable and having purposeful movement adjusting the bipap mask Neurological: lethargic, A&Ox1, no focal deficits Psychiatric: difficult to assess at this time given mental status Skin: visible skin intact HEENT: Atraumatic, normocephalic, EOMI when eyes open, MMM, wearing BiPAP mask, unable to examine oropharynx given respiratory status, no goiter or JVD Cardiovascular: RRR, no m/r/g Lungs: Rales B Gastrointestinal: soft, nontender, nondistended Genitourinary: has a matamoros Extremities: no edema BLEs
--- NOTE | 2022-05-28 09:25 | NUR.NOTE ---
Nursing Note: Nursing arrived to find that the night worker and RT had put the patient on BIPAP. Orders received were Blanchard, Lasix IVP, Pip mateusz. Transfer to the ICU. The 3 interventions were performed on med surg. Then report was given to Suzette Cedillo in ICU. Rib Knitter Rubi. Guero Marshall , and CLUTCH INSPECTOR's helped me transfer then patient to the ICU. Patient was transferred to ICU level of care at 801
[2022-05-28 11:33] LABS: COVID-19 PCR Negative (Negative); Influenza A PCR Negative (Negative); Influenza B PCR Negative (Negative); RSV PCR Negative (Negative)
[2022-05-28 11:38] LABS: HCO3 (Venous) 42 mmol/L (23-28); O2 Sat (Venous) 98 %; TCO2 (Venous) 39 mmol/L (24-29); pH (Venous) 7.33 (7.31-7.41); pO2 (Venous) 94 mmHg
[2022-05-28 11:41] LABS: pCO2 (Venous) 79 mmHg (41-51)
[2022-05-28 11:42] LABS: BE (Venous) > 15 mmol/L (-2-3)
[2022-05-28 12:02] LABS: Troponin I < 50 ng/L (<or=60)
[2022-05-28] MEDS: Furosemide 40 MG/4 ML VIAL IVP ×2 (12:08→18:22)
[2022-05-28] MEDS: Ipratropium 0.5 MG/2.5 ML UPD VIAL UPD ×2 (12:10→18:17)
[2022-05-28 12:38] LABS: Bilirubin Negative (Negative); Blood Moderate (Negative); Clarity Sl Cloudy (Clear); Glucose Negative (Negative); Ketones Negative (Negative); Leukocyte Esterase Negative (Negative); Nitrite Negative (Negative); Specific Gravity >= 1.030 (1.005-1.025); Urobilinogen 0.2 EU/dL (Up TO 0.2)
[2022-05-28 12:54] LABS: Bacteria Few HPF (Negative); C & S Indicated? No; Casts 0-2 Hyaline LPF (Negative); Epithelial Cells Moderate HPF (Negative); RBC 20-50 HPF (0-2); WBC 0-2 HPF (0-5)
[2022-05-28] MEDS: VANCOMYCIN/WATER (PEG) 1.25 GM/250 ML BAG IV (13:00)
[2022-05-28 13:03] LABS: Crystals Negative HPF (Negative); Mucus Negative (Negative)
--- NOTE | 2022-05-28 14:33 | INITIAL_ITS ---
- If Service Date Differs Date of service: 05/28/22 Time of Service: 14:33 Care Management Initial Assess REASON FOR HOSPITALIZATION:: Acute on chronic hypoxic hypercapnic respiratory failure PAST MEDICAL HISTORY/PAST SURGICAL HISTORY:: All Active Problems: Discharge planning issues (Acute), HCAP (healthcare-associated pneumonia) (Acute), Acute on chronic respiratory failure with hypoxia and hypercapnia (Acute), Leucocytosis (Acute),. Respiratory acidosis (Acute), Toxic metabolic encephalopathy (Acute),. Acute and chronic respiratory failure (Acute), Carotid artery occlusion (Acute), Peripheral arterial occlusive disease (Chronic), Anemia (Chronic),. Palliative care encounter (Acute), Ischemia of foot (Acute), PAF (paroxysmal atrial fibrillation) (Acute), DVT prophylaxis (Acute), Respiratory failure with hypoxia and hypercapnia (Acute), SOB (shortness of breath) (Acute), Hypercarbia (Acute), Vaginal bleeding (Acute),. Hyponatremia (Acute), Pulmonary hypertension (Chronic), Hypoxia (Chronic), (HFpEF) heart failure with preserved ejection fraction (Acute),. Anxiety (Chronic), Dyspnea (Acute), Acute anemia (Acute), Postmenopausal bleeding (Acute), Dyspnea on exertion (Acute), S/P left inguinal hernia repair (Acute) - 01/21/19 Dr Odette em, left, Left inguinal hernia (Acute), Incarcerated inguinal hernia, unilateral (Acute), Small bowel obstruction (Acute), Dehydration (Acute), Hypertension (Chronic),. Change in mental status (Acute), Cardiomyopathy (Chronic), Iron deficiency anemia due to chronic blood loss (Chronic), Chronic bronchitis with COPD (chronic obstructive pulmonary disease) (Acute), and COPD (chronic obstructive pulmonary disease) (Chronic). Medical History: Alcohol abuse - History of alcohol abuse, reports sober since 2013, Alcoholic gastritis, Former smoker, Hyponatremia, Mood disorder with psychosis, Neck pain on right side, Palliative care patient,. Pneumonia, Post-menopausal bleeding, Pulmonary hypertension,. Respiratory failure with hypoxia, and Uterine mass - Not candidate for surgery at [facility] or [facility] [place]10[place]. Had partial uterine artery embolization. Unable to complete 2/2 hypoxia. Surgical History: EGD - MAC (07/04/16). PREVIOUS FUNCTIONAL STATUS/SOCIAL/FAMILY SUPPORTS:: Елена lives in [place] in a single family home with her , Osmani, and daughter, Evonne. 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 She has COPD and emphysema (per patient) and uses home oxygen at 2L/min. She receives HH nursing services and is independent at baseline. She still drives, though reports rarely. CURRENT FUNCTIONAL STATUS:: Елена first presented at [facility] on 05/10/22 for hypoxemic, hypercarbic respiratory failure and seizures. She remained inpatient at the hospital until 05/25/22 when she entered swing bed 1 status for continued strengthening. On the evening of 05/27/22, she became cyanotic and progressively more hypoxic despite increasing oxygen requirement. She was subsequently readmitted to inpatient level of care and moved to ICU for close monitoring. ADVANCE DIRECTIVES:: On file; daughter Evonne is appointed as HCA. Has patient been provided with info about the portal/API?: No Did the patient sign up for the portal?: No CODE STATUS:: Full Code INSURANCE COVERAGE / FINANCIAL ISSUES:: [facility] MCR replacement. CURRENT HOME/COMMUNITY SERVICES/EQUIPMENT:: Home Health RN, Home O2 through [facility]. PRIMARY CARE PHYSICIAN:: Hardy Eagle MD. POTENTIAL DISCHARGE NEEDS:: Follow up with PCP and plan of care, resumption of HH services. PATIENT/FAMILY EDUCATION NEEDS:: Review of discharge instructions including medications and limitations; Ask Me Three. ANTICIPATED BARRIERS TO DISCHARGE:: None identified at this time. TRANSPORTATION:: Via private vehicle with family. PLAN:: Елена is being closely monitored at ICU level of care. She will likely be discharged home when medically cleared by MD, with a resumption of HH RN. She will follow up with her PCP and plan of care and transport with family when ready. CM will assess and support identified discharge needs.
[2022-05-28] MEDS: Hyaluronidase 150 UNITS VIAL SC (16:54)
--- NOTE | 2022-05-28 17:52 | W.ANESVAS ---
Midline Placement Date Performed: 05/28/22 Procedure Time: 17:35 Requesting Provider: Laura Mars Procedure Location: Intensive Care Unit Sedation Given (Indicate Dose Given): No Sedation given Patient Mental Status: Awake Sterility: Hand Hygiene, Surgical Cap, Surgical Mask, Sterile Gloves and Chlorhexidine Laterality: Left Insertion Site: Basilic Midline Device: PowerGlide Pro 18G Catheter Length: 10 cm Midline Procedure Procedure: 1% Lidocaine to skin and subcutaneous tissue with 25g needle, Vessel accessed with catheter over needle, Guidewire placed with ease, Catheter placed without resistance and Guidewire removed Dressing: Tegaderm Applied and Statlock Applied Blood Return: Present Flushes: Easily Ultrasound: Sterile probe cover and gel used Ultrasound Image Saved?: Yes Number of Attempts (See previous attempts in note section): 1 Procedure Tolerated: No Complications and Patient tolerated well Procedure Outcome: Successful Performed By: Daniel Virk
[2022-05-28] MEDS: PIPERACILLIN/TAZO 4.5 GM in Normal Saline 100 ML IVPB ×2 (18:00→23:31)
[2022-05-28] MEDS: Normal Saline Flush 10 ML SYR IVP (18:22)
[2022-05-28] MEDS: Norethindrone 5 MG TAB 10 MG PO (20:32)
[2022-05-28] MEDS: Amiodarone 200 MG TAB PO (20:32)
[2022-05-28] MEDS: Melatonin 3 MG TAB 6 MG PO (20:32)
[2022-05-28] MEDS: Metoprolol CR 100 MG TABCR 200 MG PO (20:32)
[2022-05-28] MEDS: Ascorbic Acid 500 MG TAB PO (20:32)
[2022-05-28] MEDS: Ferrous Sulfate 325 MG TAB PO (20:32)
[2022-05-28] MEDS: Apixaban 5 MG TAB PO (20:33)
[2022-05-28] MEDS: Mometasone 220 MCG 14 DOSE INHALER 1 PUFF IH (20:34)
[2022-05-28] MEDS: VANCOMYCIN 750 MG in Normal Saline 250 ML 250 MG IVPB (23:32)
[2022-05-29] VITALS (50 sets, daily range): BP systolic 99–146; BP diastolic 52–129; PULSE 67–83; RESP 2–30; TEMP 36.2–37.4; O2SAT 74–98
[2022-05-29 06:11] LABS: Abs Immature Grans 0.08 10^3/uL (0.0-0.06); Absolute Basophil Count 0.01 10^3/uL (0.0-0.2); Absolute Lymphocyte Count 0.21 10^3/uL (1.2-3.4); Absolute Monocyte Count 0.56 10^3/uL (0.1-0.8); Absolute Neutrophil Count 8.46 10^3/uL (1.2-6.7); Basophils % 0.1; HCT 29.4 % (36.0-46.0); HGB 8.3 g/dL (11.2-15.7); Immature Grans % 0.9; Lymphocytes % 2.3; MCH 26.1 pg (27.0-33.0); MCHC 28.2 % (32.0-36.0); MCV 93 fL (80-95); MPV 10.5 fL (8.0-11.0); Neutrophils % 90.7; Platelet Count 184 10^3/uL (130-400); RBC 3.18 10^6/uL (3.93-5.22); WBC 9.32 10^3/uL (4.4-10.8)
[2022-05-29 06:31] LABS: ALT 197 U/L (14-59); AST 75 U/L (15-37); Albumin 2.7 g/dL (3.4-5.0); Alkaline Phosphatase 52 U/L (46-116); Anion Gap -2.4 mmol/L (3-11); BUN 26 mg/dL (7-18); Bilirubin, Direct 0.2 mg/dL (0.0-0.2); Bilirubin, Total 0.5 mg/dL (0.2-1.0); CO2 44.4 mmol/L (21.0-32.0); CREATININE 1.1 mg/dL (0.55-1.02); Calcium 8.9 mg/dL (8.5-10.1); Chloride 93 mmol/L (98-107); Estimated GFR 56.46 (mL/min/1.73m2); Glucose 111 mg/dL (74-106); Magnesium 2.3 mg/dL (1.8-2.4); PHOSPHORUS 3.4 mg/dL (2.6-4.7); Potassium 4.7 mmol/L (3.5-5.1); Sodium 135 mmol/L (136-145); Total Protein 6.2 g/dL (6.4-8.2)
--- NOTE | 2022-05-29 07:52 | PCPN_ITS ---
Date of service: 05/29/22 Time of Service: 07:53 Assessment and Plan Assessment and plan (1) Acute on chronic respiratory failure with hypoxia and hypercapnia: Status: Acute Assessment and plan: Lilli is unsure of the future, but still wants to be intubated should her respiratory status worsen She wants to go home addi. Staff looking into the trilegy machine as it was not working properly. Subjective Subjective Interval history since last seen: This is the fourth time that Deepthi was seen by palliative care. I had seen her once before. There is concern by staff because she is not using the tools that they are offering her to help her to improve. She does not like keeping on her mask and oxygen delivery system. There is question whether Trelegy is working right now. They feel that when they go into advised her to do certain things she is reluctant to do them. because of this they are concerned that her CODE STATUS is presently full code and that she may be interested in changing this. Deepthi did have her mask on her. It was not over her nose. She was very thirsty. She states that she would consider intubation if that was an option Exam Narrative Exam Narrative: Lying in bed. She is speaking in 3 word sentences. She does not have the mask over her nose. I did help her to move this mask and she was obviously very uncomfortable with it. Nursing did come in to help us. Soon after we did this she wanted something to drink and then needed to take off her mask. She does have pretty good airflow into both lungs. Right lower base somewhat diminished. Her heart was regular. Mood?she was scared. Objective Last Vital Signs Temp 97.2 F L 05/29/22 04:00 Pulse 84 05/28/22 18:17 Resp 22 05/28/22 18:17 BP 127/78 05/28/22 17:36 Pulse Ox 98 05/29/22 04:00 Laboratory Results - last 24 hr 05/28/22 05/28/22 05/28/22 09:25 11:10 11:20 WBC RBC Hgb Hct MCV MCH MCHC RDW Plt Count MPV Immature Gran % Neutrophils % Lymphocytes % Monocytes % Eosinophils % Basophils % Nucleated RBC % Absolute Neutrophils Absolute Lymphocytes Absolute Monocytes Absolute Eosinophils Absolute Basophils VBG pH Cancelled 7.33 VBG pCO2 Cancelled 79 H* VBG pO2 Cancelled 94 VBG HCO3 Cancelled 42 H VBG Total CO2 Cancelled 39 H VBG O2 Saturation Cancelled 98 VBG Base Excess Cancelled > 15 H Sodium Potassium Chloride Carbon Dioxide Anion Gap BUN Creatinine Est GFR (CKD-EPI 2020) Glucose Calcium Phosphorus Magnesium Total Bilirubin Conjugated Bilirubin AST ALT Alkaline Phosphatase Troponin I Total Protein Albumin Urine Color Urine Clarity Urine pH Ur Specific [place] Urine Protein Urine Ketones Urine Blood Urine Nitrite Urine Bilirubin Urine Urobilinogen Ur Leukocyte Esterase Urine RBC Urine WBC Ur Epithelial Cells Urine Crystals Urine Bacteria Urine Casts Urine Mucus Ur Culture Indicated? Urine Glucose COVID-19 Source Not Applicable SARS-CoV-2 (PCR) Negative Influenza Type A (PCR) Negative Influenza Type B (PCR) Negative RSV (PCR) Negative 05/28/22 05/28/22 05/29/22 11:20 12:00 05:16 WBC RBC Hgb Hct MCV MCH MCHC RDW Plt Count MPV Immature Gran % Neutrophils % Lymphocytes % Monocytes % Eosinophils % Basophils % Nucleated RBC % Absolute Neutrophils Absolute Lymphocytes Absolute Monocytes Absolute Eosinophils Absolute Basophils VBG pH VBG pCO2 VBG pO2 VBG HCO3 VBG Total CO2 VBG O2 Saturation VBG Base Excess Sodium 135 L Potassium 4.7 Chloride 93 L Carbon Dioxide 44.4 H Anion Gap -2.4 L BUN 26 H Creatinine 1.1 H Est GFR (CKD-EPI 2020) 56.46 Glucose 111 H Calcium 8.9 Phosphorus 3.4 Magnesium 2.3 Total Bilirubin 0.5 Conjugated Bilirubin 0.2 AST 75 H ALT 197 H Alkaline Phosphatase 52 Troponin I < 50 Total Protein 6.2 L Albumin 2.7 L Urine Color Yellow Urine Clarity Sl Cloudy Urine pH 6.0 Ur Specific [place] >= 1.030 H Urine Protein 100 H Urine Ketones Negative Urine Blood Moderate H Urine Nitrite Negative Urine Bilirubin Negative Urine Urobilinogen 0.2 Ur Leukocyte Esterase Negative Urine RBC 20-50 H Urine WBC 0-2 Ur Epithelial Cells Moderate Urine Crystals Negative Urine Bacteria Few Urine Casts 0-2 Hyaline Urine Mucus Negative Ur Culture Indicated? No Urine Glucose Negative COVID-19 Source SARS-CoV-2 (PCR) Influenza Type A (PCR) Influenza Type B (PCR) RSV (PCR) 05/29/22 05:16 WBC 9.32 RBC 3.18 L Hgb 8.3 L Hct 29.4 L MCV 93 MCH 26.1 L MCHC 28.2 L RDW 19.0 H Plt Count 184 MPV 10.5 Immature Gran % 0.9 Neutrophils % 90.7 Lymphocytes % 2.3 Monocytes % 6.0 Eosinophils % 0.0 Basophils % 0.1 Nucleated RBC % 0.0 Absolute Neutrophils 8.46 H Absolute Lymphocytes 0.21 L Absolute Monocytes 0.56 Absolute Eosinophils 0.00 Absolute Basophils 0.01 VBG pH VBG pCO2 VBG pO2 VBG HCO3 VBG Total CO2 VBG O2 Saturation VBG Base Excess Sodium Potassium Chloride Carbon Dioxide Anion Gap BUN Creatinine Est GFR (CKD-EPI 2020) Glucose Calcium Phosphorus Magnesium Total Bilirubin Conjugated Bilirubin AST ALT Alkaline Phosphatase Troponin I Total Protein Albumin Urine Color Urine Clarity Urine pH Ur Specific [place] Urine Protein Urine Ketones Urine Blood Urine Nitrite Urine Bilirubin Urine Urobilinogen Ur Leukocyte Esterase Urine RBC Urine WBC Ur Epithelial Cells Urine Crystals Urine Bacteria Urine Casts Urine Mucus Ur Culture Indicated? Urine Glucose COVID-19 Source SARS-CoV-2 (PCR) Influenza Type A (PCR) Influenza Type B (PCR) RSV (PCR)
[2022-05-29] MEDS: Mometasone 220 MCG 14 DOSE INHALER 1 PUFF IH ×2 (07:53→21:26)
[2022-05-29] MEDS: Tiotropium/Olodaterol 10 PUFF INHALER 2 PUFF IH (07:54)
[2022-05-29] MEDS: Levalbuterol 1.25 MG/3 ML UPD VIAL UPD ×4 (08:11→21:25)
[2022-05-29] MEDS: Ipratropium 0.5 MG/2.5 ML UPD VIAL UPD ×4 (08:13→21:25)
--- NOTE | 2022-05-29 09:14 | W.PULMCC ---
General Date of Service Date of service: 05/29/22 Time of Service: 07:30 Reason for Admission to ICU: Hypoxic and hypercapnic respiratory failure Assessment and Plan Assessment and plan (1) Respiratory failure with hypoxia and hypercapnia: Status: Acute (2) Acute on chronic respiratory acidosis: Status: Resolved (3) COPD exacerbation: Status: Resolved (4) CHF exacerbation: Status: Acute (5) Acute on chronic respiratory failure with hypoxia and hypercapnia: Status: Acute (6) Pulmonary hypertension: Status: Chronic (7) Elevated LFTs: Status: Acute (8) Anemia: Status: Chronic Assessment and plan: This is a chronically ill and co-morbid 61 yo woman who recently was intubated for acute hypoxic and hypercapnic respiratory failure. She recovered with diuresis and was set up with a Trilogy to use. She improved and was doing rehab in a swing bed. It seems as though there were compliance issues with Елена pulling the mask off overnight. Her torsemide was also discontinued and seems as though clinically she became gradually more volume overloaded. She was placed on BiPAP and did well on this. She currently is still requiring the BiPAP and failed again this morning on the Trilogy. Her SIMV setting on the Trilogy only has a PS of 6, which will need to be increased to at least 10-15. RT will reach out to [facility] to work on this more. She appears more volume overloaded than when I last saw her, and I do think she needs continued diuresis to help her respiratory status. Ultimately Елена really has 3 options moving forward. Be compliant with the Trilogy at night; end up requiring a trach for recurrent intubations from respiratory failure in order to facilitate mechanical ventilation at home; or transition to a comfort directed plan, ie hospice. I attempted to discuss this with her but I doubt she understood or comprehend given her mental status and somnolence. Recommendations Pulmonary: Acute on chronic hypoxic and hypercapnic respiratory failure - s/p MV - continue BiPAP 15/5 for now - will reach out to Trilogy to discuss more comfortable masks as increasing the SIMV settings - NC during the day for sats 88-92 once able - I will follow up as an outpatient - Duonebs q4h for now - morphine solution prn COPD - nebs prn - home regimen of Stiolto and Flovent - s/p prednisone and azithromycin Cardiac: CHF Exacerbation - recommend negative fluid balance - continue spirinolactone and torsemide - Lasix to acheive negative fluid balance Renal: No acute concerns I&O: Intake & Output 05/26/22 05/27/22 05/28/22 05/29/22 23:59 23:59 23:59 23:59 Intake Total 100 / 100 350 / 350 Output Total 5 / 212 1400 / 1400 Balance -2024 / -2024 -1050 / -1050 Weight 79.7 kg Daily Fluid Goal:: -1L to -2L GI Nutrition: Elevated LFT's - likely due to hypoxia - continue to monitor Infectious Disease: Empiric antibiotics - negative procal and recent MRSA nares negative - recommend stopping vanc - can continue Zosyn for now given decompensation Hematologic: Anemia of chronic disease - will monitor - transfuse is Hb under 7 Neurologic: Somnolence - likely due to hypoxia Endocrine: No acute concerns Lines: Midline PIV Munoz Prophylaxis: On Protonix - no indication for this, will discontinue On Eliquis Code Status: Resuscitation Status Full Code Subjective Critical and life-threatening events over the past 24 hours: Елена was transferred to the ICU after having worsening hypoxia while on Trilogy. This is apart seems to be related to compliance issues, although she tells me she does not remember pulling the mask off at night. She also clinically is more volume overloaded and her torsemide was stopped at some point. She is sleepy and doses in and out during my assessment. Exam Narrative Exam Narrative: POCUS 05/10/22: All views visualized, parasternal view suboptimal. Likely borderline low EF, RV normal size and function. IVC 2.5cm with no collapse (while on 8 of PEEP). No pericardial effusion. No pleural effusions bilaterally. + significant B-lines posteriorly, non significant B-lines anteriorly. Gen: NAD HENT: PERRL, nasal turbinates normal without erythema or inflammation, moist oral mucosa, Mallampati 2, No LAD or JVD Chest: No respiratory distress, normal appearance of chest, clear to auscultation bilaterally, bilaterally crackles, normal inspiratory effort Heart: regular rate and rhythym, no murmurs, rubs or gallops Abdomen: Non-distended, soft, non tender Extremities: No clubbing, 3+ pitting edema to knee edema, no cyanosis, rashes Neuro: non focal, somnolent Psych: cooperative Most Recent VS/Results Last Vital Signs Temp 36.2 C L 05/29/22 04:00 Pulse 80 05/29/22 08:54 Resp 23 05/29/22 08:54 BP 127/78 05/28/22 17:36 Pulse Ox 98 05/29/22 08:59 Laboratory Results - last 24 hr 05/28/22 05/28/22 05/28/22 09:25 11:10 11:20 WBC RBC Hgb Hct MCV MCH MCHC RDW Plt Count MPV Immature Gran % Neutrophils % Lymphocytes % Monocytes % Eosinophils % Basophils % Nucleated RBC % Absolute Neutrophils Absolute Lymphocytes Absolute Monocytes Absolute Eosinophils Absolute Basophils VBG pH Cancelled 7.33 VBG pCO2 Cancelled 79 H* VBG pO2 Cancelled 94 VBG HCO3 Cancelled 42 H VBG Total CO2 Cancelled 39 H VBG O2 Saturation Cancelled 98 VBG Base Excess Cancelled > 15 H Sodium Potassium Chloride Carbon Dioxide Anion Gap BUN Creatinine Est GFR (CKD-EPI 2020) Glucose Calcium Phosphorus Magnesium Total Bilirubin Conjugated Bilirubin AST ALT Alkaline Phosphatase Troponin I Total Protein Albumin Urine Color Urine Clarity Urine pH Ur Specific [place] Urine Protein Urine Ketones Urine Blood Urine Nitrite Urine Bilirubin Urine Urobilinogen Ur Leukocyte Esterase Urine RBC Urine WBC Ur Epithelial Cells Urine Crystals Urine Bacteria Urine Casts Urine Mucus Ur Culture Indicated? Urine Glucose COVID-19 Source Not Applicable SARS-CoV-2 (PCR) Negative Influenza Type A (PCR) Negative Influenza Type B (PCR) Negative RSV (PCR) Negative 05/28/22 05/28/22 05/29/22 11:20 12:00 05:16 WBC RBC Hgb Hct MCV MCH MCHC RDW Plt Count MPV Immature Gran % Neutrophils % Lymphocytes % Monocytes % Eosinophils % Basophils % Nucleated RBC % Absolute Neutrophils Absolute Lymphocytes Absolute Monocytes Absolute Eosinophils Absolute Basophils VBG pH VBG pCO2 VBG pO2 VBG HCO3 VBG Total CO2 VBG O2 Saturation VBG Base Excess Sodium 135 L Potassium 4.7 Chloride 93 L Carbon Dioxide 44.4 H Anion Gap -2.4 L BUN 26 H Creatinine 1.1 H Est GFR (CKD-EPI 2020) 56.46 Glucose 111 H Calcium 8.9 Phosphorus 3.4 Magnesium 2.3 Total Bilirubin 0.5 Conjugated Bilirubin 0.2 AST 75 H ALT 197 H Alkaline Phosphatase 52 Troponin I < 50 Total Protein 6.2 L Albumin 2.7 L Urine Color Yellow Urine Clarity Sl Cloudy Urine pH 6.0 Ur Specific [place] >= 1.030 H Urine Protein 100 H Urine Ketones Negative Urine Blood Moderate H Urine Nitrite Negative Urine Bilirubin Negative Urine Urobilinogen 0.2 Ur Leukocyte Esterase Negative Urine RBC 20-50 H Urine WBC 0-2 Ur Epithelial Cells Moderate Urine Crystals Negative Urine Bacteria Few Urine Casts 0-2 Hyaline Urine Mucus Negative Ur Culture Indicated? No Urine Glucose Negative COVID-19 Source SARS-CoV-2 (PCR) Influenza Type A (PCR) Influenza Type B (PCR) RSV (PCR) 05/29/22 05:16 WBC 9.32 RBC 3.18 L Hgb 8.3 L Hct 29.4 L MCV 93 MCH 26.1 L MCHC 28.2 L RDW 19.0 H Plt Count 184 MPV 10.5 Immature Gran % 0.9 Neutrophils % 90.7 Lymphocytes % 2.3 Monocytes % 6.0 Eosinophils % 0.0 Basophils % 0.1 Nucleated RBC % 0.0 Absolute Neutrophils 8.46 H Absolute Lymphocytes 0.21 L Absolute Monocytes 0.56 Absolute Eosinophils 0.00 Absolute Basophils 0.01 VBG pH VBG pCO2 VBG pO2 VBG HCO3 VBG Total CO2 VBG O2 Saturation VBG Base Excess Sodium Potassium Chloride Carbon Dioxide Anion Gap BUN Creatinine Est GFR (CKD-EPI 2020) Glucose Calcium Phosphorus Magnesium Total Bilirubin Conjugated Bilirubin AST ALT Alkaline Phosphatase Troponin I Total Protein Albumin Urine Color Urine Clarity Urine pH Ur Specific [place] Urine Protein Urine Ketones Urine Blood Urine Nitrite Urine Bilirubin Urine Urobilinogen Ur Leukocyte Esterase Urine RBC Urine WBC Ur Epithelial Cells Urine Crystals Urine Bacteria Urine Casts Urine Mucus Ur Culture Indicated? Urine Glucose COVID-19 Source SARS-CoV-2 (PCR) Influenza Type A (PCR) Influenza Type B (PCR) RSV (PCR) Review of Systems Unobtainable due to mental status Time spent with patient Time spent in Critical Care: 40 Time spent in Critical care included: Coordination of care, Chart review, Documenting critically ill care, Time at immediate bedside and Discussing critically ill care with other medical staff Multi-Disciplinary Checklist Lines/Tubes CENTRAL LINE: no ARTERIAL LINE: no MUNOZ: yes, Munoz Day#: 1 ENDOTRACHEAL TUBE: no ICU Maintenance GLUCOSE 140-180mg/dL: yes NUTRITION AT GOAL: yes PRESSURE ULCER: no RESTRAINTS: no ANTIBIOTICS(if yes, consider Stewardship): Yes Social Issues FAMILY UPDATED: yes PT/OT: no, Reason/Intervention: not appropriate at this time GOALS/DISPOSITION/HANDBAG STITCHER: yes CODE STATUS: Full Prophylaxis DVT PROPHYLAXIS: yes GI PROPHYLAXIS: yes, Indication: discontinued as no true indication
--- NOTE | 2022-05-29 09:59 | PDOC.CMPRO ---
- If Service Date Differs Date of service: 05/29/22 Time of Service: 09:59 Care Management Progress Note S/O: Елена was sitting up in her bed when CM met with her. She reported that she is feeling ok today, and is hoping to be transferred to M/S soon. Per report, she remains ICU level of care. Pulmonology visited her today and discussed her options, which are for her to be more compliant with Trilogy, to receive a trach for recurrent intubations, or to return home on hospice. Елена appeared confused when CM talked to her, stating that she is here for a week on her disability. CM asked if she was referring to SWB1, which she entered last week. CM informed Елена that she is no longer on SWB, as she is now acute. She was on 4.5L O2 NC when CM was meeting with her. Per respiratory, she will return to using BiPap later today. CM will continue to follow. A: Deepthi is a 61 year old female admitted to [facility] on 05/28/22 (from [facility]) for acute hypoxic hypercapnic respiratory failure. P: Deepthi is being closely monitored in the ICU, with oversight from the hospitalist team, pulmonology, and palliative care. Her disposition is unclear at this time. She may transition to B1 vs return home once she is medically cleared. She will follow up with her PCP and discharge plan of care, and will transport with family. CM will continue to follow.
[2022-05-29] MEDS: PIPERACILLIN/TAZO 4.5 GM in Normal Saline 100 ML IVPB ×4 (10:45→21:27)
[2022-05-29] MEDS: Furosemide 40 MG/4 ML VIAL IVP ×2 (10:51→15:40)
[2022-05-29] MEDS: Torsemide 20 MG TAB 10 MG PO (10:51)
[2022-05-29] MEDS: Ferrous Sulfate 325 MG TAB PO ×2 (10:52→21:24)
[2022-05-29] MEDS: Aspirin 81 MG CHEW PO (10:52)
[2022-05-29] MEDS: Norethindrone 5 MG TAB 10 MG PO ×2 (10:52→21:23)
[2022-05-29] MEDS: Normal Saline Flush 10 ML SYR IVP ×3 (10:52→21:25)
[2022-05-29] MEDS: Apixaban 5 MG TAB PO ×2 (10:52→21:24)
[2022-05-29] MEDS: Spironolactone 25 MG TAB PO (10:53)
[2022-05-29] MEDS: Multivitamin w/Minerals TAB 1 TAB PO (10:53)
[2022-05-29] MEDS: Amiodarone 200 MG TAB PO ×2 (10:53→21:25)
[2022-05-29] MEDS: Protein Nutritional Supplement 16 GM 1 OUNCE PACKET PO ×2 (10:53→21:23)
[2022-05-29] MEDS: FLUoxetine 10 MG TAB PO (10:53)
[2022-05-29] MEDS: Ascorbic Acid 500 MG TAB PO ×2 (10:53→21:24)
--- NOTE | 2022-05-29 13:27 | RESPIRATORY ---
Per Chelsey Marrero's request, PS on SIMV mode was increased from 6 to a PS of 15. The rest of the settings were not changed and the hope is once patient has duresis more she will be able to use Trilogy WES once again.
[2022-05-29] MEDS: Normal Saline 500 ML IV (16:39)
--- NOTE | 2022-05-29 20:26 | PGE_ITS ---
Date of Service Date of service: 05/29/22 Time of Service: 09:30 Assessment and Plan Assessment and plan (1) Acute on chronic respiratory failure with hypoxia and hypercapnia: Status: Acute Assessment and plan: Clinically, this is more so due to her fluid status and possible infecious process. She does not appear to be in COPD exacerbation clinically. Improved with BiPAP and diuresis. Continue diuresis, would keep in ICU overnight. Continue zosyn. Stop vanco. Trilogy is getting adjusted to appropriate settings. Remains full code per palliative conversation today. (2) (HFpEF) heart failure with preserved ejection fraction: Status: Acute Assessment and plan: As above diurese while monitorig I/Os and daily weights. Qualifiers: Heart failure chronicity: acute on chronic Qualified Code(s): I50.33 - Acute on chronic diastolic (congestive) heart failure (3) Toxic metabolic encephalopathy: Status: Resolved Assessment and plan: Resolved with treatment of the respiratory acidosis. I do not feel that imaging of the brain is indicated at this time. (4) Respiratory acidosis: Status: Acute Assessment and plan: As above (5) HCAP (healthcare-associated pneumonia): Status: Acute Assessment and plan: As above Sputum culture not obtained - nonproductive cough Blood cx with NGTD at 24 hrs. (6) DVT prophylaxis: Status: Acute Assessment and plan: Therapeutic eliquis (7) Discharge planning issues: Status: Acute Assessment and plan: Full code. Palliative care following. Keep in ICU. Total Critical Care Time 35 minutes. Subjective Subjective Interval history since last seen: Ms Hernandez spent the night on BiPAP 20/5 FiO2 60%. We have been working to wean that down today. She still felt short of breath this morning but stated she was better than yesterday. Denies pain, dizziness, nausea. Anxious. Exam Narrative Exam Narrative: General: Obese female, resting comfortably on BiPAp this morning, wakes up easily HEENT: EOMI, MMM Cardiovascular: RRR, no m/r/g Lungs: Rales B Gastrointestinal: soft, nontender, nondistended Genitourinary: has a matamoros Extremities: +2 edema BLEs, symmetric Objective Last Vital Signs Temp 36.2 C L 05/29/22 04:00 Pulse 70 05/29/22 20:03 Resp 16 11/14/22 20:03 BP 111/61 05/29/22 20:03 Pulse Ox 97 05/29/22 20:03 Laboratory Results - last 24 hr 05/29/22 05/29/22 05:16 05:16 WBC 9.32 RBC 3.18 L Hgb 8.3 L Hct 29.4 L MCV 93 MCH 26.1 L MCHC 28.2 L RDW 19.0 H Plt Count 184 MPV 10.5 Immature Gran % 0.9 Neutrophils % 90.7 Lymphocytes % 2.3 Monocytes % 6.0 Eosinophils % 0.0 Basophils % 0.1 Nucleated RBC % 0.0 Absolute Neutrophils 8.46 H Absolute Lymphocytes 0.21 L Absolute Monocytes 0.56 Absolute Eosinophils 0.00 Absolute Basophils 0.01 Sodium 135 L Potassium 4.7 Chloride 93 L Carbon Dioxide 44.4 H Anion Gap -2.4 L BUN 26 H Creatinine 1.1 H Est GFR (CKD-EPI 2020) 56.46 Glucose 111 H Calcium 8.9 Phosphorus 3.4 Magnesium 2.3 Total Bilirubin 0.5 Conjugated Bilirubin 0.2 AST 75 H ALT 197 H Alkaline Phosphatase 52 Total Protein 6.2 L Albumin 2.7 L Multi-Disciplinary Checklist Lines/Tubes CENTRAL LINE: no ARTERIAL LINE: no MATAMOROS: yes, [place] Day#: 1 Note: inserted 05/28/22 ENDOTRACHEAL TUBE: no ICU Maintenance GLUCOSE 140-180mg/dL: no, NUTRITION AT GOAL: no, Reason/Intervention: clear liquids, advancing PRESSURE ULCER: no RESTRAINTS: no ANTIBIOTICS(if yes, consider Stewardship): Yes Social Issues FAMILY UPDATED: yes PT/OT: no, Reason/Intervention: not yet clinically appropriate GOALS/DISPOSITION/ELECTRONIC WARFARE OFFICER: yes CODE STATUS: Full (palliative care consulted) Prophylaxis DVT PROPHYLAXIS: yes GI PROPHYLAXIS: no
[2022-05-29] MEDS: Metoprolol CR 100 MG TABCR 200 MG PO (21:23)
[2022-05-29] MEDS: Melatonin 3 MG TAB 6 MG PO (21:24)
[2022-05-30] VITALS (69 sets, daily range): BP systolic 100–132; BP diastolic 56–87; PULSE 67–123; RESP 7–35; TEMP 36.5–37.4; O2SAT 83–99
[2022-05-30] MEDS: Levalbuterol 1.25 MG/3 ML UPD VIAL UPD ×6 (00:34→19:53)
[2022-05-30] MEDS: Ipratropium 0.5 MG/2.5 ML UPD VIAL UPD ×6 (00:35→19:53)
[2022-05-30] MEDS: PIPERACILLIN/TAZO 4.5 GM in Normal Saline 100 ML IVPB ×4 (04:09→21:08)
[2022-05-30 06:19] LABS: Abs Immature Grans 0.05 10^3/uL (0.0-0.06); Absolute Basophil Count 0.05 10^3/uL (0.0-0.2); Absolute Eosinophil Count 0.02 10^3/uL (0.0-0.7); Absolute Lymphocyte Count 0.55 10^3/uL (1.2-3.4); Absolute Neutrophil Count 5.85 10^3/uL (1.2-6.7); Basophils % 0.7; Eosinophils % 0.3; HCT 28.8 % (36.0-46.0); HGB 8.1 g/dL (11.2-15.7); Immature Grans % 0.7; Lymphocytes % 7.5; MCH 25.9 pg (27.0-33.0); MCHC 28.1 % (32.0-36.0); MCV 92 fL (80-95); MPV 10.3 fL (8.0-11.0); Monocytes % 10.9; Neutrophils % 79.9; Platelet Count 204 10^3/uL (130-400); RBC 3.13 10^6/uL (3.93-5.22); RDW 20.1 % (11.7-14.6); RDW-SD 65.1 fL; WBC 7.32 10^3/uL (4.4-10.8)
[2022-05-30 06:43] LABS: BUN 22 mg/dL (7-18); Calcium 8.6 mg/dL (8.5-10.1); Chloride 93 mmol/L (98-107); Glucose 98 mg/dL (74-106); Potassium 3.8 mmol/L (3.5-5.1); Sodium 137 mmol/L (136-145)
[2022-05-30 06:44] LABS: Anion Gap -1.00001 mmol/L (3-11); CO2 > 45.0 mmol/L (21.0-32.0)
[2022-05-30 07:40] LABS: Anisocytosis 2+; Diff Comment RBC Morph Reviewed
[2022-05-30 07:41] LABS: Hypochromasia 2+; Polychromasia Present
--- NOTE | 2022-05-30 07:50 | PUCC_ITS ---
General Date of Service Date of service: 05/30/22 Time of Service: 07:51 Reason for Admission to ICU: Hypoxic and hypercapnic respiratory failure Assessment and Plan Assessment and plan (1) Respiratory failure with hypoxia and hypercapnia: Status: Acute (2) Acute on chronic respiratory acidosis: Status: Resolved (3) COPD exacerbation: Status: Resolved (4) CHF exacerbation: Status: Acute (5) Acute on chronic respiratory failure with hypoxia and hypercapnia: Status: Acute (6) Pulmonary hypertension: Status: Chronic (7) Elevated LFTs: Status: Acute (8) Anemia: Status: Chronic Assessment and plan: This is a chronically ill and co-morbid 61 yo woman who recently was intubated for acute hypoxic and hypercapnic respiratory failure. She recovered with diuresis and was set up with a Trilogy to use. She improved and was doing rehab in a swing bed. It seems as though there were compliance issues with Елена pulling the mask off overnight. Her torsemide was also discontinued and seems as though clinically she became gradually more volume overloaded. She was placed on BiPAP and did well on this. She currently is still requiring the BiPAP and failed again this morning on the Trilogy. Her SIMV setting on the Trilogy only has a PS of 6, which will need to be increased to at least 10-15. RT will reach out to [facility] to work on this more. She appears more volume overloaded than when I last saw her, and I do think she needs continued diuresis to help her respiratory status. Ultimately Елена really has 3 options moving forward. Be compliant with the Trilogy at night; end up requiring a trach for recurrent intubations from respiratory failure in order to facilitate mechanical ventilation at home; or transition to a comfort directed plan, ie hospice. I attempted to discuss this with her but I doubt she understood or comprehend given her mental status and somnolence. She diuresed and seems to be improving today. Recommendations Pulmonary: Acute on chronic hypoxic and hypercapnic respiratory failure - s/p MV - recommend trying to use Trilogy again today/tonight - SIMV exacerbation settings adjusted on Trilogy - NC during the day for sats 88-92 once able - I will follow up as an outpatient - Duonebs q4h for now - morphine solution prn COPD - nebs prn - home regimen of Stiolto and Flovent - s/p prednisone and azithromycin Cardiac: CHF Exacerbation - recommend negative fluid balance - continue spirinolactone and torsemide - Lasix to acheive negative fluid balance - was negative 2L in last 24 hours with stable creatinine Renal: No acute concerns I&O: Intake & Output 05/27/22 05/28/22 05/29/22 05/30/22 23:59 23:59 23:59 23:59 Intake Total 100 / 100 1776.35 / 1776.35 100 / 100 Output Total 2125 / 2125 4220 / 4220 750 / 750 Balance -2025 / -2025 -2443.65 / -2443.65 -650 / -650 Weight 79.7 kg 76.7 kg Daily Fluid Goal:: -1L to -2L GI Nutrition: Elevated LFT's - likely due to hypoxia - continue to monitor Infectious Disease: Empiric antibiotics - negative procal and recent MRSA nares negative - recommend stopping vanc - can continue Zosyn for now given decompensation but can stop tomorrow if still improving Hematologic: Anemia of chronic disease - will monitor - transfuse is Hb under 7 Neurologic: Somnolence - likely due to hypoxia Endocrine: No acute concerns Lines: Midline PIV Blanchard Prophylaxis: On Protonix - no indication for this, will discontinue On Eliquis Code Status: Resuscitation Status Full Code Subjective Critical and life-threatening events over the past 24 hours: Елена is doing fine. She was up in the chair and feeling well. Exam Narrative Exam Narrative: POCUS 05/10/22: All views visualized, parasternal view suboptimal. Likely borderline low EF, RV normal size and function. IVC 2.5cm with no collapse (while on 8 of PEEP). No pericardial effusion. No pleural effusions bilaterally. + significant B-lines posteriorly, non significant B-lines anteriorly. Gen: NAD HENT: PERRL, nasal turbinates normal without erythema or inflammation, moist oral mucosa, Mallampati 2, No LAD or JVD Chest: No respiratory distress, normal appearance of chest, clear to auscultation bilaterally, improved crackles, normal inspiratory effort Heart: regular rate and rhythym, no murmurs, rubs or gallops Abdomen: Non-distended, soft, non tender Extremities: No clubbing, improving edema, no cyanosis, rashes Neuro: non focal Psych: cooperative Most Recent VS/Results Last Vital Signs Temp 36.5 C 05/30/22 04:13 Pulse 75 05/30/22 05:52 Resp 26 H 05/30/22 05:52 BP 121/66 05/30/22 04:13 Pulse Ox 93 05/30/22 06:06 Laboratory Results - last 24 hr 05/30/22 05/30/22 05:25 05:25 WBC 7.32 RBC 3.13 L Hgb 8.1 L Hct 28.8 L MCV 92 MCH 25.9 L MCHC 28.1 L RDW 20.1 H Plt Count 204 MPV 10.3 Immature Gran % 0.7 Neutrophils % 79.9 Lymphocytes % 7.5 Monocytes % 10.9 Eosinophils % 0.3 Basophils % 0.7 Nucleated RBC % 0.0 Absolute Neutrophils 5.85 Absolute Lymphocytes 0.55 L Absolute Monocytes 0.80 Absolute Eosinophils 0.02 Absolute Basophils 0.05 RBC Morphology See Below Polychromasia Present Hypochromasia 2+ Anisocytosis 2+ Sodium 137 Potassium 3.8 Chloride 93 L Carbon Dioxide > 45.0 H Anion Gap -1.07340 L BUN 22 H Creatinine 1.0 Est GFR (CKD-EPI 2020) 63.30 Glucose 98 Calcium 8.6 Magnesium 2.0 Review of Systems Unobtainable due to mental status Time spent with patient Time spent in Critical Care: 35 Time spent in Critical care included: Coordination of care, Chart review, Documenting critically ill care, Time at immediate bedside and Discussing critically ill care with other medical staff
[2022-05-30] MEDS: Tiotropium/Olodaterol 10 PUFF INHALER 2 PUFF IH (08:11)
[2022-05-30] MEDS: Mometasone 220 MCG 14 DOSE INHALER 1 PUFF IH ×2 (08:11→21:09)
[2022-05-30] MEDS: Torsemide 20 MG TAB 10 MG PO (09:49)
[2022-05-30] MEDS: Furosemide 40 MG/4 ML VIAL IVP ×2 (09:49→15:50)
[2022-05-30] MEDS: Ascorbic Acid 500 MG TAB PO ×2 (09:49→21:05)
[2022-05-30] MEDS: FLUoxetine 10 MG TAB PO (09:49)
[2022-05-30] MEDS: Norethindrone 5 MG TAB 10 MG PO ×2 (09:49→21:05)
[2022-05-30] MEDS: Amiodarone 200 MG TAB PO ×2 (09:50→21:06)
[2022-05-30] MEDS: Multivitamin w/Minerals TAB 1 TAB PO (09:50)
[2022-05-30] MEDS: Apixaban 5 MG TAB PO ×2 (09:50→21:06)
[2022-05-30] MEDS: Spironolactone 25 MG TAB PO (09:50)
[2022-05-30] MEDS: Ferrous Sulfate 325 MG TAB PO ×2 (09:50→21:06)
[2022-05-30] MEDS: Aspirin 81 MG CHEW PO (09:50)
[2022-05-30] MEDS: Protein Nutritional Supplement 16 GM 1 OUNCE PACKET PO ×2 (09:51→21:05)
--- NOTE | 2022-05-30 10:36 | IN_ITS ---
Date of service: 05/30/22 Time of Service: 10:36 PT Notes Visit Reasons: Acute on chronic hypoxic hypercapnic respiratory Physical Therapy Inpatient Initial Evaluation Date: 05/30/2022 Referring Doctor: Laura Mars MD PT Orders: PT CONSULT: Limited ability Precautions: Fall. Standard. Activity as tolerated. Patient Profile/Admitting Diagnosis:? Patient needed to be transferred to ICU on 05/27/2022 due to symptom exacerbation. Deepthi is a 61-year-old female with diagnoses of acute and chronic respiratory failure with hypoxia and hypercapnia, CHF exacerbation, pulmonary hypertension, elevated LFTs, anemia. PMHX: All Active Problems?(Updated 05/10/22 @ 15:59 by Chelsey Marrero MD) Leukocytosis (Acute) Hyperkalemia (Acute) CHF exacerbation (Acute) Acute on chronic respiratory acidosis (Acute) Respiratory failure with hypoxia and hypercapnia (Acute) WENDY (acute kidney injury) (Acute) Elevated troponin I level (Acute) Altered mental status (Acute) Hypercarbia (Acute) Acidemia (Acute) SOB (shortness of breath) (Acute) Hypercarbia (Acute) COPD exacerbation (Acute) Acute and chronic respiratory failure (Acute) Vaginal bleeding (Acute) Hyponatremia (Acute) Pulmonary hypertension (Chronic) Hypoxia (Chronic) (HFpEF) heart failure with preserved ejection fraction (Chronic) Anxiety (Chronic) Dyspnea (Acute) Acute anemia (Acute) Postmenopausal bleeding (Acute) Dyspnea on exertion (Acute) S/P left inguinal hernia repair (Acute) 01/21/19 Dr Odette Cormier, leftLeft inguinal hernia (Acute) Incarcerated inguinal hernia, unilateral (Acute) Small bowel obstruction (Acute) Dehydration (Acute) Hypertension (Chronic) Change in mental status (Acute) Cardiomyopathy (Acute) Iron deficiency anemia due to chronic blood loss (Chronic) Chronic bronchitis with COPD (chronic obstructive pulmonary disease) (Acute) Alcohol abuse (Acute) COPD (chronic obstructive pulmonary disease) (Chronic) Medical History? Alcoholic gastritis Former smoker Hyponatremia Mood disorder with psychosis Neck pain on right side Palliative care patient Pneumonia Post-menopausal bleeding Pulmonary hypertension Respiratory failure with hypoxia Uterine mass Not candidate for surgery at [facility] or [facility].08/10/21. Had partial uterine artery embolization. Unable to complete 2/2 hypoxia. Surgical History? EGD - MAC (07/04/16) Social History/Home Situation: Lives with in a private home with 4 steps to enter with rails on both sides.? Independent with mobility ADLs prior to admission.? cooks meals while she does laundry.? Still drives.? Equipment Owned/DME: BSC, FWW, SPC,? shower seat Subjective: Agreeable to PT consult. Denies headache, chest pain and lightheadedness thorughout session. Objective: General Observation: Seated on chair.? On 4 L of oxygen supp via NC.? Telemetry monitoring in place.? Blanchard catheter in place. Mental Status: Alert and oriented as to person, place, time, and purpose. Able to pay attention, focus, and respond appropriately. Pain: Denies Vital Signs: Oxygen saturation lowest at 88% after ambulation activity but re- saturated back to 92% after about 1 minute of seated rest. ROM: Right Upper Extremity: ? Shoulder Flexion WFL. Shoulder abduction WFL. Elbow flexion WFL. Wrist flexion WFL. Functional opening and closing of hand WFL. Left Upper Extremity:? Shoulder Flexion WFL. Shoulder abduction WFL. Elbow flexion WFL. Wrist flexion WFL. Functional opening and closing of hand WFL. Right Lower Extremity: Hip flexion lacks the last 25% of AROM. Hip abduction WFL. Knee flexion WFL. Ankle dorsiflexion to neutral only. Ankle plantarflexion WFL. Left Lower Extremity: Hip flexion lacks the last 25% of AROM. Hip abduction WFL. Knee flexion WFL. Ankle dorsiflexion to neutral only. Ankle plantarflexion WFL. Strength: Right Upper Extremity: Shoulder flexors 4-/5. Shoulder abductors 4-/5. Elbow flexors 4-/5. Elbow extensors 4-/5. Transformer Shop Supervisor strong. Left Upper Extremity: Shoulder flexors 4-/5. Shoulder abductors 4-/5. Elbow flexors 4-/5. Elbow extensors 4-/5. Transformer Shop Supervisor strong. Right Lower Extremity: Hip flexors 3-/5. Hip abductors 4-/5. Knee flexors 4-/5. Knee extensors 4-/5. Ankle dorsiflexors 3-/5. Ankle plantarflexors 3-/5. Left Lower Extremity: Hip flexors 3-/5. Hip abductors 4-/5. Knee flexors 4-/5. Knee extensors 4-/5. Ankle dorsiflexors 3-/5. Ankle plantarflexors 3-/5. Bed Mobility/Transfers:? (NAYANA Genevieve helped out for line management and safety) Sit to stand minimal assist stand by assist Stand to sit stand by assist Bed to bedside commode stand by assist Bedside commode to bedside chair stand by assist Gait: Instructed patient with level surface ambulation of 10 feet + 10 feet.? Migdalia decreased. Step height decreased. Step length decreased.? Moderate shortness of breath that subsided with activity.? O2 sat low of 88% on 4L but re-saturated back to 92% after about 1 minute of seated rest. Balance: Static Sitting: Good Dynamic Sitting: Normal Static Standing: Fair Dynamic Standing: Fair Special Tests: Mobility Limitations Standardized Measure [facility] AM-PAC 6 clicks Basic Mobility Inpatient Short Form: Raw Score: 23? CMS Score: 11% deficit? ? ? Informed Consent/Education: Patient was instructed in purpose of PT consult and plan of care. Agreeable to proceed with established PT POC to achieve personal goals. Assessment: Activity tolerance slowly improving.? Saturation level low of 88% on 4L of oxygen per minute after ambulation activity with recovery back to 92% after 1 minute of seated rest.? Patient converted to swing bed level I on 06/04/2022 and is re-evaluated today for continued rehabilitation to maximize functional mobility outcomes.? She needed to transfer to ICU level of care due to symptom exacerbation. Deepthi is a 61-year-old female with needed to be transferred to ICU on 05/27/2022 due to symptom exacerbation. Deepthi is a 61-year-old female with diagnoses of acute and chronic respiratory failure with hypoxia and hypercapnia, CHF exacerbation, pulmonary hypertension, elevated LFTs, anemia. Remains on high flow oxygen supplementation.? Patient presents with clinical signs and symptoms consistent with current/admitting diagnoses that have resulted to mobility limitations, gait instability, generalized weakness, and overall ADL decline as demonstrated by the following impairment level findings: 1.? Decreased strength to B LE major muscle groups 2.? Impaired sitting/standing balance 3.? Impaired activity tolerance 4.? Shortness of breath 5.? Swelling Impairments are contributing to the following functional limitations: 1.? Decline in bed mobility skills 2.? Decline in transfer skills 3.? Difficulty with ambulation without assistive device and physical assistance 4.? Increased completion time for mobility ADL performance 5.? Increased risk for falls 6.? Difficulty with managing steps alone safely 7.? On high flow rate oxygen supp Patient is assessed as a 65294 moderate complexity based on the following: History: 61-year-old female with past medical history as indicated above Examination: Demonstrable impairment in strength, balance, and mobility level with underlying impairments and functional limitations as exhibited above as well as deficit score of 73% utilizing the [facility] Mobility Inpatient Short Form Presentation: Evolving Decision Makin moderate complexity Goals: Goals X1 week 1. Supine-Sit independent 2. Sit-Supine independent 3. Sit-Stand independent 4. Stand-Sit independent with FWW 5. Bed-Chair independent with FWW 6. Chair-Bed independent with FWW 7. Supervision gait on level surface with use of FWW for at least 30 feet without report of pain nor dyspnea 8. Supervision stair negotiation while holding onto B rails for at least 4 steps without report of pain nor dyspnea 10. Good static and dynamic standing balance/tolerance Plan of Care/Treatment Plan: 1-2x/day, 7 days/week x 1 week. Plan of care has been reviewed with the TELEVISION DIRECTOR providing the service under Physical Therapy direction. Initiate Physical Therapy intervention for pain management as needed, strengthening, bed mobility, transfers, gait, stairs, balance training, and use of assistive device. DISCHARGE RECOMMENDATIONS: [] ? Home with no services [] [] ? Home with services [specify] [] ? Home with outpatient PT [] [] ? SNF for continued rehabilitation [] [] ? [facility] [] [] ? SNF versus LTC based on ability to participate and progress [] [X] ? SNF vs PT depending on progress towards goals TREATMENT CODE/TIME: 24847 x 25 minutes beginning at 10:36 AM. Thank you for the opportunity to participate in the care of this patient. Marie Murillo PT, DPT, CLT [facility] [place], [place]
--- NOTE | 2022-05-30 13:52 | NUR.NOTE ---
1330: Pt assisted to bed for rest. Pt reports feeling SOB with attempt to wear Trilogy device. Morphine 10mg po given for her SOB/air hunger symptoms although pt refused to put the trilogy device back on.
--- NOTE | 2022-05-30 15:15 | PT.INTREAT ---
Date of service: 05/30/22 Time of Service: 13:52 PT Notes Visit Reasons: Acute on chronic hypoxic hypercapnic respiratory Inpatient Physical Therapy Treatment Note [facility] Date: 05/30/2022 PRECAUTIONS: Activity as tolerated SUBJECTIVE: Елена reports that she is tired this afternoon. She states that she does not want to get out of bed to walk this afternoon. She is agreeable to participating in exercises at EOB and in bed. OBJECTIVE: PAIN: No c/o pain BED MOBILITY/TRANSFERS Sit-supine: I Supine-sit: I Sit-stand: SBA Stand-sit: SBA GAIT Assistive Device: No AD Weight bearing: Full Assist: SBA Distance: 3 steps to R THEREX: Patient was instructed in a LE strengthening program, completed in both supine and seated positions, to include: ankle pumps, heel raises, quad sets, glute sets, heel slides, LAQ, hip flexion and hip abduction. She also completes functional iwu-pc-anask x3. ASSESSMENT: Patient tolerated session with complaint of increased global fatigue and SOB with all activity. She continues to demonstrate limited activity tolerance. PLAN: Continue with global strengthening and gait training for improved activity tolerance. TREATMENT CODE/TIME: 15 minutes; 14941 (13:52)
[2022-05-30] MEDS: Normal Saline Flush 10 ML SYR IVP (15:50)
--- NOTE | 2022-05-30 18:10 | CMPROGNOTE_ITS ---
- If Service Date Differs Date of service: 05/30/22 Time of Service: 18:10 Care Management Progress Note S/O: Елена remains ICU level of care on BIPAP. Per MD she is not tolerating Trilogy; new mask is on back order per RT. Pulmonology discussed need for compliance with Trilogy, related to concerns for increased risk to re- intubation. Per report, trach for recurrent intubations, is being considered as well as hospice consult. CM continues to follow. A: Deepthi is a 61 year old female admitted to [facility] on 05/28/22 (from [facility]) for acute hypoxic hypercapnic respiratory failure. P: Deephti is being closely monitored in the ICU, with oversight from the hospitalist team, pulmonology, and palliative care. Her disposition is unclear at this time. She may transition to [facility] vs return home once she is medically cleared. She will follow up with her PCP and discharge plan of care, and will transport with family. CM will continue to follow.
--- NOTE | 2022-05-30 20:30 | W.PM.PROGNOT ---
Date of Service Date of service: 05/30/22 Time of Service: 09:45 Assessment and Plan Assessment and plan (1) Acute on chronic respiratory failure with hypoxia and hypercapnia: Status: Acute Assessment and plan: Clinically, due to CHF exacerbation. She does not appear to be in COPD exacerbation clinically. Improved with BiPAP and diuresis. Continue diuresis, would keep in ICU trialing trilogy today. Continue zosyn. Remains full code per palliative conversation today. (2) (HFpEF) heart failure with preserved ejection fraction: Status: Acute Assessment and plan: As above diurese while monitorig I/Os and daily weights. Qualifiers: Heart failure chronicity: acute on chronic Qualified Code(s): I50.33 - Acute on chronic diastolic (congestive) heart failure (3) Toxic metabolic encephalopathy: Status: Resolved Assessment and plan: Resolved with treatment of the respiratory acidosis. I do not feel that imaging of the brain is indicated at this time. (4) Respiratory acidosis: Status: Acute Assessment and plan: As above (5) HCAP (healthcare-associated pneumonia): Status: Acute Assessment and plan: As above Sputum culture not obtained - nonproductive cough Blood cx with NGTD at 24 hrs. (6) DVT prophylaxis: Status: Acute Assessment and plan: Therapeutic eliquis (7) Discharge planning issues: Status: Acute Assessment and plan: Full code. Palliative care following. Keep in ICU. Total Critical Care Time [address] Marrero Subjective Subjective Interval history since last seen: Deepthi is feeling better today. She is tired. Denies dizziness, chest pain, nausea. Breathing is better. Is on 4.5 L of O2 by MO at time of my evaluation. Spent the night on BiPAP (20/5 35% FiO2). Will be trialed on trilogy again tonight. Exam Narrative Exam Narrative: General: Obese female, sitting up in a chair on MO HEENT: EOMI, MMM Cardiovascular: RRR, no m/r/g Lungs: improved Rales B Gastrointestinal: soft, nontender, nondistended Genitourinary: has a matamoros Extremities: +1 edema BLEs, symmetric Objective Last Vital Signs Temp 36.7 C 05/30/22 16:10 Pulse 75 05/30/22 19:53 Resp 25 H 05/30/22 19:53 BP 126/66 05/30/22 18:00 Pulse Ox 99 05/30/22 19:53 Laboratory Results - last 24 hr 05/30/22 05/30/22 05:25 05:25 WBC 7.32 RBC 3.13 L Hgb 8.1 L Hct 28.8 L MCV 92 MCH 25.9 L MCHC 28.1 L RDW 20.1 H Plt Count 204 MPV 10.3 Immature Gran % 0.7 Neutrophils % 79.9 Lymphocytes % 7.5 Monocytes % 10.9 Eosinophils % 0.3 Basophils % 0.7 Nucleated RBC % 0.0 Absolute Neutrophils 5.85 Absolute Lymphocytes 0.55 L Absolute Monocytes 0.80 Absolute Eosinophils 0.02 Absolute Basophils 0.05 RBC Morphology See Below Polychromasia Present Hypochromasia 2+ Anisocytosis 2+ Sodium 137 Potassium 3.8 Chloride 93 L Carbon Dioxide > 45.0 H Anion Gap -1.38662 L BUN 22 H Creatinine 1.0 Est GFR (CKD-EPI 2020) 63.30 Glucose 98 Calcium 8.6 Magnesium 2.0 Multi-Disciplinary Checklist Lines/Tubes CENTRAL LINE: no ARTERIAL LINE: no MATAMOROS: yes, [place] Day#: 2 Note: Inserted 05/28/22 ENDOTRACHEAL TUBE: no ICU Maintenance GLUCOSE 140-180mg/dL: yes NUTRITION AT GOAL: yes PRESSURE ULCER: no RESTRAINTS: no ANTIBIOTICS(if yes, consider Stewardship): Yes Social Issues FAMILY UPDATED: yes PT/OT: yes GOALS/DISPOSITION/MINING DETAIL DRAFTSPERSON: yes CODE STATUS: Full (palliative care consulted) Prophylaxis DVT PROPHYLAXIS: yes GI PROPHYLAXIS: no
[2022-05-30] MEDS: Metoprolol CR 100 MG TABCR 200 MG PO (21:06)
[2022-05-30] MEDS: Melatonin 3 MG TAB 6 MG PO (21:06)
[2022-05-30] MEDS: LORazepam 0.5 MG TAB 1 MG PO (21:06)
[2022-05-31] VITALS (79 sets, daily range): BP systolic 111–156; BP diastolic 64–84; PULSE 67–124; RESP 1–37; TEMP 36.5–36.8; O2SAT 86–100
[2022-05-31] MEDS: Ipratropium 0.5 MG/2.5 ML UPD VIAL UPD ×7 (01:06→23:31)
[2022-05-31] MEDS: Levalbuterol 1.25 MG/3 ML UPD VIAL UPD ×7 (01:06→23:31)
[2022-05-31] MEDS: Normal Saline Flush 10 ML SYR IVP ×6 (04:05→21:41)
[2022-05-31] MEDS: PIPERACILLIN/TAZO 4.5 GM in Normal Saline 100 ML IVPB ×4 (04:06→21:40)
[2022-05-31 06:58] LABS: Anion Gap 0.4 mmol/L (3-11); BUN 15 mg/dL (7-18); CO2 44.6 mmol/L (21.0-32.0); Calcium 8.6 mg/dL (8.5-10.1); Chloride 93 mmol/L (98-107); Glucose 102 mg/dL (74-106); Magnesium 1.6 mg/dL (1.8-2.4); Sodium 138 mmol/L (136-145)
[2022-05-31 07:25] LABS: Abs Immature Grans 0.04 10^3/uL (0.0-0.06); Absolute Basophil Count 0.05 10^3/uL (0.0-0.2); Absolute Eosinophil Count 0.02 10^3/uL (0.0-0.7); Absolute Lymphocyte Count 0.62 10^3/uL (1.2-3.4); Absolute Monocyte Count 0.72 10^3/uL (0.1-0.8); Absolute Neutrophil Count 5.17 10^3/uL (1.2-6.7); Basophils % 0.8; Eosinophils % 0.3; HCT 31.1 % (36.0-46.0); HGB 8.8 g/dL (11.2-15.7); Immature Grans % 0.6; Lymphocytes % 9.4; MCH 26.2 pg (27.0-33.0); MCHC 28.3 % (32.0-36.0); MCV 93 fL (80-95); MPV 9.9 fL (8.0-11.0); Monocytes % 10.9; Platelet Count 212 10^3/uL (130-400); RBC 3.36 10^6/uL (3.93-5.22); RDW 20.5 % (11.7-14.6); RDW-SD 66.8 fL; WBC 6.62 10^3/uL (4.4-10.8)
[2022-05-31 07:26] LABS: Anisocytosis 2+; Diff Comment RBC Morph Reviewed
[2022-05-31] MEDS: Tiotropium/Olodaterol 10 PUFF INHALER 2 PUFF IH (08:22)
--- NOTE | 2022-05-31 08:44 | W.PM.PROGNOT ---
Date of Service Date of service: 05/31/22 Time of Service: 08:44 Assessment and Plan Assessment and plan (1) Acute on chronic respiratory failure with hypoxia and hypercapnia: Status: Acute Assessment and plan: Clinically, due to CHF exacerbation. She does not appear to be in COPD exacerbation. Improved with BiPAP and diuresis. Did well on new trilogy settings overnight. Continue diuresis. Transfer out of the ICU. Continue zosyn (day 10/18). Remains full code per palliative care meeting. (2) (HFpEF) heart failure with preserved ejection fraction: Status: Acute Assessment and plan: As above diurese while monitorig I/Os and daily weights. Qualifiers: Heart failure chronicity: acute on chronic Qualified Code(s): I50.33 - Acute on chronic diastolic (congestive) heart failure (3) Toxic metabolic encephalopathy: Status: Resolved Assessment and plan: Resolved with treatment of the respiratory acidosis. I do not feel that imaging of the brain is indicated at this time. (4) Respiratory acidosis: Status: Acute Assessment and plan: As above (5) HCAP (healthcare-associated pneumonia): Status: Acute Assessment and plan: As above Sputum culture not obtained - nonproductive cough Blood cx with NGTD at 24 hrs. Continue zosyn (day 10/18). (6) DVT prophylaxis: Status: Acute Assessment and plan: Therapeutic eliquis (7) Discharge planning issues: Status: Acute Assessment and plan: Full code. Palliative care following. Transfer out of ICU to medr floor. Discussed with Dr Marrero Subjective Subjective Interval history since last seen: Ms Hernandez spent 5-6 hrs on the trilogy machine last night - 4L of O2 bleed in with O2 sats 88-92%. Did well. This morning, she is sitting in a chair on NC at 4L. Denies dizziness, chest pain, shortness of breath, nausea. Tired. Wants to nap. Being transferred to medical surgical floor this morning. Exam Narrative Exam Narrative: General: Obese female, sitting up in a chair on NC at 4L - no dyspnea, tachypnea cyanosis HEENT: EOMI, MMM Cardiovascular: RRR, no m/r/g Lungs: rales only heard in the R base today; CTA on L Gastrointestinal: soft, nontender, nondistended Genitourinary: has a matamoros Extremities: trace edema BLEs, symmetric Objective Last Vital Signs Temp 36.7 C 05/31/22 04:10 Pulse 84 05/31/22 08:06 Resp 24 05/31/22 08:06 BP 136/71 05/31/22 04:00 Pulse Ox 96 05/31/22 08:06 Laboratory Results - last 24 hr 05/31/22 05/31/22 05:30 05:30 WBC 6.62 RBC 3.36 L Hgb 8.8 L Hct 31.1 L MCV 93 MCH 26.2 L MCHC 28.3 L RDW 20.5 H Plt Count 212 MPV 9.9 Immature Gran % 0.6 Neutrophils % 78.0 Lymphocytes % 9.4 Monocytes % 10.9 Eosinophils % 0.3 Basophils % 0.8 Nucleated RBC % 0.0 Absolute Neutrophils 5.17 Absolute Lymphocytes 0.62 L Absolute Monocytes 0.72 Absolute Eosinophils 0.02 Absolute Basophils 0.05 RBC Morphology See Below Anisocytosis 2+ Sodium 138 Potassium 3.0 L Chloride 93 L Carbon Dioxide 44.6 H Anion Gap 0.4 L BUN 15 Creatinine 1.0 Est GFR (CKD-EPI 2020) 63.30 Glucose 102 Calcium 8.6 Magnesium 1.6 L
--- NOTE | 2022-05-31 08:57 | W.PULMCC ---
General Date of Service Date of service: 05/31/22 Time of Service: 08:00 Reason for Admission to ICU: Hypoxic and hypercapnic respiratory failure Assessment and Plan Assessment and plan (1) Respiratory failure with hypoxia and hypercapnia: Status: Acute (2) Acute on chronic respiratory acidosis: Status: Resolved (3) COPD exacerbation: Status: Resolved (4) CHF exacerbation: Status: Acute (5) Acute on chronic respiratory failure with hypoxia and hypercapnia: Status: Acute (6) Pulmonary hypertension: Status: Chronic (7) Elevated LFTs: Status: Acute (8) Anemia: Status: Chronic Assessment and plan: This is a chronically ill and co-morbid 61 yo woman who recently was intubated for acute hypoxic and hypercapnic respiratory failure. She recovered with diuresis and was set up with a Trilogy to use. She improved and was doing rehab in a swing bed. It seems as though there were compliance issues with Елена pulling the mask off overnight. Her torsemide was also discontinued and seems as though clinically she became gradually more volume overloaded. She was placed on BiPAP and did well on this. She currently is still requiring the BiPAP and failed again this morning on the Trilogy. Her SIMV setting on the Trilogy were adjusted. She did well overnight with the Trilogy. I showed nursing how to select the different modes on her Trilogy (AVAPS for night time and naps, SIMV for exacerbations and MPV for a little boost when slightly symptomatic). She can be transferred to the floor today. Recommendations Pulmonary: Acute on chronic hypoxic and hypercapnic respiratory failure - s/p MV - recommend trying to use Trilogy again today/tonight - SIMV exacerbation settings adjusted on Trilogy - OH during the day for sats 88-92 - I will follow up as an outpatient - Duonebs q4h for now - morphine solution prn COPD - nebs prn - home regimen of Stiolto and Flovent - s/p prednisone and azithromycin Cardiac: CHF Exacerbation - recommend negative fluid balance - continue spirinolactone and torsemide - Lasix to acheive negative fluid balance - was negative 1.5L in last 24 hours with stable creatinine Renal: No acute concerns I&O: Intake & Output 05/28/22 05/29/22 05/30/22 05/31/22 23:59 23:59 23:59 23:59 Intake Total 100 / 100 1776.35 / 1776.35 1370 / 1370 470 / 470 Output Total 5 / 2125 4220 / 4220 2925 / 2925 600 / 600 Balance -2025 / -2025 -2443.65 / -2443.65 -1555 / -1555 -130 / -130 Weight 79.7 kg 76.7 kg 74.8 kg Daily Fluid Goal:: -1L to -2L GI Nutrition: Elevated LFT's - likely due to hypoxia - continue to monitor Date of Last Bowel Movement: 05/31/22 Infectious Disease: Empiric antibiotics - negative procal and recent MRSA nares negative - Zosyn can be discontinued Hematologic: Anemia of chronic disease - will monitor - transfuse is Hb under 7 Neurologic: Somnolence - likely due to hypoxia Endocrine: No acute concerns Lines: Midline PIV [place] Prophylaxis: On Eliquis Code Status: Resuscitation Status Full Code Subjective Critical and life-threatening events over the past 24 hours: Елена used her Trilogy last night for 5-6 hours without issue. She is on nasal cannula this morning and doing well. Exam Narrative Exam Narrative: POCUS 05/10/22: All views visualized, parasternal view suboptimal. Likely borderline low EF, RV normal size and function. IVC 2.5cm with no collapse (while on 8 of PEEP). No pericardial effusion. No pleural effusions bilaterally. + significant B-lines posteriorly, non significant B-lines anteriorly. Gen: NAD HENT: PERRL, nasal turbinates normal without erythema or inflammation, moist oral mucosa, Mallampati 2, No LAD or JVD Chest: No respiratory distress, normal appearance of chest, clear to auscultation bilaterally, no crackles or wheezes, normal inspiratory effort Heart: regular rate and rhythym, no murmurs, rubs or gallops Abdomen: Non-distended, soft, non tender Extremities: No clubbing, improving edema, no cyanosis, rashes Neuro: non focal Psych: cooperative Most Recent VS/Results Last Vital Signs Temp 36.7 C 05/31/22 04:10 Pulse 84 05/31/22 08:06 Resp 24 05/31/22 08:06 BP 136/71 05/31/22 04:00 Pulse Ox 96 05/31/22 08:06 Laboratory Results - last 24 hr 05/31/22 05/31/22 05:30 05:30 WBC 6.62 RBC 3.36 L Hgb 8.8 L Hct 31.1 L MCV 93 MCH 26.2 L MCHC 28.3 L RDW 20.5 H Plt Count 212 MPV 9.9 Immature Gran % 0.6 Neutrophils % 78.0 Lymphocytes % 9.4 Monocytes % 10.9 Eosinophils % 0.3 Basophils % 0.8 Nucleated RBC % 0.0 Absolute Neutrophils 5.17 Absolute Lymphocytes 0.62 L Absolute Monocytes 0.72 Absolute Eosinophils 0.02 Absolute Basophils 0.05 RBC Morphology See Below Anisocytosis 2+ Sodium 138 Potassium 3.0 L Chloride 93 L Carbon Dioxide 44.6 H Anion Gap 0.4 L BUN 15 Creatinine 1.0 Est GFR (CKD-EPI 2020) 63.30 Glucose 102 Calcium 8.6 Magnesium 1.6 L Review of Systems All systems reviewed & are unremarkable except as noted in HPI and below Time spent with patient Time spent in Critical Care: 35 Time spent in Critical care included: Chart review, Documenting critically ill care, Time at immediate bedside and Discussing critically ill care with other medical staff
[2022-05-31] MEDS: MAGNESIUM SULFATE 2 GM/50 ML BAG IVPB (08:59)
[2022-05-31] MEDS: POTASSIUM CHLORIDE 20 MEQ/100 ML BAG 50 MEQ IVPB ×2 (09:01→13:02)
[2022-05-31] MEDS: Apixaban 5 MG TAB PO (09:02)
[2022-05-31] MEDS: Furosemide 40 MG/4 ML VIAL IVP ×2 (09:02→16:52)
[2022-05-31] MEDS: Torsemide 20 MG TAB 10 MG PO (09:02)
[2022-05-31] MEDS: Amiodarone 200 MG TAB PO ×2 (09:02→19:52)
[2022-05-31] MEDS: FLUoxetine 10 MG TAB PO (09:02)
[2022-05-31] MEDS: Multivitamin w/Minerals TAB 1 TAB PO (09:02)
[2022-05-31] MEDS: Aspirin 81 MG CHEW PO (09:04)
[2022-05-31] MEDS: Protein Nutritional Supplement 16 GM 1 OUNCE PACKET PO (09:05)
[2022-05-31] MEDS: Potassium Chloride 20 MEQ TABCR 40 MEQ PO (09:05)
[2022-05-31] MEDS: Spironolactone 25 MG TAB PO (09:05)
[2022-05-31] MEDS: Ferrous Sulfate 325 MG TAB PO ×2 (09:05→19:52)
[2022-05-31] MEDS: Ascorbic Acid 500 MG TAB PO ×2 (09:07→19:52)
[2022-05-31] MEDS: Mometasone 220 MCG 14 DOSE INHALER 1 PUFF IH ×2 (09:07→19:32)
[2022-05-31] MEDS: Norethindrone 5 MG TAB 10 MG PO ×2 (09:15→19:51)
--- NOTE | 2022-05-31 09:20 | PT.INTREAT ---
Date of service: 05/31/22 Time of Service: 08:45 PT Notes Visit Reasons: Acute on chronic hypoxic hypercapnic respiratory Inpatient Physical Therapy Treatment Note [facility] Date: 05/31/2022 PRECAUTIONS: Activity as tolerated SUBJECTIVE: Елена is pleasant and agreeable to participating in PT. She reports that she is not feeling well today. She requests to get back into bed after PT. OBJECTIVE: PAIN: Patient c/o stomach pain BED MOBILITY/TRANSFERS Sit-supine: I with HOB flat Sit-stand: SBA Stand-sit: SBA GAIT Assistive Device: FWW Weight bearing: Full Assist: SBA Distance: 15' Deviation: SOB, increased fatigue, 3L O2, standing rest x2 THEREX: Patient was instructed in a LE strengthening program, completed in a supine position, to include: ankle pumps, quad sets, glute sets, heel slides and hip abduction. TOILETING: Patient toileted with assist ASSESSMENT: Patient tolerated session with complaint of increased global fatigue and SOB with all activity. She continues to demonstrate limited activity tolerance, although this will likely be patient's new baseline level of function. PLAN: Continue with global strengthening and gait training for improved activity tolerance. TREATMENT CODE/TIME: Session 1: 25 minutes; 14926, 16131 (08:45) Session 2: Hold, patient resting on BiPap
--- NOTE | 2022-05-31 09:56 | PDOC.CMPRO ---
- If Service Date Differs Date of service: 05/31/22 Time of Service: 09:56 Care Management Progress Note S/O: Елена was sitting up in her chair when CM met with her. She stated that she is feeling tired. CM discussed her discharge plans, as per report, she will likely be ready for discharge in a day or two. She stated that she would consider going to rehab, but is unsure where she would be willing to go, as she understands that [facility] has declined her due to the Trilogy machine she requires. CM talked to PT, who stated that she is doing well with mobility, and is currently stand by assist. She lacks endurance, but PT does not anticipate that this will improve within a short period of time. CM called Evonne and spoke to her about the discharge plan to return home. Evonne stated that she will stay with her parents after Елена discharges from [facility] to help with the transition home, and to assist with her care as needed. CM will continue to follow. A: Deepthi is a 61 year old female admitted to [facility] on 05/28/22 (from [facility]) for acute hypoxic hypercapnic respiratory failure. P: Deepthi is being closely monitored in the ICU, with oversight from the hospitalist team, pulmonology, and palliative care. Her disposition is unclear at this time. She may transition to [facility] vs return home once she is medically cleared. She will follow up with her PCP and discharge plan of care, and will transport with family. CM will continue to follow.
--- NOTE | 2022-05-31 16:28 | NUR.NOTE ---
Nursing Note: At 1605, the patient was transferred from ICU to med-surg status. Patient is now in room 225. Patient oriented to the room and call tong. Vital signs obtained. Patient on 4L NC at this time sating at 91%.
[2022-05-31] MEDS: Normal Saline 500 ML 30 ML IV (16:52)
[2022-05-31] MEDS: Metoprolol CR 100 MG TABCR 200 MG PO (21:41)
[2022-05-31] MEDS: Melatonin 3 MG TAB 6 MG PO (21:41)
[2022-06-01] VITALS (16 sets, daily range): BP systolic 113–146; BP diastolic 64–92; PULSE 56–80; RESP 1–22; TEMP 36.5–37.1; O2SAT 89–98
[2022-06-01] MEDS: Levalbuterol 1.25 MG/3 ML UPD VIAL UPD ×5 (03:04→19:10)
[2022-06-01] MEDS: Ipratropium 0.5 MG/2.5 ML UPD VIAL UPD ×5 (03:05→19:10)
[2022-06-01] MEDS: PIPERACILLIN/TAZO 4.5 GM in Normal Saline 100 ML IVPB ×4 (03:50→23:49)
[2022-06-01] MEDS: Normal Saline Flush 10 ML SYR IVP ×5 (03:51→16:07)
[2022-06-01 05:37] LABS: Abs Immature Grans 0.03 10^3/uL (0.0-0.06); Absolute Basophil Count 0.04 10^3/uL (0.0-0.2); Absolute Eosinophil Count 0.02 10^3/uL (0.0-0.7); Absolute Lymphocyte Count 0.59 10^3/uL (1.2-3.4); Absolute Monocyte Count 0.66 10^3/uL (0.1-0.8); Absolute Neutrophil Count 5.75 10^3/uL (1.2-6.7); Basophils % 0.6; Eosinophils % 0.3; HCT 31.7 % (36.0-46.0); HGB 9.2 g/dL (11.2-15.7); Immature Grans % 0.4; Lymphocytes % 8.3; MCH 26.3 pg (27.0-33.0); MCV 91 fL (80-95); MPV 9.7 fL (8.0-11.0); Monocytes % 9.3; Neutrophils % 81.1; Platelet Count 236 10^3/uL (130-400); RDW 20.5 % (11.7-14.6); RDW-SD 66.5 fL; WBC 7.09 10^3/uL (4.4-10.8)
[2022-06-01 06:01] LABS: Anion Gap -0.7 mmol/L (3-11); BUN 16 mg/dL (7-18); CO2 41.7 mmol/L (21.0-32.0); CREATININE 1.1 mg/dL (0.55-1.02); Calcium 9.1 mg/dL (8.5-10.1); Chloride 95 mmol/L (98-107); Estimated GFR 56.46 (mL/min/1.73m2); Glucose 104 mg/dL (74-106); Magnesium 1.9 mg/dL (1.8-2.4); Potassium 3.7 mmol/L (3.5-5.1); Sodium 136 mmol/L (136-145)
[2022-06-01 06:02] LABS: Anisocytosis 2+; Diff Comment RBC Morph Reviewed; Polychromasia Present; Stomatocytes 2+
[2022-06-01] MEDS: Protein Nutritional Supplement 16 GM 1 OUNCE PACKET PO ×2 (08:34→21:02)
[2022-06-01] MEDS: Ascorbic Acid 500 MG TAB PO ×2 (08:35→21:03)
[2022-06-01] MEDS: Multivitamin w/Minerals TAB 1 TAB PO (08:35)
[2022-06-01] MEDS: Amiodarone 200 MG TAB PO (08:35)
[2022-06-01] MEDS: Ferrous Sulfate 325 MG TAB PO ×2 (08:35→21:04)
[2022-06-01] MEDS: Furosemide 40 MG/4 ML VIAL IVP ×2 (08:35→16:07)
[2022-06-01] MEDS: Spironolactone 25 MG TAB PO (08:35)
[2022-06-01] MEDS: Torsemide 20 MG TAB 10 MG PO (08:36)
[2022-06-01] MEDS: Aspirin 81 MG CHEW PO (08:36)
[2022-06-01] MEDS: Norethindrone 5 MG TAB 10 MG PO ×2 (08:36→21:03)
[2022-06-01] MEDS: FLUoxetine 10 MG TAB PO (08:36)
[2022-06-01 08:42] LABS: HCO3 (Venous) 42 mmol/L (23-28); O2 Sat (Venous) 76 %; TCO2 (Venous) 38 mmol/L (24-29); pCO2 (Venous) 60 mmHg (41-51); pH (Venous) 7.45 (7.31-7.41); pO2 (Venous) 41 mmHg
[2022-06-01 08:49] LABS: BE (Venous) > 15 mmol/L (-2-3)
[2022-06-01] MEDS: Apixaban 5 MG TAB PO ×2 (08:49→21:05)
[2022-06-01 10:03] LABS: C Diff PCR Negative (Negative)
[2022-06-01 10:50] LABS: Bilirubin Negative (Negative); Blood Small (Negative); Clarity Clear (Clear); Glucose Negative (Negative); Ketones Negative (Negative); Leukocyte Esterase Negative (Negative); Nitrite Negative (Negative); Urobilinogen 0.2 EU/dL (Up TO 0.2); pH 7.5 (5-8)
--- NOTE | 2022-06-01 10:53 | PT.INTREAT ---
Date of service: 06/01/22 Time of Service: 07:47 PT Notes Visit Reasons: Acute on Chronic Hypoxic Hypercapnic Respiratory Inpatient Physical Therapy Treatment Note [facility] Date: 06/01/2022 PRECAUTIONS: Activity as tolerated SUBJECTIVE: Елена is agreeable to participating in PT. She reports that she is feeling confused. She states I don't know what's going on. OBJECTIVE: PAIN: No c/o pain BED MOBILITY/TRANSFERS Sit-supine: I with HOB flat Sit-stand: SBA Stand-sit: SBA GAIT Assistive Device: FWW Weight bearing: Full Assist: SBA Distance: 10' + 5' (patient refused distance progression) Deviation: SOB, increased fatigue, 3L O2 THEREX: Patient was instructed in an UE and LE strengthening program, completed in a seated position, to include: ankle pumps, heel raises, LAQ, hip flexion, hip abduction, shoulder flexion and shoulder horizontal abduction. TOILETING: Patient toileted with assist ASSESSMENT: Patient tolerated session with complaint of increased global fatigue and SOB with all activity. She continues to demonstrate limited activity tolerance, although this will likely be patient's new baseline level of function. PLAN: Continue with global strengthening and gait training for improved activity tolerance. TREATMENT CODE/TIME: Session 1: 25 minutes; 96940, 82015 (07:47) Session 2: Patient not available, napping on Trilogy
[2022-06-01 10:56] LABS: Bacteria Rare HPF (Negative); C & S Indicated? No; Casts Negative LPF (Negative); Crystals Negative HPF (Negative); Epithelial Cells Negative HPF (Negative); Mucus Negative (Negative); Other Cells Negative (Negative); RBC 0-2 HPF (0-2); WBC Negative HPF (0-5)
[2022-06-01] MEDS: Mometasone 220 MCG 14 DOSE INHALER 1 PUFF IH ×2 (12:05→19:15)
[2022-06-01] MEDS: Tiotropium/Olodaterol 10 PUFF INHALER 2 PUFF IH (12:05)
--- NOTE | 2022-06-01 16:18 | CMPROGNOTE_ITS ---
- If Service Date Differs Date of service: 06/01/22 Time of Service: 16:18 Care Management Progress Note S/O: Елена was sitting up in her chair when CM met with her. She stated that she is feeling tired today. CM discussed her goals for discharge, and she stated that she is comfortable going home with the support from her family and home health, but she will consider going to a rehab facility, if she is accepted. She asked that CM contact her daughter, Evonne to decide where to send referrals. A fter talking with Evonne, CM will send referrals to the [facility], [facility], [facility], [place] [facility], and the [place]. CM will continue to follow. A: Deepthi is a 61 year old female admitted to [facility] on 05/28/22 (from [facility]) for acute hypoxic hypercapnic respiratory failure. P: Deepthi is being closely monitored in the ICU, with oversight from the hospitalist team, pulmonology, and palliative care. Her disposition is unclear at this time. She may transition to [facility] vs return home once she is medically cleared. She will follow up with her PCP and discharge plan of care, and will transport with family. CM will continue to follow.
--- NOTE | 2022-06-01 16:24 | PGE_ITS ---
Date of Service Date of service: 06/01/22 Time of Service: 16:26 Assessment and Plan Assessment and plan (1) Acute on chronic respiratory failure with hypoxia and hypercapnia: Status: Acute Assessment and plan: Clinically, due to CHF exacerbation. She does not appear to be in COPD exacerbation. Improved with BiPAP and diuresis. Down to 3L NC today. Continue trilogy at night and with naps. Continue diuresis. Finish zosyn today. Remains full code per palliative care meeting. (2) (HFpEF) heart failure with preserved ejection fraction: Status: Acute Assessment and plan: As above diurese while monitorig I/Os and daily weights. Qualifiers: Heart failure chronicity: acute on chronic Qualified Code(s): I50.33 - Acute on chronic diastolic (congestive) heart failure (3) Toxic metabolic encephalopathy: Status: Resolved Assessment and plan: Resolved with treatment of the respiratory acidosis. I do not feel that imaging of the brain is indicated at this time. (4) Respiratory acidosis: Status: Acute Assessment and plan: As above (5) HCAP (healthcare-associated pneumonia): Status: Acute Assessment and plan: As above Sputum culture not obtained - nonproductive cough Blood cx with NGTD at 24 hrs. Finish antibiotics. (6) DVT prophylaxis: Status: Acute Assessment and plan: Therapeutic eliquis (7) Discharge planning issues: Status: Acute Assessment and plan: Full code. Palliative care following. Continues to require hospitalization. Patient interested in SNF. Subjective Subjective Interval history since last seen: Ms Hernandez states she feels a little better as far as her breathing. She is still tired. Took a nap - she says, with trilogy on. Denies dizziness, chest pain, nausea. Exam Narrative Exam Narrative: General: Obese female, sitting up in a chair on NC at 3L - no dyspnea, tachypnea cyanosis, A&Ox3, much more engaged than when I saw her yesterday HEENT: EOMI, MMM Cardiovascular: RRR, no m/r/g Lungs: Diminished breath sounds B Gastrointestinal: soft, nontender, nondistended Genitourinary: has a matamoros (no blood) Extremities: trace edema BLEs, symmetric Objective Last Vital Signs Temp 36.8 C 06/01/22 15:21 Pulse 75 06/01/22 16:00 Resp 18 06/01/22 16:00 BP 120/76 06/01/22 15:21 Pulse Ox 96 06/01/22 16:00 Laboratory Results - last 24 hr 06/01/22 06/01/22 06/01/22 05:10 05:10 08:35 WBC 7.09 RBC 3.50 L Hgb 9.2 L Hct 31.7 L MCV 91 MCH 26.3 L MCHC 29.0 L RDW 20.5 H Plt Count 236 MPV 9.7 Immature Gran % 0.4 Neutrophils % 81.1 Lymphocytes % 8.3 Monocytes % 9.3 Eosinophils % 0.3 Basophils % 0.6 Nucleated RBC % 0.0 Absolute Neutrophils 5.75 Absolute Lymphocytes 0.59 L Absolute Monocytes 0.66 Absolute Eosinophils 0.02 Absolute Basophils 0.04 RBC Morphology See Below Polychromasia Present Anisocytosis 2+ Stomatocytes 2+ VBG pH 7.45 H VBG pCO2 60 H VBG pO2 41 VBG HCO3 42 H VBG Total CO2 38 H VBG O2 Saturation 76 VBG Base Excess > 15 H Sodium 136 Potassium 3.7 Chloride 95 L Carbon Dioxide 41.7 H Anion Gap -0.7 L BUN 16 Creatinine 1.1 H Est GFR (CKD-EPI 2020) 56.46 Glucose 104 Calcium 9.1 Magnesium 1.9 Urine Color Urine Clarity Urine pH Ur Specific [place] Urine Protein Urine Ketones Urine Blood Urine Nitrite Urine Bilirubin Urine Urobilinogen Ur Leukocyte Esterase Urine RBC Urine WBC Ur Epithelial Cells Urine Crystals Urine Bacteria Urine Casts Urine Mucus Urine Other Ur Culture Indicated? Urine Glucose Stl C.difficile Tox PCR 06/01/22 06/01/22 08:55 10:25 WBC RBC Hgb Hct MCV MCH MCHC RDW Plt Count MPV Immature Gran % Neutrophils % Lymphocytes % Monocytes % Eosinophils % Basophils % Nucleated RBC % Absolute Neutrophils Absolute Lymphocytes Absolute Monocytes Absolute Eosinophils Absolute Basophils RBC Morphology Polychromasia Anisocytosis Stomatocytes VBG pH VBG pCO2 VBG pO2 VBG HCO3 VBG Total CO2 VBG O2 Saturation VBG Base Excess Sodium Potassium Chloride Carbon Dioxide Anion Gap BUN Creatinine Est GFR (CKD-EPI 2020) Glucose Calcium Magnesium Urine Color Yellow Urine Clarity Clear Urine pH 7.5 Ur Specific [place] 1.020 Urine Protein Negative Urine Ketones Negative Urine Blood Small H Urine Nitrite Negative Urine Bilirubin Negative Urine Urobilinogen 0.2 Ur Leukocyte Esterase Negative Urine RBC 0-2 Urine WBC Negative Ur Epithelial Cells Negative Urine Crystals Negative Urine Bacteria Rare Urine Casts Negative Urine Mucus Negative Urine Other Negative Ur Culture Indicated? No Urine Glucose Negative Stl C.difficile Tox PCR Negative
[2022-06-01] MEDS: Metoprolol CR 100 MG TABCR 200 MG PO (21:10)
[2022-06-01] MEDS: Melatonin 3 MG TAB 6 MG PO (21:11)
[2022-06-02] VITALS (24 sets, daily range): BP systolic 106–167; BP diastolic 63–88; PULSE 67–87; RESP 1–24; TEMP 36.3–37.6; O2SAT 77–97
[2022-06-02] MEDS: Levalbuterol 1.25 MG/3 ML UPD VIAL UPD ×7 (00:35→23:48)
[2022-06-02] MEDS: Ipratropium 0.5 MG/2.5 ML UPD VIAL UPD ×7 (00:35→23:50)
[2022-06-02] MEDS: Normal Saline Flush 10 ML SYR IVP ×4 (05:50→16:15)
[2022-06-02 06:26] LABS: Abs Immature Grans 0.08 10^3/uL (0.0-0.06); Absolute Basophil Count 0.03 10^3/uL (0.0-0.2); Absolute Lymphocyte Count 0.51 10^3/uL (1.2-3.4); Absolute Monocyte Count 0.58 10^3/uL (0.1-0.8); Absolute Neutrophil Count 5.84 10^3/uL (1.2-6.7); Basophils % 0.4; HCT 32.4 % (36.0-46.0); HGB 9.7 g/dL (11.2-15.7); Immature Grans % 1.1; Lymphocytes % 7.2; MCH 26.4 pg (27.0-33.0); MCHC 29.9 % (32.0-36.0); MCV 88 fL (80-95); MPV 9.7 fL (8.0-11.0); Monocytes % 8.2; Neutrophils % 83.1; Platelet Count 259 10^3/uL (130-400); RBC 3.68 10^6/uL (3.93-5.22); RDW 21.1 % (11.7-14.6); RDW-SD 66.9 fL; WBC 7.04 10^3/uL (4.4-10.8)
[2022-06-02 06:40] LABS: Anion Gap 4.1 mmol/L (3-11); BUN 20 mg/dL (7-18); CO2 38.9 mmol/L (21.0-32.0); CREATININE 1.2 mg/dL (0.55-1.02); Calcium 8.9 mg/dL (8.5-10.1); Chloride 92 mmol/L (98-107); Estimated GFR 50.86 (mL/min/1.73m2); Glucose 98 mg/dL (74-106); Potassium 3.3 mmol/L (3.5-5.1); Sodium 135 mmol/L (136-145)
[2022-06-02 07:43] LABS: Anisocytosis 1+; Macrocytosis 1+
[2022-06-02 07:44] LABS: Polychromasia Present
[2022-06-02] MEDS: Tiotropium/Olodaterol 10 PUFF INHALER 2 PUFF IH (07:54)
[2022-06-02] MEDS: Mometasone 220 MCG 14 DOSE INHALER 1 PUFF IH ×2 (07:54→20:24)
[2022-06-02] MEDS: Ascorbic Acid 500 MG TAB PO ×2 (09:13→20:23)
[2022-06-02] MEDS: Amiodarone 200 MG TAB PO (09:13)
[2022-06-02] MEDS: Norethindrone 5 MG TAB 10 MG PO ×2 (09:13→20:22)
[2022-06-02] MEDS: Apixaban 5 MG TAB PO ×2 (09:13→20:23)
[2022-06-02] MEDS: Ferrous Sulfate 325 MG TAB PO ×2 (09:13→20:23)
[2022-06-02] MEDS: Multivitamin w/Minerals TAB 1 TAB PO (09:13)
[2022-06-02] MEDS: FLUoxetine 10 MG TAB PO (09:13)
[2022-06-02] MEDS: Aspirin 81 MG CHEW PO (09:13)
[2022-06-02] MEDS: Spironolactone 25 MG TAB PO (09:18)
[2022-06-02] MEDS: Torsemide 20 MG TAB 10 MG PO (09:19)
[2022-06-02] MEDS: Furosemide 40 MG/4 ML VIAL IVP ×2 (09:45→16:15)
[2022-06-02] MEDS: Protein Nutritional Supplement 16 GM 1 OUNCE PACKET PO ×2 (09:46→20:24)
--- NOTE | 2022-06-02 10:24 | CMPROGNOTE_ITS ---
- If Service Date Differs Date of service: 06/02/22 Time of Service: 10:24 Care Management Progress Note S/O: Елена was sitting up in her chair when CM met with her. She stated that she slept well last night, but still feels tired. She reported that per MD, she will likely be here through the weekend, as she is still on IV lasiks. CM sent referrals to the [facility], [facility], and [facility] for short term rehab. 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 Her family is very supportive, and are ok with either plan. CM will continue to follow. A: Deepthi is a 61 year old female admitted to [facility] on 05/28/22 (from [facility]) for acute hypoxic hypercapnic respiratory failure. P: Deepthi is being closely monitored in the ICU, with oversight from the hospitalist team, pulmonology, and palliative care. Her disposition is unclear at this time. She may transition to [facility] vs return home once she is medically cleared. She will follow up with her PCP and discharge plan of care, and will transport with family. CM will continue to follow.
--- NOTE | 2022-06-02 10:25 | PT.INTREAT ---
Date of service: 06/02/22 Time of Service: 09:06 PT Notes Visit Reasons: Acute on Chronic Hypoxic Hypercapnic Respiratory Inpatient Physical Therapy Treatment Note [facility] Date: 06/02/2022 PRECAUTIONS: Activity as tolerated SUBJECTIVE: Елена is agreeable to participating in PT. She reports that she is short of breath and cold today. OBJECTIVE: PAIN: No c/o pain BED MOBILITY/TRANSFERS Sit-stand: S Stand-sit: S GAIT Assistive Device: FWW Weight bearing: Full Assist: SBA Distance: 5' + 20' + 5' + 20' Deviation: Moderate SOB, increased fatigue, 4L O2 TOILETING: Patient toileted with assist ASSESSMENT: Patient tolerated session with complaint of increased global fatigue and SOB with all activity. She continues to demonstrate limited activity tolerance, although this will likely be patient's new baseline level of function. PLAN: Continue with global strengthening and gait training for improved activity tolerance. TREATMENT CODE/TIME: 25 minutes; 11094 x2 (09:06)
[2022-06-02] MEDS: Potassium Chloride 20 MEQ TABCR 40 MEQ PO (10:26)
--- NOTE | 2022-06-02 13:02 | PT.INTREAT ---
Date of service: 06/02/22 Time of Service: 13:02 PT Notes Visit Reasons: Acute on Chronic Hypoxic Hypercapnic Respiratory Inpatient Physical Therapy Treatment Note [facility] Date: 06/02/2022 PRECAUTIONS: Activity as tolerated. Now on 3L of O2/min via NC. SUBJECTIVE: Agreeable to only walking a short distance insinde her room today. Complains of being tired and wanting to rest. Anticipating disahcrge to home with services on Sunday. OBJECTIVE: ? Seated on chair. 3L/min of oxygen supp attached to wall and to client via NC. ? PAIN: Denies ? BED MOBILITY/TRANSFERS? Sit-stand: independent ? Stand-sit: independent chair-bed: supervision ? GAIT? Assistive Device: FWW ? Weight bearing: Full Assist: SBA ? Distance: 20 feet Deviation: Reports fatigue but denies chest pain and headache. Moderate shortness fo breath that subsided with rest. THERA EX: Chest expansion exercises/B UE forward flexion with DBE (pursed lip breathing) x 5 Chest expansion exercises/B UE horizontal abduction with DBE (pursed lip breathing) x 5 ASSESSMENT:? Continues to be limited and short of breath with mobility performance. Will need to continue with energy conservation, activity pacing, and low intensity activity performance with intermittent rests. PLAN: Continue with functional mobility progression as tolerated. Emphasize energy conservation techniques, breathing techniques, and adequate rests to improve activity tolerance. TREATMENT CODE/TIME:? 10189 x 13 minutes beginning at 13:02 PM.
--- NOTE | 2022-06-02 14:51 | W.PM.PROGNOT ---
Date of Service Date of service: 06/02/22 Time of Service: 14:54 Assessment and Plan Assessment and plan (1) Acute on chronic respiratory failure with hypoxia and hypercapnia: Status: Acute Assessment and plan: Clinically, due to CHF exacerbation. Improved with Trilogy and diuresis. Down to 2-2.5L NC today. Continue trilogy at night and with naps. Continue diuresis. Finished zosyn Remains full code per palliative care meeting. (2) (HFpEF) heart failure with preserved ejection fraction: Status: Acute Assessment and plan: As above diuresing with torsemide and spironolactone while monitorig I/Os and daily weights. Qualifiers: Heart failure chronicity: acute on chronic Qualified Code(s): I50.33 - Acute on chronic diastolic (congestive) heart failure (3) Toxic metabolic encephalopathy: Status: Resolved Assessment and plan: Resolved with treatment of the respiratory acidosis. (4) Respiratory acidosis: Status: Acute Assessment and plan: As above (5) HCAP (healthcare-associated pneumonia): Status: Acute Assessment and plan: As above Sputum culture not obtained - nonproductive cough Blood cx with NGTD at 24 hrs. Finished antibiotics. (6) DVT prophylaxis: Status: Acute Assessment and plan: Therapeutic eliquis (7) Discharge planning issues: Status: Acute Assessment and plan: Full code. Palliative care following. Continues to require hospitalization. Plan is home on Sunday. She is still considering SNF if she doesn't feel she does adequately well at home. Subjective Subjective Patient reports: shortness of breath (with minimal activity) and afebrile; denies feels better, nausea or vomiting Interval history since last seen: Pt was compliant with Trilogy overnight. Exam Narrative Exam Narrative: General: Obese female, sitting up in a chair. Looks more rested, HEENT: EOMI, MMM Cardiovascular: RRR, no murmur Lungs: Diminished breath sounds B Gastrointestinal: soft, nontender, nondistended Genitourinary: has a matamoros / blood in urine. Extremities: trace edema BLEs, symmetric Objective Last Vital Signs Temp 36.5 C 06/02/22 11:13 Pulse 78 06/02/22 12:03 Resp 16 06/02/22 12:03 BP 122/78 06/02/22 11:13 Pulse Ox 92 06/02/22 12:16 Laboratory Results - last 24 hr 06/02/22 06/02/22 05:50 05:50 WBC 7.04 RBC 3.68 L Hgb 9.7 L Hct 32.4 L MCV 88 MCH 26.4 L MCHC 29.9 L RDW 21.1 H Plt Count 259 MPV 9.7 Immature Gran % 1.1 Neutrophils % 83.1 Lymphocytes % 7.2 Monocytes % 8.2 Eosinophils % 0.0 Basophils % 0.4 Nucleated RBC % 0.0 Absolute Neutrophils 5.84 Absolute Lymphocytes 0.51 L Absolute Monocytes 0.58 Absolute Eosinophils 0.00 Absolute Basophils 0.03 RBC Morphology See Below Polychromasia Present Anisocytosis 1+ Macrocytosis 1+ Sodium 135 L Potassium 3.3 L Chloride 92 L Carbon Dioxide 38.9 H Anion Gap 4.1 BUN 20 H Creatinine 1.2 H Est GFR (CKD-EPI 2020) 50.86 Glucose 98 Calcium 8.9 Magnesium 2.0
[2022-06-02] MEDS: Metoprolol CR 100 MG TABCR 200 MG PO (20:29)
[2022-06-02] MEDS: Melatonin 3 MG TAB 6 MG PO (20:29)
[2022-06-02] MEDS: LORazepam 0.5 MG TAB 1 MG PO (22:23)
[2022-06-03] VITALS (17 sets, daily range): BP systolic 114–150; BP diastolic 73–96; PULSE 75–80; RESP 2–24; TEMP 36.7–37.3; O2SAT 92–97
[2022-06-03] MEDS: Levalbuterol 1.25 MG/3 ML UPD VIAL UPD ×5 (04:58→21:00)
[2022-06-03] MEDS: Ipratropium 0.5 MG/2.5 ML UPD VIAL UPD ×5 (05:00→21:25)
[2022-06-03 06:37] LABS: Anion Gap 2.4 mmol/L (3-11); BUN 27 mg/dL (7-18); CO2 39.6 mmol/L (21.0-32.0); CREATININE 1.1 mg/dL (0.55-1.02); Calcium 9.2 mg/dL (8.5-10.1); Chloride 94 mmol/L (98-107); Estimated GFR 56.46 (mL/min/1.73m2); Glucose 101 mg/dL (74-106); Potassium 3.7 mmol/L (3.5-5.1); Sodium 136 mmol/L (136-145)
[2022-06-03] MEDS: Amiodarone 200 MG TAB PO (07:53)
[2022-06-03] MEDS: Apixaban 5 MG TAB PO ×2 (07:54→20:58)
[2022-06-03] MEDS: Ascorbic Acid 500 MG TAB PO ×2 (07:54→20:59)
[2022-06-03] MEDS: Aspirin 81 MG CHEW PO (07:54)
[2022-06-03] MEDS: Furosemide 40 MG/4 ML VIAL IVP ×2 (07:55→15:59)
[2022-06-03] MEDS: Ferrous Sulfate 325 MG TAB PO ×2 (07:55→20:59)
[2022-06-03] MEDS: FLUoxetine 10 MG TAB PO (07:55)
[2022-06-03] MEDS: Multivitamin w/Minerals TAB 1 TAB PO (07:56)
[2022-06-03] MEDS: Protein Nutritional Supplement 16 GM 1 OUNCE PACKET PO ×2 (07:57→21:00)
[2022-06-03] MEDS: Torsemide 20 MG TAB 10 MG PO (07:57)
[2022-06-03] MEDS: Norethindrone 5 MG TAB 10 MG PO ×2 (07:57→20:59)
[2022-06-03] MEDS: Spironolactone 25 MG TAB PO (07:57)
[2022-06-03] MEDS: Normal Saline Flush 10 ML SYR IVP ×2 (07:58→15:59)
[2022-06-03] MEDS: Tiotropium/Olodaterol 10 PUFF INHALER 2 PUFF IH (08:55)
[2022-06-03] MEDS: Mometasone 220 MCG 14 DOSE INHALER 1 PUFF IH ×2 (10:01→21:25)
--- NOTE | 2022-06-03 10:01 | PT.INTREAT ---
PT Notes Visit Reasons: Acute on Chronic Hypoxic Hypercapnic Respiratory Date: 06/03/2022 PRECAUTIONS: Activity as tolerated.? Now on 3L of O2/min via NC. SUBJECTIVE: Pt in recliner, pt agreed to participating with therapy. OBJECTIVE: ? PAIN: Denies ? BED MOBILITY/TRANSFERS? Sit-stand: independent ? Stand-sit: independent chair-bed: supervision ? GAIT? Assistive Device: FWW ? Weight bearing: Full Assist: SBA ? Distance: 20 feet Deviation: slow steady gait, SOB after 20', requiring rest break before doing standing for 3mins THERA EX: Chest expansion exercises/B UE forward flexion with DBE (pursed lip breathing) x 5 Chest expansion exercises/B UE horizontal abduction with DBE (pursed lip breathing) x 5 ASSESSMENT:? Continues to be limited and short of breath with mobility performance.? Will need to continue with energy conservation,? activity pacing,? and low intensity activity performance with intermittent rests. PLAN: Continue with functional mobility progression as tolerated.? Emphasize energy conservation techniques,? breathing techniques,? and adequate rests to improve activity tolerance. TREATMENT CODE/TIME:? 60568 x 23 minutes beginning at 9:25 am
[2022-06-03] MEDS: LORazepam 0.5 MG TAB 1 MG PO (13:17)
--- NOTE | 2022-06-03 15:29 | W.PM.PROGNOT ---
Date of Service Date of service: 06/03/22 Time of Service: 15:29 Assessment and Plan Assessment and plan (1) Acute on chronic respiratory failure with hypoxia and hypercapnia: Status: Acute Assessment and plan: Clinically, due to CHF exacerbation. Improved with Trilogy and diuresis. 2L O2 per NC Continue trilogy at night and with naps. Continue diuresis. Finished zosyn Remains full code per palliative care meeting. (2) (HFpEF) heart failure with preserved ejection fraction: Status: Acute Assessment and plan: As above diuresing with torsemide and spironolactone while monitorig I/Os and daily weights. Qualifiers: Heart failure chronicity: acute on chronic Qualified Code(s): I50.33 - Acute on chronic diastolic (congestive) heart failure (3) Toxic metabolic encephalopathy: Status: Resolved Assessment and plan: Resolved with treatment of the respiratory acidosis. (4) Respiratory acidosis: Status: Acute Assessment and plan: As above (5) HCAP (healthcare-associated pneumonia): Status: Acute Assessment and plan: As above Sputum culture not obtained - nonproductive cough Blood cx with NGTD at 24 hrs. Finished antibiotics. (6) DVT prophylaxis: Status: Acute Assessment and plan: Therapeutic eliquis (7) Discharge planning issues: Status: Acute Assessment and plan: Full code. Palliative care following. Continues to require hospitalization. Plan is home on Sunday. She is still considering SNF if she doesn't feel she does adequately well at home. Subjective Subjective Patient reports: no new complaints, tolerating a regular diet, shortness of breath and afebrile; denies nausea or vomiting Exam Narrative Exam Narrative: General: Obese female, sitting up in a chair. NAD. HEENT: EOMI, MMM Cardiovascular: RRR, no murmur Lungs: Diminished breath sounds B Gastrointestinal: soft, nontender, nondistended Genitourinary: has a matamoros / blood in urine. Extremities: No edema BLEs, symmetric Objective Last Vital Signs Temp 36.9 C 06/03/22 15:17 Pulse 80 06/03/22 15:17 Resp 20 06/03/22 15:17 BP 121/73 06/03/22 15:17 Pulse Ox 92 06/03/22 15:17 Laboratory Results - last 24 hr 06/03/22 05:30 Sodium 136 Potassium 3.7 Chloride 94 L Carbon Dioxide 39.6 H Anion Gap 2.4 L BUN 27 H Creatinine 1.1 H Est GFR (CKD-EPI 2020) 56.46 Glucose 101 Calcium 9.2
[2022-06-03] MEDS: Melatonin 3 MG TAB 6 MG PO (21:24)
[2022-06-03] MEDS: Metoprolol CR 100 MG TABCR 200 MG PO (21:24)
[2022-06-04] VITALS (19 sets, daily range): BP systolic 116–157; BP diastolic 74–87; PULSE 71–80; RESP 1–24; TEMP 36.3–37.4; O2SAT 90–98
[2022-06-04] MEDS: Ipratropium 0.5 MG/2.5 ML UPD VIAL UPD ×7 (00:55→23:47)
[2022-06-04] MEDS: Levalbuterol 1.25 MG/3 ML UPD VIAL UPD ×7 (00:57→23:47)
[2022-06-04] MEDS: Furosemide 40 MG/4 ML VIAL IVP ×2 (08:44→15:55)
[2022-06-04] MEDS: Protein Nutritional Supplement 16 GM 1 OUNCE PACKET PO ×2 (08:44→19:37)
[2022-06-04] MEDS: Spironolactone 25 MG TAB PO (08:45)
[2022-06-04] MEDS: Norethindrone 5 MG TAB 10 MG PO ×2 (08:45→19:37)
[2022-06-04] MEDS: Torsemide 20 MG TAB 10 MG PO (08:45)
[2022-06-04] MEDS: Apixaban 5 MG TAB PO ×2 (08:45→19:37)
[2022-06-04] MEDS: Amiodarone 200 MG TAB PO (08:47)
[2022-06-04] MEDS: Aspirin 81 MG CHEW PO (08:47)
[2022-06-04] MEDS: Ascorbic Acid 500 MG TAB PO ×2 (08:47→19:37)
[2022-06-04] MEDS: Multivitamin w/Minerals TAB 1 TAB PO (08:47)
[2022-06-04] MEDS: Ferrous Sulfate 325 MG TAB PO ×2 (08:48→19:37)
[2022-06-04] MEDS: Tiotropium/Olodaterol 10 PUFF INHALER 2 PUFF IH (08:54)
--- NOTE | 2022-06-04 10:00 | PT.INTREAT ---
PT Notes Visit Reasons: Acute on Chronic Hypoxic Hypercapnic Respiratory Date: 06/03/2022 PRECAUTIONS: Activity as tolerated.? Now on 3L of O2/min via NC. SUBJECTIVE: Pt has just finished transferring fom EOB to recliner, pt agreed to participating with therapy. OBJECTIVE: ? PAIN: Denies ? BED MOBILITY/TRANSFERS? Sit-stand: independent ? Stand-sit: independent chair-bed: supervision ? GAIT? Assistive Device: FWW ? Weight bearing: Full Assist: SBA ? Distance: 20 feet Deviation: slow steady gait, SOB after 20', refused further standing activity after gait training THERA EX: Cervical AROM all planes [id number] Shoulder bilateral AROM all planes [id number] Chest expansion exercises/B UE forward flexion with DBE (pursed lip breathing) x 5 Chest expansion exercises/B UE horizontal abduction with DBE (pursed lip breathing) x 5 ASSESSMENT:? Continues to be limited and short of breath with mobility performance.? Will need to continue with energy conservation,? activity pacing,? and low intensity activity performance with intermittent rests. PLAN: Continue with functional mobility progression as tolerated.? Emphasize energy conservation techniques,? breathing techniques,? and adequate rests to improve activity tolerance. TREATMENT CODE/TIME:? 77189 x 23 minutes beginning at 9:37 am
[2022-06-04] MEDS: FLUoxetine 10 MG TAB PO (10:39)
[2022-06-04] MEDS: Mometasone 220 MCG 14 DOSE INHALER 1 PUFF IH ×2 (12:34→19:27)
--- NOTE | 2022-06-04 13:37 | NUR.NOTE ---
PATIENT CALLED OUT COMPLAINING OF SOB. HER O2 SATS WERE 93%. SHE STATED SHE FELT LIKE SHE HAD PHLEGM IN HER THROAT SHE COULD NOT GET OUT. PATIENT ENCOURAGED TO USE INCENTIVE SPIROMETRY, WHICH SHE STATES SHE HAS NOT BEEN USING. SHE BEGAN USING IT AND STATED SHE THOUGHT THAT MIGHT HELP. WILL CONTINUE TO MONITOR.
[2022-06-04] MEDS: Normal Saline Flush 10 ML SYR IVP ×2 (15:55→19:37)
--- NOTE | 2022-06-04 18:00 | W.PM.PROGNOT ---
Date of Service Date of service: 06/04/22 Time of Service: 18:00 Assessment and Plan Assessment and plan (1) Acute on chronic respiratory failure with hypoxia and hypercapnia: Status: Acute Assessment and plan: Clinically, due to CHF exacerbation. Improved with Trilogy and diuresis. 2L O2 per NC Continue trilogy at night and with naps. Continue diuresis. Finished zosyn Remains full code per palliative care meeting. (2) (HFpEF) heart failure with preserved ejection fraction: Status: Acute Assessment and plan: As above diuresed well with torsemide and spironolactone; to continue both meds. Qualifiers: Heart failure chronicity: acute on chronic Qualified Code(s): I50.33 - Acute on chronic diastolic (congestive) heart failure (3) Toxic metabolic encephalopathy: Status: Resolved Assessment and plan: Resolved with treatment of the respiratory acidosis. (4) Respiratory acidosis: Status: Acute Assessment and plan: As above (5) HCAP (healthcare-associated pneumonia): Status: Acute Assessment and plan: As above Sputum culture not obtained - nonproductive cough Blood cx with NGTD at 24 hrs. Finished antibiotics. (6) DVT prophylaxis: Status: Acute Assessment and plan: Therapeutic eliquis (7) Discharge planning issues: Status: Acute Assessment and plan: Full code. Palliative care following. Continues to require hospitalization. Plan is home on Sunday. She is still considering SNF if she doesn't feel she does adequately well at home. Subjective Subjective Patient reports: no new complaints, tolerating a regular diet and shortness of breath; denies nausea or vomiting Interval history since last seen: Slept well last night; used Trilogy. Exam Narrative Exam Narrative: General: Obese female, sitting up in a chair. NAD. Looks rested. HEENT: EOMI, MMM Cardiovascular: RRR, no murmur Lungs: Diminished breath sounds but clear. Gastrointestinal: soft, nontender, nondistended Genitourinary: has a matamoros / blood in urine. Extremities: No edema BLEs, symmetric Objective Last Vital Signs Temp 37.0 C 06/04/22 14:59 Pulse 78 06/04/22 14:59 Resp 20 06/04/22 14:59 BP 138/80 06/04/22 14:59 Pulse Ox 93 06/04/22 16:19
[2022-06-04] MEDS: guaiFENesin 600 MG TABCR PO (19:37)
[2022-06-04] MEDS: Metoprolol CR 100 MG TABCR 200 MG PO (21:19)
[2022-06-04] MEDS: Melatonin 3 MG TAB 6 MG PO (21:20)
[2022-06-05] VITALS (8 sets, daily range): BP systolic 117–130; BP diastolic 74–83; PULSE 69–76; RESP 1–20; TEMP 36.5–37; O2SAT 93–99
[2022-06-05] MEDS: Levalbuterol 1.25 MG/3 ML UPD VIAL UPD ×3 (03:09→12:47)
[2022-06-05] MEDS: Ipratropium 0.5 MG/2.5 ML UPD VIAL UPD ×3 (03:10→12:46)
[2022-06-05] MEDS: Mometasone 220 MCG 14 DOSE INHALER 1 PUFF IH (07:31)
[2022-06-05] MEDS: Tiotropium/Olodaterol 10 PUFF INHALER 2 PUFF IH (07:31)
--- NOTE | 2022-06-05 08:00 | PCPN_ITS ---
Date of service: 06/05/22 Time of Service: 08:01 Assessment and Plan Assessment and plan (1) Anemia: Status: Chronic (2) CHF exacerbation: Status: Acute (3) Acute on chronic respiratory failure with hypoxia and hypercapnia: Status: Acute (4) Palliative care encounter: Status: Acute Assessment and plan: I did not address CODE STATUS today. I have addressed it on 2 other occasions and Rubi Mccloudbennie has addressed it also. She remains a full code Despite the fact that Елена knows that the trilogy machine will help to keep her well and out of the hospital, she declines using it. She has no explanation for this I am glad that her granddaughter came to see her. I am also very happy that her daughter is going to be with her for the first week. Hopefully that we will get her on the right track at home. I suspect that she will be returning to the hospital sometime in the near future with another episode of CHF or COPD exacerbation Again I stressed the need for her to use the trilogy machine Thank you very much for this, Subjective Subjective Interval history since last seen: Елена is lying in bed. She has her glasses on. Her trilogy machine is by her low e. She states that she is feeling better. The plan is for her to go home today and her daughter who was an [employer] would be there for the first week. Per staff she has not been using her trilogy machine. Елена told me that she did not use it last night. Елена and I spoke about how she could improve her self-care so that she did not need to return to the hospital. She stated that what she needs to do is to use her trilogy machine. I did ask her why she was not using it. Most of what she had to say was because of some commercial that she saw on TV that said something about inhalers with the trilogy machine. I did ask respiratory who visited while I was there. Neither 1 of us understood what she was asking her referring to. Елена states that she is eating fine Exam Narrative Exam Narrative: Lying in the bed, able to sit up on her own. Very little air movement. Probably about the same as it was the last time I saw her which was last week. Her heart was regular. Mood a little apprehensive about going home Objective Last Vital Signs Temp 98.6 F 06/05/22 02:53 Pulse 70 06/05/22 07:30 Resp 18 06/05/22 07:30 BP 117/74 06/05/22 02:53 Pulse Ox 93 06/05/22 07:30
[2022-06-05] MEDS: Furosemide 40 MG/4 ML VIAL IVP (08:55)
[2022-06-05] MEDS: Normal Saline Flush 10 ML SYR IVP (09:12)
[2022-06-05] MEDS: Ferrous Sulfate 325 MG TAB PO (09:14)
[2022-06-05] MEDS: FLUoxetine 10 MG TAB PO (09:14)
[2022-06-05] MEDS: Spironolactone 25 MG TAB PO (09:14)
[2022-06-05] MEDS: Ascorbic Acid 500 MG TAB PO (09:14)
[2022-06-05] MEDS: Torsemide 20 MG TAB 10 MG PO (09:14)
[2022-06-05] MEDS: Protein Nutritional Supplement 16 GM 1 OUNCE PACKET PO (09:14)
[2022-06-05] MEDS: guaiFENesin 600 MG TABCR PO (09:15)
[2022-06-05] MEDS: Aspirin 81 MG CHEW PO (09:15)
[2022-06-05] MEDS: Multivitamin w/Minerals TAB 1 TAB PO (09:15)
[2022-06-05] MEDS: Amiodarone 200 MG TAB PO (09:15)
[2022-06-05] MEDS: Norethindrone 5 MG TAB 10 MG PO (09:15)
[2022-06-05] MEDS: Apixaban 5 MG TAB PO (09:15)
--- NOTE | 2022-06-05 13:05 | W.PM.DS.N ---
Date of service: 06/05/22 Time of Service: 13:05 DS: Diagnosis Discharge Diagnosis (1) Anemia: Status: Chronic Asessment and Plan: Stable. (2) CHF exacerbation: Status: Resolved Asessment and Plan: HFpEF diuresed well with torsemide and spironolactone (3) Acute on chronic respiratory failure with hypoxia and hypercapnia: Status: Resolved Asessment and Plan: Clinically, due to CHF exacerbation. Improved with Trilogy and diuresis. 2L O2 per NC Continue trilogy at night and with naps. Continue diuresis. Finished zosyn (4) Palliative care encounter: Status: Acute (5) HCAP (healthcare-associated pneumonia): Status: Resolved Asessment and Plan: Sputum culture not obtained - nonproductive cough Blood cx with NG. Finished antibiotics Discharge Plan Disposition Patient Disposition: Home W/Home Health Services Condition: Fair Discharge Details Reason For Visit: Acute on Chronic Hypoxic Hypercapnic Respiratory Admit Date/Time: 05/28/22 08:02 Admit Provider: Laura Mars Attending Provider: Laura Mars Primary Care Provider: [facility] [place] [facility] Hospital Course: Ms Hernandez is a 61 year old female with PMHx of chronic hypoxic hypercapnic respiratory failure due to COPD, HFpEF, hypertension, paroxysmal SVT, who was admitted into swing bed level 1 status on 05/25/22 after a lengthy admission for acute on chronic hypoxic hypercapnic repsiratory failure requiring intubation, CHF exacerbation, rapid Afib requiring initiation of amiodarone therapy, bacteremia/sepsis, concern for seizure, carotid stenosis, ischemia of her left foot with underlying BLE PAD. While in swing bed status, the patient had been noncompliant with her new trilogy device. On the evening of 05/27/22, the patient was noted to be cyanotic and progressively more and more hypoxic and somnolent with difficulty getting her back to adequate O2 sats despite increasing oxygen requirement. Because the patient was apparently saturating 70% on trilogy last night, she was placed back on BiPAP. Her imaging is consistent with pulmonary edema and mid right lunc consolidation. Her VBG demonstrates a pH of 7.28 with pCO2 of 83. She is requiring FiO2 of 70%. Her? BiPAP settings were just changed from 15/5 to? 20/5 and 40 mg of IV furosemide were given with some UOP already in the matamoros catheter. She is arousable to voice now, which she was not earlier today. She was started on zosyn empirically for PNA, though her procalcitonin is negative. Of note, the patient has been recently evaluated by palliative care where she chose to remain full code. Family updated and agrees with plan. See Diagnosis PCP follow up in 1-2 weeks Home Meds and New Rx's Prescriptions: New amiodarone [Pacerone] 200 mg Tablet 200 mg PO DAILY Qty: 30 0RF ascorbic acid (vitamin C) [Vitamin C] 500 mg Tablet 500 mg PO BID Qty: 0 0RF eszopiclone 2 mg Tablet 2 mg PO HS Qty: 30 0RF Inhaler, Assist Devices [Pocket Chamber] 1 ea miscellaneous DIRECTED Qty: 0 0RF torsemide 20 mg Tablet 20 mg PO BID Qty: 60 0RF spironolactone 25 mg Tablet 25 mg PO DAILY Qty: 30 0RF Continued multivitamin Tablet 1 tab PO DAILY Patient Comments: take 1 tablet by mouth once daily Stiolto Respimat 2.5-2.5 mcg/actuation Mist 2 puff INHALATION DAILY lorazepam 0.5 mg tablet 0.5 mg PO BID PRN PRN Patient Comments: TAKE 1 TABLET BY MOUTH EVERY DAY NEEDED FOR PANIC nystatin [Nystop] 100,000 unit/gram powder 1 applic TOPICAL DIRECTED Patient Comments: APPLY A SMALL AMOUNT TO AFFECTED AREA 2-3 TIMES A DAY UNTIL HEALED Rx Instructions: APPLY A SMALL AMOUNT TO SKIN 2-3 TIMES PER DAY UNTIL HEALED fluticasone propionate [Flovent HFA] 220 mcg/actuation HFA aerosol inhaler 1 puff INHALATION BID Patient Comments: INHALE 1 PUFF BY MOUTH TWICE DAILY WITH STIOLTO metoprolol succinate 100 mg Tablet Extended Release 24 Hr 200 mg PO HS Qty: 60 0RF ipratropium bromide 0.02 % Solution 0.25 mg UPD BID Qty: 60 0RF fluoxetine 20 mg Capsule 10 mg PO DAILY acetaminophen 325 mg Tablet 650 mg PO PRN PRN ferrous sulfate 325 mg (65 mg iron) tablet 1 tab PO DAILY Patient Comments: Take 1 tablet by mouth once a day Discontinued levalbuterol HCl 1.25 mg/3 mL Solution For Nebulization 1.25 mg UPD BID Qty: 60 0RF spironolactone 50 mg Tablet 50 mg PO 1XD furosemide 80 mg tablet 1 tab BID Patient Comments: Take 1 tablet by mouth twice a day dyslexia teacher and 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 ipratropium-albuterol 0.5 mg-3 mg(2.5 mg base)/3 mL solution for nebulization 3 ml INHALATION BID PRN Patient Comments: Inhale 3 ml as directed twice a day as needed risperidone 0.25 mg tablet 1 tab PO HS Patient Comments: Take 1 tablet by mouth at bedtime pregabalin 25 mg capsule 1 - 2 cap PO BID Patient Comments: Take 1-2 capsule by mouth twice a day prednisone 20 mg Tablet 40 mg PO DAILY Qty: 6 0RF No Action losartan 25 mg tablet 1 tab PO DAILY Patient Comments: TAKE ONE TABLET BY MOUTH EVERY DAY albuterol sulfate [ProAir HFA] 90 mcg/actuation HFA aerosol inhaler 2 inh INHALATION Q4H PRN PRN Patient Comments: Inhale 2 puff by mouth every four to six hours as needed pantoprazole 40 mg tablet,delayed release (DR/EC) 1 tab PO 0730 Patient Comments: TAKE ONE TABLET BY MOUTH ONCE DAILY AT 730 IN THE MORNING capsaicin 0.025 % cream 1 applic TOPICAL BID Patient Comments: Apply as directed to affected area twice a day to feet for nerve pain ondansetron 4 mg tablet,disintegrating 1 tab PO Q6H PRN (Reason: Nausea) Patient Comments: TAKE ONE TABLET BY MOUTH EVERY 6 HOURS NEEDED FOR NAUSEA Xarelto 20 mg tablet 1 tab PO DAILY Patient Comments: Take 1 tablet by mouth once a day magnesium oxide 400 mg (241.3 mg magnesium) tablet 500 mg PO HS norethindrone acetate 5 mg tablet 5 mg PO BID Discharge Instructions Instructions: Heart Failure (DC) Additional Instructions: 1) Weigh yourself daily 2) Weigh yourself at the same time every day ? before breakfast is best. 3) Use the same scale all the time 4) Wear the same amount of clothes when you weigh yourself 5) Empty your bladder before weighing 6) Record your weight on a daily record 7) The weight at which there is just a little bit of swelling in the ankles at the end of the day is your ideal weight-try and maintain it 8) When taking diuretics avoid drinking too much in the way of fluids, even if your mouth is dry and you feel thirsty. This could counter the effect of the diuretic and dilute the body?s salts causing weakness and confusion. 9) You should drink no more than 2000 ml (8 glasses or cups) of fluid per day10) If your weight goes up by more than 2-3 pounds (1.0 kg) in one day or by 5 pounds (2.5 kg) over a week take an extra torsemide and call your nurse or doctor. Stand Alone Forms: Nursing Discharge Form Referrals: [facility] [Primary Care Provider] - 06/12/22 2:10 pm Activity:: Activity as Tolerated Equipment/Supplies:: No Equipment Needed Diet:: diabetic diet Discharge Orders Discharge Orders: Discharge Order (Routine); Ordered 06/05/22 Ordered By: Ashish Meneses Discharge Data Discharge Date/Time-TO BE ENTERED AT DEPARTURE: 06/05/22 14:26 DS: Summary Time Spent with Patient providing and/or coordinating discharge services: Greater than 30 minutes Status at Discharge Functional status at discharge: uses cane/walker Overall status at discharge: patient is back to baseline Mental Status: mental status grossly normal Speech and Movement: speech and movement normal Mood: euthymic mood Affect: blunted Exam Narrative Exam Narrative: General: Obese female, sitting up in a chair. NAD. Looks rested. HEENT: EOMI, MMM Cardiovascular: RRR, no murmur Lungs: Diminished breath sounds but clear. Gastrointestinal: soft, nontender, nondistended Genitourinary: has a matamoros / blood in urine. Extremities: No edema BLEs, symmetric Psych Mental Status: mental status grossly normal Speech and Movement: speech and movement normal Mood: euthymic mood Affect: blunted DS: Data Vitals/I&O Vitals and I&O: Vital Signs Temperature 36.6 C 06/05/22 11:25 Temperature Source Tympanic 06/05/22 11:25 Pulse 70 06/05/22 12:47 Pulse Rhythm Regular 06/05/22 09:25 Pulse 74 05/31/22 10:50 Respiratory Rate 16 06/05/22 12:47 Respiratory Effort 06/05/22 09:25 Respiratory Depth Normal 06/05/22 09:25 Respiratory Pattern Normal 06/05/22 09:25 Blood Pressure 130/83 06/05/22 11:25 Blood Pressure Mean 76 05/31/22 13:07 Blood Pressure Position Sitting 05/31/22 04:10 Pulse Oximetry 99 06/05/22 12:47 Oxygen Delivery Method Nasal Cannula 06/05/22 12:47 Oxygen Flow Rate 2.5 06/05/22 12:47 Fraction of Inspired Oxygen (FIO2) 30 06/05/22 12:47 Pain Level 0 06/05/22 11:25 Comment 06/02/22 23:30 Intake & Output 06/04/22 06/05/22 06/05/22 23:59 11:59 23:59 Intake Total 110 / 120 360 / 360 Output Total 1400 / 1700 550 / 800 250 / 800 Balance -1290 / -1580 -190 / -440 -250 / -440 Weight 74.3 kg Intake: IV Oral 100 / 100 360 / 360 Output: Urine 1400 / 1700 550 / 800 250 / 800 Other: Urine Color Uribe Yellow Yellow Urine Appearance Clear Hematuria Clear Urine Odor Normal Comment UNABLE TO MEASURE URINE AMOUNT, URINE IN THE COMMODE IS MIXED IN WITH LIQUID STOOL. pt urianted while having a BM Stool Size Moderate Small Stool Characteristics Liquid Soft Brown Liquid Voiding Methods Bedside Commode Bedside Commode Bedside Commode Data Completed and Pending Labs on day of discharge: Preliminary micro results at discharge 06/03/22 10:22 Sputum Culture - Preliminary Sputum Normal Marielle PFSH All Active Problems (Updated 07/14/22 @ 06:48 by Laura Mars MD) RSV infection (Acute) Palliative care encounter (Acute) Paroxysmal atrial fibrillation with RVR (Acute) RSV (respiratory syncytial virus infection) (Acute) Renal insufficiency, mild (Acute) Anemia (Chronic) Leucocytosis (Acute) Acute and chronic respiratory failure (Acute) Carotid artery occlusion (Acute) Peripheral arterial occlusive disease (Chronic) Palliative care encounter (Acute) Ischemia of foot (Acute) PAF (paroxysmal atrial fibrillation) (Acute) Respiratory failure with hypoxia and hypercapnia (Acute) SOB (shortness of breath) (Acute) Hypercarbia (Acute) Vaginal bleeding (Acute) Hyponatremia (Acute) Pulmonary hypertension (Chronic) Hypoxia (Chronic) (HFpEF) heart failure with preserved ejection fraction (Acute) Anxiety (Chronic) Dyspnea (Acute) Acute anemia (Acute) Postmenopausal bleeding (Acute) Dyspnea on exertion (Acute) S/P left inguinal hernia repair (Acute) 01/21/19 Dr Odette Cormier, left Left inguinal hernia (Acute) Incarcerated inguinal hernia, unilateral (Acute) Small bowel obstruction (Acute) Dehydration (Acute) Hypertension (Chronic) Change in mental status (Acute) Cardiomyopathy (Chronic) Iron deficiency anemia due to chronic blood loss (Chronic) COPD (chronic obstructive pulmonary disease) (Chronic) Medical History Alcohol abuse History of alcohol abuse, reports sober since 2013 Alcoholic gastritis Former smoker Hyponatremia Mood disorder with psychosis Neck pain on right side Palliative care patient Pneumonia Post-menopausal bleeding Pulmonary hypertension Respiratory failure with hypoxia Uterine mass Not candidate for surgery at [facility] or [facility].08/10/21. Had partial uterine artery embolization. Unable to complete 08/17 hypoxia. 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 Daughter Evonne Hernandze Do you feel safe at home: Yes Do you feel safe in your relationship?: Yes
--- NOTE | 2022-06-05 13:33 | PDOC.HHF2F_ITS ---
Home Health Certification Home Health Certification: 1. Encounter Date and Reason I certify that Deepthi Hernandez was seen by Ashish Meneses MD on 06/05/22 and that I had a [id number] encounter with this patient that meets the physician face to face encounter requirements. 2. Clinical Findings Supporting Skilled Need and Homebound Status I certify that home health services are medically necessary, include either intermittent nursing home and/or physical/speech therapy, and that this pa tient is homebound in that absences from the home require considerable and taxing effort and are infrequent or of short duration, or are attributable to the need to receive medical care. [X] (a) Attached documentation from encounter provides clinical findings supporting skilled need and homebound status (including what assistance patient requires to leave the home). The encounter with the patient was in whole, or in part, for the following medical condition, which is the primary reason for home health care: Acute on Chronic Hypoxic Hypercapnic Respiratory Intermediate:To monitor patient's medical condition, instruct on medication regimen and signs and symptoms to report. Patient is at risk of decompensation and /or adverse events due to recent hospitalization. Physical Therapy:To restor patient's ability to ambulate independently and to increase strength and endurance for safe ambulation following a lengthy hospitalization. Occupational Therapy: Evaluate and treat for patient's inability to perform her ADLs/IADLs/self-care Speech Therapy: FREIGHT TALLIER: Assist with community resources. Homebound:Patient is unable to leave home without assistance and ambulation is severely limited due to pain, decreased strength and endurance. 3. Certification and Authentication I certify that I composed the above information based on my clinical judgement relating to this patient's medical condition and, if applicable, clinical findings communicated to me by the NPP or inpatient physician who performed the Home Health Referral. All further orders will be obtained through [facility] ([facility] Based Physician - PCP)
--- NOTE | 2022-06-05 15:39 | CMDISCH_ITS ---
- If Service Date Differs Date of service: 06/05/22 Time of Service: 15:39 LACE Index Scoring Tool - Questions: Length of Stay (in days): 14 or more Acuity (Admit via E.D.?): Yes Comorbidities: Congestive Heart Failure, Chronic Pulmonary Disease E.D. Visits: 9 - Answers: Total Score: 19 Risk of Readmission: High Risk Care Management Discharge Reason for Hospitalization: Acute on chronic hypoxic hypercapnic respiratory failure Discharge Plan: Елена returned home today with new orders for RN, PT, OT, ETYMOLOGY TEACHER. She has a new Trilogy through [facility]. [facility] will meet her at home to provide education to her and her family. She has O2 at baseline, and her daughter brought a tank in for her to transport home with. Her daughter and will drive her home via private vehicle. Her daughter will be staying with her for a while in order to provide a smooth transition. She will follow up with her PCP and discharge plan of care. She is happy to be going home. Patient/Family Education Needs: Review discharge instructions and limitation, discussion of self care needs inlcuding ask me three and goals of care. Services Needed at Discharge: Home Health Care Services (RN, PT, OT, ETYMOLOGY TEACHER), Oxygen Therapy ([facility]- Trilogy)
== END 2022-06-05 14:26 | disposition home health service (06) | DRG 291 ==
LOC: ICU 05-31 09:53 → MS 05-31 16:25
PROVIDERS: Family Medicine; Admitting Provider Internal Medicine; PCP Family Medicine; Visit Provider Internal Medicine
DX: I11.0 Hypertensive heart disease with heart failure (principal); G92.8 Other toxic encephalopathy; J18.9 Pneumonia, unspecified organism; J96.21 Acute and chronic respiratory failure with hypoxia; I50.33 Acute on chronic diastolic (congestive) heart failure; J96.22 Acute and chronic respiratory failure with hypercapnia; J44.0 Chronic obstructive pulmonary disease with (acute) lower respiratory infection; I47.1 Supraventricular tachycardia; E87.1 Hypo-osmolality and hyponatremia; I42.9 Cardiomyopathy, unspecified; Y95 Nosocomial condition; I73.9 Peripheral vascular disease, unspecified; I65.29 Occlusion and stenosis of unspecified carotid artery; I48.0 Paroxysmal atrial fibrillation; I27.20 Pulmonary hypertension, unspecified; F41.9 Anxiety disorder, unspecified; N95.0 Postmenopausal bleeding; D50.0 Iron deficiency anemia secondary to blood loss (chronic); N85.9 Noninflammatory disorder of uterus, unspecified; Z87.891 Personal history of nicotine dependence; E66.9 Obesity, unspecified; Z68.32 Body mass index [BMI] 32.0-32.9, adult
CPT/HCPCS: 36415; 36592; 76942; 80048; 80076; 82805; 87081; 87493; 87637; 94640; 97110; 97162; 97530; 81003; 81015; 83735; 84100; 84484; 85025; 87070; 87205; 94660; 99232; 99233; 99291; J1940; J2543; J3470; J3480; J3490; J7614; J7644

== ENCOUNTER 2022-06-22 15:05 | Outpatient (REF) | payer MEDICARE, SELFPAY ==
[2022-06-22 16:04] LABS: ALT 39 U/L (14-59); AST 19 U/L (15-37); Albumin 3.3 g/dL (3.4-5.0); Alkaline Phosphatase 65 U/L (46-116); Anion Gap 2.2 mmol/L (3-11); BUN 12 mg/dL (7-18); Bilirubin, Total 0.3 mg/dL (0.2-1.0); CO2 37.8 mmol/L (21.0-32.0); Calcium 8.8 mg/dL (8.5-10.1); Chloride 96 mmol/L (98-107); Glucose 108 mg/dL (74-106); Magnesium 1.9 mg/dL (1.8-2.4); Potassium 4.3 mmol/L (3.5-5.1); Sodium 136 mmol/L (136-145); Total Protein 6.3 g/dL (6.4-8.2)
== END 2022-06-22 15:06 | disposition home or self-care (01) ==
LOC: NCHCN 15:05
PROVIDERS: PCP Family Medicine; Visit Provider Family Medicine
DX: E83.42 Hypomagnesemia (principal); R74.8 Abnormal levels of other serum enzymes; I50.89 Other heart failure
CPT/HCPCS: 80053; 83735

== ENCOUNTER 2022-07-06 04:19 | Inpatient (IN) | payer MEDICARE, SELFPAY ==
[2022-07-06] VITALS (144 sets, daily range): BP systolic 76–173; BP diastolic 44–138; PULSE 63–150; RESP 3–40; TEMP 36.5–37.1; O2SAT 78–99
--- NOTE | 2022-07-06 04:15 | DI.RAD_ITS ---
Exam(s) XR PORTABLE CHEST AP EXAM: XR PORTABLE CHEST AP CLINICAL HISTORY: shortness of breath TECHNIQUE: 2D digital imaging was performed. COMPARISON: CR,XR XR PORTABLE CHEST AP from 05/14/2022 CR XR PORTABLE CHEST AP from 05/15/2022 CR,XR XR PORTABLE CHEST AP from 05/27/2022 CR,XR XR PORTABLE CHEST AP from 05/28/2022 FINDINGS: Leads overlie the chest. LUNGS: Mildly increased interstitial markings, likely chronic, otherwise clear. No pleural abnormali ty seen. HEART: Normal size. AORTA: Normal diameter. Calcification at arch. BONES: Scoliosis and degenerative changes. Soft tissues: Unremarkable. IMPRESSION: No acute findings. DATA REPOSITORY: RADIATION DOSE DELIVERED:
--- NOTE | 2022-07-06 04:15 | RT.EKG_ITS ---
APPROVED REPORT Exam: Resting ECG Reason for Exam: short of breath Patient Location: E HR:74 bpm ECG Measurements Heart Rate 74 AXIS TN 200 P 57 QRSd 97 QRS -29 QT 386 T 52 QTc 428 Conclusion Sinus rhythm...normal P axis, V-rate 60- 99
--- NOTE | 2022-07-06 04:30 | W.ED.GENAD ---
Discharge Plan Disposition Patient Disposition: Admit to [facility] Condition: Stable Discharge Details Chief Complaint: SOB Clinical Impression: Hypoxia, Chronic bronchitis with COPD (chronic obstructive pulmonary disease) Primary Care Provider: [facility] ED Provider: Luiz Chery Home Meds and New Rx's Prescriptions: No Action multivitamin Tablet 1 tab PO DAILY Label Comments: take 1 tablet by mouth once daily Stiolto Respimat 2.5-2.5 mcg/actuation Mist 2 puff INHALATION DAILY lorazepam 0.5 mg tablet 0.5 mg PO BID PRN PRN Label Comments: TAKE 1 TABLET BY MOUTH EVERY DAY NEEDED FOR PANIC nystatin [Nystop] 100,000 unit/gram powder 1 applic TOPICAL DIRECTED Label Comments: APPLY A SMALL AMOUNT TO AFFECTED AREA 2-3 TIMES A DAY UNTIL HEALED Rx Instructions: APPLY A SMALL AMOUNT TO SKIN 2-3 TIMES PER DAY UNTIL HEALED fluticasone propionate [Flovent HFA] 220 mcg/actuation HFA aerosol inhaler 1 puff INHALATION BID Label Comments: INHALE 1 PUFF BY MOUTH TWICE DAILY WITH STIOLTO metoprolol succinate 100 mg Tablet Extended Release 24 Hr 200 mg PO HS Qty: 60 0RF amiodarone [Pacerone] 200 mg Tablet 200 mg PO DAILY Qty: 30 0RF ascorbic acid (vitamin C) [Vitamin C] 500 mg Tablet 500 mg PO BID Qty: 0 0RF eszopiclone 2 mg Tablet 2 mg PO HS Qty: 30 0RF Inhaler, Assist Devices [Pocket Chamber] 1 ea miscellaneous DIRECTED Qty: 0 0RF torsemide 20 mg Tablet 20 mg PO BID Qty: 60 0RF spironolactone 25 mg Tablet 25 mg PO DAILY Qty: 30 0RF ipratropium bromide 0.02 % Solution 0.25 mg UPD BID Qty: 60 0RF fluoxetine 20 mg Capsule 10 mg PO DAILY acetaminophen 325 mg Tablet 650 mg PO PRN PRN ferrous sulfate 325 mg (65 mg iron) tablet 1 tab PO DAILY Label Comments: Take 1 tablet by mouth once a day losartan 25 mg tablet 1 tab PO DAILY Label Comments: TAKE ONE TABLET BY MOUTH EVERY DAY albuterol sulfate [ProAir HFA] 90 mcg/actuation HFA aerosol inhaler 2 inh INHALATION Q4H PRN PRN Label Comments: Inhale 2 puff by mouth every four to six hours as needed pantoprazole 40 mg tablet,delayed release (DR/EC) 1 tab PO 0730 Label Comments: TAKE ONE TABLET BY MOUTH ONCE DAILY AT 730 IN THE MORNING capsaicin 0.025 % cream 1 applic TOPICAL BID Label Comments: Apply as directed to affected area twice a day to feet for nerve pain ondansetron 4 mg tablet,disintegrating 1 tab PO Q6H PRN (Reason: Nausea) Label Comments: TAKE ONE TABLET BY MOUTH EVERY 6 HOURS NEEDED FOR NAUSEA Xarelto 20 mg tablet 1 tab PO DAILY Label Comments: Take 1 tablet by mouth once a day magnesium oxide 400 mg (241.3 mg magnesium) tablet 500 mg PO HS norethindrone acetate 5 mg tablet 5 mg PO BID Medical Decision Making 61 yo female with hx of HFpEF, copd, who comes in with ems with complaint of shortness of breath worsening since yesterday. She states she went to bed feeling short of breath and then woke up severely short of breath. She called ems who found her tachypneic and speaking in 1-2 word sentences. She was 70% on room air when they arrived. They gave her 10mg IV dexamethasone and a duoneb en route and on arrival states she feels better but is still only speaking in 3-4 word sentences and tachypneic. She denies fevers, has had a cough, denies chest pain. She has diffuse wheezing bilaterally at the apices and diminished at the bases bilaterally. No leg swelling or calf tenderness. Her exam and history are most consistent with copd exacerbation, will continue nebs and obtain ekg, troponin, cbc, cmp and probnp. Given her history of chf will also give a dose of lasix to see if this helps her symptoms. Given her work of breathing will place on bipap as well labs show no significant changes from baseline, xray on my read unremarkable awaiting vrad read. She is feeling better now carrying on a full conversation, will trial off bipap. Will order ceftriaxone as well for her copd exacerbation requiring bipap. pt doing well off bipap, still has diffuse wheezing, 92% on 3L NC, will discuss with hospitalist about admission Differential Diagnosis Differential Diagnosis: copd, chf, anemia Medical Records Medical records reviewed: Yes I reviewed the patient's medical records. Imaging Data Radiologic Study: Attestation: I personally reviewed and interpreted this imaging study as follows: Imaging: X-Ray Radiologist's impression: no Lab Data Lab results reviewed: Yes I reviewed the patient's lab results. ECG Data Attestation: I personally reviewed and interpreted this ECG (s) as follows: Prior ECG tracings: not available for review Interpretation: sinus rhythm, rate of 74 pr 200, no acute stt wave ischemic findings HPI General Mode of arrival: EMS. Date/Time Provider Initiated Documentation: 07/06/22 04:24. Information obtained by: patient and EMS. History of Present Illness 61 year old F presents to the emergency department with the chief complaint of shortness of breath, described as moderate, Patient started experiencing this day(s) (1) and it has been constant. No relieving factors improve symptom(s), No exacerbating factors reported . Patient notes cough. Patient did receive the following treatments prior to arrival, none Related Data Home Medications Medication Instructions Recorded Confirmed fluoxetine 20 mg capsule 10 mg PO DAILY 01/14/19 07/06/22 acetaminophen 325 mg tablet 650 mg PO PRN PRN 01/21/19 06/20/22 multivitamin 1 tab PO DAILY 11/17/19 07/06/22 tiotropium 2.5 mcg-olodaterol 2.5 2 puff inhalation DAILY 09/15/20 07/06/22 mcg/actuation mist for inhalation (Stiolto Respimat) fluticasone propionate 220 1 puff inhalation BID 07/26/21 07/06/22 mcg/actuation HFA aerosol inhaler (Flovent HFA) lorazepam 0.5 mg tablet 0.5 mg PO BID PRN PRN 07/26/21 07/06/22 nystatin 100,000 unit/gram topical 1 applic topical DIRECTED 07/26/21 07/06/22 powder (Nystop) metoprolol succinate 100 mg 200 mg PO HS #60 tabs 07/29/21 07/06/22 tablet,extended release 24 hr ferrous sulfate 325 mg (65 mg 1 tab PO DAILY 05/10/22 07/06/22 iron) tablet Inhaler, Assist Devices [Pocket 1 ea miscellaneous DIRECTED ##0 06/05/22 07/06/22 Chamber] amiodarone 200 mg tablet (Pacerone) 200 mg PO DAILY #30 tabs 06/05/22 07/06/22 ascorbic acid (vitamin C) 500 mg 500 mg PO BID #0 tabs 06/05/22 07/06/22 tablet (Vitamin C) eszopiclone 2 mg tablet 2 mg PO HS #30 tabs 06/05/22 07/06/22 ipratropium bromide 0.02 % 0.25 mg (1.25 mL) UPD BID #60 mL 06/05/22 07/06/22 solution for inhalation spironolactone 25 mg tablet 25 mg PO DAILY #30 tabs 06/05/22 07/06/22 torsemide 20 mg tablet 20 mg PO BID #60 tabs 06/05/22 07/06/22 albuterol sulfate 90 mcg/actuation 2 inh inhalation Q4H PRN PRN 07/06/22 07/06/22 aerosol inhaler (ProAir HFA) capsaicin 0.025 % topical cream 1 applic topical BID 07/06/22 07/06/22 losartan 25 mg tablet 1 tab PO DAILY 07/06/22 07/06/22 magnesium oxide 400 mg (241.3 mg 500 mg PO HS 07/06/22 07/06/22 magnesium) tablet norethindrone acetate 5 mg tablet 5 mg PO BID 07/06/22 07/06/22 ondansetron 4 mg disintegrating 1 tab PO Q6H PRN Nausea 07/06/22 07/06/22 tablet pantoprazole 40 mg tablet,delayed 1 tab PO 0730 07/06/22 07/06/22 release rivaroxaban 20 mg tablet (Xarelto) 1 tab PO DAILY 07/06/22 07/06/22 Previous Rx's Medication Instructions Recorded metoprolol succinate 100 mg 200 mg PO HS #60 tabs 07/29/21 tablet,extended release 24 hr Inhaler, Assist Devices [Pocket 1 ea miscellaneous DIRECTED ##0 06/05/22 Chamber] amiodarone 200 mg tablet (Pacerone) 200 mg PO DAILY #30 tabs 06/05/22 ascorbic acid (vitamin C) 500 mg 500 mg PO BID #0 tabs 06/05/22 tablet (Vitamin C) eszopiclone 2 mg tablet 2 mg PO HS #30 tabs 06/05/22 ipratropium bromide 0.02 % 0.25 mg (1.25 mL) UPD BID #60 mL 06/05/22 solution for inhalation spironolactone 25 mg tablet 25 mg PO DAILY #30 tabs 06/05/22 torsemide 20 mg tablet 20 mg PO BID #60 tabs 06/05/22 Allergies Allergy/AdvReac Type Severity Reaction Status Date / Time No Known Allergies Allergy Verified 07/06/22 05:46 General Stated Complaint: SOB MAYA: 2 Review of Systems All systems reviewed & are unremarkable except as noted in HPI and below Constitutional Constitutional: Denies chills and Denies fever(s) Cardiovascular Cardiovascular: Denies chest pain Gastrointestinal Gastrointestinal: Denies abdominal pain, Denies nausea and Denies vomiting Musculoskeletal Musculoskeletal: Denies joint swelling PFSH All Active Problems (Updated 07/06/22 @ 06:11 by Luiz Chery MD) Anemia (Chronic) Leucocytosis (Acute) Acute and chronic respiratory failure (Acute) Carotid artery occlusion (Acute) Peripheral arterial occlusive disease (Chronic) Anemia (Chronic) Palliative care encounter (Acute) Ischemia of foot (Acute) PAF (paroxysmal atrial fibrillation) (Acute) Respiratory failure with hypoxia and hypercapnia (Acute) SOB (shortness of breath) (Acute) Hypercarbia (Acute) Vaginal bleeding (Acute) Hyponatremia (Acute) Pulmonary hypertension (Chronic) Hypoxia (Chronic) (HFpEF) heart failure with preserved ejection fraction (Acute) Anxiety (Chronic) Dyspnea (Acute) Acute anemia (Acute) Postmenopausal bleeding (Acute) Dyspnea on exertion (Acute) S/P left inguinal hernia repair (Acute) 01/21/19 Dr Odette Cormier, left Left inguinal hernia (Acute) Incarcerated inguinal hernia, unilateral (Acute) Small bowel obstruction (Acute) Dehydration (Acute) Hypertension (Chronic) Change in mental status (Acute) Cardiomyopathy (Chronic) Iron deficiency anemia due to chronic blood loss (Chronic) Chronic bronchitis with COPD (chronic obstructive pulmonary disease) (Acute) COPD (chronic obstructive pulmonary disease) (Chronic) Medical History Alcohol abuse History of alcohol abuse, reports sober since 2013 Alcoholic gastritis Former smoker Hyponatremia Mood disorder with psychosis Neck pain on right side Palliative care patient Pneumonia Post-menopausal bleeding Pulmonary hypertension Respiratory failure with hypoxia Uterine mass Not candidate for surgery at [facility] or [facility].08/10/21. Had partial uterine artery embolization. Unable to complete 2/2 hypoxia. 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 Daughter Evonne Hernandez Do you feel safe at home: Yes Do you feel safe in your relationship?: Yes Exam Const General: other (dyspneic) Orientation: alert HENMT Head: normal to inspection Ears: external ears normal General nose exam: external nose normal Mouth: moist mucous membranes Eyes General: appearance normal, both eyes and all related structures Neck Neck: normal visual inspection Resp Effort & Inspection: audible wheezes and pursed lip breathing Auscultation: wheezes Cardio Rate: regular rate Heart Sounds: no murmurs Skin General skin exam: no rashes or lesions noted Neuro General: patient alert and patient oriented x3 Extrem General: normal to inspection Psych Mental Status: mental status grossly normal Course Vital Signs Vital signs: Vital Signs Pulse 86 07/06/22 04:22 Respiratory Rate 32 H 07/06/22 04:22 Pulse Oximetry 85 L 07/06/22 04:22 Pulse 86 07/06/22 04:22 Respiratory Rate 32 H 07/06/22 04:22 Pulse Oximetry 85 L 07/06/22 04:22 Oxygen Delivery Method Non-Rebreather 07/06/22 04:22 Pain Level 0 07/06/22 04:22
[2022-07-06 04:41] LABS: Abs Immature Grans 0.09 10^3/uL (0.0-0.06); Absolute Basophil Count 0.07 10^3/uL (0.0-0.2); Absolute Eosinophil Count 0.04 10^3/uL (0.0-0.7); Absolute Lymphocyte Count 0.64 10^3/uL (1.2-3.4); Absolute Monocyte Count 1.39 10^3/uL (0.1-0.8); Absolute Neutrophil Count 8.56 10^3/uL (1.2-6.7); Basophils % 0.6; Eosinophils % 0.4; HCT 43.4 % (36.0-46.0); HGB 12.9 g/dL (11.2-15.7); Immature Grans % 0.8; Lymphocytes % 5.9; MCH 26.8 pg (27.0-33.0); MCHC 29.7 % (32.0-36.0); MCV 90 fL (80-95); MPV 9.3 fL (8.0-11.0); Monocytes % 12.9; Neutrophils % 79.4; Platelet Count 324 10^3/uL (130-400); RBC 4.81 10^6/uL (3.93-5.22); RDW 16.1 % (11.7-14.6); RDW-SD 53.7 fL; WBC 10.79 10^3/uL (4.4-10.8)
[2022-07-06] MEDS: Albuterol/Ipratropium 3 ML UPD VIAL UPD ×2 (04:53→05:59)
[2022-07-06] MEDS: Furosemide 40 MG/4 ML VIAL IVP (04:54)
[2022-07-06 04:59] LABS: Prothrombin Time 10.2 sec (9.3-11.0)
[2022-07-06 05:04] LABS: ALT 27 U/L (14-59); AST 26 U/L (15-37); Alkaline Phosphatase 69 U/L (46-116); Anion Gap 1.9 mmol/L (3-11); BUN 14 mg/dL (7-18); Bilirubin, Total 0.3 mg/dL (0.2-1.0); CO2 39.1 mmol/L (21.0-32.0); CREATININE 1.1 mg/dL (0.55-1.02); Calcium 9.2 mg/dL (8.5-10.1); Chloride 91 mmol/L (98-107); Estimated GFR 56.46 (mL/min/1.73m2); Glucose 128 mg/dL (74-106); Magnesium 1.9 mg/dL (1.8-2.4); NT-proBNP 1781 pg/mL (<300); Potassium 4.9 mmol/L (3.5-5.1); Sodium 132 mmol/L (136-145); Troponin I < 50 ng/L (<or=60)
[2022-07-06 05:31] LABS: Bilirubin Negative (Negative); Blood Trace-intact (Negative); Clarity Sl Cloudy (Clear); Glucose Negative (Negative); Ketones Negative (Negative); Leukocyte Esterase Negative (Negative); Nitrite Negative (Negative); Specific Gravity >= 1.030 (1.005-1.025); Urobilinogen 0.2 EU/dL (Up TO 0.2); pH 5.5 (5-8)
[2022-07-06 05:39] LABS: Bacteria Negative HPF (Negative); C & S Indicated? No; Casts 3-5 Hyaline LPF (Negative); Crystals Negative HPF (Negative); Epithelial Cells Few HPF (Negative); Mucus Negative (Negative); WBC Negative HPF (0-5)
--- NOTE | 2022-07-06 05:44 | DI.VRAD_ITS ---
PROCEDURE INFORMATION: Exam: XR Chest Exam date and time: 07/06/2022 5:03 AM Age: 61 years old Clinical indication: Shortness of breath; Additional info: SOB TECHNIQUE: Imaging protocol: Radiologic exam of the chest. Views: 1 view. COMPARISON: 1. XR PORTABLE CHEST AP 05/28/2022 2:19 AM 2. XR PORTABLE CHEST AP 05/27/2022 2:30 PM FINDINGS: Lungs: Significant interval improvement in diffuse interstitial prominence since 05/28/2022. There is some residual mild interstitial prominence which could be chronic. There is no new consolidation. The pulmonary vasculature is normal in caliber. Pleural spaces: Unremarkable. No pleural effusion or pneumothorax. Heart/Mediastinum: Heart size is normal. The thoracic aorta is slightly tortuous. Cardiomediastinal contours are stable. Bones/joints: Degenerative changes. No acute osseous abnormality. IMPRESSION: No active disease in the chest. Dictated and Authenticated by: Chanel Ring MD. Ordering:LESLY Dee MD
[2022-07-06 05:52] LABS: COVID-19 PCR Negative (Negative); Influenza A PCR Negative (Negative); Influenza B PCR Negative (Negative)
--- NOTE | 2022-07-06 06:01 | RESPIRATORY ---
Pt has called to see if he can bring in her Trilogy WES machine sometimes later today. Pt still in ED awaiting admission. Pt's own Trilogy AVAPS-AE Breath Rate: Auto Target Vt: 350-650ml Max Pressure: 20 PS min: 5 / max: 15 EPAP min: 5 / max: 10 [employer] AirFit For Her F20 mask Size: Medium O2 bleed in: 2-3L DME for O2: [employer] DME Trilogy: [employer]
[2022-07-06 06:02] LABS: RSV PCR Positive (Negative); Source Nasopharynx
[2022-07-06] MEDS: cefTRIAXone 2 GM/50 ML BAG IVPB (06:05)
--- NOTE | 2022-07-06 06:24 | HPE_ITS ---
Date of service: 07/06/22 Time of Service: 06:24 Assessment and Plan Assessment and plan (1) Acute and chronic respiratory failure: Status: Acute Assessment and plan: Acute on chronic respiratory failure secondary to COPD exacerbation brought on by RSV infeciton. Respiratory status improved significantly after BIPAP in the ED (she is on home trilogy-type respirator) and is now off/on CPAP, which is actually close to her baseline. Given this, I think she is okay for the floor, but given her presentation I agree she should be admitted and treated for COPD rather than treated at home. She was given dexamethasone in the field, will continue this as her IV steroid. Doxycycline for COPD rather than azithromycin given cardiac disease (2) COPD (chronic obstructive pulmonary disease): Status: Chronic Assessment and plan: As above, continue outpatient ICS/LABA/LAMA. Qualifiers: COPD type: COPD with acute exacerbation Qualified Code(s): J44.1 - Chronic obstructive pulmonary disease with (acute) exacerbation (3) Postmenopausal bleeding: Status: Acute Assessment and plan: Controlled on oral progesterone, continue, no recent bleding. (4) Hyponatremia: Status: Acute Assessment and plan: Mild, not bad compared to her baseline. Monitor. (5) Renal insufficiency, mild: Status: Acute Assessment and plan: near her baseline (6) (HFpEF) heart failure with preserved ejection fraction: Status: Acute Assessment and plan: BNaP is lower than recent numbers, CXR not c/w active CHF, though she did get additional torsemide as outpatient. Continue daily torsemide dose. Qualifiers: Heart failure chronicity: acute on chronic Qualified Code(s): I50.33 - Acute on chronic diastolic (congestive) heart failure (7) PAF (paroxysmal atrial fibrillation): Status: Acute Assessment and plan: She is in sinus now. Continue amiodarone and metoprolol, rivaroxaban for stroke prevention. (8) Iron deficiency anemia due to chronic blood loss: Status: Chronic Assessment and plan: Normalized on oral iron, continue for now. (9) Mood disorder with psychosis: Assessment and plan: mood has been stable overall, no psychosis (this was seen in setting of hypoxia), but ongoing anxiety. continue prn lorazepam. (10) DVT prophylaxis: Status: Resolved Assessment and plan: on DOAC chronically (11) Discharge planning issues: Status: Resolved Assessment and plan: She is stable for the medical floor. Home when respiratory status clearly stable. History of Present Illness History of Present Illness Chief Complaint: SOB Narrative: 61 yo F with chronic respiratory failure secondary to COPD and HFpEF with home trilogy-type respirator, presenting with 3-4 days of progressive increase in shortness of breath. She hasn't been able to breath for the past 2 nights due to SOB. She has some increase cough that is minimally productive. Some chest tightness, no chest pain. She hasn't had notable runny nose or congestion, mild SOB. Home health noted increase SOB with some weight gain on 07/03, I recommended increasing torsemide to BID (she had decreased to 20mg daily). Review of Systems Constitutional Constitutional: Reports as per HPI, Reports chills, Denies fever(s), Denies headache(s) and Reports lethargy Eyes Eyes: Denies change in vision and Denies irritation ENT Ears, Nose, Mouth, and Throat: Denies dizziness, Denies headache(s), Denies nasal congestion, Denies nasal discharge and Reports sore throat Cardiovascular Cardiovascular: Reports as per HPI, Denies lightheadedness, Denies palpitations and Denies orthopnea Respiratory Respiratory: Denies hemoptysis and Denies excessive phlegm production Gastrointestinal Gastrointestinal: Reports abdominal pain (just some pain around hernia, no worse), Denies melena, Denies hematochezia, Denies heartburn, Denies diarrhea and Denies vomiting Genitourinary Genitourinary: Denies abnormal vaginal bleeding, Denies hematuria, Denies dysuria and Denies urinary incontinence Integumentary/Breasts Skin/Breast: Denies rash and Denies skin ulcer Neurologic Neurologic: Denies dizziness, Denies headache(s) and Denies sensory deficit Psychiatric Psychiatric: Denies mood swings and Denies panic attacks Endocrine Endocrine: Denies palpitations Hematologic/Lymphatic Hematologic/Lymphatic: Denies easy bleeding PFSH All Active Problems Renal insufficiency, mild (Acute) Anemia (Chronic) Leucocytosis (Acute) Acute and chronic respiratory failure (Acute) Carotid artery occlusion (Acute) Peripheral arterial occlusive disease (Chronic) Palliative care encounter (Acute) Ischemia of foot (Acute) PAF (paroxysmal atrial fibrillation) (Acute) Respiratory failure with hypoxia and hypercapnia (Acute) SOB (shortness of breath) (Acute) Hypercarbia (Acute) Vaginal bleeding (Acute) Hyponatremia (Acute) Pulmonary hypertension (Chronic) Hypoxia (Chronic) (HFpEF) heart failure with preserved ejection fraction (Acute) Anxiety (Chronic) Dyspnea (Acute) Acute anemia (Acute) Postmenopausal bleeding (Acute) Dyspnea on exertion (Acute) S/P left inguinal hernia repair (Acute) 01/21/19 Dr Odette Cormier, left Left inguinal hernia (Acute) Incarcerated inguinal hernia, unilateral (Acute) Small bowel obstruction (Acute) Dehydration (Acute) Hypertension (Chronic) Change in mental status (Acute) Cardiomyopathy (Chronic) Iron deficiency anemia due to chronic blood loss (Chronic) COPD (chronic obstructive pulmonary disease) (Chronic) Medical History Alcohol abuse History of alcohol abuse, reports sober since 2013 Alcoholic gastritis Former smoker Hyponatremia Mood disorder with psychosis Neck pain on right side Palliative care patient Pneumonia Post-menopausal bleeding Pulmonary hypertension Respiratory failure with hypoxia Uterine mass Not candidate for surgery at [facility] or [facility] [place].08/10/21. Had partial uterine artery embolization. Unable to complete 2/2 hypoxia. 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 Daughter Evonne Hernandez Do you feel safe at home: Yes Do you feel safe in your relationship?: Yes Meds Allergies and Home Medications Allergies Allergy/AdvReac Type Severity Reaction Status Date / Time No Known Allergies Allergy Verified 07/06/22 05:46 Home Medications Medication Instructions Recorded Confirmed Type fluoxetine 20 mg capsule 10 mg PO DAILY 01/14/19 07/06/22 History acetaminophen 325 mg tablet 650 mg PO PRN PRN 01/21/19 06/20/22 History multivitamin 1 tab PO DAILY 11/17/19 07/06/22 History tiotropium 2.5 mcg-olodaterol 2.5 2 puff inhalation DAILY 09/15/20 07/06/22 History mcg/actuation mist for inhalation (Stiolto Respimat) fluticasone propionate 220 1 puff inhalation BID 07/26/21 07/06/22 History mcg/actuation HFA aerosol inhaler (Flovent HFA) lorazepam 0.5 mg tablet 0.5 mg PO BID PRN PRN 07/26/21 07/06/22 History nystatin 100,000 unit/gram topical 1 applic topical DIRECTED 07/26/21 07/06/22 History powder (Nystop) metoprolol succinate 100 mg 200 mg PO HS #60 tabs 07/29/21 07/06/22 Rx tablet,extended release 24 hr ferrous sulfate 325 mg (65 mg 1 tab PO DAILY 05/10/22 07/06/22 History iron) tablet Inhaler, Assist Devices [Pocket 1 ea miscellaneous DIRECTED ##0 06/05/22 07/06/22 Rx Chamber] amiodarone 200 mg tablet (Pacerone) 200 mg PO DAILY #30 tabs 06/05/22 07/06/22 Rx ascorbic acid (vitamin C) 500 mg 500 mg PO BID #0 tabs 06/05/22 07/06/22 Rx tablet (Vitamin C) eszopiclone 2 mg tablet 2 mg PO HS #30 tabs 06/05/22 07/06/22 Rx ipratropium bromide 0.02 % 0.25 mg (1.25 mL) UPD BID #60 mL 06/05/22 07/06/22 Rx solution for inhalation spironolactone 25 mg tablet 25 mg PO DAILY #30 tabs 06/05/22 07/06/22 Rx torsemide 20 mg tablet 20 mg PO BID #60 tabs 06/05/22 07/06/22 Rx albuterol sulfate 90 mcg/actuation 2 inh inhalation Q4H PRN PRN 07/06/22 07/06/22 History aerosol inhaler (ProAir HFA) capsaicin 0.025 % topical cream 1 applic topical BID 07/06/22 07/06/22 History losartan 25 mg tablet 1 tab PO DAILY 07/06/22 07/06/22 History magnesium oxide 400 mg (241.3 mg 500 mg PO HS 07/06/22 07/06/22 History magnesium) tablet norethindrone acetate 5 mg tablet 5 mg PO BID 07/06/22 07/06/22 History ondansetron 4 mg disintegrating 1 tab PO Q6H PRN Nausea 07/06/22 07/06/22 History tablet pantoprazole 40 mg tablet,delayed 1 tab PO 0730 07/06/22 07/06/22 History release rivaroxaban 20 mg tablet (Xarelto) 1 tab PO DAILY 07/06/22 07/06/22 History Exam Narrative Exam Narrative: GEN: Alert and oriented x 3, pleasant and cooperative, gives linear history. No acute distress at rest. HEENT: Head atraumatic. Conjunctiva clear, no icterus. PEERL, EOMI. no rhinorrhea. MMM, OP benign. Neck is supple with no masses or lymphadenopathy, trachea midline. JVP elevated but with CPAP in place LUNGS: Diffusely diminished with increased WOB, on CPAP. slight exp wheeze. CV: RRR with no murmurs, gallops, or rubs. ABD: +BS, softly distended, no fluid. mildly tender around umbilical hernia EXT: no cyanosis, clubbing. trace edema. not tender MSK: No joint redness or swelling NEURO: CN 2-12 grossly intact. Normal movement of 4 extremities. Normal speech and coordination SKIN: No rashes or open wounds. lipoma on left lower back. PSYCH: normal mood and affect, no AH/VH Results Imaging Chest x-ray: report reviewed (No active disease in the chest.) EKG: report reviewed (NSR, no ischemic changes) Labs Result diagrams: 07/06/22 04:35 07/06/22 04:35 Labs: Laboratory Results - last 24 hr 07/06/22 07/06/22 07/06/22 04:35 04:35 04:35 WBC 10.79 RBC 4.81 Hgb 12.9 Hct 43.4 MCV 90 MCH 26.8 L MCHC 29.7 L RDW 16.1 H Plt Count 324 MPV 9.3 Immature Gran % 0.8 Neutrophils % 79.4 Lymphocytes % 5.9 Monocytes % 12.9 Eosinophils % 0.4 Basophils % 0.6 Nucleated RBC % 0.0 Absolute Neutrophils 8.56 H Absolute Lymphocytes 0.64 L Absolute Monocytes 1.39 H Absolute Eosinophils 0.04 Absolute Basophils 0.07 PT 10.2 INR 1.0 APTT 26.0 Sodium 132 L Potassium 4.9 Chloride 91 L Carbon Dioxide 39.1 H Anion Gap 1.9 L BUN 14 Creatinine 1.1 H Est GFR (CKD-EPI 2020) 56.46 Glucose 128 H Calcium 9.2 Magnesium 1.9 Total Bilirubin 0.3 AST 26 ALT 27 Alkaline Phosphatase 69 Troponin I < 50 NT-Pro-B Natriuret Pep 1781 H Total Protein 8.0 Albumin 4.0 Urine Color Urine Clarity Urine pH Ur Specific [place] Urine Protein Urine Ketones Urine Blood Urine Nitrite Urine Bilirubin Urine Urobilinogen Ur Leukocyte Esterase Urine RBC Urine WBC Ur Epithelial Cells Urine Crystals Urine Bacteria Urine Casts Urine Mucus Ur Culture Indicated? Urine Glucose COVID-19 Source SARS-CoV-2 (PCR) Influenza Type A (PCR) Influenza Type B (PCR) RSV (PCR) 07/06/22 07/06/22 05:10 05:20 WBC RBC Hgb Hct MCV MCH MCHC RDW Plt Count MPV Immature Gran % Neutrophils % Lymphocytes % Monocytes % Eosinophils % Basophils % Nucleated RBC % Absolute Neutrophils Absolute Lymphocytes Absolute Monocytes Absolute Eosinophils Absolute Basophils PT INR APTT Sodium Potassium Chloride Carbon Dioxide Anion Gap BUN Creatinine Est GFR (CKD-EPI 2020) Glucose Calcium Magnesium Total Bilirubin AST ALT Alkaline Phosphatase Troponin I NT-Pro-B Natriuret Pep Total Protein Albumin Urine Color Yellow Urine Clarity Sl Cloudy Urine pH 5.5 Ur Specific [place] >= 1.030 H Urine Protein >=300 H Urine Ketones Negative Urine Blood Trace-intact H Urine Nitrite Negative Urine Bilirubin Negative Urine Urobilinogen 0.2 Ur Leukocyte Esterase Negative Urine RBC 3-5 H Urine WBC Negative Ur Epithelial Cells Few Urine Crystals Negative Urine Bacteria Negative Urine Casts 3-5 Hyaline Urine Mucus Negative Ur Culture Indicated? No Urine Glucose Negative COVID-19 Source Nasopharynx SARS-CoV-2 (PCR) Negative Influenza Type A (PCR) Negative Influenza Type B (PCR) Negative RSV (PCR) Positive A* Last Vital Signs Temp 36.5 C 07/06/22 06:22 Pulse 99 H 07/06/22 06:01 Resp 21 07/06/22 06:01 BP 87/59 L 07/06/22 06:01 Pulse Ox 88 L 07/06/22 06:01
[2022-07-06 07:49] LABS: Troponin I < 50 ng/L (<or=60)
[2022-07-06] MEDS: LORazepam 2 MG/ML VIAL 1 MG IVP ×2 (09:31→12:34)
[2022-07-06 09:34] LABS: BE (Venous) 13 mmol/L (-2-3); HCO3 (Venous) 40 mmol/L (23-28); O2 Sat (Venous) 69 %; TCO2 (Venous) 38 mmol/L (24-29); pH (Venous) 7.26 (7.31-7.41); pO2 (Venous) 41 mmHg
[2022-07-06 09:36] LABS: pCO2 (Venous) 91 mmHg (41-51)
--- NOTE | 2022-07-06 09:45 | INITIAL_ITS ---
- If Service Date Differs Date of service: 07/06/22 Time of Service: 09:45 Care Management Initial Assess REASON FOR HOSPITALIZATION:: COPD Exacerbation. PAST MEDICAL HISTORY/PAST SURGICAL HISTORY:: All Active Problems: Renal insufficiency, mild (Acute), Anemia (Chronic),. Leucocytosis (Acute), Acute and chronic respiratory failure (Acute),. Carotid artery occlusion (Acute), Peripheral arterial occlusive disease (Chronic), Palliative care encounter ([facility]), Ischemia of foot (Acute),. PAF (paroxysmal atrial fibrillation) (Acute), Respiratory failure with hypoxia and hypercapnia (Acute), SOB (shortness of breath) (Acute), Hypercarbia (Acute), Vaginal bleeding (Acute), Hyponatremia (Acute), Pulmonary hypertension (Chronic), Hypoxia (Chronic), (HFpEF) heart failure with preserved ejection fraction (Acute), Anxiety (Chronic), Dyspnea (Acute), Acute anemia (Acute), Postmenopausal bleeding (Acute), Dyspnea on exertion (Acute), S/P left inguinal hernia repair (Acute) - 01/21/19 Dr Odette Cormier, left, Left inguinal hernia (Acute), Incarcerated inguinal hernia, unilateral (Acute), Small bowel obstruction (Acute), Dehydration (Acute),. Hypertension (Chronic), Change in mental status (Acute), Cardiomyopathy (Chronic), Iron deficiency anemia due to chronic blood loss (Chronic), and. COPD (chronic obstructive pulmonary disease) (Chronic). Medical History: Alcohol abuse - History of alcohol abuse, reports sober since 2013, Alcoholic gastritis, Former smoker, Hyponatremia, Mood disorder with psychosis, Neck pain on right side, Palliative care patient,. Pneumonia, Post-menopausal bleeding, Pulmonary hypertension, Respiratory failure with hypoxia, and Uterine mass - Not candidate for surgery at [facility] or [facility] [place].08/10/21. Had partial uterine artery embolization. Unable to complete 2/2 hypoxia. Surgical History: EGD - MAC (07/04/16). PREVIOUS FUNCTIONAL STATUS/SOCIAL/FAMILY SUPPORTS:: Елена lives in [place] with her Osmani and daughter Evonne. 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 She has COPD and has had several inpatient hospitalizations this past year for COPD exacerbation with hypoxia. CURRENT FUNCTIONAL STATUS:: Елена is asleep and has a Bipap facial mask on when comes to meet with her. Nursing staff report patient is medicated as she became agitated and tried to pull out her IV earlier. CM will continue to follow. ADVANCE DIRECTIVES:: On file; daughter Evonne Hernandez is appointed as Health Care Agent and Osmani Hernandez as alternate. Has patient been provided with info about the portal/API?: Yes Did the patient sign up for the portal?: No CODE STATUS:: Full Code INSURANCE COVERAGE / FINANCIAL ISSUES:: [facility] Medicare Replacement Plan. CURRENT HOME/COMMUNITY SERVICES/EQUIPMENT:: Palliative Care, HH RN, home O2 through [employer], Trilogy WES mask. PRIMARY CARE PHYSICIAN:: Hardy Eagle MD. POTENTIAL DISCHARGE NEEDS:: Follow up appointments with PCP and pulmonology. PATIENT/FAMILY EDUCATION NEEDS:: Review of discharge instructions and discuss Ask Me Three. ANTICIPATED BARRIERS TO DISCHARGE:: None identified at this time. TRANSPORTATION:: Via private vehicle by family. PLAN:: Елена will likely be discharged home with a resumption of HH RN services when medically cleared by provider. She will follow up with her PCP, pulmonology and plan of care as prescribed. She will be transported home by family via private vehicle when ready. CM will continue to support Елена, her family and any discharge planning needs.
[2022-07-06] MEDS: Dexamethasone 4 MG/ML VIAL 6 MG IVP (09:57)
[2022-07-06] MEDS: DOXYCYCLINE 100 MG in Normal Saline 100 ML IVPB ×2 (09:58→21:52)
[2022-07-06] MEDS: MORPHine 4 MG/ML SYR IVP (12:43)
[2022-07-06] MEDS: Levalbuterol 1.25 MG/3 ML UPD VIAL UPD (12:44)
[2022-07-06] MEDS: LORazepam 2 MG/ML VIAL 0.5 MG IVP ×4 (14:06→23:46)
--- NOTE | 2022-07-06 16:20 | RESPIRATORY ---
Patient's home Trilogy Napoleon machine brought in by and is in room.
[2022-07-06] MEDS: Normal Saline Flush 10 ML SYR IVP ×6 (16:38→23:28)
[2022-07-06] MEDS: MORPHine 2 MG/ML SYR IVP ×3 (16:38→22:22)
[2022-07-06] MEDS: Levalbuterol 0.63 MG/3 ML UPD VIAL UPD (16:55)
[2022-07-06] MEDS: Budesonide 0.5 MG/2 ML UPD VIAL UPD (17:23)
[2022-07-06 17:39] LABS: BE (Venous) 12 mmol/L (-2-3); HCO3 (Venous) 38 mmol/L (23-28); O2 Sat (Venous) 92 %; TCO2 (Venous) 35 mmol/L (24-29); pH (Venous) 7.29 (7.31-7.41); pO2 (Venous) 64 mmHg
[2022-07-06 17:41] LABS: pCO2 (Venous) 79 mmHg (41-51)
--- NOTE | 2022-07-06 20:30 | RESPIRATORY ---
Patient placed on High Flow Nasal Cannula System 60LPM 85% FiO2. Monitored O2 sats are 92% and patient is resting in bed. Bipap remains in room.
[2022-07-06] MEDS: Gabapentin 100 MG CAP PO (20:32)
[2022-07-06] MEDS: Norethindrone 5 MG TAB PO (20:32)
--- NOTE | 2022-07-06 21:00 | RESPIRATORY ---
Patient became agitated and O2 sats dropped. Placed on Bipap 14/8 40% FiO2. Agitattion slightly decreased O2 sats improved.
[2022-07-06] MEDS: Normal Saline 500 ML 100 ML IV (21:53)
[2022-07-06] MEDS: Metoprolol CR 100 MG TABCR 200 MG PO (22:24)
[2022-07-07] VITALS (155 sets, daily range): BP systolic 57–166; BP diastolic 24–117; PULSE 63–105; RESP 1–36; TEMP 36.3–36.9; O2SAT 76–100
--- NOTE | 2022-07-07 | DI.RAD_ITS ---
Exam(s) XR PORTABLE CHEST AP EXAM: XR PORTABLE CHEST AP CLINICAL HISTORY: post ET tube placement TECHNIQUE: 2D digital imaging was performed of the chest. Two images were obtained. AP views were obtained. COMPARISON: CR,XR XR PORTABLE CHEST AP from 07/06/2022 FINDINGS: MEDIASTINUM: Normal. HEART: Normal. PULMONARY VASCULATURE: Normal. LUNGS: There is diffuse interstitial prominence. No focal consolidating infiltrates are seen. PLEURAL SPACE: No pleural effusion or pneumothorax. BONE:Within normal limits for the patient's age. OTHER FINDINGS:The tip of the endotracheal tube lies 3 cm above the misti. The enteric tube passes below the hemidiaphragm. The tip is not included on the examination. IMPRESSION: 1. Diffuse interstitial disease. Differential considerations include pneumonitis, edema or pulmonary fibrosis. 2. Tip of the ET tube lies 3 cm above the misti. 3. The enteric tube passes below the hemidiaphragms. The tip is not included on the examination. DATA REPOSITORY: RADIATION DOSE DELIVERED:
[2022-07-07] MEDS: LORazepam 2 MG/ML VIAL 1 MG IVP ×3 (02:15→21:38)
[2022-07-07] MEDS: Normal Saline Flush 10 ML SYR IVP ×3 (03:57→21:40)
[2022-07-07] MEDS: MORPHine 2 MG/ML SYR IVP (03:58)
[2022-07-07] MEDS: Levalbuterol 0.63 MG/3 ML UPD VIAL UPD ×2 (04:41→08:30)
[2022-07-07] MEDS: Budesonide 0.5 MG/2 ML UPD VIAL UPD ×2 (05:21→16:31)
[2022-07-07 06:50] LABS: Abs Immature Grans 0.69 10^3/uL (0.0-0.06); Absolute Basophil Count 0.06 10^3/uL (0.0-0.2); Absolute Eosinophil Count 0.01 10^3/uL (0.0-0.7); Absolute Lymphocyte Count 0.19 10^3/uL (1.2-3.4); Absolute Neutrophil Count 8.73 10^3/uL (1.2-6.7); Basophils % 0.6; Eosinophils % 0.1; HCT 40.9 % (36.0-46.0); HGB 11.7 g/dL (11.2-15.7); Immature Grans % 6.5; Lymphocytes % 1.8; MCH 26.8 pg (27.0-33.0); MCHC 28.6 % (32.0-36.0); MCV 94 fL (80-95); MPV 9.2 fL (8.0-11.0); Monocytes % 8.5; Neutrophils % 82.5; Nucleated RBC 0.3 % (0.0-0.3); Platelet Count 236 10^3/uL (130-400); RBC 4.36 10^6/uL (3.93-5.22); RDW 16.2 % (11.7-14.6); RDW-SD 56.1 fL; WBC 10.58 10^3/uL (4.4-10.8)
[2022-07-07 06:57] LABS: Anion Gap -1.2 mmol/L (3-11); BUN 20 mg/dL (7-18); CO2 40.2 mmol/L (21.0-32.0); CREATININE 1.3 mg/dL (0.55-1.02); Calcium 8.6 mg/dL (8.5-10.1); Chloride 93 mmol/L (98-107); Estimated GFR 46.21 (mL/min/1.73m2); Glucose 144 mg/dL (74-106); Sodium 132 mmol/L (136-145)
[2022-07-07 07:25] LABS: Diff Comment Diff Reviewed; RBC Morphology Normal
--- NOTE | 2022-07-07 07:30 | RT.EKG_ITS ---
APPROVED REPORT Exam: Resting ECG Reason for Exam: hyperkalemia Patient Location: I HR:76 bpm ECG Measurements Heart Rate 76 AXIS SD 227 P 77 QRSd 102 QRS -24 QT 383 T 66 QTc 431 Conclusion Sinus rhythm...normal P axis, V-rate 50- 99 Prolonged SD interval...SD >220, V-rate 50- 90 Borderline left axis deviation...QRS axis (-15,-29)
[2022-07-07] MEDS: Dexamethasone 4 MG/ML VIAL 6 MG IVP (07:51)
[2022-07-07] MEDS: Furosemide 40 MG/4 ML VIAL IVP ×2 (07:51→15:44)
[2022-07-07 08:05] LABS: BE (Venous) 13 mmol/L (-2-3); HCO3 (Venous) 41 mmol/L (23-28); O2 Sat (Venous) 93 %; TCO2 (Venous) 39 mmol/L (24-29); pH (Venous) 7.22 (7.31-7.41); pO2 (Venous) 68 mmHg
[2022-07-07 08:06] LABS: Lab Add On Test DONE
[2022-07-07 08:11] LABS: pCO2 (Venous) 100 mmHg (41-51)
[2022-07-07 08:17] LABS: Anion Gap -2.7 mmol/L (3-11); BUN 21 mg/dL (7-18); CO2 41.7 mmol/L (21.0-32.0); CREATININE 1.2 mg/dL (0.55-1.02); Calcium 8.6 mg/dL (8.5-10.1); Chloride 93 mmol/L (98-107); Estimated GFR 50.86 (mL/min/1.73m2); Glucose 141 mg/dL (74-106); Sodium 132 mmol/L (136-145)
[2022-07-07] MEDS: CALCIUM GLUCONATE in NaCl 1 GM/50 ML BAG IVPB (08:21)
[2022-07-07] MEDS: Insulin REGULAR-Human 100 UNITS/ML UNIT IV ×2 (08:21→15:05)
[2022-07-07] MEDS: Dextrose 50%-Water 25 GM/50 ML SYR IVP ×2 (08:21→15:04)
--- NOTE | 2022-07-07 08:58 | PDOC.CMPRO ---
- If Service Date Differs Date of service: 07/07/22 Time of Service: 08:58 Care Management Progress Note S/O: Per report, Елена has been working hard to breathe today, and may require intubation. Palliative met with her and called her daughter, Evonne, who is her health care agent, to discuss goals of care. Елена was not able to participate in the meeting, and Evonne would like to honor her mother's wishes. Елена remains a full code, and will be intubated, if necessary. CM will continue to follow. A: Deepthi is a 61 year old female admitted to [facility] on 07/06/22 for COPD exacerbation. P: Елена will likely be discharged home with a resumption of RN services when medically cleared by provider. She will follow up with her PCP, pulmonology and plan of care as prescribed. She will be transported home by family via private vehicle when ready. CM will continue to support Елена, her family and any discharge planning needs.
[2022-07-07 09:04] LABS: Procalcitonin < 0.1 ng/mL
[2022-07-07] MEDS: Ipratropium 0.5 MG/2.5 ML UPD VIAL UPD ×4 (09:08→21:39)
[2022-07-07] MEDS: LORazepam 2 MG/ML VIAL 0.5 MG IVP (09:18)
[2022-07-07 09:46] LABS: BE (Venous) 14 mmol/L (-2-3); HCO3 (Venous) 41 mmol/L (23-28); O2 Sat (Venous) 75 %; TCO2 (Venous) 39 mmol/L (24-29); pH (Venous) 7.25 (7.31-7.41); pO2 (Venous) 40 mmHg
[2022-07-07 09:49] LABS: pCO2 (Venous) 95 mmHg (41-51)
[2022-07-07] MEDS: MORPHine 2 MG/ML SYR 1 MG IVP ×4 (09:49→17:03)
[2022-07-07] MEDS: Pantoprazole 40 MG VIAL IVP (09:55)
[2022-07-07] MEDS: DOXYCYCLINE 100 MG in Normal Saline 100 ML IVPB ×2 (09:57→21:38)
[2022-07-07 12:33] LABS: O2 Sat (Venous) 91 %; pO2 (Venous) 64 mmHg
[2022-07-07 12:39] LABS: pCO2 (Venous) > 100 mmHg (41-51)
[2022-07-07 12:45] LABS: Anion Gap -2.7 mmol/L (3-11); BUN 22 mg/dL (7-18); CO2 41.7 mmol/L (21.0-32.0); CREATININE 1.1 mg/dL (0.55-1.02); Calcium 8.9 mg/dL (8.5-10.1); Chloride 94 mmol/L (98-107); Estimated GFR 56.46 (mL/min/1.73m2); Glucose 139 mg/dL (74-106); Potassium 5.9 mmol/L (3.5-5.1); Sodium 133 mmol/L (136-145)
--- NOTE | 2022-07-07 12:54 | PCNE_ITS ---
Date of service: 07/07/22 Time of Service: 12:55 History of Present Illness Narrative: Елена was seen in her ICU room. She has RSV. Dr. Mars spoke to her daughter, Evonne, who wished to hold off on intubation as long as possible but agrees to intubation after an hour if still necessary. Елена appears to be in respiratory distress on BiPAP at the time of the visit. Елена is not able to participate in the visit. She has stated in the past that she would only want to be on the ventilator for 5-7 days- this is documented in her last Palliative visit with Dr. Cheney and on her COLST form. Evonne is Елена's health care agent, her , Osmani is her alternate agent. Phone call to discuss with Evonne: Evonne acknowledges that Елена can be hard to have difficult conversations with. She often states that Evonne knows what she wants and avoids answering questions. Evonne agrees that she is likely going to be facing some difficult decisions. Evonne states she wants to give intubation one last try. She reports that Елена was doing well prior to getting RSV. She was more compliant with medications and treatments than she has been for a long time. Discussed that she has had 9 admissions to the hospital in just over a year. Evonne recognizes that her mom is declining. She states, I know she is afraid to . Discussed hospice and that she would qualify if they decide to focus on comfort and quality of life with a goal of keeping her home with support. Evonne states she will get her dad and come see Елена. Assessment and Plan Assessment and plan (1) Acute and chronic respiratory failure: Status: Acute (2) SOB (shortness of breath): Status: Acute (3) (HFpEF) heart failure with preserved ejection fraction: Status: Acute Qualifiers: Heart failure chronicity: acute on chronic Qualified Code(s): I50.33 - Acute on chronic diastolic (congestive) heart failure (4) COPD (chronic obstructive pulmonary disease): Status: Chronic Qualifiers: COPD type: COPD with acute exacerbation Qualified Code(s): J44.1 - Chronic obstructive pulmonary disease with (acute) exacerbation (5) RSV (respiratory syncytial virus infection): Status: Acute (6) Palliative care encounter: Status: Acute Assessment and plan: Елена was seen in her ICU room. She has RSV. Dr. Mars spoke to her daughter, Evonne, who wished to hold off on intubation as long as possible but agrees to intubation after an hour if still necessary. Елена appears to be in respiratory distress on BiPAP at the time of the visit. Елена is not able to participate in the visit. She has stated in the past that she would only want to be on the ventilator for 5-7 days- this is documented in her last Palliative visit with Dr. Cheney and on her COLST form. Evonne is Елена's health care agent, her , Osmani is her alternate agent. Phone call to discuss with Evonne: Evonne acknowledges that Елена can be hard to have difficult conversations with. She often states that Evonne knows what she wants and avoids answering questions. Evonne agrees that she is likely going to be facing some difficult decisions. Evonne states she wants to give intubation one last try. She reports that Елена was doing well prior to getting RSV. She was more compliant with medications and treatments than she has been for a long time. Discussed that she has had 9 admissions to the hospital in just over a year. Evonne recognizes that her mom is declining. She states, I know she is afraid to . Discussed comfort measures and hospice. Discussed that she would qualify for hospice if they decide to focus on comfort and quality of life with a goal of keeping her home with support. Evonne states she will get her dad and come see Елена. Елена remains a FULL CODE at this time. Review of Systems Narrative: unable to participate. [facility] All Active Problems (Updated 07/07/22 @ 14:14 by Rubi Javier NP) RSV (respiratory syncytial virus infection) (Acute) Renal insufficiency, mild (Acute) Anemia (Chronic) Leucocytosis (Acute) Acute and chronic respiratory failure (Acute) Carotid artery occlusion (Acute) Peripheral arterial occlusive disease (Chronic) Palliative care encounter (Acute) Ischemia of foot (Acute) PAF (paroxysmal atrial fibrillation) (Acute) Respiratory failure with hypoxia and hypercapnia (Acute) SOB (shortness of breath) (Acute) Hypercarbia (Acute) Vaginal bleeding (Acute) Hyponatremia (Acute) Pulmonary hypertension (Chronic) Hypoxia (Chronic) (HFpEF) heart failure with preserved ejection fraction (Acute) Anxiety (Chronic) Dyspnea (Acute) Acute anemia (Acute) Postmenopausal bleeding (Acute) Dyspnea on exertion (Acute) S/P left inguinal hernia repair (Acute) 01/21/19 Dr Odette Cormier, left Left inguinal hernia (Acute) Incarcerated inguinal hernia, unilateral (Acute) Small bowel obstruction (Acute) Dehydration (Acute) Hypertension (Chronic) Change in mental status (Acute) Cardiomyopathy (Chronic) Iron deficiency anemia due to chronic blood loss (Chronic) COPD (chronic obstructive pulmonary disease) (Chronic) Medical History Alcohol abuse History of alcohol abuse, reports sober since 2013 Alcoholic gastritis Former smoker Hyponatremia Mood disorder with psychosis Neck pain on right side Palliative care patient Pneumonia Post-menopausal bleeding Pulmonary hypertension Respiratory failure with hypoxia Uterine mass Not candidate for surgery at [facility] or [facility].08/10/21. Had partial uterine artery embolization. Unable to complete / hypoxia. 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 Daughter Evonne Hernandez Do you feel safe at home: Yes Do you feel safe in your relationship?: Yes Exam Narrative Exam Narrative: Елена is laying in bed, on bipap, has increased WOB, not able to engage in the visit. Eyes remain closed. Heart is nontachycardic. no edema. Results Last Vital Signs Temp 36.9 C 07/07/22 08:30 Pulse 64 07/07/22 11:01 Resp 22 07/07/22 11:20 BP 112/53 L 07/07/22 11:01 Pulse Ox 92 07/07/22 11:45 Labs Result diagrams: 07/07/22 06:37 07/07/22 12:28 Labs: Laboratory Results - last 24 hr 07/06/22 07/07/22 07/07/22 17:35 06:37 06:37 WBC 10.58 RBC 4.36 Hgb 11.7 Hct 40.9 MCV 94 D MCH 26.8 L MCHC 28.6 L RDW 16.2 H Plt Count 236 MPV 9.2 Immature Gran % 6.5 Neutrophils % 82.5 Lymphocytes % 1.8 Monocytes % 8.5 Eosinophils % 0.1 Basophils % 0.6 Nucleated RBC % 0.3 Absolute Neutrophils 8.73 H Absolute Lymphocytes 0.19 L Absolute Monocytes 0.90 H Absolute Eosinophils 0.01 Absolute Basophils 0.06 RBC Morphology Normal VBG pH 7.29 L VBG pCO2 79 H* VBG pO2 64 VBG HCO3 38 H VBG Total CO2 35 H VBG O2 Saturation 92 VBG Base Excess 12 H Sodium 132 L Potassium 6.0 H D Chloride 93 L Carbon Dioxide 40.2 H Anion Gap -1.2 L BUN 20 H Creatinine 1.3 H Est GFR (CKD-EPI 2020) 46.21 Glucose 144 H Calcium 8.6 Procalcitonin Add-On Test Request 07/07/22 07/07/22 07/07/22 07:55 07:55 07:55 WBC RBC Hgb Hct MCV MCH MCHC RDW Plt Count MPV Immature Gran % Neutrophils % Lymphocytes % Monocytes % Eosinophils % Basophils % Nucleated RBC % Absolute Neutrophils Absolute Lymphocytes Absolute Monocytes Absolute Eosinophils Absolute Basophils RBC Morphology VBG pH 7.22 L VBG pCO2 100 H* VBG pO2 68 VBG HCO3 41 H VBG Total CO2 39 H VBG O2 Saturation 93 VBG Base Excess 13 H Sodium 132 L Potassium 6.0 H Chloride 93 L Carbon Dioxide 41.7 H Anion Gap -2.7 L BUN 21 H Creatinine 1.2 H Est GFR (CKD-EPI 2020) 50.86 Glucose 141 H Calcium 8.6 Procalcitonin Add-On Test Request DONE 07/07/22 07/07/22 07/07/22 07:55 09:40 12:28 WBC RBC Hgb Hct MCV MCH MCHC RDW Plt Count MPV Immature Gran % Neutrophils % Lymphocytes % Monocytes % Eosinophils % Basophils % Nucleated RBC % Absolute Neutrophils Absolute Lymphocytes Absolute Monocytes Absolute Eosinophils Absolute Basophils RBC Morphology VBG pH 7.25 L VBG pCO2 95 H* VBG pO2 40 VBG HCO3 41 H VBG Total CO2 39 H VBG O2 Saturation 75 VBG Base Excess 14 H Sodium 133 L Potassium 5.9 H Chloride 94 L Carbon Dioxide 41.7 H Anion Gap -2.7 L BUN 22 H Creatinine 1.1 H Est GFR (CKD-EPI 2020) 56.46 Glucose 139 H Calcium 8.9 Procalcitonin < 0.1 Add-On Test Request 07/07/22 12:28 WBC RBC Hgb Hct MCV MCH MCHC RDW Plt Count MPV Immature Gran % Neutrophils % Lymphocytes % Monocytes % Eosinophils % Basophils % Nucleated RBC % Absolute Neutrophils Absolute Lymphocytes Absolute Monocytes Absolute Eosinophils Absolute Basophils RBC Morphology VBG pH 7.20 L VBG pCO2 > 100 H* VBG pO2 64 VBG HCO3 VBG Total CO2 VBG O2 Saturation 91 VBG Base Excess Sodium Potassium Chloride Carbon Dioxide Anion Gap BUN Creatinine Est GFR (CKD-EPI 2020) Glucose Calcium Procalcitonin Add-On Test Request
[2022-07-07] MEDS: Levalbuterol 1.25 MG/3 ML UPD VIAL UPD ×2 (13:08→16:29)
--- NOTE | 2022-07-07 14:10 | CHAPLAIN ---
Nursing were putting an IV in Deepthi when I visited to went to meet her daughter and in the family waiting room. Her daughter said that her mom has been doing well lately and has a stretch of better health, but that the RSV is compromising her breathing. Medical staff will make a decision soon about intubating Deepthi. Her daughter agrees with intubating her to give her body a rest and she if she will bounce back. Her daughter also seems realistic about the seriousness of the situation.
[2022-07-07 14:17] LABS: O2 Sat (Venous) 87 %; pH (Venous) 7.23 (7.31-7.41); pO2 (Venous) 54 mmHg
[2022-07-07 14:22] LABS: pCO2 (Venous) > 100 mmHg (41-51)
[2022-07-07] MEDS: PROPOFOL 1,000 MG/100 ML BTL 23.04 MG IVPB (14:47)
--- NOTE | 2022-07-07 15:00 | W.ANESAIR ---
Airway Management Note Procedure Date and Time DO NOT use this note for patients in the OR, Use Intraop Record Instead Date Performed: 07/07/22 Procedure Time: 14:48 Procedure Location Procedure Location: Intensive Care Unit Requesting Provider: Laura Mars Number of Previous Intubation attempts by other providers: 0 Procedure Type Procedure Type: Urgent Pre-Induction Setup Sterility: Hand Hygiene, Surgical Cap, Surgical Mask and Eye Protection Preinduction Setup: Standard monitors applied, BVM at bedside, Suction ready, Airway equipment ready, Medications ready, IV/IO access patent & flowing and Post induction medications ready Induction Induction Time: 14:50 Induction setup: Pt. evaluated prior to induction, Head of Bed Elevated, BiPAP/CPAP and Rapid Sequence Induction Induction Medications (Indicate Dose Given): Ketamine IV Dose:: 50 mg, Propofol IV Dose:: 100 mg, Rocuronium IV Dose:: 100 and Phenylephrine IV Dose:: 480 mcg Mask Ventilation: None Airway Device Airway Type: Intubation Laryngoscopy: Atraumatic Laryngoscopy and Teeth Intact (to baseline) Airway Grade: 2a Airway Blades: Glidescope 3 Endotracheal Tube: Oral and 7.5mm ETT Depth Where Secured (cm): 22 Placement Confirmation: Cuff inflated with minimally occlusive pressure, Secured with commercial device, Bilateral breath sounds and ETCO2 waveform present Number of Attempts (See previous attempts in note section): 1 Post Induction Management Post Induction Medications (Indicate Dose Given): Managed by Requesting Provider and Propofol (mcg/kg/min) (Initiated by anesthesia, however ordered by hospitalist and to be managed) Dose:: 50 Gastric Tube Gastric Tube: Placed by Anesthesia Gastric Tube Placement: Oral Tube Size (Fr): 16 Depth Secured (cm): 70 Procedure Complications Procedure Complications: None Procedure Outcome Procedure Outcome: Successful Proceduralist Performed By: Audie Osorio Other (not listed above): Assisted by Tejinder Goldberg
--- NOTE | 2022-07-07 15:33 | PGE_ITS ---
Date of Service Date of service: 07/07/22 Time of Service: 15:33 Assessment and Plan Assessment and plan (1) Acute and chronic respiratory failure: Status: Acute Assessment and plan: triggered by COPD exacerbation due to both RSV and acute exacerbation of CHF. Failed BiPAP and intubated. Will continued to monitor serial ABGs. Palliative care consulted. Add scheduled atrovent nebs. (2) COPD (chronic obstructive pulmonary disease): Status: Chronic Assessment and plan: As above Continue steroids, scheduled + prn nebs, inhaled corticosteroids. Qualifiers: COPD type: COPD with acute exacerbation Qualified Code(s): J44.1 - Chronic obstructive pulmonary disease with (acute) exacerbation (3) (HFpEF) heart failure with preserved ejection fraction: Status: Acute Assessment and plan: Continue IV lasix. Qualifiers: Heart failure chronicity: acute on chronic Qualified Code(s): I50.33 - Acute on chronic diastolic (congestive) heart failure (4) Postmenopausal bleeding: Status: Acute Assessment and plan: Resume oral progesterone - will find out re ability to give this via NG tube (5) Hyperkalemia: Status: Acute Assessment and plan: Treated with D50 + insulin x 2 and received calcium. S/p lasix x 2 today. Recheck BMP at 6 pm. (6) Hyponatremia: Status: Acute Assessment and plan: Mild, likely dilutional. Diurese and trend. (7) Renal insufficiency, mild: Status: Acute Assessment and plan: Monitor Cr while diuresing. (8) PAF (paroxysmal atrial fibrillation): Status: Acute Assessment and plan: Continue amiodarone, metoprolol; xarelto. (9) Iron deficiency anemia due to chronic blood loss: Status: Chronic Assessment and plan: Holding PO iron since intubated. (10) Mood disorder with psychosis: Assessment and plan: Did require prn IV lorazepam. Currently intubated. (11) DVT prophylaxis: Status: Resolved Assessment and plan: Continue DOAC. Degree of hematuria would not preclude giving anticoagulation. (12) Discharge planning issues: Status: Resolved Assessment and plan: Full code. Keep in ICU. Palliative care consulted. Total Critical Care Time 80 minutes. Subjective Subjective Interval history since last seen: Ms Hernandez is s/p intubation post failing BiPAP today, despite adjusted settings. Seen by palliative care: Evonne, the patient's daughter, did want the patient intubated one last night since her baseline prior to coming to the hospital this time, while using Trilogy, was quite good. Exam Narrative Exam Narrative: General: Intubated, sedated, arousable, follows commands HEENT: EOMI, MMM, dry blood on tongue, ET and OG tubes in place Heart: RRR Lungs: CTAB Abdomen: soft, nontender, nondistended, OGT with billious drainage Extremities: no edema BLEs, 1+ pedal pulses B, BLEs warm. Objective Last Vital Signs Temp 36.9 C 07/07/22 08:30 Pulse 84 07/07/22 14:54 Resp 14 07/07/22 15:00 BP 123/61 07/07/22 14:54 Pulse Ox 95 07/07/22 15:00 Laboratory Results - last 24 hr 07/06/22 07/07/22 07/07/22 17:35 06:37 06:37 WBC 10.58 RBC 4.36 Hgb 11.7 Hct 40.9 MCV 94 D MCH 26.8 L MCHC 28.6 L RDW 16.2 H Plt Count 236 MPV 9.2 Immature Gran % 6.5 Neutrophils % 82.5 Lymphocytes % 1.8 Monocytes % 8.5 Eosinophils % 0.1 Basophils % 0.6 Nucleated RBC % 0.3 Absolute Neutrophils 8.73 H Absolute Lymphocytes 0.19 L Absolute Monocytes 0.90 H Absolute Eosinophils 0.01 Absolute Basophils 0.06 RBC Morphology Normal VBG pH 7.29 L VBG pCO2 79 H* VBG pO2 64 VBG HCO3 38 H VBG Total CO2 35 H VBG O2 Saturation 92 VBG Base Excess 12 H Sodium 132 L Potassium 6.0 H D Chloride 93 L Carbon Dioxide 40.2 H Anion Gap -1.2 L BUN 20 H Creatinine 1.3 H Est GFR (CKD-EPI 2020) 46.21 Glucose 144 H Calcium 8.6 Procalcitonin Add-On Test Request 07/07/22 07/07/22 07/07/22 07:55 07:55 07:55 WBC RBC Hgb Hct MCV MCH MCHC RDW Plt Count MPV Immature Gran % Neutrophils % Lymphocytes % Monocytes % Eosinophils % Basophils % Nucleated RBC % Absolute Neutrophils Absolute Lymphocytes Absolute Monocytes Absolute Eosinophils Absolute Basophils RBC Morphology VBG pH 7.22 L VBG pCO2 100 H* VBG pO2 68 VBG HCO3 41 H VBG Total CO2 39 H VBG O2 Saturation 93 VBG Base Excess 13 H Sodium 132 L Potassium 6.0 H Chloride 93 L Carbon Dioxide 41.7 H Anion Gap -2.7 L BUN 21 H Creatinine 1.2 H Est GFR (CKD-EPI 2020) 50.86 Glucose 141 H Calcium 8.6 Procalcitonin Add-On Test Request DONE 07/07/22 07/07/22 07/07/22 07:55 09:40 12:28 WBC RBC Hgb Hct MCV MCH MCHC RDW Plt Count MPV Immature Gran % Neutrophils % Lymphocytes % Monocytes % Eosinophils % Basophils % Nucleated RBC % Absolute Neutrophils Absolute Lymphocytes Absolute Monocytes Absolute Eosinophils Absolute Basophils RBC Morphology VBG pH 7.25 L VBG pCO2 95 H* VBG pO2 40 VBG HCO3 41 H VBG Total CO2 39 H VBG O2 Saturation 75 VBG Base Excess 14 H Sodium 133 L Potassium 5.9 H Chloride 94 L Carbon Dioxide 41.7 H Anion Gap -2.7 L BUN 22 H Creatinine 1.1 H Est GFR (CKD-EPI 2020) 56.46 Glucose 139 H Calcium 8.9 Procalcitonin < 0.1 Add-On Test Request 07/07/22 07/07/22 12:28 14:10 WBC RBC Hgb Hct MCV MCH MCHC RDW Plt Count MPV Immature Gran % Neutrophils % Lymphocytes % Monocytes % Eosinophils % Basophils % Nucleated RBC % Absolute Neutrophils Absolute Lymphocytes Absolute Monocytes Absolute Eosinophils Absolute Basophils RBC Morphology VBG pH 7.20 L 7.23 L VBG pCO2 > 100 H* > 100 H* VBG pO2 64 54 VBG HCO3 VBG Total CO2 VBG O2 Saturation 91 87 VBG Base Excess Sodium Potassium Chloride Carbon Dioxide Anion Gap BUN Creatinine Est GFR (CKD-EPI 2020) Glucose Calcium Procalcitonin Add-On Test Request Objective Narrative Objective Narrative: CXR pending Multi-Disciplinary Checklist Lines/Tubes CENTRAL LINE: no ARTERIAL LINE: no MUNOZ: yes, Munoz Day#: 1 ENDOTRACHEAL TUBE: yes, Endotracheal Tube Day#: 1 Sedation: yes, Sedation Vacation: yes Head of Bed@30 degrees: yes Spontaneous Breathing Trial: no, Reason/Intervention: intubated today ICU Maintenance GLUCOSE 140-180mg/dL: yes NUTRITION AT GOAL: no, PRESSURE ULCER: no RESTRAINTS: yes, Reviewed Necessity: Yes ANTIBIOTICS(if yes, consider Stewardship): Yes Social Issues FAMILY UPDATED: yes PT/OT: no, Reason/Intervention: Not clinically appropriate GOALS/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
[2022-07-07 16:21] LABS: BE 15 mmol/L (-2-3); FIO2 50 %; HCO3 42 mmol/L (22-26); Site Left Radial; pH 7.26 (7.35-7.45); pO2 72 mmHg (80-105); sO2 95 % (95-98); tCO2 40 mmol/L (23-27)
[2022-07-07 16:23] LABS: pCO2 94 mmHg (35-45)
[2022-07-07] MEDS: Rivaroxaban 10 MG TABLET 20 MG PO (17:45)
[2022-07-07 18:47] LABS: BE (Venous) > 15 mmol/L (-2-3); HCO3 (Venous) 44 mmol/L (23-28); O2 Sat (Venous) 80 %; TCO2 (Venous) 41 mmol/L (24-29); pH (Venous) 7.33 (7.31-7.41); pO2 (Venous) 42 mmHg
[2022-07-07 18:48] LABS: pCO2 (Venous) 84 mmHg (41-51)
[2022-07-07 19:01] LABS: Anion Gap -1.9 mmol/L (3-11); BUN 24 mg/dL (7-18); CO2 41.9 mmol/L (21.0-32.0); CREATININE 1.2 mg/dL (0.55-1.02); Calcium 8.6 mg/dL (8.5-10.1); Chloride 95 mmol/L (98-107); Estimated GFR 50.86 (mL/min/1.73m2); Glucose 140 mg/dL (74-106); Potassium 5.6 mmol/L (3.5-5.1); Sodium 135 mmol/L (136-145)
[2022-07-07] MEDS: Lacri-Lube 3.5 GM TUBE OU (21:30)
[2022-07-07] MEDS: PROPOFOL 1,000 MG/100 ML BTL 13.824 MG IVPB (23:26)
[2022-07-08] VITALS (85 sets, daily range): BP systolic 82–153; BP diastolic 44–109; PULSE 73–127; RESP 4–43; TEMP 36.6–37.2; O2SAT 39–98
[2022-07-08] MEDS: Ipratropium 0.5 MG/2.5 ML UPD VIAL UPD ×6 (02:01→21:49)
[2022-07-08] MEDS: PROPOFOL 1,000 MG/100 ML BTL 15.206 MG IVPB (05:04)
[2022-07-08] MEDS: LORazepam 2 MG/ML VIAL 1 MG IVP ×3 (05:57→19:54)
[2022-07-08] MEDS: Budesonide 0.5 MG/2 ML UPD VIAL UPD ×2 (05:58→19:12)
--- NOTE | 2022-07-08 06:19 | NUR.NOTE ---
Nursing Note: At 05:48, after patient was repositioned, patient desated to 83%, patient was agitated, restless, awake opening eyes. Vent tubings intact,administered Inj Ativa 1mg IVP prn, increased propofol gtt. Vent alarming for low VT,low Minute volume and peak pressure limitation. Patient was bitting the tube. Paiged for counter control operator RT via access at this time. After 2 minutes of oxygenation oral suction and in-line suction done, scant clear secreations. Patient sats at 89%. RT Natasha called, increased FiO2 60%, checked cuff pressure-shows 28-increased to 32. 06:10-Patient slowly calming down. Sats increased to 92% at FiO2 60%. Patient became tachycardiac HR-102, BP-140/69, RR-29.
[2022-07-08 06:43] LABS: Abs Immature Grans 0.09 10^3/uL (0.0-0.06); Absolute Eosinophil Count 0.01 10^3/uL (0.0-0.7); Absolute Lymphocyte Count 0.31 10^3/uL (1.2-3.4); Absolute Monocyte Count 0.91 10^3/uL (0.1-0.8); Eosinophils % 0.2; HCT 33.9 % (36.0-46.0); Immature Grans % 1.4; Lymphocytes % 4.8; MCH 27.3 pg (27.0-33.0); MCHC 29.5 % (32.0-36.0); MCV 93 fL (80-95); MPV 9.8 fL (8.0-11.0); Monocytes % 14.2; Neutrophils % 79.4; Platelet Count 209 10^3/uL (130-400); RBC 3.66 10^6/uL (3.93-5.22); RDW 16.5 % (11.7-14.6); RDW-SD 56.7 fL; WBC 6.42 10^3/uL (4.4-10.8)
[2022-07-08 07:02] LABS: Anion Gap -1.7 mmol/L (3-11); BUN 26 mg/dL (7-18); CO2 38.7 mmol/L (21.0-32.0); CREATININE 1.2 mg/dL (0.55-1.02); Calcium 8.3 mg/dL (8.5-10.1); Chloride 98 mmol/L (98-107); Estimated GFR 50.86 (mL/min/1.73m2); Glucose 102 mg/dL (74-106); Potassium 5.2 mmol/L (3.5-5.1); Sodium 135 mmol/L (136-145)
[2022-07-08 07:58] LABS: HCO3 (Venous) 42 mmol/L (23-28); pH (Venous) 7.37 (7.31-7.41); pO2 (Venous) 136 mmHg
[2022-07-08 07:59] LABS: BE (Venous) > 15 mmol/L (-2-3); O2 Sat (Venous) > 99 %
[2022-07-08] MEDS: methylPREDNISolone SUCC 40 MG VIAL IVP (08:05)
[2022-07-08] MEDS: Furosemide 40 MG/4 ML VIAL IVP ×2 (08:06→16:47)
[2022-07-08 08:07] LABS: pCO2 (Venous) 72 mmHg (41-51)
[2022-07-08] MEDS: Metoprolol 5 MG/5 ML VIAL IVP ×3 (08:07→19:54)
[2022-07-08] MEDS: FLUoxetine 10 MG TAB PO (08:29)
[2022-07-08] MEDS: Amiodarone 200 MG TAB NG (08:30)
[2022-07-08] MEDS: Levalbuterol 1.25 MG/3 ML UPD VIAL UPD ×3 (09:13→18:54)
--- NOTE | 2022-07-08 09:57 | W.PM.PROGNOT ---
Date of Service Date of service: 07/08/22 Time of Service: 09:00 Assessment and Plan Assessment and plan (1) Acute and chronic respiratory failure: Status: Acute Assessment and plan: triggered by COPD exacerbation due to both RSV and acute exacerbation of CHF. Failed BiPAP. Remains intubated. Continue diuresis, nebs, steroids. Will continued to monitor serial blood gasses. Respiratory acidosis finally better. Palliative care consulted. (2) COPD (chronic obstructive pulmonary disease): Status: Chronic Assessment and plan: As above Continue systemic steroids, scheduled + prn nebs, inhaled corticosteroids. Qualifiers: COPD type: COPD with acute exacerbation Qualified Code(s): J44.1 - Chronic obstructive pulmonary disease with (acute) exacerbation (3) (HFpEF) heart failure with preserved ejection fraction: Status: Acute Assessment and plan: Continue IV lasix. Qualifiers: Heart failure chronicity: acute on chronic Qualified Code(s): I50.33 - Acute on chronic diastolic (congestive) heart failure (4) Postmenopausal bleeding: Status: Acute Assessment and plan: Continue oral progesterone (5) Hyperkalemia: Status: Acute Assessment and plan: Treated with D50 + insulin x 2 and received calcium yesterday. K is 5.2. Continue diuresis. Hold spironolactone and ARB. Continue to trend K. (6) Hyponatremia: Status: Acute Assessment and plan: stable, mild, dilutional. Sodium is 135 today. Diurese and trend. (7) Renal insufficiency, mild: Status: Acute Assessment and plan: Monitor Cr while diuresing. (8) PAF (paroxysmal atrial fibrillation): Status: Acute Assessment and plan: Continue amiodarone, metoprolol; xarelto. (9) Iron deficiency anemia due to chronic blood loss: Status: Chronic Assessment and plan: Holding PO iron since intubated. (10) Mood disorder with psychosis: Assessment and plan: Did require prn IV lorazepam. Currently intubated and sedated. (11) DVT prophylaxis: Status: Resolved Assessment and plan: Continue DOAC. (12) Discharge planning issues: Status: Resolved Assessment and plan: Full code. Keep in ICU. Palliative care consulted. Total Critical Care Time 35 minutes. Subjective Subjective Interval history since last seen: Ms Hernandez remains intubated, sedated. Her FiO2 is being weaned down to 50% from 60%. About to have a sedation vacation. Remains on propofol for sedation. Has not required vasopressors. Remains in NSR. UOP adequate. Exam Narrative Exam Narrative: General: Intubated, sedated, arousable to verbal stimuli, able to move all 4 extremities, follows commands HEENT: EOMI, MMM, ET and OG tubes in place Heart: RRR Lungs: expiratory rhonchi B Abdomen: soft, nondistended Extremities: no edema BLEs, 1+ pedal pulses B, BLEs warm. Objective Last Vital Signs Temp 36.8 C 07/08/22 08:56 Pulse 95 H 07/08/22 09:42 Resp 20 07/08/22 09:42 BP 115/58 L 07/08/22 08:56 Pulse Ox 92 07/08/22 09:42 Laboratory Results - last 24 hr 07/07/22 07/07/22 07/07/22 12:28 12:28 14:10 WBC RBC Hgb Hct MCV MCH MCHC RDW Plt Count MPV Immature Gran % Neutrophils % Lymphocytes % Monocytes % Eosinophils % Basophils % Nucleated RBC % Absolute Neutrophils Absolute Lymphocytes Absolute Monocytes Absolute Eosinophils Absolute Basophils ABG Sample Site ABG pH ABG pCO2 ABG pO2 ABG HCO3 ABG Total CO2 ABG O2 Saturation ABG Base Excess VBG pH 7.20 L 7.23 L VBG pCO2 > 100 H* > 100 H* VBG pO2 64 54 VBG HCO3 VBG Total CO2 VBG O2 Saturation 91 87 VBG Base Excess Oxygen Liter Flow FiO2 Sodium 133 L Potassium 5.9 H Chloride 94 L Carbon Dioxide 41.7 H Anion Gap -2.7 L BUN 22 H Creatinine 1.1 H Est GFR (CKD-EPI 2020) 56.46 Glucose 139 H Calcium 8.9 Magnesium 07/07/22 07/07/22 07/07/22 16:10 16:37 16:37 WBC RBC Hgb Hct MCV MCH MCHC RDW Plt Count MPV Immature Gran % Neutrophils % Lymphocytes % Monocytes % Eosinophils % Basophils % Nucleated RBC % Absolute Neutrophils Absolute Lymphocytes Absolute Monocytes Absolute Eosinophils Absolute Basophils ABG Sample Site Left Radial ABG pH 7.26 L ABG pCO2 94 H* ABG pO2 72 L ABG HCO3 42 H ABG Total CO2 40 H ABG O2 Saturation 95 ABG Base Excess 15 H VBG pH 7.33 VBG pCO2 84 H* VBG pO2 42 VBG HCO3 44 H VBG Total CO2 41 H VBG O2 Saturation 80 VBG Base Excess > 15 H Oxygen Liter Flow MF FiO2 50 Sodium 135 L Potassium 5.6 H Chloride 95 L Carbon Dioxide 41.9 H Anion Gap -1.9 L BUN 24 H Creatinine 1.2 H Est GFR (CKD-EPI 2020) 50.86 Glucose 140 H Calcium 8.6 Magnesium 07/08/22 07/08/22 07/08/22 05:19 05:19 07:52 WBC 6.42 RBC 3.66 L Hgb 10.0 L Hct 33.9 L MCV 93 MCH 27.3 MCHC 29.5 L RDW 16.5 H Plt Count 209 MPV 9.8 Immature Gran % 1.4 Neutrophils % 79.4 Lymphocytes % 4.8 Monocytes % 14.2 Eosinophils % 0.2 Basophils % 0.0 Nucleated RBC % 0.0 Absolute Neutrophils 5.10 Absolute Lymphocytes 0.31 L Absolute Monocytes 0.91 H Absolute Eosinophils 0.01 Absolute Basophils 0.00 ABG Sample Site ABG pH ABG pCO2 ABG pO2 ABG HCO3 ABG Total CO2 ABG O2 Saturation ABG Base Excess VBG pH 7.37 VBG pCO2 72 H* VBG pO2 136 VBG HCO3 42 H VBG Total CO2 VBG O2 Saturation > 99 VBG Base Excess > 15 H Oxygen Liter Flow FiO2 Sodium 135 L Potassium 5.2 H Chloride 98 Carbon Dioxide 38.7 H Anion Gap -1.7 L BUN 26 H Creatinine 1.2 H Est GFR (CKD-EPI 2020) 50.86 Glucose 102 Calcium 8.3 L Magnesium 2.0 Multi-Disciplinary Checklist Lines/Tubes CENTRAL LINE: no ARTERIAL LINE: no MUNOZ: yes, Munoz Day#: 2 Note: Inserted on 07/06/22 ENDOTRACHEAL TUBE: yes, Endotracheal Tube Day#: 2 Sedation: yes, Sedation Vacation: yes Head of Bed@30 degrees: yes Spontaneous Breathing Trial: yes ICU Maintenance GLUCOSE 140-180mg/dL: no, Reason/Intervention: tube feeding is being started NUTRITION AT GOAL: no, Reason/Intervention: planning to start tube feeding PRESSURE ULCER: no RESTRAINTS: yes, Reviewed Necessity: Yes ANTIBIOTICS(if yes, consider Stewardship): Yes Social Issues FAMILY UPDATED: no, Reason/Intervention: will later today PT/OT: no, Reason/Intervention: Not clinically appropriate GOALS/DISPOSITION/FRONT END UI DEVELOPER: yes CODE STATUS: Full Prophylaxis DVT PROPHYLAXIS: yes GI PROPHYLAXIS: yes, Indication: was NPO.
[2022-07-08] MEDS: PROPOFOL 1,000 MG/100 ML BTL 4.608 MG IVPB (09:58)
[2022-07-08] MEDS: Pantoprazole 40 MG VIAL IVP (10:27)
[2022-07-08] MEDS: DOXYCYCLINE 100 MG in Normal Saline 100 ML IVPB ×2 (10:28→21:49)
[2022-07-08] MEDS: Lacri-Lube 3.5 GM TUBE OU ×2 (10:53→19:53)
--- NOTE | 2022-07-08 12:05 | NS.NUTBLAN_ITS ---
Date of service: 07/08/22 Time of Service: 12:05 Nutritional Consult ASSESSMENT: Ms. Hernandez is currently intubated with an indefinite time for being extubated. She is 152 cm and 76.1 kg. Her BMI is 32.8 kg/m2 c/w class 1 obesity. Of note, she has had a 13.5 % weight loss in two months which is clinically significant. Unsure whether or not this weight loss represents diuresis however. She is hyperkalemic with a K of 5.2 today. She is going to start tube feedings. Estimated energy needs: 1400 kcal/day based on REE x 1.1 Estimated protein needs: 76 g protein based on 1.0 g/kg/day of protein Estimated fluid needs 1400 ml/day based on 1 kcal/ml of calories provided. NUTRITIONAL DIAGNOSIS: Inability to take oral foods and fluids secondary to intubation. Unclear if her weight loss in addition to her inadequate PO intake over the past few days is sales representative education courses of a moderate malnutrition. At this time, I will not make that nutritional diagnosis. INTERVENTION: Tube feeding of Osmolite 1.5 @ 40 ml/hour continuously ordered to provide 1440 kcal/day and 60 grams of protein. This regimen provides 750 ml/day of free water. Ms. Hernandez may require some increased protein as well as increased free water to meet her hydration needs. This feeding will provide 2000 mg/day of potassium which is consistent with a standard low potassium diet. The RDI for potassium is 4500 mg. MONITORING AND EVALUATION: 1. Will monitor for s/sx of suboptimal hydration as well as inadequate protein intake. Will monitor for hyperkalemia and we may have to get in a renal friendly formula. 2. Will evaluate nutrition care plan ongoing and adjust as needed. Time Spent in Nutritional Counseling and Treatment: 0
--- NOTE | 2022-07-08 13:15 | PHA.REVIEW2 ---
Pharmacy Admission Review - Admission Clinical Review (Last Reviewed 07/07/22 @ 14:08 by Rubi Javier NP) Hyperkalemia (Acute) RSV (respiratory syncytial virus infection) (Acute) Renal insufficiency, mild (Acute) Acute and chronic respiratory failure (Acute) Palliative care encounter (Acute) PAF (paroxysmal atrial fibrillation) (Acute) SOB (shortness of breath) (Acute) Hyponatremia (Acute) (HFpEF) heart failure with preserved ejection fraction (Acute) Postmenopausal bleeding (Acute) No Known Allergies Allergy (Verified 07/06/22 05:46) Resuscitation Status Full Code Height 5 ft Weight 76.1 kg - Comments Comments/Follow Ups: RESPIRATORY FAILURE/COPD EXACERBATION DUE TO RSV/ACUTE CHF, INTUBATED - Renal Dosing Renal Dosing: BUN 26 mg/dL (7-18) H 07/08/22 05:19 Creatinine 1.2 mg/dL (0.55-1.02) H 07/08/22 05:19 Medications needing adjustments: Reviewed List of meds needing interventions: eCrCl 43 ml/min, orders ok - Anticoagulation Anticoagulation: Hgb 10.0 g/dL (11.2-15.7) L 07/08/22 05:19 Hct 33.9 % (36.0-46.0) L 07/08/22 05:19 Plt Count 209 10^3/uL (130-400) 07/08/22 05:19 INR 1.0 (0.9-1.1) 07/06/22 04:35 Creatinine 1.2 mg/dL (0.55-1.02) H 07/08/22 05:19 Therapeutic Anticoagulation: Reviewed Medications: Rivaroxaban - Opiate Usage Evaluate Pain Scale/Pains Meds: Reviewed (MORPHINE PRN, currently sedated (MV)) Scheduled Bowel Reg ordered if on Opiates?: No - Relevant Labs Sodium 135 mmol/L (136-145) L 07/08/22 05:19 Potassium 5.2 mmol/L (3.5-5.1) H 07/08/22 05:19 Chloride 98 mmol/L (98-107) 07/08/22 05:19 Magnesium 2.0 mg/dL (1.8-2.4) 07/08/22 05:19 Electrolytes, C-Reactive P, ESR: Reviewed (received insulin + D50 + calcium gluconate yesterday, spironolactone held) - DM Control DM Control: Glucose 102 mg/dL (74-106) 07/08/22 05:19 Finger Stick Blood Glucose 158 Finger Stick Blood Glucose 158 Finger Stick Blood Glucose 116 Finger Stick Blood Glucose 116 DM Control: N/A - Cardiac Review Cardiac Review: Troponin I < 50 ng/L (<or=60) 07/06/22 07:23 NT-Pro-B Natriuret Pep 1781 pg/mL (<300) H 07/06/22 04:35 BP, HR, EF%: Reviewed (HFpEF, receiving IV lasix BID, metoprolol) - Qtc Review QTc: Reviewed If Elevated, List meds needing intervention: QTc 428 on admission - IV to PO Switch IV Medications: Reviewed - Home Meds Home Med List reviewed: Reviewed Relevent Home Meds Not ordered & why?: all ordered except spironolactone (hyperkalemic) - Current meds Current Medication Order Review: Reviewed (will remain on vent through out weekend with daily sedation vacations (sedated with propofol))
[2022-07-08] MEDS: PROPOFOL 1,000 MG/100 ML BTL 23.04 MG IVPB ×2 (14:07→18:37)
[2022-07-08] MEDS: ACETAMINOPHEN 1,000 MG/100 ML BTL 400 MG IVPB (14:55)
[2022-07-08] MEDS: MORPHine 2 MG/ML SYR 1 MG IVP ×2 (14:57→19:53)
[2022-07-08] MEDS: Rivaroxaban 10 MG TABLET 20 MG PO (16:47)
[2022-07-08] MEDS: Norethindrone 5 MG TAB PO (19:53)
[2022-07-09] VITALS (78 sets, daily range): BP systolic 89–161; BP diastolic 52–93; PULSE 78–145; RESP 7–30; TEMP 36.6–36.7; O2SAT 88–96
[2022-07-09] MEDS: MORPHine 2 MG/ML SYR 1 MG IVP ×2 (00:24→14:03)
[2022-07-09] MEDS: LORazepam 2 MG/ML VIAL 1 MG IVP ×3 (00:24→14:03)
[2022-07-09] MEDS: PROPOFOL 1,000 MG/100 ML BTL 25.344 MG IVPB ×7 (00:25→21:35)
[2022-07-09] MEDS: Metoprolol 5 MG/5 ML VIAL IVP ×5 (01:44→20:10)
[2022-07-09] MEDS: Levalbuterol 1.25 MG/3 ML UPD VIAL UPD (02:55)
[2022-07-09] MEDS: Ipratropium 0.5 MG/2.5 ML UPD VIAL UPD ×6 (02:55→21:23)
[2022-07-09 06:14] LABS: Abs Immature Grans 0.06 10^3/uL (0.0-0.06); Absolute Basophil Count 0.01 10^3/uL (0.0-0.2); Absolute Lymphocyte Count 0.45 10^3/uL (1.2-3.4); Absolute Monocyte Count 0.97 10^3/uL (0.1-0.8); Absolute Neutrophil Count 5.68 10^3/uL (1.2-6.7); Basophils % 0.1; HCT 33.7 % (36.0-46.0); HGB 9.7 g/dL (11.2-15.7); Immature Grans % 0.8; Lymphocytes % 6.3; MCH 26.6 pg (27.0-33.0); MCHC 28.8 % (32.0-36.0); MCV 93 fL (80-95); MPV 9.8 fL (8.0-11.0); Monocytes % 13.5; Neutrophils % 79.3; Platelet Count 214 10^3/uL (130-400); RBC 3.64 10^6/uL (3.93-5.22); RDW 16.2 % (11.7-14.6); RDW-SD 55.7 fL; WBC 7.17 10^3/uL (4.4-10.8)
[2022-07-09 06:23] LABS: Anion Gap -2.8 mmol/L (3-11); BUN 26 mg/dL (7-18); CO2 43.8 mmol/L (21.0-32.0); Calcium 8.1 mg/dL (8.5-10.1); Chloride 97 mmol/L (98-107); Glucose 133 mg/dL (74-106); Magnesium 2.1 mg/dL (1.8-2.4); Potassium 3.9 mmol/L (3.5-5.1); Sodium 138 mmol/L (136-145)
[2022-07-09] MEDS: Budesonide 0.5 MG/2 ML UPD VIAL UPD ×2 (07:16→17:58)
[2022-07-09 07:29] LABS: Lab Add On Test DONE
[2022-07-09] MEDS: FLUoxetine 10 MG TAB NG (07:38)
[2022-07-09] MEDS: Lacri-Lube 3.5 GM TUBE OU ×2 (07:38→20:09)
[2022-07-09] MEDS: Amiodarone 200 MG TAB NG (07:38)
[2022-07-09] MEDS: Furosemide 40 MG/4 ML VIAL IVP ×2 (07:38→15:58)
[2022-07-09] MEDS: Norethindrone 5 MG TAB PO ×2 (07:39→20:09)
[2022-07-09] MEDS: Normal Saline Flush 10 ML SYR IVP ×2 (07:40→20:09)
[2022-07-09 07:58] LABS: Procalcitonin < 0.1 ng/mL
[2022-07-09] MEDS: methylPREDNISolone SUCC 40 MG VIAL IVP (08:09)
--- NOTE | 2022-07-09 08:32 | PGE_ITS ---
Date of Service Date of service: 07/09/22 Time of Service: 08:32 Assessment and Plan Assessment and plan (1) Acute and chronic respiratory failure: Status: Acute Assessment and plan: triggered by COPD exacerbation due to both RSV and acute exacerbation of CHF. Failed BiPAP. Remains intubated today. Will attempt to extubate tomorrow. Continue diuresis, nebs, steroids. Will continued to monitor serial blood gasses. Palliative care on board. Daily sedation vacation. (2) COPD (chronic obstructive pulmonary disease): Status: Chronic Assessment and plan: As above Continue systemic steroids, scheduled + prn nebs, inhaled corticosteroids. Qualifiers: COPD type: COPD with acute exacerbation Qualified Code(s): J44.1 - Chronic obstructive pulmonary disease with (acute) exacerbation (3) (HFpEF) heart failure with preserved ejection fraction: Status: Acute Assessment and plan: Continue IV lasix. Qualifiers: Heart failure chronicity: acute on chronic Qualified Code(s): I50.33 - Acute on chronic diastolic (congestive) heart failure (4) Postmenopausal bleeding: Status: Acute Assessment and plan: Continue oral progesterone (5) Hyperkalemia: Status: Resolved Assessment and plan: Treated with D50 + insulin x 2 and received calcium. K is 3.9 today. Continue diuresis and monitor K. Hold spironolactone and ARB. (6) Hyponatremia: Status: Acute Assessment and plan: stable, mild, dilutional. Sodium improved to 138 today. Diurese and trend. (7) Renal insufficiency, mild: Status: Acute Assessment and plan: Monitor Cr while diuresing. (8) PAF (paroxysmal atrial fibrillation): Status: Acute Assessment and plan: Continue amiodarone, metoprolol; xarelto. (9) Iron deficiency anemia due to chronic blood loss: Status: Chronic Assessment and plan: Holding PO iron since intubated. (10) Mood disorder with psychosis: Assessment and plan: Did require prn IV lorazepam. Currently intubated and sedated. (11) DVT prophylaxis: Status: Resolved Assessment and plan: Continue DOAC. (12) Discharge planning issues: Status: Resolved Assessment and plan: Full code. Keep in ICU. Palliative care consulted. Total Critical Care Time 35 minutes. Subjective Subjective Interval history since last seen: JULIETTE. Remains intubated, sedated with propofol. Sedation vacation this morning at around 10 am. FiO2 on vent is 35% this am. Exam Narrative Exam Narrative: General: Intubated, sedated, wakes up to painful stimulii HEENT: eyes closed, MMM, ET and OG tubes in place Heart: RRR Lungs: CTAB/vent respiratory sounds Abdomen: soft, nondistended Extremities: no edema BLEs, 1+ pedal pulses B, BLEs warm. Objective Last Vital Signs Temp 36.6 C 07/09/22 07:55 Pulse 78 07/09/22 07:55 Resp 16 07/09/22 07:55 BP 117/56 L 07/09/22 07:55 Pulse Ox 92 07/09/22 07:55 Laboratory Results - last 24 hr 07/09/22 07/09/22 07/09/22 05:13 05:13 05:13 WBC 7.17 RBC 3.64 L Hgb 9.7 L Hct 33.7 L MCV 93 MCH 26.6 L MCHC 28.8 L RDW 16.2 H Plt Count 214 MPV 9.8 Immature Gran % 0.8 Neutrophils % 79.3 Lymphocytes % 6.3 Monocytes % 13.5 Eosinophils % 0.0 Basophils % 0.1 Nucleated RBC % 0.0 Absolute Neutrophils 5.68 Absolute Lymphocytes 0.45 L Absolute Monocytes 0.97 H Absolute Eosinophils 0.00 Absolute Basophils 0.01 Sodium 138 Potassium 3.9 D Chloride 97 L Carbon Dioxide 43.8 H Anion Gap -2.8 L BUN 26 H Creatinine 1.0 Est GFR (CKD-EPI 2020) 63.30 Glucose 133 H Calcium 8.1 L Magnesium 2.1 Procalcitonin Add-On Test Request DONE 07/09/22 05:13 WBC RBC Hgb Hct MCV MCH MCHC RDW Plt Count MPV Immature Gran % Neutrophils % Lymphocytes % Monocytes % Eosinophils % Basophils % Nucleated RBC % Absolute Neutrophils Absolute Lymphocytes Absolute Monocytes Absolute Eosinophils Absolute Basophils Sodium Potassium Chloride Carbon Dioxide Anion Gap BUN Creatinine Est GFR (CKD-EPI 2020) Glucose Calcium Magnesium Procalcitonin < 0.1 Add-On Test Request Multi-Disciplinary Checklist Lines/Tubes CENTRAL LINE: no ARTERIAL LINE: no MUNOZ: yes, Munoz Day#: 3 ENDOTRACHEAL TUBE: yes, Endotracheal Tube Day#: 2 Sedation: yes, Sedation Vacation: yes Head of Bed@30 degrees: yes Spontaneous Breathing Trial: no, Reason/Intervention: No plan to extubate today ICU Maintenance GLUCOSE 140-180mg/dL: yes NUTRITION AT GOAL: yes PRESSURE ULCER: no RESTRAINTS: yes, Reviewed Necessity: Yes ANTIBIOTICS(if yes, consider Stewardship): Yes Social Issues FAMILY UPDATED: no, Reason/Intervention: will update later PT/OT: no, Reason/Intervention: Not clinically appropriate GOALS/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
[2022-07-09] MEDS: DOXYCYCLINE 100 MG in Normal Saline 100 ML IVPB ×2 (10:08→21:23)
[2022-07-09] MEDS: Pantoprazole 40 MG VIAL IVP (10:15)
--- NOTE | 2022-07-09 14:30 | RT.EKG_ITS ---
APPROVED REPORT Exam: Resting ECG Reason for Exam: Rapid AFib Patient Location: I HR:117 bpm ECG Measurements Heart Rate 117 AXIS MO [id number] P [id number] QRSd 86 QRS -17 QT 318 T 55 QTc 444 Conclusion Atrial fibrillation...? atrial activity Borderline left axis deviation...QRS axis (-15,-29) Abnormal R-wave progression, late transition...QRS area<0 in V5/V6
[2022-07-09] MEDS: Rivaroxaban 10 MG TABLET 20 MG PO (16:35)
[2022-07-09] MEDS: dilTIAZem 25 MG/5 ML VIAL 5 MG IVP (16:35)
[2022-07-09] MEDS: Amiodarone 150 MG/3 ML VIAL IVP (17:31)
[2022-07-10] VITALS (78 sets, daily range): BP systolic 49–181; BP diastolic 26–106; PULSE 63–152; RESP 8–54; TEMP 36.8–37.2; O2SAT 87–98
[2022-07-10] MEDS: PROPOFOL 1,000 MG/100 ML BTL 25.344 MG IVPB ×3 (01:30→10:14)
[2022-07-10] MEDS: Ipratropium 0.5 MG/2.5 ML UPD VIAL UPD ×5 (01:40→21:51)
[2022-07-10] MEDS: Metoprolol 5 MG/5 ML VIAL IVP ×5 (01:40→20:36)
[2022-07-10] MEDS: MORPHine 2 MG/ML SYR 1 MG IVP (01:52)
[2022-07-10] MEDS: LORazepam 2 MG/ML VIAL 1 MG IVP (01:53)
[2022-07-10] MEDS: ACETAMINOPHEN 1,000 MG/100 ML BTL 400 MG IVPB (01:53)
[2022-07-10] MEDS: Budesonide 0.5 MG/2 ML UPD VIAL UPD ×2 (06:00→18:37)
[2022-07-10 06:12] LABS: HCO3 (Venous) 44 mmol/L (23-28); O2 Sat (Venous) 93 %; TCO2 (Venous) 40 mmol/L (24-29); pCO2 (Venous) 59 mmHg (41-51); pH (Venous) 7.48 (7.31-7.41); pO2 (Venous) 61 mmHg
[2022-07-10 06:16] LABS: BE (Venous) > 15 mmol/L (-2-3)
[2022-07-10 06:22] LABS: Abs Immature Grans 0.08 10^3/uL (0.0-0.06); Absolute Basophil Count 0.01 10^3/uL (0.0-0.2); Absolute Lymphocyte Count 0.81 10^3/uL (1.2-3.4); Absolute Monocyte Count 0.57 10^3/uL (0.1-0.8); Absolute Neutrophil Count 6.27 10^3/uL (1.2-6.7); Basophils % 0.1; HCT 37.2 % (36.0-46.0); Lymphocytes % 10.5; MCH 27.3 pg (27.0-33.0); MCHC 29.6 % (32.0-36.0); MCV 92 fL (80-95); MPV 9.2 fL (8.0-11.0); Monocytes % 7.4; Platelet Count 216 10^3/uL (130-400); RBC 4.03 10^6/uL (3.93-5.22); RDW 15.9 % (11.7-14.6); WBC 7.74 10^3/uL (4.4-10.8)
[2022-07-10 06:36] LABS: Anion Gap 1.3 mmol/L (3-11); BUN 24 mg/dL (7-18); CO2 41.7 mmol/L (21.0-32.0); CREATININE 1.2 mg/dL (0.55-1.02); Calcium 8.2 mg/dL (8.5-10.1); Chloride 95 mmol/L (98-107); Estimated GFR 50.86 (mL/min/1.73m2); Glucose 147 mg/dL (74-106); Magnesium 2.1 mg/dL (1.8-2.4); PHOSPHORUS 2.8 mg/dL (2.6-4.7); Potassium 3.8 mmol/L (3.5-5.1); Sodium 138 mmol/L (136-145)
[2022-07-10] MEDS: methylPREDNISolone SUCC 40 MG VIAL IVP (08:02)
[2022-07-10] MEDS: Amiodarone 200 MG TAB NG ×2 (08:42→20:30)
[2022-07-10] MEDS: FLUoxetine 10 MG TAB NG (08:42)
[2022-07-10] MEDS: Norethindrone 5 MG TAB PO ×2 (08:42→20:30)
--- NOTE | 2022-07-10 08:42 | PGE_ITS ---
Date of Service Date of service: 07/10/22 Time of Service: 08:44 Assessment and Plan Assessment and plan (1) Acute and chronic respiratory failure: Status: Acute Assessment and plan: triggered by COPD exacerbation due to both RSV and acute exacerbation of CHF. Failed BiPAP. Remains intubated; failed weaning trial. Tachycardic - hold diuresis, give some fluid back. Continue nebs, steroids. Palliative care on board. Daily sedation vacation. Reattempt to extubate tomorrow. If fails, would transfer to a tertiary care facility. No pulmonology coverage until 07/18/22. (2) Paroxysmal atrial fibrillation with RVR: Status: Acute Assessment and plan: HR does seem to respond with boluses of IVF. She is already on levalbuterol rather than albuterol. Will continue oral amiodarone, but double the dose. Continue scheduled IV + prn IV lopressor. No response to diltiazem. Consider cardioversion if BPs low. Continue xarelto. (3) COPD (chronic obstructive pulmonary disease): Status: Chronic Assessment and plan: As above Continue systemic steroids, scheduled + prn nebs, inhaled corticosteroids. Qualifiers: COPD type: COPD with acute exacerbation Qualified Code(s): J44.1 - Chronic obstructive pulmonary disease with (acute) exacerbation (4) (HFpEF) heart failure with preserved ejection fraction: Status: Acute Assessment and plan: Suspect that the patient is dry. Hold diuresis. Carefully giving IV fluids. Qualifiers: Heart failure chronicity: acute on chronic Qualified Code(s): I50.33 - Acute on chronic diastolic (congestive) heart failure (5) Postmenopausal bleeding: Status: Acute Assessment and plan: Continue oral progesterone (6) Hyperkalemia: Status: Resolved Assessment and plan: Continue to monitor K. Hold spironolactone and ARB. (7) Hyponatremia: Status: Acute Assessment and plan: stable, mild, dilutional. Monitor now that diuresis was held. (8) Renal insufficiency, mild: Status: Acute Assessment and plan: Monitor Cr while diuresing. (9) Iron deficiency anemia due to chronic blood loss: Status: Chronic Assessment and plan: Holding PO iron since intubated. (10) Mood disorder with psychosis: Assessment and plan: Did require prn IV lorazepam. Currently intubated and sedated. (11) DVT prophylaxis: Status: Resolved Assessment and plan: Continue DOAC. (12) Discharge planning issues: Status: Resolved Assessment and plan: Full code. Keep in ICU. Palliative care consulted. Total Critical Care Time 45 minutes. Subjective Subjective Interval history since last seen: Ms Hernandez went into rapid Afib yesterday afternoon. The rates did not improve with extra IV lopressor but did respond somewhat to a push of amiodarone 150 mg. This morning, HR went up to 150s with during weaning trial, with RR in the 40s, and it was aborted after 8 minutes. She is receiving her 2nd bolus of 250 cc of LR this morning for borderline low BPs (MAPs>60). Exam Narrative Exam Narrative: General: Intubated, sedated, having stereotypic palpebral movements bilaterally, not following commands HEENT: eyes closed, MMM, not tracking, pupils equal, ET and OG tubes in place Heart: tachycardic, irregularly irregular rhythm Lungs: CTAB/vent respiratory sounds Abdomen: soft, nondistended Extremities: no edema BLEs, 1+ pedal pulses B, BLEs warm. Objective Last Vital Signs Temp 36.8 C 07/10/22 04:00 Pulse 123 H 07/10/22 07:40 Resp 11 L 07/10/22 08:00 BP 73/58 L 07/10/22 08:00 Pulse Ox 95 07/10/22 08:00 Laboratory Results - last 24 hr 07/10/22 07/10/22 07/10/22 06:05 06:05 06:05 WBC 7.74 RBC 4.03 Hgb 11.0 L Hct 37.2 MCV 92 MCH 27.3 MCHC 29.6 L RDW 15.9 H Plt Count 216 MPV 9.2 Immature Gran % 1.0 Neutrophils % 81.0 Lymphocytes % 10.5 Monocytes % 7.4 Eosinophils % 0.0 Basophils % 0.1 Nucleated RBC % 0.0 Absolute Neutrophils 6.27 Absolute Lymphocytes 0.81 L Absolute Monocytes 0.57 Absolute Eosinophils 0.00 Absolute Basophils 0.01 VBG pH 7.48 H VBG pCO2 59 H VBG pO2 61 VBG HCO3 44 H VBG Total CO2 40 H VBG O2 Saturation 93 VBG Base Excess > 15 H Sodium 138 Potassium 3.8 Chloride 95 L Carbon Dioxide 41.7 H Anion Gap 1.3 L BUN 24 H Creatinine 1.2 H Est GFR (CKD-EPI 2020) 50.86 Glucose 147 H Calcium 8.2 L Phosphorus 2.8 Magnesium 2.1 Multi-Disciplinary Checklist Lines/Tubes CENTRAL LINE: no ARTERIAL LINE: no MUNOZ: yes, Munoz Day#: 4 ENDOTRACHEAL TUBE: yes, Endotracheal Tube Day#: 3 Sedation: yes, Sedation Vacation: yes Head of Bed@30 degrees: yes Spontaneous Breathing Trial: yes ICU Maintenance GLUCOSE 140-180mg/dL: yes NUTRITION AT GOAL: yes PRESSURE ULCER: no RESTRAINTS: yes, Reviewed Necessity: Yes ANTIBIOTICS(if yes, consider Stewardship): Yes Social Issues FAMILY UPDATED: yes PT/OT: no, Reason/Intervention: not clinically appropriate GOALS/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
[2022-07-10] MEDS: Lactated Ringers 250 ML IV ×2 (09:08→09:09)
[2022-07-10] MEDS: Lacri-Lube 3.5 GM TUBE OU ×2 (09:26→20:29)
[2022-07-10] MEDS: DOXYCYCLINE 100 MG in Normal Saline 100 ML IVPB ×2 (09:36→21:51)
[2022-07-10] MEDS: Pantoprazole 40 MG VIAL IVP (10:41)
--- NOTE | 2022-07-10 11:05 | NUR.NOTE ---
heel protectors applied to prevent skin break down RN notified. Nursing Note:
[2022-07-10] MEDS: Gabapentin 100 MG CAP PO ×2 (13:52→20:30)
[2022-07-10] MEDS: Rivaroxaban 10 MG TABLET 20 MG PO (17:19)
[2022-07-10] MEDS: Levalbuterol 1.25 MG/3 ML UPD VIAL UPD (18:13)
[2022-07-10 18:37] LABS: HCO3 (Venous) 41 mmol/L (23-28); O2 Sat (Venous) 98 %; TCO2 (Venous) 37 mmol/L (24-29); pH (Venous) 7.43 (7.31-7.41); pO2 (Venous) 97 mmHg
[2022-07-10 18:38] LABS: BE (Venous) > 15 mmol/L (-2-3)
[2022-07-10 18:40] LABS: pCO2 (Venous) 62 mmHg (41-51)
[2022-07-10] MEDS: PROPOFOL 1,000 MG/100 ML BTL 16.128 MG IVPB (19:16)
--- NOTE | 2022-07-10 20:35 | PDOC.EEG_ITS ---
Neurology EEG EEG: [facility] Department of Neurology INPATIENT EEG REPORT Date of Recordin07/10/22 Interpreting Physician: Dr. Lala Rand Reason for study: Ms. Hernandez is a 61 year-old admitted with respiratory failure, currently intubated on propofol drip, with periods of eye twitching concerning for seizure activity. Current Medications: Current Medications Acetaminophen (Acetaminophen 325 Mg Tab) 650 mg PO Q4H PRN PRN Amiodarone HCl (Amiodarone 200 Mg Tab) 200 mg NG BID [facility] Last Admin: 07/10/22 20:30 Dose: 200 mg Ascorbic Acid (Ascorbic Acid 500 Mg Tab) 500 mg PO DAILY [facility] Last Admin: 07/07/22 09:40 Dose: Not Given Bisacodyl (Bisacodyl 10 Mg Supp) 10 mg [place] DAILY PRN PRN Budesonide (Budesonide 0.5 Mg/2 Ml Upd Vial) 0.5 mg UPD Q12H [facility] Last Admin: 07/10/22 18:37 Dose: 0.5 mg Chlorhexidine Gluconate (Chlorhexidine Gluconate 0.12% Mouthwash 118 Ml Btl) 0 ml MM DIRECTED [facility] Last Admin: 07/07/22 16:24 Dose: 1 ml Device (Inhaler, Assist Device) 1 each MC DIRECTED [facility] Dimethicone/Zinc Oxide (Adriana Protect Cream 142 Gm Tube) 0 gm TP PRN PRN Eszopiclone (Eszopiclone 2 Mg Tab) 2 mg PO HS [facility] Last Admin: 07/07/22 03:21 Dose: Not Given Ferrous Sulfate (Ferrous Sulfate 325 Mg Tab) 325 mg PO DAILY [facility] Last Admin: 07/07/22 09:40 Dose: Not Given Fluoxetine HCl (Fluoxetine 10 Mg Tab) 10 mg NG DAILY [facility] Last Admin: 07/10/22 08:42 Dose: 10 mg Furosemide (Furosemide 40 Mg/4 Ml Vial) 40 mg IVP BID@0800,1600 [facility] Last Admin: 07/10/22 08:30 Dose: Not Given Gabapentin (Gabapentin 100 Mg Cap) 100 mg PO TID [facility] Last Admin: 07/10/22 20:30 Dose: 100 mg Sodium Chloride (Saline 500ml Bag) 500 mls @ 0 mls/hr IV PRN PRN Last Infusion: 07/08/22 01:00 Dose: Infused Doxycycline Hyclate 100 mg/ (Sodium Chloride) 100 mls @ 100 mls/hr IVPB Q12H [facility] Last Infusion: 07/10/22 11:56 Dose: Infused Acetaminophen (Ofirmev) 1,000 mg in 100 mls @ 400 mls/hr IVPB Q8H PRN PRN Last Infusion: 07/10/22 02:10 Dose: Infused Propofol (Diprivan) 1,000 mg in 100 mls @ 2.304 mls/hr IVPB INFUSION [facility]; Protocol Last Titration: 07/10/22 19:18 Dose: 40 mcg/kg/min, 18.432 mls/hr IV Miscellaneous Supplies (Iv Access) 1 each IV DIRECTED [facility] Ipratropium [place] (Ipratropium 0.5 Mg/2.5 Ml Upd Vial) 0.5 mg UPD Q4H [facility] Last Admin: 07/10/22 18:12 Dose: 0.5 mg Levalbuterol HCl (Levalbuterol 1.25 Mg/3 Ml Upd Vial) 1.25 mg UPD Q2H PRN PRN Last Admin: 07/10/22 18:13 Dose: 1.25 mg Lorazepam (Lorazepam 2 Mg/Ml Vial) 1 mg IVP Q4H PRN PRN Last Admin: 07/10/22 01:53 Dose: 1 mg Losartan Potassium (Losartan 25 Mg Tab) 25 mg PO DAILY [facility] Last Admin: 07/06/22 13:00 Dose: Not Given Magnesium Oxide (Magnesium Oxide 400 Mg Tab) 400 mg PO [facility] Last Admin: 07/07/22 03:21 Dose: Not Given Methylprednisolone Sodium Succinate (Methylprednisolone Succ 40 Mg Vial) 40 mg IVP DAILY [facility] Last Admin: 07/10/22 08:02 Dose: 40 mg Metoprolol Succinate (Metoprolol Cr 100 Mg Tabcr) 200 mg PO [facility] Last Admin: 07/06/22 22:24 Dose: 200 mg Metoprolol Tartrate (Metoprolol 5 Mg/5 Ml Vial) 5 mg IVP Q6H [facility] Last Admin: 07/10/22 20:36 Dose: 5 mg Metoprolol Tartrate (Metoprolol 5 Mg/5 Ml Vial) 5 mg IVP Q6H PRN PRN Last Admin: 07/10/22 11:53 Dose: 5 mg Mineral Oil/White Petrolatum (Lacri-Lube 3.5 Gm Tube) 0 gm OU BID [facility] Last Admin: 07/10/22 20:29 Dose: 1 applic Mometasone Furoate (Mometasone 220 Mcg 14 Dose Inhaler) 0 puff IH BID [facility] Last Admin: 07/06/22 13:00 Dose: Not Given Morphine Sulfate (Morphine 2 Mg/Ml Syr) 1 mg IVP Q2H PRN PRN Last Admin: 07/10/22 01:52 Dose: 1 mg Multivitamins (Multivitamin Tab) 1 tab PO DAILY [facility] Last Admin: 07/07/22 09:41 Dose: Not Given Norethindrone Acetate (Norethindrone 5 Mg Tab) 5 mg PO BID [facility] Last Admin: 07/10/22 20:30 Dose: 5 mg Ondansetron HCl (Ondansetron O.D.T. 4 Mg Tabef) 4 mg PO Q6H PRN PRN PRN Reason: Nausea Pantoprazole Sodium (Pantoprazole 40 Mg Vial) 40 mg IVP Q24H [facility] Last Admin: 07/10/22 10:41 Dose: 40 mg Rivaroxaban (Rivaroxaban 10 Mg Tablet) 20 mg PO DAILY@1700 [facility] Last Admin: 07/10/22 17:19 Dose: 20 mg Sodium Chloride (Normal Saline Flush 10 Ml Syr) 0 ml IVP PRN PRN Last Admin: 07/09/22 20:09 Dose: 30 ml Tiotropium [place]/Olodaterol (Tiotropium/Olodaterol 10 Puff Inhaler) 2 puff IH DAILY [facility] Last Admin: 07/07/22 09:41 Dose: Not Given Torsemide (Torsemide 20 Mg Tab) 20 mg PO DAILY [facility] Last Admin: 07/06/22 13:01 Dose: Not Given METHODS: A 21 channel digitized electroencephalogram was performed in the [facility] Med/Surg Floor or ICU. The 10/20 international system of electrode placement was used and bipolar and referential electrode montages were recorded. In addition to EEG the patient was monitored for EKG and lateral/vertical eye movements. Activation procedures of photic stimulation and hyperventilation were performed if applicable. Video was used during activation procedures and during events where applicable. The duration of the recording was ~43 minutes. DESCRIPTION OF EEG: The EEG was manifested by moderate-amplitude, generalized, polymorphic slowing primarily in the theta range. There was no reactivity. There were rare, generalized sharp waves, but these were not clearly epileptic and did not correlate with eye movements. Activating Procedures: Photic stimulation was performed which produced no posterior driving response. Hyperventilation was not performed. EKG: EKG revealed an irregular rhythm consistent with the patient's known afib. INTERPRETATION: This EEG is abnormal due to moderate generalized slowing. PRIOR EEG: none CLINICAL CORRELATION: The background slowing is suggestive of a moderate diffuse cerebral encephalopathy of broad differential including toxic-metabolic etiology. No focal regions of cerebral dysfunction or epileptiform activity was present. The eye movements/twitching were not associated with any EEG abnormalities. Clinical correlation is advised. Lala Rand MD
[2022-07-11] VITALS (74 sets, daily range): BP systolic 103–168; BP diastolic 51–119; PULSE 91–165; RESP 8–42; TEMP 36.8–38.3; O2SAT 88–94
--- NOTE | 2022-07-11 | DI.RAD_ITS ---
Exam(s) XR PORTABLE CHEST AP EXAM: XR PORTABLE CHEST AP CLINICAL HISTORY: confirm position of OG tube. TECHNIQUE: 2D digital imaging was performed. COMPARISON: CR XR PORTABLE CHEST AP from 07/07/2022 CR XR ABDOMEN FLAT PLATE from 07/11/2022 FINDINGS: Single AP portable view. ET tube is above the misti at the clavicular level. In G tube is in stomach. Heart size is upper normal. The mediastinum is not widened. There has been some improvement in the bilateral interstitial pattern but not yet completely resolved . No large pleural effusions evident. No obvious pneumothorax nor pneumomediastinum. No fractures identified. IMPRESSION: Some improvement in the appearance of the lung camejo when compared to 07/07/2022. DATA REPOSITORY: RADIATION DOSE DELIVERED:
--- NOTE | 2022-07-11 | DI.RAD_ITS ---
Exam(s) XR ABDOMEN FLAT PLATE EXAM: XR ABDOMEN FLAT PLATE CLINICAL HISTORY: confirm position of OG tube. TECHNIQUE: 2D digital imaging was performed. COMPARISON: No exams were available for comparison FINDINGS: Single AP supine view of the abdomen: There is an NG tube in good position in the stomach along the greater curvature. The stomach is not dilated. The bowel gas pattern is nonspecific. Some infiltrate is noted in the left lung base. IMPRESSION: As above. Nonspecific bowel gas pattern. NG tube is in satisfactory position in the stomach. Its d istal tip is at the level of the distal stomach. DATA REPOSITORY: RADIATION DOSE DELIVERED:
[2022-07-11] MEDS: PROPOFOL 1,000 MG/100 ML BTL 18.432 MG IVPB ×2 (00:50→11:42)
[2022-07-11] MEDS: Metoprolol 5 MG/5 ML VIAL IVP ×6 (01:34→20:30)
[2022-07-11] MEDS: Ipratropium 0.5 MG/2.5 ML UPD VIAL UPD ×6 (01:34→21:18)
[2022-07-11 05:07] LABS: HCO3 (Venous) 40 mmol/L (23-28); O2 Sat (Venous) 98 %; TCO2 (Venous) 36 mmol/L (24-29); pCO2 (Venous) 53 mmHg (41-51); pH (Venous) 7.49 (7.31-7.41); pO2 (Venous) 96 mmHg
[2022-07-11 05:08] LABS: BE (Venous) > 15 mmol/L (-2-3)
[2022-07-11 05:14] LABS: Abs Immature Grans 0.11 10^3/uL (0.0-0.06); Absolute Basophil Count 0.03 10^3/uL (0.0-0.2); Absolute Eosinophil Count 0.01 10^3/uL (0.0-0.7); Absolute Lymphocyte Count 0.89 10^3/uL (1.2-3.4); Absolute Monocyte Count 0.98 10^3/uL (0.1-0.8); Absolute Neutrophil Count 6.85 10^3/uL (1.2-6.7); Basophils % 0.3; Eosinophils % 0.1; HCT 38.5 % (36.0-46.0); HGB 11.6 g/dL (11.2-15.7); Immature Grans % 1.2; MCH 26.9 pg (27.0-33.0); MCHC 30.1 % (32.0-36.0); MCV 89 fL (80-95); MPV 9.6 fL (8.0-11.0); Neutrophils % 77.4; Platelet Count 231 10^3/uL (130-400); RBC 4.32 10^6/uL (3.93-5.22); RDW 15.9 % (11.7-14.6); RDW-SD 52.5 fL; WBC 8.87 10^3/uL (4.4-10.8)
[2022-07-11 05:21] LABS: Anion Gap 3.3 mmol/L (3-11); BUN 30 mg/dL (7-18); CO2 38.7 mmol/L (21.0-32.0); CREATININE 1.1 mg/dL (0.55-1.02); Calcium 8.5 mg/dL (8.5-10.1); Chloride 97 mmol/L (98-107); Estimated GFR 56.46 (mL/min/1.73m2); Glucose 115 mg/dL (74-106); Magnesium 2.2 mg/dL (1.8-2.4); Potassium 4.3 mmol/L (3.5-5.1); Sodium 139 mmol/L (136-145)
[2022-07-11] MEDS: Budesonide 0.5 MG/2 ML UPD VIAL UPD ×2 (05:27→18:06)
[2022-07-11] MEDS: PROPOFOL 1,000 MG/100 ML BTL 16.128 MG IVPB (06:27)
--- NOTE | 2022-07-11 07:33 | W.PALPGNOTE ---
Date of service: 07/11/22 Time of Service: 07:33 Assessment and Plan Assessment and plan (1) RSV (respiratory syncytial virus infection): Status: Acute (2) Renal insufficiency, mild: Status: Acute (3) Acute and chronic respiratory failure: Status: Acute (4) Palliative care encounter: Status: Acute Assessment and plan: Overall Елена is intubated, sedated, does have twitching every 10 to 18 seconds. Per EEG report this is not related to her EEG findings. Her daughter states that she has had this twitching for years. Plan is to do a trial of extubation today. Her VBG's do show trending downward of her CO2. Her daughter Evonne is very helpful that she will be able to be extubated but understands that with her burden of CO PD that she may not be able to I did speak with Evonne about transfer. Evonne is not wanting her to go to a tertiary care center. She would like to see what happens over the next few days. I did relay this to Dr. Mars. Елена has been in the hospital several times this year. Additionally she has been intubated. Evonne feels strongly that in between her hospitalizations she has a good quality of life and would want to continue with aggressive care. She is understanding that at some point this may not work. I spoke with her daughter Evonne both last evening and this morning going over Елена's present condition. I also relayed this to Dr. Mars Subjective Subjective Interval history since last seen: Елена is intubated and sedated. Nursing states that she did have some problems with tachycardia overnight but is now doing better. She also did have the EEG yesterday which showed diffuse slowing. Her daughter Evonne who is her DPOA maintains that she looks so much better and her trends are better Exam Narrative Exam Narrative: Intubated, sedated, heart rate is in the 90s 200s. Breathing by vent. She is not breathing over the vent. Objective Last Vital Signs Temp 98.2 F 07/11/22 00:30 Pulse 102 H 07/11/22 06:01 Resp 18 07/11/22 06:08 BP 151/79 H 07/11/22 06:01 Pulse Ox 93 07/11/22 06:08 Laboratory Results - last 24 hr 07/10/22 07/11/22 07/11/22 18:24 04:58 04:58 WBC 8.87 RBC 4.32 Hgb 11.6 Hct 38.5 MCV 89 MCH 26.9 L MCHC 30.1 L RDW 15.9 H Plt Count 231 MPV 9.6 Immature Gran % 1.2 Neutrophils % 77.4 Lymphocytes % 10.0 Monocytes % 11.0 Eosinophils % 0.1 Basophils % 0.3 Nucleated RBC % 0.0 Absolute Neutrophils 6.85 H Absolute Lymphocytes 0.89 L Absolute Monocytes 0.98 H Absolute Eosinophils 0.01 Absolute Basophils 0.03 VBG pH 7.43 H VBG pCO2 62 H* VBG pO2 97 VBG HCO3 41 H VBG Total CO2 37 H VBG O2 Saturation 98 VBG Base Excess > 15 H Sodium 139 Potassium 4.3 Chloride 97 L Carbon Dioxide 38.7 H Anion Gap 3.3 BUN 30 H Creatinine 1.1 H Est GFR (CKD-EPI 2020) 56.46 Glucose 115 H Calcium 8.5 Magnesium 2.2 07/11/22 04:58 WBC RBC Hgb Hct MCV MCH MCHC RDW Plt Count MPV Immature Gran % Neutrophils % Lymphocytes % Monocytes % Eosinophils % Basophils % Nucleated RBC % Absolute Neutrophils Absolute Lymphocytes Absolute Monocytes Absolute Eosinophils Absolute Basophils VBG pH 7.49 H VBG pCO2 53 H VBG pO2 96 VBG HCO3 40 H VBG Total CO2 36 H VBG O2 Saturation 98 VBG Base Excess > 15 H Sodium Potassium Chloride Carbon Dioxide Anion Gap BUN Creatinine Est GFR (CKD-EPI 2020) Glucose Calcium Magnesium DESCRIPTION OF EEG: The EEG was manifested by moderate-amplitude, generalized, polymorphic slowing primarily in the theta range. There was no reactivity.? There were rare, generalized sharp waves, but these were not clearly epileptic and did not correlate with eye movements.? Laboratory Tests 07/07/22 07/08/22 07/10/22 16:37 07:52 18:24 VBG pCO2 84 H* 72 H* 62 H* 07/11/22 04:58 VBG pCO2 53 H
--- NOTE | 2022-07-11 09:10 | CMPROGNOTE_ITS ---
- If Service Date Differs Date of service: 07/11/22 Time of Service: 09:10 Care Management Progress Note S/O: Елена remains intubated in the ICU. CM spoke with daughter, Evonne who reported speaking with Dr. Cheney this morning and feeling confident about current treatment course; she does not want transfer. CM will continue to follow. A: Deepthi is a 61 year old female admitted to [facility] on 07/06/22 for COPD exacerbation. P: Anticipate Елена will discharge home with a resumption of RN services when medically cleared by provider. She will follow up with her PCP, pulmonology and plan of care as prescribed. She will be transported home by family via private vehicle when ready. CM will continue to support Елена, her family and any discharge planning needs.
--- NOTE | 2022-07-11 09:20 | NUR.NOTE ---
0908: Vacation sedation started at this time. Respiratory tx, Natasha, RNs Charlene Young & Mariah Abdullahi, in room. Propofol titrated down, pt able to open eyes, and nod her head to simple commands. Propofol down to 10mcg/kg/min at the lowest. Pt unable to tolerate for more than 7-9 minutes. Heart rate increased to 140-150, heart rhythm converted rapid a-fib with these heart rates. Respiratory rates up to 30-40, ETCO2 down to 44. Patient taken off spontaneous trial and was put back on assist control and propofol was increased to 40mcg/kg/min. Patient is currently resting at this time with heart rate of 105, respiratory rate of 22, ETCO2 46, O2 sat 93%. See documented vent settings and documented propofol titration in EMAR. Dr. Mars updated by RNs and RT.
--- NOTE | 2022-07-11 09:48 | W.NUTRFU ---
Date of service: 07/11/22 Time of Service: 09:49 Nutrition Note NOTE: Nursing reports that Osmolite 1.5 tube feeding has been clogging pump. Potassium has normalized and is wnl. Recommend switch to less concentrated formula- Jevity 1.2 @50 cc/hour, flush 200 cc q 4 hours provides total of 1440 kcal, 65 g protein, 2100 ml fluid. Time Spent in Nutritional Counseling and Treatment: 0
[2022-07-11] MEDS: Levalbuterol 1.25 MG/3 ML UPD VIAL UPD ×3 (10:23→18:06)
[2022-07-11] MEDS: DOXYCYCLINE 100 MG in Normal Saline 100 ML IVPB ×2 (10:26→21:19)
[2022-07-11] MEDS: Pantoprazole 40 MG VIAL IVP (10:27)
[2022-07-11] MEDS: FLUoxetine 10 MG TAB NG (10:28)
[2022-07-11] MEDS: Amiodarone 200 MG TAB NG ×2 (10:28→20:31)
[2022-07-11] MEDS: methylPREDNISolone SUCC 40 MG VIAL IVP (10:28)
[2022-07-11] MEDS: Lacri-Lube 3.5 GM TUBE OU ×2 (10:28→21:18)
[2022-07-11] MEDS: Norethindrone 5 MG TAB PO ×2 (10:29→20:31)
[2022-07-11] MEDS: Gabapentin 100 MG CAP PO ×3 (10:29→20:29)
--- NOTE | 2022-07-11 12:27 | PGE_ITS ---
Date of Service Date of service: 07/11/22 Time of Service: 10:40 Assessment and Plan Assessment and plan (1) Acute and chronic respiratory failure: Status: Acute Assessment and plan: triggered by COPD exacerbation due to both RSV and acute exacerbation of CHF. Failed BiPAP. Remains intubated; failed weaning trial for the 2nd time today. Continue to hold diuresis today. Continue nebs, steroids. Obtaining CXR today given the nursing observation that the patient went into rapid Afib with TFs - I would like to confirm OG tube placement. Will reattempt weaning tomorrow. Consider precedex for weaning. Palliative care on board - daughter states no transfer to a tertiary care facility for the next couple of days. Daily sedation vacations. No pulmonology coverage in house until 07/18/22. (2) Paroxysmal atrial fibrillation with RVR: Status: Acute Assessment and plan: Obtain CXR to ensure position of OG tube (Rapid Afib occurred at initiation of TFs today). She is already on levalbuterol rather than albuterol. Will continue l amiodarone 200 mg per tube BID for now. Continue scheduled IV + prn IV lopressor. No response to diltiazem. Consider cardioversion if BPs low. Continue xarelto. (3) COPD (chronic obstructive pulmonary disease): Status: Chronic Assessment and plan: As above Continue systemic steroids, scheduled + prn nebs, inhaled corticosteroids. Qualifiers: COPD type: COPD with acute exacerbation Qualified Code(s): J44.1 - Chronic obstructive pulmonary disease with (acute) exacerbation (4) (HFpEF) heart failure with preserved ejection fraction: Status: Acute Assessment and plan: Suspect that the patient is dry. Hold diuresis. BOlus IVF as needed. Qualifiers: Heart failure chronicity: acute on chronic Qualified Code(s): I50.33 - Acute on chronic diastolic (congestive) heart failure (5) Postmenopausal bleeding: Status: Acute Assessment and plan: Continue oral progesterone (6) Hyperkalemia: Status: Resolved Assessment and plan: Continue to monitor K. Hold spironolactone and ARB. (7) Hyponatremia: Status: Acute Assessment and plan: stable, mild, dilutional. Monitor now that diuresis was held. (8) Renal insufficiency, mild: Status: Acute Assessment and plan: Monitor Cr while diuresing. (9) Iron deficiency anemia due to chronic blood loss: Status: Chronic Assessment and plan: Holding PO iron since intubated. (10) Mood disorder with psychosis: Assessment and plan: Did require prn IV lorazepam. Currently intubated and sedated. (11) DVT prophylaxis: Status: Resolved Assessment and plan: Continue DOAC. (12) Discharge planning issues: Status: Resolved Assessment and plan: Full code. Keep in ICU. Palliative care consulted. Total Critical Care Time 45 minutes. Subjective Subjective Interval history since last seen: Failed weaning trial again today. She became very tachypneic and tachycardic. Daughter Evonne spoke with Dr Cheney and expressed that she would rather Deepthi not be transferred to a tertiary care facility for the next couple of days. At the time of my exam, the patient wakes up to being turned in bed, but not to verbal commands. Going in and out of rapid Afib. Nursing notes today that apparently tube feeding was held for the majority of the day yesterday because of issues with the pump. Today, when it was restarted, the patient went back into rapid Afib from NSR. Exam Narrative Exam Narrative: General: Intubated, sedated, no longer having the stereotypic palpebral movements, not following commands, responds to painful stimuli only (turning). HEENT: eyes closed, MMM, ET and OG tubes in place Heart: tachycardic, irregularly irregular rhythm Lungs: Diminished ent respiratory sounds Abdomen: soft, nondistended Extremities: no edema BLEs, 1+ pedal pulses B, BLEs warm. Objective Last Vital Signs Temp 37.8 C H 07/11/22 12:06 Pulse 120 H 07/11/22 12:01 Resp 27 H 07/11/22 12:03 BP 136/119 H 07/11/22 12:03 Pulse Ox 91 L 07/11/22 12:03 Laboratory Results - last 24 hr 07/10/22 07/11/22 07/11/22 18:24 04:58 04:58 WBC 8.87 RBC 4.32 Hgb 11.6 Hct 38.5 MCV 89 MCH 26.9 L MCHC 30.1 L RDW 15.9 H Plt Count 231 MPV 9.6 Immature Gran % 1.2 Neutrophils % 77.4 Lymphocytes % 10.0 Monocytes % 11.0 Eosinophils % 0.1 Basophils % 0.3 Nucleated RBC % 0.0 Absolute Neutrophils 6.85 H Absolute Lymphocytes 0.89 L Absolute Monocytes 0.98 H Absolute Eosinophils 0.01 Absolute Basophils 0.03 VBG pH 7.43 H VBG pCO2 62 H* VBG pO2 97 VBG HCO3 41 H VBG Total CO2 37 H VBG O2 Saturation 98 VBG Base Excess > 15 H Sodium 139 Potassium 4.3 Chloride 97 L Carbon Dioxide 38.7 H Anion Gap 3.3 BUN 30 H Creatinine 1.1 H Est GFR (CKD-EPI 2020) 56.46 Glucose 115 H Calcium 8.5 Magnesium 2.2 07/11/22 04:58 WBC RBC Hgb Hct MCV MCH MCHC RDW Plt Count MPV Immature Gran % Neutrophils % Lymphocytes % Monocytes % Eosinophils % Basophils % Nucleated RBC % Absolute Neutrophils Absolute Lymphocytes Absolute Monocytes Absolute Eosinophils Absolute Basophils VBG pH 7.49 H VBG pCO2 53 H VBG pO2 96 VBG HCO3 40 H VBG Total CO2 36 H VBG O2 Saturation 98 VBG Base Excess > 15 H Sodium Potassium Chloride Carbon Dioxide Anion Gap BUN Creatinine Est GFR (CKD-EPI 2020) Glucose Calcium Magnesium Objective Narrative Objective Narrative: EEG: The background slowing is suggestive of a moderate diffuse cerebral en cephalopathy of broad differential including toxic-metabolic etiology.? No focal regions of cerebral dysfunction or epileptiform activity was present.? The eye movements/twitching were not associated with any EEG abnormalities.? Clinical correlation is advised. Multi-Disciplinary Checklist Lines/Tubes CENTRAL LINE: no MUNOZ: yes, Munoz Day#: 5 ENDOTRACHEAL TUBE: yes, Endotracheal Tube Day#: 4 Sedation: yes, Sedation Vacation: yes Head of Bed@30 degrees: yes Spontaneous Breathing Trial: yes ICU Maintenance GLUCOSE 140-180mg/dL: no, Reason/Intervention: TF restarted this morning NUTRITION AT GOAL: no, Reason/Intervention: XR pending to confirm position of OG tube PRESSURE ULCER: no RESTRAINTS: yes, Reviewed Necessity: Yes ANTIBIOTICS(if yes, consider Stewardship): Yes Social Issues FAMILY UPDATED: yes PT/OT: no, Reason/Intervention: not clinically appropriate GOALS/DISPOSITION/CH[employer] BUTCHER: yes CODE STATUS: Full Prophylaxis DVT PROPHYLAXIS: yes GI PROPHYLAXIS: yes, Indication: chronically on a PPI
[2022-07-11] MEDS: MORPHine 2 MG/ML SYR 1 MG IVP (14:05)
[2022-07-11] MEDS: ACETAMINOPHEN 1,000 MG/100 ML BTL 400 MG IVPB (15:14)
[2022-07-11 15:36] LABS: C-Reactive Protein 1.22 mg/dL (0.0-0.3)
[2022-07-11 16:14] LABS: Procalcitonin < 0.1 ng/mL
[2022-07-11] MEDS: PROPOFOL 1,000 MG/100 ML BTL 20.736 MG IVPB (16:39)
[2022-07-11 16:42] LABS: COVID-19 PCR Negative (Negative); Influenza A PCR Negative (Negative); Influenza B PCR Negative (Negative)
[2022-07-11 16:49] LABS: RSV PCR Positive (Negative); Source Nasopharynx
[2022-07-11] MEDS: Rivaroxaban 10 MG TABLET 20 MG PO (17:41)
[2022-07-11 17:47] LABS: Bilirubin Negative (Negative); Blood Small (Negative); Clarity Cloudy (Clear); Glucose Negative (Negative); Ketones Negative (Negative); Leukocyte Esterase Negative (Negative); Nitrite Negative (Negative); Urobilinogen 0.2 EU/dL (Up TO 0.2); pH 5.5 (5-8)
[2022-07-11 17:53] LABS: Bacteria Rare HPF (Negative); C & S Indicated? C&S Done As Ordered; Crystals Negative HPF (Negative); Epithelial Cells Moderate HPF (Negative); Mucus Moderate (Negative); Other Cells Few Renal (Negative); RBC >50 HPF (0-2)
[2022-07-11] MEDS: Acetaminophen 500 MG TAB (20:30)
[2022-07-11] MEDS: LORazepam 2 MG/ML VIAL 1 MG IVP (20:30)
[2022-07-11] MEDS: Normal Saline Flush 10 ML SYR IVP (20:31)
[2022-07-11] MEDS: PROPOFOL 1,000 MG/100 ML BTL 23.04 MG IVPB (21:18)
[2022-07-12] VITALS (52 sets, daily range): BP systolic 59–132; BP diastolic 46–87; PULSE 91–146; RESP 8–31; TEMP 36.7–37.7; O2SAT 88–97
[2022-07-12] MEDS: PROPOFOL 1,000 MG/100 ML BTL 23.04 MG IVPB ×2 (00:58→05:15)
[2022-07-12] MEDS: Metoprolol 5 MG/5 ML VIAL IVP ×6 (00:58→22:17)
[2022-07-12] MEDS: Ipratropium 0.5 MG/2.5 ML UPD VIAL UPD ×6 (00:58→22:10)
[2022-07-12] MEDS: LORazepam 2 MG/ML VIAL 1 MG IVP ×3 (01:49→23:49)
[2022-07-12] MEDS: MORPHine 2 MG/ML SYR 1 MG IVP ×2 (01:49→05:14)
--- NOTE | 2022-07-12 02:00 | RT.EKG_ITS ---
APPROVED REPORT Exam: Resting ECG Reason for Exam: ST elevation Patient Location: I HR:130 bpm ECG Measurements Heart Rate 130 AXIS FL 157 P 258 QRSd 84 QRS -58 QT 290 T 92 QTc 427 Conclusion tachycardia, unifocal...abnormal P axis, V-rate> 99 Inferolateral infarct, old...Q >40mS, inf-lat leads May be atrial flutter
[2022-07-12] MEDS: Budesonide 0.5 MG/2 ML UPD VIAL UPD ×2 (05:14→18:24)
[2022-07-12 06:16] LABS: Absolute Basophil Count 0.01 10^3/uL (0.0-0.2); Absolute Lymphocyte Count 0.45 10^3/uL (1.2-3.4); Absolute Neutrophil Count 5.47 10^3/uL (1.2-6.7); Basophils % 0.1; HCT 34.4 % (36.0-46.0); HGB 10.3 g/dL (11.2-15.7); Immature Grans % 1.5; Lymphocytes % 6.6; MCH 27.3 pg (27.0-33.0); MCHC 29.9 % (32.0-36.0); MCV 91 fL (80-95); MPV 10.1 fL (8.0-11.0); Monocytes % 11.7; Neutrophils % 80.1; Platelet Count 190 10^3/uL (130-400); RBC 3.77 10^6/uL (3.93-5.22); RDW 15.8 % (11.7-14.6); RDW-SD 52.4 fL; WBC 6.83 10^3/uL (4.4-10.8)
[2022-07-12 06:29] LABS: Anion Gap -0.5 mmol/L (3-11); BUN 26 mg/dL (7-18); CO2 41.5 mmol/L (21.0-32.0); CREATININE 0.8 mg/dL (0.55-1.02); Calcium 8.6 mg/dL (8.5-10.1); Chloride 101 mmol/L (98-107); Estimated GFR 82.74 (mL/min/1.73m2); Glucose 139 mg/dL (74-106); Magnesium 2.3 mg/dL (1.8-2.4); Potassium 3.8 mmol/L (3.5-5.1); Sodium 142 mmol/L (136-145)
[2022-07-12 06:55] LABS: Troponin I < 50 ng/L (<or=60)
[2022-07-12] MEDS: methylPREDNISolone SUCC 40 MG VIAL IVP (08:53)
[2022-07-12] MEDS: Norethindrone 5 MG TAB PO (08:53)
[2022-07-12] MEDS: FLUoxetine 10 MG TAB NG (08:53)
[2022-07-12] MEDS: Amiodarone 200 MG TAB NG (08:54)
[2022-07-12] MEDS: Gabapentin 100 MG CAP PO (08:54)
[2022-07-12] MEDS: DOXYCYCLINE 100 MG in Normal Saline 100 ML IVPB ×2 (08:54→22:17)
[2022-07-12] MEDS: dexmedeTOMidine IN 0.9 % NACL 400 MCG/100 ML BTL IVPB (08:55)
[2022-07-12] MEDS: Lacri-Lube 3.5 GM TUBE OU ×2 (09:43→20:05)
[2022-07-12] MEDS: Levalbuterol 1.25 MG/3 ML UPD VIAL UPD ×3 (10:11→17:50)
[2022-07-12] MEDS: PROPOFOL 1,000 MG/100 ML BTL 4.608 MG IVPB (10:50)
[2022-07-12] MEDS: Pantoprazole 40 MG VIAL IVP (10:50)
[2022-07-12 12:12] LABS: HCO3 (Venous) 41 mmol/L (23-28); O2 Sat (Venous) 94 %; TCO2 (Venous) 38 mmol/L (24-29); pO2 (Venous) 65 mmHg
[2022-07-12 12:17] LABS: BE (Venous) > 15 mmol/L (-2-3)
[2022-07-12 12:18] LABS: pCO2 (Venous) 66 mmHg (41-51)
[2022-07-12] MEDS: VANCOMYCIN/WATER (PEG) 1.5 GM/300 ML BAG IVPB (12:41)
[2022-07-12] MEDS: cefTRIAXone 2 GM/50 ML BAG IVPB (12:41)
--- NOTE | 2022-07-12 14:09 | PGE_ITS ---
Date of Service Date of service: 07/12/22 Time of Service: 14:09 Assessment and Plan Assessment and plan (1) Acute and chronic respiratory failure: Status: Acute Assessment and plan: triggered by COPD exacerbation due to both RSV and acute exacerbation of CHF. Extubated to BiPAP today with the use of precedex. Anesthesia on standby should re-intubation become necessary. Check VBG at 3 pm. Hold diuretics for now. Continue nebs, steroids. Palliative care on board - daughter states no transfer to a tertiary care facility for the next couple of days. No pulmonology coverage in house until 07/18/22. (2) Sepsis: Status: Acute Assessment and plan: Febrile, 1 blood cx 07/11/22 positive for GPCs. Started on empiric vancomcyin/ceftriaxone. Blood cultures to be repeated tomorrow. Continue empiric abx. (3) Paroxysmal atrial fibrillation with RVR: Status: Acute Assessment and plan: Currently in sinus tach which does not seem to be affected by the respiratory status and is not responding to beta blockers or amiodarone PO. Will trial a dose of 5 mg of IV cardizem x1. She is already on levalbuterol rather than albuterol. Will continue amiodarone 200 mg PO BId and convert back to PO lopressor once passess swallow eval. Continue scheduled IV + prn IV lopressor for now. Continue xarelto. (4) COPD (chronic obstructive pulmonary disease): Status: Chronic Assessment and plan: As above Continue systemic steroids, scheduled + prn nebs, inhaled corticosteroids. Qualifiers: COPD type: COPD with acute exacerbation Qualified Code(s): J44.1 - Chronic obstructive pulmonary disease with (acute) exacerbation (5) (HFpEF) heart failure with preserved ejection fraction: Status: Acute Assessment and plan: Not currently in fluid overload Hold diuresis. Control rate. Qualifiers: Heart failure chronicity: acute on chronic Qualified Code(s): I50.33 - Acute on chronic diastolic (congestive) heart failure (6) Postmenopausal bleeding: Status: Acute Assessment and plan: Continue oral progesterone (7) Hyperkalemia: Status: Resolved Assessment and plan: Continue to monitor K. Hold spironolactone and ARB. (8) Hyponatremia: Status: Acute Assessment and plan: stable, mild, dilutional. Monitor now that diuresis was held. (9) Renal insufficiency, mild: Status: Acute Assessment and plan: Monitor Cr while diuresing. (10) Iron deficiency anemia due to chronic blood loss: Status: Chronic Assessment and plan: Holding PO iron for now (11) Mood disorder with psychosis: Assessment and plan: Did require prn IV lorazepam. For now, on precedex and doing well. May require IV lorazepam once off of precedex. (12) DVT prophylaxis: Status: Resolved Assessment and plan: Continue DOAC. (13) Discharge planning issues: Status: Resolved Assessment and plan: Full code. Keep in ICU. Palliative care consulted. Total Critical Care Time 45 minutes. Discussed with Daughter Evonne Subjective Subjective Interval history since last seen: Ms Hernandez was just extubated to BiPAP 20/8 FiO2 35% and is doing well. She was bridged from propofol to precedex and had done well with SBP for almost five hours, was easily arousable, following commands, answering questions, communicating. She is requesting water. Has been in sinus tachycardia in 130s most of the night and today. 1 blood cx positive for GPCs. Febrile yesterday to 38.3. Afebrile so far today. Exam Narrative Exam Narrative: Seen on multiple occasions today General: Extubated to BiPAP, opens eyes to voice, answers questions, follows commands HEENT: opens eyes, tracks, EOMI, MMM Heart: tachycardic, RRR Lungs: CTAB Abdomen: soft, nondistended Extremities: no edema BLEs, 1+ pedal pulses B, BLEs warm. Objective Last Vital Signs Temp 37.7 C H 07/12/22 12:00 Pulse 137 H 07/12/22 14:00 Resp 17 07/12/22 14:00 BP 94/65 L 07/12/22 14:00 Pulse Ox 93 07/12/22 14:00 Laboratory Results - last 24 hr 07/11/22 07/11/22 07/11/22 15:10 15:10 15:48 WBC RBC Hgb Hct MCV MCH MCHC RDW Plt Count MPV Immature Gran % Neutrophils % Lymphocytes % Monocytes % Eosinophils % Basophils % Nucleated RBC % Absolute Neutrophils Absolute Lymphocytes Absolute Monocytes Absolute Eosinophils Absolute Basophils VBG pH VBG pCO2 VBG pO2 VBG HCO3 VBG Total CO2 VBG O2 Saturation VBG Base Excess VBG Lactate 1.0 Sodium Potassium Chloride Carbon Dioxide Anion Gap BUN Creatinine Est GFR (CKD-EPI 2020) Glucose Calcium Magnesium Troponin I C-Reactive Protein 1.22 H Procalcitonin < 0.1 Urine Color Urine Clarity Urine pH Ur Specific [place] Urine Protein Urine Ketones Urine Blood Urine Nitrite Urine Bilirubin Urine Urobilinogen Ur Leukocyte Esterase Urine RBC Urine WBC Ur Epithelial Cells Urine Crystals Urine Bacteria Urine Mucus Urine Other Ur Culture Indicated? Urine Glucose COVID-19 Source Nasopharynx SARS-CoV-2 (PCR) Negative Influenza Type A (PCR) Negative Influenza Type B (PCR) Negative RSV (PCR) Positive A* 07/11/22 07/12/22 07/12/22 17:28 05:15 05:15 WBC 6.83 RBC 3.77 L Hgb 10.3 L Hct 34.4 L MCV 91 MCH 27.3 MCHC 29.9 L RDW 15.8 H Plt Count 190 MPV 10.1 Immature Gran % 1.5 Neutrophils % 80.1 Lymphocytes % 6.6 Monocytes % 11.7 Eosinophils % 0.0 Basophils % 0.1 Nucleated RBC % 0.0 Absolute Neutrophils 5.47 Absolute Lymphocytes 0.45 L Absolute Monocytes 0.80 Absolute Eosinophils 0.00 Absolute Basophils 0.01 VBG pH VBG pCO2 VBG pO2 VBG HCO3 VBG Total CO2 VBG O2 Saturation VBG Base Excess VBG Lactate Sodium 142 Potassium 3.8 Chloride 101 Carbon Dioxide 41.5 H Anion Gap -0.5 L BUN 26 H Creatinine 0.8 Est GFR (CKD-EPI 2020) 82.74 Glucose 139 H Calcium 8.6 Magnesium 2.3 Troponin I C-Reactive Protein Procalcitonin Urine Color Yellow Urine Clarity Cloudy Urine pH 5.5 Ur Specific [place] 1.020 Urine Protein 100 H Urine Ketones Negative Urine Blood Small H Urine Nitrite Negative Urine Bilirubin Negative Urine Urobilinogen 0.2 Ur Leukocyte Esterase Negative Urine RBC >50 H Urine WBC 3-5 Ur Epithelial Cells Moderate Urine Crystals Negative Urine Bacteria Rare Urine Mucus Moderate Urine Other Few Renal Ur Culture Indicated? C&S Done As Ordered Urine Glucose Negative COVID-19 Source SARS-CoV-2 (PCR) Influenza Type A (PCR) Influenza Type B (PCR) RSV (PCR) 07/12/22 07/12/22 05:15 12:05 WBC RBC Hgb Hct MCV MCH MCHC RDW Plt Count MPV Immature Gran % Neutrophils % Lymphocytes % Monocytes % Eosinophils % Basophils % Nucleated RBC % Absolute Neutrophils Absolute Lymphocytes Absolute Monocytes Absolute Eosinophils Absolute Basophils VBG pH 7.40 VBG pCO2 66 H* VBG pO2 65 VBG HCO3 41 H VBG Total CO2 38 H VBG O2 Saturation 94 VBG Base Excess > 15 H VBG Lactate Sodium Potassium Chloride Carbon Dioxide Anion Gap BUN Creatinine Est GFR (CKD-EPI 2020) Glucose Calcium Magnesium Troponin I < 50 C-Reactive Protein Procalcitonin Urine Color Urine Clarity Urine pH Ur Specific [place] Urine Protein Urine Ketones Urine Blood Urine Nitrite Urine Bilirubin Urine Urobilinogen Ur Leukocyte Esterase Urine RBC Urine WBC Ur Epithelial Cells Urine Crystals Urine Bacteria Urine Mucus Urine Other Ur Culture Indicated? Urine Glucose COVID-19 Source SARS-CoV-2 (PCR) Influenza Type A (PCR) Influenza Type B (PCR) RSV (PCR)
[2022-07-12] MEDS: dilTIAZem 25 MG/5 ML VIAL 5 MG IVP (14:49)
[2022-07-12 15:17] LABS: HCO3 (Venous) 40 mmol/L (23-28); O2 Sat (Venous) 96 %; TCO2 (Venous) 36 mmol/L (24-29); pCO2 (Venous) 56 mmHg (41-51); pH (Venous) 7.46 (7.31-7.41); pO2 (Venous) 71 mmHg
[2022-07-12 15:18] LABS: BE (Venous) > 15 mmol/L (-2-3)
--- NOTE | 2022-07-12 16:29 | CMPROGNOTE_ITS ---
- If Service Date Differs Date of service: 07/12/22 Time of Service: 16:29 Care Management Progress Note S/O: Елена was successfully extubated today and remains on BIPAP in the ICU, per trilogy is at [facility]: RT is determining if patient is permitted to use home trilogy machine at [facility]. CM will continues to follow. A: Deepthi is a 61 year old female admitted to [facility] on 07/06/22 for COPD exacerbation. P: Anticipate Елена will discharge home with a resumption of RN services when medically cleared by provider. She will follow up with her PCP, pulmonology and plan of care as prescribed. She will be transported home by family via private vehicle when ready. CM will continue to support Елена, her family and any discharge planning needs.
[2022-07-12] MEDS: Lactated Ringers 250 ML IV (16:55)
--- NOTE | 2022-07-12 17:24 | STREC_ITS ---
Date of service: 07/12/22 Time of Service: 17:24 Speech Therapy Recommendations Report ST Recommendations: HPI: 61 yo F with chronic respiratory failure secondary to COPD from RSV and HFpEF with home trilogy-type respirator, presenting with 3-4 days of progressive increase in shortness of breath.? She hasn't been able to breath for the past 2 nights due to SOB.? She has some increase cough that is minimally productive.? Some chest tightness, no chest pain.? She hasn't had notable runny nose or congestion, mild SOB. She is known to SR. STRATEGIC SOURCING MANAGER service from previous hospitalizations upon extubation. Not found with any significant underlying dysphagia, but initially put on modified diet due to increased work of breathing, fatigue with chewing and to reduce risk of aspiration/choking in setting of reduced coordination of respiration & deglutition. SR. STRATEGIC SOURCING MANAGER recommendations/Plan: Chart reviewed. Spoke with ICU nurse Shey who reports patient is still on Bipap and with precedex for extubation. When BiPap has been removed for oral care, etc, patient has been unable to tolerate, desats to low 80's within minutes. RN not comfortable with bedside clinical swallow evaluation occurring this date due to respiratory needs. No SR. STRATEGIC SOURCING MANAGER on site tomorrow, therefore will provide remote recommendations via telephone based on nursing report and known good baseline swallow status. If respiratory status improves and patient is able to tolerate longer periods without BiPap, it is reasonable to expect that she could trial some ice chips at a minimum with nursing present tomorrow with remote collaboration of SR. STRATEGIC SOURCING MANAGER. Continue NPO status for now. PFSH All Active Problems? Renal insufficiency, mild (Acute) Anemia (Chronic) Leucocytosis (Acute) Acute and chronic respiratory failure (Acute) Carotid artery occlusion (Acute) Peripheral arterial occlusive disease (Chronic) Palliative care encounter (Acute) Ischemia of foot (Acute) PAF (paroxysmal atrial fibrillation) (Acute) Respiratory failure with hypoxia and hypercapnia (Acute) SOB (shortness of breath) (Acute) Hypercarbia (Acute) Vaginal bleeding (Acute) Hyponatremia (Acute) Pulmonary hypertension (Chronic) Hypoxia (Chronic) (HFpEF) heart failure with preserved ejection fraction (Acute) Anxiety (Chronic) Dyspnea (Acute) Acute anemia (Acute) Postmenopausal bleeding (Acute) Dyspnea on exertion (Acute) S/P left inguinal hernia repair (Acute) 01/21/19 Dr Odette Cormier, leftLeft inguinal hernia (Acute) Incarcerated inguinal hernia, unilateral (Acute) Small bowel obstruction (Acute) Dehydration (Acute) Hypertension (Chronic) Change in mental status (Acute) Cardiomyopathy (Chronic) Iron deficiency anemia due to chronic blood loss (Chronic) COPD (chronic obstructive pulmonary disease) (Chronic) Medical History? Alcohol abuse History of alcohol abuse, reports sober since 2014Alcoholic gastritis Former smoker Hyponatremia Mood disorder with psychosis Neck pain on right side Palliative care patient Pneumonia Post-menopausal bleeding Pulmonary hypertension Respiratory failure with hypoxia Uterine mass Not candidate for surgery at [facility] or [facility].08/10/21. Had partial uterine artery embolization. Unable to complete 2/2 hypoxia. Surgical History? EGD - MAC (07/04/16) Coding
[2022-07-12] MEDS: Normal Saline Flush 10 ML SYR IVP (22:17)
[2022-07-13] VITALS (109 sets, daily range): BP systolic 84–158; BP diastolic 59–101; PULSE 61–153; RESP 8–53; TEMP 31–37.5; O2SAT 90–98
[2022-07-13] MEDS: VANCOMYCIN/WATER (PEG) 1 GM/200 ML BAG IVPB ×3 (00:30→23:59)
[2022-07-13] MEDS: MORPHine 2 MG/ML SYR 1 MG IVP (01:50)
[2022-07-13] MEDS: Metoprolol 5 MG/5 ML VIAL IVP ×3 (01:55→10:18)
[2022-07-13] MEDS: Ipratropium 0.5 MG/2.5 ML UPD VIAL UPD ×6 (02:09→22:13)
[2022-07-13] MEDS: LORazepam 2 MG/ML VIAL 1 MG IVP (04:17)
[2022-07-13 06:08] LABS: Abs Immature Grans 0.09 10^3/uL (0.0-0.06); Absolute Basophil Count 0.03 10^3/uL (0.0-0.2); Absolute Lymphocyte Count 0.76 10^3/uL (1.2-3.4); Absolute Monocyte Count 0.93 10^3/uL (0.1-0.8); Absolute Neutrophil Count 6.51 10^3/uL (1.2-6.7); Basophils % 0.4; HCT 38.3 % (36.0-46.0); HGB 10.9 g/dL (11.2-15.7); Immature Grans % 1.1; Lymphocytes % 9.1; MCH 26.5 pg (27.0-33.0); MCHC 28.5 % (32.0-36.0); MCV 93 fL (80-95); MPV 10.7 fL (8.0-11.0); Monocytes % 11.2; Neutrophils % 78.2; Platelet Count 171 10^3/uL (130-400); RBC 4.11 10^6/uL (3.93-5.22); RDW 15.3 % (11.7-14.6); RDW-SD 52.6 fL; WBC 8.32 10^3/uL (4.4-10.8)
[2022-07-13 06:23] LABS: Anion Gap 1.7 mmol/L (3-11); BUN 22 mg/dL (7-18); CO2 37.3 mmol/L (21.0-32.0); CREATININE 0.7 mg/dL (0.55-1.02); Chloride 102 mmol/L (98-107); Estimated GFR 97.12 (mL/min/1.73m2); Glucose 111 mg/dL (74-106); Potassium 4.4 mmol/L (3.5-5.1); Sodium 141 mmol/L (136-145)
[2022-07-13 06:31] LABS: Magnesium 2.2 mg/dL (1.8-2.4); Troponin I < 50 ng/L (<or=60)
[2022-07-13] MEDS: Budesonide 0.5 MG/2 ML UPD VIAL UPD ×2 (06:38→18:29)
--- NOTE | 2022-07-13 07:40 | W.PALPGNOTE ---
Date of service: 07/13/22 Time of Service: 07:40 Assessment and Plan Assessment and plan (1) Paroxysmal atrial fibrillation with RVR: Status: Acute (2) RSV (respiratory syncytial virus infection): Status: Acute (3) Renal insufficiency, mild: Status: Acute (4) Sepsis: Status: Acute (5) Palliative care encounter: Status: Acute Assessment and plan: Spoke with Evonne. She understands mom isn't doing well and that this is a viscous cycle and will keep recurring She plans to talk with dad today and is open to a family meeting to consider making her DNR/DNI. She senses her mom is dying, is tired and these intubations are not helping. Evonne will let Care MAnagement know when they are ready for a family meeting Елена does not look comfortable at this point. I know nursing has done everything they can to help her. She may need higher doses or more frequent dosing of morphine. It would not surprise me if she needs to be reintubated because of fatigue at some point. Hopefully her daughter Evonne will make the right decision. Subjective Subjective Interval history since last seen: Елена is now extubated. She is using her BiPAP. Staff states that she often times is not cooperative with necessary treatment. Daughter states that she has seen this. She understands how much her mother hates the mask. Exam Narrative Exam Narrative: Елена is squirming in her bed. She does not look comfortable but she has been receiving regular medication for this. Her blood pressure is elevated. She is tachypneic. She has tachycardia. She does cooperate with the exam somewhat but there is not a lot of airflow. Objective Last Vital Signs Temp 97.9 F 07/13/22 07:27 Pulse 123 H 07/13/22 07:31 Resp 53 H 07/13/22 07:31 BP 138/92 H 07/13/22 07:00 Pulse Ox 96 07/13/22 07:31 Laboratory Results - last 24 hr 07/12/22 07/12/22 07/13/22 12:05 15:09 05:20 WBC RBC Hgb Hct MCV MCH MCHC RDW Plt Count MPV Immature Gran % Neutrophils % Lymphocytes % Monocytes % Eosinophils % Basophils % Nucleated RBC % Absolute Neutrophils Absolute Lymphocytes Absolute Monocytes Absolute Eosinophils Absolute Basophils VBG pH 7.40 7.46 H VBG pCO2 66 H* 56 H VBG pO2 65 71 VBG HCO3 41 H 40 H VBG Total CO2 38 H 36 H VBG O2 Saturation 94 96 VBG Base Excess > 15 H > 15 H Sodium Potassium Chloride Carbon Dioxide Anion Gap BUN Creatinine Est GFR (CKD-EPI 2020) Glucose Calcium Magnesium 2.2 Troponin I < 50 07/13/22 07/13/22 05:20 05:20 WBC 8.32 RBC 4.11 Hgb 10.9 L Hct 38.3 MCV 93 MCH 26.5 L MCHC 28.5 L RDW 15.3 H Plt Count 171 MPV 10.7 Immature Gran % 1.1 Neutrophils % 78.2 Lymphocytes % 9.1 Monocytes % 11.2 Eosinophils % 0.0 Basophils % 0.4 Nucleated RBC % 0.0 Absolute Neutrophils 6.51 Absolute Lymphocytes 0.76 L Absolute Monocytes 0.93 H Absolute Eosinophils 0.00 Absolute Basophils 0.03 VBG pH VBG pCO2 VBG pO2 VBG HCO3 VBG Total CO2 VBG O2 Saturation VBG Base Excess Sodium 141 Potassium 4.4 Chloride 102 Carbon Dioxide 37.3 H Anion Gap 1.7 L BUN 22 H Creatinine 0.7 Est GFR (CKD-EPI 2020) 97.12 Glucose 111 H Calcium 9.0 Magnesium Troponin I
--- NOTE | 2022-07-13 08:43 | CMPROGNOTE_ITS ---
- If Service Date Differs Date of service: 07/13/22 Time of Service: 08:43 Care Management Progress Note S/O: Елена was successfully extubated yesterday and remains on BIPAP in the ICU. She is lethargic today and is not communicating much verbally. She was sleeping when CM went to meet with her. Per Dr. Cheney, there will be a family meeting with her daughter and tomorrow at 8am where the possibility of discharging home on hospice will be discussed. Елена's rhythm has been aflutter/a fib with HR 140's to 110's. She is afebrile and her WBC remains normal. A: Deepthi is a 61 year old female admitted to [facility] on 07/06/22 for COPD exacerbation. P: Елена's discharge plan is unclear at this time. She was intubated for several days and was finally extubated yesterday. A family meeting will be held tomorrow morning at 8am with Dr. Cheney and Dr. Wu along with Елена's daughter Evonne and Osmani. Depending on the course of events, the possibility of discharging home on hospice may be discussed. CM will continue to support Deepthi and her family and assess for discharge planning needs.
--- NOTE | 2022-07-13 10:05 | W.PM.PROGNOT ---
Date of Service Date of service: 07/13/22 Time of Service: 10:05 Assessment and Plan Assessment and plan (1) Acute and chronic respiratory failure: Status: Acute Assessment and plan: triggered by COPD exacerbation due to RSV (no clinical evidence for acute CHF exacerbation; she has hx of HFPEF) Extubated to BiPAP yesterday with the use of precedex. daily VBG pending Hold diuretics for now. Continue nebs, steroids. currently on broad spectrum antibiotics (Vancomycin, Ceftriaxone and Doxycycline, although no evidence for pneumonia on CXR nor clinically; afebrile, normal procalcitionin, minimal elevation of CRP); if her MRSA screen is negative then I will dc her Vancomycin; She had Ceftriaxone and doxycycline begun in the ER on 07/06 but then the doxycycline has been continued since admission. The Ceftriaxone was not renewed until yesterday. Consider dc Ceftriaxone after empiric 5 days of treatment but if her repeat procalcitonin remains normal, consider stopping all antibiotics. She has had adequate [facility] Palliative care on board - daughter states no transfer to a tertiary care facility for the next couple of days. No pulmonology coverage in house until 07/18/22. Critical care time spent interviewing and examining the patient, reviewing studies, Placing orders and documentation of care as well as discussing case with patient's nurse was 45 minutes (2) Sepsis: Status: Ruled-out Assessment and plan: Patient had febrile response on 07/11 but none since then. Ceftriaxone and Vancomycin were started on 07/12. CXR on 07/11 did not show infiltrates, procalcitonin has been repeatedly normal. Blood cultures on 07/11 demonstrated 1/2 bottles w/ Cn Staph probable contaminant. No evidence for sepsis; consider dc antibiotics and monitor her repsonse watching for fevers or rising inflammatory markers. (3) Paroxysmal atrial fibrillation with RVR: Status: Acute Assessment and plan: patient rhythm has been aflutter/afib w/ HR 140's to 110's. She has missed her amiodarone since yesterday. she is now on scheduled lopressor 5 mg iv q4h; will increase her dose to 7.5 mg; as amiodarone has long half life she can hold her oral dose for couple days until we see if she can wake up more to take po meds. If not then we will put her on reduced iv dose. As for her apixaban, I have switched her to enoxaparin 1 mg/kg SC Q 12H (4) COPD (chronic obstructive pulmonary disease): Status: Chronic Assessment and plan: As above Continue systemic steroids, scheduled + prn nebs, inhaled corticosteroids. Qualifiers: COPD type: COPD with acute exacerbation Qualified Code(s): J44.1 - Chronic obstructive pulmonary disease with (acute) exacerbation (5) (HFpEF) heart failure with preserved ejection fraction: Status: Acute Assessment and plan: Not currently in fluid overload Hold diuresis. Control rate. Qualifiers: Heart failure chronicity: acute on chronic Qualified Code(s): I50.33 - Acute on chronic diastolic (congestive) heart failure (6) Postmenopausal bleeding: Status: Acute Assessment and plan: Continue oral progesterone (7) Hyperkalemia: Status: Resolved Assessment and plan: Continue to monitor K. Hold spironolactone and ARB. (8) Hyponatremia: Status: Acute Assessment and plan: stable, mild, dilutional. Monitor now that diuresis was held. (9) Renal insufficiency, mild: Status: Acute Assessment and plan: Monitor Cr while diuresing. (10) Iron deficiency anemia due to chronic blood loss: Status: Chronic Assessment and plan: Holding PO iron for now (11) Mood disorder with psychosis: Assessment and plan: Did require prn IV lorazepam. For now, on precedex and doing well. May require IV lorazepam once off of precedex. (12) DVT prophylaxis: Status: Resolved Assessment and plan: DOAC switched to enoxaparin (13) Discharge planning issues: Status: Resolved Assessment and plan: Full code. Keep in ICU. Palliative care consulted. Total Critical Care Time 45 minutes. Subjective Subjective Interval history since last seen: Patient remains in the ICU requiring BiPAP. Patient was lethargic this morning she did not tolerate attempts at oral feedings. She remains in atrial fibrillation with rapid rates in the 110s up to 140. She has missed doses of her amiodarone and her apixaban. This point were going to switch her over to IV amiodarone as well as her IV metoprolol and started on enoxaparin until she is able to tolerate oral medications. She remains on low-dose Precedex for agitation although this morning she seems to be rather somnolent. Morning labs including VBG are pending at this time. She remains on broad-spectrum antibiotics with ceftriaxone doxycycline and vancomycin although her blood culture of coag negative staph in 1 bottle was read as probable contaminant. MRSA screen is pending at this time Exam Narrative Exam Narrative: Somnolent but arousable. She is oriented to person and place but not to time. Lungs with scattered expiratory wheezes no rhonchi or rales Heart is tachycardic irregular no appreciable murmur rub Abdomen soft nondistended normal bowel sounds nontender to palpation Extremities without peripheral cyanosis or edema Neuro exam grossly intact no focal motor deficits she is lethargic but arousable. Objective Last Vital Signs Temp 36.6 C 07/13/22 07:27 Pulse 123 H 07/13/22 07:31 Resp 53 H 07/13/22 07:31 BP 138/92 H 07/13/22 07:00 Pulse Ox 96 07/13/22 07:31 Laboratory Results - last 24 hr 07/12/22 07/12/22 07/13/22 12:05 15:09 05:20 WBC RBC Hgb Hct MCV MCH MCHC RDW Plt Count MPV Immature Gran % Neutrophils % Lymphocytes % Monocytes % Eosinophils % Basophils % Nucleated RBC % Absolute Neutrophils Absolute Lymphocytes Absolute Monocytes Absolute Eosinophils Absolute Basophils VBG pH 7.40 7.46 H VBG pCO2 66 H* 56 H VBG pO2 65 71 VBG HCO3 41 H 40 H VBG Total CO2 38 H 36 H VBG O2 Saturation 94 96 VBG Base Excess > 15 H > 15 H Sodium Potassium Chloride Carbon Dioxide Anion Gap BUN Creatinine Est GFR (CKD-EPI 2020) Glucose Calcium Magnesium 2.2 Troponin I < 50 07/13/22 07/13/22 05:20 05:20 WBC 8.32 RBC 4.11 Hgb 10.9 L Hct 38.3 MCV 93 MCH 26.5 L MCHC 28.5 L RDW 15.3 H Plt Count 171 MPV 10.7 Immature Gran % 1.1 Neutrophils % 78.2 Lymphocytes % 9.1 Monocytes % 11.2 Eosinophils % 0.0 Basophils % 0.4 Nucleated RBC % 0.0 Absolute Neutrophils 6.51 Absolute Lymphocytes 0.76 L Absolute Monocytes 0.93 H Absolute Eosinophils 0.00 Absolute Basophils 0.03 VBG pH VBG pCO2 VBG pO2 VBG HCO3 VBG Total CO2 VBG O2 Saturation VBG Base Excess Sodium 141 Potassium 4.4 Chloride 102 Carbon Dioxide 37.3 H Anion Gap 1.7 L BUN 22 H Creatinine 0.7 Est GFR (CKD-EPI 2020) 97.12 Glucose 111 H Calcium 9.0 Magnesium Troponin I
[2022-07-13] MEDS: Levalbuterol 1.25 MG/3 ML UPD VIAL UPD ×3 (10:11→18:30)
[2022-07-13] MEDS: DOXYCYCLINE 100 MG in Normal Saline 100 ML IVPB ×2 (10:17→21:20)
[2022-07-13] MEDS: dexmedeTOMidine IN 0.9 % NACL 400 MCG/100 ML BTL 9.65 MCG IVPB ×2 (10:17→20:39)
[2022-07-13] MEDS: Pantoprazole 40 MG VIAL IVP (10:18)
[2022-07-13] MEDS: methylPREDNISolone SUCC 40 MG VIAL IVP (10:18)
[2022-07-13] MEDS: Enoxaparin 80 MG/0.8 ML SYR SC ×2 (10:49→21:18)
[2022-07-13 10:57] LABS: BE (Venous) 15 mmol/L (-2-3); HCO3 (Venous) 39 mmol/L (23-28); O2 Sat (Venous) 71 %; TCO2 (Venous) 37 mmol/L (24-29); pH (Venous) 7.41 (7.31-7.41); pO2 (Venous) 38 mmHg
[2022-07-13 10:59] LABS: Lab Add On Test DONE
[2022-07-13 11:03] LABS: pCO2 (Venous) 62 mmHg (41-51)
[2022-07-13 11:15] LABS: C-Reactive Protein 0.73 mg/dL (0.0-0.3)
[2022-07-13 11:32] LABS: Procalcitonin < 0.1 ng/mL
[2022-07-13] MEDS: cefTRIAXone 2 GM/50 ML BAG IVPB (12:39)
[2022-07-13] MEDS: Methylnaltrexone 12 MG/0.6 ML VIAL SC (14:45)
[2022-07-13] MEDS: Metoprolol 5 MG/5 ML VIAL 7.5 MG IVP ×3 (14:45→21:19)
[2022-07-13] MEDS: Lacri-Lube 3.5 GM TUBE OU (21:18)
[2022-07-14] VITALS (12 sets, daily range): BP systolic 112–163; BP diastolic 57–101; PULSE 53–95; RESP 8–40; TEMP 31–36.9; O2SAT 40–95
[2022-07-14] MEDS: Metoprolol 5 MG/5 ML VIAL 7.5 MG IVP ×2 (02:08→05:47)
[2022-07-14] MEDS: Ipratropium 0.5 MG/2.5 ML UPD VIAL UPD ×2 (02:09→05:46)
[2022-07-14] MEDS: MORPHine 2 MG/ML SYR 1 MG IVP ×2 (05:44→05:56)
[2022-07-14] MEDS: Budesonide 0.5 MG/2 ML UPD VIAL UPD (05:46)
[2022-07-14] MEDS: LORazepam 2 MG/ML VIAL 1 MG IVP (05:56)
--- NOTE | 2022-07-14 06:06 | W.EVENT ---
Date of service: 07/14/22 Time of Service: 06:06 Event Note: Responded to a rapid response called overhead as well as ICU page which happened simultaneously. The patient had taken off her BiPAP verbalizing she did not want it anymore to nursing. She had also verbalized to respiratory therapist she did not want to be intubated. By my arrival to her bedside, Deepthi was not verbalizing. She was being bag-masked with O2 sats in the 20s. I called her daughter Evonne and discussed above happenings. Decision was made to place Deepthi on comfort measures. Corresponding ordered entered in EMR. Time Spent with Patient Time spent in critical care(minutes): 21 Time Spent Included: Coordination of care, Chart review, Documenting critically ill care, Time at immediate bedside and Discussing Hx and/or treatment with family
--- NOTE | 2022-07-14 06:33 | W.PM.DDS ---
Date of service: 07/14/22 Time of Service: 06:33 Discharge Plan Disposition Patient Disposition: Condition: Stable Discharge Details Reason For Visit: COPD exacerbation Admit Date/Time: 07/06/22 11:44 Admit Provider: Hardy Eagle Attending Provider: Hardy Eagle Primary Care Provider: [facility] Hospital Course Hospital Course: Ms Hernandez was a 61 year old female with PMHx of chronic hypoxic hypercapnic respiratory failure due to COPD, using a trilogy machine at night, with prior admissions requiring intubation, as well as h/o CHFpEF, pulmonary hypertension, paroxysmal Afib on amidoarone and xarelto, who was admitted to [facility] ICU under the hospitalist service on 07/06/22 with acute on chronic hypoxic hypercapnic respiratory failure due to a COPD exacerbation triggered by RSV as well as a component of fluid overload/CHF. She was placed on BiPAP, but developed toxic metabolic encephalopathy due to hypercapnea and was not able to keep the BiPAP on consistently; nor was it resolving her respiratory acidosis despite changing of settings. She was also being treated with scheduled and prn nebs, systemic and nebulized steroids. She was intubated on 07/07/22. She actually did rather well on the ventilator, but had difficulty with spontaneous breathing trials on 07/11/22 and 07/12/22, only able to tolerate about 8 minutes each day. On 07/13/22, we used precedex to help with the weaning trial while titrating the propofol down. The patient was able to sustain independent breathing for about 5 hrs, at which point a decision was made to extubate to BiPAP. The patient would desaturate off of bipap, when attempted. This morning, a rapid response was called when she took the BiPAP off, verbalizing to nursing and RT that she did not want the BiPAP anymore and would not want to be re-intubated. The patient did have palliative care following along on this admission and a conversation had already begun about changing the code status to DNR/DNI and that intubations were not helping. I spoke with the patient's DPOA, Evonne, who gave permission to initiate comfort measures. The patient peacefully at 06:12 am and was pronounced at 06:15. Among other issues on this admisson, Deepthi did have several bouts of rapid Afib. She had one positive blood culture (coag negative staph), which was likely a contaminant and did not represent a true infectious process. While speciation was pending, she was covered with empiric broad spectrum antibiotics. We appreciate the opportunity to help take care of Ms Hernandez in her final days and wish her family well. Home Meds and New Rx's Prescriptions: No Action multivitamin Tablet 1 tab PO DAILY Label Comments: take 1 tablet by mouth once daily Stiolto Respimat 2.5-2.5 mcg/actuation Mist 2 puff INHALATION DAILY lorazepam 0.5 mg tablet 0.5 mg PO BID PRN PRN Label Comments: TAKE 1 TABLET BY MOUTH EVERY DAY NEEDED FOR PANIC nystatin [Nystop] 100,000 unit/gram powder 1 applic TOPICAL DIRECTED Label Comments: APPLY A SMALL AMOUNT TO AFFECTED AREA 2-3 TIMES A DAY UNTIL HEALED Rx Instructions: APPLY A SMALL AMOUNT TO SKIN 2-3 TIMES PER DAY UNTIL HEALED fluticasone propionate [Flovent HFA] 220 mcg/actuation HFA aerosol inhaler 1 puff INHALATION BID Label Comments: INHALE 1 PUFF BY MOUTH TWICE DAILY WITH STIOLTO metoprolol succinate 100 mg Tablet Extended Release 24 Hr 200 mg PO HS Qty: 60 0RF amiodarone [Pacerone] 200 mg Tablet 200 mg PO DAILY Qty: 30 0RF ascorbic acid (vitamin C) [Vitamin C] 500 mg Tablet 500 mg PO BID Qty: 0 0RF eszopiclone 2 mg Tablet 2 mg PO HS Qty: 30 0RF Inhaler, Assist Devices [Pocket Chamber] 1 ea miscellaneous DIRECTED Qty: 0 0RF torsemide 20 mg Tablet 20 mg PO BID Qty: 60 0RF spironolactone 25 mg Tablet 25 mg PO DAILY Qty: 30 0RF ipratropium bromide 0.02 % Solution 0.25 mg UPD BID Qty: 60 0RF fluoxetine 20 mg Capsule 10 mg PO DAILY acetaminophen 325 mg Tablet 650 mg PO PRN PRN ferrous sulfate 325 mg (65 mg iron) tablet 1 tab PO DAILY Label Comments: Take 1 tablet by mouth once a day losartan 25 mg tablet 1 tab PO DAILY Label Comments: TAKE ONE TABLET BY MOUTH EVERY DAY albuterol sulfate [ProAir HFA] 90 mcg/actuation HFA aerosol inhaler 2 inh INHALATION Q4H PRN PRN Label Comments: Inhale 2 puff by mouth every four to six hours as needed pantoprazole 40 mg tablet,delayed release (DR/EC) 1 tab PO 0730 Label Comments: TAKE ONE TABLET BY MOUTH ONCE DAILY AT 730 IN THE MORNING capsaicin 0.025 % cream 1 applic TOPICAL BID Label Comments: Apply as directed to affected area twice a day to feet for nerve pain ondansetron 4 mg tablet,disintegrating 1 tab PO Q6H PRN (Reason: Nausea) Label Comments: TAKE ONE TABLET BY MOUTH EVERY 6 HOURS NEEDED FOR NAUSEA Xarelto 20 mg tablet 1 tab PO DAILY Label Comments: Take 1 tablet by mouth once a day magnesium oxide 400 mg (241.3 mg magnesium) tablet 500 mg PO HS norethindrone acetate 5 mg tablet 5 mg PO BID Discharge Data Cause of : Respiratory failure with hypoxia and hypercapnia Discharge Sum: Prov Provider Primary care physician: Hardy Eagle Admitting clinician: Hardy Eagle Attending physician on admission: Hardy Eagle Consults: 07/07/22 09:06 Palliative Care Consult [CONS] Routine Consultation Status:: Follow-up needed Clarification:: Manage/follow per spec. Reason for consult:: recurrent admissions to the ICU with respiratory failure. Discuss goals of care 07/12/22 13:57 Speech Therapy Consult [CONS] Routine Consulting Provider: [facility] Type of Consult: Swallow Check all that apply: High Risk choke/asp/PNA NPO, awaiting BROADCAST MAINTENANCE ENGINEER eval Pronouncing clinician: Laura Mars Discharge Sum: Diag PCOD Cause of : Acute on chronic respiratory failure with hypoxia and hypercapnia Contributing Factors (1) RSV infection: (2) COPD (chronic obstructive pulmonary disease): Contributing factors: in acute exacerbation (3) (HFpEF) heart failure with preserved ejection fraction: (4) Paroxysmal atrial fibrillation with RVR: (5) Postmenopausal bleeding: (6) Hyperkalemia: (7) Hyponatremia: (8) Renal insufficiency, mild: (9) Iron deficiency anemia due to chronic blood loss: (10) Mood disorder with psychosis: Discharge Sum: Summary Date and Time Admission Date: 05/10/2212/22/22 11:44 Date of : 07/14/22 Time of : 06:12 Summary Details: Ms Hernandez was a 61 year old female with PMHx of chronic hypoxic hypercapnic respiratory failure due to COPD, using a trilogy machine at night, with prior admissions requiring intubation, as well as h/o CHFpEF, pulmonary hypertension, paroxysmal Afib on amidoarone and xarelto, who was admitted to [facility] ICU under the hospitalist service on 07/06/22 with acute on chronic hypoxic hypercapnic respiratory failure due to a COPD exacerbation triggered by RSV as well as a component of fluid overload/CHF. She was placed on BiPAP, but developed toxic metabolic encephalopathy due to hypercapnea and was not able to keep the BiPAP on consistently; nor was it resolving her respiratory acidosis despite changing of settings. She was also being treated with scheduled and prn nebs, systemic and nebulized steroids. She was intubated on 07/07/22. She actually did rather well on the ventilator, but had difficulty with spontaneous breathing trials on 07/11/22 and 07/12/22, only able to tolerate about 8 minutes each day. On 07/13/22, we used precedex to help with the weaning trial while titrating the propofol down. The patient was able to sustain independent breathing for about 5 hrs, at which point a decision was made to extubate to BiPAP. The patient would desaturate off of bipap, when attempted. This morning, a rapid response was called when she took the BiPAP off, verbalizing to nursing and RT that she did not want the BiPAP anymore and would not want to be re-intubated. The patient did have palliative care following along on this admission and a conversation had already begun about changing the code status to DNR/DNI and that intubations were not helping. I spoke with the patient's DPOA, Evonne, who gave permission to initiate comfort measures. The patient peacefully at 06:12 am and was pronounced at 06:15. Among other issues on this admisson, Deepthi did have several bouts of rapid Afib. She had one positive blood culture (coag negative staph), which was likely a contaminant and did not represent a true infectious process. While speciation was pending, she was covered with empiric broad spectrum antibiotics. We appreciate the opportunity to help take care of Ms Hernandez in her final days and wish her family well. Additional Data Confirmation of as documented by pronouncing clinician: no pulse, no respirations, no heart sounds and pupils fixed and dilated Family: contacted Attending/PCP notified?: Yes Attending Physician: Hardy Hill Was code activated?: No Autopsy requested?: No white shoe examiner notified?: No Organ bank notified?: Yes Advance directives: Yes Hospice patient?: No
--- NOTE | 2022-07-14 09:03 | NUR.NOTE ---
Nursing Note: This technical report writer called [facility] at 06:45,spoke with Jewels Laura. Patient's and daughter at bedside, patient's eye glass handed over to daughter. Informed commercial announcer Jane Charlton per request of patient's daughter Evonne Hernandez through supervisor sanding. Family wanted to move the body to [facility]. Informed them about the same. 07:15- ELECTRICAL PROSPECTING OBSERVER SRoger Castellano removed all PIV X3 and Blanchard's cath,wrapped body in the bodybag. 07:55- Patien's body was taken by Devyn Mills to [facility] by rama. Completed Record of form.
--- NOTE | 2022-07-14 14:41 | CHAPLAIN ---
I was called in my ICU nursing staff this morning about 6:30 a.m., letting me know that Елена had and her Osmani, and daughter Evonne, were here and asked for internet merchant support. Елена has been in the ICU for several days and been intubated. Osmani and Evonne were sitting with her when I arrived. They talked about coming in this morning and being surprised that Елена had , even though we knew it was coming. We talked about how anticipated deaths still seem like sudden deaths. Osmani shared a bit about how they met and . I offered to say a prayer if they wanted that, but they declined. They asked about next steps and then said they wanted [facility] contacted as they planned to use the cremation services at [facility]. They did not want to stay until the home staff arrived. I offered support and let them know how to reach me.
== END 2022-07-14 07:55 | disposition expired | DRG 207 ==
LOC: ER 13:51 → ICU 14:12
PROVIDERS: Family Medicine; General Practice; Internal Medicine; Physician Assistant; Admitting Provider Family Medicine; Emergency Provider Emergency Medicine; PCP Family Medicine; Visit Provider Family Medicine
DX: J44.1 Chronic obstructive pulmonary disease with (acute) exacerbation (principal); I50.33 Acute on chronic diastolic (congestive) heart failure; J96.21 Acute and chronic respiratory failure with hypoxia; J96.22 Acute and chronic respiratory failure with hypercapnia; E87.1 Hypo-osmolality and hyponatremia; I42.9 Cardiomyopathy, unspecified; I48.0 Paroxysmal atrial fibrillation; D50.0 Iron deficiency anemia secondary to blood loss (chronic); E87.5 Hyperkalemia; B97.4 Respiratory syncytial virus as the cause of diseases classified elsewhere; N28.9 Disorder of kidney and ureter, unspecified; F39 Unspecified mood [affective] disorder; I65.29 Occlusion and stenosis of unspecified carotid artery; I77.9 Disorder of arteries and arterioles, unspecified; I27.20 Pulmonary hypertension, unspecified; F41.9 Anxiety disorder, unspecified; E86.0 Dehydration; I11.0 Hypertensive heart disease with heart failure; N95.0 Postmenopausal bleeding; F10.11 Alcohol abuse, in remission; Z87.891 Personal history of nicotine dependence; N85.8 Other specified noninflammatory disorders of uterus; Z78.1 Physical restraint status; R50.9 Fever, unspecified; Z51.5 Encounter for palliative care
CPT/HCPCS: 31500; 36410; 36415; 51702; 80048; 80053; 82805; 84145; 87040; 87077; 87081; 87637; 93005; 94640; 95822; 96365; 96367; 96375; 96376; 99285; 71045; 74018; 81003; 81015; 83605; 83735; 83880; 84100; 84484; 85025; 85610; 85730; 86140; 87086; 87186; 93010; 94002; 94003; 94660; 95816; 99239; 99291; J0131; J1100; J1650; J1940; J2060; J2270; J2704; J7614; J7620; J7626; J7644